=== PATIENT | male | born 1950 | race African-American/Black ===

== ENCOUNTER 2021-05-09 10:12 | Inpatient (IN) | payer OTHER, SELFPAY ==
[2021-05-09] VITALS (15 sets, daily range): BP systolic 149–190; BP diastolic 81–112; PULSE 73–86; RESP 15–20; TEMP 36.4–37.2; O2SAT 96–98; BMI 23.6; BMI 21.5
--- NOTE | 2021-05-09 10:15 | NURSING ---
STROKE ALERT CALLED PRIOR TO ARRIVAL [id number]
--- NOTE | 2021-05-09 10:15 | NURSING ---
NO OLD EKGS
--- NOTE | 2021-05-09 10:16 | EKG12_ITS ---
Test Reason : STROKE Blood Pressure : / mmHG Vent. Rate : 076 BPM Atrial Rate : 076 BPM P-R Int : 164 ms QRS Dur : 084 ms QT Int : 398 ms P-R-T Axes : 068 043 014 degrees QTc Int : 447 ms Normal sinus rhythm Nonspecific ST and T wave abnormality Abnormal ECG Confirmed by CHELSEA HERBERT, FARAZ ([id number]), avid editor KATIE ABRAHAM ([id number]) on 05/11/2021 10:01:56 AM Referred By: FAUSTO Confirmed By:FARAZ TRAN MD
--- NOTE | 2021-05-09 10:16 | RAD_ITS ---
STUDY: X-RAY CHEST REASON FOR EXAM: Male, 70 years old. Neuro deficit, acute, stroke suspected TECHNIQUE: Single AP portable view of the chest. COMPARISON: None. FINDINGS: EKG electrodes are seen. There is evidence of increased markings in the upper lobes with volume loss and retraction of the gilmar suggestive of scarring in both upper lobes worse on the right side. Mild degree of increased markings at the lung bases suggestive of scarring. Normal size heart. Normal mediastinum and gilmar. Normal visualized pulmonary arteries. There is atherosclerotic calcification of the aortic arch with tortuosity. There are diffuse degenerative changes of the visualized thoracic spine. Normal visualized ribs, clavicles, and shoulders. There is no demonstrated abnormality of the visualized soft tissue structures of the upper abdomen. RAD/Chest 1 View IMPRESSION: Increased markings in the upper lobes with retraction of the gilmar and volume loss in the upper lobes suggestive of the upper lobe scarring more prominent on the right side. Electronically Signed: Lion Santos MD at 12:25 EDT , Service support ,
--- NOTE | 2021-05-09 10:16 | CT_ITS ---
STUDY: CT HEAD STROKE PROTOCOL W/O CONTRAST INJECTION REASON FOR EXAM: Male, 70 years old. Neuro deficit, acute, stroke suspected RADIATION DOSAGE (If Supplied By Facility): CTDIvol = ( 44.99 ) mGy, DLP = ( 812.98 ) mGycm TECHNIQUE: Transaxial CT imaging of the brain was performed without administration of intravenous contrast material. Individualized dose optimization techniques were used for this CT. COMPARISON: No relevant priors. FINDINGS: Normal soft tissue structures. Normal calvarium. There is mild cerebral atrophy with widening of the extra-axial spaces and ventricular dilatation. There are areas of decreased attenuation within the white matter tracts of the supratentorial brain, consistent with microvascular disease changes. There is evidence of a 0.7 cm x 3.1 cm focus of edema in the posterior right parietal lobe within the white matter. Correlation with contrast-enhanced CT scan of the brain is recommended. Old lacunar heart and the left basal ganglia. Normal brainstem. Normal cerebellum. There is no intracranial hemorrhage. There are no findings of an acute ischemic infarction. Mild mucosal thickening along the posterior aspect of the left ethmoid sinus. CT/STROKE Brain/Head without Cont IMPRESSION: Chronic involutional changes of the brain. Focal area of deep white matter edema in the posterior right parietal lobe as described. Correlation with the enhanced CT scan is recommended. N.B. : The above Results were Read Back by Lion Santos MD to Steven Tejeda and understanding confirmed on 05/09/2021 10:33:28 (ET). Electronically Signed: Lion Santos MD at 10:34 EDT , Service support ,
--- NOTE | 2021-05-09 10:16 | CT_ITS ---
We are attempting to reach an attending provider to discuss findings. An addendum with communication details will be sent when the communication is complete. STUDY: CTA HEAD AND NECK WITH CONTRAST REASON FOR EXAM: Male, 70 years old. Neuro deficit, acute, stroke suspected RADIATION DOSAGE (If Supplied By Facility): CTDIvol = ( 51.15 ) mGy, DLP = ( 757.26 ) mGycm TECHNIQUE: CT angiography was performed with a multi-detector CT scanner. Data acquisition was obtained from the skull base through the vertex following intravenous administration of IV 100mL [id number]-370. MIP images were reconstructed from the axial data set. Post-processing of the angiographic images was performed, with multiplanar reformation and 3D reconstruction. Individualized dose optimization techniques were used for this CT. COMPARISON: No relevant priors. FINDINGS: Normal bilateral petrous carotid arteries. There is calcified plaque formation of the right cavernous carotid artery, without a cross-sectional luminal stenosis. There is calcified plaque formation of the left cavernous carotid artery, without a cross-sectional luminal stenosis. Normal right A1 segments of the anterior cerebral artery. Normal left A1 segments of the anterior cerebral artery. Normal intact anterior communicating artery (ACOM). Normal bilateral A2 segments of the anterior cerebral arteries. Normal right M1 and M2 segments of the middle cerebral arteries, with a normal M1 bifurcation. Normal left M1 and M2 segments of the middle cerebral arteries, with a normal M1 bifurcation. Normal right posterior communicating artery (PCOM). Normal left posterior communicating artery (PCOM). Normal bilateral vertebral arteries. Normal basilar artery with a normal basilar bifurcation. The visualized bilateral superior cerebellar (SCA) arteries are normal. Normal bilateral P1, P2 and visualized P3 segments of the posterior cerebral arteries. There is no demonstrated aneurysm of the [place]. AORTIC ARCH: There is a mild degree of atherosclerotic calcific plaque formation of the aortic arch and great vessels arising from the aortic arch, without a hemodynamically significant stenosis. There is a normal origin of the brachiocephalic, left common carotid, and left subclavian arteries. RIGHT CAROTID ARTERIES: Normal right common carotid artery (CCA). Normal right common carotid bulb. Normal origin of the right internal carotid (ICA) artery without a hemodynamically significant stenosis. Normal visualized cervical portion of the right internal carotid artery. Normal origin of the right external carotid artery (ECA). LEFT CAROTID ARTERIES: Normal left common carotid artery (CCA). Normal left common carotid bulb. There is moderate atherosclerotic plaque formation of the origin of the left internal carotid artery with an estimated stenosis of 50-69% stenosis. Normal visualized cervical portion of the left internal carotid artery. Normal origin of the left external carotid artery (ECA). VERTEBRAL ARTERIES: There is enhancement within the bilateral vertebral arteries with a small left vertebral artery, and a dominant right vertebral artery. CT/STROKE CTA Head AND Neck W/Con IMPRESSION: Calcific plaque at the origin of the left internal carotid artery causing between 50 and 69% narrowing. Electronically Signed: Lion Santos MD at 10:44 EDT , Service support ,
[2021-05-09 10:37] LABS: Absolute Neutrophil Count 5.8 X10^3/uL (2.0-7.7); Basophil# 0.03 X10^3/uL; Basophil% 0.3 % (0-1); Eosinophil# 0.21 X10^3/uL; Eosinophils% 2.1 % (0-5); Hematocrit 47.2 % (40-54); Hemoglobin 14.3 g/dL (13.0-16.5); Lymphocyte % 36.3 % (19-41); Mean Corp Hgb Conc 30.3 g/dL (32-36); Mean Corpuscular Hgb 22.4 pg (27.0-32.0); Mean Corpuscular Volume 73.9 fL (80-94); Monocyte# 0.41 X10^3/uL; NRBC Flagged by Analyzer 0 % (0-5); Neutrophil # 5.78 X10^3/uL (2.7-7.7); Neutrophil % 56.7 % (47-70); Platelet Count 192 K/mm3 (150-450); RBC Distribution Width CV 17.7 % (11.6-14.6); Red Blood Count 6.39 M/mm3 (4.6-6.2); White Blood Count 10.2 K/mm3 (4.4-11.0)
[2021-05-09 10:44] LABS: Prothrombin Time (Protime)PT. 12.4 SECONDS (11.7-14.9)
[2021-05-09 10:45] LABS: Partial Thromboplast Time 25.3 Seconds (24.1-36.2)
[2021-05-09] MEDS: 0.9% Normal Saline 1,000 ML 100 ML IV (10:49)
[2021-05-09] MEDS: Labetalol (Prefilled) 20 MG/4 ML IV (10:50)
--- NOTE | 2021-05-09 10:57 | NURSING ---
CHEMISTRIES HEMOLIZED
--- NOTE | 2021-05-09 11:00 | CT_ITS ---
STUDY: CT BRAIN WITHOUT CONTRAST REASON FOR EXAM: Male, 70 years old. Stroke RADIATION DOSAGE (If Supplied By Facility): CTDIvol = ( 44.99 ) mGy, DLP = ( 762.36 ) mGycm TECHNIQUE: Transaxial CT imaging of the brain was performed without administration of intravenous contrast material. Individualized dose optimization techniques were used for this CT. COMPARISON: Comparison is made with prior examination done earlier today. FINDINGS: Normal soft tissue structures. Normal calvarium. There is mild cerebral atrophy with widening of the extra-axial spaces and ventricular dilatation. There are areas of decreased attenuation within the white matter tracts of the supratentorial brain, consistent with microvascular disease changes. Stable appearance of the decreased attenuation in the deep white matter of the posterior right parietal lobe. No significant enhancement is seen. This may represent old ischemic insult. Normal brainstem. Normal cerebellum. There is no intracranial hemorrhage. There are no findings of an acute ischemic infarction. Normal visualized paranasal sinuses. CT/Brain/Head without Contrast IMPRESSION: Findings suggestive of old ischemic insult in the deep white matter of the posterior right parietal lobe. Electronically Signed: Lion Santos MD at 12:00 EDT , Service support ,
--- NOTE | 2021-05-09 11:06 | ED.VIS.STROK ---
HPI History of Present Illness Chief Complaint: Neuro S/Sx Informant: patient and EMS Onset/Context/Timing Onset: Today Context: Sudden Onset Timing: Continuous Quality and Location: Positive for Right Arm Weakness, Left Arm Weakness, Right Leg Weakness and Left Leg Weakness Onset: 30 minutes prior to arrival Worsened by: Nothing Relieved by: Nothing Narrative Narrative: Patient presents with headache and confusion that began today at work. EMS reports that this started approximately 30 minutes prior to arrival. Patient states his headache was over the frontal area. Patient states someone gave him some Tylenol but this did not help. Patient was also having some confusion and weakness. Patient states it was both arms and legs that were weak. EMS reports that the patient had some ataxia with hbvegl-je-evge testing. Patient also admits to some blurred vision. PFSH PFSH Medical History Anxiety COPD (chronic obstructive pulmonary disease) Diabetes Hepatitis Hypertension Smoker Home Medications gabapentin 300 mg PO TID 02/24/15 [History Last Taken Unknown] glipizide 8 mg PO DAILY 02/24/15 [History Last Taken Unknown] albuterol 2 puff NASAL Q4H PRN 05/09/21 [History Last Taken Unknown] amlodipine 5 mg PO QHS 05/09/21 [History Last Taken Unknown] aspirin 81 mg PO DAILY 05/09/21 [History Last Taken Unknown] atorvastatin 20 mg PO QHS 05/09/21 [History Last Taken Unknown] budesonide-formoterol [Symbicort] 2 puff INHALATION BID 05/09/21 [History Last Taken Unknown] cyclobenzaprine 10 mg PO TID PRN 05/09/21 [History Last Taken Unknown] losartan 50 mg PO DAILY 05/09/21 [History Last Taken Unknown] mecobalamin (vitamin B12) 500 mcg PO DAILY 05/09/21 [History Last Taken Unknown] metformin 2,000 mg PO DAILY 05/09/21 [History Last Taken Unknown] sildenafil 100 mg PO DAILY PRN 05/09/21 [History Last Taken Unknown] trazodone 25 mg PO QHS 05/09/21 [History Last Taken Unknown] vitamin E 200 unit PO DAILY 05/09/21 [History Last Taken Unknown] Allergy/AdvReac Type Severity Reaction Status Date / Time No Known Allergies Allergy Verified 05/09/21 10:35 Family History (Updated 05/09/21 @ 13:[address] Uche Felix MD) Mother CVA (cerebral vascular accident) Surgical History (Updated 05/09/21 @ 15:13 by Carlene Dyer) Hx of appendectomy Social History Smoking Status: Current every day smoker tobacco type: cigarettes ROS ROS ED Constitutional Constitutional ED: Denies chills or fever(s) Eyes Eyes: Denies blurry vision or change in vision ENT ENT ED: Denies rhinorrhea or sore throat Cardiovascular Cardiovascular: Denies chest pain or palpitations Respiratory/Chest Respiratory/Chest: Denies cough or dyspnea Gastrointestinal Gastrointestinal: Denies nausea or vomiting Genitourinary Genitourinary ED: Denies dysuria or hematuria Musculoskeletal Musculoskeletal: Denies back pain or neck pain Integumentary Denies abscess or rash Neurologic Neurologic: Reports headache(s) and weakness Allergic/Immunologic Allergic/Immunologic ED: Denies mouth swelling or urticaria EXAM Physical Exam Const Vital Signs: 05/09/21 10:13 05/09/21 10:27 05/09/21 10:32 Temperature 98.1 F Temperature Source Temporal Pulse Rate 80 86 Respiratory Rate 16 20 H Blood Pressure 185/112 H 172/111 H Blood Pressure Mean 136 131 Pulse Ox 97 96 Oxygen Delivery Method Room Air Room Air Room Air 05/09/21 10:46 05/09/21 11:30 05/09/21 12:00 Temperature Temperature Source Pulse Rate 77 79 81 Respiratory Rate 15 18 18 Blood Pressure 190/105 H 156/92 H 156/92 H Blood Pressure Mean 133 113 113 Pulse Ox 98 Oxygen Delivery Method Room Air Positive well nourished and well developed General Appearance ED: well developed HEENT Reports moist mucous membranes atraumatic Eyes PERRL and EOMs intact bilaterally Neck supple and no JVD Resp normal respiratory effort and clear to auscultation bilaterally Cardio Rate: regular rate Rhythm: regular rhythm GI normal to inspection, nondistended, normoactive bowel sounds, soft to palpation and non-tender Extremity normal to inspection General Extremety ED: Negative for deformity or tenderness General Extremity: Negative for deformity Neuro CN's II-XII intact bilaterally and no sensory deficits noted Neuro Narrative: Patient is slightly confused on the day. Patient states it is Saturday when it is actually Saturday. [place] Coma Scale: document GCS findings Spontaneous Obeys Commands Oriented 15 Sensorium / Orientation: alert, oriented to person and oriented to place Cranial Nerves: other Patient had slight difficulty with hyxvqf-qd-klic testing bilaterally. Yndd-gh-zvju was intact. Speech: speech normal Motor Exam: strength 5/5 throughout Psych mental status grossly normal STROKE Vital Signs/Narrative: Vital Signs Temp Pulse Resp BP Pulse Ox 05/09/21 12:00 81 18 156/92 H 98 05/09/21 11:30 79 18 156/92 H 05/09/21 10:46 77 15 190/105 H 05/09/21 10:27 86 20 H 172/111 H 96 05/09/21 10:13 98.1 F 80 16 185/112 H 97 MDM MDM MDM Narrative Medical decision making narrative: Initial CT scan of the brain shows a focal area of white matter edema in the posterior right parietal lobe. Correlation with contrast was recommended. CTA of the head neck was obtained. There is no acute intracranial bleeding, aneurysm, or large vessel occlusion. Brain CT was repeated after this after the contrast was used for a CTA. There is an old ischemic insult in the deep white matter of the posterior right parietal lobe. These were interpreted by the radiologist and reviewed by myself. Portable 1 view chest x-ray was obtained. On my interpretation, lung hein showed chronic changes. There is normal cardiac silhouette. Bony thorax is normal. There is no acute process noted. Radiologist also interpreted the x-ray and agrees. EKG was obtained. On my interpretation, it showed a normal sinus rhythm with a rate of 76. HI interval, QRS interval, and QTc intervals were all normal. Stewart was normal. There are nonspecific ST-T wave changes. CBC was within normal limits. PT with INR and PTT were normal. Basic metabolic profile showed a slightly elevated creatinine of 1.35. Glucose was slightly elevated to 79. Stroke neurologist from [facility] evaluated the patient. At that time patient had a NIH score of 0. He did recommend giving the patient TPA. Case was discussed with the hospitalist. Patient will be admitted here. Patient is agreeable with the plan. All questions were answered. Lab Data Attestation: I reviewed the patient's lab results. Labs: Laboratory Results - last 24 hr 05/09/21 05/09/21 05/09/21 10:20 10:20 10:20 WBC 10.2 RBC 6.39 H Hgb 14.3 Hct 47.2 MCV 73.9 L MCH 22.4 L MCHC 30.3 L RDW Std Deviation 43.0 RDW Coeff of Tiffany 17.7 H Plt Count 192 MPV TNP Immature Gran % (Auto) 0.600 Neut % (Auto) 56.7 Lymph % (Auto) 36.3 Tucker % (Auto) 4.0 Eos % (Auto) 2.1 Baso % (Auto) 0.3 Absolute Neuts (auto) 5.8 Absolute Lymphs (auto) 3.70 Nucleated RBC % 0 PT 12.4 INR 1.0 APTT 25.3 Sodium Cancelled Potassium Cancelled Chloride Cancelled Carbon Dioxide Cancelled Anion Gap Cancelled BUN Cancelled Creatinine Cancelled Estim Creat Clear Calc Cancelled Est GFR (MDRD) Af Amer Cancelled Est GFR (MDRD) Non-Af Cancelled BUN/Creatinine Ratio Cancelled Glucose Cancelled Calcium Cancelled Troponin I Cancelled 05/09/21 11:30 WBC RBC Hgb Hct MCV MCH MCHC RDW Std Deviation RDW Coeff of Tiffany Plt Count MPV Immature Gran % (Auto) Neut % (Auto) Lymph % (Auto) Tucker % (Auto) Eos % (Auto) Baso % (Auto) Absolute Neuts (auto) Absolute Lymphs (auto) Nucleated RBC % PT INR APTT Sodium 134 L Potassium 4.2 Chloride 99 Carbon Dioxide 27.0 Anion Gap 8 BUN 19 H Creatinine 1.35 H Estim Creat Clear Calc 55.90 Est GFR (MDRD) Af Amer 67 Est GFR (MDRD) Non-Af 55 L BUN/Creatinine Ratio 14.1 Glucose 279 H Calcium 9.3 Troponin I < 0.015 Radiography Diagnostic Testing: Radiology Impression Brain CT 05/09/21 10:16 IMPRESSION: Chronic involutional changes of the brain. Focal area of deep white matter edema in the posterior right parietal lobe as described. Correlation with the enhanced CT scan is recommended. N.B. : The above Results were Read Back by Lion Santos MD to Steven Tejeda and understanding confirmed on 05/09/2021 10:33:28 (ET). Electronically Signed: Lion Santos MD at 10:34 EDT , Service support , ADDENDUM: 05/09/21 1041 IMPRESSION: Chronic involutional changes of the brain. Focal area of deep white matter edema in the posterior right parietal lobe as described. Correlation with the enhanced CT scan is recommended. N.B. : The above Results were Read Back by Lion Santos MD to Steven Tejeda and understanding confirmed on 05/09/2021 10:33:28 (ET). Electronically Signed: Lion Santos MD at 10:34 EDT , Service support , Chest X-Ray 05/09/21 10:16 IMPRESSION: Increased markings in the upper lobes with retraction of the gilmar and volume loss in the upper lobes suggestive of the upper lobe scarring more prominent on the right side. Electronically Signed: Lion Santos MD at 12:25 EDT , Service support , Head/Neck CTA 05/09/21 10:16 IMPRESSION: Calcific plaque at the origin of the left internal carotid artery causing between 50 and 69% narrowing. Electronically Signed: Lion Santos MD at 10:44 EDT , Service support , ADDENDUM: 05/09/21 1053 IMPRESSION: Calcific plaque at the origin of the left internal carotid artery causing between 50 and 69% narrowing. N.B. : The above Results were Read Back by Lion Santos MD to Dr Nikhil DO, and understanding confirmed on 05/09/2021 10:46:03 (ET). Electronically Signed: Lion Santos MD at 10:44 EDT , Service support , Brain CT 05/09/21 11:00 IMPRESSION: Findings suggestive of old ischemic insult in the deep white matter of the posterior right parietal lobe. Electronically Signed: Lion Santos MD at 12:00 EDT , Service support , EKG Initial EKG: Attestation: I personally reviewed and interpreted this EKG as follows: Interpretation: Sinus Rhythm (76) and Non-Specific ST Changes Prior EKG tracings: not available for review Treatment and Re-Evaluation Vital Sign Attestation:: Vital signs were reviewed prior to admission. They are stable. Stroke Documentation Questions Stroke Team Activated: Yes Reviewed Inclusion/Exclusion criteria: Yes Was Patient considered for Endovascular Intervention?: No IV Alteplase (t-PA) Administered: No Critical Care Time Critical care time (excluding procedures): 30-74 minutes (47), Including time spent:, Discussing w/Patient &/or Family/Railway Engineer, Discussing w/Consultants, Arranging Admission or Transfer and Performing Direct Patient Care at Bedside Discharge Plan Dx/Rx/DC Orders Clinical Impression: CVA (cerebral vascular accident) Disposition Disposition: [facility] Discharge Date/Time: 05/09/21 14:29
--- NOTE | 2021-05-09 11:10 | ED.RN ---
pt to imaging
--- NOTE | 2021-05-09 11:11 | ED.RN ---
pt poor historian. unable to obtain much of a medical history or medication list.
--- NOTE | 2021-05-09 11:31 | ED.RN ---
since bp has decreased, pt is more alert and talkative. still attempting medical hx and med list.
--- NOTE | 2021-05-09 11:47 | ED.RN ---
PT ON PHONE WITH HIS S/O
[2021-05-09 11:55] LABS: Anion Gap 8 (5-15); BUN 19 mg/dL (7-18); BUN/Creat Ratio 14.1 RATIO (10-20); Calcium,Total 9.3 mg/dL (8.5-10.1); Chloride 99 mmol/L (98-107); Creatinine, Serum 1.35 mg/dL (0.70-1.30); EST Glomerular Filtration Rate 55 mL/min (>60); Est Glom Filt Rate - Afr Amer 67 mL/min (>60); Glucose 279 mg/dL (74-106); Potassium 4.2 mmol/L (3.5-5.1); Sodium Level 134 mmol/L (136-145)
--- NOTE | 2021-05-09 12:53 | PCM.HP.STD ---
HPI - General General Date of Admission: 05/09/21 Date of Service: 05/09/21 Chief Complaint: Bilateral upper extremity weakness HPI Narrative MARCELA ALONZO, is a 70 M with past medical history significant for hypertension, diabetes mellitus type 2, who was brought to the emergency department with a suspicion of possible CVA. Patient states his symptoms started with a headache and was given Tylenol by a neighbor this was followed by episode of confusion and weakness involving both upper extremities and some difficulty with gait. A suspicion of stroke was entertained patient was therefore transferred to the ER. In the emergency department his NIH was noted to be 0. CT of the head obtained demonstrated Focal area of deep white matter edema in the posterior right parietal lobe as described.. Admitted to monitored bed for subsequent management [facility] Medical History Diabetes Hypertension Home Medications gabapentin 300 mg PO DAILY 02/24/15 [History Last Taken Unknown] glipizide 5 mg PO BIDAC 02/24/15 [History Last Taken Unknown] albuterol 2 puff OTHER PRN PRN 05/09/21 [History Last Taken Unknown] amlodipine 5 mg PO DAILY 05/09/21 [History Last Taken Unknown] atorvastatin 20 mg PO QHS 05/09/21 [History Last Taken Unknown] budesonide-formoterol [Symbicort] 4 puff INHALATION BID 05/09/21 [History Last Taken Unknown] cyclobenzaprine 10 mg PO TID PRN 05/09/21 [History Last Taken Unknown] losartan 50 mg PO DAILY 05/09/21 [History Last Taken Unknown] metformin 2,000 mg PO QPM 05/09/21 [History Last Taken Unknown] trazodone 25 mg PO QHS 05/09/21 [History Last Taken Unknown] Allergy/AdvReac Type Severity Reaction Status Date / Time No Known Allergies Allergy Verified 05/09/21 10:35 Family History (Updated 05/09/21 @ 13:[address] Uche Felix MD) Mother CVA (cerebral vascular accident) Social History Smoking Status: Current every day smoker tobacco type: cigarettes ROS ROS Narrative GENERAL: denies fever, chills, night sweats, HEENT: headache, sinus congestion, a RESPIRATORY: denies cough, sputum production, CARDIAC: denies chest pain, palpitations, orthopnea, PND GASTROINTESTINAL: denies abdominal pain, nausea, vomiting, melena, GENITOURINARY: denies dysuria, urgency, frequency, heamaturia EXTREMITY: denies swelling MUSCULOSKELETAL: denies current joint pain or tenderness NEUROLOGIC: weakness, tingling HEMATOLOGIC: denies easy bruising and/or hemorrhage INTEGUMENT: denies rashes PSYCHIATRIC: denies suicidal or homicidal ideation Vital Signs Vital Signs Vital Signs: 05/09/21 10:13 05/09/21 10:27 05/09/21 10:32 Temperature 98.1 F Temperature Source Temporal Pulse Rate 80 86 Respiratory Rate 16 20 H Blood Pressure 185/112 H 172/111 H Blood Pressure Mean 136 131 Pulse Ox 97 96 Oxygen Delivery Method Room Air Room Air Room Air 05/09/21 10:46 05/09/21 11:30 05/09/21 12:00 Temperature Temperature Source Pulse Rate 77 79 81 Respiratory Rate 15 18 18 Blood Pressure 190/105 H 156/92 H 156/92 H Blood Pressure Mean 133 113 113 Pulse Ox 98 Oxygen Delivery Method Room Air Weight Weight: 81.1 kg Body Mass Index (BMI) 23.6 Physical Exam Narrative GENERAL: cooperative HEENT: Atraumatic; EYES; Anicteric, Normal Conjunctiva NECK; supple, normal thyroid, RESPIRATORY: Diminished to auscultation CARDIOVASCULAR: Regular S1 S2, GI: soft, normoactive bowel sounds, : No Renal angle tenderness; EXTREMITIES: No edema, no clubbing, MUSCULOSKELETAL: no muscle waisting NEURO: Awake; no lateralizing signs. SKIN: No Rash PSYCH; Flat affect Results Lab / Micro Data Result Diagrams: 05/09/21 10:20 05/09/21 11:30 Labs: Laboratory Results - last 24 hr 05/09/21 05/09/21 05/09/21 10:20 10:20 10:20 WBC 10.2 RBC 6.39 H Hgb 14.3 Hct 47.2 MCV 73.9 L MCH 22.4 L MCHC 30.3 L RDW Std Deviation 43.0 RDW Coeff of Tiffany 17.7 H Plt Count 192 MPV TNP Immature Gran % (Auto) 0.600 Neut % (Auto) 56.7 Lymph % (Auto) 36.3 [place] % (Auto) 4.0 Eos % (Auto) 2.1 Baso % (Auto) 0.3 Absolute Neuts (auto) 5.8 Absolute Lymphs (auto) 3.70 Nucleated RBC % 0 PT 12.4 INR 1.0 APTT 25.3 Sodium Cancelled Potassium Cancelled Chloride Cancelled Carbon Dioxide Cancelled Anion Gap Cancelled BUN Cancelled Creatinine Cancelled Estim Creat Clear Calc Cancelled Est GFR (MDRD) Af Amer Cancelled Est GFR (MDRD) Non-Af Cancelled BUN/Creatinine Ratio Cancelled Glucose Cancelled Calcium Cancelled Troponin I Cancelled 05/09/21 11:30 WBC RBC Hgb Hct MCV MCH MCHC RDW Std Deviation RDW Coeff of Tiffany Plt Count MPV Immature Gran % (Auto) Neut % (Auto) Lymph % (Auto) [place] % (Auto) Eos % (Auto) Baso % (Auto) Absolute Neuts (auto) Absolute Lymphs (auto) Nucleated RBC % PT INR APTT Sodium 134 L Potassium 4.2 Chloride 99 Carbon Dioxide 27.0 Anion Gap 8 BUN 19 H Creatinine 1.35 H Estim Creat Clear Calc 55.90 Est GFR (MDRD) Af Amer 67 Est GFR (MDRD) Non-Af 55 L BUN/Creatinine Ratio 14.1 Glucose 279 H Calcium 9.3 Troponin I < 0.[address] 05/09/21 10:16 IMPRESSION: Chronic involutional changes of the brain. Focal area of deep white matter edema in the posterior right parietal lobe as described. Correlation with the enhanced CT scan is recommended. N.B. : The above Results were Read Back by Lion Santos MD to Steven Tejeda and understanding confirmed on 05/09/2021 10:33:28 (ET). Electronically Signed: Lion Santos MD at 10:34 EDT , Service support , ADDENDUM: 05/09/21 1041 IMPRESSION: Chronic involutional changes of the brain. Focal area of deep white matter edema in the posterior right parietal lobe as described. Correlation with the enhanced CT scan is recommended. N.B. : The above Results were Read Back by Lion Santos MD to Steven Tejeda and understanding confirmed on 05/09/2021 10:33:28 (ET). Electronically Signed: Lion Santos MD at 10:34 EDT , Service support , Chest X-Ray 05/09/21 10:16 IMPRESSION: Increased markings in the upper lobes with retraction of the gilmar and volume loss in the upper lobes suggestive of the upper lobe scarring more prominent on the right side. Electronically Signed: Lion Santos MD at 12:25 EDT , Service support , Head/Neck CTA 05/09/21 10:16 IMPRESSION: Calcific plaque at the origin of the left internal carotid artery causing between 50 and 69% narrowing. Electronically Signed: Lion Santos MD at 10:44 EDT , Service support , ADDENDUM: 05/09/21 1053 IMPRESSION: Calcific plaque at the origin of the left internal carotid artery causing between 50 and 69% narrowing. N.B. : The above Results were Read Back by Lion Santos MD to Dr Nikhil DO, and understanding confirmed on 05/09/2021 10:46:03 (ET). Electronically Signed: Lion Santos MD at 10:44 EDT , Service support , Brain CT 05/09/21 11:00 IMPRESSION: Findings suggestive of old ischemic insult in the deep white matter of the posterior right parietal lobe. Electronically Signed: Lion Santos MD at 12:00 EDT , Service support , Assessment & Plan Assessment/Plan (1) CVA (cerebral vascular accident): PLAN: Patient is a 70-year-old gentleman who presented with multiple neurological symptoms including bilateral upper and lower extremity weakness confusion and ataxia. Imaging studies obtained on admission demonstrated Findings suggestive of old ischemic insult in the deep white matter of the posterior right parietal lobe. Admitted to monitored bed for subsequent management 1. Suspected CVA ?Imaging studies demonstrated Focal area of deep white matter edema in the posterior right parietal lobe as described.. Admitted to a monitored bed MRI of the brain without contrast ordered also ordered CTA of the head and neck. Patient started on aspirin and statin therapy 2. Acute hypertensive emergency ?Patient was started on nicardipine drip in the ED discontinued in view of the underlying suspicion of ischemic stroke. Subsequent course of action will depend on findings on MRI 3. Diabetes mellitus type II -patient's oral hypoglycemics held. Placed on long acting insulin, Accu-Cheks a.c. and at bedtime and covered with sliding scale insulin 4. Dyslipidemia -Patient is on statin therapy, continued at home dose 5. COPD ?Aerosol treatments as needed 6. Diabetic polyneuropathy ?Patient is on gabapentin did continue 7. Tobacco dependence - Counseled on cessation, offered nicotine patch for tobacco cravings 8. DVT prophylaxis - On enoxaparin Charges/Coding Visit Charges Inpatient E&M: 13721 Init Hosp L3
--- NOTE | 2021-05-09 13:32 | ED.RN ---
PT AMBULATED FOR CHARGE NURSE TO RESTROOM.
--- NOTE | 2021-05-09 13:36 | NURSING ---
CALLED [facility], TALKED TO RICA SHE TOOK INFO ABOUT ADMIT. ONLY HAS [facility]
--- NOTE | 2021-05-09 14:41 | MRI_ITS ---
STUDY: MRI BRAIN WITHOUT CONTRAST REASON FOR EXAM: Male, 70 years old. cva TECHNIQUE: Standardized multiplanar fat and water weighted pulse sequences were obtained. Motion limited exam. COMPARISON: CT brain 05/09/2021 FINDINGS: There is mild cerebral atrophy with widening of the extra-axial spaces and ventricular dilatation. There are multiple white matter hyperintensities, distributed throughout the deep white matter tracts of the cerebral hemispheres, consistent with moderate chronic white matter ischemic changes. Restricted diffusion right posterior parietal lobe. Normal bilateral basal ganglia. Normal thalami. There is no extra-axial fluid accumulation. Normal flow voids within the major intracranial circulation suggesting patency by spin echo criteria. Normal sella turcica, pituitary gland, infundibular stalk, optic chiasm and hypothalamus. Normal tectal plate and pineal gland. Normal midbrain, ricardo and medulla. Remote lacunar infarct right cerebellum. Normal basal cisterns. Normal bilateral temporal bones. Normal bilateral internal auditory canals. No demonstrated orbital abnormality, within the constraints of a routine brain study. Normal visualized paranasal sinuses. Normal calvarium and skull base. Normal visualized soft tissue structures. Normal visualized upper cervical spine. IMPRESSION: Acute infarct right posterior parietal lobe. Involutional changes of the brain, as described above. Electronically Signed: Tae Biggs MD at 21:32 EDT , Service support , MRI/Brain without Contrast
[2021-05-09] MEDS: 0.9% Normal Saline 1,000 ML 125 ML IV ×2 (15:00→23:27)
[2021-05-09 15:22] LABS: AST(SGOT) 13 U/L (15-37); Alanine Aminotransfer ALT/SGPT 13 U/L (16-61); Albumin, Serum 3.7 g/dL (3.2-5.0); Alkaline Phosphatase 125 U/L (45-117); Bilirubin, Direct 0.14 mg/dL (0.00-0.30); Globulin 3.4 g/dL (2.2-4.2); Protein, Total 7.1 g/dL (6.4-8.2); Thyroid Stim Hormone (TSH) 0.88 uIU/mL (0.358-3.74)
[2021-05-09] MEDS: Enoxaparin 40 MG/0.4 ML Syringe SC (15:28)
[2021-05-09] MEDS: Losartan Potassium 50 MG Tablet PO (15:28)
[2021-05-09] MEDS: Albuterol 2.5 MG/3 ML VIAL.NEB. INHALATION ×2 (15:36→18:37)
--- NOTE | 2021-05-09 16:00 | EX.NTREPO ---
Medical Nutrition Therapy - History Nutrition Services has been consulted to:: Manage nutrient details of diet order Current diet/nutrition support order:: 1800 calorie; cardiac--intake to be established. 120ml glucerna shake 4 times per day w/ medpass - Anthropometric Measurements Height:: 6 ft 1 in Weight:: 74 kg Body Mass Index (BMI):: 21.5 - Relevant Labs Relevant Labs:: RBC 6.39 M/mm3 (4.6-6.2) H 05/09/21 10:20 MCV 73.9 fL (80-94) L 05/09/21 10:20 MCH 22.4 pg (27.0-32.0) L 05/09/21 10:20 MCHC 30.3 g/dL (32-36) L 05/09/21 10:20 RDW Coeff of Tiffany 17.7 % (11.6-14.6) H 05/09/21 10:20 Sodium 134 mmol/L (136-145) L 05/09/21 11:30 BUN 19 mg/dL (7-18) H 05/09/21 11:30 Creatinine 1.35 mg/dL (0.70-1.30) H 05/09/21 11:30 Est GFR (MDRD) Non-Af 55 mL/min (>60) L 05/09/21 11:30 Glucose 279 mg/dL (74-106) H 05/09/21 11:30 AST 13 U/L (15-37) L 05/09/21 14:37 ALT 13 U/L (16-61) L 05/09/21 14:37 Alkaline Phosphatase 125 U/L (45-117) H 05/09/21 14:37 - Assessment Food and Nutrient Intake: PO to be established; pt was NPO but, passed dysphagia screening. Pt reports UBW~180 lbs and able to confirm with EMR wt about 2-3 months ago was 184 lbs; calculated~10-11% wt loss which is significant for severe protein/calorie malnutrition especially given decreased oral intake and meeting less than 50-75% estimated nutrition needs PO x past 2-4 months. Pt does not seem to exhibit muscle/fat wasting -NFPA. - Nutrition Diagnosis: Clinical Problem Chronic Disease or Condition Related Malnutrition Clinical Problem - Etiology: Severe protein/calorie malnutrition in the context of chronic disease related to overall inadequate oral intake and increased energy expenditure Clinical Problem - Signs/Symptoms: as evidenced by ~10-11% wt loss over the last 2-3 months and meeting less than 50-75% estimated nutrition needs over past 2-3 months. Status: Active Problem - Protein Calorie Malnutrition Evidence of Malnutrition Exists: Yes Severe Protein Calorie Malnutrition:: Chronic - Nutrition Intervention Nutrition Prescription: Estimated nutrition needs~8215-4822 kcal (25 kcal/Kg +250 kcal) and ~90-100 gm pro (1.3 gm pro/Kg) per day. Estimated fluid needs~2200 ml/day (30ml/Kg). - Food / Nutrient Delivery Interventions Summary of nutrition intervention:: Adjust diet order, Provide oral nutrition supplement Nutrition support ordered as / adjusted to:: Will change diet to Carbohydrate-Controlled/Cardiac---without caloric restriction given recent significant weight loss meeting severe malnutrition criteria. Continue 120ml Glucerna Shake 4 times per day w/ medpass as ordered to provide additional 440 kcal and 20 gm pro per day. Monitor PO, wt, labs and offer additional ONS as needed once intake established at meals. Nutrition education provided?: No - MNT Monitoring Active Nutrition Patient: Yes Nutrition Status: Requires Follow Up 3-5 Days
[2021-05-09 16:35] LABS: Bedside Glucose 244 mg/dL (70-110)
[2021-05-09] MEDS: Insulin Lispro 100 UNIT/ML INSULN.PEN SC ×2 (16:47→21:24)
[2021-05-09] MEDS: Glucerna Shake 120 ML LIQUID PO ×2 (16:48→21:34)
[2021-05-09 16:59] LABS: Amphetamine Urine VISTA NEGATIVE (<1000 ng/mL); Barbiturate Urine VISTA NEGATIVE (< 200 ng/mL); Benzodiazepine Urine VISTA NEGATIVE (< 200 ng/mL); Cocaine Urine VISTA POSITIVE (< 300 ng/mL); Ecstacy Urine VISTA NEGATIVE (< 500 ng/mL); Methadone Urine VISTA NEGATIVE (< 300 ng/mL); PCP Urine VISTA NEGATIVE (< 25 ng/mL); THC Urine VISTA POSITIVE (< 50 ng/mL); Vista UDS pH Range 6
[2021-05-09] MEDS: Budesonide Respules 0.5 MG/2 ML AMPUL.NEB. INHALATION (18:37)
--- NOTE | 2021-05-09 19:38 | CPS ---
After SECURITY PATROL DRIVER placed aerosol mask on patient and the nebulizer came off with patient movement. This resulted in the medication spilling from cup. For this reason aerosol Meds albuterol and pulmicort had to be pulled twice. Patient was then given albuterol and pulmicort tx.
[2021-05-09] MEDS: Atorvastatin Calcium 20 MG Tablet PO (21:22)
[2021-05-09] MEDS: traZODone 50 MG Tablet 25 MG PO (21:22)
[2021-05-09 21:35] LABS: Bedside Glucose 318 mg/dL (70-110)
[2021-05-10] VITALS (14 sets, daily range): BP systolic 132–177; BP diastolic 71–96; PULSE 72–95; RESP 16–19; TEMP 36.4–37.5; O2SAT 94–99; BMI 21.5
[2021-05-10] MEDS: 0.9% Normal Saline 1,000 ML 125 ML IV ×3 (06:30→22:01)
[2021-05-10] MEDS: Insulin Lispro 100 UNIT/ML INSULN.PEN SC ×4 (06:33→21:06)
[2021-05-10 06:40] LABS: Bedside Glucose 215 mg/dL (70-110)
[2021-05-10] MEDS: Albuterol 2.5 MG/3 ML VIAL.NEB. INHALATION ×3 (06:46→19:01)
[2021-05-10] MEDS: Budesonide Respules 0.5 MG/2 ML AMPUL.NEB. INHALATION ×2 (06:46→19:01)
[2021-05-10 07:05] LABS: Absolute Lymphocyte Count 3.76 X10^3/uL (0.83-4.51); Absolute Neutrophil Count 2.6 X10^3/uL (2.0-7.7); Basophil# 0.02 X10^3/uL; Basophil% 0.3 % (0-1); Eosinophil# 0.22 X10^3/uL; Eosinophils% 3.2 % (0-5); Hematocrit 44.8 % (40-54); Hemoglobin 13.6 g/dL (13.0-16.5); Lymphocyte # 3.76 X10^3/ul (0.83-4.51); Lymphocyte % 54.3 % (19-41); Mean Corp Hgb Conc 30.4 g/dL (32-36); Mean Corpuscular Hgb 22.2 pg (27.0-32.0); Mean Corpuscular Volume 73.1 fL (80-94); Monocyte# 0.35 X10^3/uL; Monocyte% 5.1 % (0-10); NRBC Flagged by Analyzer 0 % (0-5); Neutrophil # 2.55 X10^3/uL (2.7-7.7); Neutrophil % 36.8 % (47-70); Platelet Count 180 K/mm3 (150-450); RBC Distribution Width CV 17.2 % (11.6-14.6); RBC Distribution Width SD 41.8 fl (35.1-43.9); Red Blood Count 6.13 M/mm3 (4.6-6.2); White Blood Count 6.9 K/mm3 (4.4-11.0)
[2021-05-10 07:09] LABS: Anion Gap 5 (5-15); BUN 14 mg/dL (7-18); BUN/Creat Ratio 13.6 RATIO (10-20); Calcium,Total 8.7 mg/dL (8.5-10.1); Chloride 108 mmol/L (98-107); Cholesterol 137 mg/dL (200); Creatinine, Serum 1.03 mg/dL (0.70-1.30); EST Glomerular Filtration Rate 75 mL/min (>60); Est Glom Filt Rate - Afr Amer 91 mL/min (>60); Estimated Creatinine Clearance 67.85 ml/min; Glucose 216 mg/dL (74-106); High Density Lipoprotein 37 mg/dL; Magnesium 1.8 mg/dL (1.6-2.6); Potassium 3.7 mmol/L (3.5-5.1); Sodium Level 138 mmol/L (136-145); Triglycerides 263 mg/dL; Very Low Density Lipoprotein 53 mg/dL (5-40)
--- NOTE | 2021-05-10 08:12 | TELEMED_ITS ---
[facility] has confirmed receipt of a request for visit. This document confirms receipt of the order initiating the consult. To find the results of the consultation, please view the patient's reports for the scanned Telemed Consult.
[2021-05-10] MEDS: Enoxaparin 40 MG/0.4 ML Syringe SC (08:57)
[2021-05-10] MEDS: Losartan Potassium 50 MG Tablet PO (08:57)
[2021-05-10] MEDS: amLODIPine 5 MG Tablet PO (08:58)
[2021-05-10] MEDS: Glucerna Shake 120 ML LIQUID PO ×4 (08:58→21:11)
[2021-05-10] MEDS: Aspirin 81 MG TAB.CHEW PO (08:58)
[2021-05-10] MEDS: Gabapentin 300 MG Capsule PO (08:58)
--- NOTE | 2021-05-10 09:24 | PN.HOSP_ITS ---
Subjective Subjective Patient is a 70-year-old gentleman who presented with multiple neurological symptoms including bilateral upper and lower extremity weakness confusion and ataxia. Imaging studies obtained on admission demonstrated Findings suggestive of old ischemic insult in the deep white matter of the posterior right parietal lobe. Admitted to monitored bed for subsequent management MRI demonstrated Acute infarct right posterior parietal lobe. CTA of the head and neck showed Calcific plaque at the origin of the left internal carotid artery causing between 50 and 69% narrowing. Objective Data Objective Data Vital Signs: Vital Signs Temp Pulse Resp BP Pulse Ox 98.5 F 84 18 167/92 H 97 05/10/21 08:35 05/10/21 08:35 05/10/21 08:35 05/10/21 08:35 05/10/21 08:35 Oxygen Delivery Method Room Air Weight: 74 kg Body Mass Index (BMI) 21.5 Intake & Output: Intake and Output for Last 24 Hours 05/08/21 05/09/21 05/10/21 23:59 23:59 23:59 Intake Total 881.25 / 881.25 Balance 881.25 / 881.25 Lab / Micro Data Result Diagrams: 05/10/21 06:25 05/10/21 06:25 Labs: Laboratory Results - last 24 hr 05/09/21 05/09/21 05/09/21 10:20 10:20 10:20 WBC 10.2 RBC 6.39 H Hgb 14.3 Hct 47.2 MCV 73.9 L MCH 22.4 L MCHC 30.3 L RDW Std Deviation 43.0 RDW Coeff of Tiffany 17.7 H Plt Count 192 MPV TNP Immature Gran % (Auto) 0.600 Neut % (Auto) 56.7 Lymph % (Auto) 36.3 [place] % (Auto) 4.0 Eos % (Auto) 2.1 Baso % (Auto) 0.3 Absolute Neuts (auto) 5.8 Absolute Lymphs (auto) 3.70 Nucleated RBC % 0 PT 12.4 INR 1.0 APTT 25.3 Sodium Cancelled Potassium Cancelled Chloride Cancelled Carbon Dioxide Cancelled Anion Gap Cancelled BUN Cancelled Creatinine Cancelled Estim Creat Clear Calc Cancelled Est GFR (MDRD) Af Amer Cancelled Est GFR (MDRD) Non-Af Cancelled BUN/Creatinine Ratio Cancelled Glucose Cancelled Calcium Cancelled Magnesium Total Bilirubin Direct Bilirubin AST ALT Alkaline Phosphatase Troponin I Cancelled Total Protein Albumin Globulin Triglycerides Cholesterol LDL Cholesterol VLDL Cholesterol HDL Cholesterol TSH Urine Opiates Screen Urine Methadone Screen Ur Barbiturates Screen Ur Phencyclidine Scrn Ur Amphetamines Screen U Methamphetamin-MDMA U Benzodiazepines Scrn Urine Cocaine Screen U Cannabinoids Screen Ur Drug Screen Comment POC Glucose 05/09/21 05/09/21 05/09/21 11:30 14:37 16:29 WBC RBC Hgb Hct MCV MCH MCHC RDW Std Deviation RDW Coeff of Tiffany Plt Count MPV Immature Gran % (Auto) Neut % (Auto) Lymph % (Auto) [place] % (Auto) Eos % (Auto) Baso % (Auto) Absolute Neuts (auto) Absolute Lymphs (auto) Nucleated RBC % PT INR APTT Sodium 134 L Potassium 4.2 Chloride 99 Carbon Dioxide 27.0 Anion Gap 8 BUN 19 H Creatinine 1.35 H Estim Creat Clear Calc 55.90 Est GFR (MDRD) Af Amer 67 Est GFR (MDRD) Non-Af 55 L BUN/Creatinine Ratio 14.1 Glucose 279 H Calcium 9.3 Magnesium Total Bilirubin 0.40 Direct Bilirubin 0.14 AST 13 L ALT 13 L Alkaline Phosphatase 125 H Troponin I < 0.015 < 0.015 Total Protein 7.1 Albumin 3.7 Globulin 3.4 Triglycerides Cholesterol LDL Cholesterol VLDL Cholesterol HDL Cholesterol TSH 0.88 Urine Opiates Screen Urine Methadone Screen Ur Barbiturates Screen Ur Phencyclidine Scrn Ur Amphetamines Screen U Methamphetamin-MDMA U Benzodiazepines Scrn Urine Cocaine Screen U Cannabinoids Screen Ur Drug Screen Comment POC Glucose 244 H 05/09/21 05/09/21 05/10/21 16:30 21:24 06:25 WBC 6.9 RBC 6.13 Hgb 13.6 Hct 44.8 MCV 73.1 L MCH 22.2 L MCHC 30.4 L RDW Std Deviation 41.8 RDW Coeff of Tiffany 17.2 H Plt Count 180 MPV 12.0 Immature Gran % (Auto) 0.300 Neut % (Auto) 36.8 L Lymph % (Auto) 54.3 H [place] % (Auto) 5.1 Eos % (Auto) 3.2 Baso % (Auto) 0.3 Absolute Neuts (auto) 2.6 Absolute Lymphs (auto) 3.76 Nucleated RBC % 0 PT INR APTT Sodium Potassium Chloride Carbon Dioxide Anion Gap BUN Creatinine Estim Creat Clear Calc Est GFR (MDRD) Af Amer Est GFR (MDRD) Non-Af BUN/Creatinine Ratio Glucose Calcium Magnesium Total Bilirubin Direct Bilirubin AST ALT Alkaline Phosphatase Troponin I Total Protein Albumin Globulin Triglycerides Cholesterol LDL Cholesterol VLDL Cholesterol HDL Cholesterol TSH Urine Opiates Screen NEGATIVE Urine Methadone Screen NEGATIVE Ur Barbiturates Screen NEGATIVE Ur Phencyclidine Scrn NEGATIVE Ur Amphetamines Screen NEGATIVE U Methamphetamin-MDMA NEGATIVE U Benzodiazepines Scrn NEGATIVE Urine Cocaine Screen POSITIVE H U Cannabinoids Screen POSITIVE H Ur Drug Screen Comment POC Glucose 318 H 05/10/21 05/10/21 06:25 06:32 WBC RBC Hgb Hct MCV MCH MCHC RDW Std Deviation RDW Coeff of Tiffany Plt Count MPV Immature Gran % (Auto) Neut % (Auto) Lymph % (Auto) [place] % (Auto) Eos % (Auto) Baso % (Auto) Absolute Neuts (auto) Absolute Lymphs (auto) Nucleated RBC % PT INR APTT Sodium 138 Potassium 3.7 Chloride 108 H Carbon Dioxide 25.0 Anion Gap 5 BUN 14 Creatinine 1.03 Estim Creat Clear Calc 67.85 Est GFR (MDRD) Af Amer 91 Est GFR (MDRD) Non-Af 75 BUN/Creatinine Ratio 13.6 Glucose 216 H Calcium 8.7 Magnesium 1.8 Total Bilirubin Direct Bilirubin AST ALT Alkaline Phosphatase Troponin I Total Protein Albumin Globulin Triglycerides 263 H Cholesterol 137 LDL Cholesterol 47 VLDL Cholesterol 53 H HDL Cholesterol 37 L TSH Urine Opiates Screen Urine Methadone Screen Ur Barbiturates Screen Ur Phencyclidine Scrn Ur Amphetamines Screen U Methamphetamin-MDMA U Benzodiazepines Scrn Urine Cocaine Screen U Cannabinoids Screen Ur Drug Screen Comment POC Glucose 215 H Radiography Diagnostic Testing: Radiology Impression Brain CT 05/09/21 10:16 IMPRESSION: Chronic involutional changes of the brain. Focal area of deep white matter edema in the posterior right parietal lobe as described. Correlation with the enhanced CT scan is recommended. N.B. : The above Results were Read Back by Lion Santos MD to Steven Tejeda and understanding confirmed on 05/09/2021 10:33:28 (ET). Electronically Signed: Lion Santos MD at 10:34 EDT , Service support , ADDENDUM: 05/09/21 1041 IMPRESSION: Chronic involutional changes of the brain. Focal area of deep white matter edema in the posterior right parietal lobe as described. Correlation with the enhanced CT scan is recommended. N.B. : The above Results were Read Back by Lion Santos MD to Steven Tejeda and understanding confirmed on 05/09/2021 10:33:28 (ET). Electronically Signed: Lion Santos MD at 10:34 EDT , Service support , Chest X-Ray 05/09/21 10:16 IMPRESSION: Increased markings in the upper lobes with retraction of the gilmar and volume loss in the upper lobes suggestive of the upper lobe scarring more prominent on the right side. Electronically Signed: Lion Santos MD at 12:25 EDT , Service support , Head/Neck CTA 05/09/21 10:16 IMPRESSION: Calcific plaque at the origin of the left internal carotid artery causing between 50 and 69% narrowing. Electronically Signed: Lion Santos MD at 10:44 EDT , Service support , ADDENDUM: 05/09/21 1053 IMPRESSION: Calcific plaque at the origin of the left internal carotid artery causing between 50 and 69% narrowing. N.B. : The above Results were Read Back by Lion Santos MD to Dr Nikhil DO, and understanding confirmed on 05/09/2021 10:46:03 (ET). Electronically Signed: Lion Santos MD at 10:44 EDT , Service support , Brain CT 05/09/21 11:00 IMPRESSION: Findings suggestive of old ischemic insult in the deep white matter of the posterior right parietal lobe. Electronically Signed: Lion Santos MD at 12:00 EDT , Service support , Brain MRI 05/09/21 14:41 Physical Exam Narrative GENERAL: cooperative HEENT: Atraumatic; EYES; Anicteric, Normal Conjunctiva NECK; supple, normal thyroid, RESPIRATORY: Diminished to auscultation CARDIOVASCULAR: Regular S1 S2, GI: soft, normoactive bowel sounds, : No Renal angle tenderness; EXTREMITIES: No edema, no clubbing, MUSCULOSKELETAL: no muscle waisting NEURO: Awake; no lateralizing signs. SKIN: No Rash PSYCH; Flat affect Assessment & Plan Assessment/Plan (1) CVA (cerebral vascular accident): PLAN: Patient is a 70-year-old gentleman who presented with multiple neurological symptoms including bilateral upper and lower extremity weakness confusion and ataxia. Imaging studies obtained on admission demonstrated Findings suggestive of old ischemic insult in the deep white matter of the posterior right parietal lobe. Admitted to monitored bed for subsequent management 1. Suspected CVA ?Imaging studies demonstrated Focal area of deep white matter edema in the posterior right parietal lobe as described.. Admitted to a monitored bed MRI of the brain without contrast ordered also ordered CTA of the head and neck. Patient started on aspirin and statin therapy -05/10/2021; MRI demonstrated Acute infarct right posterior parietal lobe. CTA of the head and neck showed Calcific plaque at the origin of the left internal carotid artery causing between 50 and 69% narrowing.. Consult placed to [facility]y for follow-up in vascular surgery regarding patient left carotid artery stenosis. 2. Acute hypertensive emergency ?Patient was started on nicardipine drip in the ED discontinued in view of the underlying suspicion of ischemic stroke. Subsequent course of action will depend on findings on MRI -05/10/2021. Patient MRI demonstrated acute CVA. We will therefore allow for permissive hypertension 3. Diabetes mellitus type II -patient's oral hypoglycemics held. Placed on long acting insulin, Accu-Cheks a.c. and at bedtime and covered with sliding scale insulin 4. Dyslipidemia -Patient is on statin therapy, continued at home dose 5. COPD ?Aerosol treatments as needed 6. Diabetic polyneuropathy ?Patient is on gabapentin did continue 7. Tobacco dependence - Counseled on cessation, offered nicotine patch for tobacco cravings 8. DVT prophylaxis - On enoxaparin Charges/Coding Visit Charges Inpatient E&M: 47881 Subs Hosp L3
--- NOTE | 2021-05-10 11:12 | NURSING ---
Gave report to Garret ROMERO
--- NOTE | 2021-05-10 11:20 | CASEMGMT ---
HEATHER HUDSON assessment: Face to Face with patient for initial transition planning/care coordination assessment. HEATHER HUDSON introduced self and role at [facility], pt voices understanding and consents to assessment. Pt is sitting up in bed in no distress. Pt is A/Ox4 and answers all questions appropriately. Care providers, pharmacy, and demographics verified/updated. Presentation: Headache, confusion, bilat upper and lower ext weakness, blurred vision Admitting dx: CVA PCP: [facility]-Dr. 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 LNOK: Pedro Chandra, brother; Zita Machado, friend Living Arrangements: Pt lives with friend in 1 story apartment with no steps and states no concerns at home. Pt states is independent with ADL's. Transportation: Pt states drives self and states no transportation concerns. Pt advised not to be driving d/t continued blurred vision until he f/u with eye dr, voices understanding. DME/HHC: Pt states has a cane and grab bars. Pt states no need for any further DME. Pt states has had HHC in the past but has not been to SNF. Pt states no concerns with going home at time of discharge. Pt is retired. Pt states smokes 1/2pk cigarettes daily and seldom drinks ETOH. Pt does admit to marijuana use and states he 'unknowingly' got some cocaine. Pt voices no further concerns/needs. CM to follow for therapy notes and any further discharge planning/needs. Advised pt to ask for CM if any further questions/concerns/needs arise, voices understanding. Pt Goal: Home Plan: [place] HEATHER HUDSON
--- NOTE | 2021-05-10 12:08 | PCM.CONS.GEN ---
Assessment & Plan Assessment/Plan (1) CVA (cerebral vascular accident): PLAN: 1. Stroke. MRI with the right infarct. His right carotid appears normal on CTA. He has an asymptomatic left carotid stenosis. Continue aspirin. We will plan on seeing him back in 1 year and follow with carotid ultrasound of carotid arteries. HPI Consult Data Date of Consult: 05/10/21 HPI Narrative HPI Narrative: ITZEL ALONZO, is a 70 M who presents with weakness. Work-up was found to have a remote stroke on a CT but then had the MRI that showed a right parietal infarct. Had CT of the carotids that showed the right carotid normal. Left carotid does have moderate 50% stenosis. This is an asymptomatic stenosis. Patient does not recall any prior stroke. No coronary history. Stroke as listed above. Patient smokes few cigarettes a day. Hypertension on meds. Diabetes on meds. Hyperlipidemia on a statin. He was on aspirin. No PAD symptoms. [facility] Medical History Anxiety COPD (chronic obstructive pulmonary disease) Diabetes Hepatitis Hypertension Smoker Home Medications gabapentin 300 mg PO TID 02/24/15 [History Last Taken Unknown] glipizide 8 mg PO DAILY 02/24/15 [History Last Taken Unknown] albuterol 2 puff NASAL Q4H PRN 05/09/21 [History Last Taken Unknown] amlodipine 5 mg PO QHS 05/09/21 [History Last Taken Unknown] aspirin 81 mg PO DAILY 05/09/21 [History Last Taken Unknown] atorvastatin 20 mg PO QHS 05/09/21 [History Last Taken Unknown] budesonide-formoterol [Symbicort] 2 puff INHALATION BID 05/09/21 [History Last Taken Unknown] cyclobenzaprine 10 mg PO TID PRN 05/09/21 [History Last Taken Unknown] losartan 50 mg PO DAILY 05/09/21 [History Last Taken Unknown] mecobalamin (vitamin B12) 500 mcg PO DAILY 05/09/21 [History Last Taken Unknown] metformin 2,000 mg PO DAILY 05/09/21 [History Last Taken Unknown] sildenafil 100 mg PO DAILY PRN 05/09/21 [History Last Taken Unknown] trazodone 25 mg PO QHS 05/09/21 [History Last Taken Unknown] vitamin E 200 unit PO DAILY 05/09/21 [History Last Taken Unknown] Allergy/AdvReac Type Severity Reaction Status Date / Time No Known Allergies Allergy Verified 05/09/21 10:35 Family History Mother CVA (cerebral vascular accident) Surgical History Hx of appendectomy Social History Smoking Status: Current every day smoker tobacco type: cigarettes ROS ROS Narrative All negative for full 10 point review except for what is in the HPI Physical Exam Narrative Patient awake alert oriented No apparent distress Afebrile vital signs stable HEENT: Normocephalic atraumatic Pupils equal reactive Moist mucous membrane Neck supple No bruits Chest nontender Lungs clear Heart appears regular Abdomen soft Extremities palpable radial pulses Appears palpable pedal pulses Moves all extremities well x4 No significant weakness appreciated Lab / Micro Data Result Diagrams: 05/10/21 06:25 05/10/21 06:25 Labs: Laboratory Results - last 24 hr 05/09/21 05/09/21 05/09/21 14:37 16:29 16:30 WBC RBC Hgb Hct MCV MCH MCHC RDW Std Deviation RDW Coeff of Tiffany Plt Count MPV Immature Gran % (Auto) Neut % (Auto) Lymph % (Auto) Gregory % (Auto) Eos % (Auto) Baso % (Auto) Absolute Neuts (auto) Absolute Lymphs (auto) Nucleated RBC % Sodium Potassium Chloride Carbon Dioxide Anion Gap BUN Creatinine Estim Creat Clear Calc Est GFR (MDRD) Af Amer Est GFR (MDRD) Non-Af BUN/Creatinine Ratio Glucose Calcium Magnesium Total Bilirubin 0.40 Direct Bilirubin 0.14 AST 13 L ALT 13 L Alkaline Phosphatase 125 H Troponin I < 0.015 Total Protein 7.1 Albumin 3.7 Globulin 3.4 Triglycerides Cholesterol LDL Cholesterol VLDL Cholesterol HDL Cholesterol TSH 0.88 Urine Opiates Screen NEGATIVE Urine Methadone Screen NEGATIVE Ur Barbiturates Screen NEGATIVE Ur Phencyclidine Scrn NEGATIVE Ur Amphetamines Screen NEGATIVE U Methamphetamin-MDMA NEGATIVE U Benzodiazepines Scrn NEGATIVE Urine Cocaine Screen POSITIVE H U Cannabinoids Screen POSITIVE H Ur Drug Screen Comment POC Glucose 244 H 05/09/21 05/10/21 05/10/21 21:24 06:25 06:25 WBC 6.9 RBC 6.13 Hgb 13.6 Hct 44.8 MCV 73.1 L MCH 22.2 L MCHC 30.4 L RDW Std Deviation 41.8 RDW Coeff of Tiffany 17.2 H Plt Count 180 MPV 12.0 Immature Gran % (Auto) 0.300 Neut % (Auto) 36.8 L Lymph % (Auto) 54.3 H Gregory % (Auto) 5.1 Eos % (Auto) 3.2 Baso % (Auto) 0.3 Absolute Neuts (auto) 2.6 Absolute Lymphs (auto) 3.76 Nucleated RBC % 0 Sodium 138 Potassium 3.7 Chloride 108 H Carbon Dioxide 25.0 Anion Gap 5 BUN 14 Creatinine 1.03 Estim Creat Clear Calc 67.85 Est GFR (MDRD) Af Amer 91 Est GFR (MDRD) Non-Af 75 BUN/Creatinine Ratio 13.6 Glucose 216 H Calcium 8.7 Magnesium 1.8 Total Bilirubin Direct Bilirubin AST ALT Alkaline Phosphatase Troponin I Total Protein Albumin Globulin Triglycerides 263 H Cholesterol 137 LDL Cholesterol 47 VLDL Cholesterol 53 H HDL Cholesterol 37 L TSH Urine Opiates Screen Urine Methadone Screen Ur Barbiturates Screen Ur Phencyclidine Scrn Ur Amphetamines Screen U Methamphetamin-MDMA U Benzodiazepines Scrn Urine Cocaine Screen U Cannabinoids Screen Ur Drug Screen Comment POC Glucose 318 H 05/10/21 06:32 WBC RBC Hgb Hct MCV MCH MCHC RDW Std Deviation RDW Coeff of Tiffany Plt Count MPV Immature Gran % (Auto) Neut % (Auto) Lymph % (Auto) Gregory % (Auto) Eos % (Auto) Baso % (Auto) Absolute Neuts (auto) Absolute Lymphs (auto) Nucleated RBC % Sodium Potassium Chloride Carbon Dioxide Anion Gap BUN Creatinine Estim Creat Clear Calc Est GFR (MDRD) Af Amer Est GFR (MDRD) Non-Af BUN/Creatinine Ratio Glucose Calcium Magnesium Total Bilirubin Direct Bilirubin AST ALT Alkaline Phosphatase Troponin I Total Protein Albumin Globulin Triglycerides Cholesterol LDL Cholesterol VLDL Cholesterol HDL Cholesterol TSH Urine Opiates Screen Urine Methadone Screen Ur Barbiturates Screen Ur Phencyclidine Scrn Ur Amphetamines Screen U Methamphetamin-MDMA U Benzodiazepines Scrn Urine Cocaine Screen U Cannabinoids Screen Ur Drug Screen Comment POC Glucose 215 H Radiology Impression Chest X-Ray 05/09/21 10:16 IMPRESSION: Increased markings in the upper lobes with retraction of the gilmar and volume loss in the upper lobes suggestive of the upper lobe scarring more prominent on the right side. Electronically Signed: Lion Santos MD at 12:25 EDT , Service support , Brain MRI 05/09/21 14:41
[2021-05-10 12:20] LABS: Bedside Glucose 330 mg/dL (70-110)
--- NOTE | 2021-05-10 15:35 | CASEMGMT ---
SW completed a PHQ 9 with patient as he had a Stroke. He scored a 5 which indicates mild depression. Therapy came into the room to see patient. VICKI told patient if he is still here tomorrow SW will check in with him again. 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
[2021-05-10 17:21] LABS: Bedside Glucose 286 mg/dL (70-110)
[2021-05-10] MEDS: Atorvastatin Calcium 20 MG Tablet PO (21:06)
[2021-05-10] MEDS: traZODone 50 MG Tablet 25 MG PO (21:06)
[2021-05-10 21:55] LABS: Bedside Glucose 319 mg/dL (70-110)
[2021-05-10 22:59] LABS: Hematocrit 43.5 % (40-54); Hemoglobin 13.2 g/dL (13.0-16.5)
[2021-05-10] MEDS: MELATONIN 3 MG TABLET PO (23:19)
[2021-05-11] VITALS (14 sets, daily range): BP systolic 143–162; BP diastolic 71–92; PULSE 70–82; RESP 12–20; TEMP 36.2–37.4; O2SAT 95–100; BMI 21.5
[2021-05-11 04:47] LABS: Hematocrit 42.5 % (40-54); Hemoglobin 12.9 g/dL (13.0-16.5)
[2021-05-11] MEDS: Insulin Lispro 100 UNIT/ML INSULN.PEN SC ×4 (06:27→21:04)
[2021-05-11] MEDS: 0.9% Normal Saline 1,000 ML 125 ML IV (06:30)
[2021-05-11 06:41] LABS: Bedside Glucose 241 mg/dL (70-110)
[2021-05-11] MEDS: Budesonide Respules 0.5 MG/2 ML AMPUL.NEB. INHALATION ×2 (07:46→18:53)
[2021-05-11] MEDS: Albuterol 2.5 MG/3 ML VIAL.NEB. INHALATION ×3 (07:46→18:53)
[2021-05-11] MEDS: Aspirin 81 MG TAB.CHEW PO (08:32)
[2021-05-11] MEDS: Gabapentin 300 MG Capsule PO (08:33)
[2021-05-11] MEDS: amLODIPine 5 MG Tablet PO (08:33)
[2021-05-11] MEDS: Losartan Potassium 50 MG Tablet PO (08:33)
--- NOTE | 2021-05-11 08:34 | ECHOD_ITS ---
Reason For Study: TIA/CVA Procedure This was a 2D Doppler, Color Flow transthoracic echocardiogram. Exam performed portable in patient room. Left Ventricle Normal LV size. The estimated ejection fraction is 60 %. Normal diastology for age. No regional wall motion abnormalities noted. Right Ventricle Normal RV size. Normal systolic function. Atria Normal left atrium. Normal right atrium. No doppler evidence for ASD. Bubble contrast study negative for right to left interatrial shunt. Mitral Valve There is no mitral valve stenosis. No mitral valve insufficiency. Tricuspid Valve There is no tricuspid stenosis. No tricuspid valve insufficiency. Unable to estimate RV systolic pressure due to inadequate jet, pulmonary artery pressure probably normal. Aortic Valve Moderate focal aortic valve calcification. There is no aortic stenosis. No aortic valve insufficiency. Pulmonic Valve There is no pulmonic valvular stenosis. No pulmonic valve insufficiency. Great Vessels Normal aortic root. Pericardium/Pleural No pericardial effusion. Medication Performed a rapid injection of agitated mix of 9 cc saline and 1cc air to assess for atrial septal defect. MMode/2D Measurements & Calculations LVIDd: 3.9 cm IVSd: 1.2 cm Ao root diam: 3.2 cm LVIDs: 2.7 cm LVPWd: 1.2 cm RVDd: 3.3 cm FS: 31.4 % LAV(MOD-bp): 40.0 ml LVAd ap4: 30.8 cm2 SV(MOD-sp4): 51.0 ml LAV(MOD-bp) Indexed: 20.3 ml/m2 LVLd ap4: 9.2 cm LAV(MOD-sp2): 42.6 ml EDV(MOD-sp4): 81.8 ml LAV(MOD-sp4): 36.9 ml EDV(sp4-el): 86.8 ml LVAs ap4: 16.1 cm2 LVLs ap4: 7.2 cm ESV(MOD-sp4): 30.8 ml ESV(sp4-el): 30.6 ml EF(MOD-sp4): 62.3 % EF(sp4-el): 64.8 % SV(sp4-el): 56.2 ml LA A4 area: 15.1 cm2 LA dimension(2D): 3.4 cm RA A4 area: 15.4 cm2 Time Measurements MV dec time: 0.29 sec Doppler Measurements & Calculations MV E max raymundo: 63.2 cm/sec Lat Peak E' Raymundo: 9.6 cm/sec Med Peak E' Raymundo: 6.2 cm/sec MV A max raymundo: 89.4 cm/sec E/E' lat: 6.6 E/E' med: 10.2 MV E/A: 0.71 Ao V2 max: 132.8 cm/sec LV V1 max: 125.2 cm/sec PA V2 max: 132.8 cm/sec Ao max P.1 mmHg LV V1 max P.3 mmHg TR max raymundo: 244.6 cm/sec TR max P.9 mmHg ECHO/Echo Complete Interpretation Summary The estimated ejection fraction is 60 %. Normal diastology for age. Moderate focal aortic valve calcification. Ordering Physician: Uche Felix Referring Physician: [facility] Performed By: Meche Flores RDCS
[2021-05-11 10:36] LABS: Hematocrit 42.1 % (40-54); Hemoglobin 12.7 g/dL (13.0-16.5)
--- NOTE | 2021-05-11 11:03 | PN.HOSP_ITS ---
Subjective Subjective Patient has seen currently has no deficit. Telemetry monitoring has not demonstrated any A. fib. He however had runs of nonsustained VT the day prior. Scheduled to undergo 2D echo. Case was discussed with telemetry neurology plan is to obtain cardiology consultation. Did discuss with cardiology plan will be for patient to be discharged home with an event monitor and subsequent follow-up with cardiology as outpatient Objective Data Objective Data Vital Signs: Vital Signs Temp Pulse Resp BP Pulse Ox 98.3 F 78 16 143/71 H 97 05/11/21 08:30 05/11/21 08:30 05/11/21 08:30 05/11/21 08:30 05/11/21 08:30 Oxygen Delivery Method Room Air Weight: 74 kg Body Mass Index (BMI) 21.5 Intake & Output: Intake and Output for Last 24 Hours 05/09/21 05/10/21 05/11/21 23:59 23:59 23:59 Intake Total 1963.58 / 58 3368.75 / 3368.75 1250 / 1250 Output Total 2049 / 2049 Balance 1963.58 / 1963.58 3368.75 / 2468.75 -800 / -800 Lab / Micro Data Result Diagrams: 05/11/21 10:15 05/10/21 06:25 Labs: Laboratory Results - last 24 hr 05/10/21 05/10/21 05/10/21 12:04 16:51 21:05 Hgb Hct POC Glucose 330 H 286 H 319 H 05/10/21 05/11/21 05/11/21 22:50 04:38 06:26 Hgb 13.2 12.9 L Hct 43.5 42.5 POC Glucose 241 H 05/11/21 10:15 Hgb 12.7 L Hct 42.1 POC Glucose Physical Exam Narrative GENERAL: cooperative HEENT: Atraumatic; EYES; Anicteric, Normal Conjunctiva NECK; supple, normal thyroid, RESPIRATORY: Diminished to auscultation CARDIOVASCULAR: Regular S1 S2, GI: soft, normoactive bowel sounds, : No Renal angle tenderness; EXTREMITIES: No edema, no clubbing, MUSCULOSKELETAL: no muscle waisting NEURO: Awake; no lateralizing signs. SKIN: No Rash PSYCH; Flat affect Assessment & Plan Assessment/Plan (1) CVA (cerebral vascular accident): PLAN: Patient is a 70-year-old gentleman who presented with multiple neurological symptoms including bilateral upper and lower extremity weakness confusion and ataxia. Imaging studies obtained on admission demonstrated Find ings suggestive of old ischemic insult in the deep white matter of the posterior right parietal lobe. Admitted to monitored bed for subsequent management 1. Suspected CVA ?Imaging studies demonstrated Focal area of deep white matter edema in the posterior right parietal lobe as described.. Admitted to a monitored bed MRI of the brain without contrast ordered also ordered CTA of the head and neck. Patient started on aspirin and statin therapy -05/10/2021; MRI demonstrated Acute infarct right posterior parietal lobe. CTA of the head and neck showed Calcific plaque at the origin of the left internal carotid artery causing between 50 and 69% narrowing.. Consult placed to [facility] neurology for follow-up in vascular surgery regarding patient left carotid artery stenosis. -05/11/2021 Patient has seen currently has no deficit. Telemetry monitoring has not demonstrated any A. fib. He however had runs of nonsustained VT the day prior. Scheduled to undergo 2D echo. Case was discussed with telemetry neurology plan is to obtain cardiology consultation. Did discuss with cardiology plan will be for patient to be discharged home with an event monitor and subsequent follow-up with cardiology as outpatient. Patient was also seen in consultation by Dr. Talavera with vascular surgery. He will follow up with Dr. Talavera as outpatient for subsequent evaluation and management 2. Acute hypertensive emergency ?Patient was started on nicardipine drip in the ED discontinued in view of the underlying suspicion of ischemic stroke. Subsequent course of action will depend on findings on MRI -05/10/2021. Patient MRI demonstrated acute CVA. We will therefore allow for permissive hypertension 3. Diabetes mellitus type II -patient's oral hypoglycemics held. Placed on long acting insulin, Accu-Cheks a.c. and at bedtime and covered with sliding scale insulin 4. Dyslipidemia -Patient is on statin therapy, continued at home dose 5. COPD ?Aerosol treatments as needed 6. Diabetic polyneuropathy ?Patient is on gabapentin did continue 7. Tobacco dependence - Counseled on cessation, offered nicotine patch for tobacco cravings 8. DVT prophylaxis - On enoxaparin Charges/Coding Visit Charges Inpatient E&M: 78101 Subs Hosp L2
[2021-05-11 11:41] LABS: Bedside Glucose 378 mg/dL (70-110)
--- NOTE | 2021-05-11 14:27 | CASEMGMT ---
VICKI reviewed therapy notes and patient did not do as well with therapy today. PT recommended Rehab. VICKI called the [facility] to try and obtain information on the [facility] in [place] which is the clinic patient goes to. VICKI spoke with Chas. She was able to pull him up in the system. She said he is 80% service connected. She was going to try and find the SW this SW will need to talk with about benefits, getting home health or placement. She will call VICKI back. VICKI went to patient's room. He was sleeping, but he did wake up when VICKI called his name. VICKI asked how he was feeling as therapy said he did not do as well today. VICKI asked him if he feels he needs to go somewhere for rehab like a retirement short term. He said he isn't sure. He said he has a court date coming up. VICKI also asked if he wanted someone to come to his home for therapy and nursing. He is not sure. VICKI will continue to find out the in [place] that VICKI needs to talk with. In the meantime VICKI did get a return call from Chas at the [facility] in [place]. The SW this VICKI should talk with regarding patient is Rebecca Jessica and her number is [phone] Ext. [phone]. She is actually covering for the normal as she is on maternity leave. VICKI called this number and left a voice mail requesting a return call. Nini SCOTT
--- NOTE | 2021-05-11 14:38 | PCM.CONS.C ---
Assessment & Plan Assessment/Plan (1) CVA (cerebral vascular accident): QUALIFIERS: CVA mechanism: embolism Precerebral and cerebral artery: unspecified cerebral artery Qualified Code(s): I63.40 - Cerebral infarction due to embolism of unspecified cerebral artery PLAN: Suspected to be embolic. No evidence of A. fib on telemetry. No evidence of intracardiac thrombus or PFO. It will be reasonable to do a 30-day event monitor to look for A. fib. Since patient also has nonsustained V. tach the event monitor will be helpful to evaluate this as well. (2) Chest pain: QUALIFIERS: Chest pain type: unspecified Qualified Code(s): R07.9 - Chest pain, unspecified PLAN: Appears noncardiac by history and physical. It is reasonable to get a stress test as an outpatient. It appears that patient has a scheduled by his primary care physician already. (3) Nonsustained ventricular tachycardia: PLAN: 30-day event monitor as mentioned. HPI Consult Data Date of Consult: 05/11/21 HPI Narrative Reason for Consultation: Suspected embolic stroke HPI Narrative: ITZEL ALONZO, is a 70 M who presents with headache and bilateral arm weakness. Patient states that he was also having some chest discomfort at the time. It appears that patient had a TIA possibly embolic. 2D echo was obtained which showed preserved EF and no evidence of thrombus. Bubble study was negative. On telemetry patient had a run of nonsustained V. tach. The chest discomfort is left-sided, sharp, nonexertional, lasts a few minutes and is reproducible to palpation. Patient states that he had it about 2 weeks back as well when he was driving to see his physician at the [place]. Stress test apparently was ordered by his physician. Review of systems: All systems were reviewed. All else is negative except as in HPI PFSH Medical History Anxiety COPD (chronic obstructive pulmonary disease) Diabetes Hepatitis Hypertension Smoker Home Medications gabapentin 300 mg PO TID 02/24/15 [History Last Taken Unknown] glipizide 8 mg PO DAILY 02/24/15 [History Last Taken Unknown] albuterol 2 puff NASAL Q4H PRN 05/09/21 [History Last Taken Unknown] amlodipine 5 mg PO QHS 05/09/21 [History Last Taken Unknown] aspirin 81 mg PO DAILY 05/09/21 [History Last Taken Unknown] atorvastatin 20 mg PO QHS 05/09/21 [History Last Taken Unknown] budesonide-formoterol [Symbicort] 2 puff INHALATION BID 05/09/21 [History Last Taken Unknown] cyclobenzaprine 10 mg PO TID PRN 05/09/21 [History Last Taken Unknown] losartan 50 mg PO DAILY 05/09/21 [History Last Taken Unknown] mecobalamin (vitamin B12) 500 mcg PO DAILY 05/09/21 [History Last Taken Unknown] metformin 2,000 mg PO DAILY 05/09/21 [History Last Taken Unknown] sildenafil 100 mg PO DAILY PRN 05/09/21 [History Last Taken Unknown] trazodone 25 mg PO QHS 05/09/21 [History Last Taken Unknown] vitamin E 200 unit PO DAILY 05/09/21 [History Last Taken Unknown] Allergy/AdvReac Type Severity Reaction Status Date / Time No Known Allergies Allergy Verified 05/09/21 10:35 Family History Mother CVA (cerebral vascular accident) Surgical History Hx of appendectomy Social History Smoking Status: Former smoker Physical Exam Const alert and oriented x3 Orientation / Consciousness: awake HEENT normocephalic Eyes no scleral icterus Neck supple Chest inspection of chest normal Resp clear to auscultation bilaterally Cardio regular rate and regular rhythm Extremity no pedal edema Skin no rashes or lesions noted Neuro oriented x3 Psych mental status grossly normal Charges/Coding Visit Charges Inpatient E&M: 66117 Init Hosp L3 Objective Data Vital Signs: Vital Signs Temp Pulse Resp BP Pulse Ox 98.3 F 78 20 H 143/71 H 95 05/11/21 08:30 05/11/21 13:57 05/11/21 13:57 05/11/21 08:30 05/11/21 10:27 Oxygen Delivery Method Room Air Weight: 163 lb 2.273 oz Body Mass Index (BMI) 21.5 Intake & Output: Intake and Output for Last 24 Hours 05/09/21 05/10/21 05/11/21 23:59 23:59 23:59 Intake Total 3368.75 / 336.75 1550 / 1550 Output Total 3350 / 3350 Balance 3368.75 / 2468.75 -1800 / -1800 Lab / Micro Data Result Diagrams: 05/11/21 10:15 05/10/21 06:25 Labs: Laboratory Results - last 24 hr 05/10/21 05/10/21 05/10/21 16:51 21:05 22:50 Hgb 13.2 Hct 43.5 POC Glucose 286 H 319 H 05/11/21 05/11/21 05/11/21 04:38 06:26 10:15 Hgb 12.9 L 12.7 L Hct 42.5 42.1 POC Glucose 241 H 05/11/21 11:03 Hgb Hct POC Glucose 378 H Cardiology Labs/Tests 05/10/21 22:50: Hgb 13.2, Hct 43.5 05/11/21 04:38: Hgb 12.9 L, Hct 42.5 05/11/21 10:15: Hgb 12.7 L, Hct 42.1 Rhythm: EKG: ECHO: Stress Test: Cardiac Cath: PCI: CT Surgery: Holter monitor: EPS: PPM: CXR: Chest CT Scan: Radiography Diagnostic Testing: Radiology Impression Echocardiogram 05/11/21 08:34 Interpretation Summary The estimated ejection fraction is 60 %. Normal diastology for age. Moderate focal aortic valve calcification. Ordering Physician: Uche Felix Referring Physician: [facility] Performed By: Meche Flores RDCS
[2021-05-11 16:16] LABS: Bedside Glucose 361 mg/dL (70-110)
[2021-05-11 16:42] LABS: Hematocrit 44.2 % (40-54); Hemoglobin 13.3 g/dL (13.0-16.5)
[2021-05-11] MEDS: traZODone 50 MG Tablet 25 MG PO (21:03)
[2021-05-11] MEDS: Glucerna Shake 120 ML LIQUID PO (21:03)
[2021-05-11] MEDS: MELATONIN 3 MG TABLET PO (21:04)
[2021-05-11] MEDS: Atorvastatin Calcium 20 MG Tablet PO (21:04)
[2021-05-11 21:10] LABS: Bedside Glucose 249 mg/dL (70-110)
[2021-05-12] VITALS (7 sets, daily range): BP systolic 138–147; BP diastolic 76–87; PULSE 67–90; RESP 16–17; TEMP 36.6–37.2; O2SAT 96–98; BMI 21.5
[2021-05-12] MEDS: Insulin Lispro 100 UNIT/ML INSULN.PEN SC ×2 (06:34→11:37)
[2021-05-12 06:40] LABS: Bedside Glucose 247 mg/dL (70-110)
[2021-05-12] MEDS: Budesonide Respules 0.5 MG/2 ML AMPUL.NEB. INHALATION (07:16)
[2021-05-12] MEDS: Albuterol 2.5 MG/3 ML VIAL.NEB. INHALATION (07:16)
[2021-05-12] MEDS: Gabapentin 300 MG Capsule PO (07:59)
[2021-05-12] MEDS: Aspirin 81 MG TAB.CHEW PO (07:59)
[2021-05-12] MEDS: Glucerna Shake 120 ML LIQUID PO (08:05)
[2021-05-12] MEDS: Losartan Potassium 50 MG Tablet PO (08:06)
[2021-05-12] MEDS: amLODIPine 5 MG Tablet PO (08:06)
--- NOTE | 2021-05-12 10:08 | PCM.DC.SUM ---
Providers Date of Admission: 05/09/21 Primary Care Physician: [facility] Consultations 05/10/21 08:21 Consult: Vascular Surgery Routine Consulting Provider: Gee Talavera Reason for Consult: carotid artery stenosis EMERGENT Consult: No MD Notified: Yes Date Notified: 05/10/21 Time Notified: 08:40 Method of Notification: telephone Method of Consult:: In-Person 05/11/21 14:21 Consult: Cardiology Routine Consulting Provider: Brandan Adam Reason for Consult: suspected embolic cva EMERGENT Consult: No MD Notified: Yes Date Notified: 05/11/21 Time Notified: 14:21 Method of Notification: Verbal Method of Consult:: In-Person Reason For Visit: CVA Diagnosis Discharge Diagnosis (1) CVA (cerebral vascular accident): Status: Acute Code(s): I63.9 - Cerebral infarction, unspecified Qualifiers: CVA mechanism: embolism Precerebral and cerebral artery: unspecified cerebral artery Qualified Code(s): I63.40 - Cerebral infarction due to embolism of unspecified cerebral artery (2) Chest pain: Status: Acute Code(s): R07.9 - Chest pain, unspecified Qualifiers: Chest pain type: unspecified Qualified Code(s): R07.9 - Chest pain, unspecified (3) Nonsustained ventricular tachycardia: Status: Acute Code(s): I47.2 - Ventricular tachycardia Medications at Discharge Home Medications gabapentin 300 mg PO TID 02/24/15 glipizide 8 mg PO DAILY 02/24/15 albuterol 2 puff NASAL Q4H PRN 05/09/21 amlodipine 5 mg PO QHS 05/09/21 aspirin 81 mg PO DAILY 05/09/21 budesonide-formoterol [Symbicort] 2 puff INHALATION BID 05/09/21 cyclobenzaprine 10 mg PO TID PRN 05/09/21 losartan 50 mg PO DAILY 05/09/21 mecobalamin (vitamin B12) 500 mcg PO DAILY 05/09/21 metformin 2,000 mg PO DAILY 05/09/21 sildenafil 100 mg PO DAILY PRN 05/09/21 trazodone 25 mg PO QHS 05/09/21 vitamin E 200 unit PO DAILY 05/09/21 atorvastatin 80 mg PO QHS #90 tab 05/12/21 Hospital Course Summary of Care Provided Minutes Spent on Discharge: 35 Hospital Course: Patient is a 70-year-old gentleman who presented with multiple neurological symptoms including bilateral upper and lower extremity weakness confusion and ataxia. Imaging studies obtained on admission demonstrated Findings suggestive of old ischemic insult in the deep white matter of the posterior right parietal lobe. Admitted to monitored bed for subsequent management 1. Suspected CVA ?Imaging studies demonstrated Focal area of deep white matter edema in the posterior right parietal lobe as described.. Admitted to a monitored bed MRI of the brain without contrast ordered also ordered CTA of the head and neck. Patient started on aspirin and statin therapy -05/10/2021; MRI demonstrated Acute infarct right posterior parietal lobe. CTA of the head and neck showed Calcific plaque at the origin of the left internal carotid artery causing between 50 and 69% narrowing.. Consult placed to [facility] neurology for follow-up in vascular surgery regarding patient left carotid artery stenosis. -05/11/2021 Patient has seen currently has no deficit. Telemetry monitoring has not demonstrated any A. fib. He however had runs of nonsustained VT the day prior. Scheduled to undergo 2D echo. Case was discussed with telemetry neurology plan is to obtain cardiology consultation. Did discuss with cardiology plan will be for patient to be discharged home with an event monitor and subsequent follow-up with cardiology as outpatient. Patient was also seen in consultation by Dr. Talavera with vascular surgery. He will follow up with Dr. Talavera as outpatient for subsequent evaluation and management -Consult was placed to cardiology patient was seen by Dr. Adam patient will be discharged with a 30-day event monitor 2. Acute hypertensive emergency ?Patient was started on nicardipine drip in the ED discontinued in view of the underlying suspicion of ischemic stroke. Subsequent course of action will depend on findings on MRI -05/10/2021. Patient MRI demonstrated acute CVA. We will therefore allow for permissive hypertension -05/12/2021 patient blood pressure stabilized 3. Diabetes mellitus type II -patient's oral hypoglycemics held. Placed on long acting insulin, Accu-Cheks a.c. and at bedtime and covered with sliding scale insulin 4. Dyslipidemia -Patient is on statin therapy, continued at home dose 5. COPD ?Aerosol treatments as needed 6. Diabetic polyneuropathy ?Patient is on gabapentin did continue 7. Tobacco dependence - Counseled on cessation, offered nicotine patch for tobacco cravings 8. DVT prophylaxis - On enoxaparin Physical Exam Narrative GENERAL: cooperative HEENT: Atraumatic; EYES; Anicteric, Normal Conjunctiva NECK; supple, normal thyroid, RESPIRATORY: Diminished to auscultation CARDIOVASCULAR: Regular S1 S2, GI: soft, normoactive bowel sounds, : No Renal angle tenderness; EXTREMITIES: No edema, no clubbing, MUSCULOSKELETAL: no muscle waisting NEURO: Awake; no lateralizing signs. SKIN: No Rash Weight / BMI Weight Weight: 74 kg Body Mass Index (BMI) 21.5 ABG / Lab / Microbiology Data Result Diagrams: 05/11/21 16:09 05/10/21 06:25 Laboratory: Laboratory Results - last 24 hr 05/11/21 05/11/21 05/11/21 10:15 11:03 16:05 Hgb 12.7 L Hct 42.1 POC Glucose 378 H 361 H 05/11/21 05/11/21 05/12/21 16:09 20:58 06:32 Hgb 13.3 Hct 44.2 POC Glucose 249 H 247 H Radiography Diagnostic Testing: Radiology Impression Echocardiogram 05/11/21 08:34 Interpretation Summary The estimated ejection fraction is 60 %. Normal diastology for age. Moderate focal aortic valve calcification. Ordering Physician: Uche Felix Referring Physician: [facility] Performed By: Meche Flores RDCS D/C Instructions Discharge Diet: 1800 Calorie Control Diet Discharge Activity: Return to Normal Activity Call your doctor if you observe: Fever of 101 or Higher, Numbness or Tingling, Shortness of breath, Dizziness, Fainting spells, Chest pain and Increased palpitations (irregular heartbeat) Meaningful Use Info Meaningful Use Diagnoses (Choose all that apply): Ischemic CVA CVA Therapy Assessed for PT,OT and/or ST?: Yes Ischemic Stroke Antithrombotic order at d/c?: Yes Dx of Atrial fib/flutter?: No Statins at discharge?: Yes Primary Dx Acute Ischemic CVA?: Yes IV tPA ordered during stay?: No Reason IV t-PA not ordered: Treatment not Indicated Discharge Plan Admission Admit Date/Time: 05/09/21 13:12 Primary Reason for Your Visit: Acute CVA Attending Provider: Uche Felix Primary Care Provider: [facility],[place] Consulting Providers: Gee Talavera ; Brandan Adam Instructions Patient Instructions: ED Chest Pain, Noncardiac Discharge Orders/Prescriptions Prescriptions: New atorvastatin 80 mg tablet 80 mg PO QHS Qty: 90 RF: 0 Continued gabapentin 300 MG capsule 300 mg PO TID RF: 0 glipizide 5 MG tablet 8 mg PO DAILY RF: 0 losartan 50 mg Tablet 50 mg PO DAILY RF: 0 cyclobenzaprine 10 mg Tablet 10 mg PO TID PRN (Reason: muscle spasms) RF: 0 trazodone 50 mg Tablet 25 mg PO QHS RF: 0 amlodipine 5 mg Tablet 5 mg PO QHS RF: 0 metformin 1,000 mg Tablet Extended Release 24hr 2,000 mg PO DAILY RF: 0 budesonide-formoterol [Symbicort] 80-4.5 mcg/actuation Hfa Aerosol Inhaler 2 puff INHALATION BID RF: 0 albuterol 2 UNITS 2 puff NASAL Q4H PRN (Reason: SOB) RF: 0 aspirin 81 mg Tablet,Delayed Release (Dr/Ec) 81 mg PO DAILY RF: 0 sildenafil 100 mg Tablet 100 mg PO DAILY PRN (Reason: Erectile Dysfunction) RF: 0 vitamin E 200 unit Tablet 200 unit PO DAILY RF: 0 mecobalamin (vitamin B12) 1,000 mcg Tablet,Chewable 500 mcg PO DAILY RF: 0 Discontinued atorvastatin 20 mg Tablet 20 mg PO QHS RF: 0 Referrals / Follow Up: Gee Talavera MD [STAFF PHYSICIAN] - Within 1 Month (Carotid artery stenosis) Brandan Adam MD [STAFF PHYSICIAN] - Within 1 Month (For reading of 30-day event monitor) [facility],[place] [Primary Care Provider] - In 1 Week Disposition Disposition (needs filled in before D/C Order can be placed): Home, self care Charges/Coding Visit Charges Inpatient E&M: 75769 Disch Hosp
--- NOTE | 2021-05-12 10:20 | PCM.DC ---
Discharge Instructions Diet Discharge Diet: 1800 Calorie Control Diet Dressing / Incision Call your doctor if you observe: Fever of 101 or Higher, Numbness or Tingling, Shortness of breath, Dizziness, Fainting spells, Chest pain and Increased palpitations (irregular heartbeat) Follow Up Care Test Results: Test results from this visit will be discussed in further detail at your follow-up appointment, if applicable. Discharge Plan Admission Admit Date/Time: 05/09/21 13:12 Primary Reason for Your Visit: Acute CVA Attending Provider: Uche Felix Primary Care Provider: [place] Consulting Providers: Gee Talavera ; Brandan Adam Instructions Patient Instructions: ED Chest Pain, Noncardiac Discharge Orders/Prescriptions Prescriptions: New atorvastatin 80 mg tablet 80 mg PO QHS Qty: 90 RF: 0 Continued gabapentin 300 MG capsule 300 mg PO TID RF: 0 glipizide 5 MG tablet 8 mg PO DAILY RF: 0 losartan 50 mg Tablet 50 mg PO DAILY RF: 0 cyclobenzaprine 10 mg Tablet 10 mg PO TID PRN (Reason: muscle spasms) RF: 0 trazodone 50 mg Tablet 25 mg PO QHS RF: 0 amlodipine 5 mg Tablet 5 mg PO QHS RF: 0 metformin 1,000 mg Tablet Extended Release 24hr 2,000 mg PO DAILY RF: 0 budesonide-formoterol [Symbicort] 80-4.5 mcg/actuation Hfa Aerosol Inhaler 2 puff INHALATION BID RF: 0 albuterol 2 UNITS 2 puff NASAL Q4H PRN (Reason: SOB) RF: 0 aspirin 81 mg Tablet,Delayed Release (Dr/Ec) 81 mg PO DAILY RF: 0 sildenafil 100 mg Tablet 100 mg PO DAILY PRN (Reason: Erectile Dysfunction) RF: 0 vitamin E 200 unit Tablet 200 unit PO DAILY RF: 0 mecobalamin (vitamin B12) 1,000 mcg Tablet,Chewable 500 mcg PO DAILY RF: 0 Discontinued atorvastatin 20 mg Tablet 20 mg PO QHS RF: 0 Referrals / Follow Up: Gee Talavera MD [STAFF PHYSICIAN] - Within 1 Month (Carotid artery stenosis) Brandan Adam MD [STAFF PHYSICIAN] - Within 1 Month (For reading of 30-day event monitor) [facility],[place] [Primary Care Provider] - In 1 Week Disposition Disposition (needs filled in before D/C Order can be placed): Home, self care
--- NOTE | 2021-05-12 10:41 | CASEMGMT ---
VICKI spoke with OT this am and patient did much better today. She felt he is fine for home. VICKI has not heard back from [facility] regarding setting up home services. SW will check with patient to see if he even wants services at home. Nini SCOTT
--- NOTE | 2021-05-12 10:45 | PHA.DC.MC ---
Pharmacy Service has performed discharge medication reconciliation and counseling for this patient. The patient was counseled on the following discharge medications and changes in medications for homegoing were reviewed. 1. LIPITOR - DOSE INCREASED FROM 20 - 80MG The Reason for Use, instructions for use, and potential side effects were reviewed for all new medications. The patient's questions regarding all of their medications were answered. The patient demonstrated some understanding but would benefit from further education and reinforcement. Home Medications gabapentin 300 mg PO TID 02/24/15 glipizide 8 mg PO DAILY 02/24/15 albuterol 2 puff NASAL Q4H PRN 05/09/21 amlodipine 5 mg PO QHS 05/09/21 aspirin 81 mg PO DAILY 05/09/21 budesonide-formoterol [Symbicort] 2 puff INHALATION BID 05/09/21 cyclobenzaprine 10 mg PO TID PRN 05/09/21 losartan 50 mg PO DAILY 05/09/21 mecobalamin (vitamin B12) 500 mcg PO DAILY 05/09/21 metformin 2,000 mg PO DAILY 05/09/21 sildenafil 100 mg PO DAILY PRN 05/09/21 trazodone 25 mg PO QHS 05/09/21 vitamin E 200 unit PO DAILY 05/09/21 atorvastatin 80 mg PO QHS #90 tab 05/12/21 The patient's discharge medication list was reviewed for discrepancies and discrepancies were resolved.
--- NOTE | 2021-05-12 10:57 | CASEMGMT ---
SW spoke with patient and he was not sure if he needed a nurse or therapy at home. He was okay with SW leaving a message with [facility] and having them follow up with him in the next week. SW called the SW at the [facility] clinic, and left a message letting them know about patient's discharge and if someone could follow up with him in the next week to see if he feels he needs services at home. Plan: [facility] with [facility] to hopefully follow up with patient regarding services at home. Nini Rasheed TELEPHONE CLERK TYLER
[2021-05-12 11:21] LABS: Bedside Glucose > 500 mg/dL (70-110)
--- NOTE | 2021-05-12 14:56 | CASEMGMT ---
VICKI did receive a return phone call from Clarke COHEN with the [facility]. He said they can give patient a call to see if he would like any services at home. Nini SCOTT
[2021-05-12 15:11] LABS: Bedside Glucose 382 mg/dL (70-110)
== END 2021-05-12 15:29 | disposition home or self-care (01) | DRG 65 ==
LOC: ED 13:00 → PCU 13:43
PROVIDERS: Hospitalist; Admitting Provider Internal Medicine; Emergency Provider Emergency Medicine; Visit Provider Internal Medicine
DX: I63.9 Cerebral infarction, unspecified (principal); I47.2 Ventricular tachycardia; I16.1 Hypertensive emergency; E44.0 Moderate protein-calorie malnutrition; R27.0 Ataxia, unspecified; G83.11 Monoplegia of lower limb affecting right dominant side; G83.14 Monoplegia of lower limb affecting left nondominant side; G83.21 Monoplegia of upper limb affecting right dominant side; G83.24 Monoplegia of upper limb affecting left nondominant side; H53.8 Other visual disturbances; R29.701 NIHSS score 1; E11.42 Type 2 diabetes mellitus with diabetic polyneuropathy; E78.5 Hyperlipidemia, unspecified; I10 Essential (primary) hypertension; F41.9 Anxiety disorder, unspecified; J44.9 Chronic obstructive pulmonary disease, unspecified; Z86.73 Personal history of transient ischemic attack (TIA), and cerebral infarction without residual deficits; Z79.84 Long term (current) use of oral hypoglycemic drugs; Z79.82 Long term (current) use of aspirin; Z79.899 Other long term (current) drug therapy; Z68.21 Body mass index [BMI] 21.0-21.9, adult; F17.210 Nicotine dependence, cigarettes, uncomplicated
CPT/HCPCS: 36415; 51702; 70450; 70496; 70498; 70551; 71045; 80048; 80061; 80076; 80307; 82962; 83735; 84443; 84484; 85014; 85018; 85025; 85610; 85730; 92523; 92610; 93005; 93306; 94640; 94762; 97110; 97162; 97166; 97530; 97535; 97802; 99251; 99285; 99406; J2997; J7030; Q9967; A4216; G0463; J3490

== ENCOUNTER 2024-06-03 14:53 | Emergency (ER) | payer OTHER, SELFPAY ==
[2024-06-03 14:54] VITALS: BP 157/79; PULSE 77; RESP 18; TEMP 36.1; O2SAT 98
[2024-06-03 15:54] LABS: Absolute Lymphocyte Count 2.75 X10^3/uL (0.83-4.51); Absolute Neutrophil Count 4.7 X10^3/uL (2.0-7.7); Basophil# 0.03 X10^3/uL; Basophil% 0.4 % (0-1); Eosinophil# 0.25 X10^3/uL; Hematocrit 37.5 % (40-54); Hemoglobin 11.3 g/dL (13.0-16.5); Lymphocyte # 2.75 X10^3/ul (0.83-4.51); Lymphocyte % 33.1 % (19-41); Mean Corp Hgb Conc 30.1 g/dL (32-36); Mean Corpuscular Hgb 21.5 pg (27.0-32.0); Mean Corpuscular Volume 71.3 fL (80-94); Mean Platelet Vol. 10.8 fl (6.2-12.0); NRBC Flagged by Analyzer 0 % (0-5); Neutrophil # 4.74 X10^3/uL (2.7-7.7); Neutrophil % 57.1 % (47-70); Platelet Count 269 K/mm3 (150-450); RBC Distribution Width CV 16.5 % (11.6-14.6); RBC Distribution Width SD 40.8 fl (35.1-43.9); Red Blood Count 5.26 M/mm3 (4.6-6.2); White Blood Count 8.3 K/mm3 (4.4-11.0)
[2024-06-03 16:17] LABS: ALB/GLOB Ratio 0.8 RATIO (0.9-2.4); AST(SGOT) 19 U/L (15-37); Alanine Aminotransfer ALT/SGPT 16 U/L (16-61); Albumin, Serum 3.4 g/dL (3.2-5.0); Alkaline Phosphatase 135 U/L (45-117); Anion Gap 5 (5-15); BUN 24 mg/dL (7-18); BUN/Creat Ratio 19.4 RATIO (10-20); Chloride 102 mmol/L (98-107); Creatinine, Serum 1.24 mg/dL (0.70-1.30); EST Glomerular Filtration Rate 60 mL/min (>60); Est Glom Filt Rate - Afr Amer 73 mL/min (>60); Globulin 4.5 g/dL (2.2-4.2); Glucose 367 mg/dL (74-106); Potassium 4.7 mmol/L (3.5-5.1); Protein, Total 7.9 g/dL (6.4-8.2); Sodium Level 134 mmol/L (136-145)
[2024-06-03 16:53] LABS: Mucous, Urine 0 SEEN /hpf (<or=2+); Red Blood Cells-Urine 0 SEEN /hpf (0-5); Squamous Epithelial Cells - UA 0 SEEN /hpf (0-5); White Blood Cells 0 SEEN /hpf (0-5)
[2024-06-03 16:57] VITALS: BMI 22.5
[2024-06-03 16:57] LABS: Color, Urine Yellow (Yellow); Glucose, Dipstick 1000 mg/dl (Normal); Ketone-Dipstick Negative (Negative); Leukocyte Esterase-Dipstick Negative /ul (Negative); Nitrite-Dipstick Negative (Negative); Occult Blood-Urine 10 /ul (Negative); Protein-Dipstick 100 mg/dl (Negative); Specific Gravity, Urine 1.015 (1.002-1.030); Urine Bilirubin Dipstick Negative (Negative); Urine Clarity Clear (Clear); Urine Urobilinogen Normal (Normal)
[2024-06-03 16:58] VITALS: BP 146/85; PULSE 81; RESP 18; TEMP 36.8; O2SAT 98
[2024-06-03 17:20] LABS: Bacteria RARE /hpf (None Seen)
--- NOTE | 2024-06-03 17:39 | CT_ITS ---
STUDY: CT ABDOMEN AND PELVIS WITH CONTRAST REASON FOR EXAM: Male, 73 years old. abdominal pain RADIATION DOSAGE (If Supplied By Facility): CTDIvol = ( 10.00 ) mGy, DLP = ( 837.12 ) mGycm TECHNIQUE: Transaxial images were obtained from the dome of the diaphragm to the symphysis pubis without oral contrast. IV 100mL Isovue-370 was administered. Sagittal and coronal images were reconstructed. Individualized dose optimization techniques were used for this CT. COMPARISON: May 05, 2010 FINDINGS: The visualized lung bases are unremarkable. The visualized portions of the heart are within normal limits. Normal liver. Normal gallbladder and extrahepatic biliary system. Normal spleen. Normal pancreas. Normal bilateral adrenal glands. Normal right kidney. Normal left kidney. Mild thickening of the cervantes of the distal stomach and duodenum as well as mild thickening of folds of the proximal jejunum possibly representing mild gastroenteritis. . Normal colon. No evidence for acute appendicitis Minor atherosclerotic changes of the aorta without evidence for aneurysm. Normal inferior vena cava. Normal retroperitoneum. Incompletely distended thick walled bladder likely of no significance. Small fat-containing umbilical hernia.. Normal osseous structures. CT/Abdomen/Pelvis W IV Cont ONLY IMPRESSION: Findings which may be consistent with nonspecific gastroenteritis.. No evidence for small bowel obstruction or other acute abnormal abnormality. Electronically Signed: George Barahona MD at 18:54 EDT ,
--- NOTE | 2024-06-03 17:41 | EX.ED.DYSGE1 ---
HPI History of Present Illness Chief Complaint: Abd Pain Informant: patient Narrative Narrative: 73-year-old male presenting to the emergency room with abdominal pain. Patient states for 3 weeks he has had a dull ache in his abdomen particularly periumbilical to the right lower quadrant sometimes on the left. He states now he is feeling sharp stabbing pains mostly right lower quadrant into the flank. He states he has not had much of an appetite but today he is very hungry would like to eat the [place] food he brought with him. He has had prior appendectomy and kidney stone. He states he recently returned back to [place] after spending about half a year in [place] visiting his family. He has a history of known diabetes and hypertension. He has no local primary care but [facility] [place]. Patient denies any abdominal bloating no changes in bowel or bladder habits. No reported fevers. [facility] Medical History Anxiety Hepatitis Smoker COPD (chronic obstructive pulmonary disease) Hypertension Diabetes Home Medications ?Medication ?Instructions ?Recorded ?Last Taken ?Type gabapentin 300 mg capsule 300 mg PO TID neuropathy 02/24/15 Unknown History glipizide 5 mg tablet 8 mg PO DAILY diabetes 02/24/15 Unknown History albuterol 2 puff NASAL Q4H PRN SOB 05/09/21 Unknown History amlodipine 5 mg tablet 5 mg PO QHS blood pressure 05/09/21 Unknown History aspirin 81 mg tablet,delayed 81 mg PO DAILY heart health 05/09/21 Unknown History release budesonide-formoterol HFA 80 2 puff inhalation BID COPD 05/09/21 Unknown History mcg-4.5 mcg/actuation aerosol inhaler (Symbicort) cyclobenzaprine 10 mg tablet 10 mg PO TID PRN muscle spasms 05/09/21 Unknown History losartan 50 mg tablet 50 mg PO DAILY blood pressure 05/09/21 Unknown History mecobalamin (vitamin B12) 1,000 500 mcg PO DAILY supplement 05/09/21 Unknown History mcg chewable tablet metformin 1,000 mg tablet,extended 2,000 mg PO DAILY diabetes 05/09/21 Unknown History release 24hr (osmotic) sildenafil 100 mg tablet 100 mg PO DAILY PRN Erectile 05/09/21 Unknown History Dysfunction trazodone 50 mg tablet 25 mg PO QHS sleep 05/09/21 Unknown History vitamin E 200 unit tablet 200 unit PO DAILY supplement 05/09/21 Unknown History atorvastatin 80 mg tablet 80 mg PO QHS #90 tabs 05/12/21 Unknown Rx Allergy/AdvReac Type Severity Reaction Status Date / Time No Known Allergies Allergy Verified 06/03/24 14:56 Family History Mother CVA (cerebral vascular accident) Surgical History Hx of appendectomy Social History Smoking Status: Former smoker ROS ROS ED Constitutional Constitutional ED: Denies chills, fever(s) or weight loss Eyes Eyes: Denies change in vision or diplopia ENT ENT ED: Denies ear pain, rhinorrhea or sore throat Cardiovascular Cardiovascular: Denies chest pain, orthopnea, palpitations or racing heartbeat Respiratory/Chest Respiratory/Chest: Denies cough, dyspnea or orthopnea Gastrointestinal Gastrointestinal: Reports abdominal pain; Denies constipation, diarrhea, nausea or vomiting Genitourinary Genitourinary ED: Denies dysuria, hematuria or urinary frequency Musculoskeletal Musculoskeletal: Denies arthralgias or myalgias Integumentary Denies abscess or rash Neurologic Neurologic: Denies headache(s) or weakness Psychiatric Psychiatric: Denies anxiety, depression, suicidal ideation or suicidal thoughts Endocrine Endocrinology: Denies polydipsia, polyphagia or polyuria Allergic/Immunologic Allergic/Immunologic ED: Denies mouth swelling, tongue swelling or urticaria EXAM Physical Exam Const Vital Signs: 06/03/24 14:54 06/03/24 16:58 06/03/24 20:00 Temperature 96.9 F L 98.2 F Temperature Source Temporal Temporal Pulse Rate 77 81 81 Respiratory Rate 18 18 16 Blood Pressure 157/79 H 146/85 H 161/95 H Blood Pressure Mean 105 105 117 Pulse Ox 98 98 98 Oxygen Delivery Method Room Air Room Air Room Air 06/03/24 20:14 Temperature 98 F Temperature Source Pulse Rate 83 Respiratory Rate 18 Blood Pressure 160/83 H Blood Pressure Mean 108 Pulse Ox 99 Oxygen Delivery Method Positive well nourished and well developed General Appearance ED: well developed HEENT Reports normocephalic, head/scalp atraumatic and moist mucous membranes Eyes PERRL and EOMs intact bilaterally Neck no lymphadenopathy, supple and no JVD Resp normal respiratory effort and clear to auscultation bilaterally Cardio regular rate, regular rhythm and no murmurs GI GI Narrative: There is a well-healed surgical incision on the right side of his abdomen consistent with prior appendectomy. Small umbilical hernia noted. This is nontender. Patient notes mild diffuse tenderness to palpation. The abdomen is soft without guarding or rebound. Normal active bowel sounds. Palpation: soft Back/Spine no CVA tenderness and normal ROM Extremity normal to inspection General Extremety ED: Negative for edema General Extremity: Negative for edema Neuro oriented x3 and CN's II-XII intact bilaterally Sensorium / Orientation: alert Motor Exam: strength 5/5 throughout Psych mental status grossly normal Mood & Affect: Negative for depressed or tearful Skin no rashes or lesions noted and no wounds MDM MDM MDM Narrative Medical decision making narrative: Differential diagnosis includes but not limited to colitis ureterolithiasis small bowel obstruction gastroenteritis malignancy biliary colic volvulus adhesions UTI urinary retention White count 8.3 with hemoglobin 11.3. Normal LFTs with the exception of an alk phos of 135. Glucose elevated 367. Urinalysis showed no obvious hematuria or UTI. CT of the abdomen pelvis was obtained which does not demonstrate any significant findings to explain his pain. Please see radiologist read. Clinically he is not presenting with nausea vomiting or diarrhea so I doubt gastroenteritis. Patient ate his [place] food that he brought with him without any difficulty. It is difficult to say exactly what is causing his symptoms at this point. I did recommend PCP follow-up and possible referral to gastroenterology or urology if needed. He is welcome to return if any new symptoms or is worsening. Patient is comfortable with this plan. History & Record Review Discussion w/independent historian: Patient Lab Data Attestation: I reviewed the patient's lab results. Labs: Laboratory Results - last 24 hr 06/03/24 06/03/24 15:45 16:47 WBC 8.3 RBC 5.26 Hgb 11.3 L Hct 37.5 L MCV 71.3 L MCH 21.5 L MCHC 30.1 L RDW Std Deviation 40.8 RDW Coeff of Tiffany 16.5 H Plt Count 269 MPV 10.8 Immature Gran % (Auto) 0.400 Neut % (Auto) 57.1 Lymph % (Auto) 33.1 [place] % (Auto) 6.0 Eos % (Auto) 3.0 Baso % (Auto) 0.4 Absolute Neuts (auto) 4.7 Absolute Lymphs (auto) 2.75 Nucleated RBC % 0 Sodium 134 L Potassium 4.7 Chloride 102 Carbon Dioxide 27.0 Anion Gap 5 BUN 24 H Creatinine 1.24 Est GFR (MDRD) Af Amer 73 Est GFR (MDRD) Non-Af 60 BUN/Creatinine Ratio 19.4 Glucose 367 H Calcium 10.0 Total Bilirubin 0.20 AST 19 ALT 16 Alkaline Phosphatase 135 H Total Protein 7.9 Albumin 3.4 Globulin 4.5 H Albumin/Globulin Ratio 0.8 L Urine Color Yellow Urine Clarity Clear Urine pH 6.0 Ur Specific Spruce 1.015 Urine Protein 100 H Urine Glucose (UA) 1000 H Urine Ketones Negative Urine Occult Blood 10 H Urine Nitrite Negative Urine Bilirubin Negative Urine Urobilinogen Normal Ur Leukocyte Esterase Negative Urine RBC 0 SEEN Urine WBC 0 SEEN Ur Squamous Epith Cells 0 SEEN Urine Bacteria RARE Urine Mucus 0 SEEN Radiography Diagnostic Testing: Clinical Impression(s) from Imaging Studies Abdomen/Pelvis CT 06/03/24 17:39 IMPRESSION: Findings which may be consistent with nonspecific gastroenteritis.. No evidence for small bowel obstruction or other acute abnormal abnormality. Electronically Signed: George Barahona MD at 18:54 EDT Reading Location ID and State: [address] [place] [address] Tel , Service support , Discharge Plan Triage Chief Complaint: Abd Pain ED Provider: César Short Dx/Rx/DC Orders Clinical Impression: Abdominal pain, Diabetes Instructions: ED Abdominal Pain Unkn Cause Male... Prescriptions: No Action gabapentin 300 MG capsule 300 mg PO TID glipizide 5 MG tablet 8 mg PO DAILY losartan 50 mg Tablet 50 mg PO DAILY cyclobenzaprine 10 mg Tablet 10 mg PO TID PRN (Reason: muscle spasms) trazodone 50 mg Tablet 25 mg PO QHS amlodipine 5 mg Tablet 5 mg PO QHS metformin 1,000 mg Tablet Extended Release 24hr 2,000 mg PO DAILY budesonide-formoterol [Symbicort] 80-4.5 mcg/actuation Hfa Aerosol Inhaler 2 puff INHALATION BID albuterol 2 UNITS 2 puff NASAL Q4H PRN (Reason: SOB) aspirin 81 mg Tablet,Delayed Release (Dr/Ec) 81 mg PO DAILY sildenafil 100 mg Tablet 100 mg PO DAILY PRN (Reason: Erectile Dysfunction) vitamin E 200 unit Tablet 200 unit PO DAILY mecobalamin (vitamin B12) 1,000 mcg Tablet,Chewable 500 mcg PO DAILY atorvastatin 80 mg tablet 80 mg PO QHS Qty: 90 0RF [facility] Provider[facility] - Activity Restrictions/Additional Instructions: Please schedule early follow-up with your [facility] doctor. As mentioned, you may need to follow-up with urologist and possibly a wrap knitting machine operator for their opinion of the pain that you have been experiencing. Please return to emergency if there are new symptoms or you feel you are worsening. Print Language: Thai Disposition Disposition: Home, Self Care Discharge Date/Time: 06/03/24 20:18
[2024-06-03 20:00] VITALS: BP 161/95; PULSE 81; RESP 16; O2SAT 98
[2024-06-03 20:14] VITALS: BP 160/83; PULSE 83; RESP 18; TEMP 36.6; O2SAT 99
== END 2024-06-03 20:18 | disposition home or self-care (01) ==
PROVIDERS: Emergency Provider Emergency Medicine; Visit Provider Emergency Medicine
DX: R10.31 Right lower quadrant pain (principal); J44.9 Chronic obstructive pulmonary disease, unspecified; E11.9 Type 2 diabetes mellitus without complications; I10 Essential (primary) hypertension; Z87.891 Personal history of nicotine dependence; Z79.84 Long term (current) use of oral hypoglycemic drugs; Z79.899 Other long term (current) drug therapy; Z79.82 Long term (current) use of aspirin; Z79.51 Long term (current) use of inhaled steroids; Z90.49 Acquired absence of other specified parts of digestive tract
CPT/HCPCS: 74177; 80053; 81001; 85025; 99283; Q9967; A4216

== ENCOUNTER 2024-06-13 17:23 | Emergency (ER) | payer OTHER, SELFPAY ==
[2024-06-13 17:24] VITALS: BP 166/95; PULSE 89; RESP 16; TEMP 36.4; O2SAT 98; BMI 23.1
--- NOTE | 2024-06-13 17:38 | EX.ED.DYSGE1 ---
HPI History of Present Illness Chief Complaint: Abd Pain Informant: patient Onset/Context/Timing Onset: Weeks Narrative Narrative: Patient presents with a 2 to 3-week history of sharp abdominal pain. He points to a bandlike sensation around the mid abdomen and describing his area of pain. He denies nausea or vomiting. Eating does not seem to change the pain. He does report urinary urgency and does not feel that he empties his bladder completely. No fever or chills. He also complains of pain consistent with neuropathy to his hands and feet. [facility] Medical History Anxiety Hepatitis Smoker COPD (chronic obstructive pulmonary disease) Hypertension Diabetes Home Medications ?Medication ?Instructions ?Recorded ?Last Taken ?Type gabapentin 300 mg capsule 300 mg PO TID neuropathy 02/24/15 Unknown History glipizide 5 mg tablet 8 mg PO DAILY diabetes 02/24/15 Unknown History albuterol 2 puff NASAL Q4H PRN SOB 05/09/21 Unknown History amlodipine 5 mg tablet 5 mg PO QHS blood pressure 05/09/21 Unknown History aspirin 81 mg tablet,delayed 81 mg PO DAILY heart health 05/09/21 Unknown History release budesonide-formoterol HFA 80 2 puff inhalation BID COPD 05/09/21 Unknown History mcg-4.5 mcg/actuation aerosol inhaler (Symbicort) cyclobenzaprine 10 mg tablet 10 mg PO TID PRN muscle spasms 05/09/21 Unknown History losartan 50 mg tablet 50 mg PO DAILY blood pressure 05/09/21 Unknown History mecobalamin (vitamin B12) 1,000 500 mcg PO DAILY supplement 05/09/21 Unknown History mcg chewable tablet metformin 1,000 mg tablet,extended 2,000 mg PO DAILY diabetes 05/09/21 Unknown History release 24hr (osmotic) sildenafil 100 mg tablet 100 mg PO DAILY PRN Erectile 05/09/21 Unknown History Dysfunction trazodone 50 mg tablet 25 mg PO QHS sleep 05/09/21 Unknown History vitamin E 200 unit tablet 200 unit PO DAILY supplement 05/09/21 Unknown History atorvastatin 80 mg tablet 80 mg PO QHS #90 tabs 05/12/21 Unknown Rx amlodipine 5 mg tablet 5 mg PO DAILY #30 tabs 06/13/24 Unknown Rx aspirin 81 mg capsule 81 mg PO DAILY #30 caps 06/13/24 Unknown Rx atorvastatin 80 mg tablet 80 mg PO DAILY #30 tabs 06/13/24 Unknown Rx budesonide-formoterol HFA 80 2 puff inhalation BID #10.2 grams 06/13/24 Unknown Rx mcg-4.5 mcg/actuation aerosol inhaler (Symbicort) gabapentin 300 mg capsule 300 mg PO TID #90 caps 06/13/24 Unknown Rx glipizide 5 mg tablet 5 mg PO DAILY #30 tabs 06/13/24 Unknown Rx losartan 50 mg tablet 50 mg PO DAILY #30 tabs 06/13/24 Unknown Rx metformin 1,000 mg tablet 1,000 mg PO BID #60 tabs 06/13/24 Unknown Rx Allergy/AdvReac Type Severity Reaction Status Date / Time No Known Allergies Allergy Verified 06/03/24 14:56 Family History Mother CVA (cerebral vascular accident) Surgical History Hx of appendectomy Social History Smoking Status: Current some day smoker tobacco type: cigarettes ROS ROS ED Constitutional Constitutional ED: Denies chills or fever(s) Eyes Eyes: Denies discharge from eye(s) ENT ENT ED: Denies discharge from eye(s), rhinorrhea or sore throat Cardiovascular Cardiovascular: Denies chest pain Respiratory/Chest Respiratory/Chest: Denies cough or dyspnea Gastrointestinal Gastrointestinal: Reports abdominal pain; Denies diarrhea, nausea or vomiting Genitourinary Genitourinary ED: Reports other Details: Urinary urgency ; Denies dysuria Musculoskeletal Musculoskeletal: Reports extremity pain; Denies back pain Integumentary Denies Abrasions or rash Neurologic Neurologic: Denies headache(s) or weakness Psychiatric Psychiatric: Denies anxiety or depression Allergic/Immunologic Allergic/Immunologic ED: Denies lip swelling or urticaria EXAM Physical Exam Const Vital Signs: 06/13/24 17:24 06/13/24 19:23 06/13/24 21:00 Temperature 97.6 F L Temperature Source Temporal Pulse Rate 89 77 73 Respiratory Rate 16 14 18 Blood Pressure 166/95 H 166/84 H 143/87 H Blood Pressure Mean 118 111 105 Pulse Ox 98 97 97 Oxygen Delivery Method Room Air Room Air Room Air Positive well nourished and well developed General Appearance ED: well developed HEENT Reports moist mucous membranes Eyes EOMs intact bilaterally Chest Wall inspection of chest normal and palpation of chest normal Resp normal respiratory effort and clear to auscultation bilaterally Cardio regular rate and regular rhythm GI GI Narrative: Abdomen soft with mid lower abdominal tenderness to palpation. Active bowel sounds are noted. No palpable masses. Extremity normal to inspection Neuro oriented x3 Neuro Narrative: Paresthesias to the hands and feet consistent with his neuropathy. No focal motor deficit. Skin no rashes or lesions noted MDM MDM MDM Narrative Medical decision making narrative: IV line established. Patient given a small dose of fentanyl and Zofran along with IV fluids. Labwork obtained to evaluate for leukocytosis, anemia, and electrolyte derangement. Bladder scan will be obtained to ensure patient does not have urinary retention. History & Record Review Discussion w/independent historian: Patient Lab Data Attestation: I reviewed the patient's lab results. Labs: Laboratory Results - last 24 hr 06/13/24 06/13/24 18:05 19:08 WBC 8.9 RBC 5.11 Hgb 11.0 L Hct 37.0 L MCV 72.4 L MCH 21.5 L MCHC 29.7 L RDW Std Deviation 40.9 RDW Coeff of Tiffany 16.1 H Plt Count 285 MPV 10.8 Immature Gran % (Auto) 0.500 Neut % (Auto) 62.3 Lymph % (Auto) 29.4 [place] % (Auto) 5.6 Eos % (Auto) 2.0 Baso % (Auto) 0.2 Absolute Neuts (auto) 5.5 Absolute Lymphs (auto) 2.61 Nucleated RBC % 0 Sodium 133 L Potassium 4.3 Chloride 100 Carbon Dioxide 24.0 Anion Gap 9 BUN 27 H Creatinine 1.47 H Estim Creat Clear Calc 48.22 Est GFR (MDRD) Af Amer 60 Est GFR (MDRD) Non-Af 50 L BUN/Creatinine Ratio 18.4 Glucose 470 H* Calcium 9.1 Total Bilirubin 0.20 Direct Bilirubin 0.06 AST 16 ALT 14 L Alkaline Phosphatase 131 H Total Protein 7.5 Albumin 3.2 Globulin 4.3 H Lipase 41 Urine Color Yellow Urine Clarity Clear Urine pH 6.0 Ur Specific [place] 1.015 Urine Protein 30 H Urine Glucose (UA) 1000 H Urine Ketones Negative Urine Occult Blood Negative Urine Nitrite Negative Urine Bilirubin Negative Urine Urobilinogen Normal Ur Leukocyte Esterase 25 H Urine RBC 0 SEEN Urine WBC 0 SEEN Ur Squamous Epith Cells 0 SEEN Urine Bacteria 0 SEEN Urine Mucus 0 SEEN Radiography Diagnostic Testing: Clinical Impression(s) from Imaging Studies Abdomen/Pelvis CT 06/13/24 20:13 IMPRESSION: No acute findings in the abdomen or pelvis. Electronically Signed: Myke Mortensen MD at 21:12 EDT , Treatment and Re-Evaluation :: CBC was a white count of 8.9 with normal differential. Hemoglobin is 11.0. Chemistry studies reveal a sodium of 133 with a glucose of 470. His BUN is 27 and his creatinine is 1.47. LFTs are significant for an alk phos of 131. His lipase is normal at 41. Urinalysis reveals a positive glucose. No evidence of infection. Postvoid bladder scan was performed and does not reveal evidence of urinary retention. CT scan of the abdomen pelvis with IV contrast is obtained and reveals no evidence of acute findings. Test results are discussed with the patient. I did note late in the patient's workup that he was seen 10 days ago with the same symptoms. Patient states that [facility] to go to [place]. He does not have transportation to get to [place]. Further, he now tells me that he has been out of all of his medications for the past several weeks. I advised him that I could write prescriptions for his normal medications and send him to one of the local pharmacies that we will do home delivery. He can call them on Saturday to help set up the home delivery. I also spoke with social work who will try to get him resources for local care and assistance. Discharge Plan Triage Chief Complaint: Abd Pain ED Provider: Juana Michaud Dx/Rx/DC Orders Clinical Impression: Hyperglycemia, Abdominal pain, Neuropathy Instructions: ED Diabetic Hyperglycemia, ED Neuropathy, Peripheral, ED Abdominal Pain Unkn Cause Male... Prescriptions: New amlodipine 5 mg tablet 5 mg PO DAILY Qty: 30 0RF aspirin 81 mg capsule 81 mg PO DAILY Qty: 30 0RF atorvastatin 80 mg tablet 80 mg PO DAILY Qty: 30 0RF budesonide-formoterol [Symbicort] 80-4.5 mcg/actuation HFA aerosol inhaler 2 puff inhalation BID Qty: 10.2 0RF gabapentin 300 mg capsule 300 mg PO TID Qty: 90 0RF glipizide 5 mg tablet 5 mg PO DAILY Qty: 30 0RF losartan 50 mg tablet 50 mg PO DAILY Qty: 30 0RF metformin 1,000 mg tablet 1,000 mg PO BID Qty: 60 0RF No Action gabapentin 300 MG capsule 300 mg PO TID glipizide 5 MG tablet 8 mg PO DAILY losartan 50 mg Tablet 50 mg PO DAILY cyclobenzaprine 10 mg Tablet 10 mg PO TID PRN (Reason: muscle spasms) trazodone 50 mg Tablet 25 mg PO QHS amlodipine 5 mg Tablet 5 mg PO QHS metformin 1,000 mg Tablet Extended Release 24hr 2,000 mg PO DAILY budesonide-formoterol [Symbicort] 80-4.5 mcg/actuation Hfa Aerosol Inhaler 2 puff INHALATION BID albuterol 2 UNITS 2 puff NASAL Q4H PRN (Reason: SOB) aspirin 81 mg Tablet,Delayed Release (Dr/Ec) 81 mg PO DAILY sildenafil 100 mg Tablet 100 mg PO DAILY PRN (Reason: Erectile Dysfunction) vitamin E 200 unit Tablet 200 unit PO DAILY mecobalamin (vitamin B12) 1,000 mcg Tablet,Chewable 500 mcg PO DAILY atorvastatin 80 mg tablet 80 mg PO QHS Qty: 90 0RF [facility] [Primary Care Provider] - As soon as possible Activity Restrictions/Additional Instructions: Prescriptions for your medications will be sent to [facility] who has delivery services available. Please call them on Saturday to arrange delivery of your medications. I also spoke with our social work supervisor who will be contacting you with resources to help provide assistance. Print Language: Hebrew Disposition Disposition: Home, Self Care
[2024-06-13] MEDS: fentaNYL 100 MCG/2 ML Ampul 25 MCG IV (18:12)
[2024-06-13] MEDS: Ondansetron 4 MG/2 ML Vial IV (18:12)
[2024-06-13] MEDS: 0.9% Normal Saline (1000mL) 1,000 ML 150 ML IV (18:12)
[2024-06-13 18:13] LABS: Absolute Lymphocyte Count 2.61 X10^3/uL (0.83-4.51); Absolute Neutrophil Count 5.5 X10^3/uL (2.0-7.7); Basophil# 0.02 X10^3/uL; Basophil% 0.2 % (0-1); Eosinophil# 0.18 X10^3/uL; Lymphocyte # 2.61 X10^3/ul (0.83-4.51); Lymphocyte % 29.4 % (19-41); Mean Corp Hgb Conc 29.7 g/dL (32-36); Mean Corpuscular Hgb 21.5 pg (27.0-32.0); Mean Corpuscular Volume 72.4 fL (80-94); Mean Platelet Vol. 10.8 fl (6.2-12.0); Monocyte% 5.6 % (0-10); NRBC Flagged by Analyzer 0 % (0-5); Neutrophil # 5.53 X10^3/uL (2.7-7.7); Neutrophil % 62.3 % (47-70); Platelet Count 285 K/mm3 (150-450); RBC Distribution Width CV 16.1 % (11.6-14.6); RBC Distribution Width SD 40.9 fl (35.1-43.9); Red Blood Count 5.11 M/mm3 (4.6-6.2); White Blood Count 8.9 K/mm3 (4.4-11.0)
[2024-06-13 18:36] LABS: AST(SGOT) 16 U/L (15-37); Alanine Aminotransfer ALT/SGPT 14 U/L (16-61); Albumin, Serum 3.2 g/dL (3.2-5.0); Alkaline Phosphatase 131 U/L (45-117); Anion Gap 9 (5-15); BUN 27 mg/dL (7-18); BUN/Creat Ratio 18.4 RATIO (10-20); Bilirubin, Direct 0.06 mg/dL (0.00-0.30); Calcium,Total 9.1 mg/dL (8.5-10.1); Chloride 100 mmol/L (98-107); Creatinine, Serum 1.47 mg/dL (0.70-1.30); EST Glomerular Filtration Rate 50 mL/min (>60); Est Glom Filt Rate - Afr Amer 60 mL/min (>60); Estimated Creatinine Clearance 48.22 ml/min; Globulin 4.3 g/dL (2.2-4.2); Glucose 470 mg/dL (74-106); Lipase 41 U/L (13-75); Potassium 4.3 mmol/L (3.5-5.1); Protein, Total 7.5 g/dL (6.4-8.2); Sodium Level 133 mmol/L (136-145)
[2024-06-13 19:12] LABS: Bacteria 0 SEEN /hpf (None Seen); Mucous, Urine 0 SEEN /hpf (<or=2+); Red Blood Cells-Urine 0 SEEN /hpf (0-5); Squamous Epithelial Cells - UA 0 SEEN /hpf (0-5); White Blood Cells 0 SEEN /hpf (0-5)
[2024-06-13 19:23] VITALS: BP 166/84; PULSE 77; RESP 14; O2SAT 97
[2024-06-13 19:38] LABS: Color, Urine Yellow (Yellow); Glucose, Dipstick 1000 mg/dl (Normal); Ketone-Dipstick Negative (Negative); Leukocyte Esterase-Dipstick 25 /ul (Negative); Nitrite-Dipstick Negative (Negative); Occult Blood-Urine Negative /ul (Negative); Protein-Dipstick 30 mg/dl (Negative); Specific Gravity, Urine 1.015 (1.002-1.030); Urine Bilirubin Dipstick Negative (Negative); Urine Clarity Clear (Clear); Urine Urobilinogen Normal (Normal)
--- NOTE | 2024-06-13 20:13 | CT_ITS ---
INDICATION: abdominal pain EXAMINATION: CT ABDOMEN AND PELVIS WITH CONTRAST - CT Abdomen And Pelvis W/ Contrast Injection TECHNIQUE: Helically acquired images were obtained of the abdomen and pelvis following IV contrast. A radiation dose optimization technique was used for this scan. IV Contrast dosage and agent: 100 cc Isovue-370 Oral contrast: None. COMPARISON: 06/03/2024 FINDINGS: LOWER CHEST: Stable mild fibrotic changes right lung base. No cardiomegaly or pericardial effusion. LIVER: Homogeneous. No focal mass. GALLBLADDER AND BILIARY TREE: No calcified gallstones. Gallbladder contracted. No intra- or extrahepatic biliary ductal dilation. PANCREAS: No focal cystic or solid mass. SPLEEN: Normal size without focal cystic or solid mass. ADRENAL GLANDS: No nodules. KIDNEYS AND URETERS: No hydronephrosis. PERITONEUM: No ascites or free air. BOWEL: Prior appendectomy changes. No stomach or bowel distension. No focal inflammatory change. LYMPH NODES: No enlarged mesenteric or retroperitoneal lymph nodes. VESSELS: Aorta is non-dilated. URINARY BLADDER: Unremarkable. REPRODUCTIVE ORGANS: No pelvic masses. BONES: No acute or aggressive abnormality. CT/Abdomen/Pelvis W IV Cont ONLY IMPRESSION: No acute findings in the abdomen or pelvis. Electronically Signed: Myke Mortensen MD at 21:12 EDT ,
[2024-06-13 21:00] VITALS: BP 143/87; PULSE 73; RESP 18; O2SAT 97
[2024-06-13 22:07] VITALS: BP 171/89; PULSE 79; RESP 16; TEMP 36.4; O2SAT 100
[2024-06-13] MEDS: Insulin Lispro 100 UNIT/ML INSULN.PEN 10 UNIT SC (22:09)
== END 2024-06-13 22:33 | disposition home or self-care (01) ==
PROVIDERS: Emergency Provider Emergency Medicine; Visit Provider Emergency Medicine
DX: E11.65 Type 2 diabetes mellitus with hyperglycemia (principal); J44.9 Chronic obstructive pulmonary disease, unspecified; E11.40 Type 2 diabetes mellitus with diabetic neuropathy, unspecified; I10 Essential (primary) hypertension; F17.210 Nicotine dependence, cigarettes, uncomplicated; Z79.84 Long term (current) use of oral hypoglycemic drugs; Z79.899 Other long term (current) drug therapy; Z79.82 Long term (current) use of aspirin; Z79.51 Long term (current) use of inhaled steroids; Z90.49 Acquired absence of other specified parts of digestive tract; R10.9 Unspecified abdominal pain
CPT/HCPCS: 74177; 80048; 80076; 81001; 83690; 85025; 96361; 96372; 96374; 96375; 99283; J7030; Q9967; A4216; J2405

== ENCOUNTER 2024-12-12 10:53 | Emergency (ER) | payer OTHER, SELFPAY ==
[2024-12-12 10:54] VITALS: BP 130/82; PULSE 82; RESP 16; TEMP 36.7; O2SAT 98; BMI 22.8
--- NOTE | 2024-12-12 11:40 | EDS_ITS ---
HPI <SID Valverde - Last Filed: 12/12/24 13:26> History of Present Illness Chief Complaint: General Illness Narrative Narrative: Patient is a 74-year-old male with history of homelessness, anxiety, depression, PTSD, [facility], and per the patient has history of lung cancer of the right lung. Patient [place] last 6 [place] 7 months. He called the nurse hotline today, because he has been having some troubles with his fear secondary to his PTSD, he is having difficulty dealing with the war in the [place] the [facility] secondary to his family being there. He also has history of peripheral neuropathy. Patient states that he was getting frustrated with the nurse on-call, especially when he started asking questions if they wanted to hurt himself or he has guns in the house. The nurse on-call then called the ambulance who brought him here. Patient denies any suicidal homicidal ideation. Patient states he is mostly here because of frustration. [facility] <SID Valverde - Last Filed: 12/12/24 13:26> [facility] Medical History (Updated 12/12/24 @ 13:26 by SID Valverde) PTSD (post-traumatic stress disorder) Anxiety Hepatitis Smoker COPD (chronic obstructive pulmonary disease) Hypertension Diabetes Home Medications ?Medication ?Instructions ?Recorded ?Last Taken ?Type gabapentin 300 mg capsule 300 mg PO TID neuropathy 02/24/15 Unknown History albuterol 2 puff NASAL Q4H PRN SOB 05/09/21 Unknown History amlodipine 5 mg tablet 5 mg PO QHS blood pressure 05/09/21 Unknown History aspirin 81 mg tablet,delayed 81 mg PO DAILY heart health 05/09/21 Unknown History release budesonide-formoterol HFA 80 2 puff inhalation BID COPD 05/09/21 Unknown History mcg-4.5 mcg/actuation aerosol inhaler (Symbicort) cyclobenzaprine 10 mg tablet 10 mg PO TID PRN muscle spasms 05/09/21 Unknown History losartan 50 mg tablet 50 mg PO DAILY blood pressure 05/09/21 Unknown History mecobalamin (vitamin B12) 1,000 500 mcg PO DAILY supplement 05/09/21 Unknown History mcg chewable tablet sildenafil 100 mg tablet 100 mg PO DAILY PRN Erectile 05/09/21 Unknown History Dysfunction trazodone 50 mg tablet 25 mg PO QHS sleep 05/09/21 Unknown History vitamin E 200 unit tablet 200 unit PO DAILY supplement 05/09/21 Unknown History atorvastatin 80 mg tablet 80 mg PO QHS #90 tabs 05/12/21 Unknown Rx insulin aspart U-100 100 unit/mL subcut 12/12/24 Unknown History (3 mL) subcutaneous pen (Novolog FlexPen U-100 Insulin aspart) Allergy/AdvReac Type Severity Reaction Status Date / Time No Known Allergies Allergy Verified 12/12/24 11:08 Family History Mother CVA (cerebral vascular accident) Surgical History Hx of appendectomy Social History Smoking Status: Current some day smoker tobacco type: cigarettes ROS <SID Valverde - Last Filed: 12/12/24 13:26> ROS ED ROS Narrative Constitutional: Negative for fever, chills, weight loss, weakness Eyes: Negative for vision loss, vision change, double vision ENT: Negative for any sore throat, ear pain, congestion Cardiovascular: Negative for any chest pain, tightness, palpitations Respiratory: Negative for any cough, sputum production, hemoptysis, dyspnea, dyspnea on exertion, orthopnea Gastrointestinal: Negative for any abdominal pain, nausea, vomiting, diarrhea, constipation, blood in stool, blood in vomit : Negative for any urinary frequency, dysuria, retention, blood in urine Muscle skeletal: Negative for any neck pain, back pain. Positive for hand and feet pain Neurological: Negative for any headache, syncope, dizziness Skin: Negative for any rashes, itching, abrasions, lacerations Psychiatric: Negative for any suicidal ideation, homicidal ideation. Positive for anxiety, depression, stress reaction Hematologic: Negative for any excessive bruising, easy bleeding EXAM <SID Valverde - Last Filed: 12/12/24 13:26> Physical Exam Narrative Exam Narrative: Vital signs reviewed. Patient is alert and orient x 4. Patient is calm, patient is not saying anything regarding suicidal homicidal ideation. He does seem to be tearful, and more anxious. HEET: Head normocephalic atraumatic, TMs clear bilaterally. Posterior pharynx is clear, moist mucous membranes. Nares clear bilaterally. Neck: Supple with no lymphadenopathy or tenderness. No signs of meningismus. Cardiac: Regular rate and rhythm no murmurs gallops or rubs, equal peripheral pulses bilaterally. Respiratory: Lungs clear to auscultation bilaterally. No chest tenderness. Abdomen: Soft, nontender, nondistended. No abdominal bruit or pulsatile masses. No hepatosplenomegaly Extremities: No peripheral edema, no signs of gross trauma or deformity. Active full range of motion of all extremities. Neuro: Cranial nerves II through XII intact, no focal neurological deficits. Skin: Clean dry and intact with no rash, purpura, petechiae, vesicles or pustules. Backs/flank: No CVA tenderness, no midline spinal tenderness, no deformity. Psych: Normal mood and affect. No SI, HI or acute psychosis. Const Vital Signs: 12/12/24 10:54 12/12/24 11:20 Temperature 98.1 F Temperature Source Oral Pulse Rate 82 Respiratory Rate 16 Respiratory Effort Normal Non-Labored Respiratory Pattern Normal Blood Pressure 130/82 H Blood Pressure Mean 98 Pulse Ox 98 Oxygen Delivery Method Room Air Positive well nourished and well developed General Appearance ED: well developed <Dr. Juvencio Shen MD - Last Filed: 12/12/24 12:25> Physical Exam Const Vital Signs: 12/12/24 10:54 12/12/24 11:20 Temperature 98.1 F Temperature Source Oral Pulse Rate 82 Respiratory Rate 16 Respiratory Effort Normal Non-Labored Respiratory Pattern Normal Blood Pressure 130/82 H Blood Pressure Mean 98 Pulse Ox 98 Oxygen Delivery Method Room Air MDM <SID Valverde - Last Filed: 12/12/24 13:26> [facility] Lab Data Labs: Laboratory Results - last 24 hr 12/12/24 11:50 POC Glucose 358 H Treatment and Re-Evaluation :: Differential diagnosis includes however is not limited to: Suicidal ideation, homicidal ideation, stress reaction, diabetic peripheral neuropathy, homelessness, hopelessness Patient appears generally well, vital signs are stable, patient is nontoxic- appearing. Presenting to the emergency department for multiple complaints. Patient states he is mostly here because he was frustrated with the nurse front desk officer. He states that he just has a lot of fear regarding multiple factions in his life, as well as some pain in his hands and feet. Patient refuses to get any blood work. Patient would like to talk to the social secretary. I did put in a social work consult. Patient's blood glucose was 358. I did consult social work for this patient. At this time, social work did speak with the patient, there is no concern for any SI or HI. I do believe that the patient stable for discharge. I do believe the patient was more frustrated today, I do not believe he poses a threat to himself or others. However I do believe the patient does need outpatient therapy. Patient will be given multiple referrals, social work will help him set up different things [facility] and other [facility]. Patient is happy with the plan of care, and is stable for discharge. <Dr. Juvencio Shen MD - Last Filed: 12/12/24 12:25> [facility] MDM Narrative Medical decision making narrative: I have personally performed a face to face assessment of the patient and have reviewed the DONI Note. I performed a substantive portion of the visit including all aspects of the following. My sierra findings include: History is [74-year-old male history of lung cancer. Was on the phone today at the [facility] and sadly there was a miscommunication and they sent him in for evaluation. He does admit to being mildly depressed. But he says I want to live. I am not suicidal. He denies making suicidal threats. Well-appearing 74-year-old male. Vital signs are stable afebrile. He does not look septic toxic or any distress. H EENT exam pupils round react light. No facial trauma. No droop. Moist weeks membranes. Normal speech. Neck nontender no lymphadenopathy. Lungs clear to auscultation bilaterally. Heart regular rate and rhythm rate about 80 no murmur. Chest wall and ribs nontender. Abdomen soft nontender. Back nontender. No signs of trauma. Moving all 4 extremities. 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 Normal dorsi plantarflexion. Neurologically is awake and alert. Answer questions following commands. He knows the month and the year.] Exam is [see above] Medical Decision Making [patient does not want any labs drawn. Will have our social secretary talk to him. Currently I do not have a high suspicion he is a danger to himself. He denies being suicidal thoughts. After his social secretary evaluation will discuss a plan. We did check a blood sugar was 358 he is a known diabetic.] Other additions or changes: [None] History & Record Review Discussion w/independent historian: Patient Lab Data Labs: Laboratory Results - last 24 hr 12/12/24 11:50 POC Glucose 358 H Discharge Plan Triage Chief Complaint: General Illness ED Midlevel Provider: Hubert De Paz ED Provider: Juvencio Shen Dx/Rx/DC Orders Clinical Impression: Anxiety, Hyperglycemia due to diabetes mellitus, History of peripheral neuropathy Instructions: Blood Sugar Check Steps, Diabetes and Illness, ED Anxiety Reaction Prescriptions: No Action gabapentin 300 MG capsule 300 mg PO TID losartan 50 mg Tablet 50 mg PO DAILY cyclobenzaprine 10 mg Tablet 10 mg PO TID PRN (Reason: muscle spasms) trazodone 50 mg Tablet 25 mg PO QHS amlodipine 5 mg Tablet 5 mg PO QHS budesonide-formoterol [Symbicort] 80-4.5 mcg/actuation Hfa Aerosol Inhaler 2 puff INHALATION BID albuterol 2 UNITS 2 puff NASAL Q4H PRN (Reason: SOB) aspirin 81 mg Tablet,Delayed Release (Dr/Ec) 81 mg PO DAILY sildenafil 100 mg Tablet 100 mg PO DAILY PRN (Reason: Erectile Dysfunction) vitamin E 200 unit Tablet 200 unit PO DAILY mecobalamin (vitamin B12) 1,000 mcg Tablet,Chewable 500 mcg PO DAILY atorvastatin 80 mg tablet 80 mg PO QHS Qty: 90 0RF insulin aspart U-100 [Novolog FlexPen U-100 Insulin] 100 unit/mL (3 mL) insulin pen subcut [facility] [[facility] Provider] - Activity Restrictions/Additional Instructions: You did see a social work today at the hospital. She has given you multiple referrals. Please check your blood sugar regularly, it was 358 today which is high and can increase your pain to your legs and feet. Return for any concerns. Print Language: Kiswahili Disposition Disposition: Home, Self Care
[2024-12-12 12:08] LABS: Bedside Glucose 358 mg/dL (74-106)
--- NOTE | 2024-12-12 13:15 | CM.ED ---
Social Work: Date of referral: 12/12/2024 Reason for referral: discharge planning/mental health/patient request Referred by: Hubert De Paz artificial marble worker met with patient to discuss current needs. Patient provided consent to social work visit. Patient reported he had [facility] where [facility] thought he would be able to make various appointments with healthcare professionals, was being asked questions about whether or not he felt safe, patient reported he became frustrated and attempted to terminate the call and the nurse dispatched EMS to his apartment who brought patient to [facility]. Patient was aloneat the time of the visit. Patient denied having any suicidal or homicidal thoughts/ideations and stated I'm 74 and I'm trying to live. Patient stated he has a desire to live to see his grandchildren grow up and just needs assistance with his issues. 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 Patient relies on what he can order for food which isn't always diabetic friendly. Patient reported his blood sugar isn't always managed and patient admitted that he forgets to take his medication some days for days at a time. 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 Patient has PTSD. Patient is afraid for his family in [place] and stated he has over 20 grandchildren there currently, some of whom are in the . [facility]. Patient has a desire to get connected with a psychiatrist, mental health counselor, an county ordinary, mechanical pencils assembler, dentist (bleeding gums), home health aide and home delivered meals. Patient denied being interested in an Assisted Living facility at this time because they would take most of patient's money. artificial marble worker provided patient with information/referrals for all things requested and in addition, provided patient with information on a medication dispenser/alarm and [facility], application for Medicaid and Crisis numbers. Patient denied any suicidal ideation, homicidal ideation and denied any firearms in the home or access to lethal means. Patient did reported that he has a pull cord in his apartment. artificial marble worker also provided patient with information on an emergency response device. artificial marble worker provided fall prevention education. Patient has a brother who resides in [place] and a sister who resides in [place]. Minimal local supports. artificial marble worker provided all needed resources and also encouraged patient to reach out the [place] certified social workers in health care who can assist with any needed paperwork/appointments and can further assist patient with any and most needs which patient verbalized he understood. Nothing else needed at this time. Juana Granados, IP NETWORK ARCHITECT, VACUUM DRIER OPERATOR
[2024-12-12 13:46] VITALS: BP 135/78; PULSE 83; RESP 16; O2SAT 99
== END 2024-12-12 14:31 | disposition home or self-care (01) ==
PROVIDERS: Emergency Provider Emergency Medicine; Visit Provider Emergency Medicine
DX: F41.9 Anxiety disorder, unspecified (principal); J44.9 Chronic obstructive pulmonary disease, unspecified; E11.65 Type 2 diabetes mellitus with hyperglycemia; E11.42 Type 2 diabetes mellitus with diabetic polyneuropathy; Z79.4 Long term (current) use of insulin; I10 Essential (primary) hypertension; Z59.00 Homelessness unspecified; Z85.118 Personal history of other malignant neoplasm of bronchus and lung; Z79.82 Long term (current) use of aspirin; Z79.51 Long term (current) use of inhaled steroids; F17.210 Nicotine dependence, cigarettes, uncomplicated
CPT/HCPCS: 82962; 99284

== ENCOUNTER 2025-04-23 21:00 | Emergency (ER) | payer OTHER, SELFPAY ==
[2025-04-23] VITALS (9 sets, daily range): BP systolic 140–171; BP diastolic 85–105; PULSE 80–108; RESP 20–25; TEMP 37; O2SAT 99–100; BMI 20.8
--- NOTE | 2025-04-23 21:27 | EKG12_ITS ---
Test Reason : DYSRHYTHMIA Blood Pressure : */* mmHG Vent. Rate : 87 BPM Atrial Rate : 87 BPM P-R Int : 172 ms QRS Dur : 84 ms QT Int : 368 ms P-R-T Axes : 34 62 28 degrees QTcB Int : 442 ms Normal sinus rhythm Normal ECG Confirmed by Adams Connell ([id number]), newspaper copy editor KATIE ABRAHAM ([id number]) on 04/26/2025 10:51:11 AM Referred By: Confirmed By: Adams Connell
--- NOTE | 2025-04-23 21:27 | CT_ITS ---
PROCEDURE: STROKE BRAIN/HEAD WITHOUT CONT N/A REASON FOR EXAM: NEURO DEFICIT, ACUTE, STROKE SUSPECTED TECHNIQUE: Head CT without intravenous contrast. Coronal and Sagittal reconstruction series were provided. One or more dose reduction techniques were used (e.g., Automated exposure control, adjustment of the mA and/or kV according to patient size, use of iterative reconstruction technique. RADIATION DOSE SUMMARY: CTDlvol: 44.99+ 24.91+ 18.87 mGy DLP: 1598.74 mGycm COMPARISON: 05/09/2021. FINDINGS: Brain: Extensive low density in the deep cerebral white matter most likely represents advanced chronic small vessel ischemic disease. No evidence of acute fracture or dislocation. CSF Spaces: Moderate generalized cerebral atrophy Sinuses/Mastoids: Clear at visualized levels Bones: The calvarial vault and skull base are intact. CT/STROKE Brain/Head without Cont IMPRESSION: NO ACUTE FINDINGS. Consider MRI if clinically indicated. Parenchymal atrophy and chronic microvascular ischemia. Reading Location: [id number]
--- NOTE | 2025-04-23 21:27 | CT_ITS ---
PROCEDURE: STROKE CTA HEAD AND NECK W/CON 04/23/2025 REASON FOR EXAM: NEURO DEFICIT, ACUTE, STROKE SUSPECTED TECHNIQUE: CTA imaging of the head and neck from the aortic arch to the skull vertex with out contrast and with intravenous contrast. Multiplanar and multisequence images were obtained. CONTRAST: Isovue 370 VOLUME: 100 mL. One or more dose reduction techniques were used (e.g., Automated exposure control, adjustment of the mA and/or kV according to patient size, use of iterative reconstruction technique). RADIATION DOSE SUMMARY: CTDlvol: 44.99+ 24.91+ 18.87 mGy DLP: 1598.74 mGycm COMPARISON: 05/09/2021. FINDINGS: Aortic Arch: Patent. Brachiocephalic and Subclavians: Pain. RIGHT Carotid: Right CCA: Patent. Right ICA: Proximal atherosclerosis. Maximum stenosis (NASCET): 50% % Right ECA: Patent. LEFT Carotid: Left CCA: Patent. Left ICA: Proximal atherosclerosis. Maximum stenosis (NASCET): 30% % Left ECA: Patent. Vertebrals: Right is dominant to the left. RIGHT Vertebral: Patent. LEFT Vertebral: Distally occluded similar to the prior CTA. Anatomy: [place] anatomy is normal. Aneurysm or avm: No intracranial aneurysms or large vascular malformations are identified. Anterior cerebral arteries: Unremarkable: Middle cerebral arteries: Unremarkable. Basilar artery: Unremarkable. Posterior cerebral arteries: Unremarkable. Other major branches of the posterior circulation: Unremarkable. Other findings: Lungs: Large right apical 9.0 x 6.1 cm heterogeneous mass abutting the mediastinum. Bones: Degenerative changes of the spine. CT/STROKE CTA Head AND Neck W/Con IMPRESSION: Distally occluded left vertebral artery similar to the prior CTA. Very large right apical mass suspicious for malignancy. Reading Location: [place] [id number]
--- NOTE | 2025-04-23 21:28 | EDS_ITS ---
HPI <Dr. Steven Tejeda DO - Last Filed: 04/23/25 23:47> History of Present Illness Chief Complaint: Neuro S/Sx Informant: patient Onset/Context/Timing Onset: Today Context: Sudden Onset Timing: Continuous Quality: Off balance Location: Generalized Worsened by: Standing Relieved by: Nothing Narrative Narrative: Patient presents with not feeling right. Patient states he felt fine this morning when he woke up. Patient states he has been feeling off balance since approximately 7 AM this morning. Patient states his symptoms are worse with standing. Patient states he feels like he wants to fall to the left. Patient admits to some pain in his chest. Patient admits to some subjective chills. Patient states he fell approximately 2 weeks ago and hit the back of his head and both shoulders. Patient does not take any anticoagulants. Patient was also recently diagnosed with lung cancer in his right lung. [facility] <Dr. Steven Tejeda DO - Last Filed: 04/23/25 23:47> [facility] Medical History Kidney stones Neuropathy PTSD (post-traumatic stress disorder) Anxiety Hepatitis Smoker COPD (chronic obstructive pulmonary disease) Hypertension Diabetes Home Medications ?Medication ?Instructions ?Recorded ?Last Taken ?Type gabapentin 300 mg capsule 300 mg PO TID neuropathy 01/09 Unknown History albuterol 2 puff NASAL Q4H PRN SOB Unknown History amlodipine 5 mg tablet 5 mg PO QHS blood pressure 0 05/09/21 Unknown History aspirin 81 mg tablet,delayed 81 mg PO DAILY heart heal th 05/09/21 Unknown History release budesonide-formoterol HFA 80 2 puff inhalation BID [employer] D 05/09/21 Unknown History mcg-4.5 mcg/actuation aerosol inhaler (Symbicort) cyclobenzaprine 10 mg tablet 10 mg PO TID PRN muscle s pasms 05/09/21 Unknown History losartan 50 mg tablet 50 mg PO DAILY blood pressur e 05/09/21 Unknown History mecobalamin (vitamin B12) 1,000 500 mcg PO DAILY suppl ement 05/09/21 Unknown History mcg chewable tablet sildenafil 100 mg tablet 100 mg PO DAILY PRN Erectile 05/09/21 Unknown History Dysfunction trazodone 50 mg tablet 25 mg PO QHS sleep 05/09/21 Unknown History vitamin E 200 unit tablet 200 unit PO DAILY supplement 05/09/21 Unknown History atorvastatin 80 mg tablet 80 mg PO QHS #90 tabs Unknown Rx insulin aspart U-100 100 unit/mL subcut 12/12/24 Unkno wn History (3 mL) subcutaneous pen (Novolog FlexPen U-100 Insulin aspart) diazepam 2 mg tablet (Valium) 2 mg PO TID PRN vertigo/ dizziness 04/24/25 Unknown Rx 5 days #15 tabs Allergy/AdvReac Type Severity Reaction Status Date / Time No Known Allergies Allergy Verified 04/23/25 21:01 Family History Mother CVA (cerebral vascular accident) Surgical History Hx of appendectomy Social History household members: none housing: apartment Smoking Status: Current some day smoker tobacco type: cigarettes and cigars ROS <Dr. Steven Tejeda, DO - Last Filed: 04/23/25 23:47> ROS ED Constitutional Constitutional ED: Reports chills and subjective; Denies fever(s) Eyes Eyes: Denies blurry vision or change in vision ENT ENT ED: Denies rhinorrhea or sore throat Cardiovascular Cardiovascular: Reports chest pain; Denies palpitations Respiratory/Chest Respiratory/Chest: Denies cough or dyspnea Gastrointestinal Gastrointestinal: Denies nausea or vomiting Genitourinary Genitourinary ED: Denies dysuria or hematuria Musculoskeletal Musculoskeletal: Reports back pain and neck pain Integumentary Denies abscess or rash Neurologic Neurologic: Reports headache(s) and weakness Allergic/Immunologic Allergic/Immunologic ED: Denies mouth swelling or urticaria EXAM <Dr. Steven Tejeda, - Last Filed: 04/23/25 23:47> Physical Exam Const Vital Signs: 04/23/25 21:02 04/23/25 21:27 04/23/25 21:34 Temperature 98.6 F Temperature Source Oral Pulse Rate 93 85 Pulse Rate [Lying] Pulse Rate [Sitting (for 1 minute prior to obtaining)] Pulse Rate [Standing (for 1 minute prior to obtaining)] Respiratory Rate 25 H 23 H Blood Pressure 171/90 H 140/105 H Blood Pressure [Lying] Blood Pressure [Sitting (for 1 minute prior to obtaining)] Blood Pressure [Standing (for 1 minute prior to obtaining)] Blood Pressure Mean 117 116 Blood Pressure Mean [Lying] Blood Pressure Mean [Sitting (for 1 minute prior to obtaining)] Blood Pressure Mean [Standing (for 1 minute prior to obtaining)] Pulse Ox 99 100 99 Oxygen Delivery Method Room Air Room Air Room Air 04/23/25 21:57 04/23/25 22:01 04/23/25 22:27 Temperature Temperature Source Pulse Rate 82 85 84 Pulse Rate [Lying] Pulse Rate [Sitting (for 1 minute prior to obtaining)] Pulse Rate [Standing (for 1 minute prior to obtaining)] Respiratory Rate 25 H 22 H 22 H Blood Pressure 158/89 H 158/89 H 155/89 H Blood Pressure [Lying] Blood Pressure [Sitting (for 1 minute prior to obtaining)] Blood Pressure [Standing (for 1 minute prior to obtaining)] Blood Pressure Mean 112 112 111 Blood Pressure Mean [Lying] Blood Pressure Mean [Sitting (for 1 minute prior to obtaining)] Blood Pressure Mean [Standing (for 1 minute prior to obtaining)] Pulse Ox 100 100 99 Oxygen Delivery Method Room Air Room Air Room Air 04/23/25 23:00 04/23/25 23:30 04/23/25 23:39 Temperature Temperature Source Pulse Rate 80 86 Pulse Rate [Lying] 85 Pulse Rate [Sitting (for 1 minute prior to obtaining)] 83 Pulse Rate [Standing (for 1 minute prior to obtaining)] 108 H Respiratory Rate 22 H 20 H Blood Pressure 165/85 H 151/85 H Blood Pressure [Lying] 156/91 H Blood Pressure [Sitting (for 1 minute prior to obtaining)] 160/90 H Blood Pressure [Standing (for 1 minute prior to obtaining)] 170/96 H Blood Pressure Mean 111 107 Blood Pressure Mean [Lying] 112 Blood Pressure Mean [Sitting (for 1 minute prior to obtaining)] 113 Blood Pressure Mean [Standing (for 1 minute prior to obtaining)] 120 Pulse Ox 99 99 Oxygen Delivery Method Room Air Room Air 04/24/25 00:00 Temperature Temperature Source Pulse Rate 80 Pulse Rate [Lying] Pulse Rate [Sitting (for 1 minute prior to obtaining)] Pulse Rate [Standing (for 1 minute prior to obtaining)] Respiratory Rate 21 H Blood Pressure 152/86 H Blood Pressure [Lying] Blood Pressure [Sitting (for 1 minute prior to obtaining)] Blood Pressure [Standing (for 1 minute prior to obtaining)] Blood Pressure Mean 108 Blood Pressure Mean [Lying] Blood Pressure Mean [Sitting (for 1 minute prior to obtaining)] Blood Pressure Mean [Standing (for 1 minute prior to obtaining)] Pulse Ox 98 Oxygen Delivery Method Room Air Positive well nourished and well developed General Appearance ED: well developed and NAD HEENT Reports moist mucous membranes Eyes PERRL and EOMs intact bilaterally Eyes Narrative: There is mild nystagmus with right lateral gaze. Neck supple and no JVD Resp normal respiratory effort and clear to auscultation bilaterally Cardio regular rate and regular rhythm GI non-tender and non-distended Palpation: soft Extremity normal to inspection General Extremety ED: Negative for edema or tenderness General Extremity: Negative for edema Neuro oriented x3, CN's II-XII intact bilaterally and no sensory deficits noted Neuro Narrative: [id number] is intact bilaterally. Sensorium / Orientation: alert Motor Exam: strength 5/5 throughout Psych mental status grossly normal <Dr. Tej Amado, DO - Last Filed: 04/24/25 00:17> Physical Exam Const Vital Signs: 04/23/25 21:02 04/23/25 21:27 04/23/25 21:34 Temperature 98.6 F Temperature Source Oral Pulse Rate 93 85 Pulse Rate [Lying] Pulse Rate [Sitting (for 1 minute prior to obtaining)] Pulse Rate [Standing (for 1 minute prior to obtaining)] Respiratory Rate 25 H 23 H Blood Pressure 171/90 H 140/105 H Blood Pressure [Lying] Blood Pressure [Sitting (for 1 minute prior to obtaining)] Blood Pressure [Standing (for 1 minute prior to obtaining)] Blood Pressure Mean 117 116 Blood Pressure Mean [Lying] Blood Pressure Mean [Sitting (for 1 minute prior to obtaining)] Blood Pressure Mean [Standing (for 1 minute prior to obtaining)] Pulse Ox 99 100 99 Oxygen Delivery Method Room Air Room Air Room Air 04/23/25 21:57 04/23/25 22:01 04/23/25 22:27 Temperature Temperature Source Pulse Rate 82 85 84 Pulse Rate [Lying] Pulse Rate [Sitting (for 1 minute prior to obtaining)] Pulse Rate [Standing (for 1 minute prior to obtaining)] Respiratory Rate 25 H 22 H 22 H Blood Pressure 158/89 H 158/89 H 155/89 H Blood Pressure [Lying] Blood Pressure [Sitting (for 1 minute prior to obtaining)] Blood Pressure [Standing (for 1 minute prior to obtaining)] Blood Pressure Mean 112 112 111 Blood Pressure Mean [Lying] Blood Pressure Mean [Sitting (for 1 minute prior to obtaining)] Blood Pressure Mean [Standing (for 1 minute prior to obtaining)] Pulse Ox 100 100 99 Oxygen Delivery Method Room Air Room Air Room Air 04/23/25 23:00 04/23/25 23:30 04/23/25 23:39 Temperature Temperature Source Pulse Rate 80 86 Pulse Rate [Lying] 85 Pulse Rate [Sitting (for 1 minute prior to obtaining)] 83 Pulse Rate [Standing (for 1 minute prior to obtaining)] 108 H Respiratory Rate 22 H 20 H Blood Pressure 165/85 H 151/85 H Blood Pressure [Lying] 156/91 H Blood Pressure [Sitting (for 1 minute prior to obtaining)] 160/90 H Blood Pressure [Standing (for 1 minute prior to obtaining)] 170/96 H Blood Pressure Mean 111 107 Blood Pressure Mean [Lying] 112 Blood Pressure Mean [Sitting (for 1 minute prior to obtaining)] 113 Blood Pressure Mean [Standing (for 1 minute prior to obtaining)] 120 Pulse Ox 99 99 Oxygen Delivery Method Room Air Room Air 04/24/25 00:00 Temperature Temperature Source Pulse Rate 80 Pulse Rate [Lying] Pulse Rate [Sitting (for 1 minute prior to obtaining)] Pulse Rate [Standing (for 1 minute prior to obtaining)] Respiratory Rate 21 H Blood Pressure 152/86 H Blood Pressure [Lying] Blood Pressure [Sitting (for 1 minute prior to obtaining)] Blood Pressure [Standing (for 1 minute prior to obtaining)] Blood Pressure Mean 108 Blood Pressure Mean [Lying] Blood Pressure Mean [Sitting (for 1 minute prior to obtaining)] Blood Pressure Mean [Standing (for 1 minute prior to obtaining)] Pulse Ox 98 Oxygen Delivery Method Room Air [facility] <Dr. Steven Tejeda, DO - Last Filed: 04/23/25 23:47> [facility] Narrative Medical decision making narrative: Differential diagnosis includes stroke, intracranial bleeding, vertigo, labyrinthitis, electrolyte abnormality, dehydration, hypoglycemia, cardiac dysrhythmia, cardiac ischemia, neuropathy, and anxiety. CT scan of the brain will be obtained to assess for intracranial bleeding and stroke. CTA of the head and neck will be obtained to assess for large vessel occlusion and carotid stenosis. EKG will be obtained to assess for cardiac dysrhythmia and cardiac ischemia. Chest x-ray will be obtained to assess for pneumonia and bronchitis. CBC will be obtained to assess for leukocytosis and anemia. Basic metabolic profile will be obtained to assess for electrolyte abnormality and renal function. PT with INR PTT will be obtained to assess for coagulopathy. High- sensitivity troponin will be obtained to assess for cardiac ischemia. 2-hour repeat high-sensitivity troponin will be obtained to assess for ongoing cardiac ischemia. History & Record Review Additional record(s) reviewed:: Prior ED visit and Prior labs Lab Data Attestation: I reviewed the patient's lab results. Lab results narrative: CBC was reviewed. There is a mild leukocytosis of 12.9. There is a mild anemia with a hemoglobin of 9.3 and hematocrit of 31.1. Platelets were normal. Basic metabolic profile was reviewed. Glucose was mildly elevated to 92. The remainder is within normal limits. PT with INR and PTT were reviewed and were within normal limits. High-sensitivity troponin was reviewed and was slightly elevated at 26. Labs: Laboratory Results - last 24 hr 04/23/25 04/23/25 21:07 23:08 WBC 12.9 H RBC 4.71 Hgb 9.3 L Hct 31.1 L MCV 66.0 L MCH 19.7 L MCHC 29.9 L RDW Std Deviation 43.6 RDW Coeff of Tiffany 19.0 H Plt Count 350 MPV 9.4 Immature Gran % (Auto) 0.500 Neut % (Auto) 64.9 Lymph % (Auto) 27.6 [place] % (Auto) 4.9 Eos % (Auto) 1.9 Baso % (Auto) 0.2 Absolute Neuts (auto) 8.4 H Absolute Lymphs (auto) 3.56 Nucleated RBC % 0 PT 14.2 INR 1.1 APTT 27.9 Sodium 134 Potassium 3.9 Chloride 101 Carbon Dioxide 22.9 Anion Gap 11 BUN 20 H Creatinine 0.96 Estim Creat Clear Calc 66.44 Est GFR (MDRD) Non-Af 82 BUN/Creatinine Ratio 20.6 H Glucose 292 H Calcium 10.3 Troponin T High Sens 26 H Troponin T Hi Sens 2 Hr 27 H Radiography Diagnostic Testing: Clinical Impression(s) from Imaging Studies Brain CT 04/23/25 21:27 IMPRESSION: NO ACUTE FINDINGS. Consider MRI if clinically indicated. Parenchymal atrophy and chronic microvascular ischemia. Reading Location: [id number] Head/Neck CTA 04/23/25 21:27 IMPRESSION: Distally occluded left vertebral artery similar to the prior CTA. Very large right apical mass suspicious for malignancy. Reading Location: [id number] Chest X-Ray 04/23/25 22:30 IMPRESSION: Large right perihilar masslike opacity suspicious for malignancy. Prominent perihilar regions which may represent adenopathy. Reading Location: [id number] EKG Initial EKG: Attestation: I personally reviewed and interpreted this EKG as follows: Interpretation: Sinus Rhythm (87) and No Acute Injury Pattern Comments: EKG was obtained. On my independent interpretation, it showed a normal sinus rhythm with a rate of 87. OR interval, QRS interval, and QTc intervals were all normal. [place] was normal. There are no acute ST or T wave changes. Prior EKG tracings: available for review Prior: Unchanged (05/09/2021) Treatment and Re-Evaluation :: Patient was given IV fluids. Patient was given a dose of Valium. Patient states his dizziness has improved. Patient will be ambulated in the emergency department. If he is steady on his feet and can ambulate without difficulty, feel patient to be discharged home. If he is still unsteady on his feet, he may need reevaluation or further medication or possible admission. Care of the patient will be turned over to the oncoming physician pending results. <Dr. Tej Amado, DO - Last Filed: 04/24/25 00:17> [facility] Lab Data Labs: Laboratory Results - last 24 hr 04/23/25 04/23/25 21:07 23:08 WBC 12.9 H RBC 4.71 Hgb 9.3 L Hct 31.1 L MCV 66.0 L MCH 19.7 L MCHC 29.9 L RDW Std Deviation 43.6 RDW Coeff of Tiffany 19.0 H Plt Count 350 MPV 9.4 Immature Gran % (Auto) 0.500 Neut % (Auto) 64.9 Lymph % (Auto) 27.6 [place] % (Auto) 4.9 Eos % (Auto) 1.9 Baso % (Auto) 0.2 Absolute Neuts (auto) 8.4 H Absolute Lymphs (auto) 3.56 Nucleated RBC % 0 PT 14.2 INR 1.1 APTT 27.9 Sodium 134 Potassium 3.9 Chloride 101 Carbon Dioxide 22.9 Anion Gap 11 BUN 20 H Creatinine 0.96 Estim Creat Clear Calc 66.44 Est GFR (MDRD) Non-Af 82 BUN/Creatinine Ratio 20.6 H Glucose 292 H Calcium 10.3 Troponin T High Sens 26 H Troponin T Hi Sens 2 Hr 27 H Radiography Diagnostic Testing: Clinical Impression(s) from Imaging Studies Brain CT 04/23/25 21:27 IMPRESSION: NO ACUTE FINDINGS. Consider MRI if clinically indicated. Parenchymal atrophy and chronic microvascular ischemia. Reading Location: [id number] Head/Neck CTA 04/23/25 21:27 IMPRESSION: Distally occluded left vertebral artery similar to the prior CTA. Very large right apical mass suspicious for malignancy. Reading Location: [id number] Chest X-Ray 04/23/25 22:30 IMPRESSION: Large right perihilar masslike opacity suspicious for malignancy. Prominent perihilar regions which may represent adenopathy. Reading Location: [id number] Treatment and Re-Evaluation :: Patient was given IV fluids. Patient was given a dose of Valium. Patient states his dizziness has improved. Patient will be ambulated in the emergency department. If he is steady on his feet and can ambulate without difficulty, feel patient to be discharged home. If he is still unsteady on his feet, he may need reevaluation or further medication or possible admission. Care of the patient will be turned over to the oncoming physician pending results. The patient was signed out to me while awaiting results of his delta troponin and his response to Valium. First troponin was 26 delta increased by a value of 1 to 27 which is not clinically significant and effectively rules him out of the cardiac algorithm. The patient was able to ambulate with a steady gait using his walker after he was medicated with Valium. Therefore at this time as CT/CTA reveals no acute hemorrhage or sign of LVO and labs confirm no acute infection or cardiac issue I feel he can be placed on Valium as this is most likely peripheral vertigo and he is otherwise safe for discharge. Please note I did discuss this plan of care with the patient he does state he is feeling better and requests to go home at this time. Discharge Plan Triage Chief Complaint: Neuro S/Sx ED Provider: Steven Tejeda Dx/Rx/DC Orders Clinical Impression: Dizziness, Cancer of right lung, Anemia Instructions: ED Vertigo, Unspecified Prescriptions: New diazepam [Valium] 2 mg tablet 2 mg PO TID PRN (Reason: vertigo/dizziness) 5 Days Qty: 15 0RF No Action gabapentin 300 MG capsule 300 mg PO TID losartan 50 mg Tablet 50 mg PO DAILY cyclobenzaprine 10 mg Tablet 10 mg PO TID PRN (Reason: muscle spasms) trazodone 50 mg Tablet 25 mg PO QHS amlodipine 5 mg Tablet 5 mg PO QHS budesonide-formoterol [Symbicort] 80-4.5 mcg/actuation Hfa Aerosol Inhaler 2 puff INHALATION BID albuterol 2 UNITS 2 puff NASAL Q4H PRN (Reason: SOB) aspirin 81 mg Tablet,Delayed Release (Dr/Ec) 81 mg PO DAILY sildenafil 100 mg Tablet 100 mg PO DAILY PRN (Reason: Erectile Dysfunction) vitamin E 200 unit Tablet 200 unit PO DAILY mecobalamin (vitamin B12) 1,000 mcg Tablet,Chewable 500 mcg PO DAILY atorvastatin 80 mg tablet 80 mg PO QHS Qty: 90 0RF insulin aspart U-100 [Novolog FlexPen U-100 Insulin] 100 unit/mL (3 mL) insulin pen subcut Primary Care Provider: Carlene Haji Referrals: Carlene Haji, [employer] [Primary Care Provider] - 3-5 Days [facility] [STAFF PHYSICIAN] - 3-5 Days Activity Restrictions/Additional Instructions: Your workup today indicates your dizziness is most likely from peripheral vertigo. Take the Valium as directed to help control any recurrent dizzy symptoms. Return to the ER should you have any further concerns. You may continue all of your other home medications as directed by your doctor Print Language: Portuguese Disposition Disposition: Home, Self Care
[2025-04-23] MEDS: 0.9% Normal Saline (500mL Bag) 500 ML 999 ML IV (21:50)
[2025-04-23 21:51] LABS: Absolute Lymphocyte Count 3.56 X10^3/uL (0.83-4.51); Absolute Neutrophil Count 8.4 X10^3/uL (2.0-7.7); Basophil# 0.03 X10^3/uL; Basophil% 0.2 % (0-1); Eosinophil# 0.24 X10^3/uL; Eosinophils% 1.9 % (0-5); Hematocrit 31.1 % (40-54); Hemoglobin 9.3 g/dL (13.0-16.5); Lymphocyte # 3.56 X10^3/ul (0.83-4.51); Lymphocyte % 27.6 % (19-41); Mean Corp Hgb Conc 29.9 g/dL (32-36); Mean Corpuscular Hgb 19.7 pg (27.0-32.0); Mean Platelet Vol. 9.4 fl (6.2-12.0); Monocyte# 0.63 X10^3/uL; Monocyte% 4.9 % (0-10); NRBC Flagged by Analyzer 0 % (0-5); Neutrophil # 8.37 X10^3/uL (2.7-7.7); Neutrophil % 64.9 % (47-70); Platelet Count 350 K/mm3 (150-450); RBC Distribution Width SD 43.6 fl (35.1-43.9); Red Blood Count 4.71 M/mm3 (4.6-6.2); White Blood Count 12.9 K/mm3 (4.4-11.0)
[2025-04-23 21:55] LABS: International Normalized Ratio 1.1; Prothrombin Time (Protime)PT. 14.2 SECONDS (11.7-14.9)
[2025-04-23 21:56] LABS: Partial Thromboplast Time 27.9 Seconds (24.1-36.2)
[2025-04-23] MEDS: diazePAM 5 MG Tablet 2.5 MG PO (21:57)
[2025-04-23 22:16] LABS: Anion Gap 11 (5-15); BUN 20 mg/dL (4-19); BUN/Creat Ratio 20.6 RATIO (10-20); Calcium,Total 10.3 mg/dL (7.6-11.0); Carbon Dioxide 22.9 mmol/L (21.0-32.0); Chloride 101 mmol/L (98-108); Creatinine, Serum 0.96 mg/dL (0.70-1.20); EST Glomerular Filtration Rate 82 (>60); Estimated Creatinine Clearance 66.44 ml/min (50-250); Glucose 292 mg/dL (70-99); Potassium 3.9 mmol/L (3.3-5.1); Sodium Level 134 mmol/L (133-145); Troponin T High Sensitivity 26 ng/L (<=22)
--- NOTE | 2025-04-23 22:30 | RAD_ITS ---
PROCEDURE: CHEST 1 VIEW (PORTABLE) 04/23/2025 REASON FOR EXAM: DIZZINESS TECHNIQUE: Frontal view of the chest. COMPARISON: 05/09/2021. FINDINGS: Hardware: None Heart: The heart size is normal. Lungs: Large right perihilar masslike opacity. Bilateral hilar prominence which may represent adenopathy. Bones: Degenerative changes are identified within the thoracic spine. Other: None. RAD/Chest 1 View (Portable) IMPRESSION: Large right perihilar masslike opacity suspicious for malignancy. Prominent perihilar regions which may represent adenopathy. Reading Location: [place] [id number]
[2025-04-23 23:38] LABS: Troponin T High Sens 2 HR 27 ng/L (<=22)
[2025-04-24] VITALS: BP 152/86; PULSE 80; RESP 21; O2SAT 98
[2025-04-24 00:30] VITALS: BP 149/81; PULSE 83; RESP 25; TEMP 36.8; O2SAT 99
[2025-04-24 00:37] VITALS: BP 149/81; PULSE 83; RESP 25; TEMP 36.8; O2SAT 99
[2025-04-24 00:53] LABS: Bedside Glucose 137 mg/dL (74-106)
== END 2025-04-24 00:39 | disposition home or self-care (01) ==
PROVIDERS: Emergency Provider Emergency Medicine; PCP Nurse Practitioner Gerontology; Visit Provider Emergency Medicine
DX: R42 Dizziness and giddiness (principal); C34.91 Malignant neoplasm of unspecified part of right bronchus or lung; J44.9 Chronic obstructive pulmonary disease, unspecified; E11.40 Type 2 diabetes mellitus with diabetic neuropathy, unspecified; Z79.4 Long term (current) use of insulin; D63.0 Anemia in neoplastic disease; I10 Essential (primary) hypertension; Z79.82 Long term (current) use of aspirin; Z79.51 Long term (current) use of inhaled steroids; Z79.899 Other long term (current) drug therapy; F17.210 Nicotine dependence, cigarettes, uncomplicated; F17.290 Nicotine dependence, other tobacco product, uncomplicated
CPT/HCPCS: 70450; 70496; 70498; 71045; 80048; 82962; 84484; 85025; 85610; 85730; 93005; 96360; 99285; Q9967; A4216

== ENCOUNTER 2025-05-04 11:12 | Emergency (ER) | payer OTHER, SELFPAY ==
[2025-05-04 11:13] VITALS: BP 139/90; PULSE 96; RESP 20; TEMP 36.8; O2SAT 97; BMI 18.8
--- NOTE | 2025-05-04 11:27 | EKG12_ITS ---
Test Reason : Blood Pressure : */* mmHG Vent. Rate : 95 BPM Atrial Rate : 95 BPM P-R Int : 152 ms QRS Dur : 82 ms QT Int : 358 ms P-R-T Axes : -2 50 42 degrees QTcB Int : 449 ms Normal sinus rhythm Normal ECG Confirmed by Adams Connell ([id number]), web content editor KATIE ABRAHAM ([id number]) on 05/06/2025 6:12:43 AM Referred By: Confirmed By: Adams Connell
--- NOTE | 2025-05-04 11:27 | CT_ITS ---
PROCEDURE: BRAIN/HEAD WITHOUT CONTRAST 05/04/2025 REASON FOR EXAM: INJURY TECHNIQUE: Head CT without intravenous contrast. Coronal and Sagittal reconstruction series were provided. One or more dose reduction techniques were used (e.g., Automated exposure control, adjustment of the mA and/or kV according to patient size, use of iterative reconstruction technique. RADIATION DOSE SUMMARY: DLP: 1965.25 mGycm COMPARISON: Head CT of 04/23/2025. FINDINGS: Brain: Stable bilateral cerebral white matter hypodensities are again seen, not significantly changed since the prior study, and by far most prominent again right parietal lobe. No new or worsened process is seen. No intracranial hemorrhage is seen. No extra-axial fluid collection is noted. No orbital pathology is noted. CSF Spaces: Mild generalized cerebral atrophy Sinuses/Mastoids: Clear at visualized levels Bones: No acute osseous process is seen CT/Brain/Head without Contrast IMPRESSION: Stable examination, without intracranial hemorrhage or other acute process note d. Reading Location: [address]
--- NOTE | 2025-05-04 11:27 | CT_ITS ---
PROCEDURE: SPINE CERVICAL WITHOUT CONTRAS 05/04/2025 REASON FOR EXAM: INJURY History of fall. TECHNIQUE: Cervical spine CT without contrast. Coronal and Sagittal reconstruction series were provided. One or more dose reduction techniques were used (e.g., Automated exposure control, adjustment of the mA and/or kV according to patient size, use of iterative reconstruction technique RADIATION DOSE SUMMARY: CTDlvol: 13.49 mGy DLP: 616.82 mGycm COMPARISON: None FINDINGS: Alignment: Straightening of the normal cervical lordosis. Vertebrae: Anterior spondylosis. Soft Tissues: Soft tissue mass in the right upper lobe. Right supraclavicular lymphadenopathy. Other: Atherosclerotic calcification of the carotid bifurcations. C1-2: Degenerative changes of the atlantoaxial joint. C2-3: Facet joint osteoarthritis with the hypertrophy worse on the left side. No significant stenosis seen. C3-4: Minimal anterior listhesis of C3 on C4 secondary to facet joint osteoarthritis and hypertrophy. Bilateral neural foraminal stenosis. C4-5: Disc space height is relatively well-maintained. Hypertrophy of the facet joints. No significant stenosis seen. C5-6: Moderate degree of disc space narrowing. Spondylosis. Uncovertebral arthrosis. Bilateral neural foraminal stenosis. C6-7: Moderate degree of disc space narrowing. Uncovertebral arthrosis. Mild bilateral neural foraminal stenosis. C7-T1: Unremarkable CT/Spine Cervical without Contras IMPRESSION: NO ACUTE CERVICAL FRACTURE. Multilevel facet osteoarthritis and hypertrophy as well as neural foraminal akrla nosis. Right upper lobe pulmonary mass. Reading Location: [facility]
--- NOTE | 2025-05-04 11:27 | CT_ITS ---
PROCEDURE: CHEST WITHOUT CONTRAST 05/04/2025 REASON FOR EXAM: RIGHT RIB INJURY Recent fall. TECHNIQUE: Chest CT without contrast. Coronal and Sagittal reconstruction series were provided. One or more dose reduction techniques were used (e.g., Automated exposure control, adjustment of the mA and/or kV according to patient size, use of iterative reconstruction technique RADIATION DOSE SUMMARY: CTDlvol: 22.99 mGy DLP: 535.50 mGycm COMPARISON: Prior chest x-ray dated April 23, 2025. FINDINGS: Hardware: EKG electrodes. Lymph nodes: Right hilar lymph nodes and right upper lobe mass. A neoplastic process should be ruled out. Heart and Vasculature: Coronary artery calcifications are noted. Coronary Artery Calcifications: Present Lungs and Airways: There is a 5.6 cm 7 cm by 10 cm mass in the right upper lobe abutting the mediastinum with right hilar lymph nodes. Scarring at the lung bases more prominent at the right lung base. There is also evidence of a 1.8 cm by 1.7 cm nodule in the left lower lobe. A metastatic deposit should be ruled out. Pleura: No pleural effusion. Upper Abdomen: Unremarkable. Bones: Degenerative changes of the thoracic spine. The right shoulder is unremarkable. CT/Chest without Contrast IMPRESSION: Co large mass in the right upper lobe with right hilar lymphadenopathy. A neop lastic process should be ruled out. Metastatic nodule in the left lower lobe with bibasilar scarring worse at the r ight lung base. Reading Location: [place] [address]
--- NOTE | 2025-05-04 11:27 | RAD_ITS ---
PROCEDURE: SHOULDER MIN 2 VIEWS 05/04/2025 REASON FOR EXAM: INJURY Right shoulder pain following injury. TECHNIQUE: Four views of the right shoulder were obtained. COMPARISON: None FINDINGS: Bones: No fracture is seen. Joints: No evidence of dislocation. Soft tissues: Right upper lobe soft tissue density. Underlying mass should be ruled out. Findings suggestive of scarring at the right lung base. Other: RAD/Shoulder min 2 Views IMPRESSION: Shoulder is unremarkable. Soft tissue density seen in the right upper lobe as described. Correlation wit h a CT scan recommended. Reading Location: [place] [id number]
--- NOTE | 2025-05-04 11:31 | EDS_ITS ---
HPI HPI - Fall History of Present Illness Chief Complaint: Fall Informant: patient and spouse/S.O. Narrative Narrative: Brought in by EMS from home fall in the bathroom. Standing urinated felt dizzy following into the tub. Hit his head he reported passing out he is on baby aspirin. Pain to his right shoulder right ribs headache and neck pain. He ambulates with a walker at baseline. Denies cough vomiting diarrhea denies urinary symptoms. Of note was seen 10 days ago for vertigo symptoms negative workup sent home on Valium 2 mg. Been using intermittently last use yesterday evening. 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 Instructions: PT STATES HASN'T BEEN TAKING sildenafil 100 mg tablet 100 mg PO DAILY PRN Erectile 05/09/21 Unknown History Dysfunction atorvastatin 80 mg tablet 80 mg PO QHS #90 tabs Unknown Rx insulin aspart U-100 100 unit/mL 10 unit subcut TIDCM 12/12/24 Unknown History (3 mL) subcutaneous pen (Novolog FlexPen U-100 Insulin aspart) diazepam 2 mg tablet (Valium) 2 mg PO TID PRN vertigo/ dizziness 04/24/25 05/04/25 Rx 5 days #15 tabs ibuprofen 800 mg tablet (IBU) 800 mg PO Q8H 05/04/25 0 05/03/25 History insulin glargine 100 unit/mL (3 10 unit subcut QPM 09/18 Unknown History mL) subcutaneous pen (Lantus Solostar U-100 Insulin) magnesium hydroxide 400 mg/5 mL 5 ml PO DAILY PRN cons tipation 05/04/25 05/03/25 History oral suspension (Gentle Laxative (magnesium hydroxide)) ropinirole 1 mg tablet 1 mg PO DAILY 05/04/25 Unkno wn History tramadol 50 mg tablet 50 mg PO Q6H PRN pain #12 ta bs 05/04/25 Unknown Rx Allergy/AdvReac Type Severity Reaction Status Date / Time No Known Allergies Allergy Verified 05/04/25 11:24 Family History Mother CVA (cerebral vascular accident) Surgical History Hx of appendectomy Social History household members: none housing: apartment Smoking Status: Current some day smoker tobacco type: cigarettes and cigars ROS ROS ED Constitutional Constitutional ED: Denies chills, fever(s) or sweats ENT ENT ED: Denies sore throat Cardiovascular Cardiovascular: Denies chest pain, leg edema, palpitations or racing heartbeat Respiratory/Chest Respiratory/Chest: Denies cough, dyspnea or dyspnea on exertion Gastrointestinal Gastrointestinal: Denies abdominal pain, diarrhea, nausea or vomiting Genitourinary Genitourinary ED: Denies dysuria, hematuria or urinary frequency Musculoskeletal Musculoskeletal: Reports extremity pain, neck pain and other Details: Right rib pain ; Denies back pain Integumentary Denies rash or wounds Neurologic Neurologic: Reports headache(s); Denies paresthesias or weakness EXAM Physical Exam Const Vital Signs: 05/04/25 11:13 05/04/25 11:22 05/04/25 13:12 Temperature 98.3 F Temperature Source Oral Pulse Rate 96 90 Respiratory Rate 20 H Respiratory Effort Normal Non-Labored Respiratory Pattern Normal Blood Pressure 139/90 H 153/96 H Blood Pressure Mean 106 115 Pulse Ox 97 Oxygen Delivery Method Room Air Room Air Oxygen Flow Rate (L/min) 97 05/04/25 14:54 05/04/25 14:54 Temperature 98.3 F Temperature Source Pulse Rate 91 91 Respiratory Rate 16 Respiratory Effort Respiratory Pattern Blood Pressure 146/88 H 146/88 H Blood Pressure Mean 107 107 Pulse Ox 98 Oxygen Delivery Method Oxygen Flow Rate (L/min) Positive well nourished and well developed Constitutional Narrative: GCS 15. General Appearance ED: well developed and NAD HEENT Reports moist mucous membranes normocephalic and atraumatic Eyes General Eye ED: Yes normal appearance of both eyes Neck full ROM Neck Narrative: Tender palpation paracervicals, no midline tenderness or step-offs. Chest Wall Chest Narrative: Tender palpation right lower ribs, no crepitus. Chest: tenderness Resp normal respiratory effort and normal air movement Resp Narrative: Symmetric breath sounds. Effort and Inspection: symmetric chest movement; Negative for respiratory distress Cardio regular rate, regular rhythm and no murmurs Peripheral Pulses: pulses 2+ throughout GI normal to inspection, nondistended, normoactive bowel sounds and non-tender Palpation: Negative for guarding or rebound tenderness present Back/Spine Back/Spine Narrative: No midline tenderness thoracic or lumbar spine. No step-offs. Extremity normal to inspection Extremity Narrative: Full range of motion right shoulder mild proximal shoulder tenderness no elbow tenderness. No deformities. Left upper extremity no tenderness full range of motion. Lower extremities: Negative logroll. No tenderness soft compartments. Pulses intact distally. General Extremety ED: Yes tenderness; Negative for edema General Extremity: Negative for edema Neuro oriented x3, CN's II-XII intact bilaterally and no sensory deficits noted Sensorium / Orientation: awake and alert Skin no rashes or lesions noted and no wounds MDM MDM MDM Narrative Medical decision making narrative: Interventions / MDM: Differential diagnosis: Fall, head injury, neck strain, shoulder contusion, right lung mass, chest wall contusion. Diagnosis considered but do not suspect: Intracranial hemorrhage, fracture however image studies negative. My EKG interpretation: Sinus rate of 92, no ST changes. QTc 449. Imaging independently reviewed and interpreted by myself: CT brain/cervical spine: No intra hemorrhage degenerative change cervical spine. CT chest no fractures. There is right lung mass. Right shoulder x-ray 3 views: No fracture or dislocation. External documents reviewed: ED visit from 10 days ago with vertigo negative CT angiogram. Test considered but not ordered:N/A ED course: Fall while standing states had transient dizziness head injury neck injury right shoulder and rib pain. GCS is 15. Trauma scans head neck and chest along with x-rays of the right shoulder. EKG sinus rhythm. Will check basic labs. Will reevaluate. 1325: Trauma scans head neck chest negative x-ray right shoulder negative. Complaining of pain in his neck shoulder and ribs. Will treat with tramadol for which she is tolerated in the past. CT scan also notes the right upper lobe mass, discussed patient see him other this is been known for the [facility] still deciding if he wants treatment. He states he needs his follow-up for discussion has not made his decision. Will reevaluate after pain control and will attempt to ambulate. 1450: Pain was controlled patient able to ambulate with a walker. Discussed further with significant other, patient traveled out of the country to see his family in [facility] this past year since his diagnosis. He wants to discuss with his guest relations agent further prior to further treatment. Discussed this is his decision and we will respect this. If he chooses not to have treatment discussed with him for palliative versus hospice care through his physicians. I will write him for a prescription for tramadol to help with symptom control. All questions were answered. Re-evaluation: stable Disposition discussed with patient/family/significant other: Patient and significant other Case discussed with consulting clinician: N/A This note was generated with [employer] dictation software. It may contain incorrect words, spelling, and punctuation that were not noted in checking the note before signing. Lab Data Attestation: I reviewed the patient's lab results. Labs: Laboratory Results - last 24 hr 05/04/25 11:00 WBC 11.5 H RBC 4.92 Hgb 9.8 L Hct 32.4 L MCV 65.9 L MCH 19.9 L MCHC 30.2 L RDW Std Deviation 45.7 H RDW Coeff of Tiffany 20.1 H Plt Count 412 MPV 9.9 Immature Gran % (Auto) 0.500 Neut % (Auto) 61.4 Lymph % (Auto) 29.4 Kingfisher % (Auto) 6.9 Eos % (Auto) 1.5 Baso % (Auto) 0.3 Absolute Neuts (auto) 7.0 Absolute Lymphs (auto) 3.37 Nucleated RBC % 0 Platelet Estimate A Polychromasia 1+ Anisocytosis 1+ PT 14.8 INR 1.1 APTT 31.9 Sodium 136 Potassium 4.2 Chloride 97 L Carbon Dioxide 27.6 Anion Gap 11 BUN 19 Creatinine 1.14 Estim Creat Clear Calc 50.60 Est GFR (MDRD) Non-Af 67 BUN/Creatinine Ratio 16.9 Glucose 229 H Calcium 12.2 H Radiography Diagnostic Testing: Clinical Impression(s) from Imaging Studies Brain CT 05/04/25 11:27 IMPRESSION: Stable examination, without intracranial hemorrhage or other acute process noted. Reading Location: [id number] Cervical Spine CT 05/04/25 11:27 IMPRESSION: NO ACUTE CERVICAL FRACTURE. Multilevel facet osteoarthritis and hypertrophy as well as neural foraminal stenosis. Right upper lobe pulmonary mass. Reading Location: [facility]--[address] 05/04/25 11:27 IMPRESSION: Co large mass in the right upper lobe with right hilar lymphadenopathy. A neoplastic process should be ruled out. Metastatic nodule in the left lower lobe with bibasilar scarring worse at the right lung base. Reading Location: [facility]--1 Shoulder X-Ray 05/04/25 11:27 IMPRESSION: Shoulder is unremarkable. Soft tissue density seen in the right upper lobe as described. Correlation with a CT scan recommended. Reading Location: [facility]- Discharge Plan Triage Chief Complaint: Fall ED Provider: Ike Dawson Dx/Rx/DC Orders Clinical Impression: Cancer of right lung, Fall, Dizziness, Chest wall contusion, Neck strain, CHI (closed head injury), Contusion of right shoulder Instructions: ED Dizziness, Uncertain Cause, ED Head Injury (Adult), ED Rib Contusion or Minor Fracture Prescriptions: New tramadol 50 mg tablet 50 mg PO Q6H PRN (Reason: pain) Qty: 12 0RF No Action gabapentin 300 MG capsule 300 mg PO TID losartan 50 mg Tablet 50 mg PO DAILY cyclobenzaprine 10 mg Tablet 10 mg PO TID PRN (Reason: muscle spasms) amlodipine 5 mg Tablet 5 mg PO QHS budesonide-formoterol [Symbicort] 80-4.5 mcg/actuation Hfa Aerosol Inhaler 2 puff INHALATION BID aspirin 81 mg Tablet,Delayed Release (Dr/Ec) 81 mg PO DAILY sildenafil 100 mg Tablet 100 mg PO DAILY PRN (Reason: Erectile Dysfunction) atorvastatin 80 mg tablet 80 mg PO QHS Qty: 90 0RF insulin aspart U-100 [Novolog FlexPen U-100 Insulin] 100 unit/mL (3 mL) insulin pen 10 unit subcut TIDCM ropinirole 1 mg tablet 1 mg PO DAILY Rx Instructions: PT UNSURE OF STRENGTH insulin glargine [Lantus Solostar U-100 Insulin] 100 unit/mL (3 mL) insulin pen 10 unit subcut QPM Rx Instructions: PT STATES USES 10-15U QHS ibuprofen [IBU] 800 mg tablet 800 mg PO Q8H magnesium hydroxide [Gentle Laxative (mag hydrox)] 400 mg/5 mL suspension 5 ml PO DAILY PRN (Reason: constipation) diazepam [Valium] 2 mg tablet 2 mg PO TID PRN (Reason: vertigo/dizziness) 5 Days Qty: 15 0RF Primary Care Provider: Carlene Haji Referrals: Carlene Haji, [facility] [Primary Care Provider] - Activity Restrictions/Additional Instructions: Your CT head neck chest along right shoulder x-ray negative for any fracture or bleed. You have a known right lung mass. [facility] for discussion if you want future treatment. If you do not want treatment discussed with them palliative versus hospice care to help with over all plans of care with you. Use tramadol as needed for pain control. Print Language: [place]ese Disposition Disposition: Home, Self Care Discharge Date/Time: 05/04/25 14:59
[2025-05-04 11:36] LABS: Absolute Lymphocyte Count 3.37 X10^3/uL (0.83-4.51); Basophil# 0.04 X10^3/uL; Basophil% 0.3 % (0-1); Eosinophil# 0.17 X10^3/uL; Eosinophils% 1.5 % (0-5); Hematocrit 32.4 % (40-54); Hemoglobin 9.8 g/dL (13.0-16.5); Lymphocyte # 3.37 X10^3/ul (0.83-4.51); Lymphocyte % 29.4 % (19-41); Mean Corp Hgb Conc 30.2 g/dL (32-36); Mean Corpuscular Hgb 19.9 pg (27.0-32.0); Mean Corpuscular Volume 65.9 fL (80-94); Mean Platelet Vol. 9.9 fl (6.2-12.0); Monocyte# 0.79 X10^3/uL; Monocyte% 6.9 % (0-10); NRBC Flagged by Analyzer 0 % (0-5); Neutrophil # 7.03 X10^3/uL (2.7-7.7); Neutrophil % 61.4 % (47-70); POSITIVE MORPHOLOGY YES; Platelet Count 412 K/mm3 (150-450); RBC Distribution Width CV 20.1 % (11.6-14.6); RBC Distribution Width SD 45.7 fl (35.1-43.9); Red Blood Count 4.92 M/mm3 (4.6-6.2); White Blood Count 11.5 K/mm3 (4.4-11.0)
[2025-05-04 11:51] LABS: International Normalized Ratio 1.1; Prothrombin Time (Protime)PT. 14.8 SECONDS (11.7-14.9)
[2025-05-04 11:52] LABS: Partial Thromboplast Time 31.9 Seconds (24.1-36.2)
[2025-05-04 12:05] LABS: Differential Indicated SCAN CRITERIA MET
[2025-05-04 12:07] LABS: Platelet Estimate A (ADEQ); Polychromasia 1+
[2025-05-04 12:08] LABS: Anisocytosis 1+
[2025-05-04 12:12] LABS: Anion Gap 11 (5-15); BUN 19 mg/dL (4-19); BUN/Creat Ratio 16.9 RATIO (10-20); Calcium,Total 12.2 mg/dL (7.6-11.0); Carbon Dioxide 27.6 mmol/L (21.0-32.0); Chloride 97 mmol/L (98-108); Creatinine, Serum 1.14 mg/dL (0.70-1.20); EST Glomerular Filtration Rate 67 (>60); Glucose 229 mg/dL (70-99); Potassium 4.2 mmol/L (3.3-5.1); Sodium Level 136 mmol/L (133-145)
[2025-05-04 13:12] VITALS: BP 153/96; PULSE 90
[2025-05-04] MEDS: traMADol 50 MG Tablet PO (13:33)
[2025-05-04 14:54] VITALS: BP 146/88; PULSE 91; RESP 16; TEMP 36.8; O2SAT 98
== END 2025-05-04 14:59 | disposition home or self-care (01) ==
PROVIDERS: Emergency Provider Emergency Medicine; PCP Nurse Practitioner Gerontology; Visit Provider Emergency Medicine
DX: S09.90XA Unspecified injury of head, initial encounter (principal); C34.91 Malignant neoplasm of unspecified part of right bronchus or lung; J44.9 Chronic obstructive pulmonary disease, unspecified; E11.9 Type 2 diabetes mellitus without complications; S40.011A Contusion of right shoulder, initial encounter; S16.1XXA Strain of muscle, fascia and tendon at neck level, initial encounter; I10 Essential (primary) hypertension; S20.20XA Contusion of thorax, unspecified, initial encounter; R42 Dizziness and giddiness; W18.39XA Other fall on same level, initial encounter; Y93.89 Activity, other specified; Y92.002 Bathroom of unspecified non-institutional (private) residence as the place of occurrence of the external cause; Z79.899 Other long term (current) drug therapy; Z79.82 Long term (current) use of aspirin; Z79.51 Long term (current) use of inhaled steroids; F17.210 Nicotine dependence, cigarettes, uncomplicated; F17.290 Nicotine dependence, other tobacco product, uncomplicated; Z90.49 Acquired absence of other specified parts of digestive tract
CPT/HCPCS: 70450; 71250; 72125; 73030; 80048; 85025; 85610; 85730; 93005; 99285; A4216

== ENCOUNTER 2025-05-11 14:01 | Inpatient (IN) | payer OTHER, SELFPAY ==
[2025-05-11 14:05] VITALS: BP 141/75; PULSE 105; RESP 20; TEMP 37; O2SAT 99
[2025-05-11 14:09] VITALS: BMI 19.2
--- NOTE | 2025-05-11 15:03 | EX.ED.DYSGE1 ---
HPI History of Present Illness Chief Complaint: Fall Detail of Chief Complaint: Patient presents because of multiple falls per triage. Patient states he f Informant: patient Onset/Context/Timing Onset: Weeks Context: Gradual Onset Timing: Continuous Quality: Generalized weakness and fatigued Location: Not applicable Current Severity: Mild Maximum Severity: Moderate Worsened by: Activity Relieved by: Nothing Associated Symptoms Associated Symptoms: Generalized weakness, weight loss, no energy Narrative Narrative: Patient is a 74-year-old male. He has history of lung cancer. 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 He endorses fatigue, generalized weakness. He has poor appetite. He does admit to change in urination. States he was seen approximately 3 weeks ago due to a fall. After reviewing records he was seen on the of this month for fall. He was seen by Dr. Quiros. He had a workup that was unremarkable. Of note patient is disoriented to time. He is slow to respond. He initially answer yes to some question then corrected himself. He presently denies headache. He presently reports neck pain that has had since the fall. He believes he has pneumonia because he has cough and shortness of breath with activity. He does have a history of lung cancer as previously noted. He initially endorsed nausea, vomiting diarrhea and then stated he has not had nausea vomiting or diarrhea. I believe his had increased urine output. He presently denies headache, visual, ocular auditory symptoms. Prior similar symptoms: No Recent Illness/Hospitalization: Yes [facility] Medical History (Updated 05/11/25 @ 18:[address] Monty Clarke MD) Depression GERD (gastroesophageal reflux disease) Cirrhosis Former smoker TIA (transient ischemic attack) Kidney stones Neuropathy PTSD (post-traumatic stress disorder) Anxiety Hepatitis Smoker COPD (chronic obstructive pulmonary disease) Hypertension Diabetes Home Medications ?Medication ?Instructions ?Recorded ?Last Taken ?Type gabapentin 300 mg capsule 300 mg PO TID neuropathy 02/24/15 Unknown History amlodipine 5 mg tablet 5 mg PO QHS blood pressure 05/09/21 Unknown History aspirin 81 mg tablet,delayed 81 mg PO DAILY heart health 05/09/21 Unknown History release budesonide-formoterol HFA 80 2 puff inhalation BID COPD 05/09/21 Unknown History mcg-4.5 mcg/actuation aerosol inhaler (Symbicort) cyclobenzaprine 10 mg tablet 10 mg PO TID PRN muscle spasms 05/09/21 Unknown History losartan 50 mg tablet 50 mg PO DAILY blood pressure 05/09/21 Unknown History Held on 05/04/25. Instructions: PT STATES HASN'T BEEN TAKING sildenafil 100 mg tablet 100 mg PO DAILY PRN Erectile 05/09/21 Unknown History Dysfunction atorvastatin 80 mg tablet 80 mg PO QHS #90 tabs 05/12/21 Unknown Rx insulin aspart U-100 100 unit/mL 10 unit subcut TIDCM 12/12/24 Unknown History (3 mL) subcutaneous pen (Novolog FlexPen U-100 Insulin aspart) diazepam 2 mg tablet (Valium) 2 mg PO TID PRN vertigo/dizziness 04/24/25 05/04/25 Rx 5 days #15 tabs ibuprofen 800 mg tablet (IBU) 800 mg PO Q8H 05/04/25 05/03/25 History insulin glargine 100 unit/mL (3 10 unit subcut QPM 05/04/25 Unknown History mL) subcutaneous pen (Lantus Solostar U-100 Insulin) magnesium hydroxide 400 mg/5 mL 5 ml PO DAILY PRN constipation 05/04/25 05/03/25 History oral suspension (Gentle Laxative (magnesium hydroxide)) ropinirole 1 mg tablet 1 mg PO DAILY 05/04/25 Unknown History tramadol 50 mg tablet 50 mg PO Q6H PRN pain #12 tabs 05/04/25 Unknown Rx Allergy/AdvReac Type Severity Reaction Status Date / Time No Known Allergies Allergy Verified 05/11/25 14:05 Family History Mother CVA (cerebral vascular accident) Surgical History Hx of appendectomy Social History household members: none housing: apartment Smoking Status: Current some day smoker tobacco type: cigarettes and cigars ROS ROS ED Constitutional Constitutional ED: Reports chills, fever(s), subjective and weight loss; Denies sweats Eyes Eyes: Denies blurry vision or change in vision ENT ENT ED: Denies ear pain, rhinorrhea or sore throat Cardiovascular Cardiovascular: Reports chest pain; Denies orthopnea, palpitations, paroxysmal nocturnal dyspnea or racing heartbeat Respiratory/Chest Respiratory/Chest: Reports cough, dyspnea and dyspnea on exertion; Denies orthopnea, paroxysmal nocturnal dyspnea or sputum Gastrointestinal Gastrointestinal: Denies abdominal pain, diarrhea, nausea or vomiting Genitourinary Genitourinary ED: Denies dysuria or hematuria Musculoskeletal Musculoskeletal: Reports neck pain; Denies arthralgias, back pain or myalgias Integumentary Denies rash Neurologic Neurologic: Reports weakness; Denies headache(s) or paresthesias Psychiatric Psychiatric: Denies anxiety Hematologic/Lymphatic Hematologic/Lymphatic: Reports systems reviewed and no addt'l complaints, except as documented EXAM Physical Exam Const Vital Signs: 05/11/25 14:05 05/11/25 14:30 05/11/25 16:30 Temperature 98.6 F Temperature Source Oral Pulse Rate 105 H Respiratory Rate 20 H Respiratory Effort Normal Respiratory Depth Normal Respiratory Pattern Normal Blood Pressure 141/75 H 167/92 H Blood Pressure Mean 97 117 Pulse Ox 99 Oxygen Delivery Method Room Air Room Air 05/11/25 18:00 Temperature Temperature Source Pulse Rate 99 Respiratory Rate 24 H Respiratory Effort Respiratory Depth Respiratory Pattern Blood Pressure 154/85 H Blood Pressure Mean 108 Pulse Ox 95 Oxygen Delivery Method Room Air Positive well developed Constitutional Narrative: Patient is very thin. General Appearance ED: well developed; Negative for pallor HEENT Reports dry mucous membranes HEENT Narrative: Head is atraumatic normocephalic. Ears normal. Nares patent. External auditory canal normal. TMs are normal. Posterior pharynx is unremarkable. Uvula is midline. No deviation tongue or protrusion. Mouth ED: Yes dry mucous membranes Mouth: dry mucous membranes Eyes PERRL and EOMs intact bilaterally General Eye ED: Negative for pale conjunctiva or scleral icterus Neck no lymphadenopathy, supple and no JVD Neck Narrative: Trachea is midline. There is no midline posterior neck pain. Chest Wall inspection of chest normal and palpation of chest normal Resp normal respiratory effort and No clear to auscultation bilaterally Resp Narrative: Decreased breath sounds lower third of the right lung field. There is egophony. There is also abnormal breath sounds noted anteriorly over the right middle lobe. Breath sounds noted on the left. There is question of rales at the left base. Cardio regular rhythm, S1 normal heart sound, S2 normal heart sound and no murmurs Rate: tachycardic GI normal to inspection, nondistended, normoactive bowel sounds, non-tender, non-distended and no masses; Negative for hepatosplenomegaly Back/Spine no CVA tenderness Neuro No oriented x3, CN's II-XII intact bilaterally and no sensory deficits noted Neuro Narrative: He is disoriented to time. He did not know the day of the week, month or year. Sensorium / Orientation: Negative for alert Motor Exam: strength 5/5 throughout Psych mental status grossly normal Skin no rashes or lesions noted, no wounds and skin turgor normal General Skin Exam: Negative for jaundice or pallor MDM MDM MDM Narrative Medical decision making narrative: Patient with generalized weakness urinary symptoms which may be due to hyperglycemia, pneumonia, worsening of his lung cancer. His falls may be related to autonomic dysfunction due to his diabetes. He does have diabetic neuropathy suspect he has poorly controlled diabetes. Will obtain a metabolic infectious workup at this point. Will compare to prior labs. History & Record Review Additional record(s) reviewed:: Prior inpatient record (Patient's last admission was April [address] Plummer's discharge note was reviewed.) and Prior ED visit ( of this month by Dr. Quiros for closed head injury due to fall.) Lab Data Attestation: I reviewed the patient's lab results. Lab results narrative: White count is slightly elevated 11.6 with an H&H of 8 0.7 and 20.9 with an MCV of 66.4. H&H on May 04 was 9.8 and 32.4 with an MCV of 65.9. Labs: Laboratory Results - last 24 hr 05/11/25 05/11/25 15:20 17:16 WBC 11.6 H RBC 4.35 L Hgb 8.7 L Hct 28.9 L MCV 66.4 L MCH 20.0 L MCHC 30.1 L RDW Std Deviation 44.7 H RDW Coeff of Tiffany 19.0 H Plt Count 404 MPV 9.5 Immature Gran % (Auto) 0.400 Neut % (Auto) 74.3 H Lymph % (Auto) 18.4 L [place] % (Auto) 5.8 Eos % (Auto) 0.8 Baso % (Auto) 0.3 Absolute Neuts (auto) 8.6 H Absolute Lymphs (auto) 2.13 Nucleated RBC % 0 Sodium 136 Potassium 3.5 Chloride 99 Carbon Dioxide 26.3 Anion Gap 11 BUN 14 Creatinine 1.20 Estim Creat Clear Calc 49.04 L Est GFR (MDRD) Non-Af 63 BUN/Creatinine Ratio 11.3 Glucose 244 H Lactic Acid 1.8 Calcium 11.2 H Total Bilirubin 0.41 AST 23 ALT 12 Alkaline Phosphatase 128 Troponin T High Sens 39 H D Troponin T Hi Sens 2 Hr 37 H Total Protein 7.4 Albumin 3.3 L Globulin 4.2 Albumin/Globulin Ratio 0.8 L Radiography Chest X-Ray - ED: 2 View (8 cm right hilar/upper lobe mass with compression of trachea and probable right main bronchus and primary branches. This was noted on a CT that was performed earlier this year. I do not see any obvious lytic or blastic lesions of osseous structures. He may have an obstructive pneumonia. There is) Diagnostic Testing: Clinical Impression(s) from Imaging Studies Chest X-Ray 05/11/25 15:30 IMPRESSION: In <3 weeks since the prior radiograph there has developed greater opacity in the suprahilar right lung mass suggesting acute postobstruction pneumonia with residual large suprahilar tumor. 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 Reading [facility] EKG Initial EKG: Attestation: I personally reviewed and interpreted this EKG as follows: Interpretation: Sinus Rhythm (Sinus rhythm rate of 91. Normal EKG. NE interval 150 ms Rickers duration 90 ms. QT duration 3096 ms. [place] is normal. EKG is unchanged from prior. ) Prior: Changed (September 14, 2021) Management Discussion w/another healthcare provider: Hospitalist (Dr. Stanley requested I contact Dr. Robertson to make sure it is okay for me to admit this patient to [facility]) Additional Tests and Interventions Additional Tests or Interventions: With abnormal EKG elevated troponin patient received 4 baby aspirin. He was treated with IV antibiotics for his obstructive pneumonia which is new from 3 weeks ago. Treatment and Re-Evaluation :: With normal lactate no endorgan dysfunction blood cultures were not obtained. Patient was started on levofloxacin. Comments:: Dr. Stanley informing that he did speak with Dr. Robertson. Patient be a full admit to PCU. [facility] Critical Care Time Critical Care Time: Yes Critical care time (excluding procedures): 30-74 minutes (31), Including time spent: (History, physical, documentation, independent rotation of laboratory results and x-ray and initiation of treatment for obstructive pneumonia and abnormal EKG with elevated troponin), Discussing w/Patient &/or Family/Toolroom Checker, Discussing w/Consultants and Arranging Admission or Transfer Discharge Plan Dx/Rx/DC Orders Clinical Impression: Obstructive pneumonia, Microcytic anemia, Acute on chronic anemia, Exertional dyspnea, Elevated troponin, Sinus tachycardia seen on threat monitoring analyst, Hypercalcemia, Lung cancer Disposition Disposition: Acute Care Hospital [facility]
[2025-05-11] MEDS: 0.9% Normal Saline (1000mL) 1,000 ML 1000 ML IV (15:19)
--- NOTE | 2025-05-11 15:30 | RAD_ITS ---
PROCEDURE: CHEST PA AND LATERAL 05/11/2025 REASON FOR EXAM: COUGH, EGOPHONY RIGHT Weakness and dizziness. Multiple recent falls. History of lung cancer. TECHNIQUE: CHEST PA AND LATERAL COMPARISON: Chest radiograph April 23, 2020 FINDINGS: Hardware: None. Heart: Normal size Mediastinum: Abnormal mediastinal contours with prominent suprahilar left density, potentially enlarged lymph node. Lungs: Upper lobe suprahilar right lung mass appears worse today likely representing a postobstruction pneumonia Bones: No aggressive bone lesions are appreciated. RAD/Chest PA and Lateral IMPRESSION: In <3 weeks since the prior radiograph there has developed greater opacity in t he suprahilar right lung mass suggesting acute postobstruction pneumonia with residual large suprahilar tumor. Left suprahilar opacity appeared to be associated with end-stage honeycomb fibr osis. Reading [facility]
[2025-05-11 15:45] LABS: Absolute Lymphocyte Count 2.13 X10^3/uL (0.83-4.51); Absolute Neutrophil Count 8.6 X10^3/uL (2.0-7.7); Basophil# 0.03 X10^3/uL; Basophil% 0.3 % (0-1); Eosinophil# 0.09 X10^3/uL; Eosinophils% 0.8 % (0-5); Hematocrit 28.9 % (40-54); Hemoglobin 8.7 g/dL (13.0-16.5); Lymphocyte # 2.13 X10^3/ul (0.83-4.51); Lymphocyte % 18.4 % (19-41); Mean Corp Hgb Conc 30.1 g/dL (32-36); Mean Corpuscular Volume 66.4 fL (80-94); Mean Platelet Vol. 9.5 fl (6.2-12.0); Monocyte# 0.67 X10^3/uL; Monocyte% 5.8 % (0-10); NRBC Flagged by Analyzer 0 % (0-5); Neutrophil # 8.63 X10^3/uL (2.7-7.7); Neutrophil % 74.3 % (47-70); Platelet Count 404 K/mm3 (150-450); RBC Distribution Width SD 44.7 fl (35.1-43.9); Red Blood Count 4.35 M/mm3 (4.6-6.2); White Blood Count 11.6 K/mm3 (4.4-11.0)
[2025-05-11 15:59] LABS: ALB/GLOB Ratio 0.8 RATIO (0.9-2.4); AST(SGOT) 23 U/L (<=37); Alanine Aminotransfer ALT/SGPT 12 U/L (<=46); Albumin, Serum 3.3 g/dL (3.4-4.8); Alkaline Phosphatase 128 U/L (40-129); Anion Gap 11 (5-15); BUN 14 mg/dL (4-19); BUN/Creat Ratio 11.3 RATIO (10-20); Calcium,Total 11.2 mg/dL (7.6-11.0); Carbon Dioxide 26.3 mmol/L (21.0-32.0); Chloride 99 mmol/L (98-108); EST Glomerular Filtration Rate 63 (>60); Estimated Creatinine Clearance 49.04 ml/min (50-250); Globulin 4.2 g/dL (2.2-4.2); Glucose 244 mg/dL (70-99); Potassium 3.5 mmol/L (3.3-5.1); Protein, Total 7.4 g/dL (5.9-8.4); Sodium Level 136 mmol/L (133-145); Total Bilirubin 0.41 mg/dL (0.00-1.30)
[2025-05-11 16:17] LABS: Lactic Acid 1.8 mmol/L (0.0-2.0)
[2025-05-11 16:18] LABS: Troponin T High Sensitivity 39 ng/L (<=22)
[2025-05-11 16:30] VITALS: BP 167/92
--- NOTE | 2025-05-11 16:54 | EKG12_ITS ---
Test Reason : GENERAL Blood Pressure : */* mmHG Vent. Rate : 91 BPM Atrial Rate : 91 BPM P-R Int : 150 ms QRS Dur : 90 ms QT Int : 386 ms P-R-T Axes : 47 58 53 degrees QTcB Int : 474 ms Normal sinus rhythm Normal ECG Confirmed by CHELSEA HERBERT, FARAZ ([id number]), makeup editor JOSE NYE ([id number]) on 05/12/2025 8:27:44 AM Referred By: Confirmed By: FARAZ TRAN MD
[2025-05-11] MEDS: levoFLOXacin IV 750 MG/150 ML BAG 100 MG IV (17:04)
[2025-05-11] MEDS: Aspirin 81 MG TAB.CHEW 324 MG PO (17:05)
--- NOTE | 2025-05-11 17:36 | PCA ---
[facility] ABOUT RM 3 AND RM 12 @ [id number] WILL HAVE DIRECTOR OF RESEARCH CALL BACK
[2025-05-11 18:00] VITALS: BP 154/85; PULSE 99; RESP 24; O2SAT 95
[2025-05-11 18:15] LABS: Troponin T High Sens 2 HR 37 ng/L (<=22)
[2025-05-11] MEDS: 0.9% Normal Saline (1000mL) 1,000 ML 250 ML IV ×2 (19:00→20:50)
--- NOTE | 2025-05-11 19:19 | PCM.HP.STD ---
HPI - General General Date of Admission: 05/11/25 Date of Service: 05/11/25 Chief Complaint: Worsening fatigue, weakness and confusion HPI Narrative ITZEL ALONZO, is a 74 M who presented to [facility] ED on 05/11/2025 with worsening fatigue, weakness and confusion. Patient has been seen in our ED recently but [facility] He was diagnosed with right-sided lung cancer about 1 year ago. It appears this diagnosis was confirmed on bronchial biopsy. Patient declined active treatment at that time and preferred close monitoring. However, patient has issues with transportation and has had difficulty getting to his appointments with oncology at the [place]. He lives at home with his significant other who was present at the bedside today. Patient has had worsening fatigue and weakness over the past week or so. He has also had intermittent confusion and significant other notes this has become more noticeable over the past few days. He was seen in the ED here on 05/04 for a mechanical fall; workup was negative and he was able to be discharged home. ED physician noted today that patient was disoriented to time and slow to respond to questions. Lab workup notable for calcium 11.2; notably was 12.2 on 05/04. Hemoglobin has slowly been downtrending with hemoglobin 8.7 in the ED today. Chest x-ray shows a greater opacity within the suprahilar right lung mass suggesting acute postobstructive pneumonia with residual large suprahilar tumor. Stool occult was positive. Given these findings, hospitalist was contacted for admission. I saw the patient at bedside in the ED, significant other was present. He was mildly fatigued appearing but otherwise sitting back comfortably in bed and in no acute distress. He was answering questions appropriately for me, though his answers were somewhat slowed. He was breathing comfortably on room air at rest. He denied any acute pain or discomfort. He does report worsening shortness of breath and cough with activity recently. He does note intermittent dark stools over the past 1 to 2 weeks. Also notes worsening acid reflux symptoms in that timeframe. No other acute concerns currently. Will be admitted for further management. Importantly, I discussed the case over the phone with the [facility] briefly tonight. Nurse noted that transfer could be initiated there but as the admitting physician was gone for the day, transfer will not happen until tomorrow at the earliest. [facility] Medical History (Updated 05/12/25 @ 00:00 by Background Daemon) Depression GERD (gastroesophageal reflux disease) Cirrhosis Former smoker TIA (transient ischemic attack) Kidney stones Neuropathy PTSD (post-traumatic stress disorder) Anxiety Hepatitis Smoker COPD (chronic obstructive pulmonary disease) Hypertension Diabetes Home Medications ?Medication ?Instructions ?Recorded ?Last Taken ?Type gabapentin 300 mg capsule 300 mg PO TID neuropathy 02/24/15 Unknown History amlodipine 5 mg tablet 5 mg PO QHS blood pressure 05/09/21 Unknown History aspirin 81 mg tablet,delayed 81 mg PO DAILY heart health 05/09/21 Unknown History release budesonide-formoterol HFA 80 2 puff inhalation BID COPD 05/09/21 Unknown History mcg-4.5 mcg/actuation aerosol inhaler (Symbicort) cyclobenzaprine 10 mg tablet 10 mg PO TID PRN muscle spasms 05/09/21 Unknown History sildenafil 100 mg tablet 100 mg PO DAILY PRN Erectile 05/09/21 Unknown History Dysfunction atorvastatin 80 mg tablet 80 mg PO QHS #90 tabs 05/12/21 Unknown Rx insulin aspart U-100 100 unit/mL 10 unit subcut TIDCM 12/12/24 Unknown History (3 mL) subcutaneous pen (Novolog FlexPen U-100 Insulin aspart) insulin glargine 100 unit/mL (3 10 unit subcut QPM 05/04/25 Unknown History mL) subcutaneous pen (Lantus Solostar U-100 Insulin) magnesium hydroxide 400 mg/5 mL 5 ml PO DAILY PRN constipation 05/04/25 05/03/25 History oral suspension (Gentle Laxative (magnesium hydroxide)) ropinirole 1 mg tablet 1 mg PO DAILY 05/04/25 Unknown History Allergy/AdvReac Type Severity Reaction Status Date / Time No Known Allergies Allergy Verified 05/11/25 14:05 Family History Mother CVA (cerebral vascular accident) Surgical History Hx of appendectomy Social History household members: none housing: apartment Smoking Status: Current some day smoker tobacco type: cigarettes and cigars ROS Constitutional Constitutional: Reports fatigue and weakness; Denies chills or fever(s) Eyes Eyes: Denies change in vision Cardiovascular Cardiovascular: Reports dyspnea on exertion; Denies chest pain, edema or lightheadedness Respiratory/Chest Respiratory/Chest: Denies cough, productive cough, shortness of breath at rest or wheezing Gastrointestinal Gastrointestinal: Denies abdominal pain Genitourinary Genitourinary: Denies dysuria Musculoskeletal Musculoskeletal: Denies arthralgias or myalgias Vital Signs Vital Signs Vital Signs: 05/11/25 14:05 05/11/25 14:30 05/11/25 16:30 Temperature 98.6 F Temperature Source Oral Pulse Rate 105 H Respiratory Rate 20 H Respiratory Effort Normal Respiratory Depth Normal Respiratory Pattern Normal Blood Pressure 141/75 H 167/92 H Blood Pressure Mean 97 117 Pulse Ox 99 Oxygen Delivery Method Room Air Room Air 05/11/25 18:00 Temperature Temperature Source Pulse Rate 99 Respiratory Rate 24 H Respiratory Effort Respiratory Depth Respiratory Pattern Blood Pressure 154/85 H Blood Pressure Mean 108 Pulse Ox 95 Oxygen Delivery Method Room Air Weight Weight: 66.2 kg Body Mass Index (BMI) 19.2 Physical Exam Const alert and no apparent distress Constitutional Narrative: Elderly male, thin and somewhat cachectic appearing, alert and oriented but with slowed responses noted, otherwise laying back comfortably in bed, answering questions with short appropriate responses, in no acute distress. General Appearance: cooperative and comfortable HEENT normocephalic, head/scalp atraumatic, hearing grossly normal bilaterally, nasal mucous membranes and turbinates normal and moist oral mucous membranes Eyes PERRL, EOMs intact bilaterally and conjunctivae normal Neck full ROM Chest inspection of chest normal Resp normal respiratory effort and no use of accessory muscles Resp Narrative: Breathing comfortably on room air at rest. Significantly diminished breath sounds in right upper lung zones with mild crackles noted in mid lung zones bilaterally. No wheezing noted. Cardio no murmurs and peripheral pulses 2+ throughout Cardio Narrative: Tachycardic, regular rhythm. GI normal to inspection, nondistended, normoactive bowel sounds, soft to palpation, non-tender and non-distended Back/Spine normal ROM Extremity normal to inspection, full ROM and no pedal edema Skin no rashes or lesions noted Neuro moves all extremities and no focal motor deficits Results Lab / Micro Data 05/11/25 15:20 05/11/25 15:20 Labs: Laboratory Results - last 24 hr 05/11/25 15:20: WBC 11.6 H, RBC 4.35 L, Hgb 8.7 L, Hct 28.9 L, MCV 66.4 L, MCH 20.0 L, MCHC 30.1 L, RDW Std Deviation 44.7 H, RDW Coeff of Tiffany 19.0 H, Plt Count 404, MPV 9.5, Immature Gran % (Auto) 0.400, Neut % (Auto) 74.3 H, Lymph % (Auto) 18.4 L, Pepin % (Auto) 5.8, Eos % (Auto) 0.8, Baso % (Auto) 0.3, Absolute Neuts (auto) 8.6 H, Absolute Lymphs (auto) 2.13, Nucleated RBC % 0, Sodium 136, Potassium 3.5, Chloride 99, Carbon Dioxide 26.3, Anion Gap 11, BUN 14, Creatinine 1.20, Estim Creat Clear Calc 49.04 L, Est GFR (MDRD) Non-Af 63, BUN/Creatinine Ratio 11.3, Glucose 244 H, Lactic Acid 1.8, Calcium 11.2 H, Total Bilirubin 0.41, AST 23, ALT 12, Alkaline Phosphatase 128, Troponin T High Sens 39 H D, Total Protein 7.4, Albumin 3.3 L, Globulin 4.2, Albumin/Globulin Ratio 0.8 L 05/11/25 17:16: Troponin T Hi Sens 2 Hr 37 H Micro: Microbiology 05/11/25 17:54 Stool Stool Occult Blood (RODRIGUEZ) - Final Imaging Radiology Impression Chest X-Ray 05/11/25 15:30 IMPRESSION: In <3 weeks since the prior radiograph there has developed greater opacity in the suprahilar right lung mass suggesting acute postobstruction pneumonia with residual large suprahilar tumor. 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 [facility] Assessment & Plan Assessment/Plan (1) Lung cancer: (2) Hypercalcemia: (3) Acute on chronic anemia: PLAN: Plan Patient is a 74-year-old male who presented [facility] ED on 05/11/2025 with worsening fatigue, weakness and confusion. 1. Large right-sided lung cancer with suspected postobstructive pneumonia ? Admit under inpatient status to PCU. Patient with known history of large right-sided lung cancer. Chest x-ray on admit with concern for acute postobstructive pneumonia in setting of lung cancer. Stable on room air at rest. Sputum culture ordered. Will treat with IV vancomycin and Zosyn for now. Patient has established with [facility]ology at the [facility]. Has deferred treatment for the lung cancer up to this point. Discussed with patient and family extensively in the ED and noted to them that unfortunately his condition will continue to worsen without active chemotherapy or radiation therapy for this lung cancer. Patient was scheduled to follow-up with oncology at the [place] next week. Transfer has been initiated to the [place]. 2. Acute metabolic encephalopathy suspected secondary to hypercalcemia malignancy ? Calcium 11.2 on admit. Notably calcium was 12.2 on ED visit on 05/04. No prior history of hypercalcemia to this point. Suspect this is hypercalcemia of malignancy in setting of lung cancer and suspect patient's encephalopathy and worsening fatigue and weakness are in part secondary to hypercalcemia. Will treat with heavy IV fluids for now. Follow-up a.m. calcium level. If not significantly improved, can plan to give a dose of calcitonin. Avoid sedating medications as able. 3. Acute on chronic anemia with suspected upper GI bleed ? Hemoglobin 8.7 on admit, MCV 66. Slow hemoglobin downtrend over the past few months. Patient reports dark stools over the past 1 to 2 weeks. Stool occult sample was negative. However, most likely etiology for acute on chronic anemia appears to be slow upper GI bleed. Does report acid reflux symptoms recently. Suspect his lung cancer may be contributing to irritation and inflammation of the esophagus possibly due to esophagitis or gastritis and upper GI bleed. Will treat with IV PPI twice daily for now. As plan is for transfer to the [place], will hold on GI consult for now. Monitor daily CBC. 4. Underweight BMI with suspected malnutrition ? Nutrition consulted. BMI 18.8 on admit. Appreciate nutrition recommendations. 5. COPD ? Stable on room air at rest in the ED, not in acute exacerbation. Continue home inhalers. 6. Hypertension, hyperlipidemia, history of CVA ? Hypertensive to the 150s to 160s in the ED. Continue home aspirin, statin and amlodipine. 7. Type 2 diabetes mellitus with neuropathy ? Blood glucose 244 on admit. Will treat with Lantus 10 units at night and sliding scale insulin with meals for now, adjust as needed. Continue home gabapentin. DVT prophylaxis: SCDs CODE STATUS: Full code, verified Expected disposition: Likely transfer to [place] Total clinical time spent by myself addressing the patient's medical issues, reviewing all the data, and collaborating with patient's care team: 75 minutes. Charges/Coding Visit Charges Inpatient E&M: 99265 Init Hosp L3
[2025-05-11 19:29] VITALS: BP 154/85; PULSE 99; RESP 24; TEMP 37; O2SAT 95
[2025-05-11 20:15] VITALS: BP 170/88; PULSE 92; RESP 18; TEMP 37.2; O2SAT 93
[2025-05-11 20:16] VITALS: BMI 18.7
[2025-05-11 20:33] LABS: Troponin T High Sens 4 HR 39 ng/L (<=22)
[2025-05-11 21:12] VITALS: O2SAT 95
[2025-05-11] MEDS: Vancomycin HCl 1,750 MG in 0.9% Normal Saline (500mL Bag) 500 ML 250 MG IV (21:44)
[2025-05-11] MEDS: Pantoprazole Sodium 40 MG in 0.9% Normal Saline (100mL MB+) 100 ML 330 MG IV (21:59)
[2025-05-11] MEDS: Atorvastatin Calcium 40 MG Tablet PO (22:00)
[2025-05-11] MEDS: amLODIPine 5 MG Tablet PO (22:00)
[2025-05-11] MEDS: Gabapentin 300 MG Capsule PO (22:00)
[2025-05-11] MEDS: Insulin Glargine-YFGN 100 UNIT/ML Pen 10 UNIT SC (22:01)
[2025-05-11] MEDS: Insulin Lispro 100 UNIT/ML INSULN.PEN SC (22:02)
--- NOTE | 2025-05-11 22:37 | PCM.RX.CS ---
Consult Antibiotic Management Pharmacy has been consulted to manage selected antibiotic: Vancomycin Type of Intervention Type of Consult: New start Labs Labs: Sodium 136 mmol/L (133-145) 05/11/25 15:20 Potassium 3.5 mmol/L (3.3-5.1) 05/11/25 15:20 Chloride 99 mmol/L (98-108) 05/11/25 15:20 Carbon Dioxide 26.3 mmol/L (21.0-32.0) 05/11/25 15:20 Anion Gap 11 (5-15) 05/11/25 15:20 BUN 14 mg/dL (4-19) 05/11/25 15:20 Creatinine 1.20 mg/dL (0.70-1.20) 05/11/25 15:20 Est GFR (MDRD) Non-Af 63 (>60) 05/11/25 15:20 BUN/Creatinine Ratio 11.3 RATIO (10-20) 05/11/25 15:20 Glucose 244 mg/dL (70-99) H 05/11/25 15:20 Microbiology Microbiology: Microbiology 05/11/25 17:54 Stool Stool Occult Blood (RODRIGUEZ) - Final Dosing Weight Weight used for dosin.5 kg Estimated Creatinine Clearance Estimated Creatinine Clearance: 49 Goal Trough Goal Trough: 15-20 mcg/mL Pharmacy Plan for Drug Dosing Pharmacy Plan for Drug Dosing: Pharmacy Service will continue to monitor and adjust dosing as required. 1750MG GIVEN IN ER 05/11 @ 7064. START 500MG Q12H AND DRAW TROUGH PRIOR TO 4TH DOSE Follow-Up Labs Follow-Up Labs: Trough: Vancomycin Date/Time Labs Ordered Labs to be done on [date and time ordered]: 05/13 @ 1523
[2025-05-12] MEDS: Piperacil/Tazobactam 3.375 GM in 0.9% Normal Saline (50mL MB+) 50 ML IV ×4 (00:21→23:13)
--- OUTSIDE RECORDS SUMMARY | 2025-05-12 00:21 | XMS RPT_ITS | CCD ---
Author Organization [facility] Care Team Providers Care Database Software Technician Name Role Phone Dr. Steven Tejeda DO Emergency Provider Adithya MEASUREMENT DEPARTMENT CHIEF CLERK-CCarlene Primary Care Provider Dr. Steven Tejeda DO Attending Provider [phone]. Ike Dawson DO Emergency Provider [phone] Ike Dawson Attending Unavailable [facility] Carlene Hassan Primary Care Unavailable Carlene Haij Primary Care Unavailable Steven Tejeda Attending Unavailable Juvencio Shen Attending [facility] [place] [facility] Unavailable Juana Michaud Attending [facility] [place] Unavailable César Short Attending Unavailable Dr. Ike Dawson DO Attending Provider [phone] Monty Clarke MD Emergency Provider Dr. Lane Stanley DO Admit Provider Dr. Lane Stanley DO Attending Provider Medications Current Medications Medication Drug Class(es) Dates Sig (Normalized) Sig (Original) cyclobenzaprine hydrochloride 10 mg oral tablet (3 sources) Muscle Relaxant Start: 05-09-2021 take 1 tablet by mouth three times daily as needed for muscle spasms Cyclobenzaprine 10 mg Tablet Active 10 mg PO THREE TIMES A DAY as needed for muscle spasms May 09, 2021 12:00am 3 ml insulin aspart, human 100 unt/ml pen injector (3 sources) Insulin Analog Start: 12-12-2024 Insulin Aspart U-100 (Novolog Flexpen U-100 Insulin) 100 unit/mL (3 mL) insulin pen Active 10 U SC 3 TIMES DAILY WITH MEALS December 12, 2024 1:00am Start: 12-12-2024 Insulin Aspart U-100 (Novolog Flexpen U-100 Insulin) 100 unit/mL (3 mL) insulin pen Active SC December 12, 2024 1:00am 3 ml insulin glargine 100 unt/ml pen injector (2 sources) Insulin Analog Start: 05-04-2025 Insulin Glargine (Lantus Solostar U-100 Insulin) 100 unit/mL (3 mL) insulin pen Active 10 U SC EVERY EVENING May 04, 2025 12:00am PT STATES USES 10-15U QHS Magnesium Hydroxide (2 sources) Start: 05-04-2025 take 1 mL by mouth once daily as needed for constipation Magnesium Hydroxide (Gentle Laxative (Mag Hydrox)) 400 mg/5 mL suspension Active 5 mL PO DAILY as needed for constipation May 04, 2025 12:00am rOPINIRole 1 mg oral tablet (2 sources) Nonergot Dopamine Agonist Start: 05-04-2025 take 1 tablet by mouth once daily Ropinirole 1 mg tablet Active 1 mg PO DAILY May 04, 2025 12:00am PT UNSURE OF STRENGTH sildenafil 100 mg oral tablet (3 sources) Phosphodiesterase 5 Inhibitor Start: 05-09-2021 take 1 tablet by mouth once daily as needed Sildenafil 100 mg Tablet Active 100 mg PO DAILY as needed for Erectile Dysfunction May 09, 2021 12:00am Completed/Discontinued Medications Medication Drug Class(es) Dates Sig (Normalized) Sig (Original) albuterol 2 UNITS (3 sources) Start: 05-09-2021 End: 05-04-2025 albuterol 2 UNITS Discontinued 2 NMA NASAL Q4H as needed for SOB May 09, 2021 12:00am May 04, 2025 11:33am Start: 05-09-2021 albuterol 2 UN ITS Active 2 NMA NASAL Q4H as needed for SOB May 09, 2021 12:00am amLODIPine 5 mg oral tablet (6 sources) Dihydropyridine Calcium Channel Juvenal Start: 05-09-2021 End: 12-12-2024 take 1 tablet by mouth once daily Amlodipine 5 mg tablet Discontinued 5 mg PO DAILY June 13, 2024 12:00am December 12, 2024 12:10pm aspirin 81 mg oral tablet (6 sources) Platelet Aggregation Inhibitor, Nonsteroidal Anti-inflammatory Drug Start: 06-13-2024 End: 12-12-2024 take 1 capsule by mouth once daily Aspirin 81 mg capsule Discontinued 81 mg PO DAILY June 13, 2024 12:00am December 12, 2024 12:10pm Start: 05-09-2021 take 1 tablet by randi th once daily Aspirin 81 mg Tablet,Delayed Release (Dr/Ec) Active 81 mg PO DAILY May 09, 2021 12:00am atorvastatin 80 mg oral tablet (9 sources) HMG-CoA Reductase Inhibitor Start: 05-12-2021 End: 12-12-2024 take 1 tablet by mouth once daily Atorvastatin 80 mg tablet Discontinued 80 mg PO DAILY June 13, 2024 12:00am December 12, 2024 12:10pm Start: 05-09-2021 End: 05-12-2021 take 1 tablet by mouth at bedtime Atorvastatin 20 mg Tablet Discontinued 20 mg PO AT BEDTIME May 09, 2021 12:00am May 12, 2021 10:09am Budesonide-Formoterol (6 sources) Corticosteroid, beta2-Adrenergic Agonist Start: 06-13-2024 End: 12-12-2024 Budesonide-Formoterol (Symbicort) 80-4.5 mcg/actuation HFA aerosol inhaler Discontinued 2 NMA INHALATION TWICE A DAY 10.2 June 13, 2024 12:00am December 12, 2024 12:10pm Start: 05-09-2021 Budesonide-For moterol (Symbicort) 80-4.5 mcg/actuation Hfa Aerosol Inhaler Active 2 NMA INHALATION TWICE A DAY May 09, 2021 12:00am diazePAM 2 mg oral tablet (3 sources) Benzodiazepine Start: 04-24-2025 End: 05-11-2025 take 1 tablet by mouth three times daily as needed for dizziness Diazepam (Valium) 2 mg tablet Discontinued 2 mg PO THREE TIMES A DAY as needed for vertigo/dizziness 15 April 24, 2025 12:00am May 11, 2025 6:40pm gabapentin 300 mg oral capsule (6 sources) Anti-epileptic Agent Start: 02-24-2015 End: 12-12-2024 take 1 capsule by mouth three times daily Gabapentin 300 mg capsule Discontinued 300 mg PO THREE TIMES A DAY June 13, 2024 12:00am December 12, 2024 12:11pm glipiZIDE 5 mg oral tablet (6 sources) Sulfonylurea Start: 06-13-2024 End: 12-12-2024 take 1 tablet by mouth once daily Glipizide 5 mg tablet Discontinued 5 mg PO DAILY June 13, 2024 12:00am December 12, 2024 12:11pm Start: 02-24-2015 End: 12-12-2024 take 8 mg by mouth once daily Glipizide 5 MG tablet Di scontinued 8 mg PO DAILY February 24, 2015 12:00am December 12, 2024 12:11pm ibuprofen 800 mg oral tablet (2 sources) Nonsteroidal Anti-inflammatory Drug Start: 05-04-2025 End: 05-11-2025 take 1 tablet by mouth every eight hours Ibuprofen (Ibu) 800 mg tablet Discontinued 800 mg PO Q8H May 04, 2025 12:00am May 11, 2025 6:40pm losartan potassium 50 mg oral tablet (6 sources) Angiotensin 2 Receptor Juvenal Start: 05-09-2021 End: 05-11-2025 take 1 tablet by mouth once daily Losartan 50 mg tablet Discontinued 50 mg PO DAILY June 13, 2024 12:00am December 12, 2024 12:11pm mecobalamin 1 mg chewable tablet (3 sources) Start: 05-09-2021 End: 05-04-2025 Mecobalamin (Vitamin B12) 1,000 mcg Tablet,Chewable Discontinued 500 ug PO DAILY May 09, 2021 12:00am May 04, 2025 11:36am metFORMIN hydrochloride 1000 mg oral tablet (6 sources) Biguanide Start: 06-13-2024 End: 12-12-2024 take 1 tablet by mouth twice daily Metformin 1,000 mg tablet Discontinued 1000 mg PO TWICE A DAY June 13, 2024 12:00am December 12, 2024 12:12pm Start: 05-09-2021 End: 12-12-2024 take 1 tablet by mouth once daily Metformin 1,000 mg Tablet Extended Release 24hr Discontinued 2000 mg PO DAILY May 09, 2021 12:00am December 12, 2024 12:12pm traMADol hydrochloride 50 mg oral tablet (2 sources) Opioid Agonist Start: 05-04-2025 End: 05-11-2025 take 1 tablet by mouth every six hours as needed for pain Tramadol 50 mg tablet Discontinued 50 mg PO EVERY 6 HOURS as needed for pain May 04, 2025 12:00am May 11, 2025 6:42pm traZODone hydrochloride 50 mg oral tablet (3 sources) Serotonin Reuptake Inhibitor Start: 05-09-2021 End: 05-04-2025 Trazodone 50 mg Tablet Discontinued 25 mg PO AT BEDTIME May 09, 2021 12:00am May 04, 2025 11:34am Vitamin E 200 unit Tablet (3 sources) Start: 05-09-2021 End: 05-04-2025 take 1 tablet by mouth once daily Vitamin E 200 unit Tablet Discontinued 200 U PO DAILY May 09, 2021 12:00am May 04, 2025 11:37am Start: 05-09-2021 take 1 tablet by mouth once da samara Vitamin E 200 unit Tablet Active 200 U PO DAILY May 09, 2021 12:00am Problems Problem Classification Problem Date Documented Date Episodic/Chronic Abdominal pain (7 sources) Abdominal pain; Translations: [Unspecified abdominal pain] Onset: 06-16-2024 2024 Episodic Acute cerebrovascular disease (3 sources) Cerebrovascular accident; Translations: [Cerebral infarction, unspecified] 05-11-2021 Chronic Anxiety disorders (4 sources) Anxiety; Translations: [Anxiety disorder, unspecified] Onset: 01-05-2025 12-20-2024 Chronic Cancer of bronchus; lung (4 sources) Malignant tumor of lung; Translations: [Malignant neoplasm of unspecified part of right bronchus or lung] 04-23-2025 Chronic Cardiac dysrhythmias (3 sources) Nonsustained ventricular tachycardia ; Translations: [Nonsustained ventricular tachycardia] 05-20-2021 Chronic Cardiac dysrhythmias (2 sources) ECG: sinus tachycardia; Translations: [Tachycardia, unspecified] 05-11-2025 Episodic Conditions associated with dizziness or vertigo (6 sources) Dizziness; Translations: [Dizziness and giddiness] Onset: 04-27-2025 04-23-2025 Episodic Deficiency and other anemia (3 sources) Anemia; Translations: [Anemia, unspecified] 04-23-2025 Episodic Deficiency and other anemia (2 sources) Chronic anemia; Translations: [Anemia, unspecified] 05-11-2025 Episodic Deficiency and other anemia (2 sources) Microcytic anemia; Translations: [Iron deficiency anemia, unspecified] 05-11-2025 Episodic Diabetes mellitus with complications (4 sources) Hyperglycemia due to diabetes mellitus; Translations: [Type 2 diabetes mellitus with hyperglycemia] Onset: 06-25-2024 12-20-2024 Chronic Diabetes mellitus without complication (3 sources) Diabetes mellitus; Translations: [Type 2 diabetes mellitus without complications] 2024 Chronic Diabetes mellitus without complication (3 sources) Hyperglycemia; Translations: [Hyperglycemia, unspecified] 06-21-2024 Episodic E Codes: Fall (2 sources) Fall; Translations: [Unspecified fall, initial encounter] 05-04-2025 Episodic Nonspecific chest pain (3 sources) Chest pain; Translations: [Chest pain, unspecified] 05-20-2021 Episodic Other injuries and conditions due to external causes (2 sources) Closed injury of head; Translations: [Unspecified injury of head, initial encounter] 05-04-2025 Episodic Other injuries and conditions due to external causes (1 source) Unspecified injury of head, initial encounter; Translations: [Unspecified injury of head, initial encounter] Onset: 05-06-2025 Episodic Other lower respiratory disease (2 sources) Dyspnea on exertion; Translations: [Other forms of dyspnea] 05-11-2025 Episodic Other nervous system disorders (3 sources) Neuropathy; Translations: [Polyneuropathy, unspecified] 06-21-2024 Chronic Other nervous system disorders (3 sources) H/O: Disorder; Translations: [Personal history of other diseases of the nervous system and sense organs] 12-20-2024 Episodic Other nutritional; endocrine; and metabolic disorders (2 sources) Hypercalcemia; Translations: [Hypercalcemia] 05-11-2025 Chronic Other screening for suspected conditions (not mental disorders or infectious disease) (2 sources) Raised cardiac enzyme or marker; Translations: [Other specified abnormal findings of blood chemistry] 05-11-2025 Episodic Pneumonia (except that caused by tuberculosis or sexually transmitted disease) (2 sources) Postobstructive pneumonia; Translations: [Pneumonia, unspecified organism] 05-11-2025 Episodic Sprains and strains (2 sources) Strain of neck muscle; Translations: [Strain of muscle, fascia and tendon at neck level, initial encounter] 05-04-2025 Episodic Superficial injury; contusion (4 sources) Contusion of chest; Translations: [Contusion of unspecified front wall of thorax, initial encounter] 05-04-2025 Episodic Results Test Name Value Interpretation Reference Range Facility Absolute lymphocyte countOrd ered By: Monty Clarke on 05-11-2025 Lymphocytes Auto (Unsp spec) [#/Vol] 2.13 10*3/uL 0.83-4.51 [facility] Absolute neutrophil countOrd ered By: Montymaria e Clarke on 05-11-2025 Neutrophils (Bld) [#/Vol] 8.6 10*3/uL High 2.0-7.7 [facility] Anion gap in Serum or Plasma Ordered By: Montymaria e Clarke on 05-11-2025 Anion gap [Moles/Vol] 11 mmol/L 5-15 [facility] Automated lymphocyte count a s percentage of total leukocytesOrdered By: Montymaria e Clarke on 05-11-2025 Lymphocytes/100 WBC Auto (Unsp spec) 18.4 % Low 19-41 [facility] BUN/creatinine ratioOrdered By: Montymaria e Clarke on 05-11-2025 Urea nitrogen/Creatinine [Mass ratio] 11.3 mg/mg 10-20 [facility] Basophil percentageOrdered B y: Monty Clarke on 05-11-2025 Basophils/100 WBC (Bld) 0.3 % 0-1 [facility] Bilirubin, totalOrdered By: Montymaria e Clarke on 05-11-2025 Bilirubin [Mass/Vol] 0.41 mg/dL 0.00-1.30 [place] Carbon dioxide, total [Moles /volume] in Central venous bloodOrdered By: Monty Clarke on 05-11-2025 CO2 [Moles/Vol] 26.3 mmol/L 21.0-32.0 [facility] Chloride assayOrdered By: [facility] Clarke on 05-11-2025 Chloride [Moles/Vol] 99 mmol/L 98-108 [place] Eosinophil percentageOrdered By: Montymaria e Clarke on 05-11-2025 Eosinophils/100 WBC (Bld) 0.8 % 0-5 [facility] Erythrocyte distribution wid th ratioOrdered By: Montymaria e Clarke on 05-11-2025 Erythrocyte distribution width (RBC) [Ratio] 19.0 % High 11.6-14.6 [facility] Erythrocyte distribution wid th standard deviationOrdered By: Monty Clarke on 05-11-2025 Erythrocyte distribution width (RBC) [Ratio] 44.7 fl High 35.1-43.9 [facility] Glomerular filtration rate ( GFR) estimation/1.73 sq m using serum, plasma, or whole bOrdered By: Monty Clarke on 05-11-2025 GFR/1.73 sq M.predicted among non-blacks MDRD (S/P/Bld) [Vol rate/Area] 63 mL/min/{1.73_m2} >60 [facility] Comment on above: mL/min/1.73m2 CKD-EP I Creatinine Equation (2020) Hematocrit Auto (Bld) [Volum e fraction]Ordered By: Monty Clarke on 05-11-2025 Hematocrit (Bld) [Volume fraction] 28.9 % Low 40-54 [facility] Hemoglobin measurementOrdere d By: Monty Clarke on 05-11-2025 Hemoglobin (Bld) [Mass/Vol] 8.7 g/dL Low 13.0-16.5 [facility] Immature granulocytes/100 WB C Auto (Bld)Ordered By: Montymaria e Clarke 05-11-2025 Immature granulocytes/100 WBC (Bld) 0.400 % 0.0-0.9 [facility] Comment on above: IG% - Immature Granu locytes (promyelocytes, myelocytes and metamyelocytes) > 1% indicates that a LEFT SHIFT is Present. Laboratory - Chemistry and C hemistry - challengeOrdered By: Monty Clarke on 05-11-2025 AST [Catalytic activity/Vol] 23 U/L <38 [facility] Lactic acid measurementOrder ed By: Monty Clarke 05-11-2025 Lactate [Moles/Vol] 1.8 mmol/L 0.0-2.0 [facility] MCV (mean corpuscular volume ) determinationOrdered By: Monty Clarke 05-11-2025 MCV (RBC) [Entitic vol] 66.4 fL Low 80-94 [facility] Mean corpuscular hemoglobin (MCH) determinationOrdered By: Monty Clarke 05-11-2025 MCH (RBC) [Entitic mass] 20.0 pg Low 27.0-32.0 [facility] Mean corpuscular hemoglobin concentration (MCHC) determinationOrdered By: Monty Clarke on 05-11-2025 MCHC (RBC) [Mass/Vol] 30.1 g/dL Low 32-36 [facility] Mean platelet volume determi nationOrdered By: Monty Clarke on 05-11-2025 Platelet mean volume (Bld) [Entitic vol] 9.5 fL 6.2-12.0 [facility] Monocyte percentageOrdered B y: Monty Clarke on 05-11-2025 Monocytes/100 WBC (Bld) 5.8 % 0-10 [facility] Neutrophil percentageOrdered By: Montymaria e Clarke on 05-11-2025 Neutrophils/100 WBC (Bld) 74.3 % High 47-70 [facility] Nucleated red blood cell per centageOrdered By: Monty Clarke on 05-11-2025 Nucleated RBC/100 WBC (Bld) [Ratio] 0 % 0-5 [facility] Platelet countOrdered By: Karin Clarke on 05-11-2025 Platelets (Bld) [#/Vol] 404 10*3/uL 150-450 [facility] Potassium measurement (mass/ volume)Ordered By: Monty Clarke on 05-11-2025 Potassium (Unsp spec) [Mass/Vol] 3.5 mmol/L 3.3-5.1 [facility] RBC Auto (Bld) [#/Vol]Ordere d By: Monty Clarke on 05-11-2025 RBC (Bld) [#/Vol] 4.35 10*6/uL Low 4.6-6.2 [facility] Serum creatinine measurement (mass/volume)Ordered By: Monty Clarke on 05-11-2025 Creatinine [Mass/Vol] 1.20 mg/dL 0.70-1.20 [facility] Serum globulin measurementOr dered By: Monty Clarke on 05-11-2025 Globulin (S) [Mass/Vol] 4.2 g/dL 2.2-4.2 [facility] Serum glucose measurement (m ass/volume)Ordered By: Monty Clarke on 05-11-2025 Glucose [Mass/Vol] 244 mg/dL High 70-99 [facility] Serum or plasma alanine stahl otransferase (ALT) measurementOrdered By: Monty Clarke on 05-11-2025 ALT [Catalytic activity/Vol] 12 U/L <47 [facility] Serum or plasma albumin ivania urement (mass/volume)Ordered By: Monty Clarke on 05-11-2025 Albumin [Mass/Vol] 3.3 g/dL Low 3.4-4.8 [facility] Serum or plasma albumin/glob ulin mass ratioOrdered By: Montymaria e Clarke on 05-11-2025 Albumin/Globulin [Mass ratio] 0.8 {ratio} Low 0.9-2.4 [facility] Serum or plasma alkaline brittany sphatase measurementOrdered By: Monty Clarke on 05-11-2025 ALP [Catalytic activity/Vol] 128 U/L 40-129 [facility] Serum or plasma calcium ivania urement (mass/volume)Ordered By: Monty Clarke on 05-11-2025 Calcium [Mass/Vol] 11.2 mg/dL High 7.6-11.0 [facility] Serum or plasma urea nitroge n measurement (mass/volume)Ordered By: Monty Clarke on 05-11-2025 Urea nitrogen [Mass/Vol] 14 mg/dL 4-19 [facility] Sodium levelOrdered By: Monty Clarke on 05-11-2025 Sodium [Moles/Vol] 136 mmol/L 133-145 [facility] Stool gastrointestinal hemog lobin detection by immunologic methodOrdered By: Monty Clarke on 05-11-2025 Lower GI hemoglobin IA Ql (Stl) [facility] Total proteinOrdered By: Monty Clarke on 05-11-2025 Protein [Mass/Vol] 7.4 g/dL 5.9-8.4 [facility] Troponin T.cardiac [Mass/vol ume] in Serum or Plasma by High sensitivity methodOrdered By: Monty Clarke on 05-11-2025 Troponin T.cardiac High sensitivity method [Mass/Vol] 37 ng/L High <22 [facility] Troponin T.cardiac High sensitivity method [Mass/Vol] 39 ng/L High <22 [facility] Comment on above: Delta: 26 on 5-2106 White blood cell (WBC) count Ordered By: Monty Clarke on 05-11-2025 WBC (Bld) [#/Vol] 11.6 10*3/uL High 4.4-11.0 [facility] 12 Lead EKGon 05-04-2025 12 Lead EKG [facility] [address] [place] [address] 12 Lead EKG 05/04/25 1129 MR#: [id number] Acct: [id number] Name: ITZEL ALONZO Rep #: [id number] : 1950 74 From: Adams Connell MD Attending Dr: Status: DEP ER Ordering Dr: Ike Dawson DO Date: 05/04/25 Location: ED Sex: M AA Admitted: Test Reason : Blood Pressure : */* mmHG Vent. Rate : 95 BPM Atrial Rate : 95 BPM P-R Int : 152 ms QRS Dur : 82 ms QT Int : 358 ms P-R-T Axes : -2 50 42 degrees QTcB Int : 449 ms Normal sinus rhythm Normal ECG Confirmed by Adams Connell ([id number]), editorial writer KATIE ABRAHAM ([id number]) on 05/06/2025 6:12:43 AM Referred By: Confirmed By: Adams Connell 05/06/25611 Date Adams Connell MD CC: SID Haji; Dr. Ike Dawson DO Signed Normal [facility] Absolute lymphocyte countOrd ered By: Ike Dawson on 05-04-2025 Lymphocytes Auto (Unsp spec) [#/Vol] 3.37 10*3/uL 0.83-4.51 [facility] Absolute neutrophil countOrd ered By: Ike Dawson on 05-04-2025 Neutrophils (Bld) [#/Vol] 7.0 10*3/uL 2.0-7.7 [facility] Activated partial thrombopla stin time (aPTT) in platelet poor plasma by coagulation aOrdered By: Ike Dawson on 05-04-2025 aPTT Coag (PPP) [Time] 31.9 s 24.1-36.2 [facility] Anion gap in Serum or Plasma Ordered By: Ike Dawson on 05-04-2025 Anion gap [Moles/Vol] 11 mmol/L 04-08 [facility] Automated lymphocyte count a s percentage of total leukocytesOrdered By: Ike Le on 05-04-2025 Lymphocytes/100 WBC Auto (Unsp spec) 29.4 % [facility] BUN/creatinine ratioOrdered By: Ike Dawson on 05-04-2025 Urea nitrogen/Creatinine [Mass ratio] 16.9 mg/mg 09-13 [facility] Basic Metabolic Profile (BMP )on 05-04-2025 BUN/CRE 16.9 RATIO Normal 09-13 [facility] Comment on above: Performed By: #### L 100.0100, L500.2500, L300.4310, L300.3900 #### [facility] [address] [place], [address] ECRCL 50.60 ml/min Normal 50-250 [facility] Comment on above: Performed By: #### L 100.0100, L500.2500, L300.4310, L300.3900 #### [facility] [address] [place], [address] GAP 11 Normal 04-08 [facility] Comment on above: Performed By: #### L 100.0100, L500.2500, L300.4310, L300.3900 #### [facility] [address] [place], [address] Potassium [Moles/Vol] 4.2 mmol/L Normal 3.3-5.1 [facility] Comment on above: Performed By: #### L 100.0100, L500.2500, L300.4310, L300.3900 #### [facility] [address] [place], [address] Basophil percentageOrdered B y: Ike Dawson on 05-04-2025 Basophils/100 WBC (Bld) 0.3 % 0-1 [facility] Blood polychromasia detectio n by light microscopyOrdered By: Ike Dawson on 05-04-2025 Polychromasia LM Ql (Bld) 1+ [facility] Brain/Head without Contrasto n 05-04-2025 Brain/Head without Contrast [facility] [address] [place], [place] [address] Brain/Head without Contrast MR#: [id number] Acct: [id number] Name: ITZEL ALONZO Rep #: [id number] : 1950 M 74 From: Uche Kiser PCP: SID Haro Status: REG ER Study: Brain/Head without Contrast Date of Exam: 04/25 Exam# [id number] Ordering Dr: Ike Dawson DO PROCEDURE: BRAIN/HEAD WITHOUT CONTRAST 05/04/2025 REASON FOR EXAM: INJURY TECHNIQUE: Head CT without intravenous contrast. Coronal and Sagittal reconstruction series were provided. One or more dose reduction techniques were used (e.g., Automated exposure control, adjustment of the mA and/or kV according to patient size, use of iterative reconstruction technique. RADIATION DOSE SUMMARY: DLP: 1965.25 mGycm COMPARISON: Head CT of 04/23/2025. FINDINGS: Brain: Stable bilateral cerebral white matter hypodensities are again seen, not significantly changed since the prior study, and by far most prominent again right parietal lobe. No new or worsened process is seen. No intracranial hemorrhage is seen. No extra-axial fluid collection is noted. No orbital pathology is noted. CSF Spaces: Mild generalized cerebral atrophy Sinuses/Mastoids: Clear at visualized levels Bones: No acute osseous process is seen CT/Brain/Head without Contrast IMPRESSION: Stable examination, without intracranial hemorrhage or other acute process noted. Reading Location: [address] CC: MEASUREMENT DEPARTMENT CHIEF CLERK-C Carlene Haji; Dr. Ike Dawson DO Engineer Chief: Signed Normal [facility] CBC W/Diff, AutomatedOrdered By: Ike Dawson on 05-04-2025 Anisocytosis Ql (Bld) 1+ [facility] Comment on above: Performed By: #### L 100.0100, L500.2500, L300.4310, L300.3900 #### [facility] [address] [place], [address] CBC W/Diff, Automatedon 04-25 PLT EST A Normal [facility]DEQ [facility] Comment on above: Performed By: #### L 100.0100, L500.2500, L300.4310, L300.3900 #### [facility] [address] [place], [address] POLYCHROMASIA 1+ Normal [facility] Comment on above: Performed By: #### L 100.0100, L500.2500, L300.4310, L300.3900 #### [facility] [address] [place], [address] Carbon dioxide, total [Moles /volume] in Central venous bloodOrdered By: Ike Dawson on 05-04-2025 CO2 [Moles/Vol] 27.6 mmol/L 21.0-32.0 [facility] Comment on above: Performed By: #### L 100.0100, L500.2500, L300.4310, L300.3900 #### [facility] [address] [place], [address] Chest without Contraston Chest without Contrast [facility] [address] [place] [address] Chest without Contrast MR#: [id number] Acct: [id number] Name: CHERIITZEL Carlie Rep #: [id number] : 1950 M 74 From: Lion torres MD PCP: Carlene Haji, MEASUREMENT DEPARTMENT CHIEF CLERK-C Status: REG ER Study: Chest without Contrast Date of Exam: 05/04/25 Exam# [id number] Ordering Dr: Ike Dawson DO PROCEDURE: CHEST WITHOUT CONTRAST 05/04/2025 REASON FOR EXAM: RIGHT RIB INJURY Recent fall. TECHNIQUE: Chest CT without contrast. Coronal and Sagittal reconstruction series were provided. One or more dose reduction techniques were used (e.g., Automated exposure control, adjustment of the mA and/or kV according to patient size, use of iterative reconstruction technique RADIATION DOSE SUMMARY: CTDlvol: 22.99 mGy DLP: 535.50 mGycm COMPARISON: Prior chest x-ray dated April 23, 2025. FINDINGS: Hardware: EKG electrodes. Lymph nodes: Right hilar lymph nodes and right upper lobe mass. A neoplastic process should be ruled out. Heart and Vasculature: Coronary artery calcifications are noted. Coronary Artery Calcifications: Present Lungs and Airways: There is a 5.6 cm 7 cm by 10 cm mass in the right upper lobe abutting the mediastinum with right hilar lymph nodes. Scarring at the lung bases more prominent at the right lung base. There is also evidence of a 1.8 cm by 1.7 cm nodule in the left lower lobe. A metastatic deposit should be ruled out. Pleura: No pleural effusion. Upper Abdomen: Unremarkable. Bones: Degenerative changes of the thoracic spine. The right shoulder is unremarkable. CT/Chest without Contrast IMPRESSION: Co large mass in the right upper lobe with right hilar lymphadenopathy. A neoplastic process should be ruled out. Metastatic nodule in the left lower lobe with bibasilar scarring worse at the right lung base. Reading Location: [place] [address] CC: SID Haji; Dr. Ike Dawson DO Engineer Chief: Signed [facility] Chloride assayOrdered By: Jacinto Dawson on 05-04-2025 Chloride [Moles/Vol] 97 mmol/L Low 98-108 [place] Comment on above: Performed By: #### L 100.0100, L500.2500, L300.4310, L300.3900 #### [facility] [address] [place], [address] Emergency Department Summary on 05-04-2025 Emergency Department Summary [facility] Medical Records Department [address] [place] [address] Emergency Department Summary 05/04/25 MR#: [id number] Acct: [id number] Name: ITZEL ALONZO Rep #: [id number] : 1950 74 From: Ike Nuñez PCP: Carlene Haji, MEASUREMENT DEPARTMENT CHIEF CLERK-C Status:DEP ER Location: ED HPI HPI - Fall History of Present Illness Chief Complaint: Fall Informant: patient and spouse/S.O. Narrative Narrative: Brought in by EMS from home fall in the bathroom. Standing urinated felt dizzy following into the tub. Hit his head he reported passing out he is on baby aspirin. Pain to his right shoulder right ribs headache and neck pain. He ambulates with a walker at baseline. Denies cough vomiting diarrhea denies urinary symptoms. Of note was seen 10 days ago for vertigo symptoms negative workup sent home on Valium 2 mg. Been using intermittently last use yesterday evening. [facility] Medical History Kidney stones Neuropathy PTSD (post-traumatic stress disorder) Anxiety Hepatitis Smoker COPD (chronic obstructive pulmonary disease) Hypertension Diabetes Home Medications ???Medication ???Instructions ???Recorded ???Last Taken ???Type gabapentin 300 mg capsule 300 mg PO TID neuropathy 02/24/15 Unknown History amlodipine 5 mg tablet 5 mg PO QHS blood pressure 1 Unknown History aspirin 81 mg tablet,delayed 81 mg PO DAILY heart health Unknown History release budesonide-formoter ol HFA 80 2 puff inhalation BID COPD 1 Unknown History mcg-4.5 mcg/actuation aerosol inhaler (Symbicort) cyclobenzaprine 10 mg tablet 10 mg PO TID PRN muscle spasms Unknown History losartan 50 mg tablet 50 mg PO DAILY blood pressure 04/25 04/14 Unknown History Held on 05/04/25. Instructions: PT STATES HASN'T BEEN TAKING sildenafil 100 mg tablet 100 mg PO DAILY PRN Erectile 05/09 Unknown History Dysfunction atorvastatin 80 mg tablet 80 mg PO QHS #90 tabs 05/12/21 Unk nown Rx insulin aspart U-100 100 unit/mL 10 unit subcut TIDCM 12/12/24 Unkn own History (3 mL) subcutaneous pen (Novolog FlexPen U-100 Insulin aspart) diazepam 2 mg tablet (Valium) 2 mg PO TID PRN vertigo/dizziness 04/24/25 05/04/25 Rx 5 days #15 tabs ibuprofen 800 mg tablet (IBU) 800 mg PO Q8H 05/04/25 05/03/25 Hi story insulin glargine 100 unit/mL (3 10 unit subcut QPM 05/04/25 Unknow n History mL) subcutaneous pen (Lantus Solostar U-100 Insulin) magnesium hydroxide 400 mg/5 mL 5 ml PO DAILY PRN constipation 09/1805/03/25 History oral suspension (Gentle Laxative (magnesium hydroxide)) ropinirole 1 mg tablet 1 mg PO DAILY 05/04/25 Unknown His tory tramadol 50 mg tablet 50 mg PO Q6H PRN pain #12 tabs 09/18 Unknown Rx Allergy/AdvReac Type Severity Reaction Status Date / Time No Known Allergies Allergy Verified 05/04/25 11:24 Family History Mother CVA (cerebral vascular accident) Surgical History Hx of appendectomy Social History household members: none housing: apartment Smoking Status: Current some day smoker tobacco type: cigarettes and cigars ROS ROS ED Constitutional Constitutional ED: Denies chills, fever(s) or sweats ENT ENT ED: Denies sore throat Cardiovascular Cardiovascular: Denies chest pain, leg edema, palpitations or racing heartbeat Respiratory/Chest Respiratory/Chest: Denies cough, dyspnea or dyspnea on exertion Gastrointestinal Gastrointestinal: Denies abdominal pain, diarrhea, nausea or vomiting Genitourinary Genitourinary ED: Denies dysuria, hematuria or urinary frequency Musculoskeletal Musculoskeletal: Reports extremity pain, neck pain and other Details: Right rib pain ; Denies back pain Integumentary Denies rash or wounds Neurologic Neurologic: Reports headache(s); Denies paresthesias or weakness EXAM Physical Exam Const Vital Signs: 05/04/25 11:13 05/04/25 11:22 05/04/25 13:12 Temperature 98.3 F Temperature Source Oral Pulse Rate 96 90 Respiratory Rate 20 H Respiratory Effort Normal Non-Labored Respiratory Pattern Normal Blood Pressure 139/90 H 153/96 H Blood Pressure Mean 106 115 Pulse Ox 97 Oxygen Delivery Method Room Air Room Air Oxygen Flow Rate (L/min) 97 05/04/25 14:54 05/04/25 14:54 Temperature 98.3 F Temperature Source Pulse Rate 91 91 Respiratory Rate 16 Respiratory Effort Respiratory Pattern Blood Pressure 146/88 H 146/88 H Blood Pressure Mean 107 107 Pulse Ox 98 Oxygen Delivery Method Oxygen Flow Rate (L/min) Positive well no (more content not included)... [facility] Eosinophil percentageOrdered By: Ike Dawson on 05-04-2025 Eosinophils/100 WBC (Bld) 1.5 % 0-5 [facility] Erythrocyte distribution wid th ratioOrdered By: Ike Dawson on 05-04-2025 Erythrocyte distribution width (RBC) [Ratio] 20.1 % High 11.6-14.6 [facility] Erythrocyte distribution wid th standard deviationOrdered By: Ike Dawson on 05-04-2025 Erythrocyte distribution width (RBC) [Ratio] 45.7 fl High 35.1-43.9 [facility] Glomerular filtration rate ( GFR) estimation/1.73 sq m using serum, plasma, or whole bOrdered By: Ike Dawson on 05-04-2025 GFR/1.73 sq M.predicted among non-blacks MDRD (S/P/Bld) [Vol rate/Area] 67 mL/min/{1.73_m2} >60 [facility] Comment on above: mL/min/1.73m2 CKD-EP I Creatinine Equation (2020) Result Comment: mL/m in/1.73m2 CKD-EPI Creatinine Equation (2020) Performed By: #### L 100.0100, L500.2500, L300.4310, L300.3900 #### [facility] [address] [place], [place], [id number] Hematocrit Auto (Bld) [Volum e fraction]Ordered By: Ike Dawson on 05-04-2025 Hematocrit (Bld) [Volume fraction] 32.4 % Low 40-54 [facility] Hemoglobin measurementOrdere d By: Ike Dawson on 05-04-2025 Hemoglobin (Bld) [Mass/Vol] 9.8 g/dL Low 13.0-16.5 [facility] Immature granulocytes/100 WB C Auto (Bld)Ordered By: Ike Dawson on 05-04-2025 Immature granulocytes/100 WBC (Bld) 0.500 % 0.0-0.9 [facility] Comment on above: IG% - Immature Granu locytes (promyelocytes, myelocytes and metamyelocytes) > 1% indicates that a LEFT SHIFT is Present. International normalized rat io (INR) calculationOrdered By: Ike Dawson on 05-04-2025 INR Coag (Bld) [Relative time] 1.1 {INR} [facility] MCV (mean corpuscular volume ) determinationOrdered By: Ike Dawson on 05-04-2025 MCV (RBC) [Entitic vol] 65.9 fL Low 80-94 [facility] Mean corpuscular hemoglobin (MCH) determinationOrdered By: Ike Dawson on 05-04-2025 MCH (RBC) [Entitic mass] 19.9 pg Low 27.0-32.0 [facility] Mean corpuscular hemoglobin concentration (MCHC) determinationOrdered By: Ike Dawson on 05-04-2025 MCHC (RBC) [Mass/Vol] 30.2 g/dL Low 32-36 [facility] Mean platelet volume determi nationOrdered By: Ike Dawson on 05-04-2025 Platelet mean volume (Bld) [Entitic vol] 9.9 fL 6.2-12.0 [facility] Monocyte percentageOrdered B y: Ike Dawson on 05-04-2025 Monocytes/100 WBC (Bld) 6.9 % 0-10 [facility] Neutrophil percentageOrdered By: Iek Dawson on 05-04-2025 Neutrophils/100 WBC (Bld) 61.4 % 47-70 [facility] Nucleated red blood cell per centageOrdered By: Ike Dawson on 05-04-2025 Nucleated RBC/100 WBC (Bld) [Ratio] 0 % 0-5 [facility] Partial Thromboplast Timeon 05-04-2025 aPTT Coag (Bld) [Time] 31.9 s Normal 24.1-36.2 [facility] Comment on above: Performed By: #### L 100.0100, L500.2500, L300.4310, L300.3900 #### [facility] [address] [place], [address] Platelet countOrdered By: Jacinto Dawson on 05-04-2025 Platelets (Bld) [#/Vol] 412 10*3/uL 150-450 [facility] Platelet estimateOrdered By: Ike Dawson on 05-04-2025 Platelets LM Ql (Bld) A ADEQ [facility] Potassium measurement (mass/ volume)Ordered By: Ike Dawson on 05-04-2025 Potassium (Unsp spec) [Mass/Vol] 4.2 mmol/L 3.3-5.1 [facility] Prothrombin Time w/INRon INR Coag (PPP) [Relative time] 1.1 {INR} [facility] Comment on above: Performed By: #### L 100.0100, L500.2500, L300.4310, L300.3900 #### [facility] [address] [place], [address] Prothrombin timeOrdered By: Ike Dawson on 05-04-2025 PT Coag (PPP) [Time] 14.8 s 11.7-14.9 [place] Comment on above: Performed By: #### L 100.0100, L500.2500, L300.4310, L300.3900 #### [facility] [address] [place], [address] RBC Auto (Bld) [#/Vol]Ordere d By: Ike Dawson on 05-04-2025 RBC (Bld) [#/Vol] 4.92 10*6/uL 4.6-6.2 [facility] Serum creatinine measurement (mass/volume)Ordered By: Ike Dawson on 05-04-2025 Creatinine [Mass/Vol] 1.14 mg/dL 0.70-1.20 [facility] Comment on above: Performed By: #### L 100.0100, L500.2500, L300.4310, L300.3900 #### [facility] [address] [facility] [place], [address] Serum glucose measurement (m ass/volume)Ordered By: Ike Dawson on 05-04-2025 Glucose [Mass/Vol] 229 mg/dL High 70-99 [facility] Comment on above: Performed By: #### L 100.0100, L500.2500, L300.4310, L300.3900 #### [facility] [address] [place], [address] Serum or plasma calcium ivania urement (mass/volume)Ordered By: Ike Dawson on 05-04-2025 Calcium [Mass/Vol] 12.2 mg/dL High 7.6-11.0 [facility] Comment on above: Performed By: #### L 100.0100, L500.2500, L300.4310, L300.3900 #### [facility] [address] [facility] [place], [address] Serum or plasma urea nitroge n measurement (mass/volume)Ordered By: Ike Dawson on 05-04-2025 Urea nitrogen [Mass/Vol] 19 mg/dL 4-19 [facility] Comment on above: Performed By: #### L 100.0100, L500.2500, L300.4310, L300.3900 #### [facility] [address] [facility] [place], [address] Shoulder min 2 Viewson 05-04 Shoulder min 2 Views [facility] [address] [place] [address] Shoulder min 2 Views MR#: [id number] Acct: [id number] Name: ITZEL ALONZO Rep #: [id number] : 1950 M 74 From: Lion torres MD PCP: Carlene N Adithya, MEASUREMENT DEPARTMENT CHIEF CLERK-C Status: REG ER Study: Shoulder min 2 Views Date of Exam: 05/04/25 Exam# [id number] Ordering Dr: Ike Dawson DO PROCEDURE: SHOULDER MIN 2 VIEWS 05/04/2025 REASON FOR EXAM: INJURY Right shoulder pain following injury. TECHNIQUE: Four views of the right shoulder were obtained. COMPARISON: None FINDINGS: Bones: No fracture is seen. Joints: No evidence of dislocation. Soft tissues: Right upper lobe soft tissue density. Underlying mass should be ruled out. Findings suggestive of scarring at the right lung base. Other: RAD/Shoulder min 2 Views IMPRESSION: Shoulder is unremarkable. Soft tissue density seen in the right upper lobe as described. Correlation with a CT scan recommended. Reading Location: [place] [address] CC: MEASUREMENT DEPARTMENT CHIEF CLERK-C Carlene Haji; Dr. Ike Dawson DO Engineer Chief: Signed [facility] Sodium levelOrdered By: Ike Dawson on 05-04-2025 Sodium [Moles/Vol] 136 mmol/L 133-145 [facility] Comment on above: Performed By: #### L 100.0100, L500.2500, L300.4310, L300.3900 #### [facility] [address] [place], [address] Spine Cervical without Contr ason 05-04-2025 Spine Cervical without Contras [facility] [address] [place] [address] Spine Cervical without Contras MR#: [id number] Acct: [id number] Name: ITZEL ALONZO Rep #: [id number] : 1950 M 74 From: Lion torres MD PCP: Carlene Haji, MEASUREMENT DEPARTMENT CHIEF CLERK-C Status: REG ER Study: Spine Cervical without Contras Date of Exam: 0 05/04/25 Exam# [id number] Ordering Dr: Ike Dawson DO PROCEDURE: SPINE CERVICAL WITHOUT CONTRAS 05/04/2025 REASON FOR EXAM: INJURY History of fall. TECHNIQUE: Cervical spine CT without contrast. Coronal and Sagittal reconstruction series were provided. One or more dose reduction techniques were used (e.g., Automated exposure control, adjustment of the mA and/or kV according to patient size, use of iterative reconstruction technique RADIATION DOSE SUMMARY: CTDlvol: 13.49 mGy DLP: 616.82 mGycm COMPARISON: None FINDINGS: Alignment: Straightening of the normal cervical lordosis. Vertebrae: Anterior spondylosis. Soft Tissues: Soft tissue mass in the right upper lobe. Right supraclavicular lymphadenopathy. Other: Atherosclerotic calcification of the carotid bifurcations. C1-2: Degenerative changes of the atlantoaxial joint. C2-3: Facet joint osteoarthritis with the hypertrophy worse on the left side. No significant stenosis seen. C3-4: Minimal anterior listhesis of C3 on C4 secondary to facet joint osteoarthritis and hypertrophy. Bilateral neural foraminal stenosis. C4-5: Disc space height is relatively well-maintained. Hypertrophy of the facet joints. No significant stenosis seen. C5-6: Moderate degree of disc space narrowing. Spondylosis. Uncovertebral arthrosis. Bilateral neural foraminal stenosis. C6-7: Moderate degree of disc space narrowing. Uncovertebral arthrosis. Mild bilateral neural foraminal stenosis. C7-T1: Unremarkable CT/Spine Cervical without Contras IMPRESSION: NO ACUTE CERVICAL FRACTURE. Multilevel facet osteoarthritis and hypertrophy as well as neural foraminal stenosis. Right upper lobe pulmonary mass. Reading Location: [place] [address] CC: SID Haji; Dr. Ike Dawson DO Engineer Chief: Signed [facility] White blood cell (WBC) count Ordered By: Ike Dawson on 05-04-2025 WBC (Bld) [#/Vol] 11.5 10*3/uL High 4.4-11.0 [facility] Bedside Glucoseon 04-24-2025 FINGERSTICK GLU 137 mg/dL High 74-106 [facility] Comment on above: Result Comment: BELLA PENALOZA OF PATIENT CARE PER NURSING PROTOCOL Performed By: #### L 501.080 #### [facility] [address] [place], [place] [address] [facility] [place], [address] [facility] deOrdered By: Steven Tejeda on 04-24-2025 Glucose [Mass/Vol] 137 mg/dL High 74-106 [facility] Comment on above: MANAGEMENT OF PATIEN T CARE PER NURSING PROTOCOL L499.0043on 04-24-2025 Trop T High Sen Normal <=22 [facility] Comment on above: Result Comment: Canc ellflorencia via OM: MD Ordered Performed By: #### L 499.0042 #### [facility] [address] [place], [address] 12 Lead EKGon 04-23-2025 12 Lead EKG [facility] [address] [place] [address] 12 Lead EKG 04/23/25 2145 MR#: [id number] Acct: [id number] Name: ITZEL ALONZO Rep #: [id number] : 1950 74 From: Adams Connell MD Attending Dr: Status: DEP ER Ordering Dr: Steven Tejeda DO Date: 04/23/25 Location: ED Sex: M AA Admitted: Test Reason : DYSRHYTHMIA Blood Pressure : */* mmHG Vent. Rate : 87 BPM Atrial Rate : 87 BPM P-R Int : 172 ms QRS Dur : 84 ms QT Int : 368 ms P-R-T Axes : 34 62 28 degrees QTcB Int : 442 ms Normal sinus rhythm Normal ECG Confirmed by Adams Connell ([id number]), editorial writer KATIE ABRAHAM ([id number]) on 04/26/2025 10:51:11 AM Referred By: Confirmed By: Adams Connell 04/26/25 1051 Date Adams Connell MD CC: SID Haji; Dr. Steven Tejeda DO Signed Normal [facility] Absolute lymphocyte countOrd ered By: Steven Tejeda on 04-23-2025 Lymphocytes Auto (Unsp spec) [#/Vol] 3.56 10*3/uL 0.83-4.51 [facility] Absolute neutrophil countOrd ered By: Steven Tejeda on 04-23-2025 Neutrophils (Bld) [#/Vol] 8.4 10*3/uL High 2.0-7.7 [facility] Activated partial thrombopla stin time (aPTT) in platelet poor plasma by coagulation aOrdered By: Steven Tejeda on 04-23-2025 aPTT Coag (PPP) [Time] 27.9 s 24.1-36.2 [facility] Anion gap in Serum or Plasma Ordered By: Steven Tejeda on 04-23-2025 Anion gap [Moles/Vol] 11 mmol/L 5- [facility] Automated lymphocyte count a s percentage of total leukocytesOrdered By: Steven Tejeda on 04-23-2025 Lymphocytes/100 WBC Auto (Unsp spec) 27.6 % [facility] BUN/creatinine ratioOrdered By: Steven Tejeda on 04-23-2025 Urea nitrogen/Creatinine [Mass ratio] 20.6 mg/mg High - [facility] Basic Metabolic Profile (BMP )on 04-23-2025 BUN/CRE 20.6 RATIO High - [facility] Comment on above: Performed By: #### L 100.0100, L501.4021, L300.3900, L300.4310, L500.2500 ####[facility] [address] [place], [address] Calcium [Mass/Vol] 10.3 mg/dL Normal 7.6-11.0 [facility] Comment on above: Performed By: #### L 100.0100, L501.4021, L300.3900, L300.4310, L500.2500 ####[facility] [address] [place], [address] Chloride [Moles/Vol] 101 mmol/L Normal 98-108 [place] Comment on above: Performed By: #### L 100.0100, L501.4021, L300.3900, L300.4310, L500.2500 ####[facility] [address] [place], [address] CO2 [Moles/Vol] 22.9 mmol/L Normal 21.0-32.0 [facility] Comment on above: Performed By: #### L 100.0100, L501.4021, L300.3900, L300.4310, L500.2500 ####[facility] [address] [place], [address] Creatinine [Mass/Vol] 0.96 mg/dL Normal 0.70-1.20 [facility] Comment on above: Performed By: #### L 100.0100, L501.4021, L300.3900, L300.4310, L500.2500 ####[facility] [address] [place], [address] ECRCL 66.44 ml/min Normal 50-250 [facility] Comment on above: Performed By: #### L 100.0100, L501.4021, L300.3900, L300.4310, L500.2500 ####[facility] [address] [place], [address] GAP 11 Normal 5-15 [facility] Comment on above: Performed By: #### L 100.0100, L501.4021, L300.3900, L300.4310, L500.2500 ####[facility] [address] [place], [address] GFR/1.73 sq M.predicted among non-blacks MDRD (S/P/Bld) [Vol rate/Area] 82 mL/min/{1.73_m2} Normal >60 [facility] Comment on above: Result Comment: mL/m in/1.73m2 CKD-EPI Creatinine Equation (2020) Performed By: #### L 100.0100, L501.4021, L300.3900, L300.4310, L500.2500 ####[facility] [address] [place], [address] Glucose [Mass/Vol] 292 mg/dL High 70-99 [facility] Comment on above: Performed By: #### L 100.0100, L501.4021, L300.3900, L300.4310, L500.2500 ####[facility] [address] [place], [address] Potassium [Moles/Vol] 3.9 mmol/L Normal 3.3-5.1 [facility] Comment on above: Performed By: #### L 100.0100, L501.4021, L300.3900, L300.4310, L500.2500 ####[facility] [address] [place], [address] Sodium [Moles/Vol] 134 mmol/L Normal 133-145 [facility] Comment on above: Performed By: #### L 100.0100, L501.4021, L300.3900, L300.4310, L500.2500 ####[facility] [address] [place], [address] Urea nitrogen [Mass/Vol] 20 mg/dL High 4-19 [facility] Comment on above: Performed By: #### L 100.0100, L501.4021, L300.3900, L300.4310, L500.2500 ####[facility] [address] [place], [address] Basophil percentageOrdered B y: Steven Tejeda on 04-23-2025 Basophils/100 WBC (Bld) 0.2 % 0-1 [facility] CBC W/Diff, Automatedon 03-27 Absolute Lymph 3.56 X10 3/uL Normal 0.83-4.51 [facility] Comment on above: Performed By: #### L 100.0100, L501.4021, L300.3900, L300.4310, L500.2500 ####[facility] [address] [place], [address] Absolute Neut 8.4 X10 3/uL High 2.0-7.7 [facility] Comment on above: Performed By: #### L 100.0100, L501.4021, L300.3900, L300.4310, L500.2500 ####[facility] [address] [place], [address] Basophils/100 WBC (Bld) 0.2 % Normal 0-1 [facility] Comment on above: Performed By: #### L 100.0100, L501.4021, L300.3900, L300.4310, L500.2500 ####[facility] [address] [place], [address] Eosinophils/100 WBC (Bld) 1.9 % Normal 0-5 [facility] Comment on above: Performed By: #### L 100.0100, L501.4021, L300.3900, L300.4310, L500.2500 ####[facility] [address] [place], [address] Erythrocyte distribution width (RBC) [Ratio] 19.0 % High 11.6-14.6 [facility] Comment on above: Performed By: #### L 100.0100, L501.4021, L300.3900, L300.4310, L500.2500 ####[facility] [address] [place], [address] Hematocrit (Bld) [Volume fraction] 31.1 % Low 40-54 [facility] Comment on above: Performed By: #### L 100.0100, L501.4021, L300.3900, L300.4310, L500.2500 ####[facility] [address] [place], [address] Hemoglobin (Bld) [Mass/Vol] 9.3 g/dL Low 13.0-16.5 [facility] Comment on above: Performed By: #### L 100.0100, L501.4021, L300.3900, L300.4310, L500.2500 ####[facility] [address] [place], [address] IG% 0.500 Normal 0.0-0.9 [facility] Comment on above: Result Comment: IG% - Immature Granulocytes (promyelocytes, myelocytes and metamyelocytes) > 1% indicates that a LEFT SHIFT is Present. Performed By: #### L 100.0100, L501.4021, L300.3900, L300.4310, L500.2500 ####[facility] [address] [place], [address] Lymphocytes/100 WBC (Bld) 27.6 % Normal 19-41 [facility] Comment on above: Performed By: #### L 100.0100, L501.4021, L300.3900, L300.4310, L500.2500 ####[facility] [address] [place], [address] MCH (RBC) [Entitic mass] 19.7 pg Low 27.0-32.0 [facility] Comment on above: Performed By: #### L 100.0100, L501.4021, L300.3900, L300.4310, L500.2500 ####[facility] [address] [place], [address] MCHC (RBC) [Mass/Vol] 29.9 g/dL Low 32-36 [facility] Comment on above: Performed By: #### L 100.0100, L501.4021, L300.3900, L300.4310, L500.2500 ####[facility] [address] [place], [address] MCV (RBC) [Entitic vol] 66.0 fL Low 80-94 [facility] Comment on above: Performed By: #### L 100.0100, L501.4021, L300.3900, L300.4310, L500.2500 ####[facility] [address] [place], [address] Monocytes/100 WBC (Bld) 4.9 % Normal 0-10 [facility] Comment on above: Performed By: #### L 100.0100, L501.4021, L300.3900, L300.4310, L500.2500 ####[facility] [address] [place], [address] Neutrophils/100 WBC (Bld) 64.9 % Normal 47-70 [facility] Comment on above: Performed By: #### L 100.0100, L501.4021, L300.3900, L300.4310, L500.2500 ####[facility] [address] [place], [address] Nucleated RBC (Bld) [#/Vol] 0 10*3/uL Normal 0-5 [facility] Comment on above: Performed By: #### L 100.0100, L501.4021, L300.3900, L300.4310, L500.2500 ####[facility] [address] [place], [address] Platelet mean volume (Bld) [Entitic vol] 9.4 fL Normal 6.2-12.0 [facility] Comment on above: Performed By: #### L 100.0100, L501.4021, L300.3900, L300.4310, L500.2500 ####[facility] [address] [place], [address] Platelets (Bld) [#/Vol] 350 10*3/uL Normal 150-450 [facility] Comment on above: Performed By: #### L 100.0100, L501.4021, L300.3900, L300.4310, L500.2500 ####[facility] [address] [place], [address] RBC (Bld) [#/Vol] 4.71 10*6/uL Normal 4.6-6.2 [facility] Comment on above: Performed By: #### L 100.0100, L501.4021, L300.3900, L300.4310, L500.2500 ####[facility] [address] [place], [address] RDW SD 43.6 fl Normal 35.1-43.9 [facility] Comment on above: Performed By: #### L 100.0100, L501.4021, L300.3900, L300.4310, L500.2500 ####[facility] [address] [place], [address] WBC (Bld) [#/Vol] 12.9 10*3/uL High 4.4-11.0 [facility] Comment on above: Performed By: #### L 100.0100, L501.4021, L300.3900, L300.4310, L500.2500 ####[facility] [address] [place], [address] Carbon dioxide, total [Moles /volume] in Central venous bloodOrdered By: Steven Tejeda on 04-23-2025 CO2 [Moles/Vol] 22.9 mmol/L 21.0-32.0 [facility] Chest 1 View (Portable)on Chest 1 View (Portable) [facility] Imaging Services [address] [place] [address] Chest 1 View (Portable) MR#: [id number] Acct: [id number] Name: ITZEL ALONZO Rep #: [id number] : 1950 M 74 From: Deonte Perez MD PCP: Carlene Haji, MEASUREMENT DEPARTMENT CHIEF CLERK-René Status: [facility] ER Study: Chest 1 View (Portable) Date of Exam: 04/23/25 Exam# [id number] Ordering Dr: Steven Tejeda DO PROCEDURE: CHEST 1 VIEW (PORTABLE) 04/23/2025 REASON FOR EXAM: DIZZINESS TECHNIQUE: Frontal view of the chest. COMPARISON: 05/09/2021. FINDINGS: Hardware: None Heart: The heart size is normal. Lungs: Large right perihilar masslike opacity. Bilateral hilar prominence which may represent adenopathy. Bones: Degenerative changes are identified within the thoracic spine. Other: None. RAD/Chest 1 View (Portable) IMPRESSION: Large right perihilar masslike opacity suspicious for malignancy. Prominent perihilar regions which may represent adenopathy. Reading Location: [id number] CC: LUIS MIGUELC Carlene Haji; Dr. Steven Tejeda DO Engineer Chief: Signed Normal [facility] Chloride assayOrdered By: Emil Tejeda on 04-23-2025 Chloride [Moles/Vol] 101 mmol/L 98-108 [place] Summary on 04-23-2025 Emergency Department Summary [facility] Medical Records Department [address] [place] [address] Emergency Department Summary 04/23/25 MR#: [id number] Acct: [id number] Name: ITZEL ALONZO Rep #: [id number] : 1950 74 From: Steven Tejeda DO PCP: SID Haro Status:DEP ER Location: ED HPI History of Present Illness Chief Complaint: Neuro S/Sx Informant: patient Onset/Context/Timin g Onset: Today Context: Sudden Onset Timing: Continuous Quality: Off balance Location: Generalized Worsened by: Standing Relieved by: Nothing Narrative Narrative: Patient presents with not feeling right. Patient states he felt fine this morning when he woke up. Patient states he has been feeling off balance since approximately 7 AM this morning. Patient states his symptoms are worse with standing. Patient states he feels like he wants to fall to the left. Patient admits to some pain in his chest. Patient admits to some subjective chills. Patient states he fell approximately 2 weeks ago and hit the back of his head and both shoulders. Patient does not take any anticoagulants. Patient was also recently diagnosed with lung cancer in his right lung. [facility] Medical History Kidney stones Neuropathy PTSD (post-traumatic stress disorder) Anxiety Hepatitis Smoker COPD (chronic obstructive pulmonary disease) Hypertension Diabetes Home Medications ???Medication ???Instructions ???Recorded ???Last Taken ???Type gabapentin 300 mg capsule 300 mg PO TID neuropathy 02/24/15 Unknown History albuterol 2 puff NASAL Q4H PRN SOB 05/09/21 Unknown History amlodipine 5 mg tablet 5 mg PO QHS blood pressure 1 Unknown History aspirin 81 mg tablet,delayed 81 mg PO DAILY heart health Unknown History release budesonide-formoter ol HFA 80 2 puff inhalation BID COPD 1 Unknown History mcg-4.5 mcg/actuation aerosol inhaler (Symbicort) cyclobenzaprine 10 mg tablet 10 mg PO TID PRN muscle spasms Unknown History losartan 50 mg tablet 50 mg PO DAILY blood pressure 04/25 04/14 Unknown History mecobalamin (vitamin B12) 1,000 500 mcg PO DAILY supplement Unknown History mcg chewable tablet sildenafil 100 mg tablet 100 mg PO DAILY PRN Erectile 05/09 Unknown History Dysfunction trazodone 50 mg tablet 25 mg PO QHS sleep 05/09/21 Unknow n History vitamin E 200 unit tablet 200 unit PO DAILY supplement 05/09 Unknown History atorvastatin 80 mg tablet 80 mg PO QHS #90 tabs 05/12/21 Unk nown Rx insulin aspart U-100 100 unit/mL subcut 12/12/24 Unknown History (3 mL) subcutaneous pen (Novolog FlexPen U-100 Insulin aspart) diazepam 2 mg tablet (Valium) 2 mg PO TID PRN vertigo/dizziness 04/24/25 Unknown Rx 5 days #15 tabs Allergy/AdvReac Type Severity Reaction Status Date / Time No Known Allergies Allergy Verified 04/23/25 21:01 Family History Mother CVA (cerebral vascular accident) Surgical History Hx of appendectomy Social History household members: none housing: apartment Smoking Status: Current some day smoker tobacco type: cigarettes and cigars ROS ROS ED Constitutional Constitutional ED: Reports chills and subjective; Denies fever(s) Eyes Eyes: Denies blurry vision or change in vision ENT ENT ED: Denies rhinorrhea or sore throat Cardiovascular Cardiovascular: Reports chest pain; Denies palpitations Respiratory/Chest Respiratory/Chest: Denies cough or dyspnea Gastrointestinal Gastrointestinal: Denies nausea or vomiting Genitourinary Genitourinary ED: Denies dysuria or hematuria Musculoskeletal Musculoskeletal: Reports back pain and neck pain Integumentary Denies abscess or rash Neurologic Neurologic: Reports headache(s) and weakness Allergic/Immunologi c Allergic/Immunologi c ED: Denies mouth swelling or urticaria EXAM Physical Exam Const Vital Signs: 04/23/25 21:02 04/23/25 21:27 04/23/25 21:34 Temperature 98.6 F Temperature Source Oral Pulse Rate 93 85 Pulse Rate [Lying] Pulse Rate [Sitting (for 1 minute prior to obtaining)] Pulse Rate [Standing (for 1 minute prior to obtaining)] Respiratory Rate 25 H 23 H Blood Pressure 171/90 H 140/105 H Blood Pressure [Lying] Blood Pressure [Sitting (for 1 minute prior to obtaining)] Blood Pressure [Standing (for 1 minute prior to obtaining)] Blood Pressure Mean 117 116 Blood Pressure Mean [Lying] Blood Pressure Mean [Sitting (for 1 minute prior to obtaining)] Blood Pressure Mean [Standing (for 1 minute prior to obtaining)] (more content not included)... Normal [facility] Eosinophil percentageOrdered By: Steven Tejeda on 04-23-2025 Eosinophils/100 WBC (Bld) 1.9 % 0-5 [facility] Erythrocyte distribution wid th ratioOrdered By: Steven Tejeda on 04-23-2025 Erythrocyte distribution width (RBC) [Ratio] 19.0 % High 11.6-14.6 [facility] Erythrocyte distribution wid th standard deviationOrdered By: Steven Tejeda on 04-23-2025 Erythrocyte distribution width (RBC) [Ratio] 43.6 fl 35.1-43.9 [facility] Glomerular filtration rate ( GFR) estimation/1.73 sq m using serum, plasma, or whole bOrdered By: Steven Tejeda on 04-23-2025 GFR/1.73 sq M.predicted among non-blacks MDRD (S/P/Bld) [Vol rate/Area] 82 mL/min/{1.73_m2} >60 [facility] Comment on above: mL/min/1.73m2 CKD-EP I Creatinine Equation (2020) Hematocrit Auto (Bld) [Volum e fraction]Ordered By: Steven Tejeda on 04-23-2025 Hematocrit (Bld) [Volume fraction] 31.1 % Low 40-54 [facility] Hemoglobin measurementOrdere d By: Steven Tejeda on 04-23-2025 Hemoglobin (Bld) [Mass/Vol] 9.3 g/dL Low 13.0-16.5 [facility] Immature granulocytes/100 WB C Auto (Bld)Ordered By: Steven Tejeda on 04-23-2025 Immature granulocytes/100 WBC (Bld) 0.500 % 0.0-0.9 [facility] Comment on above: IG% - Immature Granu locytes (promyelocytes, myelocytes and metamyelocytes) > 1% indicates that a LEFT SHIFT is Present. International normalized rat io (INR) calculationOrdered By: Steven Tejeda on 04-23-2025 INR Coag (Bld) [Relative time] 1.1 {INR} [facility] L499.0042on 04-23-2025 Trop T High Sen 27 ng/L High <=22 [facility] Comment on above: Performed By: #### L 499.0042 #### [facility] [address] [place], [address] L501.4021on 04-23-2025 Trop T High Sen 26 ng/L High <=22 [facility] Comment on above: Performed By: #### L 100.0100, L501.4021, L300.3900, L300.4310, L500.2500 ####[facility] [address] [place], [address] MCV (mean corpuscular volume ) determinationOrdered By: Steven Tejeda on 04-23-2025 MCV (RBC) [Entitic vol] 66.0 fL Low 80-94 [facility] Mean corpuscular hemoglobin (MCH) determinationOrdered By: Steven Tejeda on 04-23-2025 MCH (RBC) [Entitic mass] 19.7 pg Low 27.0-32.0 [facility] Mean corpuscular hemoglobin concentration (MCHC) determinationOrdered By: Steven Tejeda on 04-23-2025 MCHC (RBC) [Mass/Vol] 29.9 g/dL Low 32-36 [facility] Mean platelet volume determi nationOrdered By: Steven Tejeda on 04-23-2025 Platelet mean volume (Bld) [Entitic vol] 9.4 fL 6.2-12.0 [facility] Monocyte percentageOrdered B y: Steven Tejeda on 04-23-2025 Monocytes/100 WBC (Bld) 4.9 % 0-10 [facility] Neutrophil percentageOrdered By: Steven Tejeda on 04-23-2025 Neutrophils/100 WBC (Bld) 64.9 % 47-70 [facility] Nucleated red blood cell per centageOrdered By: Steven Tejeda on 04-23-2025 Nucleated RBC/100 WBC (Bld) [Ratio] 0 % 0-5 [facility] Partial Thromboplast Timeon 04-23-2025 aPTT Coag (Bld) [Time] 27.9 s Normal 24.1-36.2 [facility] Comment on above: Performed By: #### L 100.0100, L501.4021, L300.3900, L300.4310, L500.2500 ####[facility] [address] [place], [address] Platelet countOrdered By: Emil Tejeda on 04-23-2025 Platelets (Bld) [#/Vol] 350 10*3/uL 150-450 [facility] Potassium measurement (mass/ volume)Ordered By: Steven Tejeda on 04-23-2025 Potassium (Unsp spec) [Mass/Vol] 3.9 mmol/L 3.3-5.1 [facility] Prothrombin Time w/INRon INR Coag (PPP) [Relative time] 1.1 {INR} Normal [facility] Comment on above: Performed By: #### L 100.0100, L501.4021, L300.3900, L300.4310, L500.2500 ####[facility] [address] [place], [address] PT Coag (PPP) [Time] 14.2 s Normal 11.7-14.9 [facility] Comment on above: Performed By: #### L 100.0100, L501.4021, L300.3900, L300.4310, L500.2500 ####[facility] [address] [place], [address] Prothrombin timeOrdered By: Steven Tejeda on 04-23-2025 PT Coag (PPP) [Time] 14.2 s 11.7-14.9 [facility] RBC Auto (Bld) [#/Vol]Ordere d By: Steven Tejeda on 04-23-2025 RBC (Bld) [#/Vol] 4.71 10*6/uL 4.6-6.2 [facility] STROKE Brain/Head without Co nton 04-23-2025 STROKE Brain/Head without Cont [facility] Imaging Services [address] [place], [place] [address] STROKE Brain/Head without Cont MR#: [id number] Acct: [id number] Name: ITZEL ALONZO Rep #: [id number] : 1950 M 74 From: Deonte Perez MD PCP: Carlene Haji, MEASUREMENT DEPARTMENT CHIEF CLERK-C Status: REG ER Study: STROKE Brain/Head without Cont Date of Exam: 0 04/23/25 Exam# [id number] Ordering Dr: Steven Tejeda DO PROCEDURE: STROKE BRAIN/HEAD WITHOUT CONT N/A REASON FOR EXAM: NEURO DEFICIT, ACUTE, STROKE SUSPECTED TECHNIQUE: Head CT without intravenous contrast. Coronal and Sagittal reconstruction series were provided. One or more dose reduction techniques were used (e.g., Automated exposure control, adjustment of the mA and/or kV according to patient size, use of iterative reconstruction technique. RADIATION DOSE SUMMARY: CTDlvol: 44.99+ 24.91+ 18.87 mGy DLP: 1598.74 mGycm COMPARISON: 05/09/2021. FINDINGS: Brain: Extensive low density in the deep cerebral white matter most likely represents advanced chronic small vessel ischemic disease. No evidence of acute fracture or dislocation. CSF Spaces: Moderate generalized cerebral atrophy Sinuses/Mastoids: Clear at visualized levels Bones: The calvarial vault and skull base are intact. CT/STROKE Brain/Head without Cont IMPRESSION: NO ACUTE FINDINGS. Consider MRI if clinically indicated. Parenchymal atrophy and chronic microvascular ischemia. Reading Location: [id number] CC: SID Haji; Dr. Steven Tejeda DO Engineer Chief: Signed Normal [facility] STROKE CTA Head AND Neck W/C onon 04-23-2025 STROKE CTA Head AND Neck W/Con [facility] Imaging Services [address] [place] [id number] STROKE CTA Head AND Neck W/Con MR#: [id number] Acct: [id number] Name: ITZEL ALONZO Rep #: [id number] : 1950 M 74 From: Deonte Perez MD PCP: SDI Haro Status: REG ER Study: STROKE CTA Head AND Neck W/Con Date of Exam: 0 04/23/25 Exam# [id number] Ordering Dr: Steven Tejeda DO PROCEDURE: STROKE CTA HEAD AND NECK W/CON 04/23/2025 REASON FOR EXAM: NEURO DEFICIT, ACUTE, STROKE SUSPECTED TECHNIQUE: CTA imaging of the head and neck from the aortic arch to the skull vertex with out contrast and with intravenous contrast. Multiplanar and multisequence images were obtained. CONTRAST: Isovue 370 VOLUME: 100 mL. One or more dose reduction techniques were used (e.g., Automated exposure control, adjustment of the mA and/or kV according to patient size, use of iterative reconstruction technique). RADIATION DOSE SUMMARY: CTDlvol: 44.99+ 24.91+ 18.87 mGy DLP: 1598.74 mGycm COMPARISON: 05/09/2021. FINDINGS: Aortic Arch: Patent. Brachiocephalic and Subclavians: Pain. RIGHT Carotid: Right CCA: Patent. Right ICA: Proximal atherosclerosis. Maximum stenosis (NASCET): 50% % Right ECA: Patent. LEFT Carotid: Left CCA: Patent. Left ICA: Proximal atherosclerosis. Maximum stenosis (NASCET): 30% % Left ECA: Patent. Vertebrals: Right is dominant to the left. RIGHT Vertebral: Patent. LEFT Vertebral: Distally occluded similar to the prior CTA. Anatomy: [place] anatomy is normal. Aneurysm or avm: No intracranial aneurysms or large vascular malformations are identified. Anterior cerebral arteries: Unremarkable: Middle cerebral arteries: Unremarkable. Basilar artery: Unremarkable. Posterior cerebral arteries: Unremarkable. Other major branches of the posterior circulation: Unremarkable. Other findings: Lungs: Large right apical 9.0 x 6.1 cm heterogeneous mass abutting the mediastinum. Bones: Degenerative changes of the spine. CT/STROKE CTA Head AND Neck W/Con IMPRESSION: Distally occluded left vertebral artery similar to the prior CTA. Very large right apical mass suspicious for malignancy. Reading Location: [id number] CC: SID Haji; Dr. Steven Tejeda DO Engineer Chief: Signed Normal [facility] Serum creatinine measurement (mass/volume)Ordered By: Steven Tejeda on 04-23-2025 Creatinine [Mass/Vol] 0.96 mg/dL 0.70-1.20 [facility] Serum glucose measurement (m ass/volume)Ordered By: Steven Tejeda on 04-23-2025 Glucose [Mass/Vol] 292 mg/dL High 70-99 [facility] Serum or plasma calcium ivania urement (mass/volume)Ordered By: Steven Tejeda on 04-23-2025 Calcium [Mass/Vol] 10.3 mg/dL 7.6-11.0 [facility] Serum or plasma urea nitroge n measurement (mass/volume)Ordered By: Steven Tejeda on 04-23-2025 Urea nitrogen [Mass/Vol] 20 mg/dL High 4-19 [facility] Sodium levelOrdered By: Steven Tejeda on 04-23-2025 Sodium [Moles/Vol] 134 mmol/L 133-145 [facility] Troponin T.cardiac [Mass/vol ume] in Serum or Plasma by High sensitivity methodOrdered By: Steven Tejeda on 04-23-2025 Troponin T.cardiac High sensitivity method [Mass/Vol] 27 ng/L High <22 [facility] Troponin T.cardiac High sensitivity method [Mass/Vol] 26 ng/L High <22 [facility] White blood cell (WBC) count Ordered By: Steven Tejeda on 04-23-2025 WBC (Bld) [#/Vol] 12.9 10*3/uL High 4.4-11.0 [facility] Bedside Glucoseon 12-12-2024 FINGERSTICK GLU 358 mg/dL High 74-106 [facility] Comment on above: Result Comment: BELLA PENALOZA OF PATIENT CARE PER NURSING PROTOCOL Performed By: #### L 501.080 #### [facility] [address] [place], [address] Emergency Department Summary on 12-12-2024 Emergency Department Summary [facility] Medical Records Department [address] [place] [address] Emergency Department Summary 12/12/24 MR#: [id number] Acct: [id number] Name: ITZEL ALONZO Rep #: [id number] : 1950 74 From: Juvencio Shen MD [facility]CP: [facility] Status:DEP ER Location: ED HPI History of Present Illness Chief Complaint: General Illness Narrative Narrative: Patient is a 74-year-old male with history of homelessness, anxiety, depression, PTSD, is part of the [place], and per the patient has history of lung cancer of the right lung. Patient states that he has been back in the [facility] for the last 6 to 7 months. He called the nurse hotline today, because he has been having some troubles with his fear secondary to his PTSD, he is having difficulty dealing with the war in the [place] the [place] secondary to his family being there. He also has history of peripheral neuropathy. Patient states that he was getting frustrated with the nurse on-call, especially when he started asking questions if they wanted to hurt himself or he has guns in the house. The nurse on-call then called the ambulance who brought him here. Patient denies any suicidal homicidal ideation. Patient states he is mostly here because of frustration. [facility] Medical History (Updated 12/12/24 @ 13:26 by SID Valverde) PTSD (post-traumatic stress disorder) Anxiety Hepatitis Smoker COPD (chronic obstructive pulmonary disease) Hypertension Diabetes Home Medications ???Medication ???Instructions ???Recorded ???Last Taken ???Type gabapentin 300 mg capsule 300 mg PO TID neuropathy 02/24/15 Unknown History albuterol 2 puff NASAL Q4H PRN SOB 05/09/21 Unknown History amlodipine 5 mg tablet 5 mg PO QHS blood pressure 05/09/21 Unknown History aspirin 81 mg tablet,delayed 81 mg PO DAILY heart health 05/09/21 Unknown History release budesonide-formoter ol HFA 80 2 puff inhalation BID COPD 05/09/21 Unknown History mcg-4.5 mcg/actuation aerosol inhaler (Symbicort) cyclobenzaprine 10 mg tablet 10 mg PO TID PRN muscle spasms 05/09/21 Unknown History losartan 50 mg tablet 50 mg PO DAILY blood pressure 05/09/21 Unknown History mecobalamin (vitamin B12) 1,000 500 mcg PO DAILY supplement 05/09/21 Unknown History mcg chewable tablet sildenafil 100 mg tablet 100 mg PO DAILY PRN Erectile 05/09/21 Unknown History Dysfunction trazodone 50 mg tablet 25 mg PO QHS sleep 05/09/21 Unknown History vitamin E 200 unit tablet 200 unit PO DAILY supplement 05/09/21 Unknown History atorvastatin 80 mg tablet 80 mg PO QHS #90 tabs 05/12/21 Unknown Rx insulin aspart U-100 100 unit/mL subcut 12/12/24 Unknown History (3 mL) subcutaneous pen (Novolog FlexPen U-100 Insulin aspart) Allergy/AdvReac Type Severity Reaction Status Date / Time No Known Allergies Allergy Verified 12/12/24 11:08 Family History Mother CVA (cerebral vascular accident) Surgical History Hx of appendectomy Social History Smoking Status: Current some day smoker tobacco type: cigarettes ROS ROS ED ROS Narrative Constitutional: Negative for fever, chills, weight loss, weakness Eyes: Negative for vision loss, vision change, double vision ENT: Negative for any sore throat, ear pain, congestion Cardiovascular: Negative for any chest pain, tightness, palpitations Respiratory: Negative for any cough, sputum production, hemoptysis, dyspnea, dyspnea on exertion, orthopnea Gastrointestinal: Negative for any abdominal pain, nausea, vomiting, diarrhea, constipation, blood in stool, blood in vomit : Negative for any urinary frequency, dysuria, retention, blood in urine Muscle skeletal: Negative for any neck pain, back pain. Positive for hand and feet pain Neurological: Negative for any headache, syncope, dizziness Skin: Negative for any rashes, itching, abrasions, lacerations Psychiatric: Negative for any suicidal ideation, homicidal ideation. Positive for anxiety, depression, stress reaction Hematologic: Negative for any excessive bruising, easy bleeding EXAM Physical Exam Narrative Exam Narrative: Vital signs reviewed. Patient is alert and orient x 4. Patient is calm, patient is not saying anything regarding suicidal homicidal ideation. He does seem to be tearful, and more anxious. HEET: Head normocephalic atraumatic, TMs clear bilaterally. Posterior pharynx is clear, moist mucous membranes. Nares clear bilaterally. Neck: Supple with no lymphadenopathy or tenderness. No signs of meningismus. Cardiac: Regular rate and rhythm no murmurs gallops or rubs, equal peripheral pulses bilaterally. Respiratory: Lungs clear to auscult (more content not included)... Normal [facility] Abdomen/Pelvis W IV Cont ONL Yon 06-13-2024 Abdomen/Pelvis W IV Cont ONLY [facility] Imaging Services [address] [place] [address] Abdomen/Pelvis W IV Cont ONLY MR#: [id number] Acct: [id number] Name: ITZEL ALONZO Rep #: [id number] : 1950 M 74 From: Myke Mortensen MD PCP: [facility] Status: REG ER Study: Abdomen/Pelvis W IV Cont ONLY Date of Exam: Exam# [id number] Ordering Dr: Juana Michaud MD -[id number] INDICATION: abdominal pain EXAMINATION: CT ABDOMEN AND PELVIS WITH CONTRAST - CT Abdomen And Pelvis W/ Contrast Injection TECHNIQUE: Helically acquired images were obtained of the abdomen and pelvis following IV contrast. A radiation dose optimization technique was used for this scan. IV Contrast dosage and agent: 100 cc Isovue-370 Oral contrast: None. COMPARISON: 06/03/2024 FINDINGS: LOWER CHEST: Stable mild fibrotic changes right lung base. No cardiomegaly or pericardial effusion. LIVER: Homogeneous. No focal mass. GALLBLADDER AND BILIARY TREE: No calcified gallstones. Gallbladder contracted. No intra- or extrahepatic biliary ductal dilation. PANCREAS: No focal cystic or solid mass. SPLEEN: Normal size without focal cystic or solid mass. ADRENAL GLANDS: No nodules. KIDNEYS AND URETERS: No hydronephrosis. PERITONEUM: No ascites or free air. BOWEL: Prior appendectomy changes. No stomach or bowel distension. No focal inflammatory change. LYMPH NODES: No enlarged mesenteric or retroperitoneal lymph nodes. VESSELS: Aorta is non-dilated. URINARY BLADDER: Unremarkable. REPRODUCTIVE ORGANS: No pelvic masses. BONES: No acute or aggressive abnormality. CT/Abdomen/Pelvis W IV Cont ONLY IMPRESSION: No acute findings in the abdomen or pelvis. Electronically Signed: Myke Mortensen MD at 21:12 EDT , CC: Dr. Juana Michaud MD; [facility] Engineer Chief: Signed Normal [facility] Basic Metabolic Profile (BMP )on 06-13-2024 BUN/CRE 18.4 RATIO Normal 09-13 [facility] Comment on above: Performed By: #### L 500.2500, L100.0100, L500.3400, L501.2450 ####[facility] [address] [place], [address] CA,Total 9.1 mg/dL Normal 8.5-10.1 [facility] Comment on above: Performed By: #### L 500.2500, L100.0100, L500.3400, L501.2450 ####[facility] [address] [place], [address] Chloride [Moles/Vol] 100 mmol/L Normal 98-107 [facility] Comment on above: Performed By: #### L 500.2500, L100.0100, L500.3400, L501.2450 ####[facility] [address] [place], [address] CO2 [Moles/Vol] 24.0 mmol/L Normal 21.0-32.0 [facility] Comment on above: Performed By: #### L 500.2500, L100.0100, L500.3400, L501.2450 ####[facility] [address] [place], [address] Creatinine [Mass/Vol] 1.47 mg/dL High 0.70-1.30 [facility] Comment on above: Result Comment: The validity of the calculated GFR GFRAA in patients over 70 years has not been determined. Clinical correlation is essential. Performed By: #### L 500.2500, L100.0100, L500.3400, L501.2450 ####[facility] [address] [place], [address] ECRCL 48.22 ml/min Normal [facility] Comment on above: Performed By: #### L 500.2500, L100.0100, L500.3400, L501.2450 ####[facility] [address] [place], [address] EST GFR - AA 60 mL/min Normal >60 [facility] Comment on above: Result Comment: Afri can [place] GFR Calc Performed By: #### L 500.2500, L100.0100, L500.3400, L501.2450 ####[facility] [address] [place], [address] GAP 9 Normal 5-15 [facility] Comment on above: Performed By: #### L 500.2500, L100.0100, L500.3400, L501.2450 ####[facility] [address] [place], [address] GFR/1.73 sq M.predicted among non-blacks MDRD (S/P/Bld) [Vol rate/Area] 50 mL/min/{1.73_m2} Low >60 [facility] Comment on above: Result Comment: Non- GFR Calc Performed By: #### L 500.2500, L100.0100, L500.3400, L501.2450 ####[facility] [address] [place], [address] Glucose [Mass/Vol] 470 mg/dL Invalid Interpretation Code 74-106 [facility] Comment on above: Result Comment: Crit ical Result(s) Called at: 18:33:01 06/13/2024 by: CRYS LOCKHART TO JUSTYNA KEMP. Results read back by same. Glucose result greater than or equal to 200 mg/dL suggests DIABETES MELLITUS per A.D.A. criteria. Performed By: #### L 500.2500, L100.0100, L500.3400, L501.2450 ####[facility] [address] [place], [address] Potassium [Moles/Vol] 4.3 mmol/L Normal 3.5-5.1 [facility] Comment on above: Result Comment: Slig ht Hemolysis, Result may be falsely increased. Performed By: #### L 500.2500, L100.0100, L500.3400, L501.2450 ####[facility] [address] [place], [address] Sodium [Moles/Vol] 133 mmol/L Low 136-145 [facility] Comment on above: Performed By: #### L 500.2500, L100.0100, L500.3400, L501.2450 ####[facility] [address] [place], [address] Urea nitrogen [Mass/Vol] 27 mg/dL High 7-18 [facility] Comment on above: Performed By: #### L 500.2500, L100.0100, L500.3400, L501.2450 ####[facility] [address] [place], [address] CBC W/Diff, Automatedon 07-2 0-2024 Absolute Lymph 2.61 X10 3/uL Normal 0.83-4.51 [facility] Comment on above: Performed By: #### L 500.2500, L100.0100, L500.3400, L501.2450 ####[facility] [address] [place], [address] Absolute Neut 5.5 X10 3/uL Normal 2.0-7.7 [facility] Comment on above: Performed By: #### L 500.2500, L100.0100, L500.3400, L501.2450 ####[facility] [address] [place], [address] Basophils/100 WBC (Bld) 0.2 % Normal 0-1 [facility] Comment on above: Performed By: #### L 500.2500, L100.0100, L500.3400, L501.2450 ####[facility] [address] [place], [address] Eosinophils/100 WBC (Bld) 2.0 % Normal 0-5 [facility] Comment on above: Performed By: #### L 500.2500, L100.0100, L500.3400, L501.2450 ####[facility] [address] [place], [address] Erythrocyte distribution width (RBC) [Ratio] 16.1 % High 11.6-14.6 [facility] Comment on above: Performed By: #### L 500.2500, L100.0100, L500.3400, L501.2450 ####[facility] [address] [place], [address] Hematocrit (Bld) [Volume fraction] 37.0 % Low 40-54 [facility] Comment on above: Performed By: #### L 500.2500, L100.0100, L500.3400, L501.2450 ####[facility] [address] [place], [address] Hemoglobin (Bld) [Mass/Vol] 11.0 g/dL Low 13.0-16.5 [facility] Comment on above: Performed By: #### L 500.2500, L100.0100, L500.3400, L501.2450 ####[facility] [address] [place], [address] IG% 0.500 Normal 0.0-0.9 [facility] Comment on above: Result Comment: IG% - Immature Granulocytes (promyelocytes, myelocytes and metamyelocytes) > 1% indicates that a LEFT SHIFT is Present. Performed By: #### L 500.2500, L100.0100, L500.3400, L501.2450 ####[facility] [address] [place], [address] Lymphocytes/100 WBC (Bld) 29.4 % Normal 19-41 [facility] Comment on above: Performed By: #### L 500.2500, L100.0100, L500.3400, L501.2450 ####[facility] [address] [place], [address] MCH (RBC) [Entitic mass] 21.5 pg Low 27.0-32.0 [facility] Comment on above: Performed By: #### L 500.2500, L100.0100, L500.3400, L501.2450 ####[facility] [address] [place], [address] MCHC (RBC) [Mass/Vol] 29.7 g/dL Low 32-36 [facility] Comment on above: Performed By: #### L 500.2500, L100.0100, L500.3400, L501.2450 ####[facility] [address] [place], [address] MCV (RBC) [Entitic vol] 72.4 fL Low 80-94 [facility] Comment on above: Performed By: #### L 500.2500, L100.0100, L500.3400, L501.2450 ####[facility] [address] [place], [address] Monocytes/100 WBC (Bld) 5.6 % Normal 0-10 [facility] Comment on above: Performed By: #### L 500.2500, L100.0100, L500.3400, L501.2450 ####[facility] [address] [place], [address] Neutrophils/100 WBC (Bld) 62.3 % Normal 47-70 [facility] Comment on above: Performed By: #### L 500.2500, L100.0100, L500.3400, L501.2450 ####[facility] [address] [place], [address] Nucleated RBC (Bld) [#/Vol] 0 10*3/uL Normal 0-5 [facility] Comment on above: Performed By: #### L 500.2500, L100.0100, L500.3400, L501.2450 ####[facility] [address] [place], [address] Platelet mean volume (Bld) [Entitic vol] 10.8 fL Normal 6.2-12.0 [facility] Comment on above: Performed By: #### L 500.2500, L100.0100, L500.3400, L501.2450 ####[facility] [address] [place], [address] Platelets (Bld) [#/Vol] 285 10*3/uL Normal 150-450 [facility] Comment on above: Performed By: #### L 500.2500, L100.0100, L500.3400, L501.2450 ####[facility] [address] [place], [address] RBC (Bld) [#/Vol] 5.11 10*6/uL Normal 4.6-6.2 [facility] Comment on above: Performed By: #### L 500.2500, L100.0100, L500.3400, L501.2450 ####[facility] [address] [place], [address] RDW SD 40.9 fl Normal 35.1-43.9 [facility] Comment on above: Performed By: #### L 500.2500, L100.0100, L500.3400, L501.2450 ####[facility] [address] [place], [address] WBC (Bld) [#/Vol] 8.9 10*3/uL Normal 4.4-11.0 [facility] Comment on above: Performed By: #### L 500.2500, L100.0100, L500.3400, L501.2450 ####[facility] [address] [place], [address] Emergency Department Summary on 06-13-2024 Emergency Department Summary [facility] Medical Records Department [address] [place] [address] Emergency Department Summary 06/13/24 MR#: [id number] Acct: [id number] Name: ITZEL ALONZO Rep #: [id number] : 1950 74 From: Juana Michaud MD PCP: [facility] Status:REG ER Location: ED HPI History of Present Illness Chief Complaint: Abd Pain Informant: patient Onset/Context/Timin g Onset: Weeks Narrative Narrative: Patient presents with a 2 to 3-week history of sharp abdominal pain. He points to a bandlike sensation around the mid abdomen and describing his area of pain. He denies nausea or vomiting. Eating does not seem to change the pain. He does report urinary urgency and does not feel that he empties his bladder completely. No fever or chills. He also complains of pain consistent with neuropathy to his hands and feet. [facility] Medical History Anxiety Hepatitis Smoker COPD (chronic obstructive pulmonary disease) Hypertension Diabetes Home Medications ???Medication ???Instructions ???Recorded ???Last Taken ???Type gabapentin 300 mg capsule 300 mg PO TID neuropathy 02/24/15 Unknown History glipizide 5 mg tablet 8 mg PO DAILY diabetes 02/24/15 Unknown History albuterol 2 puff NASAL Q4H PRN SOB 05/09/21 Unknown History amlodipine 5 mg tablet 5 mg PO QHS blood pressure 05/09/21 Unknown History aspirin 81 mg tablet,delayed 81 mg PO DAILY heart health 05/09/21 Unknown History release budesonide-formoter ol HFA 80 2 puff inhalation BID COPD 05/09/21 Unknown History mcg-4.5 mcg/actuation aerosol inhaler (Symbicort) cyclobenzaprine 10 mg tablet 10 mg PO TID PRN muscle spasms 05/09/21 Unknown History losartan 50 mg tablet 50 mg PO DAILY blood pressure 05/09/21 Unknown History mecobalamin (vitamin B12) 1,000 500 mcg PO DAILY supplement 05/09/21 Unknown History mcg chewable tablet metformin 1,000 mg tablet,extended 2,000 mg PO DAILY diabetes 05/09/21 Unknown History release 24hr (osmotic) sildenafil 100 mg tablet 100 mg PO DAILY PRN Erectile 05/09/21 Unknown History Dysfunction trazodone 50 mg tablet 25 mg PO QHS sleep 05/09/21 Unknown History vitamin E 200 unit tablet 200 unit PO DAILY supplement 05/09/21 Unknown History atorvastatin 80 mg tablet 80 mg PO QHS #90 tabs 05/12/21 Unknown Rx amlodipine 5 mg tablet 5 mg PO DAILY #30 tabs 06/13/24 Unknown Rx aspirin 81 mg capsule 81 mg PO DAILY #30 caps 06/13/24 Unknown Rx atorvastatin 80 mg tablet 80 mg PO DAILY #30 tabs 06/13/24 Unknown Rx budesonide-formoter ol HFA 80 2 puff inhalation BID #10.2 grams 06/13/24 Unknown Rx mcg-4.5 mcg/actuation aerosol inhaler (Symbicort) gabapentin 300 mg capsule 300 mg PO TID #90 caps 06/13/24 Unknown Rx glipizide 5 mg tablet 5 mg PO DAILY #30 tabs 06/13/24 Unknown Rx losartan 50 mg tablet 50 mg PO DAILY #30 tabs 06/13/24 Unknown Rx metformin 1,000 mg tablet 1,000 mg PO BID #60 tabs 06/13/24 Unknown Rx Allergy/AdvReac Type Severity Reaction Status Date / Time No Known Allergies Allergy Verified 06/03/24 14:56 Family History Mother CVA (cerebral vascular accident) Surgical History Hx of appendectomy Social History Smoking Status: Current some day smoker tobacco type: cigarettes ROS ROS ED Constitutional Constitutional ED: Denies chills or fever(s) Eyes Eyes: Denies discharge from eye(s) ENT ENT ED: Denies discharge from eye(s), rhinorrhea or sore throat Cardiovascular Cardiovascular: Denies chest pain Respiratory/Chest Respiratory/Chest: Denies cough or dyspnea Gastrointestinal Gastrointestinal: Reports abdominal pain; Denies diarrhea, nausea or vomiting Genitourinary Genitourinary ED: Reports other Details: Urinary urgency ; Denies dysuria Musculoskeletal Musculoskeletal: Reports extremity pain; Denies back pain Integumentary Denies Abrasions or rash Neurologic Neurologic: Denies headache(s) or weakness Psychiatric Psychiatric: Denies anxiety or depression Allergic/Immunologi c Allergic/Immunologi c ED: Denies lip swelling or urticaria EXAM Physical Exam Const Vital Signs: 06/13/24 17:24 06/13/24 19:23 06/13/24 21:00 Temperature 97.6 F L Temperature Source Temporal Pulse Rate 89 77 73 Respiratory Rate 16 14 18 Blood Pressure 166/95 H 166/84 H 143/87 H Blood Pressure Mean 118 111 105 Pulse Ox 98 97 97 Oxygen Delivery Method Room Air Room Air Room Air Positive well nourished and well developed General Appearance ED: well developed HEENT Reports moist mucous membranes Eyes EOMs intact bilaterally Chest Wall ins (more content not included)... Normal [facility] Lipaseon 06-13-2024 Lipase [Catalytic activity/Vol] 41 U/L Normal 13-75 [facility] Comment on above: Result Comment: Nesha davison note: LIPASE revised reference range effective 23. New Lipase methodology. Expected to produce lower values than the previous assay method. NEW Reference Range: 13 - 75 U/L Performed By: #### L 499.0042 #### [facility] [address] [place], [address] Liver Profileon 06-13-2024 Albumin [Mass/Vol] 3.2 g/dL Normal 3.2-5.0 [facility] Comment on above: Performed By: #### L 499.0042 #### [facility] [address] [place], [address] ALK P 131 U/L High 45-117 [facility] Comment on above: Performed By: #### L 499.0042 #### [facility] [address] [place], [address] ALT [Catalytic activity/Vol] 14 U/L Low 16-61 [facility] Comment on above: Performed By: #### L 499.0042 #### [facility] [address] [place], [address] AST [Catalytic activity/Vol] 16 U/L Normal 15-37 [facility] Comment on above: Result Comment: Slig ht Hemolysis, Result may be falsely increased. Performed By: #### L 499.0042 #### [facility] [address] [place], [address] Bilirubin [Mass/Vol] 0.20 mg/dL Normal 0.20-1.00 [facility] Comment on above: Result Comment: For patients on eltrombopag therapy, use of Dimension [place] TBIL is not recommended. Performed By: #### L 499.0042 #### [facility] [address] [place], [address] Bilirubin.direct [Mass/Vol] 0.06 mg/dL Normal 0.00-0.30 [facility] Comment on above: Performed By: #### L 499.0042 #### [facility] [address] [place], [address] Globulin (S) [Mass/Vol] 4.3 g/dL High 2.2-4.2 [facility] Comment on above: Performed By: #### L 499.0042 #### [facility] [address] [place], [address] T PROT 7.5 g/dL Normal 6.4-8.2 [facility] Comment on above: Performed By: #### L 499.0042 #### [facility] [address] [place], [address] Urinalysis, Completeon 06-13 BACTERIA 0 SEEN Normal None Seen [facility] Comment on above: Order Comment: ADRIÁN RAMIREZ TO SPECIFY Performed By: #### L 400.0001 #### [facility] [address] [place], [address] EPI,SQUAMOUS 0 SEEN Normal 0-5 [facility] Comment on above: Order Comment: ADRIÁN LEARYOR TO SPECIFY Performed By: #### L 400.0001 #### [facility] [address] [place], [address] Mucus Ql (Urine sed) 0 SEEN Normal [facility] Comment on above: Order Comment: COLLE CTOR TO SPECIFY Performed By: #### L 400.0001 #### [facility] [address] [place], [address] RBC 0 SEEN Normal 0-5 [facility] Comment on above: Order Comment: COLLE CTOR TO SPECIFY Performed By: #### L 400.0001 #### [facility] [address] [place], [address] WBC 0 SEEN Normal 0-5 [facility] Comment on above: Order Comment: ADRIÁN CTOR TO SPECIFY Performed By: #### L 400.0001 #### [facility] [address] [place], [address] Abdomen/Pelvis W IV Cont ONL Yon 06-03-2024 Abdomen/Pelvis W IV Cont ONLY [facility] [address] [place] [address] Abdomen/Pelvis W IV Cont ONLY MR#: [id number] Acct: [id number] Name: ITZEL ALONZO Rep #: [id number] : 1950 M 73 From: George Barahona MD PCP: [facility] Status: REG ER Study: Abdomen/Pelvis W IV Cont ONLY Date of Exam: Exam# [id number] Ordering Dr: César Short DO -[id number] STUDY: CT ABDOMEN AND PELVIS WITH CONTRAST REASON FOR EXAM: Male, 73 years old. abdominal pain RADIATION DOSAGE (If Supplied By Facility): CTDIvol = ( 10.00 ) mGy, DLP = ( 837.12 ) mGycm TECHNIQUE: Transaxial images were obtained from the dome of the diaphragm to the symphysis pubis without oral contrast. IV 100mL Isovue-370 was administered. Sagittal and coronal images were reconstructed. Individualized dose optimization techniques were used for this CT. COMPARISON: May 05, 2010 FINDINGS: The visualized lung bases are unremarkable. The visualized portions of the heart are within normal limits. Normal liver. Normal gallbladder and extrahepatic biliary system. Normal spleen. Normal pancreas. Normal bilateral adrenal glands. Normal right kidney. Normal left kidney. Mild thickening of the cervantes of the distal stomach and duodenum as well as mild thickening of folds of the proximal jejunum possibly representing mild gastroenteritis. . Normal colon. No evidence for acute appendicitis Minor atherosclerotic changes of the aorta without evidence for aneurysm. Normal inferior vena cava. Normal retroperitoneum. Incompletely distended thick walled bladder likely of no significance. Small fat-containing umbilical hernia.. Normal osseous structures. CT/Abdomen/Pelvis W IV Cont ONLY IMPRESSION: Findings which may be consistent with nonspecific gastroenteritis.. No evidence for small bowel obstruction or other acute abnormal abnormality. Electronically Signed: George Barahona MD at 18:54 EDT , CC: Dr. César Short, DO; [facility] Engineer Chief: Signed Normal [facility] CBC W/Diff, Automatedon 05-25 Absolute Lymph 2.75 X10 3/uL Normal 0.83-4.51 [facility] Comment on above: Performed By: #### L 100.0100, L500.4050 ####[facility] [address] [place], [address] Absolute Neut 4.7 X10 3/uL Normal 2.0-7.7 [facility] Comment on above: Performed By: #### L 100.0100, L500.4050 ####[facility] [address] [place], [address] Basophils/100 WBC (Bld) 0.4 % Normal 0-1 [facility] Comment on above: Performed By: #### L 100.0100, L500.4050 ####[facility] [address] [place], [address] Eosinophils/100 WBC (Bld) 3.0 % Normal 0-5 [facility] Comment on above: Performed By: #### L 100.0100, L500.4050 ####[facility] [address] [place], [address] Erythrocyte distribution width (RBC) [Ratio] 16.5 % High 11.6-14.6 [facility] Comment on above: Performed By: #### L 100.0100, L500.4050 ####[facility] [address] [place], [address] Hematocrit (Bld) [Volume fraction] 37.5 % Low 40-54 [facility] Comment on above: Performed By: #### L 100.0100, L500.4050 ####[facility] [address] [place], [address] Hemoglobin (Bld) [Mass/Vol] 11.3 g/dL Low 13.0-16.5 [facility] Comment on above: Performed By: #### L 100.0100, L500.4050 ####[facility] [address] [place], [address] IG% 0.400 Normal 0.0-0.9 [facility] Comment on above: Result Comment: IG% - Immature Granulocytes (promyelocytes, myelocytes and metamyelocytes) > 1% indicates that a LEFT SHIFT is Present. Performed By: #### L 100.0100, L500.4050 ####[facility] [address] [place], [address] Lymphocytes/100 WBC (Bld) 33.1 % Normal 19-41 [facility] Comment on above: Performed By: #### L 100.0100, L500.4050 ####[facility] [address] [place], [address] MCH (RBC) [Entitic mass] 21.5 pg Low 27.0-32.0 [facility] Comment on above: Performed By: #### L 100.0100, L500.4050 ####[facility] [address] [place], [address] MCHC (RBC) [Mass/Vol] 30.1 g/dL Low 32-36 [facility] Comment on above: Performed By: #### L 100.0100, L500.4050 ####[facility] [address] [place], [address] MCV (RBC) [Entitic vol] 71.3 fL Low 80-94 [facility] Comment on above: Performed By: #### L 100.0100, L500.4050 ####[facility] [address] [place], [address] Monocytes/100 WBC (Bld) 6.0 % Normal 0-10 [facility] Comment on above: Performed By: #### L 100.0100, L500.4050 ####[facility] [address] [place], [address] Neutrophils/100 WBC (Bld) 57.1 % Normal 47-70 [facility] Comment on above: Performed By: #### L 100.0100, L500.4050 ####[facility] [address] [place], [address] Nucleated RBC (Bld) [#/Vol] 0 10*3/uL Normal 0-5 [facility] Comment on above: Performed By: #### L 100.0100, L500.4050 ####[facility] [address] [place], [address] Platelet mean volume (Bld) [Entitic vol] 10.8 fL Normal 6.2-12.0 [facility] Comment on above: Performed By: #### L 100.0100, L500.4050 ####[facility] [address] [place], [address] Platelets (Bld) [#/Vol] 269 10*3/uL Normal 150-450 [facility] Comment on above: Performed By: #### L 100.0100, L500.4050 ####[facility] [address] [place], [address] RBC (Bld) [#/Vol] 5.26 10*6/uL Normal 4.6-6.2 [facility] Comment on above: Performed By: #### L 100.0100, L500.4050 ####[facility] [address] [place], [address] RDW SD 40.8 fl Normal 35.1-43.9 [facility] Comment on above: Performed By: #### L 100.0100, L500.4050 ####[facility] [address] [place], [address] WBC (Bld) [#/Vol] 8.3 10*3/uL Normal 4.4-11.0 [facility] Comment on above: Performed By: #### L 100.0100, L500.4050 ####[facility] [address] [place], [address] Comprehensive Metabolic Prof ilon 06-03-2024 Albumin [Mass/Vol] 3.4 g/dL Normal 3.2-5.0 [facility] Comment on above: Performed By: #### L 100.0100, L500.4050 ####[facility] [address] [place], [address] Albumin/Globulin [Mass ratio] 0.8 {ratio} Low 0.9-2.4 [facility] Comment on above: Performed By: #### L 100.0100, L500.4050 ####[facility] [address] [place], [address] ALK P 135 U/L High 45-117 [facility] Comment on above: Performed By: #### L 100.0100, L500.4050 ####[facility] [address] [place], [address] ALT [Catalytic activity/Vol] 16 U/L Normal 16-61 [facility] Comment on above: Performed By: #### L 100.0100, L500.4050 ####[facility] [address] [place], [address] AST [Catalytic activity/Vol] 19 U/L Normal 15-37 [facility] Comment on above: Performed By: #### L 100.0100, L500.4050 ####[facility] [address] [place], [address] Bilirubin [Mass/Vol] 0.20 mg/dL Normal 0.20-1.00 [facility] Comment on above: Result Comment: For patients on eltrombopag therapy, use of Dimension [place] TBIL is not recommended. Performed By: #### L 100.0100, L500.4050 ####[facility] [address] [place], [address] BUN/CRE 19.4 RATIO Normal 10-20 [facility] Comment on above: Performed By: #### L 100.0100, L500.4050 ####[facility] [address] [place], [address] CA,Total 10.0 mg/dL Normal 8.5-10.1 [facility] Comment on above: Performed By: #### L 100.0100, L500.4050 ####[facility] [address] [place], [address] Chloride [Moles/Vol] 102 mmol/L Normal 98-107 [facility] Comment on above: Performed By: #### L 100.0100, L500.4050 ####[facility] [address] [place], [address] CO2 [Moles/Vol] 27.0 mmol/L Normal 21.0-32.0 [facility] Comment on above: Performed By: #### L 100.0100, L500.4050 ####[facility] [address] [place], [address] Creatinine [Mass/Vol] 1.24 mg/dL Normal 0.70-1.30 [facility] Comment on above: Result Comment: The validity of the calculated GFR GFRAA in patients over 70 years has not been determined. Clinical correlation is essential. Performed By: #### L 100.0100, L500.4050 ####[facility] [address] [place], [address] EST GFR - AA 73 mL/min Normal >60 [facility] Comment on above: Result Comment: Afri can [place]ian GFR Calc Performed By: #### L 100.0100, L500.4050 ####[facility] [address] [place], [address] GAP 5 Normal 5-15 [facility] Comment on above: Performed By: #### L 100.0100, L500.4050 ####[facility] [address] [place], [address] GFR/1.73 sq M.predicted among non-blacks MDRD (S/P/Bld) [Vol rate/Area] 60 mL/min/{1.73_m2} Normal >60 [facility] Comment on above: Result Comment: Non- GFR Calc Performed By: #### L 100.0100, L500.4050 ####[facility] [address] [place], [address] Globulin (S) [Mass/Vol] 4.5 g/dL High 2.2-4.2 [facility] Comment on above: Performed By: #### L 100.0100, L500.4050 ####[facility] [address] [place], [address] Glucose [Mass/Vol] 367 mg/dL High 74-106 [facility] Comment on above: Result Comment: Gluc ose result greater than or equal to 200 mg/dL suggests DIABETES MELLITUS per A.D.A. criteria. Performed By: #### L 100.0100, L500.4050 ####[facility] [address] [place], [address] Potassium [Moles/Vol] 4.7 mmol/L Normal 3.5-5.1 [facility] Comment on above: Performed By: #### L 100.0100, L500.4050 ####[facility] [address] [place], [address] Sodium [Moles/Vol] 134 mmol/L Low 136-145 [facility] Comment on above: Performed By: #### L 100.0100, L500.4050 ####[facility] [address] [place], [address] T PROT 7.9 g/dL Normal 6.4-8.2 [facility] Comment on above: Performed By: #### L 100.0100, L500.4050 ####[facility] [address] [place], [address] Urea nitrogen [Mass/Vol] 24 mg/dL High 7-18 [facility] Comment on above: Performed By: #### L 100.0100, L500.4050 ####[facility] [address] [place], [address] Emergency Department Summary on 06-03-2024 Emergency Department Summary [facility] Medical Records Department [address] [place] [address] Emergency Department Summary 06/03/24 MR#: [id number] Acct: [id number] Name: ITZEL ALONZO Rep #: [id number] : 1950 73 From: César Short DO PCP: [place] Hospital Status:DEP ER Location: ED HPI History of Present Illness Chief Complaint: Abd Pain Informant: patient Narrative Narrative: 73-year-old male presenting to the emergency room with abdominal pain. Patient states for 3 weeks he has had a dull ache in his abdomen particularly periumbilical to the right lower quadrant sometimes on the left. He states now he is feeling sharp stabbing pains mostly right lower quadrant into the flank. He states he has not had much of an appetite but today he is very hungry would like to eat the English food he brought with him. He has had prior appendectomy and kidney stone. He states he recently returned back to [place] after spending about half a year in [place] visiting his family. He has a history of known diabetes and hypertension. He has no local primary care but was seen in the [place] in [place]. His surgeries were at [facility]. Patient denies any abdominal bloating no changes in bowel or bladder habits. No reported fevers. [facility] Medical History Anxiety Hepatitis Smoker COPD (chronic obstructive pulmonary disease) Hypertension Diabetes Home Medications ???Medication ???Instructions ???Recorded ???Last Taken ???Type gabapentin 300 mg capsule 300 mg PO TID neuropathy 02/24/15 Unknown History glipizide 5 mg tablet 8 mg PO DAILY diabetes 02/24/15 Unknown History albuterol 2 puff NASAL Q4H PRN SOB 05/09/21 Unknown History amlodipine 5 mg tablet 5 mg PO QHS blood pressure 05/09/21 Unknown History aspirin 81 mg tablet,delayed 81 mg PO DAILY heart health 05/09/21 Unknown History release budesonide-formoter ol HFA 80 2 puff inhalation BID COPD 05/09/21 Unknown History mcg-4.5 mcg/actuation aerosol inhaler (Symbicort) cyclobenzaprine 10 mg tablet 10 mg PO TID PRN muscle spasms 05/09/21 Unknown History losartan 50 mg tablet 50 mg PO DAILY blood pressure 05/09/21 Unknown History mecobalamin (vitamin B12) 1,000 500 mcg PO DAILY supplement 05/09/21 Unknown History mcg chewable tablet metformin 1,000 mg tablet,extended 2,000 mg PO DAILY diabetes 05/09/21 Unknown History release 24hr (osmotic) sildenafil 100 mg tablet 100 mg PO DAILY PRN Erectile 05/09/21 Unknown History Dysfunction trazodone 50 mg tablet 25 mg PO QHS sleep 05/09/21 Unknown History vitamin E 200 unit tablet 200 unit PO DAILY supplement 05/09/21 Unknown History atorvastatin 80 mg tablet 80 mg PO QHS #90 tabs 05/12/21 Unknown Rx Allergy/AdvReac Type Severity Reaction Status Date / Time No Known Allergies Allergy Verified 06/03/24 14:56 Family History Mother CVA (cerebral vascular accident) Surgical History Hx of appendectomy Social History Smoking Status: Former smoker ROS ROS ED Constitutional Constitutional ED: Denies chills, fever(s) or weight loss Eyes Eyes: Denies change in vision or diplopia ENT ENT ED: Denies ear pain, rhinorrhea or sore throat Cardiovascular Cardiovascular: Denies chest pain, orthopnea, palpitations or racing heartbeat Respiratory/Chest Respiratory/Chest: Denies cough, dyspnea or orthopnea Gastrointestinal Gastrointestinal: Reports abdominal pain; Denies constipation, diarrhea, nausea or vomiting Genitourinary Genitourinary ED: Denies dysuria, hematuria or urinary frequency Musculoskeletal Musculoskeletal: Denies arthralgias or myalgias Integumentary Denies abscess or rash Neurologic Neurologic: Denies headache(s) or weakness Psychiatric Psychiatric: Denies anxiety, depression, suicidal ideation or suicidal thoughts Endocrine Endocrinology: Denies polydipsia, polyphagia or polyuria Allergic/Immunologi c Allergic/Immunologi c ED: Denies mouth swelling, tongue swelling or urticaria EXAM Physical Exam Const Vital Signs: 06/03/24 14:54 06/03/24 16:58 06/03/24 20:00 Temperature 96.9 F L 98.2 F Temperature Source Temporal Temporal Pulse Rate 77 81 81 Respiratory Rate 18 18 16 Blood Pressure 157/79 H 146/85 H 161/95 H Blood Pressure Mean 105 105 117 Pulse Ox 98 98 98 Oxygen Delivery Method Room Air Room Air Room Air 06/03/24 20:14 Temperature 98 F Temperature Source Pulse Rate 83 Respiratory Rate 18 Blood Pressure 160/83 H Blood Pressure Mean 108 Pulse Ox 99 Oxygen Delivery Method Positive well nourished and well developed General Kishore (more content not included)... Normal [facility] Urinalysis, Completeon 06-03 BACTERIA RARE Normal None Seen [facility] Comment on above: Order Comment: CLEAN CATCH Performed By: #### L 400.0001 ####[facility] [address] [place], [address] EPI,SQUAMOUS 0 SEEN Normal [address] [place] [address] Comment on above: Order Comment: CLEAN CATCH Performed By: #### L 400.0001 ####[facility] [address] [place], [address] Mucus Ql (Urine sed) 0 SEEN Normal [place] Comment on above: Order Comment: CLEAN CATCH Performed By: #### L 400.0001 ####[facility] [address] [place], [address] RBC 0 SEEN Normal [address] [place] [address] Comment on above: Order Comment: CLEAN CATCH Performed By: #### L 400.0001 ####[facility] [address] [place], [address] WBC 0 SEEN Normal [address] Comment on above: Order Comment: CLEAN CATCH Performed By: #### L 400.0001 ####[facility] [address] [place], [address] Vital Signs Date Time Vital Sign Value Performing Clinician Faci lity 05-11-2025 19:29-0400 Body temperature 98.6 [degF] Dr. Steven Tejeda DO Work Phone: 5(795)030-839874 [place] [address] 05-11-2025 19:29-0400 Diastolic blood pressure 85 mm[Hg] Dr. Steven Tejeda DO Work Phone: 0(837)523-450174 [place] [address] 05-11-2025 19:29-0400 Heart rate 99 /min Dr. Steven Tejeda DO Work Phone: 5(786)662-817574 [place] [address] 05-11-2025 19:29-0400 Respiratory rate 24 /min Dr. Steven Tejeda DO Work Phone: 2(260)140-595674 [place] [address] 05-11-2025 19:29-0400 SaO2% (BldA) [Mass fraction] 95 % Dr. Steven Tejeda DO Work Phone: 0(514)765-816974 [place] [address] 05-11-2025 19:29-0400 Systolic blood pressure 154 mm[Hg] Dr. Steven Tejeda DO Work Phone: 3(157)048-836274 [place] [address] 05-11-2025 14:09-0400 Body mass index (BMI) [Ratio] 19.2 kg/m2 Dr. Steven Tejeda DO Work Phone: 9(664)243-001974 [place] [address] 05-11-2025 14:09-0400 Body weight 66.[address] Steven Tejeda DO Work Phone: 4(762)222-675074 [place] [address] 05-11-2025 14:05-0400 Body height 185.[address] Steven Tejeda DO Work Phone: 0(265)779-940974 [place] [address] 05-04-2025 14:54-0400 Body temperature 98.3 [degF] Dr. Steven Tejeda DO Work Phone: 3(899)046-651074 [place] [address] 05-04-2025 14:54-0400 Diastolic blood pressure 88 mm[Hg] Dr. Steven Tejeda DO Work Phone: 3(792)982-030674 [place] [address] 05-04-2025 14:54-0400 Heart rate 91 /min Dr. Steven Tejeda DO Work Phone: 5(665)356-154174 [place] [address] 05-04-2025 14:54-0400 Respiratory rate 16 /min Dr. Steven Tejeda DO Work Phone: 7(457)526-039874 [place] [address] 05-04-2025 14:54-0400 SaO2% (BldA) [Mass fraction] 98 % Dr. Steven Tejeda DO Work Phone: [facility] 05-04-2025 14:54-0400 Systolic blood pressure 146 mm[Hg] Dr. Steven Tejeda DO Work Phone: 2(211)146-667574 [place] [address] 05-04-2025 11:22-0400 Inhaled oxygen flow rate 97 L/min Dr. Steven Tejeda DO Work Phone: 8(413)655-514815 [place] [address] 05-04-2025 11:13-0400 Body height 185.[address] Steven Tejeda DO Work Phone: 7(691)430-783015 [place] [address] 05-04-2025 11:13-0400 Body mass index (BMI) [Ratio] 18.8 kg/m2 Dr. Steven Tejeda DO Work Phone: 8(738)556-199774 [place] [address] 05-04-2025 11:13-0400 Body weight 64.[address] Steven Tejeda DO Work Phone: 1(729)630-675815 [place] [address] 04-24-2025 00:37-0400 Body temperature 98.2 [degF] Dr. Steven Tejeda DO Work Phone: 9(813)263-446474 [place] [address] 04-24-2025 00:37-0400 Diastolic blood pressure 81 mm[Hg] Dr. Steven Tejeda DO Work Phone: 5(840)270-291874 [place] [address] 04-24-2025 00:37-0400 Heart rate 83 /min Dr. Steven Tejeda DO Work Phone: 5(390)303-970074 [place] [address] 04-24-2025 00:37-0400 Respiratory rate 25 /min Dr. Steven Tejeda DO Work Phone: 9(097)291-997674 [place] [address] 04-24-2025 00:37-0400 SaO2% (BldA) [Mass fraction] 99 % Dr. Steven Tejeda DO Work Phone: 8(046)297-374474 [place] [address] 04-24-2025 00:37-0400 Systolic blood pressure 149 mm[Hg] Dr. Steven Tejeda DO Work Phone: [facility] 04-23-2025 21:27-0400 Body mass index (BMI) [Ratio] 20.8 kg/m2 Dr. Steven Tejeda DO Work Phone: [facility] 04-23-2025 21:07-0400 Body height 185.[address] Steven Tejeda DO Work Phone: [facility] 04-23-2025 21:07-0400 Body weight 71.[address] Steven Tejeda DO Work Phone: [facility] Encounters Encounter Date Encounter Type Care Provider Facility Start: 05-11-2025 Evaluation and management of inpatient Dr. Lane Stanley DO -Progressive Care Unit Work Phone: Start: 05-04-2025 End: 05-04-2025 Emergency department patient visit Dr. Steven Tejeda DO Work Phone: -Emergency Department Work Phone: Start: 04-23-2025 End: 04-24-2025 Emergency department patient visit Dr. Steven Tejeda DO Work Phone: -Emergency Department Work Phone: Start: 12-12-2024 End: 12-12-2024 Emergency department patient visit [facility] Facility:[facility] Start: 06-13-2024 End: 06-13-2024 Emergency department patient visit [facility] Facility:[facility] Start: 06-03-2024 End: 06-03-2024 Emergency department patient visit [facility] Facility:[facility] Procedures Date Procedure Procedure Detail Performing Clinician Start: 05-11-2025 X-ray of chest, PA a nd lateral views Dr. Steven Tejeda DO Work Phone: Start: 05-11-[address] Steven Tejeda DO Work Phone: Start: 05-11-2025 Measurement of occul t blood in stool specimen using immunoassay Dr. Steven Tejeda DO Work Phone: Start: 05-04-2025 CT cervical spine wi thout contrast Dr. Steven Tejeda DO Work Phone: Start: 05-04-2025 CT of chest without contrast Dr. Steven Tejeda DO Work Phone: Start: 05-04-2025 CT of head without contrast Dr. Steven Tejeda DO Work Phone: Start: 05-04-2025 Plain X-ray of shoulder Dr. Steven Tejeda DO Work Phone: Start: 05-04-[address] Steven Tejeda DO Work Phone: Start: 04-23-2025 Plain chest X-ray Dr. Suzanna Tejeda DO Work Phone: Start: 04-23-2025 CT angiography of he ad and neck Dr. Steven Tejeda DO Work Phone: Start: 04-23-2025 CT of head without contrast Dr. Steven Tejeda DO Work Phone: Start: 04-23-[address] Steven Tejeda DO Work Phone: Plan of Treatment Date Care Activity Detail Author Start: 05-11-2025 Verification routine [facility] Start: 05-11-2025 Admission procedure [facility] Start: 05-11-2025 Hospital admission, emergency, from emergency room, medical nature [facility] Start: 05-11-2025 End: 05-11-2025 [facility] Start: 05-04-2025 [facility] Start: 04-24-2025 [facility] Start: 04-23-2025 Oxygen therapy [facility] Start: 04-23-2025 [facility] Patient Education [facility] Work Phone: Patient referral [facility] Work Phone: Troponin T.cardiac [ Mass/volume] in Serum or Plasma by High sensitivity method [facility] Payers Date Payer Category Payer Self-pay [id number] 2024 Self-pay Self-pay [employer]URANCE [id number] Unknown [id number] [id number] Unknown [id number] [id number] [id number] Unknown [id number] 2.16.8 [id number] Unknown [id number] 2.16.8 [id number] Unknown [id number] 2.16.8 [id number] Social History Date Type Detail Facility Start: 04-23-2025 End: 05-11-2025 Tobacco smoking status NHIS Current some day smoker [facility] Start: 04-23-2025 Tobacco Use Tobacco Use [facility] Start: 1950 Sex Assigned At Male [facility] Mental Status Date Assessment Result Facility 05-11-2025 Cognitive function Voice/Name [facility] Work Phone: 04-23-2025 Cognitive function Voice/Name [facility] Work Phone: Clinical Notes 04-23-2025 to 05-11-2025 Note Date & Type Note Facility 05-11-2025 Discharge summary [facility] 05-11-2025 Radiology Diagnostic study note [facility] [address] [place], [place] [address] Chest PA and Lateral MR#: [id number] Acct: [id number] Name: ITZEL ALONZO Rep #: [id number] : 1950 M 74 From: Pet er Peer DO PCP: SID Haro Status: REG ER Study:Chest PA and Lateral Date of Exam: 05/11/25 Exam# [id number] Ordering Dr: Karin Clarke MD PROCEDURE: CHEST PA AND LATERAL 05/11/2025 REASON FOR EXAM: COUGH, EGOPHONY RIGHT Weakness and dizziness. Multiple recent falls. History of lung cancer. TECHNIQUE: CHEST PA AND LATERAL COMPARISON: Chest radiograph April 23, 2020 FINDINGS: Hardware: None. Heart: Normal size Mediastinum: Abnormal mediastinal contours with prominent suprahilar left density, potentially enlarged lymph node. Lungs: Upper lobe suprahilar right lung mass appears worse today likely representing a postobstruction pneumonia Bones: No aggressive bone lesions are appreciated. RAD/Chest PA and Lateral IMPRESSION: In <3 weeks since the prior radiograph there has developed greater opacity in the suprahilar right lung mass suggesting acute postobstruction pneumonia with residual large suprahilar tumor. 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 Reading [facility] CC: MEASUREMENT DEPARTMENT CHIEF CLERK-C Carlene Haji; Dr. Monty Clarke MD ~ Engineer Chief: Signed [facility] 05-11-2025 Discharge summary Note Date/Time May 11, 2025 6:41pm [facility] Medical Records Department [address] [place] [address] Emergency Department Summary 05/11/25 MR#: [id number] Acct: [id number] Name: ITZEL ALONZO Rep #:[id number] : 1950 74 From: Monty Clarke MD PCP: SID Haro Status:REG ER Location: ED HPI History of Present Illness Chief Complaint: Fall Detail of Chief Complaint: Patient presents because of multiple falls per triage. Patient states he f Informant: patient Onset/Context/Timing Onset: Weeks Context: Gradual Onset Timing: Continuous Quality: Generalized weakness and fatigued Location: Not applicable Current Severity: Mild Maximum Severity: Moderate Worsened by: Activity Relieved by: Nothing Associated Symptoms Associated Symptoms: Generalized weakness, weight loss, no energy Narrative Narrative: Patient is a 74-year-old male. He has history of lung cancer. 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 He endorses fatigue, generalized weakness. He has poor appetite. He does admit to change in urination. States he was seenapproximately 3 weeks ago due to a fall. After reviewing records he was seen onthe 10th of this month for fall. He was seen by Dr. Quiros. He had a workup that was unremarkable. Of note patient is disoriented to time. He is slow to respond. He initially answer yes to some question then corrected himself. He presently denies headache. He presently reports neck pain that has had since the fall. He believes he has pneumonia because he has cough and shortness of breath with activity. He does have a history of lung cancer as previously noted. He initially endorsed nausea, vomiting diarrhea and then stated he has not had nausea vomiting or diarrhea. I believe his had increased urine output. He presently denies headache, visual, ocular auditory symptoms. Prior similar symptoms: No Recent Illness/Hospitalization: Yes [facility] Medical History (Updated 05/11/25 @ 18:[address] Monty Clarke MD) Depression GERD (gastroesophageal reflux disease) Cirrhosis Former smoker TIA (transient ischemic attack) Kidney stones Neuropathy PTSD (post-traumatic stress disorder) Anxiety Hepatitis Smoker COPD (chronic obstructive pulmonary disease) Hypertension Diabetes Home Medications ?Medication ?Instructions ?Recorded ?Last Taken ?Type gabapentin 300 mg capsule 300 mg PO TID neuropathy 01/09 Unknown History amlodipine 5 mg tablet 5 mg PO QHS blood pressure 0 05/09/21 Unknown History aspirin 81 mg tablet,delayed 81 mg PO DAILY heart heal th 05/09/21 Unknown History release budesonide-formoterol HFA 80 2 puff inhalation BID POLICE MAGISTRATE D 05/09/21 Unknown History mcg-4.5 mcg/actuation aerosol inhaler (Symbicort) cyclobenzaprine 10 mg tablet 10 mg PO TID PRN muscle s pasms 05/09/21 Unknown History losartan 50 mg tablet 50 mg PO DAILY blood pressur e 05/09/21 Unknown History Held on 05/04/25. Instructions: PT STATES HASN'T BEEN TAKING sildenafil 100 mg tablet 100 mg PO DAILY PRN Erectile 05/09/21 Unknown History Dysfunction atorvastatin 80 mg tablet 80 mg PO QHS #90 tabs Unknown Rx insulin aspart U-100 100 unit/mL 10 unit subcut TIDCM 12/12/24 Unknown History (3 mL) subcutaneous pen (Novolog FlexPen U-100 Insulin aspart) diazepam 2 mg tablet (Valium) 2 mg PO TID PRN vertigo/ dizziness 04/24/25 05/04/25 Rx 5 days #15 tabs ibuprofen 800 mg tablet (IBU) 800 mg PO Q8H 05/04/25 0 05/03/25 History insulin glargine 100 unit/mL (3 10 unit subcut QPM 09/18 Unknown History mL) subcutaneous pen (Lantus Solostar U-100 Insulin) magnesium hydroxide 400 mg/5 mL 5 ml PO DAILY PRN cons tipation 05/04/25 05/03/25 History oral suspension (Gentle Laxative (magnesium hydroxide)) ropinirole 1 mg tablet 1 mg PO DAILY 05/04/25 Unkno wn History tramadol 50 mg tablet 50 mg PO Q6H PRN pain #12 ta bs 05/04/25 Unknown Rx Allergy/AdvReac Type Severity Reaction Status Date / Time No Known Allergies Allergy Verified 05/11/25 14:05 Family History Mother CVA (cerebral vascular accident) Surgical History Hx of appendectomy Social History household members: none housing: apartment Smoking Status: Current some day smoker tobacco type: cigarettes and cigars ROS ROS ED Constitutional Constitutional ED: Reports chills, fever(s), subjective and weight loss; Denies sweats Eyes Eyes: Denies blurry vision or change in vision ENT ENT ED: Denies ear pain, rhinorrhea or sore throat Cardiovascular Cardiovascular: Reports chest pain; Denies orthopnea, palpitations, paroxysmal nocturnal dyspnea or racing heartbeat Respiratory/Chest Respiratory/Chest: Reports cough, dyspnea and dyspnea on exertion; Denies orthopnea, paroxysmal nocturnal dyspnea or sputum Gastrointestinal Gastrointestinal: Denies abdominal pain, diarrhea, nausea or vomiting Genitourinary Genitourinary ED: Denies dysuria or hematuria Musculoskeletal Musculoskeletal: Reports neck pain; Denies arthralgias, back pain or myalgias Integumentary Denies rash Neurologic Neurologic: Reports weakness; Denies headache(s) or paresthesias Psychiatric Psychiatric: Denies anxiety Hematologic/Lymphatic Hematologic/Lymphatic: Reports systems reviewed and no addt'l complaints, exceptas documented EXAM Physical Exam Const Vital Signs: 05/11/25 14:05 05/11/25 14:30 05/11/25 16:30 Temperature 98.6 F Temperature Source Oral Pulse Rate 105 H Respiratory Rate 20 H Respiratory Effort Normal Respiratory Depth Normal Respiratory Pattern Normal Blood Pressure 141/75 H 167/92 H Blood Pressure Mean 97 117 Pulse Ox 99 Oxygen Delivery Method Room Air Room Air 05/11/25 18:00 Temperature Temperature Source Pulse Rate 99 Respiratory Rate 24 H Respiratory Effort Respiratory Depth Respiratory Pattern Blood Pressure 154/85 H Blood Pressure Mean 108 Pulse Ox 95 Oxygen Delivery Method Room Air Positive well developed Constitutional Narrative: Patient is very thin. General Appearance ED: well developed; Negative for pallor HEENT Reports dry mucous membranes HEENT Narrative: Head is atraumatic normocephalic. Ears normal. Nares patent. External auditory canal normal. TMs are normal. Posterior pharynx is unremarkable. Uvula is midline. No deviation tongue or protrusion. Mouth ED: Yes dry mucous membranes Mouth: dry mucous membranes Eyes PERRL and EOMs intact bilaterally General Eye ED: Negative for pale conjunctiva or scleral icterus Neck no lymphadenopathy, supple and no JVD Neck Narrative: Trachea is midline. There is no midline posterior neck pain. Chest Wall inspection of chest normal and palpation of chest normal Resp normal respiratory effort and No clear to auscultation bilaterally Resp Narrative: Decreased breath sounds lower third of the right lung field. There is egophony. There is also abnormal breath sounds noted anteriorly over the right middle lobe. Breath sounds noted on the left. There is question of rales at the left base. Cardio regular rhythm, S1 normal heart sound, S2 normal heart sound and no murmurs Rate: tachycardic GI normal to inspection, nondistended, normoactive bowel sounds, non-tender, non-distended and no masses; Negative for hepatosplenomegaly Back/Spine no CVA tenderness Neuro No oriented x3, CN's II-XII intact bilaterally and no sensory deficits noted Neuro Narrative: He is disoriented to time. He did not know the day of the week, month or year. Sensorium / Orientation: Negative for alert Motor Exam: strength 5/5 throughout Psych mental status grossly normal Skin no rashes or lesions noted, no wounds and skin turgor normal General Skin Exam: Negative for jaundice or pallor MDM MDM MDM Narrative Medical decision making narrative: Patient with generalized weakness urinary symptoms which may be due to hyperglycemia, pneumonia, worsening of his lung cancer. His falls may be related to autonomic dysfunction due to his diabetes. He does have diabetic neuropathy suspect he has poorly controlled diabetes. Will obtain a metabolic infectious workup at this point. Will compare to prior labs. History & Record Review Additional record(s) reviewed:: Prior inpatient record (Patient's last admissionwas April [address] Plummer's discharge note was reviewed.) and Prior ED visit (10th of this month by Dr. Quiros for closed head injury due to fall.) Lab Data Attestation: I reviewed the patient's lab results. Lab results narrative: White count is slightly elevated 11.6 with an H&H of 8 0.7 and 20.9 with an MCV of 66.4. H&H on May 04 was 9.8 and 32.4 with an MCV of 65.9. Labs: Laboratory Results - last 24 hr 05/11/25 05/11/25 15:20 17:16 WBC 11.6 H RBC 4.35 L Hgb 8.7 L Hct 28.9 L MCV 66.4 L MCH 20.0 L MCHC 30.1 L RDW Std Deviation 44.7 H RDW Coeff of Tiffany 19.0 H Plt Count 404 MPV 9.5 Immature Gran % (Auto) 0.400 Neut % (Auto) 74.3 H Lymph % (Auto) 18.4 L [place] % (Auto) 5.8 Eos % (Auto) 0.8 Baso % (Auto) 0.3 Absolute Neuts (auto) 8.6 H Absolute Lymphs (auto) 2.13 Nucleated RBC % 0 Sodium 136 Potassium 3.5 Chloride 99 Carbon Dioxide 26.3 Anion Gap 11 BUN 14 Creatinine 1.20 Estim Creat Clear Calc 49.04 L Est GFR (MDRD) Non-Af 63 BUN/Creatinine Ratio 11.3 Glucose 244 H Lactic Acid 1.8 Calcium 11.2 H Total Bilirubin 0.41 AST 23 ALT 12 Alkaline Phosphatase 128 Troponin T High Sens 39 H D Troponin T Hi Sens 2 Hr 37 H Total Protein 7.4 Albumin 3.3 L Globulin 4.2 Albumin/Globulin Ratio 0.8 L Radiography Chest X-Ray - ED: 2 View (8 cm right hilar/upper lobe mass with compression of trachea and probable right main bronchus and primary branches. This was noted on a CT that was performed earlier this year. I do not see any obvious lytic orblastic lesions of osseous structures. He may have an obstructive pneumonia. There is) Diagnostic Testing: Clinical Impression(s) from Imaging Studies Chest X-Ray 05/11/25 15:30 IMPRESSION: In <3 weeks since the prior radiograph there has developed greater opacity in the suprahilar right lung mass suggesting acute postobstruction pneumonia with residual large suprahilar tumor. 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 Reading Location: [facility] EKG Initial EKG: Attestation: I personally reviewed and interpreted this EKG as follows: Interpretation: Sinus Rhythm (Sinus rhythm rate of 91. Normal EKG. IL interval 150 ms Rickers duration 90 ms. QT duration 3096 ms. [place] is normal. EKG is unchanged from prior. ) Prior: Changed (September 14, 2021) Management Discussion w/another healthcare provider: Hospitalist (Dr. Stanley requested Icontact Dr. Robertson to make sure it is okay for me to admit this patient to [facility]) Additional Tests and Interventions Additional Tests or Interventions: With abnormal EKG elevated troponin patient received 4 baby aspirin. He was treated with IV antibiotics for his obstructive pneumonia which is new from 3 weeks ago. Treatment and Re-Evaluation :: With normal lactate no endorgan dysfunction blood cultures were not obtained. Patient was started on levofloxacin. Comments:: Dr. Stanley informing that he did speak with Dr. Robertson. Patient ethan full admit to PCU. [facility] Critical Care Time Critical Care Time: Yes Critical care time (excluding procedures): 30-74 minutes (31), Including time spent: (History, physical, documentation, independent rotation of laboratory results and x-ray and initiation of treatment for obstructive pneumonia and abnormal EKG with elevated troponin), Discussing w/Patient &/or Family/Equities Trader, Discussing w/Consultants and Arranging Admission or Transfer Discharge Plan Dx/Rx/DC Orders Clinical Impression: Obstructive pneumonia, Microcytic anemia, Acute on chronic anemia, Exertional dyspnea, Elevated troponin, Sinus tachycardia seen on cardiac nurse practitioner, Hypercalcemia, Lung cancer Disposition Disposition: Acute Care Hospital [facility] What to do if you have Problems For any increased pain, shortness of breath, bleeding, nausea or vomiting, chestpain, or any unexpected problems, contact your Primary Care Provider. Call [facility] ([phone]) or report to the closest Emergency Room. Call 911 if necessary. 05/11/25 1841 <Electronically signed by Monty Clarke MD> Cosigner Signature (if applicable): CC: MEASUREMENT DEPARTMENT CHIEF CLERK-C Carlene Haji ~ Signed [facility] Work Phone: 1(252) 618-832106-17-2025 Evaluation note* Diagnosis Onset Date Resolution Status Admit Date Elevated troponin acute May 112024 7:20pm Exertional dyspnea acute April 252024 7:20pm Hypercalcemia acute May 11, 2025 7:20pm Microcytic anemia acute May 112024 7:20pm Obstructive pneumonia acute Jamey e 2024 7:20pm Sinus tachycardia seen on cardiac nurse practitioner acute May 11, 2025 7:20pm Acute on chronic anemia chronic J une 2024 7:20pm [facility] Work Phone: 1(146) 383-791106-10-2025 Radiology Diagnostic study note [facility] [address], [place] [address] Brain/Head without Contrast MR#: [id number] Acct: [id number] Name: CHERIITZEL Carlie Rep #: [id number] : 1950 M 74 From: Bert Sloan MD PCP: Carlene Haji, MEASUREMENT DEPARTMENT CHIEF CLERKNissa Status: REG ER Study:Brain/Head without Contrast Date of Exa m: 05/04/25 Exam# [id number] Ordering Dr: Ike Dawson DO PROCEDURE: BRAIN/HEAD WITHOUT CONTRAST 05/04/2025 REASON FOR EXAM: INJURY TECHNIQUE: Head CT without intravenous contrast. Coronal and Sagittal reconstruction serieswere provided. One or more dose reduction techniques were used (e.g., Automated exposure control, adjustment of the mA and/or kV according to patient size, use of iterative reconstruction technique. RADIATION DOSE SUMMARY: DLP: 1965.25 mGycm COMPARISON: Head CT of 04/23/2025. FINDINGS: Brain: Stable bilateral cerebral white matter hypodensities are again seen, not significantly changed since the prior study, and by far most prominent again right parietal lobe. No new or worsened process is seen. No intracranial hemorrhage is seen. No extra-axial fluid collection is noted. No orbital pathology is noted. CSF Spaces: Mild generalized cerebral atrophy Sinuses/Mastoids: Clear at visualized levels Bones: No acute osseous process is seen CT/Brain/Head without Contrast IMPRESSION: Stable examination, without intracranial hemorrhage or other acute process noted. Reading Location: [address] CC: SID Haji; Dr. Ike Dawson DO ~ Engineer Chief: Signed [facility]06-10-2025 Radiology Diagnostic study note [facility] [address] [place] [address] [id number] Spine Cervical without Contras MR#: [id number] Acct: [id number] Name: ITZEL ALONZO Rep #: [id number] : 1950 M 74 From: Juan Miguel Santos MD PCP: SID Haro Status: REG ER Study:Spine Cervical without Contras Date of Exam: 05/04/25 Exam# [id number] Ordering Dr: Ike Dawson DO PROCEDURE: SPINE CERVICAL WITHOUT CONTRAS 05/04/2025 REASON FOR EXAM: INJURY History of fall. TECHNIQUE: Cervical spine CT without contrast. Coronal and Sagittal reconstruction series were provided. One or more dose reduction techniques were used (e.g., Automated exposure control, adjustment of the mA and/or kV according to patient size, use of iterative reconstruction technique RADIATION DOSE SUMMARY: CTDlvol: 13.49 mGy DLP: 616.82 mGycm COMPARISON: None FINDINGS: Alignment: Straightening of the normal cervical lordosis. Vertebrae: Anterior spondylosis. Soft Tissues: Soft tissue mass in the right upper lobe. Right supraclavicular lymphadenopathy. Other: Atherosclerotic calcification of the carotid bifurcations. C1-2: Degenerative changes of the atlantoaxial joint. C2-3: Facet joint osteoarthritis with the hypertrophy worse on the left side. No significant stenosis seen. C3-4: Minimal anterior listhesis of C3 on C4 secondary to facet joint osteoarthritis and hypertrophy. Bilateral neural foraminal stenosis. C4-5: Disc space height is relatively well-maintained. Hypertrophy of the facetjoints. No significant stenosis seen. C5-6: Moderate degree of disc space narrowing. Spondylosis. Uncovertebral arthrosis. Bilateral neural foraminal stenosis. C6-7: Moderate degree of disc space narrowing. Uncovertebral arthrosis. Mild bilateral neural foraminal stenosis. C7-T1: Unremarkable CT/Spine Cervical without Contras IMPRESSION: NO ACUTE CERVICAL FRACTURE. Multilevel facet osteoarthritis and hypertrophy as well as neural foraminal stenosis. Right upper lobe pulmonary mass. Reading Location: [place] [address] CC: MEASUREMENT DEPARTMENT CHIEF CLERK-C Carlene Haji; Dr. Ike Dawson DO ~ Engineer Chief: Signed [facility]06-10-2025 Radiology Diagnostic study note [facility] [address] [place] [address] [id number] Chest without Contrast MR#: [id number] Acct: [id number] Name: ITZEL ALONZO Rep #: [id number] : 1950 74 From: Juan Miguel Santos MD PCP: Carlene Haji, MEASUREMENT DEPARTMENT CHIEF CLERK-C Status: REG ER Study:Chest without Contrast Date of Exam: 05/04/25 Exam# [id number] Ordering Dr: Ike Dawson DO PROCEDURE: CHEST WITHOUT CONTRAST 05/04/2025 REASON FOR EXAM: RIGHT RIB INJURY Recent fall. TECHNIQUE: Chest CT without contrast. Coronal and Sagittal reconstruction series were provided. One or more dose reduction techniques were used (e.g., Automated exposure control, adjustment of the mA and/or kV according to patient size, use of iterative reconstruction technique RADIATION DOSE SUMMARY: CTDlvol: 22.99 mGy DLP: 535.50 mGycm COMPARISON: Prior chest x-ray dated April 23, 2025. FINDINGS: Hardware: EKG electrodes. Lymph nodes: Right hilar lymph nodes and right upper lobe mass. A neoplastic process should be ruled out. Heart and Vasculature: Coronary artery calcifications are noted. Coronary Artery Calcifications: Present Lungs and Airways: There is a 5.6 cm 7 cm by 10 cm mass in the right upper lobe abutting the mediastinum with right hilar lymph nodes. Scarring at the lung bases more prominent at the right lung base. Thereis also evidence of a1.8 cm by 1.7 cm nodule in the left lower lobe. A metastatic deposit should be ruled out. Pleura: No pleural effusion. Upper Abdomen: Unremarkable. Bones: Degenerative changes of the thoracic spine. The right shoulder is unremarkable. CT/Chest without Contrast IMPRESSION: Co large mass in the right upper lobe with right hilar lymphadenopathy. A neoplastic process shouldbe ruled out. Metastatic nodule in the left lower lobe with bibasilar scarring worse at the right lung base. Reading Location: [place] [address] CC: SID Haji; Dr. Ike Dawson DO ~ Engineer Chief: Signed [facility]06-10-2025 Radiology Diagnostic study note [facility] [address] [place] [address] Shoulder min 2 Views MR#: [id number] Acct: [id number] Name: ITZEL ALONZO Rep #: [id number] : 1950 M 74 From: Juan Miguel Santos MD PCP: SID Haro Status: REG ER Study:Shoulder min 2 Views Date of Exam: 05/04/25 Exam# [id number] Ordering Dr: Ike Dawson DO PROCEDURE: SHOULDER MIN 2 VIEWS 05/04/2025 REASON FOR EXAM: INJURY Right shoulder pain following injury. TECHNIQUE: Four views of the right shoulder were obtained. COMPARISON: None FINDINGS: Bones: No fracture is seen. Joints: No evidence of dislocation. Soft tissues: Right upper lobe soft tissue density. Underlying mass should be ruled out. Findings suggestive of scarring at the right lung base. Other: RAD/Shoulder min 2 Views IMPRESSION: Shoulder is unremarkable. Soft tissue density seen in the right upper lobe as described. Correlation witha CT scan recommended. Reading Location: [facility] CC: SID Haji; Dr. Ike Dawson DO ~ Engineer Chief: Signed [facility]05-30-2025 Radiology Diagnostic study note [facility] [address] [place] [address] STROKE CTA Head AND Neck W/Con MR#: [id number] Acct: [id number] Name: ITZEL ALONZO Rep #: [id number] : 1950 M 74 From: Oswald Perez MD PCP: SID Haro Status: REG ER Study:STROKE CTA Head AND Neck W/Con Date of Exam: 04/23/25 Exam# [id number] Ordering Dr: Steven Tejeda DO PROCEDURE: STROKE CTA HEAD AND NECK W/CON 04/23/2025 REASON FOR EXAM: NEURO DEFICIT, ACUTE, STROKE SUSPECTED TECHNIQUE: CTA imaging of the head and neck from the aortic arch to the skull vertex with out contrast and with intravenous contrast. Multiplanar and multisequence images were obtained. CONTRAST: Isovue 370 VOLUME: 100 mL. One or more dose reduction techniques were used (e.g., Automated exposure control, adjustment of the mA and/or kV according to patient size, use of iterative reconstruction technique). RADIATION DOSE SUMMARY: CTDlvol: 44.99+ 24.91+ 18.87 mGy DLP: 1598.74 mGycm COMPARISON: 05/09/2021. FINDINGS: Aortic Arch: Patent. Brachiocephalic and Subclavians: Pain. RIGHT Carotid: Right CCA: Patent. Right ICA: Proximal atherosclerosis. Maximum stenosis (NASCET): 50% % Right ECA: Patent. LEFT Carotid: Left CCA: Patent. Left ICA: Proximal atherosclerosis. Maximum stenosis (NASCET): 30% % Left ECA: Patent. Vertebrals: Right is dominant to the left. RIGHT Vertebral: Patent. LEFT Vertebral: Distally occluded similar to the prior CTA. Anatomy: [place] anatomy is normal. Aneurysm or avm: No intracranial aneurysms or large vascular malformations are identified. Anterior cerebral arteries: Unremarkable: Middle cerebral arteries: Unremarkable. Basilar artery: Unremarkable. Posterior cerebral arteries: Unremarkable. Other major branches of the posterior circulation: Unremarkable. Other findings: Lungs: Large right apical 9.0 x 6.1 cm heterogeneous mass abutting the mediastinum.Bones: Degenerative changes of the spine. CT/STROKE CTA Head AND Neck W/Con IMPRESSION: Distally occluded left vertebral artery similar to the prior CTA. Very large right apical mass suspicious for malignancy. Reading Location: [id number] CC: SID Haji; Dr. Steven Tejeda DO ~ Engineer Chief: Signed [facility]05-30-2025 Radiology Diagnostic study note [facility] [address] [place] [address] Chest 1 View (Portable) MR#: [id number] Acct: [id number] Name: ITZEL ALONZO Rep #: [id number] : 1950 M 74 From: Oswald Perez MD PCP: SID Haro Status: REG ER Study:Chest 1 View (Portable) Date of Exam: 04/23/25 Exam# [id number] Ordering Dr: Steven Tejeda DO PROCEDURE: CHEST 1 VIEW (PORTABLE) 04/23/2025 REASON FOR EXAM: DIZZINESS TECHNIQUE: Frontal view of the chest. COMPARISON: 05/09/2021. FINDINGS: Hardware: None Heart: The heart size is normal. Lungs: Large right perihilar masslike opacity. Bilateral hilar prominence whichmay represent adenopathy. Bones: Degenerative changes are identified within the thoracic spine. Other: None. RAD/Chest 1 View (Portable) IMPRESSION: Large right perihilar masslike opacity suspicious for malignancy. Prominent perihilar regions which may represent adenopathy. Reading Location: [id number] CC: SID Haji; Dr. Steven Tejeda DO ~ Engineer Chief: Signed [facility]05-30-2025 Radiology Diagnostic study note [facility] [address] [place] [address] STROKE Brain/Head without Cont MR#: [id number] Acct: [id number] Name: ITZEL ALONZO Rep #: [id number] : 1950 M 74 From: Oswald Perez MD PCP: SID Haro Status: REG ER Study:STROKE Brain/Head without Cont Date of Exam: 04/23/25 Exam# [id number] Ordering Dr: Steven Tejeda DO PROCEDURE: STROKE BRAIN/HEAD WITHOUT CONT N/A REASON FOR EXAM: NEURO DEFICIT, ACUTE, STROKE SUSPECTED TECHNIQUE: Head CT without intravenous contrast. Coronal and Sagittal reconstruction serieswere provided. One or more dose reduction techniques were used (e.g., Automated exposure control, adjustment of the mA and/or kV according to patient size, use of iterative reconstruction technique. RADIATION DOSE SUMMARY: CTDlvol: 44.99+ 24.91+ 18.87 mGy DLP: 1598.74 mGycm COMPARISON: 05/09/2021. FINDINGS: Brain: Extensive low density in the deep cerebral white matter most likely represents advanced chronic small vessel ischemic disease. No evidence of acute fracture or dislocation. CSF Spaces: Moderate generalized cerebral atrophy Sinuses/Mastoids: Clear at visualized levels Bones: The calvarial vault and skull base are intact. CT/STROKE Brain/Head without Cont IMPRESSION: NO ACUTE FINDINGS. Consider MRI if clinically indicated. Parenchymal atrophy and chronic microvascular ischemia. Reading Location: [id number] CC: MEASUREMENT DEPARTMENT CHIEF CLERK-C Carlene Haji; Dr. Steven Tejeda DO ~ Engineer Chief: [facility] assessment information available [facility] Work Phone: Hospital Discharge instructions Additional Instructions Your workup today indicates your dizziness is most likely from peripheral vertigo. Take the Valium as directed to help control any recurrent dizzy symptoms. Return to the ER should you have any further concerns. You may continue all of your other home medications as directed by [facility] Work Phone: Hospital Discharge instructions Additional Instructions Your CT head neck chest along right shoulder x-ray negative for any fracture or bleed. You have a known right lung mass. [facility] for discussion if you want future treatment. If you do not want treatment discussed with them palliative versus hospice care to help with overall plans of care with you. Use tramadol as needed for pain control.[facility] Work Phone: Reason for referral (narrative)No reason for referral information availableWVan Wert [facility] Work Phone: Chief Complaint and Reason for Visit Chief Complaint Admit Date neuro symptoms April 23, 2025 9:00p m Chief Complaint Admit Date neuro symptoms April 23, 2025 9:00p m Fall May 04, 2025 11:1 2am Chief Complaint Admit Date neuro symptoms April 23, 2025 9:00p m Fall May 04, 2025 11:1 2am HYPER CO OF MALIGNANCY SUSPECTED UPPER G IB May 11, 2025 7:20pm Reason for Visit Admit Date Elevated troponin May 11, 2025 7:20 pm Exertional dyspnea May 11, 2025 7:20 pm Hypercalcemia May 11, 2025 7:20 pm Microcytic anemia May 11, 2025 7:20 pm Obstructive pneumonia May 11, 2025 7: 20pm Sinus tachycardia seen on cardiac monito r May 11, 2025 7:20pm Acute on chronic anemia May 11, 2025 7:20pm Advance Directives Advance Directive Response Recorded Date/ Time Do you have a Healthcare Power of Electronic Device Monitor? No April 23, 2025 9:07pm Advance Directive Response Recorded Date/ Time Do you have a Healthcare Power of Electronic Device Monitor? No May 04, 2025 11:25am Do you have a Healthcare Power of Electronic Device Monitor? No April 23, 2025 9:07pm Advance Directive Response Recorded Date/ Time Do you have a Healthcare Power of Electronic Device Monitor? No May 04, 2025 11:25am Do you have a Healthcare Power of Electronic Device Monitor? No May 11, 2025 2:29pm Do you have a Healthcare Power of Electronic Device Monitor? No April 23, 2025 9:07pm Summary Purpose Family History No Family History Records Found Additional Source Comments Care Teams (unrecognized sec tion and content) Team Status: Active Member Role Status Dates Carlene Haji , MEASUREMENT DEPARTMENT CHIEF CLERK-C Primary Care Provider Active Team Status: Inactive Member Role Status Dates Dr. Steven Tejeda DO Emergency Provider Active Start: April 23, 2025 End: April 24, 2025 Carlene N Adithya , MEASUREMENT DEPARTMENT CHIEF CLERK-C Primary Care Provider Active Start: April 23, 2025 End: April 24, 2025 Team Status: Inactive Member Role Status Dates Dr. Steven Tejeda DO Attending Provider Active Start: April 23, 2025 End: April 24, 2025 Dr. Steven Tejeda DO Emergency Provider Active Start: April 23, 2025 End: April 24, 2025 Carlene Sonya Haji , MEASUREMENT DEPARTMENT CHIEF CLERK-C Primary Care Provider Active Start: April 23, 2025 End: April 24, 2025 Team Status: Inactive Member Role Status Dates Carlene N Adithya , MEASUREMENT DEPARTMENT CHIEF CLERK-C Primary Care Provider Active Start: May 04, 2025 End: May 04, 2025 Dr. Iek Dawson DO Emergency Provider Active Start : May 04, 2025 End: May 04, 2025 Team Status: Inactive Member Role Status Dates Carleneelly Haji , MEASUREMENT DEPARTMENT CHIEF CLERK-C Primary Care Provider Active Start: May 04, 2025 End: May 04, 2025 Dr. Ike Dawson DO Attending Provider Active Start : May 04, 2025 End: May 04, 2025 Dr. Ike Dawson DO Emergency Provider Active Start : May 04, 2025 End: May 04, 2025 Team Status: Active Member Role Status Dates Carleneelly Haji , MEASUREMENT DEPARTMENT CHIEF CLERK-C Primary Care Provider Active Start: May 11, 2025 Dr. Monty Clarke MD Emergency Provider Active Sta rt: May 11, 20[address]. [address] Stanley DO Admit Provider Active Start: May 11, [address] Stanley DO Attending Provider Active Start: May 11, 2025 Goals (unrecognized section and content) Goals may be documented in a n alternate sectionGoals may be documented in an alternate sectionGoals may be documented in an alternate section (unrecognized sect ion and content) No Status Records Found INFORMATION SOURCE (unrecogn ized section and content) DATE CREATED AUTHOR 05/08/2025 [facility] FOR RECORDS PERTAINING TO PATIENTS WHO ARE OR HAVE BEEN ENROLLED IN A CHEMICAL DEPENDENCY/SUBSTANCEABUSE PROGRAM, SOME INFORMATION MAY BE OMITTED. This clinical summary was aggregated from multiple sources. Caution should be exercised in using it in the provision of clinical care. This summary normalizes information from multiple sources, and as a consequence, information in this document may materially change the coding, format and clinical context of patient data. In addition, data may be omitted in some cases. CLINICAL DECISIONS SHOULD BE BASED ON THE PRIMARY CLINICAL RECORDS. [facility]. provides no warranty or guarantee of the accuracy or completeness of information in this document.
[2025-05-12] MEDS: 0.9% Normal Saline (1000mL) 1,000 ML 250 ML IV ×2 (00:22→04:33)
[2025-05-12 00:38] LABS: Bedside Glucose 242 mg/dL (74-106)
[2025-05-12 03:22] VITALS: BP 168/84; PULSE 103; RESP 18; TEMP 37.1; O2SAT 100
[2025-05-12] MEDS: Insulin Lispro 100 UNIT/ML INSULN.PEN SC ×4 (06:35→21:15)
[2025-05-12] MEDS: Gabapentin 300 MG Capsule PO ×3 (06:39→21:10)
[2025-05-12] MEDS: Albuterol 2.5 MG/3 ML VIAL.NEB. INHALATION ×2 (06:44→19:00)
[2025-05-12 06:45] VITALS: PULSE 98; RESP 18; O2SAT 99
[2025-05-12] MEDS: Budesonide Respules 0.5 MG/2 ML AMPUL.NEB. INHALATION ×2 (06:45→19:00)
[2025-05-12 07:04] LABS: Bedside Glucose 160 mg/dL (74-106)
[2025-05-12 07:10] LABS: Hematocrit 27.8 % (40-54); Hemoglobin 8.4 g/dL (13.0-16.5); Mean Corp Hgb Conc 30.2 g/dL (32-36); Mean Corpuscular Hgb 19.6 pg (27.0-32.0); Mean Platelet Vol. 9.8 fl (6.2-12.0); Platelet Count 411 K/mm3 (150-450); RBC Distribution Width CV 18.6 % (11.6-14.6); Red Blood Count 4.28 M/mm3 (4.6-6.2); White Blood Count 13.2 K/mm3 (4.4-11.0)
[2025-05-12 07:48] LABS: AST(SGOT) 23 U/L (<=37); Alanine Aminotransfer ALT/SGPT 11 U/L (<=46); Albumin, Serum 3.3 g/dL (3.4-4.8); Alkaline Phosphatase 131 U/L (40-129); Anion Gap 11 (5-15); BUN 10 mg/dL (4-19); BUN/Creat Ratio 10.8 RATIO (10-20); Bilirubin, Direct 0.23 mg/dL (0.00-0.30); Calcium,Total 10.3 mg/dL (7.6-11.0); Carbon Dioxide 23.7 mmol/L (21.0-32.0); Chloride 103 mmol/L (98-108); Creatinine, Serum 0.92 mg/dL (0.70-1.20); EST Glomerular Filtration Rate 87 (>60); Estimated Creatinine Clearance 62.32 ml/min (50-250); Globulin 3.8 g/dL (2.2-4.2); Glucose 159 mg/dL (70-99); Potassium 3.2 mmol/L (3.3-5.1); Protein, Total 7.1 g/dL (5.9-8.4); Sodium Level 138 mmol/L (133-145); Total Bilirubin 0.44 mg/dL (0.00-1.30)
[2025-05-12 09:30] VITALS: BP 152/81; PULSE 105; RESP 18; TEMP 36.7; O2SAT 95
--- NOTE | 2025-05-12 09:35 | PCM.PN.HOSP ---
Reason for Visit Reason for Visit: Diagnoses Malignant neoplasm of unspecified part of unspecified bronchus or lung (05/11/25) Anemia, unspecified (05/11/25) Hypercalcemia (05/11/25) Objective Data Objective Data Vital Signs: Vital Signs Temp Pulse Resp BP Pulse Ox O2 Del Method 98.7 F 98 18 168/84 H 99 Room Air 05/12/25 03:22 05/12/25 06:45 05/12/25 06:45 05/12/25 03:22 05/12/25 06:45 05/12/25 06:45 Oxygen Delivery Method Room Air Weight: 142 lb 3.17 oz Body Mass Index (BMI) 18.7 Intake & Output: Intake and Output for Last 24 Hours 05/10/25 05/11/25 05/12/25 23:59 23:59 23:59 Intake Total 2243.33 / 2243.33 1933.33 / 1933.33 Output Total 0 / 0 1600 / 1600 Balance 2243.33 / 2243.33 333.33 / 333.33 Lab / Micro Data 05/12/25 05:58 05/12/25 05:58 Labs: Laboratory Results - last 24 hr 05/11/25 15:20: WBC 11.6 H, RBC 4.35 L, Hgb 8.7 L, Hct 28.9 L, MCV 66.4 L, MCH 20.0 L, MCHC 30.1 L, RDW Std Deviation 44.7 H, RDW Coeff of Tiffany 19.0 H, Plt Count 404, MPV 9.5, Immature Gran % (Auto) 0.400, Neut % (Auto) 74.3 H, Lymph % (Auto) 18.4 L, Roane % (Auto) 5.8, Eos % (Auto) 0.8, Baso % (Auto) 0.3, Absolute Neuts (auto) 8.6 H, Absolute Lymphs (auto) 2.13, Nucleated RBC % 0, Sodium 136, Potassium 3.5, Chloride 99, Carbon Dioxide 26.3, Anion Gap 11, BUN 14, Creatinine 1.20, Estim Creat Clear Calc 49.04 L, Est GFR (MDRD) Non-Af 63, BUN/Creatinine Ratio 11.3, Glucose 244 H, Lactic Acid 1.8, Calcium 11.2 H, Total Bilirubin 0.41, AST 23, ALT 12, Alkaline Phosphatase 128, Troponin T High Sens 39 H D, Total Protein 7.4, Albumin 3.3 L, Globulin 4.2, Albumin/Globulin Ratio 0.8 L 05/11/25 17:16: Troponin T Hi Sens 2 Hr 37 H 05/11/25 19:42: Troponin T Hi Sens 4Hr 39 H 05/11/25 21:48: POC Glucose 242 H 05/12/25 05:58: WBC 13.2 H, RBC 4.28 L, Hgb 8.4 L, Hct 27.8 L, MCV 65.0 L, MCH 19.6 L, MCHC 30.2 L, RDW Std Deviation 43.0, RDW Coeff of Tiffany 18.6 H, Plt Count 411, MPV 9.8, Sodium 138, Potassium 3.2 L, Chloride 103, Carbon Dioxide 23.7, Anion Gap 11, BUN 10, Creatinine 0.92, Estim Creat Clear Calc 62.32, Est GFR (MDRD) Non-Af 87, BUN/Creatinine Ratio 10.8, Glucose 159 H, Calcium 10.3, Total Bilirubin 0.44, Direct Bilirubin 0.23, AST 23, ALT 11, Alkaline Phosphatase 131 H, Total Protein 7.1, Albumin 3.3 L, Globulin 3.8 05/12/25 06:34: POC Glucose 160 H Micro: Microbiology 05/11/25 17:54 Stool Stool Occult Blood (RODRIGUEZ) - Final Radiography Diagnostic Testing: Radiology Impression Chest X-Ray 05/11/25 15:30 IMPRESSION: In <3 weeks since the prior radiograph there has developed greater opacity in the suprahilar right lung mass suggesting acute postobstruction pneumonia with residual large suprahilar tumor. 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 Reading [facility] Physical Exam Narrative Seen and examined Patient has mild lethargic but wake up. Shortness of breath mild chest congestion. Diagnosed with a right suprahilar lung cancer, exact sampler/tissue type unclear. Follows [place] oncologist, await path . Because of transportation he said he could not follow-up to December therefore exact course of chemotherapy not clear but he is eager to have chemotherapy. His physical and functional status is suboptimal/not good. Very weak, difficulty in sitting up from supine position. Physical exam General: Awake, oriented x 3. BMI 18.8 kg/m?, mild chronic malnutrition. Chronic fatigue HEENT: Atraumatic, PERRLA, EOMI, Normocephalic. Oral: No Gingival or Mucosal Lesions/ Ulcerations Neck: Supple, No JVD, Negative Carotid Bruits Chest wall/Lungs: Air entry diminished in bilateral lung bases. Bilateral coarse crepitations Cardiovascular: Sinus rhythm, Normal S1,S2, No M/G/R Abdomen: Bowel Sounds Present, Soft, Non Tender, Non-Distended : No dysuria. No renal angle tenderness. No suprapubic tenderness. Extremities: No edema, Capillary Refill Less than 3 Seconds Skin: No rashes, No breakdown Musculoskeletal: No Tenderness to Palpation of Joints or Extremities. ROM limited. Neurological: Cranial nerves II-XII grossly intact, DTR 2+/4. No acute focal neurological deficit. Psych/Mental Status: Flat affect Assessment & Plan Assessment/Plan (1) Lung cancer: (2) Hypercalcemia: (3) Acute on chronic anemia: PLAN: Plan Patient is a 74-year-old male who presented [facility] ED on 05/11/2025 with worsening fatigue, weakness and confusion. 1. Large right-sided lung cancer with suspected postobstructive pneumonia ? Admit under inpatient status to PCU. Patient with known history of large right-sided lung cancer. Chest x-ray on admit with concern for acute postobstructive pneumonia in setting of lung cancer. Stable on room air at rest. Patient has established oncologist Dr. Lake, [facility]. I myself tried to contact through the transfer line 2 times but unsuccessful. Discussed with the employment case manager. [place] oncologist wanted CT head before transfer. In meantime continue vancomycin and Zosyn. Sputum culture is ordered. Patient eager to get treatment for lung cancer although his physical Karnofsky status is not good. Transferred to further care regarding lung cancer to oncologist. 2. Acute metabolic encephalopathy suspected secondary to hypercalcemia of malignancy ? Calcium 11.2 on admit. Notably calcium was 12.2 on ED visit on 05/04. No prior history of hypercalcemia to this point. Suspect this is hypercalcemia of malignancy in setting of lung cancer and suspect patient's encephalopathy and worsening fatigue and weakness are in part secondary to hypercalcemia. Repeat calcium is 10.3 better. Serum albumin 3.3. Continue IV fluid and follow-up labs tomorrow 3. Acute on chronic anemia with suspected upper GI bleed ? Hemoglobin 8.7 on admit, MCV 66. Slow hemoglobin downtrend over the past few months. Patient reports dark stools over the past 1 to 2 weeks. Stool occult sample was negative. However, most likely etiology for acute on chronic anemia appears to be slow upper GI bleed. Does report acid reflux symptoms recently. Suspect his lung cancer may be contributing to irritation and inflammation of the esophagus possibly due to esophagitis or gastritis and upper GI bleed. Will treat with IV PPI twice daily for now. As plan is for transfer to the [place], will hold on GI consult for now. Monitor daily CBC. 4. Underweight BMI with suspected malnutrition ? Nutrition consulted. BMI 18.8 on admit. Appreciate nutrition recommendations. 5. COPD ? Stable on room air at rest in the ED, not in acute exacerbation. Continue home inhalers. 6. Hypertension, hyperlipidemia, history of CVA ? Hypertensive to the 150s to 160s in the ED. Continue home aspirin, statin and amlodipine. 7. Type 2 diabetes mellitus with neuropathy ? Blood glucose 244 on admit. Will treat with Lantus 10 units at night and sliding scale insulin with meals for now, adjust as needed. Continue home gabapentin. DVT prophylaxis: SCDs CODE STATUS: Full code, verified Expected disposition: Likely transfer to [facility] Total time of the visit including total time spent in counseling or coordination of care, (more than 50% of the total time, spent in obtaining medical information from nurses and other ancillary care providers ,explaining to the patient about labs, imaging, diagnosis and management of active complex medical conditions), effort to transfer [facility], discussion with employment case manager, review of labs and imaging is 35 minutes. Microbiology Past 72 Hours 05/11/25 17:54 Stool Stool Occult Blood (RODRIGUEZ) - Final Laboratory Results 05/11/25 17:16: Troponin T Hi Sens 2 Hr 37 H 05/11/25 19:42: Troponin T Hi Sens 4Hr 39 H 05/11/25 21:48: POC Glucose 242 H 05/12/25 05:58: WBC 13.2 H, RBC 4.28 L, Hgb 8.4 L, Hct 27.8 L, MCV 65.0 L, MCH 19.6 L, MCHC 30.2 L, RDW Std Deviation 43.0, RDW Coeff of Tiffany 18.6 H, Plt Count 411, MPV 9.8, Sodium 138, Potassium 3.2 L, Chloride 103, Carbon Dioxide 23.7, Anion Gap 11, BUN 10, Creatinine 0.92, Estim Creat Clear Calc 62.32, Est GFR (MDRD) Non-Af 87, BUN/Creatinine Ratio 10.8, Glucose 159 H, Calcium 10.3, Total Bilirubin 0.44, Direct Bilirubin 0.23, AST 23, ALT 11, Alkaline Phosphatase 131 H, Total Protein 7.1, Albumin 3.3 L, Globulin 3.8 05/12/25 06:34: POC Glucose 160 H 05/12/25 11:54: POC Glucose 310 H 05/12/25 15:54: POC Glucose 278 H Charges/Coding Visit Charges Inpatient E&M: 97350 Subs Hosp L3
[2025-05-12] MEDS: Aspirin E.C. 81 MG Tablet PO (09:40)
[2025-05-12] MEDS: Pantoprazole Sodium 40 MG in 0.9% Normal Saline (100mL MB+) 100 ML 330 MG IV ×2 (09:43→20:21)
[2025-05-12] MEDS: Vancomycin IV 500 MG/100 ML BAG 100 MG IV ×2 (10:09→21:03)
--- NOTE | 2025-05-12 11:40 | CASEMGMT ---
RN BECCA Face to Face with patient for initial transition planning/care coordination assessment. RN BECCA introduced self and role at [facility]. Patient lying in bed, alert and oriented. Patient willing to participate in assessment and is able to answer all questions appropriately. Care providers, pharmacy, and demographics verified. Strata: 3 PCP: Blossom BOWERS Specialists: [place] Oncologist [facility] [place] Insurance: [place] Prescription Benefit: [place] Living Will/HPOA: none LNOK: daughter, brother, SO Living Arrangements: Patient lives alone in an apartment at [facility]. Patient states he is independent at home. Transportation: [facility], [facility] D[facility]: Patient has raised toilet, grab bars, and rollator at home. Patient wishes to transfer to [facility]. Patient states he has no further needs or concerns at this time. CM to follow for discharge planning needs that may arise. Disposition Plan: Transfer to [facility] Cha BANDA, RN, CM
[2025-05-12 12:20] LABS: Bedside Glucose 310 mg/dL (74-106)
--- NOTE | 2025-05-12 14:44 | CASEMGMT ---
Addendum entered by Cha Hdez 05/13/25 09:19: Updated clinicals faxed to the [facility], awaiting acceptance. Addendum entered by Cha Hdez 05/12/25 15:16: HEATHER HUDSON received call back from [facility] requesting clinical information for [facility] to review. Clinical information faxed to [facility] as requested. Original Note: Per Hospitalist, patient is needing transferred to [facility] for further oncology workup. HEATHER HUDSON called and left message with Kimberley at the [facility] transfer center with return contact information. BECCA will continue to follow this patient and plan for a safe discharge.
[2025-05-12 15:00] VITALS: BP 158/80; PULSE 102; RESP 18; TEMP 36.6; O2SAT 97
[2025-05-12] MEDS: Glucerna Shake 120 ML LIQUID PO (16:00)
--- NOTE | 2025-05-12 16:18 | CT_ITS ---
PROCEDURE: BRAIN/HEAD W/WO CONTRAST 05/12/2025 REASON FOR EXAM: TO RULE OUT BRAIN METS. HISTORY OF LUNG CANCER TECHNIQUE: BRAIN/HEAD W/WO CONTRAST coronal and Sagittal reconstruction series were provided. CONTRAST: 46 mL of Isovue-300 L One or more dose reduction techniques were used (e.g., Automated exposure control, adjustment of the mA and/or kV according to patient size, use of iterative reconstruction technique). RADIATION DOSE SUMMARY: DLP: 1648 mGycm COMPARISON: 05/04/2025 FINDINGS: No abnormal enhancing lesion. No mass effect. Stable right parietal encephalomalacia likely from prior chronic infarction. Right cerebellar encephalomalacia likely from prior chronic infarction. There is no acute infarct, or intracranial hemorrhage. There is no hydrocephalus or significant midline shift. There is moderate chronic microvascular ischemic changes and moderate parenchymal volume loss. No acute, depressed calvarial fractures. No large scalp hematomas. CT/Brain/Head W/WO Contrast IMPRESSION: No abnormal enhancing mass. No acute intracranial process. Reading Location: [id number]
[2025-05-12 16:45] LABS: Bedside Glucose 278 mg/dL (74-106)
[2025-05-12] MEDS: 0.9% Normal Saline (1000mL) 1,000 ML 75 ML IV (17:38)
[2025-05-12 19:00] VITALS: PULSE 100; RESP 22; O2SAT 94
[2025-05-12 20:56] VITALS: BP 159/83; PULSE 101; RESP 18; TEMP 37.4; O2SAT 93
[2025-05-12] MEDS: MELATONIN 3 MG TABLET PO (21:12)
[2025-05-12] MEDS: amLODIPine 5 MG Tablet PO (21:13)
[2025-05-12] MEDS: Atorvastatin Calcium 40 MG Tablet PO (21:14)
[2025-05-12] MEDS: Insulin Glargine-YFGN 100 UNIT/ML Pen 10 UNIT SC (21:14)
[2025-05-12 23:38] LABS: Bedside Glucose 330 mg/dL (74-106)
[2025-05-13 03:24] VITALS: BP 142/68; PULSE 108; RESP 18; TEMP 37.5; O2SAT 94
[2025-05-13 06:12] LABS: Absolute Lymphocyte Count 1.93 X10^3/uL (0.83-4.51); Absolute Neutrophil Count 8.9 X10^3/uL (2.0-7.7); Basophil# 0.02 X10^3/uL; Basophil% 0.2 % (0-1); Eosinophils% 0.9 % (0-5); Hematocrit 25.4 % (40-54); Hemoglobin 7.7 g/dL (13.0-16.5); Lymphocyte # 1.93 X10^3/ul (0.83-4.51); Lymphocyte % 16.4 % (19-41); Mean Corp Hgb Conc 30.3 g/dL (32-36); Mean Corpuscular Hgb 19.7 pg (27.0-32.0); Monocyte# 0.76 X10^3/uL; Monocyte% 6.5 % (0-10); NRBC Flagged by Analyzer 0 % (0-5); Neutrophil % 75.7 % (47-70); Platelet Count 358 K/mm3 (150-450); RBC Distribution Width CV 18.4 % (11.6-14.6); RBC Distribution Width SD 43.1 fl (35.1-43.9); Red Blood Count 3.91 M/mm3 (4.6-6.2); White Blood Count 11.8 K/mm3 (4.4-11.0)
[2025-05-13] MEDS: Piperacil/Tazobactam 3.375 GM in 0.9% Normal Saline (50mL MB+) 50 ML IV (06:18)
[2025-05-13] MEDS: Insulin Lispro 100 UNIT/ML INSULN.PEN SC ×2 (06:22→11:18)
[2025-05-13] MEDS: Gabapentin 300 MG Capsule PO (06:25)
[2025-05-13 06:27] LABS: Anion Gap 11 (5-15); BUN 10 mg/dL (4-19); BUN/Creat Ratio 9.2 RATIO (10-20); Calcium,Total 9.7 mg/dL (7.6-11.0); Carbon Dioxide 22.8 mmol/L (21.0-32.0); Chloride 104 mmol/L (98-108); Creatinine, Serum 1.07 mg/dL (0.70-1.20); EST Glomerular Filtration Rate 72 (>60); Estimated Creatinine Clearance 53.58 ml/min (50-250); Glucose 207 mg/dL (70-99); Potassium 3.2 mmol/L (3.3-5.1); Sodium Level 137 mmol/L (133-145)
[2025-05-13 06:41] LABS: Bedside Glucose 190 mg/dL (74-106)
[2025-05-13 06:42] VITALS: PULSE 92; RESP 20; O2SAT 96
[2025-05-13] MEDS: Albuterol 2.5 MG/3 ML VIAL.NEB. INHALATION ×2 (06:44→12:39)
[2025-05-13] MEDS: Budesonide Respules 0.5 MG/2 ML AMPUL.NEB. INHALATION (06:44)
[2025-05-13 09:16] VITALS: BP 127/65; PULSE 85; RESP 18; TEMP 37.2; O2SAT 100
[2025-05-13] MEDS: Acetaminophen 325 MG Tablet 650 MG PO (09:21)
[2025-05-13] MEDS: Aspirin E.C. 81 MG Tablet PO (09:24)
[2025-05-13] MEDS: Pantoprazole Sodium 40 MG in 0.9% Normal Saline (100mL MB+) 100 ML 330 MG IV (10:34)
[2025-05-13 10:52] LABS: Vancomycin, Trough Level 8.6 ug/mL (5.0-15.0)
--- NOTE | 2025-05-13 11:07 | PCM.RX.CS ---
Consult Antibiotic Management Pharmacy has been consulted to manage selected antibiotic: Vancomycin Type of Intervention Type of Consult: Follow-up Suspected Infection Suspected Infection: Pneumonia Labs Labs: Sodium 137 mmol/L (133-145) 05/13/25 05:18 Potassium 3.2 mmol/L (3.3-5.1) L 05/13/25 05:18 Chloride 104 mmol/L (98-108) 05/13/25 05:18 Carbon Dioxide 22.8 mmol/L (21.0-32.0) 05/13/25 05:18 Anion Gap 11 (5-15) 05/13/25 05:18 BUN 10 mg/dL (4-19) 05/13/25 05:18 Creatinine 1.07 mg/dL (0.70-1.20) 05/13/25 05:18 Est GFR (MDRD) Non-Af 72 (>60) 05/13/25 05:18 BUN/Creatinine Ratio 9.2 RATIO (10-20) L 05/13/25 05:18 Glucose 207 mg/dL (70-99) H 05/13/25 05:18 Vancomycin Trough 8.6 ug/mL (5.0-15.0) 05/13/25 09:33 Microbiology Microbiology: Microbiology 05/11/25 17:54 Stool Stool Occult Blood (RODRIGUEZ) - Final Goal Trough Goal Trough: 15-20 mcg/mL Pharmacy Plan for Drug Dosing Pharmacy Plan for Drug Dosing: VANCOMYCIN LEVEL RECEIVED Current Vancomycin Dose: 500mg Q12H Number of Doses Received: 500mg x2, 1750mg x1 Vancomycin Level: 8.6 Hours Since Last Dose: 12.5 Renal Function: sCr 1.07 Renal Function Trend: stable Lab/Micro: sputum cx pending Vancomycin Plan/Comments: Increase Vancomycin dose to 1000mg Q12H Pending Level: 05/14/25 @ 23:00 Pharmacy Service will continue to monitor and adjust dosing as required. Follow-Up Labs Follow-Up Labs: Trough: Vancomycin (05/14/25 @ 23:00)
[2025-05-13] MEDS: Vancomycin IV 1,000 MG/200 ML BAG 200 MG IV (11:20)
[2025-05-13 11:49] LABS: Bedside Glucose 325 mg/dL (74-106)
--- NOTE | 2025-05-13 11:50 | CASEMGMT ---
HEATHER HUDSON received call from Che at [facility] that patient has been accepted and they have bed available today. Patient will be going to and accepting physician is Dr. Shayne Johnson. Nurse to nurse report number is [phone] ext [phone]. Che is setting up transport for 1400. Che requesting copy of chart and radiology disc be sent with patient. HEATHER HUDSON updated hospitalist, nursing, and community outreach specialist. HEATHER HUDSON updated patient. Patient states he will updated his daughter.
--- NOTE | 2025-05-13 12:15 | NURSING ---
Attempted to call report to the [facility], no answer.
[2025-05-13 12:40] VITALS: PULSE 86; RESP 16; O2SAT 98
[2025-05-13 12:41] VITALS: O2SAT 96
--- NOTE | 2025-05-13 12:53 | NURSING ---
Attempt #2 to call report to the [facility], no answer.
--- NOTE | 2025-05-13 12:57 | PCM.DC.SUM ---
Providers Date of Admission: 05/11/25 Primary Care Physician: Carlene Haji, ADMINISTRATIVE FELLOW-C Reason For Visit: HYPER CO OF MALIGNANCY SUSPECTED UPPER GIB Diagnosis Discharge Diagnosis (1) Lung cancer: Status: Acute Code(s): C34.90 - Malignant neoplasm of unspecified part of unspecified bronchus or lung (2) Hypercalcemia: Status: Acute Code(s): E83.52 - Hypercalcemia (3) Acute on chronic anemia: Status: Chronic Code(s): D64.9 - Anemia, unspecified Plan Patient is a 74-year-old male who presented [facility] ED on 05/11/2025 with worsening fatigue, weakness and confusion. 1. Large right-sided lung cancer with suspected postobstructive pneumonia ? Admit under inpatient status to PCU. Patient with known history of large right-sided lung cancer. Chest x-ray on admit with concern for acute postobstructive pneumonia in setting of lung cancer. Stable on room air at rest. Patient has established oncologist Dr. Lake, [facility]. I myself tried to contact through the transfer line 2 times but unsuccessful. Discussed with the rn case management. [place] oncologist wanted CT head before transfer. In meantime continue vancomycin and Zosyn. Sputum culture is ordered. Patient eager to get treatment for lung cancer although his physical Karnofsky status is not good. Transferred to further care regarding lung cancer to oncologist. 05/13: Patient shortness of breath is better. Is more awake and sitting upright. Mild hypokalemia, potassium replaced 2. Acute metabolic encephalopathy suspected secondary to hypercalcemia of malignancy ? Calcium 11.2 on admit. Notably calcium was 12.2 on ED visit on 05/04. No prior history of hypercalcemia to this point. Suspect this is hypercalcemia of malignancy in setting of lung cancer and suspect patient's encephalopathy and worsening fatigue and weakness are in part secondary to hypercalcemia. Repeat calcium is 10.3 better. Serum albumin 3.3. Continue IV fluid and follow-up labs tomorrow 05/13: Metabolic encephalopathy resolved. Patient is more awake and alert. Calcium 9.7. 3. Acute on chronic anemia with suspected upper GI bleed ? Hemoglobin 8.7 on admit, MCV 66. Slow hemoglobin downtrend over the past few months. Patient reports dark stools over the past 1 to 2 weeks. Stool occult sample was negative. However, most likely etiology for acute on chronic anemia appears to be slow upper GI bleed. Does report acid reflux symptoms recently. Suspect his lung cancer may be contributing to irritation and inflammation of the esophagus possibly due to esophagitis or gastritis and upper GI bleed. Will treat with IV PPI twice daily for now. As plan is for transfer to the [place], will hold on GI consult for now. Monitor daily CBC. 05/13: Hemoglobin 7.7/25.4%. Monitor hemoglobin daily. If less than 7 g will need PRBC transfusion. 4. Underweight BMI with suspected malnutrition ? Nutrition consulted. BMI 18.8 on admit. Appreciate nutrition recommendations. 5. COPD ? Stable on room air at rest in the ED, not in acute exacerbation. Continue home inhalers. 6. Hypertension, hyperlipidemia, history of CVA ? Hypertensive to the 150s to 160s in the ED. Continue home aspirin, statin and amlodipine. 7. Type 2 diabetes mellitus with neuropathy ? Blood glucose 244 on admit. Will treat with Lantus 10 units at night and sliding scale insulin with meals for now, adjust as needed. Continue home gabapentin. DVT prophylaxis: SCDs CODE STATUS: Full code, verified Expected disposition: Likely transfer to [place] Patient is being transferred to [facility] for further care and decision making regarding care of right lung cancer Medications at Discharge Home Medications gabapentin 300 mg capsule 300 mg PO TID neuropathy 02/24/15 amlodipine 5 mg tablet 5 mg PO QHS blood pressure 05/09/21 aspirin 81 mg tablet,delayed release 81 mg PO DAILY heart health 05/09/21 budesonide-formoterol HFA 80 mcg-4.5 mcg/actuation aerosol inhaler (Symbicort) 2 puff inhalation BID COPD 05/09/21 cyclobenzaprine 10 mg tablet 10 mg PO TID PRN muscle spasms 05/09/21 sildenafil 100 mg tablet 100 mg PO DAILY PRN Erectile Dysfunction 05/09/21 atorvastatin 80 mg tablet 80 mg PO QHS #90 tabs 05/12/21 insulin aspart U-100 100 unit/mL (3 mL) subcutaneous pen (Novolog FlexPen U-100 Insulin aspart) 10 unit subcut TIDCM 12/12/24 insulin glargine 100 unit/mL (3 mL) subcutaneous pen (Lantus Solostar U-100 Insulin) 10 unit subcut QPM 05/04/25 magnesium hydroxide 400 mg/5 mL oral suspension (Gentle Laxative (magnesium hydroxide)) 5 ml PO DAILY PRN constipation 05/04/25 ropinirole 1 mg tablet 1 mg PO DAILY 05/04/25 Physical Exam Narrative Seen and examined Patient shortness of breath is much improved. Sitting upright. Discussed with patient's daughter in the bed. No chest pain. Diagnosed with a right suprahilar lung cancer, exact sampler/tissue type unclear. Follows [place] oncologist, await path . Because of transportation he said he could not follow-up to December therefore exact course of chemotherapy not clear but he is eager to have chemotherapy. His physical and functional status is suboptimal/not good. Very weak, difficulty in sitting up from supine position. Physical exam General: Awake, oriented x 3. BMI 18.8 kg/m?, mild chronic malnutrition. Chronic fatigue HEENT: Atraumatic, PERRLA, EOMI, Normocephalic. Oral: No Gingival or Mucosal Lesions/ Ulcerations Neck: Supple, No JVD, Negative Carotid Bruits Chest wall/Lungs: Air entry diminished in bilateral lung bases. Crepitations have improved Cardiovascular: Sinus rhythm, Normal S1,S2, No M/G/R Abdomen: Bowel Sounds Present, Soft, Non Tender, Non-Distended : No dysuria. No renal angle tenderness. No suprapubic tenderness. Extremities: No edema, Capillary Refill Less than 3 Seconds Skin: No rashes, No breakdown Musculoskeletal: No Tenderness to Palpation of Joints or Extremities. ROM limited. Neurological: Cranial nerves II-XII grossly intact, DTR 2+/4. No acute focal neurological deficit. Psych/Mental Status: Flat affect Weight / BMI Weight Weight: 142 lb 3.17 oz Body Mass Index (BMI) 18.7 ABG / Lab / Microbiology Data 05/13/25 05:18 05/13/25 05:18 Laboratory: Laboratory Results - last 24 hr 05/12/25 15:54: POC Glucose 278 H 05/12/25 21:06: POC Glucose 330 H 05/13/25 05:18: WBC 11.8 H, RBC 3.91 L, Hgb 7.7 L, Hct 25.4 L, MCV 65.0 L, MCH 19.7 L, MCHC 30.3 L, RDW Std Deviation 43.1, RDW Coeff of Tiffany 18.4 H, Plt Count 358, MPV 10.0, Immature Gran % (Auto) 0.300, Neut % (Auto) 75.7 H, Lymph % (Auto) 16.4 L, Kingsbury % (Auto) 6.5, Eos % (Auto) 0.9, Baso % (Auto) 0.2, Absolute Neuts (auto) 8.9 H, Absolute Lymphs (auto) 1.93, Nucleated RBC % 0, Sodium 137, Potassium 3.2 L, Chloride 104, Carbon Dioxide 22.8, Anion Gap 11, BUN 10, Creatinine 1.07, Estim Creat Clear Calc 53.58, Est GFR (MDRD) Non-Af 72, BUN/Creatinine Ratio 9.2 L, Glucose 207 H, Calcium 9.7 05/13/25 06:21: POC Glucose 190 H 05/13/25 09:33: Vancomycin Trough 8.6 05/13/25 11:17: POC Glucose 325 H Microbiology: Microbiology 05/11/25 17:54 Stool Stool Occult Blood (RODRIGUEZ) - Final Radiography Diagnostic Testing: Radiology Impression Brain CT 05/12/25 16:18 IMPRESSION: No abnormal enhancing mass. No acute intracranial process. Reading Location: [facility] D/C Instructions DC O2, CPAP, BIPAP Needs Home O2 Discharge instructions: No Meaningful Use Info Meaningful Use Meaningful Use Diagnoses (Choose all that apply): None applicable Ischemic Stroke Statin Dosing Therapy Reference: STATIN DOSE THERAPY REFERENCE: * Patients > 75 years receive moderate or high dose statin therapy. * Patients 75 years or YOUNGER should receive HIGH intensity statin dose unless contraindicated. You will be required to document reason for non-treatment if statin daily dose does not meet guidelines. HIGH DOSE STATIN THERAPY DAILY Atorvastatin > than or = to 40 mg Rosuvastatin > than or = to 20 mg Amlodipine + Atorvastatin > than or = to 2.5/40 mg Ezetimibe + Simvastatin 10/80 mg Simvastatin 80mg Discharge Plan Admission Admit Date/Time: 05/11/25 19:20 Attending Provider: Anthony Salgado Primary Care Provider: Carlene aHji Consulting Providers: Lane Stanley Discharge Orders/Prescriptions Prescriptions: No Action gabapentin 300 MG capsule 300 mg PO TID cyclobenzaprine 10 mg Tablet 10 mg PO TID PRN (Reason: muscle spasms) amlodipine 5 mg Tablet 5 mg PO QHS budesonide-formoterol [Symbicort] 80-4.5 mcg/actuation Hfa Aerosol Inhaler 2 puff INHALATION BID aspirin 81 mg Tablet,Delayed Release (Dr/Ec) 81 mg PO DAILY sildenafil 100 mg Tablet 100 mg PO DAILY PRN (Reason: Erectile Dysfunction) atorvastatin 80 mg tablet 80 mg PO QHS Qty: 90 0RF insulin aspart U-100 [Novolog FlexPen U-100 Insulin] 100 unit/mL (3 mL) insulin pen 10 unit subcut TIDCM ropinirole 1 mg tablet 1 mg PO DAILY Rx Instructions: PT UNSURE OF STRENGTH insulin glargine [Lantus Solostar U-100 Insulin] 100 unit/mL (3 mL) insulin pen 10 unit subcut QPM Rx Instructions: PT STATES USES 10-15U QHS magnesium hydroxide [Gentle Laxative (mag hydrox)] 400 mg/5 mL suspension 5 ml PO DAILY PRN (Reason: constipation) Referrals / Follow Up: Carlene Haji, ADMINISTRATIVE FELLOW-C [Primary Care Provider] - Disposition Discharge Orders: Discharge Patient (Routine); Ordered 05/12/25 Ordered By: Dr. Anthony Salgado Charges/Coding Visit Charges Inpatient E&M: 30577 Disch Hosp >30min
[2025-05-13] MEDS: Potassium Chloride Oral Tablet 20 MEQ 40 MEQ PO (13:06)
[2025-05-13 13:11] VITALS: BP 140/72; PULSE 90; RESP 12; TEMP 36.6; O2SAT 95
--- NOTE | 2025-05-13 15:23 | CHAPLAIN ---
Type of Pastoral Visit ___ Initial Visit ___ Follow-up Visit ___ On-call Visit ___ General Patient Visit ___ Spiritual Assessment ___ Family Conference ___ Bereavement ___ Rapid Response ___ Code Blue ___ Other (describe below) Pastoral Care Referral From ___ Patient ___ Family ___ Nurse ___ Physician ___ Change Attendant ___ Health Administrator ___ Other (describe below) Sacrament/Intervention ___ Active listening ___ Anointing ___ Roman Catholic ___ Bereavement ___ Communion ___ Tomasa exploration ___ ___ Life review ___ Prayer ___ Reconciliation ___ Sacrament of Sick ___ Supportive presence ___ Wedding ___ Other (describe below) Pastoral Comments transport team was here to move patient to another facility; two family members step out of the room and this oil mixer is able to ask questions about the situation, how patient is handling the transfer, and assess other needs at this time; pt has been seen before; family members welcome the offer of support but deny needs at this time;
== END 2025-05-13 14:28 | DRG 193 ==
LOC: ED 18:29 → PCU 19:35
PROVIDERS: Admitting Provider Hospitalist; Emergency Provider Emergency Medicine; PCP Nurse Practitioner Gerontology; Visit Provider Internal Medicine
DX: J18.8 Other pneumonia, unspecified organism (principal); G93.41 Metabolic encephalopathy; E44.1 Mild protein-calorie malnutrition; K92.2 Gastrointestinal hemorrhage, unspecified; C34.91 Malignant neoplasm of unspecified part of right bronchus or lung; J44.0 Chronic obstructive pulmonary disease with (acute) lower respiratory infection; Z68.1 Body mass index [BMI] 19.9 or less, adult; D64.9 Anemia, unspecified; E11.40 Type 2 diabetes mellitus with diabetic neuropathy, unspecified; I10 Essential (primary) hypertension; Z79.4 Long term (current) use of insulin; E78.5 Hyperlipidemia, unspecified; E83.52 Hypercalcemia; E87.6 Hypokalemia; F17.210 Nicotine dependence, cigarettes, uncomplicated; F17.290 Nicotine dependence, other tobacco product, uncomplicated; Z79.51 Long term (current) use of inhaled steroids; R79.89 Other specified abnormal findings of blood chemistry; Z86.73 Personal history of transient ischemic attack (TIA), and cerebral infarction without residual deficits; Z79.899 Other long term (current) drug therapy; Z79.82 Long term (current) use of aspirin; Z90.49 Acquired absence of other specified parts of digestive tract
CPT/HCPCS: 36415; 70470; 71046; 80048; 80053; 80076; 80202; 82274; 82962; 83605; 84484; 85025; 85027; 93005; 94640; 94668; 97802; 99252; 99285; Q9967; A4216; G0463

== ENCOUNTER 2025-07-03 19:08 | Inpatient (IN) | payer OTHER, SELFPAY ==
[2025-07-03 19:10] VITALS: BP 185/93; PULSE 113; RESP 18; TEMP 37.1; O2SAT 95; BMI 18.8
--- NOTE | 2025-07-03 19:49 | EDS_ITS ---
HPI History of Present Illness HPI Narrative: Patient presents with right hip pain that began after a fall. Patient fell onto his right hip. Patient states the pain is worse with any movement. Patient describes the pain as sharp. Patient states he was unable to stand or ambulate after the fall. Patient denies any paresthesias or weakness. Patient denies any head injury or loss of consciousness. Patient denies any other injuries. Chief Complaint: Lower Extremity Injury Informant: patient Onset/Context/Timing Onset: Today Context: Sudden Onset Timing: Continuous Quality of Pain: Sharp Location: Right hip Worsened by: Movement Relieved by: Nothing Associated Symptoms Associated Symptoms: Negative for Parasthesia, Weakness or Loss of Funtion [facility] Medical History (Updated 07/03/25 @ 23:[address] Johanne Evans MD) CKD (chronic kidney disease), stage II Chronic anemia Cancer of right lung Anxiety and depression GERD (gastroesophageal reflux disease) Cirrhosis Former smoker TIA (transient ischemic attack) Kidney stones Neuropathy PTSD (post-traumatic stress disorder) Hepatitis COPD (chronic obstructive pulmonary disease) Hypertension Diabetes Home Medications ?Medication ?Instructions ?Recorded ?Last Taken ?Type gabapentin 300 mg capsule 300 mg PO TID neuropathy 01/09 Unknown History amlodipine 5 mg tablet 5 mg PO QHS blood pressure 0 05/09/21 Unknown History aspirin 81 mg tablet,delayed 81 mg PO DAILY heart heal th 05/09/21 Unknown History release budesonide-formoterol HFA 80 2 puff inhalation BID [employer] D 05/09/21 Unknown History mcg-4.5 mcg/actuation aerosol inhaler (Symbicort) cyclobenzaprine 10 mg tablet 10 mg PO TID PRN muscle s pasms 05/09/21 Unknown History sildenafil 100 mg tablet 100 mg PO DAILY PRN Erectile 05/09/21 Unknown History Dysfunction atorvastatin 80 mg tablet 80 mg PO QHS #90 tabs Unknown Rx insulin aspart U-100 100 unit/mL 10 unit subcut TIDCM 12/12/24 Unknown History (3 mL) subcutaneous pen (Novolog FlexPen U-100 Insulin aspart) insulin glargine 100 unit/mL (3 10 unit subcut QPM 09/18 Unknown History mL) subcutaneous pen (Lantus Solostar U-100 Insulin) magnesium hydroxide 400 mg/5 mL 5 ml PO DAILY PRN cons tipation 05/04/25 05/03/25 History oral suspension (Gentle Laxative (magnesium hydroxide)) ropinirole 1 mg tablet 1 mg PO DAILY 05/04/25 Unkno wn History Allergy/AdvReac Type Severity Reaction Status Date / Time No Known Allergies Allergy Verified 05/11/25 14:05 Family History Mother CVA (cerebral vascular accident) Surgical History Hx of appendectomy Social History (Updated 07/03/25 @ 23:[address] Johanne Evans MD) household members: none housing: apartment Smoking Status: Current some day smoker tobacco type: cigarettes and cigars alcohol intake: never substance use type: does not use ROS ROS ED Constitutional Constitutional ED: Denies chills or fever(s) Eyes Eyes: Denies blurry vision or change in vision ENT ENT ED: Denies rhinorrhea or sore throat Cardiovascular Cardiovascular: Denies chest pain or palpitations Respiratory/Chest Respiratory/Chest: Reports cough; Denies dyspnea Gastrointestinal Gastrointestinal: Denies nausea or vomiting Genitourinary Genitourinary ED: Denies dysuria or hematuria Musculoskeletal Musculoskeletal: Reports back pain; Denies neck pain Integumentary Denies abscess or rash Neurologic Neurologic: Denies headache(s) or weakness Allergic/Immunologic Allergic/Immunologic ED: Denies mouth swelling or urticaria EXAM Physical Exam Const Vital Signs: 07/03/25 19:10 07/03/25 21:09 Temperature 98.7 F Temperature Source Oral Pulse Rate 113 H 116 H Respiratory Rate 18 20 H Blood Pressure 185/93 H 160/98 H Blood Pressure Mean 123 118 Pulse Ox 95 93 Oxygen Delivery Method Room Air Room Air Positive well nourished and well developed Constitutional Narrative: BMI is 18.9. General Appearance ED: well developed and NAD HEENT Reports moist mucous membranes Resp normal respiratory effort and clear to auscultation bilaterally Cardio regular rhythm Rate: tachycardic GI non-tender Palpation: soft Extremity Extremity Narrative: There is shortening sternal rotation of the right lower extremity. There is tenderness to palpation over the right hip. There is limited range of motion of the right hip especially with internal and external rotation. There is pain with logrolling of the right lower extremity. Pedal pulses are equal bilaterally. Sensation was intact to light touch bilaterally in the lower extremities. Strength is 5/5 bilaterally in the lower extremities. Neuro oriented x3, CN's II-XII intact bilaterally, moves all extremities and no sensory deficits noted Sensorium / Orientation: alert Motor Exam: strength 5/5 throughout Psych mental status grossly normal MDM MDM MDM Narrative Medical decision making narrative: Differential diagnosis includes hip fracture, contusion, sprain, and lumbosacral strain. X-rays of the right hip will be obtained to assess for fracture. History & Record Review Additional record(s) reviewed:: Prior inpatient record, Prior ED visit and Prior labs Lab Data Attestation: I reviewed the patient's lab results. Lab results narrative: CBC was reviewed. There is a mild leukocytosis of 12.7. There is a mild anemia with a hemoglobin of 8.4 and hematocrit 27.9. Platelets were normal. PT with INR and PTT were reviewed. Pro time was 15.5 and INR is 1.2. PTT was 22.7. B asic metabolic profile was reviewed. Glucose was mildly elevated at 204. The remainder is within normal limits. Urinalysis was reviewed. There is no evidence of urinary tract infection or hematuria. Labs: Laboratory Results - last 24 hr 07/03/25 07/03/25 21:43 21:46 WBC 12.7 H RBC 3.95 L Hgb 8.4 L Hct 27.9 L MCV 70.6 L MCH 21.3 L MCHC 30.1 L RDW Std Deviation 56.9 H RDW Coeff of Tiffany 22.6 H Plt Count 300 MPV 9.1 Immature Gran % (Auto) 0.500 Neut % (Auto) 90.1 H Lymph % (Auto) 6.3 L [place] % (Auto) 2.8 Eos % (Auto) 0.1 Baso % (Auto) 0.2 Absolute Neuts (auto) 11.4 H Absolute Lymphs (auto) 0.80 L Nucleated RBC % 0 Differential Comment SCANNED RBC Morphology RARE Hypochromasia 1+ Anisocytosis 1+ Microcytosis 1+ [place] Cells RARE PT 15.5 H INR 1.2 APTT 22.7 L Sodium 133 Potassium 4.8 Chloride 100 Carbon Dioxide 20.2 L Anion Gap 13 BUN 14 Creatinine 0.86 Estim Creat Clear Calc 66.03 Est GFR (MDRD) Non-Af 89 BUN/Creatinine Ratio 16.8 Glucose 204 H Calcium 9.7 Phosphorus 2.5 L Magnesium 1.9 NT pro BNP II 372 Urine Color Yellow Urine Clarity Clear Urine pH 6.0 Ur Specific [place] 1.010 Urine Protein 100 H Urine Glucose (UA) 100 H Urine Ketones Negative Urine Occult Blood 10 H Urine Nitrite Negative Urine Bilirubin Negative Urine Urobilinogen Normal Ur Leukocyte Esterase Negative Urine RBC 0-5 SEEN Urine WBC 0-5 SEEN Ur Squamous Epith Cells 0-5 SEEN Urine Bacteria RARE Hyaline Casts 0-5 SEEN Urine Mucus 0 SEEN Radiography Diagnostic Testing: Clinical Impression(s) from Imaging Studies Hip/Pelvis X-Ray 07/03/25 20:20 IMPRESSION: Fracture of the right greater trochanter, extending into the intertrochanteric line. Malignancy can not be excluded. Reading Location: [facility] Lower Extremity CT 07/03/25 21:54 IMPRESSION: Acute, moderately comminuted and impacted right intertrochanteric femoral fracture. No aggressive osseous lesions. Reading Location: [facility] X-rays of the right hip were obtained. There are 3 views. On my independent interpretation, there is an intertrochanteric fracture of the right hip. There is some mild displacement. Radiologist also interpreted the x-ray and agrees. CT scan of the right hip was obtained. There is comminuted and impacted right intertrochanteric fracture. There is no aggressive osseous lesion noted. This was interpreted by the radiologist and was also independently reviewed by myself. EKG Initial EKG: Attestation: I personally reviewed and interpreted this EKG as follows: Interpretation: Sinus Tachycardia (112) and Non-Specific ST Changes Comments: EKG was obtained. On my independent interpretation, shows sinus tachycardia with a rate of 112. CA interval was normal at 158 ms. QRS interval was normal at 76 ms. QTc interval is normal at 455 ms. [place] was normal. There are nonspecific ST-T wave changes noted. There are no acute abnormalities noted. Prior EKG tracings: available for review Prior: Unchanged (05/11/2025) Management Discussion w/another healthcare provider: Hospitalist and Call Centre Supervisor Treatment and Re-Evaluation Narrative: Patient was given IV fluids and morphine. Because of the hip fracture, medical screening labs will be obtained. EKG was obtained to assess for cardiac dysrhythmia and cardiac ischemia. CBC was obtained to assess for leukocytosis and anemia. Basic metabolic profile was obtained to assess for electrolyte abnormality and renal function. PT with INR and PTT were obtained to assess for coagulopathy. Urinalysis was obtained to assess for urinary tract infection or hematuria. Patient was advised of his findings. Case was discussed with Dr. Campbell from orthopedics. He will see the patient in consultation. Case will be discussed with the hospitalist for admission. Due to the x-ray report of a questionable malignancy cannot be excluded, Dr. Campbell requested CT scan of the hip be obtained to check for malignancy. This was ordered. There is no evidence of malignancy. Patient will be admitted here. Patient and family understand and are agreeable with the plan. All questions were answered. Discharge Plan Dx/Rx/DC Orders Clinical Impression: Closed intertrochanteric fracture of right hip, Cancer of right lung, Fall Disposition Disposition: Acute Care Hospital [facility] Discharge Date/Time: 07/03/25 23:37
--- OUTSIDE RECORDS SUMMARY | 2025-07-03 19:57 | XMS RPT_ITS | CCD ---
Author Organization [facility] Care Team Providers Care Examiner Rating Clerk Name Role Phone Dr. Steven Tejeda DO Emergency Provider Adithya FOOT CUTTER-CCarlene Primary Care Provider Dr. Steven Tejeda DO Attending Provider [phone]. Ike Dawson DO Emergency Provider Dr. Ike Dawson DO Attending Provider Dr. Monty Clarke MD Emergency Provider [phone] Stanley DO Admit Provider Dr. Lane Stanley DO Attending Provider Dr. Lane Stanley DO Other Provider Damian HERBERT, Dr. Cruz Attending Provider Damian HERBERT, Dr. Cruz Other Provider Lane Stanley Admitting Unavailable Lane Stanley Unavailable Lane Stanley Attending Unavailable Carlene Haji Primary Care Unavailable Anthony Salgado Attending Unavailable Anthony Salgado Consulting Unavailable Ike Dawson Attending Unavailable Adithya, Carlene N Primary Care Unavailable [facility] [place] Primary Care Unavailable César Short Attending Unavailable [facility] Primary [facility] Unavailable Juana Michaud Attending Unavailable Juvencio Shen Attending Unavailable [facility] [place] Primary Care Unavailable Lane Stanley Admitting Unavailable Anthony Salgado Attending Unavailable Lane Stanley Consulting Unavailable Adithya, Carlene N Primary Care Unavailable Steven Tejeda Attending Unavailable Adithya, Carlene Sonya Primary Care Unavailable Medications Current Medications Medication Drug Class(es) Dates Sig (Normalized) Sig (Original) cyclobenzaprine hydrochloride 10 mg oral tablet (4 sources) Muscle Relaxant Start: 05-09-2021 take 1 tablet by mouth three times daily as needed for muscle spasms Cyclobenzaprine 10 mg Tablet Active 10 mg PO THREE TIMES A DAY as needed for muscle spasms May 09, 2021 12:00am 3 ml insulin aspart, human 100 unt/ml pen injector (4 sources) Insulin Analog Start: 12-12-2024 Insulin Aspart U-100 (Novolog Flexpen U-100 Insulin) 100 unit/mL (3 mL) insulin pen Active 10 U SC 3 TIMES DAILY WITH MEALS December 12, 2024 1:00am Start: 12-12-2024 Insulin Aspart U-100 (Novolog Flexpen U-100 Insulin) 100 unit/mL (3 mL) insulin pen Active SC December 12, 2024 1:00am 3 ml insulin glargine 100 unt/ml pen injector (3 sources) Insulin Analog Start: 05-04-2025 Insulin Glargine (Lantus Solostar U-100 Insulin) 100 unit/mL (3 mL) insulin pen Active 10 U SC EVERY EVENING May 04, 2025 12:00am PT STATES USES 10-15U QHS Magnesium Hydroxide (3 sources) Start: 05-04-2025 take 1 mL by mouth once daily as needed for constipation Magnesium Hydroxide (Gentle Laxative (Mag Hydrox)) 400 mg/5 mL suspension Active 5 mL PO DAILY as needed for constipation May 04, 2025 12:00am rOPINIRole 1 mg oral tablet (3 sources) Nonergot Dopamine Agonist Start: 05-04-2025 take 1 tablet by mouth once daily Ropinirole 1 mg tablet Active 1 mg PO DAILY May 04, 2025 12:00am PT UNSURE OF STRENGTH sildenafil 100 mg oral tablet (4 sources) Phosphodiesterase 5 Inhibitor Start: 05-09-2021 take 1 tablet by mouth once daily as needed Sildenafil 100 mg Tablet Active 100 mg PO DAILY as needed for Erectile Dysfunction May 09, 2021 12:00am Completed/Discontinued Medications Medication Drug Class(es) Dates Sig (Normalized) Sig (Original) albuterol 2 UNITS (4 sources) Start: 05-09-2021 End: 05-04-2025 albuterol 2 UNITS Discontinued 2 NMA NASAL Q4H as needed for SOB May 09, 2021 12:00am May 04, 2025 11:33am Start: 05-09-2021 albuterol 2 UN ITS Active 2 NMA NASAL Q4H as needed for SOB May 09, 2021 12:00am amLODIPine 5 mg oral tablet (8 sources) Dihydropyridine Calcium Channel Juvenal Start: 05-09-2021 End: 12-12-2024 take 1 tablet by mouth once daily Amlodipine 5 mg tablet Discontinued 5 mg PO DAILY June 13, 2024 12:00am December 12, 2024 12:10pm aspirin 81 mg oral tablet (8 sources) Platelet Aggregation Inhibitor, Nonsteroidal Anti-inflammatory Drug [...] 2021 12:00am atorvastatin 80 mg oral tablet (12 sources) HMG-CoA Reductase Inhibitor Start: 05-12-2021 End: 12-12-2024 take 1 tablet by mouth once daily Atorvastatin 80 mg tablet Discontinued 80 mg PO DAILY June 13, 2024 12:00am December 12, 2024 12:10pm Start: 05-09-2021 End: 05-12-2021 take 1 tablet by mouth at bedtime Atorvastatin 20 mg Tablet Discontinued 20 mg PO AT BEDTIME May 09, 2021 12:00am May 12, 2021 10:09am Budesonide-Formoterol (8 sources) Corticosteroid, beta2-Adrenergic Agonist Start: 06-13-2024 End: 12-12-2024 Budesonide-Formoterol (Symbicort) 80-4.5 mcg/actuation HFA aerosol inhaler Discontinued 2 NMA INHALATION TWICE A DAY 10.2 June 13, 2024 12:00am December 12, 2024 12:10pm Start: 05-09-2021 Budesonide-For moterol (Symbicort) 80-4.5 mcg/actuation Hfa Aerosol Inhaler Active 2 NMA INHALATION TWICE A DAY May 09, 2021 12:00am diazePAM 2 mg oral tablet (4 sources) Benzodiazepine Start: 04-24-2025 End: 05-11-2025 take 1 tablet by mouth three times daily as needed for dizziness Diazepam (Valium) 2 mg tablet Discontinued 2 mg PO THREE TIMES A DAY as needed for vertigo/dizziness 15 April 24, 2025 12:00am May 11, 2025 6:40pm gabapentin 300 mg oral capsule (8 sources) Anti-epileptic Agent Start: 02-24-2015 End: 12-12-2024 take 1 capsule by mouth three times daily Gabapentin 300 mg capsule Discontinued 300 mg PO THREE TIMES A DAY June 13, 2024 12:00am December 12, 2024 12:11pm glipiZIDE 5 mg oral tablet (8 sources) Sulfonylurea Start: 06-13-2024 End: 12-12-2024 take [...] 2024 12:11pm ibuprofen 800 mg oral tablet (3 sources) Nonsteroidal Anti-inflammatory Drug Start: 05-04-2025 End: 05-11-2025 take 1 tablet by mouth every eight hours Ibuprofen (Ibu) 800 mg tablet Discontinued 800 mg PO Q8H May 04, 2025 12:00am May 11, 2025 6:40pm losartan potassium 50 mg oral tablet (8 sources) Angiotensin 2 Receptor Juvenal Start: 05-09-2021 End: 05-11-2025 take 1 tablet by mouth once daily Losartan 50 mg tablet Discontinued 50 mg PO DAILY June 13, 2024 12:00am December 12, 2024 12:11pm mecobalamin 1 mg chewable tablet (4 sources) Start: 05-09-2021 End: 05-04-2025 Mecobalamin (Vitamin B12) 1,000 mcg Tablet,Chewable Discontinued 500 ug PO DAILY May 09, 2021 12:00am May 04, 2025 11:36am metFORMIN hydrochloride 1000 mg oral tablet (8 sources) Biguanide Start: 06-13-2024 End: 12-12-2024 take 1 tablet by mouth twice daily Metformin 1,000 mg tablet Discontinued 1000 mg PO TWICE A DAY 60 June 13, 2024 12:00am December 12, 2024 12:12pm Start: 05-09-2021 End: 12-12-2024 take 1 tablet by mouth once daily Metformin 1,000 mg Tablet Extended Release 24hr Discontinued 2000 mg PO DAILY May 09, 2021 12:00am December 12, 2024 12:12pm traMADol hydrochloride 50 mg oral tablet (3 sources) Opioid Agonist Start: 05-04-2025 End: 05-11-2025 take 1 tablet by mouth every six hours as needed for pain Tramadol 50 mg tablet Discontinued 50 mg PO EVERY 6 HOURS as needed for pain May 04, 2025 12:00am May 11, 2025 6:42pm traZODone hydrochloride 50 mg oral tablet (4 sources) Serotonin Reuptake Inhibitor Start: 05-09-2021 End: 05-04-2025 Trazodone 50 mg Tablet Discontinued 25 mg PO AT BEDTIME May 09, 2021 12:00am May 04, 2025 11:34am Vitamin E 200 unit Tablet (4 sources) Start: 05-09-2021 End: 05-04-2025 take 1 tablet by mouth once daily Vitamin E 200 unit Tablet Discontinued 200 U PO DAILY May 09, 2021 12:00am May 04, 2025 11:37am Start: 05-09-2021 take 1 tablet by mouth once da samara Vitamin E 200 unit Tablet Active 200 U PO DAILY May 09, 2021 12:00am Problems Active Problems Problem Classification Problem Date Documented Date Episodic/Chronic Acute cerebrovascular disease (4 sources) Cerebrovascular accident; Translations: [Cerebral infarction, unspecified] 05-11-2021 Chronic Anxiety disorders (5 sources) Anxiety; Translations: [Anxiety disorder, unspecified] Onset: 01-05-2025 12-20-2024 Chronic Cancer of bronchus; lung (8 sources) Malignant tumor of lung; Translations: [Malignant neoplasm of unspecified part of right bronchus or lung] Onset: 05-18-2025 04-23-2025 Chronic Cardiac dysrhythmias (4 sources) Nonsustained ventricular tachycardia ; Translations: [Nonsustained ventricular tachycardia] 05-20-2021 Chronic Cardiac dysrhythmias (4 sources) ECG: sinus tachycardia; Translations: [Tachycardia, unspecified] 05-11-2025 Episodic Conditions associated with dizziness or vertigo (8 sources) Dizziness; Translations: [Dizziness and giddiness] Onset: 04-27-2025 04-23-2025 Episodic Deficiency and other anemia (4 sources) Anemia; Translations: [Anemia, unspecified] 04-23-2025 Episodic Deficiency and other anemia (4 sources) Chronic anemia; Translations: [Anemia, unspecified] 05-11-2025 Episodic Deficiency and other anemia (4 sources) Microcytic anemia; Translations: [Iron deficiency anemia, unspecified] 05-11-2025 Episodic Deficiency and other anemia (1 source) Anemia, unspecified; Translations: [Anemia, unspecified] Onset: 05-18-2025 Episodic Diabetes mellitus with complications (5 sources) Hyperglycemia due to diabetes mellitus; Translations: [Type 2 diabetes mellitus with hyperglycemia] Onset: 06-25-2024 12-20-2024 Chronic Diabetes mellitus without complication (4 sources) Diabetes mellitus; Translations: [Type 2 diabetes mellitus without complications] 2024 Chronic Diabetes mellitus without complication (4 sources) Hyperglycemia; Translations: [Hyperglycemia, unspecified] 06-21-2024 Episodic E Codes: Fall (3 sources) Fall; Translations: [Unspecified fall, initial encounter] 05-04-2025 Episodic Nonspecific chest pain (4 sources) Chest pain; Translations: [Chest pain, unspecified] 05-20-2021 Episodic Other injuries and conditions due to external causes (3 sources) Closed injury of head; Translations: [Unspecified injury of head, initial encounter] 05-04-2025 Episodic Other injuries and conditions due to external causes (1 source) Unspecified injury of head, initial encounter; Translations: [Unspecified injury of head, initial encounter] Onset: 05-06-2025 Episodic Other lower respiratory disease (4 sources) Dyspnea on exertion; Translations: [Other forms of dyspnea] 05-11-2025 Episodic Other nervous system disorders (4 sources) Neuropathy; Translations: [Polyneuropathy, unspecified] 06-21-2024 Chronic Other nervous system disorders (4 sources) H/O: Disorder; Translations: [Personal history of other diseases of the nervous system and sense organs] 12-20-2024 Episodic Other nutritional; endocrine; and metabolic disorders (4 sources) Hypercalcemia; Translations: [Hypercalcemia] 05-11-2025 Chronic Other nutritional; endocrine; and metabolic disorders (1 source) Hypercalcemia; Translations: [Hypercalcemia] Onset: 05-18-2025 Chronic Other screening for suspected conditions (not mental disorders or infectious disease) (4 sources) Raised cardiac enzyme or marker; Translations: [Other specified abnormal findings of blood chemistry] 05-11-2025 Episodic Pneumonia (except that caused by tuberculosis or sexually transmitted disease) (5 sources) Postobstructive pneumonia; Translations: [Pneumonia, unspecified organism] Onset: 05-20-2025 05-11-2025 Episodic Sprains and strains (3 sources) Strain of neck muscle; Translations: [Strain of muscle, fascia and tendon at neck level, initial encounter] 05-04-2025 Episodic Superficial injury; contusion (6 sources) Contusion of chest; Translations: [Contusion of unspecified front wall of thorax, initial encounter] 05-04-2025 Episodic Past or Other Problems Problem Classification Problem Date Documented Da te Episodic/Chronic Abdominal pain (9 sources) Abdominal pain; Translations: [Unspecified abdominal pain] Onset: 06-16-2024 2024 Episodic Results Test Name Value Interpretation Reference Range Facility Basic Metabolic Profile (BMP )on 05-14-2025 BUN Normal - [facility] Comment on above: Result Comment: Canc elled via OM: Order cancelled - Patient discharged Performed By: #### L 100.0100, L500.2500 #### [facility] [address] [facility] [address] BUN/CRE Normal - [facility] Comment on above: Result Comment: Canc elled via OM: Order cancelled - Patient discharged Performed By: #### L 100.0100, L500.2500 #### [facility] [address] [place], [address] Calcium Normal 7.6-11.0 [facility] Comment on above: Result Comment: Canc elled via OM: Order cancelled - Patient discharged Performed By: #### L 100.0100, L500.2500 #### [facility] [address] [place], [address] CL Normal 98-108 [facility] Comment on above: Result Comment: Canc elled via OM: Order cancelled - Patient discharged Performed By: #### L 100.0100, L500.2500 #### [facility] [address] [place], [address] CO2 Normal 21.0-32.0 [facility] Comment on above: Result Comment: Canc elled via OM: Order cancelled - Patient discharged Performed By: #### L 100.0100, L500.2500 #### [facility] [address] [place], [address] CREAT,SERUM Normal 0.70-1.20 [facility] Comment on above: Result Comment: Canc elled via OM: Order cancelled - Patient discharged Performed By: #### L 100.0100, L500.2500 #### [facility] [address] [place], [address] eGFR Normal >60 [facility] Comment on above: Result Comment: Canc elled via OM: Order cancelled - Patient discharged Performed By: #### L 100.0100, L500.2500 #### [facility] [address] [place], [address] GAP Normal 5-15 [facility] Comment on above: Result Comment: Canc elled via OM: Order cancelled - Patient discharged Performed By: #### L 100.0100, L500.2500 #### [facility] [address] [place], [address] GLU Normal 70-99 [facility] Comment on above: Result Comment: Canc elled via OM: Order cancelled - Patient discharged Performed By: #### L 100.0100, L500.2500 #### [facility] [address] [place], [address] Potassium Normal 3.3-5.1 [facility] Comment on above: Result Comment: Canc elled via OM: Order cancelled - Patient discharged Performed By: #### L 100.0100, L500.2500 #### [facility] [address] [place], [address] Basic Metabolic Profile (BMP) Normal 133-145 [facility] Comment on above: Result Comment: Canc elled via OM: Order cancelled - Patient discharged Performed By: #### L 100.0100, L500.2500 #### [facility] [address] [place], [address] CBC W/Diff, Automatedon 06-2 0-2024 Absolute Neut Normal 2.0-7.7 [facility] Comment on above: Result Comment: Canc elled via OM: Order cancelled - Patient discharged Performed By: #### L 100.0100, L500.2500 #### [facility] [address] [place], [address] HCT Normal 40-54 [facility] Comment on above: Result Comment: Canc elled via OM: Order cancelled - Patient discharged Performed By: #### L 100.0100, L500.2500 #### [facility] [address] [place], [address] HGB Normal 13.0-16.5 [facility] Comment on above: Result Comment: Canc elled via OM: Order cancelled - Patient discharged Performed By: #### L 100.0100, L500.2500 #### [facility] [address] [place], [address] MCH Normal 27.0-32.0 [facility] Comment on above: Result Comment: Canc elled via OM: Order cancelled - Patient discharged Performed By: #### L 100.0100, L500.2500 #### [facility] [address] [place], [address] MCHC Normal 32-36 [facility] Comment on above: Result Comment: Canc elled via OM: Order cancelled - Patient discharged Performed By: #### L 100.0100, L500.2500 #### [facility] [address] [place], [address] MCV Normal 80-94 [facility] Comment on above: Result Comment: Canc elled via OM: Order cancelled - Patient discharged Performed By: #### L 100.0100, L500.2500 #### [facility] [address] [place], [address] NEUT% Normal 47-70 [facility] Comment on above: Result Comment: Canc elled via OM: Order cancelled - Patient discharged Performed By: #### L 100.0100, L500.2500 #### [facility] [address] [place], [address] PLT Normal 150-450 [facility] Comment on above: Result Comment: Canc elled via OM: Order cancelled - Patient discharged Performed By: #### L 100.0100, L500.2500 #### [facility] [address] [place], [address] RBC Normal 4.6-6.2 [facility] Comment on above: Result Comment: Canc elled via OM: Order cancelled - Patient discharged Performed By: #### L 100.0100, L500.2500 #### [facility] [address] [place], [address] RDW CV Normal 11.6-14.6 [facility] Comment on above: Result Comment: Canc elled via OM: Order cancelled - Patient discharged Performed By: #### L 100.0100, L500.2500 #### [facility] [address] [place], [address] RDW SD Normal 35.1-43.9 [facility] Comment on above: Result Comment: Canc elled via OM: Order cancelled - Patient discharged Performed By: #### L 100.0100, L500.2500 #### [facility] [address] [place], [address] WBC Normal 4.4-11.0 [facility] Comment on above: Result Comment: Canc elled via OM: Order cancelled - Patient discharged Performed By: #### L 100.0100, L500.2500 #### [facility] [address] [place], [address] Absolute lymphocyte countOrd ered By: Anthony Salgado on 05-13-2025 Lymphocytes Auto (Unsp spec) [#/Vol] 1.93 10*3/uL 0.83-4.51 [facility] Absolute neutrophil countOrd ered By: Anthonypiedad Salgado on 05-13-2025 Neutrophils (Bld) [#/Vol] 8.9 10*3/uL High 2.0-7.7 [facility] Anion gap in Serum or Plasma Ordered By: Anthony Salgado on 05-13-2025 Anion gap [Moles/Vol] 11 mmol/L 5-15 [facility] Automated lymphocyte count a s percentage of total leukocytesOrdered By: Anthony Salgado on 05-13-2025 Lymphocytes/100 WBC Auto (Unsp spec) 16.4 % Low 19- [facility] BUN/creatinine ratioOrdered By: Anthony Salgado on 05-13-2025 Urea nitrogen/Creatinine [Mass ratio] 9.2 mg/mg Low 10-20 [facility] Basic Metabolic Profile (BMP )on 05-13-2025 BUN/CRE 9.2 RATIO Low 10-20 [facility] Comment on above: Performed By: #### L 100.0100, L500.4050 #### [facility] [address] [place], [address] Calcium [Mass/Vol] 9.7 mg/dL Normal 7.6-11.0 [facility] Comment on above: Performed By: #### L 100.0100, L500.4050 #### [facility] [address] [place], [address] Chloride [Moles/Vol] 104 mmol/L Normal 98-108 [facility] Comment on above: Performed By: #### L 100.0100, L500.4050 #### [facility] [address] [place], [address] CO2 [Moles/Vol] 22.8 mmol/L Normal 21.0-32.0 [facility] Comment on above: Performed By: #### L 100.0100, L500.4050 #### [facility] [address] [place], [address] Creatinine [Mass/Vol] 1.07 mg/dL Normal 0.70-1.20 [facility] Comment on above: Performed By: #### L 100.0100, L500.4050 #### [facility] [address] [place], [address] ECRCL 53.58 ml/min Normal 50-250 [facility] Comment on above: Performed By: #### L 100.0100, L500.4050 #### [facility] [address] [place], [address] GAP 11 Normal 5-15 [facility] Comment on above: Performed By: #### L 100.0100, L500.4050 #### [facility] [address] [place], [address] GFR/1.73 sq M.predicted among non-blacks MDRD (S/P/Bld) [Vol rate/Area] 72 mL/min/{1.73_m2} Normal >60 [facility] Comment on above: Result Comment: mL/m in/1.73m2 CKD-EPI Creatinine Equation (2020) Performed By: #### L 100.0100, L500.4050 #### [facility] [address] [place], [address] Glucose [Mass/Vol] 207 mg/dL High 70-99 [facility] Comment on above: Performed By: #### L 100.0100, L500.4050 #### [facility] [address] [place], [address] Potassium [Moles/Vol] 3.2 mmol/L Low 3.3-5.1 [facility] Comment on above: Performed By: #### L 100.0100, L500.4050 #### [facility] [address] [place], [address] Sodium [Moles/Vol] 137 mmol/L Normal 133-145 [facility] Comment on above: Performed By: #### L 100.0100, L500.4050 #### [facility] [address] [place], [address] Urea nitrogen [Mass/Vol] 10 mg/dL Normal 4-19 [facility] Comment on above: Performed By: #### L 100.0100, L500.4050 #### [facility] [address] [place], [address] Basophil percentageOrdered B y: Anthonypiedad Salgado on 05-13-2025 Basophils/100 WBC (Bld) 0.2 % 0-1 [facility] Bedside Glucoseon 05-13-2025 FINGERSTICK GLU 325 mg/dL High 74-106 [facility] Comment on above: Result Comment: BELLA GEMENT OF PATIENT CARE PER NURSING PROTOCOL Performed By: #### L 501.080 #### [facility] [address] [place], [address] FINGERSTICK GLU 190 mg/dL High 74-106 [facility] Comment on above: Result Comment: BELLA GEMENT OF PATIENT CARE PER NURSING PROTOCOL Performed By: #### L 501.080 #### [facility] [address] [place], [address] CBC W/Diff, Automatedon 04-25 Absolute Lymph 1.93 X10 3/uL Normal 0.83-4.51 [facility] Comment on above: Performed By: #### L 400.0001 #### [facility] [address] [place], [address] Absolute Neut 8.9 X10 3/uL High 2.0-7.7 [facility] Comment on above: Performed By: #### L 400.0001 #### [facility] [address] [place], [address] Basophils/100 WBC (Bld) 0.2 % Normal 0-1 [facility] Comment on above: Performed By: #### L 400.0001 #### [facility] [address] [place], [address] Eosinophils/100 WBC (Bld) 0.9 % Normal 0-5 [facility] Comment on above: Performed By: #### L 400.0001 #### [facility] [address] [place], [address] Erythrocyte distribution width (RBC) [Ratio] 18.4 % High 11.6-14.6 [facility] Comment on above: Performed By: #### L 400.0001 #### [facility] [address] [place], [address] Hematocrit (Bld) [Volume fraction] 25.4 % Low 40-54 [facility] Comment on above: Performed By: #### L 400.0001 #### [facility] [address] [place], [address] Hemoglobin (Bld) [Mass/Vol] 7.7 g/dL Low 13.0-16.5 [facility] Comment on above: Performed By: #### L 400.0001 #### [facility] [address] [place], [address] IG% 0.300 Normal 0.0-0.9 [facility] Comment on above: Result Comment: IG% - Immature Granulocytes (promyelocytes, myelocytes and metamyelocytes) > 1% indicates that a LEFT SHIFT is Present. Performed By: #### L 400.0001 #### [facility] [address] [place], [address] Lymphocytes/100 WBC (Bld) 16.4 % Low 19-41 [facility] Comment on above: Performed By: #### L 400.0001 #### [facility] [address] [place], [address] MCH (RBC) [Entitic mass] 19.7 pg Low 27.0-32.0 [facility] Comment on above: Performed By: #### L 400.0001 #### [facility] [address] [place], [address] MCHC (RBC) [Mass/Vol] 30.3 g/dL Low 32-36 [facility] Comment on above: Performed By: #### L 400.0001 #### [facility] [address] [place], [address] MCV (RBC) [Entitic vol] 65.0 fL Low 80-94 [facility] Comment on above: Performed By: #### L 400.0001 #### [facility] [address] [place], [address] Monocytes/100 WBC (Bld) 6.5 % Normal 0-10 [facility] Comment on above: Performed By: #### L 400.0001 #### [facility] [address] [place], [address] Neutrophils/100 WBC (Bld) 75.7 % High 47-70 [facility] Comment on above: Performed By: #### L 400.0001 #### [facility] [address] [place], [address] Nucleated RBC (Bld) [#/Vol] 0 10*3/uL Normal 0-5 [facility] Comment on above: Performed By: #### L 400.0001 #### [facility] [address] [place], [address] Platelet mean volume (Bld) [Entitic vol] 10.0 fL Normal 6.2-12.0 [facility] Comment on above: Performed By: #### L 400.0001 #### [facility] [address] [place], [address] Platelets (Bld) [#/Vol] 358 10*3/uL Normal 150-450 [facility] Comment on above: Performed By: #### L 400.0001 #### [facility] [address] [place], [address] RBC (Bld) [#/Vol] 3.91 10*6/uL Low 4.6-6.2 [facility] Comment on above: Performed By: #### L 400.0001 #### [facility] [address] [place], [address] RDW SD 43.1 fl Normal 35.1-43.9 [facility] Comment on above: Performed By: #### L 400.0001 #### [facility] [address] [place], [address] WBC (Bld) [#/Vol] 11.8 10*3/uL High 4.4-11.0 [facility] Comment on above: Performed By: #### L 400.0001 #### [facility] [address] [place], [address] Carbon dioxide, total [Moles /volume] in Central venous bloodOrdered By: Anthony Salgado on 05-13-2025 CO2 [Moles/Vol] 22.8 mmol/L 21.0-32.0 [facility] Chloride assayOrdered By: Venessa Salgado on 05-13-2025 Chloride [Moles/Vol] 104 mmol/L 98-108 [facility] Eosinophil percentageOrdered By: Anthony Salgado on 05-13-2025 Eosinophils/100 WBC (Bld) 0.9 % 0-5 [facility] Erythrocyte distribution wid th ratioOrdered By: Anthony Salgado on 05-13-2025 Erythrocyte distribution width (RBC) [Ratio] 18.4 % High 11.6-14.6 [facility] Erythrocyte distribution wid th standard deviationOrdered By: Anthony Salgado on 05-13-2025 Erythrocyte distribution width (RBC) [Ratio] 43.1 fl 35.1-43.9 [facility] Glomerular filtration rate ( GFR) estimation/1.73 sq m using serum, plasma, or whole bOrdered By: Anthony Salgado on 05-13-2025 GFR/1.73 sq M.predicted among non-blacks MDRD (S/P/Bld) [Vol rate/Area] 72 mL/min/{1.73_m2} >60 [facility] Comment on above: mL/min/1.73m2 CKD-EP I Creatinine Equation (2020) Glucose measurement at [facility] deOrdered By: Anthony Salgado on 05-13-2025 Glucose [Mass/Vol] 325 mg/dL High 74-106 [facility] Comment on above: MANAGEMENT OF PATIEN T CARE PER NURSING PROTOCOL Hematocrit Auto (Bld) [Volum e fraction]Ordered By: Anthony Salgado on 05-13-2025 Hematocrit (Bld) [Volume fraction] 25.4 % Low 40-54 [facility] Hemoglobin measurementOrdere d By: Anthony Salgado on 05-13-2025 Hemoglobin (Bld) [Mass/Vol] 7.7 g/dL Low 13.0-16.5 [facility] Immature granulocytes/100 WB C Auto (Bld)Ordered By: Anthony Salgado on 05-13-2025 Immature granulocytes/100 WBC (Bld) 0.300 % 0.0-0.9 [facility] Comment on above: IG% - Immature Granu locytes (promyelocytes, myelocytes and metamyelocytes) > 1% indicates that a LEFT SHIFT is Present. MCV (mean corpuscular volume ) determinationOrdered By: Anthony Salgado on 05-13-2025 MCV (RBC) [Entitic vol] 65.0 fL Low 80-94 [facility] Mean corpuscular hemoglobin (MCH) determinationOrdered By: Anthony Salgado on 05-13-2025 MCH (RBC) [Entitic mass] 19.7 pg Low 27.0-32.0 [facility] Mean corpuscular hemoglobin concentration (MCHC) determinationOrdered By: Anthony Salgado on 05-13-2025 MCHC (RBC) [Mass/Vol] 30.3 g/dL Low 32-36 [facility] Mean platelet volume determi nationOrdered By: Anthony Salgado on 05-13-2025 Platelet mean volume (Bld) [Entitic vol] 10.0 fL 6.2-12.0 [facility] Monocyte percentageOrdered B y: Anthony Salgado on 05-13-2025 Monocytes/100 WBC (Bld) 6.5 % 0-10 [facility] Neutrophil percentageOrdered By: Anthony Salgado on 05-13-2025 Neutrophils/100 WBC (Bld) 75.7 % High 47-70 [facility] Nucleated red blood cell per centageOrdered By: Anthony Salgado on 05-13-2025 Nucleated RBC/100 WBC (Bld) [Ratio] 0 % 0-5 [facility] Platelet countOrdered By: Venessa Salgado on 05-13-2025 Platelets (Bld) [#/Vol] 358 10*3/uL 150-450 [facility] Potassium measurement (mass/ volume)Ordered By: Anthony Salgado on 05-13-2025 Potassium (Unsp spec) [Mass/Vol] 3.2 mmol/L Low 3.3-5.1 [facility] RBC Auto (Bld) [#/Vol]Ordere d By: Anthony Salgado on 05-13-2025 RBC (Bld) [#/Vol] 3.91 10*6/uL Low 4.6-6.2 [facility] Serum creatinine measurement (mass/volume)Ordered By: Anthony Salgado on 05-13-2025 Creatinine [Mass/Vol] 1.07 mg/dL 0.70-1.20 [facility] Serum glucose measurement (m ass/volume)Ordered By: Anthony Salgado on 05-13-2025 Glucose [Mass/Vol] 207 mg/dL High 70-99 [facility] Serum or plasma calcium ivania urement (mass/volume)Ordered By: Anthony Salgado on 05-13-2025 Calcium [Mass/Vol] 9.7 mg/dL 7.6-11.0 [facility] Serum or plasma urea nitroge n measurement (mass/volume)Ordered By: Anthony Salgado on 05-13-2025 Urea nitrogen [Mass/Vol] 10 mg/dL 4-19 [facility] Sodium levelOrdered By: J Luis Salgado on 05-13-2025 Sodium [Moles/Vol] 137 mmol/L 133-145 [facility] Trough vancomycin levelOrder ed By: Lane Stanley on 05-13-2025 Vancomycin trough [Mass/Vol] 8.6 ug/mL 5.0-15.0 [facility] Comment on above: Recommended goal tro ugh ranges are generally 10-15 mcg/ml for less severe/complicated infections such as cellulitis or UTI and 15-20 mcg/ml for more severe/complicated infections such as bacteremia/sepsis, osteomyelitis, pneumonia or meningitis. Goal trough ranges should take into account indication, patient-specific factors and organism RODRIGUEZ.VANCOMYCIN STANDARED DRUG THERAPY TROUGH LEVEL: 5.0 - 15.0 mg/L VANCOMYCIN HIGH INTENSITY THERAPY TROUGH LEVEL: 15.0 - 20.0 mg/L High Intensity therapy recommended for serious lifethreatening infections include:- Rjsbgrmryb-Muuatukwoiqz-Sbycpdxer (Ventilator/Healtcare Associated)-Sepsis PLEASE CONTACT PHARMACY SERVICES (#[id number]) FOR INTERPRETATIONOF RESULTS. Vancomycin, Trough Levelon 0 05-13-2025 VANCO, TROUGH 8.6 ug/mL Normal 5.0-15.0 [facility] Comment on above: Order Comment: CLEAN CATCH Result Comment: Jose A mmended goal trough ranges are generally 10-15 mcg/ml for less severe/complicated infections such as cellulitis or UTI and 15-20 mcg/ml for more severe/complicated infections such as bacteremia/sepsis, osteomyelitis, pneumonia or meningitis. Goal trough ranges should take into account indication, patient-specific factors and organism RODRIGUEZ. VANCOMYCIN STANDARED DRUG THERAPY TROUGH LEVEL: 5.0 - 15.0 mg/L VANCOMYCIN HIGH INTENSITY THERAPY TROUGH LEVEL: 15.0 - 20.0 mg/L High Intensity therapy recommended for serious life threatening infections include: - Meningitis -Endocarditis -Pneumonia (Ventilator/Healtcare Associated) -Sepsis PLEASE CONTACT PHARMACY SERVICES (#[id number]) FOR INTERPRETATION OF RESULTS. Performed By: #### L 400.0001 #### [facility] [address] [place], [address] White blood cell (WBC) count Ordered By: Anthony Salgado on 05-13-2025 WBC (Bld) [#/Vol] 11.8 10*3/uL High 4.4-11.0 [facility] Basic Metabolic Profile (BMP )on 05-12-2025 BUN/CRE 10.8 RATIO Normal 10-20 [facility] Comment on above: Performed By: #### L 100.0100, L500.4050 #### [facility] [address] [place], [address] Calcium [Mass/Vol] 10.3 mg/dL Normal 7.6-11.0 [facility] Comment on above: Performed By: #### L 100.0100, L500.4050 #### [facility] [address] [place], [address] Chloride [Moles/Vol] 103 mmol/L Normal 98-108 [facility] Comment on above: Performed By: #### L 100.0100, L500.4050 #### [facility] [address] [place], [address] CO2 [Moles/Vol] 23.7 mmol/L Normal 21.0-32.0 [facility] Comment on above: Performed By: #### L 100.0100, L500.4050 #### [facility] [address] [place], [address] Creatinine [Mass/Vol] 0.92 mg/dL Normal 0.70-1.20 [facility] Comment on above: Performed By: #### L 100.0100, L500.4050 #### [facility] [address] [place], [address] ECRCL 62.32 ml/min Normal 50-250 [facility] Comment on above: Performed By: #### L 100.0100, L500.4050 #### [facility] [address] [place], [address] GAP 11 Normal 5-15 [facility] Comment on above: Performed By: #### L 100.0100, L500.4050 #### [facility] [address] [place], [address] GFR/1.73 sq M.predicted among non-blacks MDRD (S/P/Bld) [Vol rate/Area] 87 mL/min/{1.73_m2} Normal >60 [facility] Comment on above: Result Comment: mL/m in/1.73m2 CKD-EPI Creatinine Equation (2020) Performed By: #### L 100.0100, L500.4050 #### [facility] [address] [place], [address] Glucose [Mass/Vol] 159 mg/dL High 70-99 [facility] Comment on above: Performed By: #### L 100.0100, L500.4050 #### [facility] [address] [place], [address] Potassium [Moles/Vol] 3.2 mmol/L Low 3.3-5.1 [facility] Comment on above: Performed By: #### L 100.0100, L500.4050 #### [facility] [address] [place], [address] Sodium [Moles/Vol] 138 mmol/L Normal 133-145 [facility] Comment on above: Performed By: #### L 100.0100, L500.4050 #### [facility] [address] [place], [address] Urea nitrogen [Mass/Vol] 10 mg/dL Normal 4-19 [facility] Comment on above: Performed By: #### L 100.0100, L500.4050 #### [facility] [address] [place], [address] Bedside Glucoseon 05-12-2025 FINGERSTICK GLU 330 mg/dL High 74-106 [facility] Comment on above: Result Comment: BELLA GEMENT OF PATIENT CARE PER NURSING PROTOCOL Performed By: #### L 400.0001 #### [facility] [address] [place], [address] FINGERSTICK GLU 278 mg/dL High [facility]106 [facility] Comment on above: Result Comment: BELLA GEMENT OF PATIENT CARE PER NURSING PROTOCOL Performed By: #### L 100.0100, L500.4050 #### [facility] [address] [place], [address] FINGERSTICK GLU 310 mg/dL High 74-106 [facility] Comment on above: Result Comment: BELLA GEMENT OF PATIENT CARE PER NURSING PROTOCOL Performed By: #### L 100.0100, L500.4050 #### [facility] [address] [place], [address] FINGERSTICK GLU 160 mg/dL High -106 [facility] Comment on above: Result Comment: BELLA GEMENT OF PATIENT CARE PER NURSING PROTOCOL Performed By: #### L 501.080 ####[facility] [address] [place], [address] FINGERSTICK GLU 242 mg/dL High [facility]106 [facility] Comment on above: Result Comment: BELLA GEMENT OF PATIENT CARE PER NURSING PROTOCOL Performed By: #### L 100.0100, L500.4050 #### [facility] [address] [place], [address] Bilirubin directOrdered By: Lane Stanley on 05-12-2025 Bilirubin.direct [Mass/Vol] 0.23 mg/dL 0.00-0.30 [facility] Bilirubin, totalOrdered By: Lane Stanley on 05-12-2025 Bilirubin [Mass/Vol] 0.44 mg/dL 0.00-1.30 [facility] Brain/Head W/WO Contraston 0 05-12-2025 Brain/Head W/WO Contrast [facility] Imaging Services [address] [place], [place] [address] Brain/Head W/WO Contrast MR#: [id number] Acct: [id number] Name: ITZEL ALONZO Rep #: [id number] : 1950 M 74 From: Joaquin Kiser PCP: SID Hrao Status: ADM IN Study: Brain/Head W/WO Contrast Date of Exam: 5 Exam# [id number] Ordering Dr: Anthony Salgado MD PROCEDURE: BRAIN/HEAD W/WO CONTRAST 05/12/2025 REASON FOR EXAM: TO RULE OUT BRAIN METS. HISTORY OF LUNG CANCER TECHNIQUE: BRAIN/HEAD W/WO CONTRAST coronal and Sagittal reconstruction series were provided. CONTRAST: 46 mL of Isovue-300 L One or more dose reduction techniques were used (e.g., Automated exposure control, adjustment of the mA and/or kV according to patient size, use of iterative reconstruction technique). RADIATION DOSE SUMMARY: DLP: 1648 mGycm COMPARISON: 05/04/2025 FINDINGS: No abnormal enhancing lesion. No mass effect. Stable right parietal encephalomalacia likely from prior chronic infarction. Right cerebellar encephalomalacia likely from prior chronic infarction. There is no acute infarct, or intracranial hemorrhage. There is no hydrocephalus or significant midline shift. There is moderate chronic microvascular ischemic changes and moderate parenchymal volume loss. No acute, depressed calvarial fractures. No large scalp hematomas. CT/Brain/Head W/WO Contrast IMPRESSION: No abnormal enhancing mass. No acute intracranial process. Reading Location: [facility] CC: FOOT CUTTER-C Carlene Haji; Dr. Anthony Salgado MD Sharepoint Developer: Signed Normal [facility] CBC-Complete Blood Cnt No Di ffon 05-12-2025 Erythrocyte distribution width (RBC) [Ratio] 18.6 % High 11.6-14.6 [facility] Comment on above: Performed By: #### L 100.0100, L500.4050 #### [facility] [address] [place], [address] Hematocrit (Bld) [Volume fraction] 27.8 % Low 40-54 [facility] Comment on above: Performed By: #### L 100.0100, L500.4050 #### [facility] [address] [place], [address] Hemoglobin (Bld) [Mass/Vol] 8.4 g/dL Low 13.0-16.5 [facility] Comment on above: Performed By: #### L 100.0100, L500.4050 #### [facility] [address] [place], [address] MCH (RBC) [Entitic mass] 19.6 pg Low 27.0-32.0 [facility] Comment on above: Performed By: #### L 100.0100, L500.4050 #### [facility] [address] [place], [address] MCHC (RBC) [Mass/Vol] 30.2 g/dL Low 32-36 [facility] Comment on above: Performed By: #### L 100.0100, L500.4050 #### [facility] [address] [place], [address] MCV (RBC) [Entitic vol] 65.0 fL Low 80-94 [facility] Comment on above: Performed By: #### L 100.0100, L500.4050 #### [facility] [address] [place], [address] Platelet mean volume (Bld) [Entitic vol] 9.8 fL Normal 6.2-12.0 [facility] Comment on above: Performed By: #### L 100.0100, L500.4050 #### [facility] [address] [place], [address] Platelets (Bld) [#/Vol] 411 10*3/uL Normal 150-450 [facility] Comment on above: Performed By: #### L 100.0100, L500.4050 #### [facility] [address] [place], [address] RBC (Bld) [#/Vol] 4.28 10*6/uL Low 4.6-6.2 [facility] Comment on above: Performed By: #### L 100.0100, L500.4050 #### [facility] [address] [place], [address] RDW SD 43.0 fl Normal 35.1-43.9 [facility] Comment on above: Performed By: #### L 100.0100, L500.4050 #### [facility] [address] [place], [address] WBC (Bld) [#/Vol] 13.2 10*3/uL High 4.4-11.0 [facility] Comment on above: Performed By: #### L 100.0100, L500.4050 #### [facility] [address] [place], [address] Electrocardiogram reportOrde red By: Kevin Joshi on 05-12-2025 EKG study [facility] Cardi[facility] Services [address] [place] [address] 12 Lead EKG 05/11/25 1709 MR#: [id number] Acct: [id number] Name: ITZEL ALONZO Rep #:[id number] : 1950 74 From: Kevin Joshi MD Attending Dr: Dr. Anthony Salgado MD Status: ADM IN Ordering Dr: Monty Clarke MD Date: 05/11 Location: [facility] Sex: M AA Admitted: 05/11/25 Test Reason : GENERAL Blood Pressure : */* mmHG Vent. Rate : 91 BPM Atrial Rate : 91 BPM P-R Int : 150 ms QRS Dur : 90 ms QT Int : 386 ms P-R-T Axes : 47 58 53 degrees QTcB Int : 474 ms Normal sinus rhythm Normal ECG Confirmed by CHELSEA HERBERT, KEVIN ([id number]), marketing editor JOSE NYE ([id number]) on 05/12/2025 8:27:44 AM Referred By: Confirmed By: KEVIN JOSHI MD 05/12/25826 Date _ Kevin Joshi MD CC: FOOT CUTTER-C Carlene Haji; Dr. Anthony Salgado MD; Dr. Monty Clarke MD ~ Signed [facility] Other Phone: Laboratory - Chemistry and C hemistry - challengeOrdered By: Lane Stanley on 05-12-2025 AST [Catalytic activity/Vol] 23 U/L <38 [facility] Liver Profileon 05-12-2025 Albumin [Mass/Vol] 3.3 g/dL Low 3.4-4.8 [facility] Comment on above: Performed By: #### L 100.0100, L500.4050 #### [facility] [address] [place], [place], [address] ALK PHOS 131 U/L High 40-129 [facility] Comment on above: Performed By: #### L 100.0100, L500.4050 #### [facility] [address] [place], [place], [address] ALT [Catalytic activity/Vol] 11 U/L Normal <=46 [facility] Comment on above: Performed By: #### L 100.0100, L500.4050 #### [facility] [address] [place], [address] AST [Catalytic activity/Vol] 23 U/L Normal <=37 [facility] Comment on above: Performed By: #### L 100.0100, L500.4050 #### [facility] [address] [place], [address] Bilirubin [Mass/Vol] 0.44 mg/dL Normal 0.00-1.30 [facility] Comment on above: Performed By: #### L 100.0100, L500.4050 #### [facility] [address] [place], [address] Bilirubin.direct [Mass/Vol] 0.23 mg/dL Normal 0.00-0.30 [facility] Comment on above: Performed By: #### L 100.0100, L500.4050 #### [facility] [address] [place], [address] Globulin (S) [Mass/Vol] 3.8 g/dL Normal 2.2-4.2 [facility] Comment on above: Performed By: #### L 100.0100, L500.4050 #### [facility] [address] [place], [address] T PROT 7.1 g/dL Normal 5.9-8.4 [facility] Comment on above: Performed By: #### L 100.0100, L500.4050 #### [facility] [address] [place], [address] Serum globulin measurementOr dered By: Lane Stanley on 05-12-2025 Globulin (S) [Mass/Vol] 3.8 g/dL 2.2-4.2 [facility] Serum or plasma alanine stahl otransferase (ALT) measurementOrdered By: Lane Stanley on 05-12-2025 ALT [Catalytic activity/Vol] 11 U/L <47 [facility] Serum or plasma albumin ivania urement (mass/volume)Ordered By: Lane Stanley on 05-12-2025 Albumin [Mass/Vol] 3.3 g/dL Low 3.4-4.8 [facility] Serum or plasma alkaline brittany sphatase measurementOrdered By: Lane Stanley on 05-12-2025 ALP [Catalytic activity/Vol] 131 U/L High 40-129 [facility] Total proteinOrdered By: Eileen Stanley on 05-12-2025 Protein [Mass/Vol] 7.1 g/dL 5.9-8.4 [facility] 12 Lead EKGon 05-11-2025 12 Lead EKG [facility] Cardiovascular Services [address] [place] [address] 12 Lead EKG 05/11/25 1709 MR#: [id number] Acct: [id number] Name: ITZEL ALONZO Rep #: [id number] : 1950 74 From: Kevin Joshi MD Attending Dr: Dr. Anthony Salgado MD Status: ADM IN Ordering Dr: Monty Clarke MD Date: 05/11/25 Location: [facility] Sex: M AA Admitted: 05/11/25 Test Reason : GENERAL Blood Pressure : */* mmHG Vent. Rate : 91 BPM Atrial Rate : 91 BPM P-R Int : 150 ms QRS Dur : 90 ms QT Int : 386 ms P-R-T Axes : 47 58 53 degrees QTcB Int : 474 ms Normal sinus rhythm Normal ECG Confirmed by KEVIN JOSHI MD ([id number]), marketing editor JOSE NYE ([id number]) on 05/12/2025 8:27:44 AM Referred By: Confirmed By: KEVIN JOSHI MD 05/12/25 0827 Date Kevin Joshi MD CC: SID Haji; Dr. Anthony Salgado MD; Dr. Monty Clarke MD Signed Normal [facility] Absolute lymphocyte countOrd ered By: Monty Clarke on 05-11-2025 Lymphocytes Auto (Unsp spec) [#/Vol] 2.13 10*3/uL 0.83-4.51 [facility] Absolute neutrophil countOrd ered By: Montymaria e Reedo on 05-11-2025 Neutrophils (Bld) [#/Vol] 8.6 10*3/uL High 2.0-7.7 [facility] Anion gap in Serum or Plasma Ordered By: Monty Clarke on 05-11-2025 Anion gap [Moles/Vol] 11 mmol/L 5-15 [facility] Automated lymphocyte count a s percentage of total leukocytesOrdered By: Monty Clarke on 05-11-2025 Lymphocytes/100 WBC Auto (Unsp spec) 18.4 % Low 19-41 [facility] BUN/creatinine ratioOrdered By: Monty Clarke on 05-11-2025 Urea nitrogen/Creatinine [Mass ratio] 11.3 mg/mg 10-20 [facility] Basophil percentageOrdered B y: Monty Clarke on 05-11-2025 Basophils/100 WBC (Bld) 0.3 % 0-1 [facility] Bilirubin, totalOrdered By: Montymaria e Reedo on 05-11-2025 Bilirubin [Mass/Vol] 0.41 mg/dL 0.00-1.30 [facility] CBC W/Diff, Automatedon 04-25 Absolute Lymph 2.13 X10 3/uL Normal 0.83-4.51 [facility] Comment on above: Performed By: #### L 100.0100, L503.6005, L500.4050 ####[facility] [address] [place], [address] Absolute Neut 8.6 X10 3/uL High 2.0-7.7 [facility] Comment on above: Performed By: #### L 100.0100, L503.6005, L500.4050 ####[facility] [address] [place], [address] Basophils/100 WBC (Bld) 0.3 % Normal 0-1 [facility] Comment on above: Performed By: #### L 100.0100, L503.6005, L500.4050 ####[facility] [address] [place], [address] Eosinophils/100 WBC (Bld) 0.8 % Normal 0-5 [facility] Comment on above: Performed By: #### L 100.0100, L503.6005, L500.4050 ####[facility] [address] [place], [address] Erythrocyte distribution width (RBC) [Ratio] 19.0 % High 11.6-14.6 [facility] Comment on above: Performed By: #### L 100.0100, L503.6005, L500.4050 ####[facility] [address] [place], [address] Hematocrit (Bld) [Volume fraction] 28.9 % Low 40-54 [facility] Comment on above: Performed By: #### L 100.0100, L503.6005, L500.4050 ####[facility] [address] [place], [address] Hemoglobin (Bld) [Mass/Vol] 8.7 g/dL Low 13.0-16.5 [facility] Comment on above: Performed By: #### L 100.0100, L503.6005, L500.4050 ####[facility] [address] [place], [address] IG% 0.400 Normal 0.0-0.9 [facility] Comment on above: Result Comment: IG% - Immature Granulocytes (promyelocytes, myelocytes and metamyelocytes) > 1% indicates that a LEFT SHIFT is Present. Performed By: #### L 100.0100, L503.6005, L500.4050 ####[facility] [address] [place], [address] Lymphocytes/100 WBC (Bld) 18.4 % Low 19-41 [facility] Comment on above: Performed By: #### L 100.0100, L503.6005, L500.4050 ####[facility] [address] [place], [address] MCH (RBC) [Entitic mass] 20.0 pg Low 27.0-32.0 [facility] Comment on above: Performed By: #### L 100.0100, L503.6005, L500.4050 ####[facility] [address] [place], [address] MCHC (RBC) [Mass/Vol] 30.1 g/dL Low 32-36 [facility] Comment on above: Performed By: #### L 100.0100, L503.6005, L500.4050 ####[facility] [address] [place], [address] MCV (RBC) [Entitic vol] 66.4 fL Low 80-94 [facility] Comment on above: Performed By: #### L 100.0100, L503.6005, L500.4050 ####[facility] [address] [place], [address] Monocytes/100 WBC (Bld) 5.8 % Normal 0-10 [facility] Comment on above: Performed By: #### L 100.0100, L503.6005, L500.4050 ####[facility] [address] [place], [address] Neutrophils/100 WBC (Bld) 74.3 % High 47-70 [facility] Comment on above: Performed By: #### L 100.0100, L503.6005, L500.4050 ####[facility] [address] [place], [address] Nucleated RBC (Bld) [#/Vol] 0 10*3/uL Normal 0-5 [facility] Comment on above: Performed By: #### L 100.0100, L503.6005, L500.4050 ####[facility] [address] [place], [address] Platelet mean volume (Bld) [Entitic vol] 9.5 fL Normal 6.2-12.0 [facility] Comment on above: Performed By: #### L 100.0100, L503.6005, L500.4050 ####[facility] [address] [place], [address] Platelets (Bld) [#/Vol] 404 10*3/uL Normal 150-450 [facility] Comment on above: Performed By: #### L 100.0100, L503.6005, L500.4050 ####[facility] [address] [place], [address] RBC (Bld) [#/Vol] 4.35 10*6/uL Low 4.6-6.2 [facility] Comment on above: Performed By: #### L 100.0100, L503.6005, L500.4050 ####[facility] [address] [place], [address] RDW SD 44.7 fl High 35.1-43.9 [facility] Comment on above: Performed By: #### L 100.0100, L503.6005, L500.4050 ####[facility] [address] [place], [address] WBC (Bld) [#/Vol] 11.6 10*3/uL High 4.4-11.0 [facility] Comment on above: Performed By: #### L 100.0100, L503.6005, L500.4050 ####[facility] [address] [place], [address] Carbon dioxide, total [Moles /volume] in Central venous bloodOrdered By: Monty Clarke on 05-11-2025 CO2 [Moles/Vol] 26.3 mmol/L 21.0-32.0 [facility] Chest PA and Lateralon 05-11 Chest PA and Lateral [facility] [address] [place], [place] [address] Chest PA and Lateral MR#: [id number] Acct: [id number] Name: ITZEL ALONZO Rep #: [id number] : 1950 M 74 From: Jamie Suero DO PCP: Carlene Haji, FOOT CUTTER-C Status: REG ER Study: Chest PA and Lateral Date of Exam: 05/11/25 Exam# [id number] Ordering Dr: Monty Clarke MD PROCEDURE: CHEST PA AND LATERAL [...] associated with end-stage honeycomb fibrosis. Reading Location: [facility]- CC: FOOT CUTTER-C Carlene Haji; Dr. Monty Clarke MD Sharepoint Developer: Signed Normal [facility] Chloride assayOrdered By: Karin Clarke on 05-11-2025 Chloride [Moles/Vol] 99 mmol/L 98-108 [facility] Comprehensive Metabolic Prof ilon 05-11-2025 Albumin [Mass/Vol] 3.3 g/dL Low 3.4-4.8 [facility] Comment on above: Performed By: #### L 100.0100, L503.6005, L500.4050 ####[facility] [address] [place], [address] Albumin/Globulin [Mass ratio] 0.8 {ratio} Low 0.9-2.4 [facility] Comment on above: Performed By: #### L 100.0100, L503.6005, L500.4050 ####[facility] [address] [place], [address] ALK PHOS 128 U/L Normal 40-129 [facility] Comment on above: Performed By: #### L 100.0100, L503.6005, L500.4050 ####[facility] [address] [place], [address] ALT [Catalytic activity/Vol] 12 U/L Normal <=46 [facility] Comment on above: Performed By: #### L 100.0100, L503.6005, L500.4050 ####[facility] [address] [place], [address] AST [Catalytic activity/Vol] 23 U/L Normal <=37 [facility] Comment on above: Performed By: #### L 100.0100, L503.6005, L500.4050 ####[facility] [address] [place], [address] Bilirubin [Mass/Vol] 0.41 mg/dL Normal 0.00-1.30 [facility] Comment on above: Performed By: #### L 100.0100, L503.6005, L500.4050 ####[facility] [address] [place], [address] BUN/CRE 11.3 RATIO Normal 10-20 [facility] Comment on above: Performed By: #### L 100.0100, L503.6005, L500.4050 ####[facility] [address] [place], [address] Calcium [Mass/Vol] 11.2 mg/dL High 7.6-11.0 [facility] Comment on above: Performed By: #### L 100.0100, L503.6005, L500.4050 ####[facility] [address] [place], [address] Chloride [Moles/Vol] 99 mmol/L Normal 98-108 [facility] Comment on above: Performed By: #### L 100.0100, L503.6005, L500.4050 ####[facility] [address] [place], [address] CO2 [Moles/Vol] 26.3 mmol/L Normal 21.0-32.0 [facility] Comment on above: Performed By: #### L 100.0100, L503.6005, L500.4050 ####[facility] [address] [place], [address] Creatinine [Mass/Vol] 1.20 mg/dL Normal 0.70-1.20 [facility] Comment on above: Performed By: #### L 100.0100, L503.6005, L500.4050 ####[facility] [address] [place], [address] ECRCL 49.04 ml/min Low 50-250 [facility] Comment on above: Performed By: #### L 100.0100, L503.6005, L500.4050 ####[facility] [address] [place], [address] GAP 11 Normal 5-15 [facility] Comment on above: Performed By: #### L 100.0100, L503.6005, L500.4050 ####[facility] [address] [place], [address] GFR/1.73 sq M.predicted among non-blacks MDRD (S/P/Bld) [Vol rate/Area] 63 mL/min/{1.73_m2} Normal >60 [facility] Comment on above: Result Comment: mL/m in/1.73m2 CKD-EPI Creatinine Equation (2020) Performed By: #### L 100.0100, L503.6005, L500.4050 ####[facility] [address] [place], [address] Globulin (S) [Mass/Vol] 4.2 g/dL Normal 2.2-4.2 [facility] Comment on above: Performed By: #### L 100.0100, L503.6005, L500.4050 ####[facility] [address] [place], [address] Glucose [Mass/Vol] 244 mg/dL High 70-99 [facility] Comment on above: Performed By: #### L 100.0100, L503.6005, L500.4050 ####[facility] [address] [place], [address] Potassium [Moles/Vol] 3.5 mmol/L Normal 3.3-5.1 [facility] Comment on above: Performed By: #### L 100.0100, L503.6005, L500.4050 ####[facility] [address] [place], [address] Sodium [Moles/Vol] 136 mmol/L Normal 133-145 [facility] Comment on above: Performed By: #### L 100.0100, L503.6005, L500.4050 ####[facility] [address] [place], [address] T PROT 7.4 g/dL Normal 5.9-8.4 [facility] Comment on above: Performed By: #### L 100.0100, L503.6005, L500.4050 ####[facility] [address] [place], [address] Urea nitrogen [Mass/Vol] 14 mg/dL Normal 4-19 [facility] Comment on above: Performed By: #### L 100.0100, L503.6005, L500.4050 ####[facility] [address] [place], [address] Emergency Department Summary on 05-11-2025 Emergency Department Summary [facility] Medical Records Department [address] [place] [address] Emergency Department Summary 05/11/25 MR#: [id number] Acct: [id number] Name: ITZEL ALONZO Rep #: [id number] : 1950 74 From: Monty Clarke MD PCP: SID Haro Status:ADM IN [id number] Monty Clarke MD on 05/11/25 at 2107 EKG was obtained 1709 interpreted by az at 1711. The EKG is normal. Rate is 91. AR interval, QRS duration, QT duration and axis are all normal. 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 He endorses fatigue, generalized weakness. He has poor appetite. He does admit to change in urination. States he was seen approximately 3 weeks ago due to a fall. After reviewing records he was seen on the of this month for fall. He was [...] auditory symptoms. Prior similar symptoms: No Recent Illness/Hospitalizat ion: Yes [facility] Medical History (Updated 05/11/25 @ [...] PO DAILY heart health Unknown History release budesonide-formotero l HFA 80 2 puff inhalation BID COPD [...] Smoking Status: Current some day smoker tobacco (more content not included)... Normal [facility] Eosinophil percentageOrdered By: Monty Clarke on 05-11-2025 Eosinophils/100 WBC (Bld) 0.8 % 0-5 [facility] Erythrocyte distribution wid th ratioOrdered By: Monty Clarke on 05-11-2025 Erythrocyte distribution width (RBC) [Ratio] 19.0 % High 11.6-14.6 [facility] Erythrocyte distribution wid th standard deviationOrdered By: Monty Clarke on 05-11-2025 Erythrocyte distribution width (RBC) [Ratio] 44.7 fl High 35.1-43.9 [facility] Glomerular filtration rate ( GFR) estimation/1.73 sq m using serum, plasma, or whole bOrdered By: Monty Clarke on 05-11-2025 GFR/1.73 sq M.predicted among non-blacks MDRD (S/P/Bld) [Vol rate/Area] 63 mL/min/{1.73_m2} >60 [facility] Comment on above: mL/min/1.73m2 CKD-EP I Creatinine Equation (2020) H AND P Exam - [facility] 05-11-2025 H&P Exam - Hospitalist [facility] Medical Records Department [address] [place] [address] H P Exam - Hospitalist 05/11/251918 MR#: [id number] Acct: [id number] Name: ITZEL ALONZO Rep #: [id number] : 1950 74 From: Lane Lizeth DO PCP: Carlene Haji, FOOT CUTTERNissa Status:ADM IN [facility] HPI - General General Date of Admission: 05/11/25 Date of Service: 05/11/25 Chief Complaint: Worsening fatigue, weakness and confusion HPI Narrative ITZEL ALONZO, is a 74 M who presented to [facility] ED on 05/11/2025 with worsening fatigue, weakness and confusion. Patient has been seen in our ED recently but he [facility]. He was diagnosed with right-sided lung cancer about 1 year ago. It appears this diagnosis was confirmed on bronchial biopsy. Patient declined active treatment at that time and preferred close monitoring. However, patient has issues with transportation and has had difficulty getting to his appointments with oncology at the [facility]. He lives at home with his significant other who was present at the bedside today. Patient has had worsening fatigue and weakness over the past week or so. He has also had intermittent confusion and significant other notes this has become more noticeable over the past few days. He was seen in the ED here on 05/04 for a mechanical fall; workup was negative and he was able to be discharged home. ED physician noted today that patient was disoriented to time and slow to respond to questions. Lab workup notable for calcium 11.2; notably was 12.2 on 05/04. Hemoglobin has slowly been downtrending with hemoglobin 8.7 in the ED today. Chest x-ray shows a greater opacity within the suprahilar right lung mass suggesting acute postobstructive pneumonia with residual large suprahilar tumor. Stool occult was positive. Given these findings, hospitalist was contacted for admission. I saw the patient at bedside in the ED, significant other was present. He was mildly fatigued appearing but otherwise sitting back comfortably in bed and in no acute distress. He was answering questions appropriately for me, though his answers were somewhat slowed. He was breathing comfortably on room air at rest. He denied any acute pain or discomfort. He does report worsening shortness of breath and cough with activity recently. He does note intermittent dark stools over the past 1 to 2 weeks. Also notes worsening acid reflux symptoms in that timeframe. No other acute concerns currently. Will be admitted for further management. Importantly, I discussed the case over the phone with the transfer nurse with the [facility] lil[facility] good[facility]. Nurse noted that transfer could be initiated there but as the admitting physician was gone for the day, transfer will not happen until tomorrow at the earliest. [facility] Medical History (Updated 05/12/25 @ 00:00 by Background Daemon) Depression GERD (gastroesophageal reflux disease) Cirrhosis Former [...] PO DAILY heart health Unknown History release budesonide-formotero l HFA 80 2 puff inhalation BID COPD 1 Unknown History mcg-4.5 mcg/actuation aerosol inhaler (Symbicort) cyclobenzaprine 10 mg tablet 10 mg PO TID PRN muscle spasms Unknown History sildenafil 100 mg tablet 100 mg PO DAILY PRN Erectile 05/09 Unknown History Dysfunction atorvastatin 80 mg tablet 80 mg PO QHS #90 tabs 05/12/21 Unk nown Rx insulin aspart U-100 100 unit/mL 10 unit subcut TIDCM 12/12/24 Unkn own History (3 mL) subcutaneous pen (Novolog FlexPen U-100 Insulin aspart) insulin glargine 100 unit/mL (3 10 unit subcut QPM 05/04/25 Unknow n History mL) subcutaneous pen (Lantus Solostar U-100 Insulin) magnesium hydroxide 400 mg/5 mL 5 ml PO DAILY PRN constipation 09/1805/03/25 History oral suspension (Gentle Laxative (magnesium hydroxide)) ropinirole 1 mg tablet 1 mg PO DAILY 05/04/25 Unknown His tory Allergy/AdvReac Type Severity Reaction Status Date / Time No Known Allergies Allergy Verified 05/11/25 14:05 Family History Mother CVA (cerebral vascular accident) Surgical History Hx of appendectomy Social History household members (more content not included)... Normal [facility] Hematocrit Auto (Bld) [Volum e fraction]Ordered By: Monty Clarke on 05-11-2025 Hematocrit (Bld) [Volume fraction] 28.9 % Low 40-54 [facility] Hemoglobin measurementOrdere d By: Montymaria e Clarke on 05-11-2025 Hemoglobin (Bld) [Mass/Vol] 8.7 g/dL Low 13.0-16.5 [facility] Immature granulocytes/100 WB C Auto (Bld)Ordered By: Montymaria e Clarke on 05-11-2025 Immature granulocytes/100 WBC (Bld) 0.400 % 0.0-0.9 [facility] Comment on above: IG% - Immature Granu locytes (promyelocytes, myelocytes and metamyelocytes) > 1% indicates that a LEFT SHIFT is Present. L499.0042on 05-11-2025 Trop T High Sen 37 ng/L High <=22 [facility] Comment on above: Performed By: #### L 400.0001 #### [facility] Laboratory [address] [facility] [address] L499.0043on 05-11-2025 Trop T High Sen 39 ng/L High <=22 [facility] Comment on above: Performed By: #### L 100.0100, L500.4050 #### [facility] [address] [facility] [address] L501.4021on 05-11-2025 Trop T High Sen 39 ng/L High <=22 [facility] Comment on above: Performed By: #### L 501.4021 ####[facility] [address] [facility] [id number] Laboratory - Chemistry and C hemistry - challengeOrdered By: Monty Clarke on 05-11-2025 AST [Catalytic activity/Vol] 23 U/L <38 [facility] Lactic Acidon 05-11-2025 Lactate [Moles/Vol] 1.8 mmol/L Normal 0.0-2.0 [facility] Comment on above: Order Comment: Y Performed By: #### L 100.0100, L503.6005, L500.4050 ####[facility] [address] [place], [place], [address] Lactic acid measurementOrder ed By: Monty Clarke on 05-11-2025 Lactate [Moles/Vol] 1.8 mmol/L 0.0-2.0 [facility] MCV (mean corpuscular volume ) determinationOrdered By: Monty Clarke on 05-11-2025 MCV (RBC) [Entitic vol] 66.4 fL Low 80-94 [facility] Mean corpuscular hemoglobin (MCH) determinationOrdered By: Monty Clarke on 05-11-2025 MCH (RBC) [Entitic mass] 20.0 pg Low 27.0-32.0 [facility] Mean corpuscular hemoglobin concentration (MCHC) determinationOrdered By: Monty Clarke on 05-11-2025 MCHC (RBC) [Mass/Vol] 30.1 g/dL Low 32-36 [facility] Mean platelet volume determi nationOrdered By: Monty Clarke on 05-11-2025 Platelet mean volume (Bld) [Entitic vol] 9.5 fL 6.2-12.0 [facility] Monocyte percentageOrdered B y: Monty Clarke on 05-11-2025 Monocytes/100 WBC (Bld) 5.8 % 0-10 [facility] Neutrophil percentageOrdered By: Monty Clarke on 05-11-2025 Neutrophils/100 WBC (Bld) 74.3 % High 47-70 [facility] Nucleated red blood cell per centageOrdered By: Monty Clarke on 05-11-2025 Nucleated RBC/100 WBC (Bld) [Ratio] 0 % 0-5 [facility] Platelet countOrdered By: Karin Clarke on 05-11-2025 Platelets (Bld) [#/Vol] 404 10*3/uL 150-450 [facility] Potassium measurement (mass/ volume)Ordered By: Monty Clarke on 05-11-2025 Potassium (Unsp spec) [Mass/Vol] 3.5 mmol/L 3.3-5.1 [facility] RBC Auto (Bld) [#/Vol]Ordere d By: Monty Clarke on 05-11-2025 RBC (Bld) [#/Vol] 4.35 10*6/uL Low 4.6-6.2 [facility] Serum creatinine measurement (mass/volume)Ordered By: Monty Clarke on 05-11-2025 Creatinine [Mass/Vol] 1.20 mg/dL 0.70-1.20 [facility] Serum globulin measurementOr dered By: Monty Clarke on 05-11-2025 Globulin (S) [Mass/Vol] 4.2 g/dL 2.2-4.2 [facility] Serum glucose measurement (m ass/volume)Ordered By: Monty Clarke on 05-11-2025 Glucose [Mass/Vol] 244 mg/dL High 70-99 [facility] Serum or plasma alanine stahl otransferase (ALT) measurementOrdered By: Monty Clarke on 05-11-2025 ALT [Catalytic activity/Vol] 12 U/L <47 [facility] Serum or plasma albumin ivania urement (mass/volume)Ordered By: Monty Clarke on 05-11-2025 Albumin [Mass/Vol] 3.3 g/dL Low 3.4-4.8 [facility] Serum or plasma albumin/glob ulin mass ratioOrdered By: Montymaria e Clarke 05-11-2025 Albumin/Globulin [Mass ratio] 0.8 {ratio} Low 0.9-2.4 [facility] Serum or plasma alkaline brittany sphatase measurementOrdered By: Montymaria e Clarke 05-11-2025 ALP [Catalytic activity/Vol] 128 U/L 40-129 [facility] Serum or plasma calcium ivania urement (mass/volume)Ordered By: Monty Clarke on 05-11-2025 Calcium [Mass/Vol] 11.2 mg/dL High 7.6-11.0 [facility] Serum or plasma urea nitroge n measurement (mass/volume)Ordered By: Monty Clarke on 05-11-2025 Urea nitrogen [Mass/Vol] 14 mg/dL 4-19 [facility] Sodium levelOrdered By: Monty Clarke on 05-11-2025 Sodium [Moles/Vol] 136 mmol/L 133-145 [facility] Stool Occult Blood iFOBon STOB Negative Normal [facility] Comment on above: Performed By: #### M 100.7900 ####[facility] [address] [place], [place], [id number] Stool gastrointestinal hemog lobin detection by immunologic methodOrdered By: Monty Clarke on 05-11-2025 Lower GI hemoglobin IA Ql (Stl) [facility] Total proteinOrdered By: Monty Clarke on 05-11-2025 Protein [Mass/Vol] 7.4 g/dL 5.9-8.4 [facility] Troponin T.cardiac [Mass/vol ume] in Serum or Plasma by High sensitivity methodOrdered By: Monty Clarke on 05-11-2025 Troponin T.cardiac High sensitivity method [Mass/Vol] 39 ng/L High <22 [facility] Troponin T.cardiac High sensitivity method [Mass/Vol] 37 ng/L High <22 [facility] Troponin T.cardiac High sensitivity method [Mass/Vol] 39 ng/L High <22 [facility] Comment on above: Delta: 26 on 5 White blood cell (WBC) count Ordered By: Monty Clarke on 05-11-2025 WBC (Bld) [#/Vol] 11.6 10*3/uL High 4.4-11.0 [facility] 12 Lead EKGon 05-04-2025 12 Lead EKG [facility] Cardiovascular Services [address] [place] [address] 12 Lead EKG 05/04/25 1129 MR#: [id number] Acct: [id number] Name: ITZEL ALONZO Rep #: [id number] : 1950 74 From: Adams Connell MD [...] sinus rhythm Normal ECG Confirmed by Adams Conenll ([id number]), marketing editor KATIE ABRAHAM ([id number]) on 05/06/2025 6:12:43 AM Referred By: Confirmed By: Adams Connell 05/06/25611 Adams Connell MD CC: SID Haji; Dr. Ike Dawson DO Signed Normal [facility] Absolute lymphocyte countOrd ered By: Ike Dawson on 05-04-2025 Lymphocytes Auto (Unsp spec) [#/Vol] 3.37 10*3/uL 0.83-4.51 [facility] Absolute neutrophil countOrd ered By: Ike Dawson on 05-04-2025 Neutrophils (Bld) [#/Vol] 7.0 10*3/uL 2.0-7.7 [facility] Activated partial thrombopla stin time (aPTT) in platelet poor plasma by coagulation aOrdered By: Ike Dawson on 05-04-2025 aPTT Coag (PPP) [Time] 31.9 s 24.1-36.2 [facility] Anion gap in Serum or Plasma Ordered By: Ike Dawson on 05-04-2025 Anion gap [Moles/Vol] 11 mmol/L 5-15 [facility] Automated lymphocyte count a s percentage of total leukocytesOrdered By: Ike Dawson on 05-04-2025 Lymphocytes/100 WBC Auto (Unsp spec) 29.4 % 19-41 [facility] BUN/creatinine ratioOrdered By: Ike Dawson on 05-04-2025 Urea nitrogen/Creatinine [Mass ratio] 16.9 mg/mg 10-20 [facility] Basic Metabolic Profile (BMP )on 05-04-2025 BUN/CRE 16.9 RATIO Normal - [facility] Comment on above: Performed By: #### L 100.0100, L500.4050 #### [facility] Laboratory [address] [place], [address] ECRCL 50.60 ml/min Normal 50-250 [facility] Comment on above: Performed By: #### L 100.0100, L500.4050 #### [facility] [address] [place], [address] GAP 11 Normal 5-15 [facility] Comment on above: Performed By: #### L 100.0100, L500.4050 #### [facility] Laboratory [address] [place], [address] Potassium [Moles/Vol] 4.2 mmol/L Normal 3.3-5.1 [facility] Comment on above: Performed By: #### L 100.0100, L500.4050 #### [facility] [address] [place], [address] Basophil percentageOrdered B y: Ike Eunice on 05-04-2025 Basophils/100 WBC (Bld) 0.3 % 0-1 [facility] Blood polychromasia detectio n by light microscopyOrdered By: Ike Le on 05-04-2025 Polychromasia LM Ql (Bld) 1+ [facility] Brain/Head without Contrasto n 05-04-2025 Brain/Head without Contrast [facility] Imaging Services [address] [place] [address] Brain/Head without Contrast MR#: [id number] Acct: [id number] Name: ITZEL ALONZO Rep #: [id number] : 1950 M 74 From: Uche Kiser PCP: SID Haro Status: REG ER Study: Brain/Head without Contrast Date of Exam: 04/25 Exam# [id number] Ordering Dr: Ike Dawson DO PROCEDURE: BRAIN/HEAD [...] or other acute process noted. Reading Location: [address] CC: SID Haji; Dr. Ike Dawson DO Sharepoint Developer: Signed Normal [facility] CBC W/Diff, AutomatedOrdered By: Ike Dawson on 05-04-2025 Anisocytosis Ql (Bld) 1+ Normal [facility] Comment on above: Performed By: #### L 100.0100, L500.4050 #### [facility] Laboratory [address] [place], [place], [id number] CBC W/Diff, Automatedon 04-25 PLT EST A Normal ADEQ [facility] Comment on above: Performed By: #### L 100.0100, L500.4050 #### [facility] Laboratory [address] [place], [place], [address] POLYCHROMASIA 1+ Normal [facility] Comment on above: Performed By: #### L 100.0100, L500.4050 #### [facility] Laboratory [address] [place], [address] Carbon dioxide, total [Moles /volume] in Central venous bloodOrdered By: Ike Dawson on 05-04-2025 CO2 [Moles/Vol] 27.6 mmol/L Normal 21.0-32.0 [facility] Comment on above: Performed By: #### L 100.0100, L500.4050 #### [facility] Laboratory [address] [place], [address] Chest without Contraston Chest without Contrast [facility] Imaging Services [address] [place], [place] [address] Chest without Contrast MR#: [id number] Acct: [id number] Name: ITZEL ALONZO Rep #: [id number] : 1950 M 74 From: Lion torres MD PCP: Carlene Haji FOOT CUTTER-C Status: REG ER Study: Chest without Contrast Date of Exam: 05/04/25 Exam# [id number] Ordering Dr: Ike Dawson DO PROCEDURE: CHEST [...] at the right lung base. Reading Location: [facility] CC: FOOT CUTTER-C Carlene Haji; Dr. Ike Dawson DO Sharepoint Developer: Signed Normal [facility] Chloride assayOrdered By: Jacinto Dawson on 05-04-2025 Chloride [Moles/Vol] 97 mmol/L Low 98-108 [facility] Comment on above: Performed By: #### L 100.0100, L500.4050 #### [facility] Laboratory [address] [facility] [place], [address] Emergency Department Summary on 05-04-2025 Emergency Department Summary [facility] Medical Records Department [address] [place] [address] Emergency Department Summary 05/04/25 MR#: [id number] Acct: [id number] Name: ITZEL ALONZO Rep #: [id number] : 1950 74 From: Ike Nuñez PCP: SID Haro Status:DEP ER Location: ED HPI HPI - [...] [facility] Medical History Kidney stones Neuropathy PTSD (post-traumatic [...] PO DAILY heart health Unknown History release budesonide-formotero l HFA 80 2 puff inhalation BID COPD [...] well no (more content not included)... Normal [facility] Eosinophil percentageOrdered By: Ike Dawson on 05-04-2025 Eosinophils/100 WBC (Bld) 1.5 % 0-5 [facility] Erythrocyte distribution wid th ratioOrdered By: Ike Dawson on 05-04-2025 Erythrocyte distribution width (RBC) [Ratio] 20.1 % High 11.6-14.6 [facility] Erythrocyte distribution wid th standard deviationOrdered By: Ike Dawson on 05-04-2025 Erythrocyte distribution width (RBC) [Ratio] 45.7 fl High 35.1-43.9 [facility] Glomerular filtration rate ( GFR) estimation/1.73 sq m using serum, plasma, or whole bOrdered By: Ike Dawson on 05-04-2025 GFR/1.73 sq M.predicted among non-blacks MDRD (S/P/Bld) [Vol rate/Area] 67 mL/min/{1.73_m2} Normal >60 [facility] Comment on above: mL/min/1.73m2 CKD-EP I Creatinine Equation (2020) Result Comment: mL/m in/1.73m2 CKD-EPI Creatinine Equation (2020) Performed By: #### L 100.0100, L500.4050 #### [facility] Laboratory [address] [place], [address] Hematocrit Auto (Bld) [Volum e fraction]Ordered By: Ike Dawson on 05-04-2025 Hematocrit (Bld) [Volume fraction] 32.4 % Low 40-54 [facility] Hemoglobin measurementOrdere d By: Ike Dawson on 05-04-2025 Hemoglobin (Bld) [Mass/Vol] 9.8 g/dL Low 13.0-16.5 [facility] Immature granulocytes/100 WB C Auto (Bld)Ordered By: Ike Dawson on 05-04-2025 Immature granulocytes/100 WBC (Bld) 0.500 % 0.0-0.9 [facility] Comment on above: IG% - Immature Granu locytes (promyelocytes, myelocytes and metamyelocytes) > 1% indicates that a LEFT SHIFT is Present. International normalized rat io (INR) calculationOrdered By: Ike Dawson on 05-04-2025 INR Coag (Bld) [Relative time] 1.1 {INR} [facility] MCV (mean corpuscular volume ) determinationOrdered By: Ike Dawson on 05-04-2025 MCV (RBC) [Entitic vol] 65.9 fL Low 80-94 [facility] Mean corpuscular hemoglobin (MCH) determinationOrdered By: Ike Dawson 05-04-2025 MCH (RBC) [Entitic mass] 19.9 pg Low 27.0-32.0 [facility] Mean corpuscular hemoglobin concentration (MCHC) determinationOrdered By: Ike Dawson on 05-04-2025 MCHC (RBC) [Mass/Vol] 30.2 g/dL Low 32-36 [facility] Mean platelet volume determi nationOrdered By: Ike Dawson on 05-04-2025 Platelet mean volume (Bld) [Entitic vol] 9.9 fL 6.2-12.0 [facility] Monocyte percentageOrdered B y: Ike Dawson on 05-04-2025 Monocytes/100 WBC (Bld) 6.9 % 0-10 [facility] Neutrophil percentageOrdered By: Ike Dawson on 05-04-2025 Neutrophils/100 WBC (Bld) 61.4 % 47-70 [facility] Nucleated red blood cell per centageOrdered By: Ike Dawson on 05-04-2025 Nucleated RBC/100 WBC (Bld) [Ratio] 0 % 0-5 [facility] Partial Thromboplast Timeon 05-04-2025 aPTT Coag (Bld) [Time] 31.9 s Normal 24.1-36.2 [facility] Comment on above: Performed By: #### L 100.0100, L500.4050 #### [facility] Laboratory [address] [place], [place], [address] Platelet countOrdered By: Jacinto Dawson on 05-04-2025 Platelets (Bld) [#/Vol] 412 10*3/uL 150-450 [facility] Platelet estimateOrdered By: Ike Dawson on 05-04-2025 Platelets LM Ql (Bld) A ADEQ [facility] Potassium measurement (mass/ volume)Ordered By: Ike Dawson on 05-04-2025 Potassium (Unsp spec) [Mass/Vol] 4.2 mmol/L 3.3-5.1 [facility] Prothrombin Time w/INRon INR Coag (PPP) [Relative time] 1.1 {INR} Normal [facility] Comment on above: Performed By: #### L 100.0100, L500.4050 #### [facility] Laboratory [address] [place], [address] Prothrombin timeOrdered By: Ike Dawson on 05-04-2025 PT Coag (PPP) [Time] 14.8 s Normal 11.7-14.9 [facility] Comment on above: Performed By: #### L 100.0100, L500.4050 #### [facility] Laboratory [address] [place], [address] RBC Auto (Bld) [#/Vol]Ordere d By: Ike Dawson on 05-04-2025 RBC (Bld) [#/Vol] 4.92 10*6/uL 4.6-6.2 [facility] Serum creatinine measurement (mass/volume)Ordered By: Ike Dawson on 05-04-2025 Creatinine [Mass/Vol] 1.14 mg/dL Normal 0.70-1.20 [facility] Comment on above: Performed By: #### L 100.0100, L500.4050 #### [facility] Laboratory [address] [place], [address] Serum glucose measurement (m ass/volume)Ordered By: Ike Dawson on 05-04-2025 Glucose [Mass/Vol] 229 mg/dL High 70-99 [facility] Comment on above: Performed By: #### L 100.0100, L500.4050 #### [facility] Laboratory [address] [place], [address] Serum or plasma calcium ivania urement (mass/volume)Ordered By: Ike Dawson on 05-04-2025 Calcium [Mass/Vol] 12.2 mg/dL High 7.6-11.0 [facility] Comment on above: Performed By: #### L 100.0100, L500.4050 #### [facility] [address] [place], [address] Serum or plasma urea nitroge n measurement (mass/volume)Ordered By: Ike Dawson on 05-04-2025 Urea nitrogen [Mass/Vol] 19 mg/dL Normal 4-19 [facility] Comment on above: Performed By: #### L 100.0100, L500.4050 #### [facility] Laboratory [address] [place], [address] Shoulder min 2 Viewson 05-04 Shoulder min 2 Views [facility] Imaging Services [address] [place] [address] Shoulder min 2 Views MR#: [id number] Acct: [id number] Name: ITZEL ALONZO Rep #: [id number] : 1950 M 74 From: Lion torres MD PCP: SID Haro Status: REG ER Study: Shoulder min 2 Views Date of Exam: 05/04/25 Exam# [id number] Ordering Dr: kIe Dawson DO PROCEDURE: SHOULDER MIN 2 VIEWS [...] with a CT scan recommended. Reading Location: [place] [address] CC: FOOT CUTTERNissa Haji; Dr. Ike Dawson DO Sharepoint Developer: Signed Normal [facility] Sodium levelOrdered By: Ike Dawson on 05-04-2025 Sodium [Moles/Vol] 136 mmol/L Normal 133-145 [facility] Comment on above: Performed By: #### L 100.0100, L500.4050 #### [facility] Laboratory [address] [place], [address] Spine Cervical without Contr ason 05-04-2025 Spine Cervical without Contras [facility] Imaging Services [address] [place] [address] Spine Cervical without Contras MR#: [id number] Acct: [id number] Name: ITZEL ALONZO Rep #: [id number] : 1950 M 74 From: Lion torres MD PCP: Carlene Haji, FOOT CUTTER-C Status: REG ER Study: Spine Cervical without Contras Date of Exam: 0 05/04/25 Exam# [id number] Ordering Dr: Ike Dawson DO PROCEDURE: SPINE [...] Right upper lobe pulmonary mass. Reading Location: [facility] CC: FOOT CUTTER-C Carlene Haji; Dr. Ike Dawson DO Sharepoint Developer: Signed Normal [facility] White blood cell (WBC) count Ordered By: Ike Dawson on 05-04-2025 WBC (Bld) [#/Vol] 11.5 10*3/uL High 4.4-11.0 [facility] Bedside Glucoseon 04-24-2025 FINGERSTICK GLU 137 mg/dL High 74-106 [facility] Comment on above: Result Comment: BELLA FRANCISCOENT OF PATIENT CARE PER NURSING PROTOCOL Performed By: #### L 100.0100, L500.4050 #### [facility] Laboratory [address] [place], [address] [facility] clair[facility] deOrdered By: Steven Tejeda on 04-24-2025 Glucose [Mass/Vol] 137 mg/dL High 74-106 [facility] Comment on above: MANAGEMENT OF PATIEN T CARE PER NURSING PROTOCOL L499.0043on 04-24-2025 Trop T High Sen Normal <=22 [facility] Comment on above: Result Comment: Asif espitia via OM: MD Ordered Performed By: #### L 100.0100, L500.4050 #### [facility] Laboratory [address] [place], [address] 12 Lead EKGon 04-23-2025 12 Lead EKG [facility] Cardiovascular Services [address] [place] [address] 12 Lead EKG 04/23/25 2145 MR#: [id number] Acct: [id number] Name: CHERIITZEL Carlie Rep #: [id number] : 1950 74 From: Adams Connell MD [...] rhythm Normal ECG Confirmed by Adams Connell ([id number]), marketing editor KATIE ABRAHAM ([id number]) on 04/26/2025 10:51:11 AM Referred By: Confirmed By: Adams Connell 04/26/25 1051 Date Adams Connell MD CC: SID Haji; Dr. Steven Tejeda, DO Signed Normal [facility] Absolute lymphocyte countOrd ered By: Steven Tejeda on 04-23-2025 Lymphocytes Auto (Unsp spec) [#/Vol] 3.56 10*3/uL 0.83-4.51 [facility] Absolute neutrophil countOrd ered By: Steven Tejeda on 04-23-2025 Neutrophils (Bld) [#/Vol] 8.4 10*3/uL High 2.0-7.7 [facility] Activated partial thrombopla stin time (aPTT) in platelet poor plasma by coagulation aOrdered By: Steven Tejeda on 04-23-2025 aPTT Coag (PPP) [Time] 27.9 s 24.1-36.2 [facility] Anion gap in Serum or Plasma Ordered By: Steven Tejeda on 04-23-2025 Anion gap [Moles/Vol] 11 mmol/L 5-15 [facility] Automated lymphocyte count a s percentage of total leukocytesOrdered By: Steven Tejeda on 04-23-2025 Lymphocytes/100 WBC Auto (Unsp spec) 27.6 % 19-41 [facility] BUN/creatinine ratioOrdered By: Steven Tejeda on 04-23-2025 Urea nitrogen/Creatinine [Mass ratio] 20.6 mg/mg High 10- [facility] Basic Metabolic Profile (BMP )on 04-23-2025 BUN/CRE 20.6 RATIO High 09-13 [facility] Comment on above: Performed By: #### L 400.0001 #### [facility] Laboratory [address] [place], [address] Calcium [Mass/Vol] 10.3 mg/dL Normal 7.6-11.0 [facility] Comment on above: Performed By: #### L 400.0001 #### [facility] Laboratory [address] [place], [address] Chloride [Moles/Vol] 101 mmol/L Normal 98-108 [facility] Comment on above: Performed By: #### L 400.0001 #### [facility] Laboratory [address] [place], [address] CO2 [Moles/Vol] 22.9 mmol/L Normal 21.0-32.0 [facility] Comment on above: Performed By: #### L 400.0001 #### [facility] Laboratory [address] [place], [address] Creatinine [Mass/Vol] 0.96 mg/dL Normal 0.70-1.20 [facility] Comment on above: Performed By: #### L 400.0001 #### [facility] Laboratory [address] [place], [address] ECRCL 66.44 ml/min Normal 50-250 [facility] Comment on above: Performed By: #### L 400.0001 #### [facility] Laboratory [address] [place], [address] GAP 11 Normal 5-15 [facility] Comment on above: Performed By: #### L 400.0001 #### [facility] Laboratory [address] [place], [address] GFR/1.73 sq M.predicted among non-blacks MDRD (S/P/Bld) [Vol rate/Area] 82 mL/min/{1.73_m2} Normal >60 [facility] Comment on above: Result Comment: mL/m in/1.73m2 CKD-EPI Creatinine Equation (2020) Performed By: #### L 400.0001 #### [facility] Laboratory [address] [place], [address] Glucose [Mass/Vol] 292 mg/dL High 70-99 [facility] Comment on above: Performed By: #### L 400.0001 #### [facility] Laboratory [address] [place], [address] Potassium [Moles/Vol] 3.9 mmol/L Normal 3.3-5.1 [facility] Comment on above: Performed By: #### L 400.0001 #### [facility] Laboratory [address] [place], [address] Sodium [Moles/Vol] 134 mmol/L Normal 133-145 [facility] Comment on above: Performed By: #### L 400.0001 #### [facility] [address] [place], [address] Urea nitrogen [Mass/Vol] 20 mg/dL High 4-19 [facility] Comment on above: Performed By: #### L 400.0001 #### [facility] [address] [place], [address] Basophil percentageOrdered B y: Steven Tejeda on 04-23-2025 Basophils/100 WBC (Bld) 0.2 % 0-1 [facility] CBC W/Diff, Automatedon 03-27 Absolute Lymph 3.56 X10 3/uL Normal 0.83-4.51 [facility] Comment on above: Performed By: #### L 300.3900, L100.0100, L501.4021, L300.4310, L500.2500 ####[facility] [address] [place], [address] Absolute Neut 8.4 X10 3/uL High 2.0-7.7 [facility] Comment on above: Performed By: #### L 300.3900, L100.0100, L501.4021, L300.4310, L500.2500 ####[facility] [address] [place], [address] Basophils/100 WBC (Bld) 0.2 % Normal 0-1 [facility] Comment on above: Performed By: #### L 300.3900, L100.0100, L501.4021, L300.4310, L500.2500 ####[facility] [address] [place], [address] Eosinophils/100 WBC (Bld) 1.9 % Normal 0-5 [facility] Comment on above: Performed By: #### L 300.3900, L100.0100, L501.4021, L300.4310, L500.2500 ####[facility] [address] [place], [address] Erythrocyte distribution width (RBC) [Ratio] 19.0 % High 11.6-14.6 [facility] Comment on above: Performed By: #### L 300.3900, L100.0100, L501.4021, L300.4310, L500.2500 ####[facility] [address] [place], [address] Hematocrit (Bld) [Volume fraction] 31.1 % Low 40-54 [facility] Comment on above: Performed By: #### L 300.3900, L100.0100, L501.4021, L300.4310, L500.2500 ####[facility] [address] [place], [address] Hemoglobin (Bld) [Mass/Vol] 9.3 g/dL Low 13.0-16.5 [facility] Comment on above: Performed By: #### L 300.3900, L100.0100, L501.4021, L300.4310, L500.2500 ####[facility] [address] [place], [address] IG% 0.500 Normal 0.0-0.9 [facility] Comment on above: Result Comment: IG% - Immature Granulocytes (promyelocytes, myelocytes and metamyelocytes) > 1% indicates that a LEFT SHIFT is Present. Performed By: #### L 300.3900, L100.0100, L501.4021, L300.4310, L500.2500 ####[facility] [address] [place], [address] Lymphocytes/100 WBC (Bld) 27.6 % Normal 19-41 [facility] Comment on above: Performed By: #### L 300.3900, L100.0100, L501.4021, L300.4310, L500.2500 ####[facility] [address] [place], [address] MCH (RBC) [Entitic mass] 19.7 pg Low 27.0-32.0 [facility] Comment on above: Performed By: #### L 300.3900, L100.0100, L501.4021, L300.4310, L500.2500 ####[facility] [address] [place], [address] MCHC (RBC) [Mass/Vol] 29.9 g/dL Low 32-36 [facility] Comment on above: Performed By: #### L 300.3900, L100.0100, L501.4021, L300.4310, L500.2500 ####[facility] [address] [place], [address] MCV (RBC) [Entitic vol] 66.0 fL Low 80-94 [facility] Comment on above: Performed By: #### L 300.3900, L100.0100, L501.4021, L300.4310, L500.2500 ####[facility] [address] [place], [address] Monocytes/100 WBC (Bld) 4.9 % Normal 0-10 [facility] Comment on above: Performed By: #### L 300.3900, L100.0100, L501.4021, L300.4310, L500.2500 ####[facility] [address] [place], [address] Neutrophils/100 WBC (Bld) 64.9 % Normal 47-70 [facility] Comment on above: Performed By: #### L 300.3900, L100.0100, L501.4021, L300.4310, L500.2500 ####[facility] [address] [place], [address] Nucleated RBC (Bld) [#/Vol] 0 10*3/uL Normal 0-5 [facility] Comment on above: Performed By: #### L 300.3900, L100.0100, L501.4021, L300.4310, L500.2500 ####[facility] [address] [place], [address] Platelet mean volume (Bld) [Entitic vol] 9.4 fL Normal 6.2-12.0 [facility] Comment on above: Performed By: #### L 300.3900, L100.0100, L501.4021, L300.4310, L500.2500 ####[facility] [address] [place], [address] Platelets (Bld) [#/Vol] 350 10*3/uL Normal 150-450 [facility] Comment on above: Performed By: #### L 300.3900, L100.0100, L501.4021, L300.4310, L500.2500 ####[facility] [address] [place], [address] RBC (Bld) [#/Vol] 4.71 10*6/uL Normal 4.6-6.2 [facility] Comment on above: Performed By: #### L 300.3900, L100.0100, L501.4021, L300.4310, L500.2500 ####[facility] [address] [place], [address] RDW SD 43.6 fl Normal 35.1-43.9 [facility] Comment on above: Performed By: #### L 300.3900, L100.0100, L501.4021, L300.4310, L500.2500 ####[facility] [address] [place], [address] WBC (Bld) [#/Vol] 12.9 10*3/uL High 4.4-11.0 [facility] Comment on above: Performed By: #### L 300.3900, L100.0100, L501.4021, L300.4310, L500.2500 ####[facility] [address] [place], [address] Carbon dioxide, total [Moles /volume] in Central venous bloodOrdered By: Steven Tejeda on 04-23-2025 CO2 [Moles/Vol] 22.9 mmol/L 21.0-32.0 [facility] Chest 1 View (Portable)on Chest 1 View (Portable) [facility] Imaging Services [address] [place] [address] Chest 1 View (Portable) MR#: [id number] Acct: [id number] Name: ITZEL ALONZO Rep #: [id number] : 1950 M 74 From: Deonte Perez MD PCP: Carlene Haji, FOOT CUTTER-C Status: REG ER Study: Chest 1 View (Portable) Date of Exam: 04/23/25 Exam# [id number] Ordering Dr: Steven Tejeda DO PROCEDURE: CHEST [...] regions which may represent adenopathy. Reading Location: [id number] CC: FOOT CUTTER-C Carlene Haji; Dr. Steven Tejeda DO Sharepoint Developer: Signed Normal [facility] Chloride assayOrdered By: Emil Tejeda on 04-23-2025 Chloride [Moles/Vol] 101 mmol/L 98-108 [facility] Emergency Department Summary on 04-23-2025 Emergency Department Summary [facility] Medical Records Department [address] [place] [address] Emergency Department Summary 04/23/25 MR#: [id number] Acct: [id number] Name: ITZEL ALONZO Rep #: [id number] : 1950 74 From: Steven Tejeda DO PCP: SID Haro Status:DEP ER Location: ED HPI History of Present Illness Chief Complaint: Neuro S/Sx Informant: patient Onset/Context/Timing Onset: Today Context: Sudden Onset Timing: Continuous [...] with lung cancer in his right lung. [facility] Medical History Kidney stones Neuropathy [...] PO DAILY heart health Unknown History release budesonide-formotero l HFA 80 2 puff inhalation BID COPD [...] rash Neurologic Neurologic: Reports headache(s) and weakness Allergic/Immunologic Allergic/Immunologic ED: Denies mouth swelling or urticaria EXAM [...] to obtaining)] (more content not included)... Normal [facility] Eosinophil percentageOrdered By: Steven Tejeda on 04-23-2025 Eosinophils/100 WBC (Bld) 1.9 % 0-5 [facility] Erythrocyte distribution wid th ratioOrdered By: Steven Tejeda on 04-23-2025 Erythrocyte distribution width (RBC) [Ratio] 19.0 % High 11.6-14.6 [facility] Erythrocyte distribution wid th standard deviationOrdered By: Steven Tejeda on 04-23-2025 Erythrocyte distribution width (RBC) [Ratio] 43.6 fl 35.1-43.9 [facility] Glomerular filtration rate ( GFR) estimation/1.73 sq m using serum, plasma, or whole bOrdered By: Steven Tejeda on 04-23-2025 GFR/1.73 sq M.predicted among non-blacks MDRD (S/P/Bld) [Vol rate/Area] 82 mL/min/{1.73_m2} >60 [facility] Comment on above: mL/min/1.73m2 CKD-EP I Creatinine Equation (2020) Hematocrit Auto (Bld) [Volum e fraction]Ordered By: Steven Tejeda on 04-23-2025 Hematocrit (Bld) [Volume fraction] 31.1 % Low 40-54 [facility] Hemoglobin measurementOrdere d By: Steven Tejeda on 04-23-2025 Hemoglobin (Bld) [Mass/Vol] 9.3 g/dL Low 13.0-16.5 [facility] Immature granulocytes/100 WB C Auto (Bld)Ordered By: Steven Tejeda on 04-23-2025 Immature granulocytes/100 WBC (Bld) 0.500 % 0.0-0.9 [facility] Comment on above: IG% - Immature Granu locytes (promyelocytes, myelocytes and metamyelocytes) > 1% indicates that a LEFT SHIFT is Present. International normalized rat io (INR) calculationOrdered By: Steven Tejeda on 04-23-2025 INR Coag (Bld) [Relative time] 1.1 {INR} [facility] L499.0042on 04-23-2025 Trop T High Sen 27 ng/L High <=22 [facility] Comment on above: Performed By: #### L 100.0100, L500.4050 #### [facility] Laboratory [address] [place], [place], [address] L501.4021on 04-23-2025 Trop T High Sen 26 ng/L High <=22 [facility] Comment on above: Performed By: #### L 400.0001 #### [facility] Laboratory [address] [facility] [place], [address] MCV (mean corpuscular volume ) determinationOrdered By: Steven Tejeda on 04-23-2025 MCV (RBC) [Entitic vol] 66.0 fL Low 80-94 [facility] Mean corpuscular hemoglobin (MCH) determinationOrdered By: Steven Tejeda on 04-23-2025 MCH (RBC) [Entitic mass] 19.7 pg Low 27.0-32.0 [facility] Mean corpuscular hemoglobin concentration (MCHC) determinationOrdered By: Steven Tejeda on 04-23-2025 MCHC (RBC) [Mass/Vol] 29.9 g/dL Low 32-36 [facility] Mean platelet volume determi nationOrdered By: Steven Tejeda on 04-23-2025 Platelet mean volume (Bld) [Entitic vol] 9.4 fL 6.2-12.0 [facility] Monocyte percentageOrdered B y: Steven Tejeda on 04-23-2025 Monocytes/100 WBC (Bld) 4.9 % 0-10 [facility] Neutrophil percentageOrdered By: Steven Tejeda on 04-23-2025 Neutrophils/100 WBC (Bld) 64.9 % 47-70 [facility] Nucleated red blood cell per centageOrdered By: Steven Tejeda on 04-23-2025 Nucleated RBC/100 WBC (Bld) [Ratio] 0 % 0-5 [facility] Partial Thromboplast Timeon 04-23-2025 aPTT Coag (Bld) [Time] 27.9 s Normal 24.1-36.2 [facility] Comment on above: Performed By: #### L 300.3900, L100.0100, L501.4021, L300.4310, L500.2500 ####[facility] [address] [place], [address] Platelet countOrdered By: Emil Tejeda on 04-23-2025 Platelets (Bld) [#/Vol] 350 10*3/uL 150-450 [facility] Potassium measurement (mass/ volume)Ordered By: Steven Tejeda on 04-23-2025 Potassium (Unsp spec) [Mass/Vol] 3.9 mmol/L 3.3-5.1 [facility] Prothrombin Time w/INRon INR Coag (PPP) [Relative time] 1.1 {INR} Normal [facility] Comment on above: Performed By: #### L 300.3900, L100.0100, L501.4021, L300.4310, L500.2500 ####[facility] [address] [place], [address] PT Coag (PPP) [Time] 14.2 s Normal 11.7-14.9 [facility] Comment on above: Performed By: #### L 300.3900, L100.0100, L501.4021, L300.4310, L500.2500 ####[facility] [address] [place], [place], [address] Prothrombin timeOrdered By: Steven Tejeda on 04-23-2025 PT Coag (PPP) [Time] 14.2 s 11.7-14.9 [facility] RBC Auto (Bld) [#/Vol]Ordere d By: Steven Tejeda on 04-23-2025 RBC (Bld) [#/Vol] 4.71 10*6/uL 4.6-6.2 [facility] STROKE Brain/Head without Co nton 04-23-2025 STROKE Brain/Head without Cont [facility] Imaging Services [address] [place], [place] [address] STROKE Brain/Head without Cont MR#: [id number] Acct: [id number] Name: ITZEL ALONZO Rep #: [id number] : 1950 M 74 From: Deonte Perez MD PCP: Carlene Haji, FOOT CUTTER-C Status: REG ER Study: STROKE Brain/Head without Cont Date of Exam: 0 04/23/25 Exam# [id number] Ordering Dr: Steven Tejeda DO PROCEDURE: STROKE [...] atrophy and chronic microvascular ischemia. Reading Location: [id number] CC: FOOT CUTTER-C Carlene Haji; Dr. Steven Tejeda DO Sharepoint Developer: Signed Normal [facility] STROKE CTA Head AND Neck W/C onon 04-23-2025 STROKE CTA Head AND Neck W/Con [facility] Imaging Services [address], [place] [address] STROKE CTA Head AND Neck W/Con MR#: [id number] Acct: [id number] Name: ITZEL ALONZO Rep #: [id number] : 1950 M 74 From: Deonte Perez MD PCP: SID Haro Status: REG ER Study: STROKE CTA Head AND Neck W/Con Date of Exam: 0 04/23/25 Exam# [id number] Ordering Dr: Steven Tejeda DO PROCEDURE: STROKE [...] occluded similar to the prior CTA. Anatomy: [place] anatomy is normal. Aneurysm or [...] apical mass suspicious for malignancy. Reading Location: [id number] CC: SID Haji; Dr. Steven Tejeda DO Sharepoint Developer: Signed Normal [facility] Serum creatinine measurement (mass/volume)Ordered By: Steven Tejeda on 04-23-2025 Creatinine [Mass/Vol] 0.96 mg/dL 0.70-1.20 [facility] Serum glucose measurement (m ass/volume)Ordered By: Steven Tejeda on 04-23-2025 Glucose [Mass/Vol] 292 mg/dL High 70-99 [facility] Serum or plasma calcium ivania urement (mass/volume)Ordered By: Steven Tejeda on 04-23-2025 Calcium [Mass/Vol] 10.3 mg/dL 7.6-11.0 [facility] Serum or plasma urea nitroge n measurement (mass/volume)Ordered By: Steven Tejeda on 04-23-2025 Urea nitrogen [Mass/Vol] 20 mg/dL High 4-19 [facility] Sodium levelOrdered By: Steven Tejeda on 04-23-2025 Sodium [Moles/Vol] 134 mmol/L 133-145 [facility] Troponin T.cardiac [Mass/vol ume] in Serum or Plasma by High sensitivity methodOrdered By: Steven Tejeda on 04-23-2025 Troponin T.cardiac High sensitivity method [Mass/Vol] 27 ng/L High <22 [facility] Troponin T.cardiac High sensitivity method [Mass/Vol] 26 ng/L High <22 [facility] White blood cell (WBC) count Ordered By: Steven Tejeda on 04-23-2025 WBC (Bld) [#/Vol] 12.9 10*3/uL High 4.4-11.0 [facility] Bedside Glucoseon 12-12-2024 FINGERSTICK GLU 358 mg/dL High 74-106 [facility] Comment on above: Result Comment: BELLA PENALOZA OF PATIENT CARE PER NURSING PROTOCOL Performed By: #### L 100.0100, L500.4050 #### [facility] Laboratory [address] [place], [address] Emergency Department Summary on 12-12-2024 Emergency Department Summary [facility] Medical Records Department [address] [place] [address] Emergency Department Summary 12/12/24 MR#: [id number] Acct: [id number] Name: ITZEL ALONZO Rep #: [id number] : 1950 74 From: Juvencio Shen MD PCP: [facility] Status:DEP ER Location: ED HPI History of Present Illness Chief Complaint: General Illness Narrative Narrative: Patient is a 74-year-old male with history of homelessness, anxiety, depression, PTSD, is part of the [place] [facility], and per the patient has history of lung cancer of the right lung. Patient states that he has been back in the [facility] for the last 6 to 7 months. He called the nurse hotline today, because he has been having some troubles with his fear secondary to his PTSD, he is having difficulty dealing with the war in [place] the [facility] secondary to his family being there. He [...] he is mostly here because of frustration. [facility] Medical History (Updated 12/12/24 @ [...] DAILY heart health 05/09/21 Unknown History release budesonide-formotero l HFA 80 2 puff inhalation BID COPD [...] to auscult (more content not included)... Normal [facility] Abdomen/Pelvis W IV Cont ONL Yon 06-13-2024 Abdomen/Pelvis W IV Cont ONLY [facility] Imaging Services [address] [place] [address] Abdomen/Pelvis W IV Cont ONLY MR#: [id number] Acct: [id number] Name: ITZEL ALONZO Rep #: [id number] : 1950 M 74 From: Myke Mortensen MD PCP: [facility] Status: REG ER Study: Abdomen/Pelvis W IV Cont ONLY Date of Exam: Exam# [id number] Ordering Dr: Juana Michaud MD [id number] INDICATION: abdominal pain EXAMINATION: CT ABDOMEN AND PELVIS WITH CONTRAST - CT Abdomen And Pelvis W/ Contrast Injection TECHNIQUE: Helically acquired images were obtained of the abdomen and pelvis following IV contrast. A radiation dose optimization technique was used for this scan. IV Contrast dosage and agent: 100 cc Isovue-370 Oral contrast: None. COMPARISON: 06/03/2024 ____ FINDINGS: LOWER CHEST: Stable mild fibrotic changes [...] EDT , CC: Dr. Juana Michaud MD; [facility] Sharepoint Developer: Signed Normal [facility] Basic Metabolic Profile (BMP )on 06-13-2024 BUN/CRE 18.4 RATIO Normal - [facility] Comment on above: Performed By: #### L 400.0001 #### [facility] Laboratory [address] [place], [place], [address] (239) CA,Total 9.1 mg/dL Normal 8.5-10.1 [facility] Comment on above: Performed By: #### L 400.0001 #### [facility] Laboratory [address] [place], [address] Chloride [Moles/Vol] 100 mmol/L Normal 98-107 [facility] Comment on above: Performed By: #### L 400.0001 #### [facility] Laboratory [address] [place], [address] CO2 [Moles/Vol] 24.0 mmol/L Normal 21.0-32.0 [facility] Comment on above: Performed By: #### L 400.0001 #### [facility] Laboratory [address] [place], [address] Creatinine [Mass/Vol] 1.47 mg/dL High 0.70-1.30 [facility] Comment on above: Result Comment: The validity of the calculated GFR GFRAA in patients over 70 years has not been determined. Clinical correlation is essential. Performed By: #### L 400.0001 #### [facility] Laboratory [address] [place], [address] ECRCL 48.22 ml/min Normal [facility] Comment on above: Performed By: #### L 400.0001 #### [facility] Laboratory [address] [place], [address] EST GFR - AA 60 mL/min Normal >60 [facility] Comment on above: Result Comment: Afri can Lebanese GFR Calc Performed By: #### L 400.0001 #### [facility] Laboratory [address] [place], [address] GAP 9 Normal 5-15 [facility] Comment on above: Performed By: #### L 400.0001 #### [facility] Laboratory [address] [place], [address] GFR/1.73 sq M.predicted among non-blacks MDRD (S/P/Bld) [Vol rate/Area] 50 mL/min/{1.73_m2} Low >60 [facility] Comment on above: Result Comment: Non- GFR Calc Performed By: #### L 400.0001 #### [facility] Laboratory [address] [place], [address] Glucose [Mass/Vol] 470 mg/dL Invalid Interpretation Code 74-106 [facility] Comment on above: Result Comment: Crit ical Result(s) Called at: 18:33:01 06/13/2024 by: CRYS LOCKHART TO JUSTYNA KEMP. Results read back by same. Glucose result greater than or equal to 200 mg/dL suggests DIABETES MELLITUS per A.D.A. criteria. Performed By: #### L 400.0001 #### [facility] Laboratory [address] [place], [address] Potassium [Moles/Vol] 4.3 mmol/L Normal 3.5-5.1 [facility] Comment on above: Result Comment: Slig ht Hemolysis, Result may be falsely increased. Performed By: #### L 400.0001 #### [facility] Laboratory [address] [place], [address] Sodium [Moles/Vol] 133 mmol/L Low 136-145 [facility] Comment on above: Performed By: #### L 400.0001 #### [facility] Laboratory [address] [place], [address] Urea nitrogen [Mass/Vol] 27 mg/dL High 7-18 [facility] Comment on above: Performed By: #### L 400.0001 #### [facility] Laboratory [address] [place], [address] CBC W/Diff, Automatedon 07-2 0-2023 Absolute Lymph 2.61 X10 3/uL Normal 0.83-4.51 [facility] Comment on above: Performed By: #### L 400.0001 #### [facility] Laboratory [address] [place], [address] Absolute Neut 5.5 X10 3/uL Normal 2.0-7.7 [facility] Comment on above: Performed By: #### L 400.0001 #### [facility] Laboratory [address] [place], [address] Basophils/100 WBC (Bld) 0.2 % Normal 0-1 [facility] Comment on above: Performed By: #### L 400.0001 #### [facility] Laboratory [address] [place], [address] Eosinophils/100 WBC (Bld) 2.0 % Normal 0-5 [facility] Comment on above: Performed By: #### L 400.0001 #### [facility] Laboratory [address] [place], [address] Erythrocyte distribution width (RBC) [Ratio] 16.1 % High 11.6-14.6 [facility] Comment on above: Performed By: #### L 400.0001 #### [facility] Laboratory [address] [place], [address] Hematocrit (Bld) [Volume fraction] 37.0 % Low 40-54 [facility] Comment on above: Performed By: #### L 400.0001 #### [facility] Laboratory [address] [place], [address] Hemoglobin (Bld) [Mass/Vol] 11.0 g/dL Low 13.0-16.5 [facility] Comment on above: Performed By: #### L 400.0001 #### [facility] Laboratory [address] [place], [address] IG% 0.500 Normal 0.0-0.9 [facility] Comment on above: Result Comment: IG% - Immature Granulocytes (promyelocytes, myelocytes and metamyelocytes) > 1% indicates that a LEFT SHIFT is Present. Performed By: #### L 400.0001 #### [facility] Laboratory [address] [place], [address] Lymphocytes/100 WBC (Bld) 29.4 % Normal 19-41 [facility] Comment on above: Performed By: #### L 400.0001 #### [facility] Laboratory [address] [place], [address] MCH (RBC) [Entitic mass] 21.5 pg Low 27.0-32.0 [facility] Comment on above: Performed By: #### L 400.0001 #### [facility] Laboratory [address] [place], [address] MCHC (RBC) [Mass/Vol] 29.7 g/dL Low 32-36 [facility] Comment on above: Performed By: #### L 400.0001 #### [facility] Laboratory [address] [place], [address] MCV (RBC) [Entitic vol] 72.4 fL Low 80-94 [facility] Comment on above: Performed By: #### L 400.0001 #### [facility] Laboratory [address] [place], [address] Monocytes/100 WBC (Bld) 5.6 % Normal 0-10 [facility] Comment on above: Performed By: #### L 400.0001 #### [facility] Laboratory [address] [place], [address] Neutrophils/100 WBC (Bld) 62.3 % Normal 47-70 [facility] Comment on above: Performed By: #### L 400.0001 #### [facility] Laboratory [address] [place], [address] Nucleated RBC (Bld) [#/Vol] 0 10*3/uL Normal 0-5 [facility] Comment on above: Performed By: #### L 400.0001 #### [facility] Laboratory [address] [place], [address] Platelet mean volume (Bld) [Entitic vol] 10.8 fL Normal 6.2-12.0 [facility] Comment on above: Performed By: #### L 400.0001 #### [facility] Laboratory [address] [place], [address] Platelets (Bld) [#/Vol] 285 10*3/uL Normal 150-450 [facility] Comment on above: Performed By: #### L 400.0001 #### [facility] Laboratory [address] [place], [address] RBC (Bld) [#/Vol] 5.11 10*6/uL Normal 4.6-6.2 [facility] Comment on above: Performed By: #### L 400.0001 #### [facility] Laboratory [address] [place], [address] RDW SD 40.9 fl Normal 35.1-43.9 [facility] Comment on above: Performed By: #### L 400.0001 #### [facility] Laboratory [address] [place], [address] WBC (Bld) [#/Vol] 8.9 10*3/uL Normal 4.4-11.0 [facility] Comment on above: Performed By: #### L 400.0001 #### [facility] Laboratory [address] 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 [facility] Medical History Anxiety Hepatitis Smoker [...] DAILY heart health 05/09/21 Unknown History release budesonide-formotero l HFA 80 2 puff inhalation BID COPD [...] PO DAILY #30 tabs 06/13/24 Unknown Rx budesonide-formotero l HFA 80 2 puff inhalation BID #10.2 [...] weakness Psychiatric Psychiatric: Denies anxiety or depression Allergic/Immunologic Allergic/Immunologic ED: Denies lip swelling or urticaria EXAM [...] Wall ins (more content not included)... Normal [facility] Lipaseon 06-13-2024 Lipase [Catalytic activity/Vol] 41 U/L Normal 13-75 [facility] Comment on above: Result Comment: Nesha davison note: LIPASE revised reference range effective 23. New Lipase methodology. Expected to produce lower values than the previous assay method. NEW Reference Range: 13 - 75 U/L Performed By: #### L 400.0001 #### [facility] Laboratory [address] [place], [address] Liver Profileon 06-13-2024 Albumin [Mass/Vol] 3.2 g/dL Normal 3.2-5.0 [facility] Comment on above: Performed By: #### L 400.0001 #### [facility] Laboratory [address] [place], [place], [address] ALK P 131 U/L High 45-117 [facility] Comment on above: Performed By: #### L 400.0001 #### [facility] [address] [place], [address] ALT [Catalytic activity/Vol] 14 U/L Low 16-61 [facility] Comment on above: Performed By: #### L 400.0001 #### [facility] [address] [place], [address] AST [Catalytic activity/Vol] 16 U/L Normal 15-37 [facility] Comment on above: Result Comment: Slig ht Hemolysis, Result may be falsely increased. Performed By: #### L 400.0001 #### [facility] [address] [place], [address] Bilirubin [Mass/Vol] 0.20 mg/dL Normal 0.20-1.00 [facility] Comment on above: Result Comment: For patients on eltrombopag therapy, use of Dimension [place] TBIL is not recommended. Performed By: #### L 400.0001 #### [facility] [address] [place], [address] Bilirubin.direct [Mass/Vol] 0.06 mg/dL Normal 0.00-0.30 [facility] Comment on above: Performed By: #### L 400.0001 #### [facility] [address] [place], [address] Globulin (S) [Mass/Vol] 4.3 g/dL High 2.2-4.2 [facility] Comment on above: Performed By: #### L 400.0001 #### [facility] [address] [place], [address] T PROT 7.5 g/dL Normal 6.4-8.2 [facility] Comment on above: Performed By: #### L 400.0001 #### [facility] [address] [place], [address] Urinalysis, Completeon 06-13 BACTERIA 0 SEEN Normal None Seen [facility] Comment on above: Order Comment: COLLE CTOR TO SPECIFY Performed By: #### L 100.0100, L500.4050 #### [facility] [address] [place], [address] EPI,SQUAMOUS 0 SEEN Normal 0-5 [facility] Comment on above: Order Comment: COLLE CTOR TO SPECIFY Performed By: #### L 100.0100, L500.4050 #### [facility] [address] [place], [address] Mucus Ql (Urine sed) 0 SEEN Normal [facility] Comment on above: Order Comment: COLLE CTOR TO SPECIFY Performed By: #### L 100.0100, L500.4050 #### [facility] [address] [place], [address] RBC 0 SEEN Normal 0-5 [facility] Comment on above: Order Comment: COLLE CTOR TO SPECIFY Performed By: #### L 100.0100, L500.4050 #### [facility] [address] [place], [address] WBC 0 SEEN Normal 0-5 [facility] Comment on above: Order Comment: COLLE CTOR TO SPECIFY Performed By: #### L 100.0100, L500.4050 #### [facility] [address] [place], [address] Abdomen/Pelvis W IV Cont ONL Yon 06-03-2024 Abdomen/Pelvis W IV Cont ONLY [facility] [address] [place] [address] Abdomen/Pelvis W IV Cont ONLY MR#: [id number] Acct: [id number] Name: ITZEL ALONZO Rep #: [id number] : 1950 M 73 From: George Barahona MD PCP: [facility] Status: REG ER Study: Abdomen/Pelvis W IV Cont ONLY Date of Exam: Exam# [id number] Ordering Dr: César Short DO [id number] STUDY: CT ABDOMEN AND PELVIS WITH CONTRAST [...] EDT , CC: Dr. César Short, DO; [facility] Sharepoint Developer: Signed Normal [facility] CBC W/Diff, Automatedon 05-25 0-2023 Absolute Lymph 2.75 X10 3/uL Normal 0.83-4.51 [facility] Comment on above: Performed By: #### L 100.0100, L500.4050 #### [facility] [address] [place], [address] Absolute Neut 4.7 X10 3/uL Normal 2.0-7.7 [facility] Comment on above: Performed By: #### L 100.0100, L500.4050 #### [facility] [address] [place], [address] Basophils/100 WBC (Bld) 0.4 % Normal 0-1 [facility] Comment on above: Performed By: #### L 100.0100, L500.4050 #### [facility] [address] [place], [address] Eosinophils/100 WBC (Bld) 3.0 % Normal 0-5 [facility] Comment on above: Performed By: #### L 100.0100, L500.4050 #### [facility] [address] [place], [address] Erythrocyte distribution width (RBC) [Ratio] 16.5 % High 11.6-14.6 [facility] Comment on above: Performed By: #### L 100.0100, L500.4050 #### [facility] [address] [place], [address] Hematocrit (Bld) [Volume fraction] 37.5 % Low 40-54 [facility] Comment on above: Performed By: #### L 100.0100, L500.4050 #### [facility] [address] [place], [address] Hemoglobin (Bld) [Mass/Vol] 11.3 g/dL Low 13.0-16.5 [facility] Comment on above: Performed By: #### L 100.0100, L500.4050 #### [facility] [address] [place], [address] IG% 0.400 Normal 0.0-0.9 [facility] Comment on above: Result Comment: IG% - Immature Granulocytes (promyelocytes, myelocytes and metamyelocytes) > 1% indicates that a LEFT SHIFT is Present. Performed By: #### L 100.0100, L500.4050 #### [facility] [address] [place], [address] Lymphocytes/100 WBC (Bld) 33.1 % Normal 19-41 [facility] Comment on above: Performed By: #### L 100.0100, L500.4050 #### [facility] [address] [place], [address] MCH (RBC) [Entitic mass] 21.5 pg Low 27.0-32.0 [facility] Comment on above: Performed By: #### L 100.0100, L500.4050 #### [facility] [address] [place], [address] MCHC (RBC) [Mass/Vol] 30.1 g/dL Low 32-36 [facility] Comment on above: Performed By: #### L 100.0100, L500.4050 #### [facility] [address] [place], [address] MCV (RBC) [Entitic vol] 71.3 fL Low 80-94 [facility] Comment on above: Performed By: #### L 100.0100, L500.4050 #### [facility] [address] [place], [address] Monocytes/100 WBC (Bld) 6.0 % Normal 0-10 [facility] Comment on above: Performed By: #### L 100.0100, L500.4050 #### [facility] [address] [place], [address] Neutrophils/100 WBC (Bld) 57.1 % Normal 47-70 [facility] Comment on above: Performed By: #### L 100.0100, L500.4050 #### [facility] [address] [place], [address] Nucleated RBC (Bld) [#/Vol] 0 10*3/uL Normal 0-5 [facility] Comment on above: Performed By: #### L 100.0100, L500.4050 #### [facility] [address] [place], [address] Platelet mean volume (Bld) [Entitic vol] 10.8 fL Normal 6.2-12.0 [facility] Comment on above: Performed By: #### L 100.0100, L500.4050 #### [facility] [address] [place], [address] Platelets (Bld) [#/Vol] 269 10*3/uL Normal 150-450 [facility] Comment on above: Performed By: #### L 100.0100, L500.4050 #### [facility] [address] [place], [address] RBC (Bld) [#/Vol] 5.26 10*6/uL Normal 4.6-6.2 [facility] Comment on above: Performed By: #### L 100.0100, L500.4050 #### [facility] [address] [place], [address] RDW SD 40.8 fl Normal 35.1-43.9 [facility] Comment on above: Performed By: #### L 100.0100, L500.4050 #### [facility] [address] [place], [address] WBC (Bld) [#/Vol] 8.3 10*3/uL Normal 4.4-11.0 [facility] Comment on above: Performed By: #### L 100.0100, L500.4050 #### [facility] [address] [place], [address] Comprehensive Metabolic Prof ilon 06-03-2024 Albumin [Mass/Vol] 3.4 g/dL Normal 3.2-5.0 [facility] Comment on above: Performed By: #### L 100.0100, L500.4050 #### [facility] [address] [place], [address] Albumin/Globulin [Mass ratio] 0.8 {ratio} Low 0.9-2.4 [facility] Comment on above: Performed By: #### L 100.0100, L500.4050 #### [facility] [address] [place], [address] ALK P 135 U/L High 45-117 [facility] Comment on above: Performed By: #### L 100.0100, L500.4050 #### [facility] [address] [place], [address] ALT [Catalytic activity/Vol] 16 U/L Normal 16-61 [facility] Comment on above: Performed By: #### L 100.0100, L500.4050 #### [facility] [address] [place], [address] AST [Catalytic activity/Vol] 19 U/L Normal 15-37 [facility] Comment on above: Performed By: #### L 100.0100, L500.4050 #### [facility] [address] [place], [address] Bilirubin [Mass/Vol] 0.20 mg/dL Normal 0.20-1.00 [facility] Comment on above: Result Comment: For patients on eltrombopag therapy, use of Dimension [place] TBIL is not recommended. Performed By: #### L 100.0100, L500.4050 #### [facility] [address] [place], [address] BUN/CRE 19.4 RATIO Normal 10-20 [facility] Comment on above: Performed By: #### L 100.0100, L500.4050 #### [facility] [address] [place], [address] CA,Total 10.0 mg/dL Normal 8.5-10.1 [facility] Comment on above: Performed By: #### L 100.0100, L500.4050 #### [facility] [address] [place], [address] Chloride [Moles/Vol] 102 mmol/L Normal 98-107 [facility] Comment on above: Performed By: #### L 100.0100, L500.4050 #### [facility] [address] [place], [address] CO2 [Moles/Vol] 27.0 mmol/L Normal 21.0-32.0 [facility] Comment on above: Performed By: #### L 100.0100, L500.4050 #### [facility] [address] [place], [address] Creatinine [Mass/Vol] 1.24 mg/dL Normal 0.70-1.30 [facility] Comment on above: Result Comment: The validity of the calculated GFR GFRAA in patients over 70 years has not been determined. Clinical correlation is essential. Performed By: #### L 100.0100, L500.4050 #### [facility] [address] [place], [address] EST GFR - AA 73 mL/min Normal >60 [facility] Comment on above: Result Comment: Afri can Lebanese GFR Calc Performed By: #### L 100.0100, L500.4050 #### [facility] [address] [place], [address] GAP 5 Normal 5-15 [facility] Comment on above: Performed By: #### L 100.0100, L500.4050 #### [facility] [address] [place], [address] GFR/1.73 sq M.predicted among non-blacks MDRD (S/P/Bld) [Vol rate/Area] 60 mL/min/{1.73_m2} Normal >60 [facility] Comment on above: Result Comment: Non- GFR Calc Performed By: #### L 100.0100, L500.4050 #### [facility] [address] [place], [address] Globulin (S) [Mass/Vol] 4.5 g/dL High 2.2-4.2 [facility] Comment on above: Performed By: #### L 100.0100, L500.4050 #### [facility] [address] [place], [address] Glucose [Mass/Vol] 367 mg/dL High 74-106 [facility] Comment on above: Result Comment: Gluc ose result greater than or equal to 200 mg/dL suggests DIABETES MELLITUS per A.D.A. criteria. Performed By: #### L 100.0100, L500.4050 #### [facility] [address] [place], [address] Potassium [Moles/Vol] 4.7 mmol/L Normal 3.5-5.1 [facility] Comment on above: Performed By: #### L 100.0100, L500.4050 #### [facility] [address] [place], [address] Sodium [Moles/Vol] 134 mmol/L Low 136-145 [facility] Comment on above: Performed By: #### L 100.0100, L500.4050 #### [facility] [address] [place], [address] T PROT 7.9 g/dL Normal 6.4-8.2 [facility] Comment on above: Performed By: #### L 100.0100, L500.4050 #### [facility] [address] [place], [address] Urea nitrogen [Mass/Vol] 24 mg/dL High -18 [facility] Comment on above: Performed By: #### L 100.0100, L500.4050 #### [facility] [address] [place], [address] Emergency Department Summary on 06-03-2024 Emergency Department Summary [facility] Medical Records Department [address] [place] [address] Emergency Department Summary 06/03/24 MR#: [id number] Acct: [id number] Name: CHERIITZEL Carlie Rep #: [id number] : 1950 73 From: César Short DO PCP: [facility] ER Location: ED HPI History of Present [...] very hungry would like to eat the [place] food he brought with him. He has had prior appendectomy and kidney stone. He states he recently returned back to [place] after spending about half a year in [place] visiting his family. He has a history of known diabetes and hypertension. He has no local primary [facility] [place]. Patient denies any abdominal bloating no changes in bowel or bladder habits. No reported fevers. [facility] Medical History Anxiety Hepatitis Smoker [...] DAILY heart health 05/09/21 Unknown History release budesonide-formotero l HFA 80 2 puff inhalation BID COPD [...] Endocrine Endocrinology: Denies polydipsia, polyphagia or polyuria Allergic/Immunologic Allergic/Immunologic ED: Denies mouth swelling, tongue swelling or [...] General Kishore (more content not included)... Normal [facility] Urinalysis, Completeon 06-03 BACTERIA RARE Normal None Seen [facility] Comment on above: Order Comment: CLEAN CATCH Performed By: #### L 400.0001 #### [facility] [address] [place], [place], [address] EPI,SQUAMOUS 0 SEEN Normal 0-5 [facility] Comment on above: Order Comment: CLEAN CATCH Performed By: #### L 400.0001 #### [facility] [address] [place], [address] Mucus Ql (Urine sed) 0 SEEN Normal [facility] Comment on above: Order Comment: CLEAN CATCH Performed By: #### L 400.0001 #### [facility] [address] [place], [address] RBC 0 SEEN Normal 0-5 [facility] Comment on above: Order Comment: CLEAN CATCH Performed By: #### L 400.0001 #### [facility] [address] [place], [address] WBC 0 SEEN Normal 0-5 [facility] Comment on above: Order Comment: CLEAN CATCH Performed By: #### L 400.0001 #### [facility] [address] [place], [place], [address] Vital Signs Date Time Vital Sign Value Performing Clinician Rickey rg 05-13-2025 13:11-0400 Body temperature 97.8 [degF] Dr. Steven Tejeda DO Work Phone: [facility] 05-13-2025 13:11-0400 Diastolic blood pressure 72 mm[Hg] Dr. Steven Tejeda DO Work Phone: [facility] 05-13-2025 13:11-0400 Heart rate 90 /min Dr. Steven Tejeda DO Work Phone: [facility] 05-13-2025 13:11-0400 Respiratory rate 12 /min Dr. Steven Tejeda DO Work Phone: [facility] 05-13-2025 13:11-0400 SaO2% (BldA) [Mass fraction] 95 % Dr. Steven Tejeda DO Work Phone: [facility] 05-13-2025 13:11-0400 Systolic blood pressure 140 mm[Hg] Dr. Steven Tejead DO Work Phone: 1(689)460-726222 [place] [address] 05-13-2025 12:40-0400 Inhaled oxygen flow rate 2 L/min Dr. Steven Tejeda DO Work Phone: 8(856)800-467722 [place] [address] 05-12-2025 11:06-0400 Body height 185.[address] Steven Tejeda DO Work Phone: 8(008)400-079322 [place] [address] 05-12-2025 11:06-0400 Body weight 64.[address] Steven Tejeda DO Work Phone: 9(550)156-939822 [place] [address] 05-11-2025 20:16-0400 Body mass index (BMI) [Ratio] 18.7 kg/m2 Dr. Steven Tejeda DO Work Phone: 6(954)489-317822 [place] [address] 05-11-2025 19:29-0400 Body temperature 98.6 [degF] Dr. Steven Tejeda DO Work Phone: 7(227)580-646422 [place] [address] 05-11-2025 19:29-0400 Diastolic blood pressure 85 mm[Hg] Dr. Steven Tejeda DO Work Phone: 9(664)579-132022 [place] [address] 05-11-2025 19:29-0400 Heart rate 99 /min Dr. Steven Tejeda DO Work Phone: 7(231)905-119722 [place] [address] 05-11-2025 19:29-0400 Respiratory rate 24 /min Dr. Steven Tejeda DO Work Phone: 7(453)887-951322 [place] [address] 05-11-2025 19:29-0400 SaO2% (BldA) [Mass fraction] 95 % Dr. Steven Tejeda DO Work Phone: 9(479)329-960322 [place] [address] 05-11-2025 19:29-0400 Systolic blood pressure 154 mm[Hg] Dr. Steven Tejeda DO Work Phone: 2(830)337-548022 [place] [address] 05-11-2025 14:09-0400 Body mass index (BMI) [Ratio] 19.2 kg/m2 Dr. Steven Tejeda DO Work Phone: 1(775)703-631322 [place] [address] 05-11-2025 14:09-0400 Body weight 66.[address] Steven Tejeda DO Work Phone: [facility] 05-11-2025 14:05-0400 Body height 185.[address] Steven Tejeda DO Work Phone: [facility] 05-04-2025 14:54-0400 Body temperature 98.3 [degF] Dr. Steven Tejeda DO Work Phone: 5(337)349-980422 [place] [address] 05-04-2025 14:54-0400 Diastolic blood pressure 88 mm[Hg] Dr. Steven Tejeda DO Work Phone: 8(692)691-119122 [place] [address] 05-04-2025 14:54-0400 Heart rate 91 /min Dr. Steven Tejeda DO Work Phone: 6(357)502-006622 [place] [address] 05-04-2025 14:54-0400 Respiratory rate 16 /min Dr. Steven Tejeda DO Work Phone: 9(471)100-368122 [place] [address] 05-04-2025 14:54-0400 SaO2% (BldA) [Mass fraction] 98 % Dr. Steven Tejeda DO Work Phone: 6(427)879-078722 [place] [address] 05-04-2025 14:54-0400 Systolic blood pressure 146 mm[Hg] Dr. Steven Tejeda DO Work Phone: 0(617)815-085322 [place] [address] 05-04-2025 11:22-0400 Inhaled oxygen flow rate 97 L/min Dr. Steven Tejeda DO Work Phone: 2(470)983-577822 [place] [address] 05-04-2025 11:13-0400 Body height 185.[address] Steven Tejeda DO Work Phone: 4(955)028-988122 [place] [address] 05-04-2025 11:13-0400 Body mass index (BMI) [Ratio] 18.8 kg/m2 Dr. Steven Tejeda DO Work Phone: 1(313)237-799822 [place] [address] 05-04-2025 11:13-0400 Body weight 64.[address] Steven Tejeda DO Work Phone: 5(575)745-883422 [place] [address] 04-24-2025 00:37-0400 Body temperature 98.2 [degF] Dr. Steven Tejeda DO Work Phone: 2(870)373-286495 [address] [place] [address] 04-24-2025 00:37-0400 Diastolic blood pressure 81 mm[Hg] Dr. Steven Tejeda DO Work Phone: 2(814)152-245695 [address] [address] 04-24-2025 00:37-0400 Heart rate 83 /min Dr. Steven Tejeda DO Work Phone: 8(436)967-050895 [address] [address] 04-24-2025 00:37-0400 Respiratory rate 25 /min Dr. Steven Tejeda DO Work Phone: 5(320)461-201395 [address] [address] 04-24-2025 00:37-0400 SaO2% (BldA) [Mass fraction] 99 % Dr. Steven Tejeda DO Work Phone: 5(652)932-355895 [address] [address] 04-24-2025 00:37-0400 Systolic blood pressure 149 mm[Hg] Dr. Steven Tejeda DO Work Phone: 6(399)041-355895 [address] [place] [address] 04-23-2025 21:27-0400 Body mass index (BMI) [Ratio] 20.8 kg/m2 Dr. Steven Tejeda DO Work Phone: 3(612)301-052095 [address] [place] [address] 04-23-2025 21:07-0400 Body height 185.[address] Steven Tejeda DO Work Phone: 6(494)052-007095 [address] [address] 04-23-2025 21:07-0400 Body weight 71.[address] Steven Tejeda DO Work Phone: 8(856)445-127595 [address] [address] Encounters Encounter Date Encounter Type Care Provider Facility Start: 05-13-2025 Non-patient / Non-visit Dr. Anthony Salgado MD -[facility] Work Phone: Start: 05-12-2025 Non-patient / Non-visit Dr. Anthony Salgado MD -[facility] Work Phone: Start: 05-11-[address] Stanley Fac ility:[facility] Start: 05-11-2025 End: 05-13-2025 Evaluation and management of inpatient Dr. Lane Stanley DO -[facility] Unit Work Phone: Start: 05-04-2025 End: 05-04-2025 Emergency department patient visit Dr. Steven Tejeda DO Work Phone: -Emergency Department Work Phone: Start: 04-23-2025 End: 04-24-2025 Emergency department patient visit Dr. Steven Tejeda DO Work Phone: -Emergency Department Work Phone: Start: 12-12-2024 End: 12-12-2024 Emergency department patient visit [facility] Facility:[facility] Start: 06-13-2024 End: 06-13-2024 Emergency department patient visit [facility] Facility:[facility] Start: 06-03-2024 End: 06-03-2024 Emergency department patient visit [facility] Facility:[facility] Procedures Date Procedure Procedure Detail Performing Clinician Start: 05-13-[address] Steven Tejeda DO Work Phone: Start: 05-12-2025 CT of head without contrast Dr. Steven Tejeda DO Work Phone: Start: 05-11-2025 X-ray of chest, PA a [...] Treatment Date Care Activity Detail Author Start: 05-12-2025 [facility] Start: 05-12-2025 Patient discharge [facility] Start: 05-12-2025 Patient referral to dietitian [facility] Start: 05-11-2025 Following clinical p athway protocol [facility] Start: 05-11-2025 Ambulation without limitation [facility] Start: 05-11-2025 Assessment of risk o f venous thromboembolism [facility] Start: 05-11-2025 Care regimes management [facility] Start: 05-11-2025 Insertion of cathete r into peripheral vein [facility] Start: 05-11-2025 Notification of physician [facility] Start: 05-11-2025 Oxygen therapy [facility] Start: 05-11-2025 Providing care accor ding to standard [facility] Start: 05-11-2025 End: 05-11-2025 [facility] Start: 05-11-2025 Verification routine [facility] Start: 05-11-2025 Admission procedure [facility] Start: 05-11-2025 Hospital admission, emergency, from emergency room, medical nature [facility] Start: 05-11-2025 End: 05-11-2025 [facility] Start: 05-11-2025 Inhalation therapy procedure [facility] Start: 05-11-2025 Patient referral to dietitian [facility] Start: 05-04-2025 [facility] Start: 04-24-2025 [facility] Start: 04-23-2025 Oxygen therapy [facility] Start: 04-23-2025 [facility] Patient Education [facility] Work Phone: Patient referral [facility] Work Phone: Troponin T.cardiac [ Mass/volume] in Serum or Plasma by High sensitivity method [facility] Payers Date Payer Category Payer Self-pay [id number] 2024 Self-pay [id number] 2024 Self-pay Unknown [id number] 2.16.8 [id number] Unknown [id number] 2.16.8 [id number] Unknown [id number] 2.16.8 [id number] Unknown [id number] 2.16.8 [id number] Unknown [id number] 2.16.8 [id number] Unknown [id number] 2.16.8 [id number] Unknown [id number] 2.16.8 [id number] Unknown [id number] 2.16.8 [id number] Unknown [id number] 2.16.8 [id number] Social History Date Type Detail Facility Start: 04-23-2025 End: 05-11-2025 Tobacco smoking status NHIS Current some day smoker [facility] Start: 04-23-2025 Tobacco Use Tobacco Use [facility] Start: 1950 Sex Assigned At Male [facility] Goals Date Patient Goal Desired Activity /State Functional Status Date Assessment Result Facility 05-13-2025 Functional status Ambulates [facility] Work Phone: Mental Status Date Assessment Result Facility 05-13-2025 Cognitive function Voice/Name [facility] Work Phone: 05-11-2025 Cognitive function Voice/Name [facility] Work Phone: 04-23-2025 Cognitive function Voice/Name [facility] Work Phone: Clinical Notes 04-23-2025 to 05-13-2025 Note Date & Type Note Facility 05-13-2025 Discharge summary [facility] 05-13-2025 Consult note [facility] 05-13-2025 Consult note Note Date/Time May 13, 2025 1:57pm [facility] Medical Records Department [address] [place] [address] Pharmacokinetic/Renal -Consult 05/13/25 1107 MR#: [id number] Acct: [id number] Name: ITZEL ALONZO Rep #:[id number] : 1950 74 From: Gaye Garcia PCP: SID Haro Status:ADM IN Location: [place] [address] Consult Antibiotic Management Pharmacy has been consulted to manage selected antibiotic: Vancomycin Type of Intervention Type of Consult: Follow-up Suspected Infection Suspected Infection: Pneumonia Labs Labs: Sodium 137 mmol/L (133-145) 05/13/25 05:18 Potassium 3.2 mmol/L (3.3-5.1) L 05/13/25 05:18 Chloride 104 mmol/L (98-108) 05/13/25 05:18 Carbon Dioxide 22.8 mmol/L (21.0-32.0) 05/13/25 05:18 Anion Gap 11 (5-15) 05/13/25 05:18 BUN 10 mg/dL (4-19) 05/13/25 05:18 Creatinine 1.07 mg/dL (0.70-1.20) 05/13/25 05:18 Est GFR (MDRD) Non-Af 72 (>60) 05/13/25 05:18 BUN/Creatinine Ratio 9.2 RATIO (10-20) L 05/13/25 05:18 Glucose 207 mg/dL (70-99) H 05/13/25 05:18 Vancomycin Trough 8.6 ug/mL (5.0-15.0) 05/13/25 09:33 Microbiology Microbiology: Microbiology 05/11/25 17:54 Stool Stool Occult Blood (RODRIGUEZ) - Final Goal Trough Goal Trough: 15-20 mcg/mL Pharmacy Plan for Drug Dosing Pharmacy Plan for Drug Dosing: VANCOMYCIN LEVEL RECEIVED Current Vancomycin Dose: 500mg Q12H Number of Doses Received: 500mg x2, 1750mg x1 Vancomycin Level: 8.6 Hours Since Last Dose: 12.5 Renal Function: sCr 1.07 Renal Function Trend: stable Lab/Micro: sputum cx pending Vancomycin Plan/Comments: Increase Vancomycin dose to 1000mg Q12H Pending Level: 05/14/25 @ 23:00 Pharmacy Service will continue to monitor and adjust dosing as required. Follow-Up Labs Follow-Up Labs: Trough: Vancomycin (05/14/25 @ 23:00) 05/13/25 1108 <Electronically signed by Gaye Garcia> Date _ Gaye Garcia 05/13/25 1357 <Electronically signed by Anthony Salgado MD> Cosigner Signature (if applicable): Date Anthony Salgado MD CC: ~ Signed [facility] Work Phone: 1(726) 289-446706-19-2025 [facility] Medical Records Department [address] [place] [address] Discharge Summary 05/13/25 1257 MR#: [id number] Acct: [id number] Name: ITZEL ALONZO Rep #: [id number] : 1950 74 From: Anthony Salgado MD PCP: Carlene N Adithya, FOOT C[employer]TER-C Status:ADM IN Location: [facility] [id number] Providers Date of Admission: 05/11/25 Primary Care Physician: SID Haro Reason For Visit: HYPER CO OF MALIGNANCY SUSPECTED UPPER GIB Diagnosis Discharge Diagnosis (1) Lung cancer: Status: Acute Code(s): C34.90 - Malignant neoplasm of unspecified part of unspecified bronchus or lung (2) Hypercalcemia: Status: Acute Code(s): E83.52 - Hypercalcemia (3) Acute on chronic anemia: Status: Chronic Code(s): D64.9 - Anemia, unspecified Plan Patient is a 74-year-old male who presented [facility] ED on 05/11/2025 with worsening fatigue, weakness and confusion. 1. Large right-sided lung cancer with suspected postobstructive pneumonia ??? Admit under inpatient status to PCU. Patient with known history of large right-sided lung cancer. Chest x-ray on admit with concern for acute postobstructive pneumonia in setting of lung cancer. Stable on room air at rest. Patient has established oncologist Dr. Lake, [facility]. I myself tried to contact through the transfer line 2 times but unsuccessful. Discussed with the caser up. [place] oncologist wanted CT head before transfer. In meantime continue vancomycin and Zosyn. Sputum culture is ordered. Patient eager to get treatment for lung cancer although his physical Karnofsky status is not good. Transferred to further care regarding lung cancer to oncologist. 05/13: Patient shortness of breath is better. Is more awake and sitting upright. Mild hypokalemia, potassium replaced 2. Acute metabolic encephalopathy suspected secondary to hypercalcemia of malignancy ??? Calcium 11.2 on admit. Notably calcium was 12.2 on ED visit on 05/04. No prior history of hypercalcemia to this point. Suspect this is hypercalcemia of malignancy in setting of lung cancer and suspect patient's encephalopathy and worsening fatigue and weakness are in part secondary to hypercalcemia. Repeat calcium is 10.3 better. Serum albumin 3.3. Continue IV fluid and follow-up labs tomorrow 05/13: Metabolic encephalopathy resolved. Patient is more awake and alert. Calcium 9.7. 3. Acute on chronic anemia with suspected upper GI bleed ??? Hemoglobin 8.7 on admit, MCV 66. Slow hemoglobin downtrend over the past few months. Patient reports dark stools over the past 1 to 2 weeks. Stool occult sample was negative. However, most likely etiology for acute on chronic anemia appears to be slow upper GI bleed. Does report acid reflux symptoms recently. Suspect his lung cancer may be contributing to irritation and inflammation of the esophagus possibly due to esophagitis or gastritis and upper GI bleed. Will treat with IV PPI twice daily for now. As plan is for transfer to the [place], will hold on GI consult for now. Monitor daily CBC. 05/13: Hemoglobin 7.7/25.4%. Monitor hemoglobin daily. If less than 7 g will need PRBC transfusion. 4. Underweight BMI with suspected malnutrition ??? Nutrition consulted. BMI 18.8 on admit. Appreciate nutrition recommendations. 5. COPD ??? Stable on room air at rest in the ED, not in acute exacerbation. Continue home inhalers. 6. Hypertension, hyperlipidemia, history of CVA ??? Hypertensive to the 150s to 160s in the ED. Continue home aspirin, statin and amlodipine. 7. Type 2 diabetes mellitus with neuropathy ??? Blood glucose 244 on admit. Will treat with Lantus 10 units at night and sliding scale insulin with meals for now, adjust as needed. Continue home gabapentin. DVT prophylaxis: SCDs CODE STATUS: Full code, verified Expected disposition: Likely transfer to [place] Patient is being transferred to [facility] for further care and decision making regarding care of right lung cancer Medications at Discharge Home Medications gabapentin 300 mg capsule 300 mg PO TID neuropathy 02/24/15 amlodipine 5 mg tablet 5 mg PO QHS blood pressure 05/09/21 aspirin 81 mg tablet,delayed release 81 mg PO DAILY heart health 05/09/21 budesonide-formoterol HFA 80 mcg-4.5 mcg/actuation aerosol inhaler (Symbicort) 2 puff inhalation BID COPD 05/09/21 cyclobenzaprine 10 mg tablet 10 mg PO TID PRN muscle spasms 05/09/21 sildenafil 100 mg tablet 100 mg PO DAILY PRN Erectile Dysfunction 05/09/21 atorvastatin 80 mg tablet 80 mg PO QHS #90 tabs 05/12/21 insulin aspart U-100 100 unit/mL (3 mL) subcutaneous pen (Novolog FlexPen U-100 Insulin aspart) 10 unit subcut TIDCM 12/12/24 insulin glargine 100 unit/mL (3 mL) subcutaneous pen (Lantus Solostar U-100 Insulin) 10 unit subcut QPM 05/04/25 magnesium hydroxide 400 mg/5 mL oral suspension (Gentle Laxative (magnesium hydroxide)) 5 ml PO DAILY PRN c (more content not included)...[facility]06-18-2025 Progress note Author Anthony Salgado [facility] Note Date/Time May 12, 2025 5:22 pm [facility] Medical Records Department [address] [place] [address] Progress Note - Hospitalist 05/12/25 0935 MR#: [id number] Acct: [id number] Name: ITZEL ALONZO Rep #:[id number] : 1950 74 From: Anthony Kiser PCP: SID Haro Status:ADM IN Location: [place] [address] Reason for Visit Reason for Visit: Diagnoses Malignant neoplasm of unspecified part of unspecified bronchus or lung (05/11/25) Anemia, unspecified (05/11/25) Hypercalcemia (05/11/25) Objective Data Objective Data Vital Signs: Vital Signs Temp Pulse Resp BP Pulse Ox O2 Del Method 98.7 F 98 18 168/84 H 99 Room Air 05/12/25 03:22 05/12/25 06:45 05/12/25 06:45 05/12/25 03:22 05/12/25 06:45 05/12/25 06:45 Oxygen Delivery Method Room Air Weight: 142 lb 3.17 oz Body Mass Index (BMI) 18.7 Intake & Output: Intake and Output for Last 24 Hours 05/10/25 05/11/25 05/12/25 23:59 23:59 23:59 Intake Total 2243.33 / 2243.33 1933.33 / 1933.33 Output Total 0 / 0 1600 / 1600 Balance 2243.33 / 2243.33 333.33 / 333.33 Lab / Micro Data 05/12/25 05:58 05/12/25 05:58 Labs: Laboratory Results - last 24 hr 05/11/25 15:20: WBC 11.6 H, RBC 4.35 L, Hgb 8.7 L, Hct 28.9 L, MCV 66.4 L, MCH 20.0 L, MCHC 30.1 L, RDW Std Deviation 44.7 H, RDW Coeff of Tiffany 19.0 H, Plt Count 404, MPV 9.5, Immature Gran % (Auto) 0.400, Neut % (Auto) 74.3 H, Lymph % (Auto) 18.4 L, [place] % (Auto) 5.8, Eos % (Auto) 0.8, Baso % (Auto) 0.3, Absolute Neuts (auto) 8.6 H, Absolute Lymphs (auto) 2.13, Nucleated RBC % 0, Sodium 136, Potassium 3.5, Chloride 99, Carbon Dioxide 26.3, Anion Gap 11, BUN 14, Creatinine 1.20, Estim Creat Clear Calc 49.04 L, Est GFR (MDRD) Non-Af 63, BUN/Creatinine Ratio 11.3, Glucose 244 H, Lactic Acid 1.8, Calcium 11.2 H, TotalBilirubin 0.41, AST 23, ALT 12, Alkaline Phosphatase 128, Troponin T High Sens 39 H D, Total Protein 7.4, Albumin 3.3 L, Globulin 4.2, Albumin/Globulin Ratio 0.8 L 05/11/25 17:16: Troponin T Hi Sens 2 Hr 37 H 05/11/25 19:42: Troponin T Hi Sens 4Hr 39 H 05/11/25 21:48: POC Glucose 242 H 05/12/25 05:58: WBC 13.2 H, RBC 4.28 L, Hgb 8.4 L, Hct 27.8 L, MCV 65.0 L, MCH 19.6 L, MCHC 30.2 L, RDW Std Deviation 43.0, RDW Coeff of Tiffany 18.6 H, Plt Count 411, MPV 9.8, Sodium 138, Potassium 3.2 L, Chloride 103, Carbon Dioxide 23.7, Anion Gap 11, BUN 10, Creatinine 0.92, Estim Creat Clear Calc 62.32, Est GFR (MDRD) Non-Af 87, BUN/Creatinine Ratio 10.8, Glucose 159 H, Calcium 10.3, Total Bilirubin 0.44, Direct Bilirubin 0.23, AST 23, ALT 11, Alkaline Phosphatase 131 H, Total Protein 7.1, Albumin 3.3 L, Globulin 3.8 05/12/25 06:34: POC Glucose 160 H Micro: Microbiology 05/11/25 17:54 Stool Stool Occult Blood (RODRIGUEZ) - Final Radiography Diagnostic Testing: Radiology Impression Chest X-Ray 05/11/25 15:30 IMPRESSION: In <3 weeks since the prior radiograph there has developed greater opacity in the suprahilar right lung mass suggesting acute postobstruction pneumonia with residual large suprahilar tumor. 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 Reading Location: [facility] Physical Exam Narrative Seen and examined Patient has mild lethargic but wake up. Shortness of breath mild chest congestion. Diagnosed with a right suprahilar lung cancer, exact sampler/tissuetype unclear. Follows [place] oncologist, await path . Because of transportation he said he could not follow-up to December therefore exact courseof chemotherapy not clear but he is eager to have chemotherapy. His physical and functional status is suboptimal/not good. Very weak, difficulty in sitting up from supine position. Physical exam General: Awake, oriented x 3. BMI 18.8 kg/m?, mild chronic malnutrition. Chronic fatigue HEENT: Atraumatic, PERRLA, EOMI, Normocephalic. Oral: No Gingival or Mucosal Lesions/ Ulcerations Neck: Supple, No JVD, Negative Carotid Bruits Chest wall/Lungs: Air entry diminished in bilateral lung bases. Bilateral coarse crepitations Cardiovascular: Sinus rhythm, Normal S1,S2, No M/G/R Abdomen: Bowel Sounds Present, Soft, Non Tender, Non-Distended : No dysuria. No renal angle tenderness. No suprapubic tenderness. Extremities: No edema, Capillary Refill Less than 3 Seconds Skin: No rashes, No breakdown Musculoskeletal: No Tenderness to Palpation of Joints or Extremities. ROM limited. Neurological: Cranial nerves II-XII grossly intact, DTR 2+/4. No acute focal neurological deficit. Psych/Mental Status: Flat affect Assessment & Plan Assessment/Plan (1) Lung cancer: (2) Hypercalcemia: (3) Acute on chronic anemia: PLAN: Plan Patient is a 74-year-old male who presented [facility] ED on 05/11/2025 with worsening fatigue, weakness and confusion. 1. Large right-sided lung cancer with suspected postobstructive pneumonia ? Admit under inpatient status to PCU. Patient with known history of large right-sided lung cancer. Chest x-ray on admit with concern for acute postobstructive pneumonia in setting of lung cancer. Stable on room air at rest. Patient has established oncologist Dr. Lake, [facility]. I myself tried to contact through the transfer line 2 times but unsuccessful. Discussed with the caser up. [place] oncologist wanted CT head before transfer. In meantime continue vancomycin and Zosyn. Sputum culture is ordered. Patient eager to gettreatment for lung cancer although his physical Karnofsky status is not good. Transferred to further care regarding lung cancer to oncologist. 2. Acute metabolic encephalopathy suspected secondary to hypercalcemia of malignancy ? Calcium 11.2 on admit. Notably calcium was 12.2 on ED visit on 05/04. No prior history of hypercalcemia to this point. Suspect this is hypercalcemia of malignancy in setting of lung cancer and suspect patient's encephalopathy and worsening fatigue and weakness are in part secondary to hypercalcemia. Repeat calcium is 10.3 better. Serum albumin 3.3. Continue IV fluid and follow-up labs tomorrow 3. Acute on chronic anemia with suspected upper GI bleed ? Hemoglobin 8.7 on admit, MCV 66. Slow hemoglobin downtrend over the past few months. Patient reports dark stools over the past 1 to 2 weeks. Stool occult sample was negative. However, most likely etiology for acute on chronic anemia appears to be slow upper GI bleed. Does report acid reflux symptoms recently. Suspect his lung cancer may be contributing to irritation and inflammation of the esophagus possibly due to esophagitis or gastritis and upper GI bleed. Willtreat with IV PPI twice daily for now. As plan is for transfer to the [place], will hold on GI consult for now. Monitor daily CBC. 4. Underweight BMI with suspected malnutrition ? Nutrition consulted. BMI 18.8 on admit. Appreciate nutrition recommendations. 5. COPD ? Stable on room air at rest in the ED, not in acute exacerbation. Continue home inhalers. 6. Hypertension, hyperlipidemia, history of CVA ? Hypertensive to the 150s to 160s in the ED. Continue home aspirin, statin andamlodipine. 7. Type 2 diabetes mellitus with neuropathy ? Blood glucose 244 on admit. Will treat with Lantus 10 units at night and sliding scale insulin with meals for now, adjust as needed. Continue home gabapentin. DVT prophylaxis: SCDs CODE STATUS: Full code, verified Expected disposition: Likely transfer to [place] Total time of the visit including total time spent in counseling or coordinationof care, (more than 50% of the total time, spent in obtaining medical information from nurses and other ancillary care providers ,explaining to the patient about labs, imaging, diagnosis and management of active complex medical conditions), effort to transfer [facility], discussion with caser up, review of labs and imaging is 35 minutes. Microbiology Past 72 Hours 05/11/25 17:54 Stool Stool Occult Blood (RODRIGUEZ) - Final Laboratory Results 05/11/25 17:16: Troponin T Hi Sens 2 Hr 37 H 05/11/25 19:42: Troponin T Hi Sens 4Hr 39 H 05/11/25 21:48: POC Glucose 242 H 05/12/25 05:58: WBC 13.2 H, RBC 4.28 L, Hgb 8.4 L, Hct 27.8 L, MCV 65.0 L, MCH 19.6 L, MCHC 30.2 L, RDW Std Deviation 43.0, RDW Coeff of Tiffany 18.6 H, Plt Count 411, MPV 9.8, Sodium 138, Potassium 3.2 L, Chloride 103, Carbon Dioxide 23.7, Anion Gap 11, BUN 10, Creatinine 0.92, Estim Creat Clear Calc 62.32, Est GFR (MDRD) Non-Af 87, BUN/Creatinine Ratio 10.8, Glucose 159 H, Calcium 10.3, Total Bilirubin 0.44, Direct Bilirubin 0.23, AST 23, ALT 11, Alkaline Phosphatase 131 H, Total Protein 7.1, Albumin 3.3 L, Globulin 3.8 05/12/25 06:34: POC Glucose 160 H 05/12/25 11:54: POC Glucose 310 H 05/12/25 15:54: POC Glucose 278 H Charges/Coding Visit Charges Inpatient E&M: 99894 Subs Hosp L3 05/12/25 1722 <Electronically signed by Anthony Salgado MD> Cosigner Signature (if applicable): CC: ~ Signed [facility] Work Phone: 1(213) 481-557806-18-2025 Radiology Diagnostic study note [facility] Imaging Services [address] [place], [place] [address] Brain/Head W/WO Contrast MR#: [id number] Acct: [id number] Name: ITZEL ALONZO Rep #: [id number] : 1950 M 74 From: Estella Coley MD PCP: SID Haro Status: ADM IN Study:Brain/Head W/WO Contrast Date of Exam: 05/12/25 Exam# [id number] Ordering Dr: Venessa Salgado MD PROCEDURE: BRAIN/HEAD W/WO CONTRAST 05/12/2025 REASON FOR EXAM: TO RULE OUT BRAIN METS. HISTORY OF LUNG CANCER TECHNIQUE: BRAIN/HEAD W/WO CONTRAST coronal and Sagittal reconstruction series were provided. CONTRAST: 46 mL of Isovue-300 L One or more dose reduction techniques were used (e.g., Automated exposure control, adjustment of the mA and/or kV according to patient size, use of iterative reconstruction technique). RADIATION DOSE SUMMARY: DLP: 1648 mGycm COMPARISON: 05/04/2025 FINDINGS: No abnormal enhancing lesion. No mass effect. Stable right parietal encephalomalacia likely from prior chronic infarction. Right cerebellar encephalomalacia likely from prior chronic infarction. There is no acute infarct, or intracranial hemorrhage. There is no hydrocephalus or significant midline shift. There is moderate chronic microvascular ischemic changes and moderate parenchymal volume loss. No acute, depressed calvarial fractures. No large scalp hematomas. CT/Brain/Head W/WO Contrast IMPRESSION: No abnormal enhancing mass. No acute intracranial process. Reading Location: [id number] CC: FOOT CUTTER-C Carlene Haji; Dr. Anthony Salgado MD ~ Sharepoint Developer: Signed [facility]06-18-2025 Progress note [facility] Medical Records Department [address] [place] [address] Progress Note - Hospitalist 05/12/25 0935 MR#: [id number] Acct: [id number] Name: ITZEL ALONZO Rep #:[id number] : 1950 74 From: Anthony Kiser PCP: SID Haro Status:ADM IN Location: [place] [address] 1 Reason for Visit Reason for Visit: Diagnoses Malignant neoplasm of unspecified part of unspecified bronchus or lung (05/11/25) Anemia, unspecified (05/11/25) Hypercalcemia (05/11/25) Objective Data Objective Data Vital Signs: Vital Signs Temp Pulse Resp BP Pulse Ox O2 Del Method 98.7 F 98 18 168/84 H 99 Room Air 05/12/25 03:22 05/12/25 06:45 05/12/25 06:45 05/12/25 03:22 05/12/25 06:45 05/12/25 06:45 Oxygen Delivery Method Room Air Weight: 142 lb 3.17 oz Body Mass Index (BMI) 18.7 Intake & Output: Intake and Output for Last 24 Hours 05/10/25 05/11/25 05/12/25 23:59 23:59 23:59 Intake Total 2243.33 / 2243.33 1933.33 / 1933.33 Output Total 0 / 0 1600 / 1600 Balance 2243.33 / 2243.33 333.33 / 333.33 Lab / Micro Data 05/12/25 05:58 05/12/25 05:58 Labs: Laboratory Results - last 24 hr 05/11/25 15:20: WBC 11.6 H, RBC 4.35 L, Hgb 8.7 L, Hct 28.9 L, MCV 66.4 L, MCH 20.0 L, MCHC 30.1 L,RDW Std Deviation 44.7 H, RDW Coeff of Tiffany 19.0 H, Plt Count 404, MPV 9.5, Immature Gran % (Auto) 0.400, Neut % (Auto) 74.3 H, Lymph % (Auto) 18.4 L, [place] % (Auto) 5.8, Eos % (Auto) 0.8, Baso % (Auto) 0.3, Absolute Neuts (auto) 8.6 H, Absolute Lymphs (auto) 2.13, Nucleated RBC % 0, Sodium 136, Potassium 3.5, Chloride 99, Carbon Dioxide 26.3, Anion Gap 11, BUN 14, Creatinine 1.20, Estim Creat Clear Calc 49.04 L, Est GFR (MDRD) Non-Af 63, BUN/Creatinine Ratio 11.3, Glucose 244 H, Lactic Acid 1.8,Calcium 11.2 H, TotalBilirubin 0.41, AST 23, ALT 12, Alkaline Phosphatase 128, Troponin T High Sens39 H D, Total Protein 7.4, Albumin 3.3 L, Globulin 4.2, Albumin/Globulin Ratio 0.8 L 05/11/25 17:16: Troponin T Hi Sens 2 Hr 37 H 05/11/25 19:42: Troponin T Hi Sens 4Hr 39 H 05/11/25 21:48: POC Glucose 242 H 05/12/25 05:58: WBC 13.2 H, RBC 4.28 L, Hgb 8.4 L, Hct 27.8 L, MCV 65.0 L, MCH 19.6 L, MCHC 30.2 L,RDW Std Deviation 43.0, RDW Coeff of Tiffany 18.6 H, Plt Count 411, MPV 9.8, Sodium 138, Potassium 3.2 L, Chloride 103, Carbon Dioxide 23.7, Anion Gap 11, BUN 10, Creatinine 0.92, Estim Creat Clear Calc 62.32, Est GFR (MDRD) Non-Af 87, BUN/Creatinine Ratio 10.8, Glucose 159 H, Calcium 10.3, Total Bilirubin 0.44, Direct Bilirubin 0.23, AST 23, ALT 11, Alkaline Phosphatase 131 H, Total Protein 7.1, Albumin 3.3 L, Globulin 3.8 05/12/25 06:34: POC Glucose 160 H Micro: Microbiology 05/11/25 17:54 Stool Stool Occult Blood (RODRIGUEZ) - Final Radiography Diagnostic Testing: Radiology Impression Chest X-Ray 05/11/25 15:30 IMPRESSION: In <3 weeks since the prior radiograph there has developed greater opacity in the suprahilar right lung mass suggesting acute postobstruction pneumonia with residual large suprahilar tumor. 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 Reading Location[facility] Physical Exam Narrative Seen and examined Patient has mild lethargic but wake up. Shortness of breath mild chest congestion. Diagnosed with aright suprahilar lung cancer, exact sampler/tissuetype unclear. Follows [place] oncologist, await path . Because of transportation he said he could not follow-up to February therefore exact courseofchemotherapy not clear but he is eager to have chemotherapy. His physical and functional status is suboptimal/not good. Very weak, difficulty in sitting up from supine position. Physical exam General: Awake, oriented x 3. BMI 18.8 kg/m?, mild chronic malnutrition. Chronic fatigue HEENT: Atraumatic, PERRLA, EOMI, Normocephalic. Oral: No Gingival or Mucosal Lesions/ Ulcerations Neck: Supple, No JVD, Negative Carotid Bruits Chest wall/Lungs: Air entry diminished in bilateral lung bases. Bilateral coarse crepitations Cardiovascular: Sinus rhythm, Normal S1,S2, No M/G/R Abdomen: Bowel Sounds Present, Soft, Non Tender, Non-Distended : No dysuria. No renal angle tenderness. No suprapubic tenderness. Extremities: No edema, Capillary Refill Less than 3 Seconds Skin: No rashes, No breakdown Musculoskeletal: No Tenderness to Palpation of Joints or Extremities. ROM limited. Neurological: Cranial nerves II-XII grossly intact, DTR 2+/4. No acute focal neurological deficit. Psych/Mental Status: Flat affect Assessment & Plan Assessment/Plan (1) Lung cancer: (2) Hypercalcemia: (3) Acute on chronic anemia: PLAN: Plan Patient is a 74-year-old male who presented [facility] ED on 05/11/2025 with worsening fatigue, weakness and confusion. 1. Large right-sided lung cancer with suspected postobstructive pneumonia ? Admit under inpatient status to PCU. Patient with known history of large right-sided lung cancer.Chest x-ray on admit with concern for acute postobstructive pneumonia in setting of lung cancer. Stable on room air at rest. Patient has established oncologist Dr. Lake, [facility]. I myself tried to contact through the transfer line 2 times but unsuccessful. Discussed with the caser up. [facility] oncologist wanted CT head before transfer. In meantime continue vancomycin and Zosyn. Sputum culture isordered. Patient eager to gettreatment for lung cancer although his physical Karnofsky status is not good. Transferred to further care regarding lung cancer to oncologist. 2. Acute metabolic encephalopathy suspected secondary to hypercalcemia of malignancy ? Calcium 11.2 on admit. Notably calcium was 12.2 on ED visit on 05/04. No prior history of hypercalcemia to this point. Suspect this is hypercalcemia of malignancy in setting of lung cancer and suspect patient's encephalopathy and worsening fatigue and weakness are in part secondary to hypercalcemia. Repeat calcium is 10.3 better. Serum albumin 3.3. Continue IV fluid and follow-up labs tomorrow 3. Acute on chronic anemia with suspected upper GI bleed ? Hemoglobin 8.7 on admit, MCV 66. Slow hemoglobin downtrend over the past few months. Patient reports dark stools over the past 1 to 2 weeks. Stool occult sample was negative. However, most likely etiology for acute on chronic anemia appears to be slow upper GI bleed. Does report acid reflux symptoms recently. Suspect his lung cancer may be contributing to irritation and inflammation of the esophagus possibly due to esophagitis or gastritis and upper GI bleed. Willtreat with IV PPI twice dailyfor now. As plan is for transfer to the [facility], will hold on GI consult for now. Monitor daily CBC. 4. Underweight BMI with suspected malnutrition ? Nutrition consulted. BMI 18.8 on admit. Appreciate nutrition recommendations. 5. COPD ? Stable on room air at rest in the ED, not in acute exacerbation. Continue home inhalers. 6. Hypertension, hyperlipidemia, history of CVA ? Hypertensive to the 150s to 160s in the ED. Continue home aspirin, statin andamlodipine. 7. Type 2 diabetes mellitus with neuropathy ? Blood glucose 244 on admit. Will treat with Lantus 10 units at night and sliding scale insulin with meals for now, adjust as needed. Continue home gabapentin. DVT prophylaxis: SCDs CODE STATUS: Full code, verified Expected disposition: Likely transfer to [facility] Total time of the visit including total time spent in counseling or coordinationof care, (more than50% of the total time, spent in obtaining medical information from nurses and other ancillary care providers ,explaining to the patient about labs, imaging, diagnosis and management of active complexmedical conditions), effort to transfer [facility], discussion with caser up, review of labs and imaging is 35 minutes. Microbiology Past 72 Hours 05/11/25 17:54 Stool Stool Occult Blood (RODRIGUEZ) - Final Laboratory Results 05/11/25 17:16: Troponin T Hi Sens 2 Hr 37 H 05/11/25 19:42: Troponin T Hi Sens 4Hr 39 H 05/11/25 21:48: POC Glucose 242 H 05/12/25 05:58: WBC 13.2 H, RBC 4.28 L, Hgb 8.4 L, Hct 27.8 L, MCV 65.0 L, MCH 19.6 L, MCHC 30.2 L,RDW Std Deviation 43.0, RDW Coeff of Tiffany 18.6 H, Plt Count 411, MPV 9.8, Sodium 138, Potassium 3.2 L, Chloride 103, Carbon Dioxide 23.7, Anion Gap 11, BUN 10, Creatinine 0.92, Estim Creat Clear Calc 62.32, Est GFR (MDRD) Non-Af 87, BUN/Creatinine Ratio 10.8, Glucose 159 H, Calcium 10.3, Total Bilirubin 0.44, Direct Bilirubin 0.23, AST 23, ALT 11, Alkaline Phosphatase 131 H, Total Protein 7.1, Albumin 3.3 L, Globulin 3.8 05/12/25 06:34: POC Glucose 160 H 05/12/25 11:54: POC Glucose 310 H 05/12/25 15:54: POC Glucose 278 H Charges/Coding Visit Charges Inpatient E&M: 60810 Subs Hosp L3 05/12/25 1722 Cosigner Signature (if applicable): CC: ~ Signed [facility]06-18-2025 History and physical note Author Lane Stanley [facility] Note Date/Time May 12, 2025 12:4 6am [facility] Medical Records Department [address] [place] [address] H&P Exam - Hospitalist 05/11/251918 MR#: [id number] Acct: [id number] Name: ITZEL ALONZO Carlie Rep #:[id number] : 1950 74 From: Lane dunn DO PCP: SID Haro Status:ADM IN Location: [address] HPI - General General Date of Admission: 05/11/25 Date of Service: 05/11/25 Chief Complaint: Worsening fatigue, weakness and confusion HPI Narrative ITZEL ALONZO, is a 74 M who presented to [facility] ED on 05/11/2025 with worsening fatigue, weakness and confusion. Patient has been seenin [facility] ED recently [facility] He was diagnosed with right- sided lung cancer about 1 year ago. It appears this diagnosis was confirmed on bronchial biopsy. Patient declined active treatment at that time and preferred close monitoring. However, patient has issues with transportationand has had difficulty getting to his appointments with oncology at the [facility]. He lives at home with his significant other who was present at the bedside today. Patient has had worsening fatigue and weakness over the past week or so. He hasalso had intermittent confusion and significant other notes this has become morenoticeable over the past few days. He was seen in the ED here on 05/04 for a mechanical fall; workup was negative and he was able to be discharged home. ED physician noted today that patient was disoriented to time and slow to respond to questions. Lab workup notable for calcium 11.2; notably was 12.2 on 05/04. Hemoglobin has slowly been downtrending with hemoglobin 8.7 in the ED today. Chest x-ray shows a greater opacity within the suprahilar right lung mass suggesting acute postobstructive pneumonia with residual large suprahilar tumor. Stool occult was positive. Given these findings, hospitalist was contacted foradmission. I saw the patient at bedside in the ED, significant other was present. He was mildly fatigued appearing but otherwise sitting back comfortably in bed and in no acute distress. He was answering questions appropriately for me, though his answers were somewhat slowed. He was breathingcomfortably on room air at rest. He denied any acute pain or discomfort. He does report worsening shortness of breath and cough with activity recently. He does note intermittent dark stools over the past 1 to 2 weeks. Also notes worsening acid reflux symptoms in that timeframe. No other acute concerns currently. Will be admitted for further management. Importantly, I discussed the case over the phone with the transfer nurse with the [facility] good[facility]. Nurse noted that transfer could be initiated there but as the admitting physician was gone for the day, transfer will not happen until tomorrow at the earliest. 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 05/09/21 Unknown History mcg-4.5 mcg/actuation aerosol inhaler (Symbicort) cyclobenzaprine 10 mg tablet 10 mg PO TID PRN muscle s pasms 05/09/21 Unknown History sildenafil 100 mg tablet 100 mg PO DAILY PRN Erectile 05/09/21 Unknown History Dysfunction atorvastatin 80 mg tablet 80 mg PO QHS #90 tabs Unknown Rx insulin aspart U-100 100 unit/mL 10 unit subcut TIDCM 12/12/24 Unknown History (3 mL) subcutaneous pen (Novolog FlexPen U-100 Insulin aspart) insulin glargine 100 unit/mL (3 10 unit subcut QPM 09/18 Unknown History mL) subcutaneous pen (Lantus Solostar U-100 Insulin) magnesium hydroxide 400 mg/5 mL 5 ml PO DAILY PRN cons tipation 05/04/25 05/03/25 History oral suspension (Gentle Laxative (magnesium hydroxide)) ropinirole 1 mg tablet 1 mg PO DAILY 05/04/25 Unkno wn History Allergy/AdvReac Type Severity Reaction Status Date / Time No Known Allergies Allergy Verified 05/11/25 14:05 Family History Mother CVA (cerebral vascular accident) Surgical History Hx of appendectomy Social History household members: none housing: apartment Smoking Status: Current some day smoker tobacco type: cigarettes and cigars ROS Constitutional Constitutional: Reports fatigue and weakness; Denies chills or fever(s) Eyes Eyes: Denies change in vision Cardiovascular Cardiovascular: Reports dyspnea on exertion; Denies chest pain, edema or lightheadedness Respiratory/Chest Respiratory/Chest: Denies cough, productive cough, shortness of breath at rest or wheezing Gastrointestinal Gastrointestinal: Denies abdominal pain Genitourinary Genitourinary: Denies dysuria Musculoskeletal Musculoskeletal: Denies arthralgias or myalgias Vital Signs Vital Signs Vital Signs: 05/11/25 14:05 05/11/25 14:30 05/11/25 [...] Ox 95 Oxygen Delivery Method Room Air Weight Weight: 66.2 kg Body Mass Index (BMI) 19.2 Physical Exam Const alert and no apparent distress Constitutional Narrative: Elderly male, thin and somewhat cachectic appearing, alert and oriented but withslowed responses noted, otherwise laying back comfortably in bed, answering questions with short appropriate responses, in no acute distress. General Appearance: cooperative and comfortable HEENT normocephalic, head/scalp atraumatic, hearing grossly normal bilaterally, nasal mucous membranes and turbinates normal and moist oral mucous membranes Eyes PERRL, EOMs intact bilaterally and conjunctivae normal Neck full ROM Chest inspection of chest normal Resp normal respiratory effort and no use of accessory muscles Resp Narrative: Breathing comfortably on room air at rest. Significantly diminished breath sounds in right upper lung zones with mild crackles noted in mid lung zones bilaterally. No wheezing noted. Cardio no murmurs and peripheral pulses 2+ throughout Cardio Narrative: Tachycardic, regular rhythm. GI normal to inspection, nondistended, normoactive bowel sounds, soft to palpation,non-tender and non-distended Back/Spine normal ROM Extremity normal to inspection, full ROM and no pedal edema Skin no rashes or lesions noted Neuro moves all extremities and no focal motor deficits Results Lab / Micro Data 05/11/25 15:20 05/11/25 15:20 Labs: Laboratory Results - last 24 hr 05/11/25 15:20: WBC 11.6 H, RBC 4.35 L, Hgb 8.7 L, Hct 28.9 L, MCV 66.4 L, MCH 20.0 L, MCHC 30.1 L, RDW Std Deviation 44.7 H, RDW Coeff of Tiffany 19.0 H, Plt Count 404, MPV 9.5, Immature Gran % (Auto) 0.400, Neut % (Auto) 74.3 H, Lymph % (Auto) 18.4 L, [place] % (Auto) 5.8, Eos % (Auto) 0.8, Baso % (Auto) 0.3, Absolute Neuts (auto) 8.6 H, Absolute Lymphs (auto) 2.13, Nucleated RBC % 0, Sodium 136, Potassium 3.5, Chloride 99, Carbon Dioxide 26.3, Anion Gap 11, BUN 14, Creatinine 1.20, Estim Creat Clear Calc 49.04 L, Est GFR (MDRD) Non-Af 63, BUN/Creatinine Ratio 11.3, Glucose 244 H, Lactic Acid 1.8, Calcium 11.2 H, TotalBilirubin 0.41, AST 23, ALT 12, Alkaline Phosphatase 128, Troponin T High Sens 39 H D, Total Protein 7.4, Albumin 3.3 L, Globulin 4.2, Albumin/Globulin Ratio 0.8 L 05/11/25 17:16: Troponin T Hi Sens 2 Hr 37 H Micro: Microbiology 05/11/25 17:54 Stool Stool Occult Blood (RODRIGUEZ) - Final Imaging Radiology Impression Chest X-Ray 05/11/25 15:30 IMPRESSION: In <3 weeks since the prior radiograph there has developed greater opacity in the suprahilar right lung mass suggesting acute postobstruction pneumonia with residual large suprahilar tumor. 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 Reading [facility] Assessment & Plan Assessment/Plan (1) Lung cancer: (2) Hypercalcemia: (3) Acute on chronic anemia: PLAN: Plan Patient is a 74-year-old male who presented [facility] ED on 05/11/2025 with worsening fatigue, weakness and confusion. 1. Large right-sided lung cancer with suspected postobstructive pneumonia ? Admit under inpatient status to PCU. Patient with known history of large right-sided lung cancer. Chest x-ray on admit with concern for acute postobstructive pneumonia in setting of lung cancer. Stable on room air at rest. Sputum culture ordered. Will treat with IV vancomycin and Zosyn for now. Patient has established with oncology at the [facility]. Has deferred treatment for the lung cancer up to this point. Discussed with patient and family extensively in the ED and noted to them that unfortunately his condition will continue to worsen without active chemotherapy or radiation therapy for this lung cancer. Patient was scheduled to follow-up with oncology at the [facility] next week. Transfer has been initiated to the [facility]. 2. Acute metabolic encephalopathy suspected secondary to hypercalcemia malignancy ? Calcium 11.2 on admit. Notably calcium was 12.2 on ED visit on 05/04. No prior history of hypercalcemia to this point. Suspect this is hypercalcemia of malignancy in setting of lung cancer and suspect patient's encephalopathy and worsening fatigue and weakness are in part secondary to hypercalcemia. Will treat with heavy IV fluids for now. Follow-up a.m. calcium level. If not significantly improved, can plan to give a dose of calcitonin. Avoid sedating medications as able. 3. Acute on chronic anemia with suspected upper GI bleed ? Hemoglobin 8.7 on admit, MCV 66. Slow hemoglobin downtrend over the past few months. Patient reports dark stools over the past 1 to 2 weeks. Stool occult sample was negative. However, most likely etiology for acute on chronic anemia appears to be slow upper GI bleed. Does report acid reflux symptoms recently. Suspect his lung cancer may be contributing to irritation and inflammation of the esophagus possibly due to esophagitis or gastritis and upper GI bleed. Willtreat with IV PPI twice daily for now. As plan is for transfer to the [facility], will hold on GI consult for now. Monitor daily CBC. 4. Underweight BMI with suspected malnutrition ? Nutrition consulted. BMI 18.8 on admit. Appreciate nutrition recommendations. 5. COPD ? Stable on room air at rest in the ED, not in acute exacerbation. Continue home inhalers. 6. Hypertension, hyperlipidemia, history of CVA ? Hypertensive to the 150s to 160s in the ED. Continue home aspirin, statin andamlodipine. 7. Type 2 diabetes mellitus with neuropathy ? Blood glucose 244 on admit. Will treat with Lantus 10 units at night and sliding scale insulin with meals for now, adjust as needed. Continue home gabapentin. DVT prophylaxis: SCDs CODE STATUS: Full code, verified Expected disposition: Likely transfer to [facility] Total clinical time spent by myself addressing the patient's medical issues, reviewing all the data, and collaborating with patient's care team: 75 minutes. Charges/Coding Visit Charges Inpatient E&M: 92685 Init Hosp L3 05/12/25 0046 <Electronically signed by Lane Stanley DO> Cosigner Signature (if applicable): CC: SID Haji; Dr. Lane Stanley DO~ Signed [facility] Work Phone: [phone] 915-894206-18-2025 History and physical note [facility] Medical Records Department [address] [place] [address] H&P Exam - Hospitalist 05/11/251918 MR#: [id number] Acct: [id number] Name: ITZEL ALONZO Rep #:[id number] : 1950 74 From: Lane dunn DO PCP: SID Haro Status:ADM IN [facility] HPI - General General Date of Admission: 05/11/25 Date of Service: 05/11/25 Chief Complaint: Worsening fatigue, weakness and confusion HPI Narrative ITZEL ALONZO, is a 74 M who presented to [facility] ED on 05/11/2025 with worsening fatigue, weakness and confusion. Patient has been seenin [facility] ED recently [facility] He was diagnosed with right-sided lung cancer about 1 year ago. It appears this diagnosis was confirmed on bronchial biopsy. Patient declined active treatment at that time and preferred close monitoring. However, patient has issues with transportationand has had difficulty getting [facility] He lives at home with his significant other who was present at the bedside today. Patient has had worsening fatigue and weakness over the past week or so. Hehasalso had intermittent confusion and significant other notes this has become morenoticeable over the past few days. He was seen in the ED here on 05/04 for a mechanical fall; workup was negative andhe was able to be discharged home. ED physician noted today that patient was disoriented to time and slow to respond to questions. Lab workup notable for calcium 11.2; notably was 12.2 on 05/04. Hemoglobin has slowly been downtrending with hemoglobin 8.7 in the ED today. Chest x-ray shows a greater opacity within the suprahilar right lung mass suggesting acute postobstructive pneumonia with residual large suprahilar tumor. Stool occult was positive. Given these findings, hospitalist was contacted foradmission. I saw the patient at bedside in the ED, significant other was present. He was mildlyfatigued appearing but otherwise sitting back comfortably in bed and in no acute distress. He was answering questions appropriately for me, though his answers were somewhat slowed. He was breathingcomfortably on room air at rest. He denied any acute pain or discomfort. He does report worsening shortness of breath and cough with activity recently. He does note intermittent dark stools over the past 1 to 2 weeks. Also notes worsening acid reflux symptoms in that timeframe. No other acute concernscurrently. Will be admitted for further management. Importantly, I discussed the case over the phone with the transfer nurse with the [facility] briefly rex. Nurse noted that transfer could be initiated there but as the admitting physician was gone for the day, transfer will not happen until tomorrow at the earliest. 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 05/09/21 Unknown History mcg-4.5 mcg/actuation aerosol inhaler (Symbicort) cyclobenzaprine 10 mg tablet 10 mg PO TID PRN muscle s pasms 05/09/21 Unknown History sildenafil 100 mg tablet 100 mg PO DAILY PRN Erectile 05/09/21 Unknown History Dysfunction atorvastatin 80 mg tablet 80 mg PO QHS #90 tabs Unknown Rx insulin aspart U-100 100 unit/mL 10 unit subcut TIDCM 12/12/24 Unknown History (3 mL) subcutaneous pen (Novolog FlexPen U-100 Insulin aspart) insulin glargine 100 unit/mL (3 10 unit subcut QPM 09/18 Unknown History mL) subcutaneous pen (Lantus Solostar U-100 Insulin) magnesium hydroxide 400 mg/5 mL 5 ml PO DAILY PRN cons tipation 05/04/25 05/03/25 History oral suspension (Gentle Laxative (magnesium hydroxide)) ropinirole 1 mg tablet 1 mg PO DAILY 05/04/25 Unkno wn History Allergy/AdvReac Type Severity Reaction Status Date / Time No Known Allergies Allergy Verified 05/11/25 14:05 Family History Mother CVA (cerebral vascular accident) Surgical History Hx of appendectomy Social History household members: none housing: apartment Smoking Status: Current some day smoker tobacco type: cigarettes and cigars ROS Constitutional Constitutional: Reports fatigue and weakness; Denies chills or fever(s) Eyes Eyes: Denies change in vision Cardiovascular Cardiovascular: Reports dyspnea on exertion; Denies chest pain, edema or lightheadedness Respiratory/Chest Respiratory/Chest: Denies cough, productive cough, shortness of breath at rest or wheezing Gastrointestinal Gastrointestinal: Denies abdominal pain Genitourinary Genitourinary: Denies dysuria Musculoskeletal Musculoskeletal: Denies arthralgias or myalgias Vital Signs Vital Signs Vital Signs: 05/11/25 14:05 05/11/25 14:30 05/11/25 [...] Ox 95 Oxygen Delivery Method Room Air Weight Weight: 66.2 kg Body Mass Index (BMI) 19.2 Physical Exam Const alert and no apparent distress Constitutional Narrative: Elderly male, thin and somewhat cachectic appearing, alert and oriented but withslowed responses noted, otherwise laying back comfortably in bed, answering questions with short appropriate responses,in no acute distress. General Appearance: cooperative and comfortable HEENT normocephalic, head/scalp atraumatic, hearing grossly normal bilaterally, nasal mucous membranes and turbinates normal and moist oral mucous membranes Eyes PERRL, EOMs intact bilaterally and conjunctivae normal Neck full ROM Chest inspection of chest normal Resp normal respiratory effort and no use of accessory muscles Resp Narrative: Breathing comfortably on room air at rest. Significantly diminished breath sounds in right upper lung zones with mild crackles noted in mid lung zones bilaterally. No wheezing noted. Cardio no murmurs and peripheral pulses 2+ throughout Cardio Narrative: Tachycardic, regular rhythm. GI normal to inspection, nondistended, normoactive bowel sounds, soft to palpation,non-tender and non-distended Back/Spine normal ROM Extremity normal to inspection, full ROM and no pedal edema Skin no rashes or lesions noted Neuro moves all extremities and no focal motor deficits Results Lab / Micro Data 05/11/25 15:20 05/11/25 15:20 Labs: Laboratory Results - last 24 hr 05/11/25 15:20: WBC 11.6 H, RBC 4.35 L, Hgb 8.7 L, Hct 28.9 L, MCV 66.4 L, MCH 20.0 L, MCHC 30.1 L,RDW Std Deviation 44.7 H, RDW Coeff of Tiffany 19.0 H, Plt Count 404, MPV 9.5, Immature Gran % (Auto) 0.400, Neut % (Auto) 74.3 H, Lymph % (Auto) 18.4 L, [place] % (Auto) 5.8, Eos % (Auto) 0.8, Baso % (Auto) 0.3, Absolute Neuts (auto) 8.6 H, Absolute Lymphs (auto) 2.13, Nucleated RBC % 0, Sodium 136, Potassium 3.5, Chloride 99, Carbon Dioxide 26.3, Anion Gap 11, BUN 14, Creatinine 1.20, Estim Creat Clear Calc 49.04 L, Est GFR (MDRD) Non-Af 63, BUN/Creatinine Ratio 11.3, Glucose 244 H, Lactic Acid 1.8,Calcium 11.2 H, TotalBilirubin 0.41, AST 23, ALT 12, Alkaline Phosphatase 128, Troponin T High Sens39 H D, Total Protein 7.4, Albumin 3.3 L, Globulin 4.2, Albumin/Globulin Ratio 0.8 L 05/11/25 17:16: Troponin T Hi Sens 2 Hr 37 H Micro: Microbiology 05/11/25 17:54 Stool Stool Occult Blood (RODRIGUEZ) - Final Imaging Radiology Impression Chest X-Ray 05/11/25 15:30 IMPRESSION: In <3 weeks since the prior radiograph there has developed greater opacity in the suprahilar right lung mass suggesting acute postobstruction pneumonia with residual large suprahilar tumor. 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 Reading [facility] Assessment & Plan Assessment/Plan (1) Lung cancer: (2) Hypercalcemia: (3) Acute on chronic anemia: PLAN: Plan Patient is a 74-year-old male who presented [facility] ED on 05/11/2025 with worsening fatigue, weakness and confusion. 1. Large right-sided lung cancer with suspected postobstructive pneumonia ? Admit under inpatient status to PCU. Patient with known history of large right-sided lung cancer.Chest x-ray on admit with concern for acute postobstructive pneumonia in setting of lung cancer. Stable on room air at rest. Sputum culture ordered. Will treat with IV vancomycin and Zosyn for now. Norm negrete has established with oncology at the [facility]. Has deferred treatment for the lung cancerup to this point. Discussed with patient and family extensively in the ED and noted to them that unfortunately his condition will continue to worsen without active chemotherapy or radiation therapy for this lung cancer. Patient was scheduled to follow-up with oncology at the [facility] next [facility]. Transfer has been initiated to the [facility]. 2. Acute metabolic encephalopathy suspected secondary to hypercalcemia malignancy ? Calcium 11.2 on admit. Notably calcium was 12.2 on ED visit on 05/04. No prior history of hypercalcemia to this point. Suspect this is hypercalcemia of malignancy in setting of lung cancer and suspect patient's encephalopathy and worsening fatigue and weakness are in part secondary to hypercalcemia. Will treat with heavy IV fluids for now. Follow-up a.m. calcium level. If not significantly improved, can plan to give a dose of calcitonin. Avoid sedating medications as able. 3. Acute on chronic anemia with suspected upper GI bleed ? Hemoglobin 8.7 on admit, MCV 66. Slow hemoglobin downtrend over the past few months. Patient reports dark stools over the past 1 to 2 weeks. Stool occult sample was negative. However, most likely etiology for acute on chronic anemia appears to be slow upper GI bleed. Does report acid reflux symptoms recently. Suspect his lung cancer may be contributing to irritation and inflammation of the esophagus possibly due to esophagitis or gastritis and upper GI bleed. Willtreat with IV PPI twice dailyfor now. As plan is for transfer to the [facility], will hold on GI consult for now. Monitor daily CBC. 4. Underweight BMI with suspected malnutrition ? Nutrition consulted. BMI 18.8 on admit. Appreciate nutrition recommendations. 5. COPD ? Stable on room air at rest in the ED, not in acute exacerbation. Continue home inhalers. 6. Hypertension, hyperlipidemia, history of CVA ? Hypertensive to the 150s to 160s in the ED. Continue home aspirin, statin andamlodipine. 7. Type 2 diabetes mellitus with neuropathy ? Blood glucose 244 on admit. Will treat with Lantus 10 units at night and sliding scale insulin with meals for now, adjust as needed. Continue home gabapentin. DVT prophylaxis: SCDs CODE STATUS: Full code, verified Expected disposition: Likely transfer to [facility] Total clinical time spent by myself addressing the patient's medical issues, reviewing all the data, and collaborating with patient's care team: 75 minutes. Charges/Coding Visit Charges Inpatient E&M: 90406 Init Hosp L3 05/12/25 0046 Cosigner Signature (if applicable): CC: SID Haji; Dr. Lane Stanley, DO~ Signed [facility]06-18-2025 Consult note Author Clarke Montesinos [facility] Note Date/Time May 11, 2025 10:3 8pm [facility] Medical Records Department [address] [place] [address] Pharmacokinetic/Renal -Consult 05/11/257 MR#: [id number] Acct: [id number] Name: ITZEL ALONZO Carlie Rep #:[id number] : 1950 74 From: Clarke Bailon od PCP: SID Haro Status:ADM IN Location: [place] [address] Consult Antibiotic Management Pharmacy has been consulted to manage selected antibiotic: Vancomycin Type of Intervention Type of Consult: New start Labs Labs: Sodium 136 mmol/L (133-145) 05/11/25 15:20 Potassium 3.5 mmol/L (3.3-5.1) 05/11/25 15:20 Chloride 99 mmol/L (98-108) 05/11/25 15:20 Carbon Dioxide 26.3 mmol/L (21.0-32.0) 05/11/25 15:20 Anion Gap 11 (5-15) 05/11/25 15:20 BUN 14 mg/dL (4-19) 05/11/25 15:20 Creatinine 1.20 mg/dL (0.70-1.20) 05/11/25 15:20 Est GFR (MDRD) Non-Af 63 (>60) 05/11/25 15:20 BUN/Creatinine Ratio 11.3 RATIO (10-20) 05/11/25 15:20 Glucose 244 mg/dL (70-99) H 05/11/25 15:20 Microbiology Microbiology: Microbiology 05/11/25 17:54 Stool Stool Occult Blood (RODRIGUEZ) - Final Dosing Weight Weight used for dosin.5 kg Estimated Creatinine Clearance Estimated Creatinine Clearance: 49 Goal Trough Goal Trough: 15-20 mcg/mL Pharmacy Plan for Drug Dosing Pharmacy Plan for Drug Dosing: Pharmacy Service will continue to monitor and adjust dosing as required. 1750MG GIVEN IN ER 05/11 @ 2144. START 500MG Q12H AND DRAW TROUGH PRIOR TO 4TH DOSE Follow-Up Labs Follow-Up Labs: Trough: Vancomycin Date/Time Labs Ordered Labs to be done on [date and time ordered]: 05/13 @ 0930 05/11/25 3154 <Electronically signed by Clarke rizzo> Date _ Clarke Bernstein Signature (if applicable): Date CC: ~ Signed [facility] Work Phone: 1(715) 316-269606-17-2025 Discharge summary Author Monty Clarke [facility] Note Date/Time May 11, 2025 9:07 pm [facility] Medical Records Department [address] [place] [address] Emergency Department Summary 05/11/25 MR#: [id number] Acct: [id number] Name: ITZEL ALONZO Rep #:[id number] : 1950 74 From: Monty Clarke MD PCP: SID Haro Status:ADM IN Location: [place] [id number] Monty Clarke MD on 05/11/25 at 2107 EKG was obtained 1709 interpreted by me at 1711. The EKG is normal. Rate is 91. AR interval, QRS duration, QT duration and axis are all normal. 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 He [...] reports neck pain that has had since thefall. He believes he has pneumonia because he has cough and shortness of breathwith activity. He does have a history of lung cancer as previously noted. He initially endorsed nausea, vomiting diarrhea and then stated he has not had nausea vomiting or diarrhea. I believe his had increased urine output. He presently denies headache, visual, ocular auditory symptoms. 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 Quiros for [...] 74.3 H Lymph % (Auto) 18.4 L [place] % (Auto) 5.8 Eos % (Auto) 0.8 [...] associated with end-stage honeycomb fibrosis. Reading Location: [facility] EKG Initial EKG: Attestation: I personally reviewed and interpreted this EKG as follows: Interpretation: Sinus Rhythm (Sinus rhythm rate of 91. Normal EKG. AR interval 150 ms Rickers duration 90 ms. QT duration 3096 ms. Crestone is normal. EKG is unchanged from prior. ) Prior: Changed (September 14, 2021) Management Discussion w/another healthcare provider: Hospitalist (Dr. Stanley requested Icontact Dr. Robertson to make sure it is okay for me to admit this patient to [facility]) Additional Tests and Interventions Additional Tests or [...] EKG with elevated troponin), Discussing w/Patient &/or Family/Lap Layer, Discussing w/Consultants and Arranging Admission or Transfer Discharge Plan Dx/Rx/DC Orders Clinical Impression: Obstructive pneumonia, Microcytic anemia, Acute on chronic anemia, Exertional dyspnea, Elevated troponin, Sinus tachycardia seen on surveillance system monitor, Hypercalcemia, Lung cancer Disposition Disposition: Acute Care Hospital [facility] What to do if you have Problems For any increased pain, shortness of breath, bleeding, nausea or vomiting, chestpain, or any unexpected problems, contact your Primary Care Provider. Call [facility] InDeed Registry ([phone]) or report to the closest Emergency Room. Call 911 if necessary. 05/11/251840 <Electronically signed by Monty Clarke MD> Cosigner Signature (if applicable): CC: SID Haji ~ Signed [facility] Work Phone: 1(990) 940-646306-17-2025 Consult note [facility] Medical Records Department [address] [place] [address] Pharmacokinetic/Renal -Consult 05/11/252236 MR#: [id number] Acct: [id number] Name: ITZEL ALONZO Rep #:[id number] : 1950 74 From: Clarke Bailon od PCP: Carlene Haji, FOOT CUTTER-C Status:ADM IN Location: [place] [address] Consult Antibiotic Management Pharmacy has been consulted to manage selected antibiotic: Vancomycin Type of Intervention Type of Consult: New start Labs Labs: Sodium 136 mmol/L (133-145) 05/11/25 15:20 Potassium 3.5 mmol/L (3.3-5.1) 05/11/25 15:20 Chloride 99 mmol/L (98-108) 05/11/25 15:20 Carbon Dioxide 26.3 mmol/L (21.0-32.0) 05/11/25 15:20 Anion Gap 11 (5-15) 05/11/25 15:20 BUN 14 mg/dL (4-19) 05/11/25 15:20 Creatinine 1.20 mg/dL (0.70-1.20) 05/11/25 15:20 Est GFR (MDRD) Non-Af 63 (>60) 05/11/25 15:20 BUN/Creatinine Ratio 11.3 RATIO (10-20) 05/11/25 15:20 Glucose 244 mg/dL (70-99) H 05/11/25 15:20 Microbiology Microbiology: Microbiology 05/11/25 17:54 Stool Stool Occult Blood (RODRIGUEZ) - Final Dosing Weight Weight used for dosin.5 kg Estimated Creatinine Clearance Estimated Creatinine Clearance: 49 Goal Trough Goal Trough: 15-20 mcg/mL Pharmacy Plan for Drug Dosing Pharmacy Plan for Drug Dosing: Pharmacy Service will continue to monitor and adjust dosing as required. 1750MG GIVEN IN ER 05/11 @ 2143. START 500MG Q12H AND DRAW TROUGH PRIOR TO 4TH DOSE Follow-Up Labs Follow-Up Labs: Trough: Vancomycin Date/Time Labs Ordered Labs to be done on [date and time ordered]: 05/13 @ 30 05/11/252237 lood> Date _ Clarke Montesinos Cosigner Signature (if applicable): Date CC: ~ Signed [facility]06-17-2025 Evaluation note* Diagnosis Onset Date Resolution Status Admit Date Elevated troponin acute May 112024 7:20pm Exertional dyspnea acute April 252024 7:20pm Hypercalcemia acute May 11, 2025 7:20pm Lung cancer acute May 11 7:20pm Microcytic anemia acute May 112024 7:20pm Obstructive pneumonia acute Jamey e 2024 7:20pm Sinus tachycardia seen on surveillance system monitor acute May 11, 2025 7:20pm Acute on chronic anemia chronic J une 2024 7:20pm [facility] Work Phone: 1(116) 140-623806-17-2025 Discharge summary [facility] Medical Records Department [address] [place] [address] Emergency Department Summary 05/11/25 MR#: [id number] Acct: [id number] Name: ITZEL ALONZO Rep #:[id number] : 1950 74 From: Monty Clarke MD PCP: SID Haro Status:[facility]M [facility] [address] Monty Clarke MD on 05/11/25 at 2107 EKG was obtained 1709 interpreted by az at 1711. The EKG is normal. Rate is 91. AR interval, QRS duration, QT duration and axis are all normal. 05/11/252106 Cosigner Signature (if applicable): cc: FOOT CUTTER-C Carlene Haji ~* Signed HPI History of Present Illness Chief Complaint: Fall Detail of Chief Complaint: Patient presents because of multiple falls per triage. Patient states hef Informant: patient Onset/Context/Timing Onset: Weeks Context: Gradual Onset Timing: Continuous Quality: Generalized weakness and fatigued Location: Not applicable Current Severity: Mild Maximum Severity: Moderate Worsened by: Activity Relieved by: Nothing Associated Symptoms Associated Symptoms: Generalized weakness, weight loss, no energy Narrative Narrative: Patient is a 74-year-old male. He has history of lung cancer. 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 He endorses fatigue, generalized weakness. He has poor appetite. He does admit to change in urination. States he was seenapproximately 3 weeks ago due to a fall. After reviewing records he was seen onthe 10thof this month for fall. He was seen by Dr. Quiros. He had a workup that was unremarkable. Of note patient is disoriented to time. He is slow to respond. He initially answer yes to some question then corrected himself. He presently denies headache. He presently reports neck pain that has had since thefall. He believes he has pneumonia because he has cough and shortness of breathwith activity. He doeshave a history of lung cancer as previously noted. He initially endorsed nausea, vomiting diarrhea and then stated he has not had nausea vomiting or diarrhea. I believe his had increased urine output. He presently denies headache, visual, ocular auditory symptoms. 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 Quiros for [...] 74.3 H Lymph % (Auto) 18.4 L [place] % (Auto) 5.8 Eos % (Auto) 0.8 [...] lobe mass with compression of trachea and probableright main bronchus and primary branches. This was [...] associated with end-stage honeycomb fibrosis. Reading Location: [facility] EKG Initial EKG: Attestation: I personally reviewed and interpreted this EKG as follows: Interpretation: Sinus Rhythm (Sinus rhythm rate of 91. Normal EKG. AR interval 150 ms Rickers duration 90 ms. QT duration 3096 ms. Crestone is normal. EKG is unchanged from prior. ) Prior: Changed (September 14, 2021) Management Discussion w/another healthcare provider: Hospitalist (Dr. Stanley requested Icontact Dr. Robertson to make sure it is okay for me to admit this patient to [facility]) Additional Tests and Interventions Additional Tests or [...] Dr. Robertson. Patient ethan full admit [facility]U.[facility] Critical Care Time Critical Care Time: Yes Critical care time (excluding procedures): 30-74 minutes (31), Including time spent: (History, physical, documentation, independent rotation of laboratory results and x-ray and initiation of treatment for obstructive pneumonia and abnormal EKG with elevated troponin), Discussing w/Patient &/or Family/Lap Layer, Discussing w/Consultants and Arranging Admission or Transfer Discharge Plan Dx/Rx/DC Orders Clinical Impression: Obstructive pneumonia, Microcytic anemia, Acute on chronic anemia, Exertional dyspnea, Elevated troponin, Sinus tachycardia seen on surveillance system monitor, Hypercalcemia, Lung cancer Disposition Disposition: [facility] What to do if you have Problems For any increased pain, shortness of breath, bleeding, nausea or vomiting, chestpain, or any unexpected problems, contact your Primary Care Provider. Call [facility] ([phone]) or report tothe closest Emergency Room. Call 911 if necessary. 05/11/25 1841 Cosigner Signature (if applicable): CC: FOOT CUTTER-C Carlene Haji ~ Signed [facility]06-17-2025 Discharge summary [facility] Medical Records Department [address] [place] [address] Emergency Department Summary 05/11/25 MR#: [id number] Acct: [id number] Name: ITZEL ALONZO Rep #:[id number] : 1950 74 From: Monty Clarke MD PCP: SID Haro Status:REG ER Location: ED HPI History of Present Illness Chief Complaint: Fall Detail of Chief Complaint: Patient presents because of multiple falls per triage. Patient states hef Informant: patient Onset/Context/Timing Onset: Weeks Context: Gradual Onset Timing: Continuous Quality: Generalized weakness and fatigued Location: Not applicable Current Severity: Mild Maximum Severity: Moderate Worsened by: Activity Relieved by: Nothing Associated Symptoms Associated Symptoms: Generalized weakness, weight loss, no energy Narrative Narrative: Patient is a 74-year-old male. He has history of lung cancer. 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 He endorses fatigue, generalized weakness. He has poor appetite. He does admit to change in urination. States he was seenapproximately 3 weeks ago due to a fall. After reviewing records he was seen onthe 10thof this month for fall. 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 Quiros for [...] 74.3 H Lymph % (Auto) 18.4 L [place] % (Auto) 5.8 Eos % (Auto) 0.8 [...] lobe mass with compression of trachea and probableright main bronchus and primary branches. This was [...] associated with end-stage honeycomb fibrosis. Reading Location: [facility] EKG Initial EKG: Attestation: I personally reviewed and interpreted this EKG as follows: Interpretation: Sinus Rhythm (Sinus rhythm rate of 91. Normal EKG. AR interval 150 ms Rickers duration 90 ms. QT duration 3096 ms. Crestone is normal. EKG is unchanged from prior. ) Prior: Changed (September 14, 2021) Management Discussion w/another healthcare provider: Hospitalist (Dr. Stanley requested Icontact Dr. Robertson to make sure it is okay for me to admit this patient to [facility]) Additional Tests and Interventions Additional Tests or [...] Dr. Robertson. Patient ethan full admit [facility] PCU.[facility] Critical Care Time Critical Care Time: Yes Critical care time (excluding procedures): 30-74 minutes (31), Including time spent: (History, physical, documentation, independent rotation of laboratory results and x-ray and initiation of treatment for obstructive pneumonia and abnormal EKG with elevated troponin), Discussing w/Patient &/or Family/Lap Layer, Discussing w/Consultants and Arranging Admission or Transfer Discharge Plan Dx/Rx/DC Orders Clinical Impression: Obstructive pneumonia, Microcytic anemia, Acute on chronic anemia, Exertional dyspnea, Elevated troponin, Sinus tachycardia seen on surveillance system monitor, Hypercalcemia, Lung cancer Disposition Disposition: Acute Care Hospital [facility] What to do if you have Problems For any increased pain, shortness of breath, bleeding, nausea or vomiting, chestpain, or any unexpected problems, contact your Primary Care Provider. Call [facility] ([phone]) or report tothe closest Emergency Room. Call 911 if necessary. 05/11/25 1841 Cosigner Signature (if applicable): CC: SID Haji ~ Signed [facility]06-17-2025 Radiology Diagnostic study note [facility] Imaging Services [address] [place] [address] Chest PA and Lateral MR#: [id number] Acct: [id number] Name: ITZEL ALONZO Rep #: [id number] : 1950 M 74 From: Pet er Peer DO PCP: SID Haro Status: REG ER Study:Chest PA and Lateral Date of Exam: 05/11/25 Exam# [id number] Ordering Dr: Karin Clarke MD PROCEDURE: CHEST [...] associated with end-stage honeycomb fibrosis. Reading Location: [facility] CC: SID Haji; Dr. 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 [facility] EKG Initial EKG: Attestation: I personally reviewed and interpreted this EKG as follows: Interpretation: Sinus Rhythm (Sinus rhythm rate of 91. Normal EKG. AR interval 150 ms Rickers duration 90 ms. QT duration 3096 ms. Crestone is normal. EKG is unchanged from prior. ) Prior: Changed (September 14, 2021) Management Discussion w/another healthcare provider: Hospitalist (Dr. Stanley requested Icontact Dr. Robertson to make sure it is okay for me to admit this patient to [facility]) Additional Tests and Interventions Additional Tests or [...] EKG with elevated troponin), Discussing w/Patient &/or Family/Lap Layer, Discussing w/Consultants and Arranging Admission or Transfer Discharge Plan Dx/Rx/DC Orders Clinical Impression: Obstructive pneumonia, Microcytic anemia, Acute on chronic anemia, Exertional dyspnea, Elevated troponin, Sinus tachycardia seen on surveillance system monitor, Hypercalcemia, Lung cancer Disposition Disposition: Acute Care Hospital [facility] What to do if you have Problems For any increased pain, shortness of breath, bleeding, nausea or vomiting, chestpain, or any unexpected problems, contact your Primary Care Provider. Call [facility] In[facility] ([phone]) or report to the closest Emergency Room. Call 911 if necessary. 05/11/251840 <Electronically signed by Monty Clarke MD> Cosigner Signature (if applicable): CC: SID Haji ~ Signed [facility] Work Phone: 1(949) 720-404506-17-2025 Evaluation note* Diagnosis Onset Date Resolution Status Admit Date Elevated troponin acute May 112024 7:20pm Exertional dyspnea acute April 252024 7:20pm Hypercalcemia acute May 11, 2025 7:20pm Microcytic anemia acute May 112024 7:20pm Obstructive pneumonia acute Jamey e 2024 7:20pm Sinus tachycardia seen on surveillance system monitor acute May 11, 2025 7:20pm Acute on chronic anemia chronic J une 2024 7:20pm [facility] Work Phone: 1(741) 668-298706-10-2025 Radiology Diagnostic study note [facility] Imaging Services [address] [place] [address] Brain/Head without Contrast MR#: [id number] Acct: [id number] Name: ITZEL ALONZO Rep #: [id number] : 1950 M 74 From: Bert Sloan MD PCP: SID Haro Status: REG ER Study:Brain/Head without Contrast Date of Exa m: 05/04/25 Exam# [id number] Ordering Dr: Ike Dawson DO PROCEDURE: BRAIN/HEAD [...] or other acute process noted. Reading Location: [address] CC: FOOT CUTTER-C Carlene Haji; DO Emanuel Tian Sharepoint Developer: Signed [facility]06-10-2025 Radiology Diagnostic study note [facility] Imaging Services [address] [place] [id number] Spine Cervical without Contras MR#: [id number] Acct: [id number] Name: ITZEL ALONZO Rep #: [id number] : 1950 M 74 From: Juan Miguel Santos MD PCP: SID Haro Status: REG ER Study:Spine Cervical without Contras Date of Exam: 05/04/25 Exam# [id number] Ordering Dr: Ike Dawson DO PROCEDURE: SPINE [...] Right upper lobe pulmonary mass. Reading Location: [facility] CC: FOOT CUTTER-C Carlene Haji; Dr. Ike Dawson DO ~ Sharepoint Developer: Signed [facility]06-10-2025 Radiology Diagnostic study note [facility] Services [address] [place] [address] Chest without Contrast MR#: [id number] Acct: [id number] Name: ITZEL ALONZO Rep #: [id number] : 1950 M 74 From: Juan Miguel Santos MD PCP: SID Haro Status: REG ER Study:Chest without Contrast Date of Exam: 05/04/25 Exam# [id number] Ordering Dr: Ike Dawson DO PROCEDURE: CHEST [...] at the right lung base. Reading Location: [place] [address] CC: FOOT CUTTERNissa Haji; Dr. Ike Daswon DO ~ Sharepoint Developer: Signed [facility]06-10-2025 Radiology Diagnostic study note [facility] [address] [place] [address] Shoulder min 2 Views MR#: [id number] Acct: [id number] Name: ITZEL ALONZO Rep #: [id number] : 1950 M 74 From: Juan Miguel Santos MD PCP: Carlene Haji, IKE-C Status: REG ER Study:Shoulder min 2 Views Date of Exam: 05/04/25 Exam# [id number] Ordering Dr: Ike Dawson DO PROCEDURE: SHOULDER [...] Correlation witha CT scan recommended. Reading Location: [facility]- CC: FOOT CUTTER-C Carlene Haji; Dr. Ike Dawson DO ~ Sharepoint Developer: Signed [facility]05-30-2025 Radiology Diagnostic study note [facility] Services [address] [place] [id number] STROKE CTA Head AND Neck W/Con MR#: [id number] Acct: [id number] Name: ITZEL ALONZO Rep #: [id number] : 1950 M 74 From: Oswald Perez MD PCP: Carlene Haji, FOOT CUTTER-C Status: REG ER Study:STROKE CTA Head AND Neck W/Con Date of Exam: 04/23/25 Exam# [id number] Ordering Dr: Steven Tejeda DO PROCEDURE: STROKE [...] occluded similar to the prior CTA. Anatomy: [place] anatomy is normal. Aneurysm or [...] apical mass suspicious for malignancy. Reading Location: [id number] CC: FOOT CUTTER-C Carlene Haji; Dr. Steven Tejeda, DO ~ Sharepoint Developer: Signed [facility]05-30-2025 Radiology Diagnostic study note [facility] Services [address] [place] [address] Chest 1 View (Portable) MR#: [id number] Acct: [id number] Name: ITZEL ALONZO Rep #: [id number] : 1950 M 74 From: Oswald Perez MD PCP: SID Haro Status: REG ER Study:Chest 1 View (Portable) Date of Exam: 04/23/25 Exam# [id number] Ordering Dr: Steven Tejeda DO PROCEDURE: CHEST [...] regions which may represent adenopathy. Reading Location: [id number] CC: SID Haji; Dr. Steven Tejeda, ~ Sharepoint Developer: Signed [facility]05-30-2025 Radiology Diagnostic study note [facility] Services [address] [place] [id number] STROKE Brain/Head without Cont MR#: [id number] Acct: [id number] Name: ITZEL ALONZO Rep #: [id number] : 1950 M 74 From: Oswald Perez MD PCP: SID Haro Status: REG ER Study:STROKE Brain/Head without Cont Date of Exam: 04/23/25 Exam# [id number] Ordering Dr: Steven Tejeda DO PROCEDURE: STROKE [...] atrophy and chronic microvascular ischemia. Reading Location: [place] [address] CC: FOOT CUTTER-C Carlene Haji; Dr. Steven Tejeda, DO ~ Sharepoint Developer: Signed [facility] Author Anthony Salgado [facility] Note Date/Time May 13, 2025 2:00 pm [facility] Medical Records Department [address] [place] [address] Discharge Summary 05/13/25 1257 MR#: [id number] Acct: [id number] Name: ITZEL ALONZO Rep #:[id number] : 1950 74 From: Anthony Kiser PCP: SID Haro Status:ADM IN Location: [place] [address] Providers Date of Admission: 05/11/25 Primary Care Physician: SID Haro Reason For Visit: HYPER CO OF MALIGNANCY SUSPECTED UPPER GIB Diagnosis Discharge Diagnosis (1) Lung cancer: Status: Acute Code(s): C34.90 - Malignant neoplasm of unspecified part of unspecified bronchus or lung (2) Hypercalcemia: Status: Acute Code(s): E83.52 - Hypercalcemia (3) Acute on chronic anemia: Status: Chronic Code(s): D64.9 - Anemia, unspecified Plan Patient is a 74-year-old male who presented [facility] ED on 05/11/2025 with worsening fatigue, weakness and confusion. 1. Large right-sided lung cancer with suspected postobstructive pneumonia ? Admit under inpatient status to PCU. Patient with known history of large right-sided lung cancer. Chest x-ray on admit with concern for acute postobstructive pneumonia in setting of lung cancer. Stable on room air at rest. Patient has established oncologist Dr. Lake, [facility]. I myself tried to contact through the transfer line 2 times but unsuccessful. Discussed with the caser up. [place] oncologist wanted CT head before transfer. In meantime continue vancomycin and Zosyn. Sputum culture is ordered. Patient eager to gettreatment for lung cancer although his physical Karnofsky status is not good. Transferred to further care regarding lung cancer to oncologist. 05/13: Patient shortness of breath is better. Is more awake and sitting upright. Mild hypokalemia, potassium replaced 2. Acute metabolic encephalopathy suspected secondary to hypercalcemia of malignancy ? Calcium 11.2 on admit. Notably calcium was 12.2 on ED visit on 05/04. No prior history of hypercalcemia to this point. Suspect this is hypercalcemia of malignancy in setting of lung cancer and suspect patient's encephalopathy and worsening fatigue and weakness are in part secondary to hypercalcemia. Repeat calcium is 10.3 better. Serum albumin 3.3. Continue IV fluid and follow-up labs tomorrow 05/13: Metabolic encephalopathy resolved. Patient is more awake and alert. Calcium 9.7. 3. Acute on chronic anemia with suspected upper GI bleed ? Hemoglobin 8.7 on admit, MCV 66. Slow hemoglobin downtrend over the past few months. Patient reports dark stools over the past 1 to 2 weeks. Stool occult sample was negative. However, most likely etiology for acute on chronic anemia appears to be slow upper GI bleed. Does report acid reflux symptoms recently. Suspect his lung cancer may be contributing to irritation and inflammation of the esophagus possibly due to esophagitis or gastritis and upper GI bleed. Willtreat with IV PPI twice daily for now. As plan is for transfer to the [place], will hold on GI consult for now. Monitor daily CBC. 05/13: Hemoglobin 7.7/25.4%. Monitor hemoglobin daily. If less than 7 g will need PRBC transfusion. 4. Underweight BMI with suspected malnutrition ? Nutrition consulted. BMI 18.8 on admit. Appreciate nutrition recommendations. 5. COPD ? Stable on room air at rest in the ED, not in acute exacerbation. Continue home inhalers. 6. Hypertension, hyperlipidemia, history of CVA ? Hypertensive to the 150s to 160s in the ED. Continue home aspirin, statin andamlodipine. 7. Type 2 diabetes mellitus with neuropathy ? Blood glucose 244 on admit. Will treat with Lantus 10 units at night and sliding scale insulin with meals for now, adjust as needed. Continue home gabapentin. DVT prophylaxis: SCDs CODE STATUS: Full code, verified Expected disposition: Likely transfer to [facility] Patient is being transferred to [facility] for further care and decision makingregarding care of right lung cancer Medications at Discharge Home Medications gabapentin 300 mg capsule 300 mg PO TID neuropathy 02/24/15 amlodipine 5 mg tablet 5 mg PO QHS blood pressure 05/09/21 aspirin 81 mg tablet,delayed release 81 mg PO DAILY heart health 05/09/21 budesonide-formoterol HFA 80 mcg-4.5 mcg/actuation aerosol inhaler (Symbicort) 2puff inhalation BID COPD 05/09/21 cyclobenzaprine 10 mg tablet 10 mg PO TID PRN muscle spasms 05/09/21 sildenafil 100 mg tablet 100 mg PO DAILY PRN Erectile Dysfunction 05/09/21 atorvastatin 80 mg tablet 80 mg PO QHS #90 tabs 05/12/21 insulin aspart U-100 100 unit/mL (3 mL) subcutaneous pen (Novolog FlexPen U-100 Insulin aspart) 10 unit subcut TIDCM 12/12/24 insulin glargine 100 unit/mL (3 mL) subcutaneous pen (Lantus Solostar U-100 Insulin) 10 unit subcut QPM 05/04/25 magnesium hydroxide 400 mg/5 mL oral suspension (Gentle Laxative (magnesium hydroxide)) 5 ml PO DAILY PRN constipation 05/04/25 ropinirole 1 mg tablet 1 mg PO DAILY 05/04/25 Physical Exam Narrative Seen and examined Patient shortness of breath is much improved. Sitting upright. Discussed with patient's daughter in the bed. No chest pain. Diagnosed with a right suprahilar lung cancer, exact sampler/tissue type unclear. Follows [place] oncologist, await path . Because of transportation he said he could not follow-up to December therefore exact course of chemotherapy not clear but he is eager to have chemotherapy. His physical and functional status is suboptimal/not good. Very weak, difficulty in sitting up from supine position. Physical exam General: Awake, oriented x 3. BMI 18.8 kg/m?, mild chronic malnutrition. Chronic fatigue HEENT: Atraumatic, PERRLA, EOMI, Normocephalic. Oral: No Gingival or Mucosal Lesions/ Ulcerations Neck: Supple, No JVD, Negative Carotid Bruits Chest wall/Lungs: Air entry diminished in bilateral lung bases. Crepitations have improved Cardiovascular: Sinus rhythm, Normal S1,S2, No M/G/R Abdomen: Bowel Sounds Present, Soft, Non Tender, Non-Distended : No dysuria. No renal angle tenderness. No suprapubic tenderness. Extremities: No edema, Capillary Refill Less than 3 Seconds Skin: No rashes, No breakdown Musculoskeletal: No Tenderness to Palpation of Joints or Extremities. ROM limited. Neurological: Cranial nerves II-XII grossly intact, DTR 2+/4. No acute focal neurological deficit. Psych/Mental Status: Flat affect Weight / BMI Weight Weight: 142 lb 3.17 oz Body Mass Index (BMI) 18.7 ABG / Lab / Microbiology Data 05/13/25 05:18 05/13/25 05:18 Laboratory: Laboratory Results - last 24 hr 05/12/25 15:54: POC Glucose 278 H 05/12/25 21:06: POC Glucose 330 H 05/13/25 05:18: WBC 11.8 H, RBC 3.91 L, Hgb 7.7 L, Hct 25.4 L, MCV 65.0 L, MCH 19.7 L, MCHC 30.3 L, RDW Std Deviation 43.1, RDW Coeff of Tiffany 18.4 H, Plt Count 358, MPV 10.0, Immature Gran % (Auto) 0.300, Neut % (Auto) 75.7 H, Lymph % (Auto) 16.4 L, [place] % (Auto) 6.5, Eos % (Auto) 0.9, Baso % (Auto) 0.2, Absolute Neuts (auto) 8.9 H, Absolute Lymphs (auto) 1.93, Nucleated RBC % 0, Sodium 137, Potassium 3.2 L, Chloride 104, Carbon Dioxide 22.8, Anion Gap 11, BUN 10, Creatinine 1.07, Estim Creat Clear Calc 53.58, Est GFR (MDRD) Non-Af 72, BUN/Creatinine Ratio 9.2 L, Glucose 207 H, Calcium 9.7 05/13/25 06:21: POC Glucose 190 H 05/13/25 09:33: Vancomycin Trough 8.6 05/13/25 11:17: POC Glucose 325 H Microbiology: Microbiology 05/11/25 17:54 Stool Stool Occult Blood (RODRIGUEZ) - Final Radiography Diagnostic Testing: Radiology Impression Brain CT 05/12/25 16:18 IMPRESSION: No abnormal enhancing mass. No acute intracranial process. Reading Location: [id number] D/C Instructions DC O2, CPAP, BIPAP Needs Home O2 Discharge instructions: No Meaningful Use Info Meaningful Use Meaningful Use Diagnoses (Choose all that apply): None applicable Ischemic Stroke Statin Dosing Therapy Reference: STATIN DOSE THERAPY REFERENCE: * Patients > 75 years receive moderate or high dose statin therapy. * Patients 75 years or YOUNGER should receive HIGH intensity statin dose unless contraindicated. You will be required to document reason for non-treatment if statin daily dose does not meet guidelines. HIGH DOSE STATIN THERAPY DAILY Atorvastatin > than or = to 40 mg Rosuvastatin > than or = to 20 mg Amlodipine + Atorvastatin > than or = to 2.5/40 mg Ezetimibe + Simvastatin 10/80 mg Simvastatin 80mg Discharge Plan Admission Admit Date/Time: 05/11/25 19:20 Attending Provider: Anthony Salgado Primary Care Provider: Carlene Haji Consulting Providers: Lane Stanley Discharge Orders/Prescriptions Prescriptions: No Action gabapentin 300 MG capsule 300 mg PO TID cyclobenzaprine 10 mg Tablet 10 mg PO TID PRN (Reason: muscle spasms) amlodipine 5 mg Tablet 5 mg PO QHS budesonide-formoterol [Symbicort] 80-4.5 mcg/actuation Hfa Aerosol Inhaler 2 puff INHALATION BID aspirin 81 mg Tablet,Delayed Release (Dr/Ec) 81 mg PO DAILY sildenafil 100 mg Tablet 100 mg PO DAILY PRN (Reason: Erectile Dysfunction) atorvastatin 80 mg tablet 80 mg PO QHS Qty: 90 0RF insulin aspart U-100 [Novolog FlexPen U-100 Insulin] 100 unit/mL (3 mL) insulin pen 10 unit subcut TIDCM ropinirole 1 mg tablet 1 mg PO DAILY Rx Instructions: PT UNSURE OF STRENGTH insulin glargine [Lantus Solostar U-100 Insulin] 100 unit/mL (3 mL) insulin pen 10 unit subcut QPM Rx Instructions: PT STATES USES 10-15U QHS magnesium hydroxide [Gentle Laxative (mag hydrox)] 400 mg/5 mL suspension 5 ml PO DAILY PRN (Reason: constipation) Referrals / Follow Up: Carlene Haji, FOOT CUTTER-C [Primary Care Provider] - Disposition Discharge Orders: Discharge Patient (Routine); Ordered 05/12/25 Ordered By: Dr. Anthony Salgado Charges/Coding Visit Charges Inpatient E&M: 81919 Disch Hosp >30min 05/13/25 1400 <Electronically signed by Anthony Salgado MD> Cosigner Signature (if applicable): CC: SID Haji; Dr. Anthony Salgado MD~ Signed [facility] Work Phone: Evaluation noteNo assessment information available [facility] Work Phone: Hospital Discharge instructions Additional Instructions Your workup today indicates your dizziness is most likely from peripheral vertigo. Take the Valium as directed to help control any recurrent dizzy symptoms. Return to the ER should you have any further concerns. You may continue all of your other home medications as directed by your doctorWSumma Health Work Phone: Hospital Discharge instructions Additional Instructions [...] you. Use tramadol as needed for pain control.[facility] Work Phone: Reason for referral (narrative)No reason for referral information availableWSumma Health Work Phone: Chief Complaint and Reason for [...] May 11, 2025 7:20 pm Obstructive pneumonia Kerrie 17th, 2025 7: 20pm Sinus tachycardia seen on cardiac monito r May 11, 2025 7:20pm Acute on chronic anemia May 11, 2025 7:20pm Chief Complaint Admit Date neuro symptoms April 23, 2025 9:00p m Fall May 04, 2025 11:1 2am HYPER CO OF MALIGNANCY SUSPECTED UPPER G IB May 11, 2025 7:20pm HYPER CO OF MALIGNANCY SUSPECTED UPPER G IB May 12, 2025 9:35am HYPER CO OF MALIGNANCY SUSPECTED UPPER G IB May 13, 2025 12:57pm Reason for Visit Admit Date Elevated troponin May 11, 2025 7:20 pm Exertional dyspnea May 11, 2025 7:20 pm Hypercalcemia May 11, 2025 7:20 pm Lung cancer May 11, 2025 7:20 pm Microcytic anemia May 11, 2025 7:20 pm Obstructive pneumonia May 11, 2025 7: 20pm Sinus tachycardia seen on cardiac monito r May 11, 2025 7:20pm Acute on chronic anemia May 11, 2025 7:20pm Advance Directives No Advanced Directives Records Found Advance Directive Response Recorded Date/ Time Do you have a Healthcare Power of Entry Level Truck Driver? No April 23, 2025 9:07pm Advance Directive Response Recorded Date/ Time Do you have a Healthcare Power of Entry Level Truck Driver? No May 04, 2025 11:25am Do you have a Healthcare Power of Entry Level Truck Driver? No April 23, 2025 9:07pm Advance Directive Response Recorded Date/ Time Do you have a Healthcare Power of Entry Level Truck Driver? No May 04, 2025 11:25am Do you have a Healthcare Power of Entry Level Truck Driver? No May 11, 2025 2:29pm Do you have a Healthcare Power of Entry Level Truck Driver? No April 23, 2025 9:07pm Advance Directive Response Recorded Date/ Time Do you have a Healthcare Power of Entry Level Truck Driver? No May 04, 2025 11:25am Do you have a Healthcare Power of Entry Level Truck Driver? No May 11, 2025 8:16pm Do you have a Healthcare Power of Entry Level Truck Driver? No April 23, 2025 9:07pm Summary Purpose Family History No Family History Records Found Additional Source Comments Care Teams (unrecognized sec tion and content) Team Status: Active Member Role Status Dates Carlene N Adithya , FOOT CUTTER-C Primary Care Provider Active Team Status: Inactive Member Role Status Dates Dr. Steven Tejeda DO Emergency Provider Active Start: April 23, 2025 End: April 24, 2025 Carleneelly Haji , FOOT CUTTER-C Primary Care Provider Active Start: April 23, 2025 End: April 24, 2025 Team Status: Inactive Member Role Status Dates Dr. Steven Tejeda DO Attending Provider Active Start: April 23, 2025 End: April 24, 2025 Dr. Steven Tejeda , Emergency Provider Active Start: April 23, 2025 End: April 24, 2025 Carleneelly Haji , FOOT CUTTER-C Primary Care Provider Active Start: April 23, 2025 End: April 24, 2025 Team Status: Inactive Member Role Status Dates Carlene Sonya Haji , FOOT CUTTER-C Primary Care Provider Active Start: May 04, 2025 End: May 04, 2025 Dr. Ike Dawson DO Emergency Provider Active Start : May 04, 2025 End: May 04, 2025 Team Status: Inactive Member Role Status Dates Carleneelly Haji , FOOT CUTTER-C Primary Care Provider Active Start: May 04, 2025 End: May 04, 2025 Dr. Ike Dawson DO Attending Provider Active Start : May 04, 2025 End: May 04, 2025 Dr. Ike Dawson DO Emergency Provider Active Start : May 04, 2025 End: May 04, 2025 Team Status: Active Member Role Status Dates Carlene Haji , FOOT CUTTER-C Primary Care Provider Active Start: May 11, 2025 Dr. Monty Clarke MD Emergency Provider Active Sta rt: May 11, [address] Stanley DO Admit Provider Active Start: May 11, [address] Stanley DO Attending Provider Active Start: May 11, 2025 Team Status: Inactive Member Role Status Dates Carlene Haji FOOT CUTTER-C Primary Care Provider Active Start: May 11, 2025 End: May 13, 2025 Dr. Monty Clarke MD Emergency Provider Active Sta rt: May 11, 2025 End: May 13, [address] Stanley DO Admit Provider Active Start: May 11, 2025 End: May 13, [address] Stanley DO Other Provider Active Start: May 11, 2025 End: May 13, 2025 Dr. Anthony Salgado MD Attending Provider Active Start: May 11, 2025 End: May 13, 2025 Team Status: Active Member Role Status Dates SID Haro Primary Care Provider Active Start: May 12, 2025 Dr. Monty Clarke MD Emergency Provider Active Sta rt: May 12, [address] Stanley DO Admit Provider Active Start: May 12, [address] Stanley DO Other Provider Active Start: May 12, 2025 Dr. Anthony Salgado MD Attending Provider Active Start: May 12, 2025 Dr. Anthony Salgado MD Other Provider Active Sta rt: May 12, 2025 Team Status: Active Member Role Status Dates Carlene Haji NP-René Primary Care Provider Active Start: May 13, 2025 Dr. Monty Clarke MD Emergency Provider Active Sta rt: May 13, [address] Stanley DO Admit Provider Active Start: May 13, [address] Stanley DO Other Provider Active Start: May 13, 2025 Dr. Anthony Salgado MD Attending Provider Active Start: May 13, 2025 Dr. Anthony Salgado MD Other Provider Active Sta rt: May 13, 2025 Goals (unrecognized section and content) Goals may be documented in a n alternate sectionGoals may be documented in an alternate sectionGoals may be documented in an alternate section (unrecognized sect ion and content) No Status Records Found INFORMATION SOURCE (unrecogn ized section and content) DATE CREATED AUTHOR 05/21/2025 [facility] FOR RECORDS PERTAINING TO PATIENTS WHO ARE [...] BE BASED ON THE PRIMARY CLINICAL RECORDS. [facility]. provides no warranty or guarantee of the accuracy or completeness of information in this document.
--- NOTE | 2025-07-03 20:20 | RAD_ITS ---
PROCEDURE: HIP, UNI W/ PELVIS 2-3 VIEWS 07/03/2025 REASON FOR EXAM: INJURY/PAIN TECHNIQUE: HIP, UNI W/ PELVIS 2-3 VIEWS Laterality: Right COMPARISON: CT abdomen pelvis 05/2024. FINDINGS: Bones: Diffuse osseous demineralization. Cortical irregularity along the right greater trochanter, extending across the intertrochanteric line. Joints: Normal alignment. Moderate degenerative changes. Soft tissues: Soft tissues are unremarkable. Other: The visualized bowel loops are nondilated. Pelvic phleboliths. RAD/HIP, UNI W/ Pelvis 2-3 Views IMPRESSION: Fracture of the right greater trochanter, extending into the intertrochanteric line. Malignancy can not be excluded. Reading Location: [id number]
[2025-07-03 21:09] VITALS: BP 160/98; PULSE 116; RESP 20; O2SAT 93
--- NOTE | 2025-07-03 21:35 | EKG12_ITS ---
Test Reason : DYSRHYTHMIA Blood Pressure : */* mmHG Vent. Rate : 112 BPM Atrial Rate : 112 BPM P-R Int : 158 ms QRS Dur : 76 ms QT Int : 334 ms P-R-T Axes : 44 68 61 degrees QTcB Int : 455 ms Sinus tachycardia Nonspecific T wave abnormality Abnormal ECG Confirmed by CHELSEA HERBERT, FARAZ ([id number]), manuscript editor JOSE NYE ([id number]) on 07/05/2025 1:12:48 PM Referred By: Confirmed By: FARAZ TRAN MD
[2025-07-03] MEDS: 0.9% Normal Saline (1000mL) 1,000 ML 1000 ML IV (21:43)
[2025-07-03 21:49] LABS: Mucous, Urine 0 SEEN /hpf (<or=2+)
--- NOTE | 2025-07-03 21:54 | CT_ITS ---
PROCEDURE: EXTREMITY LOWER WITHOUT CONTRA 07/03/2025 REASON FOR EXAM: R/O MALIGNANCY TECHNIQUE: EXTREMITY LOWER WITHOUT CONTRA Coronal and Sagittal reconstruction series were provided. One or more dose reduction techniques were used (e.g., Automated exposure control, adjustment of the mA and/or kV according to patient size, use of iterative reconstruction technique). RADIATION DOSE SUMMARY: DLP: 400 mGycm COMPARISON: Right hip radiographs earlier same day. FINDINGS: Bones: Acute, moderately comminuted and impacted intertrochanteric right proximal femoral fracture. Bone island within the right iliac crest and right femoral head. No aggressive osseous lesions. Joints: Degenerative changes are present. No intra-articular fracture extension. Arthrosis of the right SI joint and pubic symphysis. Soft Tissues: No large soft tissue swelling or hematoma. Distention of the urinary bladder. CT/Extremity Lower without Contra IMPRESSION: Acute, moderately comminuted and impacted right intertrochanteric femoral fract ure. No aggressive osseous lesions. Reading Location: [id number]
[2025-07-03 22:04] LABS: Hematocrit 27.9 % (40-54); Hemoglobin 8.4 g/dL (13.0-16.5); Immature Granulocytes Count 0.060 X10^3/uL (0.0-0.0); Mean Corp Hgb Conc 30.1 g/dL (32-36); Mean Corpuscular Volume 70.6 fL (80-94); Mean Platelet Vol. 9.1 fl (6.2-12.0); NRBC Flagged by Analyzer 0 % (0-5); POSITIVE MORPHOLOGY YES; Platelet Count 300 K/mm3 (150-450); RBC Distribution Width CV 22.6 % (11.6-14.6); RBC Distribution Width SD 56.9 fl (35.1-43.9); Red Blood Count 3.95 M/mm3 (4.6-6.2); White Blood Count 12.7 K/mm3 (4.4-11.0)
[2025-07-03 22:06] LABS: Differential Indicated SCAN CRITERIA MET
[2025-07-03 22:09] LABS: Prothrombin Time (Protime)PT. 15.5 SECONDS (11.7-14.9)
[2025-07-03 22:10] LABS: Partial Thromboplast Time 22.7 Seconds (24.1-36.2)
[2025-07-03 22:12] LABS: Color, Urine Yellow (Yellow); Glucose, Dipstick 100 mg/dl (Normal); Ketone-Dipstick Negative (Negative); Leukocyte Esterase-Dipstick Negative /ul (Negative); Nitrite-Dipstick Negative (Negative); Occult Blood-Urine 10 /ul (Negative); Protein-Dipstick 100 mg/dl (Negative); Specific Gravity, Urine 1.010 (1.002-1.030); Urine Bilirubin Dipstick Negative (Negative)
[2025-07-03 22:24] LABS: Red Blood Cells-Urine 0-5 SEEN /hpf (0-5); Squamous Epithelial Cells - UA 0-5 SEEN /hpf (0-5)
[2025-07-03 22:37] LABS: Anisocytosis 1+; Burr Cells RARE; Differential Comment SCANNED; Hypochromasia 1+; Microcytosis 1+
--- NOTE | 2025-07-03 22:37 | HP.PCM.HOS_ITS ---
HPI - General General Date of Admission: 07/03/25 Date of Service: 07/03/25 Chief Complaint: Fall, R hip pain. 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, Diabetes mellitus type II with chronic neuropathy, Anxiety and Depression, GERD, Hx CVA, Chronic anemia, Former tobacco use, COPD, recent transfer to the [place] from [facility] on 05/13/25 following large right-sided lung cancer wit suspected postobstructive pneumonia with acute metabolic encephalopathy suspected secondary to hypercalcemia of malignancy in addition to acute on chronic anemia with suspected upper GI bleed for further evaluation who now presents to the [facility] ED on 07/03/2025 with onset of right hip discomfort reportedly following a fall onto the right hip with pain worse with any movement described as sharp, stabbing with inability to ambulate or stand/bear weight with no associated paresthesias nor any head trauma or loss of consciousness but given ongoing pain prompted ED evaluation. Workup in the ED included T98.7, heart rate 113, BP 185/93, respiratory rate 18, 95% on room air, plain film of the right hip and pelvis with a fracture the right greater trochanter extending into the intertrochanteric line with malignancy unable to be excluded, CT right hip and pelvis with acute moderately commuted and impacted right intertrochanteric femoral fracture with no aggressive osseous lesions identified, CBC with WBC 12.7, hemoglobin 8.4, MCV 70.6, platelet 300 with left shift and lymphopenia, coags with PT 15.5, INR 1.2, PTT 22.7, BMP [], urinalysis unremarkable. In the ED patient ministered 1 L normal saline, morphine 4 mg IV x 1. ED discussed case with orthopedic surgeon Dr. Campbell who recommended CT and if there is no evidence of acute osseous lesion would plan to admit to [facility] and evaluate for repair of hip fracture. [facility] Medical History Cancer of right lung Anxiety and depression GERD (gastroesophageal reflux disease) Cirrhosis Former smoker TIA (transient ischemic attack) Kidney stones Neuropathy PTSD (post-traumatic stress disorder) Hepatitis COPD (chronic obstructive pulmonary disease) Hypertension Diabetes Home Medications ?Medication ?Instructions ?Recorded ?Last Taken ?Type gabapentin 300 mg capsule 300 mg PO TID neuropathy 01/09 Unknown History amlodipine 5 mg tablet 5 mg PO QHS blood pressure 0 05/09/21 Unknown History aspirin 81 mg tablet,delayed 81 mg PO DAILY heart heal th 05/09/21 Unknown History release budesonide-formoterol HFA 80 2 puff inhalation 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 D 05/09/21 Unknown History mcg-4.5 mcg/actuation aerosol inhaler (Symbicort) cyclobenzaprine 10 mg tablet 10 mg PO TID PRN muscle s pasms 05/09/21 Unknown History sildenafil 100 mg tablet 100 mg PO DAILY PRN Erectile 05/09/21 Unknown History Dysfunction atorvastatin 80 mg tablet 80 mg PO QHS #90 tabs Unknown Rx insulin aspart U-100 100 unit/mL 10 unit subcut TIDCM 12/12/24 Unknown History (3 mL) subcutaneous pen (Novolog FlexPen U-100 Insulin aspart) insulin glargine 100 unit/mL (3 10 unit subcut QPM 09/18 Unknown History mL) subcutaneous pen (Lantus Solostar U-100 Insulin) magnesium hydroxide 400 mg/5 mL 5 ml PO DAILY PRN cons tipation 05/04/25 05/03/25 History oral suspension (Gentle Laxative (magnesium hydroxide)) ropinirole 1 mg tablet 1 mg PO DAILY 05/04/25 Unkno wn History Allergy/AdvReac Type Severity Reaction Status Date / Time No Known Allergies Allergy Verified 05/11/25 14:05 Family History Mother CVA (cerebral vascular accident) Surgical History Hx of appendectomy Social History household members: none housing: apartment Smoking Status: Current some day smoker tobacco type: cigarettes and cigars Vital Signs Vital Signs Vital Signs: 07/03/25 19:10 07/03/25 21:09 Temperature 98.7 F Temperature Source Oral Pulse Rate 113 H 116 H Respiratory Rate 18 20 H Blood Pressure 185/93 H 160/98 H Blood Pressure Mean 123 118 Pulse Ox 95 93 Oxygen Delivery Method Room Air Room Air Weight Weight: 143 lb 1.28 oz Body Mass Index (BMI) 18.8 Results Lab / Micro Data 07/03/25 21:46 07/03/25 21:46 Labs: Laboratory Results - last 24 hr 07/03/25 21:43: Urine Color Yellow, Urine Clarity Clear, Urine pH 6.0, Ur Specific Dike 1.010, Urine Protein 100 H, Urine Glucose (UA) 100 H, Urine Ketones Negative, Urine Occult Blood 10 H, Urine Nitrite Negative, Urine Bilirubin Negative, Urine Urobilinogen Normal, Ur Leukocyte Esterase Negative, Urine RBC 0-5 SEEN, Urine WBC 0-5 SEEN, Ur Squamous Epith Cells 0-5 SEEN, Urine Bacteria RARE, Hyaline Casts 0-5 SEEN, Urine Mucus 0 SEEN 07/03/25 21:46: WBC 12.7 H, RBC 3.95 L, Hgb 8.4 L, Hct 27.9 L, MCV 70.6 L, MCH 21.3 L, MCHC 30.1 L, RDW Std Deviation 56.9 H, RDW Coeff of Tiffany 22.6 H, Plt Count 300, MPV 9.1, Immature Gran % (Auto) 0.500, Neut % (Auto) 90.1 H, Lymph % (Auto) 6.3 L, Hancock % (Auto) 2.8, Eos % (Auto) 0.1, Baso % (Auto) 0.2, Absolute Neuts (auto) 11.4 H, Absolute Lymphs (auto) 0.80 L, Nucleated RBC % 0, PT 15.5 H , INR 1.2, APTT 22.7 L Imaging Radiology Impression Hip/Pelvis X-Ray 07/03/25 20:20 IMPRESSION: Fracture of the right greater trochanter, extending into the intertrochanteric line. Malignancy can not be excluded. Reading Location: [facility] Lower Extremity CT 07/03/25 21:54 IMPRESSION: Acute, moderately comminuted and impacted right intertrochanteric femoral fracture. No aggressive osseous lesions. 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, Diabetes mellitus type II with chronic neuropathy, Anxiety and Depression, GERD, Hx CVA, Chronic anemia, Former tobacco use, COPD, [facility] on 05/[facility]/25 following large right-sided lung cancer wit suspected postobstructive pneumonia with acute metabolic encephalopathy suspected secondary to hypercalcemia of malignancy in addition to acute on chronic anemia with suspected upper GI bleed for further evaluation who now presents to the [facility] ED on 07/03/2025 with onset of right hip discomfort reportedly following a fall onto the right hip with pain worse with any movement described as sharp, stabbing with inability to ambulate or stand/bear weight with no associated paresthesias nor any head trauma or loss of consciousness but given ongoing pain prompted ED evaluation. #1. General debility, right hip pain s/p mechanical fall w/ fracture of the right greater trochanter extending into the intertrochanteric line: Orthopedic surgery consulted from ED. CT right hip and pelvis obtained additionally with noted with acute moderately commuted and impacted right intertrochanteric femoral fracture with no aggressive osseous lesions identified Will admit to [facility], maintain NPO, judiciously administer IVFs, quinones placement, monitor I/Os, frequent positioning, fall precautions, as needed pain, anti-emetic regimen. PT/OT following operative intervention. CM consulted for discharge planning. Most recent echocardiogram noted 05/11/2021 with EF 60%, normal diastole for age, moderate focal AV calcification. #2. Right sided lung cancer (suprahilar, unclear exact specific type) with associated hypercalcemia of malignancy with [facility] evaluation: Following [facility] oncology, from discussion with patient and significant difficulty with transportation and receiving chemotherapy, setting up visits, magnesium and phosphorus levels requested, encouraged [facility]. #3. Chronic microcytic anemia, recent GI bleed presentation: Admission hemoglobin 8.4, MCV 70.6, baseline hemoglobin more recently 7-8, has trended down since 2023, from current list does not appear to be on iron supplementation, will obtain iron panel, ferritin, trend CBC. #4. Hx CVA: Patient with previous acute right posterior parietal lobe infarct with associated 50 to 69% narrowing of the left internal carotid artery at that time, will continue aspirin, statin, hypertensive regimen, diabetic regimen with adjustments as able. #5. Chronic Kidney Disease Stage II per GFR trend: Admission BUN/Cr [], baseline renal function 0.9-1.2 primarily, repeat BMP in AM. #6. Diabetes mellitus type II with chronic neuropathy: Hold oral home regimen, continue home insulin regimen, ADA diet, accu checks w/ ISS, continue home gabapentin regimen. #7. 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 #8. Anxiety and depression: Per current list does not appear to be on regimen, encourage continued follow-up outpatient for further evaluation. #9. Hypertension: Continue home regimen including amlodipine, PRN hydralazine. #10. Hyperlipidemia: Will continuation of statin therapy. #11. Chronic COPD: Will temporally hold home inhaler and in the interim maintain on ATC budesonide therapy, PRN albuterol, HOB, IS parameters. #12. GERD: Per current list on a regimen, will have as needed Mylanta regimen. #13. Former tobacco use: Encouraged continued tobacco cessation. #14. Restless leg syndrome: Will continue patient on Requip regimen. #15. DVT prophylaxis: SCDs given pending orthopedic surgery evaluation for operative intervention. #16. CODE status: Patient HCPOA is [] and living will is []. Discussed CODE status at length including difference between FULL code, DNR-CCA and DNR-CC status. Following discussions about the differences in these status, requested []. Advanced Care Planning Face to Face Time: [] minutes.
--- NOTE | 2025-07-03 22:37 | PCM.HP.STD ---
HPI - General General Date of Admission: 07/03/25 Date of Service: 07/03/25 Chief Complaint: Fall, R hip pain. 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, Diabetes mellitus type II with chronic neuropathy, Anxiety and Depression, GERD, Hx CVA, Chronic anemia, Former tobacco use, COPD, recent [facility] on 05/13/25 following large right-sided lung cancer wit suspected postobstructive pneumonia with acute metabolic encephalopathy suspected secondary to hypercalcemia of malignancy in addition to acute on chronic anemia with suspected upper GI bleed for further evaluation who now presents to the [facility] ED on 07/03/2025 with onset of right hip discomfort reportedly following a fall onto the right hip with pain worse with any movement described as sharp, stabbing with inability to ambulate or stand/bear weight with no associated paresthesias nor any head trauma or loss of consciousness but given ongoing pain prompted ED evaluation. Prior to ED arrival patient reported pain 10 out of 10 to the right hip and upon hospitalist evaluation following ED intervention reported pain decreased to 6-7 out of 10 in severity. Workup in the ED included T98.7, heart rate 113, BP 185/93, respiratory rate 18, 95% on room air, plain film of the right hip and pelvis with a fracture the right greater trochanter extending into the intertrochanteric line with malignancy unable to be excluded, CT right hip and pelvis with acute moderately commuted and impacted right intertrochanteric femoral fracture with no aggressive osseous lesions identified, CBC with WBC 12.7, hemoglobin 8.4, MCV 70.6, platelet 300 with left shift and lymphopenia, coags with PT 15.5, INR 1.2, PTT 22.7, BMP carbon dioxide 20.2, BUN/creatinine 14/0.86, GFR 89, glucose 204, urinalysis unremarkable, EKG with ST with nonspecific ST-T changes with no acute evidence of ischemia. In the ED patient ministered 1 L normal saline, morphine 4 mg IV x 1. ED discussed case with orthopedic surgeon Dr. Campbell who recommended CT and if there is no evidence of acute osseous lesion would plan to admit to [facility] and evaluate for repair of hip fracture. [facility] Medical History (Updated 07/03/25 @ 23:[address] Johanne Evans MD) CKD (chronic kidney disease), stage II Chronic anemia Cancer of right lung Anxiety and depression GERD (gastroesophageal reflux disease) Cirrhosis Former smoker TIA (transient ischemic attack) Kidney stones Neuropathy PTSD (post-traumatic stress disorder) Hepatitis COPD (chronic obstructive pulmonary disease) Hypertension Diabetes Home Medications ?Medication ?Instructions ?Recorded ?Last Taken ?Type gabapentin 300 mg capsule 300 mg PO TID neuropathy 02/24/15 Unknown History amlodipine 5 mg tablet 5 mg PO QHS blood pressure 05/09/21 Unknown History aspirin 81 mg tablet,delayed 81 mg PO DAILY heart health 05/09/21 Unknown History release budesonide-formoterol HFA 80 2 puff inhalation BID COPD 05/09/21 Unknown History mcg-4.5 mcg/actuation aerosol inhaler (Symbicort) cyclobenzaprine 10 mg tablet 10 mg PO TID PRN muscle spasms 05/09/21 Unknown History sildenafil 100 mg tablet 100 mg PO DAILY PRN Erectile 05/09/21 Unknown History Dysfunction atorvastatin 80 mg tablet 80 mg PO QHS #90 tabs 05/12/21 Unknown Rx insulin aspart U-100 100 unit/mL 10 unit subcut TIDCM 12/12/24 Unknown History (3 mL) subcutaneous pen (Novolog FlexPen U-100 Insulin aspart) insulin glargine 100 unit/mL (3 10 unit subcut QPM 05/04/25 Unknown History mL) subcutaneous pen (Lantus Solostar U-100 Insulin) magnesium hydroxide 400 mg/5 mL 5 ml PO DAILY PRN constipation 05/04/25 05/03/25 History oral suspension (Gentle Laxative (magnesium hydroxide)) ropinirole 1 mg tablet 1 mg PO DAILY 05/04/25 Unknown History Allergy/AdvReac Type Severity Reaction Status Date / Time No Known Allergies Allergy Verified 05/11/25 14:05 Family History Mother CVA (cerebral vascular accident) other (Patient reports not knowing his paternal or paternal family history.) Surgical History Hx of appendectomy Social History (Updated 07/03/25 @ 23:[address] Johanne Evans MD) household members: none housing: apartment Smoking Status: Current some day smoker tobacco type: cigarettes and cigars alcohol intake: never substance use type: does not use ROS ROS Narrative Admission Review of Systems: CONSTITUTIONAL: No weight loss, fever, chills, + weakness or fatigue. HEENT: Eyes: No visual loss, blurred vision, double vision or yellow sclerae. Ears, Nose, Throat: No hearing loss, sneezing, congestion, runny nose or sore throat. SKIN: No rash or itching, lesions, wounds except + occasional abrasion. CARDIOVASCULAR: No chest pain, chest pressure or chest discomfort, palpitations, edema, orthopnea, syncopal events. RESPIRATORY: + Chronic cough. No marked dyspnea or productive sputum sputum, wheezing, hemoptysis. GASTROINTESTINAL: No anorexia, nausea, vomiting or diarrhea, abdominal pain, melena, BRBPR. GENITOURINARY: No dysuria, frequency, urgency or retention. NEUROLOGICAL: No headache, dizziness, syncope, paralysis, ataxia, numbness or tingling in the extremities, focal weakness, change in bowel or bladder control, seizure. MUSCULOSKELETAL: + muscle, back pain, joint pain or stiffness. HEMATOLOGIC: + Chronic anemia, no marked history of easy bleeding/bruising. LYMPHATICS: No enlarged nodes. No history of splenectomy. PSYCHIATRIC: + History of anxiety and depression. ENDOCRINOLOGIC: No reports of sweating, cold or heat intolerance. No polyuria or polydipsia. ALLERGIES: No history of asthma, hives, eczema or rhinitis. Vital Signs Vital Signs Vital Signs: 07/03/25 19:10 07/03/25 21:09 Temperature 98.7 F Temperature Source Oral Pulse Rate 113 H 116 H Respiratory Rate 18 20 H Blood Pressure 185/93 H 160/98 H Blood Pressure Mean 123 118 Pulse Ox 95 93 Oxygen Delivery Method Room Air Room Air Weight Weight: 143 lb 1.28 oz Body Mass Index (BMI) 18.8 Physical Exam Narrative Physical Examination: General: Awake, alert, oriented x 3 and cooperative, laying in the ED bed, rates right hip discomfort 7 out of 10 in severity Skin: Normal color, normal turgor, no icterus, no cyanosis except occasional abrasion. HEENT: AT/NC, EOMI, PERRLA, mildly dry MM, missing several teeth, no carotid bruits or JVD noted. Lungs: Diminished, greater bases, appropriate effort, no appreciated rales, ronchi or wheezing. Heart: Mildly tachycardic with regular rhythm; no gallop, rub audible. Abdomen: Soft, thin habitus, NTTP, ND, mildly hyperactive BS, + HM. Extremities: No cyanosis, no clubbing, no significant distal edema, distal pulses intact, status post fall with right hip fracture. Neurological: Patient awake, alert, oriented as noted, cognitive function intact; pupils equally reactive to light and accommodation, cranial nerves grossly normal, moving all 4 extremities except expected limitation given fall with right hip fracture, strength severely globally decreased Psychiatric: Affect appears fatigued, uncomfortable, flat, no acute evidence of depressive or anxiety feelings but does have underlying psychiatric history. Results Lab / Micro Data 07/03/25 21:46 07/03/25 21:46 Labs: Laboratory Results - last 24 hr 07/03/25 21:43: Urine Color Yellow, Urine Clarity Clear, Urine pH 6.0, Ur Specific [place] 1.010, Urine Protein 100 H, Urine Glucose (UA) 100 H, Urine Ketones Negative, Urine Occult Blood 10 H, Urine Nitrite Negative, Urine Bilirubin Negative, Urine Urobilinogen Normal, Ur Leukocyte Esterase Negative, Urine RBC 0-5 SEEN, Urine WBC 0-5 SEEN, Ur Squamous Epith Cells 0-5 SEEN, Urine Bacteria RARE, Hyaline Casts 0-5 SEEN, Urine Mucus 0 SEEN 07/03/25 21:46: WBC 12.7 H, RBC 3.95 L, Hgb 8.4 L, Hct 27.9 L, MCV 70.6 L, MCH 21.3 L, MCHC 30.1 L, RDW Std Deviation 56.9 H, RDW Coeff of Tiffany 22.6 H, Plt Count 300, MPV 9.1, Immature Gran % (Auto) 0.500, Neut % (Auto) 90.1 H, Lymph % (Auto) 6.3 L, [place] % (Auto) 2.8, Eos % (Auto) 0.1, Baso % (Auto) 0.2, Absolute Neuts (auto) 11.4 H, Absolute Lymphs (auto) 0.80 L, Nucleated RBC % 0, PT 15.5 H, INR 1.2, APTT 22.7 L Imaging Radiology Impression Hip/Pelvis X-Ray 07/03/25 20:20 IMPRESSION: Fracture of the right greater trochanter, extending into the intertrochanteric line. Malignancy can not be excluded. Reading Location: [id number] Lower Extremity CT 07/03/25 21:54 IMPRESSION: Acute, moderately comminuted and impacted right intertrochanteric femoral fracture. No aggressive osseous lesions. 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, Diabetes mellitus type II with chronic neuropathy, Anxiety and Depression, GERD, Hx CVA, Chronic anemia, Former tobacco use, COPD, recent [facility] on 05/13/25 following large right-sided lung cancer wit suspected postobstructive pneumonia with acute metabolic encephalopathy suspected secondary to hypercalcemia of malignancy in addition to acute on chronic anemia with suspected upper GI bleed for further evaluation who now presents to the [facility] ED on 07/03/2025 with onset of right hip discomfort reportedly following a fall onto the right hip with pain worse with any movement described as sharp, stabbing with inability to ambulate or stand/bear weight with no associated paresthesias nor any head trauma or loss of consciousness but given ongoing pain prompted ED evaluation. #1. General debility, right hip pain s/p mechanical fall w/ fracture of the right greater trochanter extending into the intertrochanteric line: Orthopedic surgery consulted from ED. CT right hip and pelvis obtained additionally with noted with acute moderately commuted and impacted right intertrochanteric femoral fracture with no aggressive osseous lesions identified Will admit to [facility], maintain NPO, judiciously administer IVFs, quinones placement, monitor I/Os, frequent positioning, fall precautions, T+S requested, as needed pain, anti-emetic regimen. PT/OT following operative intervention. CM consulted for discharge planning. Per NSQIP patient with at least moderate risk likely more so elevated above this given his underlying significant comorbidities and active cancer with ongoing chemotherapy. EKG with ST with nonspecific ST-T changes with no acute evidence of ischemia. Most recent echocardiogram noted 05/11/2021 with EF 60%, normal diastole for age, moderate focal AV calcification. Will obtain BMP and if this is elevated low threshold to obtain repeat echo and request cardiology preoperative evaluation. #2. Right sided lung cancer (suprahilar, unclear exact specific type) with associated hypercalcemia of malignancy with [facility] evaluation: Following with [facility], from discussion with patient and significant difficulty with transportation and receiving chemotherapy, setting up visits, magnesium and phosphorus levels requested, encouraged [facility]. #3. Chronic microcytic anemia, recent GI bleed presentation: Admission hemoglobin 8.4, MCV 70.6, baseline hemoglobin more recently 7-8, has trended down since 2023, from current list does not appear to be on iron supplementation, will obtain iron panel, ferritin, trend CBC. Pending results may be appropriate for course of IV iron transition to oral regimen. #4. Hx CVA: Patient with previous acute right posterior parietal lobe infarct with associated 50 to 69% narrowing of the left internal carotid artery at that time, will continue aspirin, statin, hypertensive regimen, diabetic regimen with adjustments as able. #5. Chronic Kidney Disease Stage II per GFR trend: Admission BUN/Cr 14/0.86, GFR 89, baseline renal function 0.9-1.2 primarily, repeat BMP in AM. #6. Diabetes mellitus type II with chronic neuropathy: Hold oral home regimen, continue home insulin regimen, ADA diet until NPO status, accu checks w/ ISS, continue home gabapentin regimen. #7. 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 #8. Anxiety and depression: Per current list does not appear to be on regimen, encourage continued follow-up outpatient for further evaluation. #9. Hypertension: Continue home regimen including amlodipine, PRN hydralazine. #10. Hyperlipidemia: Will continuation of statin therapy. #11. Chronic COPD: Will temporally hold home inhaler and in the interim maintain on ATC budesonide therapy, PRN albuterol, HOB, IS parameters. #12. GERD: Per current list on a regimen, will have as needed Mylanta regimen. #13. Tobacco Abuse: Patient notes that he occasionally still has a cigarette but not all the time and not daily, encouraged cessation, inpatient consultation per RT, NR if desired. #14. Restless leg syndrome: Will continue patient on Requip regimen. #15. Severe protein calorie malnutrition: BMI reduced, obvious muscle and fat loss, significant underlying morbidities including active cancer on chemotherapy, mag and Phos requested, nutrition consulted for recommendations. #16. DVT prophylaxis: SCDs given pending orthopedic surgery evaluation for operative intervention. #17. CODE status: Patient HCPOA and living will are not in place but he notes his daughter will be his medical decision-maker if necessary. Discussed CODE status at length including difference between FULL code, DNR-CCA and DNR-CC status. Following discussions about the differences in these status, requested Full Code status. Did frankly discuss patient underlying health history, comorbidities and prognosis if cardiopulmonary event should arise any understands that the likelihood of a good outcome would be low. Advanced Care Planning Face to Face Time: 16 minutes. Charges/Coding Visit Charges Inpatient E&M: 26264 Init Hosp L3 Procedures Hospitalists Procedures: 18207 Advncd Care Plan 30 Min
[2025-07-03 22:38] LABS: Other RBC Morphology RARE
[2025-07-03 22:52] LABS: Anion Gap 13 (5-15); BUN 14 mg/dL (4-19); BUN/Creat Ratio 16.8 RATIO (10-20); Calcium,Total 9.7 mg/dL (7.6-11.0); Carbon Dioxide 20.2 mmol/L (21.0-32.0); Chloride 100 mmol/L (98-108); Estimated Creatinine Clearance 66.03 ml/min (50-250); Glucose 204 mg/dL (70-99); Potassium 4.8 mmol/L (3.3-5.1)
[2025-07-03 23:00] VITALS: BP 160/90; PULSE 115; RESP 22; O2SAT 96
[2025-07-03 23:03] VITALS: BP 160/90; PULSE 115; RESP 22; TEMP 36.8; O2SAT 96
--- NOTE | 2025-07-03 23:17 | PCA ---
[facility] CALLED [facility], LEFT VM ON A CONFIDENTIAL VM AND FAXED CHART
--- OUTSIDE RECORDS SUMMARY | 2025-07-03 23:22 | XMS RPT_ITS | CCD ---
Author Organization [facility] Care Team Providers Care Rehabilitation Physician Name Role Phone Dr. Steven Tejeda DO Emergency Provider Adithya PLUMBING ENGINEERING DRAFTSPERSON-CCarlene Primary Care Provider Dr. Steven Tejeda DO Attending Provider Dr. Ike Dawson DO Emergency Provider [phone] Ike Dwason DO Attending Provider [phone] Monty Clarke MD Emergency Provider Dr. Lane Stanley DO Admit Provider Dr. Lane Stanley DO Attending Provider Dr. Lane Stanley DO Other Provider Damian HERBERT, Dr. Cruz Attending Provider Damian HERBERT, Dr. Cruz Other Provider [phone] [address] Stanley Admitting Unavailable Lane Stanley Unavailable Lane Stanley Attending Unavailable Carlene Haji Primary Care Unavailable Anthony Salgado Attending Unavailable Anthony Salgado Consulting Unavailable Ike Dawson Attending Unavailable Adithya, Carlene N Primary Care Unavailable [facility] [place] Primary Care Unavailable César Short Attending Unavailable [facility] [place] [facility] Unavailable Juana Michaud Attending Unavailable Juvencio Shen Attending Unavailable [facility] [place] Primary Care Unavailable Lane Stanley Admitting Unavailable [...] 12:10pm Start: 05-09-2021 take 1 tablet by arndi th once daily Aspirin 81 mg Tablet,Delayed [...] Profile (BMP )on 05-14-2025 BUN Normal - [facility] Comment on above: Result Comment: Canc elled via OM: Order cancelled - Patient discharged Performed By: #### L 100.0100, L500.2500 #### [facility] [address] [facility] [address] BUN/CRE Normal - [facility] Comment on above: Result Comment: Canc elled via OM: Order cancelled - Patient discharged Performed By: #### L 100.0100, L500.2500 #### [facility] [address] [place], [address] Calcium Normal 7.6-11.0 [facility] Comment on above: Result Comment: Canc elled via OM: Order cancelled - Patient discharged Performed By: #### L 100.0100, L500.2500 #### [facility] [address] [place], [address] CL Normal 98-108 [facility] Comment on above: Result Comment: Canc elled via OM: Order cancelled - Patient discharged Performed By: #### L 100.0100, L500.2500 #### [facility] [address] [place], [address] CO2 Normal 21.0-32.0 [facility] Comment on above: Result Comment: Canc elled via OM: Order cancelled - Patient discharged Performed By: #### L 100.0100, L500.2500 #### [facility] [address] [place], [address] CREAT,SERUM Normal 0.70-1.20 [facility] Comment on above: Result Comment: Canc elled via OM: Order cancelled - Patient discharged Performed By: #### L 100.0100, L500.2500 #### [facility] [address] [place], [address] eGFR Normal >60 [facility] Comment on above: Result Comment: Canc elled via OM: Order cancelled - Patient discharged Performed By: #### L 100.0100, L500.2500 #### [facility] [address] [place], [address] GAP Normal 5-15 [facility] Comment on above: Result Comment: Canc elled via OM: Order cancelled - Patient discharged Performed By: #### L 100.0100, L500.2500 #### [facility] [address] [place], [address] GLU Normal 70-99 [facility] Comment on above: Result Comment: Canc elled via OM: Order cancelled - Patient discharged Performed By: #### L 100.0100, L500.2500 #### [facility] [address] [place], [address] Potassium Normal 3.3-5.1 [facility] Comment on above: Result Comment: Canc elled via OM: Order cancelled - Patient discharged Performed By: #### L 100.0100, L500.2500 #### [facility] [address] [place], [address] Basic Metabolic Profile (BMP) Normal 133-145 [facility] Comment on above: Result Comment: Canc elled via OM: Order cancelled - Patient discharged Performed By: #### L 100.0100, L500.2500 #### [facility] [address] [place], [address] CBC W/Diff, Automatedon 06-2 0-2024 Absolute Neut Normal 2.0-7.7 [facility] Comment on above: Result Comment: Canc elled via OM: Order cancelled - Patient discharged Performed By: #### L 100.0100, L500.2500 #### [facility] [address] [place], [address] HCT Normal 40-54 [facility] Comment on above: Result Comment: Canc elled via OM: Order cancelled - Patient discharged Performed By: #### L 100.0100, L500.2500 #### [facility] [address] [place], [address] HGB Normal 13.0-16.5 [facility] Comment on above: Result Comment: Canc elled via OM: Order cancelled - Patient discharged Performed By: #### L 100.0100, L500.2500 #### [facility] [address] [place], [address] MCH Normal 27.0-32.0 [facility] Comment on above: Result Comment: Canc elled via OM: Order cancelled - Patient discharged Performed By: #### L 100.0100, L500.2500 #### [facility] [address] [place], [address] MCHC Normal 32-36 [facility] Comment on above: Result Comment: Canc elled via OM: Order cancelled - Patient discharged Performed By: #### L 100.0100, L500.2500 #### [facility] [address] [place], [address] MCV Normal 80-94 [facility] Comment on above: Result Comment: Canc elled via OM: Order cancelled - Patient discharged Performed By: #### L 100.0100, L500.2500 #### [facility] [address] [place], [address] NEUT% Normal 47-70 [facility] Comment on above: Result Comment: Canc elled via OM: Order cancelled - Patient discharged Performed By: #### L 100.0100, L500.2500 #### [facility] [address] [place], [address] PLT Normal 150-450 [facility] Comment on above: Result Comment: Canc elled via OM: Order cancelled - Patient discharged Performed By: #### L 100.0100, L500.2500 #### [facility] [address] [place], [address] RBC Normal 4.6-6.2 [facility] Comment on above: Result Comment: Canc elled via OM: Order cancelled - Patient discharged Performed By: #### L 100.0100, L500.2500 #### [facility] [address] [place], [address] RDW CV Normal 11.6-14.6 [facility] Comment on above: Result Comment: Canc elled via OM: Order cancelled - Patient discharged Performed By: #### L 100.0100, L500.2500 #### [facility] [address] [place], [address] RDW SD Normal 35.1-43.9 [facility] Comment on above: Result Comment: Canc elled via OM: Order cancelled - Patient discharged Performed By: #### L 100.0100, L500.2500 #### [facility] [address] [place], [address] WBC Normal 4.4-11.0 [facility] Comment on above: Result Comment: Canc elled via OM: Order cancelled - Patient discharged Performed By: #### L 100.0100, L500.2500 #### [facility] [address] [place], [address] Absolute lymphocyte countOrd ered By: Anthony Salgado on 05-13-2025 Lymphocytes Auto (Unsp spec) [#/Vol] 1.93 10*3/uL 0.83-4.51 [facility] Absolute neutrophil countOrd ered By: Anthonypiedad Salgado on 05-13-2025 Neutrophils (Bld) [#/Vol] 8.9 10*3/uL High 2.0-7.7 [facility] Anion gap in Serum or Plasma Ordered By: Anthony Salgado on 05-13-2025 Anion gap [Moles/Vol] 11 mmol/L 5-15 [facility] Automated lymphocyte count a s percentage of total leukocytesOrdered By: Anthony Salgado on 05-13-2025 Lymphocytes/100 WBC Auto (Unsp spec) 16.4 % Low 19- [facility] BUN/creatinine ratioOrdered By: Anthony Salgado on 05-13-2025 Urea nitrogen/Creatinine [Mass ratio] 9.2 mg/mg Low 10-20 [facility] Basic Metabolic Profile (BMP )on 05-13-2025 BUN/CRE 9.2 RATIO Low 10-20 [facility] Comment on above: Performed By: #### L 100.0100, L500.4050 #### [facility] [address] [place], [address] Calcium [Mass/Vol] 9.7 mg/dL Normal 7.6-11.0 [facility] Comment on above: Performed By: #### L 100.0100, L500.4050 #### [facility] [address] [place], [address] Chloride [Moles/Vol] 104 mmol/L Normal 98-108 [facility] Comment on above: Performed By: #### L 100.0100, L500.4050 #### [facility] [address] [place], [address] CO2 [Moles/Vol] 22.8 mmol/L Normal 21.0-32.0 [facility] Comment on above: Performed By: #### L 100.0100, L500.4050 #### [facility] [address] [place], [address] Creatinine [Mass/Vol] 1.07 mg/dL Normal 0.70-1.20 [facility] Comment on above: Performed By: #### L 100.0100, L500.4050 #### [facility] [address] [place], [address] ECRCL 53.58 ml/min Normal 50-250 [facility] Comment on above: Performed By: #### L 100.0100, L500.4050 #### [facility] [address] [place], [address] GAP 11 Normal 5-15 [facility] Comment on above: Performed By: #### L 100.0100, L500.4050 #### [facility] [address] [place], [address] GFR/1.73 sq M.predicted among non-blacks MDRD (S/P/Bld) [Vol rate/Area] 72 mL/min/{1.73_m2} Normal >60 [facility] Comment on above: Result Comment: mL/m in/1.73m2 CKD-EPI Creatinine Equation (2020) Performed By: #### L 100.0100, L500.4050 #### [facility] [address] [place], [address] Glucose [Mass/Vol] 207 mg/dL High 70-99 [facility] Comment on above: Performed By: #### L 100.0100, L500.4050 #### [facility] [address] [place], [address] Potassium [Moles/Vol] 3.2 mmol/L Low 3.3-5.1 [facility] Comment on above: Performed By: #### L 100.0100, L500.4050 #### [facility] [address] [place], [address] Sodium [Moles/Vol] 137 mmol/L Normal 133-145 [facility] Comment on above: Performed By: #### L 100.0100, L500.4050 #### [facility] [address] [place], [address] Urea nitrogen [Mass/Vol] 10 mg/dL Normal 4-19 [facility] Comment on above: Performed By: #### L 100.0100, L500.4050 #### [facility] [address] [place], [address] Basophil percentageOrdered B y: Anthonypiedad Salgado on 05-13-2025 Basophils/100 WBC (Bld) 0.2 % 0-1 [facility] Bedside Glucoseon 05-13-2025 FINGERSTICK GLU 325 mg/dL High 74-106 [facility] Comment on above: Result Comment: BELLA GEMENT OF PATIENT CARE PER NURSING PROTOCOL Performed By: #### L 501.080 #### [facility] [address] [place], [address] FINGERSTICK GLU 190 mg/dL High 74-106 [facility] Comment on above: Result Comment: BELLA GEMENT OF PATIENT CARE PER NURSING PROTOCOL Performed By: #### L 501.080 #### [facility] [address] [place], [address] CBC W/Diff, Automatedon 04-25 Absolute Lymph 1.93 X10 3/uL Normal 0.83-4.51 [facility] Comment on above: Performed By: #### L 400.0001 #### [facility] [address] [place], [address] Absolute Neut 8.9 X10 3/uL High 2.0-7.7 [facility] Comment on above: Performed By: #### L 400.0001 #### [facility] [address] [place], [address] Basophils/100 WBC (Bld) 0.2 % Normal 0-1 [facility] Comment on above: Performed By: #### L 400.0001 #### [facility] [address] [place], [address] Eosinophils/100 WBC (Bld) 0.9 % Normal 0-5 [facility] Comment on above: Performed By: #### L 400.0001 #### [facility] [address] [place], [address] Erythrocyte distribution width (RBC) [Ratio] 18.4 % High 11.6-14.6 [facility] Comment on above: Performed By: #### L 400.0001 #### [facility] [address] [place], [address] Hematocrit (Bld) [Volume fraction] 25.4 % Low 40-54 [facility] Comment on above: Performed By: #### L 400.0001 #### [facility] [address] [place], [address] Hemoglobin (Bld) [Mass/Vol] 7.7 g/dL Low 13.0-16.5 [facility] Comment on above: Performed By: #### L 400.0001 #### [facility] [address] [place], [address] IG% 0.300 Normal 0.0-0.9 [facility] Comment on above: Result Comment: IG% - Immature Granulocytes (promyelocytes, myelocytes and metamyelocytes) > 1% indicates that a LEFT SHIFT is Present. Performed By: #### L 400.0001 #### [facility] [address] [place], [address] Lymphocytes/100 WBC (Bld) 16.4 % Low 19-41 [facility] Comment on above: Performed By: #### L 400.0001 #### [facility] [address] [place], [address] MCH (RBC) [Entitic mass] 19.7 pg Low 27.0-32.0 [facility] Comment on above: Performed By: #### L 400.0001 #### [facility] [address] [place], [address] MCHC (RBC) [Mass/Vol] 30.3 g/dL Low 32-36 [facility] Comment on above: Performed By: #### L 400.0001 #### [facility] [address] [place], [address] MCV (RBC) [Entitic vol] 65.0 fL Low 80-94 [facility] Comment on above: Performed By: #### L 400.0001 #### [facility] [address] [place], [address] Monocytes/100 WBC (Bld) 6.5 % Normal 0-10 [facility] Comment on above: Performed By: #### L 400.0001 #### [facility] [address] [place], [address] Neutrophils/100 WBC (Bld) 75.7 % High 47-70 [facility] Comment on above: Performed By: #### L 400.0001 #### [facility] [address] [place], [address] Nucleated RBC (Bld) [#/Vol] 0 10*3/uL Normal 0-5 [facility] Comment on above: Performed By: #### L 400.0001 #### [facility] [address] [place], [address] Platelet mean volume (Bld) [Entitic vol] 10.0 fL Normal 6.2-12.0 [facility] Comment on above: Performed By: #### L 400.0001 #### [facility] [address] [place], [address] Platelets (Bld) [#/Vol] 358 10*3/uL Normal 150-450 [facility] Comment on above: Performed By: #### L 400.0001 #### [facility] [address] [place], [address] RBC (Bld) [#/Vol] 3.91 10*6/uL Low 4.6-6.2 [facility] Comment on above: Performed By: #### L 400.0001 #### [facility] [address] [place], [address] RDW SD 43.1 fl Normal 35.1-43.9 [facility] Comment on above: Performed By: #### L 400.0001 #### [facility] [address] [place], [address] WBC (Bld) [#/Vol] 11.8 10*3/uL High 4.4-11.0 [facility] Comment on above: Performed By: #### L 400.0001 #### [facility] [address] [place], [address] Carbon dioxide, total [Moles /volume] in Central venous bloodOrdered By: Anthony Salgado on 05-13-2025 CO2 [Moles/Vol] 22.8 mmol/L 21.0-32.0 [facility] Chloride assayOrdered By: Venessa Salgado on 05-13-2025 Chloride [Moles/Vol] 104 mmol/L 98-108 [facility] Eosinophil percentageOrdered By: Anthony Salgado on 05-13-2025 Eosinophils/100 WBC (Bld) 0.9 % 0-5 [facility] Erythrocyte distribution wid th ratioOrdered By: Anthony Salgado on 05-13-2025 Erythrocyte distribution width (RBC) [Ratio] 18.4 % High 11.6-14.6 [facility] Erythrocyte distribution wid th standard deviationOrdered By: Anthony Salgado on 05-13-2025 Erythrocyte distribution width (RBC) [Ratio] 43.1 fl 35.1-43.9 [facility] Glomerular filtration rate ( GFR) estimation/1.73 sq m using serum, plasma, or whole bOrdered By: Anthony Salgado on 05-13-2025 GFR/1.73 sq M.predicted among non-blacks MDRD (S/P/Bld) [Vol rate/Area] 72 mL/min/{1.73_m2} >60 [facility] Comment on above: mL/min/1.73m2 CKD-EP I Creatinine Equation (2020) [facility] deOrdered By: Anthony Salgado on 05-13-2025 Glucose [Mass/Vol] 325 mg/dL High 74-106 [facility] Comment on above: MANAGEMENT OF PATIEN T CARE PER NURSING PROTOCOL Hematocrit Auto (Bld) [Volum e fraction]Ordered By: Anthony Salgado on 05-13-2025 Hematocrit (Bld) [Volume fraction] 25.4 % Low 40-54 [facility] Hemoglobin measurementOrdere d By: Anthony Salgado on 05-13-2025 Hemoglobin (Bld) [Mass/Vol] 7.7 g/dL Low 13.0-16.5 [facility] Immature granulocytes/100 WB C Auto (Bld)Ordered By: Anthony Salgado on 05-13-2025 Immature granulocytes/100 WBC (Bld) 0.300 % 0.0-0.9 [facility] Comment on above: IG% - Immature Granu locytes (promyelocytes, myelocytes and metamyelocytes) > 1% indicates that a LEFT SHIFT is Present. MCV (mean corpuscular volume ) determinationOrdered By: Anthony Salgado on 05-13-2025 MCV (RBC) [Entitic vol] 65.0 fL Low 80-94 [facility] Mean corpuscular hemoglobin (MCH) determinationOrdered By: Anthony Salgado on 05-13-2025 MCH (RBC) [Entitic mass] 19.7 pg Low 27.0-32.0 [facility] Mean corpuscular hemoglobin concentration (MCHC) determinationOrdered By: Anthony Salgado on 05-13-2025 MCHC (RBC) [Mass/Vol] 30.3 g/dL Low 32-36 [facility] Mean platelet volume determi nationOrdered By: Anthony Salgado on 05-13-2025 Platelet mean volume (Bld) [Entitic vol] 10.0 fL 6.2-12.0 [facility] Monocyte percentageOrdered B y: Anthony Salgado on 05-13-2025 Monocytes/100 WBC (Bld) 6.5 % 0-10 [facility] Neutrophil percentageOrdered By: Anthony Salgado on 05-13-2025 Neutrophils/100 WBC (Bld) 75.7 % High 47-70 [facility] Nucleated red blood cell per centageOrdered By: Anthony Salgado on 05-13-2025 Nucleated RBC/100 WBC (Bld) [Ratio] 0 % 0-5 [facility] Platelet countOrdered By: Venessa Salgado on 05-13-2025 Platelets (Bld) [#/Vol] 358 10*3/uL 150-450 [facility] Potassium measurement (mass/ volume)Ordered By: Anthony Salgado on 05-13-2025 Potassium (Unsp spec) [Mass/Vol] 3.2 mmol/L Low 3.3-5.1 [facility] RBC Auto (Bld) [#/Vol]Ordere d By: Anthony Salgado on 05-13-2025 RBC (Bld) [#/Vol] 3.91 10*6/uL Low 4.6-6.2 [facility] Serum creatinine measurement (mass/volume)Ordered By: Anthony Salgado on 05-13-2025 Creatinine [Mass/Vol] 1.07 mg/dL 0.70-1.20 [facility] Serum glucose measurement (m ass/volume)Ordered By: Anthony Salgado on 05-13-2025 Glucose [Mass/Vol] 207 mg/dL High 70-99 [facility] Serum or plasma calcium ivania urement (mass/volume)Ordered By: Anthony Salgado on 05-13-2025 Calcium [Mass/Vol] 9.7 mg/dL 7.6-11.0 [facility] Serum or plasma urea nitroge n measurement (mass/volume)Ordered By: Anthony Salgado on 05-13-2025 Urea nitrogen [Mass/Vol] 10 mg/dL 4-19 [facility] Sodium levelOrdered By: J Luis Salgado on 05-13-2025 Sodium [Moles/Vol] 137 mmol/L 133-145 [facility] Trough vancomycin levelOrder ed By: Lane Stanley on 05-13-2025 Vancomycin trough [Mass/Vol] 8.6 ug/mL 5.0-15.0 [facility] Comment on above: Recommended goal [...] therapy recommended for serious lifethreatening infections include:- Umvgqmmzgd-Zglsgnfywqax-Ucgpwiqpd (Ventilator/Healtcare Associated)-Sepsis PLEASE CONTACT PHARMACY SERVICES (#9901) FOR INTERPRETATIONOF RESULTS. Vancomycin, Trough Levelon 0 05-13-2025 VANCO, TROUGH 8.6 ug/mL Normal 5.0-15.0 [facility] Comment on above: Order Comment: [...] (Ventilator/Healtcare Associated) -Sepsis PLEASE CONTACT PHARMACY SERVICES (#1208) FOR INTERPRETATION OF RESULTS. Performed By: #### L 400.0001 #### [facility] [address] [place], [address] White blood cell (WBC) count Ordered By: Anthony Salgado on 05-13-2025 WBC (Bld) [#/Vol] 11.8 10*3/uL High 4.4-11.0 [facility] Basic Metabolic Profile (BMP )on 05-12-2025 BUN/CRE 10.8 RATIO Normal 10-20 [facility] Comment on above: Performed By: #### L 100.0100, L500.4050 #### [facility] [address] [place], [address] Calcium [Mass/Vol] 10.3 mg/dL Normal 7.6-11.0 [facility] Comment on above: Performed By: #### L 100.0100, L500.4050 #### [facility] [address] [place], [address] Chloride [Moles/Vol] 103 mmol/L Normal 98-108 [facility] Comment on above: Performed By: #### L 100.0100, L500.4050 #### [facility] [address] [place], [address] CO2 [Moles/Vol] 23.7 mmol/L Normal 21.0-32.0 [facility] Comment on above: Performed By: #### L 100.0100, L500.4050 #### [facility] [address] [place], [address] Creatinine [Mass/Vol] 0.92 mg/dL Normal 0.70-1.20 [facility] Comment on above: Performed By: #### L 100.0100, L500.4050 #### [facility] [address] [place], [address] ECRCL 62.32 ml/min Normal 50-250 [facility] Comment on above: Performed By: #### L 100.0100, L500.4050 #### [facility] [address] [place], [address] GAP 11 Normal 5-15 [facility] Comment on above: Performed By: #### L 100.0100, L500.4050 #### [facility] [address] [place], [address] GFR/1.73 sq M.predicted among non-blacks MDRD (S/P/Bld) [Vol rate/Area] 87 mL/min/{1.73_m2} Normal >60 [facility] Comment on above: Result Comment: mL/m in/1.73m2 CKD-EPI Creatinine Equation (2020) Performed By: #### L 100.0100, L500.4050 #### [facility] [address] [place], [address] Glucose [Mass/Vol] 159 mg/dL High 70-99 [facility] Comment on above: Performed By: #### L 100.0100, L500.4050 #### [facility] [address] [place], [address] Potassium [Moles/Vol] 3.2 mmol/L Low 3.3-5.1 [facility] Comment on above: Performed By: #### L 100.0100, L500.4050 #### [facility] [address] [place], [address] Sodium [Moles/Vol] 138 mmol/L Normal 133-145 [facility] Comment on above: Performed By: #### L 100.0100, L500.4050 #### [facility] [address] [place], [address] Urea nitrogen [Mass/Vol] 10 mg/dL Normal 4-19 [facility] Comment on above: Performed By: #### L 100.0100, L500.4050 #### [facility] [address] [place], [address] Bedside Glucoseon 05-12-2025 FINGERSTICK GLU 330 mg/dL High 74-106 [facility] Comment on above: Result Comment: BELLA GEMENT OF PATIENT CARE PER NURSING PROTOCOL Performed By: #### L 400.0001 #### [facility] [address] [place], [address] FINGERSTICK GLU 278 mg/dL High [facility]106 [facility] Comment on above: Result Comment: BELLA GEMENT OF PATIENT CARE PER NURSING PROTOCOL Performed By: #### L 100.0100, L500.4050 #### [facility] [address] [place], [address] FINGERSTICK GLU 310 mg/dL High 74-106 [facility] Comment on above: Result Comment: BELLA GEMENT OF PATIENT CARE PER NURSING PROTOCOL Performed By: #### L 100.0100, L500.4050 #### [facility] [address] [place], [address] FINGERSTICK GLU 160 mg/dL High -106 [facility] Comment on above: Result Comment: BELLA GEMENT OF PATIENT CARE PER NURSING PROTOCOL Performed By: #### L 501.080 ####[facility] [address] [place], [address] FINGERSTICK GLU 242 mg/dL High [facility]106 [facility] Comment on above: Result Comment: BELLA GEMENT OF PATIENT CARE PER NURSING PROTOCOL Performed By: #### L 100.0100, L500.4050 #### [facility] [address] [place], [address] Bilirubin directOrdered By: Lane Stanley on 05-12-2025 Bilirubin.direct [Mass/Vol] 0.23 mg/dL 0.00-0.30 [facility] Bilirubin, totalOrdered By: Lane Stanley on 05-12-2025 Bilirubin [Mass/Vol] 0.44 mg/dL 0.00-1.30 [facility] Brain/Head W/WO Contraston 0 05-12-2025 Brain/Head W/WO Contrast [facility] Imaging Services [address] [place], [place] [address] Brain/Head W/WO Contrast MR#: [id number] Acct: [id number] Name: ITZEL ALONZO Rep #: [id number] : 1950 M 74 From: Joaquin Kiser PCP: SID Haro Status: ADM IN Study: Brain/Head W/WO Contrast Date of Exam: 5 Exam# [id number] Ordering Dr: Anthony Salgado MD PROCEDURE: BRAIN/HEAD [...] mass. No acute intracranial process. Reading Location: [facility] CC: PLUMBING ENGINEERING DRAFTSPERSON-C Carlene Haji; Dr. Anthony Salgado MD Hogshead Liner: Signed Normal [facility] CBC-Complete Blood Cnt No Di ffon 05-12-2025 Erythrocyte distribution width (RBC) [Ratio] 18.6 % High 11.6-14.6 [facility] Comment on above: Performed By: #### L 100.0100, L500.4050 #### [facility] [address] [place], [address] Hematocrit (Bld) [Volume fraction] 27.8 % Low 40-54 [facility] Comment on above: Performed By: #### L 100.0100, L500.4050 #### [facility] [address] [place], [address] Hemoglobin (Bld) [Mass/Vol] 8.4 g/dL Low 13.0-16.5 [facility] Comment on above: Performed By: #### L 100.0100, L500.4050 #### [facility] [address] [place], [address] MCH (RBC) [Entitic mass] 19.6 pg Low 27.0-32.0 [facility] Comment on above: Performed By: #### L 100.0100, L500.4050 #### [facility] [address] [place], [address] MCHC (RBC) [Mass/Vol] 30.2 g/dL Low 32-36 [facility] Comment on above: Performed By: #### L 100.0100, L500.4050 #### [facility] [address] [place], [address] MCV (RBC) [Entitic vol] 65.0 fL Low 80-94 [facility] Comment on above: Performed By: #### L 100.0100, L500.4050 #### [facility] [address] [place], [address] Platelet mean volume (Bld) [Entitic vol] 9.8 fL Normal 6.2-12.0 [facility] Comment on above: Performed By: #### L 100.0100, L500.4050 #### [facility] [address] [place], [address] Platelets (Bld) [#/Vol] 411 10*3/uL Normal 150-450 [facility] Comment on above: Performed By: #### L 100.0100, L500.4050 #### [facility] [address] [place], [address] RBC (Bld) [#/Vol] 4.28 10*6/uL Low 4.6-6.2 [facility] Comment on above: Performed By: #### L 100.0100, L500.4050 #### [facility] [address] [place], [address] RDW SD 43.0 fl Normal 35.1-43.9 [facility] Comment on above: Performed By: #### L 100.0100, L500.4050 #### [facility] [address] [place], [address] WBC (Bld) [#/Vol] 13.2 10*3/uL High 4.4-11.0 [facility] Comment on above: Performed By: #### L 100.0100, L500.4050 #### [facility] [address] [place], [address] Electrocardiogram reportOrde red By: Kevin Joshi on 05-12-2025 EKG study [facility] Cardiovascular Services [address] [place] [address] 12 Lead EKG 05/11/25 1709 MR#: [id number] Acct: [id number] Name: ITZEL ALONZO Rep #:[id number] : 1950 74 From: Kevin Joshi MD Attending Dr: Dr. Anthony Salgado MD Status: ADM IN Ordering Dr: Monty Clarke MD Date: 05/11 Location: [facility] Sex: M AA Admitted: 05/11/25 Test Reason : GENERAL Blood Pressure : */* mmHG Vent. Rate : 91 BPM Atrial Rate : 91 BPM P-R Int : 150 ms QRS Dur : 90 ms QT Int : 386 ms P-R-T Axes : 47 58 53 degrees QTcB Int : 474 ms Normal sinus rhythm Normal ECG Confirmed by CHELSEA HERBERT, KEVIN ([id number]), mapping editor JOSE NYE ([id number]) on 05/12/2025 8:27:44 AM Referred By: Confirmed By: KEVIN JOSHI MD 05/12/25826 Date _ Kevin Joshi MD CC: PLUMBING ENGINEERING DRAFTSPERSON-C Carlene Haji; Dr. Anthony Salgado MD; Dr. Monty Clarke MD ~ Signed [facility] Other Phone: Laboratory - Chemistry and C hemistry - challengeOrdered By: Lane Stanley on 05-12-2025 AST [Catalytic activity/Vol] 23 U/L <38 [facility] Liver Profileon 05-12-2025 Albumin [Mass/Vol] 3.3 g/dL Low 3.4-4.8 [facility] Comment on above: Performed By: #### L 100.0100, L500.4050 #### [facility] [address] [place], [place], [address] ALK PHOS 131 U/L High 40-129 [facility] Comment on above: Performed By: #### L 100.0100, L500.4050 #### [facility] [address] [place], [place], [address] ALT [Catalytic activity/Vol] 11 U/L Normal <=46 [facility] Comment on above: Performed By: #### L 100.0100, L500.4050 #### [facility] [address] [place], [address] AST [Catalytic activity/Vol] 23 U/L Normal <=37 [facility] Comment on above: Performed By: #### L 100.0100, L500.4050 #### [facility] [address] [place], [address] Bilirubin [Mass/Vol] 0.44 mg/dL Normal 0.00-1.30 [facility] Comment on above: Performed By: #### L 100.0100, L500.4050 #### [facility] [address] [place], [address] Bilirubin.direct [Mass/Vol] 0.23 mg/dL Normal 0.00-0.30 [facility] Comment on above: Performed By: #### L 100.0100, L500.4050 #### [facility] [address] [place], [address] Globulin (S) [Mass/Vol] 3.8 g/dL Normal 2.2-4.2 [facility] Comment on above: Performed By: #### L 100.0100, L500.4050 #### [facility] [address] [place], [address] T PROT 7.1 g/dL Normal 5.9-8.4 [facility] Comment on above: Performed By: #### L 100.0100, L500.4050 #### [facility] [address] [place], [address] Serum globulin measurementOr dered By: Lane Stanley on 05-12-2025 Globulin (S) [Mass/Vol] 3.8 g/dL 2.2-4.2 [facility] Serum or plasma alanine stahl otransferase (ALT) measurementOrdered By: Lane Stanley on 05-12-2025 ALT [Catalytic activity/Vol] 11 U/L <47 [facility] Serum or plasma albumin ivania urement (mass/volume)Ordered By: Lane Stanley on 05-12-2025 Albumin [Mass/Vol] 3.3 g/dL Low 3.4-4.8 [facility] Serum or plasma alkaline brittany sphatase measurementOrdered By: Lane Stanley on 05-12-2025 ALP [Catalytic activity/Vol] 131 U/L High 40-129 [facility] Total proteinOrdered By: Eileen Stanley on 05-12-2025 Protein [Mass/Vol] 7.1 g/dL 5.9-8.4 [facility] 12 Lead EKGon 05-11-2025 12 Lead EKG [facility] Cardiovascular Services [address] [place] [address] 12 Lead EKG 05/11/25 1709 MR#: [id number] Acct: [id number] Name: ITZEL ALONZO Rep #: [id number] : 1950 74 From: Kevin Joshi MD Attending Dr: Dr. Anthony Salgado MD Status: ADM IN Ordering Dr: Monty Clarke MD Date: 05/11/25 Location: [facility] Sex: M AA Admitted: 05/11/25 Test Reason : GENERAL Blood Pressure : */* mmHG Vent. Rate : 91 BPM Atrial Rate : 91 BPM P-R Int : 150 ms QRS Dur : 90 ms QT Int : 386 ms P-R-T Axes : 47 58 53 degrees QTcB Int : 474 ms Normal sinus rhythm Normal ECG Confirmed by KEVIN JOSHI MD ([id number]), mapping editor JOSE NYE ([id number]) on 05/12/2025 8:27:44 AM Referred By: Confirmed By: KEVIN JOSHI MD 05/12/25 0827 Date Kevin Joshi MD CC: SID Haji; Dr. Anthony Salgado MD; Dr. Monty Clarke MD Signed Normal [facility] Absolute lymphocyte countOrd ered By: Monty Clarke on 05-11-2025 Lymphocytes Auto (Unsp spec) [#/Vol] 2.13 10*3/uL 0.83-4.51 [facility] Absolute neutrophil countOrd ered By: Montymaria e Reedo on 05-11-2025 Neutrophils (Bld) [#/Vol] 8.6 10*3/uL High 2.0-7.7 [facility] Anion gap in Serum or Plasma Ordered By: Monty Clarke on 05-11-2025 Anion gap [Moles/Vol] 11 mmol/L 5-15 [facility] Automated lymphocyte count a s percentage of total leukocytesOrdered By: Monty Clarke on 05-11-2025 Lymphocytes/100 WBC Auto (Unsp spec) 18.4 % Low 19-41 [facility] BUN/creatinine ratioOrdered By: Monty Clarke on 05-11-2025 Urea nitrogen/Creatinine [Mass ratio] 11.3 mg/mg 10-20 [facility] Basophil percentageOrdered B y: Monty Clarke on 05-11-2025 Basophils/100 WBC (Bld) 0.3 % 0-1 [facility] Bilirubin, totalOrdered By: Montymaria e Reedo on 05-11-2025 Bilirubin [Mass/Vol] 0.41 mg/dL 0.00-1.30 [facility] CBC W/Diff, Automatedon 04-25 Absolute Lymph 2.13 X10 3/uL Normal 0.83-4.51 [facility] Comment on above: Performed By: #### L 100.0100, L503.6005, L500.4050 ####[facility] [address] [place], [address] Absolute Neut 8.6 X10 3/uL High 2.0-7.7 [facility] Comment on above: Performed By: #### L 100.0100, L503.6005, L500.4050 ####[facility] [address] [place], [address] Basophils/100 WBC (Bld) 0.3 % Normal 0-1 [facility] Comment on above: Performed By: #### L 100.0100, L503.6005, L500.4050 ####[facility] [address] [place], [address] Eosinophils/100 WBC (Bld) 0.8 % Normal 0-5 [facility] Comment on above: Performed By: #### L 100.0100, L503.6005, L500.4050 ####[facility] [address] [place], [address] Erythrocyte distribution width (RBC) [Ratio] 19.0 % High 11.6-14.6 [facility] Comment on above: Performed By: #### L 100.0100, L503.6005, L500.4050 ####[facility] [address] [place], [address] Hematocrit (Bld) [Volume fraction] 28.9 % Low 40-54 [facility] Comment on above: Performed By: #### L 100.0100, L503.6005, L500.4050 ####[facility] [address] [place], [address] Hemoglobin (Bld) [Mass/Vol] 8.7 g/dL Low 13.0-16.5 [facility] Comment on above: Performed By: #### L 100.0100, L503.6005, L500.4050 ####[facility] [address] [place], [address] IG% 0.400 Normal 0.0-0.9 [facility] Comment on above: Result Comment: IG% - Immature Granulocytes (promyelocytes, myelocytes and metamyelocytes) > 1% indicates that a LEFT SHIFT is Present. Performed By: #### L 100.0100, L503.6005, L500.4050 ####[facility] [address] [place], [address] Lymphocytes/100 WBC (Bld) 18.4 % Low 19-41 [facility] Comment on above: Performed By: #### L 100.0100, L503.6005, L500.4050 ####[facility] [address] [place], [address] MCH (RBC) [Entitic mass] 20.0 pg Low 27.0-32.0 [facility] Comment on above: Performed By: #### L 100.0100, L503.6005, L500.4050 ####[facility] [address] [place], [address] MCHC (RBC) [Mass/Vol] 30.1 g/dL Low 32-36 [facility] Comment on above: Performed By: #### L 100.0100, L503.6005, L500.4050 ####[facility] [address] [place], [address] MCV (RBC) [Entitic vol] 66.4 fL Low 80-94 [facility] Comment on above: Performed By: #### L 100.0100, L503.6005, L500.4050 ####[facility] [address] [place], [address] Monocytes/100 WBC (Bld) 5.8 % Normal 0-10 [facility] Comment on above: Performed By: #### L 100.0100, L503.6005, L500.4050 ####[facility] [address] [place], [address] Neutrophils/100 WBC (Bld) 74.3 % High 47-70 [facility] Comment on above: Performed By: #### L 100.0100, L503.6005, L500.4050 ####[facility] [address] [place], [address] Nucleated RBC (Bld) [#/Vol] 0 10*3/uL Normal 0-5 [facility] Comment on above: Performed By: #### L 100.0100, L503.6005, L500.4050 ####[facility] [address] [place], [address] Platelet mean volume (Bld) [Entitic vol] 9.5 fL Normal 6.2-12.0 [facility] Comment on above: Performed By: #### L 100.0100, L503.6005, L500.4050 ####[facility] [address] [place], [address] Platelets (Bld) [#/Vol] 404 10*3/uL Normal 150-450 [facility] Comment on above: Performed By: #### L 100.0100, L503.6005, L500.4050 ####[facility] [address] [place], [address] RBC (Bld) [#/Vol] 4.35 10*6/uL Low 4.6-6.2 [facility] Comment on above: Performed By: #### L 100.0100, L503.6005, L500.4050 ####[facility] [address] [place], [address] RDW SD 44.7 fl High 35.1-43.9 [facility] Comment on above: Performed By: #### L 100.0100, L503.6005, L500.4050 ####[facility] [address] [place], [address] WBC (Bld) [#/Vol] 11.6 10*3/uL High 4.4-11.0 [facility] Comment on above: Performed By: #### L 100.0100, L503.6005, L500.4050 ####[facility] [address] [place], [address] Carbon dioxide, total [Moles /volume] in Central venous bloodOrdered By: Monty Clarke on 05-11-2025 CO2 [Moles/Vol] 26.3 mmol/L 21.0-32.0 [facility] Chest PA and Lateralon 05-11 Chest PA and Lateral [facility] Imaging Services [address] [place], [place] [address] Chest PA and Lateral MR#: [id number] Acct: [id number] Name: ITZEL ALONZO Rep #: [id number] : 1950 M 74 From: Jamie Suero DO PCP: Carlene Haji, PLUMBING ENGINEERING DRAFTSPERSON-C Status: REG ER Study: Chest PA and Lateral Date of Exam: 05/11/25 Exam# [id number] Ordering Dr: Monty Clarke MD PROCEDURE: CHEST [...] end-stage honeycomb fibrosis. Reading Location: [facility]- CC: PLUMBING ENGINEERING DRAFTSPERSON-C Carlene Haji; Dr. Monty Clarke MD Hogshead Liner: Signed Normal [facility] Chloride assayOrdered By: Karin Clarke on 05-11-2025 Chloride [Moles/Vol] 99 mmol/L 98-108 [facility] Comprehensive Metabolic Prof ilon 05-11-2025 Albumin [Mass/Vol] 3.3 g/dL Low 3.4-4.8 [facility] Comment on above: Performed By: #### L 100.0100, L503.6005, L500.4050 ####[facility] [address] [place] [place], [address] Albumin/Globulin [Mass ratio] 0.8 {ratio} Low 0.9-2.4 [facility] Comment on above: Performed By: #### L 100.0100, L503.6005, L500.4050 ####[facility] [address] [place], [address] ALK PHOS 128 U/L Normal 40-129 [facility] Comment on above: Performed By: #### L 100.0100, L503.6005, L500.4050 ####[facility] [address] [place], [address] ALT [Catalytic activity/Vol] 12 U/L Normal <=46 [facility] Comment on above: Performed By: #### L 100.0100, L503.6005, L500.4050 ####[facility] [address] [place], [address] AST [Catalytic activity/Vol] 23 U/L Normal <=37 [facility] Comment on above: Performed By: #### L 100.0100, L503.6005, L500.4050 ####[facility] [address] [place], [address] Bilirubin [Mass/Vol] 0.41 mg/dL Normal 0.00-1.30 [facility] Comment on above: Performed By: #### L 100.0100, L503.6005, L500.4050 ####[facility] [address] [place], [address] BUN/CRE 11.3 RATIO Normal 10-20 [facility] Comment on above: Performed By: #### L 100.0100, L503.6005, L500.4050 ####[facility] [address] [place], [address] Calcium [Mass/Vol] 11.2 mg/dL High 7.6-11.0 [facility] Comment on above: Performed By: #### L 100.0100, L503.6005, L500.4050 ####[facility] [address] [place], [address] Chloride [Moles/Vol] 99 mmol/L Normal 98-108 [facility] Comment on above: Performed By: #### L 100.0100, L503.6005, L500.4050 ####[facility] [address] [place], [address] CO2 [Moles/Vol] 26.3 mmol/L Normal 21.0-32.0 [facility] Comment on above: Performed By: #### L 100.0100, L503.6005, L500.4050 ####[facility] [address] [place], [address] Creatinine [Mass/Vol] 1.20 mg/dL Normal 0.70-1.20 [facility] Comment on above: Performed By: #### L 100.0100, L503.6005, L500.4050 ####[facility] [address] [place], [address] ECRCL 49.04 ml/min Low 50-250 [facility] Comment on above: Performed By: #### L 100.0100, L503.6005, L500.4050 ####[facility] [address] [place], [address] GAP 11 Normal 5-15 [facility] Comment on above: Performed By: #### L 100.0100, L503.6005, L500.4050 ####[facility] [address] [place], [address] GFR/1.73 sq M.predicted among non-blacks MDRD (S/P/Bld) [Vol rate/Area] 63 mL/min/{1.73_m2} Normal >60 [facility] Comment on above: Result Comment: mL/m in/1.73m2 CKD-EPI Creatinine Equation (2020) Performed By: #### L 100.0100, L503.6005, L500.4050 ####[facility] [address] [place], [address] Globulin (S) [Mass/Vol] 4.2 g/dL Normal 2.2-4.2 [facility] Comment on above: Performed By: #### L 100.0100, L503.6005, L500.4050 ####[facility] [address] [place], [address] Glucose [Mass/Vol] 244 mg/dL High 70-99 [facility] Comment on above: Performed By: #### L 100.0100, L503.6005, L500.4050 ####[facility] [address] [place], [address] Potassium [Moles/Vol] 3.5 mmol/L Normal 3.3-5.1 [facility] Comment on above: Performed By: #### L 100.0100, L503.6005, L500.4050 ####[facility] [address] [place], [address] Sodium [Moles/Vol] 136 mmol/L Normal 133-145 [facility] Comment on above: Performed By: #### L 100.0100, L503.6005, L500.4050 ####[facility] [facility] [address] [place], [address] T PROT 7.4 g/dL Normal 5.9-8.4 [facility] Comment on above: Performed By: #### L 100.0100, L503.6005, L500.4050 ####[facility] [address] [place], [address] Urea nitrogen [Mass/Vol] 14 mg/dL Normal 4-19 [facility] Comment on above: Performed By: #### L 100.0100, L503.6005, L500.4050 ####[facility] [address] [place], [address] Emergency Department Summary on 05-11-2025 Emergency Department Summary [facility] Medical Records Department [address] [place] [address] Emergency Department Summary 05/11/25 MR#: [id number] Acct: [id number] Name: ITZEL ALONZO Rep #: [id number] : 1950 74 From: Monty Clarke MD PCP: SID Haro Status:ADM IN [facility] Monty Clarke MD on 05/11/25 at 2107 EKG was obtained 1709 interpreted by la at 1711. The EKG is normal. Rate is 91. CT interval, QRS duration, QT duration and axis are all normal. 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 He [...] similar symptoms: No Recent Illness/Hospitalizat ion: Yes [facility] Medical History (Updated 05/11/25 @ 18:41 [...] smoker tobacco (more content not included)... Normal [facility] Eosinophil percentageOrdered By: Monty Clarke on 05-11-2025 Eosinophils/100 WBC (Bld) 0.8 % 0-5 [facility] Erythrocyte distribution wid th ratioOrdered By: Monty Clarke on 05-11-2025 Erythrocyte distribution width (RBC) [Ratio] 19.0 % High 11.6-14.6 [facility] Erythrocyte distribution wid th standard deviationOrdered By: Monty Clarke on 05-11-2025 Erythrocyte distribution width (RBC) [Ratio] 44.7 fl High 35.1-43.9 [facility] Glomerular filtration rate ( GFR) estimation/1.73 sq m using serum, plasma, or whole bOrdered By: Monty Clarke on 05-11-2025 GFR/1.73 sq M.predicted among non-blacks MDRD (S/P/Bld) [Vol rate/Area] 63 mL/min/{1.73_m2} >60 [facility] Comment on above: mL/min/1.73m2 CKD-EP I Creatinine Equation (2020) H AND P Exam - Hospitaliston 05-11-2025 H&P Exam - Hospitalist [facility] Medical Records Department [address] [place] [address] H P Exam - Hospitalist 05/11/251918 MR#: [id number] Acct: [id number] Name: ITZEL ALONZO Rep #: [id number] : 1950 74 From: Lane Lizeth DO PCP: Carlene Haji, PLUMBING ENGINEERING DRAFTSPERSONNissa Status:ADM IN [facility] HPI - General General Date of Admission: 05/11/25 Date of Service: 05/11/25 Chief Complaint: Worsening fatigue, weakness and confusion HPI Narrative ITZEL ALONZO, is a 74 M who presented to [facility] ED on 05/11/2025 with worsening fatigue, weakness and confusion. Patient has been seen in our ED recently but he receives his care through the [facility]. He was diagnosed with right-sided lung cancer about 1 year ago. It appears this diagnosis was confirmed on bronchial biopsy. Patient declined active treatment at that time and preferred close monitoring. However, patient has issues with transportation and has had difficulty getting to his appointments with oncology at the [facility]. He lives at home with his significant [...] phone with the transfer nurse with the [facility] liliana goodman. Nurse noted that transfer could be initiated there but as the admitting physician was gone for the day, transfer will not happen until tomorrow at the earliest. [facility] Medical History (Updated 05/12/25 @ 00:00 by [...] household members (more content not included)... Normal [facility] Hematocrit Auto (Bld) [Volum e fraction]Ordered By: Monty Clarke on 05-11-2025 Hematocrit (Bld) [Volume fraction] 28.9 % Low 40-54 [facility] Hemoglobin measurementOrdere d By: Montymaria e Clarke on 05-11-2025 Hemoglobin (Bld) [Mass/Vol] 8.7 g/dL Low 13.0-16.5 [facility] Immature granulocytes/100 WB C Auto (Bld)Ordered By: Montymaria e Clarke on 05-11-2025 Immature granulocytes/100 WBC (Bld) 0.400 % 0.0-0.9 [facility] Comment on above: IG% - Immature Granu locytes (promyelocytes, myelocytes and metamyelocytes) > 1% indicates that a LEFT SHIFT is Present. L499.0042on 05-11-2025 Trop T High Sen 37 ng/L High <=22 [facility] Comment on above: Performed By: #### L 400.0001 #### [facility] Laboratory [address] [facility] [address] L499.0043on 05-11-2025 Trop T High Sen 39 ng/L High <=22 [facility] Comment on above: Performed By: #### L 100.0100, L500.4050 #### [facility] Laboratory [address] [facility] [address] L501.4021on 05-11-2025 Trop T High Sen 39 ng/L High <=22 [facility] Comment on above: Performed By: #### L 501.4021 ####[facility] [address] [facility] [id number] Laboratory - Chemistry and C hemistry - challengeOrdered By: Monty Clarke on 05-11-2025 AST [Catalytic activity/Vol] 23 U/L <38 [facility] Lactic Acidon 05-11-2025 Lactate [Moles/Vol] 1.8 mmol/L Normal 0.0-2.0 [facility] Comment on above: Order Comment: Y Performed By: #### L 100.0100, L503.6005, L500.4050 ####[facility] [address] [place], [place], [id number] Lactic acid measurementOrder ed By: Monty Clarke on 05-11-2025 Lactate [Moles/Vol] 1.8 mmol/L 0.0-2.0 [facility] MCV (mean corpuscular volume ) determinationOrdered By: Monty Clarke on 05-11-2025 MCV (RBC) [Entitic vol] 66.4 fL Low 80-94 [facility] Mean corpuscular hemoglobin (MCH) determinationOrdered By: Monty Clarke on 05-11-2025 MCH (RBC) [Entitic mass] 20.0 pg Low 27.0-32.0 [facility] Mean corpuscular hemoglobin concentration (MCHC) determinationOrdered By: Monty Clarke on 05-11-2025 MCHC (RBC) [Mass/Vol] 30.1 g/dL Low 32-36 [facility] Mean platelet volume determi nationOrdered By: Monty Clarke on 05-11-2025 Platelet mean volume (Bld) [Entitic vol] 9.5 fL 6.2-12.0 [facility] Monocyte percentageOrdered B y: Monty Clarke on 05-11-2025 Monocytes/100 WBC (Bld) 5.8 % 0-10 [facility] Neutrophil percentageOrdered By: Monty Clarek on 05-11-2025 Neutrophils/100 WBC (Bld) 74.3 % High 47-70 [facility] Nucleated red blood cell per centageOrdered By: Monty Clarke on 05-11-2025 Nucleated RBC/100 WBC (Bld) [Ratio] 0 % 0-5 [facility] Platelet countOrdered By: Karin Clarke on 05-11-2025 Platelets (Bld) [#/Vol] 404 10*3/uL 150-450 [facility] Potassium measurement (mass/ volume)Ordered By: Monty Clarke on 05-11-2025 Potassium (Unsp spec) [Mass/Vol] 3.5 mmol/L 3.3-5.1 [facility] RBC Auto (Bld) [#/Vol]Ordere d By: Monty Clarke on 05-11-2025 RBC (Bld) [#/Vol] 4.35 10*6/uL Low 4.6-6.2 [facility] Serum creatinine measurement (mass/volume)Ordered By: Monty Clarke on 05-11-2025 Creatinine [Mass/Vol] 1.20 mg/dL 0.70-1.20 [facility] Serum globulin measurementOr dered By: Monty Clarke on 05-11-2025 Globulin (S) [Mass/Vol] 4.2 g/dL 2.2-4.2 [facility] Serum glucose measurement (m ass/volume)Ordered By: Monty Clarke on 05-11-2025 Glucose [Mass/Vol] 244 mg/dL High 70-99 [facility] Serum or plasma alanine stahl otransferase (ALT) measurementOrdered By: Monty Clarke on 05-11-2025 ALT [Catalytic activity/Vol] 12 U/L <47 [facility] Serum or plasma albumin ivania urement (mass/volume)Ordered By: Monty Clarke on 05-11-2025 Albumin [Mass/Vol] 3.3 g/dL Low 3.4-4.8 [facility] Serum or plasma albumin/glob ulin mass ratioOrdered By: Montymaria e Clarke 05-11-2025 Albumin/Globulin [Mass ratio] 0.8 {ratio} Low 0.9-2.4 [facility] Serum or plasma alkaline brittany sphatase measurementOrdered By: Montymaria e Clarke 05-11-2025 ALP [Catalytic activity/Vol] 128 U/L 40-129 [facility] Serum or plasma calcium ivania urement (mass/volume)Ordered By: Monty Clarke on 05-11-2025 Calcium [Mass/Vol] 11.2 mg/dL High 7.6-11.0 [facility] Serum or plasma urea nitroge n measurement (mass/volume)Ordered By: Monty Clarke on 05-11-2025 Urea nitrogen [Mass/Vol] 14 mg/dL 4-19 [facility] Sodium levelOrdered By: Monty Clarke on 05-11-2025 Sodium [Moles/Vol] 136 mmol/L 133-145 [facility] Stool Occult Blood iFOBon STOB Negative Normal [facility] Comment on above: Performed By: #### M 100.7900 ####[facility] [address] [place], [place], [id number] Stool gastrointestinal hemog lobin detection by immunologic methodOrdered By: Monty Clarke on 05-11-2025 Lower GI hemoglobin IA Ql (Stl) [facility] Total proteinOrdered By: Monty Clarke on 05-11-2025 Protein [Mass/Vol] 7.4 g/dL 5.9-8.4 [facility] Troponin T.cardiac [Mass/vol ume] in Serum or Plasma by High sensitivity methodOrdered By: Monty Clarke on 05-11-2025 Troponin T.cardiac High sensitivity method [Mass/Vol] 39 ng/L High <22 [facility] Troponin T.cardiac High sensitivity method [Mass/Vol] 37 ng/L High <22 [facility] Troponin T.cardiac High sensitivity method [Mass/Vol] 39 ng/L High <22 [facility] Comment on above: Delta: 26 on 5 White blood cell (WBC) count Ordered By: Monty Clarke on 05-11-2025 WBC (Bld) [#/Vol] 11.6 10*3/uL High 4.4-11.0 [facility] 12 Lead EKGon 05-04-2025 12 Lead EKG [facility] Cardiovascular Services [address] [place] [address] 12 Lead EKG 05/04/25 1129 MR#: [id number] Acct: [id number] Name: ITZEL ALONZO Rep #: [id number] : 1950 74 From: Adams Connell MD [...] rhythm Normal ECG Confirmed by Adams Connell ([id number]), mapping editor KATIE ABRAHAM ([id number]) on 05/06/2025 6:12:43 AM Referred By: Confirmed By: Adams Connell 05/06/25611 Adams Connell MD CC: SID Haji; Dr. Ike Dawson DO Signed Normal [facility] Absolute lymphocyte countOrd ered By: Ike Dawson on 05-04-2025 Lymphocytes Auto (Unsp spec) [#/Vol] 3.37 10*3/uL 0.83-4.51 [facility] Absolute neutrophil countOrd ered By: Ike Dawson on 05-04-2025 Neutrophils (Bld) [#/Vol] 7.0 10*3/uL 2.0-7.7 [facility] Activated partial thrombopla stin time (aPTT) in platelet poor plasma by coagulation aOrdered By: Ike Dawson on 05-04-2025 aPTT Coag (PPP) [Time] 31.9 s 24.1-36.2 [facility] Anion gap in Serum or Plasma Ordered By: Ike Dawson on 05-04-2025 Anion gap [Moles/Vol] 11 mmol/L 5-15 [facility] Automated lymphocyte count a s percentage of total leukocytesOrdered By: Ike Dawson on 05-04-2025 Lymphocytes/100 WBC Auto (Unsp spec) 29.4 % 19-41 [facility] BUN/creatinine ratioOrdered By: Ike Dawson on 05-04-2025 Urea nitrogen/Creatinine [Mass ratio] 16.9 mg/mg 10-20 [facility] Basic Metabolic Profile (BMP )on 05-04-2025 BUN/CRE 16.9 RATIO Normal - [facility] Comment on above: Performed By: #### L 100.0100, L500.4050 #### [facility] Laboratory [address] [place], [address] ECRCL 50.60 ml/min Normal 50-250 [facility] Comment on above: Performed By: #### L 100.0100, L500.4050 #### [facility] Laboratory [address] [place], [address] GAP 11 Normal 5-15 [facility] Comment on above: Performed By: #### L 100.0100, L500.4050 #### [facility] Laboratory [address] [place], [address] Potassium [Moles/Vol] 4.2 mmol/L Normal 3.3-5.1 [facility] Comment on above: Performed By: #### L 100.0100, L500.4050 #### [facility] Laboratory [address] [place], [address] Basophil percentageOrdered B y: Ike Eunice on 05-04-2025 Basophils/100 WBC (Bld) 0.3 % 0-1 [facility] Blood polychromasia detectio n by light microscopyOrdered By: Ike Le on 05-04-2025 Polychromasia LM Ql (Bld) 1+ [facility] Brain/Head without Contrasto n 05-04-2025 Brain/Head without Contrast [facility] Imaging Services [address] [place] [address] Brain/Head without Contrast MR#: [id number] Acct: [id number] Name: ITZEL ALONZO Rep #: [id number] : 1950 M 74 From: Uche Kiser PCP: SID Haro Status: REG ER Study: Brain/Head without Contrast Date of Exam: 04/25 Exam# [id number] Ordering Dr: Ike Dawson DO PROCEDURE: BRAIN/HEAD [...] or other acute process noted. Reading Location: [address] CC: SID Haji; Dr. Ike Dawson DO Hogshead Liner: Signed Normal [facility] CBC W/Diff, AutomatedOrdered By: Ike Dawson on 05-04-2025 Anisocytosis Ql (Bld) 1+ Normal [facility] Comment on above: Performed By: #### L 100.0100, L500.4050 #### [facility] Laboratory [address] [place], [place], [id number] CBC W/Diff, Automatedon 04-25 PLT EST A Normal ADEQ [facility] Comment on above: Performed By: #### L 100.0100, L500.4050 #### [facility] Laboratory [address] [place], [place], [address] POLYCHROMASIA 1+ Normal [facility] Comment on above: Performed By: #### L 100.0100, L500.4050 #### [facility] Laboratory [address] [place], [address] Carbon dioxide, total [Moles /volume] in Central venous bloodOrdered By: Ike Dawson on 05-04-2025 CO2 [Moles/Vol] 27.6 mmol/L Normal 21.0-32.0 [facility] Comment on above: Performed By: #### L 100.0100, L500.4050 #### [facility] Laboratory [address] [place], [address] Chest without Contraston Chest without Contrast [facility] Imaging Services [address] [place], [place] [address] Chest without Contrast MR#: [id number] Acct: [id number] Name: ITZEL ALONZO Rep #: [id number] : 1950 M 74 From: Lion torres MD PCP: Carlene 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 Reading Location: [facility] CC: PLUMBING ENGINEERING DRAFTSPERSON-C Carlene Haji; Dr. Ike Dawson DO Hogshead Liner: Signed Normal [facility] Chloride assayOrdered By: Jacinto Dawson on 05-04-2025 Chloride [Moles/Vol] 97 mmol/L Low 98-108 [facility] Comment on above: Performed By: #### L 100.0100, L500.4050 #### [facility] Laboratory [address] [facility] [place], [address] Emergency Department Summary on 05-04-2025 Emergency Department Summary [facility] Medical Records Department [address] [place] [address] Emergency Department Summary 05/04/25 MR#: [id number] Acct: [id number] Name: ITZEL ALONZO Rep #: [id number] : 1950 74 From: Ike Nuñez PCP: [...] Been [facility] intermittently [facility] yesterday [facility] Medical History Kidney stones Neuropathy PTSD (post-traumatic [...] well no (more content not included)... Normal [facility] Eosinophil percentageOrdered By: Ike Dawson on 05-04-2025 Eosinophils/100 WBC (Bld) 1.5 % 0-5 [facility] Erythrocyte distribution wid th ratioOrdered By: Ike Dawson on 05-04-2025 Erythrocyte distribution width (RBC) [Ratio] 20.1 % High 11.6-14.6 [facility] Erythrocyte distribution wid th standard deviationOrdered By: Ike Dawson on 05-04-2025 Erythrocyte distribution width (RBC) [Ratio] 45.7 fl High 35.1-43.9 [facility] Glomerular filtration rate ( GFR) estimation/1.73 sq m using serum, plasma, or whole bOrdered By: Ike Dawson on 05-04-2025 GFR/1.73 sq M.predicted among non-blacks MDRD (S/P/Bld) [Vol rate/Area] 67 mL/min/{1.73_m2} Normal >60 [facility] Comment on above: mL/min/1.73m2 CKD-EP I Creatinine Equation (2020) Result Comment: mL/m in/1.73m2 CKD-EPI Creatinine Equation (2020) Performed By: #### L 100.0100, L500.4050 #### [facility] Laboratory [address] [place], [address] Hematocrit Auto (Bld) [Volum e fraction]Ordered By: Ike Dawson on 05-04-2025 Hematocrit (Bld) [Volume fraction] 32.4 % Low 40-54 [facility] Hemoglobin measurementOrdere d By: Ike Dawson on 05-04-2025 Hemoglobin (Bld) [Mass/Vol] 9.8 g/dL Low 13.0-16.5 [facility] Immature granulocytes/100 WB C Auto (Bld)Ordered By: Ike Dawson on 05-04-2025 Immature granulocytes/100 WBC (Bld) 0.500 % 0.0-0.9 [facility] Comment on above: IG% - Immature Granu locytes (promyelocytes, myelocytes and metamyelocytes) > 1% indicates that a LEFT SHIFT is Present. International normalized rat io (INR) calculationOrdered By: Ike Dawson on 05-04-2025 INR Coag (Bld) [Relative time] 1.1 {INR} [facility] MCV (mean corpuscular volume ) determinationOrdered By: Ike Dawson on 05-04-2025 MCV (RBC) [Entitic vol] 65.9 fL Low 80-94 [facility] Mean corpuscular hemoglobin (MCH) determinationOrdered By: Ike Dawson 05-04-2025 MCH (RBC) [Entitic mass] 19.9 pg Low 27.0-32.0 [facility] Mean corpuscular hemoglobin concentration (MCHC) determinationOrdered By: Ike Dawson on 05-04-2025 MCHC (RBC) [Mass/Vol] 30.2 g/dL Low 32-36 [facility] Mean platelet volume determi nationOrdered By: Ike Dawson on 05-04-2025 Platelet mean volume (Bld) [Entitic vol] 9.9 fL 6.2-12.0 [facility] Monocyte percentageOrdered B y: Ike Dawson on 05-04-2025 Monocytes/100 WBC (Bld) 6.9 % 0-10 [facility] Neutrophil percentageOrdered By: Ike Dawson on 05-04-2025 Neutrophils/100 WBC (Bld) 61.4 % 47-70 [facility] Nucleated red blood cell per centageOrdered By: Ike Dawson on 05-04-2025 Nucleated RBC/100 WBC (Bld) [Ratio] 0 % 0-5 [facility] Partial Thromboplast Timeon 05-04-2025 aPTT Coag (Bld) [Time] 31.9 s Normal 24.1-36.2 [facility] Comment on above: Performed By: #### L 100.0100, L500.4050 #### [facility] Laboratory [address] [place], [place], [address] Platelet countOrdered By: Jacinto Dawson on 05-04-2025 Platelets (Bld) [#/Vol] 412 10*3/uL 150-450 [facility] Platelet estimateOrdered By: Ike Dawson on 05-04-2025 Platelets LM Ql (Bld) A ADEQ [facility] Potassium measurement (mass/ volume)Ordered By: Ike Dawson on 05-04-2025 Potassium (Unsp spec) [Mass/Vol] 4.2 mmol/L 3.3-5.1 [facility] Prothrombin Time w/INRon INR Coag (PPP) [Relative time] 1.1 {INR} Normal [facility] Comment on above: Performed By: #### L 100.0100, L500.4050 #### [facility] Laboratory [address] [place], [address] Prothrombin timeOrdered By: Ike Dawson on 05-04-2025 PT Coag (PPP) [Time] 14.8 s Normal 11.7-14.9 [facility] Comment on above: Performed By: #### L 100.0100, L500.4050 #### [facility] Laboratory [address] [place], [address] RBC Auto (Bld) [#/Vol]Ordere d By: Ike Dawson on 05-04-2025 RBC (Bld) [#/Vol] 4.92 10*6/uL 4.6-6.2 [facility] Serum creatinine measurement (mass/volume)Ordered By: Ike Dawson on 05-04-2025 Creatinine [Mass/Vol] 1.14 mg/dL Normal 0.70-1.20 [facility] Comment on above: Performed By: #### L 100.0100, L500.4050 #### [facility] Laboratory [address] [place], [address] Serum glucose measurement (m ass/volume)Ordered By: Ike Dawson on 05-04-2025 Glucose [Mass/Vol] 229 mg/dL High 70-99 [facility] Comment on above: Performed By: #### L 100.0100, L500.4050 #### [facility] Laboratory [address] [place], [address] Serum or plasma calcium ivania urement (mass/volume)Ordered By: Ike Dawson on 05-04-2025 Calcium [Mass/Vol] 12.2 mg/dL High 7.6-11.0 [facility] Comment on above: Performed By: #### L 100.0100, L500.4050 #### [facility] Laboratory [address] [place], [address] Serum or plasma urea nitroge n measurement (mass/volume)Ordered By: Ike Dawson on 05-04-2025 Urea nitrogen [Mass/Vol] 19 mg/dL Normal 4-19 [facility] Comment on above: Performed By: #### L 100.0100, L500.4050 #### [facility] Laboratory [address] [place], [address] Shoulder min 2 Viewson 05-04 Shoulder min 2 Views [facility] Imaging Services [address] [place] [address] Shoulder min 2 Views MR#: [id number] Acct: [id number] Name: ITZEL ALONZO Rep #: [id number] : 1950 M 74 From: Lion torres MD PCP: SID Haro Status: REG ER Study: Shoulder min 2 Views Date of Exam: 05/04/25 Exam# [id number] Ordering Dr: Ike Dawson DO PROCEDURE: SHOULDER [...] with a CT scan recommended. Reading Location: [place] [address] CC: PLUMBING ENGINEERING DRAFTSPERSONNissa Haji; Dr. Ike Dawson DO Hogshead Liner: Signed Normal [facility] Sodium levelOrdered By: Ike Dawson on 05-04-2025 Sodium [Moles/Vol] 136 mmol/L Normal 133-145 [facility] Comment on above: Performed By: #### L 100.0100, L500.4050 #### [facility] Laboratory [address] [place], [address] Spine Cervical without Contr ason 05-04-2025 Spine Cervical without Contras [facility] Imaging Services [address] [place] [address] Spine Cervical without Contras MR#: [id number] Acct: [id number] Name: ITZEL ALONZO Rep #: [id number] : 1950 M 74 From: Lion torres MD PCP: Carlene Haji, PLUMBING ENGINEERING DRAFTSPERSON-C Status: REG ER Study: Spine Cervical without Contras Date of Exam: 0 05/04/25 Exam# [id number] Ordering Dr: Ike Dawson DO PROCEDURE: SPINE [...] upper lobe pulmonary mass. Reading Location: [facility] CC: PLUMBING ENGINEERING DRAFTSPERSON-C Carlene Haji; Dr. Ike Dawson DO Hogshead Liner: Signed Normal [facility] White blood cell (WBC) count Ordered By: Ike Dawson on 05-04-2025 WBC (Bld) [#/Vol] 11.5 10*3/uL High 4.4-11.0 [facility] Bedside Glucoseon 04-24-2025 FINGERSTICK GLU 137 mg/dL High 74-106 [facility] Comment on above: Result Comment: BELLA FRANCISCOENT OF PATIENT CARE PER NURSING PROTOCOL Performed By: #### L 100.0100, L500.4050 #### [facility] Laboratory [address] [place], [address] [facility] deOrdered By: Steven Tejeda on 04-24-2025 Glucose [Mass/Vol] 137 mg/dL High 74-106 [facility] Comment on above: MANAGEMENT OF PATIEN T CARE PER NURSING PROTOCOL L499.0043on 04-24-2025 Trop T High Sen Normal <=22 [facility] Comment on above: Result Comment: Asif espitia via OM: MD Ordered Performed By: #### L 100.0100, L500.4050 #### [facility] Laboratory [address] [place] [place], [address] 12 Lead EKGon 04-23-2025 12 Lead EKG [facility] Cardiovascular Services [address] [place] [address] 12 Lead EKG 04/23/25 2145 MR#: [id number] Acct: [id number] Name: CHERIITZEL Carlie Rep #: [id number] : 1950 74 From: Adams Connell MD [...] rhythm Normal ECG Confirmed by Adams Connell ([id number]), mapping editor KATIE ABRAHAM ([id number]) on 04/26/2025 10:51:11 AM Referred By: Confirmed By: Adams Connell 04/26/25 1051 Date Adams Connell MD CC: SID Haji; Dr. Steven Tejeda, DO Signed Normal [facility] Absolute lymphocyte countOrd ered By: Steven Tejeda on 04-23-2025 Lymphocytes Auto (Unsp spec) [#/Vol] 3.56 10*3/uL 0.83-4.51 [facility] Absolute neutrophil countOrd ered By: Steven Tejeda on 04-23-2025 Neutrophils (Bld) [#/Vol] 8.4 10*3/uL High 2.0-7.7 [facility] Activated partial thrombopla stin time (aPTT) in platelet poor plasma by coagulation aOrdered By: Steven Tejeda on 04-23-2025 aPTT Coag (PPP) [Time] 27.9 s 24.1-36.2 [facility] Anion gap in Serum or Plasma Ordered By: Steven Tejeda on 04-23-2025 Anion gap [Moles/Vol] 11 mmol/L 5-15 [facility] Automated lymphocyte count a s percentage of total leukocytesOrdered By: Steven Tejeda on 04-23-2025 Lymphocytes/100 WBC Auto (Unsp spec) 27.6 % 19-41 [facility] BUN/creatinine ratioOrdered By: Steven Tejeda on 04-23-2025 Urea nitrogen/Creatinine [Mass ratio] 20.6 mg/mg High 10- [facility] Basic Metabolic Profile (BMP )on 04-23-2025 BUN/CRE 20.6 RATIO High 09-13 [facility] Comment on above: Performed By: #### L 400.0001 #### [facility] Laboratory [address] [place], [address] Calcium [Mass/Vol] 10.3 mg/dL Normal 7.6-11.0 [facility] Comment on above: Performed By: #### L 400.0001 #### [facility] Laboratory [address] [place], [address] Chloride [Moles/Vol] 101 mmol/L Normal 98-108 [facility] Comment on above: Performed By: #### L 400.0001 #### [facility] Laboratory [address] [place], [address] CO2 [Moles/Vol] 22.9 mmol/L Normal 21.0-32.0 [facility] Comment on above: Performed By: #### L 400.0001 #### [facility] Laboratory [address] [place], [address] Creatinine [Mass/Vol] 0.96 mg/dL Normal 0.70-1.20 [facility] Comment on above: Performed By: #### L 400.0001 #### [facility] Laboratory [address] [place], [address] ECRCL 66.44 ml/min Normal 50-250 [facility] Comment on above: Performed By: #### L 400.0001 #### [facility] Laboratory [address] [place], [address] GAP 11 Normal 5-15 [facility] Comment on above: Performed By: #### L 400.0001 #### [facility] Laboratory [address] [place], [address] GFR/1.73 sq M.predicted among non-blacks MDRD (S/P/Bld) [Vol rate/Area] 82 mL/min/{1.73_m2} Normal >60 [facility] Comment on above: Result Comment: mL/m in/1.73m2 CKD-EPI Creatinine Equation (2020) Performed By: #### L 400.0001 #### [facility] Laboratory [address] [place], [address] Glucose [Mass/Vol] 292 mg/dL High 70-99 [facility] Comment on above: Performed By: #### L 400.0001 #### [facility] Laboratory [address] [place], [address] Potassium [Moles/Vol] 3.9 mmol/L Normal 3.3-5.1 [facility] Comment on above: Performed By: #### L 400.0001 #### [facility] Laboratory [address] [place], [address] Sodium [Moles/Vol] 134 mmol/L Normal 133-145 [facility] Comment on above: Performed By: #### L 400.0001 #### [facility] Laboratory [address] [place], [address] Urea nitrogen [Mass/Vol] 20 mg/dL High 4-19 [facility] Comment on above: Performed By: #### L 400.0001 #### [facility] Laboratory [address] [place], [address] Basophil percentageOrdered B y: Steven Tejeda on 04-23-2025 Basophils/100 WBC (Bld) 0.2 % 0-1 [facility] CBC W/Diff, Automatedon 03-27 Absolute Lymph 3.56 X10 3/uL Normal 0.83-4.51 [facility] Comment on above: Performed By: #### L 300.3900, L100.0100, L501.4021, L300.4310, L500.2500 ####[facility] [address] [place], [address] Absolute Neut 8.4 X10 3/uL High 2.0-7.7 [facility] Comment on above: Performed By: #### L 300.3900, L100.0100, L501.4021, L300.4310, L500.2500 ####[facility] [address] [place], [address] Basophils/100 WBC (Bld) 0.2 % Normal 0-1 [facility] Comment on above: Performed By: #### L 300.3900, L100.0100, L501.4021, L300.4310, L500.2500 ####[facility] [address] [place], [address] Eosinophils/100 WBC (Bld) 1.9 % Normal 0-5 [facility] Comment on above: Performed By: #### L 300.3900, L100.0100, L501.4021, L300.4310, L500.2500 ####[facility] [address] [place], [address] Erythrocyte distribution width (RBC) [Ratio] 19.0 % High 11.6-14.6 [facility] Comment on above: Performed By: #### L 300.3900, L100.0100, L501.4021, L300.4310, L500.2500 ####[facility] [address] [place], [address] Hematocrit (Bld) [Volume fraction] 31.1 % Low 40-54 [facility] Comment on above: Performed By: #### L 300.3900, L100.0100, L501.4021, L300.4310, L500.2500 ####[facility] [address] [place], [address] Hemoglobin (Bld) [Mass/Vol] 9.3 g/dL Low 13.0-16.5 [facility] Comment on above: Performed By: #### L 300.3900, L100.0100, L501.4021, L300.4310, L500.2500 ####[facility] [address] [place], [address] IG% 0.500 Normal 0.0-0.9 [facility] Comment on above: Result Comment: IG% - Immature Granulocytes (promyelocytes, myelocytes and metamyelocytes) > 1% indicates that a LEFT SHIFT is Present. Performed By: #### L 300.3900, L100.0100, L501.4021, L300.4310, L500.2500 ####[facility] [address] [place], [address] Lymphocytes/100 WBC (Bld) 27.6 % Normal 19-41 [facility] Comment on above: Performed By: #### L 300.3900, L100.0100, L501.4021, L300.4310, L500.2500 ####[facility] [address] [place], [address] MCH (RBC) [Entitic mass] 19.7 pg Low 27.0-32.0 [facility] Comment on above: Performed By: #### L 300.3900, L100.0100, L501.4021, L300.4310, L500.2500 ####[facility] [address] [place], [address] MCHC (RBC) [Mass/Vol] 29.9 g/dL Low 32-36 [facility] Comment on above: Performed By: #### L 300.3900, L100.0100, L501.4021, L300.4310, L500.2500 ####[facility] [address] [place], [address] MCV (RBC) [Entitic vol] 66.0 fL Low 80-94 [facility] Comment on above: Performed By: #### L 300.3900, L100.0100, L501.4021, L300.4310, L500.2500 ####[facility] [address] [place], [address] Monocytes/100 WBC (Bld) 4.9 % Normal 0-10 [facility] Comment on above: Performed By: #### L 300.3900, L100.0100, L501.4021, L300.4310, L500.2500 ####[facility] [address] [place], [address] Neutrophils/100 WBC (Bld) 64.9 % Normal 47-70 [facility] Comment on above: Performed By: #### L 300.3900, L100.0100, L501.4021, L300.4310, L500.2500 ####[facility] [address] [place], [address] Nucleated RBC (Bld) [#/Vol] 0 10*3/uL Normal 0-5 [facility] Comment on above: Performed By: #### L 300.3900, L100.0100, L501.4021, L300.4310, L500.2500 ####[facility] [address] [place], [address] Platelet mean volume (Bld) [Entitic vol] 9.4 fL Normal 6.2-12.0 [facility] Comment on above: Performed By: #### L 300.3900, L100.0100, L501.4021, L300.4310, L500.2500 ####[facility] [address] [place], [address] Platelets (Bld) [#/Vol] 350 10*3/uL Normal 150-450 [facility] Comment on above: Performed By: #### L 300.3900, L100.0100, L501.4021, L300.4310, L500.2500 ####[facility] [address] [place], [address] RBC (Bld) [#/Vol] 4.71 10*6/uL Normal 4.6-6.2 [facility] Comment on above: Performed By: #### L 300.3900, L100.0100, L501.4021, L300.4310, L500.2500 ####[facility] [address] [place], [address] RDW SD 43.6 fl Normal 35.1-43.9 [facility] Comment on above: Performed By: #### L 300.3900, L100.0100, L501.4021, L300.4310, L500.2500 ####[facility] [address] [place], [address] WBC (Bld) [#/Vol] 12.9 10*3/uL High 4.4-11.0 [facility] Comment on above: Performed By: #### L 300.3900, L100.0100, L501.4021, L300.4310, L500.2500 ####[facility] [address] [place], [address] Carbon dioxide, total [Moles /volume] in Central venous bloodOrdered By: Steven Tejeda on 04-23-2025 CO2 [Moles/Vol] 22.9 mmol/L 21.0-32.0 [facility] Chest 1 View (Portable)on Chest 1 View (Portable) [facility] Imaging Services [address] [place] [address] Chest 1 View (Portable) MR#: [id number] Acct: [id number] Name: ITZEL ALONZO Rep #: [id number] : 1950 M 74 From: Deonte Perez MD PCP: Carlene Haji, [employer]UM[employer] ENGINEERING DRAFTSPERSON-C Status: REG ER Study: Chest 1 View (Portable) Date of Exam: 04/23/25 Exam# [id number] Ordering Dr: Steven Tejeda DO PROCEDURE: CHEST [...] regions which may represent adenopathy. Reading Location: [id number] CC: PLUMB[employer] ENGINEERING DRAFTSPERSON-C Carlene Haji; Dr. Steven Tejeda DO Hogshead Liner: Signed Normal [facility] Chloride assayOrdered By: Emil Tejeda on 04-23-2025 Chloride [Moles/Vol] 101 mmol/L 98-108 [facility] Emergency Department Summary on 04-23-2025 Emergency Department Summary [facility] Medical Records Department [address] [place] [address] Emergency Department Summary 04/23/25 MR#: [id number] Acct: [id number] Name: ITZEL ALONZO Rep #: [id number] : 1950 74 From: Steven Teejda DO PCP: SID Haro Status:DEP ER Location: [...] with lung cancer in his right lung. [facility] Medical History Kidney stones Neuropathy PTSD [...] to obtaining)] (more content not included)... Normal [facility] Eosinophil percentageOrdered By: Steven Tejeda on 04-23-2025 Eosinophils/100 WBC (Bld) 1.9 % 0-5 [facility] Erythrocyte distribution wid th ratioOrdered By: Steven Tejeda on 04-23-2025 Erythrocyte distribution width (RBC) [Ratio] 19.0 % High 11.6-14.6 [facility] Erythrocyte distribution wid th standard deviationOrdered By: Steven Tejeda on 04-23-2025 Erythrocyte distribution width (RBC) [Ratio] 43.6 fl 35.1-43.9 [facility] Glomerular filtration rate ( GFR) estimation/1.73 sq m using serum, plasma, or whole bOrdered By: Steven Tejeda on 04-23-2025 GFR/1.73 sq M.predicted among non-blacks MDRD (S/P/Bld) [Vol rate/Area] 82 mL/min/{1.73_m2} >60 [facility] Comment on above: mL/min/1.73m2 CKD-EP I Creatinine Equation (2020) Hematocrit Auto (Bld) [Volum e fraction]Ordered By: Steven Tejeda on 04-23-2025 Hematocrit (Bld) [Volume fraction] 31.1 % Low 40-54 [facility] Hemoglobin measurementOrdere d By: Steven Tejeda on 04-23-2025 Hemoglobin (Bld) [Mass/Vol] 9.3 g/dL Low 13.0-16.5 [facility] Immature granulocytes/100 WB C Auto (Bld)Ordered By: Steven Tejeda on 04-23-2025 Immature granulocytes/100 WBC (Bld) 0.500 % 0.0-0.9 [facility] Comment on above: IG% - Immature Granu locytes (promyelocytes, myelocytes and metamyelocytes) > 1% indicates that a LEFT SHIFT is Present. International normalized rat io (INR) calculationOrdered By: Steven Tejeda on 04-23-2025 INR Coag (Bld) [Relative time] 1.1 {INR} [facility] L499.0042on 04-23-2025 Trop T High Sen 27 ng/L High <=22 [facility] Comment on above: Performed By: #### L 100.0100, L500.4050 #### [facility] Laboratory [address] [place], [place], [address] L501.4021on 04-23-2025 Trop T High Sen 26 ng/L High <=22 [facility] Comment on above: Performed By: #### L 400.0001 #### [facility] Laboratory [address] [facility] [place], [address] MCV (mean corpuscular volume ) determinationOrdered By: Steven Tejeda on 04-23-2025 MCV (RBC) [Entitic vol] 66.0 fL Low 80-94 [facility] Mean corpuscular hemoglobin (MCH) determinationOrdered By: Steven Tejeda on 04-23-2025 MCH (RBC) [Entitic mass] 19.7 pg Low 27.0-32.0 [facility] Mean corpuscular hemoglobin concentration (MCHC) determinationOrdered By: Steven Tejeda on 04-23-2025 MCHC (RBC) [Mass/Vol] 29.9 g/dL Low 32-36 [facility] Mean platelet volume determi nationOrdered By: Steven Tejeda on 04-23-2025 Platelet mean volume (Bld) [Entitic vol] 9.4 fL 6.2-12.0 [facility] Monocyte percentageOrdered B y: Steven Tejeda on 04-23-2025 Monocytes/100 WBC (Bld) 4.9 % 0-10 [facility] Neutrophil percentageOrdered By: Steven Tejeda on 04-23-2025 Neutrophils/100 WBC (Bld) 64.9 % 47-70 [facility] Nucleated red blood cell per centageOrdered By: Steven Tejeda on 04-23-2025 Nucleated RBC/100 WBC (Bld) [Ratio] 0 % 0-5 [facility] Partial Thromboplast Timeon 04-23-2025 aPTT Coag (Bld) [Time] 27.9 s Normal 24.1-36.2 [facility] Comment on above: Performed By: #### L 300.3900, L100.0100, L501.4021, L300.4310, L500.2500 ####[facility] [address] [place], [address] Platelet countOrdered By: Emil Tejeda on 04-23-2025 Platelets (Bld) [#/Vol] 350 10*3/uL 150-450 [facility] Potassium measurement (mass/ volume)Ordered By: Steven Tejeda on 04-23-2025 Potassium (Unsp spec) [Mass/Vol] 3.9 mmol/L 3.3-5.1 [facility] Prothrombin Time w/INRon INR Coag (PPP) [Relative time] 1.1 {INR} Normal [facility] Comment on above: Performed By: #### L 300.3900, L100.0100, L501.4021, L300.4310, L500.2500 ####[facility] [address] [place], [address] PT Coag (PPP) [Time] 14.2 s Normal 11.7-14.9 [facility] Comment on above: Performed By: #### L 300.3900, L100.0100, L501.4021, L300.4310, L500.2500 ####[facility] [address] [place], [place], [address] Prothrombin timeOrdered By: Steven Tejeda on 04-23-2025 PT Coag (PPP) [Time] 14.2 s 11.7-14.9 [facility] RBC Auto (Bld) [#/Vol]Ordere d By: Steven Tejeda on 04-23-2025 RBC (Bld) [#/Vol] 4.71 10*6/uL 4.6-6.2 [facility] STROKE Brain/Head without Co nton 04-23-2025 STROKE Brain/Head without Cont [facility] Imaging Services [address] [place], [place] [address] STROKE Brain/Head without Cont MR#: [id number] Acct: [id number] Name: TIZEL ALONZO Rep #: [id number] : 1950 M 74 From: Deonte Perez MD PCP: Carlene Haji, [employer]UM[employer] ENGINEERING DRA[employer]SPERSON-C Status: REG ER Study: STROKE Brain/Head without Cont Date of Exam: 0 04/23/25 Exam# [id number] Ordering Dr: Steven Tejeda DO PROCEDURE: STROKE [...] atrophy and chronic microvascular ischemia. Reading Location: [id number] CC: PLUMB[employer] ENGINEERING DRAFTSPERSON-C Carlene Haji; Dr. Steven Tejeda DO Hogshead Liner: Signed Normal [facility] STROKE CTA Head AND Neck W/C onon 04-23-2025 STROKE CTA Head AND Neck W/Con [facility] Imaging Services [address] [place], [place] [address] STROKE CTA Head AND Neck W/Con MR#: [id number] Acct: [id number] Name: ITZEL ALONZO Rep #: [id number] : 1950 M 74 From: Deonte Perez MD PCP: SID Haro Status: REG ER Study: STROKE CTA Head AND Neck W/Con Date of Exam: 0 04/23/25 Exam# [id number] Ordering Dr: Steven Tejeda DO PROCEDURE: STROKE [...] occluded similar to the prior CTA. Anatomy: [place] [facility] [place] anatomy is normal. Aneurysm or [...] apical mass suspicious for malignancy. Reading Location: [id number] CC: SID Haji; Dr. Steven Tejeda DO Hogshead Liner: Signed Normal [facility] Serum creatinine measurement (mass/volume)Ordered By: Steven Tejeda on 04-23-2025 Creatinine [Mass/Vol] 0.96 mg/dL 0.70-1.20 [facility] Serum glucose measurement (m ass/volume)Ordered By: Steven Tejeda on 04-23-2025 Glucose [Mass/Vol] 292 mg/dL High 70-99 [facility] Serum or plasma calcium ivania urement (mass/volume)Ordered By: Steven Tejeda on 04-23-2025 Calcium [Mass/Vol] 10.3 mg/dL 7.6-11.0 [facility] Serum or plasma urea nitroge n measurement (mass/volume)Ordered By: Steven Tejeda on 04-23-2025 Urea nitrogen [Mass/Vol] 20 mg/dL High 4-19 [facility] Sodium levelOrdered By: Steven Tejeda on 04-23-2025 Sodium [Moles/Vol] 134 mmol/L 133-145 [facility] Troponin T.cardiac [Mass/vol ume] in Serum or Plasma by High sensitivity methodOrdered By: Steven Tejeda on 04-23-2025 Troponin T.cardiac High sensitivity method [Mass/Vol] 27 ng/L High <22 [facility] Troponin T.cardiac High sensitivity method [Mass/Vol] 26 ng/L High <22 [facility] White blood cell (WBC) count Ordered By: Steven Tejeda on 04-23-2025 WBC (Bld) [#/Vol] 12.9 10*3/uL High 4.4-11.0 [facility] Bedside Glucoseon 12-12-2024 FINGERSTICK GLU 358 mg/dL High 74-106 [facility] Comment on above: Result Comment: BELLA PENALOZA OF PATIENT CARE PER NURSING PROTOCOL Performed By: #### L 100.0100, L500.4050 #### [facility] Laboratory [address] [facility] [place], [address] Emergency Department Summary on 12-12-2024 Emergency Department Summary [facility] Medical Records Department [address] [place] [address] Emergency Department Summary 12/12/24 MR#: [id number] Acct: [id number] Name: ITZEL ALONZO Rep #: [id number] : 1950 74 From: Juvencio Shen MD PCP: [place] [facility] Status:DEP ER Location: ED HPI History of Present Illness Chief Complaint: General Illness Narrative Narrative: Patient is a 74-year-old male with history of homelessness, anxiety, depression, PTSD, is part of the [place] system, and per the patient has history of lung cancer of the right lung. Patient states that he has been back in the [facility] for the last 6 to 7 months. He called the nurse hotline today, because he has been having some troubles with his fear secondary to his PTSD, he is having difficulty dealing with the [place] the [facility] secondary to his family being there. He [...] he is mostly here because of frustration. [facility] Medical History (Updated 12/12/24 @ 13:26 [...] to auscult (more content not included)... Normal [facility] Abdomen/Pelvis W IV Cont ONL Yon 06-13-2024 Abdomen/Pelvis W IV Cont ONLY [facility] Imaging Services [address] [place] [address] Abdomen/Pelvis W IV Cont ONLY MR#: [id number] Acct: [id number] Name: ITZEL ALONZO Rep #: [id number] : 1950 M 74 From: Myke Mortensen MD PCP: [facility] Status: REG ER Study: Abdomen/Pelvis W IV Cont ONLY Date of Exam: Exam# [id number] Ordering Dr: Juana Michaud MD [id number] INDICATION: abdominal pain EXAMINATION: CT ABDOMEN AND [...] EDT , CC: Dr. Juana Michaud MD; [facility] Hogshead Liner: Signed Normal [facility] Basic Metabolic Profile (BMP )on 06-13-2024 BUN/CRE 18.4 RATIO Normal - [facility] Comment on above: Performed By: #### L 400.0001 #### [facility] Laboratory [address] [place], [place], [address] (956) CA,Total 9.1 mg/dL Normal 8.5-10.1 [facility] Comment on above: Performed By: #### L 400.0001 #### [facility] Laboratory [address] [place], [address] Chloride [Moles/Vol] 100 mmol/L Normal 98-107 [facility] Comment on above: Performed By: #### L 400.0001 #### [facility] Laboratory [address] [place], [address] CO2 [Moles/Vol] 24.0 mmol/L Normal 21.0-32.0 [facility] Comment on above: Performed By: #### L 400.0001 #### [facility] Laboratory [address] [place], [address] Creatinine [Mass/Vol] 1.47 mg/dL High 0.70-1.30 [facility] Comment on above: Result Comment: The validity of the calculated GFR GFRAA in patients over 70 years has not been determined. Clinical correlation is essential. Performed By: #### L 400.0001 #### [facility] Laboratory [address] [place], [address] ECRCL 48.22 ml/min Normal [facility] Comment on above: Performed By: #### L 400.0001 #### [facility] Laboratory [address] [place], [address] EST GFR - AA 60 mL/min Normal >60 [facility] Comment on above: Result Comment: Afri can Romanian GFR Calc Performed By: #### L 400.0001 #### [facility] Laboratory [address] [place], [address] GAP 9 Normal 5-15 [facility] Comment on above: Performed By: #### L 400.0001 #### [facility] Laboratory [address] [place], [address] GFR/1.73 sq M.predicted among non-blacks MDRD (S/P/Bld) [Vol rate/Area] 50 mL/min/{1.73_m2} Low >60 [facility] Comment on above: Result Comment: Non- GFR Calc Performed By: #### L 400.0001 #### [facility] Laboratory [address] [place], [address] Glucose [Mass/Vol] 470 mg/dL Invalid Interpretation Code 74-106 [facility] Comment on above: Result Comment: Crit ical Result(s) Called at: 18:33:01 06/13/2024 by: CRYS LOCKHART TO JUSTYNA KEMP. Results read back by same. Glucose result greater than or equal to 200 mg/dL suggests DIABETES MELLITUS per A.D.A. criteria. Performed By: #### L 400.0001 #### [facility] Laboratory [address] [place], [address] Potassium [Moles/Vol] 4.3 mmol/L Normal 3.5-5.1 [facility] Comment on above: Result Comment: Slig ht Hemolysis, Result may be falsely increased. Performed By: #### L 400.0001 #### [facility] Laboratory [address] [place], [address] Sodium [Moles/Vol] 133 mmol/L Low 136-145 [facility] Comment on above: Performed By: #### L 400.0001 #### [facility] Laboratory [address] [place], [address] Urea nitrogen [Mass/Vol] 27 mg/dL High 7-18 [facility] Comment on above: Performed By: #### L 400.0001 #### [facility] Laboratory [address] [place], [address] CBC W/Diff, Automatedon 07-2 0-2023 Absolute Lymph 2.61 X10 3/uL Normal 0.83-4.51 [facility] Comment on above: Performed By: #### L 400.0001 #### [facility] Laboratory [address] [place], [address] Absolute Neut 5.5 X10 3/uL Normal 2.0-7.7 [facility] Comment on above: Performed By: #### L [id number] #### [facility] Laboratory [address] [place], [address] Basophils/100 WBC (Bld) 0.2 % Normal 0-1 [facility] Comment on above: Performed By: #### L 400.0001 #### [facility] Laboratory [address] [place], [address] Eosinophils/100 WBC (Bld) 2.0 % Normal 0-5 [facility] Comment on above: Performed By: #### L [id number] #### [facility] Laboratory [address] [place], [address] Erythrocyte distribution width (RBC) [Ratio] 16.1 % High 11.6-14.6 [facility] Comment on above: Performed By: #### L [id number] #### [facility] Laboratory [address] [place], [address] Hematocrit (Bld) [Volume fraction] 37.0 % Low 40-54 [facility] Comment on above: Performed By: #### L 400.0001 #### [facility] Laboratory [address] [place], [address] Hemoglobin (Bld) [Mass/Vol] 11.0 g/dL Low 13.0-16.5 [facility] Comment on above: Performed By: #### L 400.0001 #### [facility] Laboratory [address] [place], [address] IG% 0.500 Normal 0.0-0.9 [facility] Comment on above: Result Comment: IG% - Immature Granulocytes (promyelocytes, myelocytes and metamyelocytes) > 1% indicates that a LEFT SHIFT is Present. Performed By: #### L 400.0001 #### [facility] Laboratory [address] [place], [address] Lymphocytes/100 WBC (Bld) 29.4 % Normal 19-41 [facility] Comment on above: Performed By: #### L 400.0001 #### [facility] Laboratory [address] [place], [address] MCH (RBC) [Entitic mass] 21.5 pg Low 27.0-32.0 [facility] Comment on above: Performed By: #### L [id number] #### [facility] Laboratory [address] [place], [address] MCHC (RBC) [Mass/Vol] 29.7 g/dL Low 32-36 [facility] Comment on above: Performed By: #### L [id number] #### [facility] Laboratory [address] [place], [address] MCV (RBC) [Entitic vol] 72.4 fL Low 80-94 [facility] Comment on above: Performed By: #### L [id number] #### [facility] Laboratory [address] [place], [address] Monocytes/100 WBC (Bld) 5.6 % Normal 0-10 [facility] Comment on above: Performed By: #### L [id number] #### [facility] Laboratory [address] [place], [address] Neutrophils/100 WBC (Bld) 62.3 % Normal 47-70 [facility] Comment on above: Performed By: #### L 400.0001 #### [facility] Laboratory [address] [place], [address] Nucleated RBC (Bld) [#/Vol] 0 10*3/uL Normal 0-5 [facility] Comment on above: Performed By: #### L [id number] #### [facility] Laboratory [address] [place], [address] Platelet mean volume (Bld) [Entitic vol] 10.8 fL Normal 6.2-12.0 [facility] Comment on above: Performed By: #### L 400.0001 #### [facility] Laboratory [address] [place], [address] Platelets (Bld) [#/Vol] 285 10*3/uL Normal 150-450 [facility] Comment on above: Performed By: #### L [id number] #### [facility] Laboratory [address] [place], [address] RBC (Bld) [#/Vol] 5.11 10*6/uL Normal 4.6-6.2 [facility] Comment on above: Performed By: #### L [id number] #### [facility] Laboratory [address] [place], [address] RDW SD 40.9 fl Normal 35.1-43.9 [facility] Comment on above: Performed By: #### L [id number] #### [facility] Laboratory [address] [place], [address] WBC (Bld) [#/Vol] 8.9 10*3/uL Normal 4.4-11.0 [facility] Comment on above: Performed By: #### L [id number] #### [facility] Laboratory [address] 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 [facility] Medical History Anxiety Hepatitis Smoker COPD [...] Wall ins (more content not included)... Normal [facility] Lipaseon 06-13-2024 Lipase [Catalytic activity/Vol] 41 U/L Normal 13-75 [facility] Comment on above: Result Comment: Nesha davison note: LIPASE revised reference range effective 23. New Lipase methodology. Expected to produce lower values than the previous assay method. NEW Reference Range: 13 - 75 U/L Performed By: #### L [id number] #### [facility] Laboratory [address] [place], [address] Liver Profileon 06-13-2024 Albumin [Mass/Vol] 3.2 g/dL Normal 3.2-5.0 [facility] Comment on above: Performed By: #### L [id number] #### [facility] Laboratory [address] [place], [address] ALK P 131 U/L High 45-117 [facility] Comment on above: Performed By: #### L [id number] #### [facility] Laboratory [address] [place], [address] ALT [Catalytic activity/Vol] 14 U/L Low 16-61 [facility] Comment on above: Performed By: #### L [id number] #### [facility] Laboratory [address] [place], [address] AST [Catalytic activity/Vol] 16 U/L Normal 15-37 [facility] Comment on above: Result Comment: Slig ht Hemolysis, Result may be falsely increased. Performed By: #### L [id number] #### [facility] Laboratory [address] [place], [address] Bilirubin [Mass/Vol] 0.20 mg/dL Normal 0.20-1.00 [facility] Comment on above: Result Comment: For patients on eltrombopag therapy, use of Dimension [place] TBIL is not recommended. Performed By: #### L [id number] #### [facility] Laboratory [address] [place], [address] Bilirubin.direct [Mass/Vol] 0.06 mg/dL Normal 0.00-0.30 [facility] Comment on above: Performed By: #### L [id number] #### [facility] Laboratory [address] [place], [address] Globulin (S) [Mass/Vol] 4.3 g/dL High 2.2-4.2 [facility] Comment on above: Performed By: #### L 400.0001 #### [facility] Laboratory [address] [place], [address] T PROT 7.5 g/dL Normal 6.4-8.2 [facility] Comment on above: Performed By: #### L [id number] #### [facility] Laboratory [address] [place], [address] Urinalysis, Completeon 06-13 BACTERIA 0 SEEN Normal None Seen [facility] Comment on above: Order Comment: COLLE CTOR TO SPECIFY Performed By: #### L 100.0100, L500.4050 #### [facility] Laboratory [address] [place], [address] EPI,SQUAMOUS 0 SEEN Normal 0-5 [facility] Comment on above: Order Comment: COLLE CTOR TO SPECIFY Performed By: #### L 100.0100, L500.4050 #### [facility] Laboratory [address] [place], [address] Mucus Ql (Urine sed) 0 SEEN Normal [facility] Comment on above: Order Comment: COLLE CTOR TO SPECIFY Performed By: #### L 100.0100, L500.4050 #### [facility] Laboratory [address] [place], [address] RBC 0 SEEN Normal 0-5 [facility] Comment on above: Order Comment: COLLE CTOR TO SPECIFY Performed By: #### L 100.0100, L500.4050 #### [facility] Laboratory [address] [place], [address] WBC 0 SEEN Normal 0-5 [facility] Comment on above: Order Comment: COLLE CTOR TO SPECIFY Performed By: #### L 100.0100, L500.4050 #### [facility] Laboratory [address] [place], [address] Abdomen/Pelvis W IV Cont ONL Yon 06-03-2024 Abdomen/Pelvis W IV Cont ONLY [facility] Imaging Services [address] [place] [address] Abdomen/Pelvis W IV Cont ONLY MR#: [id number] Acct: [id number] Name: ITZEL ALONZO Rep #: [id number] : 1950 M 73 From: George Barahona MD PCP: [facility] Status: REG ER Study: Abdomen/Pelvis W IV Cont ONLY Date of Exam: Exam# [id number] Ordering Dr: César Short DO [id number] STUDY: CT ABDOMEN AND PELVIS WITH CONTRAST [...] EDT , CC: Dr. César Short, DO; [facility] Hogshead Liner: Signed Normal [facility] CBC W/Diff, Automatedon 05-25 0-2023 Absolute Lymph 2.75 X10 3/uL Normal 0.83-4.51 [facility] Comment on above: Performed By: #### L 100.0100, L500.4050 #### [facility] Laboratory [address] [place], [address] Absolute Neut 4.7 X10 3/uL Normal 2.0-7.7 [facility] Comment on above: Performed By: #### L 100.0100, L500.4050 #### [facility] Laboratory [address] [place], [address] Basophils/100 WBC (Bld) 0.4 % Normal 0-1 [facility] Comment on above: Performed By: #### L 100.0100, L500.4050 #### [facility] Laboratory [address] [place], [address] Eosinophils/100 WBC (Bld) 3.0 % Normal 0-5 [facility] Comment on above: Performed By: #### L 100.0100, L500.4050 #### [facility] Laboratory [address] [place], [address] Erythrocyte distribution width (RBC) [Ratio] 16.5 % High 11.6-14.6 [facility] Comment on above: Performed By: #### L 100.0100, L500.4050 #### [facility] Laboratory [address] [place], [address] Hematocrit (Bld) [Volume fraction] 37.5 % Low 40-54 [facility] Comment on above: Performed By: #### L 100.0100, L500.4050 #### [facility] Laboratory [address] [place], [address] Hemoglobin (Bld) [Mass/Vol] 11.3 g/dL Low 13.0-16.5 [facility] Comment on above: Performed By: #### L 100.0100, L500.4050 #### [facility] Laboratory [address] [place], [address] IG% 0.400 Normal 0.0-0.9 [facility] Comment on above: Result Comment: IG% - Immature Granulocytes (promyelocytes, myelocytes and metamyelocytes) > 1% indicates that a LEFT SHIFT is Present. Performed By: #### L 100.0100, L500.4050 #### [facility] Laboratory [address] [place], [address] Lymphocytes/100 WBC (Bld) 33.1 % Normal 19-41 [facility] Comment on above: Performed By: #### L 100.0100, L500.4050 #### [facility] Laboratory [address] [place], [address] MCH (RBC) [Entitic mass] 21.5 pg Low 27.0-32.0 [facility] Comment on above: Performed By: #### L 100.0100, L500.4050 #### [facility] Laboratory [address] [place], [address] MCHC (RBC) [Mass/Vol] 30.1 g/dL Low 32-36 [facility] Comment on above: Performed By: #### L 100.0100, L500.4050 #### [facility] Laboratory [address] [place], [address] MCV (RBC) [Entitic vol] 71.3 fL Low 80-94 [facility] Comment on above: Performed By: #### L 100.0100, L500.4050 #### [facility] Laboratory [address] [place], [address] Monocytes/100 WBC (Bld) 6.0 % Normal 0-10 [facility] Comment on above: Performed By: #### L 100.0100, L500.4050 #### [facility] Laboratory [address] [place], [address] Neutrophils/100 WBC (Bld) 57.1 % Normal 47-70 [facility] Comment on above: Performed By: #### L 100.0100, L500.4050 #### [facility] Laboratory [address] [place], [address] Nucleated RBC (Bld) [#/Vol] 0 10*3/uL Normal 0-5 [facility] Comment on above: Performed By: #### L 100.0100, L500.4050 #### [facility] Laboratory [address] [place], [address] Platelet mean volume (Bld) [Entitic vol] 10.8 fL Normal 6.2-12.0 [facility] Comment on above: Performed By: #### L 100.0100, L500.4050 #### [facility] Laboratory [address] [place], [address] Platelets (Bld) [#/Vol] 269 10*3/uL Normal 150-450 [facility] Comment on above: Performed By: #### L 100.0100, L500.4050 #### [facility] Laboratory [address] [place], [address] RBC (Bld) [#/Vol] 5.26 10*6/uL Normal 4.6-6.2 [facility] Comment on above: Performed By: #### L 100.0100, L500.4050 #### [facility] Laboratory [address] [place], [address] RDW SD 40.8 fl Normal 35.1-43.9 [facility] Comment on above: Performed By: #### L 100.0100, L500.4050 #### [facility] Laboratory [address] [place], [address] WBC (Bld) [#/Vol] 8.3 10*3/uL Normal 4.4-11.0 [facility] Comment on above: Performed By: #### L 100.0100, L500.4050 #### [facility] Laboratory [address] [place], [address] Comprehensive Metabolic Prof ilon 06-03-2024 Albumin [Mass/Vol] 3.4 g/dL Normal 3.2-5.0 [facility] Comment on above: Performed By: #### L 100.0100, L500.4050 #### [facility] Laboratory [address] [place], [address] Albumin/Globulin [Mass ratio] 0.8 {ratio} Low 0.9-2.4 [facility] Comment on above: Performed By: #### L 100.0100, L500.4050 #### [facility] Laboratory [address] [place], [address] ALK P 135 U/L High 45-117 [facility] Comment on above: Performed By: #### L 100.0100, L500.4050 #### [facility] Laboratory [address] [place], [address] ALT [Catalytic activity/Vol] 16 U/L Normal 16-61 [facility] Comment on above: Performed By: #### L 100.0100, L500.4050 #### [facility] Laboratory [address] [place], [address] AST [Catalytic activity/Vol] 19 U/L Normal 15-37 [facility] Comment on above: Performed By: #### L 100.0100, L500.4050 #### [facility] Laboratory [address] [place], [address] Bilirubin [Mass/Vol] 0.20 mg/dL Normal 0.20-1.00 [facility] Comment on above: Result Comment: For patients on eltrombopag therapy, use of Dimension [place] TBIL is not recommended. Performed By: #### L 100.0100, L500.4050 #### [facility] Laboratory [address] [place], [address] BUN/CRE 19.4 RATIO Normal 10-20 [facility] Comment on above: Performed By: #### L 100.0100, L500.4050 #### [facility] Laboratory [address] [place], [address] CA,Total 10.0 mg/dL Normal 8.5-10.1 [facility] Comment on above: Performed By: #### L 100.0100, L500.4050 #### [facility] Laboratory [address] [place], [address] Chloride [Moles/Vol] 102 mmol/L Normal 98-107 [facility] Comment on above: Performed By: #### L 100.0100, L500.4050 #### [facility] Laboratory [address] [place], [address] CO2 [Moles/Vol] 27.0 mmol/L Normal 21.0-32.0 [facility] Comment on above: Performed By: #### L 100.0100, L500.4050 #### [facility] Laboratory [address] [place], [address] Creatinine [Mass/Vol] 1.24 mg/dL Normal 0.70-1.30 [facility] Comment on above: Result Comment: The validity of the calculated GFR GFRAA in patients over 70 years has not been determined. Clinical correlation is essential. Performed By: #### L 100.0100, L500.4050 #### [facility] Laboratory [address] [place], [address] EST GFR - AA 73 mL/min Normal >60 [facility] Comment on above: Result Comment: Afri can Romanian GFR Calc Performed By: #### L 100.0100, L500.4050 #### [facility] Laboratory [address] [place], [address] GAP 5 Normal 5-15 [facility] Comment on above: Performed By: #### L 100.0100, L500.4050 #### [facility] Laboratory [address] [place], [address] GFR/1.73 sq M.predicted among non-blacks MDRD (S/P/Bld) [Vol rate/Area] 60 mL/min/{1.73_m2} Normal >60 [facility] Comment on above: Result Comment: Non- GFR Calc Performed By: #### L 100.0100, L500.4050 #### [facility] Laboratory [address] [place], [address] Globulin (S) [Mass/Vol] 4.5 g/dL High 2.2-4.2 [facility] Comment on above: Performed By: #### L 100.0100, L500.4050 #### [facility] Laboratory [address] [place], [address] Glucose [Mass/Vol] 367 mg/dL High 74-106 [facility] Comment on above: Result Comment: Gluc ose result greater than or equal to 200 mg/dL suggests DIABETES MELLITUS per A.D.A. criteria. Performed By: #### L 100.0100, L500.4050 #### [facility] Laboratory [address] [place], [address] Potassium [Moles/Vol] 4.7 mmol/L Normal 3.5-5.1 [facility] Comment on above: Performed By: #### L 100.0100, L500.4050 #### [facility] Laboratory [address] [place], [address] Sodium [Moles/Vol] 134 mmol/L Low 136-145 [facility] Comment on above: Performed By: #### L 100.0100, L500.4050 #### [facility] Laboratory [address] [place], [address] T PROT 7.9 g/dL Normal 6.4-8.2 [facility] Comment on above: Performed By: #### L 100.0100, L500.4050 #### [facility] Laboratory [address] [place], [address] Urea nitrogen [Mass/Vol] 24 mg/dL High -18 [facility] Comment on above: Performed By: #### L 100.0100, L500.4050 #### [facility] Laboratory [address], [address] Emergency Department Summary on 06-03-2024 Emergency Department Summary [facility] Medical Records Department [address] [place] [address] Emergency Department Summary 06/03/24 MR#: [id number] Acct: [id number] Name: CHERIITZEL Carlie Rep #: [id number] : 1950 73 From: César Short DO PCP: [place] Hospital Status[facility] ER Location: ED HPI History of Present [...] very hungry would like to eat the French food he brought with him. He has had prior appendectomy and kidney stone. He states he recently returned back to [place] after spending about half a year in [place] visiting his family. He has a history of known diabetes and hypertension. He has no local primary care [facility] [place] surgeries [facility] at [facility] ([place], [place]). Patient denies any abdominal bloating no changes in bowel or bladder habits. No reported fevers. [facility] Medical History Anxiety Hepatitis Smoker COPD [...] General Kishore (more content not included)... Normal [facility] Urinalysis, Completeon 06-03 BACTERIA RARE Normal None Seen [facility] Comment on above: Order Comment: CLEAN CATCH Performed By: #### L 400.0001 #### [facility] Laboratory [address] [place], [place], [address] EPI,SQUAMOUS 0 SEEN Normal 0-5 [facility] Comment on above: Order Comment: CLEAN CATCH Performed By: #### L 400.0001 #### [facility] Laboratory [address] [place], [address] Mucus Ql (Urine sed) 0 SEEN Normal [facility] Comment on above: Order Comment: CLEAN CATCH Performed By: #### L [id number] #### [facility] [address] [place], [address] RBC 0 SEEN Normal 0-5 [facility] Comment on above: Order Comment: CLEAN CATCH Performed By: #### L [id number] #### [facility] [address] [place], [address] WBC 0 SEEN Normal 0-5 [facility] Comment on above: Order Comment: CLEAN CATCH Performed By: #### L [id number] #### [facility] [address] [place], [place], [id number] Vital Signs Date Time Vital Sign Value Performing Clinician Rickey rg 05-13-2025 13:11-0400 Body temperature 97.8 [degF] Dr. Steven Tejeda DO Work Phone: [facility] 05-13-2025 13:11-0400 Diastolic blood pressure 72 mm[Hg] Dr. Steven Tejeda DO Work Phone: [facility] 05-13-2025 13:11-0400 Heart rate 90 /min Dr. Steven Tejeda DO Work Phone: [facility] 05-13-2025 13:11-0400 Respiratory rate 12 /min Dr. Steven Tejeda DO Work Phone: [facility] 05-13-2025 13:11-0400 SaO2% (BldA) [Mass fraction] 95 % Dr. Steven Tejeda DO Work Phone: [facility] 05-13-2025 13:11-0400 Systolic blood pressure 140 mm[Hg] Dr. Steven Tejeda DO Work Phone: 9(973)579-658643 [place] [address] 05-13-2025 12:40-0400 Inhaled oxygen flow rate 2 L/min Dr. Steven Tejeda DO Work Phone: 1(476)752-337843 [place] [address] 05-12-2025 11:06-0400 Body height 185.[address] Steven Tejeda DO Work Phone: 0(449)674-373843 [place] [address] 05-12-2025 11:06-0400 Body weight 64.[address] Steven Tejeda DO Work Phone: 7(273)817-139943 [place] [address] 05-11-2025 20:16-0400 Body mass index (BMI) [Ratio] 18.7 kg/m2 Dr. Steven Tejeda DO Work Phone: 1(506)880-758043 [place] [address] 05-11-2025 19:29-0400 Body temperature 98.6 [degF] Dr. Steven Tejeda DO Work Phone: 8(866)803-463943 [place] [address] 05-11-2025 19:29-0400 Diastolic blood pressure 85 mm[Hg] Dr. Steven Tejeda DO Work Phone: 6(093)813-922243 [place] [address] 05-11-2025 19:29-0400 Heart rate 99 /min Dr. Steven Tejeda DO Work Phone: 2(947)317-842643 [place] [address] 05-11-2025 19:29-0400 Respiratory rate 24 /min Dr. Steven Tejeda DO Work Phone: 2(240)351-972743 [place] [address] 05-11-2025 19:29-0400 SaO2% (BldA) [Mass fraction] 95 % Dr. Steven Tejeda DO Work Phone: 8(566)519-795743 [place] [address] 05-11-2025 19:29-0400 Systolic blood pressure 154 mm[Hg] Dr. Steven Tejeda DO Work Phone: 1(074)907-713243 [place] [address] 05-11-2025 14:09-0400 Body mass index (BMI) [Ratio] 19.2 kg/m2 Dr. Steven Tejeda DO Work Phone: 9(543)577-935643 [place] [address] 05-11-2025 14:09-0400 Body weight 66.[address] Steven Tejeda DO Work Phone: [facility] 05-11-2025 14:05-0400 Body height 185.[address] Steven Tejeda DO Work Phone: [facility] 05-04-2025 14:54-0400 Body temperature 98.3 [degF] Dr. Steven Tjeeda DO Work Phone: 4(690)286-428443 [place] [address] 05-04-2025 14:54-0400 Diastolic blood pressure 88 mm[Hg] Dr. Steven Tejeda DO Work Phone: 6(215)726-168943 [place] [address] 05-04-2025 14:54-0400 Heart rate 91 /min Dr. Steven Tejeda DO Work Phone: 2(278)217-887443 [place] [address] 05-04-2025 14:54-0400 Respiratory rate 16 /min Dr. Steven Tejeda DO Work Phone: 5(871)212-897043 [place] [address] 05-04-2025 14:54-0400 SaO2% (BldA) [Mass fraction] 98 % Dr. Steven Tejeda DO Work Phone: 7(398)230-800043 [place] [address] 05-04-2025 14:54-0400 Systolic blood pressure 146 mm[Hg] Dr. Steven Tejeda DO Work Phone: 3(260)429-814143 [place] [address] 05-04-2025 11:22-0400 Inhaled oxygen flow rate 97 L/min Dr. Steven Tejeda DO Work Phone: 9(334)609-345143 [place] [address] 05-04-2025 11:13-0400 Body height 185.[address] Steven Tejeda DO Work Phone: 6(833)361-127143 [place] [address] 05-04-2025 11:13-0400 Body mass index (BMI) [Ratio] 18.8 kg/m2 Dr. Steven Tejeda DO Work Phone: 8(277)279-603343 [place] [address] 05-04-2025 11:13-0400 Body weight 64.[address] Steven Tejeda DO Work Phone: 1(136)851-750143 [place] [address] 04-24-2025 00:37-0400 Body temperature 98.2 [degF] Dr. Steven Tejeda DO Work Phone: 2(533)051-726938 [place] [address] 04-24-2025 00:37-0400 Diastolic blood pressure 81 mm[Hg] Dr. Steven Tejeda DO Work Phone: 4(362)248-221838 [place] [address] 04-24-2025 00:37-0400 Heart rate 83 /min Dr. Steven Tejeda DO Work Phone: 8(124)006-051838 [place] [address] 04-24-2025 00:37-0400 Respiratory rate 25 /min Dr. Steven Tejeda DO Work Phone: 7(178)015-623338 [place] [address] 04-24-2025 00:37-0400 SaO2% (BldA) [Mass fraction] 99 % Dr. Steven Tejeda DO Work Phone: 4(608)603-702638 [place] [address] 04-24-2025 00:37-0400 Systolic blood pressure 149 mm[Hg] Dr. Steven Tejeda DO Work Phone: 6(307)407-600538 [place] [address] 04-23-2025 21:27-0400 Body mass index (BMI) [Ratio] 20.8 kg/m2 Dr. Steven Tejeda DO Work Phone: 5(636)912-202038 [place] [address] 04-23-2025 21:07-0400 Body height 185.[address] Steven Tejeda DO Work Phone: 6(073)122-126438 [place] [address] 04-23-2025 21:07-0400 Body weight 71.[address] Steven Tejeda DO Work Phone: 2(745)474-108538 [place] [address] Encounters Encounter Date Encounter Type Care Provider Facility Start: 05-13-2025 Non-patient / Non-visit Dr. Anthony Salgado MD -[facility] Work Phone: Start: 05-12-2025 Non-patient / Non-visit Dr. Anthony Salgado MD -[facility] Work Phone: Start: 05-11-2025 ambulatory [...] 12-12-2024 End: 12-12-2024 Emergency department patient visit [facility] Facility:[facility] Start: 06-13-2024 End: 06-13-2024 Emergency department patient visit [facility] Facility:[facility] Start: 06-03-2024 End: 06-03-2024 Emergency department patient visit [facility] Facility:[facility] Procedures Date Procedure Procedure Detail [...] Date Care Activity Detail Author Start: 05-12-2025 [facility] Start: 05-12-2025 Patient discharge [facility] Start: 05-12-2025 Patient referral to dietitian [facility] Start: 05-11-2025 Following clinical p athway protocol [facility] Start: 05-11-2025 Ambulation without limitation [facility] Start: 05-11-2025 Assessment of risk o f venous thromboembolism [facility] Start: 05-11-2025 Care regimes management [facility] Start: 05-11-2025 Insertion of cathete r into peripheral vein [facility] Start: 05-11-2025 Notification of physician [facility] Start: 05-11-2025 Oxygen therapy [facility] Start: 05-11-2025 Providing care accor ding to standard [facility] Start: 05-11-2025 End: 05-11-2025 [facility] Start: 05-11-2025 Verification routine [facility] Start: 05-11-2025 Admission procedure [facility] Start: 05-11-2025 Hospital admission, emergency, from emergency room, medical nature [facility] Start: 05-11-2025 End: 05-11-2025 [facility] Start: 05-11-2025 Inhalation therapy procedure [facility] Start: 05-11-2025 Patient referral to dietitian [facility] Start: 05-04-2025 [facility] Start: 04-24-2025 [facility] Start: 04-23-2025 Oxygen therapy [facility] Start: 04-23-2025 [facility] Patient Education [facility] Work Phone: Patient referral [facility] Work Phone: Troponin T.cardiac [ Mass/volume] in Serum or Plasma by High sensitivity method [facility] Payers Date Payer Category Payer Self-pay [id number] 2024 Self-pay [id number] 2024 Self-pay Unknown [id number] 2.16.8 [id number] Unknown [id number] 2.16.8 [id number] Unknown [id number] 2.16.8 [id number] Unknown [id number] 2.16.8 [id number] Unknown [id number] 2.16.8 [id number] Unknown [id number] 2.16.8 [id number] Unknown [id number] 2.16.8 [id number] Unknown [id number] 2.16.8 [id number] Unknown [id number] 2.16.8 [id number] Social History Date Type Detail Facility Start: 04-23-2025 End: 05-11-2025 Tobacco smoking status NHIS Current some day smoker [facility] Start: 04-23-2025 Tobacco Use Tobacco Use [facility] Start: 1950 Sex Assigned At Male [facility] Goals Date Patient Goal Desired Activity /State Functional Status Date Assessment Result Facility 05-13-2025 Functional status Ambulates [facility] Work Phone: Mental Status Date Assessment Result Facility 05-13-2025 Cognitive function Voice/Name [facility] Work Phone: 05-11-2025 Cognitive function Voice/Name [facility] Work Phone: 04-23-2025 Cognitive function Voice/Name [facility] Work Phone: Clinical Notes 04-23-2025 to 05-13-2025 Note Date & Type Note Facility 05-13-2025 Discharge summary [facility] 05-13-2025 Consult note [facility] 05-13-2025 Consult note Note Date/Time May 13, 2025 1:57pm [facility] Medical Records Department [address] [place] [address] Pharmacokinetic/Renal -Consult 05/13/25 1107 MR#: [id number] Acct: [id number] Name: ITZEL ALONZO Rep #:[id number] : 1950 74 From: Gaye Garcia PCP: SID Haro Status:ADM IN Location: [place] [address] Consult Antibiotic Management Pharmacy has been consulted [...] Date Anthony Salgado MD CC: ~ Signed [facility] Work Phone: 1(496) 881-450206-19-2025 [facility] Medical Records Department [address] [place] [address] Discharge Summary 05/13/25 1257 MR#: [id number] Acct: [id number] Name: ITZEL ALONZO Rep #: [id number] : 1950 74 From: Anthony Salgado MD PCP: Carlene N Adithya, PLUMBING ENGINEERING DRAFTSPERSON-C Status:ADM IN Location: [facility] [id number] Providers Date of Admission: 05/11/25 Primary Care [...] Patient is a 74-year-old male who presented [facility] ED on 05/11/2025 with worsening fatigue, weakness and confusion. 1. Large right-sided lung cancer with suspected postobstructive pneumonia ??? Admit under inpatient status to PCU. Patient with known history of large right-sided lung cancer. Chest x-ray on admit with concern for acute postobstructive pneumonia in setting of lung cancer. Stable on room air at rest. Patient has established oncologist Dr. Lake, [facility]. I myself tried to contact through the transfer line 2 times but unsuccessful. Discussed with the child support case officer. [place] oncologist wanted CT head before transfer. In [...] As plan is for transfer to the [place], will hold on GI consult for now. [...] code, verified Expected disposition: Likely transfer to [place] Patient is being transferred to [place] [facility] for further care and decision making [...] PO DAILY PRN c (more content not included)...[facility]06-18-2025 Progress note Author Anthony Salgado [facility] Note Date/Time May 12, 2025 5:22 pm [facility] Medical Records Department [address] [place] [address] Progress Note - Hospitalist 05/12/25 0935 MR#: [id number] Acct: [id number] Name: ITZEL ALONZO Rep #:[id number] : 1950 74 From: Anthony Kiser PCP: SID Haro Status:ADM IN Location: [place] [address] Reason for Visit Reason for Visit: Diagnoses [...] 74.3 H, Lymph % (Auto) 18.4 L, Woodward % (Auto) 5.8, Eos % (Auto) 0.8, [...] associated with end-stage honeycomb fibrosis. Reading Location: [facility] Physical Exam Narrative Seen and examined Patient has mild lethargic but wake up. Shortness of breath mild chest congestion. Diagnosed with a right suprahilar lung cancer, exact sampler/tissuetype unclear. Follows [place] oncologist, await path . Because of transportation [...] Patient is a 74-year-old male who presented [facility] ED on 05/11/2025 with worsening fatigue, weakness and confusion. 1. Large right-sided lung cancer with suspected postobstructive pneumonia ? Admit under inpatient status to PCU. Patient with known history of large right-sided lung cancer. Chest x-ray on admit with concern for acute postobstructive pneumonia in setting of lung cancer. Stable on room air at rest. Patient has established oncologist Dr. Lake, [facility]. I myself tried to contact through the transfer line 2 times but unsuccessful. Discussed with the child support case officer. [place] oncologist wanted CT head before transfer. In [...] As plan is for transfer to the [place], will hold on GI consult for now. [...] code, verified Expected disposition: Likely transfer to [place] Total time of the visit including total time spent in counseling or coordinationof care, (more than 50% of the total time, spent in obtaining medical information from nurses and other ancillary care providers ,explaining to the patient about labs, imaging, diagnosis and management of active complex medical conditions), effort to transfer [place] [facility], discussion with child support case officer, review of labs and imaging is 35 [...] 278 H Charges/Coding Visit Charges Inpatient E&M: 29889 Subs Hosp L3 05/12/25 1722 <Electronically signed by Anthony Salgado MD> Cosigner Signature (if applicable): CC: ~ Signed [facility] Work Phone: 1(477) 844-761706-18-2025 Radiology Diagnostic study note [facility] Imaging Services [address] [place], [place] [address] Brain/Head W/WO Contrast MR#: [id number] Acct: [id number] Name: ITZEL ALONZO Rep #: [id number] : 1950 M 74 From: Estella Coley MD PCP: SID Haro Status: ADM IN Study:Brain/Head W/WO Contrast Date of Exam: 05/12/25 Exam# [id number] Ordering Dr: Venessa Salgado MD PROCEDURE: BRAIN/HEAD [...] mass. No acute intracranial process. Reading Location: [id number] CC: PLUMBING ENGINEERING DRAFTSPERSON-C Carlene Haji; Dr. Anthony Salgado MD ~ Hogshead Liner: Signed [facility]06-18-2025 Progress note [facility] Medical Records Department [address] [place] [address] Progress Note - Hospitalist 05/12/25 0935 MR#: [id number] Acct: [id number] Name: ITZEL ALONZO Rep #:[id number] : 1950 74 From: Anthony Kiser PCP: SID Haro Status:ADM IN Location: [place] [address] 1 Reason for Visit Reason for Visit: [...] 74.3 H, Lymph % (Auto) 18.4 L, Woodward % (Auto) 5.8, Eos % (Auto) 0.8, [...] associated with end-stage honeycomb fibrosis. Reading Location[facility] Physical Exam Narrative Seen and examined Patient has mild lethargic but wake up. Shortness of breath mild chest congestion. Diagnosed with aright suprahilar lung cancer, exact sampler/tissuetype unclear. Follows [place] oncologist, await path . Because of transportation [...] Patient is a 74-year-old male who presented [facility] ED on 05/11/2025 with worsening fatigue, weakness and confusion. 1. Large right-sided lung cancer with suspected postobstructive pneumonia ? Admit under inpatient status to PCU. Patient with known history of large right-sided lung cancer.Chest x-ray on admit with concern for acute postobstructive pneumonia in setting of lung cancer. Stable on room air at rest. Patient has established oncologist Dr. Lake, [facility]. I myself tried to contact through the transfer line 2 times but unsuccessful. Discussed with the child support case officer. [place] oncologist wanted CT head before transfer. In [...] As plan is for transfer to the [place], will hold on GI consult for now. [...] code, verified Expected disposition: Likely transfer to [place] Total time of the visit including total time spent in counseling or coordinationof care, (more than50% of the total time, spent in obtaining medical information from nurses and other ancillary care providers ,explaining to the patient about labs, imaging, diagnosis and management of active complexmedical conditions), effort to transfer [place] [facility], discussion with child support case officer, review of labs and imaging is 35 [...] 278 H Charges/Coding Visit Charges Inpatient E&M: 98250 Subs Hosp L3 05/12/25 1722 Cosigner Signature (if applicable): CC: ~ Signed [facility]06-18-2025 History and physical note Author Lane Stanley [facility] Note Date/Time May 12, 2025 12:4 6am [facility] Medical Records Department [address] [place] [address] H&P Exam - Hospitalist 05/11/251918 MR#: [id number] Acct: [id number] Name: ITZEL ALONZO Carlie Rep #:[id number] : 1950 74 From: Lane dunn DO PCP: SID Haro Status:ADM IN Location: [address] 1 HPI - General General Date of Admission: 05/11/25 Date of Service: 05/11/25 Chief Complaint: Worsening fatigue, weakness and confusion HPI Narrative ITZEL ALONZO, is a 74 M who presented to [facility] ED on 05/11/2025 with worsening [...] to his appointments with oncology at the [place]. He lives at home with his significant [...] phone with the transfer nurse with the [place] liliana goodman. Nurse noted that transfer could be initiated there but as the admitting physician was gone for the day, transfer will not happen until tomorrow at the earliest. [facility] Medical History (Updated 05/12/25 @ 00:00 by [...] budesonide-formoterol HFA 80 2 puff inhalation BID JAVA SOFTWARE ENGINEER D 05/09/21 Unknown History mcg-4.5 mcg/actuation aerosol [...] 74.3 H, Lymph % (Auto) 18.4 L, Woodward % (Auto) 5.8, Eos % (Auto) 0.8, [...] associated with end-stage honeycomb fibrosis. Reading Location[facility] Assessment & Plan Assessment/Plan (1) Lung cancer: (2) Hypercalcemia: (3) Acute on chronic anemia: PLAN: Plan Patient is a 74-year-old male who presented [facility] ED on 05/11/2025 with worsening [...] Patient has established with oncology at the [facility]. Has deferred treatment for the lung cancer up to this point. Discussed with patient and family extensively in the ED and noted to them that unfortunately his condition will continue to worsen without active chemotherapy or radiation therapy for this lung cancer. Patient was scheduled to follow-up with oncology at the [place] next week. Transfer has been initiated to the [place]. 2. Acute metabolic encephalopathy suspected secondary to [...] As plan is for transfer to the [place], will hold on GI consult for now. [...] code, verified Expected disposition: Likely transfer to [place] Total clinical time spent by myself addressing the patient's medical issues, reviewing all the data, and collaborating with patient's care team: 75 minutes. Charges/Coding Visit Charges Inpatient E&M: 10517 Init Hosp L3 05/12/25 0046 <Electronically signed by Lane Stanley DO> Cosigner Signature (if applicable): CC: SID Haji; Dr. Lane Stanley DO~ Signed [facility] Work Phone: 1(557) 177-888606-18-2025 History and physical note [facility] Medical Records Department [address] [place] [address] H&P Exam - Hospitalist 05/11/251918 MR#: [id number] Acct: [id number] Name: ITZEL ALONZO Rep #:[id number] : 1950 74 From: Lane dunn DO PCP: SID Haro Status:ADM [facility] HPI - General General Date of Admission: 05/11/25 Date of Service: 05/11/25 Chief Complaint: Worsening fatigue, weakness and confusion HPI Narrative ITZEL ALONZO, is a 74 M who presented to [facility] ED on 05/11/2025 with worsening [...] phone with the transfer nurse with the [place] briefly rex. Nurse noted that transfer could be initiated there but as the admitting physician was gone for the day, transfer will not happen until tomorrow at the earliest. [facility] Medical History (Updated 05/12/25 @ 00:00 by [...] budesonide-formoterol HFA 80 2 puff inhalation BID JAVA SOFTWARE ENGINEER D 05/09/21 Unknown History mcg-4.5 mcg/actuation aerosol [...] 74.3 H, Lymph % (Auto) 18.4 L, Woodward % (Auto) 5.8, Eos % (Auto) 0.8, [...] associated with end-stage honeycomb fibrosis. Reading Location: [facility] Assessment & Plan Assessment/Plan (1) Lung cancer: (2) Hypercalcemia: (3) Acute on chronic anemia: PLAN: Plan Patient is a 74-year-old male who presented [facility] ED on 05/11/2025 with worsening [...] negrete has established with oncology at the [facility]. Has deferred treatment for the lung cancerup to this point. Discussed with patient and family extensively in the ED and noted to them that unfortunately his condition will continue to worsen without active chemotherapy or radiation therapy for this lung cancer. Patient was scheduled to follow-up with oncology at the [place] next week. Transfer has been initiated to the [place]. 2. Acute metabolic encephalopathy suspected secondary to [...] As plan is for transfer to the [place], will hold on GI consult for now. [...] code, verified Expected disposition: Likely transfer to [place] Total clinical time spent by myself addressing the patient's medical issues, reviewing all the data, and collaborating with patient's care team: 75 minutes. Charges/Coding Visit Charges Inpatient E&M: 66157 Init Hosp L3 05/12/25 0046 Cosigner Signature (if applicable): CC: SID Haji; Dr. Lane Stanley, DO~ Signed [facility]06-18-2025 Consult note Author Clarke Montesinos [facility] Note Date/Time May 11, 2025 10:3 8pm [facility] Medical Records Department [address] [place] [address] Pharmacokinetic/Renal -Consult 05/11/257 MR#: [id number] Acct: [id number] Name: ITZEL ALONZO Carlie Rep #:[id number] : 1950 74 From: Clarke Bailon od PCP: SID Haro Status:ADM IN Location: [place] [address] Consult Antibiotic Management Pharmacy has been consulted [...] and time ordered]: 05/13 @ 0930 05/11/25 0365 <Electronically signed by Clarke rizzo> Date _ Clarke Bernstein Signature (if applicable): Date CC: ~ Signed [facility] Work Phone: 1(517) 601-529106-17-2025 Discharge summary Author Monty Clarke [facility] Note Date/Time May 11, 2025 9:07 pm [facility] Medical Records Department [address] [place] [address] Emergency Department Summary 05/11/25 MR#: [id number] Acct: [id number] Name: ITZEL ALONZO Rep #:[id number] : 1950 74 From: Monty Clarke MD PCP: SID Haro Status:ADM IN Location: [place] [id number] Monty Clarke MD on 05/11/25 at 2107 EKG was obtained 1709 interpreted by me at 1711. The EKG is normal. Rate is 91. CT interval, QRS duration, QT duration and axis are all normal. 05/11/252106<Electronically signed by Monty Clarke MD> Cosigner Signature (if applicable): cc: PLUMBING ENGINEERING DRAFTSPERSON-C Carlene Haji ~* Signed HPI History of [...] said something that was offensive to the snaker tractor driver . 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 Reading Location: [facility] EKG Initial EKG: Attestation: I personally reviewed and interpreted this EKG as follows: Interpretation: Sinus Rhythm (Sinus rhythm rate of 91. Normal EKG. CT interval 150 ms Rickers duration 90 ms. QT duration 3096 ms. [place] is normal. EKG is unchanged from prior. ) Prior: Changed (September 14, 2021) Management Discussion w/another healthcare provider: Hospitalist (Dr. Stanley requested Icontact Dr. 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 Call [facility] ([phone]) or report to the closest Emergency Room. Call 911 if necessary. 05/11/251840 <Electronically signed by Monty Clarke MD> Cosigner Signature (if applicable): CC: SID Haji ~ Signed [facility] Work Phone: 1(874) 805-738606-17-2025 Consult note [facility] Medical Records Department [address] [place] [address] Pharmacokinetic/Renal -Consult 05/11/252236 MR#: [id number] Acct: [id number] Name: ITZEL ALONZO Rep #:[id number] : 1950 74 From: Clarke Bailon od PCP: Carlene Haji, PLUMBING ENGINEERING DRAFTSPERSON-C Status:ADM IN Location: [place] [address] Consult Antibiotic Management Pharmacy has been consulted [...] Signature (if applicable): Date CC: ~ Signed [facility]06-17-2025 Evaluation note* Diagnosis Onset Date Resolution Status Admit Date Elevated troponin acute May 112024 7:20pm Exertional dyspnea acute April 252024 7:20pm Hypercalcemia acute May 11, 2025 7:20pm Lung cancer acute May 11 7:20pm Microcytic anemia acute May 112024 7:20pm Obstructive pneumonia acute Jamey e 2024 7:20pm Sinus tachycardia seen on cardiac rehabilitation specialist acute May 11, 2025 7:20pm Acute on chronic anemia chronic J une 2024 7:20pm [facility] Work Phone: [phone]) 931-462706-17-2025 Discharge summary [facility] Medical Records Department [address] [place] [address] Emergency Department Summary 05/11/25 MR#: [id number] Acct: [id number] Name: ITZEL ALONZO Rep #:[id number] : 1950 74 From: Monty Clarke MD PCP: SID Haro Status:ADM [facility] [address] Monty Clarke MD on 05/11/25 at 2107 EKG was obtained 1709 interpreted by la at 1711. The EKG is normal. Rate is 91. CT interval, QRS duration, QT duration and axis are all normal. 05/11/252106 Cosigner Signature (if applicable): cc: PLUMBING ENGINEERING DRAFTSPERSON-C Carlene Haji ~* Signed HPI History of [...] said something that was offensive to the snaker tractor driver . 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 He [...] Prior similar symptoms: No [facility] Medical History (Updated 05/11/25 @ 18:41 by [...] budesonide-formoterol HFA 80 2 puff inhalation BID JAVA SOFTWARE ENGINEER D 05/09/21 Unknown History mcg-4.5 mcg/actuation aerosol [...] 74.3 H Lymph % (Auto) 18.4 L [place] % (Auto) 5.8 Eos % (Auto) 0.8 [...] associated with end-stage honeycomb fibrosis. Reading Location: [facility] EKG Initial EKG: Attestation: I personally reviewed and interpreted this EKG as follows: Interpretation: Sinus Rhythm (Sinus rhythm rate of 91. Normal EKG. CT interval 150 ms Rickers duration 90 ms. QT duration 3096 ms. [place] is normal. EKG is unchanged from prior. ) Prior: Changed (September 14, 2021) Management Discussion w/another healthcare provider: Hospitalist (Dr. Stanley requested Icontact Dr. Robertson to make sure it is okay for me to admit this patient to [facility]) Additional Tests and Interventions Additional [...] EKG with elevated troponin), Discussing w/Patient &/or Family/[employer], Discussing w/Consultants and Arranging Admission or Transfer Discharge Plan Dx/Rx/DC Orders Clinical Impression: Obstructive pneumonia, Microcytic anemia, Acute on chronic anemia, Exertional dyspnea, Elevated troponin, Sinus tachycardia seen on cardiac rehabilitation specialist, Hypercalcemia, Lung cancer Disposition Disposition: [facility] What to do if you have Problems For any increased pain, shortness of breath, bleeding, nausea or vomiting, chestpain, or any unexpected problems, contact your Primary Care Provider. Call [facility] ([phone]) or report tothe closest Emergency Room. Call 911 if necessary. 05/11/25 1841 Cosigner Signature (if applicable): CC: PLUMBING ENGINEERING DRAFTSPERSON-C Carlene Haji ~ Signed [facility]06-17-2025 Discharge summary [facility] Medical Records Department [address] [place] [address] Emergency Department Summary 05/11/25 MR#: [id number] Acct: [id number] Name: ITZEL ALONZO Rep #:[id number] : 1950 74 From: Monty Clarke MD [...] said something that was offensive to the snaker tractor driver . 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 Reading Location: [facility] EKG Initial EKG: Attestation: I personally reviewed and interpreted this EKG as follows: Interpretation: Sinus Rhythm (Sinus rhythm rate of 91. Normal EKG. CT interval 150 ms Rickers duration 90 ms. QT duration 3096 ms. [place] is normal. EKG is unchanged from prior. ) Prior: Changed (September 14, 2021) Management Discussion w/another healthcare provider: Hospitalist (Dr. Stanley requested Icontact Dr. 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 Call [facility] ([phone]) or report tothe closest Emergency Room. Call 911 if necessary. 05/11/25 1841 Cosigner Signature (if applicable): CC: SID Haji ~ Signed [facility]06-17-2025 Radiology Diagnostic study note [facility] Imaging Services [address] [place] [address] Chest PA and Lateral MR#: [id number] Acct: [id number] Name: ITZEL ALONZO Rep #: [id number] : 1950 M 74 From: Pet er Peer DO PCP: SID Haro Status: REG ER Study:Chest PA and Lateral Date of Exam: 05/11/25 Exam# [id number] Ordering Dr: Karin Clarke MD PROCEDURE: CHEST [...] associated with end-stage honeycomb fibrosis. Reading Location: [facility] CC: SID Haji; Dr. 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 Reading [facility] EKG Initial EKG: Attestation: I personally reviewed and interpreted this EKG as follows: Interpretation: Sinus Rhythm (Sinus rhythm rate of 91. Normal EKG. CT interval 150 ms Rickers duration 90 ms. QT duration 3096 ms. [place] is normal. EKG is unchanged from prior. ) Prior: Changed (September 14, 2021) Management Discussion w/another healthcare provider: Hospitalist (Dr. Stanley requested Icontact Dr. 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 Call [facility] ([phone]) or report to the closest Emergency Room. Call 911 if necessary. 05/11/251840 <Electronically signed by Monty Clarke MD> Cosigner Signature (if applicable): CC: SID Haji ~ Signed [facility] Work Phone: 1(954) 563-972306-17-2025 Evaluation note* Diagnosis Onset Date Resolution Status Admit Date Elevated troponin acute May 112024 7:20pm Exertional dyspnea acute April 252024 7:20pm Hypercalcemia acute May 11, 2025 7:20pm Microcytic anemia acute May 112024 7:20pm Obstructive pneumonia acute Jamey e 2024 7:20pm Sinus tachycardia seen on cardiac rehabilitation specialist acute May 11, 2025 7:20pm Acute on chronic anemia chronic J une 2024 7:20pm [facility] Work Phone: 1(470) 289-245706-10-2025 Radiology Diagnostic study note [facility] Imaging Services [address] [place] [address] Brain/Head without Contrast MR#: [id number] Acct: [id number] Name: ITZEL ALONZO Rep #: [id number] : 1950 M 74 From: Bert Sloan MD PCP: SID Haro Status: REG ER Study:Brain/Head without Contrast Date of Exa m: 05/04/25 Exam# [id number] Ordering Dr: Ike Dawson DO PROCEDURE: BRAIN/HEAD [...] or other acute process noted. Reading Location: [address] CC: PLUMBING ENGINEERING DRAFTSPERSON-C Carlene Haji; DO Emanuel Tian Hogshead Liner: Signed [facility]06-10-2025 Radiology Diagnostic study note [facility] Imaging Services [address] [place] [id number] Spine Cervical without Contras MR#: [id number] Acct: [id number] Name: ITZEL ALONZO Rep #: [id number] : 1950 M 74 From: Juan Miguel Santos MD PCP: SID Haro Status: REG ER Study:Spine Cervical without Contras Date of Exam: 05/04/25 Exam# [id number] Ordering Dr: Ike Dawson DO PROCEDURE: SPINE [...] Right upper lobe pulmonary mass. Reading Location: [facility] CC: PLUMBING ENGINEERING DRAFTSPERSON-C Carlene Haji; Dr. Ike Dawson DO ~ Hogshead Liner: Signed [facility]06-10-2025 Radiology Diagnostic study note [facility] Imaging Services [address] [place] [address] Chest without Contrast MR#: [id number] Acct: [id number] Name: ITZEL ALONZO Rep #: [id number] : 1950 M 74 From: Juan Miguel Santos MD PCP: SID Haro Status: REG ER Study:Chest without Contrast Date of Exam: 05/04/25 Exam# [id number] Ordering Dr: Ike Dawson DO PROCEDURE: CHEST [...] at the right lung base. Reading Location: [place] [address] CC: PLUMBING ENGINEERING DRAFTSPERSONNissa Haji; Dr. Ike Dawson DO ~ Hogshead Liner: Signed [facility]06-10-2025 Radiology Diagnostic study note [facility] Imaging Services [address] [place] [address] Shoulder min 2 Views MR#: [id number] Acct: [id number] Name: ITZEL ALONZO Rep #: [id number] : 1950 M 74 From: Juan Miguel Santos MD PCP: Carlene Haji, IKE-C Status: REG ER Study:Shoulder min 2 Views Date of Exam: 05/04/25 Exam# [id number] Ordering Dr: Ike Dawson DO PROCEDURE: SHOULDER [...] witha CT scan recommended. Reading Location: [facility] CC: PLUMBING ENGINEERING DRAFTSPERSON-C Carlene Haji; Dr. Ike Dawson DO ~ Hogshead Liner: Signed [facility]05-30-2025 Radiology Diagnostic study note [facility] Imaging Services [address] [place] [address] [id number] STROKE CTA Head AND Neck W/Con MR#: [id number] Acct: [id number] Name: ITZEL ALONZO Rep #: [id number] : 1950 M 74 From: Oswald Perez MD PCP: Carlene Haji, PLUMBING ENGINEERING DRAFTSPERSON-C Status: REG ER Study:STROKE CTA Head AND Neck W/Con Date of Exam: 04/23/25 Exam# [id number] Ordering Dr: Steven Tejeda DO PROCEDURE: STROKE [...] occluded similar to the prior CTA. Anatomy: [place] [facility] [place] anatomy is normal. Aneurysm or [...] apical mass suspicious for malignancy. Reading Location: [id number] CC: PLUMBING ENGINEERING DRAFTSPERSON-C Carlene Haji; Dr. Steven Tejeda, DO ~ Hogshead Liner: Signed [facility]05-30-2025 Radiology Diagnostic study note [facility] Imaging Services [address] [place] [address] Chest 1 View (Portable) MR#: [id number] Acct: [id number] Name: ITZEL ALONZO Rep #: [id number] : 1950 M 74 From: Oswald Perez MD PCP: SID Haro Status: REG ER Study:Chest 1 View (Portable) Date of Exam: 04/23/25 Exam# [id number] Ordering Dr: Steven Tejeda DO PROCEDURE: CHEST [...] regions which may represent adenopathy. Reading Location: [id number] CC: SID Haji; Dr. Steven Tejeda, ~ Hogshead Liner: Signed [facility]05-30-2025 Radiology Diagnostic study note [facility] Imaging Services [address] [place] [id number] STROKE Brain/Head without Cont MR#: [id number] Acct: [id number] Name: ITZEL ALONZO Rep #: [id number] : 1950 M 74 From: Oswald Perez MD PCP: SID Haro Status: REG ER Study:STROKE Brain/Head without Cont Date of Exam: 04/23/25 Exam# [id number] Ordering Dr: Steven Tejeda DO PROCEDURE: STROKE [...] atrophy and chronic microvascular ischemia. Reading Location: [place] [address] CC: PLUMBING ENGINEERING DRAFTSPERSON-C Carlene Haji; Dr. Steven Tejeda, DO ~ Hogshead Liner: Signed [facility] Author Anthony Salgado [facility] Note Date/Time May 13, 2025 2:00 pm [facility] Medical Records Department [address] [place] [address] Discharge Summary 05/13/25 1257 MR#: [id number] Acct: [id number] Name: ITZEL ALONZO Rep #:[id number] : 1950 74 From: Anthony Kiser PCP: SID Haro Status:ADM IN Location: [place] [address] Providers Date of Admission: 05/11/25 Primary Care [...] Patient is a 74-year-old male who presented [facility] ED on 05/11/2025 with worsening fatigue, weakness and confusion. 1. Large right-sided lung cancer with suspected postobstructive pneumonia ? Admit under inpatient status to PCU. Patient with known history of large right-sided lung cancer. Chest x-ray on admit with concern for acute postobstructive pneumonia in setting of lung cancer. Stable on room air at rest. Patient has established oncologist Dr. Lake, [facility]. I myself tried to contact through the transfer line 2 times but unsuccessful. Discussed with the child support case officer. [place] oncologist wanted CT head before transfer. In [...] As plan is for transfer to the [place], will hold on GI consult for now. [...] code, verified Expected disposition: Likely transfer to [place] Patient is being transferred to [place] [facility] for further care and decision makingregarding [...] lung cancer, exact sampler/tissue type unclear. Follows [place] oncologist, await path . Because of transportation [...] 75.7 H, Lymph % (Auto) 16.4 L, [place] % (Auto) 6.5, Eos % (Auto) 0.9, [...] mass. No acute intracranial process. Reading Location: [id number] Instructions DC O2, CPAP, BIPAP Needs [...] constipation) Referrals / Follow Up: Carlene Haji, PLUMBING ENGINEERING DRAFTSPERSON-C [Primary Care Provider] - Disposition Discharge Orders: Discharge Patient (Routine); Ordered 05/12/25 Ordered By: Dr. Anthony Salgado Charges/Coding Visit Charges Inpatient E&M: 48841 Disch Hosp >30min 05/13/25 1400 <Electronically signed by Anthony Salgado MD> Cosigner Signature (if applicable): CC: SID Haji; Dr. Anthony Salgado MD~ Signed [facility] Work Phone: Evaluation noteNo assessment information available [facility] Work Phone: Hospital Discharge instructions Additional Instructions Your workup today indicates your dizziness is most likely from peripheral vertigo. Take the Valium as directed to help control any recurrent dizzy symptoms. Return to the ER should you have any further concerns. You may continue all of your other home medications as [facility] by [facility] Work Phone: Hospital Discharge instructions Additional Instructions [...] you. Use tramadol as needed for pain control.[facility] Work Phone: Reason for referral (narrative)No reason for referral information availableWKettering Health [facility] Work Phone: Chief Complaint and Reason for [...] Do you have a Healthcare Power of Assistant Laboratory Director? No April 23, 2025 9:07pm Advance Directive Response Recorded Date/ Time Do you have a Healthcare Power of Assistant Laboratory Director? No May 04, 2025 11:25am Do you have a Healthcare Power of Assistant Laboratory Director? No April 23, 2025 9:07pm Advance Directive Response Recorded Date/ Time Do you have a Healthcare Power of Assistant Laboratory Director? No May 04, 2025 11:25am Do you have a Healthcare Power of Assistant Laboratory Director? No May 11, 2025 2:29pm Do you have a Healthcare Power of Assistant Laboratory Director? No April 23, 2025 9:07pm Advance Directive Response Recorded Date/ Time Do you have a Healthcare Power of Assistant Laboratory Director? No May 04, 2025 11:25am Do you have a Healthcare Power of Assistant Laboratory Director? No May 11, 2025 8:16pm Do you have a Healthcare Power of Assistant Laboratory Director? No April 23, 2025 9:07pm Summary Purpose Family History No Family History Records Found Additional Source Comments Care Teams (unrecognized sec tion and content) Team Status: Active Member Role Status Dates Carlene N Adithya , PLUMBING ENGINEERING DRAFTSPERSON-C Primary Care Provider Active Team Status: Inactive Member Role Status Dates Dr. Steven Tejeda DO Emergency Provider Active Start: April 23, 2025 End: April 24, 2025 Carleneelly Haji , PLUMBING ENGINEERING DRAFTSPERSON-C Primary Care Provider Active Start: April 23, 2025 End: April 24, 2025 Team Status: Inactive Member Role Status Dates Dr. Steven Tejeda DO Attending Provider Active Start: April 23, 2025 End: April 24, 2025 Dr. Steven Tejeda , Emergency Provider Active Start: April 23, 2025 End: April 24, 2025 Carleneelly Haji , PLUMBING ENGINEERING DRAFTSPERSON-C Primary Care Provider Active Start: April 23, 2025 End: April 24, 2025 Team Status: Inactive Member Role Status Dates Carlene Sonya Haji , PLUMBING ENGINEERING DRAFTSPERSON-C Primary Care Provider Active Start: May 04, 2025 End: May 04, 2025 Dr. Ike Dawson DO Emergency Provider Active Start : May 04, 2025 End: May 04, 2025 Team Status: Inactive Member Role Status Dates Carleneelly Haji , PLUMBING ENGINEERING DRAFTSPERSON-C Primary Care Provider Active Start: May 04, 2025 End: May 04, 2025 Dr. Ike Dawson DO Attending Provider Active Start : May 04, 2025 End: May 04, 2025 Dr. Ike Dawson DO Emergency Provider Active Start : May 04, 2025 End: May 04, 2025 Team Status: Active Member Role Status Dates Carlene Haji , PLUMBING ENGINEERING DRAFTSPERSON-C Primary Care Provider Active Start: May 11, 2025 Dr. Monty Clarke MD Emergency Provider Active Sta rt: May 11, [address] Stanley DO Admit Provider Active Start: May 11, [address] Stanley DO Attending Provider Active Start: May 11, 2025 Team Status: Inactive Member Role Status Dates Carlene Haji PLUMBING ENGINEERING DRAFTSPERSON-C Primary Care Provider Active Start: May 11, [...] section and content) DATE CREATED AUTHOR 05/21/2025 [facility] FOR RECORDS PERTAINING TO PATIENTS WHO [...] BE BASED ON THE PRIMARY CLINICAL RECORDS. [facility] [employer] [facility]. provides no warranty or guarantee of the accuracy or completeness of information in this document.
[2025-07-03 23:28] VITALS: BMI 16.8
[2025-07-03 23:59] LABS: Magnesium 1.9 mg/dL (1.5-2.2); Pro- Brain NATRIURETIC PEPTIDE 372 pg/mL (<=1800)
[2025-07-04] VITALS (16 sets, daily range): BP systolic 105–170; BP diastolic 65–98; PULSE 78–112; RESP 16–21; TEMP 36–37.2; O2SAT 91–100; BMI 16.8; BMI 16.9
[2025-07-04] MEDS: 0.9% Normal Saline (1000mL) 1,000 ML 75 ML IV (02:09)
[2025-07-04 06:28] LABS: Hematocrit 25.5 % (40-54); Hemoglobin 7.7 g/dL (13.0-16.5); Immature Granulocytes Count 0.050 X10^3/uL (0.0-0.0); Mean Corp Hgb Conc 30.2 g/dL (32-36); Mean Corpuscular Volume 69.1 fL (80-94); Mean Platelet Vol. 9.5 fl (6.2-12.0); NRBC Flagged by Analyzer 0 % (0-5); POSITIVE MORPHOLOGY YES; Platelet Count 301 K/mm3 (150-450); RBC Distribution Width CV 22.7 % (11.6-14.6); RBC Distribution Width SD 55.5 fl (35.1-43.9); Red Blood Count 3.69 M/mm3 (4.6-6.2); White Blood Count 12.7 K/mm3 (4.4-11.0)
[2025-07-04 06:37] LABS: Differential Indicated SCAN CRITERIA MET
[2025-07-04 07:02] LABS: AST(SGOT) 18 U/L (<=37); Alanine Aminotransfer ALT/SGPT 9 U/L (<=46); Albumin, Serum 3.1 g/dL (3.4-4.8); Alkaline Phosphatase 124 U/L (40-129); Anion Gap 12 (5-15); BUN 13 mg/dL (4-19); BUN/Creat Ratio 16.4 RATIO (10-20); Calcium,Total 9.2 mg/dL (7.6-11.0); Carbon Dioxide 19.6 mmol/L (21.0-32.0); Chloride 103 mmol/L (98-108); Estimated Creatinine Clearance 63.55 ml/min (50-250); Ferritin 640 ng/mL (37-417); Globulin 5.8 g/dL (2.2-4.2); Glucose 174 mg/dL (70-99); Iron 17 ug/dL (65-175); Iron Binding Capacity,Unsat 146 ug/dL (228-428); Potassium 4.2 mmol/L (3.3-5.1)
[2025-07-04 07:03] LABS: Iron Binding Capacity,Total 163 ug/dL (250-450)
--- NOTE | 2025-07-04 07:21 | PCM.PN.HOSP ---
Reason for Visit Chief Complaint: Fall, R hip pain. Subjective Subjective Patient is a 75-year-old gentleman who experienced for with resultant right hip pain.Imaging studies obtained on admission did show Fracture of the right greater trochanter, extending into the intertrochanteric line. Admitted to regular nursing floor with consultation placed orthopedic surgeon Objective Data Objective Data Vital Signs: Vital Signs Temp Pulse Resp BP Pulse Ox O2 Del Method 99 F 108 H 18 149/88 H 94 Room Air 07/04/25 06:55 07/04/25 06:55 07/04/25 06:55 07/04/25 06:55 07/04/25 06:55 07/04/25 06:55 Oxygen Delivery Method Room Air Weight: 58.1 kg Body Mass Index (BMI) 16.9 Intake & Output: Intake and Output for Last 24 Hours 07/02/25 07/03/25 07/04/25 23:59 23:59 23:59 Intake Total 1000 / 1000 Output Total 1000 / 1000 Balance 0 / 0 Lab / Micro Data 07/04/25 05:27 07/04/25 05:27 Labs: Laboratory Results - last 24 hr 07/03/25 21:43: Urine Color Yellow, Urine Clarity Clear, Urine pH 6.0, Ur Specific [place] 1.010, Urine Protein 100 H, Urine Glucose (UA) 100 H, Urine Ketones Negative, Urine Occult Blood 10 H, Urine Nitrite Negative, Urine Bilirubin Negative, Urine Urobilinogen Normal, Ur Leukocyte Esterase Negative, Urine RBC 0-5 SEEN, Urine WBC 0-5 SEEN, Ur Squamous Epith Cells 0-5 SEEN, Urine Bacteria RARE, Hyaline Casts 0-5 SEEN, Urine Mucus 0 SEEN 07/03/25 21:46: WBC 12.7 H, RBC 3.95 L, Hgb 8.4 L, Hct 27.9 L, MCV 70.6 L, MCH 21.3 L, MCHC 30.1 L, RDW Std Deviation 56.9 H, RDW Coeff of Tiffany 22.6 H, Plt Count 300, MPV 9.1, Immature Gran % (Auto) 0.500, Neut % (Auto) 90.1 H, Lymph % (Auto) 6.3 L, [place] % (Auto) 2.8, Eos % (Auto) 0.1, Baso % (Auto) 0.2, Absolute Neuts (auto) 11.4 H, Absolute Lymphs (auto) 0.80 L, Nucleated RBC % 0, Differential Comment SCANNED, RBC Morphology RARE, Hypochromasia 1+, Anisocytosis 1+, Microcytosis 1+, [place] Cells RARE, PT 15.5 H, INR 1.2, APTT 22.7 L, Sodium 133, Potassium 4.8, Chloride 100, Carbon Dioxide 20.2 L, Anion Gap 13, BUN 14, Creatinine 0.86, Estim Creat Clear Calc 66.03, Est GFR (MDRD) Non-Af 89, BUN/Creatinine Ratio 16.8, Glucose 204 H, Calcium 9.7, Phosphorus 2.5 L, Magnesium 1.9, NT pro BNP II 372 07/04/25 01:05: POC Glucose 193 H 07/04/25 05:27: WBC 12.7 H, RBC 3.69 L, Hgb 7.7 L, Hct 25.5 L, MCV 69.1 L, MCH 20.9 L, MCHC 30.2 L, RDW Std Deviation 55.5 H, RDW Coeff of Tiffany 22.7 H, Plt Count 301, MPV 9.5, Immature Gran % (Auto) 0.400, Neut % (Auto) 84.5 H, Lymph % (Auto) 10.7 L, [place] % (Auto) 4.1, Eos % (Auto) 0.2, Baso % (Auto) 0.1, Absolute Neuts (auto) 10.7 H, Absolute Lymphs (auto) 1.35, Nucleated RBC % 0, Sodium 134, Potassium 4.2, Chloride 103, Carbon Dioxide 19.6 L, Anion Gap 12, BUN 13, Creatinine 0.78, Estim Creat Clear Calc 63.55, Est GFR (MDRD) Non-Af 92, BUN/Creatinine Ratio 16.4, Glucose 174 H, Calcium 9.2, Iron 17 L, TIBC 163 L, Iron Saturation 10.4, Unsaturated IBC 146 L, Ferritin 640 H, Total Bilirubin 0.45, AST 18, ALT 9, Alkaline Phosphatase 124, Total Protein 8.9 H, Albumin 3.1 L, Globulin 5.8 H, Albumin/Globulin Ratio 0.5 L, Blood Type Cancelled, Antibody Screen Cancelled Radiography Diagnostic Testing: Radiology Impression Hip/Pelvis X-Ray 07/03/25 20:20 IMPRESSION: Fracture of the right greater trochanter, extending into the intertrochanteric line. Malignancy can not be excluded. Reading Location: [facility] Lower Extremity CT 07/03/25 21:54 IMPRESSION: Acute, moderately comminuted and impacted right intertrochanteric femoral fracture. No aggressive osseous lesions. Reading Location: [facility] Physical Exam Narrative GENERAL: cooperative but frail looking HEENT: Atraumatic; normocephalic EYES; Anicteric, Normal Conjunctiva NECK; supple, normal thyroid, RESPIRATORY: Diminished to auscultation CARDIOVASCULAR: Regular S1 S2, GI: soft, normoactive bowel sounds, : Epperson catheter in place with hematuria; EXTREMITIES: No edema, no clubbing, MUSCULOSKELETAL: Right lower extremity externally rotate NEURO: Awake; no lateralizing signs. SKIN: No Rash PSYCH; Flat affect Assessment & Plan Assessment/Plan (1) Closed intertrochanteric fracture of right hip: (2) Fall: PLAN: Plan Patient is a 75-year-old gentleman who experienced for with resultant right hip pain.Imaging studies obtained on admission did show Fracture of the right greater trochanter, extending into the intertrochanteric line. Admitted to regular nursing floor with consultation placed orthopedic surgeon 1. Fall with right hip fracture .Imaging studies obtained on admission did show Fracture of the right greater trochanter, extending into the intertrochanteric line. Admitted to regular nursing floor treatment initiated with with immobilization, pain management consultation placed to orthopedic surgery. Decision regarding surgical intervention deferred to orthopedic surgery. - Patient perioperative Risk assessment as documented by admitting physician 2. Physical deconditioning/debility secondary to above ? Requested for PT OT eval and social work administrator to assist with discharge planning 3. Right sided lung cancer (suprahilar, unclear exact specific type) with associated hypercalcemia of malignancy [facility] Patient to resume care following discharge 4. Hematuria ? Apparently traumatic following Epperson catheter insertion plan is to initiate CBI if hematuria does not resolve 5. Anemia ? Secondary to chronic disorder/anemia of malignancy. Patient was typed and crossmatched for 2 unit PRBC, subsequently monitoring H&H and transfuse if patient becomes symptomatic or hemoglobin falls below 7 6. Diabetes mellitus type II -patient's oral hypoglycemics held. Placed on long acting insulin, Accu-Cheks a.c. and at bedtime and covered with sliding scale insulin 7. Tobacco dependence ? Counseled on cessation, offered nicotine patch for tobacco cravings 8. GERD ? On PPI 9. COPD ? Not in exacerbation aerosol treatments as needed 10. Dyslipidemia ? Patient is on atorvastatin did continue home dose 11. 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 Restless leg syndrome ? Patient is on ropinirole we will continue 13. Severe protein calorie malnutrition ? Evidenced by reduced BMI muscle wasting and decreased oral intake. Consult placed to dietitian Time spent in the patient's overall evaluation,decision-making process, review of diagnostic data, adjustment of management, discussion with other providers, nursing nursing and ancillary staff involved in patient's care documentation, 50 Minutes Charges/Coding Visit Charges Inpatient E&M: [id number] [facility] Hosp L3
[2025-07-04] MEDS: Budesonide Respules 0.5 MG/2 ML AMPUL.NEB. INHALATION ×2 (07:34→19:17)
--- NOTE | 2025-07-04 07:42 | PRE.ANES_ITS ---
ASA Classification* ASA Classification ASA Classification: 3 and E Assessment & Plan Anesthesia* Anesthesia Assessment Anesthesia Assessment: Discussed sedation and/or anesthesia options, risks, benefits, and alternatives with patient/parents/legal guardian/POA. Questions invited. The patient/parents/legal guardian/POA seems to understand and agrees to proceed with anesthesia plan. Reviewed the physical assessment, medical history, allergy history and patient home medications list prior to surgery/procedure/anesthetic and documented any changes. Performed airway and anesthesia risk assessments. Anesthesia Type Anesthesia Type: Spinal (ga bkup) Anesthesia Focused Assessment* Temperature: 99 F Pulse Rate: 107 Blood Pressure: 149/88 Respiratory Rate: 20 Pulse Ox: 93 Airway Assessment Mouth opens: >3 cm Mallampati Score: II Labs Anesthesia Preop lab: CBC WBC 12.7 K/mm3 (4.4-11.0) H 07/04/25 05: 5 RBC 3.69 M/mm3 (4.6-6.2) L 07/04/25 05:27 07/04/25 Hgb 7.7 g/dL (13.0-16.5) L 07/04/25 05:27 07/04/25 Hct 25.5 % (40-54) L 07/04/25 05:27 07/04/25 Plt Count 301 K/mm3 (150-450) 07/04/25 05:27 07/04/25 CHEMISTRY Potassium 4.2 mmol/L (3.3-5.1) 07/04/25 05:27 07/04/25 Sodium 134 mmol/L (133-145) 07/04/25 05:27 07/04/25 Magnesium 1.9 mg/dL (1.5-2.2) 07/03/25 21:46 07/03/25 Phosphorus 2.5 mg/dL (2.7-4.5) L 07/03/25 21:46 07/03/25 BUN 13 mg/dL (4-19) 07/04/25 05:27 07/04/25 Creatinine 0.78 mg/dL (0.70-1.20) 07/04/25 05:27 07/04/25 Glucose 174 mg/dL (70-99) H 07/04/25 05:27 07/04/25 POC Glucose 166 mg/dL (74-106) H 07/04/25 06:47 07/04/25 TSH 0.88 uIU/mL (0.358-3.74) 05/09/21 14:37 COAG PT 15.5 SECONDS (11.7-14.9) H 07/03/25 21:46 0808/19 Pre-Assessment Diagnosis/Proposed Procedure Planned Operative Procedure(s): Gamma nail hip fracure Anesthesia History Anesthesia History - home health care social worker: Anesthesia History - home health care social worker Hx Hospitalization Any Problems With Anesthesia Yes: Pt gets confused. 07/04/25 00:46 Cholinesterase deficiency No 07/04/25 00:46 You/Your Family Experience No 07/04/25 00:46 fever (hyperthermia) with Relationship Recent Exposure to Contagious No 07/04/25 00:46 Disease Does patient have nerve No 07/04/25 00:46 stimulator Patient instructed to have device shut off --Does patient have Pacemaker No 07/03/25 23:28 or ICD? When Was Last Pacemaker Check QUESTION #4 FULL TEXT: You/Your Family Experience fever (hyperthermia) with Anesthesia Last Oral Intake Last Oral intake: Last Oral Intake NPO since 00:00 07/03/25 23:28 Meds taken in AM with sips of water? Meds patient instructed to take am of surgery PONV PONV - home health care social worker: PONV - home health care social worker Female HX of Motion Sickness HX of N/V After Surgery Non-Smoker Duration of Surgery greater than 60 minutes Number of Risk Factors PONV Score Height & Weight Height & Weight: Anesthesia: Height & Weight Height 6 ft 1 in 07/04/25 00:20 Weight: 58.1 kg 07/04/25 05:45 Body Mass Index (BMI) 16.9 07/04/25 05:45 Respiratory Assessment Respiratory Assessment - home health care social worker: Respiratory Tract Infection Hx - home health care social worker Hx Respiratory Tract Infection No 07/04/25 00:46 STOP Sleep Apnea STOP Sleep Apnea - home health care social worker: STOP Sleep Apnea - home health care social worker Hx Hypertension Yes 07/04/25 07:08 Hx Sleep Apnea Yes 07/04/25 00:20 CPAP No 07/04/25 00:20 BIPAP No 07/04/25 00:20 Do you snore loudly (louder Yes 07/04/25 00:20 than talking or can be heard Do you often feel tired/ fatigued/ sleepy during daytime? Has anyone observed you stop breathing during sleep? STOP Results Positive 07/04/25 00:20 QUESTION #5 FULL TEXT : Do you snore loudly (louder than talking or can be heard through closed doors)? 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 Specify any problems Hx of Preganancy in last 3 N/A 07/04/25 00:20 Months Nurse Filling Out Transfusion [id number] 07/04/25 00:20 & Questions: Date: 07/04/25 07/04/25 00:20 Time: 00:34 07/04/25 00:20 Patient unable to answer at this time (ie. confused, unrespo /Reproduction History /Reproductive History - home health care social worker: /Reproductive Hx- home health care social worker Hx Now No 07/04/25 00:46 Gestational Age (in weeks): EDC: Hx Hx Para Hx Section SAB No 07/04/25 00:46 Active Medications Active Medications: Current Medications Generic Name Dose Route Start Last Admin Trade Name Freq PRN Reason Stop Dose Admin Acetaminophen 650 mg 07/03/25 23:57 Acetaminophen 325 Mg Tablet PO Q4H PRN PRN Fever, pain 1-09/03 Al Hydroxide/Mg Hydroxide 30 ml 07/03/25 23:57 Mag Hydrox/Al Hydrox/Simeth 30 Ml Udc PO Q6H PRN PRN Gastric Burning Albuterol Sulfate 2.5 mg 07/03/25 23:57 Albuterol 2.5 Mg/3 Ml Vial.Neb. INHALATION Q2H PRN PRN Dyspnea, wheezing Amlodipine Besylate 10 mg 07/04/25 22:00 Amlodipine 10 Mg Tablet PO QHS [facility] Protocol Atorvastatin Calcium 80 mg 07/04/25 22:00 Atorvastatin Calcium 80 Mg Tablet PO QHS [facility] Budesonide 0.5 mg 07/03/25 23:57 07/04/25 07:34 Budesonide Respules 0.5 Mg/2 Ml Ampul.Neb. INHALATION 0.5 mg BID.RT CAMMIE Administration Calamine/Phenol 1 applic 07/04/25 10:00 Menthol/Lanolin/Calamine/Znox 113 Gm Tube TOPICAL 4X/DAY [facility] Protocol Calcium Carbonate 1,500 mg 07/04/25 10:00 Calcium (Elemental) 500 Mg Tablet PO DAILY [facility] Cyclobenzaprine HCl 10 mg 07/04/25 07:37 Cyclobenzaprine Hcl 10 Mg Tablet PO TID PRN muscle spasms Gabapentin 300 mg 07/04/25 14:00 Gabapentin 300 Mg Capsule PO TID [facility] Glucagon 1 mg 07/03/25 23:57 Glucagon 1 Mg/Ml Syringe IM X1 PRN HYPOGLYCEMIA Protocol Guaifenesin 20 ml 07/03/25 23:57 Guaifenesin 10 Ml Udc (200mg/10ml) PO Q4H PRN PRN COUGH Hydralazine HCl 10 mg 07/03/25 23:57 Hydralazine 20 Mg/Ml Vial IV Q4H PRN PRN SBP > 160 Protocol Tranexamic Acid 1,000 mg/ 110 mls @ 440 mls/hr 07/04/25 10:00 Sodium Chloride IV 07/04/25 10:14 X1 ONE Cefazolin Sodium 2 gm/ Sodium 110 mls @ 200 mls/hr 07/04/25 10:00 Chloride IV 07/04/25 10:32 X1 ONE Sodium Chloride 1,000 mls @ 75 mls/hr 07/03/25 23:57 07/04/25 02:09 IV 07/04/25 13:16 75 mls/hr .[id number] CAMMIE Administration Dextrose 250 mls @ 0 mls/hr 07/03/25 23:57 Dextrose 10%-Water IV .Q0M PRN HYPOGLYCEMIA Protocol As Directed Sodium Chloride 250 mls @ 15 mls/hr 07/04/25 00:53 IV .[id number] PRN Saline Flush Sodium Chloride 250 mls @ 15 mls/hr 07/04/25 00:53 IV .[id number] PRN Additional IVPB Infusion Insulin Human Lispro 0 unit 07/04/25 07:00 07/04/25 06:56 Insulin Lispro 100 Unit/Ml Insuln.Pen SC Not Given ACHS [facility] Protocol Magnesium Hydroxide 5 ml 07/04/25 07:37 Magnesium Hydroxide 30 Ml Udc PO DAILY PRN constipation Melatonin 3 mg 07/03/25 23:57 Melatonin 3 Mg Tablet PO QHS PRN PRN INSOMNIA Morphine Sulfate 2 - 4 mg 07/03/25 23:57 07/04/25 06:55 Morphine 4 Mg/Ml Syringe IV 4 mg Q2H PRN PRN Administration Pain Score 4-10 Nicotine mg 07/04/25 10:00 Nicotine 14 Mg Patch TD DAILY [facility] Non-Formulary Medication 90 mcg 07/04/25 07:45 Albuterol INHALATION Q4H PRN [facility] Non-Formulary Medication 325 mg 07/04/25 07:45 Ferrous Sulfate [Feosol] PO .every other day [facility] Non-Formulary Medication 1 mg 07/04/25 22:00 Ropinirole PO QHS [facility] Non-Formulary Medication 1 drp 07/04/25 22:00 Cyclopentolate LEFT EYE QHS [facility] Non-Formulary Medication 1 drp 07/04/25 10:00 Polyvinyl Alcohol-Povidone OPHTHALMIC 4X/DAY [facility] Non-Formulary Medication 1 drp 07/04/25 07:45 Prednisolone Acetate LEFT EYE Q6H [facility] Ondansetron HCl 4 mg 07/03/25 23:57 Ondansetron 4 Mg/2 Ml Vial IV Q8H PRN PRN NAUSEA/VOMITING Oxycodone HCl 5 - 10 mg 07/03/25 23:57 Oxycodone 5 Mg Tablet PO Q4H PRN PRN Pain Score 4-10 Pantoprazole Sodium 40 mg 07/04/25 10:00 Pantoprazole Sodium 40 Mg Tablet PO DAILY [facility] Polyethylene Glycol 17 gm 07/04/25 10:00 Polyethylene Glycol 3350 17 Gm Packet PO DAILY [facility] Senna/Docusate Sodium 2 tablet 07/04/25 10:00 Senna/Docusate Sodium 1 Tablet PO BID CAMMIE Sodium Chloride 10 - 40 ml 07/04/25 00:53 0.9% Saline Lock 10 Ml Syringe IV UD PRN SALINE FLUSH PFSH Medical History CKD (chronic kidney disease), stage II Chronic anemia Cancer of right lung Anxiety and depression GERD (gastroesophageal reflux disease) Cirrhosis Former smoker TIA (transient ischemic attack) Kidney stones Neuropathy PTSD (post-traumatic stress disorder) Hepatitis COPD (chronic obstructive pulmonary disease) Hypertension Diabetes Home Medications ?Medication ?Instructions ?Recorded ?Last Taken ?Type gabapentin 300 mg capsule 300 mg PO TID neuropathy 01/0907/02/25 21:00 History amlodipine 5 mg tablet 10 mg PO QHS blood pressure 05/09/21 07/02/25 21:00 History 10 mg aspirin 81 mg tablet,delayed 81 mg PO DAILY heart heal th 05/09/21 07/02/25 History release budesonide-formoterol HFA 80 2 puff inhalation BID [employer]PERATIONS [employer]ENT D 05/09/21 07/02/25 History mcg-4.5 mcg/actuation aerosol inhaler (Symbicort) cyclobenzaprine 10 mg tablet 10 mg PO TID PRN muscle s pasms 05/09/21 07/02/25 History sildenafil 100 mg tablet 100 mg PO DAILY PRN Erectile 05/09/21 07/02/25 History Dysfunction atorvastatin 80 mg tablet 80 mg PO QHS cholesterol #90 tabs 05/12/21 07/02/25 21:00 Rx insulin aspart U-100 100 unit/mL 10 unit subcut TIDCM DM 12/12/24 07/02/25 History (3 mL) subcutaneous pen (Novolog FlexPen U-100 Insulin aspart) insulin glargine 100 unit/mL (3 10 unit subcut QPM Dm 05/04/25 07/02/25 History mL) subcutaneous pen (Lantus Solostar U-100 Insulin) magnesium hydroxide 400 mg/5 mL 5 ml PO DAILY PRN cons tipation 05/04/25 07/02/25 History oral suspension (Gentle Laxative (magnesium hydroxide)) ropinirole 1 mg tablet 1 mg PO QHS rls 05/04/2507/19 History acetaminophen 325 mg tablet 650 mg PO Q4H PRN pain 09/18 Unknown History albuterol 90 mcg/actuation aerosol 90 mcg inhalation Q 4H PRN sob 07/04/25 Unknown History inhaler calcium carbonate 1,500 mg PO DAILY supplement 07/04/25 07/02/25 History cyclopentolate 2 % eye drops 1 drp LEFT EYE QHS inflam ation 07/04/25 07/02/25 History ferrous sulfate 325 mg (65 mg 325 mg PO .every other d ay 07/04/25 Unknown History iron) tablet (Feosol) supplement lidocaine 5 % topical patch 2 patch topical DAILY PRN pain 07/04/25 Unknown History melatonin 3 mg tablet 3 mg PO QHS sleep 07/04/25 0 07/02/25 History nicotine 14 mg/24 hr daily 1 patch transdermal DAILY s moking 07/04/25 Unknown History transdermal patch (Nicoderm CQ) cessation oxycodone 5 mg tablet 5 mg PO Q6H PRN pain 5 07/02/25 History pantoprazole 40 mg tablet,delayed 40 mg PO DAILY heart burn 07/04/25 07/02/25 History release (Protonix) polyethylene glycol 3350 17 gram 17 g PO DAILY constip ation 07/04/25 07/02/25 History oral powder packet polyvinyl alcohol-povidone 1.4 1 drp ophthalmic (eye) 4X/DAY dry 07/04/25 07/02/25 History %-0.6 % eye drops eye prednisolone acetate 1 % eye 1 drp LEFT EYE Q6H inflam ation 07/04/25 07/02/25 History drops,suspension sennosides 8.6 mg-docusate sodium 2 tab-cap PO DAILY s tool softener 07/04/25 06/25/25 History 50 mg tablet (Senna with Docusate Sodium) tiotropium 2.5 mcg-olodaterol 2.5 2 puff inhalation DA MANDO asthma 07/04/25 07/02/25 History mcg/actuation mist for inhalation Allergy/AdvReac Type Severity Reaction Status Date / Time No Known Allergies Allergy Verified 05/11/25 14:05 Family History Mother CVA (cerebral vascular accident) Family History other Surgical History Hx of appendectomy Social History household members: none housing: apartment Smoking Status: Current some day smoker tobacco type: cigarettes and cigars alcohol intake: never substance use type: does not use Review of Systems (Anesthesia) ROS Narrative System reviewed and no additional complaints, except as documented.
[2025-07-04 08:26] LABS: Anisocytosis 1+
[2025-07-04 09:01] LABS: Prothrombin Time (Protime)PT. 16.4 SECONDS (11.7-14.9)
--- NOTE | 2025-07-04 09:40 | NURSING ---
0930 report given to Surgery Rashmi Messina RN
--- NOTE | 2025-07-04 09:59 | CON.PCM.OR_ITS ---
HPI Consult Data Date of Consult: 07/04/25 HPI Narrative HPI Narrative: ITZEL ALONZO, is a 75 M who presents after sustaining a mechanical fall on July 03, 2025. Patient denies pre-existing right hip pain. He does have a history of lung cancer. To their knowledge she has no metastatic process. Reportedly he does have calcifications in his brain. According to his he falls quite often. He was not able to walk yesterday after falling. He was brought to the hospital diagnosed with a hip fracture. Orthopedics was appropriately consulted. Patient admitted to the medical service. [facility] Medical History CKD (chronic kidney disease), stage II Chronic anemia Cancer of right lung Anxiety and depression GERD (gastroesophageal reflux disease) Cirrhosis Former smoker TIA (transient ischemic attack) Kidney stones Neuropathy PTSD (post-traumatic stress disorder) Hepatitis COPD (chronic obstructive pulmonary disease) Hypertension Diabetes Home Medications ?Medication ?Instructions ?Recorded ?Last Taken ?Type gabapentin 300 mg capsule 300 mg PO TID neuropathy 01/0907/02/25 21:00 History amlodipine 5 mg tablet 10 mg PO QHS blood pressure 05/09/21 07/02/25 21:00 History 10 mg aspirin 81 mg tablet,delayed 81 mg PO DAILY heart heal th 05/09/21 07/02/25 History release budesonide-formoterol HFA 80 2 puff inhalation BID CONCRETE ENGINEER D 05/09/21 07/02/25 History mcg-4.5 mcg/actuation aerosol inhaler (Symbicort) cyclobenzaprine 10 mg tablet 10 mg PO TID PRN muscle s pasms 05/09/21 07/02/25 History sildenafil 100 mg tablet 100 mg PO DAILY PRN Erectile 05/09/21 07/02/25 History Dysfunction atorvastatin 80 mg tablet 80 mg PO QHS cholesterol #90 tabs 05/12/21 07/02/25 21:00 Rx insulin aspart U-100 100 unit/mL 10 unit subcut TIDCM DM 12/12/24 07/02/25 History (3 mL) subcutaneous pen (Novolog FlexPen U-100 Insulin aspart) insulin glargine 100 unit/mL (3 10 unit subcut QPM Dm 05/04/25 07/02/25 History mL) subcutaneous pen (Lantus Solostar U-100 Insulin) magnesium hydroxide 400 mg/5 mL 5 ml PO DAILY PRN cons tipation 05/04/25 07/02/25 History oral suspension (Gentle Laxative (magnesium hydroxide)) ropinirole 1 mg tablet 1 mg PO QHS rls 05/04/2507/19 History acetaminophen 325 mg tablet 650 mg PO Q4H PRN pain 09/18 Unknown History albuterol 90 mcg/actuation aerosol 90 mcg inhalation Q 4H PRN sob 07/04/25 Unknown History inhaler calcium carbonate 1,500 mg PO DAILY supplement 07/04/25 07/02/25 History cyclopentolate 2 % eye drops 1 drp LEFT EYE QHS inflam ation 07/04/25 07/02/25 History ferrous sulfate 325 mg (65 mg 325 mg PO .every other d ay 07/04/25 Unknown History iron) tablet (Feosol) supplement lidocaine 5 % topical patch 2 patch topical DAILY PRN pain 07/04/25 Unknown History melatonin 3 mg tablet 3 mg PO QHS sleep 07/04/25 0 07/02/25 History nicotine 14 mg/24 hr daily 1 patch transdermal DAILY s moking 07/04/25 Unknown History transdermal patch (Nicoderm CQ) cessation oxycodone 5 mg tablet 5 mg PO Q6H PRN pain 5 07/02/25 History pantoprazole 40 mg tablet,delayed 40 mg PO DAILY heart burn 07/04/25 07/02/25 History release (Protonix) polyethylene glycol 3350 17 gram 17 g PO DAILY constip ation 07/04/25 07/02/25 History oral powder packet polyvinyl alcohol-povidone 1.4 1 drp ophthalmic (eye) 4X/DAY dry 07/04/25 07/02/25 History %-0.6 % eye drops eye prednisolone acetate 1 % eye 1 drp LEFT EYE Q6H inflam ation 07/04/25 07/02/25 History drops,suspension sennosides 8.6 mg-docusate sodium 2 tab-cap PO DAILY s tool softener 07/04/25 06/25/25 History 50 mg tablet (Senna with Docusate Sodium) tiotropium 2.5 mcg-olodaterol 2.5 2 puff inhalation DA MANDO asthma 07/04/25 07/02/25 History mcg/actuation mist for inhalation Allergy/AdvReac Type Severity Reaction Status Date / Time No Known Allergies Allergy Verified 05/11/25 14:05 Family History Mother CVA (cerebral vascular accident) Family History other Surgical History Hx of appendectomy Social History household members: none housing: apartment Smoking Status: Current some day smoker tobacco type: cigarettes and cigars alcohol intake: never substance use type: does not use ROS ROS Narrative Patient has chronic cough, chronic shortness of breath. Denies pre-existing hip pain. Does have lower extremity neuropathy with numbness and tingling. Denies recent changes otherwise to eyes ears nose or throat heart or lungs bowel or bladder. Vital Signs Vital Signs Vital Signs: 07/03/25 19:10 07/03/25 21:09 07/03/25 23:00 Temperature 98.7 F Temperature Source Oral Pulse Rate 113 H 116 H 115 H Pulse Strength Respiratory Rate 18 20 H 22 H Respiratory Effort Respiratory Depth Respiratory Pattern Blood Pressure 185/93 H 160/98 H 160/90 H Blood Pressure Mean 123 118 113 Blood Pressure Source Blood Pressure Position Blood Pressure Location Pulse Ox 95 93 96 Oxygen Delivery Method Room Air Room Air Room Air 07/03/25 23:03 07/04/25 00:30 07/04/25 00:30 Temperature 98.3 F 97.4 F L Temperature Source Oral Pulse Rate 115 H 110 H 110 H Pulse Strength Respiratory Rate 22 H 21 H 21 H Respiratory Effort Normal Respiratory Depth Normal Respiratory Pattern Tachypnea Blood Pressure 160/90 H 157/95 H Blood Pressure Mean 113 115 Blood Pressure Source Monitor Blood Pressure Position Semi-Fowlers Blood Pressure Location Right Arm Pulse Ox 96 95 95 Oxygen Delivery Method Room Air Room Air 07/04/25 06:55 07/04/25 07:35 07/04/25 07:35 Temperature 99 F Temperature Source Temporal Pulse Rate 108 H 107 H Pulse Strength Respiratory Rate 18 20 H Respiratory Effort Respiratory Depth Respiratory Pattern Normal Blood Pressure 149/88 H Blood Pressure Mean 108 Blood Pressure Source Monitor Blood Pressure Position Semi-Fowlers Blood Pressure Location Right Arm Pulse Ox 94 93 Oxygen Delivery Method Room Air Room Air 07/04/25 07:42 07/04/25 08:30 07/04/25 09:30 Temperature 99 F 98 F Temperature Source Oral Pulse Rate 107 H 80 100 Pulse Strength Respiratory Rate 20 H 18 18 Respiratory Effort Normal Respiratory Depth Normal Respiratory Pattern Normal Blood Pressure 149/88 H 160/80 H Blood Pressure Mean 106 Blood Pressure Source Monitor Blood Pressure Position Semi-Fowlers Blood Pressure Location Left Arm Pulse Ox 93 95 94 Oxygen Delivery Method Room Air Room Air 07/04/25 09:30 Temperature Temperature Source Pulse Rate Pulse Strength Normal (2+) Respiratory Rate Respiratory Effort Respiratory Depth Respiratory Pattern Blood Pressure Blood Pressure Mean Blood Pressure Source Blood Pressure Position Blood Pressure Location Pulse Ox Oxygen Delivery Method Weight Weight: 58.1 kg Body Mass Index (BMI) 16.9 Physical Exam Narrative Patient seen with his present. He is alert and oriented x 3 and cooperative with exam. He has right hip pain on palpation. He has shortening and external rotation of the right hip. He has SCDs on. Left hip has no pain. He can gently plantarflex and dorsiflex toes and ankles. Skin is intact about the right hip. No calf pain. Negative Homans' sign. Medical Records Data Attestation: I reviewed the patient's medical records Lab / Micro Data Attestation: I reviewed the patient's lab results. 07/04/25 05:27 07/04/25 05:27 Labs: Laboratory Results - last 24 hr 07/03/25 21:43: Urine Color Yellow, Urine Clarity Clear, Urine pH 6.0, Ur Specific [place] 1.010, Urine Protein 100 H, Urine Glucose (UA) 100 H, Urine Ketones Negative, Urine Occult Blood 10 H, Urine Nitrite Negative, Urine Bilirubin Negative, Urine Urobilinogen Normal, Ur Leukocyte Esterase Negative, Urine RBC 0-5 SEEN, Urine WBC 0-5 SEEN, Ur Squamous Epith Cells 0-5 SEEN, Urine Bacteria RARE, Hyaline Casts 0-5 SEEN, Urine Mucus 0 SEEN 07/03/25 21:46: WBC 12.7 H, RBC 3.95 L, Hgb 8.4 L, Hct 27.9 L, MCV 70.6 L, MCH 21.3 L, MCHC 30.1 L, RDW Std Deviation 56.9 H, RDW Coeff of Tiffany 22.6 H, Plt Count 300, MPV 9.1, Immature Gran % (Auto) 0.500, Neut % (Auto) 90.1 H, Lymph % (Auto) 6.3 L, Hardin % (Auto) 2.8, Eos % (Auto) 0.1, Baso % (Auto) 0.2, Absolute Neuts (auto) 11.4 H, Absolute Lymphs (auto) 0.80 L, Nucleated RBC % 0, Differential Comment SCANNED, RBC Morphology RARE, Hypochromasia 1+, Anisocytosis 1+, Microcytosis 1+, Peapack Cells RARE, PT 15.5 H, INR 1.2, APTT 22.7 L, Sodium 133, Potassium 4.8, Chloride 100, Carbon Dioxide 20.2 L, Anion Gap 13, BUN 14, Creatinine 0.86, Estim Creat Clear Calc 66.03, Est GFR (MDRD) Non-Af 89, BUN/Creatinine Ratio 16.8, Glucose 204 H, Calcium 9.7, Phosphorus 2.5 L, Magnesium 1.9, NT pro BNP II 372 07/04/25 01:05: POC Glucose 193 H 07/04/25 05:27: WBC 12.7 H, RBC 3.69 L, Hgb 7.7 L, Hct 25.5 L, MCV 69.1 L, MCH 20.9 L, MCHC 30.2 L, RDW Std Deviation 55.5 H, RDW Coeff of Tiffany 22.7 H, Plt Count 301, MPV 9.5, Immature Gran % (Auto) 0.400, Neut % (Auto) 84.5 H, Lymph % (Auto) 10.7 L, Hardin % (Auto) 4.1, Eos % (Auto) 0.2, Baso % (Auto) 0.1, Absolute Neuts (auto) 10.7 H, Absolute Lymphs (auto) 1.35, Nucleated RBC % 0, Platelet Estimate ADEQUATE, Anisocytosis 1+, Sodium 134, Potassium 4.2, Chloride 103, C arbon Dioxide 19.6 L, Anion Gap 12, BUN 13, Creatinine 0.78, Estim Creat Clear Calc 63.55, Est GFR (MDRD) Non-Af 92, BUN/Creatinine Ratio 16.4, Glucose 174 H, Calcium 9.2, Iron 17 L, TIBC 163 L, Iron Saturation 10.4, Unsaturated IBC 146 L, Ferritin 640 H, Total Bilirubin 0.45, AST 18, ALT 9, Alkaline Phosphatase 124, T otal Protein 8.9 H, Albumin 3.1 L, Globulin 5.8 H, Albumin/Globulin Ratio 0.5 L, Blood Type Cancelled, Antibody Screen Cancelled 07/04/25 06:47: POC Glucose 166 H 07/04/25 07:50: PT 16.4 H, INR 1.3, Hemoglobin A1c 8.2 H, Blood Type O POSITIVE, Antibody Screen NEGATIVE Imaging Radiology Impression Hip/Pelvis X-Ray 07/03/25 20:20 IMPRESSION: Fracture of the right greater trochanter, extending into the intertrochanteric line. Malignancy can not be excluded. Reading Location: [facility] Lower Extremity CT 07/03/25 21:54 IMPRESSION: Acute, moderately comminuted and impacted right intertrochanteric femoral fracture. No aggressive osseous lesions. Reading Location: [facility] Assessment & Plan Assessment/Plan (1) Closed intertrochanteric fracture of right hip: QUALIFIERS: Encounter type: initial encounter Fracture alignment: displaced Qualified Code(s): S72.141A - Displaced intertrochanteric fracture of right femur, initial encounter for closed fracture PLAN: His diagnosis and treatment options regarding his right hip intertrochanteric fracture discussed with him and his . Surgical and nonsurgical options discussed. They would like to proceed with surgical intervention. They understand this could be a pathologic fracture which could mean bone cancer./Metastatic process. They understand most likely we will not have a better understanding after surgery. Based on the x-rays and CAT scan and pre-existing hip having no pain, I believe this most likely is not a pathologic fracture. Risk of surgery including but not limited to from operative or postoperative complications. Risk of anesthetic complications such as heart attacks, strokes, seizures, or . Risk of infections. Risk of damage to nerves arteries tendons. Risk of inadvertent fractures or dislocations. Risk of bone or wound healing complications. Possibility of nonunion malunion pain stiffness weakness. Possible need for further surgery such as hardware removal. Risk of DVT PE and other potential complications could lead to or disability explained. No guarantees were stated or implied. All of their questions were answered. Appropriate informed consent was obtained and signed for surgical intervention. We will use Ancef for perioperative antibiotic. We will plan to use Eliquis for DVT prophylaxis for 2 weeks followed by aspirin 81 mg twice a day for 2 weeks. He will continue on the medical service. Multiple medical comorbidities such as diabetes, history of lung cancer, etc. noted and being managed by the hospitalist. Case discussed with Dr. Merino from anesthesia.
--- NOTE | 2025-07-04 10:00 | RAD_ITS ---
PROCEDURE: HIP MIN 2 VIEWS (PORTABLE) 07/04/2025 REASON FOR EXAM: RT HIP FRACTURE REPAIR TECHNIQUE: HIP MIN 2 VIEWS (PORTABLE) Laterality: COMPARISON: Lower extremity x-ray July 03, 2025. FINDINGS: Bones: Status post surgical correction of right femoral fracture with metallic rods. Joints: No dislocations. Soft tissues: No soft tissue abnormalities. RAD/Hip Min 2 Views (Portable) IMPRESSION: Postsurgical changes for repair of right femoral fracture with no acute complic ations. Reading Location: [id number]
[2025-07-04] MEDS: fentaNYL 100 MCG/2 ML Ampul 25 MCG IV (10:20)
[2025-07-04] MEDS: Cefazolin 1 GM/5 ML Vial 2 GM IV (10:38)
[2025-07-04] MEDS: PROPOFOL IV (10:41)
--- NOTE | 2025-07-04 11:29 | PCM.OPRPT ---
Problems Associated Problem List Diagnoses (1) Closed intertrochanteric fracture of right hip: Operative Report (Standard) Operative Information Date of Procedure: 07/04/25 Pre-Operative Diagnosis: Right hip intertrochanteric fracture Post-Operative Diagnosis: Same Surgery/Procedure Performed: Open reduction internal fixation right hip, long gamma nail servicer: Yes Oil Well Fishing Tool Operator: Silvia Butler Tasks completed by first coat sander: Closing and Implanting device Additional advertising sales assistant?: No Type of Anesthesia: Spinal RN Documented Start/Stop Times: Operation Date: 07/04/25 12:00 Case Time Into Pre-Op 07/04/25 09:46 Out of Pre-Op 07/04/25 10:21 Anesthesia Start 07/04/25 10:22 Into Room 07/04/25 10:22 Procedure Start 07/04/25 10:46 Procedure Start Time: 10:46 Procedure Stop Time: 11:40 Select all DRAINS/GRAFTS/IMPLANTS that apply: None Special Medications: Ancef 2 g, Tranexamic acid 1 g IV Estimated Blood Loss: 50 Fluids Replaced: 500 Specimen collected: Yes Description of specimen(s) removed: Bone reamings from right femur Description of surgery: Preoperative diagnosis: Right hip displaced intertrochanteric fracture Postoperative diagnosis: Same Title of operation: Right hip open reduction internal fixation, intramedullary nail fixation, locked Surgeon: Dr. Nuno Campbell Reservoir Engineering Manager: Silvia Butler PA-C Anesthesia: spinal Medications: Ancef Indications for surgery: Patient is an 75-year-old male sustained a hip fracture yesterday at home. Patient and their family explained diagnosis and treatment options. Patient evaluated by the medical services. Patient did wish to have surgery. Appropriate informed consent obtained and signed. Findings: Patient had a displaced intertrochanteric hip fracture. They underwent standard reduction, internal fixation using a Rosalva long gamma 3 nail. Nail size was 11 mm x 420. 125 degree neck angle. Proximal cross lock screw was 110. Distal cross lock screw was 42.5. X-rays taken throughout. health care legal assistant, physician advertising sales assistant, was utilized throughout the entire procedure. They were vital to the procedure from beginning to end. They help with patient transfer, patient padding and positioning, fracture reduction, maintenance of fracture reduction, internal fixation of implants, wound closure, bandage application, patient transfer. Without surgical aides teacher, surgical time would have been significantly increased and surgical outcome could have been less optimal. Procedure: Patient was taken to the operating room. Placed under a general anesthetic and transferred to the operating table with the help of the advertising sales assistant. With the help of the advertising sales assistant patient was prepped and padded for surgery. Left foot was well-padded and placed in the traction boot. Right lower extremity was abducted and flexed out of harm's way. JACQUELINE hose and SCDs utilized. Fluoroscopy was brought in. With the help of the advertising sales assistant and manipulation of the limb, reduction was nicely obtained as verified under AP lateral and oblique fluoroscopic images. Reduction was improved with anterior to posterior pressure on the fracture site. Left hip was prepped padded draped in usual orthopedic sterile fashion for the procedure. Longitudinal incision was made just proximal to the greater trochanter. Taken through skin and subcutaneous tissue. Sharp awl was placed on the tip of the greater trochanter. Position verified under AP and lateral fluoroscopic images. This was then taken down inside the bone. Slightly bent ball-tipped guide alissa was then placed from the tip of the greater trochanter into the intra-medullary canal of the femur. Its position verified radiographically. Guide alissa was verified to be just above the patella on the AP and lateral x-rays of the knee. We measured the length of the guide alissa within the bone. Short reamer was then done over the tip of this with the help of the advertising sales assistant holding the soft tissue protector appropriately. Long reaming was done starting and reaming up to 12.5 mm distally. Was then with the help of the advertising sales assistant . once reaming was done we placed the short 125? angle device over the guidepin. This was easily introduced. Guide alissa removed. Outrigger device was utilized to position a guidepin from the lateral cortex of the femur across the fracture site and into the femoral head in a good position centrally, as noted on AP lateral and oblique fluoroscopic images. This was measured. Appropriate reaming done. Appropriate length lag screw was placed from the lateral cortex of the femur into the femoral head. A small amount of the screw was noted to be protruding laterally as planned. No cartilage penetration of the femoral head noted on any x-ray. Fracture was then compressed with the outrigger device. Screw was placed seated down completely, confirmed, and then loosened one fourth turn. Fluoroscopy was utilized distally to verify the position of the alissa on AP and lateral images. Lateral image was used to verify the holes within the alissa. We placed a bit with the help of fluoroscopy through the slotted hole distally to allow for compression. We then measured and placed the appropriate length to cross locking screw through the slotted hole this was confirmed to be of adequate length in good position on AP and lateral images. Outrigger device removed. Final set of AP and lateral proximal and distal x-rays taken and saved. Incisions were thoroughly irrigated. Closing by the advertising sales assistant with deep 0 Vicryl, mid layer 0 Vicryl, inverted 2-0 Vicryl, skin nayla. Puncture wounds closed with inverted 2-0 Vicryl and nayla. Xeroform 4 x 4's ABD tape applied. Patient was awoken from their anesthetic, transferred back to their own bed with the help of the advertising sales assistant and into recovery room in satisfactory condition. Patient will continue to be admitted to the hospital under the hospitalist service. We will plan Eliquis 2.5 mg twice a day for 2 weeks. Followed by aspirin 81 mg twice a day for a month. Will use Ancef for perioperative antibiotic. He should follow-up in the orthopedic office in 2 weeks. Weightbearing as tolerated. Surgical Findings: Hip fracture Complications Complications: No Admit VTE Documentation VTE Present on Admission: No VTE Mechan Device Prophylaxis: SCD's VTE Pharm Prophylaxis ordered?: Yes
--- NOTE | 2025-07-04 11:46 | PCM.POST.ANE ---
Anesthesia: Postop Eval I Current Vital Signs Temperature: 96.8 F Pulse Rate: 78 Blood Pressure: 105/78 Respiratory Rate: 18 Pulse Ox: 97 Oxygen Delivery Method: Room Air Assessment Airway patent: Yes Spontaneous unlabored respirations: Yes Mental status: Awake nausea: No Vomiting: No Anesthesia Complication: No Fluid Hydration Crystalloid volume administer (ml): 500 Total IV fluid infused: 500 Progress Note Anesthesia document: Postop Eval 1 completed: Yes
--- NOTE | 2025-07-04 12:00 | FEM_PTH ---
PATIENT: ITZEL ALONZO LOC: [facility] U#:[id number] AGE/SX: 75/M ROOM: [facility] RE07/03/[address]: Dr. Anthony Salgado MD : [id number] BED: 1 DIS: 07/07/2025 SPEC #: [id number] RECD: 07/05/25 09:43 STATUS: CASIE REQ #: [id number] LEEANN: 07/04/25 12:[address]: Nuno Campbell DEPT: SURGICAL PATHOLOGY RECD BY: Jan Rosa ENTERED: 07/05/25 11:52 SP TYPE: FEM HEAD OTHR DR: MD Dr. Uche Rosa MD Dr. Prakash Chand, MD Ashley N Wilford, IKE-C Tissues: A - Femoral region, NOS Procedures: Decalcification bone/plaque Surgery Specimen Level V HEADER OPERATION: ORIF, hip, Gamma Nail PRE-OP DIAGNOSIS: Closed intertrochanteric fracture of right hip TISSUE SUBMITTED: A- Right femur bone - rule out cancer MICROSCOPIC DIAGNOSIS A. Bone, right femur, ORIF of intertrochanteric fracture of the right hip: * Piece of benign bone, soft tissue, and bone marrow with piece of marrow with fat necrosis and areas with normocellular hematopoietic tissue MICROSCOPIC DESCRIPTION Slides are reviewed. GROSS DESCRIPTION A. Received in formalin labeled with the patient's name and date of . Designated as right femur bone-rule out CA is a 3.9 x 2.6 x 0.6 cm aggregate of red-brown, spongy to firm, irregular portions of bone. Entirely submitted in 3 cassettes, following decalcification. [place] 07/05/2025 CPT:67435,75072
[2025-07-04] MEDS: Lactated Ringers 1,000 ML 15 ML IV (13:00)
[2025-07-04] MEDS: Senna/Docusate Sodium 1 Tablet 2 TABLET PO ×2 (14:40→22:05)
[2025-07-04] MEDS: Glycerin/Hypromellose/PEG400 15 ml Bottle 1 DRP EACH EYE ×3 (14:42→22:04)
--- NOTE | 2025-07-04 15:10 | NURSING ---
1500 Dr Felix texted about BP.-170/80 pulse 100, pain med given Rashmi Messina RN
[2025-07-04] MEDS: 0.9% Normal Saline (250mL Bag) 250 ML 15 ML IV (17:45)
[2025-07-04] MEDS: prednisoLONE eye drops (5 mL) 1 DROP OPTH.BTL 1 DRP LEFT EYE (17:46)
[2025-07-04] MEDS: Cefazolin 1 GM/50 ML BAG IV (17:57)
[2025-07-05] VITALS (9 sets, daily range): BP systolic 134–153; BP diastolic 81–85; PULSE 101–115; RESP 15–18; TEMP 36.4–36.9; O2SAT 84–100; BMI 17.5
[2025-07-05] MEDS: prednisoLONE eye drops (5 mL) 1 DROP OPTH.BTL 1 DRP LEFT EYE ×5 (01:16→17:10)
[2025-07-05] MEDS: Cefazolin 1 GM/50 ML BAG IV (01:30)
--- NOTE | 2025-07-05 06:11 | POSTOPAN2_ITS ---
Anesthesia Postop Eval I Sum Postop Eval Completion status Anesthesia document: Postop Eval 1 completed: Yes Anesthesia Postop Eval I Summary Anesthesia Postop Eval I Summary: Anesthesia Postop Eval I: Assessment Summary Airway patent Yes 07/04/25 11:46 [email or web address] Spontaneous unlabored Yes 07/04/25 11:46 [email or web address] respirations Mental status Awake 07/04/25 11:46 [email or web address] nausea No 07/04/25 11:46 [email or web address] Vomiting No 07/04/25 11:46 [email or web address] Anesthesia Postop Eval I: Fluid Summary Crystalloid volume administer 500 07/04/25 11:46 [email or web address] (ml) Colloids volume administered ( ml) Blood Product volume administered (ml) Total IV fluid infused 500 07/04/25 11:46 [email or web address] Anesthesia Postop Eval I: Summary Notes Anesthesia Complication No 07/04/25 11:46 [email or web address] Anesthesia Complication Comment: Post-operative progress note Anesthesia: Postop Eval II Evaluation Mental status: Awake Pain Level: 0 nausea: No Vomiting: No
--- NOTE | 2025-07-05 06:11 | PCM.POSTANE2 ---
Anesthesia Postop Eval I Sum Postop Eval Completion status Anesthesia document: Postop Eval 1 completed: Yes Anesthesia Postop Eval I Summary Anesthesia Postop Eval I Summary: Anesthesia Postop Eval I: Assessment Summary Airway patent Yes 07/04/25 11:46 [email or web address] [email or web address] Spontaneous unlabored Yes 07/04/25 11:46 RAILROAD [email or web address] respirations Mental status Awake 07/04/25 11:46 [email or web address] [email or web address] nausea No 07/04/25 11:46 RAILROAD [email or web address] Vomiting No 07/04/25 11:46 [email or web address] [email or web address] Anesthesia Postop Eval I: Fluid Summary Crystalloid volume administer 500 07/04/25 11:46 [email or web address] [email or web address] (ml) Colloids volume administered ( ml) Blood Product volume administered (ml) Total IV fluid infused 500 07/04/25 11:46 [email or web address] [email or web address] Anesthesia Postop Eval I: Summary Notes Anesthesia Complication No 07/04/25 11:46 [email or web address] [email or web address] Anesthesia Complication Comment: Post-operative progress note Anesthesia: Postop Eval II Evaluation Mental status: Awake Pain Level: 0 nausea: No Vomiting: No
[2025-07-05 06:50] LABS: Hematocrit 25.1 % (40-54); Hemoglobin 7.5 g/dL (13.0-16.5); Immature Granulocytes Count 0.080 X10^3/uL (0.0-0.0); Mean Corp Hgb Conc 29.9 g/dL (32-36); Mean Corpuscular Volume 71.3 fL (80-94); Mean Platelet Vol. 9.5 fl (6.2-12.0); NRBC Flagged by Analyzer 0 % (0-5); POSITIVE MORPHOLOGY YES; Platelet Count 261 K/mm3 (150-450); RBC Distribution Width CV 22.9 % (11.6-14.6); RBC Distribution Width SD 58.4 fl (35.1-43.9); Red Blood Count 3.52 M/mm3 (4.6-6.2); White Blood Count 11.6 K/mm3 (4.4-11.0)
[2025-07-05 06:53] LABS: Differential Indicated SCAN CRITERIA MET
[2025-07-05] MEDS: Budesonide Respules 0.5 MG/2 ML AMPUL.NEB. INHALATION ×2 (07:04→20:00)
[2025-07-05 07:15] LABS: Anion Gap 12 (5-15); BUN 19 mg/dL (4-19); BUN/Creat Ratio 16.8 RATIO (10-20); Calcium,Total 9.1 mg/dL (7.6-11.0); Carbon Dioxide 21.6 mmol/L (21.0-32.0); Chloride 102 mmol/L (98-108); Estimated Creatinine Clearance 46.13 ml/min (50-250); Glucose 178 mg/dL (70-99); Magnesium 2.0 mg/dL (1.5-2.2); Potassium 3.8 mmol/L (3.3-5.1)
[2025-07-05 07:18] LABS: Anisocytosis 1+
[2025-07-05] MEDS: Ensure Surgery 237 ML LIQUID PO (08:43)
[2025-07-05] MEDS: Calcium (Elemental) 500 MG Tablet 1500 MG PO (08:43)
[2025-07-05] MEDS: Glycerin/Hypromellose/PEG400 15 ml Bottle 1 DRP EACH EYE ×4 (08:43→21:29)
[2025-07-05] MEDS: Polyethylene Glycol 3350 17 GM PACKET PO (08:44)
[2025-07-05] MEDS: APIXABAN 2.5 MG TABLET (WCH) PO ×2 (08:44→21:29)
[2025-07-05] MEDS: Senna/Docusate Sodium 1 Tablet 2 TABLET PO ×2 (08:46→21:29)
--- NOTE | 2025-07-05 09:38 | PCM.PN.ORT ---
Subjective Subjective Patient is 75-year-old male postop day 1 s/p right hip open reduction internal fixation intramedullary nail with Dr. Campbell 07/04/2025.. Patient resting comfortably in bed. Rates pain 5/ 10 at rest. States taking tylenol and oxycodon as needed and ice help to relieve pain. Patient has been up with therapy. Walking with the assit of a walker . Afebrile, no chest pain, shortness of breath, negative calf pain/ erythema, and no other signs of DVT. Objective Data Objective Data Vital Signs: Vital Signs Temp Pulse Resp BP Pulse Ox O2 Del Method O2 Flow Rate 97.6 F L 111 H 16 134/85 H 99 Nasal Cannula 2 07/05/25 08:08 07/05/25 08:08 07/05/25 08:08 07/05/25 08:08 07/05/25 08:08 07/05/25 08:08 07/05/25 08:08 Oxygen Flow Rate (L/min) 2 Oxygen Delivery Method Nasal Cannula Weight: 60.1 kg Body Mass Index (BMI) 17.5 Intake & Output: Intake and Output for Last 24 Hours 07/03/25 07/04/25 07/05/25 23:59 23:59 23:59 Intake Total 2158.75 / 2158.75 276.25 / 276.25 Output Total 2150 / 2400 450 / 450 Balance 8.75 / -241.25 -173.75 / -173.75 Lab / Micro Data 07/05/25 05:53 07/05/25 05:53 Labs: Laboratory Results - last 24 hr 07/04/25 07:50: Blood Type O POSITIVE, Antibody Screen NEGATIVE 07/04/25 14:47: POC Glucose 174 H 07/04/25 17:36: POC Glucose 215 H 07/04/25 22:01: POC Glucose 208 H 07/05/25 05:53: WBC 11.6 H, RBC 3.52 L, Hgb 7.5 L, Hct 25.1 L, MCV 71.3 L, MCH 21.3 L, MCHC 29.9 L, RDW Std Deviation 58.4 H, RDW Coeff of Tiffany 22.9 H, Plt Count 261, MPV 9.5, Immature Gran % (Auto) 0.700, Neut % (Auto) 79.1 H, Lymph % (Auto) 13.4 L, Upton % (Auto) 5.5, Eos % (Auto) 1.1, Baso % (Auto) 0.2, Absolute Neuts (auto) 9.2 H, Absolute Lymphs (auto) 1.55, Nucleated RBC % 0, Anisocytosis 1+, Sodium 135, Potassium 3.8, Chloride 102, Carbon Dioxide 21.6, Anion Gap 12, BUN 19, Creatinine 1.14, Estim Creat Clear Calc 46.13 L, Est GFR (MDRD) Non-Af 66, BUN/Creatinine Ratio 16.8, Glucose 178 H, Calcium 9.1, Phosphorus 3.0, Magnesium 2.0 07/05/25 06:36: POC Glucose 182 H Radiography Diagnostic Testing: Radiology Impression Hip X-Ray 07/04/25 10:00 IMPRESSION: Postsurgical changes for repair of right femoral fracture with no acute complications. Reading Location: [facility] Physical Exam Narrative Patient resting comfortably in bed No signs of acute distress Satting well on room air Limb is warm to touch, Sensation intact throughout entire lower extremity, including saphenous, sural, superficial and deep peroneal, and tibial distribution. DP/PT pulses bounding. Dorsiflexion plantarflexion strength 5/5 Dressing clean dry intact Calf nontender to palpation, no erythema, no edema. Negative Homans Assessment & Plan Assessment/Plan (1) Closed intertrochanteric fracture of right hip: QUALIFIERS: Encounter type: initial encounter Fracture alignment: displaced Qualified Code(s): S72.141A - Displaced intertrochanteric fracture of right femur, initial encounter for closed fracture PLAN: 1. Will continue PT today. Weightbearing as tolerated 2. plan for discharge per primary. Okay from an orthopedic standpoint when able. 3. Patient will follow up for post op appointment in 2 weeks this will need to be arranged. 4. WBC 11.6 acute reactive leukocytosis: secondary to pre operative decadron. no acute systemic signs of infection. will monitor, and likely self resolve. 5. H/H 7.5/25.1: post operavtive anemia secondary to acute blood loss intraoperatively. Patient is asymptomatic at this time. No intraoperative complications. will continue to monitor. no acute interventions. 6. DVT prophylaxis : Eliquis 2.5 mg twice daily for 2 weeks followed by aspirin 81 mg twice a day for 1 month. 7. Pain control: patient instructed to take tylenol 500mg 2 tablets TID. and oxycodone 1-2 tablets every 4-6 hours only as needed for pain control. 8. ok to remove post op dressing. post op day 5
[2025-07-05] MEDS: Sodium Ferric Gluconat/Sucrose 250 MG in 0.9% Normal Saline (250mL Bag) 250 ML 135 MG IV (11:45)
[2025-07-05] MEDS: 0.9% Saline Lock 10 ML Syringe IV (11:47)
--- NOTE | 2025-07-05 12:15 | CASEMGMT ---
Addendum entered by Enedelia Cash 07/05/25 12:50: Received tc from Jannet at the [facility], she is aware that pt had OR yesterday and therapy is recommending a SNF. She states pt is 100% service connected. Original Note: Received tc from Darshana Domínguez from [facility]. She states that they provide aide services through the [facility] for pt. She is aware at this time, pt may need skilled care prior to returning home. She left her phone number of [phone] to update on dc plan. TC to [facility], left message for Babar COHEN to see if pt is service connected. HEATHER CM to follow.
--- NOTE | 2025-07-05 12:28 | CASEMGMT ---
HEATHER HUDSON Assessment Face to Face with patient for initial transition planning/care coordination assessment. HEATHER HUDSON introduced self and role at [facility], pt voices understanding. Pt is A&Ox4 and is resting comfortably in bed and is calm. Care providers, pharmacy, and demographics verified. Admitting dx: Fall, Rt Hip Fracture LACE Strata: 3 PCP: Carlene Haji Specialists: Denies Preferred Pharmacy: [facility] Insurance: [place] states [place] Pres[place]: [place]. CM to follow for Rx costs LNOK: Pedro Chandra (Brother), Janessa Dukes ([place]), Daughter Living Arrangements: [facility], [place] ADLs/IADLs: Pt requires assistance. 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 See previous RN BECCA note. Transportation: Pt states that he was recently banned from [facility] Transportation services. Pt states that he has been using [facility] [employer] [facility] for transport. CM to follow for needs DME: Denies home oxygen use or PAP therapy. BGM with sufficient supplies. Pen needs. Rollator. Inquired if the pt would be interested in [facility]'s Medical alert system. Pt declines and states that he wants to get this through the [place] HHC/SNF: Reports HHC, Years ago. Denies SNF hx Smoking hx: Pt reports that he recently quit smoking. Pt states that he would be interested in follow up regarding cessation resources. SW notified. Pt?s goal: Return to P[facility]F Plan: Anticipate SNF @ the time of DC. PT is recommending SNF for the pt, see notes. Pt states that his daughter is coming to the Hospital tomorrow and that the pt would like CM to discuss DC planning with the daughter. Pt notified that PT is recommending short term SNF placement for the pt. Pt states that his brother recently got DC'd from [facility] and that he does not want to go there. This HEATHER HUSDON educated the pt that CM would provide the pt with a list of local in-network SNF's for the pt to review and that they are categorized by star rating. Pt states understanding and that he would at least be receptive to reviewing a list. Report given to MS3 HEATHER HUDSON and SW. Lynn Campbell RN, CM
--- NOTE | 2025-07-05 13:10 | CASEMGMT ---
Addendum entered by Enedelia Cash 07/05/25 15:38: HEATHER HUDSON into pt room, pt states he wants to wait until his dtr comes to the hospital to determine where he wants to go for SNF. TC to pt dtr, Kimberley, spoke with her and she states she is leaving [place] in the morning and will be at the hospital. She is agreeable to having the list of SNFs texted to her. Texted at this time via [employer]. Addendum entered by Enedelia Cash 07/05/25 13:14: TC to pt dtr Kimberley, received message that pt has a vm box that is not set up yet. Original Note: HEATHER HUDSON into pt room, pt sitting up in bed with sig other at bedside. Discussed dc planning. Pt is agreeable to SNF. Patient was provided a list of SNF providers including quality and resource use data and consistent with the patient?s preferred geographic region, medical needs, and insurance network were provided from the [employer] Guide. Pt would like to review list as well as speak with his dtr. He gave permission for HEATHER HUDSON to discuss with dtr Kimberley at [phone]. Pt aware that the [facility] called, he reports he does not want to trf to [facility].
--- NOTE | 2025-07-05 13:25 | CASEMGMT ---
Social Work- SW met with pt and SO to complete SDOH assessment. Pt reports that he uses [place] to appointments, but they arrive an hour early or refuse to transport. Pt could not elaborate as to why they refuse to transport. Pt reports that he would like information on home delivered meals. Pt would also like a hospital bed and electric scooter. SW educated that SW at SNF will be able to assist with items needed for home discharge. SW to provide home delivered meals and transportation information. Pt reports that he has 10 hours a week with [facility] through [facility]. Pt reports no other medical coverage than [place]. RNCM working with pt on SNF placement. JERE Bruce
[2025-07-05] MEDS: Ensure Plus High Protein 120 ML LIQUID PO ×2 (13:44→17:15)
--- NOTE | 2025-07-05 16:34 | PN.HOSP_ITS ---
Reason for Visit Chief Complaint: Fall, R hip pain. Objective Data Objective Data Vital Signs: Vital Signs Temp Pulse Resp BP Pulse Ox O2 Del Method O2 Flow Rate 98.2 F 106 H 16 139/85 H 95 Room Air 2 07/05/25 15:24 07/05/25 15:24 07/05/25 15:24 07/05/25 15:24 07/05/25 15:24 07/05/25 15:24 07/05/25 13:52 Oxygen Flow Rate (L/min) 2 Oxygen Delivery Method Room Air Weight: 132 lb 7.965 oz Body Mass Index (BMI) 17.5 Intake & Output: Intake and Output for Last 24 Hours 07/03/25 07/04/25 07/05/25 23:59 23:59 23:59 Intake Total 2158.75 / 2158.75 846.25 / 846.25 Output Total 2150 / 2400 450 / 450 Balance 8.75 / -241.25 396.25 / 396.25 Medical Nutrition Assessment Dietitian: Malnutrition Criteria Met Start: 07/05/25 10:37 Freq: Status: Active Protocol: Document 07/05/25 10:37 SB (Rec: 07/05/25 10:37 SB [id number]) Nutrition Malnutrition Evidence of Yes Malnutrition Exists Malnutrition (severe Chronic ): Evidenced By Suboptimal Energy Intake (Severe),Weight Loss (Severe), Physical Changes (Severe) Clinical Problem Chronic Disease or Condition Related Malnutrition Etiology severe related to inadequate energy intake and increased energy expenditure due to lung cancer Signs/Symptoms as evidenced by PO meeting <75% of estimated nutrition needs x 2-3 days, 23% unintentional weight loss x 7 months, and severe muscle/fat wasting in clavicle, temples, and orbital regions. Status Active Problem Unintended Weight Loss Etiology likely related to right sided lung cancer Signs/Symptoms as evidenced by 23% weight loss x 7 months Status Active Problem Recommendation Dietitian Adjust to liberal regular diet due to signs and Recommendations/ symptoms of malnutrition. Changes Discontinue 237ml ensure surgery TID with medpass and replace with 120ml EPHP 4x daily with medpass, pt prefers chocolate flavor. If pt continues to lose weight and has poor PO recommend nutrition support. Will monitor weight trends and provided additional ONS at needed. Lab / Micro Data 07/05/25 05:53 07/05/25 05:53 Labs: Laboratory Results - last 24 hr 07/04/25 17:36: POC Glucose 215 H 07/04/25 22:01: POC Glucose 208 H 07/05/25 05:53: WBC 11.6 H, RBC 3.52 L, Hgb 7.5 L, Hct 25.1 L, MCV 71.3 L, MCH 21.3 L, MCHC 29.9 L, RDW Std Deviation 58.4 H, RDW Coeff of Tiffany 22.9 H, Plt Count 261, MPV 9.5, Immature Gran % (Auto) 0.700, Neut % (Auto) 79.1 H, Lymph % (Auto) 13.4 L, Woodson % (Auto) 5.5, Eos % (Auto) 1.1, Baso % (Auto) 0.2, Absolute Neuts (auto) 9.2 H, Absolute Lymphs (auto) 1.55, Nucleated RBC % 0, Anisocytosis 1+, Sodium 135, Potassium 3.8, Chloride 102, Carbon Dioxide 21.6, Anion Gap 12, BUN 19, Creatinine 1.14, Estim Creat Clear Calc 46.13 L, Est GFR (MDRD) Non-Af 66, BUN/Creatinine Ratio 16.8, Glucose 178 H, Calcium 9.1, Phosphorus 3.0, Magnesium 2.0 07/05/25 06:36: POC Glucose 182 H 07/05/25 10:59: POC Glucose 290 H 07/05/25 15:58: POC Glucose 232 H Physical Exam Narrative Seen and examined. Patient had right hip surgery done for right hip displaced intertrochanteric fracture Complain of pain 8/10 around the operative region Physical exam General: Alert, Oriented x3, Cooperative HEENT: Atraumatic, PERRLA, EOMI, Normocephalic. Oral: No Gingival or Mucosal Lesions/ Ulcerations Neck: Supple, No JVD, Negative Carotid Bruits Chest wall/Lungs: Air entry diminished in bilateral lung bases. No crepitation/rhonchi Cardiovascular: Regular rate and rhythm, Normal S1,S2, No M/G/R Abdomen: Bowel Sounds Present, Soft, Non Tender, Non-Distended : No dysuria. No renal angle tenderness. No suprapubic tenderness. Extremities: No edema, Capillary Refill Less than 3 Seconds Skin: Right hip surgical dressing is dry. Musculoskeletal: Tenderness around right hip area. No hematoma Neurological: Cranial nerves II-XII grossly intact, DTR 2+/4. No acute focal neurological deficit. Psych/Mental Status: Normal Affect, Appropriate. Assessment & Plan Assessment/Plan (1) Closed intertrochanteric fracture of right hip: QUALIFIERS: Encounter type: initial encounter Fracture alignment: displaced Qualified Code(s): S72.141A - Displaced intertrochanteric fracture of right femur, initial encounter for closed fracture (2) Fall: PLAN: Plan Patient is a 75-year-old gentleman who experienced for with resultant right hip pain.Imaging studies obtained on admission did show Fracture of the right greater trochanter, extending into the intertrochanteric line. Admitted to regular nursing floor with consultation placed orthopedic surgeon 1. Fall with right hip fracture .Imaging studies obtained on admission did show Fracture of the right greater trochanter, extending into the intertrochanteric line. Admitted to regular nursing floor treatment initiated with with immobilization, pain management consultation placed to orthopedic surgery. Decision regarding surgical intervention deferred to orthopedic surgery. - Patient perioperative Risk assessment as documented by admitting physician 07/05: Right hip ORIF with intramedullary nail fixation, locked on 07/04/[address] Nuno Campbell. Mild tenderness present. Patient on pain medication. 2. Physical deconditioning/debility secondary to above ? Requested for PT OT eval and elementary school social worker to assist with discharge planning 3. Right sided lung cancer (suprahilar, unclear exact specific type) with associated hypercalcemia of malignancy with [facility]. Patient to resume care following discharge 4. Hematuria ? Apparently traumatic following Epperson catheter insertion plan is to initiate CBI if hematuria does not resolve 5. Anemia ? Secondary to chronic disorder/anemia of malignancy. Patient was typed and crossmatched for 2 unit PRBC, subsequently monitoring H&H and transfuse if patient becomes symptomatic or hemoglobin falls below 7 6. Diabetes mellitus type II -patient's oral hypoglycemics held. Placed on long acting insulin, Accu-Cheks a.c. and at bedtime and covered with sliding scale insulin 07/05: Glucoses elevated 180-290. Started on Lantus 10 and subcutaneous daily. 7. Tobacco dependence ? Counseled on cessation, offered nicotine patch for tobacco cravings 8. GERD ? On PPI 9. COPD ? Not in exacerbation aerosol treatments as needed 10. Dyslipidemia ? Patient is on atorvastatin did continue home dose 11. 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 Restless leg syndrome ? Patient is on ropinirole we will continue 13. Severe protein calorie malnutrition ? Evidenced by reduced BMI muscle wasting and decreased oral intake. Consult placed to dietitian Laboratory Results 07/04/25 17:36: POC Glucose 215 H 07/04/25 22:01: POC Glucose 208 H 07/05/25 05:53: WBC 11.6 H, RBC 3.52 L, Hgb 7.5 L, Hct 25.1 L, MCV 71.3 L, MCH 21.3 L, MCHC 29.9 L, RDW Std Deviation 58.4 H, RDW Coeff of Tiffany 22.9 H, Plt Count 261, MPV 9.5, Immature Gran % (Auto) 0.700, Neut % (Auto) 79.1 H, Lymph % (Auto) 13.4 L, Woodson % (Auto) 5.5, Eos % (Auto) 1.1, Baso % (Auto) 0.2, Absolute Neuts (auto) 9.2 H, Absolute Lymphs (auto) 1.55, Nucleated RBC % 0, Anisocytosis 1+, Sodium 135, Potassium 3.8, Chloride 102, Carbon Dioxide 21.6, Anion Gap 12, BUN 19, Creatinine 1.14, Estim Creat Clear Calc 46.13 L, Est GFR (MDRD) Non-Af 66, BUN/Creatinine Ratio 16.8, Glucose 178 H, Calcium 9.1, Phosphorus 3.0, Magnesium 2.0 07/05/25 06:36: POC Glucose 182 H 07/05/25 10:59: POC Glucose 290 H 07/05/25 15:58: POC Glucose 232 H Charges/Coding Visit Charges Inpatient E&M: 93855 Subs Hosp L2
[2025-07-05] MEDS: Insulin Glargine-YFGN 100 UNIT/ML Pen 10 UNIT SC (18:00)
[2025-07-06] VITALS (10 sets, daily range): BP systolic 126–146; BP diastolic 79–94; PULSE 94–107; RESP 15–20; TEMP 36.6–37.2; O2SAT 91–100; BMI 17.3
[2025-07-06 05:58] LABS: Hematocrit 21.9 % (40-54); Hemoglobin 6.6 g/dL (13.0-16.5); Immature Granulocytes Count 0.050 X10^3/uL (0.0-0.0); Mean Corp Hgb Conc 30.1 g/dL (32-36); Mean Corpuscular Volume 70.9 fL (80-94); Mean Platelet Vol. 9.9 fl (6.2-12.0); NRBC Flagged by Analyzer 0 % (0-5); POSITIVE MORPHOLOGY YES; Platelet Count 239 K/mm3 (150-450); RBC Distribution Width CV 22.4 % (11.6-14.6); RBC Distribution Width SD 56.7 fl (35.1-43.9); Red Blood Count 3.09 M/mm3 (4.6-6.2); White Blood Count 9.2 K/mm3 (4.4-11.0)
[2025-07-06] MEDS: prednisoLONE eye drops (5 mL) 1 DROP OPTH.BTL 1 DRP LEFT EYE ×3 (06:14→17:51)
[2025-07-06 06:16] LABS: Differential Indicated SCAN CRITERIA MET
[2025-07-06 06:23] LABS: Anion Gap 11 (5-15); BUN 22 mg/dL (4-19); BUN/Creat Ratio 21.0 RATIO (10-20); Calcium,Total 8.6 mg/dL (7.6-11.0); Carbon Dioxide 20.0 mmol/L (21.0-32.0); Chloride 103 mmol/L (98-108); Estimated Creatinine Clearance 50.29 ml/min (50-250); Glucose 141 mg/dL (70-99); Potassium 3.7 mmol/L (3.3-5.1)
[2025-07-06 07:24] LABS: Anisocytosis 1+; Basophilic Stippling RARE; Polychromasia 1+
[2025-07-06] MEDS: Budesonide Respules 0.5 MG/2 ML AMPUL.NEB. INHALATION (07:26)
[2025-07-06] MEDS: Calcium (Elemental) 500 MG Tablet 1500 MG PO (08:26)
[2025-07-06] MEDS: Glycerin/Hypromellose/PEG400 15 ml Bottle 1 DRP EACH EYE ×4 (08:27→22:15)
[2025-07-06] MEDS: Polyethylene Glycol 3350 17 GM PACKET PO (08:28)
[2025-07-06] MEDS: Ensure Plus High Protein 120 ML LIQUID PO ×3 (08:29→17:51)
[2025-07-06] MEDS: Senna/Docusate Sodium 1 Tablet 2 TABLET PO ×2 (08:29→22:15)
[2025-07-06] MEDS: APIXABAN 2.5 MG TABLET (WCH) PO (08:30)
[2025-07-06] MEDS: Insulin Glargine-YFGN 100 UNIT/ML Pen 10 UNIT SC (08:30)
[2025-07-06] MEDS: 0.9% Saline Lock 10 ML Syringe IV (09:58)
--- NOTE | 2025-07-06 10:00 | CASEMGMT ---
Addendum entered by Enedelia Cash 07/06/25 15:51: Received vm from Valarie who is the SW who will now be working on pt case. TC to her, left . Her phone number is [phone]. Addendum entered by Enedelia Cash 07/06/25 15:37: HEATHER HUDSON into pt room, pt dtr present from [place]. She is aware of which facility pt chose and questions pt choice. She would like to speak to ortho and has questions to see when pt can fly to [place] where he has more family to take care of him. She states they plan to proceed with rehab and once he is healed, pt will go to [place]. She and pt is aware that [facility] has accepted pt and that we are awaiting approval from the [place]. Addendum entered by Enedelia Cash 07/06/25 13:03: Pt was accepted at [facility]. Completed [facility] sheet that was emailed by VICKI and included PT, OT evals, H&P, OR report and progress notes and sent via email to . Also emailed SW to make aware this was completed. Addendum entered by Enedelia Cash 07/06/25 12:07: HEATHER HUDSON called into room. Pt states he has chosen [facility] as the facility of choice. Requested dc occupational therapy assistant send referral at this time. Addendum entered by Enedelia Cash 07/06/25 11:39: HEATHER HUDSON into pt room, pt sitting up in chair with visitors in room. Pt states he wants to wait for his girlfriend to determine facility. Pt aware that a referral needs to be made today. Pt visitor calling pt sig other at this time. Original Note: TC from Daksha COHEN at [facility] [phone] who is the SW on pt case. She states that she will email the form for the [facility] approval for SNF. She states once pt is accepted at a facility, the form and clinicals will need to be sent to her for approval. Provided email address to get the form sent.
--- NOTE | 2025-07-06 10:07 | PCM.PN.HOSP ---
Reason for Visit Chief Complaint: Fall, R hip pain. Objective Data Objective Data Vital Signs: Vital Signs Temp Pulse Resp BP Pulse Ox O2 Del Method O2 Flow Rate 98.1 F 107 H 16 133/80 H 100 Nasal Cannula 2 07/06/25 09:00 07/06/25 09:00 07/06/25 09:00 07/06/25 09:00 07/06/25 09:00 07/06/25 09:00 07/06/25 09:00 FiO2 2 07/05/25 21:24 Oxygen Flow Rate (L/min) 2 Oxygen Delivery Method Nasal Cannula Weight: 130 lb 8.218 oz Body Mass Index (BMI) 17.3 Intake & Output: Intake and Output for Last 24 Hours 07/04/25 07/05/25 07/06/25 23:59 23:59 23:59 Intake Total 2158.75 / 2158.75 1146.25 / 1346.25 200 / 200 Output Total 2150 / 2400 450 / 450 Balance 8.75 / -241.25 696.25 / 896.25 200 / 200 Medical Nutrition Assessment Dietitian: Malnutrition Criteria Met Start: 07/05/25 10:37 Freq: Status: Active Protocol: Document 07/05/25 10:37 SB (Rec: 07/05/25 10:37 SB [id number]) Nutrition Malnutrition Evidence of Yes Malnutrition Exists Malnutrition (severe Chronic ): Evidenced By Suboptimal Energy Intake (Severe),Weight Loss (Severe), Physical Changes (Severe) Clinical Problem Chronic Disease or Condition Related Malnutrition Etiology severe related to inadequate energy intake and increased energy expenditure due to lung cancer Signs/Symptoms as evidenced by PO meeting <75% of estimated nutrition needs x 2-3 days, 23% unintentional weight loss x 7 months, and severe muscle/fat wasting in clavicle, temples, and orbital regions. Status Active Problem Unintended Weight Loss Etiology likely related to right sided lung cancer Signs/Symptoms as evidenced by 23% weight loss x 7 months Status Active Problem Recommendation Dietitian Adjust to liberal regular diet due to signs and Recommendations/ symptoms of malnutrition. Changes Discontinue 237ml ensure surgery TID with medpass and replace with 120ml EPHP 4x daily with medpass, pt prefers chocolate flavor. If pt continues to lose weight and has poor PO recommend nutrition support. Will monitor weight trends and provided additional ONS at needed. Lab / Micro Data 07/06/25 04:57 07/06/25 04:57 Labs: Laboratory Results - last 24 hr 07/05/25 10:59: POC Glucose 290 H 07/05/25 15:58: POC Glucose 232 H 07/05/25 21:43: POC Glucose 214 H 07/06/25 04:57: WBC 9.2, RBC 3.09 L, Hgb 6.6 L, Hct 21.9 L, MCV 70.9 L, MCH 21.4 L, MCHC 30.1 L, RDW Std Deviation 56.7 H, RDW Coeff of Tiffany 22.4 H, Plt Count 239, MPV 9.9, Immature Gran % (Auto) 0.500, Neut % (Auto) 72.3 H, Lymph % (Auto) 18.5 L, [place] % (Auto) 6.9, Eos % (Auto) 1.6, Baso % (Auto) 0.2, Absolute Neuts (auto) 6.7, Absolute Lymphs (auto) 1.70, Nucleated RBC % 0, Differential Comment , Polychromasia 1+, Basophilic Stippling RARE, Anisocytosis 1+, Ovalocytes RARE, Sodium 134, Potassium 3.7, Chloride 103, Carbon Dioxide 20.0 L, Anion Gap 11, BUN 22 H, Creatinine 1.03, Estim Creat Clear Calc 50.29, Est GFR (MDRD) Non-Af 75, BUN/Creatinine Ratio 21.0 H, Glucose 141 H, Calcium 8.6 07/06/25 06:21: POC Glucose 142 H Physical Exam Narrative Seen and examined. Patient had right hip surgery done for right hip displaced intertrochanteric fracture Complain of pain 8/10 around the operative region. Patient has dementia and irritable Physical exam General: Alert, Oriented x3, Cooperative HEENT: Atraumatic, PERRLA, EOMI, Normocephalic. Oral: No Gingival or Mucosal Lesions/ Ulcerations Neck: Supple, No JVD, Negative Carotid Bruits Chest wall/Lungs: Air entry diminished in bilateral lung bases. No crepitation/rhonchi Cardiovascular: Regular rate and rhythm, Normal S1,S2, No M/G/R Abdomen: Bowel Sounds Present, Soft, Non Tender, Non-Distended : No dysuria. No renal angle tenderness. No suprapubic tenderness. Extremities: No edema, Capillary Refill Less than 3 Seconds Skin: Right hip surgical dressing is dry. Musculoskeletal: Tenderness around right hip area. No hematoma Neurological: Cranial nerves II-XII grossly intact, DTR 2+/4. No acute focal neurological deficit. Psych/Mental Status: Dementia, irritable Assessment & Plan Assessment/Plan (1) Closed intertrochanteric fracture of right hip: QUALIFIERS: Encounter type: initial encounter Fracture alignment: displaced Qualified Code(s): S72.141A - Displaced intertrochanteric fracture of right femur, initial encounter for closed fracture (2) Fall: PLAN: Plan Patient is a 75-year-old gentleman who experienced for with resultant right hip pain.Imaging studies obtained on admission did show Fracture of the right greater trochanter, extending into the intertrochanteric line. Admitted to regular nursing floor with consultation placed orthopedic surgeon 1. Fall with right hip fracture .Imaging studies obtained on admission did show Fracture of the right greater trochanter, extending into the intertrochanteric line. Admitted to regular nursing floor treatment initiated with with immobilization, pain management consultation placed to orthopedic surgery. Decision regarding surgical intervention deferred to orthopedic surgery. - Patient perioperative Risk assessment as documented by admitting physician 07/05: Right hip ORIF with intramedullary nail fixation, locked on 07/04/[address] Nuno Campbell. Mild tenderness present. Patient on pain medication. 07/06: Still complain of pain over right hip area. 2. Physical deconditioning/debility secondary to above ? Requested for PT OT eval and social science teacher to assist with discharge planning 3. Right sided lung cancer (suprahilar, unclear exact specific type) with associated hypercalcemia of malignancy [facility] Patient to [facility] care following discharge 4. Hematuria ? Apparently traumatic following Epperson catheter insertion plan is to initiate CBI if hematuria does not resolve 5. Anemia ? Secondary to chronic disorder/anemia of malignancy. Patient was typed and crossmatched for 2 unit PRBC, subsequently monitoring H&H and transfuse if patient becomes symptomatic or hemoglobin falls below 7 07/06: Patient baseline hemoglobin is about 8.4. Gradually dropped to 7.5 and then 6.6 today. 1 unit of PRBC ordered. Hold Eliquis. Monitor CBC tomorrow 6. Diabetes mellitus type II -patient's oral hypoglycemics held. Placed on long acting insulin, Accu-Cheks a.c. and at bedtime and covered with sliding scale insulin 07/05: Glucoses elevated 180-290. Started on Lantus 10 and subcutaneous daily. 7. Tobacco dependence ? Counseled on cessation, offered nicotine patch for tobacco cravings 8. GERD ? On PPI 9. COPD ? Not in exacerbation aerosol treatments as needed 10. Dyslipidemia ? Patient is on atorvastatin did continue home dose 11. 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 Restless leg syndrome ? Patient is on ropinirole we will continue 13. Severe protein calorie malnutrition ? Evidenced by reduced BMI muscle wasting and decreased oral intake. Consult placed to dietitian Laboratory Results 07/04/25 07:50: Crossmatch See Detail 07/05/25 21:43: POC Glucose 214 H 07/06/25 04:57: WBC 9.2, RBC 3.09 L, Hgb 6.6 L, Hct 21.9 L, MCV 70.9 L, MCH 21.4 L, MCHC 30.1 L, RDW Std Deviation 56.7 H, RDW Coeff of Tiffany 22.4 H, Plt Count 239, MPV 9.9, Immature Gran % (Auto) 0.500, Neut % (Auto) 72.3 H, Lymph % (Auto) 18.5 L, [place] % (Auto) 6.9, Eos % (Auto) 1.6, Baso % (Auto) 0.2, Absolute Neuts (auto) 6.7, Absolute Lymphs (auto) 1.70, Nucleated RBC % 0, Differential Comment , Polychromasia 1+, Basophilic Stippling RARE, Anisocytosis 1+, Ovalocytes RARE, Sodium 134, Potassium 3.7, Chloride 103, Carbon Dioxide 20.0 L, Anion Gap 11, BUN 22 H, Creatinine 1.03, Estim Creat Clear Calc 50.29, Est GFR (MDRD) Non-Af 75, BUN/Creatinine Ratio 21.0 H, Glucose 141 H, Calcium 8.6 07/06/25 06:21: POC Glucose 142 H 07/06/25 11:37: POC Glucose 189 H Clinical Impression(s) from Imaging Studies Hip/Pelvis X-Ray 07/03/25 20:20 IMPRESSION: Fracture of the right greater trochanter, extending into the intertrochanteric line. Malignancy can not be excluded. Reading Location: [id number] Lower Extremity CT 07/03/25 21:54 IMPRESSION: Acute, moderately comminuted and impacted right intertrochanteric femoral fracture. No aggressive osseous lesions. Reading Location: [id number] Hip X-Ray 07/04/25 10:00 IMPRESSION: Postsurgical changes for repair of right femoral fracture with no acute complications. Reading Location: [id number] Charges/Coding Visit Charges Inpatient E&M: 21934 Subs Hosp L2
--- NOTE | 2025-07-06 12:19 | CASEMGMT ---
Addendum entered by Annie Fuentes 07/06/25 13:08: [facility] has accepted. HEATHER HUDSON updated and will [facility]. Annie Fuentes DC Planning Asst. Original Note: Discharge Planning [facility]. Annie Fuentes DC Planning Asst.
[2025-07-07] MEDS: prednisoLONE eye drops (5 mL) 1 DROP OPTH.BTL 1 DRP LEFT EYE ×4 (00:30→17:52)
[2025-07-07 05:36] VITALS: BMI 17.4
[2025-07-07 06:19] LABS: Hematocrit 25.6 % (40-54); Hemoglobin 8.0 g/dL (13.0-16.5); Immature Granulocytes Count 0.040 X10^3/uL (0.0-0.0); Mean Corp Hgb Conc 31.3 g/dL (32-36); Mean Corpuscular Volume 71.3 fL (80-94); Mean Platelet Vol. 9.7 fl (6.2-12.0); NRBC Flagged by Analyzer 0 % (0-5); POSITIVE MORPHOLOGY YES; Platelet Count 234 K/mm3 (150-450); RBC Distribution Width CV 21.1 % (11.6-14.6); RBC Distribution Width SD 54.1 fl (35.1-43.9); Red Blood Count 3.59 M/mm3 (4.6-6.2); White Blood Count 10.5 K/mm3 (4.4-11.0)
[2025-07-07 06:22] LABS: Differential Indicated SCAN CRITERIA MET
[2025-07-07 06:35] LABS: Anion Gap 9 (5-15); BUN 21 mg/dL (4-19); BUN/Creat Ratio 23.6 RATIO (10-20); Calcium,Total 8.7 mg/dL (7.6-11.0); Carbon Dioxide 23.0 mmol/L (21.0-32.0); Chloride 104 mmol/L (98-108); Estimated Creatinine Clearance 58.14 ml/min (50-250); Glucose 186 mg/dL (70-99); Potassium 4.4 mmol/L (3.3-5.1)
[2025-07-07] MEDS: Budesonide Respules 0.5 MG/2 ML AMPUL.NEB. INHALATION (07:07)
[2025-07-07 07:10] VITALS: PULSE 101; RESP 18
[2025-07-07 07:19] LABS: Anisocytosis 1+; Polychromasia 1+
[2025-07-07 07:46] VITALS: O2SAT 91
[2025-07-07] MEDS: Calcium (Elemental) 500 MG Tablet 1500 MG PO (08:09)
[2025-07-07] MEDS: Glycerin/Hypromellose/PEG400 15 ml Bottle 1 DRP EACH EYE ×3 (08:10→17:51)
[2025-07-07] MEDS: Senna/Docusate Sodium 1 Tablet 2 TABLET PO (08:11)
[2025-07-07] MEDS: Ensure Plus High Protein 120 ML LIQUID PO ×3 (08:12→17:52)
[2025-07-07] MEDS: Polyethylene Glycol 3350 17 GM PACKET PO (08:12)
[2025-07-07] MEDS: Insulin Glargine-YFGN 100 UNIT/ML Pen 10 UNIT SC (08:13)
--- NOTE | 2025-07-07 09:57 | CASEMGMT ---
TC from Ramy at [facility] requesting an update on dc dispo. Made her aware that this RN CM is awaiting approval from the [facility] for SNF placement. She states in the notes it is approved and provided a ref #of [id number]. TC to Valarie COHEN to confirm this and to obtain this in writing, left message on her vm.
--- NOTE | 2025-07-07 11:58 | CASEMGMT ---
Social Work- SW met with pt and pt dtr Kimberley to discuss HCPOA. Pt dtr discussed concerns about the person reporting to be pt girlfriend making decisions. Pt reports agreement with completion of documents. SW provided education on implementation and parameters of directives. SW verified pt was oriented x 4. Pt is awaiting addresses and phone numbers for family in [facility], where pt resided previously, to complete directives. SW remains available to follow. JERE Bruce
--- NOTE | 2025-07-07 14:01 | PCM.PN.HOSP ---
Reason for Visit Chief Complaint: Fall, R hip pain. Objective Data Objective Data Vital Signs: Vital Signs Temp Pulse Resp BP Pulse Ox O2 Del Method O2 Flow Rate 98.9 F 101 H 18 146/94 H 91 Nasal Cannula 2 07/06/25 22:04 07/07/25 07:10 07/07/25 07:10 07/06/25 22:04 07/07/25 07:46 07/07/25 07:46 07/07/25 09:32 FiO2 2 07/05/25 21:24 Oxygen Flow Rate (L/min) 2 Oxygen Delivery Method Nasal Cannula Weight: 131 lb 13.383 oz Body Mass Index (BMI) 17.4 Intake & Output: Intake and Output for Last 24 Hours 07/05/25 07/06/25 07/07/25 23:59 23:59 23:59 Intake Total 1146.25 / 1346.25 440 / 440 150 / 150 Output Total 450 / 450 275 / 550 475 / 475 Balance 696.25 / 896.25 165 / -110 -325 / -325 Medical Nutrition Assessment Dietitian: Malnutrition Criteria Met Start: 07/05/25 10:37 Freq: Status: Active Protocol: Document 07/05/25 10:37 SB (Rec: 07/05/25 10:37 SB [id number]) Nutrition Malnutrition Evidence of Yes Malnutrition Exists Malnutrition (severe Chronic ): Evidenced By Suboptimal Energy Intake (Severe),Weight Loss (Severe), Physical Changes (Severe) Clinical Problem Chronic Disease or Condition Related Malnutrition Etiology severe related to inadequate energy intake and increased energy expenditure due to lung cancer Signs/Symptoms as evidenced by PO meeting <75% of estimated nutrition needs x 2-3 days, 23% unintentional weight loss x 7 months, and severe muscle/fat wasting in clavicle, temples, and orbital regions. Status Active Problem Unintended Weight Loss Etiology likely related to right sided lung cancer Signs/Symptoms as evidenced by 23% weight loss x 7 months Status Active Problem Recommendation Dietitian Adjust to liberal regular diet due to signs and Recommendations/ symptoms of malnutrition. Changes Discontinue 237ml ensure surgery TID with medpass and replace with 120ml EPHP 4x daily with medpass, pt prefers chocolate flavor. If pt continues to lose weight and has poor PO recommend nutrition support. Will monitor weight trends and provided additional ONS at needed. Lab / Micro Data 07/07/25 05:38 07/07/25 05:38 Labs: Laboratory Results - last 24 hr 07/04/25 07:50: Crossmatch See Detail 07/06/25 16:35: POC Glucose 213 H 07/06/25 22:20: POC Glucose 183 H 07/07/25 05:38: WBC 10.5, RBC 3.59 L, Hgb 8.0 L, Hct 25.6 L, MCV 71.3 L, MCH 22.3 L, MCHC 31.3 L, RDW Std Deviation 54.1 H, RDW Coeff of Tiffany 21.1 H, Plt Count 234, MPV 9.7, Immature Gran % (Auto) 0.400, Neut % (Auto) 71.4 H, Lymph % (Auto) 19.0, [place] % (Auto) 7.8, Eos % (Auto) 1.3, Baso % (Auto) 0.1, Absolute Neuts (auto) 7.5, Absolute Lymphs (auto) 1.99, Nucleated RBC % 0, Platelet Estimate ADEQUATE, Polychromasia 1+, Anisocytosis 1+, Sodium 136, Potassium 4.4, Chloride 104, Carbon Dioxide 23.0, Anion Gap 9, BUN 21 H, Creatinine 0.90, Estim Creat Clear Calc 58.14, Est GFR (MDRD) Non-Af 88, BUN/Creatinine Ratio 23.6 H, Glucose 186 H, Calcium 8.7 07/07/25 06:22: POC Glucose 185 H 07/07/25 11:40: POC Glucose 208 H Physical Exam Narrative Seen and examined. I talked to the patient's daughter, Kimberley in the patient's room. Complained of pain about her right hip area. Patient had right hip surgery done for right hip displaced intertrochanteric fracture Physical exam General: Alert, Oriented x3, Cooperative HEENT: Atraumatic, PERRLA, EOMI, Normocephalic. Oral: No Gingival or Mucosal Lesions/ Ulcerations Neck: Supple, No JVD, Negative Carotid Bruits Chest wall/Lungs: Air entry diminished in bilateral lung bases. No crepitation/rhonchi Cardiovascular: Regular rate and rhythm, Normal S1,S2, No M/G/R Abdomen: Bowel Sounds Present, Soft, Non Tender, Non-Distended : No dysuria. No renal angle tenderness. No suprapubic tenderness. Extremities: No edema, Capillary Refill Less than 3 Seconds Skin: Right hip surgical dressing is dry. Musculoskeletal: Tenderness around right hip area. No hematoma Neurological: Cranial nerves II-XII grossly intact, DTR 2+/4. No acute focal neurological deficit. Psych/Mental Status: Dementia, irritable Assessment & Plan Assessment/Plan (1) Closed intertrochanteric fracture of right hip: QUALIFIERS: Encounter type: initial encounter Fracture alignment: displaced Qualified Code(s): S72.141A - Displaced intertrochanteric fracture of right femur, initial encounter for closed fracture (2) Fall: PLAN: Plan Patient is a 75-year-old gentleman who experienced for with resultant right hip pain.Imaging studies obtained on admission did show Fracture of the right greater trochanter, extending into the intertrochanteric line. Admitted to regular nursing floor with consultation placed orthopedic surgeon 1. Fall with right hip fracture .Imaging studies obtained on admission did show Fracture of the right greater trochanter, extending into the intertrochanteric line. Admitted to regular nursing floor treatment initiated with with immobilization, pain management consultation placed to orthopedic surgery. Decision regarding surgical intervention deferred to orthopedic surgery. - Patient perioperative Risk assessment as documented by admitting physician 07/05: Right hip ORIF with intramedullary nail fixation, locked on 07/04/[address] Nuno Campbell. Mild tenderness present. Patient on pain medication. 07/06: Still complain of pain over right hip area. 07/24: Patient sitting on the recliner. Pain is better. Waiting for pre-CERT 2. Physical deconditioning/debility secondary to above ? Requested for PT OT eval and social media analyst to assist with discharge planning 3. Right sided lung cancer (suprahilar, unclear exact specific type) with associated hypercalcemia of malignancy [facility] Patient to resume care following discharge 4. Hematuria ? Apparently traumatic following Epperson catheter insertion plan is to initiate CBI if hematuria does not resolve 5. Anemia ? Secondary to chronic disorder/anemia of malignancy. Patient was typed and crossmatched for 2 unit PRBC, subsequently monitoring H&H and transfuse if patient becomes symptomatic or hemoglobin falls below 7 07/06: Patient baseline hemoglobin is about 8.4. Gradually dropped to 7.5 and then 6.6 today. 1 unit of PRBC ordered. Hold Eliquis. Monitor CBC tomorrow 07/07: H&H improved to 8.0/25.6%. Had 1 unit of PRBC transfusion. 6. Diabetes mellitus type II -patient's oral hypoglycemics held. Placed on long acting insulin, Accu-Cheks a.c. and at bedtime and covered with sliding scale insulin 07/05: Glucoses elevated 180-290. Started on Lantus 10 and subcutaneous daily. 7. Tobacco dependence ? Counseled on cessation, offered nicotine patch for tobacco cravings 8. GERD ? On PPI 9. COPD ? Not in exacerbation aerosol treatments as needed 10. Dyslipidemia ? 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 Restless leg syndrome ? Patient is on ropinirole we will continue 13. Severe protein calorie malnutrition ? Evidenced by reduced BMI muscle wasting and decreased oral intake. Consult placed to dietitian Laboratory Results 07/04/25 07:50: Crossmatch See Detail 07/06/25 16:35: POC Glucose 213 H 07/06/25 22:20: POC Glucose 183 H 07/07/25 05:38: WBC 10.5, RBC 3.59 L, Hgb 8.0 L, Hct 25.6 L, MCV 71.3 L, MCH 22.3 L, MCHC 31.3 L, RDW Std Deviation 54.1 H, RDW Coeff of Tiffany 21.1 H, Plt Count 234, MPV 9.7, Immature Gran % (Auto) 0.400, Neut % (Auto) 71.4 H, Lymph % (Auto) 19.0, [place] % (Auto) 7.8, Eos % (Auto) 1.3, Baso % (Auto) 0.1, Absolute Neuts (auto) 7.5, Absolute Lymphs (auto) 1.99, Nucleated RBC % 0, Platelet Estimate ADEQUATE, Polychromasia 1+, Anisocytosis 1+, Sodium 136, Potassium 4.4, Chloride 104, Carbon Dioxide 23.0, Anion Gap 9, BUN 21 H, Creatinine 0.90, Estim Creat Clear Calc 58.14, Est GFR (MDRD) Non-Af 88, BUN/Creatinine Ratio 23.6 H, Glucose 186 H, Calcium 8.7 07/07/25 06:22: POC Glucose 185 H 07/07/25 11:40: POC Glucose 208 H Clinical Impression(s) from Imaging Studies Hip/Pelvis X-Ray 07/03/25 20:20 IMPRESSION: Fracture of the right greater trochanter, extending into the intertrochanteric line. Malignancy can not be excluded. Reading Location: [id number] Lower Extremity CT 07/03/25 21:54 IMPRESSION: Acute, moderately comminuted and impacted right intertrochanteric femoral fracture. No aggressive osseous lesions. Reading Location: [id number] Hip X-Ray 07/04/25 10:00 IMPRESSION: Postsurgical changes for repair of right femoral fracture with no acute complications. Reading Location: [id number] Charges/Coding Visit Charges Inpatient E&M: 96249 Subs Hosp L2
--- NOTE | 2025-07-07 15:08 | PCM.TXEXTCAR ---
Diet Diet Order/Speech Therapy: INPATIENT Hospital Diet / Speech Therapy Order(s) 07/05/25 10:37 Diet: Regular - General Food consistency:: Regular Liquid Consistency:: Regular/Thin Routine Orders/Code Status Suppository Type: Dulcolax 10mg Suppository Frequency: Daily PRN Routine Lab Work: CBC (CBC in 3 days) DC O2, CPAP, BIPAP needs Home O2 Discharge instructions: Yes Type of respiratory needs?: Oxygen Oxygen frequency: Continuous Continuous oxygen liters per minute: 2 Wound(s) right hip: Wound Type: Surgical Incision Therapies Extremity Affected:: Bilateral Lower Physical Therapy: Eval and Treat Occupational Therapy: Eval and Treat Speech Therapy: Eval and Treat Problem/Diagnosis (1) Closed intertrochanteric fracture of right hip: Status: Acute Code(s): S72.141A - Displaced intertrochanteric fracture of right femur, initial encounter for closed fracture (2) Fall: Status: Acute Code(s): W19.XXXA - Unspecified fall, initial encounter Plan Patient is a 75-year-old gentleman who experienced for with resultant right hip pain.Imaging studies obtained on admission did show Fracture of the right greater trochanter, extending into the intertrochanteric line. Admitted to regular nursing floor with consultation placed orthopedic surgeon 1. Fall with right hip fracture .Imaging studies obtained on admission did show Fracture of the right greater trochanter, extending into the intertrochanteric line. Admitted to regular nursing floor treatment initiated with with immobilization, pain management consultation placed to orthopedic surgery. Decision regarding surgical intervention deferred to orthopedic surgery. - Patient perioperative Risk assessment as documented by admitting physician 07/05: Right hip ORIF with intramedullary nail fixation, locked on 07/04/[address] Nuno Campbell. Mild tenderness present. Patient on pain medication. 07/06: Still complain of pain over right hip area. 07/24: Patient sitting on the recliner. Pain is better. Waiting for pre-CERT 2. Physical deconditioning/debility secondary to above ? Requested for PT OT eval and web content & social media manager to assist with discharge planning 3. Right sided lung cancer (suprahilar, unclear exact specific type) with associated hypercalcemia of malignancy [facility] to [facility] care following discharge 4. Hematuria ? Apparently traumatic following Epperson catheter insertion plan is to initiate CBI if hematuria does not resolve 5. Anemia ? Secondary to chronic disorder/anemia of malignancy. Patient was typed and crossmatched for 2 unit PRBC, subsequently monitoring H&H and transfuse if patient becomes symptomatic or hemoglobin falls below 7 07/06: Patient baseline hemoglobin is about 8.4. Gradually dropped to 7.5 and then 6.6 today. 1 unit of PRBC ordered. Hold Eliquis. Monitor CBC tomorrow 07/07: H&H improved to 8.0/25.6%. Had 1 unit of PRBC transfusion. 6. Diabetes mellitus type II -patient's oral hypoglycemics held. Placed on long acting insulin, Accu-Cheks a.c. and at bedtime and covered with sliding scale insulin 07/05: Glucoses elevated 180-290. Started on Lantus 10 and subcutaneous daily. 7. Tobacco dependence ? Counseled on cessation, offered nicotine patch for tobacco cravings 8. GERD ? On PPI 9. COPD ? Not in exacerbation aerosol treatments as needed 10. Dyslipidemia ? Patient is on atorvastatin did continue home dose 11. 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 Restless leg syndrome ? Patient is on ropinirole we will continue 13. Severe protein calorie malnutrition ? Evidenced by reduced BMI muscle wasting and decreased oral intake. Consult placed to dietitian Laboratory Results 07/04/25 07:50: Crossmatch See Detail 07/06/25 16:35: POC Glucose 213 H 07/06/25 22:20: POC Glucose 183 H 07/07/25 05:38: WBC 10.5, RBC 3.59 L, Hgb 8.0 L, Hct 25.6 L, MCV 71.3 L, MCH 22.3 L, MCHC 31.3 L, RDW Std Deviation 54.1 H, RDW Coeff of Tiffany 21.1 H, Plt Count 234, MPV 9.7, Immature Gran % (Auto) 0.400, Neut % (Auto) 71.4 H, Lymph % (Auto) 19.0, [place] % (Auto) 7.8, Eos % (Auto) 1.3, Baso % (Auto) 0.1, Absolute Neuts (auto) 7.5, Absolute Lymphs (auto) 1.99, Nucleated RBC % 0, Platelet Estimate ADEQUATE, Polychromasia 1+, Anisocytosis 1+, Sodium 136, Potassium 4.4, Chloride 104, Carbon Dioxide 23.0, Anion Gap 9, BUN 21 H, Creatinine 0.90, Estim Creat Clear Calc 58.14, Est GFR (MDRD) Non-Af 88, BUN/Creatinine Ratio 23.6 H, Glucose 186 H, Calcium 8.7 07/07/25 06:22: POC Glucose 185 H 07/07/25 11:40: POC Glucose 208 H Clinical Impression(s) from Imaging Studies Hip/Pelvis X-Ray 07/03/25 20:20 IMPRESSION: Fracture of the right greater trochanter, extending into the intertrochanteric line. Malignancy can not be excluded. Reading Location: [facility] Lower Extremity CT 07/03/25 21:54 IMPRESSION: Acute, moderately comminuted and impacted right intertrochanteric femoral fracture. No aggressive osseous lesions. Reading Location: [facility] Hip X-Ray 07/04/25 10:00 IMPRESSION: Postsurgical changes for repair of right femoral fracture with no acute complications. Reading Location: [facility] Allergies/Procedures Done in Hospital Allergies No Known Allergies Allergy (Verified 05/11/25 14:05) Type of Care/Length of Stay Estimated LOS: Convalescent Care Less Than 30 days Type of Care Needed: Skilled Rehab Potential: Good Prognosis: Good Additional Orders/Day of Discharge Day of Discharge: 07/07/25 Dietary and Speech Recommendations Dietitian Recommendations/Changes: Adjust to liberal regular diet due to signs and symptoms of malnutrition. Discontinue 237ml ensure surgery TID with medpass and replace with 120ml EPHP 4x daily with medpass, pt prefers chocolate flavor. If pt continues to lose weight and has poor PO recommend nutrition support. Will monitor weight trends and provided additional ONS at needed. Discharge Plan Admission Admit Date/Time: 07/03/25 22:54 Primary Reason for Your Visit: Right hip fracture Attending Provider: Anthony Salgado Primary Care Provider: Carlene Haji Consulting Providers: Johanne Evans; Nuno Campbell; Uche Felix Discharge Orders/Prescriptions Prescriptions: New acetaminophen 500 mg Tablet 1,000 mg PO Q8 Qty: 0 0RF Rx Instructions: 1 g every 8 hourly for 1 week and then Q8 hourly as needed for severe pain Eliquis 5 mg Tablet 2.5 mg PO BID 28 Days Qty: 28 0RF Rx Instructions: Start from 07/08/2025. Discontinue if platelet count drops less than 50,000 or hemoglobin less than 8 g% Continued gabapentin 300 MG capsule 300 mg PO TID cyclobenzaprine 10 mg Tablet 10 mg PO TID PRN (Reason: muscle spasms) amlodipine 5 mg Tablet 10 mg PO QHS budesonide-formoterol [Symbicort] 80-4.5 mcg/actuation Hfa Aerosol Inhaler 2 puff INHALATION BID sildenafil 100 mg Tablet 100 mg PO DAILY PRN (Reason: Erectile Dysfunction) atorvastatin 80 mg tablet 80 mg PO QHS Qty: 90 0RF insulin aspart U-100 [Novolog FlexPen U-100 Insulin] 100 unit/mL (3 mL) insulin pen 10 unit subcut TIDCM ropinirole 1 mg tablet 1 mg PO QHS insulin glargine [Lantus Solostar U-100 Insulin] 100 unit/mL (3 mL) insulin pen 10 unit subcut QPM Rx Instructions: PT STATES USES 10-15U QHS magnesium hydroxide [Gentle Laxative (mag hydrox)] 400 mg/5 mL suspension 5 ml PO DAILY PRN (Reason: constipation) sennosides-docusate sodium [Senna with Docusate Sodium] 8.6-50 mg tablet 2 tab-cap PO DAILY melatonin 3 mg tablet 3 mg PO QHS polyethylene glycol 3350 17 gram powder in packet 17 g PO DAILY ferrous sulfate [Feosol] 325 mg (65 mg iron) tablet 325 mg PO .every other day lidocaine 5 % adhesive patch,medicated 2 patch topical DAILY PRN (Reason: pain) Rx Instructions: leave on most painful area for up to 12 hrs cyclopentolate 2 % drops 1 drp LEFT EYE QHS calcium carbonate 500 mg calcium (1,250 mg) tablet 1,500 mg PO DAILY polyvinyl alcohol-povidone 1.4-0.6 % drops 1 drp ophthalmic (eye) 4X/DAY Rx Instructions: 1 drop each eye; pantoprazole [Protonix] 40 mg tablet,delayed release (DR/EC) 40 mg PO DAILY prednisolone acetate 1 % drops,suspension 1 drp LEFT EYE Q6H tiotropium-olodaterol 2.5-2.5 mcg/actuation mist 2 puff inhalation DAILY nicotine [Nicoderm CQ] 14 mg/24 hr patch 24 hour 1 patch transdermal DAILY Rx Instructions: apply every morning and remove at HS albuterol 90 mcg/actuation aerosol 90 mcg inhalation Q4H PRN Changed oxycodone 5 mg tablet 2.5 mg PO Q6H PRN (Reason: pain) 3 Days Qty: 7 0RF Held aspirin 81 mg Tablet,Delayed Release (Dr/Ec) 81 mg PO DAILY Hold Instructions: Hold while taking Eliquis. Discontinued acetaminophen 325 mg tablet 650 mg PO Q4H PRN (Reason: pain) Referrals / Follow Up: Nuno Campbell MD [Med Staff - Active Staff] - Within 2 Weeks Carlene Haji ASSEMBLY INSPECTOR HELPER-C [Primary Care Provider] - Within 2 Weeks Disposition Disposition (needs filled in before D/C Order can be placed): Custodial Facility (1) Closed intertrochanteric fracture of right hip Qualifiers: Encounter type: initial encounter Fracture alignment: displaced Qualified Code(s): S72.141A - Displaced intertrochanteric fracture of right femur, initial encounter for closed fracture
--- NOTE | 2025-07-07 15:17 | PCM.DC.SUM ---
Providers Date of Admission: 07/03/25 Date of Discharge: 07/07/25 Primary Care Physician: Carlene Haji, SECONDARY HISTORY TEACHER-C Consultations 07/03/25 23:57 Consult: Orthopedics Routine Consulting Provider: Nuno Campbell Reason for Consult: Fall, R hip fracture EMERGENT Consult: No MD Notified: Yes Date Notified: 07/03/25 Time Notified: 23:14 Method of Notification: Verbal Reason For Visit: FALL, R HIP FX Diagnosis Discharge Diagnosis (1) Closed intertrochanteric fracture of right hip: Status: Acute Code(s): S72.141A - Displaced intertrochanteric fracture of right femur, initial encounter for closed fracture Qualifiers: Encounter type: initial encounter Fracture alignment: displaced Qualified Code(s): S72.141A - Displaced intertrochanteric fracture of right femur, initial encounter for closed fracture (2) Fall: Status: Acute Code(s): W19.XXXA - Unspecified fall, initial encounter Plan Patient is a 75-year-old gentleman who experienced for with resultant right hip pain.Imaging studies obtained on admission did show Fracture of the right greater trochanter, extending into the intertrochanteric line. Admitted to regular nursing floor with consultation placed orthopedic surgeon 1. Fall with right hip fracture .Imaging studies obtained on admission did show Fracture of the right greater trochanter, extending into the intertrochanteric line. Admitted to regular nursing floor treatment initiated with with immobilization, pain management consultation placed to orthopedic surgery. Decision regarding surgical intervention deferred to orthopedic surgery. - Patient perioperative Risk assessment as documented by admitting physician 07/05: Right hip ORIF with intramedullary nail fixation, locked on 07/04/[address] Nuno Campbell. Mild tenderness present. Patient on pain medication. 07/06: Still complain of pain over right hip area. 07/07: Patient sitting on the recliner. Pain is better. Pre-CERT obtained. Patient did not discharge. Advised to resume Eliquis 2.5 mg twice daily from tomorrow with follow-up CBC in 3 days recheck with PCP. Hold baby aspirin while taking Eliquis. 2. Physical deconditioning/debility secondary to above ? Requested for PT OT eval and social media campaign manager to assist with discharge planning 3. Right sided lung cancer (suprahilar, unclear exact specific type) with associated hypercalcemia of malignancy with recent transition to [place] system. Patient to resume care following discharge 4. Hematuria ? Apparently traumatic following Epperson catheter insertion plan is to initiate CBI if hematuria does not resolve 5. Anemia ? Secondary to chronic disorder/anemia of malignancy. Patient was typed and crossmatched for 2 unit PRBC, subsequently monitoring H&H and transfuse if patient becomes symptomatic or hemoglobin falls below 7 07/06: Patient baseline hemoglobin is about 8.4. Gradually dropped to 7.5 and then 6.6 today. 1 unit of PRBC ordered. Hold Eliquis. Monitor CBC tomorrow 07/07: H&H improved to 8.0/25.6%. Had 1 unit of PRBC transfusion. 6. Diabetes mellitus type II -patient's oral hypoglycemics held. Placed on long acting insulin, Accu-Cheks a.c. and at bedtime and covered with sliding scale insulin 07/05: Glucoses elevated 180-290. Started on Lantus 10 and subcutaneous daily. 07/07: Glucoses reasonably controlled. 7. Tobacco dependence ? Counseled on cessation, offered nicotine patch for tobacco cravings 8. GERD ? On PPI 9. COPD ? Not in exacerbation aerosol treatments as needed 10. Dyslipidemia ? Patient is on atorvastatin did continue home dose 11. 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 Restless leg syndrome ? Patient is on ropinirole we will continue 13. Severe protein calorie malnutrition ? Evidenced by reduced BMI muscle wasting and decreased oral intake. Consult placed to dietitian Discharge medication reconciliation done. Discharge follow-up instructions completed. Discharge process discussed with the patient and all questions were answered to patient's satisfaction. Follow with PCP in 1 to 2 weeks Total time spent, exact 35 minutes on discharge meds reconciliation, examination, coordination of care with nurses and ancillary staff, review of imaging and blood test and discussion with the patient on follow-up instructions. Laboratory Results 07/04/25 07:50: Crossmatch See Detail 07/06/25 16:35: POC Glucose 213 H 07/06/25 22:20: POC Glucose 183 H 07/07/25 05:38: WBC 10.5, RBC 3.59 L, Hgb 8.0 L, Hct 25.6 L, MCV 71.3 L, MCH 22.3 L, MCHC 31.3 L, RDW Std Deviation 54.1 H, RDW Coeff of Tiffany 21.1 H, Plt Count 234, MPV 9.7, Immature Gran % (Auto) 0.400, Neut % (Auto) 71.4 H, Lymph % (Auto) 19.0, [place] % (Auto) 7.8, Eos % (Auto) 1.3, Baso % (Auto) 0.1, Absolute Neuts (auto) 7.5, Absolute Lymphs (auto) 1.99, Nucleated RBC % 0, Platelet Estimate ADEQUATE, Polychromasia 1+, Anisocytosis 1+, Sodium 136, Potassium 4.4, Chloride 104, Carbon Dioxide 23.0, Anion Gap 9, BUN 21 H, Creatinine 0.90, Estim Creat Clear Calc 58.14, Est GFR (MDRD) Non-Af 88, BUN/Creatinine Ratio 23.6 H, Glucose 186 H, Calcium 8.7 07/07/25 06:22: POC Glucose 185 H 07/07/25 11:40: POC Glucose 208 H Clinical Impression(s) from Imaging Studies Hip/Pelvis X-Ray 07/03/25 20:20 IMPRESSION: Fracture of the right greater trochanter, extending into the intertrochanteric line. Malignancy can not be excluded. Reading Location: [facility] Lower Extremity CT 07/03/25 21:54 IMPRESSION: Acute, moderately comminuted and impacted right intertrochanteric femoral fracture. No aggressive osseous lesions. Reading Location: [facility] Hip X-Ray 07/04/25 10:00 IMPRESSION: Postsurgical changes for repair of right femoral fracture with no acute complications. Reading Location: [facility] Medications at Discharge Home Medications gabapentin 300 mg capsule 300 mg PO TID neuropathy 02/24/15 amlodipine 5 mg tablet 10 mg PO QHS blood pressure 05/09/21 aspirin 81 mg tablet,delayed release 81 mg PO DAILY heart health 05/09/21 Held on 07/07/25. Instructions: Hold while taking Eliquis. budesonide-formoterol HFA 80 mcg-4.5 mcg/actuation aerosol inhaler (Symbicort) 2 puff inhalation BID COPD 05/09/21 cyclobenzaprine 10 mg tablet 10 mg PO TID PRN muscle spasms 05/09/21 sildenafil 100 mg tablet 100 mg PO DAILY PRN Erectile Dysfunction 05/09/21 atorvastatin 80 mg tablet 80 mg PO QHS cholesterol #90 tabs 05/12/21 insulin aspart U-100 100 unit/mL (3 mL) subcutaneous pen (Novolog FlexPen U-100 Insulin aspart) 10 unit subcut TIDCM DM 12/12/24 insulin glargine 100 unit/mL (3 mL) subcutaneous pen (Lantus Solostar U-100 Insulin) 10 unit subcut QPM Dm 05/04/25 magnesium hydroxide 400 mg/5 mL oral suspension (Gentle Laxative (magnesium hydroxide)) 5 ml PO DAILY PRN constipation 05/04/25 ropinirole 1 mg tablet 1 mg PO QHS rls 05/04/25 albuterol 90 mcg/actuation aerosol inhaler 90 mcg inhalation Q4H PRN sob 07/04/25 calcium carbonate 1,500 mg PO DAILY supplement 07/04/25 cyclopentolate 2 % eye drops 1 drp LEFT EYE QHS inflamation 07/04/25 ferrous sulfate 325 mg (65 mg iron) tablet (Feosol) 325 mg PO .every other day supplement 07/04/25 lidocaine 5 % topical patch 2 patch topical DAILY PRN pain 07/04/25 melatonin 3 mg tablet 3 mg PO QHS sleep 07/04/25 nicotine 14 mg/24 hr daily transdermal patch (Nicoderm CQ) 1 patch transdermal DAILY smoking cessation 07/04/25 pantoprazole 40 mg tablet,delayed release (Protonix) 40 mg PO DAILY heart burn 07/04/25 polyethylene glycol 3350 17 gram oral powder packet 17 g PO DAILY constipation 07/04/25 polyvinyl alcohol-povidone 1.4 %-0.6 % eye drops 1 drp ophthalmic (eye) 4X/DAY dry eye 07/04/25 prednisolone acetate 1 % eye drops,suspension 1 drp LEFT EYE Q6H inflamation 07/04/25 sennosides 8.6 mg-docusate sodium 50 mg tablet (Senna with Docusate Sodium) 2 tab-cap PO DAILY stool softener 07/04/25 tiotropium 2.5 mcg-olodaterol 2.5 mcg/actuation mist for inhalation 2 puff inhalation DAILY asthma 07/04/25 acetaminophen 500 mg tablet 1,000 mg (2 x 500 mg) PO Q8 #0 tabs 07/07/25 apixaban 5 mg tablet (Eliquis) 2.5 mg (1/2 x 5 mg) PO BID 4 weeks #28 tabs 07/07/25 oxycodone 5 mg tablet 2.5 mg (1/2 x 5 mg) PO Q6H PRN pain 3 days #7 tabs 07/07/25 Physical Exam Narrative Please see exam finding on the progress note for the same day Medical Records Data Medical Nutrition Assessment Dietitian: Malnutrition Criteria Met Start: 07/05/25 10:37 Freq: Status: Active Protocol: Document 07/05/25 10:37 SB (Rec: 07/05/25 10:37 SB [id number]) Nutrition Malnutrition Evidence of Yes Malnutrition Exists Malnutrition (severe Chronic ): Evidenced By Suboptimal Energy Intake (Severe),Weight Loss (Severe), Physical Changes (Severe) Clinical Problem Chronic Disease or Condition Related Malnutrition Etiology severe related to inadequate energy intake and increased energy expenditure due to lung cancer Signs/Symptoms as evidenced by PO meeting <75% of estimated nutrition needs x 2-3 days, 23% unintentional weight loss x 7 months, and severe muscle/fat wasting in clavicle, temples, and orbital regions. Status Active Problem Unintended Weight Loss Etiology likely related to right sided lung cancer Signs/Symptoms as evidenced by 23% weight loss x 7 months Status Active Problem Recommendation Dietitian Adjust to liberal regular diet due to signs and Recommendations/ symptoms of malnutrition. Changes Discontinue 237ml ensure surgery TID with medpass and replace with 120ml EPHP 4x daily with medpass, pt prefers chocolate flavor. If pt continues to lose weight and has poor PO recommend nutrition support. Will monitor weight trends and provided additional ONS at needed. Weight / BMI Weight Weight: 131 lb 13.383 oz Body Mass Index (BMI) 17.4 ABG / Lab / Microbiology Data 07/07/25 05:38 07/07/25 05:38 Laboratory: Laboratory Results - last 24 hr 07/04/25 07:50: Crossmatch See Detail 07/06/25 16:35: POC Glucose 213 H 07/06/25 22:20: POC Glucose 183 H 07/07/25 05:38: WBC 10.5, RBC 3.59 L, Hgb 8.0 L, Hct 25.6 L, MCV 71.3 L, MCH 22.3 L, MCHC 31.3 L, RDW Std Deviation 54.1 H, RDW Coeff of Tiffany 21.1 H, Plt Count 234, MPV 9.7, Immature Gran % (Auto) 0.400, Neut % (Auto) 71.4 H, Lymph % (Auto) 19.0, [place] % (Auto) 7.8, Eos % (Auto) 1.3, Baso % (Auto) 0.1, Absolute Neuts (auto) 7.5, Absolute Lymphs (auto) 1.99, Nucleated RBC % 0, Platelet Estimate ADEQUATE, Polychromasia 1+, Anisocytosis 1+, Sodium 136, Potassium 4.4, Chloride 104, Carbon Dioxide 23.0, Anion Gap 9, BUN 21 H, Creatinine 0.90, Estim Creat Clear Calc 58.14, Est GFR (MDRD) Non-Af 88, BUN/Creatinine Ratio 23.6 H, Glucose 186 H, Calcium 8.7 07/07/25 06:22: POC Glucose 185 H 07/07/25 11:40: POC Glucose 208 H D/C Instructions DC O2, CPAP, BIPAP Needs Home O2 Discharge instructions: Yes Type of respiratory needs?: Oxygen Oxygen frequency: Continuous Continuous oxygen liters per minute: 2 DC home with Oxygen: Yes Home O2 MD Review: I have reviewed the oxygen testing, and the patient qualifies for home oxygen equipment and portability. The patient is mobile in the home and the community. Meaningful Use Info Meaningful Use Meaningful Use Diagnoses (Choose all that apply): None applicable Discharge Plan Admission Admit Date/Time: 07/03/25 22:54 Primary Reason for Your Visit: Right hip fracture Attending Provider: Anthony Salgado Primary Care Provider: Carlene Haji Consulting Providers: Johanne Evans; Nuno Campbell; Uche Felix Discharge Orders/Prescriptions Prescriptions: New acetaminophen 500 mg Tablet 1,000 mg PO Q8 Qty: 0 0RF Rx Instructions: 1 g every 8 hourly for 1 week and then Q8 hourly as needed for severe pain Eliquis 5 mg Tablet 2.5 mg PO BID 28 Days Qty: 28 0RF Rx Instructions: Start from 07/08/2025. Discontinue if platelet count drops less than 50,000 or hemoglobin less than 8 g% Continued gabapentin 300 MG capsule 300 mg PO TID cyclobenzaprine 10 mg Tablet 10 mg PO TID PRN (Reason: muscle spasms) amlodipine 5 mg Tablet 10 mg PO QHS budesonide-formoterol [Symbicort] 80-4.5 mcg/actuation Hfa Aerosol Inhaler 2 puff INHALATION BID sildenafil 100 mg Tablet 100 mg PO DAILY PRN (Reason: Erectile Dysfunction) atorvastatin 80 mg tablet 80 mg PO QHS Qty: 90 0RF insulin aspart U-100 [Novolog FlexPen U-100 Insulin] 100 unit/mL (3 mL) insulin pen 10 unit subcut TIDCM ropinirole 1 mg tablet 1 mg PO QHS insulin glargine [Lantus Solostar U-100 Insulin] 100 unit/mL (3 mL) insulin pen 10 unit subcut QPM Rx Instructions: PT STATES USES 10-15U QHS magnesium hydroxide [Gentle Laxative (mag hydrox)] 400 mg/5 mL suspension 5 ml PO DAILY PRN (Reason: constipation) sennosides-docusate sodium [Senna with Docusate Sodium] 8.6-50 mg tablet 2 tab-cap PO DAILY melatonin 3 mg tablet 3 mg PO QHS polyethylene glycol 3350 17 gram powder in packet 17 g PO DAILY ferrous sulfate [Feosol] 325 mg (65 mg iron) tablet 325 mg PO .every other day lidocaine 5 % adhesive patch,medicated 2 patch topical DAILY PRN (Reason: pain) Rx Instructions: leave on most painful area for up to 12 hrs cyclopentolate 2 % drops 1 drp LEFT EYE QHS calcium carbonate 500 mg calcium (1,250 mg) tablet 1,500 mg PO DAILY polyvinyl alcohol-povidone 1.4-0.6 % drops 1 drp ophthalmic (eye) 4X/DAY Rx Instructions: 1 drop each eye; pantoprazole [Protonix] 40 mg tablet,delayed release (DR/EC) 40 mg PO DAILY prednisolone acetate 1 % drops,suspension 1 drp LEFT EYE Q6H tiotropium-olodaterol 2.5-2.5 mcg/actuation mist 2 puff inhalation DAILY nicotine [Nicoderm CQ] 14 mg/24 hr patch 24 hour 1 patch transdermal DAILY Rx Instructions: apply every morning and remove at HS albuterol 90 mcg/actuation aerosol 90 mcg inhalation Q4H PRN Changed oxycodone 5 mg tablet 2.5 mg PO Q6H PRN (Reason: pain) 3 Days Qty: 7 0RF Held aspirin 81 mg Tablet,Delayed Release (Dr/Ec) 81 mg PO DAILY Hold Instructions: Hold while taking Eliquis. Discontinued acetaminophen 325 mg tablet 650 mg PO Q4H PRN (Reason: pain) Referrals / Follow Up: Nuno Campbell MD [Med Staff - Active Staff] - Within 2 Weeks Carlene Haji, SECONDARY HISTORY TEACHER-C [Primary Care Provider] - Within 2 Weeks Disposition Disposition (needs filled in before D/C Order can be placed): Custodial Facility Charges/Coding Visit Charges Inpatient E&M: 99431 Disch Hosp >30min
--- NOTE | 2025-07-07 15:47 | PHA.DC.MR.R ---
Pharmacy [place] Med Reconciliation Pharmacy Service has performed discharge medication reconciliation for this patient. The patient's discharge medication list was reviewed for discrepancies and discrepancies were resolved. Medications at Discharge Home Medications gabapentin 300 mg capsule 300 mg PO TID neuropathy 02/24/15 amlodipine 5 mg tablet 10 mg PO QHS blood pressure 05/09/21 aspirin 81 mg tablet,delayed release 81 mg PO DAILY heart health 05/09/21 Held on 07/07/25. Instructions: Hold while taking Eliquis. budesonide-formoterol HFA 80 mcg-4.5 mcg/actuation aerosol inhaler (Symbicort) 2 puff inhalation BID COPD 05/09/21 cyclobenzaprine 10 mg tablet 10 mg PO TID PRN muscle spasms 05/09/21 sildenafil 100 mg tablet 100 mg PO DAILY PRN Erectile Dysfunction 05/09/21 atorvastatin 80 mg tablet 80 mg PO QHS cholesterol #90 tabs 05/12/21 insulin aspart U-100 100 unit/mL (3 mL) subcutaneous pen (Novolog FlexPen U-100 Insulin aspart) 10 unit subcut TIDCM DM 12/12/24 insulin glargine 100 unit/mL (3 mL) subcutaneous pen (Lantus Solostar U-100 Insulin) 10 unit subcut QPM Dm 05/04/25 magnesium hydroxide 400 mg/5 mL oral suspension (Gentle Laxative (magnesium hydroxide)) 5 ml PO DAILY PRN constipation 05/04/25 ropinirole 1 mg tablet 1 mg PO QHS rls 05/04/25 albuterol 90 mcg/actuation aerosol inhaler 90 mcg inhalation Q4H PRN sob 07/04/25 calcium carbonate 1,500 mg PO DAILY supplement 07/04/25 cyclopentolate 2 % eye drops 1 drp LEFT EYE QHS inflamation 07/04/25 ferrous sulfate 325 mg (65 mg iron) tablet (Feosol) 325 mg PO .every other day supplement 07/04/25 lidocaine 5 % topical patch 2 patch topical DAILY PRN pain 07/04/25 melatonin 3 mg tablet 3 mg PO QHS sleep 07/04/25 nicotine 14 mg/24 hr daily transdermal patch (Nicoderm CQ) 1 patch transdermal DAILY smoking cessation 07/04/25 pantoprazole 40 mg tablet,delayed release (Protonix) 40 mg PO DAILY heart burn 07/04/25 polyethylene glycol 3350 17 gram oral powder packet 17 g PO DAILY constipation 07/04/25 polyvinyl alcohol-povidone 1.4 %-0.6 % eye drops 1 drp ophthalmic (eye) 4X/DAY dry eye 07/04/25 prednisolone acetate 1 % eye drops,suspension 1 drp LEFT EYE Q6H inflamation 07/04/25 sennosides 8.6 mg-docusate sodium 50 mg tablet (Senna with Docusate Sodium) 2 tab-cap PO DAILY stool softener 07/04/25 tiotropium 2.5 mcg-olodaterol 2.5 mcg/actuation mist for inhalation 2 puff inhalation DAILY asthma 07/04/25 acetaminophen 500 mg tablet 1,000 mg (2 x 500 mg) PO Q8 #0 tabs 07/07/25 apixaban 5 mg tablet (Eliquis) 2.5 mg (1/2 x 5 mg) PO BID 4 weeks #28 tabs 07/07/25 oxycodone 5 mg tablet 2.5 mg (1/2 x 5 mg) PO Q6H PRN pain 3 days #7 tabs 07/07/25
--- NOTE | 2025-07-07 15:53 | CASEMGMT ---
Report received from previous MS3 RN CM @ [id number]. Order for DC placed by the hospitalist. 0700 completed in the HENS. DC assistant gm of content & delivery notified.
--- NOTE | 2025-07-07 16:17 | CASEMGMT ---
Discharge Planning Discharge orders, signed med list, and transport time sent to [facility]. Physicians will transport pt by wheelchair at 5:30. Nursing, SW, and pt updated. SW to update pts daughter (Kimberley). Annie Fuentes DC Planning Asst
== END 2025-07-07 18:03 | disposition skilled nursing facility (03) | DRG 480 ==
LOC: ED 23:02 → MS3 23:20
PROVIDERS: Anesthesiology; Internal Medicine; Orthopaedic Surgery; Admitting Provider Family Medicine; Emergency Provider Emergency Medicine; PCP Nurse Practitioner Gerontology; Visit Provider Internal Medicine
PROC: 0QS606Z Reposition Right Upper Femur with Intramedullary Internal Fixation Device, Open Approach (ICD-10-PCS; CPT 27245; principal; 2025-07-04 11:30)
DX: S72.141A Displaced intertrochanteric fracture of right femur, initial encounter for closed fracture (principal); E43 Unspecified severe protein-calorie malnutrition; D68.32 Hemorrhagic disorder due to extrinsic circulating anticoagulants; C34.91 Malignant neoplasm of unspecified part of right bronchus or lung; D62 Acute posthemorrhagic anemia; Z68.1 Body mass index [BMI] 19.9 or less, adult; G93.89 Other specified disorders of brain; E11.22 Type 2 diabetes mellitus with diabetic chronic kidney disease; D63.0 Anemia in neoplastic disease; K74.60 Unspecified cirrhosis of liver; J44.9 Chronic obstructive pulmonary disease, unspecified; I12.9 Hypertensive chronic kidney disease with stage 1 through stage 4 chronic kidney disease, or unspecified chronic kidney disease; G25.81 Restless legs syndrome; E11.40 Type 2 diabetes mellitus with diabetic neuropathy, unspecified; K21.9 Gastro-esophageal reflux disease without esophagitis; Z79.4 Long term (current) use of insulin; F17.210 Nicotine dependence, cigarettes, uncomplicated; E83.52 Hypercalcemia; E78.5 Hyperlipidemia, unspecified; N18.2 Chronic kidney disease, stage 2 (mild); E11.65 Type 2 diabetes mellitus with hyperglycemia; W19.XXXA Unspecified fall, initial encounter; R53.81 Other malaise; Z86.73 Personal history of transient ischemic attack (TIA), and cerebral infarction without residual deficits; Z79.899 Other long term (current) drug therapy; Z79.51 Long term (current) use of inhaled steroids; R31.9 Hematuria, unspecified
CPT/HCPCS: 36415; 73502; 73700; 76000; 80048; 80053; 81001; 82728; 82962; 83036; 83540; 83550; 83735; 83880; 84100; 85025; 85610; 85730; 86850; 86900; 86901; 88307; 88311; 93005; 94640; 94668; 97162; 97166; 97530; 97803; 99285; 99406; C1713; C1776; P9016; A4216; J2916

== ENCOUNTER 2025-07-08 10:55 | Emergency (ER) | payer OTHER, SELFPAY ==
[2025-07-08 10:55] VITALS: BP 138/82; PULSE 102; RESP 21; TEMP 37.1; O2SAT 97; BMI 22.3
[2025-07-08 10:58] VITALS: BP 138/82; PULSE 101; RESP 20; TEMP 37.1; O2SAT 96
--- NOTE | 2025-07-08 11:07 | EX.ED.DYSGE1 ---
HPI <AGUSTINA Sanches - Last Filed: 07/08/25 13:36> History of Present Illness Chief Complaint: Complaint Narrative Narrative: 75-year-old male with PMH of HTN, HLD, DM2, cirrhosis, anemia had a traumatic hip fracture with surgical fixation on 07/04/[address] Nuno Campbell. He was discharged to [facility]. He states this morning he started to have blood in his urine prompting his visit. He also states they are giving him Tylenol and it is not managing his hip pain well. He denies fever or chills, nausea or vomiting, or abdominal or flank pain. He was discharged on Eliquis 2.5 mg twice daily. PFSH <AGUSTINA Sanches - Last Filed: 07/08/25 13:36> [facility] Medical History CKD (chronic kidney disease), stage II Chronic anemia Cancer of right lung Anxiety and depression GERD (gastroesophageal reflux disease) Cirrhosis Former smoker TIA (transient ischemic attack) Kidney stones Neuropathy PTSD (post-traumatic stress disorder) Hepatitis COPD (chronic obstructive pulmonary disease) Hypertension Diabetes Home Medications ?Medication ?Instructions ?Recorded ?Last Taken ?Type gabapentin 300 mg capsule 300 mg PO TID neuropathy 02/24/15 07/02/25 21:00 History amlodipine 5 mg tablet 10 mg PO QHS blood pressure 05/09/21 07/02/25 21:00 History 10 mg aspirin 81 mg tablet,delayed 81 mg PO DAILY heart health 05/09/21 07/02/25 History release Held on 07/07/25. Instructions: Hold while taking Eliquis. budesonide-formoterol HFA 80 2 puff inhalation BID COPD 05/09/21 07/02/25 History mcg-4.5 mcg/actuation aerosol inhaler (Symbicort) cyclobenzaprine 10 mg tablet 10 mg PO TID PRN muscle spasms 05/09/21 07/02/25 History sildenafil 100 mg tablet 100 mg PO DAILY PRN Erectile 05/09/21 07/02/25 History Dysfunction atorvastatin 80 mg tablet 80 mg PO QHS cholesterol #90 tabs 05/12/21 07/02/25 21:00 Rx insulin aspart U-100 100 unit/mL 10 unit subcut TIDCM DM 12/12/24 07/02/25 History (3 mL) subcutaneous pen (Novolog FlexPen U-100 Insulin aspart) insulin glargine 100 unit/mL (3 10 unit subcut QPM Dm 05/04/25 07/02/25 History mL) subcutaneous pen (Lantus Solostar U-100 Insulin) magnesium hydroxide 400 mg/5 mL 5 ml PO DAILY PRN constipation 05/04/25 07/02/25 History oral suspension (Gentle Laxative (magnesium hydroxide)) ropinirole 1 mg tablet 1 mg PO QHS rls 05/04/25 07/02/25 History albuterol 90 mcg/actuation aerosol 90 mcg inhalation Q4H PRN sob 07/04/25 Unknown History inhaler calcium carbonate 1,500 mg PO DAILY supplement 07/04/25 07/02/25 History cyclopentolate 2 % eye drops 1 drp LEFT EYE QHS inflamation 07/04/25 07/02/25 History ferrous sulfate 325 mg (65 mg 325 mg PO .every other day 07/04/25 Unknown History iron) tablet (Feosol) supplement lidocaine 5 % topical patch 2 patch topical DAILY PRN pain 07/04/25 Unknown History melatonin 3 mg tablet 3 mg PO QHS sleep 07/04/25 07/02/25 History nicotine 14 mg/24 hr daily 1 patch transdermal DAILY smoking 07/04/25 Unknown History transdermal patch (Nicoderm CQ) cessation pantoprazole 40 mg tablet,delayed 40 mg PO DAILY heart burn 07/04/25 07/02/25 History release (Protonix) polyethylene glycol 3350 17 gram 17 g PO DAILY constipation 07/04/25 07/02/25 History oral powder packet polyvinyl alcohol-povidone 1.4 1 drp ophthalmic (eye) 4X/DAY dry 07/04/25 07/02/25 History %-0.6 % eye drops eye prednisolone acetate 1 % eye 1 drp LEFT EYE Q6H inflamation 07/04/25 07/02/25 History drops,suspension sennosides 8.6 mg-docusate sodium 2 tab-cap PO DAILY stool softener 07/04/25 06/25/25 History 50 mg tablet (Senna with Docusate Sodium) tiotropium 2.5 mcg-olodaterol 2.5 2 puff inhalation DAILY asthma 07/04/25 07/02/25 History mcg/actuation mist for inhalation acetaminophen 500 mg tablet 1,000 mg (2 x 500 mg) PO Q8 #0 tabs 07/07/25 Unknown Rx apixaban 5 mg tablet (Eliquis) 2.5 mg (1/2 x 5 mg) PO BID 4 weeks 07/07/25 Unknown Rx #28 tabs oxycodone 5 mg tablet 2.5 mg (1/2 x 5 mg) PO Q6H PRN 07/07/25 Unknown Rx pain 3 days #7 tabs Allergy/AdvReac Type Severity Reaction Status Date / Time No Known Allergies Allergy Verified 07/08/25 10:57 Family History Mother CVA (cerebral vascular accident) Family History other Surgical History Hx of appendectomy Social History household members: none housing: apartment Smoking Status: Current some day smoker tobacco type: cigarettes and cigars alcohol intake: never substance use type: does not use ROS <AGUSTINA Sanches - Last Filed: 07/08/25 13:36> ROS ED ROS Narrative Constitutional: Negative for fever, chills, malaise. CVS: Negative for chest pain. Respiratory: Negative for shortness of breath. GI: Negative for abdominal pain, nausea, vomiting. : Positive for hematuria. No dysuria or frequency. EXAM <AGUSTINA Sanches - Last Filed: 07/08/25 13:36> Physical Exam Narrative Exam Narrative: CONST: Patient sitting in no acute distress. EYES: Normal inspection. NECK: Normal inspection. RESP: No respiratory distress, CTAB. CVS: Regular rate and rhythm, no murmur, no gallop. ABD: Soft and nontender, no guarding or rebound, nondistended. SKIN: [place] over right hip incisions are clean, dry, intact without surrounding erythema or drainage. EXTREMITIES: Normal appearance, no pedal edema. NEURO: Alert and answering questions appropriately. PSYCH: Normal affect. Const Vital Signs: 07/08/25 10:55 07/08/25 10:58 07/08/25 12:55 Temperature 98.7 F 98.7 F Temperature Source Oral Oral Pulse Rate 102 H 101 H 98 Respiratory Rate 21 H 20 H 21 H Blood Pressure 138/82 H 138/82 H 137/82 H Blood Pressure Mean 100 100 100 Pulse Ox 97 96 100 Oxygen Delivery Method Room Air Room Air 07/08/25 13:59 07/08/25 14:00 Temperature 98.7 F Temperature Source Pulse Rate 98 101 H Respiratory Rate 21 H 19 H Blood Pressure 123/92 H 130/81 H Blood Pressure Mean 102 97 Pulse Ox 100 100 Oxygen Delivery Method Room Air <Dr. Monty Clarke MD - Last Filed: 07/08/25 14:57> Physical Exam Const Vital Signs: 07/08/25 10:55 07/08/25 10:58 07/08/25 12:55 Temperature 98.7 F 98.7 F Temperature Source Oral Oral Pulse Rate 102 H 101 H 98 Respiratory Rate 21 H 20 H 21 H Blood Pressure 138/82 H 138/82 H 137/82 H Blood Pressure Mean 100 100 100 Pulse Ox 97 96 100 Oxygen Delivery Method Room Air Room Air 07/08/25 13:59 07/08/25 14:00 Temperature 98.7 F Temperature Source Pulse Rate 98 101 H Respiratory Rate 21 H 19 H Blood Pressure 123/92 H 130/81 H Blood Pressure Mean 102 97 Pulse Ox 100 100 Oxygen Delivery Method Room Air MDM <AGUSTINA Sanches - Last Filed: 07/08/25 13:36> [facility] MDM Narrative Medical decision making narrative: History gathered from: Patient and significant other Differential: Hematuria, UTI, no signs or symptoms of kidney stone 75-year-old male is recently postop from right hip surgery and was started on Eliquis 2.5 mg twice daily for DVT prevention and developed painless hematuria this morning. He appears chronically ill but nontoxic. Vital stable. Abdomen soft, nontender. Right hip incision is healing well without signs of infection. He was having postop pain so was given a Hominy. Blood work looks stable with a globin of 8.6 up from 8.0 at discharge. BMP unremarkable. Glucose 210 consistent with his diabetes. UA has 10-25 RBCs but no signs of infection. He is stable for discharge back to SNF and return precautions were discussed including persistent gross hematuria, clots, or urinary retention. At this point he should continue Eliquis. He was discharged in stable condition. I have personally performed a face to face assessment of the patient and have reviewed the DONI Note. I performed a substantive portion of the visit including all aspects of the following. My sierra findings include: History is remarkable for right-sided lung cancer. Type is unspecified. He had associated hyper callus EMEA due to the lung cancer. He was recently admitted this month for a closed intertrochanteric fracture on the right. He underwent open reduction internal fixation. According to person with him he has missed 3 of his radiation doses. He apparently receives his care at the [place]. He presents now because of hematuria. He did have hematuria during his hospital stay it was thought to be due to trauma secondary to the [place]. He was placed on Eliquis 2.5 mg for prophylaxis. He denies dysuria, frequency or urgency. He denies passing clots. He is not able to stand yet. He is only cleared to sit. He does not give orthostatic symptoms with sitting. He denies black or maroon-colored stool. Exam is patient is a thin gentleman. He does not appear well. HEENT exam is remarkable for pale appearing conjunctive. Neck is supple. Trachea is midline. Lungs reveal no wheeze rales rhonchi. Has decreased breath sounds bilaterally. Heart is rapid and regular. There is no murmur, gallop or rub. Abdomen is benign. He has no inguinal mass or lymphadenopathy. He has no scrotal swelling or pain. There was no blood noted to meatus. Medical Decision Making patient with painless hematuria. Will obtain UA and appropriate blood work and compare to prior. This may be due to the fact that he had trauma from [place] and now is on Eliquis. This could be due to undiagnosed malignancy. After reviewing labs we will determine if patient needs an emergent CT of the abdomen pelvis with IV contrast. Other additions or changes: [None] History & Record Review Discussion w/independent historian: Patient and Friend Additional record(s) reviewed:: Prior inpatient record, Prior ED visit and Prior labs Lab Data Labs: Laboratory Results - last 24 hr 07/08/25 07/08/25 11:10 12:54 WBC 8.8 RBC 3.75 L Hgb 8.6 L Hct 26.8 L MCV 71.5 L MCH 22.9 L MCHC 32.1 RDW Std Deviation 56.8 H RDW Coeff of Tiffany 22.5 H Plt Count 250 MPV 9.6 Immature Gran % (Auto) 0.300 Neut % (Auto) 75.3 H Lymph % (Auto) 16.1 L [place] % (Auto) 7.2 Eos % (Auto) 0.9 Baso % (Auto) 0.2 Absolute Neuts (auto) 6.6 Absolute Lymphs (auto) 1.42 Nucleated RBC % 0 Differential Comment SCANNED Anisocytosis 2+ Sodium 135 Potassium 4.3 Chloride 102 Carbon Dioxide 23.9 Anion Gap 9 BUN 19 Creatinine 0.93 Estim Creat Clear Calc 70.28 Est GFR (MDRD) Non-Af 85 BUN/Creatinine Ratio 20.9 H Glucose 210 H Calcium 9.1 Urine Color Yellow Urine Clarity Clear Urine pH 6.5 Ur Specific [place] 1.010 Urine Protein 100 H Urine Glucose (UA) 100 H Urine Ketones Negative Urine Occult Blood 150 H Urine Nitrite Negative Urine Bilirubin Negative Urine Urobilinogen Normal Ur Leukocyte Esterase Negative Urine RBC 10-25 SEEN Urine WBC 0 SEEN Ur Squamous Epith Cells 0 SEEN Urine Bacteria 0 SEEN Urine Mucus 0 SEEN <Dr. Monty Clarke MD - Last Filed: 07/08/25 14:57> [facility] MDM Narrative Medical decision making narrative: I have personally performed a face to face assessment of the patient and have reviewed the DONI Note. I performed a substantive portion of the visit including all aspects of the following. My sierra findings include: History is remarkable for right-sided lung cancer. Type is unspecified. He had associated hyper callus EMEA due to the lung cancer. He was recently admitted this month for a closed intertrochanteric fracture on the right. He underwent open reduction internal fixation. According to person with him he has missed 3 of his radiation doses. [facility] He presents now because of hematuria. He did have hematuria during his hospital stay it was thought to be due to trauma secondary to the [place]. He was placed on Eliquis 2.5 mg for prophylaxis. He denies dysuria, frequency or urgency. He denies passing clots. He is not able to stand yet. He is only cleared to sit. He does not give orthostatic symptoms with sitting. He denies black or maroon-colored stool. Exam is patient is a thin gentleman. He does not appear well. HEENT exam is remarkable for pale appearing conjunctive. Neck is supple. Trachea is midline. Lungs reveal no wheeze rales rhonchi. Has decreased breath sounds bilaterally. Heart is rapid and regular. There is no murmur, gallop or rub. Abdomen is benign. He has no inguinal mass or lymphadenopathy. He has no scrotal swelling or pain. There was no blood noted to meatus. Medical Decision Making patient with painless hematuria. Will obtain UA and appropriate blood work and compare to prior. This may be due to the fact that he had trauma from [place] and now is on Eliquis. This could be due to undiagnosed malignancy. After reviewing labs we will determine if patient needs an emergent CT of the abdomen pelvis with IV contrast. Other additions or changes: [None] Lab Data Attestation: I reviewed the patient's lab results. Lab results narrative: CBC is remarkable microcytic anemia. H&H was 8.0 yesterday. Labs: Laboratory Results - last 24 hr 07/08/25 07/08/25 11:10 12:54 WBC 8.8 RBC 3.75 L Hgb 8.6 L Hct 26.8 L MCV 71.5 L MCH 22.9 L MCHC 32.1 RDW Std Deviation 56.8 H RDW Coeff of Tiffany 22.5 H Plt Count 250 MPV 9.6 Immature Gran % (Auto) 0.300 Neut % (Auto) 75.3 H Lymph % (Auto) 16.1 L [place] % (Auto) 7.2 Eos % (Auto) 0.9 Baso % (Auto) 0.2 Absolute Neuts (auto) 6.6 Absolute Lymphs (auto) 1.42 Nucleated RBC % 0 Differential Comment SCANNED Anisocytosis 2+ Sodium 135 Potassium 4.3 Chloride 102 Carbon Dioxide 23.9 Anion Gap 9 BUN 19 Creatinine 0.93 Estim Creat Clear Calc 70.28 Est GFR (MDRD) Non-Af 85 BUN/Creatinine Ratio 20.9 H Glucose 210 H Calcium 9.1 Urine Color Yellow Urine Clarity Clear Urine pH 6.5 Ur Specific [place] 1.010 Urine Protein 100 H Urine Glucose (UA) 100 H Urine Ketones Negative Urine Occult Blood 150 H Urine Nitrite Negative Urine Bilirubin Negative Urine Urobilinogen Normal Ur Leukocyte Esterase Negative Urine RBC 10-25 SEEN Urine WBC 0 SEEN Ur Squamous Epith Cells 0 SEEN Urine Bacteria 0 SEEN Urine Mucus 0 SEEN Discharge Plan Triage Chief Complaint: Complaint ED Midlevel Provider: Marissa Rivera ED Provider: Monty Clarke Dx/Rx/DC Orders Clinical Impression: Hematuria, Post-op pain, History of right hip replacement Instructions: ED Hematuria Prescriptions: No Action gabapentin 300 MG capsule 300 mg PO TID cyclobenzaprine 10 mg Tablet 10 mg PO TID PRN (Reason: muscle spasms) amlodipine 5 mg Tablet 10 mg PO QHS budesonide-formoterol [Symbicort] 80-4.5 mcg/actuation Hfa Aerosol Inhaler 2 puff INHALATION BID aspirin 81 mg Tablet,Delayed Release (Dr/Ec) 81 mg PO DAILY sildenafil 100 mg Tablet 100 mg PO DAILY PRN (Reason: Erectile Dysfunction) atorvastatin 80 mg tablet 80 mg PO QHS Qty: 90 0RF insulin aspart U-100 [Novolog FlexPen U-100 Insulin] 100 unit/mL (3 mL) insulin pen 10 unit subcut TIDCM ropinirole 1 mg tablet 1 mg PO QHS insulin glargine [Lantus Solostar U-100 Insulin] 100 unit/mL (3 mL) insulin pen 10 unit subcut QPM Rx Instructions: PT STATES USES 10-15U QHS magnesium hydroxide [Gentle Laxative (mag hydrox)] 400 mg/5 mL suspension 5 ml PO DAILY PRN (Reason: constipation) sennosides-docusate sodium [Senna with Docusate Sodium] 8.6-50 mg tablet 2 tab-cap PO DAILY melatonin 3 mg tablet 3 mg PO QHS polyethylene glycol 3350 17 gram powder in packet 17 g PO DAILY ferrous sulfate [Feosol] 325 mg (65 mg iron) tablet 325 mg PO .every other day lidocaine 5 % adhesive patch,medicated 2 patch topical DAILY PRN (Reason: pain) Rx Instructions: leave on most painful area for up to 12 hrs cyclopentolate 2 % drops 1 drp LEFT EYE QHS calcium carbonate 500 mg calcium (1,250 mg) tablet 1,500 mg PO DAILY polyvinyl alcohol-povidone 1.4-0.6 % drops 1 drp ophthalmic (eye) 4X/DAY Rx Instructions: 1 drop each eye; pantoprazole [Protonix] 40 mg tablet,delayed release (DR/EC) 40 mg PO DAILY prednisolone acetate 1 % drops,suspension 1 drp LEFT EYE Q6H tiotropium-olodaterol 2.5-2.5 mcg/actuation mist 2 puff inhalation DAILY nicotine [Nicoderm CQ] 14 mg/24 hr patch 24 hour 1 patch transdermal DAILY Rx Instructions: apply every morning and remove at HS albuterol 90 mcg/actuation aerosol 90 mcg inhalation Q4H PRN acetaminophen 500 mg Tablet 1,000 mg PO Q8 Qty: 0 0RF Rx Instructions: 1 g every 8 hourly for 1 week and then Q8 hourly as needed for severe pain Eliquis 5 mg Tablet 2.5 mg PO BID 28 Days Qty: 28 0RF Rx Instructions: Start from 07/08/2025. Discontinue if platelet count drops less than 50,000 or hemoglobin less than 8 g% oxycodone 5 mg tablet 2.5 mg PO Q6H PRN (Reason: pain) 3 Days Qty: 7 0RF Primary Care Provider: Carlene Haji Referrals: Carlene Haji, [employer] [Primary Care Provider] - Activity Restrictions/Additional Instructions: There is a microscopic amount of blood in your urine but your hemoglobin level is stable. This is your red blood cell count. At this time I recommend you still continue the Eliquis because this is to prevent blood clots after surgery. If you have worsening symptoms like if your urine becomes more bloody or you have clots or are unable to urinate then please come back to the ER. Print Language: Romanian Disposition Disposition: Home, Self Care
[2025-07-08] MEDS: HYDROcodone Bitartrate/Apap 5/325 Tablet PO (11:21)
[2025-07-08 11:23] LABS: Hematocrit 26.8 % (40-54); Hemoglobin 8.6 g/dL (13.0-16.5); Immature Granulocytes Count 0.030 X10^3/uL (0.0-0.0); Mean Corp Hgb Conc 32.1 g/dL (32-36); Mean Corpuscular Volume 71.5 fL (80-94); Mean Platelet Vol. 9.6 fl (6.2-12.0); NRBC Flagged by Analyzer 0 % (0-5); POSITIVE MORPHOLOGY YES; Platelet Count 250 K/mm3 (150-450); RBC Distribution Width CV 22.5 % (11.6-14.6); RBC Distribution Width SD 56.8 fl (35.1-43.9); Red Blood Count 3.75 M/mm3 (4.6-6.2); White Blood Count 8.8 K/mm3 (4.4-11.0)
[2025-07-08 11:24] LABS: Differential Indicated SCAN CRITERIA MET
[2025-07-08 11:49] LABS: Anisocytosis 2+; Differential Comment SCANNED
[2025-07-08 12:07] LABS: Anion Gap 9 (5-15); BUN 19 mg/dL (4-19); BUN/Creat Ratio 20.9 RATIO (10-20); Calcium,Total 9.1 mg/dL (7.6-11.0); Carbon Dioxide 23.9 mmol/L (21.0-32.0); Chloride 102 mmol/L (98-108); Estimated Creatinine Clearance 70.28 ml/min (50-250); Glucose 210 mg/dL (70-99); Potassium 4.3 mmol/L (3.3-5.1)
[2025-07-08 12:55] VITALS: BP 137/82; PULSE 98; RESP 21; O2SAT 100
[2025-07-08 12:59] LABS: Mucous, Urine 0 SEEN /hpf (<or=2+); Squamous Epithelial Cells - UA 0 SEEN /hpf (0-5)
[2025-07-08 13:15] LABS: Color, Urine Yellow (Yellow); Glucose, Dipstick 100 mg/dl (Normal); Ketone-Dipstick Negative (Negative); Leukocyte Esterase-Dipstick Negative /ul (Negative); Nitrite-Dipstick Negative (Negative); Occult Blood-Urine 150 /ul (Negative); Protein-Dipstick 100 mg/dl (Negative); Specific Gravity, Urine 1.010 (1.002-1.030); Urine Bilirubin Dipstick Negative (Negative)
[2025-07-08 13:26] LABS: Red Blood Cells-Urine 10-25 SEEN /hpf (0-5)
--- NOTE | 2025-07-08 13:58 | ED.RN ---
Report called to [facility]
[2025-07-08 13:59] VITALS: BP 123/92; PULSE 98; RESP 21; TEMP 37.1; O2SAT 100
[2025-07-08 14:00] VITALS: BP 130/81; PULSE 101; RESP 19; O2SAT 100
--- NOTE | 2025-07-08 15:07 | ED.RN ---
Report given to Physicians. Care transferred to ambulance crew.
--- OUTSIDE RECORDS SUMMARY | 2025-07-08 19:05 | XMS RPT_ITS | CCD ---
Author Organization [facility] Care Team Providers Care Estimator Lumber Name Role Phone Dr. Steven Tejeda DO Emergency Provider Adithya POWER BARKER OPERATOR-C, Carlene Hassan Primary Care Provider Dr. Steven Tejeda DO Attending Provider Dr. Ike Dawson DO Emergency Provider Dr. Ike Dawson DO Attending Provider [phone] Monty Clarke MD Emergency Provider Dr. Lane Stanley DO Admit Provider Dr. Lane Stanley DO Attending Provider Dr. Lane Stanley DO Other Provider [phone] Damian HERBERT, Dr. Cruz Attending Provider Dr. Anthony Salgado MD Other Provider [phone] Cristina HERBERT, Dr. Johanne Jordan Admit Provider Cristina HERBERT, Dr. Johanne Jordan Attending Provider Cristina HERBERT, Dr. Johanne Jordan Other Provider Dr. Nuno Campbell MD Other Provider Elvira HERBERT, Dr. Ivey Other Provider Unavailable Elvira HERBERT, Dr. Ivey Attending Provider Unavaila Steven Taveras Attending Unavailable Adithya, Carlene N Primary Care Unavailable Johanne Evans Consulting Unavailable Adithya, Carlene N Primary Care Unavailable Anthony Salgado Attending Unavailable Johanne Evans Admitting Unavailable Nuno Campbell Consulting Unavailable Uche Felix Consulting Unavailable Lane Stanley Admitting Unavailable Adithya, Carlene N Primary Care Unavailable Anthony Salgado Attending Unavailable Lane Stanley Consulting Unavailable [facility] Primary Care Unavailable Ike Dawson Attending Unavailable Johanne Evans Admitting Unavailable Johanne Evans Consulting Unavailable [facility] Primary Care Unavailable Anthony Salgado Attending Unavailable Nuno Campbell Consulting Unavailable Uche Felix Consulting Unavailable Anthony Salgado Consulting Unavailable Lane Stanley Consulting Unavailable Lane Stanley Admitting Unavailable [facility] N Primary Care Unavailable Lane Stanley Attending Unavailable Anthony Salgado Attending Unavailable Anthony Salgado Consulting Unavailable Johanne Evans Attending Unavailable Uche Felix Attending Unavailable Monty Clarke Attending Unavailable [facility] Primary Care Unavailable [facility] [place] Primary Care Unavailable Juvencio Shen Attending Unavailable Medications Current Medications Medication Drug Class(es) Dates Sig (Normalized) Sig (Original) acetaminophen 500 mg oral tablet (4 sources) Start: 07-07-2025 take 1 g by mouth every hour as needed for pain, then take 8 tablets by mouth every hour as needed for pain, then take 8 tablets by mouth once as needed for pain Acetaminophen 500 mg Tablet Active 1000 mg PO EVERY 8 HOURS 0 0 July 07, 2025 12:00am 1 g every 8 hourly for 1 week and then Q8 hourly as needed for severe pain Start: 07-04-2025 End: 07-07-2025 take 2 tablets by mouth every four hours as needed for pain Acetaminophen 325 mg tablet Discontinued 650 mg PO Q4H as needed for pain July 04, 2025 12:00am July 07, 2025 3:09pm Albuterol 90 mcg/actuation aerosol (2 sources) Start: 07-04-2025 take 90 ug by inhalation every four hours as needed Albuterol 90 mcg/actuation aerosol Active 90 ug INHALATION EVERY 4 HOURS NEEDED July 04, 2025 12:00am sob calcium carbonate 1250 mg oral tablet (2 sources) Start: 07-04-2025 take 1 tablet by mouth once daily Calcium Carbonate 500 mg calcium (1,250 mg) tablet Active 1500 mg PO DAILY July 04, 2025 12:00am supplement cyclobenzaprine hydrochloride 10 mg oral tablet (7 sources) Muscle Relaxant Start: 05-09-2021 take 1 tablet by mouth three times daily as needed for muscle spasms Cyclobenzaprine 10 mg Tablet Active 10 mg PO THREE TIMES A DAY as needed for muscle spasms May 09, 2021 12:00am cyclopentolate hydrochloride 20 mg/ml ophthalmic solution (2 sources) Start: 07-04-2025 take 2 drop(s) into the eye(s) at bedtime Cyclopentolate 2 % drops Active 1 NMA LEFT EYE AT BEDTIME July 04, 2025 12:00am inflamation docusate sodium 50 mg / sennosides, fci 8.6 mg oral tablet (2 sources) Start: 07-04-2025 Sennosides-Docusate Sodium (Senna With Docusate Sodium) 8.6-50 mg tablet Active 2 NMA PO DAILY July 04, 2025 12:00am stool softener ferrous sulfate 325 mg oral tablet (2 sources) Start: 07-04-2025 take 1 tablet by mouth every other day Ferrous Sulfate (Feosol) 325 mg (65 mg iron) tablet Active 325 mg PO .every other day July 04, 2025 12:00am supplement 3 ml insulin aspart, human 100 unt/ml pen injector (7 sources) Insulin Analog Start: 12-12-2024 Insulin Aspart U-100 (Novolog Flexpen U-100 Insulin) 100 unit/mL (3 mL) insulin pen Active 10 U SC 3 TIMES DAILY WITH MEALS December 12, 2024 1:00am DM Start: 12-12-2024 Insulin Aspart U-100 (Novolog Flexpen U-100 Insulin) 100 unit/mL (3 mL) insulin pen Active SC December 12, 2024 1:00am 3 ml insulin glargine 100 unt/ml pen injector (6 sources) Insulin Analog Start: 05-04-2025 Insulin Glargine (Lantus Solostar U-100 Insulin) 100 unit/mL (3 mL) insulin pen Active 10 U SC EVERY EVENING May 04, 2025 12:00am Dm PT STATES USES 10-15U QHS lidocaine 0.05 mg/mg medicated patch (2 sources) Antiarrhythmic, Amide Local Anesthetic Start: 07-04-2025 Lidocaine 5 % adhesive patch,medicated Active 2 NMA TOPICAL DAILY as needed for pain July 04, 2025 12:00am leave on most painful area for up to 12 hrs Magnesium Hydroxide (6 sources) Start: 05-04-2025 take 1 mL by mouth once daily as needed for constipation Magnesium Hydroxide (Gentle Laxative (Mag Hydrox)) 400 mg/5 mL suspension Active 5 mL PO DAILY as needed for constipation May 04, 2025 12:00am melatonin 3 mg oral tablet (2 sources) Start: 07-04-2025 take 1 tablet by mouth at bedtime Melatonin 3 mg tablet Active 3 mg PO AT BEDTIME July 04, 2025 12:00am sleep 24 hr nicotine 0.583 mg/hr transdermal system (2 sources) Cholinergic Nicotinic Agonist Start: 07-04-2025 apply 1 dose transdermal route every twenty-four hours at bedtime Nicotine (Nicoderm Cq) 14 mg/24 hr patch 24 hour Active 1 NMA TD DAILY July 04, 2025 12:00am smoking cessation apply every morning and remove at HS Tiotropium-Olodate rol (2 sources) Anticholinergic, beta2-Adrenergic Agonist Start: 07-04-2025 Tiotropium-Olodaterol 2.5-2.5 mcg/actuation mist Active 2 NMA INHALATION DAILY July 04, 2025 12:00am asthma oxyCODONE hydrochloride 5 mg oral tablet (4 sources) Opioid Agonist Start: 07-07-2025 take 2.5 mg by mouth every six hours as needed for pain Oxycodone 5 mg tablet Active 2.5 mg PO EVERY 6 HOURS as needed for pain 7 3 0 July 07, 2025 Fall Closed intertrochanteric fracture of right femur Unspecified fall, initial encounter Start: 07-04-2025 End: 07-07-2025 take 1 tablet by mouth every six hours as needed for pain Oxycodone 5 mg tablet Discontinued 5 mg PO EVERY 6 HOURS as needed for pain 0 July 04, 2025 12:00am July 07, 2025 3:14pm pantoprazole 40 mg delayed release oral tablet (2 sources) Proton Pump Inhibitor Start: 07-04-2025 take 1 tablet by mouth once daily Pantoprazole (Protonix) 40 mg tablet,delayed release (DR/EC) Active 40 mg PO DAILY July 04, 2025 12:00am heart burn polyethylene glycol 3350 80921 mg powder for oral solution (2 sources) Osmotic Laxative Start: 07-04-2025 take 17 g by mouth once daily Polyethylene Glycol 3350 17 gram powder in packet Active 17 g PO DAILY July 04, 2025 12:00am constipation Polyvinyl Alcohol-Povidone 1.4-0.6 % drops (2 sources) Start: 07-04-2025 Polyvinyl Alcohol-Povidone 1.4-0.6 % drops Active 1 NMA OPHTHALMIC 4 TIMES DAILY July 04, 2025 12:00am dry eye 1 drop each eye; prednisoLONE acetate 10 mg/ml ophthalmic suspension (2 sources) Corticosteroid Start: 07-04-2025 Prednisolone Acetate 1 % drops,suspension Active 1 NMA LEFT EYE EVERY 6 HOURS July 04, 2025 12:00am inflamation rOPINIRole 1 mg oral tablet (6 sources) Nonergot Dopamine Agonist Start: 05-04-2025 take 1 tablet by mouth at bedtime Ropinirole 1 mg tablet Active 1 mg PO AT BEDTIME May 04, 2025 12:00am rls sildenafil 100 mg oral tablet (7 sources) Phosphodiesterase 5 Inhibitor Start: 05-09-2021 take 1 tablet by mouth once daily as needed Sildenafil 100 mg Tablet Active 100 mg PO DAILY as needed for Erectile Dysfunction May 09, 2021 12:00am Completed/Discontinued Medications Medication Drug Class(es) Dates Sig (Normalized) Sig (Original) albuterol 2 UNITS (7 sources) Start: 05-09-2021 End: 05-04-2025 albuterol 2 UNITS Discontinued 2 NMA NASAL Q4H as needed for SOB May 09, 2021 12:00am May 04, 2025 11:33am Start: 05-09-2021 albuterol 2 UN ITS Active 2 NMA NASAL Q4H as needed for SOB May 09, 2021 12:00am amLODIPine 5 mg oral tablet (14 sources) Dihydropyridine Calcium Channel Juvenal Start: 05-09-2021 End: 12-12-2024 take 1 tablet by mouth once daily Amlodipine 5 mg tablet Discontinued 5 mg PO DAILY 30 0 June 13, 2024 12:00am December 12, 2024 12:10pm Start: 05-09-2021 take 2 tablets by mo [facility] at bedtime Amlodipine 5 mg Tablet Active 10 mg PO AT BEDTIME May 09, 2021 12:00am blood pressure apixaban 5 mg oral tablet (2 sources) Factor Xa Inhibitor Start: 07-07-2025 take 1 drop(s) by mouth twice daily Apixaban (Eliquis) 5 mg Tablet Active 2.5 mg PO TWICE A DAY 28 28 0 July 07, 2025 12:00am Start from 07/08/2025. Discontinue if platelet count drops less than 50,000 or hemoglobin less than 8 g% aspirin 81 mg oral tablet (14 sources) Platelet Aggregation Inhibitor, Nonsteroidal Anti-inflammatory Drug Start: 06-13-2024 End: 12-12-2024 take 1 capsule by mouth once daily Aspirin 81 mg capsule Discontinued 81 mg PO DAILY 30 0 June 13, 2024 12:00am December 12, 2024 12:10pm Start: 05-09-2021 take 1 tablet by randi th once daily Aspirin 81 mg Tablet,Delayed Release (Dr/Ec) Active 81 mg PO DAILY May 09, 2021 12:00am heart health On Hold: Hold while taking Eliquis. atorvastatin 80 mg oral tablet (20 sources) HMG-CoA Reductase Inhibitor Start: 05-12-2021 End: 12-12-2024 take 1 tablet by mouth once daily Atorvastatin 80 mg tablet Discontinued 80 mg PO DAILY 30 0 June 13, 2024 12:00am December 12, 2024 12:10pm Start: 05-09-2021 End: 05-12-2021 take 1 tablet by mouth at bedtime Atorvastatin 20 mg Tablet Discontinued 20 mg PO AT BEDTIME May 09, 2021 12:00am May 12, 2021 10:09am cholesterol Budesonide-Formoterol (14 sources) Corticosteroid, beta2-Adrenergic Agonist Start: 06-13-2024 End: 12-12-2024 Budesonide-Formoterol (Symbicort) 80-4.5 mcg/actuation HFA aerosol inhaler Discontinued 2 NMA INHALATION TWICE A DAY 10.2 0 June 13, 2024 12:00am December 12, 2024 12:10pm Start: 06-13-2024 End: 12-12-2024 Budesonide-Formoterol (Symbi kojo) 80-4.5 mcg/actuation HFA aerosol inhaler Discontinued 2 NMA INHALATION TWICE A DAY 10.2 June 13, 2024 12:00am December 12, 2024 12:10pm Start: 05-09-2021 Budesonide-For moterol (Symbicort) 80-4.5 mcg/actuation Hfa Aerosol Inhaler Active 2 NMA INHALATION TWICE A DAY May 09, 2021 12:00am COPD Start: 05-09-2021 Budesonide-For moterol (Symbicort) 80-4.5 mcg/actuation Hfa Aerosol Inhaler Active 2 NMA INHALATION TWICE A DAY May 09, 2021 12:00am diazePAM 2 mg oral tablet (7 sources) Benzodiazepine Start: 04-24-2025 End: 05-11-2025 take 1 tablet by mouth three times daily as needed for dizziness Diazepam (Valium) 2 mg tablet Discontinued 2 mg PO THREE TIMES A DAY as needed for vertigo/dizziness 15 5 0 April 24, 2025 12:00am May 11, 2025 6:40pm Dizziness Dizziness and giddiness gabapentin 300 mg oral capsule (14 sources) Anti-epileptic Agent Start: 02-24-2015 End: 12-12-2024 take 1 capsule by mouth three times daily Gabapentin 300 mg capsule Discontinued 300 mg PO THREE TIMES A DAY 90 0 June 13, 2024 12:00am December 12, 2024 12:11pm glipiZIDE 5 mg oral tablet (14 sources) Sulfonylurea Start: 06-13-2024 End: 12-12-2024 take 1 tablet by mouth once daily Glipizide 5 mg tablet Discontinued 5 mg PO DAILY 30 0 June 13, 2024 12:00am December 12, 2024 12:11pm Start: 02-24-2015 End: 12-12-2024 take 8 mg by mouth once daily Glipizide 5 MG tablet Di scontinued 8 mg PO DAILY February 24, 2015 12:00am December 12, 2024 12:11pm diabetes ibuprofen 800 mg oral tablet (6 sources) Nonsteroidal Anti-inflammatory Drug Start: 05-04-2025 End: 05-11-2025 take 1 tablet by mouth every eight hours Ibuprofen (Ibu) 800 mg tablet Discontinued 800 mg PO Q8H May 04, 2025 12:00am May 11, 2025 6:40pm losartan potassium 50 mg oral tablet (14 sources) Angiotensin 2 Receptor Juvenal Start: 05-09-2021 End: 05-11-2025 take 1 tablet by mouth once daily Losartan 50 mg tablet Discontinued 50 mg PO DAILY 30 0 June 13, 2024 12:00am December 12, 2024 12:11pm mecobalamin 1 mg chewable tablet (7 sources) Start: 05-09-2021 End: 05-04-2025 Mecobalamin (Vitamin B12) 1,000 mcg Tablet,Chewable Discontinued 500 ug PO DAILY May 09, 2021 12:00am May 04, 2025 11:36am supplement metFORMIN hydrochloride 1000 mg oral tablet (14 sources) Biguanide Start: 06-13-2024 End: 12-12-2024 take 1 tablet by mouth twice daily Metformin 1,000 mg tablet Discontinued 1000 mg PO TWICE A DAY 60 0 June 13, 2024 12:00am December 12, 2024 12:12pm Start: 05-09-2021 End: 12-12-2024 take 1 tablet by mouth once daily Metformin 1,000 mg Tablet Extended Release 24hr Discontinued 2000 mg PO DAILY May 09, 2021 12:00am December 12, 2024 12:12pm diabetes traMADol hydrochloride 50 mg oral tablet (6 sources) Opioid Agonist Start: 05-04-2025 End: 05-11-2025 take 1 tablet by mouth every six hours as needed for pain Tramadol 50 mg tablet Discontinued 50 mg PO EVERY 6 HOURS as needed for pain 12 0 May 04, 2025 12:00am May 11, 2025 6:42pm Contusion of chest wall Contusion of unspecified front wall of thorax, initial encounter traZODone hydrochloride 50 mg oral tablet (7 sources) Serotonin Reuptake Inhibitor Start: 05-09-2021 End: 05-04-2025 Trazodone 50 mg Tablet Discontinued 25 mg PO AT BEDTIME May 09, 2021 12:00am May 04, 2025 11:34am sleep Vitamin E 200 unit Tablet (7 sources) Start: 05-09-2021 End: 05-04-2025 take 1 tablet by mouth once daily Vitamin E 200 unit Tablet Discontinued 200 U PO DAILY May 09, 2021 12:00am May 04, 2025 11:37am supplement Start: 05-09-2021 End: 05-04-2025 take 1 tablet by mouth once daily Vitamin E 200 unit Tablet Discontinued 200 U PO DAILY May 09, 2021 12:00am May 04, 2025 11:37am Start: 05-09-2021 take 1 tablet by randi th once daily Vitamin E 200 unit Tablet Active 200 U PO DAILY May 09, 2021 12:00am Problems Problem Classification Problem Date Documented Date Episodic/Chronic Abdominal pain (14 sources) Abdominal pain; Translations: [Unspecified abdominal pain] 2024 Episodic Acute cerebrovascular disease (7 sources) Cerebrovascular accident; Translations: [Cerebral infarction, unspecified] 05-11-2021 Chronic Anxiety disorders (8 sources) Anxiety; Translations: [Anxiety disorder, unspecified] Onset: 5 12-20-2024 Chronic Cancer of bronchus; lung (17 sources) Malignant tumor of lung; Translations: [Malignant neoplasm of unspecified part of right bronchus or lung] Onset: 5 04-23-2025 Chronic Cardiac dysrhythmias (7 sources) Nonsustained ventricular tachycardia ; Translations: [Nonsustained ventricular tachycardia] 05-20-2021 Chronic Cardiac dysrhythmias (10 sources) ECG: sinus tachycardia; Translations: [Tachycardia, unspecified] 05-11-2025 Episodic Conditions associated with dizziness or vertigo (14 sources) Dizziness; Translations: [Dizziness and giddiness] Onset: 5 04-23-2025 Episodic Deficiency and other anemia (7 sources) Anemia; Translations: [Anemia, unspecified] 04-23-2025 Episodic Deficiency and other anemia (10 sources) Chronic anemia; Translations: [Anemia, unspecified] 05-11-2025 Episodic Deficiency and other anemia (10 sources) Microcytic anemia; Translations: [Iron deficiency anemia, unspecified] 05-11-2025 Episodic Deficiency and other anemia (1 source) Anemia, unspecified; Translations: [Anemia, unspecified] Onset: Episodic Diabetes mellitus with complications (7 sources) Hyperglycemia due to diabetes mellitus; Translations: [Type 2 diabetes mellitus with hyperglycemia] 12-20-2024 Chronic Diabetes mellitus without complication (7 sources) Diabetes mellitus; Translations: [Type 2 diabetes mellitus without complications] 2024 Chronic Diabetes mellitus without complication (7 sources) Hyperglycemia; Translations: [Hyperglycemia, unspecified] 06-21-2024 Episodic E Codes: Fall (14 sources) Fall; Translations: [Unspecified fall, initial encounter] Onset: 5 05-04-2025 Episodic Fracture of neck of femur (hip) (8 sources) Closed intertrochanteric fracture; Translations: [Displaced intertrochanteric fracture of right femur, initial encounter for closed fracture] Onset: 5 07-03-2025 Episodic Genitourinary symptoms and ill-defined conditions (1 source) Blood in urine; Translations: [Hematuria, unspecified] 07-08-2025 Episodic Nonspecific chest pain (7 sources) Chest pain; Translations: [Chest pain, unspecified] 05-20-2021 Episodic Other connective tissue disease (1 source) History of repair of hip joint; Translations: [Presence of right artificial hip joint] 07-08-2025 Chronic Other injuries and conditions due to external causes (6 sources) Closed injury of head; Translations: [Unspecified injury of head, initial encounter] 05-04-2025 Episodic Other injuries and conditions due to external causes (1 source) Unspecified injury of head, initial encounter; Translations: [Unspecified injury of head, initial encounter] Onset: Episodic Other lower respiratory disease (10 sources) Dyspnea on exertion; Translations: [Other forms of dyspnea] 05-11-2025 Episodic Other nervous system disorders (7 sources) Neuropathy; Translations: [Polyneuropathy, unspecified] 06-21-2024 Chronic Other nervous system disorders (7 sources) H/O: Disorder; Translations: [Personal history of other diseases of the nervous system and sense organs] 12-20-2024 Episodic Other nervous system disorders (1 source) Postoperative pain ; Translations: [Other acute postprocedural pain] 07-08-2025 Episodic Other nutritional; endocrine; and metabolic disorders (10 sources) Hypercalcemia; Translations: [Hypercalcemia] 05-11-2025 Chronic Other nutritional; endocrine; and metabolic disorders (1 source) Hypercalcemia; Translations: [Hypercalcemia] Onset: Chronic Other screening for suspected conditions (not mental disorders or infectious disease) (10 sources) Raised cardiac enzyme or marker; Translations: [Other specified abnormal findings of blood chemistry] 05-11-2025 Episodic Pneumonia (except that caused by tuberculosis or sexually transmitted disease) (11 sources) Postobstructive pneumonia; Translations: [Pneumonia, unspecified organism] Onset: 5 05-11-2025 Episodic Sprains and strains (6 sources) Strain of neck muscle; Translations: [Strain of muscle, fascia and tendon at neck level, initial encounter] 05-04-2025 Episodic Superficial injury; contusion (12 sources) Contusion of chest; Translations: [Contusion of unspecified front wall of thorax, initial encounter] 05-04-2025 Episodic Results Test Name Value Interpretation Reference Range Facility Absolute lymphocyte countOrd ered By: Marissa Rivera on 07-08-2025 Lymphocytes Auto (Unsp spec) [#/Vol] 1.42 10*3/uL 0.83-4.51 [facility] Absolute neutrophil countOrd ered By: Marissa Rivera on 07-08-2025 Neutrophils (Bld) [#/Vol] 6.6 10*3/uL 2.0-7.7 [facility] Anion gap in Serum or Plasma Ordered By: Marissa Rivera on 07-08-2025 Anion gap [Moles/Vol] 9 mmol/L 5-15 [facility] Automated lymphocyte count a s percentage of total leukocytesOrdered By: Marissa Rivera on 07-08-2025 Lymphocytes/100 WBC Auto (Unsp spec) 16.1 % Low 19-41 [facility] BUN/creatinine ratioOrdered By: Marissa Rivera on 07-08-2025 Urea nitrogen/Creatinine [Mass ratio] 20.9 mg/mg High 10-20 [facility] Basic Metabolic Profile (BMP )on 07-08-2025 BUN/CRE 20.9 RATIO High 10- [facility] Comment on above: Performed By: #### L 501.080 #### [facility] [address] [place], [address] Calcium [Mass/Vol] 9.1 mg/dL Normal 7.6-11.0 [facility] Comment on above: Performed By: #### L 501.080 #### [facility] [address] [place], [address] Chloride [Moles/Vol] 102 mmol/L Normal 98-108 [facility] Comment on above: Performed By: #### L 501.080 #### [facility] [address] [place], [address] CO2 [Moles/Vol] 23.9 mmol/L Normal 21.0-32.0 [facility] Comment on above: Performed By: #### L 501.080 #### [facility] [address] [place], [address] Creatinine [Mass/Vol] 0.93 mg/dL Normal 0.70-1.20 [facility] Comment on above: Performed By: #### L 501.080 #### [facility] [address] [place], [address] ECRCL 70.28 ml/min Normal 50-250 [facility] Comment on above: Performed By: #### L [id number] #### [facility] [address] [place], [address] GAP 9 Normal 5-15 [facility] Comment on above: Performed By: #### L 501.080 #### [facility] [address] [place], [address] GFR/1.73 sq M.predicted among non-blacks MDRD (S/P/Bld) [Vol rate/Area] 85 mL/min/{1.73_m2} Normal >60 [facility] Comment on above: Result Comment: mL/m in/1.73m2 CKD-EPI Creatinine Equation (2020) Performed By: #### L 501.080 #### [facility] [address] [place], [address] Glucose [Mass/Vol] 210 mg/dL High 70-99 [facility] Comment on above: Performed By: #### L 501.080 #### [facility] [address] [place], [address] Potassium [Moles/Vol] 4.3 mmol/L Normal 3.3-5.1 [facility] Comment on above: Performed By: #### L [id number] #### [facility] [address] [place], [address] Sodium [Moles/Vol] 135 mmol/L Normal 133-145 [facility] Comment on above: Performed By: #### L [id number] #### [facility] [address] [place], [place], [id number] Urea nitrogen [Mass/Vol] 19 mg/dL Normal 4-19 [facility] Comment on above: Performed By: #### L [id number] #### [facility] [address] [place], [place], [id number] Basophil percentageOrdered B y: Marissa Rivera on 07-08-2025 Basophils/100 WBC (Bld) 0.2 % 0-1 [facility] Bilirubin Test strip Ql (U)O rdered By: Marissa Rivera on 07-08-2025 Bilirubin Ql (U) Negative Negative [facility] Blood manual differential co mment interpretation (narrative result)Ordered By: Marissa Rivera on 07-08-2025 Manual differential comment Refugio (Bld) [Interp] SCANNED [facility] CBC W/Diff, Automatedon 06-25 Anisocytosis Ql (Bld) 2+ Normal [facility] Comment on above: Performed By: #### L [id number] #### [facility] [address] [place], [place], [id number] SMEAR COMMENT SCANNED Normal [facility] Comment on above: Performed By: #### L [id number] #### [facility] [address] [place], [place], [id number] Carbon dioxide, total [Moles /volume] in Central venous bloodOrdered By: Marissa Rivera on 07-08-2025 CO2 [Moles/Vol] 23.9 mmol/L 21.0-32.0 [facility] Chloride assayOrdered By: Sophy Rivera on 07-08-2025 Chloride [Moles/Vol] 102 mmol/L 98-108 [facility] Emergency Department Summary on 07-08-2025 Emergency Department Summary [facility] Medical Records [facility] [address] [place] [address] Emergency Department Summary 07/08/25 MR#: [id number] Acct: [id number] Name: ITZEL ALONZO Rep #: [id number] : [id number] 75 From: Monty Clarke MD PCP: Carlene Haji, POWER BARKER OPERATOR-C Status:REG ER Location: ED HPI History of Present Illness Chief Complaint: Complaint Narrative Narrative: 75-year-old male with PMH of HTN, HLD, DM2, cirrhosis, anemia had a traumatic hip fracture with surgical fixation on 07/04/[address] Nuno Campbell. He was discharged to [facility]. He states this morning he started to have blood in his urine prompting his visit. He also states they are giving him Tylenol and it is not managing his hip pain well. He denies fever or chills, nausea or vomiting, or abdominal or flank pain. He was discharged on Eliquis 2.5 mg twice daily. [facility] Medical History CKD (chronic kidney disease), stage II Chronic anemia Cancer of right lung Anxiety and depression GERD (gastroesophageal reflux disease) Cirrhosis Former smoker TIA (transient ischemic attack) Kidney stones Neuropathy PTSD (post-traumatic stress disorder) Hepatitis COPD (chronic obstructive pulmonary disease) Hypertension Diabetes Home Medications ???Medication ???Instructions ???Recorded ???Last Taken ???Type gabapentin 300 mg capsule 300 mg PO TID neuropathy 02/24/15 07/02/25 21:00 History amlodipine 5 mg tablet 10 mg PO QHS blood pressure 07/02/25 21:00 History 10 mg aspirin 81 mg tablet,delayed 81 mg PO DAILY heart health 07/02/25 History release Held on 07/07/25. Instructions: Hold while taking Eliquis. budesonide-formoterol HFA 80 2 puff inhalation BID COPD 2 1 07/02/25 History mcg-4.5 mcg/actuation aerosol inhaler (Symbicort) cyclobenzaprine 10 mg tablet 10 mg PO TID PRN muscle spasms 07/02/25 History sildenafil 100 mg tablet 100 mg PO DAILY PRN Erectile 05/0907/02/25 History Dysfunction atorvastatin 80 mg tablet 80 mg PO QHS cholesterol #90 tabs 05/12/21 07/02/25 21:00 Rx insulin aspart U-100 100 unit/mL 10 unit subcut TIDCM DM 12/12/24 0 07/02/25 History (3 mL) subcutaneous pen (Novolog FlexPen U-100 Insulin aspart) insulin glargine 100 unit/mL (3 10 unit subcut QPM Dm 05/04/2507/19 History mL) subcutaneous pen (Lantus Solostar U-100 Insulin) magnesium hydroxide 400 mg/5 mL 5 ml PO DAILY PRN constipation 09/1807/02/25 History oral suspension (Gentle Laxative (magnesium hydroxide)) ropinirole 1 mg tablet 1 mg PO QHS rls 05/04/25 07/02/25 History albuterol 90 mcg/actuation aerosol 90 mcg inhalation Q4H PRN sob Unknown History inhaler calcium carbonate 1,500 mg PO DAILY supplement 07/0407/02/25 History cyclopentolate 2 % eye drops 1 drp LEFT EYE QHS inflamation 09/1807/02/25 History ferrous sulfate 325 mg (65 mg 325 mg PO .every other day 5 Unknown History iron) tablet (Feosol) supplement lidocaine 5 % topical patch 2 patch topical DAILY PRN pain 09/18 Unknown History melatonin 3 mg tablet 3 mg PO QHS sleep 07/04/25 5 History nicotine 14 mg/24 hr daily 1 patch transdermal DAILY smoking 07/04/25 Unknown History transdermal patch (Nicoderm CQ) cessation pantoprazole 40 mg tablet,delayed 40 mg PO DAILY heart burn 5 07/02/25 History release (Protonix) polyethylene glycol 3350 17 gram 17 g PO DAILY constipation 5 07/02/25 History oral powder packet polyvinyl alcohol-povidone 1.4 1 drp ophthalmic (eye) 4X/DAY dry 07/04/25 07/02/25 History %-0.6 % eye drops eye prednisolone acetate 1 % eye 1 drp LEFT EYE Q6H inflamation 09/1807/02/25 History drops,suspension sennosides 8.6 mg-docusate sodium 2 tab-cap PO DAILY stool softener 07/04/25 06/25/25 History 50 mg tablet (Senna with Docusate Sodium) tiotropium 2.5 mcg-olodaterol 2.5 2 puff inhalation DAILY asthma 07/02/25 History mcg/actuation mist for inhalation acetaminophen 500 mg tablet 1,000 mg (2 x 500 mg) PO Q8 #0 tab s 07/07/25 Unknown Rx apixaban 5 mg tablet (Eliquis) 2.5 mg (1/2 x 5 mg) PO BID 4 weeks 07/07/25 Unknown Rx #28 tabs oxycodone 5 mg tablet 2.5 mg (1/2 x 5 mg) PO Q6H PRN Unknown Rx pain 3 days #7 tabs Allergy/AdvReac Type Severity Reaction Status Date / Time No Known Allergies Allergy Verified 07/08/25 10:57 Family History Mother CVA (cerebral vascular accident) Family History other Surgical History Hx of appendectomy Social History (Reviewed 07/04 (more content not included)... Normal [facility] Eosinophil percentageOrdered By: Marissa Rivera on 07-08-2025 Eosinophils/100 WBC (Bld) 0.9 % 0-5 [facility] Erythrocyte distribution wid th ratioOrdered By: Marissa Rivera on 07-08-2025 Erythrocyte distribution width (RBC) [Ratio] 22.5 % High 11.6-14.6 [facility] Erythrocyte distribution wid th standard deviationOrdered By: Marissa Rivera on 07-08-2025 Erythrocyte distribution width (RBC) [Ratio] 56.8 fl High 35.1-43.9 [facility] Glomerular filtration rate ( GFR) estimation/1.73 sq m using serum, plasma, or whole bOrdered By: Marissa Rivera on 07-08-2025 GFR/1.73 sq M.predicted among non-blacks MDRD (S/P/Bld) [Vol rate/Area] 85 mL/min/{1.73_m2} >60 [facility] Comment on above: mL/min/1.73m2 CKD-EP I Creatinine Equation (2020) Hematocrit Auto (Bld) [Volum e fraction]Ordered By: Marissa Rivera on 07-08-2025 Hematocrit (Bld) [Volume fraction] 26.8 % Low 40-54 [facility] Hemoglobin measurementOrdere d By: Marissa Rivera on 07-08-2025 Hemoglobin (Bld) [Mass/Vol] 8.6 g/dL Low 13.0-16.5 [facility] Immature granulocytes/100 WB C Auto (Bld)Ordered By: Marissa Rivera on 07-08-2025 Immature granulocytes/100 WBC (Bld) 0.300 % 0.0-0.9 [facility] Comment on above: IG% - Immature Granu locytes (promyelocytes, myelocytes and metamyelocytes) > 1% indicates that a LEFT SHIFT is Present. Ketones Test strip Ql (U)Ord ered By: Marissa Rivera on 07-08-2025 Ketones Ql (U) Negative Negative [facility] Laboratory - Hematology and Cell countsOrdered By: Marissa Rivera on 07-08-2025 Anisocytosis Ql (Bld) 2+ [facility] MCV (mean corpuscular volume ) determinationOrdered By: Marissa Rivera on 07-08-2025 MCV (RBC) [Entitic vol] 71.5 fL Low 80-94 [facility] Mean corpuscular hemoglobin (MCH) determinationOrdered By: Marissa Rivera on 07-08-2025 MCH (RBC) [Entitic mass] 22.9 pg Low 27.0-32.0 [facility] Mean corpuscular hemoglobin concentration (MCHC) determinationOrdered By: Marissa Rivera on 07-08-2025 MCHC (RBC) [Mass/Vol] 32.1 g/dL 32-36 [facility] Mean platelet volume determi nationOrdered By: Marissa Rivera on 07-08-2025 Platelet mean volume (Bld) [Entitic vol] 9.6 fL 6.2-12.0 [facility] Microscopic analysis of urin e for red blood cells (RBC)Ordered By: Marissa Rivera on 07-08-2025 Microscopic analysis of urine for red blood cells (RBC) 10-25 SEEN /hpf 0-5 [facility] Monocyte percentageOrdered B y: Marissa Rivera on 07-08-2025 Monocytes/100 WBC (Bld) 7.2 % 0-10 [facility] Mucus LM Ql (Urine sed)Order ed By: Marissa Rivera on 07-08-2025 Mucus Ql (Urine sed) 0 SEEN /hpf [facility] Neutrophil percentageOrdered By: Marissa Rivera on 07-08-2025 Neutrophils/100 WBC (Bld) 75.3 % High 47-70 [facility] Nitrite Test strip Ql (U)Ord ered By: Marissa Rivera on 07-08-2025 Nitrite Ql (U) Negative Negative [facility] Nucleated red blood cell per centageOrdered By: Marissa Rivera on 07-08-2025 Nucleated RBC/100 WBC (Bld) [Ratio] 0 % 0-5 [facility] Platelet countOrdered By: Sophy Rivera on 07-08-2025 Platelets (Bld) [#/Vol] 250 10*3/uL 150-450 [facility] Potassium measurement (mass/ volume)Ordered By: Marissa Rivera on 07-08-2025 Potassium (Unsp spec) [Mass/Vol] 4.3 mmol/L 3.3-5.1 [facility] Protein Test strip Ql (U)Ord ered By: Marissa Rivera on 07-08-2025 Protein Ql (U) 100 mg/dl High Negative [facility] RBC Auto (Bld) [#/Vol]Ordere d By: Marissa Rivera on 07-08-2025 RBC (Bld) [#/Vol] 3.75 10*6/uL Low 4.6-6.2 [facility] Serum creatinine measurement (mass/volume)Ordered By: Marissa Rivera on 07-08-2025 Creatinine [Mass/Vol] 0.93 mg/dL 0.70-1.20 [facility] Serum glucose measurement (m ass/volume)Ordered By: Marissa Rivera on 07-08-2025 Glucose [Mass/Vol] 210 mg/dL High 70-99 [facility] Serum or plasma calcium ivania urement (mass/volume)Ordered By: Marissa Rivera on 07-08-2025 Calcium [Mass/Vol] 9.1 mg/dL 7.6-11.0 [facility] Serum or plasma urea nitroge n measurement (mass/volume)Ordered By: Marissa Rivera on 07-08-2025 Urea nitrogen [Mass/Vol] 19 mg/dL 4-19 [facility] Sodium levelOrdered By: Marissa Rivera on 07-08-2025 Sodium [Moles/Vol] 135 mmol/L 133-145 [facility] Squamous epithelial cells de tection in urine sediment by light microscopyOrdered By: Marissa Rivera on 07-08-2025 Epithelial cells.squamous LM Ql (Urine sed) 0 SEEN /hpf 0-5 [facility] Urinalysis, Completeon 07-08 RBC 10-25 SEEN Normal 0-5 [facility] Comment on above: Order Comment: CLEAN CATCH Performed By: #### L 501.080 #### [facility] [address] [place], [address] BACTERIA 0 SEEN Normal None Seen [facility] Comment on above: Order Comment: CLEAN CATCH Performed By: #### L [id number] #### [facility] [address] [place], [address] EPI,SQUAMOUS 0 SEEN Normal 0-5 [facility] Comment on above: Order Comment: CLEAN CATCH Performed By: #### L [id number] #### [facility] [address] [place], [address] Mucus Ql (Urine sed) 0 SEEN Normal [facility] Comment on above: Order Comment: CLEAN CATCH Performed By: #### L [id number] #### [facility] [address] [place], [address] WBC 0 SEEN Normal 0-5 [facility] Comment on above: Order Comment: CLEAN CATCH Performed By: #### L [id number] #### [facility] [address] [place], [address] Urine clarityOrdered By: Ira Rivera on 07-08-2025 Clarity (U) Clear Clear [facility] Urine color determinationOrd ered By: Marissa Rivera on 07-08-2025 Color (U) Yellow Yellow [facility] Urine glucose detectionOrder ed By: Marissa Rivera on 07-08-2025 Glucose Ql (U) 100 mg/dl High Normal [facility] Urine leukocyte esterase det ection by dipstickOrdered By: Marissa Rivera on 07-08-2025 Leukocyte esterase Test strip Ql (U) Negative Negative [facility] Urine pHOrdered By: Marissa rowland on 07-08-2025 pH (U) 6.5 [pH] 5.0 - 8.0 [facility] Urine sediment bacteria coun t by microscopy (number/high power field)Ordered By: Marissa Rivera on 07-08-2025 Bacteria LM.HPF (Urine sed) [#/Area] 0 /[HPF] None Seen [facility] Urine specific gravity measu rementOrdered By: Marissa Rivera on 07-08-2025 Specific gravity (U) [Rel density] 1.010 1.002-1.030 [facility] Urine urobilinogen measureme ntOrdered By: Marissa Rivera on 07-08-2025 Urobilinogen Ql (U) Normal mg/dl Normal [facility] White blood cell (WBC) count Ordered By: Marissa Rivera on 07-08-2025 WBC (Bld) [#/Vol] 8.8 10*3/uL 4.4-11.0 [facility] White blood cell countOrdere d By: Marissa Rivera on 07-08-2025 White blood cell count 0 SEEN /hpf 0-5 [facility] Absolute lymphocyte countOrd ered By: Uche Felix on 07-07-2025 Lymphocytes Auto (Unsp spec) [#/Vol] 1.99 10*3/uL 0.83-4.51 [facility] Absolute neutrophil countOrd ered By: Uche Felix on 07-07-2025 Neutrophils (Bld) [#/Vol] 7.5 10*3/uL 2.0-7.7 [facility] Anion gap in Serum or Plasma Ordered By: Uche Felix on 07-07-2025 Anion gap [Moles/Vol] 9 mmol/L 5-15 [facility] Automated lymphocyte count a s percentage of total leukocytesOrdered By: Uche Felix on 07-07-2025 Lymphocytes/100 WBC Auto (Unsp spec) 19.0 % 19-41 [facility] BUN/creatinine ratioOrdered By: Uche Felix on 07-07-2025 Urea nitrogen/Creatinine [Mass ratio] 23.6 mg/mg High 10- [facility] Basic Metabolic Profile (BMP )on 07-07-2025 BUN/CRE 23.6 RATIO High - [facility] Comment on above: Performed By: #### L 501.080 #### [facility] [address] [place], [address] Calcium [Mass/Vol] 8.7 mg/dL Normal 7.6-11.0 [facility] Comment on above: Performed By: #### [id number] #### [facility] [address] [place], [address] Chloride [Moles/Vol] 104 mmol/L Normal 98-108 [facility] Comment on above: Performed By: #### [id number] #### [facility] [address] [place], [address] CO2 [Moles/Vol] 23.0 mmol/L Normal 21.0-32.0 [facility] Comment on above: Performed By: #### [id number] #### [facility] [address] [place], [address] Creatinine [Mass/Vol] 0.90 mg/dL Normal 0.70-1.20 [facility] Comment on above: Performed By: #### [id number] #### [facility] [address] [place], [address] ECRCL 58.14 ml/min Normal 50-250 [facility] Comment on above: Performed By: #### [id number] #### [facility] [address] [place], [address] GAP 9 Normal 5-15 [facility] Comment on above: Performed By: #### L [id number] #### [facility] [address] [place], [address] GFR/1.73 sq M.predicted among non-blacks MDRD (S/P/Bld) [Vol rate/Area] 88 mL/min/{1.73_m2} Normal >60 [facility] Comment on above: Result Comment: mL/m in/1.73m2 CKD-EPI Creatinine Equation (2020) Performed By: #### L [id number] #### [facility] [address] [place], [address] Glucose [Mass/Vol] 186 mg/dL High 70-99 [facility] Comment on above: Performed By: #### L [id number] #### [facility] [address] [place], [address] Potassium [Moles/Vol] 4.4 mmol/L Normal 3.3-5.1 [facility] Comment on above: Performed By: #### [id number] #### [facility] [address] [place], [address] Sodium [Moles/Vol] 136 mmol/L Normal 133-145 [facility] Comment on above: Performed By: #### [id number] #### [facility] [address] [place], [address] Urea nitrogen [Mass/Vol] 21 mg/dL High 4-19 [facility] Comment on above: Performed By: #### L [id number] #### [facility] [address] [place], [address] Basophil percentageOrdered B y: Uche Felix on 07-07-2025 Basophils/100 WBC (Bld) 0.1 % 0-1 [facility] Bedside Glucoseon 07-07-2025 FINGERSTICK GLU 213 mg/dL High 74-106 [facility] Comment on above: Result Comment: BELLA GEMENT OF PATIENT CARE PER NURSING PROTOCOL Performed By: #### L [id number] #### [facility] [address] [place], [address] FINGERSTICK GLU 208 mg/dL High 74-106 [facility] Comment on above: Result Comment: BELLA GEMENT OF PATIENT CARE PER NURSING PROTOCOL Performed By: #### L [id number] #### [facility] [address] [place], [address] FINGERSTICK GLU 185 mg/dL High [address] [place] [address] Comment on above: Result Comment: BELLA GEMENT OF PATIENT CARE PER NURSING PROTOCOL Performed By: #### L [id number] #### [facility] [address] [place], [address] Blood polychromasia detectio n by light microscopyOrdered By: Uche Felix on 07-07-2025 Polychromasia LM Ql (Bld) 1+ [facility] CBC W/Diff, Automatedon 06-25 Anisocytosis Ql (Bld) 1+ Normal [facility] Comment on above: Performed By: #### L [id number] #### [facility] [address] [place], [address] PLT EST ADEQUATE Normal ADEQ [facility] Comment on above: Performed By: #### L [id number] #### [facility] [address] [place], [address] POLYCHROMASIA 1+ Normal [facility] Comment on above: Performed By: #### L [id number] #### [facility] [address] [place], [address] Carbon dioxide, total [Moles /volume] in Central venous bloodOrdered By: Uche Felix on 07-07-2025 CO2 [Moles/Vol] 23.0 mmol/L 21.0-32.0 [facility] Chloride assayOrdered By: Jose De Jesus Felix on 07-07-2025 Chloride [Moles/Vol] 104 mmol/L 98-108 [facility] Eosinophil percentageOrdered By: Uche Felix on 07-07-2025 Eosinophils/100 WBC (Bld) 1.3 % 0-5 [facility] Erythrocyte distribution wid th ratioOrdered By: Uche Felix on 07-07-2025 Erythrocyte distribution width (RBC) [Ratio] 21.1 % High 11.6-14.6 [facility] Erythrocyte distribution wid th standard deviationOrdered By: Uche Felix on 07-07-2025 Erythrocyte distribution width (RBC) [Ratio] 54.1 fl High 35.1-43.9 [facility] Glomerular filtration rate ( GFR) estimation/1.73 sq m using serum, plasma, or whole bOrdered By: Uche Felix on 07-07-2025 GFR/1.73 sq M.predicted among non-blacks MDRD (S/P/Bld) [Vol rate/Area] 88 mL/min/{1.73_m2} >60 [facility] Comment on above: mL/min/1.73m2 CKD-EP I Creatinine Equation (2020) [facility] deOrdered By: Anthony Salgado on 07-07-2025 Glucose [Mass/Vol] 213 mg/dL High 74-106 [facility] Comment on above: MANAGEMENT OF PATIEN T CARE PER NURSING PROTOCOL Hematocrit Auto (Bld) [Volum e fraction]Ordered By: Uche Felix on 07-07-2025 Hematocrit (Bld) [Volume fraction] 25.6 % Low 40-54 [facility] Hemoglobin measurementOrdere d By: Uche Felix on 07-07-2025 Hemoglobin (Bld) [Mass/Vol] 8.0 g/dL Low 13.0-16.5 [facility] Immature granulocytes/100 WB C Auto (Bld)Ordered By: Uche Felix on 07-07-2025 Immature granulocytes/100 WBC (Bld) 0.400 % 0.0-0.9 [facility] Comment on above: IG% - Immature Granu locytes (promyelocytes, myelocytes and metamyelocytes) > 1% indicates that a LEFT SHIFT is Present. Laboratory - Hematology and Cell countsOrdered By: Uche Felix on 07-07-2025 Anisocytosis Ql (Bld) 1+ [facility] MCV (mean corpuscular volume ) determinationOrdered By: Uche Felix on 07-07-2025 MCV (RBC) [Entitic vol] 71.3 fL Low 80-94 [facility] Mean corpuscular hemoglobin (MCH) determinationOrdered By: Uche Felix on 07-07-2025 MCH (RBC) [Entitic mass] 22.3 pg Low 27.0-32.0 [facility] Mean corpuscular hemoglobin concentration (MCHC) determinationOrdered By: Uche Felix on 07-07-2025 MCHC (RBC) [Mass/Vol] 31.3 g/dL Low 32-36 [facility] Mean platelet volume determi nationOrdered By: Uche Felix on 07-07-2025 Platelet mean volume (Bld) [Entitic vol] 9.7 fL 6.2-12.0 [facility] Monocyte percentageOrdered B y: Uche Felix on 07-07-2025 Monocytes/100 WBC (Bld) 7.8 % 0-10 [facility] Neutrophil percentageOrdered By: Uche Felix on 07-07-2025 Neutrophils/100 WBC (Bld) 71.4 % High 47-70 [facility] Nucleated red blood cell per centageOrdered By: Uche Felix on 07-07-2025 Nucleated RBC/100 WBC (Bld) [Ratio] 0 % 0-5 [facility] Platelet countOrdered By: Jose De Jesus Felix on 07-07-2025 Platelets (Bld) [#/Vol] 234 10*3/uL 150-450 [facility] Platelet estimateOrdered By: Uche Felix on 07-07-2025 Platelets LM Ql (Bld) ADEQUATE ADEQ [facility] Potassium measurement (mass/ volume)Ordered By: Uche Felix on 07-07-2025 Potassium (Unsp spec) [Mass/Vol] 4.4 mmol/L 3.3-5.1 [facility] RBC Auto (Bld) [#/Vol]Ordere d By: Uche Felix on 07-07-2025 RBC (Bld) [#/Vol] 3.59 10*6/uL Low 4.6-6.2 [facility] Serum creatinine measurement (mass/volume)Ordered By: Uche Felix on 07-07-2025 Creatinine [Mass/Vol] 0.90 mg/dL 0.70-1.20 [facility] Serum glucose measurement (m ass/volume)Ordered By: Uche Felix on 07-07-2025 Glucose [Mass/Vol] 186 mg/dL High 70-99 [facility] Serum or plasma calcium ivania urement (mass/volume)Ordered By: Uche Felix on 07-07-2025 Calcium [Mass/Vol] 8.7 mg/dL 7.6-11.0 [facility] Serum or plasma urea nitroge n measurement (mass/volume)Ordered By: Uche Felix on 07-07-2025 Urea nitrogen [Mass/Vol] 21 mg/dL High 4-19 [facility] Sodium levelOrdered By: Tj Felix on 07-07-2025 Sodium [Moles/Vol] 136 mmol/L 133-145 [facility] White blood cell (WBC) count Ordered By: Uche Felix on 07-07-2025 WBC (Bld) [#/Vol] 10.5 10*3/uL 4.4-11.0 [facility] Basic Metabolic Profile (BMP )on 07-06-2025 BUN/CRE 21.0 RATIO High 10-20 [facility] Comment on above: Performed By: #### L 500.2500, L100.0100 #### [facility] [address] [place], [place], [address] Calcium [Mass/Vol] 8.6 mg/dL Normal 7.6-11.0 [facility] Comment on above: Performed By: #### L [id number], L100.0100 #### [facility] [address] [place], [address] Chloride [Moles/Vol] 103 mmol/L Normal 98-108 [facility] Comment on above: Performed By: #### [id number], [id number] #### [facility] [address] [place], [address] CO2 [Moles/Vol] 20.0 mmol/L Low 21.0-32.0 [facility] Comment on above: Performed By: #### [id number], [id number] #### [facility] [address] [place], [address] Creatinine [Mass/Vol] 1.03 mg/dL Normal 0.70-1.20 [facility] Comment on above: Performed By: #### L [id number], L100.0100 #### [facility] [address] [place], [address] ECRCL 50.29 ml/min Normal 50-250 [facility] Comment on above: Performed By: #### L [id number], L100.0100 #### [facility] [address] [place], [address] GAP 11 Normal 5-15 [facility] Comment on above: Performed By: #### L [id number], L100.0100 #### [facility] [address] [place], [address] GFR/1.73 sq M.predicted among non-blacks MDRD (S/P/Bld) [Vol rate/Area] 75 mL/min/{1.73_m2} Normal >60 [facility] Comment on above: Result Comment: mL/m in/1.73m2 CKD-EPI Creatinine Equation (2020) Performed By: #### L 500.2500, L100.0100 #### [facility] [address] [place], [address] Glucose [Mass/Vol] 141 mg/dL High 70-99 [facility] Comment on above: Performed By: #### L 500.2500, L100.0100 #### [facility] [address] [place], [address] Potassium [Moles/Vol] 3.7 mmol/L Normal 3.3-5.1 [facility] Comment on above: Performed By: #### L 500.2500, L100.0100 #### [facility] [address] [place], [address] Sodium [Moles/Vol] 134 mmol/L Normal 133-145 [facility] Comment on above: Performed By: #### L 500.2500, L100.0100 #### [facility] [address] [place], [address] Urea nitrogen [Mass/Vol] 22 mg/dL High 4-19 [facility] Comment on above: Performed By: #### L 500.2500, L100.0100 #### [facility] [address] [place], [address] Bedside Glucoseon 07-06-2025 FINGERSTICK GLU 183 mg/dL High 74-106 [facility] Comment on above: Result Comment: BELLA GEMENT OF PATIENT CARE PER NURSING PROTOCOL Performed By: #### L 501.080 #### [facility] [address] [place], [address] FINGERSTICK GLU 213 mg/dL High 74-106 [facility] Comment on above: Result Comment: BELLA GEMENT OF PATIENT CARE PER NURSING PROTOCOL Performed By: #### L 501.080 #### [facility] [address] [place], [address] FINGERSTICK GLU 189 mg/dL High 74-106 [facility] Comment on above: Result Comment: BELLA GEMENT OF PATIENT CARE PER NURSING PROTOCOL Performed By: #### L 501.080 #### [facility] [address] [place], [address] FINGERSTICK GLU 142 mg/dL High 74-106 [facility] Comment on above: Result Comment: BELLA PENALOZA OF PATIENT CARE PER NURSING PROTOCOL Performed By: #### L 501.080 #### [facility] [address] [place], [address] Blood manual differential co mment interpretation (narrative result)Ordered By: Uche Felix on 07-06-2025 Manual differential comment Refugio (Bld) [Interp] See comment [facility] Comment on above: ANISOCYTOSIS CBC W/Diff, Automatedon 06-25 SMEAR COMMENT Normal [facility] Comment on above: Result Comment: ANIS OCYTOSIS Performed By: #### L 500.2500, L100.0100 #### [facility] [address] [place], [address] Anisocytosis Ql (Bld) 1+ Normal [facility] Comment on above: Performed By: #### L 500.2500, L100.0100 #### [facility] [address] [place], [address] BASO STIPPLING RARE Normal [facility] Comment on above: Performed By: #### L 500.2500, L100.0100 #### [facility] [address] [place], [address] OVALOCYTE RARE Normal [facility] Comment on above: Performed By: #### L 500.2500, L100.0100 #### [facility] [address] [place], [address] POLYCHROMASIA 1+ Normal [facility] Comment on above: Performed By: #### L 500.2500, L100.0100 #### [facility] [address] [place], [address] Erythrocyte basophilic stipp ling detectionOrdered By: Uche Felix on 07-06-2025 Basophilic stippling LM Ql (Bld) RARE [facility] Ovalocyte detectionOrdered B y: Uche Felix on 07-06-2025 Ovalocytes LM Ql (Bld) [facility] Surgical pathology reportOrd ered By: Alfredito Dubon on 07-06-2025 Surgical pathology study [facility] Basic Metabolic Profile (BMP )on 07-05-2025 BUN/CRE 16.8 RATIO Normal 10-20 [facility] Comment on above: Performed By: #### L 500.2500, L100.0100 #### [facility] [address] [place], [address] Calcium [Mass/Vol] 9.1 mg/dL Normal 7.6-11.0 [facility] Comment on above: Performed By: #### L 500.2500, L100.0100 #### [facility] [address] [place], [address] Chloride [Moles/Vol] 102 mmol/L Normal 98-108 [facility] Comment on above: Performed By: #### L 500.2500, L100.0100 #### [facility] [address] [place], [address] CO2 [Moles/Vol] 21.6 mmol/L Normal 21.0-32.0 [facility] Comment on above: Performed By: #### L 500.2500, L100.0100 #### [facility] [address] [place], [address] Creatinine [Mass/Vol] 1.14 mg/dL Normal 0.70-1.20 [facility] Comment on above: Performed By: #### L 500.2500, L100.0100 #### [facility] [address] [place], [address] ECRCL 46.13 ml/min Low 50-250 [facility] Comment on above: Performed By: #### L 500.2500, L100.0100 #### [facility] [address] [place], [address] GAP 12 Normal 5-15 [facility] Comment on above: Performed By: #### L 500.2500, L100.0100 #### [facility] [address] [place], [address] GFR/1.73 sq M.predicted among non-blacks MDRD (S/P/Bld) [Vol rate/Area] 66 mL/min/{1.73_m2} Normal >60 [facility] Comment on above: Result Comment: mL/m in/1.73m2 CKD-EPI Creatinine Equation (2020) Performed By: #### L 500.2500, L100.0100 #### [facility] [address] [place], [address] Glucose [Mass/Vol] 178 mg/dL High 70-99 [facility] Comment on above: Performed By: #### L 500.2500, L100.0100 #### [facility] [address] [place], [address] Potassium [Moles/Vol] 3.8 mmol/L Normal 3.3-5.1 [facility] Comment on above: Performed By: #### L 500.2500, L100.0100 #### [facility] [address] [place], [address] Sodium [Moles/Vol] 135 mmol/L Normal 133-145 [facility] Comment on above: Performed By: #### L 500.2500, L100.0100 #### [facility] [address] [place], [address] Urea nitrogen [Mass/Vol] 19 mg/dL Normal 4-19 [facility] Comment on above: Performed By: #### L 500.2500, L100.0100 #### [facility] [address] [place], [address] Bedside Glucoseon 07-05-2025 FINGERSTICK GLU 214 mg/dL High [address] [place] [address] Comment on above: Result Comment: BELLA GEMENT OF PATIENT CARE PER NURSING PROTOCOL Performed By: #### L 501.080 #### [facility] [address] [place], [address] FINGERSTICK GLU 232 mg/dL High [address] [place] [address] Comment on above: Result Comment: BELLA GEMENT OF PATIENT CARE PER NURSING PROTOCOL Performed By: #### L 501.080 #### [facility] [address] [place], [address] FINGERSTICK GLU 290 mg/dL High [address] [place] [address] Comment on above: Result Comment: BELLA GEMENT OF PATIENT CARE PER NURSING PROTOCOL Performed By: #### L 501.080 ####[facility] [address] [place], [address] FINGERSTICK GLU 182 mg/dL High [address] [place] [address] Comment on above: Result Comment: BELLA GEMENT OF PATIENT CARE PER NURSING PROTOCOL Performed By: #### L 501.080 #### [facility] [address] [place], [address] CBC W/Diff, Automatedon 06-25 Anisocytosis Ql (Bld) 1+ Normal [facility] Comment on above: Performed By: #### L 500.2500, L100.0100 #### [facility] [address] [place], [address] Electrocardiogram reportOrde red By: Kevin Joshi on 07-05-2025 EKG study [facility] Cardi[facility] Services [address] [place] [address] 12 Lead EKG 07/03/25 2142 MR#: [id number] Acct: [id number] Name: ITZEL ALONZO Rep #:[id number] : 1950 75 From: Kevin Joshi MD Attending Dr: Dr. Anthony Salgado MD Status: ADM IN Ordering Dr: Steven Tejeda DO Date: 0 07/03/25 Location: MS3 Sex: M AA Admitted: 07/03/25 Test Reason : DYSRHYTHMIA Blood Pressure : */* mmHG Vent. Rate : 112 BPM Atrial Rate : 112 BPM P-R Int : 158 ms QRS Dur : 76 ms QT Int : 334 ms P-R-T Axes : 44 68 61 degrees QTcB Int : 455 ms Sinus tachycardia Nonspecific T wave abnormality Abnormal ECG Confirmed by KEVIN JOSHI MD ([id number]), newspaper or periodical editor JOSE NYE ([id number]) on 07/05/2025 1:12:48 PM Referred By: Confirmed By: KEVIN JOSHI MD 07/05/25 1312 Date _ Kevin Joshi MD CC: POWER BARKER OPERATOR-C Carlene Haji; Dr. Steven Tejeda DO; Dr. Anthony Salgado MD ~ Signed [facility] Other Phone: [id number] 07-05-2025 [facility] Medical Records Department [address] [place] [address] Anesthesia Postop Eval II 07/05/25 0611 MR#: [id number] Acct: [id number] Name: ITZEL ALONZO Rep #: [id number] : 1950 75 From: Kayden Merino MD PCP: SID Haro Status:ADM IN Y Race: AA Location: MS3 [id number] Anesthesia Postop Eval I Sum Postop Eval Completion status Anesthesia document: Postop Eval 1 completed: Yes Anesthesia Postop Eval I Summary Anesthesia Postop Eval I Summary: Anesthesia Postop Eval I: Assessment Summary Airway patent Yes 07/04/25 11:46 COMPREHENSIVE OPHTHALMOLOGIST.JCLI Spontaneous unlabored Yes 07/04/25 11:46 COMPREHENSIVE OPHTHALMOLOGIST.JCLI respirations Mental status Awake 07/04/25 11:46 COMPREHENSIVE OPHTHALMOLOGIST.JCLI nausea No 07/04/25 11:46 COMPREHENSIVE OPHTHALMOLOGIST.JCLI Vomiting No 07/04/25 11:46 COMPREHENSIVE OPHTHALMOLOGIST.JCLI Anesthesia Postop Eval I: Fluid Summary Crystalloid volume administer 500 07/04/25 11:46 COMPREHENSIVE OPHTHALMOLOGIST.JCLI (ml) Colloids volume administered ( ml) Blood Product volume administered (ml) Total IV fluid infused 500 07/04/25 11:46 COMPREHENSIVE OPHTHALMOLOGIST.JCLI Anesthesia Postop Eval I: Summary Notes Anesthesia Complication No 07/04/25 11:46 COMPREHENSIVE OPHTHALMOLOGIST.JCLI Anesthesia Complication Comment: Post-operative progress note Anesthesia: Postop Eval II Evaluation Mental status: Awake Pain Level: 0 nausea: No Vomiting: No 07/05/25 0611 Date Kayden Bernstein Signature: Date CC: Signed Normal [facility] Magnesiumon 07-05-2025 Magnesium [Mass/Vol] 2.0 mg/dL Normal 1.5-2.2 [facility] Comment on above: Performed By: #### L 500.2500, L100.0100 #### [facility] [address] [facility] [place], [place], [address] Magnesium measurement (mass/ volume)Ordered By: Uche Felix on 07-05-2025 Magnesium (Unsp spec) [Mass/Vol] 2.0 mg/dL 1.5-2.2 [facility] Phosphoruson 07-05-2025 Phosphate [Mass/Vol] 3.0 mg/dL Normal 2.7-4.5 [facility] Comment on above: Performed By: #### L 500.2500, L100.0100 #### [facility] [address] [place], [address] BRCon 07-04-2025 RC Normal [facility] Comment on above: Result Comment: [id number] OP RC TRANSFUSED 07/06/25 1234 Performed By: #### L 501.080 #### [facility] [address] [place], [address] Bedside Glucoseon 07-04-2025 FINGERSTICK GLU 208 mg/dL High 74-106 [facility] Comment on above: Result Comment: BELLA GEMENT OF PATIENT CARE PER NURSING PROTOCOL Performed By: #### L 501.080 #### [facility] [address] [place], [address] FINGERSTICK GLU 215 mg/dL High [facility]106 [facility] Comment on above: Result Comment: BELLA GEMENT OF PATIENT CARE PER NURSING PROTOCOL Performed By: #### L 501.080 #### [facility] [address] [place], [address] FINGERSTICK GLU 174 mg/dL High [facility]106 [facility] Comment on above: Result Comment: BELLA GEMENT OF PATIENT CARE PER NURSING PROTOCOL Performed By: #### L 501.080 #### [facility] [address] [place], [address] FINGERSTICK GLU 166 mg/dL High [facility]106 [facility] Comment on above: Result Comment: BELLA GEMENT OF PATIENT CARE PER NURSING PROTOCOL Performed By: #### L 501.080 #### [facility] [address] [place], [address] FINGERSTICK GLU 193 mg/dL High [facility]106 [facility] Comment on above: Result Comment: BELLA GEMENT OF PATIENT CARE PER NURSING PROTOCOL Performed By: #### L 500.2500, L100.0100 #### [facility] [address] [place], [address] Bilirubin, totalOrdered By: Johanne Evans on 07-04-2025 Bilirubin [Mass/Vol] 0.45 mg/dL 0.00-1.30 [facility] CBC W/Diff, Automatedon 06-25 Anisocytosis Ql (Bld) 1+ Normal [facility] Comment on above: Performed By: #### L 500.2500, L100.0100 #### [facility] [address] [place], [address] PLT EST ADEQUATE Normal ADEQ [facility] Comment on above: Performed By: #### L 500.2500, L100.0100 #### [facility] [address] [place], [address] Comprehensive Metabolic Prof ilon 07-04-2024 Albumin [Mass/Vol] 3.1 g/dL Low 3.4-4.8 [facility] Comment on above: Performed By: #### L 500.2500, L100.0100 #### [facility] [address] [place], [address] Albumin/Globulin [Mass ratio] 0.5 {ratio} Low 0.9-2.4 [facility] Comment on above: Performed By: #### L 500.2500, L100.0100 #### [facility] [address] [place], [address] ALK PHOS 124 U/L Normal 40-129 [facility] Comment on above: Performed By: #### L 500.2500, L100.0100 #### [facility] [address] [place], [address] ALT [Catalytic activity/Vol] 9 U/L Normal <=46 [facility] Comment on above: Performed By: #### L 500.2500, L100.0100 #### [facility] [address] [place], [address] AST [Catalytic activity/Vol] 18 U/L Normal <=37 [facility] Comment on above: Performed By: #### L 500.2500, L100.0100 #### [facility] [address] [place], [address] Bilirubin [Mass/Vol] 0.45 mg/dL Normal 0.00-1.30 [facility] Comment on above: Performed By: #### L 500.2500, L100.0100 #### [facility] [address] [place], [address] BUN/CRE 16.4 RATIO Normal 10-20 [facility] Comment on above: Performed By: #### L 500.2500, L100.0100 #### [facility] [address] [place], [address] Calcium [Mass/Vol] 9.2 mg/dL Normal 7.6-11.0 [facility] Comment on above: Performed By: #### L 500.2500, L100.0100 #### [facility] [address] [place], [address] Chloride [Moles/Vol] 103 mmol/L Normal 98-108 [facility] Comment on above: Performed By: #### L 500.2500, L100.0100 #### [facility] [address] [place], [address] CO2 [Moles/Vol] 19.6 mmol/L Low 21.0-32.0 [facility] Comment on above: Performed By: #### L 500.2500, L100.0100 #### [facility] [address] [place], [address] Creatinine [Mass/Vol] 0.78 mg/dL Normal 0.70-1.20 [facility] Comment on above: Performed By: #### L 500.2500, L100.0100 #### [facility] [address] [place], [address] ECRCL 63.55 ml/min Normal 50-250 [facility] Comment on above: Performed By: #### L 500.2500, L100.0100 #### [facility] [address] [place], [address] GAP 12 Normal 5-15 [facility] Comment on above: Performed By: #### L 500.2500, L100.0100 #### [facility] [address] [place], [address] GFR/1.73 sq M.predicted among non-blacks MDRD (S/P/Bld) [Vol rate/Area] 92 mL/min/{1.73_m2} Normal >60 [facility] Comment on above: Result Comment: mL/m in/1.73m2 CKD-EPI Creatinine Equation (2020) Performed By: #### L 500.2500, L100.0100 #### [facility] [address] [place], [address] Globulin (S) [Mass/Vol] 5.8 g/dL High 2.2-4.2 [facility] Comment on above: Performed By: #### L 500.2500, L100.0100 #### [facility] [address] [place], [address] Glucose [Mass/Vol] 174 mg/dL High 70-99 [facility] Comment on above: Performed By: #### L 500.2500, L100.0100 #### [facility] [address] [place], [address] Potassium [Moles/Vol] 4.2 mmol/L Normal 3.3-5.1 [facility] Comment on above: Performed By: #### L 500.2500, L100.0100 #### [facility] [address] [place], [address] Sodium [Moles/Vol] 134 mmol/L Normal 133-145 [facility] Comment on above: Performed By: #### L 500.2500, L100.0100 #### [facility] [address] [place], [address] T PROT 8.9 g/dL High 5.9-8.4 [facility] Comment on above: Performed By: #### L 500.2500, L100.0100 #### [facility] [address] [place], [address] Urea nitrogen [Mass/Vol] 13 mg/dL Normal 4-19 [facility] Comment on above: Performed By: #### L 500.2500, L100.0100 #### [facility] [address] [place], [address] Consultation - Orthopedicson 07-04-2025 Consultation - Orthopedics [facility] Medical Records Department [address] [address] Consultation - Orthopedics 07/04/25 0959 MR#: [id number] Acct: [id number] Name: ITZEL ALONZO Rep #: [id number] : 1950 75 From: Nuno Campbell MD PCP: SID Haro Status:ADM IN [place] [facility] [id number] HPI Consult Data Date of Consult: 07/04/25 HPI Narrative HPI Narrative: ITZEL ALONZO, is a 75 M who presents after sustaining a mechanical fall on July 03, 2025. Patient denies pre-existing right hip pain. He does have a history of lung cancer. To their knowledge she has no metastatic process. Reportedly he does have calcifications in his brain. According to his he falls quite often. He was not able to walk yesterday after falling. He was brought to the hospital diagnosed with a hip fracture. Orthopedics was appropriately consulted. Patient admitted to the medical service. [facility] Medical History CKD (chronic kidney disease), stage II Chronic anemia Cancer of right lung Anxiety and depression GERD (gastroesophageal reflux disease) Cirrhosis Former smoker TIA (transient ischemic attack) Kidney stones Neuropathy PTSD (post-traumatic stress disorder) Hepatitis COPD (chronic obstructive pulmonary disease) Hypertension Diabetes Home Medications ???Medication ???Instructions ???Recorded ???Last Taken ???Type gabapentin 300 mg capsule 300 mg PO TID neuropathy 02/24/15 07/02/25 21:00 History amlodipine 5 mg tablet 10 mg PO QHS blood pressure 07/02/25 21:00 History 10 mg aspirin 81 mg tablet,delayed 81 mg PO DAILY heart health 07/02/25 History release budesonide-formoterol HFA 80 2 puff inhalation BID COPD 1 07/02/25 History mcg-4.5 mcg/actuation aerosol inhaler (Symbicort) cyclobenzaprine 10 mg tablet 10 mg PO TID PRN muscle spasms 07/02/25 History sildenafil 100 mg tablet 100 mg PO DAILY PRN Erectile 05/0907/02/25 History Dysfunction atorvastatin 80 mg tablet 80 mg PO QHS cholesterol #90 tabs 05/12/21 07/02/25 21:00 Rx insulin aspart U-100 100 unit/mL 10 unit subcut TIDCM DM 12/12/24 0 07/02/25 History (3 mL) subcutaneous pen (Novolog FlexPen U-100 Insulin aspart) insulin glargine 100 unit/mL (3 10 unit subcut QPM Dm 05/04/2507/19 History mL) subcutaneous pen (Lantus Solostar U-100 Insulin) magnesium hydroxide 400 mg/5 mL 5 ml PO DAILY PRN constipation 09/1807/02/25 History oral suspension (Gentle Laxative (magnesium hydroxide)) ropinirole 1 mg tablet 1 mg PO QHS rls 05/04/25 07/02/25 History acetaminophen 325 mg tablet 650 mg PO Q4H PRN pain 07/04/25 Un known History albuterol 90 mcg/actuation aerosol 90 mcg inhalation Q4H PRN sob Unknown History inhaler calcium carbonate 1,500 mg PO DAILY supplement 07/0407/02/25 History cyclopentolate 2 % eye drops 1 drp LEFT EYE QHS inflamation 09/1807/02/25 History ferrous sulfate 325 mg (65 mg 325 mg PO .every other day 5 Unknown History iron) tablet (Feosol) supplement lidocaine 5 % topical patch 2 patch topical DAILY PRN pain 09/18 Unknown History melatonin 3 mg tablet 3 mg PO QHS sleep 07/04/25 5 History nicotine 14 mg/24 hr daily 1 patch transdermal DAILY smoking 07/04/25 Unknown History transdermal patch (Nicoderm CQ) cessation oxycodone 5 mg tablet 5 mg PO Q6H PRN pain 07/04/25 08/0 07/19 History pantoprazole 40 mg tablet,delayed 40 mg PO DAILY heart burn 5 07/02/25 History release (Protonix) polyethylene glycol 3350 17 gram 17 g PO DAILY constipation 5 07/02/25 History oral powder packet polyvinyl alcohol-povidone 1.4 1 drp ophthalmic (eye) 4X/DAY dry 07/04/25 07/02/25 History %-0.6 % eye drops eye prednisolone acetate 1 % eye 1 drp LEFT EYE Q6H inflamation 09/1807/02/25 History drops,suspension sennosides 8.6 mg-docusate sodium 2 tab-cap PO DAILY stool softener 07/04/25 06/25/25 History 50 mg tablet (Senna with Docusate Sodium) tiotropium 2.5 mcg-olodaterol 2.5 2 puff inhalation DAILY asthma 07/02/25 History mcg/actuation mist for inhalation Allergy/AdvReac Type Severity Reaction Status Date / Time No Known Allergies Allergy Verified 05/11/25 14:05 Family History Mother CVA (cerebral vascular accident) Family History other Surgical History Hx of appendectomy Social History household members: none housing: apartment Smoking Status: Current some day smoker tobacco type: cigarettes and cigars alcohol intake: ne (more content not included)... Normal [facility] Decalcification bone/plaqueo n 07-04-2025 Decalcification bone/plaque -------- Patient Age/Sex Location Account Attending Physician -------- ITZEL ALONZO 75/M MS3 [id number] Dr. Anthony Salgado MD -------- Specimen: [id number] Received: 07/05/25 Status: CASIE Perez Num: [id number] Spec Type: FEM HEAD Subm Dr: Dr. Nuno Campbell MD HEADER OPERATION: ORIF, hip, Gamma Nail PRE-OP DIAGNOSIS: Closed intertrochanteric fracture of right hip TISSUE SUBMITTED: A- Right femur bone - rule out cancer -------- MICROSCOPIC DIAGNOSIS A. Bone, right femur, ORIF of intertrochanteric fracture of the right hip: * Piece of benign bone, soft tissue, and bone marrow with piece of marrow with fat necrosis and areas with normocellular hematopoietic tissue MICROSCOPIC DESCRIPTION Slides are reviewed. GROSS DESCRIPTION A. Received in formalin labeled with the patient's name and date of . Designated as right femur bone-rule out CA is a 3.9 x 2.6 x 0.6 cm aggregate of red-brown, spongy to firm, irregular portions of bone. Entirely submitted in 3 cassettes, following decalcification. AR 07/05/2025 CPT:97093,[id number] -------- Patient Age/Sex Location Account Attending Physician -------- ITZEL ALONZO 75/M [facility] [id number] Dr. Anthony Salgado MD -------- Signed (signature on file) Dr. Alfredito Sue MD 07/06/25 1606 -------- Normal [facility] Comment on above: Performed By: #### L 500.2500, L100.0100 #### [facility] [address] [place], [address] Ferritinon 07-04-2025 Ferritin [Mass/Vol] 640 ng/mL High 37-417 [facility] Comment on above: Performed By: #### L 500.2500, L100.0100 #### [facility] [address] [place], [address] Hemoglobin A1con 07-04-2025 HbA1c (Bld) [Mass fraction] 8.2 % High <=5.6 [facility] Comment on above: Result Comment: Norm al < 5.7 % Prediabetic 5.7 - 6.4 % Diabetic >or= 6.5 % Please note range changes. Performed By: #### L 500.2500, L100.0100 #### [facility] [address] [place], [address] Hemoglobin A1c percentageOrd ered By: Kayden Merino on 07-04-2025 HbA1c (Bld) [Mass fraction] 8.2 % High <5.7 [facility] Comment on above: Normal < 5.7 % Predi abetic 5.7 - 6.4 % Diabetic >or= 6.5 % Please note range changes. Hip Min 2 Views (Portable)on 07-04-2025 Hip Min 2 Views (Portable) [facility] Imaging Services [address] [place] [address] Hip Min 2 Views (Portable) MR#: [id number] Acct: [id number] Name: CHERIITZEL Carlie Rep #: [id number] : 1950 M 75 From: Yesica Pedroza MD PCP: Carlene Haji POWER BARKER OPERATOR-C Status: ADM IN Study: Hip Min 2 Views (Portable) Date of Exam: 07/04 Exam# [id number] Ordering Dr: Nuno Campbell MD PROCEDURE: HIP MIN 2 VIEWS (PORTABLE) 07/04/2025 REASON FOR EXAM: RT HIP FRACTURE REPAIR TECHNIQUE: HIP MIN 2 VIEWS (PORTABLE) Laterality: COMPARISON: Lower extremity x-ray July 03, 2025. FINDINGS: Bones: Status post surgical correction of right femoral fracture with metallic rods. Joints: No dislocations. Soft tissues: No soft tissue abnormalities. RAD/Hip Min 2 Views (Portable) IMPRESSION: Postsurgical changes for repair of right femoral fracture with no acute complications. Reading Location: [facility] CC: POWER BARKER OPERATOR-C Carlene Haji; Dr. Nuno Campbell MD Electronic Communications Technician: Signed Normal [facility] International normalized rat io (INR) calculationOrdered By: Kayden Merino on 07-04-2025 INR Coag (Bld) [Relative time] 1.3 {INR} [facility] Iron measurement (mass/mass) Ordered By: Johanne Evans on 07-04-2025 Iron (Unsp spec) [Mass/Mass] 17 ug/dL Low 65-175 [facility] Iron+Iron Binding Capacityon 07-04-2025 TIBC 163 ug/dL Low 250-450 [facility] Comment on above: Performed By: #### L 500.2500, L100.0100 #### [facility] Laboratory [address] [facility], [address] Laboratory - Chemistry and C hemistry - challengeOrdered By: Johanne Evans on 07-04-2025 AST [Catalytic activity/Vol] 18 U/L <38 [facility] MR/POSTOP.ANEon 07-04-2025 MR/POSTOP.ANE [facility] Medical Records Department [address] [place] [address] Anesthesia Postop Eval I 07/04/25 1146 MR#: [id number] Acct: [id number] Name: ITZEL ALONZO Rep #: [id number] : 1950 75 From: Kye Luu CRNA PCP: Carlene Haji, POWER BARKER OPERATOR-C Status:ADM IN Y Race: AA Location: IA3 [id number] Anesthesia: Postop Eval I Current Vital Signs Temperature: 96.8 F Pulse Rate: 78 Blood Pressure: 105/78 Respiratory Rate: 18 Pulse Ox: 97 Oxygen Delivery Method: Room Air Assessment Airway patent: Yes Spontaneous unlabored respirations: Yes Mental status: Awake nausea: No Vomiting: No Anesthesia Complication: No Fluid Hydration Crystalloid volume administer (ml): 500 Total IV fluid infused: 500 Progress Note Anesthesia document: Postop Eval 1 completed: Yes 07/04/25 1146 Date Kye Bell CHRISTIANSEN Cosigner Signature: Date CC: Signed Normal [facility] No Panel InformationOrdered By: Johanne Evans on 07-04-2025 Unsaturated Iron Binding Capacity 146 ug/dL Low 228-428 [facility] Operative Reporton Operative Report [facility] Medical Records Department [address] [place] [address] Operative Report 07/04/25 1129 MR#: [id number] Acct: [id number] Name: ITZEL ALONZO Rep #: [id number] : 1950 75 From: Nuno Campbell MD PCP: Carlene Haji POWER BARKER OPERATOR-C Status:ADM IN Location: [place] [address] Problems Associated Problem List Diagnoses (1) Closed intertrochanteric fracture of right hip: Operative Report (Standard) Operative Information Date of Procedure: 07/04/25 Pre-Operative Diagnosis: Right hip intertrochanteric fracture Post-Operative Diagnosis: Same Surgery/Procedure Performed: Open reduction internal fixation right hip, long gamma nail real estate listing consultant: Yes Farm Equipment Maintenance Supervisor: Silvia Butler Tasks completed by assignment desk assistant: Closing and Implanting device Additional assistant boys track coach?: No Type of Anesthesia: Spinal RN Documented Start/Stop Times: Operation Date: 07/04/25 12:00 Case Time Into Pre-Op 07/04/25 09:46 Out of Pre-Op 07/04/25 10:21 Anesthesia Start 07/04/25 10:22 Into Room 07/04/25 10:22 Procedure Start 07/04/25 10:46 Procedure Start Time: 10:46 Procedure Stop Time: 11:40 Select all DRAINS/GRAFTS/IMPLANT S that apply: None Special Medications: Ancef 2 g, Tranexamic acid 1 g IV Estimated Blood Loss: 50 Fluids Replaced: 500 Specimen collected: Yes Description of specimen(s) removed: Bone reamings from right femur Description of surgery: Preoperative diagnosis: Right hip displaced intertrochanteric fracture Postoperative diagnosis: Same Title of operation: Right hip open reduction internal fixation, intramedullary nail fixation, locked Surgeon: Dr. Nuno Campbell Dealer Card Room: Silvia Butler PA-C Anesthesia: spinal Medications: Ancef Indications for surgery: Patient is an 75-year-old male sustained a hip fracture yesterday at home. Patient and their family explained diagnosis and treatment options. Patient evaluated by the medical services. Patient did wish to have surgery. Appropriate informed consent obtained and signed. Findings: Patient had a displaced intertrochanteric hip fracture. They underwent standard reduction, internal fixation using a Rosalva long gamma 3 nail. Nail size was 11 mm x 420. 125 degree neck angle. Proximal cross lock screw was 110. Distal cross lock screw was 42.5. X-rays taken throughout. operational assistant, physician assistant boys track coach, was utilized throughout the entire procedure. They were vital to the procedure from beginning to end. They help with patient transfer, patient padding and positioning, fracture reduction, maintenance of fracture reduction, internal fixation of implants, wound closure, bandage application, patient transfer. Without certified surgical technologist, surgical time would have been significantly increased and surgical outcome could have been less optimal. Procedure: Patient was taken to the operating room. Placed under a general anesthetic and transferred to the operating table with the help of the assistant boys track coach. With the help of the assistant boys track coach patient was prepped and padded for surgery. Left foot was well-padded and placed in the traction boot. Right lower extremity was abducted and flexed out of harm's way. JACQUELINE hose and SCDs utilized. Fluoroscopy was brought in. With the help of the assistant boys track coach and manipulation of the limb, reduction was nicely obtained as verified under AP lateral and oblique fluoroscopic images. Reduction was improved with anterior to posterior pressure on the fracture site. Left hip was prepped padded draped in usual orthopedic sterile fashion for the procedure. Longitudinal incision was made just proximal to the greater trochanter. Taken through skin and subcutaneous tissue. Sharp awl was placed on the tip of the greater trochanter. Position verified under AP and lateral fluoroscopic images. This was then taken down inside the bone. Slightly bent ball-tipped guide alissa was then placed from the tip of the greater trochanter into the intra-medullary canal of the femur. Its position verified radiographically. Guide alissa was verified to be just above the patella on the AP and lateral x-rays of the knee. We measured the length of the guide alissa within the bone. Short reamer was then done over the tip of this with the help of the assistant boys track coach holding the soft tissue protector appropriately. Long reaming was done starting and reaming up to 12.5 mm distally. Was then with the help of the assistant boys track coach . once reaming was done we placed the short 125??? angle device over the guidepin. This was easily introduced. Guide alissa removed. Outrigger device was utilized to position a guidepin from the lateral cortex of the femur across the fracture site and into the femoral head in a good position centrally, as noted on AP lateral and oblique fluoroscopic images. This was measured. Appropriate reaming done. Appropriate length lag screw was red (more content not included)... Normal [facility] Prothrombin Time w/INRon INR Coag (PPP) [Relative time] 1.3 {INR} Normal [facility] Comment on above: Performed By: #### L 501.080 #### [facility] Laboratory [address] [place], [place], [id number] PT Coag (PPP) [Time] 16.4 s High 11.7-14.9 [facility] Comment on above: Performed By: #### L 501.080 #### [facility] Laboratory [address] [place], [place], [id number] ([phone]) Prothrombin timeOrdered By: Kayden Merino on 07-04-2025 PT Coag (PPP) [Time] 16.4 s High 11.7-14.9 [facility] Serum globulin measurementOr dered By: Johanne Evans on 07-04-2025 Globulin (S) [Mass/Vol] 5.8 g/dL High 2.2-4.2 [facility] Serum or plasma alanine stahl otransferase (ALT) measurementOrdered By: Johanne Evans on 07-04-2025 ALT [Catalytic activity/Vol] 9 U/L <47 [facility] Serum or plasma albumin ivania urement (mass/volume)Ordered By: Johanne Evans on 07-04-2025 Albumin [Mass/Vol] 3.1 g/dL Low 3.4-4.8 [facility] Serum or plasma albumin/glob ulin mass ratioOrdered By: Johanne Evans on 07-04-2025 Albumin/Globulin [Mass ratio] 0.5 {ratio} Low 0.9-2.4 [facility] Serum or plasma alkaline brittany sphatase measurementOrdered By: Johanne Evans on 07-04-2025 ALP [Catalytic activity/Vol] 124 U/L 40-129 [facility] Serum or plasma ferritin shari surement (mass/volume)Ordered By: Johanne Evans on 07-04-2025 Ferritin [Mass/Vol] 640 ng/mL High 37-417 [facility] Serum or plasma iron saturat ion measurement (mass fraction)Ordered By: Johanne Evans on 07-04-2025 Iron saturation [Mass fraction] 10.4 % 9-55 [facility] Comment on above: Previous reported re sult: 11.0 %Edited by: NOY on 07/04/25:0703 AMENDED REPORT 07/04/25 0703 IRON SATURATION previously reported as: 11.0 % Total proteinOrdered By: Alfonso Evans on 07-04-2025 Protein [Mass/Vol] 8.9 g/dL High 5.9-8.4 [facility] Type AND Screenon 07-04-2025 Ab SCREEN GEL Negative Normal [facility] Comment on above: Order Comment: [id number] HIP Performed By: #### L 501.080 #### [facility] Laboratory [address] [place], [address] ABO and Rh group Nom (Bld) Blood group O Rh(D) positive Normal [facility] Comment on above: Order Comment: [id number] HIP Performed By: #### L 501.080 #### [facility] Laboratory [address] [place], [address] A1 CELL Not performed Normal [facility] Comment on above: Order Comment: S Result Comment: This specimen has been REJECTED due to Laboratory criteria: Quanity Not Sufficient. Autumn Shen has been notified of need of recollection. 07/04/25646 Shant L White Performed By: #### L 500.2500, L100.0100 #### [facility] Laboratory [address] [place], [address] Ab SCREEN GEL Not performed Normal [facility] Comment on above: Order Comment: S Result Comment: This specimen has been REJECTED due to Laboratory criteria: Quanity Not Sufficient. Autumn Shen has been notified of need of recollection. 07/04/25646 Shant L White Performed By: #### L 500.2500, L100.0100 #### [facility] Laboratory [address] [place], [address] ABO and Rh group Nom (Bld) Test Not Performed Normal [facility] Comment on above: Order Comment: S Result Comment: This specimen has been REJECTED due to Laboratory criteria: Quanity Not Sufficient. Autumn Shen has been notified of need of recollection. 07/04/25646 Shant L White Performed By: #### L 500.2500, L100.0100 #### [facility] Laboratory [address] [place], [address] ANTI A Not performed Normal [facility] Comment on above: Order Comment: S Result Comment: This specimen has been REJECTED due to Laboratory criteria: Quanity Not Sufficient. Autumn Shen has been notified of need of recollection. 07/04/25646 Shant L White Performed By: #### L 500.2500, L100.0100 #### [facility] Laboratory [address] [place], [address] ANTI B Not performed Normal [facility] Comment on above: Order Comment: S Result Comment: This specimen has been REJECTED due to Laboratory criteria: Quanity Not Sufficient. Autumn Shen has been notified of need of recollection. 07/04/25 0647 Shant Jordan White Performed By: #### L 500.2500, L100.0100 #### [facility] Laboratory [address] [place], [address] ANTI D Not performed Normal [facility] Comment on above: Order Comment: S Result Comment: This specimen has been REJECTED due to Laboratory criteria: Quanity Not Sufficient. Autumn Shen has been notified of need of recollection. 07/04/25 0647 Shant Jordan White Performed By: #### L 500.2500, L100.0100 #### [facility] Laboratory [address] [place], [address] B CELLS Not performed Normal [facility] Comment on above: Order Comment: S Result Comment: This specimen has been REJECTED due to Laboratory criteria: Quanity Not Sufficient. Autumn Shen has been notified of need of recollection. 07/04/25 0647 Shant Jordan White Performed By: #### L 500.2500, L100.0100 #### [facility] Laboratory [address] [place], [address] 12 Lead EKGon 07-03-2025 12 Lead EKG [facility] Cardiovascular Services [address] [place] [address] 12 Lead EKG 07/03/25 2142 MR#: [id number] Acct: [id number] Name: ITZEL ALONZO Rep #: [id number] : 1950 75 From: Kevin Joshi MD Attending Dr: Dr. Anthony Salgado MD Status: ADM IN Ordering Dr: Steven Tejeda DO Date: 07/03/25 Location: [facility]3 Sex: M AA Admitted: 07/03/25 Test Reason : DYSRHYTHMIA Blood Pressure : */* mmHG Vent. Rate : 112 BPM Atrial Rate : 112 BPM P-R Int : 158 ms QRS Dur : 76 ms QT Int : 334 ms P-R-T Axes : 44 68 61 degrees QTcB Int : 455 ms Sinus tachycardia Nonspecific T wave abnormality Abnormal ECG Confirmed by KEVIN JOSHI MD ([id number]), newspaper or periodical editor JOSE NYE ([id number]) on 07/05/2025 1:12:48 PM Referred By: Confirmed By: KEVIN JOSHI MD 07/05/25 1312 Date Kevin Joshi MD CC: SID Haji; Dr. Steven Tejeda, DO; Dr. Anthony Salgado MD Signed Normal [facility] Absolute lymphocyte countOrd ered By: Steven Tejeda on 07-03-2025 Lymphocytes Auto (Unsp spec) [#/Vol] 0.80 10*3/uL Low 0.83-4.51 [facility] Absolute neutrophil countOrd ered By: Steven Tejeda on 07-03-2025 Neutrophils (Bld) [#/Vol] 11.4 10*3/uL High 2.0-7.7 [facility] Activated partial thrombopla stin time (aPTT) in platelet poor plasma by coagulation aOrdered By: Steven Tejeda on 07-03-2025 aPTT Coag (PPP) [Time] 22.7 s Low 24.1-36.2 [facility] Anion gap in Serum or Plasma Ordered By: Steven Tejeda on 07-03-2025 Anion gap [Moles/Vol] 13 mmol/L 5-15 [facility] Automated lymphocyte count a s percentage of total leukocytesOrdered By: Steven Tejeda on 07-03-2025 Lymphocytes/100 WBC Auto (Unsp spec) 6.3 % Low 19-41 [facility] BUN/creatinine ratioOrdered By: Steven Tejeda on 07-03-2025 Urea nitrogen/Creatinine [Mass ratio] 16.8 mg/mg 10- [facility] Basic Metabolic Profile (BMP )on 07-03-2025 BUN/CRE 16.8 RATIO Normal - [facility] Comment on above: Performed By: #### L 300.3900, L300.4310, L100.0100, L500.2500 ####[facility] [address] [place], [address] Calcium [Mass/Vol] 9.7 mg/dL Normal 7.6-11.0 [facility] Comment on above: Performed By: #### L 300.3900, L300.4310, L100.0100, L500.2500 ####[facility] [address] [place], [address] Chloride [Moles/Vol] 100 mmol/L Normal 98-108 [facility] Comment on above: Performed By: #### L 300.3900, L300.4310, L100.0100, L500.2500 ####[facility] [address] [place], [address] CO2 [Moles/Vol] 20.2 mmol/L Low 21.0-32.0 [facility] Comment on above: Performed By: #### L 300.3900, L300.4310, L100.0100, L500.2500 ####[facility] [address] [place], [address] Creatinine [Mass/Vol] 0.86 mg/dL Normal 0.70-1.20 [facility] Comment on above: Performed By: #### L 300.3900, L300.4310, L100.0100, L500.2500 ####[facility] [address] [place], [address] ECRCL 66.03 ml/min Normal 50-250 [facility] Comment on above: Performed By: #### L 300.3900, L300.4310, L100.0100, L500.2500 ####[facility] [address] [place], [address] GAP 13 Normal 5-15 [facility] Comment on above: Performed By: #### L 300.3900, L300.4310, L100.0100, L500.2500 ####[facility] [address] [place], [address] GFR/1.73 sq M.predicted among non-blacks MDRD (S/P/Bld) [Vol rate/Area] 89 mL/min/{1.73_m2} Normal >60 [facility] Comment on above: Result Comment: mL/m in/1.73m2 CKD-EPI Creatinine Equation (2020) Performed By: #### L 300.3900, L300.4310, L100.0100, L500.2500 ####[facility] [address] [place], [address] Glucose [Mass/Vol] 204 mg/dL High 70-99 [facility] Comment on above: Performed By: #### L 300.3900, L300.4310, L100.0100, L500.2500 ####[facility] [address] [place], [address] Potassium [Moles/Vol] 4.8 mmol/L Normal 3.3-5.1 [facility] Comment on above: Performed By: #### L 300.3900, L300.4310, L100.0100, L500.2500 ####[facility] [address] [place], [address] Sodium [Moles/Vol] 133 mmol/L Normal 133-145 [facility] Comment on above: Performed By: #### L 300.3900, L300.4310, L100.0100, L500.2500 ####[facility] [address] [place], [address] Urea nitrogen [Mass/Vol] 14 mg/dL Normal 4-19 [facility] Comment on above: Performed By: #### L 300.3900, L300.4310, L100.0100, L500.2500 ####[facility] [address] [place], [address] Basophil percentageOrdered B y: Steven Tejeda on 07-03-2025 Basophils/100 WBC (Bld) 0.2 % 0-1 [facility] Bilirubin Test strip Ql (U)O rdered By: Steven Tejeda on 07-03-2025 Bilirubin Ql (U) Negative Negative [facility] Blood manual differential co mment interpretation (narrative result)Ordered By: Steven Tejeda on 07-03-2025 Manual differential comment Refugio (Bld) [Interp] SCANNED [facility] CBC W/Diff, Automatedon 08-0 OTHER CELLS RARE Normal [facility] Comment on above: Result Comment: FRAG MENTED CELLS Performed By: #### L 300.3900, L300.4310, L100.0100, L500.2500 ####[facility] [address] [place], [address] Anisocytosis Ql (Bld) 1+ Normal [facility] Comment on above: Performed By: #### L 300.3900, L300.4310, L100.0100, L500.2500 ####[facility] [address] [place], [address] ALLYSON CELLS RARE Normal [facility] Comment on above: Performed By: #### L 300.3900, L300.4310, L100.0100, L500.2500 ####[facility] [address] [place], [address] HYPOCHROMASIA 1+ Normal [facility] Comment on above: Performed By: #### L 300.3900, L300.4310, L100.0100, L500.2500 ####[facility] [address] [place], [address] MICROCYTIC 1+ Normal [facility] Comment on above: Performed By: #### L 300.3900, L300.4310, L100.0100, L500.2500 ####[facility] [address] [place], [address] SMEAR COMMENT SCANNED Normal [facility] Comment on above: Performed By: #### L 300.3900, L300.4310, L100.0100, L500.2500 ####[facility] [address] [place], [place], [address] Carbon dioxide, total [Moles /volume] in Central venous bloodOrdered By: Steven Tejeda on 07-03-2025 CO2 [Moles/Vol] 20.2 mmol/L Low 21.0-32.0 [facility] Chloride assayOrdered By: Emil Tejeda on 07-03-2025 Chloride [Moles/Vol] 100 mmol/L 98-108 [facility] Crenated erythrocyte detecti on by light microscopyOrdered By: Steven Tejeda on 07-03-2025 Marshall cells LM Ql (Bld) RARE [facility] Emergency Department Summary on 07-03-2025 Emergency Department Summary [facility] Medical Records Department [address] [place] [address] Emergency Department Summary 07/03/25 MR#: [id number] Acct: [id number] Name: ITZEL ALONZO Rep #: [id number] : 1950 75 From: Steven Tejeda DO PCP: Carlene Haji POWER BARKER OPERATOR-C Status:ADM IN [facility] H[facility] History of Present Illness HPI Narrative: Patient presents with right hip pain that began after a fall. Patient fell onto his right hip. Patient states the pain is worse with any movement. Patient describes the pain as sharp. Patient states he was unable to stand or ambulate after the fall. Patient denies any paresthesias or weakness. Patient denies any head injury or loss of consciousness. Patient denies any other injuries. Chief Complaint: Lower Extremity Injury Informant: patient Onset/Context/Timing Onset: Today Context: Sudden Onset Timing: Continuous Quality of Pain: Sharp Location: Right hip Worsened by: Movement Relieved by: Nothing Associated Symptoms Associated Symptoms: Negative for Parasthesia, Weakness or Loss of Funtion [facility] Medical History (Updated 07/03/25 @ 23:[address] Johanne Evans MD) CKD (chronic kidney disease), stage II Chronic anemia Cancer of right lung Anxiety and depression GERD (gastroesophageal reflux disease) Cirrhosis Former smoker TIA (transient ischemic attack) Kidney stones Neuropathy PTSD (post-traumatic stress disorder) Hepatitis COPD (chronic obstructive pulmonary disease) Hypertension Diabetes Home Medications ???Medication ???Instructions ???Recorded ???Last Taken ???Type gabapentin 300 mg capsule 300 mg PO TID neuropathy 02/24/15 Unknown History amlodipine 5 mg tablet 5 mg PO QHS blood pressure 1 Unknown History aspirin 81 mg tablet,delayed 81 mg PO DAILY heart health Unknown History release budesonide-formoterol HFA 80 2 puff inhalation BID COPD [...] Surgical History Hx of appendectomy Social History (Updated 07/03/25 @ 23:[address] Johanne Evans MD) household members: none housing: apartment Smoking Status: Current some day smoker tobacco type: cigarettes and cigars alcohol intake: never substance use type: does not use ROS ROS ED Constitutional Constitutional ED: Denies chills or fever(s) Eyes Eyes: Denies blurry vision or change in vision ENT ENT ED: Denies rhinorrhea or sore throat Cardiovascular Cardiovascular: Denies chest pain or palpitations Respiratory/Chest Respiratory/Chest: Reports cough; Denies dyspnea Gastrointestinal Gastrointestinal: Denies nausea or vomiting Genitourinary Genitourinary ED: Denies dysuria or hematuria Musculoskeletal Musculoskeletal: Reports back pain; Denies neck pain Integumentary Denies abscess or rash Neurologic Neurologic: Denies headache(s) or weakness Allergic/Immunologic Allergic/Immunologic ED: Denies mouth swelling or urticaria EXAM Physical Exam Const Vital Signs: 07/03/25 19:10 07/03/25 21:09 Temperature 98.7 F Temperature Source Oral Pulse Rate 113 H 116 H Respiratory Rate 18 20 H Blood Pressure 185/93 H 160/98 H Blood Pressure Mean 123 118 Pulse Ox 95 93 Oxygen Delivery Method Room Air Room Air Positive well nourished and well developed Constitutional Narrative: BMI is 18.9. General Appearance ED: well developed and NAD HEENT Reports moist mucous membranes Resp normal respiratory effort and clear to auscultation bilaterally Cardio regular rhythm Rate: tachycardic GI non-tender Palpation: soft Extremity Extremity Narrative: There is shortening sternal rotation of the right lower extrem (more content not included)... Normal [facility] Eosinophil percentageOrdered By: Steven Tejeda on 07-03-2025 Eosinophils/100 WBC (Bld) 0.1 % 0-5 [facility] Erythrocyte distribution wid th ratioOrdered By: Steven Teejda on 07-03-2025 Erythrocyte distribution width (RBC) [Ratio] 22.6 % High 11.6-14.6 [facility] Erythrocyte distribution wid th standard deviationOrdered By: Steven Tejeda on 07-03-2025 Erythrocyte distribution width (RBC) [Ratio] 56.9 fl High 35.1-43.9 [facility] Erythrocyte morphology asses smentOrdered By: Steven Tejeda on 07-03-2025 RBC morphology finding Nom (Bld) RARE [facility] Comment on above: FRAGMENTED CELLS Extremity Lower without Cont raon 07-03-2025 Extremity Lower without Contra [facility] Imaging Services [address] [place] [address] Extremity Lower without Contra MR#: [id number] Acct: [id number] Name: ITZEL ALONZO Rep #: [id number] : 1950 M 75 From: Radha Garcia nd, MD PCP: Carlene Haji, POWER BARKER OPERATOR-C Status: REG ER Study: Extremity Lower without Contra Date of Exam: 0 07/03/25 Exam# [id number] Ordering Dr: Nuno Campbell MD PROCEDURE: EXTREMITY LOWER WITHOUT CONTRA 07/03/2025 REASON FOR EXAM: R/O MALIGNANCY TECHNIQUE: EXTREMITY LOWER WITHOUT CONTRA Coronal and Sagittal reconstruction series were provided. One or more dose reduction techniques were used (e.g., Automated exposure control, adjustment of the mA and/or kV according to patient size, use of iterative reconstruction technique). RADIATION DOSE SUMMARY: DLP: 400 mGycm COMPARISON: Right hip radiographs earlier same day. FINDINGS: Bones: Acute, moderately comminuted and impacted intertrochanteric right proximal femoral fracture. Bone island within the right iliac crest and right femoral head. No aggressive osseous lesions. Joints: Degenerative changes are present. No intra-articular fracture extension. Arthrosis of the right SI joint and pubic symphysis. Soft Tissues: No large soft tissue swelling or hematoma. Distention of the urinary bladder. CT/Extremity Lower without Contra IMPRESSION: Acute, moderately comminuted and impacted right intertrochanteric femoral fracture. No aggressive osseous lesions. Reading Location: [id number] CC: POWER BARKER OPERATOR-C Carlene Haji; Dr. Nuno Campbell MD Electronic Communications Technician: Signed Normal [facility] Glomerular filtration rate ( GFR) estimation/1.73 sq m using serum, plasma, or whole bOrdered By: Steven Tejeda on 07-03-2025 GFR/1.73 sq M.predicted among non-blacks MDRD (S/P/Bld) [Vol rate/Area] 89 mL/min/{1.73_m2} >60 [facility] Comment on above: mL/min/1.73m2 CKD-EP I Creatinine Equation (2020) H AND P Exam - [facility] 07-03-2025 H&P Exam - Hospitalist [facility] Medical Records Department [address] [place] [address] H P Exam - Hospitalist 07/03/257 MR#: [id number] Acct: [id number] Name: ITZEL ALONZO Rep #: [id number] : 1950 75 From: Johanne Evans MD PCP: Carlene Haji, POWER BARKER OPERATOR-C Status:ADM IN [place] [facility] [id number] HPI - General General Date of Admission: 07/03/25 Date of Service: 07/03/25 Chief Complaint: Fall, R hip pain. 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, Diabetes mellitus type II with chronic neuropathy, Anxiety and Depression, GERD, Hx CVA, Chronic anemia, Former tobacco use, COPD, recent transfer to the OR from [facility] on 05/13/25 following large right-sided lung cancer wit suspected postobstructive pneumonia with acute metabolic encephalopathy suspected secondary to hypercalcemia of malignancy in addition to acute on chronic anemia with suspected upper GI bleed for further evaluation who now presents to the [facility] ED on 07/03/2025 with onset of right hip discomfort reportedly following a fall onto the right hip with pain worse with any movement described as sharp, stabbing with inability to ambulate or stand/bear weight with no associated paresthesias nor any head trauma or loss of consciousness but given ongoing pain prompted ED evaluation. Prior to ED arrival patient reported pain 10 out of 10 to the right hip and upon hospitalist evaluation following ED intervention reported pain decreased to 6-7 out of 10 in severity. Workup in the ED included T98.7, heart rate 113, BP 185/93, respiratory rate 18, 95% on room air, plain film of the right hip and pelvis with a fracture the right greater trochanter extending into the intertrochanteric line with malignancy unable to be excluded, CT right hip and pelvis with acute moderately commuted and impacted right intertrochanteric femoral fracture with no aggressive osseous lesions identified, CBC with WBC 12.7, hemoglobin 8.4, MCV 70.6, platelet 300 with left shift and lymphopenia, coags with PT 15.5, INR 1.2, PTT 22.7, BMP carbon dioxide 20.2, BUN/creatinine 14/0.86, GFR 89, glucose 204, urinalysis unremarkable, EKG with ST with nonspecific ST-T changes with no acute evidence of ischemia. In the ED patient ministered 1 L normal saline, morphine 4 mg IV x 1. ED discussed case with orthopedic surgeon Dr. Campbell who recommended CT and if there is no evidence of acute osseous lesion would plan to admit to [facility] and evaluate for repair of hip fracture. [facility] Medical History (Updated 07/03/25 @ 23:[address] Johanne Evans MD) CKD (chronic kidney disease), stage II Chronic anemia Cancer of right lung Anxiety and depression GERD (gastroesophageal reflux disease) Cirrhosis Former smoker TIA (transient ischemic attack) Kidney stones Neuropathy PTSD (post-traumatic stress disorder) Hepatitis COPD (chronic obstructive pulmonary disease) Hypertension Diabetes Home Medications ???Medication ???Instructions ???Recorded ???Last Taken ???Type gabapentin 300 mg capsule 300 mg PO TID neuropathy 02/24/15 Unknown History amlodipine 5 mg tablet 5 mg PO QHS blood pressure 1 Unknown History aspirin 81 mg tablet,delayed 81 mg PO DAILY heart health Unknown History release budesonide-formoterol HFA 80 2 puff inhalation BID COPD [...] Family History Mother CVA (cerebral vascular accident) other (Patient reports not knowing his paternal or paternal family history.) Surgical History Hx of appendectomy Social History (Updated 07/03/25 @ 23:[address] Johanne Evans MD) household members: none housing: apartment Smoking Status: Current some day smoke (more content not included)... Normal [facility] HIP, UNI W/ Pelvis 2-3 Views on 07-03-2025 HIP, UNI W/ Pelvis 2-3 Views [facility] Imaging Services [address] [place] [address] HIP, UNI W/ Pelvis 2-3 Views MR#: [id number] Acct: [id number] Name: ITZEL ALONZO Rep #: [id number] : 1950 M 75 From: Radha Garcia nd, MD PCP: LUIS MIGUEL HaroC Status: REG ER Study: HIP, UNI W/ Pelvis 2-3 Views Date of Exam: 08/19 Exam# [id number] Ordering Dr: Steven Tejeda DO PROCEDURE: HIP, UNI W/ PELVIS 2-3 VIEWS 07/03/2025 REASON FOR EXAM: INJURY/PAIN TECHNIQUE: HIP, UNI W/ PELVIS 2-3 VIEWS Laterality: Right COMPARISON: CT abdomen pelvis 05/2024. FINDINGS: Bones: Diffuse osseous demineralization. Cortical irregularity along the right greater trochanter, extending across the intertrochanteric line. Joints: Normal alignment. Moderate degenerative changes. Soft tissues: Soft tissues are unremarkable. Other: The visualized bowel loops are nondilated. Pelvic phleboliths. RAD/HIP, UNI W/ Pelvis 2-3 Views IMPRESSION: Fracture of the right greater trochanter, extending into the intertrochanteric line. Malignancy can not be excluded. Reading Location: [facility] CC: SID Haji; Dr. Steven Tejeda, DO Electronic Communications Technician: Signed Normal [facility] Hematocrit Auto (Bld) [Volum e fraction]Ordered By: Steven Tejeda on 07-03-2025 Hematocrit (Bld) [Volume fraction] 27.9 % Low 40-54 [facility] Hemoglobin measurementOrdere d By: Steven Tejeda on 07-03-2025 Hemoglobin (Bld) [Mass/Vol] 8.4 g/dL Low 13.0-16.5 [facility] Hyaline casts LM.LPF (Urine sed) [#/Area]Ordered By: Steven Tejeda on 07-03-2025 Hyaline casts (Urine sed) [#/Area] 0 /[LPF] 0-5 [facility] Hypochromatic red blood cell detectionOrdered By: Steven Tejeda on 07-03-2025 Hypochromia Ql (Bld) 1+ [facility] Immature granulocytes/100 WB C Auto (Bld)Ordered By: Steven Tejeda on 07-03-2025 Immature granulocytes/100 WBC (Bld) 0.500 % 0.0-0.9 [facility] Comment on above: IG% - Immature Granu locytes (promyelocytes, myelocytes and metamyelocytes) > 1% indicates that a LEFT SHIFT is Present. International normalized rat io (INR) calculationOrdered By: Steven Tejeda on 07-03-2025 INR Coag (Bld) [Relative time] 1.2 {INR} [facility] Ketones Test strip Ql (U)Ord ered By: Steven Tejeda on 07-03-2025 Ketones Ql (U) Negative Negative [facility] Laboratory - Hematology and Cell countsOrdered By: Steven Tejeda on 07-03-2025 Anisocytosis Ql (Bld) 1+ [facility] MCV (mean corpuscular volume ) determinationOrdered By: Steven Tejeda on 07-03-2025 MCV (RBC) [Entitic vol] 70.6 fL Low 80-94 [facility] Magnesiumon 07-03-2025 Magnesium [Mass/Vol] 1.9 mg/dL Normal 1.5-2.2 [facility] Comment on above: Order Comment: Comme nts: May add to ED labsComments: may add to ED labs Performed By: #### L 501.080 #### [facility] Laboratory [address] [place], [address] Mean corpuscular hemoglobin (MCH) determinationOrdered By: Steven Tejeda on 07-03-2025 MCH (RBC) [Entitic mass] 21.3 pg Low 27.0-32.0 [facility] Mean corpuscular hemoglobin concentration (MCHC) determinationOrdered By: Steven Tejeda on 07-03-2025 MCHC (RBC) [Mass/Vol] 30.1 g/dL Low 32-36 [facility] Mean platelet volume determi nationOrdered By: Steven Tejeda on 07-03-2025 Platelet mean volume (Bld) [Entitic vol] 9.1 fL 6.2-12.0 [facility] Microscopic analysis of urin e for red blood cells (RBC)Ordered By: Steven Tejeda on 07-03-2025 Microscopic analysis of urine for red blood cells (RBC) 0-5 SEEN /hpf 0-5 [facility] Monocyte percentageOrdered B y: Steven Tejeda on 07-03-2025 Monocytes/100 WBC (Bld) 2.8 % 0-10 [facility] Mucus LM Ql (Urine sed)Order ed By: Steven Tejeda on 07-03-2025 Mucus Ql (Urine sed) 0 SEEN /hpf [facility] Natriuretic peptide.B prohor paul N-Terminal [Mass/volume] in Serum or PlasmaOrdered By: Johanne Evans on 07-03-2025 Natriuretic peptide.B prohormone N-Terminal [Mass/Vol] 372 pg/mL <1800 [facility] Comment on above: Heart Failure Unlike ly: < 300 pg/mLHeart Failure Likely< 50 Years: > 450 pg/mL50-75 Years: > 900 pg/mL>75 Years: > 1800 pg/mL Neutrophil percentageOrdered By: Steven Tejeda on 07-03-2025 Neutrophils/100 WBC (Bld) 90.1 % High 47-70 [facility] Nitrite Test strip Ql (U)Ord ered By: Steven Tejeda on 07-03-2025 Nitrite Ql (U) Negative Negative [facility] Nucleated red blood cell per centageOrdered By: Steven Tejeda on 07-03-2025 Nucleated RBC/100 WBC (Bld) [Ratio] 0 % 0-5 [facility] Partial Thromboplast Timeon 07-03-2025 aPTT Coag (Bld) [Time] 22.7 s Low 24.1-36.2 [facility] Comment on above: Performed By: #### L 300.3900, L300.4310, L100.0100, L500.2500 ####[facility] [address] [place], [address] Phosphoruson 07-03-2025 Phosphate [Mass/Vol] 2.5 mg/dL Low 2.7-4.5 [facility] Comment on above: Order Comment: Comme nts: May add to ED labsComments: may add to ED labs Performed By: #### L 501.080 #### [facility] [address] [place], [address] Platelet countOrdered By: Emil Tejeda on 07-03-2025 Platelets (Bld) [#/Vol] 300 10*3/uL 150-450 [facility] Potassium measurement (mass/ volume)Ordered By: Steven Tejeda on 07-03-2025 Potassium (Unsp spec) [Mass/Vol] 4.8 mmol/L 3.3-5.1 [facility] Pro- Brain NATRIURETIC PEPTI Rodri 07-03-2025 Natriuretic peptide B (Bld) [Mass/Vol] 372 pg/mL Normal <=1800 [facility] Comment on above: Order Comment: Comme nts: May add to ED labsComments: may add to ED labs Result Comment: Hear t Failure Unlikely: < 300 pg/mL Heart Failure Likely < 50 Years: > 450 pg/mL 50-75 Years: > 900 pg/mL >75 Years: > 1800 pg/mL Performed By: #### L 501.080 #### [facility] [address] [place], [place], [address] Protein Test strip Ql (U)Ord ered By: Steven Tejeda on 07-03-2025 Protein Ql (U) 100 mg/dl High Negative [facility] Prothrombin Time w/INRon INR Coag (PPP) [Relative time] 1.2 {INR} Normal [facility] Comment on above: Performed By: #### L 300.3900, L300.4310, L100.0100, L500.2500 ####[facility] [address] [place], [address] PT Coag (PPP) [Time] 15.5 s High 11.7-14.9 [facility] Comment on above: Performed By: #### L 300.3900, L300.4310, L100.0100, L500.2500 ####[facility] [address] [place], [address] Prothrombin timeOrdered By: Steven Tejeda on 07-03-2025 PT Coag (PPP) [Time] 15.5 s High 11.7-14.9 [facility] RBC Auto (Bld) [#/Vol]Ordere d By: Steven Tejeda on 07-03-2025 RBC (Bld) [#/Vol] 3.95 10*6/uL Low 4.6-6.2 [facility] Serum creatinine measurement (mass/volume)Ordered By: Steven Tejeda on 07-03-2025 Creatinine [Mass/Vol] 0.86 mg/dL 0.70-1.20 [facility] Serum glucose measurement (m ass/volume)Ordered By: Steven Tejeda on 07-03-2025 Glucose [Mass/Vol] 204 mg/dL High 70-99 [facility] Serum or plasma calcium ivania urement (mass/volume)Ordered By: Steven Tejeda on 07-03-2025 Calcium [Mass/Vol] 9.7 mg/dL 7.6-11.0 [facility] Serum or plasma urea nitroge n measurement (mass/volume)Ordered By: Steven Tejeda on 07-03-2025 Urea nitrogen [Mass/Vol] 14 mg/dL 4-19 [facility] Sodium levelOrdered By: Steven Tejeda on 07-03-2025 Sodium [Moles/Vol] 133 mmol/L 133-145 [facility] Squamous epithelial cells de tection in urine sediment by light microscopyOrdered By: Steven Tejeda on 07-03-2025 Epithelial cells.squamous LM Ql (Urine sed) 0-5 SEEN /hpf 0-5 [facility] Urinalysis, Completeon 07-03 BACTERIA RARE Normal None Seen [facility] Comment on above: Order Comment: CLEAN CATCH Performed By: #### L 501.080 #### [facility] [address] [place], [address] CAST,HYALINE 0-5 SEEN Normal 0-5 [facility] Comment on above: Order Comment: CLEAN CATCH Performed By: #### L 501.080 #### [facility] [address] [place], [address] EPI,SQUAMOUS 0-5 SEEN Normal 0-5 [facility] Comment on above: Order Comment: CLEAN CATCH Performed By: #### L 501.080 #### [facility] [address] [place], [address] RBC 0-5 SEEN Normal 0-5 [facility] Comment on above: Order Comment: CLEAN CATCH Performed By: #### L 501.080 #### [facility] [address] [place], [address] WBC 0-5 SEEN Normal 0-5 [facility] Comment on above: Order Comment: CLEAN CATCH Performed By: #### L 501.080 #### [facility] [address] [place], [address] Mucus Ql (Urine sed) 0 SEEN Normal [facility] Comment on above: Order Comment: CLEAN CATCH Performed By: #### L 501.080 #### [facility] [address] [place], [place], [address] Urine clarityOrdered By: Pat Tejeda on 07-03-2025 Clarity (U) Clear Clear [facility] Urine color determinationOrd ered By: Steven Tejeda on 07-03-2025 Color (U) Yellow Yellow [facility] Urine glucose detectionOrder ed By: Steven Tejeda on 07-03-2025 Glucose Ql (U) 100 mg/dl High Normal [facility] Urine leukocyte esterase det ection by dipstickOrdered By: Steven Tejeda on 07-03-2025 Leukocyte esterase Test strip Ql (U) Negative Negative [facility] Urine pHOrdered By: Steven proctor on 07-03-2025 pH (U) 6.0 [pH] 5.0 - 8.0 [facility] Urine sediment bacteria coun t by microscopy (number/high power field)Ordered By: Steven Tejeda on 07-03-2025 Bacteria LM.HPF (Urine sed) [#/Area] RARE /hpf None Seen [facility] Urine specific gravity measu rementOrdered By: Steven Tejeda on 07-03-2025 Specific gravity (U) [Rel density] 1.010 1.002-1.030 [facility] Urine urobilinogen measureme ntOrdered By: Steven Tejeda on 07-03-2025 Urobilinogen Ql (U) Normal mg/dl Normal [facility] White blood cell (WBC) count Ordered By: Steven Tejeda on 07-03-2025 WBC (Bld) [#/Vol] 12.7 10*3/uL High 4.4-11.0 [facility] White blood cell countOrdere d By: Steven Tejeda on 07-03-2025 White blood cell count 0-5 SEEN /hpf 0-5 [facility] Basic Metabolic Profile (BMP )on 05-14-2025 BUN Normal 4- [facility] Comment on above: Result Comment: Canc elled via OM: Order cancelled - Patient discharged Performed By: #### L 500.2500, L100.0100 #### [facility] [address] [place], [place], [id number] BUN/CRE Normal 10- [facility] Comment on above: Result Comment: Canc elled via OM: Order cancelled - Patient discharged Performed By: #### L 500.2500, L100.0100 #### [facility] [address] [place], [address] Calcium Normal 7.6-11.0 [facility] Comment on above: Result Comment: Canc elled via OM: Order cancelled - Patient discharged Performed By: #### L 500.2500, L100.0100 #### [facility] [address] [place], [address] CL Normal 98-108 [facility] Comment on above: Result Comment: Canc elled via OM: Order cancelled - Patient discharged Performed By: #### L 500.2500, L100.0100 #### [facility] [address] [place], [address] CO2 Normal 21.0-32.0 [facility] Comment on above: Result Comment: Canc elled via OM: Order cancelled - Patient discharged Performed By: #### L 500.2500, L100.0100 #### [facility] [address] [place], [address] CREAT,SERUM Normal 0.70-1.20 [facility] Comment on above: Result Comment: Canc elled via OM: Order cancelled - Patient discharged Performed By: #### L 500.2500, L100.0100 #### [facility] [address] [place], [address] eGFR Normal >60 [facility] Comment on above: Result Comment: Canc elled via OM: Order cancelled - Patient discharged Performed By: #### L 500.2500, L100.0100 #### [facility] [address] [place], [address] GAP Normal 5-15 [facility] Comment on above: Result Comment: Canc elled via OM: Order cancelled - Patient discharged Performed By: #### L 500.2500, L100.0100 #### [facility] [address] [place], [address] GLU Normal 70-99 [facility] Comment on above: Result Comment: Canc elled via OM: Order cancelled - Patient discharged Performed By: #### L 500.2500, L100.0100 #### [facility] [address] [place], [address] Potassium Normal 3.3-5.1 [facility] Comment on above: Result Comment: Canc elled via OM: Order cancelled - Patient discharged Performed By: #### L 500.2500, L100.0100 #### [facility] [address] [place], [address] Basic Metabolic Profile (BMP) Normal 133-145 [facility] Comment on above: Result Comment: Canc elled via OM: Order cancelled - Patient discharged Performed By: #### L 500.2500, L100.0100 #### [facility] [address] [place], [address] CBC W/Diff, Automatedon 06-2 0-2024 Absolute Neut Normal 2.0-7.7 [facility] Comment on above: Result Comment: Canc elled via OM: Order cancelled - Patient discharged Performed By: #### L 500.2500, L100.0100 #### [facility] [address] [place], [address] HCT Normal 40-54 [facility] Comment on above: Result Comment: Canc elled via OM: Order cancelled - Patient discharged Performed By: #### L 500.2500, L100.0100 #### [facility] [address] [place], [address] HGB Normal 13.0-16.5 [facility] Comment on above: Result Comment: Canc elled via OM: Order cancelled - Patient discharged Performed By: #### L 500.2500, L100.0100 #### [facility] [address] [place], [address] MCH Normal 27.0-32.0 [facility] Comment on above: Result Comment: Canc elled via OM: Order cancelled - Patient discharged Performed By: #### L 500.2500, L100.0100 #### [facility] [address] [place], [address] MCHC Normal 32-36 [facility] Comment on above: Result Comment: Canc elled via OM: Order cancelled - Patient discharged Performed By: #### L 500.2500, L100.0100 #### [facility] [address] [place], [address] MCV Normal 80-94 [facility] Comment on above: Result Comment: Canc elled via OM: Order cancelled - Patient discharged Performed By: #### L 500.2500, L100.0100 #### [facility] [address] [place], [address] NEUT% Normal 47-70 [facility] Comment on above: Result Comment: Canc elled via OM: Order cancelled - Patient discharged Performed By: #### L 500.2500, L100.0100 #### [facility] [address] [place], [address] PLT Normal 150-450 [facility] Comment on above: Result Comment: Canc elled via OM: Order cancelled - Patient discharged Performed By: #### L 500.2500, L100.0100 #### [facility] [address] [place], [address] RBC Normal 4.6-6.2 [facility] Comment on above: Result Comment: Canc elled via OM: Order cancelled - Patient discharged Performed By: #### L 500.2500, L100.0100 #### [facility] [address] [place], [address] RDW CV Normal 11.6-14.6 [facility] Comment on above: Result Comment: Canc elled via OM: Order cancelled - Patient discharged Performed By: #### L 500.2500, L100.0100 #### [facility] [address] [place], [address] RDW SD Normal 35.1-43.9 [facility] Comment on above: Result Comment: Canc elled via OM: Order cancelled - Patient discharged Performed By: #### L 500.2500, L100.0100 #### [facility] [address] [place], [address] WBC Normal 4.4-11.0 [facility] Comment on above: Result Comment: Canc elled via OM: Order cancelled - Patient discharged Performed By: #### L 500.2500, L100.0100 #### [facility] [address] [place], [address] Absolute lymphocyte countOrd ered By: Anthony Salgado on 05-13-2025 Lymphocytes Auto (Unsp spec) [#/Vol] 1.93 10*3/uL 0.83-4.51 [facility] Absolute neutrophil countOrd ered By: Anthony Salgado on 05-13-2025 Neutrophils (Bld) [#/Vol] 8.9 10*3/uL High 2.0-7.7 [facility] Anion gap in Serum or Plasma Ordered By: Anthony Salgado on 05-13-2025 Anion gap [Moles/Vol] 11 mmol/L 5-15 [facility] Automated lymphocyte count a s percentage of total leukocytesOrdered By: Anthony Salgado on 05-13-2025 Lymphocytes/100 WBC Auto (Unsp spec) 16.4 % Low 19- [facility] BUN/creatinine ratioOrdered By: Anthony Salgado on 05-13-2025 Urea nitrogen/Creatinine [Mass ratio] 9.2 mg/mg Low 10-20 [facility] Basic Metabolic Profile (BMP )on 05-13-2025 BUN/CRE 9.2 RATIO Low 10-20 [facility] Comment on above: Performed By: #### L 501.080 #### [facility] [address] [place], [address] Calcium [Mass/Vol] 9.7 mg/dL Normal 7.6-11.0 [facility] Comment on above: Performed By: #### L 501.080 #### [facility] [address] [place], [address] Chloride [Moles/Vol] 104 mmol/L Normal 98-108 [facility] Comment on above: Performed By: #### L 501.080 #### [facility] [address] [place], [address] CO2 [Moles/Vol] 22.8 mmol/L Normal 21.0-32.0 [facility] Comment on above: Performed By: #### L 501.080 #### [facility] [address] [place], [address] Creatinine [Mass/Vol] 1.07 mg/dL Normal 0.70-1.20 [facility] Comment on above: Performed By: #### L 501.080 #### [facility] [address] [place], [address] ECRCL 53.58 ml/min Normal 50-250 [facility] Comment on above: Performed By: #### L 501.080 #### [facility] [address] [place], [address] GAP 11 Normal 5-15 [facility] Comment on above: Performed By: #### L 501.080 #### [facility] [address] [place], [address] GFR/1.73 sq M.predicted among non-blacks MDRD (S/P/Bld) [Vol rate/Area] 72 mL/min/{1.73_m2} Normal >60 [facility] Comment on above: Result Comment: mL/m in/1.73m2 CKD-EPI Creatinine Equation (2020) Performed By: #### L 501.080 #### [facility] [address] [place], [address] Glucose [Mass/Vol] 207 mg/dL High 70-99 [facility] Comment on above: Performed By: #### L 501.080 #### [facility] [address] [place], [address] Potassium [Moles/Vol] 3.2 mmol/L Low 3.3-5.1 [facility] Comment on above: Performed By: #### L 501.080 #### [facility] [address] [place], [address] Sodium [Moles/Vol] 137 mmol/L Normal 133-145 [facility] Comment on above: Performed By: #### L 501.080 #### [facility] [address] [place], [address] Urea nitrogen [Mass/Vol] 10 mg/dL Normal 4-19 [facility] Comment on above: Performed By: #### L 501.080 #### [facility] [address] [place], [address] Basophil percentageOrdered B y: Anthony Salgado on 05-13-2025 Basophils/100 WBC (Bld) 0.2 % 0-1 [facility] Bedside Glucoseon 05-13-2025 FINGERSTICK GLU 325 mg/dL High 74-106 [facility] Comment on above: Result Comment: BELLA PENALOZA OF PATIENT CARE PER NURSING PROTOCOL Performed By: #### L 501.080 ####[facility] [address] [place], [address] FINGERSTICK GLU 190 mg/dL High 74-106 [facility] Comment on above: Result Comment: BELLA PENALOZA OF PATIENT CARE PER NURSING PROTOCOL Performed By: #### L 501.080 ####[facility] [address] [place], [address] CBC W/Diff, Automatedon - Absolute Lymph 1.93 X10 3/uL Normal 0.83-4.51 [facility] Comment on above: Performed By: #### L 501.080 #### [facility] [address] [place], [address] Absolute Neut 8.9 X10 3/uL High 2.0-7.7 [facility] Comment on above: Performed By: #### L 501.080 #### [facility] [address] [place], [address] Basophils/100 WBC (Bld) 0.2 % Normal 0-1 [facility] Comment on above: Performed By: #### L 501.080 #### [facility] [address] [place], [address] Eosinophils/100 WBC (Bld) 0.9 % Normal 0-5 [facility] Comment on above: Performed By: #### L 501.080 #### [facility] [address] [place], [address] Erythrocyte distribution width (RBC) [Ratio] 18.4 % High 11.6-14.6 [facility] Comment on above: Performed By: #### L 501.080 #### [facility] [address] [place], [address] Hematocrit (Bld) [Volume fraction] 25.4 % Low 40-54 [facility] Comment on above: Performed By: #### L 501.080 #### [facility] [address] [place], [address] Hemoglobin (Bld) [Mass/Vol] 7.7 g/dL Low 13.0-16.5 [facility] Comment on above: Performed By: #### L 501.080 #### [facility] [address] [place], [address] IG% 0.300 Normal 0.0-0.9 [facility] Comment on above: Result Comment: IG% - Immature Granulocytes (promyelocytes, myelocytes and metamyelocytes) > 1% indicates that a LEFT SHIFT is Present. Performed By: #### L 501.080 #### [facility] [address] [place], [address] Lymphocytes/100 WBC (Bld) 16.4 % Low 19-41 [facility] Comment on above: Performed By: #### L 501.080 #### [facility] [address] [place], [address] MCH (RBC) [Entitic mass] 19.7 pg Low 27.0-32.0 [facility] Comment on above: Performed By: #### L 501.080 #### [facility] [address] [place], [address] MCHC (RBC) [Mass/Vol] 30.3 g/dL Low 32-36 [facility] Comment on above: Performed By: #### L 501.080 #### [facility] [address] [place], [address] MCV (RBC) [Entitic vol] 65.0 fL Low 80-94 [facility] Comment on above: Performed By: #### L 501.080 #### [facility] [address] [place], [address] Monocytes/100 WBC (Bld) 6.5 % Normal 0-10 [facility] Comment on above: Performed By: #### L 501.080 #### [facility] [address] [place], [address] Neutrophils/100 WBC (Bld) 75.7 % High 47-70 [facility] Comment on above: Performed By: #### L 501.080 #### [facility] [address] [place], [address] Nucleated RBC (Bld) [#/Vol] 0 10*3/uL Normal 0-5 [facility] Comment on above: Performed By: #### L 501.080 #### [facility] [address] [place], [address] Platelet mean volume (Bld) [Entitic vol] 10.0 fL Normal 6.2-12.0 [facility] Comment on above: Performed By: #### L 501.080 #### [facility] [address] [place], [address] Platelets (Bld) [#/Vol] 358 10*3/uL Normal 150-450 [facility] Comment on above: Performed By: #### L 501.080 #### [facility] [address] [place], [address] RBC (Bld) [#/Vol] 3.91 10*6/uL Low 4.6-6.2 [facility] Comment on above: Performed By: #### L 501.080 #### [facility] [address] [place], [address] RDW SD 43.1 fl Normal 35.1-43.9 [facility] Comment on above: Performed By: #### L 501.080 #### [facility] [address] [place], [address] WBC (Bld) [#/Vol] 11.8 10*3/uL High 4.4-11.0 [facility] Comment on above: Performed By: #### L 501.080 #### [facility] [address] [place], [address] Carbon dioxide, total [Moles /volume] in Central venous bloodOrdered By: Anthony Salgado on 05-13-2025 CO2 [Moles/Vol] 22.8 mmol/L 21.0-32.0 [facility] Chloride assayOrdered By: Venessa Salgado on 05-13-2025 Chloride [Moles/Vol] 104 mmol/L 98-108 [facility] Eosinophil percentageOrdered By: Anthony Salgado on 05-13-2025 Eosinophils/100 WBC (Bld) 0.9 % 0-5 [facility] Erythrocyte distribution wid th ratioOrdered By: nAthony Salgado on 05-13-2025 Erythrocyte distribution width (RBC) [Ratio] 18.4 % High 11.6-14.6 [facility] Erythrocyte distribution wid th standard deviationOrdered By: Anthony Salgado on 05-13-2025 Erythrocyte distribution width (RBC) [Ratio] 43.1 fl 35.1-43.9 [facility] Glomerular filtration rate ( GFR) estimation/1.73 sq m using serum, plasma, or whole bOrdered By: Anthony Salgado on 05-13-2025 GFR/1.73 sq M.predicted among non-blacks MDRD (S/P/Bld) [Vol rate/Area] 72 mL/min/{1.73_m2} >60 [facility] Comment on above: mL/min/1.73m2 CKD-EP I Creatinine Equation (2020) Glucose measurement at bedsi deOrdered By: Anthony Salgado on 05-13-2025 Glucose [Mass/Vol] 325 mg/dL High 74-106 [facility] Comment on above: MANAGEMENT OF PATIEN T CARE PER NURSING PROTOCOL Hematocrit Auto (Bld) [Volum e fraction]Ordered By: Anthony Salgado on 05-13-2025 Hematocrit (Bld) [Volume fraction] 25.4 % Low 40-54 [facility] Hemoglobin measurementOrdere d By: Anthony Salgado on 05-13-2025 Hemoglobin (Bld) [Mass/Vol] 7.7 g/dL Low 13.0-16.5 [facility] Immature granulocytes/100 WB C Auto (Bld)Ordered By: Anthony Salgado on 05-13-2025 Immature granulocytes/100 WBC (Bld) 0.300 % 0.0-0.9 [facility] Comment on above: IG% - Immature Granu locytes (promyelocytes, myelocytes and metamyelocytes) > 1% indicates that a LEFT SHIFT is Present. MCV (mean corpuscular volume ) determinationOrdered By: Anthony Salgado on 05-13-2025 MCV (RBC) [Entitic vol] 65.0 fL Low 80-94 [facility] Mean corpuscular hemoglobin (MCH) determinationOrdered By: Anthony Salgado on 05-13-2025 MCH (RBC) [Entitic mass] 19.7 pg Low 27.0-32.0 [facility] Mean corpuscular hemoglobin concentration (MCHC) determinationOrdered By: Anthony Salgado on 05-13-2025 MCHC (RBC) [Mass/Vol] 30.3 g/dL Low 32-36 [facility] Mean platelet volume determi nationOrdered By: Anthony Salgado on 05-13-2025 Platelet mean volume (Bld) [Entitic vol] 10.0 fL 6.2-12.0 [facility] Monocyte percentageOrdered B y: Anthony Salgado on 05-13-2025 Monocytes/100 WBC (Bld) 6.5 % 0-10 [facility] Neutrophil percentageOrdered By: Anthony Salgado on 05-13-2025 Neutrophils/100 WBC (Bld) 75.7 % High 47-70 [facility] Nucleated red blood cell per centageOrdered By: Anthony Salgado on 05-13-2025 Nucleated RBC/100 WBC (Bld) [Ratio] 0 % 0-5 [facility] Platelet countOrdered By: Venessa Salgado on 05-13-2025 Platelets (Bld) [#/Vol] 358 10*3/uL 150-450 [facility] Potassium measurement (mass/ volume)Ordered By: Anthony Salgado on 05-13-2025 Potassium (Unsp spec) [Mass/Vol] 3.2 mmol/L Low 3.3-5.1 [facility] RBC Auto (Bld) [#/Vol]Ordere d By: Anthony Salgado on 05-13-2025 RBC (Bld) [#/Vol] 3.91 10*6/uL Low 4.6-6.2 [facility] Serum creatinine measurement (mass/volume)Ordered By: Anthony Salgado on 05-13-2025 Creatinine [Mass/Vol] 1.07 mg/dL 0.70-1.20 [facility] Serum glucose measurement (m ass/volume)Ordered By: Anthony Salgado on 05-13-2025 Glucose [Mass/Vol] 207 mg/dL High 70-99 [facility] Serum or plasma calcium ivania urement (mass/volume)Ordered By: Anthony Salgado on 05-13-2025 Calcium [Mass/Vol] 9.7 mg/dL 7.6-11.0 [facility] Serum or plasma urea nitroge n measurement (mass/volume)Ordered By: Anthony Salgado on 05-13-2025 Urea nitrogen [Mass/Vol] 10 mg/dL 4-19 [facility] Sodium levelOrdered By: J Luis Salgado on 05-13-2025 Sodium [Moles/Vol] 137 mmol/L 133-145 [facility] Trough vancomycin levelOrder ed By: Lane Stanley on 05-13-2025 Vancomycin trough [Mass/Vol] 8.6 ug/mL 5.0-15.0 [facility] Comment on above: Recommended goal [...] therapy recommended for serious lifethreatening infections include:- Glpoozxuhb-Vwtuggixrwky-Lvfmiamhg (Ventilator/Healtcare Associated)-Sepsis PLEASE CONTACT PHARMACY SERVICES (#[id number]) FOR INTERPRETATIONOF RESULTS. Vancomycin, Trough Levelon 0 05-13-2025 VANCO, TROUGH 8.6 ug/mL Normal 5.0-15.0 [facility] Comment on above: Order Comment: Comme nts: Trough to be drawn 30 mins prior to scheduled [id number] Result Comment: Jose A mmended goal trough [...] (Ventilator/Healtcare Associated) -Sepsis PLEASE CONTACT PHARMACY SERVICES (#[id number]) FOR INTERPRETATION OF RESULTS. Performed By: #### L 501.8820 ####[facility] [address] [place], [address] White blood cell (WBC) count Ordered By: Anthony Salgado on 05-13-2025 WBC (Bld) [#/Vol] 11.8 10*3/uL High 4.4-11.0 [facility] Basic Metabolic Profile (BMP )on 05-12-2025 BUN/CRE 10.8 RATIO Normal 10-20 [facility] Comment on above: Performed By: #### L 501.080 #### [facility] [address] [place], [address] Calcium [Mass/Vol] 10.3 mg/dL Normal 7.6-11.0 [facility] Comment on above: Performed By: #### L 501.080 #### [facility] [address] [place], [address] Chloride [Moles/Vol] 103 mmol/L Normal 98-108 [facility] Comment on above: Performed By: #### L 501.080 #### [facility] [address] [place], [address] CO2 [Moles/Vol] 23.7 mmol/L Normal 21.0-32.0 [facility] Comment on above: Performed By: #### L 501.080 #### [facility] [address] [place], [address] Creatinine [Mass/Vol] 0.92 mg/dL Normal 0.70-1.20 [facility] Comment on above: Performed By: #### L 501.080 #### [facility] [address] [place], [address] ECRCL 62.32 ml/min Normal 50-250 [facility] Comment on above: Performed By: #### L 501.080 #### [facility] [address] [place], [address] GAP 11 Normal 5-15 [facility] Comment on above: Performed By: #### L 501.080 #### [facility] [address] [place], [address] GFR/1.73 sq M.predicted among non-blacks MDRD (S/P/Bld) [Vol rate/Area] 87 mL/min/{1.73_m2} Normal >60 [facility] Comment on above: Result Comment: mL/m in/1.73m2 CKD-EPI Creatinine Equation (2020) Performed By: #### L 501.080 #### [facility] [address] [place], [address] Glucose [Mass/Vol] 159 mg/dL High 70-99 [facility] Comment on above: Performed By: #### L 501.080 #### [facility] [address] [place], [address] Potassium [Moles/Vol] 3.2 mmol/L Low 3.3-5.1 [facility] Comment on above: Performed By: #### L 501.080 #### [facility] [address] [place], [address] Sodium [Moles/Vol] 138 mmol/L Normal 133-145 [facility] Comment on above: Performed By: #### L 501.080 #### [facility] [address] [place], [address] Urea nitrogen [Mass/Vol] 10 mg/dL Normal 4-19 [facility] Comment on above: Performed By: #### L 501.080 #### [facility] [address] [place], [address] Bedside Glucoseon 05-12-2025 FINGERSTICK GLU 330 mg/dL High [address] [place] [address] Comment on above: Result Comment: BELLA GEMENT OF PATIENT CARE PER NURSING PROTOCOL Performed By: #### L 500.2500, L100.0100 #### [facility] [address] [place], [address] FINGERSTICK GLU 278 mg/dL High [address] [place] [address] Comment on above: Result Comment: BELLA GEMENT OF PATIENT CARE PER NURSING PROTOCOL Performed By: #### L 501.080 #### [facility] [address] [place], [address] FINGERSTICK GLU 310 mg/dL High [address] [place] [address] Comment on above: Result Comment: BELLA GEMENT OF PATIENT CARE PER NURSING PROTOCOL Performed By: #### L 501.080 #### [facility] [address] [place], [address] FINGERSTICK GLU 160 mg/dL High [address] [place] [address] Comment on above: Result Comment: BELLA GEMENT OF PATIENT CARE PER NURSING PROTOCOL Performed By: #### L 501.080 ####[facility] [address] [place], [address] FINGERSTICK GLU 242 mg/dL High [address] [place] [address] Comment on above: Result Comment: BELLA GEMENT OF PATIENT CARE PER NURSING PROTOCOL Performed By: #### L 501.080 #### [facility] [address] [place], [address] Bilirubin directOrdered By: Lane Stanley on 05-12-2025 Bilirubin.direct [Mass/Vol] 0.23 mg/dL 0.00-0.30 [facility] Bilirubin, totalOrdered By: Lane Stanley on 05-12-2025 Bilirubin [Mass/Vol] 0.44 mg/dL 0.00-1.30 [facility] Brain/Head W/WO Contraston 0 05-12-2025 Brain/Head W/WO Contrast [facility] [address] [place], [place] [address] Brain/Head W/WO Contrast MR#: [id number] Acct: [id number] Name: ITZEL ALONZO Rep #: [id number] : 1950 M 74 From: Joaquin Kiser PCP: SID Haro Status: ADM IN Study: Brain/Head W/WO Contrast Date of Exam: 5 Exam# [id number] Ordering Dr: Anthony Salgado MD PROCEDURE: BRAIN/HEAD [...] mass. No acute intracranial process. Reading Location: [id number] CC: POWER BARKER OPERATOR-C Carlene Haji; Dr. Anthony Salgado MD Electronic Communications Technician: Signed Normal [facility] CBC-Complete Blood Cnt No Annelise ferrari 05-12-2025 Erythrocyte distribution width (RBC) [Ratio] 18.6 % High 11.6-14.6 [facility] Comment on above: Performed By: #### L 501.080 #### [facility] [address] [place], [address] Hematocrit (Bld) [Volume fraction] 27.8 % Low 40-54 [facility] Comment on above: Performed By: #### L 501.080 #### [facility] [address] [place], [address] Hemoglobin (Bld) [Mass/Vol] 8.4 g/dL Low 13.0-16.5 [facility] Comment on above: Performed By: #### L 501.080 #### [facility] [address] [place], [address] MCH (RBC) [Entitic mass] 19.6 pg Low 27.0-32.0 [facility] Comment on above: Performed By: #### L 501.080 #### [facility] [address] [place], [address] MCHC (RBC) [Mass/Vol] 30.2 g/dL Low 32-36 [facility] Comment on above: Performed By: #### L 501.080 #### [facility] [address] [place], [address] MCV (RBC) [Entitic vol] 65.0 fL Low 80-94 [facility] Comment on above: Performed By: #### L 501.080 #### [facility] [address] [place], [address] Platelet mean volume (Bld) [Entitic vol] 9.8 fL Normal 6.2-12.0 [facility] Comment on above: Performed By: #### L 501.080 #### [facility] [address] [place], [address] Platelets (Bld) [#/Vol] 411 10*3/uL Normal 150-450 [facility] Comment on above: Performed By: #### L 501.080 #### [facility] [address] [place], [address] RBC (Bld) [#/Vol] 4.28 10*6/uL Low 4.6-6.2 [facility] Comment on above: Performed By: #### L 501.080 #### [facility] [address] [place], [address] RDW SD 43.0 fl Normal 35.1-43.9 [facility] Comment on above: Performed By: #### L 501.080 #### [facility] [address] [place], [address] WBC (Bld) [#/Vol] 13.2 10*3/uL High 4.4-11.0 [facility] Comment on above: Performed By: #### L 501.080 #### [facility] [address] [place], [address] Electrocardiogram reportOrde red By: Kevin Joshi on 05-12-2025 EKG study [facility] [address] [place] [address] 12 Lead EKG 05/11/25 1709 MR#: [id number] Acct: [id number] Name: ITZEL ALONZO Rep #:[id number] : 1950 74 From: Kevin Joshi MD Attending Dr: Dr. Anthony Salgado MD Status: ADM IN Ordering Dr: Monty Clarke MD Date: 05/11 Location: [facility] Sex: M AA Admitted: 05/11/25 Test Reason : GENERAL Blood Pressure : */* mmHG Vent. Rate : 91 BPM Atrial Rate : 91 BPM P-R Int : 150 ms QRS Dur : 90 ms QT Int : 386 ms P-R-T Axes : 47 58 53 degrees QTcB Int : 474 ms Normal sinus rhythm Normal ECG Confirmed by KEVIN JOSHI MD ([id number]), newspaper or periodical editor JOSE NYE ([id number]) on 05/12/2025 8:27:44 AM Referred By: Confirmed By: KEVIN JOSHI MD 05/12/25826 Date _ Kevin Joshi MD CC: SID Haji; Dr. Anthony Salgado MD; Dr. Monty Clarke MD ~ Signed [facility] Other Phone: Laboratory - Chemistry and C hemistry - challengeOrdered By: Lane Stanley on 05-12-2025 AST [Catalytic activity/Vol] 23 U/L <38 [facility] Liver Profileon 05-12-2025 Albumin [Mass/Vol] 3.3 g/dL Low 3.4-4.8 [facility] Comment on above: Performed By: #### L 501.080 #### [facility] [address] [place], [place], [id number] ALK PHOS 131 U/L High 40-129 [facility] Comment on above: Performed By: #### L 501.080 #### [facility] [address] [place], [place], [id number] [phone] [Catalytic activity/Vol] 11 U/L Normal <=46 [facility] Comment on above: Performed By: #### L 501.080 #### [facility] [address] [place], [address] AST [Catalytic activity/Vol] 23 U/L Normal <=37 [facility] Comment on above: Performed By: #### L 501.080 #### [facility] [address] [place], [address] Bilirubin [Mass/Vol] 0.44 mg/dL Normal 0.00-1.30 [facility] Comment on above: Performed By: #### L 501.080 #### [facility] [address] [place], [address] Bilirubin.direct [Mass/Vol] 0.23 mg/dL Normal 0.00-0.30 [facility] Comment on above: Performed By: #### L 501.080 #### [facility] [address] [place], [address] Globulin (S) [Mass/Vol] 3.8 g/dL Normal 2.2-4.2 [facility] Comment on above: Performed By: #### L 501.080 #### [facility] [address] [place], [address] T PROT 7.1 g/dL Normal 5.9-8.4 [facility] Comment on above: Performed By: #### L 501.080 #### [facility] [address] [place], [address] Serum globulin measurementOr dered By: Lane Stanley on 05-12-2025 Globulin (S) [Mass/Vol] 3.8 g/dL 2.2-4.2 [facility] Serum or plasma alanine stahl otransferase (ALT) measurementOrdered By: Lane Stanley on 05-12-2025 ALT [Catalytic activity/Vol] 11 U/L <47 [facility] Serum or plasma albumin ivania urement (mass/volume)Ordered By: Lane Stanley on 05-12-2025 Albumin [Mass/Vol] 3.3 g/dL Low 3.4-4.8 [facility] Serum or plasma alkaline brittany sphatase measurementOrdered By: Lane Stanley on 05-12-2025 ALP [Catalytic activity/Vol] 131 U/L High 40-129 [facility] Total proteinOrdered By: Eileen Stanley on 05-12-2025 Protein [Mass/Vol] 7.1 g/dL 5.9-8.4 [facility] 12 Lead EKGon 05-11-2025 12 Lead EKG [facility] Cardiovascular Services [address] [place] [address] 12 Lead EKG 05/11/25 1709 MR#: [id number] Acct: [id number] Name: ITZEL ALONZO Rep #: [id number] : 1950 74 From: Kevin Joshi MD Attending Dr: Dr. Anthony Salgado MD Status: ADM IN Ordering Dr: Monty Clarke MD Date: 05/11/25 Location: [facility] Sex: M AA Admitted: 05/11/25 Test Reason : GENERAL Blood Pressure : */* mmHG Vent. Rate : 91 BPM Atrial Rate : 91 BPM P-R Int : 150 ms QRS Dur : 90 ms QT Int : 386 ms P-R-T Axes : 47 58 53 degrees QTcB Int : 474 ms Normal sinus rhythm Normal ECG Confirmed by KEVIN JOSHI MD ([id number]), newspaper or periodical editor JOSE NYE ([id number]) on 05/12/2025 8:27:44 AM Referred By: Confirmed By: KEVIN JOSHI MD 05/12/25 0827 Date Kevin Joshi MD CC: SID Haji; Dr. Anthony Salgado MD; Dr. Monty Clarke MD Signed Normal [facility] Absolute lymphocyte countOrd ered By: Monty Clarke on 05-11-2025 Lymphocytes Auto (Unsp spec) [#/Vol] 2.13 10*3/uL 0.83-4.51 [facility] Absolute neutrophil countOrd ered By: Monty Clarke on 05-11-2025 Neutrophils (Bld) [#/Vol] 8.6 10*3/uL High 2.0-7.7 [facility] Anion gap in Serum or Plasma Ordered By: Monty Clarke on 05-11-2025 Anion gap [Moles/Vol] 11 mmol/L 5-15 [facility] Automated lymphocyte count a s percentage of total leukocytesOrdered By: Monty Clarke on 05-11-2025 Lymphocytes/100 WBC Auto (Unsp spec) 18.4 % Low 19-41 [facility] BUN/creatinine ratioOrdered By: Monty Clarke on 05-11-2025 Urea nitrogen/Creatinine [Mass ratio] 11.3 mg/mg 10-20 [facility] Basophil percentageOrdered B y: Monty Clarke on 05-11-2025 Basophils/100 WBC (Bld) 0.3 % 0-1 [facility] Bilirubin, totalOrdered By: Monty Clarke on 05-11-2025 Bilirubin [Mass/Vol] 0.41 mg/dL 0.00-1.30 [facility] CBC W/Diff, Automatedon 04-25 Absolute Lymph 2.13 X10 3/uL Normal 0.83-4.51 [facility] Comment on above: Performed By: #### L 501.080 #### [facility] [address] [place], [address] Absolute Neut 8.6 X10 3/uL High 2.0-7.7 [facility] Comment on above: Performed By: #### L 501.080 #### [facility] [address] [place], [address] Basophils/100 WBC (Bld) 0.3 % Normal 0-1 [facility] Comment on above: Performed By: #### L 501.080 #### [facility] [address] [place], [address] Eosinophils/100 WBC (Bld) 0.8 % Normal 0-5 [facility] Comment on above: Performed By: #### L 501.080 #### [facility] [address] [place], [address] Erythrocyte distribution width (RBC) [Ratio] 19.0 % High 11.6-14.6 [facility] Comment on above: Performed By: #### L 501.080 #### [facility] [address] [place], [address] Hematocrit (Bld) [Volume fraction] 28.9 % Low 40-54 [facility] Comment on above: Performed By: #### L 501.080 #### [facility] [address] [place], [address] Hemoglobin (Bld) [Mass/Vol] 8.7 g/dL Low 13.0-16.5 [facility] Comment on above: Performed By: #### L 501.080 #### [facility] [address] [place], [address] IG% 0.400 Normal 0.0-0.9 [facility] Comment on above: Result Comment: IG% - Immature Granulocytes (promyelocytes, myelocytes and metamyelocytes) > 1% indicates that a LEFT SHIFT is Present. Performed By: #### L 501.080 #### [facility] [address] [place], [address] Lymphocytes/100 WBC (Bld) 18.4 % Low 19-41 [facility] Comment on above: Performed By: #### L 501.080 #### [facility] [address] [place], [address] MCH (RBC) [Entitic mass] 20.0 pg Low 27.0-32.0 [facility] Comment on above: Performed By: #### L 501.080 #### [facility] [address] [place], [address] MCHC (RBC) [Mass/Vol] 30.1 g/dL Low 32-36 [facility] Comment on above: Performed By: #### L 501.080 #### [facility] [address] [place], [address] MCV (RBC) [Entitic vol] 66.4 fL Low 80-94 [facility] Comment on above: Performed By: #### L 501.080 #### [facility] [address] [place], [address] Monocytes/100 WBC (Bld) 5.8 % Normal 0-10 [facility] Comment on above: Performed By: #### L 501.080 #### [facility] [address] [place], [address] Neutrophils/100 WBC (Bld) 74.3 % High 47-70 [facility] Comment on above: Performed By: #### L 501.080 #### [facility] [address] [place], [address] Nucleated RBC (Bld) [#/Vol] 0 10*3/uL Normal 0-5 [facility] Comment on above: Performed By: #### L 501.080 #### [facility] [address] [place], [address] Platelet mean volume (Bld) [Entitic vol] 9.5 fL Normal 6.2-12.0 [facility] Comment on above: Performed By: #### L 501.080 #### [facility] [address] [place], [address] Platelets (Bld) [#/Vol] 404 10*3/uL Normal 150-450 [facility] Comment on above: Performed By: #### L 501.080 #### [facility] [address] [place], [address] RBC (Bld) [#/Vol] 4.35 10*6/uL Low 4.6-6.2 [facility] Comment on above: Performed By: #### L 501.080 #### [facility] [address] [place], [address] RDW SD 44.7 fl High 35.1-43.9 [facility] Comment on above: Performed By: #### L 501.080 #### [facility] [address] [place], [place], [address] WBC (Bld) [#/Vol] 11.6 10*3/uL High 4.4-11.0 [facility] Comment on above: Performed By: #### L 501.080 #### [facility] [address] [place], [place], [address] Carbon dioxide, total [Moles /volume] in Central venous bloodOrdered By: Monty Clarke on 05-11-2025 CO2 [Moles/Vol] 26.3 mmol/L 21.0-32.0 [facility] Chest PA and Lateralon 05-11 Chest PA and Lateral [facility] Imaging Services [address] [place], [place] [address] Chest PA and Lateral MR#: [id number] Acct: [id number] Name: CHERIITZEL Carlie Rep #: [id number] : 1950 M 74 From: Jamie Suero DO PCP: Carlene Haji, POWER BARKER OPERATOR-C Status: [facility] ER Study: Chest PA and Lateral Date of Exam: 05/11/25 Exam# [id number] Ordering Dr: Monty Clarke MD PROCEDURE: CHEST [...] associated with end-stage honeycomb fibrosis. Reading Location: [facility]: SID Haji; Dr. Monty Clarke MD Electronic Communications Technician: Signed Normal [facility] Chloride assayOrdered By: Karin Clarke on 05-11-2025 Chloride [Moles/Vol] 99 mmol/L 98-108 [facility] Comprehensive Metabolic Prof ilon 05-11-2025 Albumin [Mass/Vol] 3.3 g/dL Low 3.4-4.8 [facility] Comment on above: Performed By: #### L 501.080 #### [facility] [address] [place], [address] Albumin/Globulin [Mass ratio] 0.8 {ratio} Low 0.9-2.4 [facility] Comment on above: Performed By: #### L 501.080 #### [facility] [address] [place], [address] ALK PHOS 128 U/L Normal 40-129 [facility] Comment on above: Performed By: #### L 501.080 #### [facility] [address] [place], [address] ALT [Catalytic activity/Vol] 12 U/L Normal <=46 [facility] Comment on above: Performed By: #### L 501.080 #### [facility] [address] [place], [address] AST [Catalytic activity/Vol] 23 U/L Normal <=37 [facility] Comment on above: Performed By: #### L 501.080 #### [facility] [address] [place], [address] Bilirubin [Mass/Vol] 0.41 mg/dL Normal 0.00-1.30 [facility] Comment on above: Performed By: #### L 501.080 #### [facility] [address] [place], [address] BUN/CRE 11.3 RATIO Normal 10-20 [facility] Comment on above: Performed By: #### L 501.080 #### [facility] [address] [place], [address] Calcium [Mass/Vol] 11.2 mg/dL High 7.6-11.0 [facility] Comment on above: Performed By: #### L 501.080 #### [facility] [address] [place], [address] Chloride [Moles/Vol] 99 mmol/L Normal 98-108 [facility] Comment on above: Performed By: #### L 501.080 #### [facility] [address] [place], [address] CO2 [Moles/Vol] 26.3 mmol/L Normal 21.0-32.0 [facility] Comment on above: Performed By: #### L 501.080 #### [facility] [address] [place], [address] Creatinine [Mass/Vol] 1.20 mg/dL Normal 0.70-1.20 [facility] Comment on above: Performed By: #### L 501.080 #### [facility] [address] [place], [address] ECRCL 49.04 ml/min Low 50-250 [facility] Comment on above: Performed By: #### L 501.080 #### [facility] [address] [place], [address] GAP 11 Normal 5-15 [facility] Comment on above: Performed By: #### L 501.080 #### [facility] [address] [place], [address] GFR/1.73 sq M.predicted among non-blacks MDRD (S/P/Bld) [Vol rate/Area] 63 mL/min/{1.73_m2} Normal >60 [facility] Comment on above: Result Comment: mL/m in/1.73m2 CKD-EPI Creatinine Equation (2020) Performed By: #### L 501.080 #### [facility] [address] [place], [address] Globulin (S) [Mass/Vol] 4.2 g/dL Normal 2.2-4.2 [facility] Comment on above: Performed By: #### L 501.080 #### [facility] [address] [place], [address] Glucose [Mass/Vol] 244 mg/dL High 70-99 [facility] Comment on above: Performed By: #### L 501.080 #### [facility] [address] [place], [address] Potassium [Moles/Vol] 3.5 mmol/L Normal 3.3-5.1 [facility] Comment on above: Performed By: #### L 501.080 #### [facility] [address] [place], [address] Sodium [Moles/Vol] 136 mmol/L Normal 133-145 [facility] Comment on above: Performed By: #### L 501.080 #### [facility] [address] [place], [address] T PROT 7.4 g/dL Normal 5.9-8.4 [facility] Comment on above: Performed By: #### L 501.080 #### [facility] [address] [place], [address] Urea nitrogen [Mass/Vol] 14 mg/dL Normal 4-19 [facility] Comment on above: Performed By: #### L 501.080 #### [facility] [address] [place], [address] Emergency Department Summary on 05-11-2025 Emergency Department Summary [facility] Medical Records Department [address] [place] [address] Emergency Department Summary 05/11/25 MR#: [id number] Acct: [id number] Name: ITZEL ALONZO Rep #: [id number] : 1950 74 From: Monty Clarke MD PCP: Carlene Haji, SID Status:ADM IN Location: [place] [address] Monty Clarke MD on 05/11/25 at 2107 EKG was obtained 1709 interpreted by me at 1711. The EKG is normal. Rate is 91. NE interval, QRS duration, QT duration and axis are all normal. 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 He [...] auditory symptoms. Prior similar symptoms: No Recent Illness/Hospitalizati on: Yes [facility] Medical History (Updated 05/11/25 @ 18:41 by [...] PO DAILY heart health Unknown History release budesonide-formoterol HFA 80 2 puff inhalation BID COPD [...] smoker tobacco (more content not included)... Normal [facility] Eosinophil percentageOrdered By: Montymaria e Clarke on 05-11-2025 Eosinophils/100 WBC (Bld) 0.8 % 0-5 [facility] Erythrocyte distribution wid th ratioOrdered By: Montymaria e Clarke on 05-11-2025 Erythrocyte distribution width (RBC) [Ratio] 19.0 % High 11.6-14.6 [facility] Erythrocyte distribution wid th standard deviationOrdered By: Montymaria e Clarke on 05-11-2025 Erythrocyte distribution width (RBC) [Ratio] 44.7 fl High 35.1-43.9 [facility] Glomerular filtration rate ( GFR) estimation/1.73 sq m using serum, plasma, or whole bOrdered By: Montymaria e Clarke on 05-11-2025 GFR/1.73 sq M.predicted among non-blacks MDRD (S/P/Bld) [Vol rate/Area] 63 mL/min/{1.73_m2} >60 [facility] Comment on above: mL/min/1.73m2 CKD-EP I Creatinine Equation (2020) H AND P Exam - Hospitaliston 05-11-2025 H&P Exam - Hospitalist [facility] Medical Records Department [address] [place] [address] H P Exam - Hospitalist 05/11/251918 MR#: [id number] Acct: [id number] Name: CHERIITZEL A Rep #: [id number] : 1950 74 From: Lane Stanley DO PCP: Carelne N Adithya, POWER BARKER OPERATOR-C Status:ADM IN Location: [facility] [id number] HPI - General General Date of Admission: 05/11/25 Date of Service: 05/11/25 Chief Complaint: Worsening fatigue, weakness and confusion HPI Narrative ITZEL ALONZO, is a 74 M who presented to [facility] ED on 05/11/2025 with worsening fatigue, weakness and confusion. Patient has been seen in our ED recently but he receives his care through the OR. He was diagnosed with right-sided lung cancer about 1 year ago. It appears this diagnosis was confirmed on bronchial biopsy. Patient declined active treatment at that time and preferred close monitoring. However, patient has issues with transportation and has had difficulty getting to his appointments with oncology at the OR. He lives at home with his significant [...] phone with the transfer nurse with the OR liliana goodman. Nurse noted that transfer could be initiated there but as the admitting physician was gone for the day, transfer will not happen until tomorrow at the earliest. [facility] Medical History (Updated 05/12/25 @ 00:00 by [...] PO DAILY heart health Unknown History release budesonide-formoterol HFA 80 2 puff inhalation BID COPD [...] household members (more content not included)... Normal [facility] Hematocrit Auto (Bld) [Volum e fraction]Ordered By: Monty Clarke on 05-11-2025 Hematocrit (Bld) [Volume fraction] 28.9 % Low 40-54 [facility] Hemoglobin measurementOrdere d By: Montymaria e Clarke on 05-11-2025 Hemoglobin (Bld) [Mass/Vol] 8.7 g/dL Low 13.0-16.5 [facility] Immature granulocytes/100 WB C Auto (Bld)Ordered By: Monty Clarke on 05-11-2025 Immature granulocytes/100 WBC (Bld) 0.400 % 0.0-0.9 [facility] Comment on above: IG% - Immature Granu locytes (promyelocytes, myelocytes and metamyelocytes) > 1% indicates that a LEFT SHIFT is Present. L499.0042on 05-11-2025 Trop T High Sen 37 ng/L High <=22 [facility] Comment on above: Performed By: #### L 500.2500, L100.0100 #### [facility] [address] [place], [address] L499.0043on 05-11-2025 Trop T High Sen 39 ng/L High <=22 [facility] Comment on above: Performed By: #### L 501.080 #### [facility] [address] [place], [address] L501.4021on 05-11-2025 Trop T High Sen 39 ng/L High <=22 [facility] Comment on above: Performed By: #### L 501.4021 ####[facility] [address] [place], [address] Laboratory - Chemistry and C hemistry - challengeOrdered By: Monty Clarke on 05-11-2025 AST [Catalytic activity/Vol] 23 U/L <38 [facility] Lactic Acidon 05-11-2025 Lactate [Moles/Vol] 1.8 mmol/L Normal 0.0-2.0 [facility] Comment on above: Order Comment: Y Performed By: #### L 501.080 #### [facility] [address] [place], [place], [address] Lactic acid measurementOrder ed By: Monty Clarke on 05-11-2025 Lactate [Moles/Vol] 1.8 mmol/L 0.0-2.0 [facility] MCV (mean corpuscular volume ) determinationOrdered By: Monty Clarke on 05-11-2025 MCV (RBC) [Entitic vol] 66.4 fL Low 80-94 [facility] Mean corpuscular hemoglobin (MCH) determinationOrdered By: Montymaria e Clarke on 05-11-2025 MCH (RBC) [Entitic mass] 20.0 pg Low 27.0-32.0 [facility] Mean corpuscular hemoglobin concentration (MCHC) determinationOrdered By: Montymaria e Clarke on 05-11-2025 MCHC (RBC) [Mass/Vol] 30.1 g/dL Low 32-36 [facility] Mean platelet volume determi nationOrdered By: Montymaria e Clarke on 05-11-2025 Platelet mean volume (Bld) [Entitic vol] 9.5 fL 6.2-12.0 [facility] Monocyte percentageOrdered B y: Monty Clarke on 05-11-2025 Monocytes/100 WBC (Bld) 5.8 % 0-10 [facility] Neutrophil percentageOrdered By: Montymaria e Clarke on 05-11-2025 Neutrophils/100 WBC (Bld) 74.3 % High 47-70 [facility] Nucleated red blood cell per centageOrdered By: Montymaria e Clarke on 05-11-2025 Nucleated RBC/100 WBC (Bld) [Ratio] 0 % 0-5 [facility] Platelet countOrdered By: [facility] on 05-[facility]-2025 Platelets (Bld) [#/Vol] 404 10*3/uL 150-450 [facility] Potassium measurement (mass/ volume)Ordered By: Monty Clarke on 05-11-2025 Potassium (Unsp spec) [Mass/Vol] 3.5 mmol/L 3.3-5.1 [facility] RBC Auto (Bld) [#/Vol]Ordere d By: Monty Clarke on 05-11-2025 RBC (Bld) [#/Vol] 4.35 10*6/uL Low 4.6-6.2 [facility] Serum creatinine measurement (mass/volume)Ordered By: Monty Clarke on 05-11-2025 Creatinine [Mass/Vol] 1.20 mg/dL 0.70-1.20 [facility] Serum globulin measurementOr dered By: Monty Clarke on 05-11-2025 Globulin (S) [Mass/Vol] 4.2 g/dL 2.2-4.2 [facility] Serum glucose measurement (m ass/volume)Ordered By: Monty Clarke on 05-11-2025 Glucose [Mass/Vol] 244 mg/dL High 70-99 [facility] Serum or plasma alanine stahl otransferase (ALT) measurementOrdered By: Montymaria e Clarke on 05-11-2025 ALT [Catalytic activity/Vol] 12 U/L <47 [facility] Serum or plasma albumin ivania urement (mass/volume)Ordered By: Monty Clakre on 05-11-2025 Albumin [Mass/Vol] 3.3 g/dL Low 3.4-4.8 [facility] Serum or plasma albumin/glob ulin mass ratioOrdered By: Monty Clarke on 05-11-2025 Albumin/Globulin [Mass ratio] 0.8 {ratio} Low 0.9-2.4 [facility] Serum or plasma alkaline brittany sphatase measurementOrdered By: Monty Clarke on 05-11-2025 ALP [Catalytic activity/Vol] 128 U/L 40-129 [facility] Serum or plasma calcium ivania urement (mass/volume)Ordered By: Monty Clarke on 05-11-2025 Calcium [Mass/Vol] 11.2 mg/dL High 7.6-11.0 [facility] Serum or plasma urea nitroge n measurement (mass/volume)Ordered By: Monty Clarke on 05-11-2025 Urea nitrogen [Mass/Vol] 14 mg/dL 4-19 [facility] Sodium levelOrdered By: Monty Clarke on 05-11-2025 Sodium [Moles/Vol] 136 mmol/L 133-145 [facility] Stool Occult Blood iFOBon STOB Negative Normal [facility] Comment on above: Performed By: #### L 500.2500, L100.0100 #### [facility] [address] [place], [address] Stool gastrointestinal hemog lobin detection by immunologic methodOrdered By: Monty Clarke on 05-11-2025 Lower GI hemoglobin IA Ql (Stl) [facility] Total proteinOrdered By: Monty Clarke on 05-11-2025 Protein [Mass/Vol] 7.4 g/dL 5.9-8.4 [facility] Troponin T.cardiac [Mass/vol ume] in Serum or Plasma by High sensitivity methodOrdered By: Monty Clarke on 05-11-2025 Troponin T.cardiac High sensitivity method [Mass/Vol] 39 ng/L High <22 [facility] Troponin T.cardiac High sensitivity method [Mass/Vol] 37 ng/L High <22 [facility] [facility] T[facility] T.cardiac High sensitivity method [Mass/Vol] 39 ng/L High <22 [facility] Comment on above: Delta: 26 on 5-210 White blood cell (WBC) count Ordered By: Monty Clarke on 05-11-2025 WBC (Bld) [#/Vol] 11.6 10*3/uL High 4.4-11.0 [facility] 12 Lead EKGon 05-04-2025 12 Lead EKG [facility] Cardiovascular Services [address] [place] [address] 12 Lead EKG 05/04/25 1129 MR#: [id number] Acct: [id number] Name: ITZEL ALONZO Rep #: [id number] : 1950 74 From: Adams Connell MD [...] rhythm Normal ECG Confirmed by Adams Connell ([id number]), newspaper or periodical editor KATIE ABRAHAM ([id number]) on 05/06/2025 6:12:43 AM Referred By: Confirmed By: Adams Connell 05/06/25611 Date Adams Connell MD CC: POWER BARKER OPERATORNissa Haji; Dr. Ike Dawson, DO Signed Normal [facility] Absolute lymphocyte countOrd ered By: Ike Dawson on 05-04-2025 Lymphocytes Auto (Unsp spec) [#/Vol] 3.37 10*3/uL 0.83-4.51 [facility] Absolute neutrophil countOrd ered By: Ike Dawson on 05-04-2025 Neutrophils (Bld) [#/Vol] 7.0 10*3/uL 2.0-7.7 [facility] Activated partial thrombopla stin time (aPTT) in platelet poor plasma by coagulation aOrdered By: Ike Dawson on 05-04-2025 aPTT Coag (PPP) [Time] 31.9 s 24.1-36.2 [facility] Anion gap in Serum or Plasma Ordered By: Ike Dawson on 05-04-2025 Anion gap [Moles/Vol] 11 mmol/L 5-15 [facility] Automated lymphocyte count a s percentage of total leukocytesOrdered By: Ike Dawson on 05-04-2025 Lymphocytes/100 WBC Auto (Unsp spec) 29.4 % - [facility] BUN/creatinine ratioOrdered By: Ike Dawson on 05-04-2025 Urea nitrogen/Creatinine [Mass ratio] 16.9 mg/mg 09-13 [facility] Basic Metabolic Profile (BMP )on 05-04-2025 BUN/CRE 16.9 RATIO Normal 09-13 [facility] Comment on above: Performed By: #### L 501.080 #### [facility] Laboratory [facility] [place], [address] ECRCL 50.60 ml/min Normal 50-250 [facility] Comment on above: Performed By: #### L 501.080 #### [facility] Laboratory [address] [place], [address] GAP 11 Normal 5-15 [facility] Comment on above: Performed By: #### L 501.080 #### [facility] Laboratory [address] [place], [address] Potassium [Moles/Vol] 4.2 mmol/L Normal 3.3-5.1 [facility] Comment on above: Performed By: #### L 501.080 #### [facility] Laboratory [address] [place], [address] Basophil percentageOrdered B y: Ike Dawson on 05-04-2025 Basophils/100 WBC (Bld) 0.3 % 0-1 [facility] Blood polychromasia detectio n by light microscopyOrdered By: Ike Dawson on 05-04-2025 Polychromasia LM Ql (Bld) 1+ [facility] Brain/Head without Contrasto n 05-04-2025 Brain/Head without Contrast [facility] Imaging Services [address] [place], [place] [id number] Brain/Head without Contrast MR#: [id number] Acct: [id number] Name: ITZEL ALONZO Rep #: [id number] : 1950 M 74 From: Uche Kiser PCP: Carlene Haji POWER BARKER OPERATOR-René Status: REG ER Study: Brain/Head without Contrast Date of Exam: 04/25 Exam# [id number] Ordering Dr: Ike Dawson DO PROCEDURE: BRAIN/HEAD [...] or other acute process noted. Reading Location: [address] CC: SID Haji; Dr. Ike Dawson, Electronic Communications Technician: Signed Normal [facility] CBC W/Diff, AutomatedOrdered By: Ike Dawson on 05-04-2025 Anisocytosis Ql (Bld) 1+ Normal [facility] Comment on above: Performed By: #### L 501.080 #### [facility] Laboratory [address] [place], [address] CBC W/Diff, Automatedon 04-25 PLT EST A Normal ADEQ [facility] Comment on above: Performed By: #### L 501.080 #### [facility] Laboratory [address] [place], [address] POLYCHROMASIA 1+ Normal [facility] Comment on above: Performed By: #### L 501.080 #### [facility] Laboratory [address] [place], [address] Carbon dioxide, total [Moles /volume] in Central venous bloodOrdered By: Ike Dawson on 05-04-2025 CO2 [Moles/Vol] 27.6 mmol/L Normal 21.0-32.0 [facility] Comment on above: Performed By: #### L 501.080 #### [facility] Laboratory [address] [place], [address] Chest without Contraston Chest without Contrast [facility] Imaging Services [address] [place] [address] Chest without Contrast MR#: [id number] Acct: [id number] Name: ITZEL ALONZO Rep #: [id number] : 1950 M 74 From: Lion torres MD PCP: SID Haro Status: REG ER Study: Chest without Contrast Date of Exam: 05/04/25 Exam# [id number] Ordering Dr: Ike Dawson DO PROCEDURE: CHEST [...] at the right lung base. Reading Location: [place] [address] CC: POWER BARKER OPERATORNissa Haji; Dr. Ike Dawson DO Electronic Communications Technician: Signed Normal [facility] Chloride assayOrdered By: Jacinto Dawson on 05-04-2025 Chloride [Moles/Vol] 97 mmol/L Low 98-108 [facility] Comment on above: Performed By: #### L 501.080 #### [facility] Laboratory [address] [place], [address] Emergency Department Summary on 05-04-2025 Emergency Department Summary [facility] Medical Records Department [address] [place] [address] Emergency Department Summary 05/04/25 MR#: [id number] Acct: [id number] Name: ITZEL ALONZO Rep #: [id number] : 1950 74 From: Ike Nuñez PCP: Carlene Haji POWER BARKER OPERATOR-C Status:DEP ER Location: ED HPI HPI - [...] Been using intermittently [facility] Medical History Kidney stones Neuropathy PTSD [...] PO DAILY heart health Unknown History release budesonide-formoterol HFA 80 2 puff inhalation BID COPD [...] well no (more content not included)... Normal [facility] Eosinophil percentageOrdered By: Ike Dawson on 05-04-2025 Eosinophils/100 WBC (Bld) 1.5 % 0-5 [facility] Erythrocyte distribution wid th ratioOrdered By: Ike Dawson on 05-04-2025 Erythrocyte distribution width (RBC) [Ratio] 20.1 % High 11.6-14.6 [facility] Erythrocyte distribution wid th standard deviationOrdered By: Ike Dawson on 05-04-2025 Erythrocyte distribution width (RBC) [Ratio] 45.7 fl High 35.1-43.9 [facility] Glomerular filtration rate ( GFR) estimation/1.73 sq m using serum, plasma, or whole bOrdered By: Ike Dawson on 05-04-2025 GFR/1.73 sq M.predicted among non-blacks MDRD (S/P/Bld) [Vol rate/Area] 67 mL/min/{1.73_m2} Normal >60 [facility] Comment on above: mL/min/1.73m2 CKD-EP I Creatinine Equation (2020) Result Comment: mL/m in/1.73m2 CKD-EPI Creatinine Equation (2020) Performed By: #### L 501.080 #### [facility] Laboratory [address] [place], [address] Hematocrit Auto (Bld) [Volum e fraction]Ordered By: Ike Dawson on 05-04-2025 Hematocrit (Bld) [Volume fraction] 32.4 % Low 40-54 [facility] Hemoglobin measurementOrdere d By: Ike Dawson on 05-04-2025 Hemoglobin (Bld) [Mass/Vol] 9.8 g/dL Low 13.0-16.5 [facility] Immature granulocytes/100 WB C Auto (Bld)Ordered By: Ike Dawson on 05-04-2025 Immature granulocytes/100 WBC (Bld) 0.500 % 0.0-0.9 [facility] Comment on above: IG% - Immature Granu locytes (promyelocytes, myelocytes and metamyelocytes) > 1% indicates that a LEFT SHIFT is Present. International normalized rat io (INR) calculationOrdered By: Ike Dawson on 05-04-2025 INR Coag (Bld) [Relative time] 1.1 {INR} [facility] MCV (mean corpuscular volume ) determinationOrdered By: Ike Dawson on 05-04-2025 MCV (RBC) [Entitic vol] 65.9 fL Low 80-94 [facility] Mean corpuscular hemoglobin (MCH) determinationOrdered By: Ike Dawson on 05-04-2025 MCH (RBC) [Entitic mass] 19.9 pg Low 27.0-32.0 [facility] Mean corpuscular hemoglobin concentration (MCHC) determinationOrdered By: Ike Dawson on 05-04-2025 MCHC (RBC) [Mass/Vol] 30.2 g/dL Low 32-36 [facility] Mean platelet volume determi nationOrdered By: Ike Dawson on 05-04-2025 Platelet mean volume (Bld) [Entitic vol] 9.9 fL 6.2-12.0 [facility] Monocyte percentageOrdered B y: Ike Dawson on 05-04-2025 Monocytes/100 WBC (Bld) 6.9 % 0-10 [facility] Neutrophil percentageOrdered By: Ike Dawson on 05-04-2025 Neutrophils/100 WBC (Bld) 61.4 % 47-70 [facility] Nucleated red blood cell per centageOrdered By: Ike Dawson on 05-04-2025 Nucleated RBC/100 WBC (Bld) [Ratio] 0 % 0-5 [facility] Partial Thromboplast Timeon 05-04-2025 aPTT Coag (Bld) [Time] 31.9 s Normal 24.1-36.2 [facility] Comment on above: Performed By: #### L 501.080 #### [facility] Laboratory [address] [place], [address] Platelet countOrdered By: Jacinto Dawson on 05-04-2025 Platelets (Bld) [#/Vol] 412 10*3/uL 150-450 [facility] Platelet estimateOrdered By: Ike Dawson on 05-04-2025 Platelets LM Ql (Bld) A ADEQ [facility] Potassium measurement (mass/ volume)Ordered By: Ike Dawson on 05-04-2025 Potassium (Unsp spec) [Mass/Vol] 4.2 mmol/L 3.3-5.1 [facility] Prothrombin Time w/INRon INR Coag (PPP) [Relative time] 1.1 {INR} Normal [facility] Comment on above: Performed By: #### L 501.080 #### [facility] Laboratory [address] [place], [address] Prothrombin timeOrdered By: Ike Dawson on 05-04-2025 PT Coag (PPP) [Time] 14.8 s Normal 11.7-14.9 [facility] Comment on above: Performed By: #### L 501.080 #### [facility] Laboratory [address] [place], [address] RBC Auto (Bld) [#/Vol]Ordere d By: Ike Dawson on 05-04-2025 RBC (Bld) [#/Vol] 4.92 10*6/uL 4.6-6.2 [facility] Serum creatinine measurement (mass/volume)Ordered By: Ike Dawson on 05-04-2025 Creatinine [Mass/Vol] 1.14 mg/dL Normal 0.70-1.20 [facility] Comment on above: Performed By: #### L 501.080 #### [facility] Laboratory [address] [place], [address] Serum glucose measurement (m ass/volume)Ordered By: Ike Eunice on 05-04-2025 Glucose [Mass/Vol] 229 mg/dL High 70-99 [facility] Comment on above: Performed By: #### L 501.080 #### [facility] Laboratory [address] [place], [address] Serum or plasma calcium ivania urement (mass/volume)Ordered By: Ike Eunice on 05-04-2025 Calcium [Mass/Vol] 12.2 mg/dL High 7.6-11.0 [facility] Comment on above: Performed By: #### L 501.080 #### [facility] Laboratory [address] [place], [address] Serum or plasma urea nitroge n measurement (mass/volume)Ordered By: Ike Eunice on 05-04-2025 Urea nitrogen [Mass/Vol] 19 mg/dL Normal 4-19 [facility] Comment on above: Performed By: #### L 501.080 #### [facility] Laboratory [address] [place], [address] Shoulder min 2 Viewson 05-04 Shoulder min 2 Views [facility] Imaging Services [address] [place] [address] Shoulder min 2 Views MR#: [id number] Acct: [id number] Name: ITZEL ALONZO Rep #: [id number] : 1950 M 74 From: Lion torres MD PCP: Carlene Haji POWER BARKER OPERATORNissa Status: REG ER Study: Shoulder min 2 Views Date of Exam: 05/04/25 Exam# [id number] Ordering Dr: Ike Dawson DO PROCEDURE: SHOULDER [...] with a CT scan recommended. Reading Location: [place] [address] CC: POWER BARKER OPERATOROnurC Carlene Haji; Dr. Ike Dawson DO Electronic Communications Technician: Signed Normal [facility] Sodium levelOrdered By: Ike Dawson on 05-04-2025 Sodium [Moles/Vol] 136 mmol/L Normal 133-145 [facility] Comment on above: Performed By: #### L 501.080 #### [facility] Laboratory [address] [facility], [address] Spine Cervical without Contr ason 05-04-2025 Spine Cervical without Contras [facility] Imaging Services [address] [place] [address] Spine Cervical without Contras MR#: [id number] Acct: [id number] Name: ITZEL ALONZO Rep #: [id number] : 1950 M 74 From: Lion torres MD PCP: Carlene Haji, POWER BARKER OPERATOR-C Status: REG ER Study: Spine Cervical without Contras Date of Exam: 0 05/04/25 Exam# [id number] Ordering Dr: Ike Dawson DO PROCEDURE: SPINE [...] Right upper lobe pulmonary mass. Reading Location: [place] [address] CC: SID Haji; Dr. Ike Dawson, Electronic Communications Technician: Signed Normal [facility] White blood cell (WBC) count Ordered By: Ike Dawson on 05-04-2025 WBC (Bld) [#/Vol] 11.5 10*3/uL High 4.4-11.0 [facility] Bedside Glucoseon 04-24-2025 FINGERSTICK GLU 137 mg/dL High 74-106 [facility] Comment on above: Result Comment: BELLA GEMENT OF PATIENT CARE PER NURSING PROTOCOL Performed By: #### L 501.080 #### [facility] Laboratory [address] [place], [address] Glucose measurement at bedsi deOrdered By: Steven Tejeda on 04-24-2025 Glucose [Mass/Vol] 137 mg/dL High 74-106 [facility] Comment on above: MANAGEMENT OF PATIEN T CARE PER NURSING PROTOCOL L499.0043on 04-24-2025 Trop T High Sen Normal <=22 [facility] Comment on above: Result Comment: Asif espitia via OM: Ordered Performed By: #### L 500.2500, L100.0100 #### [facility] Laboratory [address] [place], [address] 12 Lead EKGon 04-23-2025 12 Lead EKG [facility] Cardiovascular Services [address] [address] 12 Lead EKG 04/23/25 2145 MR#: [id number] Acct: [id number] Name: ITZEL ALONZO Rep #: [id number] : 1950 74 From: Adams Connell MD [...] Normal ECG Confirmed by Adams Connell ([id number]), newspaper or periodical editor KATIE ABRAHAM ([id number]) on 04/26/2025 10:51:11 AM Referred By: Confirmed By: Adams Connell 04/26/25 1051 Date Adams Connell MD CC: SID Haji; Dr. Steven Tejeda DO Signed Normal [facility] Absolute lymphocyte countOrd ered By: Steven Tejeda on 04-23-2025 Lymphocytes Auto (Unsp spec) [#/Vol] 3.56 10*3/uL 0.83-4.51 [facility] Absolute neutrophil countOrd ered By: Steven Tejeda on 04-23-2025 Neutrophils (Bld) [#/Vol] 8.4 10*3/uL High 2.0-7.7 [facility] Activated partial thrombopla stin time (aPTT) in platelet poor plasma by coagulation aOrdered By: Steven Tejeda on 04-23-2025 aPTT Coag (PPP) [Time] 27.9 s 24.1-36.2 [facility] Anion gap in Serum or Plasma Ordered By: Steven Tejeda on 04-23-2025 Anion gap [Moles/Vol] 11 mmol/L 5-15 [facility] Automated lymphocyte count a s percentage of total leukocytesOrdered By: Steven Tejeda on 04-23-2025 Lymphocytes/100 WBC Auto (Unsp spec) 27.6 % 19-41 [facility] BUN/creatinine ratioOrdered By: Steven Tejeda on 04-23-2025 Urea nitrogen/Creatinine [Mass ratio] 20.6 mg/mg High 10-20 [facility] Basic Metabolic Profile (BMP )on 04-23-2025 BUN/CRE 20.6 RATIO High - [facility] Comment on above: Performed By: #### L 501.080 #### [facility] Laboratory [address] [place], [address] Calcium [Mass/Vol] 10.3 mg/dL Normal 7.6-11.0 [facility] Comment on above: Performed By: #### L 501.080 #### [facility] Laboratory [address] [place], [address] Chloride [Moles/Vol] 101 mmol/L Normal 98-108 [facility] Comment on above: Performed By: #### L 501.080 #### [facility] Laboratory [address] [place], [address] CO2 [Moles/Vol] 22.9 mmol/L Normal 21.0-32.0 [facility] Comment on above: Performed By: #### L 501.080 #### [facility] Laboratory [address] [place], [address] Creatinine [Mass/Vol] 0.96 mg/dL Normal 0.70-1.20 [facility] Comment on above: Performed By: #### L 501.080 #### [facility] Laboratory [address] [place], [address] ECRCL 66.44 ml/min Normal 50-250 [facility] Comment on above: Performed By: #### L 501.080 #### [facility] Laboratory [address] [place], [address] GAP 11 Normal 5-15 [facility] Comment on above: Performed By: #### L 501.080 #### [facility] Laboratory [address] [place], [address] GFR/1.73 sq M.predicted among non-blacks MDRD (S/P/Bld) [Vol rate/Area] 82 mL/min/{1.73_m2} Normal >60 [facility] Comment on above: Result Comment: mL/m in/1.73m2 CKD-EPI Creatinine Equation (2020) Performed By: #### L 501.080 #### [facility] Laboratory [address] [place], [address] Glucose [Mass/Vol] 292 mg/dL High 70-99 [facility] Comment on above: Performed By: #### L 501.080 #### [facility] Laboratory [address] [place], [address] Potassium [Moles/Vol] 3.9 mmol/L Normal 3.3-5.1 [facility] Comment on above: Performed By: #### L 501.080 #### [facility] Laboratory [address] [place], [address] Sodium [Moles/Vol] 134 mmol/L Normal 133-145 [facility] Comment on above: Performed By: #### L 501.080 #### [facility] Laboratory [address] [place], [address] Urea nitrogen [Mass/Vol] 20 mg/dL High 4-19 [facility] Comment on above: Performed By: #### L 501.080 #### [facility] Laboratory [address] [place], [address] Basophil percentageOrdered B y: Steven Tejeda on 04-23-2025 Basophils/100 WBC (Bld) 0.2 % 0-1 [facility] CBC W/Diff, Automatedon 03-27 0-2024 Absolute Lymph 3.56 X10 3/uL Normal 0.83-4.51 [facility] Comment on above: Performed By: #### L 501.080 #### [facility] Laboratory [address] [place], [address] Absolute Neut 8.4 X10 3/uL High 2.0-7.7 [facility] Comment on above: Performed By: #### L 501.080 #### [facility] Laboratory [address] [place], [address] Basophils/100 WBC (Bld) 0.2 % Normal 0-1 [facility] Comment on above: Performed By: #### L 501.080 #### [facility] Laboratory [address] [place], [address] Eosinophils/100 WBC (Bld) 1.9 % Normal 0-5 [facility] Comment on above: Performed By: #### L 501.080 #### [facility] Laboratory [address] [place], [address] Erythrocyte distribution width (RBC) [Ratio] 19.0 % High 11.6-14.6 [facility] Comment on above: Performed By: #### L 501.080 #### [facility] Laboratory [address] [place], [address] Hematocrit (Bld) [Volume fraction] 31.1 % Low 40-54 [facility] Comment on above: Performed By: #### L 501.080 #### [facility] Laboratory [address] [place], [address] Hemoglobin (Bld) [Mass/Vol] 9.3 g/dL Low 13.0-16.5 [facility] Comment on above: Performed By: #### L 501.080 #### [facility] Laboratory [address] [place], [address] IG% 0.500 Normal 0.0-0.9 [facility] Comment on above: Result Comment: IG% - Immature Granulocytes (promyelocytes, myelocytes and metamyelocytes) > 1% indicates that a LEFT SHIFT is Present. Performed By: #### L 501.080 #### [facility] Laboratory [address] [facility] [place], [address] Lymphocytes/100 WBC (Bld) 27.6 % Normal 19-41 [facility] Comment on above: Performed By: #### L 501.080 #### [facility] Laboratory [address] [place], [address] MCH (RBC) [Entitic mass] 19.7 pg Low 27.0-32.0 [facility] Comment on above: Performed By: #### L 501.080 #### [facility] Laboratory [address] [place], [address] MCHC (RBC) [Mass/Vol] 29.9 g/dL Low 32-36 [facility] Comment on above: Performed By: #### L 501.080 #### [facility] Laboratory [address] [place], [address] MCV (RBC) [Entitic vol] 66.0 fL Low 80-94 [facility] Comment on above: Performed By: #### L 501.080 #### [facility] Laboratory [address] [place], [address] Monocytes/100 WBC (Bld) 4.9 % Normal 0-10 [facility] Comment on above: Performed By: #### L 501.080 #### [facility] Laboratory [address] [place], [address] Neutrophils/100 WBC (Bld) 64.9 % Normal 47-70 [facility] Comment on above: Performed By: #### L 501.080 #### [facility] Laboratory [address] [place], [address] Nucleated RBC (Bld) [#/Vol] 0 10*3/uL Normal 0-5 [facility] Comment on above: Performed By: #### L 501.080 #### [facility] Laboratory [address] [place], [address] Platelet mean volume (Bld) [Entitic vol] 9.4 fL Normal 6.2-12.0 [facility] Comment on above: Performed By: #### L 501.080 #### [facility] Laboratory [address] [place], [address] Platelets (Bld) [#/Vol] 350 10*3/uL Normal 150-450 [facility] Comment on above: Performed By: #### L 501.080 #### [facility] Laboratory [address] [place], [address] RBC (Bld) [#/Vol] 4.71 10*6/uL Normal 4.6-6.2 [facility] Comment on above: Performed By: #### L 501.080 #### [facility] Laboratory [address] [place], [address] RDW SD 43.6 fl Normal 35.1-43.9 [facility] Comment on above: Performed By: #### L 501.080 #### [facility] Laboratory [address] [place], [address] WBC (Bld) [#/Vol] 12.9 10*3/uL High 4.4-11.0 [facility] Comment on above: Performed By: #### L 501.080 #### [facility] Laboratory [address] [facility] [place], [address] Carbon dioxide, total [Moles /volume] in Central venous bloodOrdered By: Steven Tejeda on 04-23-2025 CO2 [Moles/Vol] 22.9 mmol/L 21.0-32.0 [facility] Chest 1 View (Portable)on Chest 1 View (Portable) [facility] Imaging Services [address] [place] [address] Chest 1 View (Portable) MR#: [id number] Acct: [id number] Name: ITZEL ALONZO Rep #: [id number] : 1950 M 74 From: Deonte Perez MD PCP: Carlene Haji NP-C Status: REG ER Study: Chest 1 View (Portable) Date of Exam: 04/23/25 Exam# [id number] Ordering Dr: Steven Tejeda DO PROCEDURE: CHEST [...] regions which may represent adenopathy. Reading Location: [id number] CC: POWER BARKER OPERATOR-C Carlene Haji; Dr. Steven Tejeda DO Electronic Communications Technician: Signed Normal [facility] [facility] Chloride assayOrdered By: Emil Tejeda on 04-23-2025 Chloride [Moles/Vol] 101 mmol/L 98-108 [facility] Emergency Department Summary on 04-23-2025 Emergency Department Summary [facility] Medical Records Department [address] [place] [id number] Emergency Department Summary 04/23/25 MR#: [id number] Acct: [id number] Name: ITZEL ALONZO Rep #: [id number] : 1950 74 From: Steven Tejeda DO PCP: LUIS MIGUEL HaroC Status:DEP ER Location: ED HPI History of [...] lung cancer in his right lung. [facility] Medical History Kidney stones Neuropathy PTSD (post-traumatic [...] PO DAILY heart health Unknown History release budesonide-formoterol HFA 80 2 puff inhalation BID COPD [...] to obtaining)] (more content not included)... Normal [facility] Eosinophil percentageOrdered By: Steven Tejeda on 04-23-2025 Eosinophils/100 WBC (Bld) 1.9 % 0-5 [facility] Erythrocyte distribution wid th ratioOrdered By: Steven Tejeda on 04-23-2025 Erythrocyte distribution width (RBC) [Ratio] 19.0 % High 11.6-14.6 [facility] Erythrocyte distribution wid th standard deviationOrdered By: Steven Tejeda on 04-23-2025 Erythrocyte distribution width (RBC) [Ratio] 43.6 fl 35.1-43.9 [facility] Glomerular filtration rate ( GFR) estimation/1.73 sq m using serum, plasma, or whole bOrdered By: Steven Tejeda on 04-23-2025 GFR/1.73 sq M.predicted among non-blacks MDRD (S/P/Bld) [Vol rate/Area] 82 mL/min/{1.73_m2} >60 [facility] Comment on above: mL/min/1.73m2 CKD-EP I Creatinine Equation (2020) Hematocrit Auto (Bld) [Volum e fraction]Ordered By: Steven Tejdea on 04-23-2025 Hematocrit (Bld) [Volume fraction] 31.1 % Low 40-54 [facility] Hemoglobin measurementOrdere d By: Steven Tejeda on 04-23-2025 Hemoglobin (Bld) [Mass/Vol] 9.3 g/dL Low 13.0-16.5 [facility] Immature granulocytes/100 WB C Auto (Bld)Ordered By: Steven Tejeda on 04-23-2025 Immature granulocytes/100 WBC (Bld) 0.500 % 0.0-0.9 [facility] Comment on above: IG% - Immature Granu locytes (promyelocytes, myelocytes and metamyelocytes) > 1% indicates that a LEFT SHIFT is Present. International normalized rat io (INR) calculationOrdered By: Steven Tejeda on 04-23-2025 INR Coag (Bld) [Relative time] 1.1 {INR} [facility] L499.0042on 04-23-2025 Trop T High Sen 27 ng/L High <=22 [facility] Comment on above: Performed By: #### L 500.2500, L100.0100 #### [facility] [address] [facility] [place], [place], [address] L501.4021on 04-23-2025 Trop T High Sen 26 ng/L High <=22 [facility] Comment on above: Performed By: #### L 501.080 #### [facility] [address] [place], [place], [id number] MCV (mean corpuscular volume ) determinationOrdered By: Steven Tejeda on 04-23-2025 MCV (RBC) [Entitic vol] 66.0 fL Low 80-94 [facility] Mean corpuscular hemoglobin (MCH) determinationOrdered By: Steven Tejeda on 04-23-2025 MCH (RBC) [Entitic mass] 19.7 pg Low 27.0-32.0 [facility] Mean corpuscular hemoglobin concentration (MCHC) determinationOrdered By: Steven Tejeda on 04-23-2025 MCHC (RBC) [Mass/Vol] 29.9 g/dL Low 32-36 [facility] Mean platelet volume determi nationOrdered By: Steven Tejeda on 04-23-2025 Platelet mean volume (Bld) [Entitic vol] 9.4 fL 6.2-12.0 [facility] Monocyte percentageOrdered B y: Steven Tejeda on 04-23-2025 Monocytes/100 WBC (Bld) 4.9 % 0-10 [facility] Neutrophil percentageOrdered By: Steven Tejeda on 04-23-2025 Neutrophils/100 WBC (Bld) 64.9 % 47-70 [facility] Nucleated red blood cell per centageOrdered By: Steven Tejeda on 04-23-2025 Nucleated RBC/100 WBC (Bld) [Ratio] 0 % 0-5 [facility] Partial Thromboplast Timeon 04-23-2025 aPTT Coag (Bld) [Time] 27.9 s Normal 24.1-36.2 [facility] Comment on above: Performed By: #### L 501.080 #### [facility] [address] [place], [address] Platelet countOrdered By: Emil Tejeda on 04-23-2025 Platelets (Bld) [#/Vol] 350 10*3/uL 150-450 [facility] Potassium measurement (mass/ volume)Ordered By: Steven Tejeda on 04-23-2025 Potassium (Unsp spec) [Mass/Vol] 3.9 mmol/L 3.3-5.1 [facility] Prothrombin Time w/INRon INR Coag (PPP) [Relative time] 1.1 {INR} Normal [facility] Comment on above: Performed By: #### L 501.080 #### [facility] [address] [place], [address] PT Coag (PPP) [Time] 14.2 s Normal 11.7-14.9 [facility] Comment on above: Performed By: #### L 501.080 #### [facility] [address] [place], [address] Prothrombin timeOrdered By: Steven Tejeda on 04-23-2025 PT Coag (PPP) [Time] 14.2 s 11.7-14.9 [facility] RBC Auto (Bld) [#/Vol]Ordere d By: Steven Tejeda on 04-23-2025 RBC (Bld) [#/Vol] 4.71 10*6/uL 4.6-6.2 [facility] STROKE Brain/Head without Co nton 04-23-2025 STROKE Brain/Head without Cont [facility] Imaging Services [address] [place] [address] STROKE Brain/Head without Cont MR#: [id number] Acct: [id number] Name: ITZEL ALONZO Rep #: [id number] : 1950 M 74 From: Deonte Perez MD PCP: SID Haro Status: REG ER Study: STROKE Brain/Head without Cont Date of Exam: 0 04/23/25 Exam# [id number] Ordering Dr: Steven Tejeda DO PROCEDURE: STROKE [...] atrophy and chronic microvascular ischemia. Reading Location: [place] [address] CC: SID Haji; Dr. Steven Tejeda DO Electronic Communications Technician: Signed Normal [facility] STROKE CTA Head AND Neck W/C onon 04-23-2025 STROKE CTA Head AND Neck W/Con [facility] Imaging Services [address] [place] [address] STROKE CTA Head AND Neck W/Con MR#: [id number] Acct: [id number] Name: ITZEL ALONZO Rep #: [id number] : 1950 M 74 From: Deonte Perez MD PCP: SID Haro Status: REG ER Study: STROKE CTA Head AND Neck W/Con Date of Exam: 0 04/23/25 Exam# [id number] Ordering Dr: Steven Tejeda DO PROCEDURE: STROKE [...] occluded similar to the prior CTA. Anatomy: [place] anatomy is normal. Aneurysm or [...] apical mass suspicious for malignancy. Reading Location: [id number] CC: SID Haji; Dr. Steven Tejeda DO Electronic Communications Technician: Signed Normal [facility] Serum creatinine measurement (mass/volume)Ordered By: Steven Tejeda on 04-23-2025 Creatinine [Mass/Vol] 0.96 mg/dL 0.70-1.20 [facility] Serum glucose measurement (m ass/volume)Ordered By: Steven Tejeda on 04-23-2025 Glucose [Mass/Vol] 292 mg/dL High 70-99 [facility] Serum or plasma calcium ivania urement (mass/volume)Ordered By: Steven Tejeda on 04-23-2025 Calcium [Mass/Vol] 10.3 mg/dL 7.6-11.0 [facility] Serum or plasma urea nitroge n measurement (mass/volume)Ordered By: Steven Tejeda on 04-23-2025 Urea nitrogen [Mass/Vol] 20 mg/dL High 4-19 [facility] Sodium levelOrdered By: Steven Tejeda on 04-23-2025 Sodium [Moles/Vol] 134 mmol/L 133-145 [facility] Troponin T.cardiac [Mass/vol ume] in Serum or Plasma by High sensitivity methodOrdered By: Steven Tejeda on 04-23-2025 Troponin T.cardiac High sensitivity method [Mass/Vol] 27 ng/L High <22 [facility] Troponin T.cardiac High sensitivity method [Mass/Vol] 26 ng/L High <22 [facility] White blood cell (WBC) count Ordered By: Steven Tejeda on 04-23-2025 WBC (Bld) [#/Vol] 12.9 10*3/uL High 4.4-11.0 [facility] Bedside Glucoseon 12-12-2024 FINGERSTICK GLU 358 mg/dL High 74-106 [facility] Comment on above: Result Comment: BELLA PENALOZA OF PATIENT CARE PER NURSING PROTOCOL Performed By: #### L 501.080 #### [facility] [address] [facility], [address] Emergency Department Summary on 12-12-2024 Emergency Department Summary [facility] Medical Records Department [address] [facility] [place] [address] Emergency Department Summary 12/12/24 MR#: [id number] Acct: [id number] Name: ITZEL ALONZO Carlie Rep #: [id number] : 1950 74 From: Juvencio Shen MD PCP: [facility] Status:DEP ER Location: ED HPI History of Present Illness Chief Complaint: General Illness Narrative Narrative: Patient is a 74-year-old male with history of homelessness, anxiety, depression, PTSD, [facility], and per the patient has history of lung cancer of the right lung. Patient states that [place] last 6 to 7 months. He called the nurse hotline today, because he has been having some troubles with his fear secondary to his PTSD, he is having difficulty dealing with the [place] the [facility] secondary to his family being there. He [...] is mostly here because of frustration. [facility] Medical History (Updated 12/12/24 @ 13:26 by [...] DAILY heart health 05/09/21 Unknown History release budesonide-formoterol HFA 80 2 puff inhalation BID COPD [...] to auscult (more content not included)... Normal [facility] Vital Signs Date Time Vital Sign Value Performing Clinician Facility 07-08-2025 14:00-0400 Diastolic blood pressure 81 mm[Hg] Dr. Steven Tejeda DO Work Phone: 0(554)956-970849 [place] [address] 07-08-2025 14:00-0400 Heart rate 101 /min Dr. Steven Tejeda DO Work Phone: 0(577)831-888726 [place] [address] 07-08-2025 14:00-0400 Respiratory rate 19 /min Dr. Steven Tejeda DO Work Phone: 7(377)276-240926 [place] [address] 07-08-2025 14:00-0400 SaO2% (BldA) [Mass fraction] 100 % Dr. Steven Tejeda DO Work Phone: 0(505)393-744826 [place] [address] 07-08-2025 14:00-0400 Systolic blood pressure 130 mm[Hg] Dr. Steven Tejeda DO Work Phone: 3(414)588-964426 [place] [address] 07-08-2025 13:59-0400 Body temperature 98.7 [degF] Dr. Steven Tejeda DO Work Phone: 5(453)353-795526 [place] [address] 07-08-2025 10:55-0400 Body height 182.[address] Steven Tejeda DO Work Phone: 0(169)872-532326 [place] [address] 07-08-2025 10:55-0400 Body mass index (BMI) [Ratio] 22.3 kg/m2 Dr. Steven Tejeda DO Work Phone: 3(039)834-231026 [place] [address] 07-08-2025 10:55-0400 Body weight 74.[address] Steven Tejeda DO Work Phone: 7(213)985-105926 [place] [address] 07-07-2025 09:32-0400 Inhaled oxygen flow rate 2 L/min Dr. Steven Tejeda DO Work Phone: 5(679)392-138726 [place] [address] 07-07-2025 07:46-0400 SaO2% (BldA) [Mass fraction] 91 % Dr. Steven Tejeda DO Work Phone: 6(170)004-460349 [place] [address] 07-07-2025 07:10-0400 Heart rate 101 /min Dr. Steven Tejeda DO Work Phone: 9(482)828-528726 [place] [address] 07-07-2025 07:10-0400 Respiratory rate 18 /min Dr. Steven Tejeda DO Work Phone: 1(983)509-558126 [place] [address] 07-07-2025 05:36-0400 Body mass index (BMI) [Ratio] 17.4 kg/m2 Dr. Steven Tejeda DO Work Phone: 4(255)295-867226 [place] [address] 07-07-2025 05:36-0400 Body weight 59.[address] Steven Tejeda DO Work Phone: 4(459)916-395326 [place] [address] 07-06-2025 22:04-0400 Body temperature 98.9 [degF] Dr. Steven Tejeda DO Work Phone: 4(321)655-020626 [place] [address] 07-06-2025 22:04-0400 Diastolic blood pressure 94 mm[Hg] Dr. Steven Tejeda DO Work Phone: 7(152)425-540226 [place] [address] 07-06-2025 22:04-0400 Systolic blood pressure 146 mm[Hg] Dr. Steven Tejeda DO Work Phone: 0(626)217-052326 [place] [address] 07-05-2025 21:24-0400 Inhaled oxygen concentration 2 % Dr. Steven Tejeda DO Work Phone: 6(116)994-073326 [place] [address] 07-05-2025 10:29-0400 Body height 185.[address] Steven Tejeda DO Work Phone: 4(510)073-185949 [place] [address] 07-03-2025 23:03-0400 Body temperature 98.3 [degF] Dr. Steven Tejeda DO Work Phone: 2(577)067-945949 [place] [address] 07-03-2025 23:03-0400 Diastolic blood pressure 90 mm[Hg] Dr. Steven Tejeda DO Work Phone: 2(469)220-941126 [place] [address] 07-03-2025 23:03-0400 Heart rate 115 /min Dr. Steven Tejeda DO Work Phone: 3(580)722-903249 [place] [address] 07-03-2025 23:03-0400 Respiratory rate 22 /min Dr. Steven Tejeda DO Work Phone: [facility] 07-03-2025 23:03-0400 SaO2% (BldA) [Mass fraction] 96 % Dr. Steven Tejeda DO Work Phone: [facility] 07-03-2025 23:03-0400 Systolic blood pressure 160 mm[Hg] Dr. Steven Tejeda DO Work Phone: 6(674)809-215949 [place] [address] 07-03-2025 19:10-0400 Body height 185.[address] Steven Tejeda DO Work Phone: 1(858)212-128549 [place] [address] 07-03-2025 19:10-0400 Body mass index (BMI) [Ratio] 18.8 kg/m2 Dr. Steven Tejeda DO Work Phone: 2(756)719-159049 [place] [address] 07-03-2025 19:10-0400 Body weight 64.[address] Steven Tejeda DO Work Phone: 0(499)495-444349 [place] [address] 05-13-2025 13:11-0400 Body temperature 97.8 [degF] Dr. Steven Tejeda DO Work Phone: 5(137)439-692449 [place] [address] 05-13-2025 13:11-0400 Diastolic blood pressure 72 mm[Hg] Dr. Steven Tejeda DO Work Phone: [facility] 05-13-2025 13:11-0400 Heart rate 90 /min Dr. Steven Tejeda DO Work Phone: [facility] 05-13-2025 13:11-0400 Respiratory rate 12 /min Dr. Steven Tejeda DO Work Phone: [facility] 05-13-2025 13:11-0400 SaO2% (BldA) [Mass fraction] 95 % Dr. Steven Tejeda DO Work Phone: [facility] 05-13-2025 13:11-0400 Systolic blood pressure 140 mm[Hg] Dr. Steven Tejeda DO Work Phone: 1(448)469-636749 [place] [address] 05-13-2025 12:40-0400 Inhaled oxygen flow rate 2 L/min Dr. Steven Tejeda DO Work Phone: 0(009)092-687449 [place] [address] 05-12-2025 11:06-0400 Body height 185.[address] Steven Tejeda DO Work Phone: 9(858)334-284326 [place] [address] 05-12-2025 11:06-0400 Body weight 64.[address] Steven Tejeda DO Work Phone: 9(440)091-567426 [place] [address] 05-11-2025 20:16-0400 Body mass index (BMI) [Ratio] 18.7 kg/m2 Dr. Steven Tejeda DO Work Phone: 3(157)773-406926 [place] [address] 05-11-2025 19:29-0400 Body temperature 98.6 [degF] Dr. Steven Tejeda DO Work Phone: 0(450)055-973449 [place] [address] 05-11-2025 19:29-0400 Diastolic blood pressure 85 mm[Hg] Dr. Steven Tejeda DO Work Phone: 1(792)020-449326 [place] [address] 05-11-2025 19:29-0400 Heart rate 99 /min Dr. Steven Tejeda DO Work Phone: 4(543)696-446649 [place] [address] 05-11-2025 19:29-0400 Respiratory rate 24 /min Dr. Steven Tejeda DO Work Phone: 1(993)975-541149 [place] [address] 05-11-2025 19:29-0400 SaO2% (BldA) [Mass fraction] 95 % Dr. Steven Tejeda DO Work Phone: 1(540)348-360949 [place] [address] 05-11-2025 19:29-0400 Systolic blood pressure 154 mm[Hg] Dr. Steven Tejeda DO Work Phone: 5(909)796-588549 [place] [address] 05-11-2025 14:09-0400 Body mass index (BMI) [Ratio] 19.2 kg/m2 Dr. Steven Tejeda DO Work Phone: 4(716)438-317749 [place] [address] 05-11-2025 14:09-0400 Body weight 66.[address] Steven Tejeda DO Work Phone: 3(390)626-190149 [place] [address] 05-11-2025 14:05-0400 Body height 185.[address] Steven Tejeda DO Work Phone: 5(702)904-106826 [place] [address] 05-04-2025 14:54-0400 Body temperature 98.3 [degF] Dr. Steven Tejeda DO Work Phone: 9(124)406-985126 [place] [address] 05-04-2025 14:54-0400 Diastolic blood pressure 88 mm[Hg] Dr. Steven Tejeda DO Work Phone: 5(857)972-409726 [place] [address] 05-04-2025 14:54-0400 Heart rate 91 /min Dr. Steven Tejeda DO Work Phone: 9(292)895-654026 [place] [address] 05-04-2025 14:54-0400 Respiratory rate 16 /min Dr. Steven Tejeda DO Work Phone: 0(779)814-893526 [place] [address] 05-04-2025 14:54-0400 SaO2% (BldA) [Mass fraction] 98 % Dr. Steven Tejeda DO Work Phone: 3(913)524-675126 [place] [address] 05-04-2025 14:54-0400 Systolic blood pressure 146 mm[Hg] Dr. Steven Tejeda DO Work Phone: 4(195)379-697826 [place] [address] 05-04-2025 11:22-0400 Inhaled oxygen flow rate 97 L/min Dr. Steven Tejeda DO Work Phone: 5(539)732-801649 [place] [address] 05-04-2025 11:13-0400 Body height 185.[address] Steven Tejeda DO Work Phone: 6(372)698-905026 [place] [address] 05-04-2025 11:13-0400 Body mass index (BMI) [Ratio] 18.8 kg/m2 Dr. Steven Tejeda DO Work Phone: 7(745)238-468326 [place] [address] 05-04-2025 11:13-0400 Body weight 64.[address] Steven Tejeda DO Work Phone: 3(024)647-965926 [place] [address] 04-24-2025 00:37-0400 Body temperature 98.2 [degF] Dr. Steven Tejeda DO Work Phone: 7(256)321-738026 [place] [address] 04-24-2025 00:37-0400 Diastolic blood pressure 81 mm[Hg] Dr. Steven Tejeda DO Work Phone: 9(169)638-516326 [place] [address] 04-24-2025 00:37-0400 Heart rate 83 /min Dr. Steven Tejeda DO Work Phone: 0(490)730-557426 [place] [address] 04-24-2025 00:37-0400 Respiratory rate 25 /min Dr. Steven Tejeda DO Work Phone: 0(607)143-981426 [place] [address] 04-24-2025 00:37-0400 SaO2% (BldA) [Mass fraction] 99 % Dr. Steven Tejeda DO Work Phone: 5(475)473-554626 [place] [address] 04-24-2025 00:37-0400 Systolic blood pressure 149 mm[Hg] Dr. Steven Tejeda DO Work Phone: 9(559)223-534626 [place] [address] 04-23-2025 21:27-0400 Body mass index (BMI) [Ratio] 20.8 kg/m2 Dr. Steven Tejeda DO Work Phone: 9(845)584-895026 [place] [address] 04-23-2025 21:07-0400 Body height 185.[address] Steven Tejeda DO Work Phone: 4(106)591-341326 [place] [address] 04-23-2025 21:07-0400 Body weight 71.[address] Steven Tejeda DO Work Phone: 1(629)695-934426 [place] [address] Encounters Encounter Date Encounter Type Care Provider Facility Start: 07-08-2025 End: 07-08-2025 Emergency department patient visit Dr. Steven Tejeda DO Work Phone: -Emergency Department Work Phone: Start: 07-07-2025 Non-patient / Non-visit Dr. Anthony Salgado MD -[facility] Work Phone: Start: 07-06-2025 Non-patient / Non-visit Dr. Anthony Salgado MD -[facility] Work Phone: Start: 07-05-2025 Non-patient / Non-visit Dr. Anthony Salgado MD -[facility] Work Phone: Start: 07-04-2025 Non-patient / Non-visit Dr. Uche lowery MD -[facility] Work Phone: Start: 07-03-2025 ambulatory Johanne Evans Facility :[facility] Start: 07-03-2025 End: 07-07-2025 Evaluation and management of inpatient Dr. Johanne Evans MD -[facility] 3 Work Phone: Start: 05-13-2025 Non-patient / Non-visit Dr. Anthony Salgado MD -[facility] Work Phone: Start: 05-12-2025 Non-patient / Non-visit Dr. Anthony Salgado MD -[facility] Work Phone: Start: 05-11-[address] [facility] ility:[facility] Start: 05-11-2025 End: 05-13-2025 Evaluation and management of inpatient Dr. Lane Stanley DO -Progressive Care Unit Work Phone: Start: 05-04-2025 End: 05-04-2025 Emergency department patient visit Dr. Steven Tejeda DO Work Phone: -Emergency Department Work Phone: Start: 04-23-2025 End: 04-24-2025 Emergency department patient visit Dr. Steven Tejeda DO Work Phone: -Emergency Department Work Phone: Start: 12-12-2024 End: 12-12-2024 Emergency department patient visit [facility] Facility:[facility] Procedures Date Procedure Procedure Detail Performing Clinician Start: 07-08-2025 Urnls dip stick/tabl et reagent auto microscopy Dr. Steven Tejeda DO Work Phone: Start: 07-08-[address] Steven Tejeda DO Work Phone: Start: 07-07-[address] Steven Tejeda DO Work Phone: Start: 07-05-2025 Serum inorganic phos phate measurement Dr. Steven Tejeda DO Work Phone: Start: 07-04-2025 Open reduction of fr acture of femur with internal fixation Dr. Steven Tejeda DO Work Phone: Start: 07-04-2025 Fluoroscopic guidance Rashel Tejeda DO Work Phone: Start: 07-04-2025 Plain X-ray of hip Dr. Steven Tejeda DO Work Phone: Start: 07-04-2025 Total iron binding capacity measurement Dr. Steven Tejeda DO Work Phone: Start: 07-03-2025 MRI of lower extremity Dr. Steven Tejeda DO Work Phone: Start: 07-03-2025 Blood disorder - ini tial assessment Dr. Steven Tejeda DO Work Phone: Start: 07-03-[address] Steven Tejeda DO Work Phone: Start: 07-03-2025 Urnls dip stick/tabl et reagent auto microscopy Dr. Steven Tejeda DO Work Phone: Start: 07-03-2025 Plain x-ray of pelvi s and lower extremity Dr. Steven Tejeda DO Work Phone: Start: 05-13-[address] Steven Teejda DO Work Phone: Start: 05-12-2025 CT of [...] Treatment Date Care Activity Detail Author Start: 07-08-2025 [facility] Start: 07-07-2025 Patient discharge [facility] Start: 07-06-2025 End: 07-06-2025 Administration of blood product [facility] Start: 07-04-2025 End: 07-05-2025 [facility] Start: 07-04-2025 Measuring intake and output [facility] Start: 07-04-2025 Measuring intake and output [facility] Start: 07-04-2025 Provision of overbed trapeze [facility] Start: 07-04-2025 Recommendation to co ntinue with treatment [facility] Start: 07-04-2025 Ambulation therapy management [facility] Start: 07-04-2025 Assessment of risk o f venous thromboembolism [facility] Start: 07-04-2025 Catheterization of vein [facility] Start: 07-04-2025 Exercises [facility] Start: 07-04-2025 Following clinical p athway protocol [facility] Start: 07-04-2025 Measuring intake and output [facility] Start: 07-04-2025 Neurovascular assessment [facility] Start: 07-04-2025 Procedure discontinued [facility] Start: 07-04-2025 Provision of activity privileges [facility] Start: 07-04-2025 Referral to occupati onal therapist [facility] Start: 07-04-2025 Referral to service [facility] Start: 07-04-2025 Vital signs measurements [facility] Start: 07-04-2025 Wound care [facility] Start: 07-04-2025 Measuring intake and output [facility] Start: 07-04-2025 Application of inter mittent pneumatic compression device [facility] Start: 07-04-2025 Following clinical p athway protocol [facility] Start: 07-03-2025 End: 07-04-2025 Consultation [facility] Start: 07-03-2025 Application of ice c ollar, cap or bag [facility] Start: 07-03-2025 Assessment of risk o f venous thromboembolism [facility] Start: 07-03-2025 Care regimes management [facility] Start: 07-03-2025 Fall prevention [facility] Start: 07-03-2025 Inhalation therapy procedure [facility] Start: 07-03-2025 Insertion of cathete r into peripheral vein [facility] Start: 07-03-2025 Introduction of urinary catheter [facility] Start: 07-03-2025 Neurovascular assessment [facility] Start: 07-03-2025 Notification of physician [facility] Start: 07-03-2025 Oxygen therapy [facility] Start: 07-03-2025 End: 07-04-2025 Patient referral to dietitian [facility] Start: 07-03-2025 Providing care accor ding to standard [facility] Start: 07-03-2025 Referral to occupati onal therapist [facility] Start: 07-03-2025 Referral to service [facility] Start: 07-03-2025 Skin care [facility] Start: 07-03-2025 Tobacco use cessation education [facility] Start: 07-03-2025 End: 07-03-2025 [facility] Start: 07-03-2025 Measuring intake and output [facility] Start: 07-03-2025 Recommendation to co danay with treatment [facility] Start: 07-03-2025 Verification routine [facility] Start: 07-03-2025 Hospital admission, emergency, from emergency room, medical nature [facility] Start: 07-03-2025 Admission procedure [facility] Start: 07-03-2025 Serum inorganic phos phate measurement [facility] Start: 07-03-2025 [facility] Start: 07-03-2025 Application of ice c ollar, cap or bag [facility] Start: 05-12-2025 [facility] Start: 05-12-2025 Patient discharge [facility] Start: 05-12-2025 Patient referral to dietitian [facility] Start: 05-11-2025 Following clinical p athway protocol [facility] Start: 05-11-2025 Ambulation without limitation [facility] Start: 05-11-2025 Assessment of risk o f venous thromboembolism [facility] Start: 05-11-2025 Care regimes management [facility] Start: 05-11-2025 Insertion of cathete r into peripheral vein [facility] Start: 05-11-2025 Notification of physician [facility] Start: 05-11-2025 Oxygen therapy [facility] Start: 05-11-2025 Providing care accor ding to standard [facility] Start: 05-11-2025 End: 05-11-2025 [facility] Start: 05-11-2025 Verification routine [facility] Start: 05-11-2025 Admission procedure [facility] Start: 05-11-2025 Hospital admission, emergency, from emergency room, medical nature [facility] Start: 05-11-2025 End: 05-11-2025 [facility] Start: 05-11-2025 Inhalation therapy procedure [facility] Start: 05-11-2025 Patient referral to dietitian [facility] Start: 05-04-2025 [facility] Start: 04-24-2025 [facility] Start: 04-23-2025 Oxygen therapy [facility] Start: 04-23-2025 [facility] Magnesium measurement [facility] Natriuretic peptide. B prohormone N-Terminal [Mass/volume] in Serum or Plasma [facility] Patient Education [facility] Work Phone: Patient referral [facility] Work Phone: Troponin T.cardiac [ Mass/volume] in Serum or Plasma by High sensitivity method [facility] Payers Date Payer Category Payer Self-pay [id number] 2024 Self-pay [id number] 2024 Self-pay Unknown [id number] 2.16.8 [id number] Unknown [id number] 2.16.8 [id number] Unknown [id number] 2.16.8 [id number] Unknown [id number] 2.16.8 [id number] Unknown [id number] 2.16.8 [id number] Unknown [id number] 2.16.8 [id number] Unknown [id number] 2.16.8 [id number] Unknown [id number] 2.16.8 [id number] Unknown [id number] 2.16.8 [id number] Unknown [id number] 2.16.8 [id number] Unknown [id number] 2.16.8 [id number] Unknown [id number] 2.16.8 [id number] Unknown [id number] 2.16.8 [id number] Unknown [id number] 2.16.8 [id number] Social History Date Type Detail Facility Start: 04-23-2025 End: 07-08-2025 Tobacco smoking status NYIS Current some day smoker [facility] Start: 04-23-2025 Tobacco Use Tobacco Use [facility] Start: 1950 Sex Assigned At Male [facility] Medical Equipment Procedure Code Equipment Code Equipment Origin al Text Equipment Identifier Dates ORIF, hip, using Gamma nail LAG SCREW FDA Start: 07-04-2025 ORIF, hip, using Gamma nail LOCKING SCREW FDA Start: 07-04-2025 ORIF, hip, using Gamma nail LOCKING SCREW FDA Start: 07-04-2025 ORIF, hip, using Gamma nail LONG NAIL FDA Start: 07-04-2025 ORIF, hip, using Gamma nail LAG SCREW FDA Start: 07-04-2025 ORIF, hip, using Gamma nail LOCKING SCREW FDA Start: 07-04-2025 ORIF, hip, using Gamma nail LOCKING SCREW FDA Start: 07-04-2025 ORIF, hip, using Gamma nail LONG NAIL FDA Start: 07-04-2025 Goals Date Patient Goal Desired Activity /State Functional Status Date Assessment Result Facility 07-07-2025 Functional status Back to bed [facility] Work Phone: 05-13-2025 Functional status Ambulates [facility] Work Phone: Mental Status Date Assessment Result Facility 07-07-2025 Cognitive function Voice/Name [facility] Work Phone: 05-13-2025 Cognitive function Voice/Name [facility] Work Phone: 05-11-2025 Cognitive function Voice/Name [facility] Work Phone: 04-23-2025 Cognitive function Voice/Name Paige René [facility] Work Phone: Clinical Notes 04-23-2025 to 07-08-2025 Note Date & Type Note Facility 07-08-2025 Discharge summary [facility] 07-08-2025 Discharge summary Note Date/Time July 08, 2025 2:57pm [facility] Medical Records Department [address] [place] [address] Emergency Department Summary 07/08/25 MR#: [id number] Acct: [id number] Name: ITZEL ALONZO Rep #:[id number] : 1950 75 From: Monty Clarke MD PCP: SID Haro Status:REG ER Location: ED HPI <AGUSTINA Sanches - Last Filed: 07/08/25 13:36> History of Present Illness Chief Complaint: Complaint Narrative Narrative: 75-year-old male with PMH of HTN, HLD, DM2, cirrhosis, anemia had a traumatic hip fracture with surgical fixation on 07/04/[address] Nuno Campbell. [facility]. He states this morning he started to have blood in his urine prompting his visit. He also states they are giving him Tylenol and it is not managing his hip pain well. He denies fever or chills, nausea or vomiting, or abdominal or flank pain. He was discharged on Eliquis 2.5 mg twice daily. PFSH <AGUSTINA Sanches - Last Filed: 07/08/25 13:36> [facility] Medical History CKD (chronic kidney disease), stage II Chronic anemia Cancer of right lung Anxiety and depression GERD (gastroesophageal reflux disease) Cirrhosis Former smoker TIA (transient ischemic attack) Kidney stones Neuropathy PTSD (post-traumatic stress disorder) Hepatitis COPD (chronic obstructive pulmonary disease) Hypertension Diabetes Home Medications ?Medication ?Instructions ?Recorded ?Last Taken ?Type gabapentin 300 mg capsule 300 mg PO TID neuropathy 01/0907/02/25 21:00 History amlodipine 5 mg tablet 10 mg PO QHS blood pressure 05/09/21 07/02/25 21:00 History 10 mg aspirin 81 mg tablet,delayed 81 mg PO DAILY heart heal th 05/09/21 07/02/25 History release Held on 07/07/25. Instructions: Hold while taking Eliquis. 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 05/09/21 07/02/25 History mcg-4.5 mcg/actuation aerosol inhaler (Symbicort) cyclobenzaprine 10 mg tablet 10 mg PO TID PRN muscle s pasms 05/09/21 07/02/25 History sildenafil 100 mg tablet 100 mg PO DAILY PRN Erectile 05/09/21 07/02/25 History Dysfunction atorvastatin 80 mg tablet 80 mg PO QHS cholesterol #90 tabs 05/12/21 07/02/25 21:00 Rx insulin aspart U-100 100 unit/mL 10 unit subcut TIDCM DM 12/12/24 07/02/25 History (3 mL) subcutaneous pen (Novolog FlexPen U-100 Insulin aspart) insulin glargine 100 unit/mL (3 10 unit subcut QPM Dm 05/04/25 07/02/25 History mL) subcutaneous pen (Lantus Solostar U-100 Insulin) magnesium hydroxide 400 mg/5 mL 5 ml PO DAILY PRN cons tipation 05/04/25 07/02/25 History oral suspension (Gentle Laxative (magnesium hydroxide)) ropinirole 1 mg tablet 1 mg PO QHS rls 05/04/2507/19 History albuterol 90 mcg/actuation aerosol 90 mcg inhalation Q 4H PRN sob 07/04/25 Unknown History inhaler calcium carbonate 1,500 mg PO DAILY supplement 07/04/25 07/02/25 History cyclopentolate 2 % eye drops 1 drp LEFT EYE QHS inflam ation 07/04/25 07/02/25 History ferrous sulfate 325 mg (65 mg 325 mg PO .every other d ay 07/04/25 Unknown History iron) tablet (Feosol) supplement lidocaine 5 % topical patch 2 patch topical DAILY PRN pain 07/04/25 Unknown History melatonin 3 mg tablet 3 mg PO QHS sleep 07/04/25 0 07/02/25 History nicotine 14 mg/24 hr daily 1 patch transdermal DAILY s moking 07/04/25 Unknown History transdermal patch (Nicoderm CQ) cessation pantoprazole 40 mg tablet,delayed 40 mg PO DAILY heart burn 07/04/25 07/02/25 History release (Protonix) polyethylene glycol 3350 17 gram 17 g PO DAILY constip ation 07/04/25 07/02/25 History oral powder packet polyvinyl alcohol-povidone 1.4 1 drp ophthalmic (eye) 4X/DAY dry 07/04/25 07/02/25 History %-0.6 % eye drops eye prednisolone acetate 1 % eye 1 drp LEFT EYE Q6H inflam ation 07/04/25 07/02/25 History drops,suspension sennosides 8.6 mg-docusate sodium 2 tab-cap PO DAILY s tool softener 07/04/25 06/25/25 History 50 mg tablet (Senna with Docusate Sodium) tiotropium 2.5 mcg-olodaterol 2.5 2 puff inhalation DA MANDO asthma 07/04/25 07/02/25 History mcg/actuation mist for inhalation acetaminophen 500 mg tablet 1,000 mg (2 x 500 mg) PO Q 8 #0 tabs 07/07/25 Unknown Rx apixaban 5 mg tablet (Eliquis) 2.5 mg (1/2 x 5 mg) PO BID 4 weeks 07/07/25 Unknown Rx #28 tabs oxycodone 5 mg tablet 2.5 mg (1/2 x 5 mg) PO Q6H P RN 07/07/25 Unknown Rx pain 3 days #7 tabs Allergy/AdvReac Type Severity Reaction Status Date / Time No Known Allergies Allergy Verified 07/08/25 10:57 Family History Mother CVA (cerebral vascular accident) Family History other Surgical History Hx of appendectomy Social History household members: none housing: apartment Smoking Status: Current some day smoker tobacco type: cigarettes and cigars alcohol intake: never substance use type: does not use ROS <AGUSTINA Sanches - Last Filed: 07/08/25 13:36> ROS ED ROS Narrative Constitutional: Negative for fever, chills, malaise. CVS: Negative for chest pain. Respiratory: Negative for shortness of breath. GI: Negative for abdominal pain, nausea, vomiting. : Positive for hematuria. No dysuria or frequency. EXAM <AGUSTINA Sanches - Last Filed: 07/08/25 13:36> Physical Exam Narrative Exam Narrative: CONST: Patient sitting in no acute distress. EYES: Normal inspection. NECK: Normal inspection. RESP: No respiratory distress, CTAB. CVS: Regular rate and rhythm, no murmur, no gallop. ABD: Soft and nontender, no guarding or rebound, nondistended. SKIN: Lily over right hip incisions are clean, dry, intact without surrounding erythema or drainage. EXTREMITIES: Normal appearance, no pedal edema. NEURO: Alert and answering questions appropriately. PSYCH: Normal affect. Const Vital Signs: 07/08/25 10:55 07/08/25 10:58 07/08/25 12:55 Temperature 98.7 F 98.7 F Temperature Source Oral Oral Pulse Rate 102 H 101 H 98 Respiratory Rate 21 H 20 H 21 H Blood Pressure 138/82 H 138/82 H 137/82 H Blood Pressure Mean 100 100 100 Pulse Ox 97 96 100 Oxygen Delivery Method Room Air Room Air 07/08/25 13:59 07/08/25 14:00 Temperature 98.7 F Temperature Source Pulse Rate 98 101 H Respiratory Rate 21 H 19 H Blood Pressure 123/92 H 130/81 H Blood Pressure Mean 102 97 Pulse Ox 100 100 Oxygen Delivery Method Room Air <Dr. Monty Clarke MD - Last Filed: 07/08/25 14:57> Physical Exam Const Vital Signs: 07/08/25 10:55 07/08/25 10:58 07/08/25 12:55 Temperature 98.7 F 98.7 F Temperature Source Oral Oral Pulse Rate 102 H 101 H 98 Respiratory Rate 21 H 20 H 21 H Blood Pressure 138/82 H 138/82 H 137/82 H Blood Pressure Mean 100 100 100 Pulse Ox 97 96 100 Oxygen Delivery Method Room Air Room Air 07/08/25 13:59 07/08/25 14:00 Temperature 98.7 F Temperature Source Pulse Rate 98 101 H Respiratory Rate 21 H 19 H Blood Pressure 123/92 H 130/81 H Blood Pressure Mean 102 97 Pulse Ox 100 100 Oxygen Delivery Method Room Air MDM <AGUSTINA Sanches - Last Filed: 07/08/25 13:36> [facility] Narrative Medical decision making narrative: History gathered from: Patient and significant other Differential: Hematuria, UTI, no signs or symptoms of kidney stone 75-year-old male is recently postop from right hip surgery and was started on Eliquis 2.5 mg twice daily for DVT prevention and developed painless hematuria this morning. He appears chronically ill but nontoxic. Vital stable. Abdomen soft, nontender. Right hip incision is healing well without signs of infection. He was having postop pain so was given a [place]. Blood work looks stable with aglobin of 8.6 up from 8.0 at discharge. BMP unremarkable. Glucose 210 consistent with his diabetes. UA has 10-25 RBCs but no signs of infection. He is stable for discharge back to SNF and return precautions were discussed including persistent gross hematuria, clots, or urinary retention. At this point he should continue Eliquis. He was discharged in stable condition. I have personally performed a face to face assessment of the patient and have reviewed the DONI Note. I performed a substantive portion of the visit including all aspects of the following. My sierra findings include: History is remarkable for right-sided lung cancer. Type is unspecified. He hadassociated hyper callus EMEA due to the lung cancer. He was recently admitted this month for a closed intertrochanteric fracture on the right. He underwent open reduction internal fixation. According to person with him he has missed 3 of his radiation doses. [facility] He presents[facility] because of hematuria. He did have hematuria during his hospital stay it wasthought to be due to trauma secondary to the [place]. He was placed on Eliquis 2.5 mg for prophylaxis. He denies dysuria, frequency or urgency. He denies passing clots. He is not able to stand yet. He is only cleared to sit. He does not give orthostatic symptoms with sitting. He denies black or maroon-colored stool. Exam is patient is a thin gentleman. He does not appear well. HEENT exam is remarkable for pale appearing conjunctive. Neck is supple. Trachea is midline. Lungs reveal no wheeze rales rhonchi. Has decreased breath sounds bilaterally. Heart is rapid and regular. There is no murmur, gallop or rub. Abdomen is benign. He has no inguinal mass or lymphadenopathy. He has no scrotal swellingor pain. There was no blood noted to meatus. Medical Decision Making patient with painless hematuria. Will obtain UA and appropriate blood work and compare to prior. This may be due to the fact that he had trauma from [place] and now is on Eliquis. This could be due to undiagnosed malignancy. After reviewing labs we will determine if patient needsan emergent CT of the abdomen pelvis with IV contrast. Other additions or changes: [None] History & Record Review Discussion w/independent historian: Patient and Friend Additional record(s) reviewed:: Prior inpatient record, Prior ED visit and Prior labs Lab Data Labs: Laboratory Results - last 24 hr 07/08/25 07/08/25 11:10 12:54 WBC 8.8 RBC 3.75 L Hgb 8.6 L Hct 26.8 L MCV 71.5 L MCH 22.9 L MCHC 32.1 RDW Std Deviation 56.8 H RDW Coeff of Tiffany 22.5 H Plt Count 250 MPV 9.6 Immature Gran % (Auto) 0.300 Neut % (Auto) 75.3 H Lymph % (Auto) 16.1 L [place] % (Auto) 7.2 Eos % (Auto) 0.9 Baso % (Auto) 0.2 Absolute Neuts (auto) 6.6 Absolute Lymphs (auto) 1.42 Nucleated RBC % 0 Differential Comment SCANNED Anisocytosis 2+ Sodium 135 Potassium 4.3 Chloride 102 Carbon Dioxide 23.9 Anion Gap 9 BUN 19 Creatinine 0.93 Estim Creat Clear Calc 70.28 Est GFR (MDRD) Non-Af 85 BUN/Creatinine Ratio 20.9 H Glucose 210 H Calcium 9.1 Urine Color Yellow Urine Clarity Clear Urine pH 6.5 Ur Specific [place] 1.010 Urine Protein 100 H Urine Glucose (UA) 100 H Urine Ketones Negative Urine Occult Blood 150 H Urine Nitrite Negative Urine Bilirubin Negative Urine Urobilinogen Normal Ur Leukocyte Esterase Negative Urine RBC 10-25 SEEN Urine WBC 0 SEEN Ur Squamous Epith Cells 0 SEEN Urine Bacteria 0 SEEN Urine Mucus 0 SEEN <Dr. Monty Clarke MD - Last Filed: 07/08/25 14:57> MDM MDM Narrative Medical decision making narrative: I have personally performed a face to face assessment of the patient and have reviewed the DONI Note. I performed a substantive portion of the visit including all aspects of the following. My sierra findings include: History is remarkable for right-sided lung cancer. Type is unspecified. He had associated hyper callus EMEA due to the lung cancer. He was recently admitted this month for a closed intertrochanteric fracture on the right. He underwent open reduction internal fixation. According to person with him he has missed 3 of his radiation doses. He apparently [facility] his [facility] at the [facility]. He presents now because of hematuria. He did have hematuria during his hospital stay it was thought to be due to trauma secondary to the [place]. He was placed on Eliquis 2.5 mg for prophylaxis. He denies dysuria, frequency or urgency. He denies passing clots. He is not able to stand yet. He is only cleared to sit. He does not give orthostatic symptoms with sitting. He denies black or maroon-colored stool. Exam is patient is a thin gentleman. He does not appear well. HEENT exam is remarkable for pale appearing conjunctive. Neck is supple. Trachea is midline. Lungs reveal no wheeze rales rhonchi. Has decreased breath sounds bilaterally. Heart is rapid and regular. There is no murmur, gallop or rub. Abdomen is benign. He has no inguinal mass or lymphadenopathy. He has no scrotal swelling or pain. There was no blood noted to meatus. Medical Decision Making patient with painless hematuria. Will obtain UA and appropriate blood work and compare to prior. This may be due to the fact that he had trauma from [place] and now is on Eliquis. This could be due to undiagnosed malignancy. After reviewing labs we will determine if patient needs an emergent CT of the abdomen pelvis with IV contrast. Other additions or changes: [None] Lab Data Attestation: I reviewed the patient's lab results. Lab results narrative: CBC is remarkable microcytic anemia. H&H was 8.0 yesterday. Labs: Laboratory Results - last 24 hr 07/08/25 07/08/25 11:10 12:54 WBC 8.8 RBC 3.75 L Hgb 8.6 L Hct 26.8 L MCV 71.5 L MCH 22.9 L MCHC 32.1 RDW Std Deviation 56.8 H RDW Coeff of Tiffany 22.5 H Plt Count 250 MPV 9.6 Immature Gran % (Auto) 0.300 Neut % (Auto) 75.3 H Lymph % (Auto) 16.1 L [place] % (Auto) 7.2 Eos % (Auto) 0.9 Baso % (Auto) 0.2 Absolute Neuts (auto) 6.6 Absolute Lymphs (auto) 1.42 Nucleated RBC % 0 Differential Comment SCANNED Anisocytosis 2+ Sodium 135 Potassium 4.3 Chloride 102 Carbon Dioxide 23.9 Anion Gap 9 BUN 19 Creatinine 0.93 Estim Creat Clear Calc 70.28 Est GFR (MDRD) Non-Af 85 BUN/Creatinine Ratio 20.9 H Glucose 210 H Calcium 9.1 Urine Color Yellow Urine Clarity Clear Urine pH 6.5 Ur Specific [place] 1.010 Urine Protein 100 H Urine Glucose (UA) 100 H Urine Ketones Negative Urine Occult Blood 150 H Urine Nitrite Negative Urine Bilirubin Negative Urine Urobilinogen Normal Ur Leukocyte Esterase Negative Urine RBC 10-25 SEEN Urine WBC 0 SEEN Ur Squamous Epith Cells 0 SEEN Urine Bacteria 0 SEEN Urine Mucus 0 SEEN Discharge Plan Triage Chief Complaint: Complaint ED Midlevel Provider: Marissa Rivera ED Provider: Monty Clarke Dx/Rx/DC Orders Clinical Impression: Hematuria, Post-op pain, History of right hip replacement Instructions: ED Hematuria Prescriptions: No Action gabapentin 300 MG capsule 300 mg PO TID cyclobenzaprine 10 mg Tablet 10 mg PO TID PRN (Reason: muscle spasms) amlodipine 5 mg Tablet 10 mg PO QHS budesonide-formoterol [Symbicort] 80-4.5 mcg/actuation [...] ropinirole 1 mg tablet 1 mg PO QHS insulin glargine [Lantus Solostar U-100 Insulin] 100 unit/mL (3 mL) insulin pen 10 unit subcut QPM Rx Instructions: PT STATES USES 10-15U QHS magnesium hydroxide [Gentle Laxative (mag hydrox)] 400 mg/5 mL suspension 5 ml PO DAILY PRN (Reason: constipation) sennosides-docusate sodium [Senna with Docusate Sodium] 8.6-50 mg tablet 2 tab-cap PO DAILY melatonin 3 mg tablet 3 mg PO QHS polyethylene glycol 3350 17 gram powder in packet 17 g PO DAILY ferrous sulfate [Feosol] 325 mg (65 mg iron) tablet 325 mg PO .every other day lidocaine 5 % adhesive patch,medicated 2 patch topical DAILY PRN (Reason: pain) Rx Instructions: leave on most painful area for up to 12 hrs cyclopentolate 2 % drops 1 drp LEFT EYE QHS calcium carbonate 500 mg calcium (1,250 mg) tablet 1,500 mg PO DAILY polyvinyl alcohol-povidone 1.4-0.6 % drops 1 drp ophthalmic (eye) 4X/DAY Rx Instructions: 1 drop each eye; pantoprazole [Protonix] 40 mg tablet,delayed release (DR/EC) 40 mg PO DAILY prednisolone acetate 1 % drops,suspension 1 drp LEFT EYE Q6H tiotropium-olodaterol 2.5-2.5 mcg/actuation mist 2 puff inhalation DAILY nicotine [Nicoderm CQ] 14 mg/24 hr patch 24 hour 1 patch transdermal DAILY Rx Instructions: apply every morning and remove at HS albuterol 90 mcg/actuation aerosol 90 mcg inhalation Q4H PRN acetaminophen 500 mg Tablet 1,000 mg PO Q8 Qty: 0 0RF Rx Instructions: 1 g every 8 hourly for 1 week and then Q8 hourly as needed for severe pain Eliquis 5 mg Tablet 2.5 mg PO BID 28 Days Qty: 28 0RF Rx Instructions: Start from 07/08/2025. Discontinue if platelet count drops less than 50,000 or hemoglobin less than 8 g% oxycodone 5 mg tablet 2.5 mg PO Q6H PRN (Reason: pain) 3 Days Qty: 7 0RF Primary Care Provider: Carlene Haji Referrals: Carlene Haji, [employer]ATOR-[facility] [Primary Care Provider] - Activity Restrictions/Additional Instructions: There is a microscopic amount of blood in your urine but your hemoglobin level is stable. This is your red blood cell count. At this time I recommend you still continue the Eliquis because this is to prevent blood clots after surgery. If you have worsening symptoms like if your urine becomes more bloody or you have clots or are unable to urinate then please come back to the ER. Print Language: Czech Disposition Disposition: Home, Self Care What to do if you have Problems For any increased pain, shortness of breath, bleeding, nausea or vomiting, chestpain, or any unexpected problems, contact your Primary Care Provider. Call [facility] ([phone]) or report to the closest Emergency Room. Call 911 if necessary. 07/08/25 1457 <Electronically signed by Monty Clarke MD> Cosigner Signature (if applicable): 07/08/25 1336 <Electronically signed by Marissa BERRIOS> CC: SID Haji ~ Signed [facility] Work Phone: [phone] Consult note [facility] Medical Records Department [address] [place] [address] Counseling Note - Pharmacy 07/07/25 1546 MR#: [id number] Acct: [id number] Name: ITZEL ALONZO Rep #:[id number] : 1950 75 From: Karissa Polo PCP: SDI Haro Status:ADM IN Y Location: [place] [address] Pharmacy [place] Med Reconciliation Pharmacy Service has performed discharge medication reconciliation for this patient. The patient's discharge medication list was reviewed for discrepancies and discrepancies were resolved. Medications at Discharge Home Medications gabapentin 300 mg capsule 300 mg PO TID neuropathy 02/24/15 amlodipine 5 mg tablet 10 mg PO QHS blood pressure 05/09/21 aspirin 81 mg tablet,delayed release 81 mg PO DAILY heart health 05/09/21 Held on 07/07/25. Instructions: Hold while taking Eliquis. budesonide-formoterol HFA 80 mcg-4.5 mcg/actuation aerosol inhaler (Symbicort) 2puff inhalation BIDCOPD 05/09/21 cyclobenzaprine 10 mg tablet 10 mg PO TID PRN muscle spasms 05/09/21 sildenafil 100 mg tablet 100 mg PO DAILY PRN Erectile Dysfunction 05/09/21 atorvastatin 80 mg tablet 80 mg PO QHS cholesterol #90 tabs 05/12/21 insulin aspart U-100 100 unit/mL (3 mL) subcutaneous pen (Novolog FlexPen U-100 Insulin aspart) 10 unit subcut TIDCM DM 12/12/24 insulin glargine 100 unit/mL (3 mL) subcutaneous pen (Lantus Solostar U-100 Insulin) 10 unit subcutQPM Dm 05/04/25 magnesium hydroxide 400 mg/5 mL oral suspension (Gentle Laxative (magnesium hydroxide)) 5 ml PO DAILY PRN constipation 05/04/25 ropinirole 1 mg tablet 1 mg PO QHS rls 05/04/25 albuterol 90 mcg/actuation aerosol inhaler 90 mcg inhalation Q4H PRN sob 07/04/25 calcium carbonate 1,500 mg PO DAILY supplement 07/04/25 cyclopentolate 2 % eye drops 1 drp LEFT EYE QHS inflamation 07/04/25 ferrous sulfate 325 mg (65 mg iron) tablet (Feosol) 325 mg PO .every other day supplement 07/04/25 lidocaine 5 % topical patch 2 patch topical DAILY PRN pain 07/04/25 melatonin 3 mg tablet 3 mg PO QHS sleep 07/04/25 nicotine 14 mg/24 hr daily transdermal patch (Nicoderm CQ) 1 patch transdermal DAILY smoking cessation 07/04/25 pantoprazole 40 mg tablet,delayed release (Protonix) 40 mg PO DAILY heart burn 07/04/25 polyethylene glycol 3350 17 gram oral powder packet 17 g PO DAILY constipation 07/04/25 polyvinyl alcohol-povidone 1.4 %-0.6 % eye drops 1 drp ophthalmic (eye) 4X/DAY dry eye 07/04/25 prednisolone acetate 1 % eye drops,suspension 1 drp LEFT EYE Q6H inflamation 07/04/25 sennosides 8.6 mg-docusate sodium 50 mg tablet (Senna with Docusate Sodium) 2 tab-cap PO DAILY stool softener 07/04/25 tiotropium 2.5 mcg-olodaterol 2.5 mcg/actuation mist for inhalation 2 puff inhalation DAILY asthma 07/04/25 acetaminophen 500 mg tablet 1,000 mg (2 x 500 mg) PO Q8 #0 tabs 07/07/25 apixaban 5 mg tablet (Eliquis) 2.5 mg (1/2 x 5 mg) PO BID 4 weeks #28 tabs 07/07/25 oxycodone 5 mg tablet 2.5 mg (1/2 x 5 mg) PO Q6H PRN pain 3 days #7 tabs 07/07/25 07/07/25 1547 Date _ Karissa Polo Cosigner Signature (if applicable): Date CC: ~ Signed [facility]08-13-2025 Consult note Author Karissa Polo [facility] Note Date/Time July 07, 2025 6: 03pm [facility] Medical Records Department [address] [place] [address] Counseling Note - Pharmacy 07/07/25 1547 MR#: [id number] Acct: [id number] Name: CHERIITZEL A Rep #:[id number] : 1950 75 From: Karissa Polo PCP: 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 The patient's discharge medication list was reviewed for discrepancies and discrepancies were resolved. Medications at Discharge Home Medications gabapentin 300 mg capsule 300 mg PO TID neuropathy 02/24/15 amlodipine 5 mg tablet 10 mg PO QHS blood pressure 05/09/21 aspirin 81 mg tablet,delayed release 81 mg PO DAILY heart health 05/09/21 Held on 07/07/25. Instructions: Hold while taking Eliquis. budesonide-formoterol HFA 80 mcg-4.5 mcg/actuation aerosol inhaler (Symbicort) 2puff inhalation BID COPD 05/09/21 cyclobenzaprine 10 mg tablet 10 mg PO TID PRN muscle spasms 05/09/21 sildenafil 100 mg tablet 100 mg PO DAILY PRN Erectile Dysfunction 05/09/21 atorvastatin 80 mg tablet 80 mg PO QHS cholesterol #90 tabs 05/12/21 insulin aspart U-100 100 unit/mL (3 mL) subcutaneous pen (Novolog FlexPen U-100 Insulin aspart) 10 unit subcut TIDCM DM 12/12/24 insulin glargine 100 unit/mL (3 mL) subcutaneous pen (Lantus Solostar U-100 Insulin) 10 unit subcut QPM Dm 05/04/25 magnesium hydroxide 400 mg/5 mL oral suspension (Gentle Laxative (magnesium hydroxide)) 5 ml PO DAILY PRN constipation 05/04/25 ropinirole 1 mg tablet 1 mg PO QHS rls 05/04/25 albuterol 90 mcg/actuation aerosol inhaler 90 mcg inhalation Q4H PRN sob 07/04/25 calcium carbonate 1,500 mg PO DAILY supplement 07/04/25 cyclopentolate 2 % eye drops 1 drp LEFT EYE QHS inflamation 07/04/25 ferrous sulfate 325 mg (65 mg iron) tablet (Feosol) 325 mg PO .every other day supplement 07/04/25 lidocaine 5 % topical patch 2 patch topical DAILY PRN pain 07/04/25 melatonin 3 mg tablet 3 mg PO QHS sleep 07/04/25 nicotine 14 mg/24 hr daily transdermal patch (Nicoderm CQ) 1 patch transdermal DAILY smoking cessation 07/04/25 pantoprazole 40 mg tablet,delayed release (Protonix) 40 mg PO DAILY heart burn 07/04/25 polyethylene glycol 3350 17 gram oral powder packet 17 g PO DAILY constipation 07/04/25 polyvinyl alcohol-povidone 1.4 %-0.6 % eye drops 1 drp ophthalmic (eye) 4X/DAY dry eye 07/04/25 prednisolone acetate 1 % eye drops,suspension 1 drp LEFT EYE Q6H inflamation 07/04/25 sennosides 8.6 mg-docusate sodium 50 mg tablet (Senna with Docusate Sodium) 2 tab-cap PO DAILY stool softener 07/04/25 tiotropium 2.5 mcg-olodaterol 2.5 mcg/actuation mist for inhalation 2 puff inhalation DAILY asthma 07/04/25 acetaminophen 500 mg tablet 1,000 mg (2 x 500 mg) PO Q8 #0 tabs 07/07/25 apixaban 5 mg tablet (Eliquis) 2.5 mg (1/2 x 5 mg) PO BID 4 weeks #28 tabs 07/07/25 oxycodone 5 mg tablet 2.5 mg (1/2 x 5 mg) PO Q6H PRN pain 3 days #7 tabs 07/07/25 07/07/25 1547 <Electronically signed by Karissa Polo> Date _ Karissa Polo Cosigner Signature (if applicable): Date CC: ~ Signed [facility] Work Phone: [phone]) 269-915908-13-2025 Discharge summary Author Anthony Salgado [facility] Note Date/Time July 07, 2025 3: 18pm [facility] Medical Records Department [address] [place] [id number] Discharge Summary 07/07/25 1517 MR#: [id number] Acct: [id number] Name: ITZEL ALONZO Rep #:[id number] : 1950 75 From: Anthony Kiser PCP: SID Haro Status:ADM IN [id number] Providers Date of Admission: 07/03/25 Date of Discharge: 07/07/25 Primary Care Physician: SID Haro Consultations 07/03/25 23:57 Consult: Orthopedics Routine Consulting Provider: Nuno Campbell Reason for Consult: Fall, R hip fracture EMERGENT Consult: No MD Notified: Yes Date Notified: 07/03/25 Time Notified: 23:14 Method of Notification: Verbal Reason For Visit: FALL, R HIP FX Diagnosis Discharge Diagnosis (1) Closed intertrochanteric fracture of right hip: Status: Acute Code(s): S72.141A - Displaced intertrochanteric fracture of right femur, initial encounter for closed fracture Qualifiers: Encounter type: initial encounter Fracture alignment: displaced Qualified Code(s): S72.141A - Displaced intertrochanteric fracture of right femur, initial encounter for closed fracture (2) Fall: Status: Acute Code(s): W19.XXXA - Unspecified fall, initial encounter Plan Patient is a 75-year-old gentleman who experienced for with resultant right hip pain.Imaging studies obtained on admission did show Fracture of the right greater trochanter, extending into the intertrochanteric line. Admitted to regular nursing floor with consultation placed orthopedic surgeon 1. Fall with right hip fracture .Imaging studies obtained on admission did show Fracture of the right greater trochanter, extending into the intertrochanteric line. Admitted to regular nursing floor treatment initiated with with immobilization, pain management consultation placed to orthopedic surgery. Decision regarding surgical intervention deferred to orthopedic surgery. - Patient perioperative Risk assessment as documented by admitting physician 07/05: Right hip ORIF with intramedullary nail fixation, locked on 07/04/[address] Nuno Campbell. Mild tenderness present. Patient on pain medication. 07/06: Still complain of pain over right hip area. 07/07: Patient sitting on the recliner. Pain is better. Pre-CERT obtained. Patient did not discharge. Advised to resume Eliquis 2.5 mg twice daily from tomorrow with follow-up CBC in 3 days recheck with PCP. Hold baby aspirin whiletaking Eliquis. 2. Physical deconditioning/debility secondary to above ? Requested for PT OT eval and manager social services to assist with discharge planning 3. Right sided lung cancer (suprahilar, unclear exact specific type) with associated hypercalcemia of malignancy with recent transition to [place] system. Patient to resume care following discharge 4. Hematuria ? Apparently traumatic following Epperson catheter insertion plan is to initiate CBI if hematuria does not resolve 5. Anemia ? Secondary to chronic disorder/anemia of malignancy. Patient was typed and crossmatched for 2 unit PRBC, subsequently monitoring H&H and transfuse if patient becomes symptomatic or hemoglobin falls below 7 07/06: Patient baseline hemoglobin is about 8.4. Gradually dropped to 7.5 and then 6.6 today. 1 unit of PRBC ordered. Hold Eliquis. Monitor CBC tomorrow 07/07: H&H improved to 8.0/25.6%. Had 1 unit of PRBC transfusion. 6. Diabetes mellitus type II -patient's oral hypoglycemics held. Placed on long acting insulin, Accu-Cheks a.c. and at bedtime and covered with sliding scale insulin 07/05: Glucoses elevated 180-290. Started on Lantus 10 and subcutaneous daily. 07/07: Glucoses reasonably controlled. 7. Tobacco dependence ? Counseled on cessation, offered nicotine patch for tobacco cravings 8. GERD ? On PPI 9. COPD ? Not in exacerbation aerosol treatments as needed 10. Dyslipidemia ? Patient is on atorvastatin did continue home dose 11. 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 Restless leg syndrome ? Patient is on ropinirole we will continue 13. Severe protein calorie malnutrition ? Evidenced by reduced BMI muscle wasting and decreased oral intake. Consult placed to dietitian Discharge medication reconciliation done. Discharge follow-up instructions completed. Discharge process discussed with the patient and all questions wereanswered to patient's satisfaction. Follow with PCP in 1 to 2 weeks Total time spent, exact 35 minutes on discharge meds reconciliation, examination, coordination of care with nurses and ancillary staff, review of imaging and blood test and discussion with the patient on follow-up instructions. Laboratory Results 07/04/25 07:50: Crossmatch See Detail 07/06/25 16:35: POC Glucose 213 H 07/06/25 22:20: POC Glucose 183 H 07/07/25 05:38: WBC 10.5, RBC 3.59 L, Hgb 8.0 L, Hct 25.6 L, MCV 71.3 L, MCH 22.3 L, MCHC 31.3 L, RDW Std Deviation 54.1 H, RDW Coeff of Tiffany 21.1 H, Plt Count 234, MPV 9.7, Immature Gran % (Auto) 0.400, Neut % (Auto) 71.4 H, Lymph % (Auto) 19.0, [place] % (Auto) 7.8, Eos % (Auto) 1.3, Baso % (Auto) 0.1, Absolute Neuts (auto) 7.5, Absolute Lymphs (auto) 1.99, Nucleated RBC % 0, Platelet Estimate ADEQUATE, Polychromasia 1+, Anisocytosis 1+, Sodium 136, Potassium 4.4,Chloride 104, Carbon Dioxide 23.0, Anion Gap 9, BUN 21 H, Creatinine 0.90, EstimCreat Clear Calc 58.14, Est GFR (MDRD) Non-Af 88, BUN/Creatinine Ratio 23.6 H, Glucose 186 H, Calcium 8.7 07/07/25 06:22: POC Glucose 185 H 07/07/25 11:40: POC Glucose 208 H Clinical Impression(s) from Imaging Studies Hip/Pelvis X-Ray 07/03/25 20:20 IMPRESSION: Fracture of the right greater trochanter, extending into the intertrochanteric line. Malignancy can not be excluded. Reading Location: [id number] Lower Extremity CT 07/03/25 21:54 IMPRESSION: Acute, moderately comminuted and impacted right intertrochanteric femoral fracture. No aggressive osseous lesions. Reading Location: [id number] Hip X-Ray 07/04/25 10:00 IMPRESSION: Postsurgical changes for repair of right femoral fracture with no acute complications. Reading Location: [facility] Medications at Discharge Home Medications gabapentin 300 mg capsule 300 mg PO TID neuropathy 02/24/15 amlodipine 5 mg tablet 10 mg PO QHS blood pressure 05/09/21 aspirin 81 mg tablet,delayed release 81 mg PO DAILY heart health 05/09/21 Held on 07/07/25. Instructions: Hold while taking Eliquis. budesonide-formoterol HFA 80 mcg-4.5 mcg/actuation aerosol inhaler (Symbicort) 2puff inhalation BID COPD 05/09/21 cyclobenzaprine 10 mg tablet 10 mg PO TID PRN muscle spasms 05/09/21 sildenafil 100 mg tablet 100 mg PO DAILY PRN Erectile Dysfunction 05/09/21 atorvastatin 80 mg tablet 80 mg PO QHS cholesterol #90 tabs 05/12/21 insulin aspart U-100 100 unit/mL (3 mL) subcutaneous pen (Novolog FlexPen U-100 Insulin aspart) 10 unit subcut TIDCM DM 12/12/24 insulin glargine 100 unit/mL (3 mL) subcutaneous pen (Lantus Solostar U-100 Insulin) 10 unit subcut QPM Dm 05/04/25 magnesium hydroxide 400 mg/5 mL oral suspension (Gentle Laxative (magnesium hydroxide)) 5 ml PO DAILY PRN constipation 05/04/25 ropinirole 1 mg tablet 1 mg PO QHS rls 05/04/25 albuterol 90 mcg/actuation aerosol inhaler 90 mcg inhalation Q4H PRN sob 07/04/25 calcium carbonate 1,500 mg PO DAILY supplement 07/04/25 cyclopentolate 2 % eye drops 1 drp LEFT EYE QHS inflamation 07/04/25 ferrous sulfate 325 mg (65 mg iron) tablet (Feosol) 325 mg PO .every other day supplement 07/04/25 lidocaine 5 % topical patch 2 patch topical DAILY PRN pain 07/04/25 melatonin 3 mg tablet 3 mg PO QHS sleep 07/04/25 nicotine 14 mg/24 hr daily transdermal patch (Nicoderm CQ) 1 patch transdermal DAILY smoking cessation 07/04/25 pantoprazole 40 mg tablet,delayed release (Protonix) 40 mg PO DAILY heart burn 07/04/25 polyethylene glycol 3350 17 gram oral powder packet 17 g PO DAILY constipation 07/04/25 polyvinyl alcohol-povidone 1.4 %-0.6 % eye drops 1 drp ophthalmic (eye) 4X/DAY dry eye 07/04/25 prednisolone acetate 1 % eye drops,suspension 1 drp LEFT EYE Q6H inflamation 07/04/25 sennosides 8.6 mg-docusate sodium 50 mg tablet (Senna with Docusate Sodium) 2 tab-cap PO DAILY stool softener 07/04/25 tiotropium 2.5 mcg-olodaterol 2.5 mcg/actuation mist for inhalation 2 puff inhalation DAILY asthma 07/04/25 acetaminophen 500 mg tablet 1,000 mg (2 x 500 mg) PO Q8 #0 tabs 07/07/25 apixaban 5 mg tablet (Eliquis) 2.5 mg (1/2 x 5 mg) PO BID 4 weeks #28 tabs 07/07/25 oxycodone 5 mg tablet 2.5 mg (1/2 x 5 mg) PO Q6H PRN pain 3 days #7 tabs 07/07/25 Physical Exam Narrative Please see exam finding on the progress note for the same day Medical Records Data Medical Nutrition Assessment Dietitian: Malnutrition Criteria Met Start: 07/05/25 10:37 Freq: Status: Active Protocol: Document 07/05/25 10:37 SB (Rec: 07/05/25 10:37 SB [id number]) Nutrition Malnutrition Evidence of Yes Malnutrition Exists Malnutrition (severe Chronic ): Evidenced By Suboptimal Energy Intake (Severe),Weight Loss (Severe), Physical Changes (Severe) Clinical Problem Chronic Disease or Condition Related Malnutrition Etiology severe related to inadequate energy intake and increased energy expenditure due to lung cancer Signs/Symptoms as evidenced by PO meeting <75% of estimated nutrition needs x 2-3 days, 23% unintentional weight loss x 7 months, and severe muscle/fat wasting in clavicle, temples, and orbital regions. Status Active Problem Unintended Weight Loss Etiology likely related to right sided lung cancer Signs/Symptoms as evidenced by 23% weight loss x 7 months Status Active Problem Recommendation Dietitian Adjust to liberal regular diet due to signs and Recommendations/ symptoms of malnutrition. Changes Discontinue 237ml ensure surgery TID with medpass and replace with 120ml EPHP 4x daily with medpass, pt prefers chocolate flavor. If pt continues to lose weight and has poor PO recommend nutrition support. Will monitor weight trends and provided additional ONS at needed. Weight / BMI Weight Weight: 131 lb 13.383 oz Body Mass Index (BMI) 17.4 ABG / Lab / Microbiology Data 07/07/25 05:38 07/07/25 05:38 Laboratory: Laboratory Results - last 24 hr 07/04/25 07:50: Crossmatch See Detail 07/06/25 16:35: POC Glucose 213 H 07/06/25 22:20: POC Glucose 183 H 07/07/25 05:38: WBC 10.5, RBC 3.59 L, Hgb 8.0 L, Hct 25.6 L, MCV 71.3 L, MCH 22.3 L, MCHC 31.3 L, RDW Std Deviation 54.1 H, RDW Coeff of Tiffany 21.1 H, Plt Count 234, MPV 9.7, Immature Gran % (Auto) 0.400, Neut % (Auto) 71.4 H, Lymph % (Auto) 19.0, [place] % (Auto) 7.8, Eos % (Auto) 1.3, Baso % (Auto) 0.1, Absolute Neuts (auto) 7.5, Absolute Lymphs (auto) 1.99, Nucleated RBC % 0, Platelet Estimate ADEQUATE, Polychromasia 1+, Anisocytosis 1+, Sodium 136, Potassium 4.4,Chloride 104, Carbon Dioxide 23.0, Anion Gap 9, BUN 21 H, Creatinine 0.90, EstimCreat Clear Calc 58.14, Est GFR (MDRD) Non-Af 88, BUN/Creatinine Ratio 23.6 H, Glucose 186 H, Calcium 8.7 07/07/25 06:22: POC Glucose 185 H 07/07/25 11:40: POC Glucose 208 H D/C Instructions DC O2, CPAP, BIPAP Needs Home O2 Discharge instructions: Yes Type of respiratory needs?: Oxygen Oxygen frequency: Continuous Continuous oxygen liters per minute: 2 DC home with Oxygen: Yes Home O2 MD Review: I have reviewed the oxygen testing, and the patient qualifies for home oxygen equipment and portability. The patient is mobile in the home and the community. Meaningful Use Info Meaningful Use Meaningful Use Diagnoses (Choose all that apply): None applicable Discharge Plan Admission Admit Date/Time: 07/03/25 22:54 Primary Reason for Your Visit: Right hip fracture Attending Provider: Anthony Salgado Primary Care Provider: Carlene Haji Consulting Providers: Johanne Evasn; Nuno Campbell; Uche Felix Discharge Orders/Prescriptions Prescriptions: New acetaminophen 500 mg Tablet 1,000 mg PO Q8 Qty: 0 0RF Rx Instructions: 1 g every 8 hourly for 1 week and then Q8 hourly as needed for severe pain Eliquis 5 mg Tablet 2.5 mg PO BID 28 Days Qty: 28 0RF Rx Instructions: Start from 07/08/2025. Discontinue if platelet count drops less than 50,000 or hemoglobin less than 8 g% Continued gabapentin 300 MG capsule 300 mg PO TID cyclobenzaprine 10 mg Tablet 10 mg PO TID PRN (Reason: muscle spasms) amlodipine 5 mg Tablet 10 mg PO QHS budesonide-formoterol [Symbicort] 80-4.5 mcg/actuation Hfa Aerosol Inhaler 2 puff INHALATION BID sildenafil 100 mg Tablet 100 mg PO DAILY PRN (Reason: Erectile Dysfunction) atorvastatin 80 mg tablet 80 mg PO QHS Qty: 90 0RF insulin aspart U-100 [Novolog FlexPen U-100 Insulin] 100 unit/mL (3 mL) insulin pen 10 unit subcut TIDCM ropinirole 1 mg tablet 1 mg PO QHS insulin glargine [Lantus Solostar U-100 Insulin] 100 unit/mL (3 mL) insulin pen 10 unit subcut QPM Rx Instructions: PT STATES USES 10-15U QHS magnesium hydroxide [Gentle Laxative (mag hydrox)] 400 mg/5 mL suspension 5 ml PO DAILY PRN (Reason: constipation) sennosides-docusate sodium [Senna with Docusate Sodium] 8.6-50 mg tablet 2 tab-cap PO DAILY melatonin 3 mg tablet 3 mg PO QHS polyethylene glycol 3350 17 gram powder in packet 17 g PO DAILY ferrous sulfate [Feosol] 325 mg (65 mg iron) tablet 325 mg PO .every other day lidocaine 5 % adhesive patch,medicated 2 patch topical DAILY PRN (Reason: pain) Rx Instructions: leave on most painful area for up to 12 hrs cyclopentolate 2 % drops 1 drp LEFT EYE QHS calcium carbonate 500 mg calcium (1,250 mg) tablet 1,500 mg PO DAILY polyvinyl alcohol-povidone 1.4-0.6 % drops 1 drp ophthalmic (eye) 4X/DAY Rx Instructions: 1 drop each eye; pantoprazole [Protonix] 40 mg tablet,delayed release (DR/EC) 40 mg PO DAILY prednisolone acetate 1 % drops,suspension 1 drp LEFT EYE Q6H tiotropium-olodaterol 2.5-2.5 mcg/actuation mist 2 puff inhalation DAILY nicotine [Nicoderm CQ] 14 mg/24 hr patch 24 hour 1 patch transdermal DAILY Rx Instructions: apply every morning and remove at HS albuterol 90 mcg/actuation aerosol 90 mcg inhalation Q4H PRN Changed oxycodone 5 mg tablet 2.5 mg PO Q6H PRN (Reason: pain) 3 Days Qty: 7 0RF Held aspirin 81 mg Tablet,Delayed Release (Dr/Ec) 81 mg PO DAILY Hold Instructions: Hold while taking Eliquis. Discontinued acetaminophen 325 mg tablet 650 mg PO Q4H PRN (Reason: pain) Referrals / Follow Up: Nuno Campbell MD [Med Staff - Active Staff] - Within 2 Weeks Carlene Haji NP-C [Primary Care Provider] - Within 2 Weeks Disposition Disposition (needs filled in before D/C Order can be placed): Custodial Facility Charges/Coding Visit Charges Inpatient E&M: 08347 Disch Hosp >30min 07/07/25 1518 <Electronically signed by Anthony Salgado MD> Cosigner Signature (if applicable): CC: POWER BARKER OPERATOR-C Carlene Haji; Dr. Anthony Salgado MD; Dr. Nuno Campbell MD~ Signed [facility] Work Phone: [phone]) 330-731108-13-2025 Discharge summary Author Anthony Salgado [facility] Note Date/Time July 07, 2025 3: 16pm [facility] Medical Records Department [address] [place] [address] Transfer to [facility] MR#: [id number] Acct: [id number] Name: ITZEL ALONZO Rep #:[id number] : 1950 75 From: Anthony Kiser PCP: SID Haro Status:ADM IN Certification of patient admission REQUIRED AT TIME OF ADMISSION. I CERTIFY THAT POST-HOSPITAL ECF SERVICES ARE REQUIRED TO BE GIVEN ON AN IN-PATIENT BASIS BECAUSE OF THE ABOVE NAMED PATIENT'S NEED FOR INTERMEDIATE CARE ON A CONTINUING BASIS FOR THE CONDITION(S) FOR WHICH HE/SHE WAS RECEIVING IN-PATIENT HOSPITAL SERVICES PRIOR TO HIS/HER TRANSFER TO THE [facility]. 07/07/25 1516<Electronically signed by Anthony Salgado MD> Diet Diet Order/Speech Therapy: INPATIENT Hospital Diet / Speech Therapy Order(s) 07/05/25 10:37 Diet: Regular - General Food consistency:: Regular Liquid Consistency:: Regular/Thin Routine Orders/Code Status Suppository Type: Dulcolax 10mg Suppository Frequency: Daily PRN Routine Lab Work: CBC (CBC in 3 days) DC O2, CPAP, BIPAP needs Home O2 Discharge instructions: Yes Type of respiratory needs?: Oxygen Oxygen frequency: Continuous Continuous oxygen liters per minute: 2 Wound(s) right hip: Wound Type: Surgical Incision Therapies Extremity Affected:: Bilateral Lower Physical Therapy: Eval and Treat Occupational Therapy: Eval and Treat Speech Therapy: Eval and Treat Problem/Diagnosis (1) Closed intertrochanteric fracture of right hip: Status: Acute Code(s): S72.141A - Displaced intertrochanteric fracture of right femur, initial encounter for closed fracture (2) Fall: Status: Acute Code(s): W19.XXXA - Unspecified fall, initial encounter Plan Patient is a 75-year-old gentleman who experienced for with resultant right hip pain.Imaging studies obtained on admission did show Fracture of the right greater trochanter, extending into the intertrochanteric line. Admitted to regular nursing floor with consultation placed orthopedic surgeon 1. Fall with right hip fracture .Imaging studies obtained on admission did show Fracture of the right greater trochanter, extending into the intertrochanteric line. Admitted to regular nursing floor treatment initiated with with immobilization, pain management consultation placed to orthopedic surgery. Decision regarding surgical intervention deferred to orthopedic surgery. - Patient perioperative Risk assessment as documented by admitting physician 07/05: Right hip ORIF with intramedullary nail fixation, locked on 07/04/[address] Nuno Campbell. Mild tenderness present. Patient on pain medication. 07/06: Still complain of pain over right hip area. 07/24: Patient sitting on the recliner. Pain is better. Waiting for pre-CERT 2. Physical deconditioning/debility secondary to above ? Requested for PT OT eval and manager social services to assist with discharge planning 3. Right sided lung cancer (suprahilar, unclear exact specific type) with associated hypercalcemia of malignancy [facility] Patient to resume care following discharge 4. Hematuria ? Apparently traumatic following Epperson catheter insertion plan is to initiate CBI if hematuria does not resolve 5. Anemia ? Secondary to chronic disorder/anemia of malignancy. Patient was typed and crossmatched for 2 unit PRBC, subsequently monitoring H&H and transfuse if patient becomes symptomatic or hemoglobin falls below 7 07/06: Patient baseline hemoglobin is about 8.4. Gradually dropped to 7.5 and then 6.6 today. 1 unit of PRBC ordered. Hold Eliquis. Monitor CBC tomorrow 07/07: H&H improved to 8.0/25.6%. Had 1 unit of PRBC transfusion. 6. Diabetes mellitus type II -patient's oral hypoglycemics held. Placed on long acting insulin, Accu-Cheks a.c. and at bedtime and covered with sliding scale insulin 07/05: Glucoses elevated 180-290. Started on Lantus 10 and subcutaneous daily. 7. Tobacco dependence ? Counseled on cessation, offered nicotine patch for tobacco cravings 8. GERD ? On PPI 9. COPD ? Not in exacerbation aerosol treatments as needed 10. Dyslipidemia ? Patient is on atorvastatin did continue home dose 11. 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 Restless leg syndrome ? Patient is on ropinirole we will continue 13. Severe protein calorie malnutrition ? Evidenced by reduced BMI muscle wasting and decreased oral intake. Consult placed to dietitian Laboratory Results 07/04/25 07:50: Crossmatch See Detail 07/06/25 16:35: POC Glucose 213 H 07/06/25 22:20: POC Glucose 183 H 07/07/25 05:38: WBC 10.5, RBC 3.59 L, Hgb 8.0 L, Hct 25.6 L, MCV 71.3 L, MCH 22.3 L, MCHC 31.3 L, RDW Std Deviation 54.1 H, RDW Coeff of Tiffany 21.1 H, Plt Count 234, MPV 9.7, Immature Gran % (Auto) 0.400, Neut % (Auto) 71.4 H, Lymph % (Auto) 19.0, [place] % (Auto) 7.8, Eos % (Auto) 1.3, Baso % (Auto) 0.1, Absolute Neuts (auto) 7.5, Absolute Lymphs (auto) 1.99, Nucleated RBC % 0, Platelet Estimate ADEQUATE, Polychromasia 1+, Anisocytosis 1+, Sodium 136, Potassium 4.4,Chloride 104, Carbon Dioxide 23.0, Anion Gap 9, BUN 21 H, Creatinine 0.90, EstimCreat Clear Calc 58.14, Est GFR (MDRD) Non-Af 88, BUN/Creatinine Ratio 23.6 H, Glucose 186 H, Calcium 8.7 07/07/25 06:22: POC Glucose 185 H 07/07/25 11:40: POC Glucose 208 H Clinical Impression(s) from Imaging Studies Hip/Pelvis X-Ray 07/03/25 20:20 IMPRESSION: Fracture of the right greater trochanter, extending into the intertrochanteric line. Malignancy can not be excluded. Reading Location: [id number] Lower Extremity CT 07/03/25 21:54 IMPRESSION: Acute, moderately comminuted and impacted right intertrochanteric femoral fracture. No aggressive osseous lesions. Reading Location: [facility] Hip X-Ray 07/04/25 10:00 IMPRESSION: Postsurgical changes for repair of right femoral fracture with no acute complications. Reading Location: [facility] Allergies/Procedures Done in Hospital Allergies No Known Allergies Allergy (Verified 05/11/25 14:05) Type of Care/Length of Stay Estimated LOS: Convalescent Care Less Than 30 days Type of Care Needed: Skilled Rehab Potential: Good Prognosis: Good Additional Orders/Day of Discharge Day of Discharge: 07/07/25 Dietary and Speech Recommendations Dietitian Recommendations/Changes: Adjust to liberal regular diet due to signs and symptoms of malnutrition. Discontinue 237ml ensure surgery TID with medpass and replace with 120ml EPHP 4xdaily with medpass, pt prefers chocolate flavor. If pt continues to lose weight and has poor PO recommend nutrition support. Will monitor weight trends and provided additional ONS at needed. Discharge Plan Admission Admit Date/Time: 07/03/25 22:54 Primary Reason for Your Visit: Right hip fracture Attending Provider: Anthony Salgado Primary Care Provider: Carlene Haji Consulting Providers: Johanne Evans; Nuno Campbell; Uche Felix Discharge Orders/Prescriptions Prescriptions: New acetaminophen 500 mg Tablet 1,000 mg PO Q8 Qty: 0 0RF Rx Instructions: 1 g every 8 hourly for 1 week and then Q8 hourly as needed for severe pain Eliquis 5 mg Tablet 2.5 mg PO BID 28 Days Qty: 28 0RF Rx Instructions: Start from 07/08/2025. Discontinue if platelet count drops less than 50,000 or hemoglobin less than 8 g% Continued gabapentin 300 MG capsule 300 mg PO TID cyclobenzaprine 10 mg Tablet 10 mg PO TID PRN (Reason: muscle spasms) amlodipine 5 mg Tablet 10 mg PO QHS budesonide-formoterol [Symbicort] 80-4.5 mcg/actuation Hfa Aerosol Inhaler 2 puff INHALATION BID sildenafil 100 mg Tablet 100 mg PO DAILY PRN (Reason: Erectile Dysfunction) atorvastatin 80 mg tablet 80 mg PO QHS Qty: 90 0RF insulin aspart U-100 [Novolog FlexPen U-100 Insulin] 100 unit/mL (3 mL) insulin pen 10 unit subcut TIDCM ropinirole 1 mg tablet 1 mg PO QHS insulin glargine [Lantus Solostar U-100 Insulin] 100 unit/mL (3 mL) insulin pen 10 unit subcut QPM Rx Instructions: PT STATES USES 10-15U QHS magnesium hydroxide [Gentle Laxative (mag hydrox)] 400 mg/5 mL suspension 5 ml PO DAILY PRN (Reason: constipation) sennosides-docusate sodium [Senna with Docusate Sodium] 8.6-50 mg tablet 2 tab-cap PO DAILY melatonin 3 mg tablet 3 mg PO QHS polyethylene glycol 3350 17 gram powder in packet 17 g PO DAILY ferrous sulfate [Feosol] 325 mg (65 mg iron) tablet 325 mg PO .every other day lidocaine 5 % adhesive patch,medicated 2 patch topical DAILY PRN (Reason: pain) Rx Instructions: leave on most painful area for up to 12 hrs cyclopentolate 2 % drops 1 drp LEFT EYE QHS calcium carbonate 500 mg calcium (1,250 mg) tablet 1,500 mg PO DAILY polyvinyl alcohol-povidone 1.4-0.6 % drops 1 drp ophthalmic (eye) 4X/DAY Rx Instructions: 1 drop each eye; pantoprazole [Protonix] 40 mg tablet,delayed release (DR/EC) 40 mg PO DAILY prednisolone acetate 1 % drops,suspension 1 drp LEFT EYE Q6H tiotropium-olodaterol 2.5-2.5 mcg/actuation mist 2 puff inhalation DAILY nicotine [Nicoderm CQ] 14 mg/24 hr patch 24 hour 1 patch transdermal DAILY Rx Instructions: apply every morning and remove at HS albuterol 90 mcg/actuation aerosol 90 mcg inhalation Q4H PRN Changed oxycodone 5 mg tablet 2.5 mg PO Q6H PRN (Reason: pain) 3 Days Qty: 7 0RF Held aspirin 81 mg Tablet,Delayed Release (Dr/Ec) 81 mg PO DAILY Hold Instructions: Hold while taking Eliquis. Discontinued acetaminophen 325 mg tablet 650 mg PO Q4H PRN (Reason: pain) Referrals / Follow Up: Nuno Campbell MD [Med Staff - Active Staff] - Within 2 Weeks Adithya,Carlene N, POWER BARKER OPERATOR-C [Primary Care Provider] - Within 2 Weeks Disposition Disposition (needs filled in before D/C Order can be placed): Custodial Facility (1) Closed intertrochanteric fracture of right hip Qualifiers: Encounter type: initial encounter Fracture alignment: displaced Qualified Code(s): S72.141A - Displaced intertrochanteric fracture of right femur, initialencounter for closed fracture 07/07/25 1516 <Electronically signed by Anthony Salgado MD> Cosigner Signature (if applicable): CC: POWER BARKER OPERATOR-René Haji; Dr. Johanne Evans MD; Dr. Uche Felix MD; Dr. Nuno Campbell MD ~ [facility] Work Phone: [phone] [facility] Damian [facility] Note Date/Time July 07, 2025 2: 03pm [facility] Medical Records Department [address] [place] [address] Progress Note - Hospitalist 07/07/25 1401 MR#: [id number] Acct: [id number] Name: ITZEL ALONZO Rep #:[id number] : 1950 75 From: Anthony Kiser PCP: SID Haro Status:ADM IN Location: [place] [id number] Reason for Visit Chief Complaint: Fall, R hip pain. Objective Data Objective Data Vital Signs: Vital Signs Temp Pulse Resp BP Pulse Ox O2 Del Method O2 Flow Rate 98.9 F 101 H 18 146/94 H 91 Nasal Cannula 2 07/06/25 22:04 07/07/25 07:10 07/07/25 07:10 07/06/25 22:04 07/07/25 07:46 07/07/25 07:46 07/07/25 09:32 FiO2 2 07/05/25 21:24 Oxygen Flow Rate (L/min) 2 Oxygen Delivery Method Nasal Cannula Weight: 131 lb 13.383 oz Body Mass Index (BMI) 17.4 Intake & Output: Intake and Output for Last 24 Hours 07/05/25 07/06/25 07/07/25 23:59 23:59 23:59 Intake Total 1146.25 / 1346.25 440 / 440 150 / 150 Output Total 450 / 450 275 / 550 475 / 475 Balance 696.25 / 896.25 165 / -110 -325 / -325 Medical Nutrition Assessment Dietitian: Malnutrition Criteria Met Start: 07/05/25 10:37 Freq: Status: Active Protocol: Document 07/05/25 10:37 SB (Rec: 07/05/25 10:37 SB [id number]) Nutrition Malnutrition Evidence of Yes Malnutrition Exists Malnutrition (severe Chronic ): Evidenced By Suboptimal Energy Intake (Severe),Weight Loss (Severe), Physical Changes (Severe) Clinical Problem Chronic Disease or Condition Related Malnutrition Etiology severe related to inadequate energy intake and increased energy expenditure due to lung cancer Signs/Symptoms as evidenced by PO meeting <75% of estimated nutrition needs x 2-3 days, 23% unintentional weight loss x 7 months, and severe muscle/fat wasting in clavicle, temples, and orbital regions. Status Active Problem Unintended Weight Loss Etiology likely related to right sided lung cancer Signs/Symptoms as evidenced by 23% weight loss x 7 months Status Active Problem Recommendation Dietitian Adjust to liberal regular diet due to signs and Recommendations/ symptoms of malnutrition. Changes Discontinue 237ml ensure surgery TID with medpass and replace with 120ml EPHP 4x daily with medpass, pt prefers chocolate flavor. If pt continues to lose weight and has poor PO recommend nutrition support. Will monitor weight trends and provided additional ONS at needed. Lab / Micro Data 07/07/25 05:38 07/07/25 05:38 Labs: Laboratory Results - last 24 hr 07/04/25 07:50: Crossmatch See Detail 07/06/25 16:35: POC Glucose 213 H 07/06/25 22:20: POC Glucose 183 H 07/07/25 05:38: WBC 10.5, RBC 3.59 L, Hgb 8.0 L, Hct 25.6 L, MCV 71.3 L, MCH 22.3 L, MCHC 31.3 L, RDW Std Deviation 54.1 H, RDW Coeff of Tiffany 21.1 H, Plt Count 234, MPV 9.7, Immature Gran % (Auto) 0.400, Neut % (Auto) 71.4 H, Lymph % (Auto) 19.0, [place] % (Auto) 7.8, Eos % (Auto) 1.3, Baso % (Auto) 0.1, Absolute Neuts (auto) 7.5, Absolute Lymphs (auto) 1.99, Nucleated RBC % 0, Platelet Estimate ADEQUATE, Polychromasia 1+, Anisocytosis 1+, Sodium 136, Potassium 4.4,Chloride 104, Carbon Dioxide 23.0, Anion Gap 9, BUN 21 H, Creatinine 0.90, EstimCreat Clear Calc 58.14, Est GFR (MDRD) Non-Af 88, BUN/Creatinine Ratio 23.6 H, Glucose 186 H, Calcium 8.7 07/07/25 06:22: POC Glucose 185 H 07/07/25 11:40: POC Glucose 208 H Physical Exam Narrative Seen and examined. I talked to the patient's daughter, Kimberley in the patient's room. Complained ofpain about her right hip area. Patient had right hip surgery done for right hip displaced intertrochanteric fracture Physical exam General: Alert, Oriented x3, Cooperative HEENT: Atraumatic, PERRLA, EOMI, Normocephalic. Oral: No Gingival or Mucosal Lesions/ Ulcerations Neck: Supple, No JVD, Negative Carotid Bruits Chest wall/Lungs: Air entry diminished in bilateral lung bases. No crepitation/rhonchi Cardiovascular: Regular rate and rhythm, Normal S1,S2, No M/G/R Abdomen: Bowel Sounds Present, Soft, Non Tender, Non-Distended : No dysuria. No renal angle tenderness. No suprapubic tenderness. Extremities: No edema, Capillary Refill Less than 3 Seconds Skin: Right hip surgical dressing is dry. Musculoskeletal: Tenderness around right hip area. No hematoma Neurological: Cranial nerves II-XII grossly intact, DTR 2+/4. No acute focal neurological deficit. Psych/Mental Status: Dementia, irritable Assessment & Plan Assessment/Plan (1) Closed intertrochanteric fracture of right hip: QUALIFIERS: Encounter type: initial encounter Fracture alignment:displaced Qualified Code(s): S72.141A - Displaced intertrochanteric fracture ofright femur, initial encounter for closed fracture (2) Fall: PLAN: Plan Patient is a 75-year-old gentleman who experienced for with resultant right hip pain.Imaging studies obtained on admission did show Fracture of the right greater trochanter, extending into the intertrochanteric line. Admitted to regular nursing floor with consultation placed orthopedic surgeon 1. Fall with right hip fracture .Imaging studies obtained on admission did show Fracture of the right greater trochanter, extending into the intertrochanteric line. Admitted to regular nursing floor treatment initiated with with immobilization, pain management consultation placed to orthopedic surgery. Decision regarding surgical intervention deferred to orthopedic surgery. - Patient perioperative Risk assessment as documented by admitting physician 07/05: Right hip ORIF with intramedullary nail fixation, locked on 07/04/[address] Nuno Campbell. Mild tenderness present. Patient on pain medication. 07/06: Still complain of pain over right hip area. 07/24: Patient sitting on the recliner. Pain is better. Waiting for pre-CERT 2. Physical deconditioning/debility secondary to above ? Requested for PT OT eval and manager social services to assist with discharge planning 3. Right sided lung cancer (suprahilar, unclear exact specific type) with associated hypercalcemia of malignancy with recent transition to OR system. Patient to resume care following discharge 4. Hematuria ? Apparently traumatic following Epperson catheter insertion plan is to initiate CBI if hematuria does not resolve 5. Anemia ? Secondary to chronic disorder/anemia of malignancy. Patient was typed and crossmatched for 2 unit PRBC, subsequently monitoring H&H and transfuse if patient becomes symptomatic or hemoglobin falls below 7 07/06: Patient baseline hemoglobin is about 8.4. Gradually dropped to 7.5 and then 6.6 today. 1 unit of PRBC ordered. Hold Eliquis. Monitor CBC tomorrow 07/07: H&H improved to 8.0/25.6%. Had 1 unit of PRBC transfusion. 6. Diabetes mellitus type II -patient's oral hypoglycemics held. Placed on long acting insulin, Accu-Cheks a.c. and at bedtime and covered with sliding scale insulin 07/05: Glucoses elevated 180-290. Started on Lantus 10 and subcutaneous daily. 7. Tobacco dependence ? Counseled on cessation, offered nicotine patch for tobacco cravings 8. GERD ? On PPI 9. COPD ? Not in exacerbation aerosol treatments as needed 10. Dyslipidemia ? Patient is on atorvastatin did continue home dose 11. 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 Restless leg syndrome ? Patient is on ropinirole we will continue 13. Severe protein calorie malnutrition ? Evidenced by reduced BMI muscle wasting and decreased oral intake. Consult placed to dietitian Laboratory Results 07/04/25 07:50: Crossmatch See Detail 07/06/25 16:35: POC Glucose 213 H 07/06/25 22:20: POC Glucose 183 H 07/07/25 05:38: WBC 10.5, RBC 3.59 L, Hgb 8.0 L, Hct 25.6 L, MCV 71.3 L, MCH 22.3 L, MCHC 31.3 L, RDW Std Deviation 54.1 H, RDW Coeff of Tiffany 21.1 H, Plt Count 234, MPV 9.7, Immature Gran % (Auto) 0.400, Neut % (Auto) 71.4 H, Lymph % (Auto) 19.0, [place] % (Auto) 7.8, Eos % (Auto) 1.3, Baso % (Auto) 0.1, Absolute Neuts (auto) 7.5, Absolute Lymphs (auto) 1.99, Nucleated RBC % 0, Platelet Estimate ADEQUATE, Polychromasia 1+, Anisocytosis 1+, Sodium 136, Potassium 4.4,Chloride 104, Carbon Dioxide 23.0, Anion Gap 9, BUN 21 H, Creatinine 0.90, EstimCreat Clear Calc 58.14, Est GFR (MDRD) Non-Af 88, BUN/Creatinine Ratio 23.6 H, Glucose 186 H, Calcium 8.7 07/07/25 06:22: POC Glucose 185 H 07/07/25 11:40: POC Glucose 208 H Clinical Impression(s) from Imaging Studies Hip/Pelvis X-Ray 07/03/25 20:20 IMPRESSION: Fracture of the right greater trochanter, extending into the intertrochanteric line. Malignancy can not be excluded. Reading Location: [facility] Lower Extremity CT 07/03/25 21:54 IMPRESSION: Acute, moderately comminuted and impacted right intertrochanteric femoral fracture. No aggressive osseous lesions. Reading Location: [facility] Hip X-Ray 07/04/25 10:00 IMPRESSION: Postsurgical changes for repair of right femoral fracture with no acute complications. Reading Location: [facility] Charges/Coding Visit Charges Inpatient E&M: 14795 Subs Hosp L2 07/07/25 1403 <Electronically signed by Anthony Salgado MD> Cosigner Signature (if applicable): CC: ~ Signed [facility] Work Phone: [phone]) 431-694508-13-2025 Discharge summary [facility] Medical Records Department [address] [place] [address] Discharge Summary 07/07/25 1517 MR#: [id number] Acct: [id number] Name: ITZEL ALONZO Rep #:[id number] : 1950 75 From: Anthony Kiser PCP: SID Haro Status:ADM IN [place] [id number] Providers Date of Admission: 07/03/25 Date of Discharge: 07/07/25 Primary Care Physician: SID Haro Consultations 07/03/25 23:57 Consult: Orthopedics Routine Consulting Provider: Nuno Campbell Reason for Consult: Fall, R hip fracture EMERGENT Consult: No MD Notified: Yes Date Notified: 07/03/25 Time Notified: 23:14 Method of Notification: Verbal Reason For Visit: FALL, R HIP FX Diagnosis Discharge Diagnosis (1) Closed intertrochanteric fracture of right hip: Status: Acute Code(s): S72.141A - Displaced intertrochanteric fracture of right femur, initial encounter for closed fracture Qualifiers: Encounter type: initial encounter Fracture alignment: displaced Qualified Code(s): S72.141A - Displaced intertrochanteric fracture of right femur, initial encounter for closed fracture (2) Fall: Status: Acute Code(s): W19.XXXA - Unspecified fall, initial encounter Plan Patient is a 75-year-old gentleman who experienced for with resultant right hip pain.Imaging studies obtained on admission did show Fracture of the right greater trochanter, extending into the intertrochanteric line. Admitted to regular nursing floor with consultation placed orthopedic surgeon 1. Fall with right hip fracture .Imaging studies obtained on admission did show Fracture of the right greater trochanter, extendinginto the intertrochanteric line. Admitted to regular nursing floor treatment initiated with with immobilization, pain management consultation placed to orthopedic surgery. Decision regarding surgical intervention deferred to orthopedic surgery. - Patient perioperative Risk assessment as documented by admitting physician 07/05: Right hip ORIF with intramedullary nail fixation, locked on 07/04/[address] Nuno Campbell. Mild tenderness present. Patient on pain medication. 07/06: Still complain of pain over right hip area. 07/07: Patient sitting on the recliner. Pain is better. Pre-CERT obtained. Patient did not discharge. Advised to resume Eliquis 2.5 mg twice daily from tomorrow with follow-up CBC in 3 days recheck with PCP. Hold baby aspirin whiletaking Eliquis. 2. Physical deconditioning/debility secondary to above ? Requested for PT OT eval and manager social services to assist with discharge planning 3. Right sided lung cancer (suprahilar, unclear exact specific type) with associated hypercalcemia of malignancy with recent transition to OR system. Patient to resume care following discharge 4. Hematuria ? Apparently traumatic following Epperson catheter insertion plan is to initiate CBI if hematuria doesnot resolve 5. Anemia ? Secondary to chronic disorder/anemia of malignancy. Patient was typed and crossmatched for 2 unitPRBC, subsequently monitoring H&H and transfuse if patient becomes symptomatic or hemoglobin falls below 7 07/06: Patient baseline hemoglobin is about 8.4. Gradually dropped to 7.5 and then 6.6 today. 1 unitof PRBC ordered. Hold Eliquis. Monitor CBC tomorrow 07/07: H&H improved to 8.0/25.6%. Had 1 unit of PRBC transfusion. 6. Diabetes mellitus type II -patient's oral hypoglycemics held. Placed on long acting insulin, Accu-Cheks a.c. and at bedtime and covered with sliding scale insulin 07/05: Glucoses elevated 180-290. Started on Lantus 10 and subcutaneous daily. 07/07: Glucoses reasonably controlled. 7. Tobacco dependence ? Counseled on cessation, offered nicotine patch for tobacco cravings 8. GERD ? On PPI 9. COPD ? Not in exacerbation aerosol treatments as needed 10. Dyslipidemia ? Patient is on atorvastatin did continue home dose 11. 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 Restless leg syndrome ? Patient is on ropinirole we will continue 13. Severe protein calorie malnutrition ? Evidenced by reduced BMI muscle wasting and decreased oral intake. Consult placed to dietitian Discharge medication reconciliation done. Discharge follow-up instructions completed. Discharge process discussed with the patient and all questions wereanswered to patient's satisfaction. Follow with PCP in 1 to 2 weeks Total time spent, exact 35 minutes on discharge meds reconciliation, examination, coordination of care with nurses and ancillary staff, review of imaging and blood test and discussion with the patient on follow-up instructions. Laboratory Results 07/04/25 07:50: Crossmatch See Detail 07/06/25 16:35: POC Glucose 213 H 07/06/25 22:20: POC Glucose 183 H 07/07/25 05:38: WBC 10.5, RBC 3.59 L, Hgb 8.0 L, Hct 25.6 L, MCV 71.3 L, MCH 22.3 L, MCHC 31.3 L, RDW Std Deviation 54.1 H, RDW Coeff of Tiffany 21.1 H, Plt Count 234, MPV 9.7, Immature Gran % (Auto) 0.400, Neut % (Auto) 71.4 H, Lymph % (Auto) 19.0, [place] % (Auto) 7.8, Eos % (Auto) 1.3, Baso % (Auto) 0.1, Absolute Neuts (auto) 7.5, Absolute Lymphs (auto) 1.99, Nucleated RBC % 0, Platelet Estimate ADEQUATE, Polychromasia 1+, Anisocytosis 1+, Sodium 136, Potassium 4.4,Chloride 104, Carbon Dioxide 23.0, Anion Gap 9, BUN 21 H, Creatinine 0.90, EstimCreat Clear Calc 58.14, Est GFR (MDRD) Non-Af 88, BUN/Creatinine Ratio 23.6 H, Glucose 186 H, Calcium 8.7 07/07/25 06:22: POC Glucose 185 H 07/07/25 11:40: POC Glucose 208 H Clinical Impression(s) from Imaging Studies Hip/Pelvis X-Ray 07/03/25 20:20 IMPRESSION: Fracture of the right greater trochanter, extending into the intertrochanteric line. Malignancy cannot be excluded. Reading Location: [id number] Lower Extremity CT 07/03/25 21:54 IMPRESSION: Acute, moderately comminuted and impacted right intertrochanteric femoral fracture. No aggressive osseous lesions. Reading Location: [facility] Hip X-Ray 07/04/25 10:00 IMPRESSION: Postsurgical changes for repair of right femoral fracture with no acute complications. Reading Location: [facility] Medications at Discharge Home Medications gabapentin 300 mg capsule 300 mg PO TID neuropathy 02/24/15 amlodipine 5 mg tablet 10 mg PO QHS blood pressure 05/09/21 aspirin 81 mg tablet,delayed release 81 mg PO DAILY heart health 05/09/21 Held on 07/07/25. Instructions: Hold while taking Eliquis. budesonide-formoterol HFA 80 mcg-4.5 mcg/actuation aerosol inhaler (Symbicort) 2puff inhalation BIDCOPD 05/09/21 cyclobenzaprine 10 mg tablet 10 mg PO TID PRN muscle spasms 05/09/21 sildenafil 100 mg tablet 100 mg PO DAILY PRN Erectile Dysfunction 05/09/21 atorvastatin 80 mg tablet 80 mg PO QHS cholesterol #90 tabs 05/12/21 insulin aspart U-100 100 unit/mL (3 mL) subcutaneous pen (Novolog FlexPen U-100 Insulin aspart) 10 unit subcut TIDCM DM 12/12/24 insulin glargine 100 unit/mL (3 mL) subcutaneous pen (Lantus Solostar U-100 Insulin) 10 unit subcutQPM Dm 05/04/25 magnesium hydroxide 400 mg/5 mL oral suspension (Gentle Laxative (magnesium hydroxide)) 5 ml PO DAILY PRN constipation 05/04/25 ropinirole 1 mg tablet 1 mg PO QHS rls 05/04/25 albuterol 90 mcg/actuation aerosol inhaler 90 mcg inhalation Q4H PRN sob 07/04/25 calcium carbonate 1,500 mg PO DAILY supplement 07/04/25 cyclopentolate 2 % eye drops 1 drp LEFT EYE QHS inflamation 07/04/25 ferrous sulfate 325 mg (65 mg iron) tablet (Feosol) 325 mg PO .every other day supplement 07/04/25 lidocaine 5 % topical patch 2 patch topical DAILY PRN pain 07/04/25 melatonin 3 mg tablet 3 mg PO QHS sleep 07/04/25 nicotine 14 mg/24 hr daily transdermal patch (Nicoderm CQ) 1 patch transdermal DAILY smoking cessation 07/04/25 pantoprazole 40 mg tablet,delayed release (Protonix) 40 mg PO DAILY heart burn 07/04/25 polyethylene glycol 3350 17 gram oral powder packet 17 g PO DAILY constipation 07/04/25 polyvinyl alcohol-povidone 1.4 %-0.6 % eye drops 1 drp ophthalmic (eye) 4X/DAY dry eye 07/04/25 prednisolone acetate 1 % eye drops,suspension 1 drp LEFT EYE Q6H inflamation 07/04/25 sennosides 8.6 mg-docusate sodium 50 mg tablet (Senna with Docusate Sodium) 2 tab-cap PO DAILY stool softener 07/04/25 tiotropium 2.5 mcg-olodaterol 2.5 mcg/actuation mist for inhalation 2 puff inhalation DAILY asthma 07/04/25 acetaminophen 500 mg tablet 1,000 mg (2 x 500 mg) PO Q8 #0 tabs 07/07/25 apixaban 5 mg tablet (Eliquis) 2.5 mg (1/2 x 5 mg) PO BID 4 weeks #28 tabs 07/07/25 oxycodone 5 mg tablet 2.5 mg (1/2 x 5 mg) PO Q6H PRN pain 3 days #7 tabs 07/07/25 Physical Exam Narrative Please see exam finding on the progress note for the same day Medical Records Data Medical Nutrition Assessment Dietitian: Malnutrition Criteria Met Start: 07/05/25 10:37 Freq: Status: Active Protocol: Document 07/05/25 10:37 SB (Rec: 07/05/25 10:37 SB [id number]) Nutrition Malnutrition Evidence of Yes Malnutrition Exists Malnutrition (severe Chronic ): Evidenced By Suboptimal Energy Intake (Severe),Weight Loss (Severe), Physical Changes (Severe) Clinical Problem Chronic Disease or Condition Related Malnutrition Etiology severe related to inadequate energy intake and increased energy expenditure due to lung cancer Signs/Symptoms as evidenced by PO meeting <75% of estimated nutrition needs x 2-3 days, 23% unintentional weight loss x 7 months, and severe muscle/fat wasting in clavicle, temples, and orbital regions. Status Active Problem Unintended Weight Loss Etiology likely related to right sided lung cancer Signs/Symptoms as evidenced by 23% weight loss x 7 months Status Active Problem Recommendation Dietitian Adjust to liberal regular diet due to signs and Recommendations/ symptoms of malnutrition. Changes Discontinue 237ml ensure surgery TID with medpass and replace with 120ml EPHP 4x daily with medpass, pt prefers chocolate flavor. If pt continues to lose weight and has poor PO recommend nutrition support. Will monitor weight trends and provided additional ONS at needed. Weight / BMI Weight Weight: 131 lb 13.383 oz Body Mass Index (BMI) 17.4 ABG / Lab / Microbiology Data 07/07/25 05:38 07/07/25 05:38 Laboratory: Laboratory Results - last 24 hr 07/04/25 07:50: Crossmatch See Detail 07/06/25 16:35: POC Glucose 213 H 07/06/25 22:20: POC Glucose 183 H 07/07/25 05:38: WBC 10.5, RBC 3.59 L, Hgb 8.0 L, Hct 25.6 L, MCV 71.3 L, MCH 22.3 L, MCHC 31.3 L, RDW Std Deviation 54.1 H, RDW Coeff of Tiffany 21.1 H, Plt Count 234, MPV 9.7, Immature Gran % (Auto) 0.400, Neut % (Auto) 71.4 H, Lymph % (Auto) 19.0, [place] % (Auto) 7.8, Eos % (Auto) 1.3, Baso % (Auto) 0.1, Absolute Neuts (auto) 7.5, Absolute Lymphs (auto) 1.99, Nucleated RBC % 0, Platelet Estimate ADEQUATE, Polychromasia 1+, Anisocytosis 1+, Sodium 136, Potassium 4.4,Chloride 104, Carbon Dioxide 23.0, Anion Gap 9, BUN 21 H, Creatinine 0.90, EstimCreat Clear Calc 58.14, Est GFR (MDRD) Non-Af 88, BUN/Creatinine Ratio 23.6 H, Glucose 186 H, Calcium 8.7 07/07/25 06:22: POC Glucose 185 H 07/07/25 11:40: POC Glucose 208 H D/C Instructions DC O2, CPAP, BIPAP Needs Home O2 Discharge instructions: Yes Type of respiratory needs?: Oxygen Oxygen frequency: ContinuousContinuous oxygen liters per minute: 2 DC home with Oxygen: Yes Home O2 MD Review: I have reviewed the oxygen testing, and the patient qualifies for home oxygen equipment and portability. The patient is mobile in the home and the community. Meaningful Use Info Meaningful Use Meaningful Use Diagnoses (Choose all that apply): None applicable Discharge Plan Admission Admit Date/Time: 07/03/25 22:54 Primary Reason for Your Visit: Right hip fracture Attending Provider: Anthony Salgado Primary Care Provider: Carlene Haji Consulting Providers: Johanne Evans; Nuno Campbell; Uche Felix Discharge Orders/Prescriptions Prescriptions: New acetaminophen 500 mg Tablet 1,000 mg PO Q8 Qty: 0 0RF Rx Instructions: 1 g every 8 hourly for 1 week and then Q8 hourly as needed for severe pain Eliquis 5 mg Tablet 2.5 mg PO BID 28 Days Qty: 28 0RF Rx Instructions: Start from 07/08/2025. Discontinue if platelet count drops less than 50,000 or hemoglobin less than 8 g% Continued gabapentin 300 MG capsule 300 mg PO TID cyclobenzaprine 10 mg Tablet 10 mg PO TID PRN (Reason: muscle spasms) amlodipine 5 mg Tablet 10 mg PO QHS budesonide-formoterol [Symbicort] 80-4.5 mcg/actuation Hfa Aerosol Inhaler 2 puff INHALATION BID sildenafil 100 mg Tablet 100 mg PO DAILY PRN (Reason: Erectile Dysfunction) atorvastatin 80 mg tablet 80 mg PO QHS Qty: 90 0RF insulin aspart U-100 [Novolog FlexPen U-100 Insulin] 100 unit/mL (3 mL) insulin pen 10 unit subcut TIDCM ropinirole 1 mg tablet 1 mg PO QHS insulin glargine [Lantus Solostar U-100 Insulin] 100 unit/mL (3 mL) insulin pen 10 unit subcut QPM Rx Instructions: PT STATES USES 10-15U QHS magnesium hydroxide [Gentle Laxative (mag hydrox)] 400 mg/5 mL suspension 5 ml PO DAILY PRN (Reason: constipation) sennosides-docusate sodium [Senna with Docusate Sodium] 8.6-50 mg tablet 2 tab-cap PO DAILY melatonin 3 mg tablet 3 mg PO QHS polyethylene glycol 3350 17 gram powder in packet 17 g PO DAILY ferrous sulfate [Feosol] 325 mg (65 mg iron) tablet 325 mg PO .every other day lidocaine 5 % adhesive patch,medicated 2 patch topical DAILY PRN (Reason: pain) Rx Instructions: leave on most painful area for up to 12 hrs cyclopentolate 2 % drops 1 drp LEFT EYE QHS calcium carbonate 500 mg calcium (1,250 mg) tablet 1,500 mg PO DAILY polyvinyl alcohol-povidone 1.4-0.6 % drops 1 drp ophthalmic (eye) 4X/DAY Rx Instructions: 1 drop each eye; pantoprazole [Protonix] 40 mg tablet,delayed release (DR/EC) 40 mg PO DAILY prednisolone acetate 1 % drops,suspension 1 drp LEFT EYE Q6H tiotropium-olodaterol 2.5-2.5 mcg/actuation mist 2 puff inhalation DAILY nicotine [Nicoderm CQ] 14 mg/24 hr patch 24 hour 1 patch transdermal DAILY Rx Instructions: apply every morning and remove at HS albuterol 90 mcg/actuation aerosol 90 mcg inhalation Q4H PRN Changed oxycodone 5 mg tablet 2.5 mg PO Q6H PRN (Reason: pain) 3 Days Qty: 7 0RF Held aspirin 81 mg Tablet,Delayed Release (Dr/Ec) 81 mg PO DAILY Hold Instructions: Hold while taking Eliquis. Discontinued acetaminophen 325 mg tablet 650 mg PO Q4H PRN (Reason: pain) Referrals / Follow Up: Nuno Campbell MD [Med Staff - Active Staff] - Within 2 Weeks Carlene Haji, IKE-C [Primary Care Provider] - Within 2 Weeks Disposition Disposition (needs filled in before D/C Order can be placed): Custodial Facility Charges/Coding Visit Charges Inpatient E&M: 69085 Disch Hosp >30min 07/07/25 1518 Cosigner Signature (if applicable): CC: SID Haji; Dr. Anthony Salgado MD; Dr. Nuno Campbell MD~ Signed [facility]08-13-2025 [facility] Medical Records Department [address] [place] [address] Discharge Summary 07/07/25 1517 MR#: [id number] Acct: [id number] Name: ITZEL ALONZO Rep #: [id number] : 1950 75 From: Anthony Salgado MD PCP: SID Haro Status:ADM IN [place] [facility] [id number] Providers Date of Admission: 07/03/25 Date of Discharge: 07/07/25 Primary Care Physician: SID Haro Consultations 07/03/25 23:57 Consult: Orthopedics Routine Consulting Provider: Nuno Campbell Reason for Consult: Fall, R hip fracture EMERGENT Consult: No MD Notified: Yes Date Notified: 07/03/25 Time Notified: 23:14 Method of Notification: Verbal Reason For Visit: FALL, R HIP FX Diagnosis Discharge Diagnosis (1) Closed intertrochanteric fracture of right hip: Status: Acute Code(s): S72.141A - Displaced intertrochanteric fracture of right femur, initial encounter for closed fracture Qualifiers: Encounter type: initial encounter Fracture alignment: displaced Qualified Code(s): S 72.141A - Displaced intertrochanteric fracture of right femur, initial encounter for closed fracture (2) Fall: Status: Acute Code(s): W19.XXXA - Unspecified fall, initial encounter Plan Patient is a 75-year-old gentleman who experienced for with resultant right hip pain.Imaging studies obtained on admission did show Fracture of the right greater trochanter, extending into the intertrochanteric line. Admitted to regular nursing floor with consultation placed orthopedic surgeon 1. Fall with right hip fracture .Imaging studies obtained on admission did show Fracture of the right greater trochanter, extending into the intertrochanteric line. Admitted to regular nursing floor treatment initiated with with immobilization, pain management consultation placed to orthopedic surgery. Decision regarding surgical intervention deferred to orthopedic surgery. - Patient perioperative Risk assessment as documented by admitting physician 07/05: Right hip ORIF with intramedullary nail fixation, locked on 07/04/[address] Nuno Campbell. Mild tenderness present. Patient on pain medication. 07/06: Still complain of pain over right hip area. 07/07: Patient sitting on the recliner. Pain is better. Pre-CERT obtained. Patient did not discharge. Advised to resume Eliquis 2.5 mg twice daily from tomorrow with follow-up CBC in 3 days recheck with PCP. Hold baby aspirin while taking Eliquis. 2. Physical deconditioning/debility secondary to above ??? Requested for PT OT eval and manager social services to assist with discharge planning 3. Right sided lung cancer (suprahilar, unclear exact specific type) with associated hypercalcemia of malignancy with recent transition to OR system. Patient to resume care following discharge 4. Hematuria ??? Apparently traumatic following Epperson catheter insertion plan is to initiate CBI if hematuria does not resolve 5. Anemia ??? Secondary to chronic disorder/anemia of malignancy. Patient was typed and crossmatched for 2 unit PRBC, subsequently monitoring H H and transfuse if patient becomes symptomatic or hemoglobin falls below 7 07/06: Patient baseline hemoglobin is about 8.4. Gradually dropped to 7.5 and then 6.6 today. 1 unit of PRBC ordered. Hold Eliquis. Monitor CBC tomorrow 07/07: H H improved to 8.0/25.6%. Had 1 unit of PRBC transfusion. 6. Diabetes mellitus type II -patient's oral hypoglycemics held. Placed on long acting insulin, Accu-Cheks a.c. and at bedtime and covered with sliding scale insulin 07/05: Glucoses elevated 180-290. Started on Lantus 10 and subcutaneous daily. 07/07: Glucoses reasonably controlled. 7. Tobacco dependence ??? Counseled on cessation, offered nicotine patch for tobacco cravings 8. GERD ??? On PPI 9. COPD ??? Not in exacerbation aerosol treatments as needed 10. Dyslipidemia ??? Patient is on atorvastatin did continue home dose 11. 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 Restless leg syndrome ??? Patient is on ropinirole we will continue 13. Severe protein calorie malnutrition ??? Evidenced by reduced BMI muscle wasting and decreased oral intake. Consult placed to dietitian Discharge medication reconciliation done. Discharge follow-up instructions completed. Discharge process discussed with the patient and all questions were answered to patient's satisfaction. Follow with PCP in 1 to 2 weeks Total time spent, exact 35 minutes on discharge meds reconciliation, examination, coordination of care with nurses and ancillary staff, review of imaging and blood test and discussion with the patient on follow-up instructions. Laboratory Results 07/04/25 07:50: Crossmatch See Detail 07/06/25 16:35: POC Glucose 213 H 07/06/25 22:20: POC Glucose (more content not included)...[facility]08-13-2025 Discharge summary [facility] Medical Records Department [address] [place] [address] Transfer to [facility] MR#: [id number] Acct: [id number] Name: ITZEL ALONZO Rep #:[id number] : 1950 75 From: Anthony Kiser PCP: LUIS MIGUEL HaroC Status:ADM IN Certification of patient admission REQUIRED AT TIME OF ADMISSION. I CERTIFY THAT POST-HOSPITAL ECF SERVICES ARE REQUIRED TO BE GIVEN ON AN IN-PATIENT BASIS BECAUSE OF THE ABOVE NAMED PATIENT'S NEED FOR INTERMEDIATE CARE ON A CONTINUING BASIS FOR THE CONDITION(S) FOR WHICH HE/SHE WAS RECEIVING IN-PATIENT HOSPITAL SERVICES PRIOR TO HIS/HER TRANSFER TO THE ECF. 07/07/25 1516 Diet Diet Order/Speech Therapy: INPATIENT Hospital Diet / Speech Therapy Order(s) 07/05/25 10:37 Diet: Regular - General Food consistency:: Regular Liquid Consistency:: Regular/Thin Routine Orders/Code Status Suppository Type: Dulcolax 10mg Suppository Frequency: Daily PRN Routine Lab Work: CBC (CBC in 3 days) DC O2, CPAP, BIPAP needs Home O2 Discharge instructions: Yes Type of respiratory needs?: Oxygen Oxygen frequency: ContinuousContinuous oxygen liters per minute: 2 Wound(s) right hip: Wound Type: Surgical Incision Therapies Extremity Affected:: Bilateral Lower Physical Therapy: Eval and Treat Occupational Therapy: Eval and Treat Speech Therapy: Eval and Treat Problem/Diagnosis (1) Closed intertrochanteric fracture of right hip: Status: Acute Code(s): S72.141A - Displaced intertrochanteric fracture of right femur, initial encounter for closed fracture (2) Fall: Status: Acute Code(s): W19.XXXA - Unspecified fall, initial encounter Plan Patient is a 75-year-old gentleman who experienced for with resultant right hip pain.Imaging studies obtained on admission did show Fracture of the right greater trochanter, extending into the intertrochanteric line. Admitted to regular nursing floor with consultation placed orthopedic surgeon 1. Fall with right hip fracture .Imaging studies obtained on admission did show Fracture of the right greater trochanter, extendinginto the intertrochanteric line. Admitted to regular nursing floor treatment initiated with with immobilization, pain management consultation placed to orthopedic surgery. Decision regarding surgical intervention deferred to orthopedic surgery. - Patient perioperative Risk assessment as documented by admitting physician 07/05: Right hip ORIF with intramedullary nail fixation, locked on 07/04/[address] Nuno Campbell. Mild tenderness present. Patient on pain medication. 07/06: Still complain of pain over right hip area. 07/24: Patient sitting on the recliner. Pain is better. Waiting for pre-CERT 2. Physical deconditioning/debility secondary to above ? Requested for PT OT eval and manager social services to assist with discharge planning 3. Right sided lung cancer (suprahilar, unclear exact specific type) with associated hypercalcemia of malignancy with recent transition to OR system. Patient to resume care following discharge 4. Hematuria ? Apparently traumatic following Epperson catheter insertion plan is to initiate CBI if hematuria doesnot resolve 5. Anemia ? Secondary to chronic disorder/anemia of malignancy. Patient was typed and crossmatched for 2 unitPRBC, subsequently monitoring H&H and transfuse if patient becomes symptomatic or hemoglobin falls below 7 07/06: Patient baseline hemoglobin is about 8.4. Gradually dropped to 7.5 and then 6.6 today. 1 unitof PRBC ordered. Hold Eliquis. Monitor CBC tomorrow 07/07: H&H improved to 8.0/25.6%. Had 1 unit of PRBC transfusion. 6. Diabetes mellitus type II -patient's oral hypoglycemics held. Placed on long acting insulin, Accu-Cheks a.c. and at bedtime and covered with sliding scale insulin 07/05: Glucoses elevated 180-290. Started on Lantus 10 and subcutaneous daily. 7. Tobacco dependence ? Counseled on cessation, offered nicotine patch for tobacco cravings 8. GERD ? On PPI 9. COPD ? Not in exacerbation aerosol treatments as needed 10. Dyslipidemia ? Patient is on atorvastatin did continue home dose 11. 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 Restless leg syndrome ? Patient is on ropinirole we will continue 13. Severe protein calorie malnutrition ? Evidenced by reduced BMI muscle wasting and decreased oral intake. Consult placed to dietitian Laboratory Results 07/04/25 07:50: Crossmatch See Detail 07/06/25 16:35: POC Glucose 213 H 07/06/25 22:20: POC Glucose 183 H 07/07/25 05:38: WBC 10.5, RBC 3.59 L, Hgb 8.0 L, Hct 25.6 L, MCV 71.3 L, MCH 22.3 L, MCHC 31.3 L, RDW Std Deviation 54.1 H, RDW Coeff of Tiffany 21.1 H, Plt Count 234, MPV 9.7, Immature Gran % (Auto) 0.400, Neut % (Auto) 71.4 H, Lymph % (Auto) 19.0, [place] % (Auto) 7.8, Eos % (Auto) 1.3, Baso % (Auto) 0.1, Absolute Neuts (auto) 7.5, Absolute Lymphs (auto) 1.99, Nucleated RBC % 0, Platelet Estimate ADEQUATE, Polychromasia 1+, Anisocytosis 1+, Sodium 136, Potassium 4.4,Chloride 104, Carbon Dioxide 23.0, Anion Gap 9, BUN 21 H, Creatinine 0.90, EstimCreat Clear Calc 58.14, Est GFR (MDRD) Non-Af 88, BUN/Creatinine Ratio 23.6 H, Glucose 186 H, Calcium 8.7 07/07/25 06:22: POC Glucose 185 H 07/07/25 11:40: POC Glucose 208 H Clinical Impression(s) from Imaging Studies Hip/Pelvis X-Ray 07/03/25 20:20 IMPRESSION: Fracture of the right greater trochanter, extending into the intertrochanteric line. Malignancy cannot be excluded. Reading Location: [facility] Lower Extremity CT 07/03/25 21:54 IMPRESSION: Acute, moderately comminuted and impacted right intertrochanteric femoral fracture. No aggressive osseous lesions. Reading Location: [facility] Hip X-Ray 07/04/25 10:00 IMPRESSION: Postsurgical changes for repair of right femoral fracture with no acute complications. Reading Location: [facility] Allergies/Procedures Done in Hospital Allergies No Known Allergies Allergy (Verified 05/11/25 14:05) Type of Care/Length of Stay Estimated LOS: Convalescent Care Less Than 30 days Type of Care Needed: Skilled Rehab Potential: Good Prognosis: Good Additional Orders/Day of Discharge Day of Discharge: 07/07/25 Dietary and Speech Recommendations Dietitian Recommendations/Changes: Adjust to liberal regular diet due to signs and symptoms of malnutrition. Discontinue 237ml ensure surgery TID with medpass and replace with 120ml EPHP 4xdaily with medpass,pt prefers chocolate flavor. If pt continues to lose weight and has poor PO recommend nutrition support. Will monitor weight trends and provided additional ONS at needed. Discharge Plan Admission Admit Date/Time: 07/03/25 22:54 Primary Reason for Your Visit: Right hip fracture Attending Provider: Anthony Salgado Primary Care Provider: Carlene Haji Consulting Providers: Johanne Evans; Nuno Campbell; Uche Felix Discharge Orders/Prescriptions Prescriptions: New acetaminophen 500 mg Tablet 1,000 mg PO Q8 Qty: 0 0RF Rx Instructions: 1 g every 8 hourly for 1 week and then Q8 hourly as needed for severe pain Eliquis 5 mg Tablet 2.5 mg PO BID 28 Days Qty: 28 0RF Rx Instructions: Start from 07/08/2025. Discontinue if platelet count drops less than 50,000 or hemoglobin less than 8 g% Continued gabapentin 300 MG capsule 300 mg PO TID cyclobenzaprine 10 mg Tablet 10 mg PO TID PRN (Reason: muscle spasms) amlodipine 5 mg Tablet 10 mg PO QHS budesonide-formoterol [Symbicort] 80-4.5 mcg/actuation Hfa Aerosol Inhaler 2 puff INHALATION BID sildenafil 100 mg Tablet 100 mg PO DAILY PRN (Reason: Erectile Dysfunction) atorvastatin 80 mg tablet 80 mg PO QHS Qty: 90 0RF insulin aspart U-100 [Novolog FlexPen U-100 Insulin] 100 unit/mL (3 mL) insulin pen 10 unit subcut TIDCM ropinirole 1 mg tablet 1 mg PO QHS insulin glargine [Lantus Solostar U-100 Insulin] 100 unit/mL (3 mL) insulin pen 10 unit subcut QPM Rx Instructions: PT STATES USES 10-15U QHS magnesium hydroxide [Gentle Laxative (mag hydrox)] 400 mg/5 mL suspension 5 ml PO DAILY PRN (Reason: constipation) sennosides-docusate sodium [Senna with Docusate Sodium] 8.6-50 mg tablet 2 tab-cap PO DAILY melatonin 3 mg tablet 3 mg PO QHS polyethylene glycol 3350 17 gram powder in packet 17 g PO DAILY ferrous sulfate [Feosol] 325 mg (65 mg iron) tablet 325 mg PO .every other day lidocaine 5 % adhesive patch,medicated 2 patch topical DAILY PRN (Reason: pain) Rx Instructions: leave on most painful area for up to 12 hrs cyclopentolate 2 % drops 1 drp LEFT EYE QHS calcium carbonate 500 mg calcium (1,250 mg) tablet 1,500 mg PO DAILY polyvinyl alcohol-povidone 1.4-0.6 % drops 1 drp ophthalmic (eye) 4X/DAY Rx Instructions: 1 drop each eye; pantoprazole [Protonix] 40 mg tablet,delayed release (DR/EC) 40 mg PO DAILY prednisolone acetate 1 % drops,suspension 1 drp LEFT EYE Q6H tiotropium-olodaterol 2.5-2.5 mcg/actuation mist 2 puff inhalation DAILY nicotine [Nicoderm CQ] 14 mg/24 hr patch 24 hour 1 patch transdermal DAILY Rx Instructions: apply every morning and remove at HS albuterol 90 mcg/actuation aerosol 90 mcg inhalation Q4H PRN Changed oxycodone 5 mg tablet 2.5 mg PO Q6H PRN (Reason: pain) 3 Days Qty: 7 0RF Held aspirin 81 mg Tablet,Delayed Release (Dr/Ec) 81 mg PO DAILY Hold Instructions: Hold while taking Eliquis. Discontinued acetaminophen 325 mg tablet 650 mg PO Q4H PRN (Reason: pain) Referrals / Follow Up: Nuno Campbell MD [Med Staff - Active Staff] - Within 2 Weeks Carlene Haji NP-C [Primary Care Provider] - Within 2 Weeks Disposition Disposition (needs filled in before D/C Order can be placed): Custodial Facility (1) Closed intertrochanteric fracture of right hip Qualifiers: Encounter type: initial encounter Fracture alignment: displaced Qualified Code(s): S72.141A - Displaced intertrochanteric fracture of right femur, initialencounter for closed fracture 07/07/25 1516 Cosigner Signature (if applicable): CC: SID Haji; Dr. Johanne Evans MD; Dr. Uche Felix MD; Dr. Nuno Campbell MD ~ [facility]08-13-2025 Progress note [facility] Medical Records Department [address] [place] [address] Progress Note - Hospitalist 07/07/25 1401 MR#: [id number] Acct: [id number] Name: ITZEL ALONZO Rep #:[id number] : 1950 75 From: Anthony Kiser PCP: SID Haro Status:ADM IN [facility] Reason for Visit Chief Complaint: Fall, R hip pain. Objective Data Objective Data Vital Signs: Vital Signs Temp Pulse Resp BP Pulse Ox O2 Del Method O2 Flow Rate 98.9 F 101 H 18 146/94 H 91 Nasal Cannula 2 07/06/25 22:04 07/07/25 07:10 07/07/25 07:10 07/06/25 22:04 07/07/25 07:46 07/07/25 07:46 07/07/25 09:32 FiO2 2 07/05/25 21:24 Oxygen Flow Rate (L/min) 2 Oxygen Delivery Method Nasal Cannula Weight: 131 lb 13.383 oz Body Mass Index (BMI) 17.4 Intake & Output: Intake and Output for Last 24 Hours 07/05/25 07/06/25 07/07/25 23:59 23:59 23:59 Intake Total 1146.25 / 1346.25 440 / 440 150 / 150 Output Total 450 / 450 275 / 550 475 / 475 Balance 696.25 / 896.25 165 / -110 -325 / -325 Medical Nutrition Assessment Dietitian: Malnutrition Criteria Met Start: 07/05/25 10:37 Freq: Status: Active Protocol: Document 07/05/25 10:37 SB (Rec: 07/05/25 10:37 SB [id number]) Nutrition Malnutrition Evidence of Yes Malnutrition Exists Malnutrition (severe Chronic ): Evidenced By Suboptimal Energy Intake (Severe),Weight Loss (Severe), Physical Changes (Severe) Clinical Problem Chronic Disease or Condition Related Malnutrition Etiology severe related to inadequate energy intake and increased energy expenditure due to lung cancer Signs/Symptoms as evidenced by PO meeting <75% of estimated nutrition needs x 2-3 days, 23% unintentional weight loss x 7 months, and severe muscle/fat wasting in clavicle, temples, and orbital regions. Status Active Problem Unintended Weight Loss Etiology likely related to right sided lung cancer Signs/Symptoms as evidenced by 23% weight loss x 7 months Status Active Problem Recommendation Dietitian Adjust to liberal regular diet due to signs and Recommendations/ symptoms of malnutrition. Changes Discontinue 237ml ensure surgery TID with medpass and replace with 120ml EPHP 4x daily with medpass, pt prefers chocolate flavor. If pt continues to lose weight and has poor PO recommend nutrition support. Will monitor weight trends and provided additional ONS at needed. Lab / Micro Data 07/07/25 05:38 07/07/25 05:38 Labs: Laboratory Results - last 24 hr 07/04/25 07:50: Crossmatch See Detail 07/06/25 16:35: POC Glucose 213 H 07/06/25 22:20: POC Glucose 183 H 07/07/25 05:38: WBC 10.5, RBC 3.59 L, Hgb 8.0 L, Hct 25.6 L, MCV 71.3 L, MCH 22.3 L, MCHC 31.3 L, RDW Std Deviation 54.1 H, RDW Coeff of Tiffany 21.1 H, Plt Count 234, MPV 9.7, Immature Gran % (Auto) 0.400, Neut % (Auto) 71.4 H, Lymph % (Auto) 19.0, [place] % (Auto) 7.8, Eos % (Auto) 1.3, Baso % (Auto) 0.1, Absolute Neuts (auto) 7.5, Absolute Lymphs (auto) 1.99, Nucleated RBC % 0, Platelet Estimate ADEQUATE, Polychromasia 1+, Anisocytosis 1+, Sodium 136, Potassium 4.4,Chloride 104, Carbon Dioxide 23.0, Anion Gap 9, BUN 21 H, Creatinine 0.90, EstimCreat Clear Calc 58.14, Est GFR (MDRD) Non-Af 88, BUN/Creatinine Ratio 23.6 H, Glucose 186 H, Calcium 8.7 07/07/25 06:22: POC Glucose 185 H 07/07/25 11:40: POC Glucose 208 H Physical Exam Narrative Seen and examined. I talked to the patient's daughter, Kimberley in the patient's room. Complained ofpain about her righthip area. Patient had right hip surgery done for right hip displaced intertrochanteric fracture Physical exam General: Alert, Oriented x3, Cooperative HEENT: Atraumatic, PERRLA, EOMI, Normocephalic. Oral: No Gingival or Mucosal Lesions/ Ulcerations Neck: Supple, No JVD, Negative Carotid Bruits Chest wall/Lungs: Air entry diminished in bilateral lung bases. No crepitation/rhonchi Cardiovascular: Regular rate and rhythm, Normal S1,S2, No M/G/R Abdomen: Bowel Sounds Present, Soft, Non Tender, Non-Distended : No dysuria. No renal angle tenderness. No suprapubic tenderness. Extremities: No edema, Capillary Refill Less than 3 Seconds Skin: Right hip surgical dressing is dry. Musculoskeletal: Tenderness around right hip area. No hematoma Neurological: Cranial nerves II-XII grossly intact, DTR 2+/4. No acute focal neurological deficit. Psych/Mental Status: Dementia, irritable Assessment & Plan Assessment/Plan (1) Closed intertrochanteric fracture of right hip: QUALIFIERS: Encounter type: initial encounter Fracture alignment:displaced Qualified Code(s): S72.141A - Displaced intertrochanteric fracture ofright femur, initial encounter for closed fracture (2) Fall: PLAN: Plan Patient is a 75-year-old gentleman who experienced for with resultant right hip pain.Imaging studies obtained on admission did show Fracture of the right greater trochanter, extending into the intertrochanteric line. Admitted to regular nursing floor with consultation placed orthopedic surgeon 1. Fall with right hip fracture .Imaging studies obtained on admission did show Fracture of the right greater trochanter, extendinginto the intertrochanteric line. Admitted to regular nursing floor treatment initiated with with immobilization, pain management consultation placed to orthopedic surgery. Decision regarding surgical intervention deferred to orthopedic surgery. - Patient perioperative Risk assessment as documented by admitting physician 07/05: Right hip ORIF with intramedullary nail fixation, locked on 07/04/[address] Nuno Campbell. Mild tenderness present. Patient on pain medication. 07/06: Still complain of pain over right hip area. 07/24: Patient sitting on the recliner. Pain is better. Waiting for pre-CERT 2. Physical deconditioning/debility secondary to above ? Requested for PT OT eval and manager social services to assist with discharge planning 3. Right sided lung cancer (suprahilar, unclear exact specific type) with associated hypercalcemia of malignancy with recent transition to [place] system. Patient to resume care following discharge 4. Hematuria ? Apparently traumatic following Epperson catheter insertion plan is to initiate CBI if hematuria doesnot resolve 5. Anemia ? Secondary to chronic disorder/anemia of malignancy. Patient was typed and crossmatched for 2 unitPRBC, subsequently monitoring H&H and transfuse if patient becomes symptomatic or hemoglobin falls below 7 07/06: Patient baseline hemoglobin is about 8.4. Gradually dropped to 7.5 and then 6.6 today. 1 unitof PRBC ordered. Hold Eliquis. Monitor CBC tomorrow 07/07: H&H improved to 8.0/25.6%. Had 1 unit of PRBC transfusion. 6. Diabetes mellitus type II -patient's oral hypoglycemics held. Placed on long acting insulin, Accu-Cheks a.c. and at bedtime and covered with sliding scale insulin 07/05: Glucoses elevated 180-290. Started on Lantus 10 and subcutaneous daily. 7. Tobacco dependence ? Counseled on cessation, offered nicotine patch for tobacco cravings 8. GERD ? On PPI 9. COPD ? Not in exacerbation aerosol treatments as needed 10. Dyslipidemia ? Patient is on atorvastatin did continue home dose 11. 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 Restless leg syndrome ? Patient is on ropinirole we will continue 13. Severe protein calorie malnutrition ? Evidenced by reduced BMI muscle wasting and decreased oral intake. Consult placed to dietitian Laboratory Results 07/04/25 07:50: Crossmatch See Detail 07/06/25 16:35: POC Glucose 213 H 07/06/25 22:20: POC Glucose 183 H 07/07/25 05:38: WBC 10.5, RBC 3.59 L, Hgb 8.0 L, Hct 25.6 L, MCV 71.3 L, MCH 22.3 L, MCHC 31.3 L, RDW Std Deviation 54.1 H, RDW Coeff of Tiffany 21.1 H, Plt Count 234, MPV 9.7, Immature Gran % (Auto) 0.400, Neut % (Auto) 71.4 H, Lymph % (Auto) 19.0, [place] % (Auto) 7.8, Eos % (Auto) 1.3, Baso % (Auto) 0.1, Absolute Neuts (auto) 7.5, Absolute Lymphs (auto) 1.99, Nucleated RBC % 0, Platelet Estimate ADEQUATE, Polychromasia 1+, Anisocytosis 1+, Sodium 136, Potassium 4.4,Chloride 104, Carbon Dioxide 23.0, Anion Gap 9, BUN 21 H, Creatinine 0.90, EstimCreat Clear Calc 58.14, Est GFR (MDRD) Non-Af 88, BUN/Creatinine Ratio 23.6 H, Glucose 186 H, Calcium 8.7 07/07/25 06:22: POC Glucose 185 H 07/07/25 11:40: POC Glucose 208 H Clinical Impression(s) from Imaging Studies Hip/Pelvis X-Ray 07/03/25 20:20 IMPRESSION: Fracture of the right greater trochanter, extending into the intertrochanteric line. Malignancy cannot be excluded. Reading Location: [facility] Lower Extremity CT 07/03/25 21:54 IMPRESSION: Acute, moderately comminuted and impacted right intertrochanteric femoral fracture. No aggressive osseous lesions. Reading Location: [facility] Hip X-Ray 07/04/25 10:00 IMPRESSION: Postsurgical changes for repair of right femoral fracture with no acute complications. Reading Location: [id number] Charges/Coding Visit Charges Inpatient E&M: 38273 Subs Hosp L2 07/07/25 1403 Cosigner Signature (if applicable): CC: ~ Signed [facility]08-13-2025 Hospital Discharge instructionsAdditional Instructions [facility]: [facility] Phone: 1(276) 828-591508-12-2025 Progress note Author Anthony Salgado [facility] Note Date/Time July 06, 2025 4: 23pm [facility] Medical Records Department [address] [place] [address] Progress Note - Hospitalist 07/06/25 1007 MR#: [id number] Acct: [id number] Name: ITZEL ALONZO Rep #:[id number] : 1950 75 From: Anthony Kiser PCP: Carlene Haji [employer] Status:ADM IN Location: [address] Reason for Visit Chief Complaint: Fall, R hip pain. Objective Data Objective Data Vital Signs: Vital Signs Temp Pulse Resp BP Pulse Ox O2 Del Method O2 Flow Rate 98.1 F 107 H 16 133/80 H 100 Nasal Cannula 2 07/06/25 09:00 07/06/25 09:00 07/06/25 09:00 07/06/25 09:00 07/06/25 09:00 07/06/25 09:00 07/06/25 09:00 FiO2 2 07/05/25 21:24 Oxygen Flow Rate (L/min) 2 Oxygen Delivery Method Nasal Cannula Weight: 130 lb 8.218 oz Body Mass Index (BMI) 17.3 Intake & Output: Intake and Output for Last 24 Hours 07/04/25 07/05/25 07/06/25 23:59 23:59 23:59 Intake Total 2158.75 / 2158.75 1146.25 / 1346.25 200 / 200 Output Total 2150 / 2400 450 / 450 Balance 8.75 / -241.25 696.25 / 896.25 200 / 200 Medical Nutrition Assessment Dietitian: Malnutrition Criteria Met Start: 07/05/25 10:37 Freq: Status: Active Protocol: Document 07/05/25 10:37 SB (Rec: 07/05/25 10:37 SB [id number]) Nutrition Malnutrition Evidence of Yes Malnutrition Exists Malnutrition (severe Chronic ): Evidenced By Suboptimal Energy Intake (Severe),Weight Loss (Severe), Physical Changes (Severe) Clinical Problem Chronic Disease or Condition Related Malnutrition Etiology severe related to inadequate energy intake and increased energy expenditure due to lung cancer Signs/Symptoms as evidenced by PO meeting <75% of estimated nutrition needs x 2-3 days, 23% unintentional weight loss x 7 months, and severe muscle/fat wasting in clavicle, temples, and orbital regions. Status Active Problem Unintended Weight Loss Etiology likely related to right sided lung cancer Signs/Symptoms as evidenced by 23% weight loss x 7 months Status Active Problem Recommendation Dietitian Adjust to liberal regular diet due to signs and Recommendations/ symptoms of malnutrition. Changes Discontinue 237ml ensure surgery TID with medpass and replace with 120ml EPHP 4x daily with medpass, pt prefers chocolate flavor. If pt continues to lose weight and has poor PO recommend nutrition support. Will monitor weight trends and provided additional ONS at needed. Lab / Micro Data 07/06/25 04:57 07/06/25 04:57 Labs: Laboratory Results - last 24 hr 07/05/25 10:59: POC Glucose 290 H 07/05/25 15:58: POC Glucose 232 H 07/05/25 21:43: POC Glucose 214 H 07/06/25 04:57: WBC 9.2, RBC 3.09 L, Hgb 6.6 L, Hct 21.9 L, MCV 70.9 L, MCH 21.4L, MCHC 30.1 L, RDW Std Deviation 56.7 H, RDW Coeff of Tiffany 22.4 H, Plt Count 239, MPV 9.9, Immature Gran % (Auto) 0.500, Neut % (Auto) 72.3 H, Lymph % (Auto)18.5 L, [place] % (Auto) 6.9, Eos % (Auto) 1.6, Baso % (Auto) 0.2, Absolute Neuts (auto) 6.7, Absolute Lymphs (auto) 1.70, Nucleated RBC % 0, Differential Comment, Polychromasia 1+, Basophilic Stippling RARE, Anisocytosis 1+, Ovalocytes RARE,Sodium 134, Potassium 3.7, Chloride 103, Carbon Dioxide 20.0 L, Anion Gap 11, BUN 22 H, Creatinine 1.03, Estim Creat Clear Calc 50.29, Est GFR (MDRD) Non-Af 75, BUN/Creatinine Ratio 21.0 H, Glucose 141 H, Calcium 8.6 07/06/25 06:21: POC Glucose 142 H Physical Exam Narrative Seen and examined. Patient had right hip surgery done for right hip displaced intertrochanteric fracture Complain of pain 8/10 around the operative region. Patient has dementia and irritable Physical exam General: Alert, Oriented x3, Cooperative HEENT: Atraumatic, PERRLA, EOMI, Normocephalic. Oral: No Gingival or Mucosal Lesions/ Ulcerations Neck: Supple, No JVD, Negative Carotid Bruits Chest wall/Lungs: Air entry diminished in bilateral lung bases. No crepitation/rhonchi Cardiovascular: Regular rate and rhythm, Normal S1,S2, No M/G/R Abdomen: Bowel Sounds Present, Soft, Non Tender, Non-Distended : No dysuria. No renal angle tenderness. No suprapubic tenderness. Extremities: No edema, Capillary Refill Less than 3 Seconds Skin: Right hip surgical dressing is dry. Musculoskeletal: Tenderness around right hip area. No hematoma Neurological: Cranial nerves II-XII grossly intact, DTR 2+/4. No acute focal neurological deficit. Psych/Mental Status: Dementia, irritable Assessment & Plan Assessment/Plan (1) Closed intertrochanteric fracture of right hip: QUALIFIERS: Encounter type: initial encounter Fracture alignment:displaced Qualified Code(s): S72.141A - Displaced intertrochanteric fracture ofright femur, initial encounter for closed fracture (2) Fall: PLAN: Plan Patient is a 75-year-old gentleman who experienced for with resultant right hip pain.Imaging studies obtained on admission did show Fracture of the right greater trochanter, extending into the intertrochanteric line. Admitted to regular nursing floor with consultation placed orthopedic surgeon 1. Fall with right hip fracture .Imaging studies obtained on admission did show Fracture of the right greater trochanter, extending into the intertrochanteric line. Admitted to regular nursing floor treatment initiated with with immobilization, pain management consultation placed to orthopedic surgery. Decision regarding surgical intervention deferred to orthopedic surgery. - Patient perioperative Risk assessment as documented by admitting physician 07/05: Right hip ORIF with intramedullary nail fixation, locked on 07/04/[address] Nuno Campbell. Mild tenderness present. Patient on pain medication. 07/06: Still complain of pain over right hip area. 2. Physical deconditioning/debility secondary to above ? Requested for PT OT eval and manager social services to assist with discharge planning 3. Right sided lung cancer (suprahilar, unclear exact specific type) with associated hypercalcemia of malignancy [facility] Patient to [facility] care following discharge 4. Hematuria ? Apparently traumatic following Epperson catheter insertion plan is to initiate CBI if hematuria does not resolve 5. Anemia ? Secondary to chronic disorder/anemia of malignancy. Patient was typed and crossmatched for 2 unit PRBC, subsequently monitoring H&H and transfuse if patient becomes symptomatic or hemoglobin falls below 7 07/06: Patient baseline hemoglobin is about 8.4. Gradually dropped to 7.5 and then 6.6 today. 1 unit of PRBC ordered. Hold Eliquis. Monitor CBC tomorrow 6. Diabetes mellitus type II -patient's oral hypoglycemics held. Placed on long acting insulin, Accu-Cheks a.c. and at bedtime and covered with sliding scale insulin 07/05: Glucoses elevated 180-290. Started on Lantus 10 and subcutaneous daily. 7. Tobacco dependence ? Counseled on cessation, offered nicotine patch for tobacco cravings 8. GERD ? On PPI 9. COPD ? Not in exacerbation aerosol treatments as needed 10. Dyslipidemia ? Patient is on atorvastatin did continue home dose 11. 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 Restless leg syndrome ? Patient is on ropinirole we will continue 13. Severe protein calorie malnutrition ? Evidenced by reduced BMI muscle wasting and decreased oral intake. Consult placed to dietitian Laboratory Results 07/04/25 07:50: Crossmatch See Detail 07/05/25 21:43: POC Glucose 214 H 07/06/25 04:57: WBC 9.2, RBC 3.09 L, Hgb 6.6 L, Hct 21.9 L, MCV 70.9 L, MCH 21.4L, MCHC 30.1 L, RDW Std Deviation 56.7 H, RDW Coeff of Tiffany 22.4 H, Plt Count 239, MPV 9.9, Immature Gran % (Auto) 0.500, Neut % (Auto) 72.3 H, Lymph % (Auto)18.5 L, [place] % (Auto) 6.9, Eos % (Auto) 1.6, Baso % (Auto) 0.2, Absolute Neuts (auto) 6.7, Absolute Lymphs (auto) 1.70, Nucleated RBC % 0, Differential Comment, Polychromasia 1+, Basophilic Stippling RARE, Anisocytosis 1+, Ovalocytes RARE,Sodium 134, Potassium 3.7, Chloride 103, Carbon Dioxide 20.0 L, Anion Gap 11, BUN 22 H, Creatinine 1.03, Estim Creat Clear Calc 50.29, Est GFR (MDRD) Non-Af 75, BUN/Creatinine Ratio 21.0 H, Glucose 141 H, Calcium 8.6 07/06/25 06:21: POC Glucose 142 H 07/06/25 11:37: POC Glucose 189 H Clinical Impression(s) from Imaging Studies Hip/Pelvis X-Ray 07/03/25 20:20 IMPRESSION: Fracture of the right greater trochanter, extending into the intertrochanteric line. Malignancy can not be excluded. Reading Location: [facility] Lower Extremity CT 07/03/25 21:54 IMPRESSION: Acute, moderately comminuted and impacted right intertrochanteric femoral fracture. No aggressive osseous lesions. Reading Location: [facility] Hip X-Ray 07/04/25 10:00 IMPRESSION: Postsurgical changes for repair of right femoral fracture with no acute complications. Reading Location: [facility] Charges/Coding Visit Charges Inpatient E&M: 61971 Subs Hosp L2 07/06/25 1623 <Electronically signed by Anthony Salgado MD> Cosigner Signature (if applicable): CC: ~ Signed [facility] Work Phone: 1(159) 672-699508-12-2025 Progress note [facility] Medical Records Department [address] [place] [address] Progress Note - Hospitalist 07/06/25 1007 MR#: [id number] Acct: [id number] Name: ITZEL ALONZO Rep #:[id number] : 1950 75 From: Anthony Kiser PCP: LUIS MIGUEL Haro[facility] Status:ADM IN Location: [place] [address] Reason for Visit Chief Complaint: Fall, R hip pain. Objective Data Objective Data Vital Signs: Vital Signs Temp Pulse Resp BP Pulse Ox O2 Del Method O2 Flow Rate 98.1 F 107 H 16 133/80 H 100 Nasal Cannula 2 07/06/25 09:00 07/06/25 09:00 07/06/25 09:00 07/06/25 09:00 07/06/25 09:00 07/06/25 09:00 07/06/25 09:00 FiO2 2 07/05/25 21:24 Oxygen Flow Rate (L/min) 2 Oxygen Delivery Method Nasal Cannula Weight: 130 lb 8.218 oz Body Mass Index (BMI) 17.3 Intake & Output: Intake and Output for Last 24 Hours 07/04/25 07/05/25 07/06/25 23:59 23:59 23:59 Intake Total 2158.75 / 2158.75 1146.25 / 1346.25 200 / 200 Output Total 2150 / 2400 450 / 450 Balance 8.75 / -241.25 696.25 / 896.25 200 / 200 Medical Nutrition Assessment Dietitian: Malnutrition Criteria Met Start: 07/05/25 10:37 Freq: Status: Active Protocol: Document 07/05/25 10:37 SB (Rec: 07/05/25 10:37 SB [id number]) Nutrition Malnutrition Evidence of Yes Malnutrition Exists Malnutrition (severe Chronic ): Evidenced By Suboptimal Energy Intake (Severe),Weight Loss (Severe), Physical Changes (Severe) Clinical Problem Chronic Disease or Condition Related Malnutrition Etiology severe related to inadequate energy intake and increased energy expenditure due to lung cancer Signs/Symptoms as evidenced by PO meeting <75% of estimated nutrition needs x 2-3 days, 23% unintentional weight loss x 7 months, and severe muscle/fat wasting in clavicle, temples, and orbital regions. Status Active Problem Unintended Weight Loss Etiology likely related to right sided lung cancer Signs/Symptoms as evidenced by 23% weight loss x 7 months Status Active Problem Recommendation Dietitian Adjust to liberal regular diet due to signs and Recommendations/ symptoms of malnutrition. Changes Discontinue 237ml ensure surgery TID with medpass and replace with 120ml EPHP 4x daily with medpass, pt prefers chocolate flavor. If pt continues to lose weight and has poor PO recommend nutrition support. Will monitor weight trends and provided additional ONS at needed. Lab / Micro Data 07/06/25 04:57 07/06/25 04:57 Labs: Laboratory Results - last 24 hr 07/05/25 10:59: POC Glucose 290 H 07/05/25 15:58: POC Glucose 232 H 07/05/25 21:43: POC Glucose 214 H 07/06/25 04:57: WBC 9.2, RBC 3.09 L, Hgb 6.6 L, Hct 21.9 L, MCV 70.9 L, MCH 21.4L, MCHC 30.1 L, RDWStd Deviation 56.7 H, RDW Coeff of Tiffany 22.4 H, Plt Count 239, MPV 9.9, Immature Gran % (Auto) 0.500, Neut % (Auto) 72.3 H, Lymph % (Auto)18.5 L, [place] % (Auto) 6.9, Eos % (Auto) 1.6, Baso % (Auto) 0.2, Absolute Neuts (auto) 6.7, Absolute Lymphs (auto) 1.70, Nucleated RBC % 0, Differential Comment, Polychromasia 1+, Basophilic Stippling RARE, Anisocytosis 1+, Ovalocytes RARE,Sodium 134, Potassium 3.7, Chloride 103, Carbon Dioxide 20.0 L, Anion Gap 11, BUN 22 H, Creatinine 1.03, Estim Creat Clear Calc 50.29, Est GFR (MDRD) Non-Af 75, BUN/Creatinine Ratio 21.0 H, Glucose 141 H, Calcium 8.6 07/06/25 06:21: POC Glucose 142 H Physical Exam Narrative Seen and examined. Patient had right hip surgery done for right hip displaced intertrochanteric fracture Complain of pain 8/10 around the operative region. Patient has dementia and irritable Physical exam General: Alert, Oriented x3, Cooperative HEENT: Atraumatic, PERRLA, EOMI, Normocephalic. Oral: No Gingival or Mucosal Lesions/ Ulcerations Neck: Supple, No JVD, Negative Carotid Bruits Chest wall/Lungs: Air entry diminished in bilateral lung bases. No crepitation/rhonchi Cardiovascular: Regular rate and rhythm, Normal S1,S2, No M/G/R Abdomen: Bowel Sounds Present, Soft, Non Tender, Non-Distended : No dysuria. No renal angle tenderness. No suprapubic tenderness. Extremities: No edema, Capillary Refill Less than 3 Seconds Skin: Right hip surgical dressing is dry. Musculoskeletal: Tenderness around right hip area. No hematoma Neurological: Cranial nerves II-XII grossly intact, DTR 2+/4. No acute focal neurological deficit. Psych/Mental Status: Dementia, irritable Assessment & Plan Assessment/Plan (1) Closed intertrochanteric fracture of right hip: QUALIFIERS: Encounter type: initial encounter Fracture alignment:displaced Qualified Code(s): S72.141A - Displaced intertrochanteric fracture ofright femur, initial encounter for closed fracture (2) Fall: PLAN: Plan Patient is a 75-year-old gentleman who experienced for with resultant right hip pain.Imaging studies obtained on admission did show Fracture of the right greater trochanter, extending into the intertrochanteric line. Admitted to regular nursing floor with consultation placed orthopedic surgeon 1. Fall with right hip fracture .Imaging studies obtained on admission did show Fracture of the right greater trochanter, extendinginto the intertrochanteric line. Admitted to regular nursing floor treatment initiated with with immobilization, pain management consultation placed to orthopedic surgery. Decision regarding surgical intervention deferred to orthopedic surgery. - Patient perioperative Risk assessment as documented by admitting physician 07/05: Right hip ORIF with intramedullary nail fixation, locked on 07/04/[address] Nuno Campbell. Mild tenderness present. Patient on pain medication. 07/06: Still complain of pain over right hip area. 2. Physical deconditioning/debility secondary to above ? Requested for PT OT eval and manager social services to assist with discharge planning 3. Right sided lung cancer (suprahilar, unclear exact specific type) with associated hypercalcemia of malignancy [facility] Patient to resume care following discharge 4. Hematuria ? Apparently traumatic following Epperson catheter insertion plan is to initiate CBI if hematuria doesnot resolve 5. Anemia ? Secondary to chronic disorder/anemia of malignancy. Patient was typed and crossmatched for 2 unitPRBC, subsequently monitoring H&H and transfuse if patient becomes symptomatic or hemoglobin falls below 7 07/06: Patient baseline hemoglobin is about 8.4. Gradually dropped to 7.5 and then 6.6 today. 1 unitof PRBC ordered. Hold Eliquis. Monitor CBC tomorrow 6. Diabetes mellitus type II -patient's oral hypoglycemics held. Placed on long acting insulin, Accu-Cheks a.c. and at bedtime and covered with sliding scale insulin 07/05: Glucoses elevated 180-290. Started on Lantus 10 and subcutaneous daily. 7. Tobacco dependence ? Counseled on cessation, offered nicotine patch for tobacco cravings 8. GERD ? On PPI 9. COPD ? Not in exacerbation aerosol treatments as needed 10. Dyslipidemia ? Patient is on atorvastatin did continue home dose 11. 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 Restless leg syndrome ? Patient is on ropinirole we will continue 13. Severe protein calorie malnutrition ? Evidenced by reduced BMI muscle wasting and decreased oral intake. Consult placed to dietitian Laboratory Results 07/04/25 07:50: Crossmatch See Detail 07/05/25 21:43: POC Glucose 214 H 07/06/25 04:57: WBC 9.2, RBC 3.09 L, Hgb 6.6 L, Hct 21.9 L, MCV 70.9 L, MCH 21.4L, MCHC 30.1 L, RDWStd Deviation 56.7 H, RDW Coeff of Tiffany 22.4 H, Plt Count 239, MPV 9.9, Immature Gran % (Auto) 0.500, Neut % (Auto) 72.3 H, Lymph % (Auto)18.5 L, [place] % (Auto) 6.9, Eos % (Auto) 1.6, Baso % (Auto) 0.2, Absolute Neuts (auto) 6.7, Absolute Lymphs (auto) 1.70, Nucleated RBC % 0, Differential Comment, Polychromasia 1+, Basophilic Stippling RARE, Anisocytosis 1+, Ovalocytes RARE,Sodium 134, Potassium 3.7, Chloride 103, Carbon Dioxide 20.0 L, Anion Gap 11, BUN 22 H, Creatinine 1.03, Estim Creat Clear Calc 50.29, Est GFR (MDRD) Non-Af 75, BUN/Creatinine Ratio 21.0 H, Glucose 141 H, Calcium 8.6 07/06/25 06:21: POC Glucose 142 H 07/06/25 11:37: POC Glucose 189 H Clinical Impression(s) from Imaging Studies Hip/Pelvis X-Ray 07/03/25 20:20 IMPRESSION: Fracture of the right greater trochanter, extending into the intertrochanteric line. Malignancy cannot be excluded. Reading Location: [facility] Lower Extremity CT 07/03/25 21:54 IMPRESSION: Acute, moderately comminuted and impacted right intertrochanteric femoral fracture. No aggressive osseous lesions. Reading Location: [facility] Hip X-Ray 07/04/25 10:00 IMPRESSION: Postsurgical changes for repair of right femoral fracture with no acute complications. Reading Location: [facility] Charges/Coding Visit Charges Inpatient E&M: 01244 Subs Hosp L2 07/06/25 1623 Cosigner Signature (if applicable): CC: ~ Signed [facility]08-11-2025 Progress note Author Anthony Salgado [facility] Note Date/Time July 05, 2025 4: 45pm [facility] Medical Records Department [address] [place] [id number] Progress Note - Hospitalist 07/05/25 1634 MR#: [id number] Acct: [id number] Name: ITZEL ALONZO Rep #:[id number] : 1950 75 From: Anthony Kiser PCP: Carlene Haji POWER BARKER OPERATOR-C Status:ADM IN Location: [place] [address] Reason for Visit Chief Complaint: Fall, R hip pain. Objective Data Objective Data Vital Signs: Vital Signs Temp Pulse Resp BP Pulse Ox O2 Del Method O2 Flow Rate 98.2 F 106 H 16 139/85 H 95 Room Air 2 07/05/25 15:24 07/05/25 15:24 07/05/25 15:24 07/05/25 15:24 07/05/25 15:24 07/05/25 15:24 07/05/25 13:52 Oxygen Flow Rate (L/min) 2 Oxygen Delivery Method Room Air Weight: 132 lb 7.965 oz Body Mass Index (BMI) 17.5 Intake & Output: Intake and Output for Last 24 Hours 07/03/25 07/04/25 07/05/25 23:59 23:59 23:59 Intake Total 2158.75 / 2158.75 846.25 / 846.25 Output Total 2150 / 2400 450 / 450 Balance 8.75 / -241.25 396.25 / 396.25 Medical Nutrition Assessment Dietitian: Malnutrition Criteria Met Start: 07/05/25 10:37 Freq: Status: Active Protocol: Document 07/05/25 10:37 SB (Rec: 07/05/25 10:37 SB [id number]) Nutrition Malnutrition Evidence of Yes Malnutrition Exists Malnutrition (severe Chronic ): Evidenced By Suboptimal Energy Intake (Severe),Weight Loss (Severe), Physical Changes (Severe) Clinical Problem Chronic Disease or Condition Related Malnutrition Etiology severe related to inadequate energy intake and increased energy expenditure due to lung cancer Signs/Symptoms as evidenced by PO meeting <75% of estimated nutrition needs x 2-3 days, 23% unintentional weight loss x 7 months, and severe muscle/fat wasting in clavicle, temples, and orbital regions. Status Active Problem Unintended Weight Loss Etiology likely related to right sided lung cancer Signs/Symptoms as evidenced by 23% weight loss x 7 months Status Active Problem Recommendation Dietitian Adjust to liberal regular diet due to signs and Recommendations/ symptoms of malnutrition. Changes Discontinue 237ml ensure surgery TID with medpass and replace with 120ml EPHP 4x daily with medpass, pt prefers chocolate flavor. If pt continues to lose weight and has poor PO recommend nutrition support. Will monitor weight trends and provided additional ONS at needed. Lab / Micro Data 07/05/25 05:53 07/05/25 05:53 Labs: Laboratory Results - last 24 hr 07/04/25 17:36: POC Glucose 215 H 07/04/25 22:01: POC Glucose 208 H 07/05/25 05:53: WBC 11.6 H, RBC 3.52 L, Hgb 7.5 L, Hct 25.1 L, MCV 71.3 L, MCH 21.3 L, MCHC 29.9 L, RDW Std Deviation 58.4 H, RDW Coeff of Tiffany 22.9 H, Plt Count 261, MPV 9.5, Immature Gran % (Auto) 0.700, Neut % (Auto) 79.1 H, Lymph % (Auto) 13.4 L, [place] % (Auto) 5.5, Eos % (Auto) 1.1, Baso % (Auto) 0.2, Absolute Neuts (auto) 9.2 H, Absolute Lymphs (auto) 1.55, Nucleated RBC % 0, Anisocytosis1+, Sodium 135, Potassium 3.8, Chloride 102, Carbon Dioxide 21.6, Anion Gap 12, BUN 19, Creatinine 1.14, Estim Creat Clear Calc 46.13 L, Est GFR (MDRD) Non-Af 66, BUN/Creatinine Ratio 16.8, Glucose 178 H, Calcium 9.1, Phosphorus 3.0, Magnesium 2.0 07/05/25 06:36: POC Glucose 182 H 07/05/25 10:59: POC Glucose 290 H 07/05/25 15:58: POC Glucose 232 H Physical Exam Narrative Seen and examined. Patient had right hip surgery done for right hip displaced intertrochanteric fracture Complain of pain 8/10 around the operative region Physical exam General: Alert, Oriented x3, Cooperative HEENT: Atraumatic, PERRLA, EOMI, Normocephalic. Oral: No Gingival or Mucosal Lesions/ Ulcerations Neck: Supple, No JVD, Negative Carotid Bruits Chest wall/Lungs: Air entry diminished in bilateral lung bases. No crepitation/rhonchi Cardiovascular: Regular rate and rhythm, Normal S1,S2, No M/G/R Abdomen: Bowel Sounds Present, Soft, Non Tender, Non-Distended : No dysuria. No renal angle tenderness. No suprapubic tenderness. Extremities: No edema, Capillary Refill Less than 3 Seconds Skin: Right hip surgical dressing is dry. Musculoskeletal: Tenderness around right hip area. No hematoma Neurological: Cranial nerves II-XII grossly intact, DTR 2+/4. No acute focal neurological deficit. Psych/Mental Status: Normal Affect, Appropriate. Assessment & Plan Assessment/Plan (1) Closed intertrochanteric fracture of right hip: QUALIFIERS: Encounter type: initial encounter Fracture alignment:displaced Qualified Code(s): S72.141A - Displaced intertrochanteric fracture ofright femur, initial encounter for closed fracture (2) Fall: PLAN: Plan Patient is a 75-year-old gentleman who experienced for with resultant right hip pain.Imaging studies obtained on admission did show Fracture of the right greater trochanter, extending into the intertrochanteric line. Admitted to regular nursing floor with consultation placed orthopedic surgeon 1. Fall with right hip fracture .Imaging studies obtained on admission did show Fracture of the right greater trochanter, extending into the intertrochanteric line. Admitted to regular nursing floor treatment initiated with with immobilization, pain management consultation placed to orthopedic surgery. Decision regarding surgical intervention deferred to orthopedic surgery. - Patient perioperative Risk assessment as documented by admitting physician 07/05: Right hip ORIF with intramedullary nail fixation, locked on 07/04/[address] Nuno Campbell. Mild tenderness present. Patient on pain medication. 2. Physical deconditioning/debility secondary to above ? Requested for PT OT eval and manager social services to assist with discharge planning 3. Right sided lung cancer (suprahilar, unclear exact specific type) with associated hypercalcemia of malignancy with recent transition to OR system. Patient to resume care following discharge 4. Hematuria ? Apparently traumatic following Epperson catheter insertion plan is to initiate CBI if hematuria does not resolve 5. Anemia ? Secondary to chronic disorder/anemia of malignancy. Patient was typed and crossmatched for 2 unit PRBC, subsequently monitoring H&H and transfuse if patient becomes symptomatic or hemoglobin falls below 7 6. Diabetes mellitus type II -patient's oral hypoglycemics held. Placed on long acting insulin, Accu-Cheks a.c. and at bedtime and covered with sliding scale insulin 07/05: Glucoses elevated 180-290. Started on Lantus 10 and subcutaneous daily. 7. Tobacco dependence ? Counseled on cessation, offered nicotine patch for tobacco cravings 8. GERD ? On PPI 9. COPD ? Not in exacerbation aerosol treatments as needed 10. Dyslipidemia ? Patient is on atorvastatin did continue home dose 11. 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 Restless leg syndrome ? Patient is on ropinirole we will continue 13. Severe protein calorie malnutrition ? Evidenced by reduced BMI muscle wasting and decreased oral intake. Consult placed to dietitian Laboratory Results 07/04/25 17:36: POC Glucose 215 H 07/04/25 22:01: POC Glucose 208 H 07/05/25 05:53: WBC 11.6 H, RBC 3.52 L, Hgb 7.5 L, Hct 25.1 L, MCV 71.3 L, MCH 21.3 L, MCHC 29.9 L, RDW Std Deviation 58.4 H, RDW Coeff of Tiffany 22.9 H, Plt Count 261, MPV 9.5, Immature Gran % (Auto) 0.700, Neut % (Auto) 79.1 H, Lymph % (Auto) 13.4 L, [place] % (Auto) 5.5, Eos % (Auto) 1.1, Baso % (Auto) 0.2, Absolute Neuts (auto) 9.2 H, Absolute Lymphs (auto) 1.55, Nucleated RBC % 0, Anisocytosis1+, Sodium 135, Potassium 3.8, Chloride 102, Carbon Dioxide 21.6, Anion Gap 12, BUN 19, Creatinine 1.14, Estim Creat Clear Calc 46.13 L, Est GFR (MDRD) Non-Af 66, BUN/Creatinine Ratio 16.8, Glucose 178 H, Calcium 9.1, Phosphorus 3.0, Magnesium 2.0 07/05/25 06:36: POC Glucose 182 H 07/05/25 10:59: POC Glucose 290 H 07/05/25 15:58: POC Glucose 232 H Charges/Coding Visit Charges Inpatient E&M: 29984 Subs Hosp L2 07/05/25 1645 <Electronically signed by Anthony Salgado MD> Cosigner Signature (if applicable): CC: ~ Signed [facility] Work Phone: 1(615) 522-870008-11-2025 Progress note [facility] Medical Records Department [address] [place] [address] Progress Note - Hospitalist 07/05/25 1634 MR#: [id number] Acct: [id number] Name: ITZEL ALONZO Rep #:[id number] : 1950 75 From: Anthony Kiser PCP: Carlene Haji, POWER BARKER OPERATOR-C Status:ADM IN [id number] Reason for Visit Chief Complaint: Fall, R hip pain. Objective Data Objective Data Vital Signs: Vital Signs Temp Pulse Resp BP Pulse Ox O2 Del Method O2 Flow Rate 98.2 F 106 H 16 139/85 H 95 Room Air 2 07/05/25 15:24 07/05/25 15:24 07/05/25 15:24 07/05/25 15:24 07/05/25 15:24 07/05/25 15:24 07/05/25 13:52 Oxygen Flow Rate (L/min) 2 Oxygen Delivery Method Room Air Weight: 132 lb 7.965 oz Body Mass Index (BMI) 17.5 Intake & Output: Intake and Output for Last 24 Hours 07/03/25 07/04/25 07/05/25 23:59 23:59 23:59 Intake Total 2158.75 / 2158.75 846.25 / 846.25 Output Total 2150 / 2400 450 / 450 Balance 8.75 / -241.25 396.25 / 396.25 Medical Nutrition Assessment Dietitian: Malnutrition Criteria Met Start: 07/05/25 10:37 Freq: Status: Active Protocol: Document 07/05/25 10:37 SB (Rec: 07/05/25 10:37 SB [id number]) Nutrition Malnutrition Evidence of Yes Malnutrition Exists Malnutrition (severe Chronic ): Evidenced By Suboptimal Energy Intake (Severe),Weight Loss (Severe), Physical Changes (Severe) Clinical Problem Chronic Disease or Condition Related Malnutrition Etiology severe related to inadequate energy intake and increased energy expenditure due to lung cancer Signs/Symptoms as evidenced by PO meeting <75% of estimated nutrition needs x 2-3 days, 23% unintentional weight loss x 7 months, and severe muscle/fat wasting in clavicle, temples, and orbital regions. Status Active Problem Unintended Weight Loss Etiology likely related to right sided lung cancer Signs/Symptoms as evidenced by 23% weight loss x 7 months Status Active Problem Recommendation Dietitian Adjust to liberal regular diet due to signs and Recommendations/ symptoms of malnutrition. Changes Discontinue 237ml ensure surgery TID with medpass and replace with 120ml EPHP 4x daily with medpass, pt prefers chocolate flavor. If pt continues to lose weight and has poor PO recommend nutrition support. Will monitor weight trends and provided additional ONS at needed. Lab / Micro Data 07/05/25 05:53 07/05/25 05:53 Labs: Laboratory Results - last 24 hr 07/04/25 17:36: POC Glucose 215 H 07/04/25 22:01: POC Glucose 208 H 07/05/25 05:53: WBC 11.6 H, RBC 3.52 L, Hgb 7.5 L, Hct 25.1 L, MCV 71.3 L, MCH 21.3 L, MCHC 29.9 L,RDW Std Deviation 58.4 H, RDW Coeff of Tiffany 22.9 H, Plt Count 261, MPV 9.5, Immature Gran % (Auto) 0.700, Neut % (Auto) 79.1 H, Lymph % (Auto) 13.4 L, [place] % (Auto) 5.5, Eos % (Auto) 1.1, Baso % (Auto) 0.2, Absolute Neuts (auto) 9.2 H, Absolute Lymphs (auto) 1.55, Nucleated RBC % 0, Anisocytosis1+, S odium 135, Potassium 3.8, Chloride 102, Carbon Dioxide 21.6, Anion Gap 12, BUN 19, Creatinine 1.14,Estim Creat Clear Calc 46.13 L, Est GFR (MDRD) Non-Af 66, BUN/Creatinine Ratio 16.8, Glucose 178 H,Calcium 9.1, Phosphorus 3.0, Magnesium 2.0 07/05/25 06:36: POC Glucose 182 H 07/05/25 10:59: POC Glucose 290 H 07/05/25 15:58: POC Glucose 232 H Physical Exam Narrative Seen and examined. Patient had right hip surgery done for right hip displaced intertrochanteric fracture Complain of pain 8/10 around the operative region Physical exam General: Alert, Oriented x3, Cooperative HEENT: Atraumatic, PERRLA, EOMI, Normocephalic. Oral: No Gingival or Mucosal Lesions/ Ulcerations Neck: Supple, No JVD, Negative Carotid Bruits Chest wall/Lungs: Air entry diminished in bilateral lung bases. No crepitation/rhonchi Cardiovascular: Regular rate and rhythm, Normal S1,S2, No M/G/R Abdomen: Bowel Sounds Present, Soft, Non Tender, Non-Distended : No dysuria. No renal angle tenderness. No suprapubic tenderness. Extremities: No edema, Capillary Refill Less than 3 Seconds Skin: Right hip surgical dressing is dry. Musculoskeletal: Tenderness around right hip area. No hematoma Neurological: Cranial nerves II-XII grossly intact, DTR 2+/4. No acute focal neurological deficit. Psych/Mental Status: Normal Affect, Appropriate. Assessment & Plan Assessment/Plan (1) Closed intertrochanteric fracture of right hip: QUALIFIERS: Encounter type: initial encounter Fracture alignment:displaced Qualified Code(s): S72.141A - Displaced intertrochanteric fracture ofright femur, initial encounter for closed fracture (2) Fall: PLAN: Plan Patient is a 75-year-old gentleman who experienced for with resultant right hip pain.Imaging studies obtained on admission did show Fracture of the right greater trochanter, extending into the intertrochanteric line. Admitted to regular nursing floor with consultation placed orthopedic surgeon 1. Fall with right hip fracture .Imaging studies obtained on admission did show Fracture of the right greater trochanter, extendinginto the intertrochanteric line. Admitted to regular nursing floor treatment initiated with with immobilization, pain management consultation placed to orthopedic surgery. Decision regarding surgical intervention deferred to orthopedic surgery. - Patient perioperative Risk assessment as documented by admitting physician 07/05: Right hip ORIF with intramedullary nail fixation, locked on 07/04/[address] Nuno Campbell. Mild tenderness present. Patient on pain medication. 2. Physical deconditioning/debility secondary to above ? Requested for PT OT eval and manager social services to assist with discharge planning 3. Right sided lung cancer (suprahilar, unclear exact specific type) with associated hypercalcemia of malignancy with recent transition to OR system. Patient to resume care following discharge 4. Hematuria ? Apparently traumatic following Epperson catheter insertion plan is to initiate CBI if hematuria doesnot resolve 5. Anemia ? Secondary to chronic disorder/anemia of malignancy. Patient was typed and crossmatched for 2 unitPRBC, subsequently monitoring H&H and transfuse if patient becomes symptomatic or hemoglobin falls below 7 6. Diabetes mellitus type II -patient's oral hypoglycemics held. Placed on long acting insulin, Accu-Cheks a.c. and at bedtime and covered with sliding scale insulin 07/05: Glucoses elevated 180-290. Started on Lantus 10 and subcutaneous daily. 7. Tobacco dependence ? Counseled on cessation, offered nicotine patch for tobacco cravings 8. GERD ? On PPI 9. COPD ? Not in exacerbation aerosol treatments as needed 10. Dyslipidemia ? Patient is on atorvastatin did continue home dose 11. 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 Restless leg syndrome ? Patient is on ropinirole we will continue 13. Severe protein calorie malnutrition ? Evidenced by reduced BMI muscle wasting and decreased oral intake. Consult placed to dietitian Laboratory Results 07/04/25 17:36: POC Glucose 215 H 07/04/25 22:01: POC Glucose 208 H 07/05/25 05:53: WBC 11.6 H, RBC 3.52 L, Hgb 7.5 L, Hct 25.1 L, MCV 71.3 L, MCH 21.3 L, MCHC 29.9 L,RDW Std Deviation 58.4 H, RDW Coeff of Tiffany 22.9 H, Plt Count 261, MPV 9.5, Immature Gran % (Auto) 0.700, Neut % (Auto) 79.1 H, Lymph % (Auto) 13.4 L, [place] % (Auto) 5.5, Eos % (Auto) 1.1, Baso % (Auto) 0.2, Absolute Neuts (auto) 9.2 H, Absolute Lymphs (auto) 1.55, Nucleated RBC % 0, Anisocytosis1+, S odium 135, Potassium 3.8, Chloride 102, Carbon Dioxide 21.6, Anion Gap 12, BUN 19, Creatinine 1.14,Estim Creat Clear Calc 46.13 L, Est GFR (MDRD) Non-Af 66, BUN/Creatinine Ratio 16.8, Glucose 178 H,Calcium 9.1, Phosphorus 3.0, Magnesium 2.0 07/05/25 06:36: POC Glucose 182 H 07/05/25 10:59: POC Glucose 290 H 07/05/25 15:58: POC Glucose 232 H Charges/Coding Visit Charges Inpatient E&M: 39790 Subs Hosp L2 07/05/25 1645 Cosigner Signature (if applicable): CC: ~ Signed [facility]08-11-2025 Progress note Author Pily Rodriguez [facility] Note Date/Time July 05, 2025 1: 30pm [facility] Medical Records Department [address] [place] [address] Progress Note - Orthopedic 07/05/25 0938 MR#: [id number] Acct: [id number] Name: ITZEL ALONZO Carlie Rep #:[id number] : 1950 75 From: Pily BERRIOS PCP: Carlene Haji POWER BARKER OPERATOR-René Status:ADM IN [place] [facility] [id number] Subjective Subjective Patient is 75-year-old male postop day 1 s/p right hip open reduction internal fixation intramedullary nail with Dr. Campbell 07/04/2025.. Patient resting comfortably in bed. Rates pain 5/ 10 at rest. States taking tylenol and oxycodon as needed and ice help to relieve pain. Patient has been up with therapy. Walking with the assit of a walker . Afebrile, no chest pain, shortness of breath, negative calf pain/ erythema, and no other signs of DVT. Objective Data Objective Data Vital Signs: Vital Signs Temp Pulse Resp BP Pulse Ox O2 Del Method O2 Flow Rate 97.6 F L 111 H 16 134/85 H 99 Nasal Cannula 2 07/05/25 08:08 07/05/25 08:08 07/05/25 08:08 07/05/25 08:08 07/05/25 08:08 07/05/25 08:08 07/05/25 08:08 Oxygen Flow Rate (L/min) 2 Oxygen Delivery Method Nasal Cannula Weight: 60.1 kg Body Mass Index (BMI) 17.5 Intake & Output: Intake and Output for Last 24 Hours 07/03/25 07/04/25 07/05/25 23:59 23:59 23:59 Intake Total 2158.75 / 2158.75 276.25 / 276.25 Output Total 2150 / 2400 450 / 450 Balance 8.75 / -241.25 -173.75 / -173.75 Lab / Micro Data 07/05/25 05:53 07/05/25 05:53 Labs: Laboratory Results - last 24 hr 07/04/25 07:50: Blood Type O POSITIVE, Antibody Screen NEGATIVE 07/04/25 14:47: POC Glucose 174 H 07/04/25 17:36: POC Glucose 215 H 07/04/25 22:01: POC Glucose 208 H 07/05/25 05:53: WBC 11.6 H, RBC 3.52 L, Hgb 7.5 L, Hct 25.1 L, MCV 71.3 L, MCH 21.3 L, MCHC 29.9 L, RDW Std Deviation 58.4 H, RDW Coeff of Tiffany 22.9 H, Plt Count 261, MPV 9.5, Immature Gran % (Auto) 0.700, Neut % (Auto) 79.1 H, Lymph % (Auto) 13.4 L, [place] % (Auto) 5.5, Eos % (Auto) 1.1, Baso % (Auto) 0.2, Absolute Neuts (auto) 9.2 H, Absolute Lymphs (auto) 1.55, Nucleated RBC % 0, Anisocytosis1+, Sodium 135, Potassium 3.8, Chloride 102, Carbon Dioxide 21.6, Anion Gap 12, BUN 19, Creatinine 1.14, Estim Creat Clear Calc 46.13 L, Est GFR (MDRD) Non-Af 66, BUN/Creatinine Ratio 16.8, Glucose 178 H, Calcium 9.1, Phosphorus 3.0, Magnesium 2.0 07/05/25 06:36: POC Glucose 182 H Radiography Diagnostic Testing: Radiology Impression Hip X-Ray 07/04/25 10:00 IMPRESSION: Postsurgical changes for repair of right femoral fracture with no acute complications. Reading Location: [facility] Physical Exam Narrative Patient resting comfortably in bed No signs of acute distress Satting well on room air Limb is warm to touch, Sensation intact throughout entire lower extremity, including saphenous, sural, superficial and deep peroneal, and tibial distribution. DP/PT pulses bounding. Dorsiflexion plantarflexion strength 5/5 Dressing clean dry intact Calf nontender to palpation, no erythema, no edema. Negative Homans Assessment & Plan Assessment/Plan (1) Closed intertrochanteric fracture of right hip: QUALIFIERS: Encounter type: initial encounter Fracture alignment:displaced Qualified Code(s): S72.141A - Displaced intertrochanteric fracture ofright femur, initial encounter for closed fracture PLAN: 1. Will continue PT today. Weightbearing as tolerated 2. plan for discharge per primary. Okay from an orthopedic standpoint when able. 3. Patient will follow up for post op appointment in 2 weeks this will need to be arranged. 4. WBC 11.6 acute reactive leukocytosis: secondary to pre operative decadron. noacute systemic signs of infection. will monitor, and likely self resolve. 5. H/H .1: post operavtive anemia secondary to acute blood loss intraoperatively. Patient is asymptomatic at this time. No intraoperative complications. will continue to monitor. no acute interventions. 6. DVT prophylaxis : Eliquis 2.5 mg twice daily for 2 weeks followed by aspirin 81 mg twice a day for 1 month. 7. Pain control: patient instructed to take tylenol 500mg 2 tablets TID. and oxycodone 1-2 tablets every 4-6 hours only as needed for pain control. 8. ok to remove post op dressing. post op day 5 07/05/25 1330 <Electronically signed by Pily BERRIOS> Cosigner Signature (if applicable): CC: ~ Signed ADDENDUM by AGUSTINA [email or web address] on 07/05/25 at 1330 Addendum orthopaedics to sign off at this time. 07/05/25 1330<Electronically signed by Pily BERRIOS> Cosigner Signature (if applicable): cc: ~* Signed [facility] Work Phone: 1(129) 754-839208-11-2025 Progress note [facility] Medical Records Department [address] [place] [address] Progress Note - Orthopedic 07/05/25 0938 MR#: [id number] Acct: [id number] Name: CHERIITZEL Carlie Rep #:[id number] : 1950 75 From: Pily BERRIOS PCP: Carlene Haji POWER BARKER OPERATOR-C Status:ADM IN [place] [facility] [id number] Subjective Subjective Patient is 75-year-old male postop day 1 s/p right hip open reduction internal fixation intramedullary nail with Dr. Campbell 07/04/2025.. Patient resting comfortably in bed. Rates pain 5/ 10 at rest. States taking tylenol and oxycodon as needed and ice help to relieve pain. Patient has been up with therapy. Walking with the assit of a walker . Afebrile, no chest pain, shortness of breath, negative calf pain/ erythema, and no other signs of DVT. Objective Data Objective Data Vital Signs: Vital Signs Temp Pulse Resp BP Pulse Ox O2 Del Method O2 Flow Rate 97.6 F L 111 H 16 134/85 H 99 Nasal Cannula 2 07/05/25 08:08 07/05/25 08:08 07/05/25 08:08 07/05/25 08:08 07/05/25 08:08 07/05/25 08:08 07/05/25 08:08 Oxygen Flow Rate (L/min) 2 Oxygen Delivery Method Nasal Cannula Weight: 60.1 kg Body Mass Index (BMI) 17.5 Intake & Output: Intake and Output for Last 24 Hours 07/03/25 07/04/25 07/05/25 23:59 23:59 23:59 Intake Total 2158.75 / 2158.75 276.25 / 276.25 Output Total 2150 / 2400 450 / 450 Balance 8.75 / -241.25 -173.75 / -173.75 Lab / Micro Data 07/05/25 05:53 07/05/25 05:53 Labs: Laboratory Results - last 24 hr 07/04/25 07:50: Blood Type O POSITIVE, Antibody Screen NEGATIVE 07/04/25 14:47: POC Glucose 174 H 07/04/25 17:36: POC Glucose 215 H 07/04/25 22:01: POC Glucose 208 H 07/05/25 05:53: WBC 11.6 H, RBC 3.52 L, Hgb 7.5 L, Hct 25.1 L, MCV 71.3 L, MCH 21.3 L, MCHC 29.9 L,RDW Std Deviation 58.4 H, RDW Coeff of Tiffany 22.9 H, Plt Count 261, MPV 9.5, Immature Gran % (Auto) 0.700, Neut % (Auto) 79.1 H, Lymph % (Auto) 13.4 L, [place] % (Auto) 5.5, Eos % (Auto) 1.1, Baso % (Auto) 0.2, Absolute Neuts (auto) 9.2 H, Absolute Lymphs (auto) 1.55, Nucleated RBC % 0, Anisocytosis1+, S odium 135, Potassium 3.8, Chloride 102, Carbon Dioxide 21.6, Anion Gap 12, BUN 19, Creatinine 1.14,Estim Creat Clear Calc 46.13 L, Est GFR (MDRD) Non-Af 66, BUN/Creatinine Ratio 16.8, Glucose 178 H,Calcium 9.1, Phosphorus 3.0, Magnesium 2.0 07/05/25 06:36: POC Glucose 182 H Radiography Diagnostic Testing: Radiology Impression Hip X-Ray 07/04/25 10:00 IMPRESSION: Postsurgical changes for repair of right femoral fracture with no acute complications. Reading Location: [facility] Physical Exam Narrative Patient resting comfortably in bed No signs of acute distress Satting well on room air Limb is warm to touch, Sensation intact throughout entire lower extremity, including saphenous, sural, superficial and deep peroneal, and tibial distribution. DP/PT pulses bounding. Dorsiflexion plantarflexion strength 5/5 Dressing clean dry intact Calf nontender to palpation, no erythema, no edema. Negative Homans Assessment & Plan Assessment/Plan (1) Closed intertrochanteric fracture of right hip: QUALIFIERS: Encounter type: initial encounter Fracture alignment:displaced Qualified Code(s): S72.141A - Displaced intertrochanteric fracture ofright femur, initial encounter for closed fracture PLAN: 1. Will continue PT today. Weightbearing as tolerated 2. plan for discharge per primary. Okay from an orthopedic standpoint when able. 3. Patient will follow up for post op appointment in 2 weeks this will need to be arranged. 4. WBC 11.6 acute reactive leukocytosis: secondary to pre operative decadron. noacute systemic signs of infection. will monitor, and likely self resolve. 5. H/H 7.04/18.1: post operavtive anemia secondary to acute blood loss intraoperatively. Patient is asymptomatic at this time. No intraoperative complications. will continue to monitor. no acute interventions. 6. DVT prophylaxis : Eliquis 2.5 mg twice daily for 2 weeks followed by aspirin 81 mg twice a day for 1 month. 7. Pain control: patient instructed to take tylenol 500mg 2 tablets TID. and oxycodone 1-2 tablets every 4-6 hours only as needed for pain control. 8. ok to remove post op dressing. post op day 5 07/05/25 1330 Cosigner Signature (if applicable): CC: ~ Signed ADDENDUM by AGUSTINA Stephens on 07/05/25 at 1330 Addendum orthopaedics to sign off at this time. 07/05/25 1330 Cosigner Signature (if applicable): cc: ~* Signed [facility]08-11-2025 Consult note Author Kayden Merino [facility] Note Date/Time July 05, 2025 6: 11am [facility] Medical Records Department [address] [place] [address] Anesthesia Postop Eval II 07/05/25 0611 MR#: [id number] Acct: [id number] Name: ITZEL ALONZO Rep #:[id number] : 1950 75 From: Kayden Merino MD PCP: SID Haro Status:ADM IN Y Race: AA Location: [place] [address] Anesthesia Postop Eval I Sum Postop Eval Completion status Anesthesia document: Postop Eval 1 completed: Yes Anesthesia Postop Eval I Summary Anesthesia Postop Eval I Summary: Anesthesia Postop Eval I: Assessment Summary Airway patent Yes 07/04/25 11:46 COMPREHENSIVE OPHTHALMOLOGIST.JCLI Spontaneous unlabored Yes 07/04/25 11:46 COMPREHENSIVE OPHTHALMOLOGIST.JCLI respirations Mental status Awake 07/04/25 11:46 COMPREHENSIVE OPHTHALMOLOGIST.JCLI nausea No 07/04/25 11:46 COMPREHENSIVE OPHTHALMOLOGIST.JCLI Vomiting No 07/04/25 11:46 COMPREHENSIVE OPHTHALMOLOGIST.JCLI Anesthesia Postop Eval I: Fluid Summary Crystalloid volume administer 500 07/04/25 11:46 COMPREHENSIVE OPHTHALMOLOGIST.JCLI (ml) Colloids volume administered ( ml) Blood Product volume administered (ml) Total IV fluid infused 500 07/04/25 11:46 COMPREHENSIVE OPHTHALMOLOGIST.JCLI Anesthesia Postop Eval I: Summary Notes Anesthesia Complication No 07/04/25 11:46 COMPREHENSIVE OPHTHALMOLOGIST.JCLI Anesthesia Complication Comment: Post-operative progress note Anesthesia: Postop Eval II Evaluation Mental status: Awake Pain Level: 0 nausea: No Vomiting: No 07/05/25610 <Electronically signed by Kayden Merino MD > Date _ Kayden Merino MD Cosigner Signature: Date CC: ~ Signed [facility] Work Phone: 1(410) 406-178108-11-2025 Consult note [facility] Medical Records Department [address] [place] [address] [place] [address] Anesthesia Postop Eval II 07/05/25610 MR#: [id number] Acct: [id number] Name: ITZEL ALONZO Rep #:[id number] : 1950 75 From: Kayden Merino MD PCP: SID Haro Status:ADM IN Y Race: AA Location: [place] [address] Anesthesia Postop Eval I Sum Postop Eval Completion status Anesthesia document: Postop Eval 1 completed: Yes Anesthesia Postop Eval I Summary Anesthesia Postop Eval I Summary: Anesthesia Postop Eval I: Assessment Summary Airway patent Yes 07/04/25 11:46 COMPREHENSIVE OPHTHALMOLOGIST.JCLI Spontaneous unlabored Yes 07/04/25 11:46 COMPREHENSIVE OPHTHALMOLOGIST.JCLI respirations Mental status Awake 07/04/25 11:46 COMPREHENSIVE OPHTHALMOLOGIST.JCLI nausea No 07/04/25 11:46 COMPREHENSIVE OPHTHALMOLOGIST.JCLI Vomiting No 07/04/25 11:46 COMPREHENSIVE OPHTHALMOLOGIST.JCLI Anesthesia Postop Eval I: Fluid Summary Crystalloid volume administer 500 07/04/25 11:46 COMPREHENSIVE OPHTHALMOLOGIST.JCLI (ml) Colloids volume administered ( ml) Blood Product volume administered (ml) Total IV fluid infused 500 07/04/25 11:46 COMPREHENSIVE OPHTHALMOLOGIST.JCLI Anesthesia Postop Eval I: Summary Notes Anesthesia Complication No 07/04/25 11:46 COMPREHENSIVE OPHTHALMOLOGIST.JCLI Anesthesia Complication Comment: Post-operative progress note Anesthesia: Postop Eval II Evaluation Mental status: Awake Pain Level: 0 nausea: No Vomiting: No 07/05/25 0611 > Date _ Kayden Merino MD [facility] Signature: Date CC: ~ Signed [facility]08-10-2025 Consult note Author Kye Luu [facility] Note Date/Time July 04, 2025 11 :46am [facility] Medical Records Department [address] [place] [address] Anesthesia Postop Eval I 07/04/25 1146 MR#: [id number] Acct: [id number] Name: ITZEL ALONZO Rep #:[id number] : 1950 75 From: Kye Sexton PCP: SID Haro Status:ADM IN Y Race: AA Location: [address] Anesthesia: Postop Eval I Current Vital Signs Temperature: 96.8 F Pulse Rate: 78 Blood Pressure: 105/78 Respiratory Rate: 18 Pulse Ox: 97 Oxygen Delivery Method: Room Air Assessment Airway patent: Yes Spontaneous unlabored respirations: Yes Mental status: Awake nausea: No Vomiting: No Anesthesia Complication: No Fluid Hydration Crystalloid volume administer (ml): 500 Total IV fluid infused: 500 Progress Note Anesthesia document: Postop Eval 1 completed: Yes 07/04/25 1146 <Electronically signed by Kye Merritt RNA> Date _ Kye Luu CRNA Cosigner Signature: Date CC: ~ Signed [facility] Work Phone: 1(276) 603-994308-10-2025 Consult note Author Nuno Campbell [facility] Note Date/Time July 04, 2025 10 :09am [facility] Medical Records Department [address] [place] [address] Consultation - Orthopedics 07/04/25 0959 MR#: [id number] Acct: [id number] Name: ITZEL ALONZO Rep #:[id number] : 1950 75 From: Nuno Kiser PCP: SID Haro Status:ADM IN Location: [place] [address]1 HPI Consult Data Date of Consult: 07/04/25 HPI Narrative HPI Narrative: ITZEL ALONZO, is a 75 M who presents after sustaining a mechanical fall on July 03, 2025. Patient denies pre-existing right hip pain. He does have a history of lung cancer. To their knowledge she has no metastatic process. Reportedly he does have calcifications in his brain. According to his he falls quite often. He was not able to walk yesterday after falling. He was brought to the hospital diagnosed with a hip fracture. Orthopedics was appropriately consulted. Patient admitted to the medical service. [facility] Medical History CKD (chronic kidney disease), stage II Chronic anemia Cancer of right lung Anxiety and depression GERD (gastroesophageal reflux disease) Cirrhosis Former smoker TIA (transient ischemic attack) Kidney stones Neuropathy PTSD (post-traumatic stress disorder) Hepatitis COPD (chronic obstructive pulmonary disease) Hypertension Diabetes Home Medications ?Medication ?Instructions ?Recorded ?Last Taken ?Type gabapentin 300 mg capsule 300 mg PO TID neuropathy 01/0907/02/25 21:00 History amlodipine 5 mg tablet 10 mg PO QHS blood pressure 05/09/21 07/02/25 21:00 History 10 mg aspirin 81 mg tablet,delayed 81 mg PO DAILY heart heal th 05/09/21 07/02/25 History release 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 05/09/21 07/02/25 History mcg-4.5 mcg/actuation aerosol inhaler (Symbicort) cyclobenzaprine 10 mg tablet 10 mg PO TID PRN muscle s pasms 05/09/21 07/02/25 History sildenafil 100 mg tablet 100 mg PO DAILY PRN Erectile 05/09/21 07/02/25 History Dysfunction atorvastatin 80 mg tablet 80 mg PO QHS cholesterol #90 tabs 05/12/21 07/02/25 21:00 Rx insulin aspart U-100 100 unit/mL 10 unit subcut TIDCM DM 12/12/24 07/02/25 History (3 mL) subcutaneous pen (Novolog FlexPen U-100 Insulin aspart) insulin glargine 100 unit/mL (3 10 unit subcut QPM Dm 05/04/25 07/02/25 History mL) subcutaneous pen (Lantus Solostar U-100 Insulin) magnesium hydroxide 400 mg/5 mL 5 ml PO DAILY PRN cons tipation 05/04/25 07/02/25 History oral suspension (Gentle Laxative (magnesium hydroxide)) ropinirole 1 mg tablet 1 mg PO QHS rls 05/04/2507/19 History acetaminophen 325 mg tablet 650 mg PO Q4H PRN pain 09/18 Unknown History albuterol 90 mcg/actuation aerosol 90 mcg inhalation Q 4H PRN sob 07/04/25 Unknown History inhaler calcium carbonate 1,500 mg PO DAILY supplement 07/04/25 07/02/25 History cyclopentolate 2 % eye drops 1 drp LEFT EYE QHS inflam ation 07/04/25 07/02/25 History ferrous sulfate 325 mg (65 mg 325 mg PO .every other d ay 07/04/25 Unknown History iron) tablet (Feosol) supplement lidocaine 5 % topical patch 2 patch topical DAILY PRN pain 07/04/25 Unknown History melatonin 3 mg tablet 3 mg PO QHS sleep 07/04/25 0 07/02/25 History nicotine 14 mg/24 hr daily 1 patch transdermal DAILY s moking 07/04/25 Unknown History transdermal patch (Nicoderm CQ) cessation oxycodone 5 mg tablet 5 mg PO Q6H PRN pain 5 07/02/25 History pantoprazole 40 mg tablet,delayed 40 mg PO DAILY heart burn 07/04/25 07/02/25 History release (Protonix) polyethylene glycol 3350 17 gram 17 g PO DAILY constip ation 07/04/25 07/02/25 History oral powder packet polyvinyl alcohol-povidone 1.4 1 drp ophthalmic (eye) 4X/DAY dry 07/04/25 07/02/25 History %-0.6 % eye drops eye prednisolone acetate 1 % eye 1 drp LEFT EYE Q6H inflam ation 07/04/25 07/02/25 History drops,suspension sennosides 8.6 mg-docusate sodium 2 tab-cap PO DAILY s tool softener 07/04/25 06/25/25 History 50 mg tablet (Senna with Docusate Sodium) tiotropium 2.5 mcg-olodaterol 2.5 2 puff inhalation DA MANDO asthma 07/04/25 07/02/25 History mcg/actuation mist for inhalation Allergy/AdvReac Type Severity Reaction Status Date / Time No Known Allergies Allergy Verified 05/11/25 14:05 Family History Mother CVA (cerebral vascular accident) Family History other Surgical History Hx of appendectomy Social History household members: none housing: apartment Smoking Status: Current some day smoker tobacco type: cigarettes and cigars alcohol intake: never substance use type: does not use ROS ROS Narrative Patient has chronic cough, chronic shortness of breath. Denies pre-existing hippain. Does have lower extremity neuropathy with numbness and tingling. Denies recent changes otherwise to eyes ears nose or throat heart or lungs bowel or bladder. Vital Signs Vital Signs Vital Signs: 07/03/25 19:10 07/03/25 21:09 07/03/25 23:00 Temperature 98.7 F Temperature Source Oral Pulse Rate 113 H 116 H 115 H Pulse Strength Respiratory Rate 18 20 H 22 H Respiratory Effort Respiratory Depth Respiratory Pattern Blood Pressure 185/93 H 160/98 H 160/90 H Blood Pressure Mean 123 118 113 Blood Pressure Source Blood Pressure Position Blood Pressure Location Pulse Ox 95 93 96 Oxygen Delivery Method Room Air Room Air Room Air 07/03/25 23:03 07/04/25 00:30 07/04/25 00:30 Temperature 98.3 F 97.4 F L Temperature Source Oral Pulse Rate 115 H 110 H 110 H Pulse Strength Respiratory Rate 22 H 21 H 21 H Respiratory Effort Normal Respiratory Depth Normal Respiratory Pattern Tachypnea Blood Pressure 160/90 H 157/95 H Blood Pressure Mean 113 115 Blood Pressure Source Monitor Blood Pressure Position Semi-Fowlers Blood Pressure Location Right Arm Pulse Ox 96 95 95 Oxygen Delivery Method Room Air Room Air 07/04/25 06:55 07/04/25 07:35 07/04/25 07:35 Temperature 99 F Temperature Source Temporal Pulse Rate 108 H 107 H Pulse Strength Respiratory Rate 18 20 H Respiratory Effort Respiratory Depth Respiratory Pattern Normal Blood Pressure 149/88 H Blood Pressure Mean 108 Blood Pressure Source Monitor Blood Pressure Position Semi-Fowlers Blood Pressure Location Right Arm Pulse Ox 94 93 Oxygen Delivery Method Room Air Room Air 07/04/25 07:42 07/04/25 08:30 07/04/25 09:30 Temperature 99 F 98 F Temperature Source Oral Pulse Rate 107 H 80 100 Pulse Strength Respiratory Rate 20 H 18 18 Respiratory Effort Normal Respiratory Depth Normal Respiratory Pattern Normal Blood Pressure 149/88 H 160/80 H Blood Pressure Mean 106 Blood Pressure Source Monitor Blood Pressure Position Semi-Fowlers Blood Pressure Location Left Arm Pulse Ox 93 95 94 Oxygen Delivery Method Room Air Room Air 07/04/25 09:30 Temperature Temperature Source Pulse Rate Pulse Strength Normal (2+) Respiratory Rate Respiratory Effort Respiratory Depth Respiratory Pattern Blood Pressure Blood Pressure Mean Blood Pressure Source Blood Pressure Position Blood Pressure Location Pulse Ox Oxygen Delivery Method Weight Weight: 58.1 kg Body Mass Index (BMI) 16.9 Physical Exam Narrative Patient seen with his present. He is alert and oriented x 3 and cooperative with exam. He has right hip pain on palpation. He has shortening and external rotation of the right hip. He has SCDs on. Left hip has no pain. He can gently plantarflex and dorsiflex toes and ankles. Skin is intact about the right hip. No calf pain. Negative Homans' sign. Medical Records Data Attestation: I reviewed the patient's medical records Lab / Micro Data Attestation: I reviewed the patient's lab results. 07/04/25 05:27 07/04/25 05:27 Labs: Laboratory Results - last 24 hr 07/03/25 21:43: Urine Color Yellow, Urine Clarity Clear, Urine pH 6.0, Ur Specific [place] 1.010, Urine Protein 100 H, Urine Glucose (UA) 100 H, Urine Ketones Negative, Urine Occult Blood 10 H, Urine Nitrite Negative, Urine Bilirubin Negative, Urine Urobilinogen Normal, Ur Leukocyte Esterase Negative, Urine RBC 0-5 SEEN, Urine WBC 0-5 SEEN, Ur Squamous Epith Cells 0-5 SEEN, Urine Bacteria RARE, Hyaline Casts 0-5 SEEN, Urine Mucus 0 SEEN 07/03/25 21:46: WBC 12.7 H, RBC 3.95 L, Hgb 8.4 L, Hct 27.9 L, MCV 70.6 L, MCH 21.3 L, MCHC 30.1 L, RDW Std Deviation 56.9 H, RDW Coeff of Tiffany 22.6 H, Plt Count 300, MPV 9.1, Immature Gran % (Auto) 0.500, Neut % (Auto) 90.1 H, Lymph % (Auto) 6.3 L, [place] % (Auto) 2.8, Eos % (Auto) 0.1, Baso % (Auto) 0.2, Absolute Neuts (auto) 11.4 H, Absolute Lymphs (auto) 0.80 L, Nucleated RBC % 0, Differential Comment SCANNED, RBC Morphology RARE, Hypochromasia 1+, Anisocytosis 1+, Microcytosis 1+, Marshall Cells RARE, PT 15.5 H, INR 1.2, APTT 22.7L, Sodium 133, Potassium 4.8, Chloride 100, Carbon Dioxide 20.2 L, Anion Gap 13,BUN 14, Creatinine 0.86, Estim Creat Clear Calc 66.03, Est GFR (MDRD) Non-Af 89,BUN/Creatinine Ratio 16.8, Glucose 204 H, Calcium 9.7, Phosphorus 2.5 L, Magnesium 1.9, NT pro BNP II 372 07/04/25 01:05: POC Glucose 193 H 07/04/25 05:27: WBC 12.7 H, RBC 3.69 L, Hgb 7.7 L, Hct 25.5 L, MCV 69.1 L, MCH 20.9 L, MCHC 30.2 L, RDW Std Deviation 55.5 H, RDW Coeff of Tiffany 22.7 H, Plt Count 301, MPV 9.5, Immature Gran % (Auto) 0.400, Neut % (Auto) 84.5 H, Lymph % (Auto) 10.7 L, [place] % (Auto) 4.1, Eos % (Auto) 0.2, Baso % (Auto) 0.1, Absolute Neuts (auto) 10.7 H, Absolute Lymphs (auto) 1.35, Nucleated RBC % 0, Platelet Estimate ADEQUATE, Anisocytosis 1+, Sodium 134, Potassium 4.2, Chloride 103, Carbon Dioxide 19.6 L, Anion Gap 12, BUN 13, Creatinine 0.78, Estim Creat Clear Calc 63.55, Est GFR (MDRD) Non-Af 92, BUN/Creatinine Ratio 16.4, Glucose 174 H, Calcium 9.2, Iron 17 L, TIBC 163 L, Iron Saturation 10.4, Unsaturated IBC 146 L,Ferritin 640 H, Total Bilirubin 0.45, AST 18, ALT 9, Alkaline Phosphatase 124, Total Protein 8.9 H, Albumin 3.1 L, Globulin 5.8 H, Albumin/Globulin Ratio 0.5 L,Blood Type Cancelled, Antibody Screen Cancelled 07/04/25 06:47: POC Glucose 166 H 07/04/25 07:50: PT 16.4 H, INR 1.3, Hemoglobin A1c 8.2 H, Blood Type O POSITIVE,Antibody Screen NEGATIVE Imaging Radiology Impression Hip/Pelvis X-Ray 07/03/25 20:20 IMPRESSION: Fracture of the right greater trochanter, extending into the intertrochanteric line. Malignancy can not be excluded. Reading Location: [facility] Lower Extremity CT 07/03/25 21:54 IMPRESSION: Acute, moderately comminuted and impacted right intertrochanteric femoral fracture. No aggressive osseous lesions. Reading Location: [facility] Assessment & Plan Assessment/Plan (1) Closed intertrochanteric fracture of right hip: QUALIFIERS: Encounter type: initial encounter Fracture alignment:displaced Qualified Code(s): S72.141A - Displaced intertrochanteric fracture ofright femur, initial encounter for closed fracture PLAN: His diagnosis and treatment options regarding his right hip intertrochanteric fracture discussed with him and his . Surgical and nonsurgical options discussed. They would like to proceed with surgical intervention. They understand this could be a pathologic fracture which could mean bone cancer./Metastatic process. They understand most likely we will not have a better understanding after surgery. Based on the x-rays and CAT scan andpre-existing hip having no pain, I believe this most likely is not a pathologic fracture. Risk of surgery including but not limited to from operative or postoperative complications. Risk of anesthetic complications such as heart attacks, strokes, seizures, or . Risk of infections. Risk of damage to nerves arteries tendons. Risk of inadvertent fractures or dislocations. Risk of bone or wound healing complications. Possibility of nonunion malunion pain stiffness weakness. Possible need for further surgery such as hardware removal. Risk of DVT PE and other potential complications could lead to or disability explained. No guarantees were stated or implied. All of their questions were answered. Appropriate informed consent was obtained and signed for surgical intervention. We will use Ancef for perioperative antibiotic. We will plan to use Eliquis forDVT prophylaxis for 2 weeks followed by aspirin 81 mg twice a day for 2 weeks. He will continue on the medical service. Multiple medical comorbidities such as diabetes, history of lung cancer, etc. noted and being managed by the hospitalist. Case discussed with Dr. Merino fromanesthesia. 07/04/25 1009 <Electronically signed by Nuno Campbell MD> Cosigner Signature (if applicable): CC: SID Haji~ Signed [facility] Work Phone: 1(474) 700-397108-10-2025 Radiology Diagnostic study note [facility] Imaging Services [address] [place], [place] [id number] Hip Min 2 Views (Portable) MR#: [id number] Acct: [id number] Name: ITZEL ALONZO Rep #: [id number] : 1950 M 75 From: Neymar Pedroza MD PCP: SID Haro Status: ADM IN Study:Hip Min 2 Views (Portable) Date of Exam : 07/04/25 Exam# [id number] Ordering Dr: Taylor Campbell MD PROCEDURE: HIP MIN 2 VIEWS (PORTABLE) 07/04/2025 REASON FOR EXAM: RT HIP FRACTURE REPAIR TECHNIQUE: HIP MIN 2 VIEWS (PORTABLE) Laterality: COMPARISON: Lower extremity x-ray July 03, 2025. FINDINGS: Bones: Status post surgical correction of right femoral fracture with metallic rods. Joints: No dislocations. Soft tissues: No soft tissue abnormalities. RAD/Hip Min 2 Views (Portable) IMPRESSION: Postsurgical changes for repair of right femoral fracture with no acute complications. Reading Location: [facility] CC: SID Haji; Dr. Nuno Campbell MD ~ Electronic Communications Technician: Signed [facility]08-10-2025 Consult note [facility] Medical Records Department [address] [place] [address] Anesthesia Postop Eval I 07/04/25 1146 MR#: [id number] Acct: [id number] Name: ITZEL ALONZO Rep #:[id number] : 1950 75 From: Kye Sexton PCP: SID Haro Status:ADM IN Y Race: AA Location: [place] [id number] -[id number] Anesthesia: Postop Eval I Current Vital Signs Temperature: 96.8 F Pulse Rate: 78 Blood Pressure: 105/78 Respiratory Rate: 18 Pulse Ox: 97 Oxygen Delivery Method: Room Air Assessment Airway patent: Yes Spontaneous unlabored respirations: Yes Mental status: Awake nausea: No Vomiting: No Anesthesia Complication: No Fluid Hydration Crystalloid volume administer (ml): 500 Total IV fluid infused: 500 Progress Note Anesthesia document: Postop Eval 1 completed: Yes 07/04/25 1146 RNA> Date _ Kye Click COMPREHENSIVE OPHTHALMOLOGIST Cosigner Signature: Date CC: ~ Signed [facility]08-10-2025 Procedure note [facility] Medical Records Department [address] [place] [address] Operative Report 07/04/25 1129 MR#: [id number] Acct: [id number] Name: CHERIITZEL A Rep #:[id number] : 1950 75 From: Nuno Kiser PCP: Carlene Haji NP-C Status:ADM IN Location: [place] [address] Problems Associated Problem List Diagnoses (1) Closed intertrochanteric fracture of right hip: Operative Report (Standard) Operative Information Date of Procedure: 07/04/25 Pre-Operative Diagnosis: Right hip intertrochanteric fracture Post-Operative Diagnosis: Same Surgery/Procedure Performed: Open reduction internal fixation right hip, long gamma nail real estate listing consultant: Yes Farm Equipment Maintenance Supervisor: Silvia Butler Tasks completed by assignment desk assistant: Closing and Implanting device Additional assistant boys track coach?: No Type of Anesthesia: Spinal RN Documented Start/Stop Times: Operation Date: 07/04/25 12:00 Case Time Into Pre-Op 07/04/25 09:46 Out of Pre-Op 07/04/25 10:21 Anesthesia Start 07/04/25 10:22 Into Room 07/04/25 10:22 Procedure Start 07/04/25 10:46 Procedure Start Time: 10:46 Procedure Stop Time: 11:40 Select all DRAINS/GRAFTS/IMPLANTS that apply: None Special Medications: Ancef 2 g, Tranexamic acid 1 g IV Estimated Blood Loss: 50 Fluids Replaced: 500 Specimen collected: Yes Description of specimen(s) removed: Bone reamings from right femur Description of surgery: Preoperative diagnosis: Right hip displaced intertrochanteric fracture Postoperative diagnosis: Same Title of operation: Right hip open reduction internal fixation, intramedullary nail fixation, locked Surgeon: Dr. Nuno Campbell Dealer Card Room: Silvia Butler PA-C Anesthesia: spinal Medications: Ancef Indications for surgery: Patient is an 75-year-old male sustained a hip fracture yesterday at home.Patient and their family explained diagnosis and treatment options. Patient evaluated by the medical services. Patient did wishto have surgery. Appropriate informed consent obtained and signed. Findings: Patient had a displaced intertrochanteric hip fracture. They underwent standard reduction, internal fixation using a Rosalva long gamma 3 nail. Nail size was 11 mm x 420. 125 degree neck angle. Proximal cross lock screw was 110. Distal cross lock screw was 42.5. X-rays taken throughout. operational assistant, physician assistant boys track coach, was utilized throughout the entire procedure. They were vital to the procedure from beginning to end. Theyhelp with patient transfer, patient padding and positioning, fracture reduction,maintenance of fracture reduction, internal fixation of implants, w ound closure,bandage application, patient transfer. Without certified surgical technologist, surgical timewould have been significantly increased and surgical outcome couldhave been less optimal. Procedure: Patient was taken to the operating room. Placed under a general anesthetic and transferred to the operating table with the help of the assistant boys track coach. With the help of the assistant boys track coach patient wasprepped and padded for surgery. Left foot was well-padded and placed in the traction boot. Right lower extremity was abducted and flexed out of harm's way. JACQUELINE hose and SCDs utilized. Fluoroscopy wasbrought in. With the help of the assistant boys track coach and manipulation of the limb, reduction was nicely obtained as verified under AP lateral and oblique fluoroscopic images. Reduction was improved with anterior to posterior pressure on the fracture site. Left hip was prepped padded draped in usual orthopedic sterile fashion for the procedure. Longitudinal incision was made just proximal to the greater trochanter. Taken through skin and subcutaneous tissue. Sharp awl was placed on the tip of the greater trochanter. Position verified under AP and lateral fluoroscopic images. This was then taken down inside the bone. Slightly bent ball-tipped guide alissa was then placedfrom the tip of the greater trochanter into the intra-medullary canal of the femur. Its position verified radiographically. Guide alissa was verified to be just above the patella on the AP and lateral x-rays of the knee. We measured the length of the guide alissa within the bone. Short reamer was then done over the tip of this with the help of the assistant boys track coach holding the soft tissue protector appropriately. Long reaming was done starting and reaming up to 12.5 mm distally. Was then with the help of the assistant boys track coach . once reaming was done we placed the short 125? angle device over the guidepin. This was easily introduced. Guide alissa removed. Outrigger device was utilized to position a guidepin from the lateral cortex of the femur across the fracture site and into the femoral head in a good position centrally, as noted on AP lateral andoblique fluoroscopic images. This was measured. Appropriate reaming done. Appropriate length lag screw was placed from the lateral cortex of the femur into the femoral head. A small amount of the screw was noted to be protruding laterally as planned. No cartilage penetration of the femoral head noted on anyx-ray. Fracture was then compressed with the outrigger device. Screw was placed seated downcompletely, confirmed, and then loosened one fourth turn. Fluoroscopy was utilized distally to verify the position of the alissa on AP and lateral images. Lateral image was used to verify the holes within the alissa. We placed a bit with the help of fluoroscopy through the slotted hole distally to allow for compression. We then measured and placed the appropriate length to cross locking screw through the slotted hole this was confirmed to be of adequate length in good position on AP and lateral images. Outrigger device removed. Final set of AP and lateral proximal and distal x-rays taken and saved. Incisions were thoroughly irrigated. Closing by the assistant boys track coach with deep0 Vicryl, mid layer 0 Vicryl, inverted 2-0 Vicryl, skin nayla. Puncture wounds closed with inverted 2-0 Vicryl and nayla. Xeroform 4 x 4's ABD tape applied. Patient was awoken from their anesthetic, transferred back to theirown bed with the help of the assistant boys track coach and into recovery room in satisfactory condition. Patient will continue to be admitted to the hospital under the hospitalist service. We will plan Eliquis 2.5 mg twice a day for 2 weeks. Followed by aspirin 81 mg twice a day for a month. Will use Ancef for perioperative antibiotic. He should follow-up in the orthopedic office in 2 weeks. Weightbearing as tolerated. Surgical Findings: Hip fracture Complications Complications: No Admit VTE Documentation VTE Present on Admission: No VTE Mechan Device Prophylaxis: SCD's VTE Pharm Prophylaxis ordered?: Yes 07/04/25 6318 Cosigner Signature (if applicable): CC: SID Haji; Dr. Johanne Evans MD; Dr. Nuno Campbell MD~ Signed [facility]08-10-2025 Consult note [facility] Medical Records Department [address] [place] [address] Consultation - Orthopedics 07/04/25 0959 MR#: [id number] Acct: [id number] Name: ITZEL ALOZNO Rep #:[id number] : 1950 75 From: Nuno Kiser PCP: SID Haro Status:ADM IN [place] [facility] [id number] HPI Consult Data Date of Consult: 07/04/25 HPI Narrative HPI Narrative: ITZEL ALONZO, is a 75 M who presents after sustaining a mechanical fall on July 03, 2025. Patient denies pre-existing right hip pain. He does have a history of lung cancer. To their knowledge she has no metastatic process. Reportedly he does have calcifications in his brain. According to his he falls quite often. He was not able to walk yesterday after falling. He was brought to the hospital diagnosed with a hip fracture. Orthopedics was appropriately consulted. Patient admitted to the medical service. [facility] Medical History CKD (chronic kidney disease), stage II Chronic anemia Cancer of right lung Anxiety and depression GERD (gastroesophageal reflux disease) Cirrhosis Former smoker TIA (transient ischemic attack) Kidney stones Neuropathy PTSD (post-traumatic stress disorder) Hepatitis COPD (chronic obstructive pulmonary disease) Hypertension Diabetes Home Medications ?Medication ?Instructions ?Recorded ?Last Taken ?Type gabapentin 300 mg capsule 300 mg PO TID neuropathy 01/0907/02/25 21:00 History amlodipine 5 mg tablet 10 mg PO QHS blood pressure 05/09/21 07/02/25 21:00 History 10 mg aspirin 81 mg tablet,delayed 81 mg PO DAILY heart heal th 05/09/21 07/02/25 History release 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 05/09/21 07/02/25 History mcg-4.5 mcg/actuation aerosol inhaler (Symbicort) cyclobenzaprine 10 mg tablet 10 mg PO TID PRN muscle s pasms 05/09/21 07/02/25 History sildenafil 100 mg tablet 100 mg PO DAILY PRN Erectile 05/09/21 07/02/25 History Dysfunction atorvastatin 80 mg tablet 80 mg PO QHS cholesterol #90 tabs 05/12/21 07/02/25 21:00 Rx insulin aspart U-100 100 unit/mL 10 unit subcut TIDCM DM 12/12/24 07/02/25 History (3 mL) subcutaneous pen (Novolog FlexPen U-100 Insulin aspart) insulin glargine 100 unit/mL (3 10 unit subcut QPM Dm 05/04/25 07/02/25 History mL) subcutaneous pen (Lantus Solostar U-100 Insulin) magnesium hydroxide 400 mg/5 mL 5 ml PO DAILY PRN cons tipation 05/04/25 07/02/25 History oral suspension (Gentle Laxative (magnesium hydroxide)) ropinirole 1 mg tablet 1 mg PO QHS rls 05/04/2507/19 History acetaminophen 325 mg tablet 650 mg PO Q4H PRN pain 09/18 Unknown History albuterol 90 mcg/actuation aerosol 90 mcg inhalation Q 4H PRN sob 07/04/25 Unknown History inhaler calcium carbonate 1,500 mg PO DAILY supplement 07/04/25 07/02/25 History cyclopentolate 2 % eye drops 1 drp LEFT EYE QHS inflam ation 07/04/25 07/02/25 History ferrous sulfate 325 mg (65 mg 325 mg PO .every other d ay 07/04/25 Unknown History iron) tablet (Feosol) supplement lidocaine 5 % topical patch 2 patch topical DAILY PRN pain 07/04/25 Unknown History melatonin 3 mg tablet 3 mg PO QHS sleep 07/04/25 0 07/02/25 History nicotine 14 mg/24 hr daily 1 patch transdermal DAILY s moking 07/04/25 Unknown History transdermal patch (Nicoderm CQ) cessation oxycodone 5 mg tablet 5 mg PO Q6H PRN pain 5 07/02/25 History pantoprazole 40 mg tablet,delayed 40 mg PO DAILY heart burn 07/04/25 07/02/25 History release (Protonix) polyethylene glycol 3350 17 gram 17 g PO DAILY constip ation 07/04/25 07/02/25 History oral powder packet polyvinyl alcohol-povidone 1.4 1 drp ophthalmic (eye) 4X/DAY dry 07/04/25 07/02/25 History %-0.6 % eye drops eye prednisolone acetate 1 % eye 1 drp LEFT EYE Q6H inflam ation 07/04/25 07/02/25 History drops,suspension sennosides 8.6 mg-docusate sodium 2 tab-cap PO DAILY s tool softener 07/04/25 06/25/25 History 50 mg tablet (Senna with Docusate Sodium) tiotropium 2.5 mcg-olodaterol 2.5 2 puff inhalation DA MANDO asthma 07/04/25 07/02/25 History mcg/actuation mist for inhalation Allergy/AdvReac Type Severity Reaction Status Date / Time No Known Allergies Allergy Verified 05/11/25 14:05 Family History Mother CVA (cerebral vascular accident) Family History other Surgical History Hx of appendectomy Social History household members: none housing: apartment Smoking Status: Current some day smoker tobacco type: cigarettes and cigars alcohol intake: never substance use type: does not use ROS ROS Narrative Patient has chronic cough, chronic shortness of breath. Denies pre-existing hippain. Does have lower extremity neuropathy with numbness and tingling. Denies recent changes otherwise to eyes ears noseor throat heart or lungs bowel or bladder. Vital Signs Vital Signs Vital Signs: 07/03/25 19:10 07/03/25 21:09 07/03/25 23:00 Temperature 98.7 F Temperature Source Oral Pulse Rate 113 H 116 H 115 H Pulse Strength Respiratory Rate 18 20 H 22 H Respiratory Effort Respiratory Depth Respiratory Pattern Blood Pressure 185/93 H 160/98 H 160/90 H Blood Pressure Mean 123 118 113 Blood Pressure Source Blood Pressure Position Blood Pressure Location Pulse Ox 95 93 96 Oxygen Delivery Method Room Air Room Air Room Air 07/03/25 23:03 07/04/25 00:30 07/04/25 00:30 Temperature 98.3 F 97.4 F L Temperature Source Oral Pulse Rate 115 H 110 H 110 H Pulse Strength Respiratory Rate 22 H 21 H 21 H Respiratory Effort Normal Respiratory Depth Normal Respiratory Pattern Tachypnea Blood Pressure 160/90 H 157/95 H Blood Pressure Mean 113 115 Blood Pressure Source Monitor Blood Pressure Position Semi-Fowlers Blood Pressure Location Right Arm Pulse Ox 96 95 95 Oxygen Delivery Method Room Air Room Air 07/04/25 06:55 07/04/25 07:35 07/04/25 07:35 Temperature 99 F Temperature Source Temporal Pulse Rate 108 H 107 H Pulse Strength Respiratory Rate 18 20 H Respiratory Effort Respiratory Depth Respiratory Pattern Normal Blood Pressure 149/88 H Blood Pressure Mean 108 Blood Pressure Source Monitor Blood Pressure Position Semi-Fowlers Blood Pressure Location Right Arm Pulse Ox 94 93 Oxygen Delivery Method Room Air Room Air 07/04/25 07:42 07/04/25 08:30 07/04/25 09:30 Temperature 99 F 98 F Temperature Source Oral Pulse Rate 107 H 80 100 Pulse Strength Respiratory Rate 20 H 18 18 Respiratory Effort Normal Respiratory Depth Normal Respiratory Pattern Normal Blood Pressure 149/88 H 160/80 H Blood Pressure Mean 106 Blood Pressure Source Monitor Blood Pressure Position Semi-Fowlers Blood Pressure Location Left Arm Pulse Ox 93 95 94 Oxygen Delivery Method Room Air Room Air 07/04/25 09:30 Temperature Temperature Source Pulse Rate Pulse Strength Normal (2+) Respiratory Rate Respiratory Effort Respiratory Depth Respiratory Pattern Blood Pressure Blood Pressure Mean Blood Pressure Source Blood Pressure Position Blood Pressure Location Pulse Ox Oxygen Delivery Method Weight Weight: 58.1 kg Body Mass Index (BMI) 16.9 Physical Exam Narrative Patient seen with his present. He is alert and oriented x 3 and cooperative with exam. He has right hip pain on palpation. He has shortening and external rotation of the right hip. He has SCDs on. Left hip has no pain. He can gently plantarflex and dorsiflex toes and ankles. Skin is intact about the right hip. No calf pain. Negative Homans' sign. Medical Records Data Attestation: I reviewed the patient's medical records Lab / Micro Data Attestation: I reviewed the patient's lab results. 07/04/25 05:27 07/04/25 05:27 Labs: Laboratory Results - last 24 hr 07/03/25 21:43: Urine Color Yellow, Urine Clarity Clear, Urine pH 6.0, Ur Specific [place] 1.010, Urine Protein 100 H, Urine Glucose (UA) 100 H, Urine Ketones Negative, Urine Occult Blood 10 H, UrineNitrite Negative, Urine Bilirubin Negative, Urine Urobilinogen Normal, Ur Leukocyte Esterase Negative, Urine RBC 0-5 SEEN, Urine WBC 0-5 SEEN, Ur Squamous Epith Cells 0-5 SEEN, Urine Bacteria RARE, Hyaline Casts 0-5 SEEN, Urine Mucus 0 SEEN 07/03/25 21:46: WBC 12.7 H, RBC 3.95 L, Hgb 8.4 L, Hct 27.9 L, MCV 70.6 L, MCH 21.3 L, MCHC 30.1 L,RDW Std Deviation 56.9 H, RDW Coeff of Tiffany 22.6 H, Plt Count 300, MPV 9.1, Immature Gran % (Auto) 0.500, Neut % (Auto) 90.1 H, Lymph % (Auto) 6.3 L, [place] % (Auto) 2.8, Eos % (Auto) 0.1, Baso % (Auto)0.2, Absolute Neuts (auto) 11.4 H, Absolute Lymphs (auto) 0.80 L, Nucleated RBC % 0, Differential Co mment SCANNED, RBC Morphology RARE, Hypochromasia 1+, Anisocytosis 1+, Microcytosis 1+, Marshall Cells RARE, PT 15.5 H, INR 1.2, APTT 22.7L, Sodium 133, Potassium 4.8, Chloride 100, Carbon Dioxide 20.2 L, Anion Gap 13,BUN 14, Creatinine 0.86, Estim Creat Clear Calc 66.03, Est GFR (MDRD) Non-Af 89,BUN/Cr eatinine Ratio 16.8, Glucose 204 H, Calcium 9.7, Phosphorus 2.5 L, Magnesium 1.9, NT pro BNP II 372 07/04/25 01:05: POC Glucose 193 H 07/04/25 05:27: WBC 12.7 H, RBC 3.69 L, Hgb 7.7 L, Hct 25.5 L, MCV 69.1 L, MCH 20.9 L, MCHC 30.2 L,RDW Std Deviation 55.5 H, RDW Coeff of Tiffany 22.7 H, Plt Count 301, MPV 9.5, Immature Gran % (Auto) 0.400, Neut % (Auto) 84.5 H, Lymph % (Auto) 10.7 L, [place] % (Auto) 4.1, Eos % (Auto) 0.2, Baso % (Auto) 0.1, Absolute Neuts (auto) 10.7 H, Absolute Lymphs (auto) 1.35, Nucleated RBC % 0, Platelet Estimate ADEQUATE, Anisocytosis 1+, Sodium 134, Potassium 4.2, Chloride 103, Carbon Dioxide 19.6 L, Anion Gap 12, BUN 13, Creatinine 0.78, Estim Creat Clear Calc 63.55, Est GFR (MDRD) Non-Af 92, BUN/Creatinine Ratio 16.4, Glucose 174 H, Calcium 9.2, Iron 17 L, TIBC 163 L, Iron Saturation 10.4, UnsaturatedIBC 146 L,Ferritin 640 H, Total Bilirubin 0.45, AST 18, ALT 9, Alkaline Phosphatase 124, Total Protein 8.9 H, Albumin 3.1 L, Globulin 5.8 H, Albumin/Globulin Ratio 0.5 L,Blood Type Cancelled, Antibody Screen Cancelled 07/04/25 06:47: POC Glucose 166 H 07/04/25 07:50: PT 16.4 H, INR 1.3, Hemoglobin A1c 8.2 H, Blood Type O POSITIVE,Antibody Screen NEGATIVE Imaging Radiology Impression Hip/Pelvis X-Ray 07/03/25 20:20 IMPRESSION: Fracture of the right greater trochanter, extending into the intertrochanteric line. Malignancy cannot be excluded. Reading Location: [id number] Lower Extremity CT 07/03/25 21:54 IMPRESSION: Acute, moderately comminuted and impacted right intertrochanteric femoral fracture. No aggressive osseous lesions. Reading Location: [id number] Assessment & Plan Assessment/Plan (1) Closed intertrochanteric fracture of right hip: QUALIFIERS: Encounter type: initial encounter Fracture alignment:displaced Qualified Code(s): S72.141A - Displaced intertrochanteric fracture ofright femur, initial encounter for closed fracture PLAN: His diagnosis and treatment options regarding his right hip intertrochanteric fracture discussed with him and his . Surgical and nonsurgical options discussed. They would like to proceed with surgical intervention. They understand this could be a pathologic fracture which could mean bone cancer./Metastatic process. They understand most likely we will not have a better understanding after surgery. Based on the x-rays and CAT scan andpre-existing hip having no pain, I believe this most likely is not a pathologic fracture. Risk of surgery including but not limited to from operative or postoperative complications. Risk of anesthetic complications such as heart attacks, strokes, seizures, or . Risk of infections. Risk of damage to nerves arteries tendons. Risk of inadvertent fractures or dislocations. Risk of bone or wound healing complications. Possibility of nonunion malunion pain stiffness weakness. Possible need for further surgery such as hardware removal. Risk of DVT PE and other potential complications could lead to or disability explained. No guarantees were stated or implied. All of their questions were answered. Appropriate informed consent was obtained and signed for surgical intervention. We will use Ancef for perioperative antibiotic. We will plan to use Eliquis forDVT prophylaxis for 2 weeks followed by aspirin 81 mg twice a day for 2 weeks. He will continue on the medical service. Multiple medical comorbidities such as diabetes, history of lung cancer, etc. noted and being managed by the hospitalist. Case discussed with Dr. Merino fromanesthesia. 07/04/25 1009 Cosigner Signature (if applicable): CC: SID Haji~ Signed [facility]08-10-2025 Consult note Author Kayden Merino [facility] Note Date/Time July 04, 2025 7: 42am [facility] Medical Records Department [address] [place] [address] Pre-Anesthesia Evaluation 07/04/25 0742 MR#: [id number] Acct: [id number] Name: ITZEL ALONZO Rep #:[id number] : 1950 75 From: Kayden Merino MD PCP: Carlene Haji [employer] O[employer]ATOR[employer] Status:ADM IN Y Race: AA Location: MS3 MS310 -1 ASA Classification* ASA Classification ASA Classification: 3 and E Assessment & Plan Anesthesia* Anesthesia Assessment Anesthesia Assessment: Discussed sedation and/or anesthesia options, risks, benefits, and alternatives with patient/parents/legal guardian/POA. Questions invited. The patient/parents/legal guardian/POA seems to understand and agrees to proceedwith anesthesia plan. Reviewed the physical assessment, medical history, allergy history and patient home medications list prior to surgery/procedure/anesthetic and documented any changes. Performed airway and anesthesia risk assessments. Anesthesia Type Anesthesia Type: Spinal (ga bkup) Anesthesia Focused Assessment* Temperature: 99 F Pulse Rate: 107 Blood Pressure: 149/88 Respiratory Rate: 20 Pulse Ox: 93 Airway Assessment Mouth opens: >3 cm Mallampati Score: II Labs Anesthesia Preop lab: CBC WBC 12.7 K/mm3 (4.4-11.0) H 07/04/25 05:27 5 RBC 3.69 M/mm3 (4.6-6.2) L 07/04/25 05:27 07/04/25 Hgb 7.7 g/dL (13.0-16.5) L 07/04/25 05:27 07/04/25 Hct 25.5 % (40-54) L 07/04/25 05:27 07/04/25 Plt Count 301 K/mm3 (150-450) 07/04/25 05:27 07/04/25 CHEMISTRY Potassium 4.2 mmol/L (3.3-5.1) 07/04/25 05:27 07/04/25 Sodium 134 mmol/L (133-145) 07/04/25 05:27 07/04/25 Magnesium 1.9 mg/dL (1.5-2.2) 07/03/25 21:46 07/03/25 Phosphorus 2.5 mg/dL (2.7-4.5) L 07/03/25 21:46 07/03/25 BUN 13 mg/dL (4-19) 07/04/25 05:27 07/04/25 Creatinine 0.78 mg/dL (0.70-1.20) 07/04/25 05:27 07/04/25 Glucose 174 mg/dL (70-99) H 07/04/25 05:27 07/04/25 POC Glucose 166 mg/dL (74-106) H 07/04/25 06:47 07/04/25 TSH 0.88 uIU/mL (0.358-3.74) 05/09/21 14:37 COAG PT 15.5 SECONDS (11.7-14.9) H 07/03/25 21:46 08/19 Pre-Assessment Diagnosis/Proposed Procedure Planned Operative Procedure(s): Gamma nail hip fracure Anesthesia History Anesthesia History - technology internship: Anesthesia History - technology internship Hx Hospitalization Any Problems With Anesthesia Yes: Pt gets confused. 07/04/25 00:46 Cholinesterase deficiency No 07/04/25 00:46 You/Your Family Experience No 07/04/25 00:46 fever (hyperthermia) with Relationship Recent Exposure to Contagious No 07/04/25 00:46 Disease Does patient have nerve No 07/04/25 00:46 stimulator Patient instructed to have device shut off --Does patient have Pacemaker No 07/03/25 23:28 or ICD? When Was Last Pacemaker Check QUESTION #4 FULL TEXT: You/Your Family Experience fever (hyperthermia) with Anesthesia Last Oral Intake Last Oral intake: Last Oral Intake NPO since 00:00 07/03/25 23:28 Meds taken in AM with sips of water? Meds patient instructed to take am of surgery PONV PONV - technology internship: PONV - technology internship Female HX of Motion Sickness HX of N/V After Surgery Non-Smoker Duration of Surgery greater than 60 minutes Number of Risk Factors PONV Score Height & Weight Height & Weight: Anesthesia: Height & Weight Height 6 ft 1 in 07/04/25 00:20 Weight: 58.1 kg 07/04/25 05:45 Body Mass Index (BMI) 16.9 07/04/25 05:45 Respiratory Assessment Respiratory Assessment - technology internship: Respiratory Tract Infection Hx - technology internship Hx Respiratory Tract Infection No 07/04/25 00:46 STOP Sleep Apnea STOP Sleep Apnea - technology internship: STOP Sleep Apnea - technology internship Hx Hypertension Yes 07/04/25 07:08 Hx Sleep Apnea Yes 07/04/25 00:20 CPAP No 07/04/25 00:20 BIPAP No 07/04/25 00:20 Do you snore loudly (louder Yes 07/04/25 00:20 than talking or can be heard Do you often feel tired/ fatigued/ sleepy during daytime? Has anyone observed you stop breathing during sleep? STOP Results Positive 07/04/25 00:20 QUESTION #5 FULL TEXT : Do you snore loudly (louder than talking or can be heard through closed doors)? 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 Specify any problems Hx of Preganancy in last 3 N/A 07/04/25 00:20 Months Nurse Filling Out Transfusion JANET 07/04/25 00:20 & Questions: Date: 07/04/25 07/04/25 00:20 Time: 00:34 07/04/25 00:20 Patient unable to answer at this time (ie. 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 INHALATION Q2H PRN PRN Dyspnea, wheezing Amlodipine Besylate 10 mg 07/04/25 22:00 Amlodipine 10 Mg Tablet PO QHS [facility] Protocol Atorvastatin Calcium 80 mg 07/04/25 22:00 Atorvastatin Calcium 80 Mg Tablet PO QHS [facility] Budesonide 0.5 mg 07/03/25 23:57 07/04/25 07:34 Budesonide Respules 0.5 Mg/2 Ml Ampul.Neb. INHALATION 0.5 mg BID.RT [facility] Administration Calamine/Phenol 1 applic 07/04/25 10:00 Menthol/Lanolin/Calamine/Znox 113 Gm Tube TOPICAL 4X/DAY [facility] Protocol Calcium Carbonate 1,500 mg 07/04/25 10:00 Calcium (Elemental) 500 Mg Tablet PO DAILY [facility] Cyclobenzaprine HCl 10 mg 07/04/25 07:37 Cyclobenzaprine Hcl 10 Mg Tablet PO TID PRN muscle spasms Gabapentin 300 mg 07/04/25 14:00 Gabapentin 300 Mg Capsule PO TID [facility] Glucagon 1 mg 07/03/25 23:57 Glucagon 1 Mg/Ml Syringe IM X1 PRN HYPOGLYCEMIA Protocol Guaifenesin 20 ml 07/03/25 23:57 Guaifenesin 10 Ml Udc (200mg/10ml) PO Q4H PRN PRN COUGH Hydralazine HCl 10 mg 07/03/25 23:57 Hydralazine 20 Mg/Ml Vial IV Q4H PRN PRN SBP > 160 Protocol Tranexamic Acid 1,000 mg/ 110 mls @ 440 mls/hr 07/04/25 10:00 Sodium Chloride IV 07/04/25 10:14 X1 ONE Cefazolin Sodium 2 gm/ Sodium 110 mls @ 200 mls/hr 07/04/25 10:00 Chloride IV 07/04/25 10:32 X1 ONE Sodium Chloride 1,000 mls @ 75 mls/hr 07/03/25 23:57 07/04/25 02:09 IV 07/04/25 13:16 75 mls/hr .[id number] [facility] Administration Dextrose 250 mls @ 0 mls/hr 07/03/25 23:57 Dextrose 10%-Water IV .Q0M PRN HYPOGLYCEMIA Protocol As Directed Sodium Chloride 250 mls @ 15 mls/hr 07/04/25 00:53 IV .[id number] PRN Saline Flush Sodium Chloride 250 mls @ 15 mls/hr 07/04/25 00:53 IV .[id number] PRN Additional IVPB Infusion Insulin Human Lispro 0 unit 07/04/25 07:00 07/04/25 06:56 Insulin Lispro 100 Unit/Ml Insuln.Pen SC Not Given ACHS [facility] Protocol Magnesium Hydroxide 5 ml 07/04/25 07:37 Magnesium Hydroxide 30 Ml Udc PO DAILY PRN constipation Melatonin 3 mg 07/03/25 23:57 Melatonin 3 Mg Tablet PO QHS PRN PRN INSOMNIA Morphine Sulfate 2 - 4 mg 07/03/25 23:57 07/04/25 06:55 Morphine 4 Mg/Ml Syringe IV 4 mg Q2H PRN PRN Administration Pain Score 4-10 Nicotine mg 07/04/25 10:00 Nicotine 14 Mg Patch TD DAILY [facility] Non-Formulary Medication 90 mcg 07/04/25 07:45 Albuterol INHALATION Q4H PRN [facility] Non-Formulary Medication 325 mg 07/04/25 07:45 Ferrous Sulfate [Feosol] PO .every other day [facility] Non-Formulary Medication 1 mg 07/04/25 22:00 Ropinirole PO QHS [facility] Non-Formulary Medication 1 drp 07/04/25 22:00 Cyclopentolate LEFT EYE QHS [facility] Non-Formulary Medication 1 drp 07/04/25 10:00 Polyvinyl Alcohol-Povidone OPHTHALMIC 4X/DAY [facility] Non-Formulary Medication 1 drp 07/04/25 07:45 Prednisolone Acetate LEFT EYE Q6H [facility] Ondansetron HCl 4 mg 07/03/25 23:57 Ondansetron 4 Mg/2 Ml Vial IV Q8H PRN PRN NAUSEA/VOMITING Oxycodone HCl 5 - 10 mg 07/03/25 23:57 Oxycodone 5 Mg Tablet PO Q4H PRN PRN Pain Score 4-10 Pantoprazole Sodium 40 mg 07/04/25 10:00 Pantoprazole Sodium 40 Mg Tablet PO DAILY CAMMIE Polyethylene Glycol 17 gm 07/04/25 10:00 Polyethylene Glycol 3350 17 Gm Packet PO DAILY [facility] Senna/Docusate Sodium 2 tablet 07/04/25 10:00 Senna/Docusate Sodium 1 Tablet PO BID CAM[facility] Sodium Chloride 10 - 40 ml 07/04/25 00:53 0.9% Saline Lock 10 Ml Syringe IV UD PRN SALINE FLUSH [facility] Medical History CKD (chronic kidney disease), stage II Chronic anemia Cancer of right lung Anxiety and depression GERD (gastroesophageal reflux disease) Cirrhosis Former smoker TIA (transient ischemic attack) Kidney stones Neuropathy PTSD (post-traumatic stress disorder) Hepatitis COPD (chronic obstructive pulmonary disease) Hypertension Diabetes Home Medications ?Medication ?Instructions ?Recorded ?Last Taken ?Type gabapentin 300 mg capsule 300 mg PO TID neuropathy 01/0907/02/25 21:00 History amlodipine 5 mg tablet 10 mg PO QHS blood pressure 05/09/21 07/02/25 21:00 History 10 mg aspirin 81 mg tablet,delayed 81 mg PO DAILY heart heal th 05/09/21 07/02/25 History release 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 05/09/21 07/02/25 History mcg-4.5 mcg/actuation aerosol inhaler (Symbicort) cyclobenzaprine 10 mg tablet 10 mg PO TID PRN muscle s pasms 05/09/21 07/02/25 History sildenafil 100 mg tablet 100 mg PO DAILY PRN Erectile 05/09/21 07/02/25 History Dysfunction atorvastatin 80 mg tablet 80 mg PO QHS cholesterol #90 tabs 05/12/21 07/02/25 21:00 Rx insulin aspart U-100 100 unit/mL 10 unit subcut TIDCM DM 12/12/24 07/02/25 History (3 mL) subcutaneous pen (Novolog FlexPen U-100 Insulin aspart) insulin glargine 100 unit/mL (3 10 unit subcut QPM Dm 05/04/25 07/02/25 History mL) subcutaneous pen (Lantus Solostar U-100 Insulin) magnesium hydroxide 400 mg/5 mL 5 ml PO DAILY PRN cons tipation 05/04/25 07/02/25 History oral suspension (Gentle Laxative (magnesium hydroxide)) ropinirole 1 mg tablet 1 mg PO QHS rls 05/04/2507/19 History acetaminophen 325 mg tablet 650 mg PO Q4H PRN pain 09/18 Unknown History albuterol 90 mcg/actuation aerosol 90 mcg inhalation Q 4H PRN sob 07/04/25 Unknown History inhaler calcium carbonate 1,500 mg PO DAILY supplement 07/04/25 07/02/25 History cyclopentolate 2 % eye drops 1 drp LEFT EYE QHS inflam ation 07/04/25 07/02/25 History ferrous sulfate 325 mg (65 mg 325 mg PO .every other d ay 07/04/25 Unknown History iron) tablet (Feosol) supplement lidocaine 5 % topical patch 2 patch topical DAILY PRN pain 07/04/25 Unknown History melatonin 3 mg tablet 3 mg PO QHS sleep 07/04/25 0 07/02/25 History nicotine 14 mg/24 hr daily 1 patch transdermal DAILY s moking 07/04/25 Unknown History transdermal patch (Nicoderm CQ) cessation oxycodone 5 mg tablet 5 mg PO Q6H PRN pain 5 07/02/25 History pantoprazole 40 mg tablet,delayed 40 mg PO DAILY heart burn 07/04/25 07/02/25 History release (Protonix) polyethylene glycol 3350 17 gram 17 g PO DAILY constip ation 07/04/25 07/02/25 History oral powder packet polyvinyl alcohol-povidone 1.4 1 drp ophthalmic (eye) 4X/DAY dry 07/04/25 07/02/25 History %-0.6 % eye drops eye prednisolone acetate 1 % eye 1 drp LEFT EYE Q6H inflam ation 07/04/25 07/02/25 History drops,suspension sennosides 8.6 mg-docusate sodium 2 tab-cap PO DAILY s tool softener 07/04/25 06/25/25 History 50 mg tablet (Senna with Docusate Sodium) tiotropium 2.5 mcg-olodaterol 2.5 2 puff inhalation DA MANDO asthma 07/04/25 07/02/25 History mcg/actuation mist for inhalation Allergy/AdvReac Type Severity Reaction Status Date / Time No Known Allergies Allergy Verified 05/11/25 14:05 Family History Mother CVA (cerebral vascular accident) Family History other Surgical History Hx of appendectomy Social History household members: none housing: apartment Smoking Status: Current some day smoker tobacco type: cigarettes and cigars alcohol intake: never substance use type: does not use Review of Systems (Anesthesia) ROS Narrative System reviewed and no additional complaints, except as documented. 07/04/25741 <Electronically signed by Kayden Merino MD > Date _ Kayden Merino MD Cosigner Signature: Date CC: ~ Signed [facility] Work Phone: [phone] 866-736608-10-2025 Progress note Author Uche Ericsuzanna [facility] Note Date/Time July 04, 2025 7: 37am [facility] Medical Records Department [address] [place] [id number] Progress Note - Hospitalist 07/04/25720 MR#: [id number] Acct: [id number] Name: ITZEL ALONZO Rep #:[id number] : 1950 75 From: Uche Felix MD PCP: SID Haro Status:ADM IN Location: [place] [id number] Reason for Visit Chief Complaint: Fall, R hip pain. Subjective Subjective Patient is a 75-year-old gentleman who experienced for with resultant right hip pain.Imaging studies obtained on admission did show Fracture of the right greater trochanter, extending into the intertrochanteric line. Admitted to regular nursing floor with consultation placed orthopedic surgeon Objective Data Objective Data Vital Signs: Vital Signs Temp Pulse Resp BP Pulse Ox O2 Del Method 99 F 108 H 18 149/88 H 94 Room Air 07/04/25 06:55 07/04/25 06:55 07/04/25 06:55 07/04/25 06:55 07/04/25 06:55 07/04/25 06:55 Oxygen Delivery Method Room Air Weight: 58.1 kg Body Mass Index (BMI) 16.9 Intake & Output: Intake and Output for Last 24 Hours 07/02/25 07/03/25 07/04/25 23:59 23:59 23:59 Intake Total 1000 / 1000 Output Total 1000 / 1000 Balance 0 / 0 Lab / Micro Data 07/04/25 05:27 07/04/25 05:27 Labs: Laboratory Results - last 24 hr 07/03/25 21:43: Urine Color Yellow, Urine Clarity Clear, Urine pH 6.0, Ur Specific [place] 1.010, Urine Protein 100 H, Urine Glucose (UA) 100 H, Urine Ketones Negative, Urine Occult Blood 10 H, Urine Nitrite Negative, Urine Bilirubin Negative, Urine Urobilinogen Normal, Ur Leukocyte Esterase Negative, Urine RBC 0-5 SEEN, Urine WBC 0-5 SEEN, Ur Squamous Epith Cells 0-5 SEEN, Urine Bacteria RARE, Hyaline Casts 0-5 SEEN, Urine Mucus 0 SEEN 07/03/25 21:46: WBC 12.7 H, RBC 3.95 L, Hgb 8.4 L, Hct 27.9 L, MCV 70.6 L, MCH 21.3 L, MCHC 30.1 L, RDW Std Deviation 56.9 H, RDW Coeff of Tiffany 22.6 H, Plt Count 300, MPV 9.1, Immature Gran % (Auto) 0.500, Neut % (Auto) 90.1 H, Lymph % (Auto) 6.3 L, [place] % (Auto) 2.8, Eos % (Auto) 0.1, Baso % (Auto) 0.2, Absolute Neuts (auto) 11.4 H, Absolute Lymphs (auto) 0.80 L, Nucleated RBC % 0, Differential Comment SCANNED, RBC Morphology RARE, Hypochromasia 1+, Anisocytosis 1+, Microcytosis 1+, Allyson Cells RARE, PT 15.5 H, INR 1.2, APTT 22.7L, Sodium 133, Potassium 4.8, Chloride 100, Carbon Dioxide 20.2 L, Anion Gap 13,BUN 14, Creatinine 0.86, Estim Creat Clear Calc 66.03, Est GFR (MDRD) Non-Af 89,BUN/Creatinine Ratio 16.8, Glucose 204 H, Calcium 9.7, Phosphorus 2.5 L, Magnesium 1.9, NT pro BNP II 372 07/04/25 01:05: POC Glucose 193 H 07/04/25 05:27: WBC 12.7 H, RBC 3.69 L, Hgb 7.7 L, Hct 25.5 L, MCV 69.1 L, MCH 20.9 L, MCHC 30.2 L, RDW Std Deviation 55.5 H, RDW Coeff of Tiffany 22.7 H, Plt Count 301, MPV 9.5, Immature Gran % (Auto) 0.400, Neut % (Auto) 84.5 H, Lymph % (Auto) 10.7 L, [place] % (Auto) 4.1, Eos % (Auto) 0.2, Baso % (Auto) 0.1, Absolute Neuts (auto) 10.7 H, Absolute Lymphs (auto) 1.35, Nucleated RBC % 0, Sodium 134,Potassium 4.2, Chloride 103, Carbon Dioxide 19.6 L, Anion Gap 12, BUN 13, Creatinine 0.78, Estim Creat Clear Calc 63.55, Est GFR (MDRD) Non-Af 92, BUN/Creatinine Ratio 16.4, Glucose 174 H, Calcium 9.2, Iron 17 L, TIBC 163 L, Iron Saturation 10.4, Unsaturated IBC 146 L, Ferritin 640 H, Total Bilirubin 0.45, AST 18, ALT 9, Alkaline Phosphatase 124, Total Protein 8.9 H, Albumin 3.1 L, Globulin 5.8 H, Albumin/Globulin Ratio 0.5 L, Blood Type Cancelled, Antibody Screen Cancelled Radiography Diagnostic Testing: Radiology Impression Hip/Pelvis X-Ray 07/03/25 20:20 IMPRESSION: Fracture of the right greater trochanter, extending into the intertrochanteric line. Malignancy can not be excluded. Reading Location: [id number] Lower Extremity CT 07/03/25 21:54 IMPRESSION: Acute, moderately comminuted and impacted right intertrochanteric femoral fracture. No aggressive osseous lesions. Reading Location: [facility] Physical Exam Narrative GENERAL: cooperative but frail looking HEENT: Atraumatic; normocephalic EYES; Anicteric, Normal Conjunctiva NECK; supple, normal thyroid, RESPIRATORY: Diminished to auscultation CARDIOVASCULAR: Regular S1 S2, GI: soft, normoactive bowel sounds, : Epperson catheter in place with hematuria; EXTREMITIES: No edema, no clubbing, MUSCULOSKELETAL: Right lower extremity externally rotate NEURO: Awake; no lateralizing signs. SKIN: No Rash PSYCH; Flat affect Assessment & Plan Assessment/Plan (1) Closed intertrochanteric fracture of right hip: (2) Fall: PLAN: Plan Patient is a 75-year-old gentleman who experienced for with resultant right hip pain.Imaging studies obtained on admission did show Fracture of the right greater trochanter, extending into the intertrochanteric line. Admitted to regular nursing floor with consultation placed orthopedic surgeon 1. Fall with right hip fracture .Imaging studies obtained on admission did show Fracture of the right greater trochanter, extending into the intertrochanteric line. Admitted to regular nursing floor treatment initiated with with immobilization, pain management consultation placed to orthopedic surgery. Decision regarding surgical intervention deferred to orthopedic surgery. - Patient perioperative Risk assessment as documented by admitting physician 2. Physical deconditioning/debility secondary to above ? Requested for PT OT eval and manager social services to assist with discharge planning 3. Right sided lung cancer (suprahilar, unclear exact specific type) with associated hypercalcemia of malignancy with [facility] Patient to resume care following discharge 4. Hematuria ? Apparently traumatic following Epperson catheter insertion plan is to initiate CBI if hematuria does not resolve 5. Anemia ? Secondary to chronic disorder/anemia of malignancy. Patient was typed and crossmatched for 2 unit PRBC, subsequently monitoring H&H and transfuse if patient becomes symptomatic or hemoglobin falls below 7 6. Diabetes mellitus type II -patient's oral hypoglycemics held. Placed on long acting insulin, Accu-Cheks a.c. and at bedtime and covered with sliding scale insulin 7. Tobacco dependence ? Counseled on cessation, offered nicotine patch for tobacco cravings 8. GERD ? On PPI 9. COPD ? Not in exacerbation aerosol treatments as needed 10. Dyslipidemia ? Patient is on atorvastatin did continue home dose 11. 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 Restless leg syndrome ? Patient is on ropinirole we will continue 13. Severe protein calorie malnutrition ? Evidenced by reduced BMI muscle wasting and decreased oral intake. Consult placed to dietitian Time spent in the patient's overall evaluation,decision-making process, review of diagnostic data, adjustment of management, discussion with other providers, nursing nursing and ancillary staff involved in patient's care documentation, 50 Minutes Charges/Coding Visit Charges Inpatient E&M: 62569 Subs Hosp L3 07/04/25 0737 <Electronically signed by Uche Felix MD> Cosigner Signature (if applicable): CC: ~ Signed [facility] Work Phone: [phone] 481-346708-10-2025 Consult note [facility] Medical Records Department [address] [place] [address] Pre-Anesthesia Evaluation 07/04/25 0742 MR#: [id number] Acct: [id number] Name: ITZEL ALONZO Rep #:[id number] : 1950 75 From: Kayden Merino MD PCP: LUIS MIGUEL HaroC Status:ADM IN Y Race: AA [place] [facility] [id number] ASA Classification* ASA Classification ASA Classification: 3 and E Assessment & Plan Anesthesia* Anesthesia Assessment Anesthesia Assessment: Discussed sedation and/or anesthesia options, risks, benefits, and alternatives with patient/parents/legal guardian/POA. Questions invited. The patient/parents/legal guardian/POA seems to understand and agrees to proceedwith anesthesia plan. Reviewed the physical assessment, medical history, allergy history and patient home medications list prior to surgery/procedure/anesthetic and documented any changes. Performed airway and anesthesia risk assessments. Anesthesia Type Anesthesia Type: Spinal (ga bkup) Anesthesia Focused Assessment* Temperature: 99 F Pulse Rate: 107 Blood Pressure: 149/88 Respiratory Rate: 20 Pulse Ox: 93 Airway Assessment Mouth opens: >3 cm Mallampati Score: II Labs Anesthesia Preop lab: CBC WBC 12.7 K/mm3 (4.4-11.0) H 07/04/25 05:27 08/10/2 5 RBC 3.69 M/mm3 (4.6-6.2) L 07/04/25 05:27 07/04/25 Hgb 7.7 g/dL (13.0-16.5) L 07/04/25 05:27 07/04/25 Hct 25.5 % (40-54) L 07/04/25 05:27 07/04/25 Plt Count 301 K/mm3 (150-450) 07/04/25 05:27 07/04/25 CHEMISTRY Potassium 4.2 mmol/L (3.3-5.1) 07/04/25 05:27 07/04/25 Sodium 134 mmol/L (133-145) 07/04/25 05:27 07/04/25 Magnesium 1.9 mg/dL (1.5-2.2) 07/03/25 21:46 07/03/25 Phosphorus 2.5 mg/dL (2.7-4.5) L 07/03/25 21:46 07/03/25 BUN 13 mg/dL (4-19) 07/04/25 05:27 07/04/25 Creatinine 0.78 mg/dL (0.70-1.20) 07/04/25 05:27 07/04/25 Glucose 174 mg/dL (70-99) H 07/04/25 05:27 07/04/25 POC Glucose 166 mg/dL (74-106) H 07/04/25 06:47 07/04/25 TSH 0.88 uIU/mL (0.358-3.74) 05/09/21 14:37 COAG PT 15.5 SECONDS (11.7-14.9) H 07/03/25 21:46 08/19 Pre-Assessment Diagnosis/Proposed Procedure Planned Operative Procedure(s): Gamma nail hip fracure Anesthesia History Anesthesia History - technology internship: Anesthesia History - technology internship Hx Hospitalization Any Problems With Anesthesia Yes: Pt gets confused. 07/04/25 00:46 Cholinesterase deficiency No 07/04/25 00:46 You/Your Family Experience No 07/04/25 00:46 fever (hyperthermia) with Relationship Recent Exposure to Contagious No 07/04/25 00:46 Disease Does patient have nerve No 07/04/25 00:46 stimulator Patient instructed to have device shut off --Does patient have Pacemaker No 07/03/25 23:28 or ICD? When Was Last Pacemaker Check QUESTION #4 FULL TEXT: You/Your Family Experience fever (hyperthermia) with Anesthesia Last Oral Intake Last Oral intake: Last Oral Intake NPO since 00:00 07/03/25 23:28 Meds taken in AM with sips of water? Meds patient instructed to take am of surgery PONV PONV - technology internship: PONV - technology internship Female HX of Motion Sickness HX of N/V After Surgery Non-Smoker Duration of Surgery greater than 60 minutes Number of Risk Factors PONV Score Height & Weight Height & Weight: Anesthesia: Height & Weight Height 6 ft 1 in 07/04/25 00:20 Weight: 58.1 kg 07/04/25 05:45 Body Mass Index (BMI) 16.9 07/04/25 05:45 Respiratory Assessment Respiratory Assessment - technology internship: Respiratory Tract Infection Hx - technology internship Hx Respiratory Tract Infection No 07/04/25 00:46 STOP Sleep Apnea STOP Sleep Apnea - technology internship: STOP Sleep Apnea - technology internship Hx Hypertension Yes 07/04/25 07:08 Hx Sleep Apnea Yes 07/04/25 00:20 CPAP No 07/04/25 00:20 BIPAP No 07/04/25 00:20 Do you snore loudly (louder Yes 07/04/25 00:20 than talking or can be heard Do you often feel tired/ fatigued/ sleepy during daytime? Has anyone observed you stop breathing during sleep? STOP Results Positive 07/04/25 00:20 QUESTION #5 FULL TEXT : Do you snore loudly (louder than talking or can be heard through closeddoors)? 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 Specify any problems Hx of Preganancy in last 3 N/A 07/04/25 00:20 Months Nurse Filling Out Transfusion [id number] 07/04/25 00:20 & Questions: Date: 07/04/25 07/04/25 00:20 Time: 00:34 07/04/25 00:20 Patient unable to answer at this time (ie. 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 INHALATION Q2H PRN PRN Dyspnea, wheezing Amlodipine Besylate 10 mg 07/04/25 22:00 Amlodipine 10 Mg Tablet PO QHS [facility] Protocol Atorvastatin Calcium 80 mg 07/04/25 22:00 Atorvastatin Calcium 80 Mg Tablet PO QHS CAMMIE Budesonide 0.5 mg 07/03/25 23:57 07/04/25 07:34 Budesonide Respules 0.5 Mg/2 Ml Ampul.Neb. INHALATION 0.5 mg BID.RT [facility] Administration Calamine/Phenol 1 applic 07/04/25 10:00 Menthol/Lanolin/Calamine/Znox 113 Gm Tube TOPICAL 4X/DAY [facility] Protocol Calcium Carbonate 1,500 mg 07/04/25 10:00 Calcium (Elemental) 500 Mg Tablet PO DAILY [facility] Cyclobenzaprine HCl 10 mg 07/04/25 07:37 Cyclobenzaprine Hcl 10 Mg Tablet PO TID PRN muscle spasms Gabapentin 300 mg 07/04/25 14:00 Gabapentin 300 Mg Capsule PO TID CAMMIE Glucagon 1 mg 07/03/25 23:57 Glucagon 1 Mg/Ml Syringe IM X1 PRN HYPOGLYCEMIA Protocol Guaifenesin 20 ml 07/03/25 23:57 Guaifenesin 10 Ml Udc (200mg/10ml) PO Q4H PRN PRN COUGH Hydralazine HCl 10 mg 07/03/25 23:57 Hydralazine 20 Mg/Ml Vial IV Q4H PRN PRN SBP > 160 Protocol Tranexamic Acid 1,000 mg/ 110 mls @ 440 mls/hr 07/04/25 10:00 Sodium Chloride IV 07/04/25 10:14 X1 ONE Cefazolin Sodium 2 gm/ Sodium 110 mls @ 200 mls/hr 07/04/25 10:00 Chloride IV 07/04/25 10:32 X1 ONE Sodium Chloride 1,000 mls @ 75 mls/hr 07/03/25 23:57 07/04/25 02:09 IV 07/04/25 13:16 75 mls/hr .[id number] CAMMIE Administration Dextrose 250 mls @ 0 mls/hr 07/03/25 23:57 Dextrose 10%-Water IV .Q0M PRN HYPOGLYCEMIA Protocol As Directed Sodium Chloride 250 mls @ 15 mls/hr 07/04/25 00:53 IV .[id number] PRN Saline Flush Sodium Chloride 250 mls @ 15 mls/hr 07/04/25 00:53 IV .[id number] PRN Additional IVPB Infusion Insulin Human Lispro 0 unit 07/04/25 07:00 07/04/25 06:56 Insulin Lispro 100 Unit/Ml Insuln.Pen SC Not Given ACHS CAMMIE Protocol Magnesium Hydroxide 5 ml 07/04/25 07:37 Magnesium Hydroxide 30 Ml Udc PO DAILY PRN constipation Melatonin 3 mg 07/03/25 23:57 Melatonin 3 Mg Tablet PO QHS PRN PRN INSOMNIA Morphine Sulfate 2 - 4 mg 07/03/25 23:57 07/04/25 06:55 Morphine 4 Mg/Ml Syringe IV 4 mg Q2H PRN PRN Administration Pain Score 4-10 Nicotine mg 07/04/25 10:00 Nicotine 14 Mg Patch TD DAILY CAMMIE Non-Formulary Medication 90 mcg 07/04/25 07:45 Albuterol INHALATION Q4H PRN CAMMIE Non-Formulary Medication 325 mg 07/04/25 07:45 Ferrous Sulfate [Feosol] PO .every other day [facility] Non-Formulary Medication 1 mg 07/04/25 22:00 Ropinirole PO QHS [facility] Non-Formulary Medication 1 drp 07/04/25 22:00 Cyclopentolate LEFT EYE QHS [facility] Non-Formulary Medication 1 drp 07/04/25 10:00 Polyvinyl Alcohol-Povidone OPHTHALMIC 4X/DAY CAM[facility] Non-Formulary Medication 1 drp 07/04/25 07:45 Prednisolone Acetate LEFT EYE Q6H [facility] Ondansetron HCl 4 mg 07/03/25 23:57 Ondansetron 4 Mg/2 Ml Vial IV Q8H PRN PRN NAUSEA/VOMITING Oxycodone HCl 5 - 10 mg 07/03/25 23:57 Oxycodone 5 Mg Tablet PO Q4H PRN PRN Pain Score 4-10 Pantoprazole Sodium 40 mg 07/04/25 10:00 Pantoprazole Sodium 40 Mg Tablet PO DAILY [facility] Polyethylene Glycol 17 gm 07/04/25 10:00 Polyethylene Glycol 3350 17 Gm Packet PO DAILY [facility] Senna/Docusate Sodium 2 tablet 07/04/25 10:00 Senna/Docusate Sodium 1 Tablet PO BID [facility] Sodium Chloride 10 - 40 ml 07/04/25 00:53 0.9% Saline Lock 10 Ml Syringe IV UD PRN SALINE FLUSH PFSH Medical History CKD (chronic kidney disease), stage II Chronic anemia Cancer of right lung Anxiety and depression GERD (gastroesophageal reflux disease) Cirrhosis Former smoker TIA (transient ischemic attack) Kidney stones Neuropathy PTSD (post-traumatic stress disorder) Hepatitis COPD (chronic obstructive pulmonary disease) Hypertension Diabetes Home Medications ?Medication ?Instructions ?Recorded ?Last Taken ?Type gabapentin 300 mg capsule 300 mg PO TID neuropathy 01/0907/02/25 21:00 History amlodipine 5 mg tablet 10 mg PO QHS blood pressure 05/09/21 07/02/25 21:00 History 10 mg aspirin 81 mg tablet,delayed 81 mg PO DAILY heart heal th 05/09/21 07/02/25 History release 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 05/09/21 07/02/25 History mcg-4.5 mcg/actuation aerosol inhaler (Symbicort) cyclobenzaprine 10 mg tablet 10 mg PO TID PRN muscle s pasms 05/09/21 07/02/25 History sildenafil 100 mg tablet 100 mg PO DAILY PRN Erectile 05/09/21 07/02/25 History Dysfunction atorvastatin 80 mg tablet 80 mg PO QHS cholesterol #90 tabs 05/12/21 07/02/25 21:00 Rx insulin aspart U-100 100 unit/mL 10 unit subcut TIDCM DM 12/12/24 07/02/25 History (3 mL) subcutaneous pen (Novolog FlexPen U-100 Insulin aspart) insulin glargine 100 unit/mL (3 10 unit subcut QPM Dm 05/04/25 07/02/25 History mL) subcutaneous pen (Lantus Solostar U-100 Insulin) magnesium hydroxide 400 mg/5 mL 5 ml PO DAILY PRN cons tipation 05/04/25 07/02/25 History oral suspension (Gentle Laxative (magnesium hydroxide)) ropinirole 1 mg tablet 1 mg PO QHS rls 05/04/2507/19 History acetaminophen 325 mg tablet 650 mg PO Q4H PRN pain 09/18 Unknown History albuterol 90 mcg/actuation aerosol 90 mcg inhalation Q 4H PRN sob 07/04/25 Unknown History inhaler calcium carbonate 1,500 mg PO DAILY supplement 07/04/25 07/02/25 History cyclopentolate 2 % eye drops 1 drp LEFT EYE QHS inflam ation 07/04/25 07/02/25 History ferrous sulfate 325 mg (65 mg 325 mg PO .every other d ay 07/04/25 Unknown History iron) tablet (Feosol) supplement lidocaine 5 % topical patch 2 patch topical DAILY PRN pain 07/04/25 Unknown History melatonin 3 mg tablet 3 mg PO QHS sleep 07/04/25 0 07/02/25 History nicotine 14 mg/24 hr daily 1 patch transdermal DAILY s moking 07/04/25 Unknown History transdermal patch (Nicoderm CQ) cessation oxycodone 5 mg tablet 5 mg PO Q6H PRN pain 5 07/02/25 History pantoprazole 40 mg tablet,delayed 40 mg PO DAILY heart burn 07/04/25 07/02/25 History release (Protonix) polyethylene glycol 3350 17 gram 17 g PO DAILY constip ation 07/04/25 07/02/25 History oral powder packet polyvinyl alcohol-povidone 1.4 1 drp ophthalmic (eye) 4X/DAY dry 07/04/25 07/02/25 History %-0.6 % eye drops eye prednisolone acetate 1 % eye 1 drp LEFT EYE Q6H inflam ation 07/04/25 07/02/25 History drops,suspension sennosides 8.6 mg-docusate sodium 2 tab-cap PO DAILY s tool softener 07/04/25 06/25/25 History 50 mg tablet (Senna with Docusate Sodium) tiotropium 2.5 mcg-olodaterol 2.5 2 puff inhalation DA MANDO asthma 07/04/25 07/02/25 History mcg/actuation mist for inhalation Allergy/AdvReac Type Severity Reaction Status Date / Time No Known Allergies Allergy Verified 05/11/25 14:05 Family History Mother CVA (cerebral vascular accident) Family History other Surgical History Hx of appendectomy Social History household members: none housing: apartment Smoking Status: Current some day smoker tobacco type: cigarettes and cigars alcohol intake: never substance use type: does not use Review of Systems (Anesthesia) ROS Narrative System reviewed and no additional complaints, except as documented. 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 Subjective Subjective Patient is a 75-year-old gentleman who experienced for with resultant right hip pain.Imaging studies obtained on admission did show Fracture of the right greater trochanter, extending into the intertrochanteric line. Admitted to regular nursing floor with consultation placed orthopedic surgeon Objective Data Objective Data Vital Signs: Vital Signs Temp Pulse Resp BP Pulse Ox O2 Del Method 99 F 108 H 18 149/88 H 94 Room Air 07/04/25 06:55 07/04/25 06:55 07/04/25 06:55 07/04/25 06:55 07/04/25 06:55 07/04/25 06:55 Oxygen Delivery Method Room Air Weight: 58.1 kg Body Mass Index (BMI) 16.9 Intake & Output: Intake and Output for Last 24 Hours 07/02/25 07/03/25 07/04/25 23:59 23:59 23:59 Intake Total 1000 / 1000 Output Total 1000 / 1000 Balance 0 / 0 Lab / Micro Data 07/04/25 05:27 07/04/25 05:27 Labs: Laboratory Results - last 24 hr 07/03/25 21:43: Urine Color Yellow, Urine Clarity Clear, Urine pH 6.0, Ur Specific [place] 1.010, Urine Protein 100 H, Urine Glucose (UA) 100 H, Urine Ketones Negative, Urine Occult Blood 10 H, UrineNitrite Negative, Urine Bilirubin Negative, Urine Urobilinogen Normal, Ur Leukocyte Esterase Negative, Urine RBC 0-5 SEEN, Urine WBC 0-5 SEEN, Ur Squamous Epith Cells 0-5 SEEN, Urine Bacteria RARE, Hyaline Casts 0-5 SEEN, Urine Mucus 0 SEEN 07/03/25 21:46: WBC 12.7 H, RBC 3.95 L, Hgb 8.4 L, Hct 27.9 L, MCV 70.6 L, MCH 21.3 L, MCHC 30.1 L,RDW Std Deviation 56.9 H, RDW Coeff of Tiffany 22.6 H, Plt Count 300, MPV 9.1, Immature Gran % (Auto) 0.500, Neut % (Auto) 90.1 H, Lymph % (Auto) 6.3 L, [place] % (Auto) 2.8, Eos % (Auto) 0.1, Baso % (Auto)0.2, Absolute Neuts (auto) 11.4 H, Absolute Lymphs (auto) 0.80 L, Nucleated RBC % 0, Differential Comment SCANNED, RBC Morphology RARE, Hypochromasia 1+, Anisocytosis 1+, Microcytosis 1+, Marshall Cells RARE, PT 15.5 H, INR 1.2, APTT 22.7L, Sodium 133, Potassium 4.8, Chloride 100, Carbon Dioxide 20.2 L, Anion Gap 13,BUN 14, Creatinine 0.86, Estim Creat Clear Calc 66.03, Est GFR (MDRD) Non-Af 89,BUN/Creatinine Ratio 16.8, Glucose 204 H, Calcium 9.7, Phosphorus 2.5 L, Magnesium 1.9, NT pro BNP II 372 07/04/25 01:05: POC Glucose 193 H 07/04/25 05:27: WBC 12.7 H, RBC 3.69 L, Hgb 7.7 L, Hct 25.5 L, MCV 69.1 L, MCH 20.9 L, MCHC 30.2 L,RDW Std Deviation 55.5 H, RDW Coeff of Tiffany 22.7 H, Plt Count 301, MPV 9.5, Immature Gran % (Auto) 0.400, Neut % (Auto) 84.5 H, Lymph % (Auto) 10.7 L, [place] % (Auto) 4.1, Eos % (Auto) 0.2, Baso % (Auto) 0.1, Absolute Neuts (auto) 10.7 H, Absolute Lymphs (auto) 1.35, Nucleated RBC % 0, Sodium 134,Potassium 4.2, Chloride 103, Carbon Dioxide 19.6 L, Anion Gap 12, BUN 13, Creatinine 0.78, Estim Creat Clear Calc 63.55, Est GFR (MDRD) Non-Af 92, BUN/Creatinine Ratio 16.4, Glucose 174 H, Calcium 9.2, Iron 17 L, TIBC 163 L, Iron Saturation 10.4, Unsaturated IBC 146 L, Ferritin 640 H, Total Bilirubin 0.4 5, AST 18, ALT 9, Alkaline Phosphatase 124, Total Protein 8.9 H, Albumin 3.1 L, Globulin 5.8 H, Albumin/Globulin Ratio 0.5 L, Blood Type Cancelled, Antibody Screen Cancelled Radiography Diagnostic Testing: Radiology Impression Hip/Pelvis X-Ray 07/03/25 20:20 IMPRESSION: Fracture of the right greater trochanter, extending into the intertrochanteric line. Malignancy cannot be excluded. Reading Location: [facility] Lower Extremity CT 07/03/25 21:54 IMPRESSION: Acute, moderately comminuted and impacted right intertrochanteric femoral fracture. No aggressive osseous lesions. Reading Location: [facility] Physical Exam Narrative GENERAL: cooperative but frail looking HEENT: Atraumatic; normocephalic EYES; Anicteric, Normal Conjunctiva NECK; supple, normal thyroid, RESPIRATORY: Diminished to auscultation CARDIOVASCULAR: Regular S1 S2, GI: soft, normoactive bowel sounds, : Epperson catheter in place with hematuria; EXTREMITIES: No edema, no clubbing, MUSCULOSKELETAL: Right lower extremity externally rotate NEURO: Awake; no lateralizing signs. SKIN: No Rash PSYCH; Flat affect Assessment & Plan Assessment/Plan (1) Closed intertrochanteric fracture of right hip: (2) Fall: PLAN: Plan Patient is a 75-year-old gentleman who experienced for with resultant right hip pain.Imaging studies obtained on admission did show Fracture of the right greater trochanter, extending into the intertrochanteric line. Admitted to regular nursing floor with consultation placed orthopedic surgeon 1. Fall with right hip fracture .Imaging studies obtained on admission did show Fracture of the right greater trochanter, extendinginto the intertrochanteric line. Admitted to regular nursing floor treatment initiated with with immobilization, pain management consultation placed to orthopedic surgery. Decision regarding surgical intervention deferred to orthopedic surgery. - Patient perioperative Risk assessment as documented by admitting physician 2. Physical deconditioning/debility secondary to above ? Requested for PT OT eval and manager social services to assist with discharge planning 3. Right sided lung cancer (suprahilar, unclear exact specific type) with associated hypercalcemia of malignancy with recent transition to OR system. Patient to resume care following discharge 4. Hematuria ? Apparently traumatic following Epperson catheter insertion plan is to initiate CBI if hematuria doesnot resolve 5. Anemia ? Secondary to chronic disorder/anemia of malignancy. Patient was typed and crossmatched for 2 unitPRBC, subsequently monitoring H&H and transfuse if patient becomes symptomatic or hemoglobin falls below 7 6. Diabetes mellitus type II -patient's oral hypoglycemics held. Placed on long acting insulin, Accu-Cheks a.c. and at bedtime and covered with sliding scale insulin 7. Tobacco dependence ? Counseled on cessation, offered nicotine patch for tobacco cravings 8. GERD ? On PPI 9. COPD ? Not in exacerbation aerosol treatments as needed 10. Dyslipidemia ? Patient is on atorvastatin did continue home dose 11. 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 Restless leg syndrome ? Patient is on ropinirole we will continue 13. Severe protein calorie malnutrition ? Evidenced by reduced BMI muscle wasting and decreased oral intake. Consult placed to dietitian Time spent in the patient's overall evaluation,decision-making process, review of diagnostic data, adjustment of management, discussion with other providers, nursing nursing and ancillary staff involved in patient's care documentation, 50 Minutes Charges/Coding Visit Charges Inpatient E&M: 23209 [facility] 07/04/25 0737 Cosigner Signature (if applicable): CC: ~ Signed [facility]08-10-2025 Discharge summary Author Steven Tejeda [facility] Note Date/Time July 04, 2025 1: 09am [facility] Medical Records Department [address] [place] [address] Emergency Department Summary 07/03/25 MR#: [id number] Acct: [id number] Name: ITZEL ALONZO Rep #:[id number] : 1950 75 From: Steven Higgins PCP: LUIS MIGUEL HaroC Status:ADM IN Location: [place] [id number] HPI History of Present Illness HPI Narrative: Patient presents with right hip pain that began after a fall. Patient fell ontohis right hip. Patient states the pain is worse with any movement. Patient describes the pain as sharp. Patient states he was unable to stand or ambulate after the fall. Patient denies any paresthesias or weakness. Patient denies any head injury or loss of consciousness. Patient denies any other injuries. Chief Complaint: Lower Extremity Injury Informant: patient Onset/Context/Timing Onset: Today Context: Sudden Onset Timing: Continuous Quality of Pain: Sharp Location: Right hip Worsened by: Movement Relieved by: Nothing Associated Symptoms Associated Symptoms: Negative for Parasthesia, Weakness or Loss of Funtion [facility] Medical History (Updated 07/03/25 @ 23:[address] Johanne Evans MD) CKD (chronic kidney disease), stage II Chronic anemia Cancer of right lung Anxiety and depression GERD (gastroesophageal reflux disease) Cirrhosis Former smoker TIA (transient ischemic attack) Kidney stones Neuropathy PTSD (post-traumatic stress disorder) Hepatitis COPD (chronic obstructive pulmonary disease) Hypertension Diabetes Home Medications ?Medication ?Instructions ?Recorded ?Last Taken ?Type gabapentin 300 mg capsule 300 mg PO TID neuropathy 01/09 Unknown History amlodipine 5 mg tablet 5 mg PO QHS blood pressure 0 05/09/21 Unknown History aspirin 81 mg tablet,delayed 81 mg PO DAILY heart heal th 05/09/21 Unknown History release 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 Johanne Evans MD) household members: none housing: apartment Smoking Status: Current some day smoker tobacco type: cigarettes and cigars alcohol intake: never substance use type: does not use ROS ROS ED Constitutional Constitutional ED: Denies chills or fever(s) Eyes Eyes: Denies blurry vision or change in vision ENT ENT ED: Denies rhinorrhea or sore throat Cardiovascular Cardiovascular: Denies chest pain or palpitations Respiratory/Chest Respiratory/Chest: Reports cough; Denies dyspnea Gastrointestinal Gastrointestinal: Denies nausea or vomiting Genitourinary Genitourinary ED: Denies dysuria or hematuria Musculoskeletal Musculoskeletal: Reports back pain; Denies neck pain Integumentary Denies abscess or rash Neurologic Neurologic: Denies headache(s) or weakness Allergic/Immunologic Allergic/Immunologic ED: Denies mouth swelling or urticaria EXAM Physical Exam Const Vital Signs: 07/03/25 19:10 07/03/25 21:09 Temperature 98.7 F Temperature Source Oral Pulse Rate 113 H 116 H Respiratory Rate 18 20 H Blood Pressure 185/93 H 160/98 H Blood Pressure Mean 123 118 Pulse Ox 95 93 Oxygen Delivery Method Room Air Room Air Positive well nourished and well developed Constitutional Narrative: BMI is 18.9. General Appearance ED: well developed and NAD HEENT Reports moist mucous membranes Resp normal respiratory effort and clear to auscultation bilaterally Cardio regular rhythm Rate: tachycardic GI non-tender Palpation: soft Extremity Extremity Narrative: There is shortening sternal rotation of the right lower extremity. There is tenderness to palpation over the right hip. There is limited range of motion ofthe right hip especially with internal and external rotation. There is pain with logrolling of the right lower extremity. Pedal pulses are equal bilaterally. Sensation was intact to light touch bilaterally in the lower extremities. Strength is 5/5 bilaterally in the lower extremities. Neuro oriented x3, CN's II-XII intact bilaterally, moves all extremities and no sensory deficits noted Sensorium / Orientation: alert Motor Exam: strength 5/5 throughout Psych mental status grossly normal MDM MDM MDM Narrative Medical decision making narrative: Differential diagnosis includes hip fracture, contusion, sprain, and lumbosacralstrain. X-rays of the right hip will be obtained to assess for fracture. History & Record Review Additional record(s) reviewed:: Prior inpatient record, Prior ED visit and Priorlabs Lab Data Attestation: I reviewed the patient's lab results. Lab results narrative: CBC was reviewed. There is a mild leukocytosis of 12.7. There is a mild anemiawith a hemoglobin of 8.4 and hematocrit 27.9. Platelets were normal. PT with INR and PTT were reviewed. Pro time was 15.5 and INR is 1.2. PTT was 22.7. Basic metabolic profile was reviewed. Glucose was mildly elevated at 204. The remainder is within normal limits. Urinalysis was reviewed. There is no evidence of urinary tract infection or hematuria. Labs: Laboratory Results - last 24 hr 07/03/25 07/03/25 21:43 21:46 WBC 12.7 H RBC 3.95 L Hgb 8.4 L Hct 27.9 L MCV 70.6 L MCH 21.3 L MCHC 30.1 L RDW Std Deviation 56.9 H RDW Coeff of Tiffany 22.6 H Plt Count 300 MPV 9.1 Immature Gran % (Auto) 0.500 Neut % (Auto) 90.1 H Lymph % (Auto) 6.3 L [place] % (Auto) 2.8 Eos % (Auto) 0.1 Baso % (Auto) 0.2 Absolute Neuts (auto) 11.4 H Absolute Lymphs (auto) 0.80 L Nucleated RBC % 0 Differential Comment SCANNED RBC Morphology RARE Hypochromasia 1+ Anisocytosis 1+ Microcytosis 1+ Allyson Cells RARE PT 15.5 H INR 1.2 APTT 22.7 L Sodium 133 Potassium 4.8 Chloride 100 Carbon Dioxide 20.2 L Anion Gap 13 BUN 14 Creatinine 0.86 Estim Creat Clear Calc 66.03 Est GFR (MDRD) Non-Af 89 BUN/Creatinine Ratio 16.8 Glucose 204 H Calcium 9.7 Phosphorus 2.5 L Magnesium 1.9 NT pro BNP II 372 Urine Color Yellow Urine Clarity Clear Urine pH 6.0 Ur Specific [place] 1.010 Urine Protein 100 H Urine Glucose (UA) 100 H Urine Ketones Negative Urine Occult Blood 10 H Urine Nitrite Negative Urine Bilirubin Negative Urine Urobilinogen Normal Ur Leukocyte Esterase Negative Urine RBC 0-5 SEEN Urine WBC 0-5 SEEN Ur Squamous Epith Cells 0-5 SEEN Urine Bacteria RARE Hyaline Casts 0-5 SEEN Urine Mucus 0 SEEN Radiography Diagnostic Testing: Clinical Impression(s) from Imaging Studies Hip/Pelvis X-Ray 07/03/25 20:20 IMPRESSION: Fracture of the right greater trochanter, extending into the intertrochanteric line. Malignancy can not be excluded. Reading Location: [facility] Lower Extremity CT 07/03/25 21:54 IMPRESSION: Acute, moderately comminuted and impacted right intertrochanteric femoral fracture. No aggressive osseous lesions. Reading Location: [facility] X-rays of the right hip were obtained. There are 3 views. On my independent interpretation, there is an intertrochanteric fracture of the right hip. There is some mild displacement. Radiologist also interpreted the x-ray and agrees. CT scan of the right hip was obtained. There is comminuted and impacted right intertrochanteric fracture. There is no aggressive osseous lesion noted. This was interpreted by the radiologist and was also independently reviewed by myself. EKG Initial EKG: Attestation: I personally reviewed and interpreted this EKG as follows: Interpretation: Sinus Tachycardia (112) and Non-Specific ST Changes Comments: EKG was obtained. On my independent interpretation, shows sinustachycardia with a rate of 112. NE interval was normal at 158 ms. QRS intervalwas normal at 76 ms. QTc interval is normal at 455 ms. [place] was normal. Thereare nonspecific ST-T wave changes noted. There are no acute abnormalities noted. Prior EKG tracings: available for review Prior: Unchanged (05/11/2025) Management Discussion w/another healthcare provider: Hospitalist and Data Management Manager Treatment and Re-Evaluation Narrative: Patient was given IV fluids and morphine. Because of the hip fracture, medical screening labs will be obtained. EKG was obtained to assess for cardiac dysrhythmia and cardiac ischemia. CBC was obtained to assess for leukocytosis and anemia. Basic metabolic profile was obtained to assess for electrolyte abnormality and renal function. PT with INR and PTT were obtained to assess forcoagulopathy. Urinalysis was obtained to assess for urinary tract infection or hematuria. Patient was advised of his findings. Case was discussed with Dr. Campbell from orthopedics. He will see the patient in consultation. Case will bediscussed with the hospitalist for admission. Due to the x-ray report of a questionable malignancy cannot be excluded, Dr. Campbell requested CT scan of the hip be obtained to check for malignancy. This was ordered. There is no evidence of malignancy. Patient will be admitted here. Patient and family understand and are agreeable with the plan. All questions were answered. Discharge Plan Dx/Rx/DC Orders Clinical Impression: Closed intertrochanteric fracture of right hip, Cancer of right lung, Fall Disposition Disposition: Acute Care Hospital [facility] Discharge Date/Time: 07/03/25 23:37 What to do if you have Problems For any increased pain, shortness of breath, bleeding, nausea or vomiting, chestpain, or any unexpected problems, contact your Primary Care Provider. Call [facility] ([phone]) or report to the closest Emergency Room. Call 911 if necessary. 07/04/25 010 <Electronically signed by Steven Tejeda DO> Cosigner Signature (if applicable): CC: SID Haji ~ Signed [facility] Work Phone: [phone] 979-980408-10-2025 History and physical note Author Johanne Evans [facility] Note Date/Time July 03, 2025 11: 21pm [facility] Medical Records Department [address] [place] [address] H&P Exam - Hospitalist 07/03/252236 MR#: [id number] Acct: [id number] Name: ITZEL ALONZO Rep #:[id number] : 1950 75 From: Johanne Evans MD PCP: SID Haro Status:ADM IN [id number] HPI - General General Date of Admission: 07/03/25 Date of Service: 07/03/25 Chief Complaint: Fall, R hip pain. HPI Narrative The patient is a 75 y/o M w/ PMHx: CKD stage II per GFR trending, RLS, Cirrhosisassociated with hepatitis unclear specific type, Diabetes mellitus type II with chronic neuropathy, Anxiety and Depression, GERD, Hx CVA, Chronic anemia, Formertobacco use, COPD, [facility]25 following largeright-sided lung cancer wit suspected postobstructive pneumonia with acute metabolic encephalopathy suspected secondary to hypercalcemia of malignancy in addition to acute on chronic anemia with suspected upper GI bleed for further evaluation who now presents to the [facility] ED on 07/03/2025 with onset of right hip discomfort reportedly following a fall onto the right hip with pain worse with any movement described as sharp, stabbing with inability to ambulate or stand/bear weight with no associated paresthesias nor any head trauma or loss of consciousness but given ongoing pain prompted ED evaluation. Prior to ED arrival patient reported pain 10 out of 10 to the righthip and upon hospitalist evaluation following ED intervention reported pain decreased to 6-7 out of 10 in severity. Workup in the ED included T98.7, heart rate 113, BP 185/93, respiratory rate 18, 95% on room air, plain film of the right hip and pelvis with a fracture the right greater trochanter extending intothe intertrochanteric line with malignancy unable to be excluded, CT right hip and pelvis with acute moderately commuted and impacted right intertrochanteric femoral fracture with no aggressive osseous lesions identified, CBC with WBC 12.7, hemoglobin 8.4, MCV 70.6, platelet 300 with left shift and lymphopenia, coags with PT 15.5, INR 1.2, PTT 22.7, BMP carbon dioxide 20.2, BUN/creatinine 14/0.86, GFR 89, glucose 204, urinalysis unremarkable, EKG with ST with nonspecific ST-T changes with no acute evidence of ischemia. In the ED patientministered 1 L normal saline, morphine 4 mg IV x 1. ED discussed case with orthopedic surgeon Dr. Campbell who recommended CT and if there is no evidence of acute osseous lesion would plan to admit to [facility] and evaluate for repair of hip fracture. [facility] Medical History (Updated 07/03/25 @ 23:[address] Johanne Evans MD) CKD (chronic kidney disease), stage II Chronic anemia Cancer of right lung Anxiety and depression GERD (gastroesophageal reflux disease) Cirrhosis Former smoker TIA (transient ischemic attack) Kidney stones Neuropathy PTSD (post-traumatic stress disorder) Hepatitis COPD (chronic obstructive pulmonary disease) Hypertension Diabetes Home Medications ?Medication ?Instructions ?Recorded ?Last Taken ?Type gabapentin 300 mg capsule 300 mg PO TID neuropathy 01/09 Unknown History amlodipine 5 mg tablet 5 mg PO QHS blood pressure 0 05/09/21 Unknown History aspirin 81 mg tablet,delayed 81 mg PO DAILY heart heal th 05/09/21 Unknown History release 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 Jhoanne Evans MD) household members: none housing: apartment Smoking Status: Current some day smoker tobacco type: cigarettes and cigars alcohol intake: never substance use type: does not use ROS ROS Narrative Admission Review of Systems: CONSTITUTIONAL: No weight loss, fever, chills, + weakness or fatigue. HEENT: Eyes: No visual loss, blurred vision, double vision or yellow sclerae. Ears, Nose, Throat: No hearing loss, sneezing, congestion, runny nose or sore throat. SKIN: No rash or itching, lesions, wounds except + occasional abrasion. CARDIOVASCULAR: No chest pain, chest pressure or chest discomfort, palpitations,edema, orthopnea, syncopal events. RESPIRATORY: + Chronic cough. No marked dyspnea or productive sputum sputum, wheezing, hemoptysis. GASTROINTESTINAL: No anorexia, nausea, vomiting or diarrhea, abdominal pain, melena, BRBPR. GENITOURINARY: No dysuria, frequency, urgency or retention. NEUROLOGICAL: No headache, dizziness, syncope, paralysis, ataxia, numbness or tingling in the extremities, focal weakness, change in bowel or bladder control,seizure. MUSCULOSKELETAL: + muscle, back pain, joint pain or stiffness. HEMATOLOGIC: + Chronic anemia, no marked history of easy bleeding/bruising. LYMPHATICS: No enlarged nodes. No history of splenectomy. PSYCHIATRIC: + History of anxiety and depression. ENDOCRINOLOGIC: No reports of sweating, cold or heat intolerance. No polyuria orpolydipsia. ALLERGIES: No history of asthma, hives, eczema or rhinitis. Vital Signs Vital Signs Vital Signs: 07/03/25 19:10 07/03/25 21:09 Temperature 98.7 F Temperature Source Oral Pulse Rate 113 H 116 H Respiratory Rate 18 20 H Blood Pressure 185/93 H 160/98 H Blood Pressure Mean 123 118 Pulse Ox 95 93 Oxygen Delivery Method Room Air Room Air Weight Weight: 143 lb 1.28 oz Body Mass Index (BMI) 18.8 Physical Exam Narrative Physical Examination: General: Awake, alert, oriented x 3 and cooperative, laying in the ED bed, ratesright hip discomfort 7 out of 10 in severity Skin: Normal color, normal turgor, no icterus, no cyanosis except occasional abrasion. HEENT: AT/NC, EOMI, PERRLA, mildly dry MM, missing several teeth, no carotid bruits or JVD noted. Lungs: Diminished, greater bases, appropriate effort, no appreciated rales, ronchi or wheezing. Heart: Mildly tachycardic with regular rhythm; no gallop, rub audible. Abdomen: Soft, thin habitus, NTTP, ND, mildly hyperactive BS, + HM. Extremities: No cyanosis, no clubbing, no significant distal edema, distal pulses intact, status post fall with right hip fracture. Neurological: Patient awake, alert, oriented as noted, cognitive function intact; pupils equally reactive to light and accommodation, cranial nerves grossly normal, moving all 4 extremities except expected limitation given fall with right hip fracture, strength severely globally decreased Psychiatric: Affect appears fatigued, uncomfortable, flat, no acute evidence of depressive or anxiety feelings but does have underlying psychiatric history. Results Lab / Micro Data 07/03/25 21:46 07/03/25 21:46 Labs: Laboratory Results - last 24 hr 07/03/25 21:43: Urine Color Yellow, Urine Clarity Clear, Urine pH 6.0, Ur Specific [place] 1.010, Urine Protein 100 H, Urine Glucose (UA) 100 H, Urine Ketones Negative, Urine Occult Blood 10 H, Urine Nitrite Negative, Urine Bilirubin Negative, Urine Urobilinogen Normal, Ur Leukocyte Esterase Negative, Urine RBC 0-5 SEEN, Urine WBC 0-5 SEEN, Ur Squamous Epith Cells 0-5 SEEN, Urine Bacteria RARE, Hyaline Casts 0-5 SEEN, Urine Mucus 0 SEEN 07/03/25 21:46: WBC 12.7 H, RBC 3.95 L, Hgb 8.4 L, Hct 27.9 L, MCV 70.6 L, MCH 21.3 L, MCHC 30.1 L, RDW Std Deviation 56.9 H, RDW Coeff of Tiffany 22.6 H, Plt Count 300, MPV 9.1, Immature Gran % (Auto) 0.500, Neut % (Auto) 90.1 H, Lymph % (Auto) 6.3 L, [place] % (Auto) 2.8, Eos % (Auto) 0.1, Baso % (Auto) 0.2, Absolute Neuts (auto) 11.4 H, Absolute Lymphs (auto) 0.80 L, Nucleated RBC % 0, PT 15.5 H, INR 1.2, APTT 22.7 L Imaging Radiology Impression Hip/Pelvis X-Ray 07/03/25 20:20 IMPRESSION: Fracture of the right greater trochanter, extending into the intertrochanteric line. Malignancy can not be excluded. Reading Location: [facility] Lower Extremity CT 07/03/25 21:54 IMPRESSION: Acute, moderately comminuted and impacted right intertrochanteric femoral fracture. No aggressive osseous lesions. Reading Location: [facility] Assessment & Plan Assessment/Plan (1) Closed intertrochanteric fracture of right hip: (2) Fall: PLAN: Plan The patient is a 75 y/o M w/ PMHx: CKD stage II per GFR trending, RLS, Cirrhosisassociated with hepatitis unclear specific type, Diabetes mellitus type II with chronic neuropathy, Anxiety and Depression, GERD, Hx CVA, Chronic anemia, Formertobacco use, COPD, recent transfer to the OR from [facility] on 05/13/25 following largeright-sided lung cancer wit suspected postobstructive pneumonia with acute metabolic encephalopathy suspected secondary to hypercalcemia of malignancy in addition to acute on chronic anemia with suspected upper GI bleed for further evaluation who now presents to the [facility] ED on 07/03/2025 with onset of right hip discomfort reportedly following a fall onto the right hip with pain worse with any movement described as sharp, stabbing with inability to ambulate or stand/bear weight with no associated paresthesias nor any head trauma or loss of consciousness but given ongoing pain prompted ED evaluation. #1. General debility, right hip pain s/p mechanical fall w/ fracture of the right greater trochanter extending into the intertrochanteric line: Orthopedic surgery consulted from ED. CT right hip and pelvis obtained additionally with noted with acute moderately commuted and impacted right intertrochanteric femoral fracture with no aggressive osseous lesions identified Will admit to [facility], maintain NPO, judiciously administer IVFs, epperson placement, monitor I/Os, frequent positioning, fall precautions, T+S requested, as needed pain, anti-emetic regimen. PT/OT following operative intervention. CM consulted for discharge planning. Per NSQIP patient with at least moderate risk likely more so elevated above thisgiven his underlying significant comorbidities and active cancer with ongoing chemotherapy. EKG with ST with nonspecific ST-T changes with no acute evidenceof ischemia. Most recent echocardiogram noted 05/11/2021 with EF 60%, normal diastole for age, moderate focal AV calcification. Will obtain BMP and if this is elevated low threshold to obtain repeat echo and request cardiology preoperative evaluation. #2. Right sided lung cancer (suprahilar, unclear exact specific type) with associated hypercalcemia of malignancy with [facility] evaluation: Following with OR oncology, from discussion with patient and significant difficulty with transportation and receiving chemotherapy, setting up visits, magnesium and phosphorus levels requested, encouraged [facility] as [facility]. #3. Chronic microcytic anemia, recent GI bleed presentation: Admission hemoglobin 8.4, MCV 70.6, baseline hemoglobin more recently 7-8, has trended down since 2023, from current list does not appear to be on iron supplementation, will obtain iron panel, ferritin, trend CBC. Pending results may be appropriate for course of IV iron transition to oral regimen. #4. Hx CVA: Patient with previous acute right posterior parietal lobe infarct with associated 50 to 69% narrowing of the left internal carotid artery at that time, will continue aspirin, statin, hypertensive regimen, diabetic regimen withadjustments as able. #5. Chronic Kidney Disease Stage II per GFR trend: Admission BUN/Cr 14/0.86, GFR 89, baseline renal function 0.9-1.2 primarily, repeat BMP in AM. #6. Diabetes mellitus type II with chronic neuropathy: Hold oral home regimen, continue home insulin regimen, ADA diet until NPO status, accu checks w/ ISS, continue home gabapentin regimen. #7. 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 #8. Anxiety and depression: Per current list does not appear to be on regimen, encourage continued follow-up outpatient for further evaluation. #9. Hypertension: Continue home regimen including amlodipine, PRN hydralazine. #10. Hyperlipidemia: Will continuation of statin therapy. #11. Chronic COPD: Will temporally hold home inhaler and in the interim maintain on ATC budesonide therapy, PRN albuterol, HOB, IS parameters. #12. GERD: Per current list on a regimen, will have as needed Mylanta regimen. #13. Tobacco Abuse: Patient notes that he occasionally still has a cigarette but not all the time and not daily, encouraged cessation, inpatient consultationper RT, NR if desired. #14. Restless leg syndrome: Will continue patient on Requip regimen. #15. Severe protein calorie malnutrition: BMI reduced, obvious muscle and fat loss, significant underlying morbidities including active cancer on chemotherapy, mag and Phos requested, nutrition consulted for recommendations. #16. DVT prophylaxis: SCDs given pending orthopedic surgery evaluation for operative intervention. #17. CODE status: Patient HCPOA and living will are not in place but he notes his daughter will be his medical decision-maker if necessary. Discussed CODE status at length including difference between FULL code, DNR-CCA and DNR-CC status. Following discussions about the differences in these status, requested Full Code status. Did frankly discuss patient underlying health history, comorbidities and prognosis if cardiopulmonary event should arise any understands that the likelihood of a good outcome would be low. Advanced Care Planning Face to Face Time: 16 minutes. Charges/Coding Visit Charges Inpatient E&M: 36499 Init Hosp L3 Procedures Hospitalists Procedures: 99429 Advncd Care Plan 30 Min 07/03/25 2321 <Electronically signed by Johanne Evans MD> Cosigner Signature (if applicable): CC: SID Haji; Dr. Johanne Evans MD~ Signed [facility] Work Phone: [phone] Discharge summary [facility] Medical Records Department [address] [place] [address] Emergency Department Summary 07/03/25 MR#: [id number] Acct: [id number] Name: ITZEL ALONZO Rep #:[id number] : 1950 75 From: Steven Higgins PCP: SID Haro Status:ADM IN Location: MS3 EM608-0 HPI History of Present Illness HPI Narrative: Patient presents with right hip pain that began after a fall. Patient fell ontohis right hip. Patient states the pain is worse with any movement. Patient describes the pain as sharp. Patient states he was unable to stand or ambulate after the fall. Patient denies any paresthesias or weakness. Patient denies any head injury or loss of consciousness. Patient denies any other injuries. Chief Complaint: Lower Extremity Injury Informant: patient Onset/Context/Timing Onset: Today Context: Sudden Onset Timing: Continuous Quality of Pain: Sharp Location: Right hip Worsened by: Movement Relieved by: Nothing Associated Symptoms Associated Symptoms: Negative for Parasthesia, Weakness or Loss of Funtion [facility] Medical History (Updated 07/03/25 @ 23:[address] Johanne Evans MD) CKD (chronic kidney disease), stage II Chronic anemia Cancer of right lung Anxiety and depression GERD (gastroesophageal reflux disease) Cirrhosis Former smoker TIA (transient ischemic attack) Kidney stones Neuropathy PTSD (post-traumatic stress disorder) Hepatitis COPD (chronic obstructive pulmonary disease) Hypertension Diabetes Home Medications ?Medication ?Instructions ?Recorded ?Last Taken ?Type gabapentin 300 mg capsule 300 mg PO TID neuropathy 01/09 Unknown History amlodipine 5 mg tablet 5 mg PO QHS blood pressure 0 05/09/21 Unknown History aspirin 81 mg tablet,delayed 81 mg PO DAILY heart heal th 05/09/21 Unknown History release 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 Johanne Evans MD) household members: none housing: apartment Smoking Status: Current some day smoker tobacco type: cigarettes and cigars alcohol intake: never substance use type: does not use ROS ROS ED Constitutional Constitutional ED: Denies chills or fever(s) Eyes Eyes: Denies blurry vision or change in vision ENT ENT ED: Denies rhinorrhea or sore throat Cardiovascular Cardiovascular: Denies chest pain or palpitations Respiratory/Chest Respiratory/Chest: Reports cough; Denies dyspnea Gastrointestinal Gastrointestinal: Denies nausea or vomiting Genitourinary Genitourinary ED: Denies dysuria or hematuria Musculoskeletal Musculoskeletal: Reports back pain; Denies neck pain Integumentary Denies abscess or rash Neurologic Neurologic: Denies headache(s) or weakness Allergic/Immunologic Allergic/Immunologic ED: Denies mouth swelling or urticaria EXAM Physical Exam Const Vital Signs: 07/03/25 19:10 07/03/25 21:09 Temperature 98.7 F Temperature Source Oral Pulse Rate 113 H 116 H Respiratory Rate 18 20 H Blood Pressure 185/93 H 160/98 H Blood Pressure Mean 123 118 Pulse Ox 95 93 Oxygen Delivery Method Room Air Room Air Positive well nourished and well developed Constitutional Narrative: BMI is 18.9. General Appearance ED: well developed and NAD HEENT Reports moist mucous membranes Resp normal respiratory effort and clear to auscultation bilaterally Cardio regular rhythm Rate: tachycardic GI non-tender Palpation: soft Extremity Extremity Narrative: There is shortening sternal rotation of the right lower extremity. There is tenderness to palpationover the right hip. There is limited range of motion ofthe right hip especially with internal and external rotation. There is pain with logrolling of the right lower extremity. Pedal pulses are equalbilaterally. Sensation was intact to light touch bilaterally in the lower extremities. Strength is 5/5 bilaterally in the lower extremities. Neuro oriented x3, CN's II-XII intact bilaterally, moves all extremities and no sensory deficits noted Sensorium / Orientation: alert Motor Exam: strength 5/5 throughout Psych mental status grossly normal MDM MDM MDM Narrative Medical decision making narrative: Differential diagnosis includes hip fracture, contusion, sprain, and lumbosacralstrain. X-rays of the right hip will be obtained to assess for fracture. History & Record Review Additional record(s) reviewed:: Prior inpatient record, Prior ED visit and Priorlabs Lab Data Attestation: I reviewed the patient's lab results. Lab results narrative: CBC was reviewed. There is a mild leukocytosis of 12.7. There is a mild anemiawith a hemoglobin of 8.4 and hematocrit 27.9. Platelets were normal. PT with INR and PTT were reviewed. Pro time was 15.5and INR is 1.2. PTT was 22.7. Basic metabolic profile was reviewed. Glucose was mildly elevated at 204. The remainder is within normal limits. Urinalysis was reviewed. There is no evidence of urinarytract infection or hematuria. Labs: Laboratory Results - last 24 hr 07/03/25 07/03/25 21:43 21:46 WBC 12.7 H RBC 3.95 L Hgb 8.4 L Hct 27.9 L MCV 70.6 L MCH 21.3 L MCHC 30.1 L RDW Std Deviation 56.9 H RDW Coeff of Tiffany 22.6 H Plt Count 300 MPV 9.1 Immature Gran % (Auto) 0.500 Neut % (Auto) 90.1 H Lymph % (Auto) 6.3 L [place] % (Auto) 2.8 Eos % (Auto) 0.1 Baso % (Auto) 0.2 Absolute Neuts (auto) 11.4 H Absolute Lymphs (auto) 0.80 L Nucleated RBC % 0 Differential Comment SCANNED RBC Morphology RARE Hypochromasia 1+ Anisocytosis 1+ Microcytosis 1+ Marshall Cells RARE PT 15.5 H INR 1.2 APTT 22.7 L Sodium 133 Potassium 4.8 Chloride 100 Carbon Dioxide 20.2 L Anion Gap 13 BUN 14 Creatinine 0.86 Estim Creat Clear Calc 66.03 Est GFR (MDRD) Non-Af 89 BUN/Creatinine Ratio 16.8 Glucose 204 H Calcium 9.7 Phosphorus 2.5 L Magnesium 1.9 NT pro BNP II 372 Urine Color Yellow Urine Clarity Clear Urine pH 6.0 Ur Specific [place] 1.010 Urine Protein 100 H Urine Glucose (UA) 100 H Urine Ketones Negative Urine Occult Blood 10 H Urine Nitrite Negative Urine Bilirubin Negative Urine Urobilinogen Normal Ur Leukocyte Esterase Negative Urine RBC 0-5 SEEN Urine WBC 0-5 SEEN Ur Squamous Epith Cells 0-5 SEEN Urine Bacteria RARE Hyaline Casts 0-5 SEEN Urine Mucus 0 SEEN Radiography Diagnostic Testing: Clinical Impression(s) from Imaging Studies Hip/Pelvis X-Ray 07/03/25 20:20 IMPRESSION: Fracture of the right greater trochanter, extending into the intertrochanteric line. Malignancy cannot be excluded. Reading Location: [facility] Lower Extremity CT 07/03/25 21:54 IMPRESSION: Acute, moderately comminuted and impacted right intertrochanteric femoral fracture. No aggressive osseous lesions. Reading Location: [facility] X-rays of the right hip were obtained. There are 3 views. On my independent interpretation, there is an intertrochanteric fracture of the right hip. There is some mild displacement. Radiologist also interpreted the x-ray and agrees. CT scan of the right hip was obtained. There is comminuted and impacted right intertrochanteric fracture. There is no aggressive osseous lesion noted. This was interpreted by the radiologist and was also independently reviewed by myself. EKG Initial EKG: Attestation: I personally reviewed and interpreted this EKG as follows: Interpretation: Sinus Tachycardia (112) and Non-Specific ST Changes Comments: EKG was obtained. On my independent interpretation, shows sinustachycardia with a rate of112. NE interval was normal at 158 ms. QRS intervalwas normal at 76 ms. QTc interval is normal at 455 ms. [place] was normal. Thereare nonspecific ST-T wave changes noted. There are no acute abnormalities noted. Prior EKG tracings: available for review Prior: Unchanged (05/11/2025) Management Discussion w/another healthcare provider: Hospitalist and Data Management Manager Treatment and Re-Evaluation Narrative: Patient was given IV fluids and morphine. Because of the hip fracture, medical screening labs will be obtained. EKG was obtained to assess for cardiac dysrhythmia and cardiac ischemia. CBC was obtained to assess for leukocytosis and anemia. Basic metabolic profile was obtained to assess for electrolyte abnormality and renal function. PT with INR and PTT were obtained to assess forcoagulopathy. Urinalysis was obtained to assess for urinary tract infection or hematuria. Patient was advised of hisfindings. Case was discussed with Dr. Campbell from orthopedics. He will see the patient in consultation. Case will bediscussed with the hospitalist for admission. Due to the x-ray report of a questionable malignancy cannot be excluded, Dr. Campbell requested CT scan of the hip be obtained to check formalignancy. This was ordered. There is no evidence of malignancy. Patient will be admitted here. Patient and family understand and are agreeable with the plan. All questions were answered. Discharge Plan Dx/Rx/DC Orders Clinical Impression: Closed intertrochanteric fracture of right hip, Cancer of right lung, Fall Disposition Disposition: Acute Care Hospital [facility] Discharge Date/Time: 07/03/25 23:37 What to do if you have Problems For any increased pain, shortness of breath, bleeding, nausea or vomiting, chestpain, or any unexpected problems, contact your Primary Care Provider. Call [facility] ([phone]) or report tothe closest Emergency Room. Call 911 if necessary. 07/04/25 0109 Cosigner Signature (if applicable): CC: POWER BARKER OPERATOR-C Carlene Haji ~ Signed [facility]08-09-2025 History and physical note [facility] Medical Records Department [address] [place] [address] H&P Exam - Hospitalist 07/03/252236 MR#: [id number] Acct: [id number] Name: ITZEL ALONZO Rep #:[id number] : 1950 75 From: Johanne Evans MD PCP: SID Haro Status:ADM IN [place] [facility] [id number] HPI - General General Date of Admission: 07/03/25 Date of Service: 07/03/25 Chief Complaint: Fall, R hip pain. HPI Narrative The patient is a 75 y/o M w/ PMHx: CKD stage II per GFR trending, RLS, Cirrhosisassociated with hepatitis unclear specific type, Diabetes mellitus type II with chronic neuropathy, Anxiety and Depression, GERD, Hx CVA, Chronic anemia, Formertobacco use, COPD, [facility]25 following largeright-sided lung cancer wit suspected postobstructive pneumonia with acute metabolic encephalopathy suspected secondary to hypercalcemia of malignancy in addition to acute on chronic anemia with suspected upper GI bleed for further evaluation who now presents to the [facility] ED on 07/03/2025 with onset of right hip discomfort reportedly following a fall onto the right hip with pain worse with any movement described as sharp, stabbing with inability to ambulate or stand/bear weight with no associated paresthesias nor any head trauma or loss of consciousness but given ongoing pain prompted ED evaluation. Prior to ED arrival patient reported pain 10 out of 10 to the righthip and upon hospitalist evaluation following ED intervention reported pain decreased to 6-7 out of 10 in severity. Workup in the ED included T98.7, heart rate 113, BP 185/93, respiratory rate 18, 95% on room air, plain film of the right hip and pelvis with a fracture the right greatertrochanter extending intothe intertrochanteric line with malignancy unable to be excluded, CT right hip and pelvis with acute moderately commuted and impacted right intertrochanteric femoral fracturewith no aggressive osseous lesions identified, CBC with WBC 12.7, hemoglobin 8.4, MCV 70.6, platelet 300 with left shift and lymphopenia, coags with PT 15.5, INR 1.2, PTT 22.7, BMP carbon dioxide 20.2, BUN/creatinine 14/0.86, GFR 89, glucose 204, urinalysis unremarkable, EKG with ST with nonspecific ST-T changes with no acute evidence of ischemia. In the ED patientministered 1 L normal saline, morphine 4 mg IV x 1. ED discussed case with orthopedic surgeon Dr. Campbell who recommended CT and if there is no evidence of acute osseous lesion would plan to admit to [facility] and evaluate for repair of hip fracture. [facility] Medical History (Updated 07/03/25 @ 23:[address] Johanne Evans MD) CKD (chronic kidney disease), stage II Chronic anemia Cancer of right lung Anxiety and depression GERD (gastroesophageal reflux disease) Cirrhosis Former smoker TIA (transient ischemic attack) Kidney stones Neuropathy PTSD (post-traumatic stress disorder) Hepatitis COPD (chronic obstructive pulmonary disease) Hypertension Diabetes Home Medications ?Medication ?Instructions ?Recorded ?Last Taken ?Type gabapentin 300 mg capsule 300 mg PO TID neuropathy 01/09 Unknown History amlodipine 5 mg tablet 5 mg PO QHS blood pressure 0 05/09/21 Unknown History aspirin 81 mg tablet,delayed 81 mg PO DAILY heart heal th 05/09/21 Unknown History release 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 Johanne Evans MD) household members: none housing: apartment Smoking Status: Current some day smoker tobacco type: cigarettes and cigars alcohol intake: never substance use type: does not use ROS ROS Narrative Admission Review of Systems: CONSTITUTIONAL: No weight loss, fever, chills, + weakness or fatigue. HEENT: Eyes: No visual loss, blurred vision, double vision or yellow sclerae. Ears, Nose, Throat: No hearing loss, sneezing, congestion, runny nose or sore throat. SKIN: No rash or itching, lesions, wounds except + occasional abrasion. CARDIOVASCULAR: No chest pain, chest pressure or chest discomfort, palpitations,edema, orthopnea, syncopal events. RESPIRATORY: + Chronic cough. No marked dyspnea or productive sputum sputum, wheezing, hemoptysis. GASTROINTESTINAL: No anorexia, nausea, vomiting or diarrhea, abdominal pain, melena, BRBPR. GENITOURINARY: No dysuria, frequency, urgency or retention. NEUROLOGICAL: No headache, dizziness, syncope, paralysis, ataxia, numbness or tingling in the extremities, focal weakness, change in bowel or bladder control,seizure. MUSCULOSKELETAL: + muscle, back pain, joint pain or stiffness. HEMATOLOGIC: + Chronic anemia, no marked history of easy bleeding/bruising. LYMPHATICS: No enlarged nodes. No history of splenectomy. PSYCHIATRIC: + History of anxiety and depression. ENDOCRINOLOGIC: No reports of sweating, cold or heat intolerance. No polyuria orpolydipsia. ALLERGIES: No history of asthma, hives, eczema or rhinitis. Vital Signs Vital Signs Vital Signs: 07/03/25 19:10 07/03/25 21:09 Temperature 98.7 F Temperature Source Oral Pulse Rate 113 H 116 H Respiratory Rate 18 20 H Blood Pressure 185/93 H 160/98 H Blood Pressure Mean 123 118 Pulse Ox 95 93 Oxygen Delivery Method Room Air Room Air Weight Weight: 143 lb 1.28 oz Body Mass Index (BMI) 18.8 Physical Exam Narrative Physical Examination: General: Awake, alert, oriented x 3 and cooperative, laying in the ED bed, ratesright hip discomfort 7 out of 10 in severity Skin: Normal color, normal turgor, no icterus, no cyanosis except occasional abrasion. HEENT: AT/NC, EOMI, PERRLA, mildly dry MM, missing several teeth, no carotid bruits or JVD noted. Lungs: Diminished, greater bases, appropriate effort, no appreciated rales, ronchi or wheezing. Heart: Mildly tachycardic with regular rhythm; no gallop, rub audible. Abdomen: Soft, thin habitus, NTTP, ND, mildly hyperactive BS, + HM. Extremities: No cyanosis, no clubbing, no significant distal edema, distal pulses intact, status post fall with right hip fracture. Neurological: Patient awake, alert, oriented as noted, cognitive function intact; pupils equally reactive to light and accommodation, cranial nerves grossly normal, moving all 4 extremities except expected limitation given fall with right hip fracture, strength severely globally decreased Psychiatric: Affect appears fatigued, uncomfortable, flat, no acute evidence of depressive or anxiety feelings but does have underlying psychiatric history. Results Lab / Micro Data 07/03/25 21:46 07/03/25 21:46 Labs: Laboratory Results - last 24 hr 07/03/25 21:43: Urine Color Yellow, Urine Clarity Clear, Urine pH 6.0, Ur Specific [place] 1.010, Urine Protein 100 H, Urine Glucose (UA) 100 H, Urine Ketones Negative, Urine Occult Blood 10 H, UrineNitrite Negative, Urine Bilirubin Negative, Urine Urobilinogen Normal, Ur Leukocyte Esterase Negative, Urine RBC 0-5 SEEN, Urine WBC 0-5 SEEN, Ur Squamous Epith Cells 0-5 SEEN, Urine Bacteria RARE, Hyaline Casts 0-5 SEEN, Urine Mucus 0 SEEN 07/03/25 21:46: WBC 12.7 H, RBC 3.95 L, Hgb 8.4 L, Hct 27.9 L, MCV 70.6 L, MCH 21.3 L, MCHC 30.1 L,RDW Std Deviation 56.9 H, RDW Coeff of Tiffany 22.6 H, Plt Count 300, MPV 9.1, Immature Gran % (Auto) 0.500, Neut % (Auto) 90.1 H, Lymph % (Auto) 6.3 L, [place] % (Auto) 2.8, Eos % (Auto) 0.1, Baso % (Auto)0.2, Absolute Neuts (auto) 11.4 H, Absolute Lymphs (auto) 0.80 L, Nucleated RBC % 0, PT 15.5 H, INR1.2, APTT 22.7 L Imaging Radiology Impression Hip/Pelvis X-Ray 07/03/25 20:20 IMPRESSION: Fracture of the right greater trochanter, extending into the intertrochanteric line. Malignancy cannot be excluded. Reading Location: [facility] Lower Extremity CT 07/03/25 21:54 IMPRESSION: Acute, moderately comminuted and impacted right intertrochanteric femoral fracture. No aggressive osseous lesions. Reading Location: [facility] Assessment & Plan Assessment/Plan (1) Closed intertrochanteric fracture of right hip: (2) Fall: PLAN: Plan The patient is a 75 y/o M w/ PMHx: CKD stage II per GFR trending, RLS, Cirrhosisassociated with hepatitis unclear specific type, Diabetes mellitus type II with chronic neuropathy, Anxiety and Depression, GERD, Hx CVA, Chronic anemia, Formertobacco use, COPD, [facility] following largeright-sided lung cancer wit suspected postobstructive pneumonia with acute metabolic encephalopathy suspected secondary to hypercalcemia of malignancy in addition to acute on chronic anemia with suspected upper GI bleed for further evaluation who now presents to the [facility] ED on 07/03/2025 with onset of right hip discomfort reportedly following a fall onto the right hip with pain worse with any movement described as sharp, stabbing with inability to ambulate or stand/bear weight with no associated paresthesias nor any head trauma or loss of consciousness but given ongoing pain prompted ED evaluation. #1. General debility, right hip pain s/p mechanical fall w/ fracture of the right greater trochanter extending into the intertrochanteric line: Orthopedic surgery consulted from ED. CT right hip and pelvis obtained additionally with noted with acute moderately commuted and impacted right intertrochanteric femoral fracture with no aggressive osseous lesions identified Will admit to MS, maintain NPO, judiciously administer IVFs, epperson placement, monitor I/Os, frequent positioning, fall precautions, T+S requested, as needed pain, anti- emetic regimen. PT/OT following operative intervention. CM consulted for discharge planning. Per NSQIP patient with at least moderate risk likely more so elevated above thisgiven his underlying significant comorbidities and active cancer with ongoing chemotherapy. EKG with ST with nonspecific ST-T changes with no acute evidenceof ischemia. Most recent echocardiogram noted 05/11/2021 with EF60%, normal diastole for age, moderate focal AV calcification. Will obtain BMP and if this is elevated low threshold to obtain repeat echo and request cardiology preoperative evaluation. #2. Right sided lung cancer (suprahilar, unclear exact specific type) with associated hypercalcemiaof malignancy with [facility] evaluation: [facility], from discussion with patient and significant difficulty with transportation and receiving chemotherapy, setting up visits, magnesium and phosphorus levels requested, encouraged continued follow-[facility] with the [facility] as previously arranged. #3. Chronic microcytic anemia, recent GI bleed presentation: Admission hemoglobin 8.4, MCV 70.6, baseline hemoglobin more recently 7-8, has trended down since 2023, from current list does not appear to be on iron supplementation, will obtain iron panel, ferritin, trend CBC. Pending results may be appropriate for course of IV iron transition to oral regimen. #4. Hx CVA: Patient with previous acute right posterior parietal lobe infarct with associated 50 to69% narrowing of the left internal carotid artery at that time, will continue aspirin, statin, hypertensive regimen, diabetic regimen withadjustments as able. #5. Chronic Kidney Disease Stage II per GFR trend: Admission BUN/Cr 14/0.86, GFR 89, baseline renalfunction 0.9-1.2 primarily, repeat BMP in AM. #6. Diabetes mellitus type II with chronic neuropathy: Hold oral home regimen, continue home insulin regimen, ADA diet until NPO status, accu checks w/ ISS, continue home gabapentin regimen. #7. 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 #8. Anxiety and depression: Per current list does not appear to be on regimen, encourage continued follow-up outpatient for further evaluation. #9. Hypertension: Continue home regimen including amlodipine, PRN hydralazine. #10. Hyperlipidemia: Will continuation of statin therapy. #11. Chronic COPD: Will temporally hold home inhaler and in the interim maintain on ATC budesonide therapy, PRN albuterol, HOB, IS parameters. #12. GERD: Per current list on a regimen, will have as needed Mylanta regimen. #13. Tobacco Abuse: Patient notes that he occasionally still has a cigarette but not all the time and not daily, encouraged cessation, inpatient consultationper RT, NR if desired. #14. Restless leg syndrome: Will continue patient on Requip regimen. #15. Severe protein calorie malnutrition: BMI reduced, obvious muscle and fat loss, significant underlying morbidities including active cancer on chemotherapy, mag and Phos requested, nutrition consulted for recommendations. #16. DVT prophylaxis: SCDs given pending orthopedic surgery evaluation for operative intervention. #17. CODE status: Patient HCPOA and living will are not in place but he notes his daughter will be his medical decision-maker if necessary. Discussed CODE status at length including difference between FULL code, DNR-CCA and DNR-CC status. Following discussions about the differences in these status,requested Full Code status. Did frankly discuss patient underlying health history, comorbidities and prognosis if cardiopulmonary event should arise any understands that the likelihood of a good outcome would be low. Advanced Care Planning Face to Face Time: 16 minutes. Charges/Coding Visit Charges Inpatient E&M: 77193 Init Hosp L3 Procedures Hospitalists Procedures: 57257 Advncd Care Plan 30 Min 07/03/25 2321 Cosigner Signature (if applicable): CC: POWER BARKER OPERATOR-C Carlene Haji; Dr. Johanne Evans MD~ Signed [facility]08-09-2025 Radiology Diagnostic study note [facility] Imaging Services [address] [place], [place] [address] Extremity Lower without Contra MR#: [id number] Acct: [id number] Name: ITZEL ALONZO Rep #: [id number] : 1950 M 75 From: Bridget Abraham MD PCP: SID Haro Status: REG ER Study:Extremity Lower without Contra Date of Exam: 07/03/25 Exam# [id number] Ordering Dr: Taylor Campbell MD PROCEDURE: EXTREMITY LOWER WITHOUT CONTRA 07/03/2025 REASON FOR EXAM: R/O MALIGNANCY TECHNIQUE: EXTREMITY LOWER WITHOUT CONTRA Coronal and Sagittal reconstruction series were provided. One or more dose reduction techniques were used (e.g., Automated exposure control, adjustment of the mA and/or kV according to patient size, use of iterative reconstruction technique). RADIATION DOSE SUMMARY: DLP: 400 mGycm COMPARISON: Right hip radiographs earlier same day. FINDINGS: Bones: Acute, moderately comminuted and impacted intertrochanteric right proximal femoral fracture.Bone island within the right iliac crest and right femoral head. No aggressive osseous lesions. Joints: Degenerative changes are present. No intra-articular fracture extension. Arthrosis of the right SI joint and pubic symphysis. Soft Tissues: No large soft tissue swelling or hematoma. Distention of the urinary bladder. CT/Extremity Lower without Contra IMPRESSION: Acute, moderately comminuted and impacted right intertrochanteric femoral fracture. No aggressive osseous lesions. Reading Location: [facility] CC: SID Haji; Dr. Nuno Campbell MD ~ Electronic Communications Technician: Signed [facility]08-09-2025 Radiology Diagnostic study note [facility] Imaging Services [address] [place], [place] [id number] HIP, UNI W/ Pelvis 2-3 Views MR#: [id number] Acct: [id number] Name: ITZEL ALONZO Rep #: [id number] : 1950 M 75 From: Bridget Abraham MD PCP: SID Haro Status: REG ER Study:HIP, UNI W/ Pelvis 2-3 Views Date of Ex am: 07/03/25 Exam# [id number] Ordering Dr: Steven Tejeda DO PROCEDURE: HIP, UNI W/ PELVIS 2-3 VIEWS 07/03/2025 REASON FOR EXAM: INJURY/PAIN TECHNIQUE: HIP, UNI W/ PELVIS 2-3 VIEWS Laterality: Right COMPARISON: CT abdomen pelvis 05/2024. FINDINGS: Bones: Diffuse osseous demineralization. Cortical irregularity along the right greater trochanter, extending across the intertrochanteric line. Joints: Normal alignment. Moderate degenerative changes. Soft tissues: Soft tissues are unremarkable. Other: The visualized bowel loops are nondilated. Pelvic phleboliths. RAD/HIP, UNI W/ Pelvis 2-3 Views IMPRESSION: Fracture of the right greater trochanter, extending into the intertrochanteric line. Malignancy cannot be excluded. Reading Location: [facility] CC: SID Haji; Dr. Steven Tejeda DO ~ Electronic Communications Technician: Signed [facility]06-19-2025 Discharge summary [facility] Medical Records Department [address] [place] [address] Discharge Summary 05/13/25 1257 MR#: [id number] Acct: [id number] Name: ITZEL ALONZO Rep #:[id number] : 1950 74 From: Anthony Kiser PCP: SID Haro Status:ADM IN Location: [place] [id number]- 1 Providers Date of Admission: 05/11/25 Primary Care [...] Patient is a 74-year-old male who presented [facility] ED on 05/11/2025 with worsening fatigue, weakness and confusion. 1. Large right-sided lung cancer with suspected postobstructive pneumonia ? Admit under inpatient status to PCU. Patient with known history of large right-sided lung cancer.Chest x-ray on admit with concern for acute postobstructive pneumonia in setting of lung cancer. Stable on room air at rest. Patient has established oncologist Dr. Lake, [facility]. I myself tried to contact through the transfer line 2 times but unsuccessful. Discussed with the porter sample case. OR oncologist wanted CT head before transfer. In [...] As plan is for transfer to the OR, will hold on GI consult for now. [...] code, verified Expected disposition: Likely transfer to OR Patient is being transferred to OR Hospital for further care and decision makingregarding care of right lung cancer Medications at Discharge Home Medications gabapentin 300 mg capsule 300 mg PO TID neuropathy 02/24/15 amlodipine 5 mg tablet 5 mg PO QHS blood pressure 05/09/21 aspirin 81 mg tablet,delayed release 81 mg PO DAILY heart health 05/09/21 budesonide-formoterol HFA 80 mcg-4.5 mcg/actuation aerosol inhaler (Symbicort) 2puff inhalation BIDCOPD 05/09/21 cyclobenzaprine 10 mg tablet 10 mg [...] pen (Lantus Solostar U-100 Insulin) 10 unit subcutQPM 05/04/25 magnesium hydroxide 400 mg/5 mL oral suspension (Gentle Laxative (magnesium hydroxide)) 5 ml PO DAILY PRN constipation 05/04/25 ropinirole 1 mg tablet 1 mg PO DAILY 05/04/25 Physical Exam Narrative Seen and examined Patient shortness of breath is much improved. Sitting upright. Discussed with patient's daughter inthe bed. No chest pain. Diagnosed with a right suprahilar lung cancer, exact sampler/tissue type unclear. [facility] . Because of transportation [...] 65.0 L, MCH 19.7 L, MCHC 30.3 L,RDW Std Deviation 43.1, RDW Coeff of Tiffany 18.4 H, Plt Count 358, MPV 10.0, Immature Gran % (Auto) 0.300, Neut % (Auto) 75.7 H, Lymph % (Auto) 16.4 L, [place] % (Auto) 6.5, Eos % (Auto) 0.9, Baso % (Auto)0.2, Absolute Neuts (auto) 8.9 H, Absolute Lymphs [...] mass. No acute intracranial process. Reading Location: [facility] D/C Instructions DC O2, CPAP, BIPAP Needs [...] (Reason: constipation) Referrals / Follow Up: Carlene Haji NP-C [Primary Care Provider] - Disposition Discharge Orders: Discharge Patient (Routine); Ordered 05/12/25 Ordered By: Dr. Anthony Salgado Charges/Coding Visit Charges Inpatient E&M: 83347 Disch Hosp >30min 05/13/25 1400 Cosigner Signature (if applicable): CC: POWER BARKER OPERATOR-C Carlene Haji; Dr. Anthony Salgado MD~ Signed [facility]06-19-2025 Consult note [facility] Medical Records Department [address] [place] [address] Pharmacokinetic/Renal -Consult 05/13/25 1107 MR#: [id number] Acct: [id number] Name: ITZEL ALONZO Rep #:[id number] : 1950 74 From: Gaye Garcia PCP: SID Haro Status:ADM IN Y Location: [address] 1 Consult Antibiotic Management Pharmacy has been consulted [...] Trough: Vancomycin (05/14/25 @ 23:00) 05/13/25 1108 Date _ Gaye Garcia 05/13/25 1357 MD> Day Signature (if applicable): Date Anthony Salgado MD CC: ~ Signed [facility]06-19-2025 Consult note Author Gaye Garcia [facility] Note Date/Time May 13, 2025 1:57 pm [facility] Medical Records Department [address] [place] [address] Pharmacokinetic/Renal -Consult 05/13/25 1107 MR#: [id number] Acct: [id number] Name: ITZEL ALONZO Rep #:[id number] : 1950 74 From: Gaye Garcia PCP: Carlene Haji POWER BARKER OPERATOR-C Status:ADM IN Location: [place] [address] Consult Antibiotic Management Pharmacy has been consulted [...] Date Anthony Salgado MD CC: ~ Signed [facility] Work Phone: 1(558) 954-112506-19-2025 [facility] Medical Records Department [address] [place] [address] Discharge Summary 05/13/25 1257 MR#: [id number] Acct: [id number] Name: ITZEL ALONZO Carlie Rep #: [id number] : 1950 74 From: Anthony Salgado MD PCP: SID Haro Status:ADM IN Location: [place] [address] Providers Date of Admission: 05/11/25 Primary Care [...] Patient is a 74-year-old male who presented [facility] ED on 05/11/2025 with worsening fatigue, weakness and confusion. 1. Large right-sided lung cancer with suspected postobstructive pneumonia ??? Admit under inpatient status to PCU. Patient with known history of large right-sided lung cancer. Chest x-ray on admit with concern for acute postobstructive pneumonia in setting of lung cancer. Stable on room air at rest. Patient has established oncologist Dr. Lake, [facility]. I myself tried to contact through the transfer line 2 times but unsuccessful. Discussed with the porter sample case. OR oncologist wanted CT head before transfer. In [...] As plan is for transfer to the OR, will hold on GI consult for now. [...] code, verified Expected disposition: Likely transfer to OR Patient is being transferred to OR Hospital for further care and decision making [...] PO DAILY PRN c (more content not included)...[facility]06-18-2025 Progress note Author Anthony Salgado [facility] Note Date/Time May 12, 2025 5:22 pm [facility] Medical Records Department [address] [place] [address] Progress Note - Hospitalist 05/12/25 0935 MR#: [id number] Acct: [id number] Name: TIZEL ALONZO Rep #:[id number] : 1950 74 From: Anthony Kiser PCP: Carlene Haji POWER BARKER OPERATOR-C Status:ADM IN Location: [place] [address] Reason for Visit Reason for Visit: Diagnoses [...] 74.3 H, Lymph % (Auto) 18.4 L, [place] % (Auto) 5.8, Eos % (Auto) 0.8, [...] end-stage honeycomb fibrosis. Reading Location: [facility] Physical Exam Narrative Seen and examined Patient has mild lethargic but wake up. Shortness of breath mild chest congestion. Diagnosed with a right suprahilar lung cancer, exact sampler/tissuetype unclear. Follows OR oncologist, await path . Because of transportation [...] Patient is a 74-year-old male who presented [facility] ED on 05/11/2025 with worsening fatigue, weakness and confusion. 1. Large right-sided lung cancer with suspected postobstructive pneumonia ? Admit under inpatient status to PCU. Patient with known history of large right-sided lung cancer. Chest x-ray on admit with concern for acute postobstructive pneumonia in setting of lung cancer. Stable on room air at rest. Patient has established oncologist Dr. Lake, [facility]. I myself tried to contact through the transfer line 2 times but unsuccessful. Discussed with the porter sample case. [facility] wanted [facility] head before transfer. In [...] As plan is for transfer to the OR, will hold on GI consult for now. [...] code, verified Expected disposition: Likely transfer to OR Total time of the visit including total time spent in counseling or coordinationof care, (more than 50% of the total time, spent in obtaining medical information from nurses and other ancillary care providers ,explaining to the patient about labs, imaging, diagnosis and management of active complex medical conditions), effort to transfer OR Hospital, discussion with porter sample case, review of labs and imaging is 35 [...] 278 H Charges/Coding Visit Charges Inpatient E&M: 31019 Subs Hosp L3 05/12/25 1722 <Electronically signed by Anthony Salgado MD> Cosigner Signature (if applicable): CC: ~ Signed [facility] Work Phone: 1(460) 734-579106-18-2025 Radiology Diagnostic study note [facility] Imaging Services [address], [place] [address] Brain/Head W/WO Contrast MR#: [id number] Acct: [id number] Name: ITZEL ALONZO Rep #: [id number] : 1950 M 74 From: Estella Coley MD PCP: Carlene Haji, POWER BARKER OPERATOR-C Status: ADM IN Study:Brain/Head W/WO Contrast Date of Exam: 05/12/25 Exam# [id number] Ordering Dr: Venessa Salgado MD PROCEDURE: BRAIN/HEAD [...] mass. No acute intracranial process. Reading Location: [id number] CC: POWER BARKER OPERATOR-René Haji; Dr. Anthony Salgado MD ~ Electronic Communications Technician: Signed [facility]06-18-2025 Progress note [facility] Medical Records Department [address] [place] [address] Progress Note - Hospitalist 05/12/25 0935 MR#: [id number] Acct: [id number] Name: ITZEL ALONZO Rep #:[id number] : 1950 74 From: Anthony Kiser PCP: SID Haro Status:ADM IN Location: [place] [address] Reason for Visit Reason for Visit: Diagnoses [...] 74.3 H, Lymph % (Auto) 18.4 L, [place] % (Auto) 5.8, Eos % (Auto) 0.8, Baso % (Auto) 0.3, Absolute Neuts (auto) 8.6 H, Absolute Lymphs (auto) 2.13, Nucleated RBC % 0, Sodium 136, Potas sium 3.5, Chloride 99, Carbon Dioxide 26.3, Anion [...] end-stage honeycomb fibrosis. Reading Location: [facility] Physical Exam Narrative Seen and examined Patient has mild lethargic but wake up. Shortness of breath mild chest congestion. Diagnosed with aright suprahilar lung cancer, exact sampler/tissuetype unclear. Follows OR oncologist, await path . Because of transportation he said he could not follow-up to December therefore exact courseofchemotherapy not clear but he [...] Patient is a 74-year-old male who presented [facility] ED on 05/11/2025 with worsening fatigue, weakness and confusion. 1. Large right-sided lung cancer with suspected postobstructive pneumonia ? Admit under inpatient status to PCU. Patient with known history of large right-sided lung cancer.Chest x-ray on admit with concern for acute postobstructive pneumonia in setting of lung cancer. Stable on room air at rest. Patient has established oncologist Dr. Lake, [facility]. I myself tried to contact through the transfer line 2 times but unsuccessful. Discussed with the porter sample case. OR oncologist wanted CT head before transfer. In [...] As plan is for transfer to the OR, will hold on GI consult for now. [...] code, verified Expected disposition: Likely transfer to OR Total time of the visit including total time spent in counseling or coordinationof care, (more than50% of the total time, spent in obtaining medical information from nurses and other ancillary care providers ,explaining to the patient about labs, imaging, diagnosis and management of active complexmedical conditions), effort to transfer OR Hospital, discussion with porter sample case, review of labs and imaging is 35 [...] 278 H Charges/Coding Visit Charges Inpatient E&M: 33317 Subs Hosp L3 05/12/25 1722 Cosigner Signature (if applicable): CC: ~ Signed [facility]06-18-2025 History and physical note Author Lane Stanley [facility] Note Date/Time May 12, 2025 12:4 6am [facility] Medical Records Department [address] [place] [address] H&P Exam - Hospitalist 05/11/25 191 MR#: [id number] Acct: [id number] Name: ITZEL ALONZO Rep #:[id number] : 1950 74 From: Lane dunn DO PCP: SID Haro Status:ADM IN Location: [place] [address] HPI - General General Date of Admission: 05/11/25 Date of Service: 05/11/25 Chief Complaint: Worsening fatigue, weakness and confusion HPI Narrative ITZEL ALONZO, is a 74 M who presented to [facility] ED on 05/11/2025 with worsening fatigue, weakness and confusion. Patient has been seenin our ED recently but he receives his care through the OR. He was diagnosed with right- sided lung cancer about 1 year ago. It appears this diagnosis was confirmed on bronchial biopsy. Patient declined active treatment at that time and preferred close monitoring. However, patient has issues with transportationand has had difficulty getting to [facility]. He [...] phone with the transfer nurse with the OR liliana goodman. Nurse noted that transfer could be initiated there but as the admitting physician was gone for the day, transfer will not happen until tomorrow at the earliest. [facility] Medical History (Updated 05/12/25 @ 00:00 by [...] 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 05/09/21 Unknown History mcg-4.5 mcg/actuation aerosol [...] 74.3 H, Lymph % (Auto) 18.4 L, [place] % (Auto) 5.8, Eos % (Auto) 0.8, [...] associated with end-stage honeycomb fibrosis. [facility] Assessment & Plan Assessment/Plan (1) Lung cancer: (2) Hypercalcemia: (3) Acute on chronic anemia: PLAN: Plan Patient is a 74-year-old male who presented [facility] ED on 05/11/2025 with worsening [...] Patient has established with oncology at the [facility]. Has deferred treatment for the lung cancer up to this point. Discussed with patient and family extensively in the ED and noted to them that unfortunately his condition will continue to worsen without active chemotherapy or radiation therapy for this lung cancer. Patient was scheduled to follow-up with oncology at the OR next week. Transfer has been initiated to the OR. 2. Acute metabolic encephalopathy suspected secondary to [...] As plan is for transfer to the OR, will hold on GI consult for now. [...] code, verified Expected disposition: Likely transfer to OR Total clinical time spent by myself addressing the patient's medical issues, reviewing all the data, and collaborating with patient's care team: 75 minutes. Charges/Coding Visit Charges Inpatient E&M: 19232 Init Hosp L3 05/12/25 0046 <Electronically signed by Lane Stanley DO> Cosigner Signature (if applicable): CC: SID Haji; Dr. Lane Stanley DO~ Signed [facility] Work Phone: 1(518) 272-833406-18-2025 History and physical note [facility] Medical Records Department [address] [place] [address] [place] [address] H&P Exam - Hospitalist 05/11/251918 MR#: [id number] Acct: [id number] Name: ITZEL ALONZO Rep #:[id number] : 1950 74 From: Lane dunn DO PCP: Carlene Haji, SID Status:ADM IN Location: [address] HPI - General General Date of Admission: 05/11/25 Date of Service: 05/11/25 Chief Complaint: Worsening fatigue, weakness and confusion HPI Narrative ITZEL ALONZO, is a 74 M who presented to [facility] ED on 05/11/2025 with worsening [...] getting tohis appointments with oncology at the OR. He lives at home with his significant [...] phone with the transfer nurse with the OR liliana goodman. Nurse noted that transfer could be initiated there but as the admitting physician was gone for the day, transfer will not happen until tomorrow at the earliest. [facility] Medical History (Updated 05/12/25 @ 00:00 by Background Juanjo) Depression GERD (gastroesophageal reflux disease) Cirrhosis Former [...] 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 05/09/21 Unknown History mcg-4.5 mcg/actuation aerosol [...] 74.3 H, Lymph % (Auto) 18.4 L, [place] % (Auto) 5.8, Eos % (Auto) 0.8, Baso % (Auto) 0.3, Absolute Neuts (auto) 8.6 H, Absolute Lymphs (auto) 2.13, Nucleated RBC % 0, Sodium 136, Potas sium 3.5, Chloride 99, Carbon Dioxide 26.3, Anion [...] associated with end-stage honeycomb fibrosis. [facility] Assessment & Plan Assessment/Plan (1) Lung cancer: (2) Hypercalcemia: (3) Acute on chronic anemia: PLAN: Plan Patient is a 74-year-old male who presented [facility] ED on 05/11/2025 with worsening [...] Patient has established with oncology at the [facility]. Has deferred treatment for the lung cancerup to this point. Discussed with patient and family extensively in the ED and noted to them that unfortunately his condition will continue to worsen without active chemotherapy or radiation therapy for this lung cancer. Patient was scheduled to follow-up with oncology at the OR next week. Transfer h as been initiated to the OR. 2. Acute metabolic encephalopathy suspected secondary to [...] As plan is for transfer to the OR, will hold on GI consult for now. [...] code, verified Expected disposition: Likely transfer to OR Total clinical time spent by myself addressing the patient's medical issues, reviewing all the data, and collaborating with patient's care team: 75 minutes. Charges/Coding Visit Charges Inpatient E&M: 80910 Init Hosp L3 05/12/25 0046 Cosigner Signature (if applicable): CC: SID Haji; Dr. Lane Stanley, DO~ Signed [facility]06-18-2025 Consult note Author Clarke Montesinos [facility] Note Date/Time May 11, 2025 10:3 8pm [facility] Medical Records Department [address] [place] [address] Pharmacokinetic/Renal -Consult 05/11/252236 MR#: [id number] Acct: [id number] Name: ITZEL ALONZO Rep #:[id number] : 1950 74 From: Clarke Bailon od PCP: SID Haro Status:ADM IN Y Location: [place] [id number]- Consult Antibiotic Management Pharmacy has been consulted [...] [date and time ordered]: 05/13 @ 0930 05/11/252237 <Electronically signed by Clarke rizzo> Date _ Clarke Bernstein Signature (if applicable): Date CC: ~ Signed [facility] Work Phone: 1(864) 176-432906-17-2025 Discharge summary Author Monty Clarke [facility] Note Date/Time May 11, 2025 9:07 pm [facility] Medical Records Department [address] [place] [address] Emergency Department Summary 05/11/25 MR#: [id number] Acct: [id number] Name: ITZEL ALONZO Rep #:[id number] : 1950 74 From: Monty Clarke MD PCP: Carlene Haji NP-C Status:ADM IN Location: [facility] [id number]- [address] Monty Clarke MD on 05/11/25 at 2107 EKG was obtained 1709 interpreted by me at 1711. The EKG is normal. Rate is 91. NE interval, QRS duration, QT duration and axis are all normal. 05/11/252106<Electronically signed by Monty Clarke MD> Cosigner Signature (if applicable): cc: POWER BARKER OPERATOR-C Carlene Haji ~* Signed HPI History of [...] said something that was offensive to the corrugated fastener driver . 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 He [...] similar symptoms: No Recent Illness/Hospitalization: Yes [facility] Medical History (Updated 05/11/25 @ 18:41 by [...] 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 05/09/21 Unknown History mcg-4.5 mcg/actuation aerosol [...] 74.3 H Lymph % (Auto) 18.4 L [place] % (Auto) 5.8 Eos % (Auto) 0.8 [...] associated with end-stage honeycomb fibrosis. Reading [facility] EKG Initial EKG: Attestation: I personally reviewed and interpreted this EKG as follows: Interpretation: Sinus Rhythm (Sinus rhythm rate of 91. Normal EKG. NE interval 150 ms Rickers duration 90 ms. QT duration 3096 ms. [place] is normal. EKG is unchanged from prior. ) Prior: Changed (September 14, 2021) Management Discussion w/another healthcare provider: Hospitalist (Dr. Stanley requested Icontact Dr. Robertson to make sure it is okay for me to admit this patient to [facility]) Additional Tests and Interventions Additional [...] EKG with elevated troponin), Discussing w/Patient &/or Family/Architect, Discussing w/Consultants and Arranging Admission or Transfer Discharge Plan Dx/Rx/DC Orders Clinical Impression: Obstructive pneumonia, Microcytic anemia, Acute on chronic anemia, Exertional dyspnea, Elevated troponin, Sinus tachycardia seen on threat monitoring analyst, Hypercalcemia, Lung cancer Disposition Disposition: Acute Care Hospital [facility] What to do if you have Problems For any increased pain, shortness of breath, bleeding, nausea or vomiting, chestpain, or any unexpected problems, contact your Primary Care Provider. Call [facility] ([phone]) or report to the closest Emergency Room. Call 911 if necessary. 05/11/251840 <Electronically signed by Monty Clarke MD> Cosigner Signature (if applicable): CC: SID Haji ~ Signed [facility] Work Phone: 1(396) 395-937206-17-2025 Consult note [facility] Medical Records Department [address] [place] [address] Pharmacokinetic/Renal -Consult 05/11/252236 MR#: [id number] Acct: [id number] Name: ITZEL ALONZO Rep #:[id number] : 1950 74 From: Clarke Bailon od PCP: Carlene N Adithya, POWER BARKER OPERATOR-C Status:ADM IN Y Location: [place] [address] Consult Antibiotic Management Pharmacy has been consulted [...] and time ordered]: 05/13 @ 0930 05/11/25 2238 lood> Date _ Clarke Bernstein Signature (if applicable): Date CC: ~ Signed [facility]06-17-2025 Evaluation note* Diagnosis Onset Date Resolution Status Admit Date Elevated troponin acute May 112024 7:20pm Exertional dyspnea acute April 252024 7:20pm Hypercalcemia acute May 11, 2025 7:20pm Lung cancer acute May 11 7:20pm Microcytic anemia acute May 112024 7:20pm Obstructive pneumonia acute Apr 7:20pm Sinus tachycardia seen on threat monitoring analyst acute May 11, 2025 7:20pm Acute on chronic anemia chronic J [facility] 2024 7:20pm [facility] Work Phone: 1(909) 822-772306-17-2025 Evaluation note* Diagnosis Onset Date Resolution Status Admit Date Elevated troponin acute May 112024 7:20pm Exertional dyspnea acute April 252024 7:20pm Hypercalcemia acute May 11, 2025 7:20pm Lung cancer acute May 11 7:20pm Microcytic anemia acute May 112024 7:20pm Obstructive pneumonia acute Apr 7:20pm Sinus tachycardia seen on ca rdiac monitor acute May 11, 2025 7:20pm Acute on chronic anemia chronic J [facility] 2024 7:20pm Closed intertrochanteric fra cture of right hip acute July 03, 2025 10:54pm Fall acute July 03 10:54pm [facility] Work Phone: 1(729) 321-520606-17-2025 Discharge summary [facility] Medical Records Department [address] [place] [address] Emergency Department Summary 05/11/25 MR#: [id number] Acct: [id number] Name: ITZEL ALONZO Rep #:[id number] : 1950 74 From: Monty Clarke MD PCP: SID Haro Status:ADM IN Location: [place] [address]- [address] Monty Clarke MD on 05/11/25 at 2107 EKG was obtained 1709 interpreted by pr at 1711. The EKG is normal. Rate is 91. NE interval, QRS duration, QT duration and axis are all normal. 05/11/252106 Cosigner Signature (if applicable): cc: POWER BARKER OPERATORNissa Haji ~* Signed HPI History of Present [...] said something that was offensive to the corrugated fastener driver . 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 He [...] Prior similar symptoms: No [facility] Medical History (Updated 05/11/25 @ 18:41 [...] 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 05/09/21 Unknown History mcg-4.5 mcg/actuation aerosol [...] 74.3 H Lymph % (Auto) 18.4 L [place] % (Auto) 5.8 Eos % (Auto) 0.8 [...] end-stage honeycomb fibrosis. Reading Location: [facility] EKG Initial EKG: Attestation: I personally reviewed and interpreted this EKG as follows: Interpretation: Sinus Rhythm (Sinus rhythm rate of 91. Normal EKG. NE interval 150 ms Rickers duration 90 ms. QT duration 3096 ms. [place] is normal. EKG is unchanged from prior. ) Prior: Changed (September 14, 2021) Management Discussion w/another healthcare provider: Hospitalist (Dr. Stanley requested Icontact Dr. Robertson to make sure it is okay for me to admit this patient to [facility]) Additional Tests and Interventions Additional [...] EKG with elevated troponin), Discussing w/Patient &/or Family/Architect, Discussing w/Consultants and Arranging Admission or Transfer Discharge Plan Dx/Rx/DC Orders Clinical Impression: Obstructive pneumonia, Microcytic anemia, Acute on chronic anemia, Exertional dyspnea, Elevated troponin, Sinus tachycardia seen on threat monitoring analyst, Hypercalcemia, Lung cancer Disposition Disposition: Acute Care Hospital [facility] What to do if you have Problems For any increased pain, shortness of breath, bleeding, nausea or vomiting, chestpain, or any unexpected problems, contact your Primary Care Provider. Call [facility] ([phone]) or report tothe closest Emergency Room. Call 911 if necessary. 05/11/251840 Cosigner Signature (if applicable): CC: SID Haji ~ Signed [facility]06-17-2025 Discharge summary [facility] Medical Records Department [address] [place] [address] Emergency Department Summary 05/11/25 MR#: [id number] Acct: [id number] Name: ITZEL ALONZO Rep #:[id number] : 1950 74 From: Monty Clarke MD [...] said something that was offensive to the corrugated fastener driver . 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 He [...] Prior similar symptoms: No Recent [facility]ness[facility] Medical History (Updated 05/11/25 @ 18:41 [...] 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 05/09/21 Unknown History mcg-4.5 mcg/actuation aerosol [...] 74.3 H Lymph % (Auto) 18.4 L [place] % (Auto) 5.8 Eos % (Auto) 0.8 [...] end-stage honeycomb fibrosis. Reading Location: [facility] EKG Initial EKG: Attestation: I personally reviewed and interpreted this EKG as follows: Interpretation: Sinus Rhythm (Sinus rhythm rate of 91. Normal EKG. NE interval 150 ms Rickers duration 90 ms. QT duration 3096 ms. [place] is normal. EKG is unchanged from prior. ) Prior: Changed (September 14, 2021) Management Discussion w/another healthcare provider: Hospitalist (Dr. Stanley requested Icontact Dr. Robertson to make sure it is okay for me to admit this patient to [facility]) Additional Tests and Interventions Additional [...] EKG with elevated troponin), Discussing w/Patient &/or Family/Architect, Discussing w/Consultants and Arranging Admission or Transfer Discharge Plan Dx/Rx/DC Orders Clinical Impression: Obstructive pneumonia, Microcytic anemia, Acute on chronic anemia, Exertional dyspnea, Elevated troponin, Sinus tachycardia seen on threat monitoring analyst, Hypercalcemia, Lung cancer Disposition Disposition: Acute Care Hospital [facility] What to do if you have Problems For any increased pain, shortness of breath, bleeding, nausea or vomiting, chestpain, or any unexpected problems, contact your Primary Care Provider. Call [facility] ([phone]) or report tothe closest Emergency Room. Call 911 if necessary. 05/11/25 1841 Cosigner Signature (if applicable): CC: SID Haji ~ Signed [facility]06-17-2025 Radiology Diagnostic study note [facility] Imaging Services [address] [place] [address] Chest PA and Lateral MR#: [id number] Acct: [id number] Name: ITZEL ALONZO Carlie Rep #: [id number] : 1950 M 74 From: Pet er Peer DO PCP: SID Haro Status: REG ER Study:Chest PA and Lateral Date of Exam: 05/11/25 Exam# [id number] Ordering Dr: Karin Clarke MD PROCEDURE: CHEST [...] end-stage honeycomb fibrosis. Reading Location: [facility] CC: POWER BARKER OPERATOR-C Carlene Haji; Dr. Monty Clarke MD ~ Electronic Communications Technician: Signed [facility]06-17-2025 Discharge summary Author Monty Clarke [facility] Note Date/Time May 11, 2025 6:41 pm [facility] Medical Records Department [address] [place] [address] Emergency Department Summary 05/11/25 MR#: [id number] Acct: [id number] Name: ITZEL ALONZO Rep #:[id number] : 1950 74 From: Monty Clarke MD [...] said something that was offensive to the corrugated fastener driver . 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 He [...] Prior similar symptoms: No Recent Illness/Hospitalization: Yes [facility] Medical History (Updated 05/11/25 @ 18:41 by [...] 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 05/09/21 Unknown History mcg-4.5 mcg/actuation aerosol [...] 74.3 H Lymph % (Auto) 18.4 L [place] % (Auto) 5.8 Eos % (Auto) 0.8 [...] end-stage honeycomb fibrosis. Reading Location: [facility] EKG Initial EKG: Attestation: I personally reviewed and interpreted this EKG as follows: Interpretation: Sinus Rhythm (Sinus rhythm rate of 91. Normal EKG. NE interval 150 ms Rickers duration 90 ms. QT duration 3096 ms. [place] is normal. EKG is unchanged from prior. ) Prior: Changed (September 14, 2021) Management Discussion w/another healthcare provider: Hospitalist (Dr. Stanley requested Icontact Dr. Robertson to make sure it is okay for me to admit this patient to [facility]) Additional Tests and Interventions Additional [...] EKG with elevated troponin), Discussing w/Patient &/or Family/Architect, Discussing w/Consultants and Arranging Admission or Transfer Discharge Plan Dx/Rx/DC Orders Clinical Impression: Obstructive pneumonia, Microcytic anemia, Acute on chronic anemia, Exertional dyspnea, Elevated troponin, Sinus tachycardia seen on threat monitoring analyst, Hypercalcemia, Lung cancer Disposition Disposition: Acute Care Hospital [facility] What to do if you have Problems For any increased pain, shortness of breath, bleeding, nausea or vomiting, chestpain, or any unexpected problems, contact your Primary Care Provider. Call [facility] ([phone]) or report to the closest Emergency Room. Call 911 if necessary. 05/11/251840 <Electronically signed by Monty Clarke MD> Cosigner Signature (if applicable): CC: SID Haji ~ Signed [facility] Work Phone: 1(520) 558-272406-17-2025 Evaluation note* Diagnosis Onset Date Resolution Status Admit Date Elevated troponin acute May 112024 7:20pm Exertional dyspnea acute April 252024 7:20pm Hypercalcemia acute May 11, 2025 7:20pm Microcytic anemia acute May 112024 7:20pm Obstructive pneumonia acute Jamey e 2024 7:20pm Sinus tachycardia seen on threat monitoring analyst acute May 11, 2025 7:20pm Acute on chronic anemia chronic J une 2024 7:20pm [facility] Work Phone: 1(847) 953-562806-10-2025 Radiology Diagnostic study note [facility] Imaging Services [address] [place] [address] Brain/Head without Contrast MR#: [id number] Acct: [id number] Name: ITZEL ALONZO Rep #: [id number] : 1950 M 74 From: Bert Sloan MD PCP: Carlene Haji, POWER BARKER OPERATOR-C Status: REG ER Study:Brain/Head without Contrast Date of Exa m: 05/04/25 Exam# [id number] Ordering Dr: Ike Dawson DO PROCEDURE: BRAIN/HEAD [...] or other acute process noted. Reading Location: [address] CC: POWER BARKER OPERATOR-C Carlene Haji; Dr. Ike Dawson DO ~ Electronic Communications Technician: Signed [facility]06-10-2025 Radiology Diagnostic study note [facility] Imaging Services [address] [place], [place] [address] Spine Cervical without Contras MR#: [id number] Acct: [id number] Name: ITZEL ALONZO Rep #: [id number] : 1950 M 74 From: Juan Miguel Snatos MD PCP: Carlene Haji, POWER BARKER OPERATOR-C Status: REG ER Study:Spine Cervical without Contras Date of Exam: 05/04/25 Exam# [id number] Ordering Dr: Ike Dawson DO PROCEDURE: SPINE [...] Right upper lobe pulmonary mass. Reading Location: [facility] CC: POWER BARKER OPERATOR-C Carlene Haji; Dr. Ike Dawson DO ~ Electronic Communications Technician: Signed [facility]06-10-2025 Radiology Diagnostic study note [facility] Imaging Services [address] [place] [address] Chest without Contrast MR#: [id number] Acct: [id number] Name: ITZEL ALONZO Rep #: [id number] : 1950 M 74 From: Juan Miguel Santos MD PCP: SID Haro Status: REG ER Study:Chest without Contrast Date of Exam: 05/04/25 Exam# [id number] Ordering Dr: Ike Dawson DO PROCEDURE: CHEST [...] at the right lung base. Reading Location: [facility] CC: SID Haji; Dr. Ike Dawson DO ~ Electronic Communications Technician: Signed [facility]06-10-2025 Radiology Diagnostic study note [facility] Imaging Services [address] [place], [place] [address] Shoulder min 2 Views MR#: [id number] Acct: [id number] Name: ITZEL ALONZO Rep #: [id number] : 1950 M 74 From: Juan Miguel Santos MD PCP: Carlene Haji, POWER BARKER OPERATOR-C Status: REG ER Study:Shoulder min 2 Views Date of Exam: 05/04/25 Exam# [id number] Ordering Dr: Ike Dawson DO PROCEDURE: SHOULDER [...] Correlation witha CT scan recommended. Reading Location: [facility] CC: SID Haji; Dr. Ike Dawson DO ~ Electronic Communications Technician: Signed [facility]05-30-2025 Radiology Diagnostic study note [facility] Imaging Services [address] [place] [address] STROKE CTA Head AND Neck W/Con MR#: [id number] Acct: [id number] Name: ITZEL ALONZO Rep #: [id number] : 1950 M 74 From: Oswald Perez MD PCP: Carlene Haji, POWER BARKER OPERATOR-C Status: REG ER Study:STROKE CTA Head AND Neck W/Con Date of Exam: 04/23/25 Exam# [id number] Ordering Dr: Steven Tejeda DO PROCEDURE: STROKE [...] occluded similar to the prior CTA. Anatomy: [place] anatomy is normal. Aneurysm or [...] apical mass suspicious for malignancy. Reading Location: [id number] CC: SID Haji; Dr. Steven Tejeda DO ~ Electronic Communications Technician: Signed [facility]05-30-2025 Radiology Diagnostic study note [facility] Imaging Services [address] [place], [place] [address] Chest 1 View (Portable) MR#: [id number] Acct: [id number] Name: ITZEL ALONZO Rep #: [id number] : 1950 M 74 From: Oswald Perez MD PCP: LUIS MIGUEL HaroC Status: REG ER Study:Chest 1 View (Portable) Date of Exam: 04/23/25 Exam# [id number] Ordering Dr: Steven Tejeda DO PROCEDURE: CHEST [...] regions which may represent adenopathy. Reading Location: [id number] CC: POWER BARKER OPERATOR-C Carlene Haji; Dr. Steven Tejeda, ~ Electronic Communications Technician: Signed [facility]05-30-2025 Radiology Diagnostic study note [facility] Imaging Services [address] [place] [address] STROKE Brain/Head without Cont MR#: [id number] Acct: [id number] Name: ITZEL ALONZO Rep #: [id number] : 1950 M 74 From: Oswald Perez MD PCP: Carlene Haji, IKE-C Status: REG ER Study:STROKE Brain/Head without Cont Date of Exam: 04/23/25 Exam# [id number] Ordering Dr: Steven Tejeda DO PROCEDURE: STROKE [...] atrophy and chronic microvascular ischemia. Reading Location: [id number] CC: POWER BARKER OPERATOR-René Haji; Dr. Steven Tejeda, DO ~ Electronic Communications Technician: Signed [facility] Author Anthony Salgado [facility] Note Date/Time May 13, 2025 2:00 pm [facility] Medical Records Department [address] [place] [address] Discharge Summary 05/13/25 1257 MR#: [id number] Acct: [id number] Name: ITZEL ALONZO Rep #:[id number] : 1950 74 From: Anthony Kiser PCP: SID Haro Status:ADM IN Location: [place] [address] Providers Date of Admission: 05/11/25 Primary Care [...] Patient is a 74-year-old male who presented [facility] ED on 05/11/2025 with worsening fatigue, weakness and confusion. 1. Large right-sided lung cancer with suspected postobstructive pneumonia ? Admit under inpatient status to PCU. Patient with known history of large right-sided lung cancer. Chest x-ray on admit with concern for acute postobstructive pneumonia in setting of lung cancer. Stable on room air at rest. Patient has established oncologist Dr. Lake, [facility]. I myself tried to contact through the transfer line 2 times but unsuccessful. Discussed with the porter sample case. [facility] before transfer. In [...] As plan is for transfer to the OR, will hold on GI consult for now. [...] code, verified Expected disposition: Likely transfer to OR Patient is being transferred to OR Hospital for further care and decision makingregarding [...] lung cancer, exact sampler/tissue type unclear. Follows OR oncologist, await path . Because of transportation [...] 75.7 H, Lymph % (Auto) 16.4 L, [place] % (Auto) 6.5, Eos % (Auto) 0.9, [...] mass. No acute intracranial process. Reading Location: [id number] D/C Instructions DC O2, CPAP, BIPAP Needs [...] (Reason: constipation) Referrals / Follow Up: Carlene Haji NP-C [Primary Care Provider] - Disposition Discharge Orders: Discharge Patient (Routine); Ordered 05/12/25 Ordered By: Dr. Anthony Salgado Charges/Coding Visit Charges Inpatient E&M: 22187 Disch Hosp >30min 05/13/25 1400 <Electronically signed by Anthony Salgado MD> Cosigner Signature (if applicable): CC: POWER BARKER OPERATOROnurC Carlene Haji; Dr. Anthony Salgado MD~ Signed [facility] Work Phone: Evaluation noteNo assessment information available [facility] Work Phone: History and physical note Author Johanne Evans [facility] Note Date/Time July 03, 2025 11: 21pm [facility] Medical Records Department [address] [place] [address] H&P Exam - Hospitalist 07/03/252236 MR#: [id number] Acct: [id number] Name: ITZEL ALONZO Rep #:[id number] : 1950 75 From: Johanne Evans MD PCP: SID Haro Status:ADM IN [facility] HPI - General General Date of Admission: 07/03/25 Date of Service: 07/03/25 Chief Complaint: Fall, R hip pain. HPI Narrative The patient is a 75 y/o M w/ PMHx: CKD stage II per GFR trending, RLS, Cirrhosisassociated with hepatitis unclear specific type, Diabetes mellitus type II with chronic neuropathy, Anxiety and Depression, GERD, Hx CVA, Chronic anemia, Formertobacco use, COPD, recent transfer to the OR from [facility] on 05/13/25 following largeright-sided lung cancer wit suspected postobstructive pneumonia with acute metabolic encephalopathy suspected secondary to hypercalcemia of malignancy in addition to acute on chronic anemia with suspected upper GI bleed for further evaluation who now presents to the [facility] ED on 07/03/2025 with onset of right hip discomfort reportedly following a fall onto the right hip with pain worse with any movement described as sharp, stabbing with inability to ambulate or stand/bear weight with no associated paresthesias nor any head trauma or loss of consciousness but given ongoing pain prompted ED evaluation. Prior to ED arrival patient reported pain 10 out of 10 to the righthip and upon hospitalist evaluation following ED intervention reported pain decreased to 6-7 out of 10 in severity. Workup in the ED included T98.7, heart rate 113, BP 185/93, respiratory rate 18, 95% on room air, plain film of the right hip and pelvis with a fracture the right greater trochanter extending intothe intertrochanteric line with malignancy unable to be excluded, CT right hip and pelvis with acute moderately commuted and impacted right intertrochanteric femoral fracture with no aggressive osseous lesions identified, CBC with WBC 12.7, hemoglobin 8.4, MCV 70.6, platelet 300 with left shift and lymphopenia, coags with PT 15.5, INR 1.2, PTT 22.7, BMP carbon dioxide 20.2, BUN/creatinine 14/0.86, GFR 89, glucose 204, urinalysis unremarkable, EKG with ST with nonspecific ST-T changes with no acute evidence of ischemia. In the ED patientministered 1 L normal saline, morphine 4 mg IV x 1. ED discussed case with orthopedic surgeon Dr. Campbell who recommended CT and if there is no evidence of acute osseous lesion would plan to admit to [facility] and evaluate for repair of hip fracture. [facility] Medical History (Updated 07/03/25 @ 23:[address] Johanne Evans MD) CKD (chronic kidney disease), stage II Chronic anemia Cancer of right lung Anxiety and depression GERD (gastroesophageal reflux disease) Cirrhosis Former smoker TIA (transient ischemic attack) Kidney stones Neuropathy PTSD (post-traumatic stress disorder) Hepatitis COPD (chronic obstructive pulmonary disease) Hypertension Diabetes Home Medications ?Medication ?Instructions ?Recorded ?Last Taken ?Type gabapentin 300 mg capsule 300 mg PO TID neuropathy 01/09 Unknown History amlodipine 5 mg tablet 5 mg PO QHS blood pressure 0 05/09/21 Unknown History aspirin 81 mg tablet,delayed 81 mg PO DAILY heart heal th 05/09/21 Unknown History release 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 Johanne Evans MD) household members: none housing: apartment Smoking Status: Current some day smoker tobacco type: cigarettes and cigars alcohol intake: never substance use type: does not use ROS ROS Narrative Admission Review of Systems: CONSTITUTIONAL: No weight loss, fever, chills, + weakness or fatigue. HEENT: Eyes: No visual loss, blurred vision, double vision or yellow sclerae. Ears, Nose, Throat: No hearing loss, sneezing, congestion, runny nose or sore throat. SKIN: No rash or itching, lesions, wounds except + occasional abrasion. CARDIOVASCULAR: No chest pain, chest pressure or chest discomfort, palpitations,edema, orthopnea, syncopal events. RESPIRATORY: + Chronic cough. No marked dyspnea or productive sputum sputum, wheezing, hemoptysis. GASTROINTESTINAL: No anorexia, nausea, vomiting or diarrhea, abdominal pain, melena, BRBPR. GENITOURINARY: No dysuria, frequency, urgency or retention. NEUROLOGICAL: No headache, dizziness, syncope, paralysis, ataxia, numbness or tingling in the extremities, focal weakness, change in bowel or bladder control,seizure. MUSCULOSKELETAL: + muscle, back pain, joint pain or stiffness. HEMATOLOGIC: + Chronic anemia, no marked history of easy bleeding/bruising. LYMPHATICS: No enlarged nodes. No history of splenectomy. PSYCHIATRIC: + History of anxiety and depression. ENDOCRINOLOGIC: No reports of sweating, cold or heat intolerance. No polyuria orpolydipsia. ALLERGIES: No history of asthma, hives, eczema or rhinitis. Vital Signs Vital Signs Vital Signs: 07/03/25 19:10 07/03/25 21:09 Temperature 98.7 F Temperature Source Oral Pulse Rate 113 H 116 H Respiratory Rate 18 20 H Blood Pressure 185/93 H 160/98 H Blood Pressure Mean 123 118 Pulse Ox 95 93 Oxygen Delivery Method Room Air Room Air Weight Weight: 143 lb 1.28 oz Body Mass Index (BMI) 18.8 Physical Exam Narrative Physical Examination: General: Awake, alert, oriented x 3 and cooperative, laying in the ED bed, ratesright hip discomfort 7 out of 10 in severity Skin: Normal color, normal turgor, no icterus, no cyanosis except occasional abrasion. HEENT: AT/NC, EOMI, PERRLA, mildly dry MM, missing several teeth, no carotid bruits or JVD noted. Lungs: Diminished, greater bases, appropriate effort, no appreciated rales, ronchi or wheezing. Heart: Mildly tachycardic with regular rhythm; no gallop, rub audible. Abdomen: Soft, thin habitus, NTTP, ND, mildly hyperactive BS, + HM. Extremities: No cyanosis, no clubbing, no significant distal edema, distal pulses intact, status post fall with right hip fracture. Neurological: Patient awake, alert, oriented as noted, cognitive function intact; pupils equally reactive to light and accommodation, cranial nerves grossly normal, moving all 4 extremities except expected limitation given fall with right hip fracture, strength severely globally decreased Psychiatric: Affect appears fatigued, uncomfortable, flat, no acute evidence of depressive or anxiety feelings but does have underlying psychiatric history. Results Lab / Micro Data 08/09/25 21:46 07/03/25 21:46 Labs: Laboratory Results - last 24 hr 07/03/25 21:43: Urine Color Yellow, Urine Clarity Clear, Urine pH 6.0, Ur Specific [place] 1.010, Urine Protein 100 H, Urine Glucose (UA) 100 H, Urine Ketones Negative, Urine Occult Blood 10 H, Urine Nitrite Negative, Urine Bilirubin Negative, Urine Urobilinogen Normal, Ur Leukocyte Esterase Negative, Urine RBC 0-5 SEEN, Urine WBC 0-5 SEEN, Ur Squamous Epith Cells 0-5 SEEN, Urine Bacteria RARE, Hyaline Casts 0-5 SEEN, Urine Mucus 0 SEEN 07/03/25 21:46: WBC 12.7 H, RBC 3.95 L, Hgb 8.4 L, Hct 27.9 L, MCV 70.6 L, MCH 21.3 L, MCHC 30.1 L, RDW Std Deviation 56.9 H, RDW Coeff of Tiffany 22.6 H, Plt Count 300, MPV 9.1, Immature Gran % (Auto) 0.500, Neut % (Auto) 90.1 H, Lymph % (Auto) 6.3 L, [place] % (Auto) 2.8, Eos % (Auto) 0.1, Baso % (Auto) 0.2, Absolute Neuts (auto) 11.4 H, Absolute Lymphs (auto) 0.80 L, Nucleated RBC % 0, PT 15.5 H, INR 1.2, APTT 22.7 L Imaging Radiology Impression Hip/Pelvis X-Ray 07/03/25 20:20 IMPRESSION: Fracture of the right greater trochanter, extending into the intertrochanteric line. Malignancy can not be excluded. Reading Location: [facility] Lower Extremity CT 07/03/25 21:54 IMPRESSION: Acute, moderately comminuted and impacted right intertrochanteric femoral fracture. No aggressive osseous lesions. Reading Location: [facility] Assessment & Plan Assessment/Plan (1) Closed intertrochanteric fracture of right hip: (2) Fall: PLAN: Plan The patient is a 75 y/o M w/ PMHx: CKD stage II per GFR trending, RLS, Cirrhosisassociated with hepatitis unclear specific type, Diabetes mellitus type II with chronic neuropathy, Anxiety and Depression, GERD, Hx CVA, Chronic anemia, Formertobacco use, COPD, [facility]25 following largeright-sided lung cancer wit suspected postobstructive pneumonia with acute metabolic encephalopathy suspected secondary to hypercalcemia of malignancy in addition to acute on chronic anemia with suspected upper GI bleed for further evaluation who now presents to the [facility] ED on 07/03/2025 with onset of right hip discomfort reportedly following a fall onto the right hip with pain worse with any movement described as sharp, stabbing with inability to ambulate or stand/bear weight with no associated paresthesias nor any head trauma or loss of consciousness but given ongoing pain prompted ED evaluation. #1. General debility, right hip pain s/p mechanical fall w/ fracture of the right greater trochanter extending into the intertrochanteric line: Orthopedic surgery consulted from ED. CT right hip and pelvis obtained additionally with noted with acute moderately commuted and impacted right intertrochanteric femoral fracture with no aggressive osseous lesions identified Will admit to [facility], maintain NPO, judiciously administer IVFs, epperson placement, monitor I/Os, frequent positioning, fall precautions, T+S requested, as needed pain, anti-emetic regimen. PT/OT following operative intervention. CM consulted for discharge planning. Per NSQIP patient with at least moderate risk likely more so elevated above thisgiven his underlying significant comorbidities and active cancer with ongoing chemotherapy. EKG with ST with nonspecific ST-T changes with no acute evidenceof ischemia. Most recent echocardiogram noted 05/11/2021 with EF 60%, normal diastole for age, moderate focal AV calcification. Will obtain BMP and if this is elevated low threshold to obtain repeat echo and request cardiology preoperative evaluation. #2. Right sided lung cancer (suprahilar, unclear exact specific type) with associated hypercalcemia of malignancy with [facility] evaluation: [facility], from discussion with patient and significant difficulty with transportation and receiving chemotherapy, setting up visits, magnesium and phosphorus levels requested, encouraged continued [facility] with the [facility] as previously [facility]. #3. Chronic microcytic anemia, recent GI bleed presentation: Admission hemoglobin 8.4, MCV 70.6, baseline hemoglobin more recently 7-8, has trended down since 2023, from current list does not appear to be on iron supplementation, will obtain iron panel, ferritin, trend CBC. Pending results may be appropriate for course of IV iron transition to oral regimen. #4. Hx CVA: Patient with previous acute right posterior parietal lobe infarct with associated 50 to 69% narrowing of the left internal carotid artery at that time, will continue aspirin, statin, hypertensive regimen, diabetic regimen withadjustments as able. #5. Chronic Kidney Disease Stage II per GFR trend: Admission BUN/Cr 14/0.86, GFR 89, baseline renal function 0.9-1.2 primarily, repeat BMP in AM. #6. Diabetes mellitus type II with chronic neuropathy: Hold oral home regimen, continue home insulin regimen, ADA diet until NPO status, accu checks w/ ISS, continue home gabapentin regimen. #7. 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 #8. Anxiety and depression: Per current list does not appear to be on regimen, encourage continued follow-up outpatient for further evaluation. #9. Hypertension: Continue home regimen including amlodipine, PRN hydralazine. #10. Hyperlipidemia: Will continuation of statin therapy. #11. Chronic COPD: Will temporally hold home inhaler and in the interim maintain on ATC budesonide therapy, PRN albuterol, HOB, IS parameters. #12. GERD: Per current list on a regimen, will have as needed Mylanta regimen. #13. Tobacco Abuse: Patient notes that he occasionally still has a cigarette but not all the time and not daily, encouraged cessation, inpatient consultationper RT, NR if desired. #14. Restless leg syndrome: Will continue patient on Requip regimen. #15. Severe protein calorie malnutrition: BMI reduced, obvious muscle and fat loss, significant underlying morbidities including active cancer on chemotherapy, mag and Phos requested, nutrition consulted for recommendations. #16. DVT prophylaxis: SCDs given pending orthopedic surgery evaluation for operative intervention. #17. CODE status: Patient HCPOA and living will are not in place but he notes his daughter will be his medical decision-maker if necessary. Discussed CODE status at length including difference between FULL code, DNR-CCA and DNR-CC status. Following discussions about the differences in these status, requested Full Code status. Did frankly discuss patient underlying health history, comorbidities and prognosis if cardiopulmonary event should arise any understands that the likelihood of a good outcome would be low. Advanced Care Planning Face to Face Time: 16 minutes. Charges/Coding Visit Charges Inpatient E&M: 17225 Init Hosp L3 Procedures Hospitalists Procedures: 88952 Advncd Care Plan 30 Min 07/03/25 1521 <Electronically signed by Johanne Evans MD> Cosigner Signature (if applicable): CC: POWER BARKER OPERATORNissa Haji; Dr. Johanne Evans MD~ Signed [facility] Work Phone: Hospital Discharge instructions Additional Instructions Your workup today indicates your dizziness is most likely from peripheral vertigo. Take the Valium as directed to help control any recurrent dizzy symptoms. Return to the ER should you have any further concerns. You may continue all of your other home medications as directed by your doctorWOhioHealth [facility] Work Phone: Hospital Discharge instructions Additional [...] you. Use tramadol as needed for pain control.[facility] Work Phone: Hospital Discharge instructionsAdditional Instructions There is a microscopic amount of blood in your urine but your hemoglobin level is stable. This is your red blood cell count. At this time I recommend you still continue the Eliquis because this is to prevent blood clots after surgery. If you have worsening symptoms like if your urine becomes more bloody or you have clots or are unable to urinate then please come back to the ER.[facility] Work Phone: Reason for referral (narrative)No reason for referral information availableWOhioHealth Van [facility] Work Phone: Chief Complaint and Reason [...] UPPER G IB May 13, 2025 12:57pm FALL, R HIP FX July 03, 2025 10: 54pm Reason for Visit Admit Date Elevated troponin [...] on chronic anemia May 11, 2025 7:20pm Closed intertrochanteric fracture of rig ht hip July 03, 2025 10:54pm Fall July 03, 2025 10: 54pm Chief Complaint Admit Date neuro symptoms April 23, 2025 9:00p m Fall May 04, 2025 11:1 2am HYPER CO OF MALIGNANCY SUSPECTED UPPER G IB May 11, 2025 7:20pm HYPER CO OF MALIGNANCY SUSPECTED UPPER G IB May 12, 2025 9:35am HYPER CO OF MALIGNANCY SUSPECTED UPPER G IB May 13, 2025 12:57pm FALL, R HIP FX July 03, 2025 10: 54pm FALL, R HIP FX July 04, 2025 7: 21am FALL, R HIP FX July 05, 2025 4: 34pm FALL, R HIP FX July 06, 2025 10 :07am FALL, R HIP FX July 07, 2025 2: 01pm Chief Complaint Admit Date neuro symptoms April 23, 2025 9:00p m Fall May 04, 2025 11:1 2am HYPER CO OF MALIGNANCY SUSPECTED UPPER G IB May 11, 2025 7:20pm HYPER CO OF MALIGNANCY SUSPECTED UPPER G IB May 12, 2025 9:35am HYPER CO OF MALIGNANCY SUSPECTED UPPER G IB May 13, 2025 12:57pm FALL, R HIP FX July 03, 2025 10: 54pm FALL, R HIP FX July 04, 2025 7: 21am FALL, R HIP FX July 05, 2025 4: 34pm FALL, R HIP FX July 06, 2025 10 :07am FALL, R HIP FX July 07, 2025 2: 01pm gu July 08, 2025 10 :55am Advance Directives No Advanced Directives Records Found Advance Directive Response Recorded Date/ Time Do you have a Healthcare Power of Human Resources Operations Coordinator? No April 23, 2025 9:07pm Advance Directive Response Recorded Date/ Time Do you have a Healthcare Power of Human Resources Operations Coordinator? No May 04, 2025 11:25am Do you have a Healthcare Power of Human Resources Operations Coordinator? No April 23, 2025 9:07pm Advance Directive Response Recorded Date/ Time Do you have a Healthcare Power of Human Resources Operations Coordinator? No May 04, 2025 11:25am Do you have a Healthcare Power of Human Resources Operations Coordinator? No May 11, 2025 2:29pm Do you have a Healthcare Power of Human Resources Operations Coordinator? No April 23, 2025 9:07pm Advance Directive Response Recorded Date/ Time Do you have a Healthcare Power of Human Resources Operations Coordinator? No May 04, 2025 11:25am Do you have a Healthcare Power of Human Resources Operations Coordinator? No May 11, 2025 8:16pm Do you have a Healthcare Power of Human Resources Operations Coordinator? No April 23, 2025 9:07pm Advance Directive Response Recorded Date/ Time Do you have a Healthcare Power of Human Resources Operations Coordinator? No May 04, 2025 11:25am Do you have a Healthcare Power of Human Resources Operations Coordinator? No May 11, 2025 8:16pm Do you have a Healthcare Power of Human Resources Operations Coordinator? No April 23, 2025 9:07pm Do you have a Healthcare Power of Human Resources Operations Coordinator? No July 03, 2025 7:10pm Advance Directive Response Recorded Date/ Time Do you have a Healthcare Power of Human Resources Operations Coordinator? No May 04, 2025 11:25am Do you have a Healthcare Power of Human Resources Operations Coordinator? No May 11, 2025 8:16pm Do you have a Healthcare Power of Human Resources Operations Coordinator? No April 23, 2025 9:07pm Do you have a Healthcare Power of Human Resources Operations Coordinator? Yes July 04, 2025 12:20am Advance Directive Response Recorded Date/ Time Do you have a Healthcare Power of Human Resources Operations Coordinator? No May 04, 2025 11:25am Do you have a Healthcare Power of Human Resources Operations Coordinator? No May 11, 2025 8:16pm Do you have a Healthcare Power of Human Resources Operations Coordinator? No April 23, 2025 9:07pm Do you have a Healthcare Power of Human Resources Operations Coordinator? Yes July 04, 2025 12:20am Do you have a Healthcare Power of Human Resources Operations Coordinator? Yes July 08, 2025 10:58am Summary Purpose Family History No Family History Records Found Additional Source Comments Care Teams (unrecognized sec tion and content) Team Status: Active Member Role Status Dates SID Haro Primary Care Provider Active Team Status: Inactive Member Role Status Dates Dr. Steven Tejeda DO Emergency Provider Active Start: April 23, 2025 End: April 24, 2025 Carleneelly Haji , POWER BARKER OPERATOR-C Primary Care Provider Active Start: April 23, 2025 End: April 24, 2025 Team Status: Inactive Member Role Status Dates Dr. Steven Tejeda DO Attending Provider Active Start: April 23, 2025 End: April 24, 2025 Dr. Steven Tejeda , Emergency Provider Active Start: April 23, 2025 End: April 24, 2025 Carlene Sonya Haji , POWER BARKER OPERATOR-C Primary Care Provider Active Start: April 23, 2025 End: April 24, 2025 Team Status: Inactive Member Role Status Dates Carleneelly Haji , POWER BARKER OPERATOR-C Primary Care Provider Active Start: May 04, 2025 End: May 04, 2025 Dr. Ike Dawson DO Emergency Provider Active Start : May 04, 2025 End: May 04, 2025 Team Status: Inactive Member Role Status Dates Carleneelly Haji , POWER BARKER OPERATOR-C Primary Care Provider Active Start: May 04, 2025 End: May 04, 2025 Dr. Ike Dawson DO Attending Provider Active Start : May 04, 2025 End: May 04, 2025 Dr. Ike Dawson DO Emergency Provider Active Start : May 04, 2025 End: May 04, 2025 Team Status: Active Member Role Status Dates Carleneelly Haji , POWER BARKER OPERATOR-C Primary Care Provider Active Start: May 11, 2025 Dr. Monty Clarke MD Emergency Provider Active Sta rt: May 11, [address] Stanley DO Admit Provider Active Start: May 11, [address] Stanley DO Attending Provider Active Start: May 11, 2025 Team Status: Inactive Member Role Status Dates Carlene Haji , POWER BARKER OPERATOR-C Primary Care Provider Active Start: May 11, [...] Member Role Status Dates Carlene Haji , POWER BARKER OPERATOR-C Primary Care Provider Active Start: May 12, [...] Member Role Status Dates Carlene Haji , POWER BARKER OPERATOR-C Primary Care Provider Active Start: May 13, [...] Provider Active Sta rt: May 13, 2025 Team Status: Active Member Role/Relationship Status Dates Carleneelly Haji , POWER BARKER OPERATOR-C Primary Care Provider Active Team Status: Inactive Member Role/Relationship Status Dates Dr. Steven Tejeda DO Attending Provider Active Start: April 23, 2025 End: April 24, 2025 Dr. Steven Tejeda DO Emergency Provider Active Start: April 23, 2025 End: April 24, 2025 Carleneelly Haji , POWER BARKER OPERATOR-C Primary Care Provider Active Start: April 23, 2025 End: April 24, 2025 Team Status: Inactive Member Role/Relationship Status Dates Carlene Haji , POWER BARKER OPERATOR-C Primary Care Provider Active Start: May 04, 2025 End: May 04, 2025 Dr. Ike Dawson DO Attending Provider Active Start : May 04, 2025 End: May 04, 2025 Dr. Ike Dawson DO Emergency Provider Active Start : May 04, 2025 End: May 04, 2025 Team Status: Inactive Member Role/Relationship Status Dates Carleneelly Haji , POWER BARKER OPERATOR-C Primary Care Provider Active Start: May 11, [...] May 13, 2025 Team Status: Active Member Role/Relationship Status Dates Carlene Haji , POWER BARKER OPERATOR-C Primary Care Provider Active Start: May 12, [...] May 12, 2025 Team Status: Active Member Role/Relationship Status Dates Carlene Haji , POWER BARKER OPERATOR-C Primary Care Provider Active Start: May 13, 2025 Dr. Monty Clarke MD Emergency Provider Active Sta rt: May 13, [address] tSanley DO Admit Provider Active Start: May 13, [address] Stanley DO Other Provider Active Start: May 13, 2025 Dr. Anthony Salgado MD Attending Provider Active Start: May 13, 2025 Dr. Anthony Salgado MD Other Provider Active Sta rt: May 13, 2025 Team Status: Active Member Role/Relationship Status Dates Carlene Haji POWER BARKER OPERATOR-C Primary Care Provider Active Start: July 03, 2025 Dr. Steven Tejeda DO Emergency Provider Active Start: July 03, 2025 Dr. Johanne Evans MD Admit Provider Active St art: July 03, 2025 Dr. Johanne Evnas MD Attending Provider Active Start: July 03, 2025 Dr. Johanne Evans MD Other Provider Active St art: July 03, 2025 Team Status: Inactive Member Role/Relationship Status Dates Carlene Haji POWER BARKER OPERATOR-C Primary Care Provider Active Start: July 03, 2025 End: July 07, 2025 Dr. Steven Tejeda , Emergency Provider Active Start: July 03, 2025 End: July 07, 2025 Dr. Johanne Evans MD Admit Provider Active St art: July 03, 2025 End: July 07, 2025 Dr. Johanne Evans MD Other Provider Active St art: July 03, 2025 End: July 07, 2025 Dr. Nuno Campbell MD Other Provider Active Sta rt: July 03, 2025 End: July 07, 2025 Dr. Anthony Salgado MD Attending Provider Active Start: July 03, 2025 End: July 07, 2025 Dr. Uche Felix MD Other Provider Active Star t: July 03, 2025 End: July 07, 2025 Team Status: Active Member Role/Relationship Status Dates Carlene Haji POWER BARKER OPERATOR-C Primary Care Provider Active Start: July 04, 2025 Dr. Steven Tejeda DO Emergency Provider Active Start: July 04, 2025 Dr. Johanne Evans MD Admit Provider Active St art: July 04, 2025 Dr. Johanne Evans MD Other Provider Active St art: July 04, 2025 Dr. Nuno Campbell MD Other Provider Active Sta rt: July 04, 2025 Dr. Uche Felix MD Attending Provider Active Start: July 04, 2025 Dr. Uche Felix MD Other Provider Active Star t: July 04, 2025 Team Status: Active Member Role/Relationship Status Dates Carlene Haji POWER BARKER OPERATOR-C Primary Care Provider Active Start: July 05, 2025 Dr. Steven Tejeda DO Emergency Provider Active Start: July 05, 2025 Dr. Johanne Evans MD Admit Provider Active St art: July 05, 2025 Dr. Johanne Evans MD Other Provider Active St art: July 05, 2025 Dr. Nuno Campbell MD Other Provider Active Sta rt: July 05, 2025 Dr. Anthony Salgado MD Attending Provider Active Start: July 05, 2025 Dr. Anthony Salgado MD Other Provider Active Sta rt: July 05, 2025 Dr. Uche Felix MD Other Provider Active Star t: July 05, 2025 Team Status: Active Member Role/Relationship Status Dates Carlene Haji NP-C Primary Care Provider Active Start: July 06, 2025 Dr. Steven Tejeda DO Emergency Provider Active Start: July 06, 2025 Dr. Johanne Evans MD Admit Provider Active St art: July 06, 2025 Dr. Johanne Evans MD Other Provider Active St art: July 06, 2025 Dr. Nuno Campbell MD Other Provider Active Sta rt: July 06, 2025 Dr. Anthony Salgado MD Attending Provider Active Start: July 06, 2025 Dr. Anthony Salgado MD Other Provider Active Sta rt: July 06, 2025 Dr. Uche Felix MD Other Provider Active Star t: July 06, 2025 Team Status: Active Member Role/Relationship Status Dates Carlene Haji NP-C Primary Care Provider Active Start: July 07, 2025 Dr. Steven Tejeda DO Emergency Provider Active Start: July 07, 2025 Dr. Johanne Evans MD Admit Provider Active St art: July 07, 2025 Dr. Johanne Evans MD Other Provider Active St art: July 07, 2025 Dr. Nuno Campbell MD Other Provider Active Sta rt: July 07, 2025 Dr. Anthony Salgado MD Attending Provider Active Start: July 07, 2025 Dr. Anthony Salgado MD Other Provider Active Sta rt: July 07, 2025 Dr. Uche Felix MD Other Provider Active Star t: July 07, 2025 Team Status: Inactive Member Role/Relationship Status Dates Carlene Haji NP-C Primary Care Provider Active Start: July 08, 2025 End: July 08, 2025 Dr. Monty Clarke MD Emergency Provider Active Sta rt: July 08, 2025 End: July 08, 2025 Goals (unrecognized section and content) Goals may be documented in a n alternate sectionGoals may be documented in an alternate sectionGoals may be documented in an alternate section (unrecognized sect ion and content) No Status Records Found INFORMATION SOURCE (unrecogn ized section and content) DATE CREATED AUTHOR 07/08/2025 [facility] FOR RECORDS PERTAINING TO PATIENTS WHO ARE [...] BE BASED ON THE PRIMARY CLINICAL RECORDS. [employer] [facility]. provides no warranty or guarantee of the accuracy or completeness of information in this document.
== END 2025-07-08 15:15 | disposition home or self-care (01) ==
PROVIDERS: Physician Assistant; Emergency Provider Emergency Medicine; PCP Nurse Practitioner Gerontology; Visit Provider Emergency Medicine
DX: R31.9 Hematuria, unspecified (principal); J44.9 Chronic obstructive pulmonary disease, unspecified; E11.40 Type 2 diabetes mellitus with diabetic neuropathy, unspecified; E11.22 Type 2 diabetes mellitus with diabetic chronic kidney disease; Z79.4 Long term (current) use of insulin; Z92.3 Personal history of irradiation; E78.5 Hyperlipidemia, unspecified; I10 Essential (primary) hypertension; G89.18 Other acute postprocedural pain; Z96.641 Presence of right artificial hip joint; Z85.118 Personal history of other malignant neoplasm of bronchus and lung; Z79.82 Long term (current) use of aspirin; Z79.899 Other long term (current) drug therapy; Z79.51 Long term (current) use of inhaled steroids; K21.9 Gastro-esophageal reflux disease without esophagitis; Z90.49 Acquired absence of other specified parts of digestive tract; F17.210 Nicotine dependence, cigarettes, uncomplicated; F17.290 Nicotine dependence, other tobacco product, uncomplicated
CPT/HCPCS: 80048; 81001; 85025; 99285; P9612

== ENCOUNTER 2025-08-06 00:45 | Emergency (ER) | payer OTHER, SELFPAY ==
[2025-08-06 00:47] VITALS: BP 135/78; PULSE 102; RESP 18; TEMP 36.6; O2SAT 96; BMI 18.1
--- NOTE | 2025-08-06 01:08 | CT_ITS ---
PROCEDURE: SPINE CERVICAL WITHOUT CONTRAS 08/06/2025 REASON FOR EXAM: FALL TECHNIQUE: Procedure Code: CTSPC Modality: CT Procedure: SPINE CERVICAL WITHOUT CONTRAS Coronal and Sagittal reconstruction series were provided. One or more dose reduction techniques were used (e.g., Automated exposure control, adjustment of the mA and/or kV according to patient size, use of iterative reconstruction technique. RADIATION DOSE SUMMARY: CTDlvol: 13.68 mGy DLP: 546 mGycm COMPARISON: 05/04/2025. FINDINGS: There are diffuse spondylotic changes. Findings are demonstrated to by diffuse disc space narrowing, osteophyte formation and degenerative endplate sclerosis. There is diffuse facet joint arthropathy with secondary bilateral neural foramina narrowing. No fracture or dislocation is seen. No aggressive lytic or blastic bony lesion is noted. Unchanged right upper lobe pulmonary mass. CT/Spine Cervical without Contras IMPRESSION: No CT evidence for acute abnormality. Reading [facility]
--- NOTE | 2025-08-06 01:08 | CT_ITS ---
PROCEDURE: EXTREMITY LOWER WITHOUT CONTRA 08/06/2025 REASON FOR EXAM: PAIN TECHNIQUE: Procedure Code: CTELWO Modality: CT Procedure: EXTREMITY LOWER WITHOUT CONTRA Coronal and Sagittal reconstruction series were provided. CONTRAST: None. One or more dose reduction techniques were used (e.g., Automated exposure control, adjustment of the mA and/or kV according to patient size, use of iterative reconstruction technique). RADIATION DOSE SUMMARY: CTDlvol: 16.85 mGy DLP: 575 mGycm COMPARISON: CT scan on 07/03/2025. FINDINGS: Mild osteopenia. Mild degenerative joint disease. Open reduction internal fixation of right intertrochanteric fracture in good alignment. No lytic or blastic aggressive bone lesion is noted. CT/Extremity Lower without Contra IMPRESSION: No CT evidence of an acute abnormality. Reading Location: [place] [id number]
--- NOTE | 2025-08-06 01:08 | CT_ITS ---
PROCEDURE: BRAIN/HEAD WITHOUT CONTRAST 08/06/2025 REASON FOR EXAM: FALL TECHNIQUE: Procedure Code: CTBR Modality: CT Procedure: BRAIN/HEAD WITHOUT CONTRAST Coronal and Sagittal reconstruction series were provided. One or more dose reduction techniques were used (e.g., Automated exposure control, adjustment of the mA and/or kV according to patient size, use of iterative reconstruction technique. COMPARISON: 05/12/2025. FINDINGS: No acute intracranial hemorrhage. 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 Mild generalized atrophy, unchanged. No fracture. The calvarium is intact. CT/Brain/Head without Contrast IMPRESSION: No acute intracranial CT abnormality. Stable chronic intracranial findings, as described above. Reading Location: [id number]
--- NOTE | 2025-08-06 01:08 | CT_ITS ---
PROCEDURE: SPINE LUMBAR WITHOUT CONTRAST 08/06/2025 REASON FOR EXAM: FALL TECHNIQUE: Procedure Code: CTSPL Modality: CT Procedure: SPINE LUMBAR WITHOUT CONTRAST Coronal and Sagittal reconstruction series were provided. One or more dose reduction techniques were used (e.g., Automated exposure control, adjustment of the mA and/or kV according to patient size, use of iterative reconstruction technique COMPARISON: None. RADIATION DOSE SUMMARY: CTDlvol: 12.24 mGy DLP: 308 mGycm FINDINGS: Mild osteopenia. There are diffuse spondylotic changes. Findings are demonstrated to by diffuse disc space narrowing, osteophyte formation and degenerative endplate sclerosis. There is diffuse facet joint arthropathy with secondary bilateral neural foramina narrowing. No fracture or dislocation is seen. No aggressive lytic or blastic bony lesion is noted. Moderate arthrosis. Calcified atheromatous plaques of the aorta and iliac arteries. CT/Spine Lumbar without Contrast IMPRESSION: No CT evidence of an acute traumatic abnormality. Reading Location[facility]
--- OUTSIDE RECORDS SUMMARY | 2025-08-06 01:10 | XMS RPT_ITS | CCD ---
Author Organization [facility] CliniSymt Care Team Providers Care Otolaryngologist Name Role Phone Dr. Steven Tejeda DO Emergency Provider Adithya EMPLOYMENT SERVICES DIRECTOR-C, Carlene Hassan Primary Care Provider Dr. Steven Tejeda DO Attending Provider Dr. Ike Dawson DO Emergency Provider Dr. Ike Dawson DO Attending Provider Dr. Monty Clarke MD Emergency Provider Dr. Lane Stanley DO Admit Provider Dr. Lane Stanley DO Attending Provider Dr. Lane Stanley DO Other Provider Damian HERBERT, Dr. Cruz Attending Provider Dr. Anthony Salgado MD Other Provider Cristina HERBERT, Dr. Johanne Jordan Admit Provider Cristina HERBERT, Dr. Johanne Jordan Attending Provider Cristina HERBERT, Dr. Johanne Jordan Other Provider [phone] Dr. Nuno Campbell MD Other Provider Elvira [...] Salgado Attending Unavailable Lane Stanley Consulting Unavailable [facility] Primary Care Unavailable Ike Dawson Attending Unavailable Johanne Evans Admitting Unavailable Johanne Evans Consulting Unavailable [facility] Primary Care Unavailable Anthony Salgado Attending Unavailable Nuno Campbell Consulting Unavailable Uche Felix Consulting Unavailable Anthony Salgado Consulting Unavailable Lane Stanley Consulting Unavailable Lane Stanley Admitting Unavailable [facility] Primary Care Unavailable Lane Stanley Attending Unavailable Anthony Salgado Attending Unavailable Anthony Salgado Consulting Unavailable Johanne Evans Attending Unavailable Uche Felix Attending Unavailable Monty Clarke Attending Unavailable [facility] Primary Care Unavailable [facility] [place] Primary Care Unavailable Juvencio Shen Attending Unavailable [...] inflamation docusate sodium 50 mg / sennosides, shelter 8.6 mg oral tablet (2 sources) Start: [...] 2025 12:00am heart burn polyethylene glycol [phone] mg powder for oral solution (2 sources) [...] Start: 05-09-2021 take 2 tablets by mo [facility] [place] at bedtime Amlodipine 5 mg Tablet Active [...] [Hyperglycemia, unspecified] 06-21-2024 Episodic E Codes: Fall (13 sources) Fall; Translations: [Unspecified fall, initial encounter] Onset: 5 05-04-2025 Episodic Fracture of neck of femur (hip) (8 sources) Closed intertrochanteric fracture; Translations: [Displaced intertrochanteric fracture of right femur, initial encounter for closed fracture] Onset: 5 07-03-2025 Episodic Genitourinary symptoms and ill-defined conditions (2 sources) Blood in urine; Translations: [Hematuria, unspecified] Onset: 5 07-08-2025 Episodic Nonspecific chest pain (7 sources) [...] Auto (Unsp spec) [#/Vol] 1.42 10*3/uL 0.83-4.51 [facility] Absolute neutrophil countOrd ered By: Marissa Rivera on 07-08-2025 Neutrophils (Bld) [#/Vol] 6.6 10*3/uL 2.0-7.7 [facility] Anion gap in Serum or Plasma Ordered By: Marissa Rivera on 07-08-2025 Anion gap [Moles/Vol] 9 mmol/L 5-15 [facility] Automated lymphocyte count a s percentage of total leukocytesOrdered By: Marissa Rivera on 07-08-2025 Lymphocytes/100 WBC Auto (Unsp spec) 16.1 % Low 19-41 [facility] BUN/creatinine ratioOrdered By: Marissa Rivera on 07-08-2025 Urea nitrogen/Creatinine [Mass ratio] 20.9 mg/mg High 10-20 [facility] Basic Metabolic Profile (BMP )on 07-08-2025 BUN/CRE 20.9 RATIO High 10-20 [facility] Comment on above: Performed By: #### L 501.080 #### [facility] [address] [place], [address] Calcium [Mass/Vol] 9.1 mg/dL Normal 7.6-11.0 [facility] Comment on above: Performed By: #### L 501.080 #### [facility] [address] [place], [address] Chloride [Moles/Vol] 102 mmol/L Normal 98-108 [facility] Comment on above: Performed By: #### L 501.080 #### [facility] [address] [place], [address] CO2 [Moles/Vol] 23.9 mmol/L Normal 21.0-32.0 [facility] Comment on above: Performed By: #### L 501.080 #### [facility] [address] [place], [address] Creatinine [Mass/Vol] 0.93 mg/dL Normal 0.70-1.20 [facility] Comment on above: Performed By: #### L 501.080 #### [facility] [address] [place], [address] ECRCL 70.28 ml/min Normal 50-250 [facility] Comment on above: Performed By: #### L 501.080 #### [facility] [address] [place], [address] GAP 9 Normal 5-15 [facility] Comment on above: Performed By: #### L 501.080 #### [facility] [address] [place], [address] GFR/1.73 sq M.predicted among non-blacks MDRD (S/P/Bld) [Vol rate/Area] 85 mL/min/{1.73_m2} Normal >60 [facility] Comment on above: Result Comment: mL/m in/1.73m2 CKD-EPI Creatinine Equation (2020) Performed By: #### L 501.080 #### [facility] [address] [place], [address] Glucose [Mass/Vol] 210 mg/dL High 70-99 [facility] Comment on above: Performed By: #### L 501.080 #### [facility] [address] [place], [address] Potassium [Moles/Vol] 4.3 mmol/L Normal 3.3-5.1 [facility] Comment on above: Performed By: #### L 501.080 #### [facility] [address] [place], [place], [address] Sodium [Moles/Vol] 135 mmol/L Normal 133-145 [facility] Comment on above: Performed By: #### L 501.080 #### [facility] [address] [place], [place], [id number] Urea nitrogen [Mass/Vol] 19 mg/dL Normal 4-19 [facility] Comment on above: Performed By: #### L 501.080 #### [facility] [address] [place], [place], [id number] Basophil percentageOrdered B y: Marissa Rivera on 07-08-2025 Basophils/100 WBC (Bld) 0.2 % 0-1 [facility] Bilirubin Test strip Ql (U)O rdered By: Marissa Rivera on 07-08-2025 Bilirubin Ql (U) Negative Negative [facility] Blood manual differential co mment interpretation (narrative result)Ordered By: Marissa Rivera on 07-08-2025 Manual differential comment Refugio (Bld) [Interp] SCANNED [facility] CBC W/Diff, Automatedon - Anisocytosis Ql (Bld) 2+ Normal [facility] Comment on above: Performed By: #### L 501.080 #### [facility] [address] [place], [place], [id number] SMEAR COMMENT SCANNED Normal [facility] Comment on above: Performed By: #### L 501.080 #### [facility] [address] [place], [place], [id number] Carbon dioxide, total [Moles /volume] in Central venous bloodOrdered By: Marissa Rivera on 07-08-2025 CO2 [Moles/Vol] 23.9 mmol/L 21.0-32.0 [facility] Chloride assayOrdered By: Sophy Rivera on 07-08-2025 Chloride [Moles/Vol] 102 mmol/L 98-108 [facility] Emergency Department Summary on 07-08-2025 Emergency Department Summary [facility] Medical Records Department [address] [place] [address] Emergency Department Summary 07/08/25 MR#: [id number] Acct: [id number] Name: ITZEL ALONZO Rep #: [id number] : [id number] 75 From: Monty Clarke MD PCP: Carlene Haji, EMPLOYMENT SERVICES DIRECTOR-C Status:REG ER Location: ED HPI History of Present Illness Chief Complaint: Complaint Narrative Narrative: 75-year-old male with PMH of HTN, HLD, DM2, cirrhosis, anemia had a traumatic hip fracture with surgical fixation on 07/04/[address] Nuno Campbell. He was discharged to [facility]. He states this morning he started to have blood in his urine prompting his visit. He also states they are giving him Tylenol and it is not managing his hip pain well. He denies fever or chills, nausea or vomiting, or abdominal or flank pain. He was discharged on Eliquis 2.5 mg twice daily. [facility] Medical History CKD (chronic kidney disease), [...] (Reviewed 07/04 (more content not included)... Normal [facility] Eosinophil percentageOrdered By: Marissa Rivera on 07-08-2025 Eosinophils/100 WBC (Bld) 0.9 % 0-5 [facility] Erythrocyte distribution wid th ratioOrdered By: Marissa Rivera on 07-08-2025 Erythrocyte distribution width (RBC) [Ratio] 22.5 % High 11.6-14.6 [facility] Erythrocyte distribution wid th standard deviationOrdered By: Marissa Rivera on 07-08-2025 Erythrocyte distribution width (RBC) [Ratio] 56.8 fl High 35.1-43.9 [facility] Glomerular filtration rate ( GFR) estimation/1.73 sq m using serum, plasma, or whole bOrdered By: Marissa Rivera on 07-08-2025 GFR/1.73 sq M.predicted among non-blacks MDRD (S/P/Bld) [Vol rate/Area] 85 mL/min/{1.73_m2} >60 [facility] Comment on above: mL/min/1.73m2 CKD-EP I Creatinine Equation (2020) Hematocrit Auto (Bld) [Volum e fraction]Ordered By: Marissa Rivera on 07-08-2025 Hematocrit (Bld) [Volume fraction] 26.8 % Low 40-54 [facility] Hemoglobin measurementOrdere d By: Marissa Rivera on 07-08-2025 Hemoglobin (Bld) [Mass/Vol] 8.6 g/dL Low 13.0-16.5 [facility] Immature granulocytes/100 WB C Auto (Bld)Ordered By: Marissa Rivera on 07-08-2025 Immature granulocytes/100 WBC (Bld) 0.300 % 0.0-0.9 [facility] Comment on above: IG% - Immature Granu locytes (promyelocytes, myelocytes and metamyelocytes) > 1% indicates that a LEFT SHIFT is Present. Ketones Test strip Ql (U)Ord ered By: Marissa Rivera on 07-08-2025 Ketones Ql (U) Negative Negative [facility] Laboratory - Hematology and Cell countsOrdered By: Marissa Rivera on 07-08-2025 Anisocytosis Ql (Bld) 2+ [facility] MCV (mean corpuscular volume ) determinationOrdered By: Marissa Rivera on 07-08-2025 MCV (RBC) [Entitic vol] 71.5 fL Low 80-94 [facility] Mean corpuscular hemoglobin (MCH) determinationOrdered By: Marissa Rivera on 07-08-2025 MCH (RBC) [Entitic mass] 22.9 pg Low 27.0-32.0 [facility] Mean corpuscular hemoglobin concentration (MCHC) determinationOrdered By: Marissa Rivera on 07-08-2025 MCHC (RBC) [Mass/Vol] 32.1 g/dL 32-36 [facility] Mean platelet volume determi nationOrdered By: Marissa Rivera on 07-08-2025 Platelet mean volume (Bld) [Entitic vol] 9.6 fL 6.2-12.0 [facility] Microscopic analysis of urin e for red blood cells (RBC)Ordered By: Marissa Rivera on 07-08-2025 Microscopic analysis of urine for red blood cells (RBC) 10-25 SEEN /hpf 0-5 [facility] Monocyte percentageOrdered B y: Marissa Rivera on 07-08-2025 Monocytes/100 WBC (Bld) 7.2 % 0-10 [facility] Mucus LM Ql (Urine sed)Order ed By: Marissa Rivera on 07-08-2025 Mucus Ql (Urine sed) 0 SEEN /hpf [facility] Neutrophil percentageOrdered By: Marissa Rivera on 07-08-2025 Neutrophils/100 WBC (Bld) 75.3 % High 47-70 [facility] Nitrite Test strip Ql (U)Ord ered By: Marissa Rivera on 07-08-2025 Nitrite Ql (U) Negative Negative [facility] Nucleated red blood cell per centageOrdered By: Marissa Rivera on 07-08-2025 Nucleated RBC/100 WBC (Bld) [Ratio] 0 % 0-5 [facility] Platelet countOrdered By: Sophy Rivera on 07-08-2025 Platelets (Bld) [#/Vol] 250 10*3/uL 150-450 [facility] Potassium measurement (mass/ volume)Ordered By: Marissa Rivera on 07-08-2025 Potassium (Unsp spec) [Mass/Vol] 4.3 mmol/L 3.3-5.1 [facility] Protein Test strip Ql (U)Ord ered By: Marissa Rivera on 07-08-2025 Protein Ql (U) 100 mg/dl High Negative [facility] RBC Auto (Bld) [#/Vol]Ordere d By: Marissa Rivera on 07-08-2025 RBC (Bld) [#/Vol] 3.75 10*6/uL Low 4.6-6.2 [facility] Serum creatinine measurement (mass/volume)Ordered By: Marissa Rivera on 07-08-2025 Creatinine [Mass/Vol] 0.93 mg/dL 0.70-1.20 [facility] Serum glucose measurement (m ass/volume)Ordered By: Marissa Rivera on 07-08-2025 Glucose [Mass/Vol] 210 mg/dL High 70-99 [facility] Serum or plasma calcium ivania urement (mass/volume)Ordered By: Marissa Rivera on 07-08-2025 Calcium [Mass/Vol] 9.1 mg/dL 7.6-11.0 [facility] Serum or plasma urea nitroge n measurement (mass/volume)Ordered By: Marissa Rivera on 07-08-2025 Urea nitrogen [Mass/Vol] 19 mg/dL 4-19 [facility] Sodium levelOrdered By: Marissa Rivera on 07-08-2025 Sodium [Moles/Vol] 135 mmol/L 133-145 [facility] Squamous epithelial cells de tection in urine sediment by light microscopyOrdered By: Marissa Rivera on 07-08-2025 Epithelial cells.squamous LM Ql (Urine sed) 0 SEEN /hpf 0-5 [facility] Urinalysis, Completeon 07-08 RBC 10-25 SEEN Normal 0-5 [facility] Comment on above: Order Comment: CLEAN CATCH Performed By: #### L 501.080 #### [facility] [address] [place], [address] BACTERIA 0 SEEN Normal None Seen [facility] Comment on above: Order Comment: CLEAN CATCH Performed By: #### L 501.080 #### [facility] [address] [place], [address] EPI,SQUAMOUS 0 SEEN Normal 0-5 [facility] Comment on above: Order Comment: CLEAN CATCH Performed By: #### L 501.080 #### [facility] [address] [place], [address] Mucus Ql (Urine sed) 0 SEEN Normal [facility] Comment on above: Order Comment: CLEAN CATCH Performed By: #### L 501.080 #### [facility] [address] [place], [address] WBC 0 SEEN Normal 0-5 [facility] Comment on above: Order Comment: CLEAN CATCH Performed By: #### L 501.080 #### [facility] [place], [address] Urine clarityOrdered By: Ira Rivera on 07-08-2025 Clarity (U) Clear Clear [facility] Urine color determinationOrd ered By: Marissa Rivera on 07-08-2025 Color (U) Yellow Yellow [facility] Urine glucose detectionOrder ed By: Marissa Rivera on 07-08-2025 Glucose Ql (U) 100 mg/dl High Normal [facility] Urine leukocyte esterase det ection by dipstickOrdered By: Marissa Rivera on 07-08-2025 Leukocyte esterase Test strip Ql (U) Negative Negative [facility] Urine pHOrdered By: Marissa rowland on 07-08-2025 pH (U) 6.5 [pH] 5.0 - 8.0 [facility] Urine sediment bacteria coun t by microscopy (number/high power field)Ordered By: Marissa Rivera on 07-08-2025 Bacteria LM.HPF (Urine sed) [#/Area] 0 /[HPF] None Seen [facility] Urine specific gravity measu rementOrdered By: Marissa Rivera on 07-08-2025 Specific gravity (U) [Rel density] 1.010 1.002-1.030 [facility] Urine urobilinogen measureme ntOrdered By: Marissa Rivera on 07-08-2025 Urobilinogen Ql (U) Normal mg/dl Normal [facility] White blood cell (WBC) count Ordered By: Marissa Rivera on 07-08-2025 WBC (Bld) [#/Vol] 8.8 10*3/uL 4.4-11.0 [facility] White blood cell countOrdere d By: Marissa Rivera on 07-08-2025 White blood cell count 0 SEEN /hpf 0-5 [facility] Absolute lymphocyte countOrd ered By: Uche Felix on 07-07-2025 Lymphocytes Auto (Unsp spec) [#/Vol] 1.99 10*3/uL 0.83-4.51 [facility] Absolute neutrophil countOrd ered By: Uche Felix on 07-07-2025 Neutrophils (Bld) [#/Vol] 7.5 10*3/uL 2.0-7.7 [facility] Anion gap in Serum or Plasma Ordered By: Uche Felix on 07-07-2025 Anion gap [Moles/Vol] 9 mmol/L 5-15 [facility] Automated lymphocyte count a s percentage of total leukocytesOrdered By: Uche Felix on 07-07-2025 Lymphocytes/100 WBC Auto (Unsp spec) 19.0 % [facility] BUN/creatinine ratioOrdered By: Uche Felix on 07-07-2025 Urea nitrogen/Creatinine [Mass ratio] 23.6 mg/mg High 09-13 [facility] Basic Metabolic Profile (BMP )on 07-07-2025 BUN/CRE 23.6 RATIO High 09-13 [facility] Comment on above: Performed By: #### L 501.080 #### [facility] [address] [place], [address] Calcium [Mass/Vol] 8.7 mg/dL Normal 7.6-11.0 [facility] Comment on above: Performed By: #### L 501.080 #### [facility] [address] [place], [address] Chloride [Moles/Vol] 104 mmol/L Normal 98-108 [facility] Comment on above: Performed By: #### L 501.080 #### [facility] [address] [place], [address] CO2 [Moles/Vol] 23.0 mmol/L Normal 21.0-32.0 [facility] Comment on above: Performed By: #### L 501.080 #### [facility] [address] [place], [address] Creatinine [Mass/Vol] 0.90 mg/dL Normal 0.70-1.20 [facility] Comment on above: Performed By: #### L 501.080 #### [facility] [address] [place], [address] ECRCL 58.14 ml/min Normal 50-250 [facility] Comment on above: Performed By: #### L 501.080 #### [facility] [address] [place], [address] GAP 9 Normal 5-15 [facility] Comment on above: Performed By: #### L 501.080 #### [facility] [address] [place], [address] GFR/1.73 sq M.predicted among non-blacks MDRD (S/P/Bld) [Vol rate/Area] 88 mL/min/{1.73_m2} Normal >60 [facility] Comment on above: Result Comment: mL/m in/1.73m2 CKD-EPI Creatinine Equation (2020) Performed By: #### L 501.080 #### [facility] [address] [place], [address] Glucose [Mass/Vol] 186 mg/dL High 70-99 [facility] Comment on above: Performed By: #### L 501.080 #### [facility] [address] [place], [address] Potassium [Moles/Vol] 4.4 mmol/L Normal 3.3-5.1 [facility] Comment on above: Performed By: #### L 501.080 #### [facility] [address] [place], [address] Sodium [Moles/Vol] 136 mmol/L Normal 133-145 [facility] Comment on above: Performed By: #### L 501.080 #### [facility] [address] [place], [address] Urea nitrogen [Mass/Vol] 21 mg/dL High 4-19 [facility] Comment on above: Performed By: #### L 501.080 #### [facility] [address] [place], [address] Basophil percentageOrdered B y: Uche Felix on 07-07-2025 Basophils/100 WBC (Bld) 0.1 % 0-1 [facility] Bedside Glucoseon 07-07-2025 FINGERSTICK GLU 213 mg/dL High 74-106 [facility] Comment on above: Result Comment: BELLA GEMENT OF PATIENT CARE PER NURSING PROTOCOL Performed By: #### L 501.080 #### [facility] [address] [place], [address] FINGERSTICK GLU 208 mg/dL High 74-106 [facility] Comment on above: Result Comment: BELLA GEMENT OF PATIENT CARE PER NURSING PROTOCOL Performed By: #### L 501.080 #### [facility] [address] [place], [address] FINGERSTICK GLU 185 mg/dL High 74-106 [facility] Comment on above: Result Comment: BELLA GEMENT OF PATIENT CARE PER NURSING PROTOCOL Performed By: #### L 501.080 #### [facility] [address] [place], [address] Blood polychromasia detectio n by light microscopyOrdered By: Uche Felix on 07-07-2025 Polychromasia LM Ql (Bld) 1+ [facility] CBC W/Diff, Automatedon 06-25 Anisocytosis Ql (Bld) 1+ Normal [facility] Comment on above: Performed By: #### L 501.080 #### [facility] [address] [place], [address] PLT EST ADEQUATE Normal ADEQ [facility] Comment on above: Performed By: #### L 501.080 #### [facility] [address] [place], [address] POLYCHROMASIA 1+ Normal [facility] Comment on above: Performed By: #### L 501.080 #### [facility] [address] [place], [address] Carbon dioxide, total [Moles /volume] in Central venous bloodOrdered By: Uche Felix on 07-07-2025 CO2 [Moles/Vol] 23.0 mmol/L 21.0-32.0 [facility] Chloride assayOrdered By: Jose De Jesus Felix on 07-07-2025 Chloride [Moles/Vol] 104 mmol/L 98-108 [facility] Eosinophil percentageOrdered By: Uche Felix on 07-07-2025 Eosinophils/100 WBC (Bld) 1.3 % 0-5 [facility] Erythrocyte distribution wid th ratioOrdered By: Uche Felix on 07-07-2025 Erythrocyte distribution width (RBC) [Ratio] 21.1 % High 11.6-14.6 [facility] Erythrocyte distribution wid th standard deviationOrdered By: Uche Felix on 07-07-2025 Erythrocyte distribution width (RBC) [Ratio] 54.1 fl High 35.1-43.9 [facility] Glomerular filtration rate ( GFR) estimation/1.73 sq m using serum, plasma, or whole bOrdered By: Uche Felix on 07-07-2025 GFR/1.73 sq M.predicted among non-blacks MDRD (S/P/Bld) [Vol rate/Area] 88 mL/min/{1.73_m2} >60 [facility] Comment on above: mL/min/1.73m2 CKD-EP I Creatinine Equation (2020) [facility] deOrdered By: Anthony Salgado on 07-07-2025 Glucose [Mass/Vol] 213 mg/dL High 74-106 [facility] Comment on above: MANAGEMENT OF PATIEN T CARE PER NURSING PROTOCOL Hematocrit Auto (Bld) [Volum e fraction]Ordered By: Uche Felix on 07-07-2025 Hematocrit (Bld) [Volume fraction] 25.6 % Low 40-54 [facility] Hemoglobin measurementOrdere d By: Uche Felix on 07-07-2025 Hemoglobin (Bld) [Mass/Vol] 8.0 g/dL Low 13.0-16.5 [facility] Immature granulocytes/100 WB C Auto (Bld)Ordered By: Uche Felix on 07-07-2025 Immature granulocytes/100 WBC (Bld) 0.400 % 0.0-0.9 [facility] Comment on above: IG% - Immature Granu locytes (promyelocytes, myelocytes and metamyelocytes) > 1% indicates that a LEFT SHIFT is Present. Laboratory - Hematology and Cell countsOrdered By: Uche Felix on 07-07-2025 Anisocytosis Ql (Bld) 1+ [facility] MCV (mean corpuscular volume ) determinationOrdered By: Uche Felix on 07-07-2025 MCV (RBC) [Entitic vol] 71.3 fL Low 80-94 [facility] Mean corpuscular hemoglobin (MCH) determinationOrdered By: Uche Felix on 07-07-2025 MCH (RBC) [Entitic mass] 22.3 pg Low 27.0-32.0 [facility] Mean corpuscular hemoglobin concentration (MCHC) determinationOrdered By: Uche Felix on 07-07-2025 MCHC (RBC) [Mass/Vol] 31.3 g/dL Low 32-36 [facility] Mean platelet volume determi nationOrdered By: Uche Felix on 07-07-2025 Platelet mean volume (Bld) [Entitic vol] 9.7 fL 6.2-12.0 [facility] Monocyte percentageOrdered B y: Uche Felix on 07-07-2025 Monocytes/100 WBC (Bld) 7.8 % 0-10 [facility] Neutrophil percentageOrdered By: Uche Felix on 07-07-2025 Neutrophils/100 WBC (Bld) 71.4 % High 47-70 [facility] Nucleated red blood cell per centageOrdered By: Uche Felix on 07-07-2025 Nucleated RBC/100 WBC (Bld) [Ratio] 0 % 0-5 [facility] Platelet countOrdered By: Jose De Jesus Felix on 07-07-2025 Platelets (Bld) [#/Vol] 234 10*3/uL 150-450 [facility] Platelet estimateOrdered By: Uche Felix on 07-07-2025 Platelets LM Ql (Bld) ADEQUATE ADEQ [facility] Potassium measurement (mass/ volume)Ordered By: Uche Felix on 07-07-2025 Potassium (Unsp spec) [Mass/Vol] 4.4 mmol/L 3.3-5.1 [facility] RBC Auto (Bld) [#/Vol]Ordere d By: Uche Felix on 07-07-2025 RBC (Bld) [#/Vol] 3.59 10*6/uL Low 4.6-6.2 [facility] Serum creatinine measurement (mass/volume)Ordered By: Uche Felix on 07-07-2025 Creatinine [Mass/Vol] 0.90 mg/dL 0.70-1.20 [facility] Serum glucose measurement (m ass/volume)Ordered By: Uche Felix on 07-07-2025 Glucose [Mass/Vol] 186 mg/dL High 70-99 [facility] Serum or plasma calcium ivania urement (mass/volume)Ordered By: Uche Felix on 07-07-2025 Calcium [Mass/Vol] 8.7 mg/dL 7.6-11.0 [facility] Serum or plasma urea nitroge n measurement (mass/volume)Ordered By: Uche Felix on 07-07-2025 Urea nitrogen [Mass/Vol] 21 mg/dL High 4-19 [facility] Sodium levelOrdered By: Tj Felix on 07-07-2025 Sodium [Moles/Vol] 136 mmol/L 133-145 [facility] White blood cell (WBC) count Ordered By: Uche Felix on 07-07-2025 WBC (Bld) [#/Vol] 10.5 10*3/uL 4.4-11.0 [facility] Basic Metabolic Profile (BMP )on 07-06-2025 BUN/CRE 21.0 RATIO High 10-20 [facility] Comment on above: Performed By: #### L 500.2500, L100.0100 #### [facility] Laboratory [facility] [address] [place], [place], [address] Calcium [Mass/Vol] 8.6 mg/dL Normal 7.6-11.0 [facility] Comment on above: Performed By: #### L 500.2500, L100.0100 #### [facility] Laboratory [address] [place], [address] Chloride [Moles/Vol] 103 mmol/L Normal 98-108 [facility] Comment on above: Performed By: #### L 500.2500, L100.0100 #### [facility] Laboratory [address] [place], [address] CO2 [Moles/Vol] 20.0 mmol/L Low 21.0-32.0 [facility] Comment on above: Performed By: #### L 500.2500, L100.0100 #### [facility] Laboratory [address] [place], [address] Creatinine [Mass/Vol] 1.03 mg/dL Normal 0.70-1.20 [facility] Comment on above: Performed By: #### L 500.2500, L100.0100 #### [facility] [address] [place], [address] ECRCL 50.29 ml/min Normal 50-250 [facility] Comment on above: Performed By: #### L 500.2500, L100.0100 #### [facility] Laboratory [address] [place], [address] GAP 11 Normal 5-15 [facility] Comment on above: Performed By: #### L 500.2500, L100.0100 #### [facility] Laboratory [address] [place], [address] GFR/1.73 sq M.predicted among non-blacks MDRD (S/P/Bld) [Vol rate/Area] 75 mL/min/{1.73_m2} Normal >60 [facility] Comment on above: Result Comment: mL/m in/1.73m2 CKD-EPI Creatinine Equation (2020) Performed By: #### L 500.2500, L100.0100 #### [facility] Laboratory [address] [place], [address] Glucose [Mass/Vol] 141 mg/dL High 70-99 [facility] Comment on above: Performed By: #### L 500.2500, L100.0100 #### [facility] Laboratory [address] [place], [address] Potassium [Moles/Vol] 3.7 mmol/L Normal 3.3-5.1 [facility] Comment on above: Performed By: #### L 500.2500, L100.0100 #### [facility] Laboratory [address] [place], [address] Sodium [Moles/Vol] 134 mmol/L Normal 133-145 [facility] Comment on above: Performed By: #### L 500.2500, L100.0100 #### [facility] Laboratory [address] [place], [address] Urea nitrogen [Mass/Vol] 22 mg/dL High 4-19 [facility] Comment on above: Performed By: #### L 500.2500, L100.0100 #### [facility] Laboratory [address] [place], [address] Bedside Glucoseon 07-06-2025 FINGERSTICK GLU 183 mg/dL High 74-106 [facility] Comment on above: Result Comment: BELLA GEMENT OF PATIENT CARE PER NURSING PROTOCOL Performed By: #### L 501.080 #### [facility] Laboratory [address] [place], [address] FINGERSTICK GLU 213 mg/dL High 74-106 [facility] Comment on above: Result Comment: BELLA GEMENT OF PATIENT CARE PER NURSING PROTOCOL Performed By: #### L 501.080 #### [facility] Laboratory [address] [place], [address] FINGERSTICK GLU 189 mg/dL High 74-106 [facility] Comment on above: Result Comment: BELLA GEMENT OF PATIENT CARE PER NURSING PROTOCOL Performed By: #### L 501.080 #### [facility] Laboratory [address] [place], [address] FINGERSTICK GLU 142 mg/dL High 74-106 [facility] Comment on above: Result Comment: BELLA PENALOZA OF PATIENT CARE PER NURSING PROTOCOL Performed By: #### L 501.080 #### [facility] Laboratory [address] [place], [address] Blood manual differential co mment interpretation (narrative result)Ordered By: Uche Felix on 07-06-2025 Manual differential comment Refugio (Bld) [Interp] See comment [facility] Comment on above: ANISOCYTOSIS CBC W/Diff, Automatedon 06-25 SMEAR COMMENT Normal [facility] Comment on above: Result Comment: ANIS OCYTOSIS Performed By: #### L 500.2500, L100.0100 #### [facility] Laboratory [address] [place], [address] Anisocytosis Ql (Bld) 1+ Normal [facility] Comment on above: Performed By: #### L 500.2500, L100.0100 #### [facility] Laboratory [address] [place], [address] BASO STIPPLING RARE Normal [facility] Comment on above: Performed By: #### L 500.2500, L100.0100 #### [facility] Laboratory [address] [place], [address] OVALOCYTE RARE Normal [facility] Comment on above: Performed By: #### L 500.2500, L100.0100 #### [facility] Laboratory [address] [place], [address] POLYCHROMASIA 1+ Normal [facility] Comment on above: Performed By: #### L 500.2500, L100.0100 #### [facility] Laboratory [address] [place], [address] Erythrocyte basophilic stipp ling detectionOrdered By: Uche Felix on 07-06-2025 Basophilic stippling LM Ql (Bld) RARE [facility] Ovalocyte detectionOrdered B y: Uche Felix on 07-06-2025 Ovalocytes LM Ql (Bld) [facility] Surgical pathology reportOrd ered By: Alfredito Dubon on 07-06-2025 Surgical pathology study [facility] Basic Metabolic Profile (BMP )on 07-05-2025 BUN/CRE 16.8 RATIO Normal 10-20 [facility] Comment on above: Performed By: #### L 500.2500, L100.0100 #### [facility] Laboratory [address] [place], [address] Calcium [Mass/Vol] 9.1 mg/dL Normal 7.6-11.0 [facility] Comment on above: Performed By: #### L 500.2500, L100.0100 #### [facility] Laboratory [address] [place], [address] Chloride [Moles/Vol] 102 mmol/L Normal 98-108 [facility] Comment on above: Performed By: #### L 500.2500, L100.0100 #### [facility] Laboratory [address] [place], [address] CO2 [Moles/Vol] 21.6 mmol/L Normal 21.0-32.0 [facility] Comment on above: Performed By: #### L 500.2500, L100.0100 #### [facility] Laboratory [address] [place], [address] Creatinine [Mass/Vol] 1.14 mg/dL Normal 0.70-1.20 [facility] Comment on above: Performed By: #### L 500.2500, L100.0100 #### [facility] Laboratory [address] [place], [address] ECRCL 46.13 ml/min Low 50-250 [facility] Comment on above: Performed By: #### L 500.2500, L100.0100 #### [facility] Laboratory [address] [place], [address] GAP 12 Normal 5-15 [facility] Comment on above: Performed By: #### L 500.2500, L100.0100 #### [facility] Laboratory [address] [place], [address] GFR/1.73 sq M.predicted among non-blacks MDRD (S/P/Bld) [Vol rate/Area] 66 mL/min/{1.73_m2} Normal >60 [facility] Comment on above: Result Comment: mL/m in/1.73m2 CKD-EPI Creatinine Equation (2020) Performed By: #### L 500.2500, L100.0100 #### [facility] Laboratory [address] [place], [address] Glucose [Mass/Vol] 178 mg/dL High 70-99 [facility] Comment on above: Performed By: #### L 500.2500, L100.0100 #### [facility] Laboratory [address] [place], [address] Potassium [Moles/Vol] 3.8 mmol/L Normal 3.3-5.1 [facility] Comment on above: Performed By: #### L 500.2500, L100.0100 #### [facility] Laboratory [address] [place], [address] Sodium [Moles/Vol] 135 mmol/L Normal 133-145 [facility] Comment on above: Performed By: #### L 500.2500, L100.0100 #### [facility] Laboratory [address] [place], [address] Urea nitrogen [Mass/Vol] 19 mg/dL Normal 4-19 [facility] Comment on above: Performed By: #### L 500.2500, L100.0100 #### [facility] Laboratory [address] [place], [address] Bedside Glucoseon 07-05-2025 FINGERSTICK GLU 214 mg/dL High [address] [place] [address] Comment on above: Result Comment: BELLA GEMENT OF PATIENT CARE PER NURSING PROTOCOL Performed By: #### L 501.080 #### [facility] Laboratory [address] [place], [address] FINGERSTICK GLU 232 mg/dL High [address] [place] [address] Comment on above: Result Comment: BELLA GEMENT OF PATIENT CARE PER NURSING PROTOCOL Performed By: #### L 501.080 #### [facility] Laboratory [address] [place], [address] FINGERSTICK GLU 290 mg/dL High [address] [place] [address] Comment on above: Result Comment: BELLA GEMENT OF PATIENT CARE PER NURSING PROTOCOL Performed By: #### L 501.080 ####[facility] [address] [place], [address] FINGERSTICK GLU 182 mg/dL High [address] [place] [address] Comment on above: Result Comment: BELLA GEMENT OF PATIENT CARE PER NURSING PROTOCOL Performed By: #### L 501.080 #### [facility] Laboratory [address] [place], [address] CBC W/Diff, Automatedon 06-25 Anisocytosis Ql (Bld) 1+ Normal [facility] Comment on above: Performed By: #### L 500.2500, L100.0100 #### [facility] Laboratory [address] [place], [address] Electrocardiogram reportOrde red By: Kevin Joshi on 07-05-2025 EKG study [facility] Cardiovascular Services [address] [place] [address] 12 Lead EKG 07/03/25 2142 MR#: [id number] Acct: [id number] Name: ITZEL ALONZO Rep #:[id number] : 1950 75 From: Kevin Joshi MD [...] Abnormal ECG Confirmed by KEVIN JOSHI MD ([id number]), video effects editor JOSE NYE ([id number]) on 07/05/2025 1:12:48 PM Referred By: Confirmed By: KEVIN JOSHI MD 07/05/25 1312 Date _ Kevin Joshi MD CC: EMPLOYMENT SERVICES DIRECTOR-C Carlene Haji; Dr. Steven Tejeda DO; Dr. Anthony Salgado MD ~ Signed [facility] Other Phone: [id number] 07-05-2025 [facility] Medical Records Department [address] [place] [address] Anesthesia Postop Eval II 07/05/25 0611 MR#: [id number] Acct: [id number] Name: ITZEL ALONZO Rep #: [id number] : 1950 75 From: Kayden Merino MD PCP: Carlene Haji, EMPLOYMENT SERVICES DIRECTOR-C Status:ADM IN Y Race: AA Location: MS3 [id number] Anesthesia Postop Eval I Sum Postop Eval Completion status Anesthesia document: Postop Eval 1 completed: Yes Anesthesia Postop Eval I Summary Anesthesia Postop Eval I Summary: Anesthesia Postop Eval I: Assessment Summary Airway patent Yes 07/04/25 11:46 ADJUNCT PHYSICS INSTRUCTOR.JCLI Spontaneous unlabored Yes 07/04/25 11:46 ADJUNCT PHYSICS INSTRUCTOR.JCLI respirations Mental status Awake 07/04/25 11:46 ADJUNCT PHYSICS INSTRUCTOR.JCLI nausea No 07/04/25 11:46 ADJUNCT PHYSICS INSTRUCTOR.JCLI Vomiting No 07/04/25 11:46 ADJUNCT PHYSICS INSTRUCTOR.JCLI Anesthesia Postop Eval I: Fluid Summary Crystalloid volume administer 500 07/04/25 11:46 ADJUNCT PHYSICS INSTRUCTOR.JCLI (ml) Colloids volume administered ( ml) Blood Product volume administered (ml) Total IV fluid infused 500 07/04/25 11:46 ADJUNCT PHYSICS INSTRUCTOR.JCLI Anesthesia Postop Eval I: Summary Notes Anesthesia Complication No 07/04/25 11:46 ADJUNCT PHYSICS INSTRUCTOR.JCLI Anesthesia Complication Comment: Post-operative progress note Anesthesia: Postop Eval II Evaluation Mental status: Awake Pain Level: 0 nausea: No Vomiting: No 07/05/25 0611 Date Kayden Bernstein Signature: Date CC: Signed Normal [facility] Magnesiumon 07-05-2025 Magnesium [Mass/Vol] 2.0 mg/dL Normal 1.5-2.2 [facility] Comment on above: Performed By: #### L 500.2500, L100.0100 #### [facility] Laboratory [address] [facility] [place], [place], [address] Magnesium measurement (mass/ volume)Ordered By: Uche Felix on 07-05-2025 Magnesium (Unsp spec) [Mass/Vol] 2.0 mg/dL 1.5-2.2 [facility] Phosphoruson 07-05-2025 Phosphate [Mass/Vol] 3.0 mg/dL Normal 2.7-4.5 [facility] Comment on above: Performed By: #### L 500.2500, L100.0100 #### [facility] [address] [facility] [place], [address] BRCon 07-04-2025 RC Normal [facility] Comment on above: Result Comment: [id number] OP RC TRANSFUSED 07/06/25 1234 Performed By: #### L 501.080 #### [facility] Laboratory [address] [place], [address] Bedside Glucoseon 07-04-2025 FINGERSTICK GLU 208 mg/dL High 74-106 [facility] Comment on above: Result Comment: EBLLA GEMENT OF PATIENT CARE PER NURSING PROTOCOL Performed By: #### L 501.080 #### [facility] Laboratory [address] [place], [address] FINGERSTICK GLU 215 mg/dL High [facility]106 [facility] Comment on above: Result Comment: BELLA GEMENT OF PATIENT CARE PER NURSING PROTOCOL Performed By: #### L 501.080 #### [facility] Laboratory [address] [place], [address] FINGERSTICK GLU 174 mg/dL High 74-106 [facility] Comment on above: Result Comment: BELLA GEMENT OF PATIENT CARE PER NURSING PROTOCOL Performed By: #### L 501.080 #### [facility] Laboratory [address] [place], [address] FINGERSTICK GLU 166 mg/dL High [facility]106 [facility] Comment on above: Result Comment: BELLA GEMENT OF PATIENT CARE PER NURSING PROTOCOL Performed By: #### L 501.080 #### [facility] Laboratory [address] [place], [address] FINGERSTICK GLU 193 mg/dL High 74-106 [facility] Comment on above: Result Comment: BELLA GEMENT OF PATIENT CARE PER NURSING PROTOCOL Performed By: #### L 500.2500, L100.0100 #### [facility] Laboratory [address] [place], [address] Bilirubin, totalOrdered By: Johanne Evans on 07-04-2025 Bilirubin [Mass/Vol] 0.45 mg/dL 0.00-1.30 [facility] CBC W/Diff, Automatedon - Anisocytosis Ql (Bld) 1+ Normal [facility] Comment on above: Performed By: #### L 500.2500, L100.0100 #### [facility] Laboratory [address] [place], [address] PLT EST ADEQUATE Normal ADEQ [facility] Comment on above: Performed By: #### L 500.2500, L100.0100 #### [facility] Laboratory [address] [place], [address] Comprehensive Metabolic Prof ilon 07-04-2024 Albumin [Mass/Vol] 3.1 g/dL Low 3.4-4.8 [facility] Comment on above: Performed By: #### L 500.2500, L100.0100 #### [facility] Laboratory [address] [place], [address] Albumin/Globulin [Mass ratio] 0.5 {ratio} Low 0.9-2.4 [facility] Comment on above: Performed By: #### L 500.2500, L100.0100 #### [facility] Laboratory [address] [place], [address] ALK PHOS 124 U/L Normal 40-129 [facility] Comment on above: Performed By: #### L 500.2500, L100.0100 #### [facility] Laboratory [address] [place], [address] ALT [Catalytic activity/Vol] 9 U/L Normal <=46 [facility] Comment on above: Performed By: #### L 500.2500, L100.0100 #### [facility] Laboratory [address] [place], [address] AST [Catalytic activity/Vol] 18 U/L Normal <=37 [facility] Comment on above: Performed By: #### L 500.2500, L100.0100 #### [facility] Laboratory [address] [place], [address] Bilirubin [Mass/Vol] 0.45 mg/dL Normal 0.00-1.30 [facility] Comment on above: Performed By: #### L 500.2500, L100.0100 #### [facility] Laboratory [address] [place], [address] BUN/CRE 16.4 RATIO Normal 10-20 [facility] Comment on above: Performed By: #### L 500.2500, L100.0100 #### [facility] Laboratory [address] [place], [address] Calcium [Mass/Vol] 9.2 mg/dL Normal 7.6-11.0 [facility] Comment on above: Performed By: #### L 500.2500, L100.0100 #### [facility] Laboratory [address] [place], [address] Chloride [Moles/Vol] 103 mmol/L Normal 98-108 [facility] Comment on above: Performed By: #### L 500.2500, L100.0100 #### [facility] Laboratory [address] [place], [address] CO2 [Moles/Vol] 19.6 mmol/L Low 21.0-32.0 [facility] Comment on above: Performed By: #### L 500.2500, L100.0100 #### [facility] Laboratory [address] [place], [address] Creatinine [Mass/Vol] 0.78 mg/dL Normal 0.70-1.20 [facility] Comment on above: Performed By: #### L 500.2500, L100.0100 #### [facility] Laboratory [address] [place], [address] ECRCL 63.55 ml/min Normal 50-250 [facility] Comment on above: Performed By: #### L 500.2500, L100.0100 #### [facility] Laboratory [address] [place], [address] GAP 12 Normal 5-15 [facility] Comment on above: Performed By: #### L 500.2500, L100.0100 #### [facility] Laboratory [address] [place], [address] GFR/1.73 sq M.predicted among non-blacks MDRD (S/P/Bld) [Vol rate/Area] 92 mL/min/{1.73_m2} Normal >60 [facility] Comment on above: Result Comment: mL/m in/1.73m2 CKD-EPI Creatinine Equation (2020) Performed By: #### L 500.2500, L100.0100 #### [facility] Laboratory [address] [place], [address] Globulin (S) [Mass/Vol] 5.8 g/dL High 2.2-4.2 [facility] Comment on above: Performed By: #### L 500.2500, L100.0100 #### [facility] Laboratory [address] [place], [address] Glucose [Mass/Vol] 174 mg/dL High 70-99 [facility] Comment on above: Performed By: #### L 500.2500, L100.0100 #### [facility] Laboratory [address] [place], [address] Potassium [Moles/Vol] 4.2 mmol/L Normal 3.3-5.1 [facility] Comment on above: Performed By: #### L 500.2500, L100.0100 #### [facility] [address] [place], [address] Sodium [Moles/Vol] 134 mmol/L Normal 133-145 [facility] Comment on above: Performed By: #### L 500.2500, L100.0100 #### [facility] Laboratory [address] [place], [address] T PROT 8.9 g/dL High 5.9-8.4 [facility] Comment on above: Performed By: #### L 500.2500, L100.0100 #### [facility] Laboratory [address] [place], [address] Urea nitrogen [Mass/Vol] 13 mg/dL Normal 4-19 [facility] Comment on above: Performed By: #### L 500.2500, L100.0100 #### [facility] Laboratory [address] [place], [address] Consultation - Orthopedicson 07-04-2025 Consultation - Orthopedics [facility] Medical Records Department [address] [place] [address] Consultation - Orthopedics 07/04/25 0959 MR#: [id number] Acct: [id number] Name: ITZEL ALONZO Rep #: [id number] : 1950 75 From: Nuno Campbell MD PCP: Carlene Haji, EMPLOYMENT SERVICES DIRECTOR-C Status:ADM IN Location: [facility] [place] [id number] HPI Consult Data Date of Consult: 07/04/25 [...] consulted. Patient admitted to the medical service. [facility] Medical History CKD (chronic kidney disease), stage [...] 5 mg PO Q6H PRN pain 07/04/25 08/07/19 History pantoprazole 40 mg tablet,delayed 40 mg [...] intake: ne (more content not included)... Normal [facility] Decalcification bone/plaqueo n 07-04-2025 Decalcification bone/plaque -------- Patient Age/Sex Location Account Attending Physician -------- ITZEL ALONZO 75/M MS3 [id number] Dr. Anthony Salgado MD -------- Specimen: [id number] Received: 07/05/25 Status: CASIE Gutierrezsophia Num: [id number] Spec Type: FEM HEAD Subm Dr: Dr. [...] Entirely submitted in 3 cassettes, following decalcification. PR 07/05/2025 CPT:14205,13298 -------- Patient Age/Sex Location Account Attending Physician -------- ITZEL ALONZO 75/M MS3 [id number] Dr. Anthony Salgado MD -------- Signed (signature on file) Dr. Alfredito Sue MD 07/06/25 1606 -------- Normal [facility] Comment on above: Performed By: #### L 500.2500, L100.0100 #### [facility] Laboratory [address] [place], [address] Ferritinon 07-04-2025 Ferritin [Mass/Vol] 640 ng/mL High 37-417 [facility] Comment on above: Performed By: #### L 500.2500, L100.0100 #### [facility] [address] [place], [address] Hemoglobin A1con 07-04-2025 HbA1c (Bld) [Mass fraction] 8.2 % High <=5.6 [facility] Comment on above: Result Comment: Norm al < 5.7 % Prediabetic 5.7 - 6.4 % Diabetic >or= 6.5 % Please note range changes. Performed By: #### L 500.2500, L100.0100 #### [facility] Laboratory [address] [place], [address] Hemoglobin A1c percentageOrd ered By: Kayden Merino on 07-04-2025 HbA1c (Bld) [Mass fraction] 8.2 % High <5.7 [facility] Comment on above: Normal < 5.7 % Predi abetic 5.7 - 6.4 % Diabetic >or= 6.5 % Please note range changes. Hip Min 2 Views (Portable)on 07-04-2025 Hip Min 2 Views (Portable) [facility] Imaging Services [address] [place] [address] Hip Min 2 Views (Portable) MR#: [id number] Acct: [id number] Name: CHERIITZEL A Rep #: [id number] : 1950 M 75 From: Yesica Pedroza MD PCP: Carlene Haji EMPLOYMENT SERVICES DIRECTOROnurC Status: ADM IN Study: Hip Min 2 Views (Portable) Date of Exam: 07/04 Exam# [id number] Ordering Dr: Nuno Campbell MD PROCEDURE: HIP [...] fracture with no acute complications. Reading Location: [facility] CC: IKE-René Haji; Dr. Nuno Campbell MD Police Investigator: Signed Normal [facility] International normalized rat io (INR) calculationOrdered By: Kayden Merino on 07-04-2025 INR Coag (Bld) [Relative time] 1.3 {INR} [facility] Iron measurement (mass/mass) Ordered By: Johanne Evans on 07-04-2025 Iron (Unsp spec) [Mass/Mass] 17 ug/dL Low 65-175 [facility] Iron+Iron Binding Capacityon 07-04-2025 TIBC 163 ug/dL Low 250-450 [facility] Comment on above: Performed By: #### L 500.2500, L100.0100 #### [facility] Laboratory [address] [facility] [place], [address] Laboratory - Chemistry and C hemistry - challengeOrdered By: Johanne Evans on 07-04-2025 AST [Catalytic activity/Vol] 18 U/L <38 [facility] MR/POSTOP.ANEon 07-04-2025 MR/POSTOP.[facility] Medical Records Department [address] [place] [address] Anesthesia Postop Eval I 07/04/25 1146 MR#: [id number] Acct: [id number] Name: ITZEL ALONZO Rep #: [id number] : 1950 75 From: Kye Luu CRNA PCP: Carlene Haji, EMPLOYMENT SERVICES DIRECTOR-C Status:ADM IN Y Race: AA Location: [place] [address] Anesthesia: Postop Eval I Current Vital Signs [...] 1 completed: Yes 07/04/25 1146 Date Kye Click ADJUNCT PHYSICS INSTRUCTOR Cosigner Signature: Date CC: Signed Normal [facility] No Panel InformationOrdered By: Johanne Evans on 07-04-2025 Unsaturated Iron Binding Capacity 146 ug/dL Low 228-428 [facility] Operative Reporton 5 Operative Report [facility] Medical Records Department [address] [place] [address] Operative Report 07/04/25 1129 MR#: [id number] Acct: [id number] Name: ITZEL ALONZO Rep #: [id number] : 1950 75 From: Nuno Campbell MD PCP: SID Haro Status:ADM IN Location: [place] [address] Problems Associated Problem List Diagnoses (1) Closed intertrochanteric fracture of right hip: Operative Report (Standard) Operative Information Date of Procedure: 07/04/25 Pre-Operative Diagnosis: Right hip intertrochanteric fracture Post-Operative Diagnosis: Same Surgery/Procedure Performed: Open reduction internal fixation right hip, long gamma nail delinquency prevention officer: Yes Lumber Stacker Driver: Silvia [place] Tasks completed by program assistant: Closing and Implanting device Additional dietary assistant?: No Type of Anesthesia: Spinal RN Documented Start/Stop Times: Operation Date: 07/04/25 12:00 Case Time Into Pre-Op 07/04/25 09:46 Out of Pre-Op 07/04/25 10:21 Anesthesia Start 07/04/25 10:22 Into Room 08/10/25 10:22 Procedure Start 07/04/25 10:46 Procedure Start [...] nail fixation, locked Surgeon: Dr. Nuno Campbell Bag End Sewer: Silvia Butler PA-C Anesthesia: spinal Medications: Ancef [...] underwent standard reduction, internal fixation using a Creola long gamma 3 nail. Nail size was 11 mm x 420. 125 degree neck angle. Proximal cross lock screw was 110. Distal cross lock screw was 42.5. X-rays taken throughout. patient services assistant, physician dietary assistant, was utilized throughout the entire procedure. They were vital to the procedure from beginning to end. They help with patient transfer, patient padding and positioning, fracture reduction, maintenance of fracture reduction, internal fixation of implants, wound closure, bandage application, patient transfer. Without neurosurgical physician assistant, surgical time would have been significantly increased and surgical outcome could have been less optimal. Procedure: Patient was taken to the operating room. Placed under a general anesthetic and transferred to the operating table with the help of the dietary assistant. With the help of the dietary assistant patient was prepped and padded for surgery. Left foot was well-padded and placed in the traction boot. Right lower extremity was abducted and flexed out of harm's way. JACQUELINE hose and SCDs utilized. Fluoroscopy was brought in. With the help of the dietary assistant and manipulation of the limb, reduction was [...] of this with the help of the dietary assistant holding the soft tissue protector appropriately. Long reaming was done starting and reaming up to 12.5 mm distally. Was then with the help of the dietary assistant . once reaming was done we placed [...] was red (more content not included)... Normal [facility] Prothrombin Time w/INRon INR Coag (PPP) [Relative time] 1.3 {INR} Normal [facility] Comment on above: Performed By: #### L 501.080 #### [facility] Laboratory [address] [place], [place], [address] PT Coag (PPP) [Time] 16.4 s High 11.7-14.9 [facility] Comment on above: Performed By: #### L 501.080 #### [facility] Laboratory [address] [place], [address] Prothrombin timeOrdered By: Kayden Merino on 07-04-2025 PT Coag (PPP) [Time] 16.4 s High 11.7-14.9 [facility] Serum globulin measurementOr dered By: Johanne Evans on 07-04-2025 Globulin (S) [Mass/Vol] 5.8 g/dL High 2.2-4.2 [facility] Serum or plasma alanine stahl otransferase (ALT) measurementOrdered By: Johanne Evans on 07-04-2025 ALT [Catalytic activity/Vol] 9 U/L <47 [facility] Serum or plasma albumin ivania urement (mass/volume)Ordered By: Johanne Evans on 07-04-2025 Albumin [Mass/Vol] 3.1 g/dL Low 3.4-4.8 [facility] Serum or plasma albumin/glob ulin mass ratioOrdered By: Johanne Evans on 07-04-2025 Albumin/Globulin [Mass ratio] 0.5 {ratio} Low 0.9-2.4 [facility] Serum or plasma alkaline brittany sphatase measurementOrdered By: Johanne Evans on 07-04-2025 ALP [Catalytic activity/Vol] 124 U/L 40-129 [facility] Serum or plasma ferritin shari surement (mass/volume)Ordered By: Johanne Evans on 07-04-2025 Ferritin [Mass/Vol] 640 ng/mL High 37-417 [facility] Serum or plasma iron saturat ion measurement (mass fraction)Ordered By: Johanne Evans on 07-04-2025 Iron saturation [Mass fraction] 10.4 % 9-55 [facility] Comment on above: Previous reported re sult: 11.0 %Edited by: NOY on 07/04/25:0703 AMENDED REPORT 07/04/25 0703 IRON SATURATION previously reported as: 11.0 % Total proteinOrdered By: Alfonso Evans on 07-04-2025 Protein [Mass/Vol] 8.9 g/dL High 5.9-8.4 [facility] Type AND Screenon 07-04-2025 Ab SCREEN GEL Negative Normal [facility] Comment on above: Order Comment: [id number] HIP Performed By: #### L 501.080 #### [facility] [place], [place], [id number] ABO and Rh group Nom (Bld) Blood group O Rh(D) positive Normal [facility] Comment on above: Order Comment: S2025 [id number] HIP Performed By: #### L 501.080 #### [facility] Laboratory [address] [place], [address] A1 CELL Not performed Normal [facility] Comment on above: Order Comment: S Result Comment: This specimen has been REJECTED due to Laboratory criteria: Quanity Not Sufficient. Autumn Shen has been notified of need of recollection. 07/04/25646 Shant L White Performed By: #### L 500.2500, L100.0100 #### [facility] [address] [place], [address] Ab SCREEN GEL Not performed Normal [facility] Comment on above: Order Comment: S Result Comment: This specimen has been REJECTED due to Laboratory criteria: Quanity Not Sufficient. Autumn Shen has been notified of need of recollection. 07/04/25646 Shant L White Performed By: #### L 500.2500, L100.0100 #### [facility] [address] [place], [address] ABO and Rh group Nom (Bld) Test Not Performed Normal [facility] Comment on above: Order Comment: S Result Comment: This specimen has been REJECTED due to Laboratory criteria: Quanity Not Sufficient. Autumn Shen has been notified of need of recollection. 07/04/25646 Shant L White Performed By: #### L 500.2500, L100.0100 #### [facility] [address] [place], [address] ANTI A Not performed Normal [facility] Comment on above: Order Comment: S Result Comment: This specimen has been REJECTED due to Laboratory criteria: Quanity Not Sufficient. Autumn Shen has been notified of need of recollection. 07/04/25646 Shant L White Performed By: #### L 500.2500, L100.0100 #### [facility] [address] [place], [address] ANTI B Not performed Normal [facility] Comment on above: Order Comment: S Result Comment: This specimen has been REJECTED due to Laboratory criteria: Quanity Not Sufficient. Autumn Shen has been notified of need of recollection. 07/04/25 0647 Shant Jordan White Performed By: #### L 500.2500, L100.0100 #### [facility] [address] [place], [address] ANTI D Not performed Normal [facility] Comment on above: Order Comment: S Result Comment: This specimen has been REJECTED due to Laboratory criteria: Quanity Not Sufficient. Autumn Shen has been notified of need of recollection. 07/04/25 0647 Shant Jordan White Performed By: #### L 500.2500, L100.0100 #### [facility] [address] [place], [address] B CELLS Not performed Normal [facility] Comment on above: Order Comment: S Result Comment: This specimen has been REJECTED due to Laboratory criteria: Quanity Not Sufficient. Autumn Shen has been notified of need of recollection. 07/04/25 0647 Shant Jordan White Performed By: #### L 500.2500, L100.0100 #### [facility] Laboratory [address] [place], [address] 12 Lead EKGon 07-03-2025 12 Lead EKG [facility] Cardiovascular Services [address] [place] [address] 12 Lead EKG 07/03/25 2142 MR#: [id number] Acct: [id number] Name: ITZEL ALONZO Rep #: [id number] : 1950 75 From: Kevin Joshi MD [...] Abnormal ECG Confirmed by KEVIN JOSHI MD ([id number]), video effects editor JOSE NYE ([id number]) on 07/05/2025 1:12:48 PM Referred By: Confirmed By: KEVIN JOSHI MD 07/05/25 1312 Date Kevin Joshi MD CC: SID Haji; Dr. Steven Tejeda DO; Dr. Anthony Salgado MD Signed Normal [facility] Absolute lymphocyte countOrd ered By: Steven Tejeda on 07-03-2025 Lymphocytes Auto (Unsp spec) [#/Vol] 0.80 10*3/uL Low 0.83-4.51 [facility] Absolute neutrophil countOrd ered By: Steven Tejeda on 07-03-2025 Neutrophils (Bld) [#/Vol] 11.4 10*3/uL High 2.0-7.7 [facility] Activated partial thrombopla stin time (aPTT) in platelet poor plasma by coagulation aOrdered By: Steven Tejeda on 07-03-2025 aPTT Coag (PPP) [Time] 22.7 s Low 24.1-36.2 [facility] Anion gap in Serum or Plasma Ordered By: Steven Tejeda on 07-03-2025 Anion gap [Moles/Vol] 13 mmol/L 5-15 [facility] Automated lymphocyte count a s percentage of total leukocytesOrdered By: Steven Tejeda on 07-03-2025 Lymphocytes/100 WBC Auto (Unsp spec) 6.3 % Low 19-41 [facility] BUN/creatinine ratioOrdered By: Steven Tejeda on 07-03-2025 Urea nitrogen/Creatinine [Mass ratio] 16.8 mg/mg 10- [facility] Basic Metabolic Profile (BMP )on 07-03-2025 BUN/CRE 16.8 RATIO Normal - [facility] Comment on above: Performed By: #### L 300.3900, L300.4310, L100.0100, L500.2500 ####[facility] [address] [place], [address] Calcium [Mass/Vol] 9.7 mg/dL Normal 7.6-11.0 [facility] Comment on above: Performed By: #### L 300.3900, L300.4310, L100.0100, L500.2500 ####[facility] [address] [place], [address] Chloride [Moles/Vol] 100 mmol/L Normal 98-108 [facility] Comment on above: Performed By: #### L 300.3900, L300.4310, L100.0100, L500.2500 ####[facility] [address] [place], [address] CO2 [Moles/Vol] 20.2 mmol/L Low 21.0-32.0 [facility] Comment on above: Performed By: #### L 300.3900, L300.4310, L100.0100, L500.2500 ####[facility] [address] [place], [address] Creatinine [Mass/Vol] 0.86 mg/dL Normal 0.70-1.20 [facility] Comment on above: Performed By: #### L 300.3900, L300.4310, L100.0100, L500.2500 ####[facility] [address] [place], [address] ECRCL 66.03 ml/min Normal 50-250 [facility] Comment on above: Performed By: #### L 300.3900, L300.4310, L100.0100, L500.2500 ####[facility] [address] [place], [address] GAP 13 Normal 5-15 [facility] Comment on above: Performed By: #### L 300.3900, L300.4310, L100.0100, L500.2500 ####[facility] [address] [place], [address] GFR/1.73 sq M.predicted among non-blacks MDRD (S/P/Bld) [Vol rate/Area] 89 mL/min/{1.73_m2} Normal >60 [facility] Comment on above: Result Comment: mL/m in/1.73m2 CKD-EPI Creatinine Equation (2020) Performed By: #### L 300.3900, L300.4310, L100.0100, L500.2500 ####[facility] [address] [place], [address] Glucose [Mass/Vol] 204 mg/dL High 70-99 [facility] Comment on above: Performed By: #### L 300.3900, L300.4310, L100.0100, L500.2500 ####[facility] [address] [place], [address] Potassium [Moles/Vol] 4.8 mmol/L Normal 3.3-5.1 [facility] Comment on above: Performed By: #### L 300.3900, L300.4310, L100.0100, L500.2500 ####[facility] [address] [place], [address] Sodium [Moles/Vol] 133 mmol/L Normal 133-145 [facility] Comment on above: Performed By: #### L 300.3900, L300.4310, L100.0100, L500.2500 ####[facility] [address] [place], [address] Urea nitrogen [Mass/Vol] 14 mg/dL Normal 4-19 [facility] Comment on above: Performed By: #### L 300.3900, L300.4310, L100.0100, L500.2500 ####[facility] [address] [place], [address] Basophil percentageOrdered B y: Steven Tejeda on 07-03-2025 Basophils/100 WBC (Bld) 0.2 % 0-1 [facility] Bilirubin Test strip Ql (U)O rdered By: Steven Tejeda on 07-03-2025 Bilirubin Ql (U) Negative Negative [facility] Blood manual differential co mment interpretation (narrative result)Ordered By: Steven Tejeda on 07-03-2025 Manual differential comment Refugio (Bld) [Interp] SCANNED [facility] CBC W/Diff, Automatedon 08-0 OTHER CELLS RARE Normal [facility] Comment on above: Result Comment: FRAG MENTED CELLS Performed By: #### L 300.3900, L300.4310, L100.0100, L500.2500 ####[facility] [address] [place], [address] Anisocytosis Ql (Bld) 1+ Normal [facility] Comment on above: Performed By: #### L 300.3900, L300.4310, L100.0100, L500.2500 ####[facility] [address] [place], [address] ALLYSON CELLS RARE Normal [facility] Comment on above: Performed By: #### L 300.3900, L300.4310, L100.0100, L500.2500 ####[facility] [address] [place], [address] HYPOCHROMASIA 1+ Normal [facility] Comment on above: Performed By: #### L 300.3900, L300.4310, L100.0100, L500.2500 ####[facility] [address] [place], [address] MICROCYTIC 1+ Normal [facility] Comment on above: Performed By: #### L 300.3900, L300.4310, L100.0100, L500.2500 ####[facility] [address] [place], [address] SMEAR COMMENT SCANNED Normal [facility] Comment on above: Performed By: #### L 300.3900, L300.4310, L100.0100, L500.2500 ####[facility] [address] [place], [address] Carbon dioxide, total [Moles /volume] in Central venous bloodOrdered By: Steven Tejeda on 07-03-2025 CO2 [Moles/Vol] 20.2 mmol/L Low 21.0-32.0 [facility] Chloride assayOrdered By: Emil Tejeda on 07-03-2025 Chloride [Moles/Vol] 100 mmol/L 98-108 [facility] Crenated erythrocyte detecti on by light microscopyOrdered By: Steven Tejeda on 07-03-2025 Holden cells LM Ql (Bld) RARE [facility] Emergency Department Summary on 07-03-2025 Emergency Department Summary [facility] Medical Records Department [address] [place] [address] Emergency Department Summary 07/03/25 MR#: [id number] Acct: [id number] Name: ITZEL ALONZO Rep #: [id number] : 1950 75 From: Steven Tejeda DO PCP: Carlene Haji EMPLOYMENT SERVICES DIRECTOR-C Status:ADM [facility] History of Present Illness HPI Narrative: [...] for Parasthesia, Weakness or Loss of Funtion PFSH [facility] Medical History (Updated 07/03/25 @ 23:18 by [...] lower extrem (more content not included)... Normal [facility] Eosinophil percentageOrdered By: Steven Tejeda on 07-03-2025 Eosinophils/100 WBC (Bld) 0.1 % 0-5 [facility] Erythrocyte distribution wid th ratioOrdered By: Steven Tejeda on 07-03-2025 Erythrocyte distribution width (RBC) [Ratio] 22.6 % High 11.6-14.6 [facility] Erythrocyte distribution wid th standard deviationOrdered By: Steven Tejeda on 07-03-2025 Erythrocyte distribution width (RBC) [Ratio] 56.9 fl High 35.1-43.9 [facility] Erythrocyte morphology asses smentOrdered By: Steven Tejeda on 07-03-2025 RBC morphology finding Nom (Bld) RARE [facility] Comment on above: FRAGMENTED CELLS Extremity Lower without Cont raon 07-03-2025 Extremity Lower without Contra [facility] Imaging Services [address] [place] [address] Extremity Lower without Contra MR#: [id number] Acct: [id number] Name: ITZEL ALONZO Rep #: [id number] : 1950 M 75 From: Radha Garcia nd, MD PCP: Carlene Haji, EMPLOYMENT SERVICES DIRECTOR-C Status: REG ER Study: Extremity Lower without Contra Date of Exam: 0 07/03/25 Exam# [id number] Ordering Dr: Nuno Campbell MD PROCEDURE: EXTREMITY [...] fracture. No aggressive osseous lesions. Reading Location: [id number] CC: EMPLOYMENT SERVICES DIRECTOR-C Carlene Haji; Dr. Nuno Campbell MD Police Investigator: Signed Normal [facility] Glomerular filtration rate ( GFR) estimation/1.73 sq m using serum, plasma, or whole bOrdered By: Steven Tejeda on 07-03-2025 GFR/1.73 sq M.predicted among non-blacks MDRD (S/P/Bld) [Vol rate/Area] 89 mL/min/{1.73_m2} >60 [facility] Comment on above: mL/min/1.73m2 CKD-EP I Creatinine Equation (2020) H AND P Exam - [facility] 07-03-2025 H&P Exam - Hospitalist [facility] Medical Records Department [address] [place] [address] H P Exam - Hospitalist 07/03/252236 MR#: [id number] Acct: [id number] Name: ITZEL ALONZO Rep #: [id number] : 1950 75 From: Johanne Evans MD PCP: Carlene Haji, EMPLOYMENT SERVICES DIRECTOR-C Status:ADM IN Location: [facility] [id number] HPI - General General Date of Admission: [...] tobacco use, COPD, recent transfer to the [facility] from [facility] on 05/13/25 following large right-sided lung cancer wit suspected postobstructive pneumonia with acute metabolic encephalopathy suspected secondary to hypercalcemia of malignancy in addition to acute on chronic anemia with suspected upper GI bleed for further evaluation who now presents to the [facility] ED on 07/03/2025 with onset of right [...] osseous lesion would plan to admit to [facility] and evaluate for repair of hip fracture. [facility] Medical History (Updated 07/03/25 @ 23:18 by [...] day smoke (more content not included)... Normal [facility] HIP, UNI W/ Pelvis 2-3 Views on 07-03-2025 HIP, UNI W/ Pelvis 2-3 Views [facility] Imaging Services [address] [place] [address] HIP, UNI W/ Pelvis 2-3 Views MR#: [id number] Acct: [id number] Name: ITZEL ALONZO Rep #: [id number] : 1950 M 75 From: Radha Garcia nd, MD PCP: SID Haro Status: REG ER Study: HIP, UNI W/ Pelvis 2-3 Views Date of Exam: 08/19 Exam# [id number] Ordering Dr: Steven Tejeda DO PROCEDURE: HIP, [...] Malignancy can not be excluded. Reading Location: [facility] CC: SID Haji; Dr. Steven Tejeda, DO Police Investigator: Signed Normal [facility] Hematocrit Auto (Bld) [Volum e fraction]Ordered By: Steven Tejeda on 07-03-2025 Hematocrit (Bld) [Volume fraction] 27.9 % Low 40-54 [facility] Hemoglobin measurementOrdere d By: Steven Tejeda on 07-03-2025 Hemoglobin (Bld) [Mass/Vol] 8.4 g/dL Low 13.0-16.5 [facility] Hyaline casts LM.LPF (Urine sed) [#/Area]Ordered By: Steven Tejeda on 07-03-2025 Hyaline casts (Urine sed) [#/Area] 0 /[LPF] 0-5 [facility] Hypochromatic red blood cell detectionOrdered By: Steven Tejeda on 07-03-2025 Hypochromia Ql (Bld) 1+ [facility] Immature granulocytes/100 WB C Auto (Bld)Ordered By: Steven Tejeda on 07-03-2025 Immature granulocytes/100 WBC (Bld) 0.500 % 0.0-0.9 [facility] Comment on above: IG% - Immature Granu locytes (promyelocytes, myelocytes and metamyelocytes) > 1% indicates that a LEFT SHIFT is Present. International normalized rat io (INR) calculationOrdered By: Steven Tejeda on 07-03-2025 INR Coag (Bld) [Relative time] 1.2 {INR} [facility] Ketones Test strip Ql (U)Ord ered By: Steven Tejeda on 07-03-2025 Ketones Ql (U) Negative Negative [facility] Laboratory - Hematology and Cell countsOrdered By: Steven Tejeda on 07-03-2025 Anisocytosis Ql (Bld) 1+ [facility] MCV (mean corpuscular volume ) determinationOrdered By: Steven Tejeda on 07-03-2025 MCV (RBC) [Entitic vol] 70.6 fL Low 80-94 [facility] Magnesiumon 07-03-2025 Magnesium [Mass/Vol] 1.9 mg/dL Normal 1.5-2.2 [facility] Comment on above: Order Comment: Comme nts: May add to ED labsComments: may add to ED labs Performed By: #### L 501.080 #### [facility] Laboratory [address] [place], [address] Mean corpuscular hemoglobin (MCH) determinationOrdered By: Steven Tejeda on 07-03-2025 MCH (RBC) [Entitic mass] 21.3 pg Low 27.0-32.0 [facility] Mean corpuscular hemoglobin concentration (MCHC) determinationOrdered By: Steven Tejeda on 07-03-2025 MCHC (RBC) [Mass/Vol] 30.1 g/dL Low 32-36 [facility] Mean platelet volume determi nationOrdered By: Steven Tejeda on 07-03-2025 Platelet mean volume (Bld) [Entitic vol] 9.1 fL 6.2-12.0 [facility] Microscopic analysis of urin e for red blood cells (RBC)Ordered By: Steven Tejeda on 07-03-2025 Microscopic analysis of urine for red blood cells (RBC) 0-5 SEEN /hpf 0-5 [facility] Monocyte percentageOrdered B y: Steven Tejeda on 07-03-2025 Monocytes/100 WBC (Bld) 2.8 % 0-10 [facility] Mucus LM Ql (Urine sed)Order ed By: Steven Tejeda on 07-03-2025 Mucus Ql (Urine sed) 0 SEEN /hpf [facility] Natriuretic peptide.B prohor paul N-Terminal [Mass/volume] in Serum or PlasmaOrdered By: Johanne Evans on 07-03-2025 Natriuretic peptide.B prohormone N-Terminal [Mass/Vol] 372 pg/mL <1800 [facility] Comment on above: Heart Failure Unlike ly: < 300 pg/mLHeart Failure Likely< 50 Years: > 450 pg/mL50-75 Years: > 900 pg/mL>75 Years: > 1800 pg/mL Neutrophil percentageOrdered By: Steven Tejeda on 07-03-2025 Neutrophils/100 WBC (Bld) 90.1 % High 47-70 [facility] Nitrite Test strip Ql (U)Ord ered By: Steven Tejeda on 07-03-2025 Nitrite Ql (U) Negative Negative [facility] Nucleated red blood cell per centageOrdered By: Steven Tejeda on 07-03-2025 Nucleated RBC/100 WBC (Bld) [Ratio] 0 % 0-5 [facility] Partial Thromboplast Timeon 07-03-2025 aPTT Coag (Bld) [Time] 22.7 s Low 24.1-36.2 [facility] Comment on above: Performed By: #### L 300.3900, L300.4310, L100.0100, L500.2500 ####[facility] [id number] [place], [address] Phosphoruson 07-03-2025 Phosphate [Mass/Vol] 2.5 mg/dL Low 2.7-4.5 [facility] Comment on above: Order Comment: Comme nts: May add to ED labsComments: may add to ED labs Performed By: #### L 501.080 #### [facility] [address] [place], [address] Platelet countOrdered By: Emil Tejeda on 07-03-2025 Platelets (Bld) [#/Vol] 300 10*3/uL 150-450 [facility] Potassium measurement (mass/ volume)Ordered By: Steven Tejeda on 07-03-2025 Potassium (Unsp spec) [Mass/Vol] 4.8 mmol/L 3.3-5.1 [facility] Pro- Brain NATRIURETIC PEPTI Rodri 07-03-2025 Natriuretic peptide B (Bld) [Mass/Vol] 372 pg/mL Normal <=1800 [facility] Comment on above: Order Comment: Comme nts: May add to ED labsComments: may add to ED labs Result Comment: Hear t Failure Unlikely: < 300 pg/mL Heart Failure Likely < 50 Years: > 450 pg/mL 50-75 Years: > 900 pg/mL >75 Years: > 1800 pg/mL Performed By: #### L 501.080 #### [facility] [address] [place], [place], [address] Protein Test strip Ql (U)Ord ered By: Steven Tejeda on 07-03-2025 Protein Ql (U) 100 mg/dl High Negative [facility] Prothrombin Time w/INRon INR Coag (PPP) [Relative time] 1.2 {INR} Normal [facility] Comment on above: Performed By: #### L 300.3900, L300.4310, L100.0100, L500.2500 ####[facility] [address] [place], [address] PT Coag (PPP) [Time] 15.5 s High 11.7-14.9 [facility] Comment on above: Performed By: #### L 300.3900, L300.4310, L100.0100, L500.2500 ####[facility] [address] [place], [address] Prothrombin timeOrdered By: Steven Tejeda on 07-03-2025 PT Coag (PPP) [Time] 15.5 s High 11.7-14.9 [facility] RBC Auto (Bld) [#/Vol]Ordere d By: Steven Tejeda on 07-03-2025 RBC (Bld) [#/Vol] 3.95 10*6/uL Low 4.6-6.2 [facility] Serum creatinine measurement (mass/volume)Ordered By: Steven Tejeda on 07-03-2025 Creatinine [Mass/Vol] 0.86 mg/dL 0.70-1.20 [facility] Serum glucose measurement (m ass/volume)Ordered By: Steven Tejeda on 07-03-2025 Glucose [Mass/Vol] 204 mg/dL High 70-99 [facility] Serum or plasma calcium ivania urement (mass/volume)Ordered By: Steven Tejeda on 07-03-2025 Calcium [Mass/Vol] 9.7 mg/dL 7.6-11.0 [facility] Serum or plasma urea nitroge n measurement (mass/volume)Ordered By: Steven Tejeda on 07-03-2025 Urea nitrogen [Mass/Vol] 14 mg/dL 4-19 [facility] Sodium levelOrdered By: Steven Tejeda on 07-03-2025 Sodium [Moles/Vol] 133 mmol/L 133-145 [facility] Squamous epithelial cells de tection in urine sediment by light microscopyOrdered By: Steven Tejeda on 07-03-2025 Epithelial cells.squamous LM Ql (Urine sed) 0-5 SEEN /hpf 0-5 [facility] Urinalysis, Completeon 07-03 BACTERIA RARE Normal None Seen [facility] Comment on above: Order Comment: CLEAN CATCH Performed By: #### L 501.080 #### [facility] [address] [place], [address] CAST,HYALINE 0-5 SEEN Normal 0-5 [facility] Comment on above: Order Comment: CLEAN CATCH Performed By: #### L 501.080 #### [facility] [address] [place], [address] EPI,SQUAMOUS 0-5 SEEN Normal 0-5 [facility] Comment on above: Order Comment: CLEAN CATCH Performed By: #### L 501.080 #### [facility] [address] [place], [address] RBC 0-5 SEEN Normal 0-5 [facility] Comment on above: Order Comment: CLEAN CATCH Performed By: #### L 501.080 #### [facility] [address] [place], [address] WBC 0-5 SEEN Normal 0-5 [facility] Comment on above: Order Comment: CLEAN CATCH Performed By: #### L 501.080 #### [facility] [address] [place], [address] Mucus Ql (Urine sed) 0 SEEN Normal [facility] Comment on above: Order Comment: CLEAN CATCH Performed By: #### L 501.080 #### [facility] [address] [place], [place], [id number] Urine clarityOrdered By: Pat Tejeda on 07-03-2025 Clarity (U) Clear Clear [facility] Urine color determinationOrd ered By: Steven Tejeda on 07-03-2025 Color (U) Yellow Yellow [facility] Urine glucose detectionOrder ed By: Steven Tejeda on 07-03-2025 Glucose Ql (U) 100 mg/dl High Normal [facility] Urine leukocyte esterase det ection by dipstickOrdered By: Steven Tejeda on 07-03-2025 Leukocyte esterase Test strip Ql (U) Negative Negative [facility] Urine pHOrdered By: Steven proctor on 07-03-2025 pH (U) 6.0 [pH] 5.0 - 8.0 [facility] Urine sediment bacteria coun t by microscopy (number/high power field)Ordered By: Steven Tejeda on 07-03-2025 Bacteria LM.HPF (Urine sed) [#/Area] RARE /hpf None Seen [facility] Urine specific gravity measu rementOrdered By: Steven Tejeda on 07-03-2025 Specific gravity (U) [Rel density] 1.010 1.002-1.030 [facility] Urine urobilinogen measureme ntOrdered By: Steven Tejeda on 07-03-2025 Urobilinogen Ql (U) Normal mg/dl Normal [facility] White blood cell (WBC) count Ordered By: Steven Tejeda on 07-03-2025 WBC (Bld) [#/Vol] 12.7 10*3/uL High 4.4-11.0 [facility] White blood cell countOrdere d By: Steven Tejeda on 07-03-2025 White blood cell count 0-5 SEEN /hpf 0-5 [facility] Basic Metabolic Profile (BMP )on 05-14-2025 BUN Normal 4-19 [facility] Comment on above: Result Comment: Canc elled via OM: Order cancelled - Patient discharged Performed By: #### L 500.2500, L100.0100 #### [facility] [address] [place], [address] BUN/CRE Normal 10-20 [facility] Comment on above: Result Comment: Canc elled via OM: Order cancelled - Patient discharged Performed By: #### L 500.2500, L100.0100 #### [facility] [address] [place], [address] Calcium Normal 7.6-11.0 [facility] Comment on above: Result Comment: Canc elled via OM: Order cancelled - Patient discharged Performed By: #### L 500.2500, L100.0100 #### [facility] [address] [place], [address] CL Normal 98-108 [facility] Comment on above: Result Comment: Canc elled via OM: Order cancelled - Patient discharged Performed By: #### L 500.2500, L100.0100 #### [facility] [address] [place], [address] CO2 Normal 21.0-32.0 [facility] Comment on above: Result Comment: Canc elled via OM: Order cancelled - Patient discharged Performed By: #### L 500.2500, L100.0100 #### [facility] [address] [place], [address] CREAT,SERUM Normal 0.70-1.20 [facility] Comment on above: Result Comment: Canc elled via OM: Order cancelled - Patient discharged Performed By: #### L 500.2500, L100.0100 #### [facility] [address] [place], [address] eGFR Normal >60 [facility] Comment on above: Result Comment: Canc elled via OM: Order cancelled - Patient discharged Performed By: #### L 500.2500, L100.0100 #### [facility] [address] [place], [address] GAP Normal 5-15 [facility] Comment on above: Result Comment: Canc elled via OM: Order cancelled - Patient discharged Performed By: #### L 500.2500, L100.0100 #### [facility] [address] [place], [address] GLU Normal 70-99 [facility] Comment on above: Result Comment: Canc elled via OM: Order cancelled - Patient discharged Performed By: #### L 500.2500, L100.0100 #### [facility] [address] [place], [address] Potassium Normal 3.3-5.1 [facility] Comment on above: Result Comment: Canc elled via OM: Order cancelled - Patient discharged Performed By: #### L 500.2500, L100.0100 #### [facility] [address] [place], [address] Basic Metabolic Profile (BMP) Normal 133-145 [facility] Comment on above: Result Comment: Canc elled via OM: Order cancelled - Patient discharged Performed By: #### L 500.2500, L100.0100 #### [facility] [address] [place], [address] CBC W/Diff, Automatedon 06-2 0-2024 Absolute Neut Normal 2.0-7.7 [facility] Comment on above: Result Comment: Canc elled via OM: Order cancelled - Patient discharged Performed By: #### L 500.2500, L100.0100 #### [facility] [address] [place], [address] HCT Normal 40-54 [facility] Comment on above: Result Comment: Canc elled via OM: Order cancelled - Patient discharged Performed By: #### L 500.2500, L100.0100 #### [facility] [address] [place], [address] HGB Normal 13.0-16.5 [facility] Comment on above: Result Comment: Canc elled via OM: Order cancelled - Patient discharged Performed By: #### L 500.2500, L100.0100 #### [facility] [address] [place], [address] MCH Normal 27.0-32.0 [facility] Comment on above: Result Comment: Canc elled via OM: Order cancelled - Patient discharged Performed By: #### L 500.2500, L100.0100 #### [facility] [address] [place], [address] MCHC Normal 32-36 [facility] Comment on above: Result Comment: Canc elled via OM: Order cancelled - Patient discharged Performed By: #### L 500.2500, L100.0100 #### [facility] [address] [place], [address] MCV Normal 80-94 [facility] Comment on above: Result Comment: Canc elled via OM: Order cancelled - Patient discharged Performed By: #### L 500.2500, L100.0100 #### [facility] [address] [place], [address] NEUT% Normal 47-70 [facility] Comment on above: Result Comment: Canc elled via OM: Order cancelled - Patient discharged Performed By: #### L 500.2500, L100.0100 #### [facility] [address] [place], [address] PLT Normal 150-450 [facility] Comment on above: Result Comment: Canc elled via OM: Order cancelled - Patient discharged Performed By: #### L 500.2500, L100.0100 #### [facility] [address] [place], [address] RBC Normal 4.6-6.2 [facility] Comment on above: Result Comment: Canc elled via OM: Order cancelled - Patient discharged Performed By: #### L 500.2500, L100.0100 #### [facility] [address] [place], [address] RDW CV Normal 11.6-14.6 [facility] Comment on above: Result Comment: Canc elled via OM: Order cancelled - Patient discharged Performed By: #### L 500.2500, L100.0100 #### [facility] [address] [place], [address] RDW SD Normal 35.1-43.9 [facility] Comment on above: Result Comment: Canc elled via OM: Order cancelled - Patient discharged Performed By: #### L 500.2500, L100.0100 #### [facility] [address] [place], [address] WBC Normal 4.4-11.0 [facility] Comment on above: Result Comment: Canc elled via OM: Order cancelled - Patient discharged Performed By: #### L 500.2500, L100.0100 #### [facility] [address] [place], [address] Absolute lymphocyte countOrd ered By: Anthony Salgado on 05-13-2025 Lymphocytes Auto (Unsp spec) [#/Vol] 1.93 10*3/uL 0.83-4.51 [facility] Absolute neutrophil countOrd ered By: Anthony Salgado on 05-13-2025 Neutrophils (Bld) [#/Vol] 8.9 10*3/uL High 2.0-7.7 [facility] Anion gap in Serum or Plasma Ordered By: Anthony Salgado on 05-13-2025 Anion gap [Moles/Vol] 11 mmol/L 5-15 [facility] Automated lymphocyte count a s percentage of total leukocytesOrdered By: Anthony Salgado on 05-13-2025 Lymphocytes/100 WBC Auto (Unsp spec) 16.4 % Low 19-41 [facility] BUN/creatinine ratioOrdered By: Anthony Salgado on 05-13-2025 Urea nitrogen/Creatinine [Mass ratio] 9.2 mg/mg Low 10-20 [facility] Basic Metabolic Profile (BMP )on 05-13-2025 BUN/CRE 9.2 RATIO Low 10-20 [facility] Comment on above: Performed By: #### L 501.080 #### [facility] [address] [place], [address] Calcium [Mass/Vol] 9.7 mg/dL Normal 7.6-11.0 [facility] Comment on above: Performed By: #### L 501.080 #### [facility] [address] [place], [address] Chloride [Moles/Vol] 104 mmol/L Normal 98-108 [facility] Comment on above: Performed By: #### L 501.080 #### [facility] [address] [place], [address] CO2 [Moles/Vol] 22.8 mmol/L Normal 21.0-32.0 [facility] Comment on above: Performed By: #### L 501.080 #### [facility] [address] [place], [address] Creatinine [Mass/Vol] 1.07 mg/dL Normal 0.70-1.20 [facility] Comment on above: Performed By: #### L 501.080 #### [facility] [address] [place], [address] ECRCL 53.58 ml/min Normal 50-250 [facility] Comment on above: Performed By: #### L 501.080 #### [facility] [address] [place], [address] GAP 11 Normal 5-15 [facility] Comment on above: Performed By: #### L 501.080 #### [facility] [address] [place], [address] GFR/1.73 sq M.predicted among non-blacks MDRD (S/P/Bld) [Vol rate/Area] 72 mL/min/{1.73_m2} Normal >60 [facility] Comment on above: Result Comment: mL/m in/1.73m2 CKD-EPI Creatinine Equation (2020) Performed By: #### L 501.080 #### [facility] [address] [place], [address] Glucose [Mass/Vol] 207 mg/dL High 70-99 [facility] Comment on above: Performed By: #### L 501.080 #### [facility] [address] [place], [address] Potassium [Moles/Vol] 3.2 mmol/L Low 3.3-5.1 [facility] Comment on above: Performed By: #### L 501.080 #### [facility] [address] [place], [address] Sodium [Moles/Vol] 137 mmol/L Normal 133-145 [facility] Comment on above: Performed By: #### L 501.080 #### [facility] [address] [place], [address] Urea nitrogen [Mass/Vol] 10 mg/dL Normal 4-19 [facility] Comment on above: Performed By: #### L 501.080 #### [facility] [address] [place], [address] Basophil percentageOrdered B y: Anthony Salgado on 05-13-2025 Basophils/100 WBC (Bld) 0.2 % 0-1 [facility] Bedside Glucoseon 05-13-2025 FINGERSTICK GLU 325 mg/dL High 74-106 [facility] Comment on above: Result Comment: BELLA PENALOZA OF PATIENT CARE PER NURSING PROTOCOL Performed By: #### L 501.080 ####[facility] [address] [place], [address] FINGERSTICK GLU 190 mg/dL High 74-106 [facility] Comment on above: Result Comment: BELLA PENALOZA OF PATIENT CARE PER NURSING PROTOCOL Performed By: #### L 501.080 ####[facility] [address] [place], [address] CBC W/Diff, Automatedon - Absolute Lymph 1.93 X10 3/uL Normal 0.83-4.51 [facility] Comment on above: Performed By: #### L 501.080 #### [facility] [address] [place], [address] Absolute Neut 8.9 X10 3/uL High 2.0-7.7 [facility] Comment on above: Performed By: #### L 501.080 #### [facility] [address] [place], [address] Basophils/100 WBC (Bld) 0.2 % Normal 0-1 [facility] Comment on above: Performed By: #### L 501.080 #### [facility] [address] [place], [address] Eosinophils/100 WBC (Bld) 0.9 % Normal 0-5 [facility] Comment on above: Performed By: #### L 501.080 #### [facility] [address] [place], [address] Erythrocyte distribution width (RBC) [Ratio] 18.4 % High 11.6-14.6 [facility] Comment on above: Performed By: #### L 501.080 #### [facility] [address] [place], [address] Hematocrit (Bld) [Volume fraction] 25.4 % Low 40-54 [facility] Comment on above: Performed By: #### L 501.080 #### [facility] [address] [place], [address] Hemoglobin (Bld) [Mass/Vol] 7.7 g/dL Low 13.0-16.5 [facility] Comment on above: Performed By: #### L 501.080 #### [facility] [address] [place], [address] IG% 0.300 Normal 0.0-0.9 [facility] Comment on above: Result Comment: IG% - Immature Granulocytes (promyelocytes, myelocytes and metamyelocytes) > 1% indicates that a LEFT SHIFT is Present. Performed By: #### L 501.080 #### [facility] [address] [place], [address] Lymphocytes/100 WBC (Bld) 16.4 % Low 19-41 [facility] Comment on above: Performed By: #### L 501.080 #### [facility] [address] [place], [address] MCH (RBC) [Entitic mass] 19.7 pg Low 27.0-32.0 [facility] Comment on above: Performed By: #### L 501.080 #### [facility] [address] [place], [address] MCHC (RBC) [Mass/Vol] 30.3 g/dL Low 32-36 [facility] Comment on above: Performed By: #### L 501.080 #### [facility] [address] [place], [address] MCV (RBC) [Entitic vol] 65.0 fL Low 80-94 [facility] Comment on above: Performed By: #### L 501.080 #### [facility] [address] [place], [address] Monocytes/100 WBC (Bld) 6.5 % Normal 0-10 [facility] Comment on above: Performed By: #### L 501.080 #### [facility] [address] [place], [address] Neutrophils/100 WBC (Bld) 75.7 % High 47-70 [facility] Comment on above: Performed By: #### L 501.080 #### [facility] [address] [place], [address] Nucleated RBC (Bld) [#/Vol] 0 10*3/uL Normal 0-5 [facility] Comment on above: Performed By: #### L 501.080 #### [facility] [address] [place], [address] Platelet mean volume (Bld) [Entitic vol] 10.0 fL Normal 6.2-12.0 [facility] Comment on above: Performed By: #### L 501.080 #### [facility] [address] [place], [address] Platelets (Bld) [#/Vol] 358 10*3/uL Normal 150-450 [facility] Comment on above: Performed By: #### L 501.080 #### [facility] [address] [place], [address] RBC (Bld) [#/Vol] 3.91 10*6/uL Low 4.6-6.2 [facility] Comment on above: Performed By: #### L 501.080 #### [facility] [address] [place], [address] RDW SD 43.1 fl Normal 35.1-43.9 [facility] Comment on above: Performed By: #### L 501.080 #### [facility] [address] [place], [address] WBC (Bld) [#/Vol] 11.8 10*3/uL High 4.4-11.0 [facility] Comment on above: Performed By: #### L 501.080 #### [facility] [address] [place], [address] Carbon dioxide, total [Moles /volume] in Central venous bloodOrdered By: Anthony Salgado on 05-13-2025 CO2 [Moles/Vol] 22.8 mmol/L 21.0-32.0 [facility] Chloride assayOrdered By: Venessa Salgado on 05-13-2025 Chloride [Moles/Vol] 104 mmol/L 98-108 [facility] Eosinophil percentageOrdered By: Anthony Salgado on 05-13-2025 Eosinophils/100 WBC (Bld) 0.9 % 0-5 [facility] Erythrocyte distribution wid th ratioOrdered By: Anthony Salgado on 05-13-2025 Erythrocyte distribution width (RBC) [Ratio] 18.4 % High 11.6-14.6 [facility] Erythrocyte distribution wid th standard deviationOrdered By: Anthony Salgado on 05-13-2025 Erythrocyte distribution width (RBC) [Ratio] 43.1 fl 35.1-43.9 [facility] Glomerular filtration rate ( GFR) estimation/1.73 sq m using serum, plasma, or whole bOrdered By: Anthony Salgado on 05-13-2025 GFR/1.73 sq M.predicted among non-blacks MDRD (S/P/Bld) [Vol rate/Area] 72 mL/min/{1.73_m2} >60 [facility] Comment on above: mL/min/1.73m2 CKD-EP I Creatinine Equation (2020) Glucose measurement at bedsi deOrdered By: Anthony Salgado on 05-13-2025 Glucose [Mass/Vol] 325 mg/dL High 74-106 [facility] Comment on above: MANAGEMENT OF PATIEN T CARE PER NURSING PROTOCOL Hematocrit Auto (Bld) [Volum e fraction]Ordered By: Anthony Salgado on 05-13-2025 Hematocrit (Bld) [Volume fraction] 25.4 % Low 40-54 [facility] Hemoglobin measurementOrdere d By: Anthony Salgado on 05-13-2025 Hemoglobin (Bld) [Mass/Vol] 7.7 g/dL Low 13.0-16.5 [facility] Immature granulocytes/100 WB C Auto (Bld)Ordered By: Anthony Salgado on 05-13-2025 Immature granulocytes/100 WBC (Bld) 0.300 % 0.0-0.9 [facility] Comment on above: IG% - Immature Granu locytes (promyelocytes, myelocytes and metamyelocytes) > 1% indicates that a LEFT SHIFT is Present. MCV (mean corpuscular volume ) determinationOrdered By: Anthony Salgado on 05-13-2025 MCV (RBC) [Entitic vol] 65.0 fL Low 80-94 [facility] Mean corpuscular hemoglobin (MCH) determinationOrdered By: Anthony Salgado on 05-13-2025 MCH (RBC) [Entitic mass] 19.7 pg Low 27.0-32.0 [facility] Mean corpuscular hemoglobin concentration (MCHC) determinationOrdered By: Anthony Salgado on 05-13-2025 MCHC (RBC) [Mass/Vol] 30.3 g/dL Low 32-36 [facility] Mean platelet volume determi nationOrdered By: Anthony Salgado on 05-13-2025 Platelet mean volume (Bld) [Entitic vol] 10.0 fL 6.2-12.0 [facility] Monocyte percentageOrdered B y: Anthony Salgado on 05-13-2025 Monocytes/100 WBC (Bld) 6.5 % 0-10 [facility] Neutrophil percentageOrdered By: Anthony Salgado on 05-13-2025 Neutrophils/100 WBC (Bld) 75.7 % High 47-70 [facility] Nucleated red blood cell per centageOrdered By: Anthony Salgado on 05-13-2025 Nucleated RBC/100 WBC (Bld) [Ratio] 0 % 0-5 [facility] Platelet countOrdered By: Venessa Salgado on 05-13-2025 Platelets (Bld) [#/Vol] 358 10*3/uL 150-450 [facility] Potassium measurement (mass/ volume)Ordered By: Anthony Salgado on 05-13-2025 Potassium (Unsp spec) [Mass/Vol] 3.2 mmol/L Low 3.3-5.1 [facility] RBC Auto (Bld) [#/Vol]Ordere d By: Anthony Salgado on 05-13-2025 RBC (Bld) [#/Vol] 3.91 10*6/uL Low 4.6-6.2 [facility] Serum creatinine measurement (mass/volume)Ordered By: Anthony Salgado on 05-13-2025 Creatinine [Mass/Vol] 1.07 mg/dL 0.70-1.20 [facility] Serum glucose measurement (m ass/volume)Ordered By: Anthony Salgado on 05-13-2025 Glucose [Mass/Vol] 207 mg/dL High 70-99 [facility] Serum or plasma calcium ivania urement (mass/volume)Ordered By: Anthony Salgado on 05-13-2025 Calcium [Mass/Vol] 9.7 mg/dL 7.6-11.0 [facility] Serum or plasma urea nitroge n measurement (mass/volume)Ordered By: Anthony Salgado on 05-13-2025 Urea nitrogen [Mass/Vol] 10 mg/dL 4-19 [facility] Sodium levelOrdered By: J Luis Salgado on 05-13-2025 Sodium [Moles/Vol] 137 mmol/L 133-145 [facility] Trough vancomycin levelOrder ed By: Lane Stanley on 05-13-2025 Vancomycin trough [Mass/Vol] 8.6 ug/mL 5.0-15.0 [facility] Comment on above: Recommended goal tro ugh [...] therapy recommended for serious lifethreatening infections include:- Skeqirsnxv-Tnfogtdnnqga-Ploufxvhf (Ventilator/Healtcare Associated)-Sepsis PLEASE CONTACT PHARMACY SERVICES (#[id number]) FOR INTERPRETATIONOF RESULTS. Vancomycin, Trough Levelon 0 05-13-2025 VANCO, TROUGH 8.6 ug/mL Normal 5.0-15.0 [facility] Comment on above: Order Comment: Comme nts: Trough to be drawn 30 mins prior to scheduled [id number] Result Comment: Jose A mmended goal trough [...] (Ventilator/Healtcare Associated) -Sepsis PLEASE CONTACT PHARMACY SERVICES (#[id number]) FOR INTERPRETATION OF RESULTS. Performed By: #### L 501.8820 ####[facility] [address] [place], [address] White blood cell (WBC) count Ordered By: Anthony Salgado on 05-13-2025 WBC (Bld) [#/Vol] 11.8 10*3/uL High 4.4-11.0 [facility] Basic Metabolic Profile (BMP )on 05-12-2025 BUN/CRE 10.8 RATIO Normal 10-20 [facility] Comment on above: Performed By: #### L 501.080 #### [facility] Laboratory [address] [place], [address] Calcium [Mass/Vol] 10.3 mg/dL Normal 7.6-11.0 [facility] Comment on above: Performed By: #### L 501.080 #### [facility] Laboratory [address] [place], [address] Chloride [Moles/Vol] 103 mmol/L Normal 98-108 [facility] Comment on above: Performed By: #### L 501.080 #### [facility] Laboratory [address] [place], [address] CO2 [Moles/Vol] 23.7 mmol/L Normal 21.0-32.0 [facility] Comment on above: Performed By: #### L 501.080 #### [facility] Laboratory [address] [place], [address] Creatinine [Mass/Vol] 0.92 mg/dL Normal 0.70-1.20 [facility] Comment on above: Performed By: #### L 501.080 #### [facility] Laboratory [address] [place], [address] ECRCL 62.32 ml/min Normal 50-250 [facility] Comment on above: Performed By: #### L 501.080 #### [facility] Laboratory [address] [place], [address] GAP 11 Normal 5-15 [facility] Comment on above: Performed By: #### L 501.080 #### [facility] Laboratory [address] [place], [address] GFR/1.73 sq M.predicted among non-blacks MDRD (S/P/Bld) [Vol rate/Area] 87 mL/min/{1.73_m2} Normal >60 [facility] Comment on above: Result Comment: mL/m in/1.73m2 CKD-EPI Creatinine Equation (2020) Performed By: #### L 501.080 #### [facility] Laboratory [address] [place], [address] Glucose [Mass/Vol] 159 mg/dL High 70-99 [facility] Comment on above: Performed By: #### L 501.080 #### [facility] Laboratory [address] [place], [address] Potassium [Moles/Vol] 3.2 mmol/L Low 3.3-5.1 [facility] Comment on above: Performed By: #### L 501.080 #### [facility] Laboratory [address] [place], [address] Sodium [Moles/Vol] 138 mmol/L Normal 133-145 [facility] Comment on above: Performed By: #### L 501.080 #### [facility] Laboratory [address] [place], [address] Urea nitrogen [Mass/Vol] 10 mg/dL Normal 4-19 [facility] Comment on above: Performed By: #### L 501.080 #### [facility] Laboratory [address] [place], [address] Bedside Glucoseon 05-12-2025 FINGERSTICK GLU 330 mg/dL High 74-106 [facility] Comment on above: Result Comment: BELLA GEMENT OF PATIENT CARE PER NURSING PROTOCOL Performed By: #### L 500.2500, L100.0100 #### [facility] Laboratory [address] [place], [address] FINGERSTICK GLU 278 mg/dL High 74-106 [facility] Comment on above: Result Comment: BELLA GEMENT OF PATIENT CARE PER NURSING PROTOCOL Performed By: #### L 501.080 #### [facility] Laboratory [address] [place], [address] FINGERSTICK GLU 310 mg/dL High 74-106 [facility] Comment on above: Result Comment: BELLA GEMENT OF PATIENT CARE PER NURSING PROTOCOL Performed By: #### L 501.080 #### [facility] Laboratory [address] [place], [address] FINGERSTICK GLU 160 mg/dL High 74-106 [facility] Comment on above: Result Comment: BELLA GEMENT OF PATIENT CARE PER NURSING PROTOCOL Performed By: #### L 501.080 ####[facility] [address] [place], [address] FINGERSTICK GLU 242 mg/dL High -106 [facility] Comment on above: Result Comment: BELLA GEMENT OF PATIENT CARE PER NURSING PROTOCOL Performed By: #### L 501.080 #### [facility] Laboratory [address] [place], [address] Bilirubin directOrdered By: Lane Stanley on 05-12-2025 Bilirubin.direct [Mass/Vol] 0.23 mg/dL 0.00-0.30 [facility] Bilirubin, totalOrdered By: Lane Stanley on 05-12-2025 Bilirubin [Mass/Vol] 0.44 mg/dL 0.00-1.30 [facility] Brain/Head W/WO Contraston 0 05-12-2025 Brain/Head W/WO Contrast [facility] Imaging Services [address] [place] [address] Brain/Head W/WO Contrast MR#: [id number] Acct: [id number] Name: ITZEL ALONZO Rep #: [id number] : 1950 M 74 From: Joaquin Kiser PCP: SID Haro Status: ADM IN Study: Brain/Head W/WO Contrast Date of Exam: 5 Exam# [id number] Ordering Dr: Anthony Salgado MD PROCEDURE: BRAIN/HEAD [...] mass. No acute intracranial process. Reading Location: [id number] CC: EMPLOYMENT SERVICES DIRECTOR-C Carlene Haji; Dr. Anthony Salgado MD Police Investigator: Signed Normal [facility] CBC-Complete Blood Cnt No Di ffsadie 05-12-2025 Erythrocyte distribution width (RBC) [Ratio] 18.6 % High 11.6-14.6 [facility] Comment on above: Performed By: #### L 501.080 #### [facility] Laboratory [address] [place], [address] Hematocrit (Bld) [Volume fraction] 27.8 % Low 40-54 [facility] Comment on above: Performed By: #### L 501.080 #### [facility] Laboratory [address] [place], [address] Hemoglobin (Bld) [Mass/Vol] 8.4 g/dL Low 13.0-16.5 [facility] Comment on above: Performed By: #### L 501.080 #### [facility] Laboratory [address] [place], [address] MCH (RBC) [Entitic mass] 19.6 pg Low 27.0-32.0 [facility] Comment on above: Performed By: #### L 501.080 #### [facility] Laboratory [address] [place], [address] MCHC (RBC) [Mass/Vol] 30.2 g/dL Low 32-36 [facility] Comment on above: Performed By: #### L 501.080 #### [facility] Laboratory [address] [place], [address] MCV (RBC) [Entitic vol] 65.0 fL Low 80-94 [facility] Comment on above: Performed By: #### L 501.080 #### [facility] Laboratory [address] [place], [address] Platelet mean volume (Bld) [Entitic vol] 9.8 fL Normal 6.2-12.0 [facility] Comment on above: Performed By: #### L 501.080 #### [facility] Laboratory [address] [place], [address] Platelets (Bld) [#/Vol] 411 10*3/uL Normal 150-450 [facility] Comment on above: Performed By: #### L 501.080 #### [facility] Laboratory [address] [place], [address] RBC (Bld) [#/Vol] 4.28 10*6/uL Low 4.6-6.2 [facility] Comment on above: Performed By: #### L 501.080 #### [facility] Laboratory [address] [place], [address] RDW SD 43.0 fl Normal 35.1-43.9 [facility] Comment on above: Performed By: #### L 501.080 #### [facility] Laboratory [address] [place], [address] WBC (Bld) [#/Vol] 13.2 10*3/uL High 4.4-11.0 [facility] Comment on above: Performed By: #### L 501.080 #### [facility] Laboratory [address] [place], [address] Electrocardiogram reportOrde red By: Kevin Joshi on 05-12-2025 EKG study [facility] Cardiovascular Services [address] [place] [address] 12 Lead EKG 05/11/25 1709 MR#: [id number] Acct: [id number] Name: ITZEL ALONZO Rep #:[id number] : 1950 74 From: Kevin Joshi MD Attending Dr: Dr. Anthony Salgado MD Status: ADM IN Ordering Dr: Monty Clarke MD Date: 05/11 Location: [facility] Sex: M AA Admitted: 05/11/25 Test Reason : GENERAL Blood Pressure : */* mmHG Vent. Rate : 91 BPM Atrial Rate : 91 BPM P-R Int : 150 ms QRS Dur : 90 ms QT Int : 386 ms P-R-T Axes : 47 58 53 degrees QTcB Int : 474 ms Normal sinus rhythm Normal ECG Confirmed by KEVIN JOSHI MD ([id number]), video effects editor JOSE NYE ([id number]) on 05/12/2025 8:27:44 AM Referred By: Confirmed By: KEVIN JOSHI MD 05/12/25826 Date _ Kevin Joshi MD CC: EMPLOYMENT SERVICES DIRECTOR-René Haji; Dr. Anthony Salgado MD; Dr. Monty Clarke MD ~ Signed [facility] Other Phone: Laboratory - Chemistry and C hemistry - challengeOrdered By: Lane Stanley on 05-12-2025 AST [Catalytic activity/Vol] 23 U/L <38 [facility] Liver Profileon 05-12-2025 Albumin [Mass/Vol] 3.3 g/dL Low 3.4-4.8 [facility] Comment on above: Performed By: #### L 501.080 #### [facility] Laboratory [address] [place], [place], [address] ALK PHOS 131 U/L High 40-129 [facility] Comment on above: Performed By: #### L 501.080 #### [facility] Laboratory [address] [place], [place], [address] [phone] ALT [Catalytic activity/Vol] 11 U/L Normal <=46 [facility] Comment on above: Performed By: #### L 501.080 #### [facility] Laboratory [address] [place], [address] AST [Catalytic activity/Vol] 23 U/L Normal <=37 [facility] Comment on above: Performed By: #### L 501.080 #### [facility] Laboratory [address] [place], [place], [address] [phone] Bilirubin [Mass/Vol] 0.44 mg/dL Normal 0.00-1.30 [facility] Comment on above: Performed By: #### L 501.080 #### [facility] Laboratory [address] [place], [address] Bilirubin.direct [Mass/Vol] 0.23 mg/dL Normal 0.00-0.30 [facility] Comment on above: Performed By: #### L 501.080 #### [facility] Laboratory [address] [place], [address] Globulin (S) [Mass/Vol] 3.8 g/dL Normal 2.2-4.2 [facility] Comment on above: Performed By: #### L 501.080 #### [facility] Laboratory [address] [place], [address] T PROT 7.1 g/dL Normal 5.9-8.4 [facility] Comment on above: Performed By: #### L 501.080 #### [facility] Laboratory [address] [place], [address] Serum globulin measurementOr dered By: Lane Stanley on 05-12-2025 Globulin (S) [Mass/Vol] 3.8 g/dL 2.2-4.2 [facility] Serum or plasma alanine stahl otransferase (ALT) measurementOrdered By: Lane Stanley on 05-12-2025 ALT [Catalytic activity/Vol] 11 U/L <47 [facility] Serum or plasma albumin ivania urement (mass/volume)Ordered By: Lane Stanley on 05-12-2025 Albumin [Mass/Vol] 3.3 g/dL Low 3.4-4.8 [facility] Serum or plasma alkaline brittany sphatase measurementOrdered By: Lane Stanley on 05-12-2025 ALP [Catalytic activity/Vol] 131 U/L High 40-129 [facility] Total proteinOrdered By: Eileen Stanley on 05-12-2025 Protein [Mass/Vol] 7.1 g/dL 5.9-8.4 [facility] 12 Lead EKGon 05-11-2025 12 Lead EKG [facility] Cardiovascular Services [address] [place] [address] 12 Lead EKG 05/11/25 1709 MR#: [id number] Acct: [id number] Name: ITZEL ALONZO Rep #: [id number] : 1950 74 From: Kevin Joshi MD Attending Dr: Dr. Anthony Salgado MD Status: ADM IN Ordering Dr: Monty Clarke MD Date: 05/11/25 Location: [facility] Sex: M AA Admitted: 05/11/25 Test Reason : GENERAL Blood Pressure : */* mmHG Vent. Rate : 91 BPM Atrial Rate : 91 BPM P-R Int : 150 ms QRS Dur : 90 ms QT Int : 386 ms P-R-T Axes : 47 58 53 degrees QTcB Int : 474 ms Normal sinus rhythm Normal ECG Confirmed by KEVIN JOSHI MD ([id number]), video effects editor JOSE NYE ([id number]) on 05/12/2025 8:27:44 AM Referred By: Confirmed By: KEVIN JOSHI MD 05/12/25 0827 Date Kevin Joshi MD CC: SID Haji; Dr. Anthony Salgado MD; Dr. Monty Clarke MD Signed Normal [facility] Absolute lymphocyte countOrd ered By: Monty Clarke on 05-11-2025 Lymphocytes Auto (Unsp spec) [#/Vol] 2.13 10*3/uL 0.83-4.51 [facility] Absolute neutrophil countOrd ered By: Monty Clarke on 05-11-2025 Neutrophils (Bld) [#/Vol] 8.6 10*3/uL High 2.0-7.7 [facility] Anion gap in Serum or Plasma Ordered By: Monty Clarke on 05-11-2025 Anion gap [Moles/Vol] 11 mmol/L 5-15 [facility] Automated lymphocyte count a s percentage of total leukocytesOrdered By: Monty Clarke on 05-11-2025 Lymphocytes/100 WBC Auto (Unsp spec) 18.4 % Low 19-41 [facility] BUN/creatinine ratioOrdered By: Monty Clarke on 05-11-2025 Urea nitrogen/Creatinine [Mass ratio] 11.3 mg/mg 10-20 [facility] Basophil percentageOrdered B y: Monty Clarke on 05-11-2025 Basophils/100 WBC (Bld) 0.3 % 0-1 [facility] Bilirubin, totalOrdered By: Monty Clarke on 05-11-2025 Bilirubin [Mass/Vol] 0.41 mg/dL 0.00-1.30 [facility] CBC W/Diff, Automatedon 04-25 Absolute Lymph 2.13 X10 3/uL Normal 0.83-4.51 [facility] Comment on above: Performed By: #### L 501.080 #### [facility] Laboratory [address] [place], [address] Absolute Neut 8.6 X10 3/uL High 2.0-7.7 [facility] Comment on above: Performed By: #### L 501.080 #### [facility] Laboratory [address] [place], [address] Basophils/100 WBC (Bld) 0.3 % Normal 0-1 [facility] Comment on above: Performed By: #### L 501.080 #### [facility] Laboratory [address] [place], [address] Eosinophils/100 WBC (Bld) 0.8 % Normal 0-5 [facility] Comment on above: Performed By: #### L 501.080 #### [facility] Laboratory [address] [place], [address] Erythrocyte distribution width (RBC) [Ratio] 19.0 % High 11.6-14.6 [facility] Comment on above: Performed By: #### L 501.080 #### [facility] Laboratory [address] [facility] [place], [address] Hematocrit (Bld) [Volume fraction] 28.9 % Low 40-54 [facility] Comment on above: Performed By: #### L 501.080 #### [facility] Laboratory [address] [place], [address] Hemoglobin (Bld) [Mass/Vol] 8.7 g/dL Low 13.0-16.5 [facility] Comment on above: Performed By: #### L 501.080 #### [facility] Laboratory [address] [place], [address] IG% 0.400 Normal 0.0-0.9 [facility] Comment on above: Result Comment: IG% - Immature Granulocytes (promyelocytes, myelocytes and metamyelocytes) > 1% indicates that a LEFT SHIFT is Present. Performed By: #### L 501.080 #### [facility] Laboratory [address] [facility] [place], [address] Lymphocytes/100 WBC (Bld) 18.4 % Low 19-41 [facility] Comment on above: Performed By: #### L 501.080 #### [facility] Laboratory [address] [facility] [place], [address] MCH (RBC) [Entitic mass] 20.0 pg Low 27.0-32.0 [facility] Comment on above: Performed By: #### L 501.080 #### [facility] Laboratory [address] [facility] [place], [address] MCHC (RBC) [Mass/Vol] 30.1 g/dL Low 32-36 [facility] Comment on above: Performed By: #### L 501.080 #### [facility] Laboratory [address] [place], [address] MCV (RBC) [Entitic vol] 66.4 fL Low 80-94 [facility] Comment on above: Performed By: #### L 501.080 #### [facility] Laboratory [address] [place], [address] Monocytes/100 WBC (Bld) 5.8 % Normal 0-10 [facility] Comment on above: Performed By: #### L 501.080 #### [facility] Laboratory [address] [place], [address] Neutrophils/100 WBC (Bld) 74.3 % High 47-70 [facility] Comment on above: Performed By: #### L 501.080 #### [facility] Laboratory [address] [place], [address] Nucleated RBC (Bld) [#/Vol] 0 10*3/uL Normal 0-5 [facility] Comment on above: Performed By: #### L 501.080 #### [facility] Laboratory [address] [place], [address] Platelet mean volume (Bld) [Entitic vol] 9.5 fL Normal 6.2-12.0 [facility] Comment on above: Performed By: #### L 501.080 #### [facility] Laboratory [address] [place], [address] Platelets (Bld) [#/Vol] 404 10*3/uL Normal 150-450 [facility] Comment on above: Performed By: #### L 501.080 #### [facility] Laboratory [address] [place], [address] RBC (Bld) [#/Vol] 4.35 10*6/uL Low 4.6-6.2 [facility] Comment on above: Performed By: #### L 501.080 #### [facility] Laboratory [address] [place], [address] RDW SD 44.7 fl High 35.1-43.9 [facility] Comment on above: Performed By: #### L 501.080 #### [facility] Laboratory [address] [place], [address] WBC (Bld) [#/Vol] 11.6 10*3/uL High 4.4-11.0 [facility] Comment on above: Performed By: #### L 501.080 #### [facility] Laboratory [address] [facility] [place], [address] Carbon dioxide, total [Moles /volume] in Central venous bloodOrdered By: Monty Clarke on 05-11-2025 CO2 [Moles/Vol] 26.3 mmol/L 21.0-32.0 [facility] Chest PA and Lateralon 05-11 Chest PA and Lateral [facility] Imaging Services [address] [address] Chest PA and Lateral MR#: [id number] Acct: [id number] Name: CHERIITZEL A Rep #: [id number] : 1950 M 74 From: Jamie Suero DO PCP: Carlene Haji, EMPLOYMENT SERVICES DIRECTOR-C Status: [facility] ER Study: Chest PA and Lateral Date of Exam: 05/11/25 Exam# [id number] Ordering Dr: Monty Clarke MD PROCEDURE: CHEST [...] end-stage honeycomb fibrosis. Reading Location: [facility] CC: SID Haji; Dr. Monty Clarke MD Police Investigator: Signed Normal [facility] Chloride assayOrdered By: Karin Clarke on 05-11-2025 Chloride [Moles/Vol] 99 mmol/L 98-108 [facility] Comprehensive Metabolic Prof ilon 05-11-2025 Albumin [Mass/Vol] 3.3 g/dL Low 3.4-4.8 [facility] Comment on above: Performed By: #### L 501.080 #### [facility] Laboratory [address] [place], [address] Albumin/Globulin [Mass ratio] 0.8 {ratio} Low 0.9-2.4 [facility] Comment on above: Performed By: #### L 501.080 #### [facility] Laboratory [address] [place], [address] ALK PHOS 128 U/L Normal 40-129 [facility] Comment on above: Performed By: #### L 501.080 #### [facility] Laboratory [address] [place], [address] ALT [Catalytic activity/Vol] 12 U/L Normal <=46 [facility] Comment on above: Performed By: #### L 501.080 #### [facility] Laboratory [address] [place], [address] AST [Catalytic activity/Vol] 23 U/L Normal <=37 [facility] Comment on above: Performed By: #### L 501.080 #### [facility] Laboratory [address] [place], [address] Bilirubin [Mass/Vol] 0.41 mg/dL Normal 0.00-1.30 [facility] Comment on above: Performed By: #### L 501.080 #### [facility] Laboratory [address] [place], [address] BUN/CRE 11.3 RATIO Normal 10-20 [facility] Comment on above: Performed By: #### L 501.080 #### [facility] Laboratory [address] [place], [address] Calcium [Mass/Vol] 11.2 mg/dL High 7.6-11.0 [facility] Comment on above: Performed By: #### L 501.080 #### [facility] Laboratory [address] [place], [address] Chloride [Moles/Vol] 99 mmol/L Normal 98-108 [facility] Comment on above: Performed By: #### L 501.080 #### [facility] Laboratory [address] [place], [address] CO2 [Moles/Vol] 26.3 mmol/L Normal 21.0-32.0 [facility] Comment on above: Performed By: #### L 501.080 #### [facility] Laboratory [address] [place], [address] Creatinine [Mass/Vol] 1.20 mg/dL Normal 0.70-1.20 [facility] Comment on above: Performed By: #### L 501.080 #### [facility] Laboratory [address] [place], [address] ECRCL 49.04 ml/min Low 50-250 [facility] Comment on above: Performed By: #### L 501.080 #### [facility] Laboratory [address] [place], [address] GAP 11 Normal 5-15 [facility] Comment on above: Performed By: #### L 501.080 #### [facility] Laboratory [address] [place], [address] GFR/1.73 sq M.predicted among non-blacks MDRD (S/P/Bld) [Vol rate/Area] 63 mL/min/{1.73_m2} Normal >60 [facility] Comment on above: Result Comment: mL/m in/1.73m2 CKD-EPI Creatinine Equation (2020) Performed By: #### L 501.080 #### [facility] Laboratory [address] [place], [address] Globulin (S) [Mass/Vol] 4.2 g/dL Normal 2.2-4.2 [facility] Comment on above: Performed By: #### L 501.080 #### [facility] Laboratory [address] [place], [address] Glucose [Mass/Vol] 244 mg/dL High 70-99 [facility] Comment on above: Performed By: #### L 501.080 #### [facility] [address] [place], [address] Potassium [Moles/Vol] 3.5 mmol/L Normal 3.3-5.1 [facility] Comment on above: Performed By: #### L 501.080 #### [facility] [address] [place], [address] Sodium [Moles/Vol] 136 mmol/L Normal 133-145 [facility] Comment on above: Performed By: #### L 501.080 #### [facility] [address] [place], [address] T PROT 7.4 g/dL Normal 5.9-8.4 [facility] Comment on above: Performed By: #### L 501.080 #### [facility] [address] [place], [address] Urea nitrogen [Mass/Vol] 14 mg/dL Normal 4-19 [facility] Comment on above: Performed By: #### L 501.080 #### [facility] [address] [place], [address] Emergency Department Summary on 05-11-2025 Emergency Department Summary [facility] Medical Records Department [address] [place] [address] Emergency Department Summary 05/11/25 MR#: [id number] Acct: [id number] Name: ITZEL ALONZO Rep #: [id number] : 1950 74 From: Monty Clarke MD PCP: Carlene Haji, SID Status:ADM IN Location: [place] [address] Monty Clarke MD on 05/11/25 at 2107 EKG was obtained 1709 interpreted by me at 1711. The EKG is normal. Rate is 91. AR interval, QRS duration, QT duration and axis are all normal. 05/11/252106 Cosigner Signature (if applicable): cc: EMPLOYMENT SERVICES DIRECTOR-C Carlene Haji * Signed HPI History of [...] said something that was offensive to the mechanic driver . 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 He [...] similar symptoms: No Recent Illness/Hospitalizati on: Yes [facility] Medical History (Updated 05/11/25 @ 18:41 [...] smoker tobacco (more content not included)... Normal [facility] Eosinophil percentageOrdered By: Montymaria e Clarke on 05-11-2025 Eosinophils/100 WBC (Bld) 0.8 % 0-5 [facility] Erythrocyte distribution wid th ratioOrdered By: Montymaria e Clarke on 05-11-2025 Erythrocyte distribution width (RBC) [Ratio] 19.0 % High 11.6-14.6 [facility] Erythrocyte distribution wid th standard deviationOrdered By: Montymaria e Clarke on 05-11-2025 Erythrocyte distribution width (RBC) [Ratio] 44.7 fl High 35.1-43.9 [facility] Glomerular filtration rate ( GFR) estimation/1.73 sq m using serum, plasma, or whole bOrdered By: Montymaria e Clarke on 05-11-2025 GFR/1.73 sq M.predicted among non-blacks MDRD (S/P/Bld) [Vol rate/Area] 63 mL/min/{1.73_m2} >60 [facility] Comment on above: mL/min/1.73m2 CKD-EP I Creatinine Equation (2020) H AND P Exam - Hospital[place] 05-11-2025 H&P Exam - Hospitalist [facility] Medical Records Department [address] [place] [address] H P Exam - Hospitalist 05/11/251918 MR#: [id number] Acct: [id number] Name: ITZEL ALONZO Rep #: [id number] : 1950 74 From: Lane Stanley DO PCP: Carlene Haji, IKE-C Status:ADM IN Location: [facility] [id number] HPI - General General Date of Admission: 05/11/25 Date of Service: 05/11/25 Chief Complaint: Worsening fatigue, weakness and confusion HPI Narrative ITZEL ALONZO, is a 74 M who presented to [facility] ED on 05/11/2025 with worsening fatigue, weakness and confusion. Patient has been seen in our ED recently but he receives his care through the NH. He was diagnosed with right-sided lung cancer about 1 year ago. It appears this diagnosis was confirmed on bronchial biopsy. Patient declined active treatment at that time and preferred close monitoring. However, patient has issues with transportation and has had difficulty getting to his appointments with oncology at the NH. He lives at home with his significant [...] phone with the transfer nurse with the NH liliana goodman. Nurse noted that transfer could be initiated there but as the admitting physician was gone for the day, transfer will not happen until tomorrow at the earliest. [facility] Medical History (Updated 05/12/25 @ 00:00 by [...] household members (more content not included)... Normal [facility] Hematocrit Auto (Bld) [Volum e fraction]Ordered By: Monty Clarke on 05-11-2025 Hematocrit (Bld) [Volume fraction] 28.9 % Low 40-54 [facility] Hemoglobin measurementOrdere d By: Monty Clarke on 05-11-2025 Hemoglobin (Bld) [Mass/Vol] 8.7 g/dL Low 13.0-16.5 [facility] Immature granulocytes/100 WB C Auto (Bld)Ordered By: Monty Clarke on 05-11-2025 Immature granulocytes/100 WBC (Bld) 0.400 % 0.0-0.9 [facility] Comment on above: IG% - Immature Granu locytes (promyelocytes, myelocytes and metamyelocytes) > 1% indicates that a LEFT SHIFT is Present. L499.0042on 05-11-2025 Trop T High Sen 37 ng/L High <=22 [facility] Comment on above: Performed By: #### L 500.2500, L100.0100 #### [facility] [address] [place], [address] L499.0043on 05-11-2025 Trop T High Sen 39 ng/L High <=22 [facility] Comment on above: Performed By: #### L 501.080 #### [facility] [address] [place], [address] L501.4021on 05-11-2025 Trop T High Sen 39 ng/L High <=22 [facility] Comment on above: Performed By: #### L 501.4021 ####[facility] [address] [place], [address] Laboratory - Chemistry and C hemistry - challengeOrdered By: Monty Clarke on 05-11-2025 AST [Catalytic activity/Vol] 23 U/L <38 [facility] Lactic Acidon 05-11-2025 Lactate [Moles/Vol] 1.8 mmol/L Normal 0.0-2.0 [facility] Comment on above: Order Comment: Y Performed By: #### L 501.080 #### [facility] [address] [place], [address] Lactic acid measurementOrder ed By: Monty Clarke on 05-11-2025 Lactate [Moles/Vol] 1.8 mmol/L 0.0-2.0 [facility] MCV (mean corpuscular volume ) determinationOrdered By: Monty Clarke on 05-11-2025 MCV (RBC) [Entitic vol] 66.4 fL Low 80-94 [facility] Mean corpuscular hemoglobin (MCH) determinationOrdered By: Monty Clarke on 05-11-2025 MCH (RBC) [Entitic mass] 20.0 pg Low 27.0-32.0 [facility] Mean corpuscular hemoglobin concentration (MCHC) determinationOrdered By: Montymaria e Clarke on 05-11-2025 MCHC (RBC) [Mass/Vol] 30.1 g/dL Low 32-36 [facility] Mean platelet volume determi nationOrdered By: Montymaria e Clarke on 05-11-2025 Platelet mean volume (Bld) [Entitic vol] 9.5 fL 6.2-12.0 [facility] Monocyte percentageOrdered B y: Monty Clarke on 05-11-2025 Monocytes/100 WBC (Bld) 5.8 % 0-10 [facility] Neutrophil percentageOrdered By: Montymaria e Clarke on 05-11-2025 Neutrophils/100 WBC (Bld) 74.3 % High 47-70 [facility] Nucleated red blood cell per centageOrdered By: Montymaria e Clarke on 05-11-2025 Nucleated RBC/100 WBC (Bld) [Ratio] 0 % 0-5 [facility] Platelet countOrdered By: [facility] Clarke on 05-11-2025 Platelets (Bld) [#/Vol] 404 10*3/uL 150-450 [facility] Potassium measurement (mass/ volume)Ordered By: Montymaria e Clarke on 05-11-2025 Potassium (Unsp spec) [Mass/Vol] 3.5 mmol/L 3.3-5.1 [facility] RBC Auto (Bld) [#/Vol]Ordere d By: Monty Clarke on 05-11-2025 RBC (Bld) [#/Vol] 4.35 10*6/uL Low 4.6-6.2 [facility] Serum creatinine measurement (mass/volume)Ordered By: Monty Clarke on 05-11-2025 Creatinine [Mass/Vol] 1.20 mg/dL 0.70-1.20 [facility] Serum globulin measurementOr dered By: Monty Clarke on 05-11-2025 Globulin (S) [Mass/Vol] 4.2 g/dL 2.2-4.2 [facility] Serum glucose measurement (m ass/volume)Ordered By: Monty Clarke on 05-11-2025 Glucose [Mass/Vol] 244 mg/dL High 70-99 [facility] Serum or plasma alanine stahl otransferase (ALT) measurementOrdered By: Monty Clarke on 05-11-2025 ALT [Catalytic activity/Vol] 12 U/L <47 [facility] Serum or plasma albumin ivania urement (mass/volume)Ordered By: Monty Clarke on 05-11-2025 Albumin [Mass/Vol] 3.3 g/dL Low 3.4-4.8 [facility] Serum or plasma albumin/glob ulin mass ratioOrdered By: Monty Clarke 05-11-2025 Albumin/Globulin [Mass ratio] 0.8 {ratio} Low 0.9-2.4 [facility] Serum or plasma alkaline brittany sphatase measurementOrdered By: Monty Clarke on 05-11-2025 ALP [Catalytic activity/Vol] 128 U/L 40-129 [facility] Serum or plasma calcium ivania urement (mass/volume)Ordered By: Monty Clarke 05-11-2025 Calcium [Mass/Vol] 11.2 mg/dL High 7.6-11.0 [facility] Serum or plasma urea nitroge n measurement (mass/volume)Ordered By: Monty Clarke on 05-11-2025 Urea nitrogen [Mass/Vol] 14 mg/dL 4-19 [facility] Sodium levelOrdered By: Monty Clarke on 05-11-2025 Sodium [Moles/Vol] 136 mmol/L 133-145 [facility] Stool Occult Blood iFOBon STOB Negative Normal [facility] Comment on above: Performed By: #### L 500.2500, L100.0100 #### [facility] [address] [place], [address] Stool gastrointestinal hemog lobin detection by immunologic methodOrdered By: Monty Clarke on 05-11-2025 Lower GI hemoglobin IA Ql (Stl) [facility] Total proteinOrdered By: Monty Clarke on 05-11-2025 Protein [Mass/Vol] 7.4 g/dL 5.9-8.4 [facility] Troponin T.cardiac [Mass/vol ume] in Serum or Plasma by High sensitivity methodOrdered By: Monty Clarke on 05-11-2025 Troponin T.cardiac High sensitivity method [Mass/Vol] 39 ng/L High <22 [facility] Troponin T.cardiac High sensitivity method [Mass/Vol] 37 ng/L High <22 [facility] Troponin T.cardiac High sensitivity method [Mass/Vol] 39 ng/L High <22 [facility] Comment on above: Delta: 26 on White blood cell (WBC) count Ordered By: Monty Clarke on 05-11-2025 WBC (Bld) [#/Vol] 11.6 10*3/uL High 4.4-11.0 [facility] 12 Lead EKGon 05-04-2025 12 Lead EKG [facility] Cardiovascular Services [address] [place] [address] 12 Lead EKG 05/04/25 1129 MR#: [id number] Acct: [id number] Name: ITZEL ALONZO Carlie Rep #: [id number] : 1950 74 From: Adams Connell MD [...] rhythm Normal ECG Confirmed by Adams Connell ([id number]), video effects editor KATIE ABRAHAM ([id number]) on 05/06/2025 6:12:43 AM Referred By: Confirmed By: Adams Connell 05/06/25611 Date Adams Connell MD CC: EMPLOYMENT SERVICES DIRECTORNissa Haji; Dr. Ike Dawson, DO Signed Normal [facility] Absolute lymphocyte countOrd ered By: Ike Dawson on 05-04-2025 Lymphocytes Auto (Unsp spec) [#/Vol] 3.37 10*3/uL 0.83-4.51 [facility] Absolute neutrophil countOrd ered By: Ike Dawson on 05-04-2025 Neutrophils (Bld) [#/Vol] 7.0 10*3/uL 2.0-7.7 [facility] Activated partial thrombopla stin time (aPTT) in platelet poor plasma by coagulation aOrdered By: Ike Dawson on 05-04-2025 aPTT Coag (PPP) [Time] 31.9 s 24.1-36.2 [facility] Anion gap in Serum or Plasma Ordered By: Ike Dawson on 05-04-2025 Anion gap [Moles/Vol] 11 mmol/L 5-15 [facility] Automated lymphocyte count a s percentage of total leukocytesOrdered By: Ike Dawson on 05-04-2025 Lymphocytes/100 WBC Auto (Unsp spec) 29.4 % 19-41 [facility] BUN/creatinine ratioOrdered By: Ike Dawson on 05-04-2025 Urea nitrogen/Creatinine [Mass ratio] 16.9 mg/mg 09-13 [facility] Basic Metabolic Profile (BMP )on 05-04-2025 BUN/CRE 16.9 RATIO Normal 09-13 [facility] Comment on above: Performed By: #### L 501.080 #### [facility] [place], [address] ECRCL 50.60 ml/min Normal 50-250 [facility] Comment on above: Performed By: #### L 501.080 #### [facility] [address] [place], [place], [id number] GAP 11 Normal 5-15 [facility] Comment on above: Performed By: #### L 501.080 #### [facility] [address] [place], [place], [address] Potassium [Moles/Vol] 4.2 mmol/L Normal 3.3-5.1 [facility] Comment on above: Performed By: #### L 501.080 #### [facility] [address] [place], [place], [address] Basophil percentageOrdered B y: Ike Dawson on 05-04-2025 Basophils/100 WBC (Bld) 0.3 % 0-1 [facility] Blood polychromasia detectio n by light microscopyOrdered By: Ike Dawson on 05-04-2025 Polychromasia LM Ql (Bld) 1+ [facility] Brain/Head without Contrasto n 05-04-2025 Brain/Head without Contrast [facility] Imaging Services [address] [place], [place] [id number] Brain/Head without Contrast MR#: [id number] Acct: [id number] Name: CHERIITZEL Carlie Rep #: [id number] : 1950 M 74 From: Uche Kiser PCP: Carlene Haji EMPLOYMENT SERVICES DIRECTOR-René Status: REG ER Study: Brain/Head without Contrast Date of Exam: 04/25 Exam# [id number] Ordering Dr: Ike Dawson DO PROCEDURE: BRAIN/HEAD [...] or other acute process noted. Reading Location: [address] CC: SID Haji; Dr. Ike Dawson, Police Investigator: Signed Normal [facility] CBC W/Diff, AutomatedOrdered By: Ike Dawson on 05-04-2025 Anisocytosis Ql (Bld) 1+ Normal [facility] Comment on above: Performed By: #### L 501.080 #### [facility] [address] [place], [address] CBC W/Diff, Automatedon 04-25 PLT EST A Normal ADEQ [facility] Comment on above: Performed By: #### L 501.080 #### [facility] [address] [place], [address] POLYCHROMASIA 1+ Normal [facility] Comment on above: Performed By: #### L 501.080 #### [facility] [address] [place], [address] Carbon dioxide, total [Moles /volume] in Central venous bloodOrdered By: Ike Dawson on 05-04-2025 CO2 [Moles/Vol] 27.6 mmol/L Normal 21.0-32.0 [facility] Comment on above: Performed By: #### L 501.080 #### [facility] [address] [place], [address] Chest without Contraston Chest without Contrast [facility] Imaging Services [address] [facility] [place], [place] [address] Chest without Contrast MR#: [id number] Acct: [id number] Name: ITZEL ALONZO Rep #: [id number] : 1950 M 74 From: Lion torres MD PCP: SID Haro Status: REG ER Study: Chest without Contrast Date of Exam: 05/04/25 Exam# [id number] Ordering Dr: Ike Dawson DO PROCEDURE: CHEST [...] at the right lung base. Reading Location: [place] [address] CC: EMPLOYMENT SERVICES DIRECTORNissa Haji; Dr. Ike Dawson DO Police Investigator: Signed Normal [facility] Chloride assayOrdered By: Jacinto Dawson on 05-04-2025 Chloride [Moles/Vol] 97 mmol/L Low 98-108 [facility] Comment on above: Performed By: #### L 501.080 #### [facility] [address] [place], [address] Emergency Department Summary on 05-04-2025 Emergency Department Summary [facility] Medical Records Department [address] [place] [address] Emergency Department Summary 05/04/25 MR#: [id number] Acct: [id number] Name: ITZEL ALONZO Rep #: [id number] : 1950 74 From: Ike Nuñez PCP: LUIS MIGUEL HaroC Status:DEP ER Location: ED HPI HPI - [...] Been using intermittently last use yesterday evening. [facility] Medical History Kidney stones Neuropathy PTSD [...] well no (more content not included)... Normal [facility] Eosinophil percentageOrdered By: Ike Dawson on 05-04-2025 Eosinophils/100 WBC (Bld) 1.5 % 0-5 [facility] Erythrocyte distribution wid th ratioOrdered By: Ike Dawson on 05-04-2025 Erythrocyte distribution width (RBC) [Ratio] 20.1 % High 11.6-14.6 [facility] Erythrocyte distribution wid th standard deviationOrdered By: Ike Dawson on 05-04-2025 Erythrocyte distribution width (RBC) [Ratio] 45.7 fl High 35.1-43.9 [facility] Glomerular filtration rate ( GFR) estimation/1.73 sq m using serum, plasma, or whole bOrdered By: Ike Dawson on 05-04-2025 GFR/1.73 sq M.predicted among non-blacks MDRD (S/P/Bld) [Vol rate/Area] 67 mL/min/{1.73_m2} Normal >60 [facility] Comment on above: mL/min/1.73m2 CKD-EP I Creatinine Equation (2020) Result Comment: mL/m in/1.73m2 CKD-EPI Creatinine Equation (2020) Performed By: #### L 501.080 #### [facility] [address] [place], [place], [id number] Hematocrit Auto (Bld) [Volum e fraction]Ordered By: Ike Dawson on 05-04-2025 Hematocrit (Bld) [Volume fraction] 32.4 % Low 40-54 [facility] Hemoglobin measurementOrdere d By: Ike Dawson on 05-04-2025 Hemoglobin (Bld) [Mass/Vol] 9.8 g/dL Low 13.0-16.5 [facility] Immature granulocytes/100 WB C Auto (Bld)Ordered By: Ike Dawson on 05-04-2025 Immature granulocytes/100 WBC (Bld) 0.500 % 0.0-0.9 [facility] Comment on above: IG% - Immature Granu locytes (promyelocytes, myelocytes and metamyelocytes) > 1% indicates that a LEFT SHIFT is Present. International normalized rat io (INR) calculationOrdered By: Ike Dawson on 05-04-2025 INR Coag (Bld) [Relative time] 1.1 {INR} [facility] MCV (mean corpuscular volume ) determinationOrdered By: Ike Dawson on 05-04-2025 MCV (RBC) [Entitic vol] 65.9 fL Low 80-94 [facility] Mean corpuscular hemoglobin (MCH) determinationOrdered By: Ike Dawson on 05-04-2025 MCH (RBC) [Entitic mass] 19.9 pg Low 27.0-32.0 [facility] Mean corpuscular hemoglobin concentration (MCHC) determinationOrdered By: Ike Dawson on 05-04-2025 MCHC (RBC) [Mass/Vol] 30.2 g/dL Low 32-36 [facility] Mean platelet volume determi nationOrdered By: Ike Dawson on 05-04-2025 Platelet mean volume (Bld) [Entitic vol] 9.9 fL 6.2-12.0 [facility] Monocyte percentageOrdered B y: Ike Dawson on 05-04-2025 Monocytes/100 WBC (Bld) 6.9 % 0-10 [facility] Neutrophil percentageOrdered By: Ike Dawson on 05-04-2025 Neutrophils/100 WBC (Bld) 61.4 % 47-70 [facility] Nucleated red blood cell per centageOrdered By: Ike Dawson on 05-04-2025 Nucleated RBC/100 WBC (Bld) [Ratio] 0 % 0-5 [facility] Partial Thromboplast Timeon 05-04-2025 aPTT Coag (Bld) [Time] 31.9 s Normal 24.1-36.2 [facility] Comment on above: Performed By: #### L 501.080 #### [facility] [address] [place], [place], [address] Platelet countOrdered By: Jacinto Dawson on 05-04-2025 Platelets (Bld) [#/Vol] 412 10*3/uL 150-450 [facility] Platelet estimateOrdered By: Ike Dawson on 05-04-2025 Platelets LM Ql (Bld) A ADEQ [facility] Potassium measurement (mass/ volume)Ordered By: Ike Dawson on 05-04-2025 Potassium (Unsp spec) [Mass/Vol] 4.2 mmol/L 3.3-5.1 [facility] Prothrombin Time w/INRon INR Coag (PPP) [Relative time] 1.1 {INR} Normal [facility] Comment on above: Performed By: #### L 501.080 #### [facility] [address] [place], [address] Prothrombin timeOrdered By: Ike Dawson on 05-04-2025 PT Coag (PPP) [Time] 14.8 s Normal 11.7-14.9 [facility] Comment on above: Performed By: #### L 501.080 #### [facility] [address] [place], [address] RBC Auto (Bld) [#/Vol]Ordere d By: Ike Dawson on 05-04-2025 RBC (Bld) [#/Vol] 4.92 10*6/uL 4.6-6.2 [facility] Serum creatinine measurement (mass/volume)Ordered By: Ike Dawson on 05-04-2025 Creatinine [Mass/Vol] 1.14 mg/dL Normal 0.70-1.20 [facility] Comment on above: Performed By: #### L 501.080 #### [facility] [address] [place], [address] Serum glucose measurement (m ass/volume)Ordered By: Ike Dawson on 05-04-2025 Glucose [Mass/Vol] 229 mg/dL High 70-99 [facility] Comment on above: Performed By: #### L 501.080 #### [facility] [address] [place], [address] Serum or plasma calcium ivania urement (mass/volume)Ordered By: Ike Dawson on 05-04-2025 Calcium [Mass/Vol] 12.2 mg/dL High 7.6-11.0 [facility] Comment on above: Performed By: #### L 501.080 #### [facility] [address] [place], [address] Serum or plasma urea nitroge n measurement (mass/volume)Ordered By: Ike Le on 05-04-2025 Urea nitrogen [Mass/Vol] 19 mg/dL Normal 4-19 [facility] Comment on above: Performed By: #### L 501.080 #### [facility] [address] [place], [address] Shoulder min 2 Viewson 05-04 Shoulder min 2 Views [facility] Imaging Services [address] [place] [address] Shoulder min 2 Views MR#: [id number] Acct: [id number] Name: ITZEL ALONZO Rep #: [id number] : 1950 M 74 From: Lion torres MD PCP: Carlene Haji EMPLOYMENT SERVICES DIRECTOR-C Status: REG ER Study: Shoulder min 2 Views Date of Exam: 05/04/25 Exam# [id number] Ordering Dr: Ike Dawson DO PROCEDURE: SHOULDER [...] with a CT scan recommended. Reading Location: [facility] CC: EMPLOYMENT SERVICES DIRECTOR-C Carlene Haji; Dr. Ike Dawson DO Police Investigator: Signed Normal [facility] Sodium levelOrdered By: Ike Dawson on 05-04-2025 Sodium [Moles/Vol] 136 mmol/L Normal 133-145 [facility] Comment on above: Performed By: #### L 501.080 #### [facility] [address] [facility] [place], [address] Spine Cervical without Contr ason 05-04-2025 Spine Cervical without Contras [facility] Imaging Services [address] [place] [address] Spine Cervical without Contras MR#: [id number] Acct: [id number] Name: ITZEL ALONZO Rep #: [id number] : 1950 74 From: Lion torres MD PCP: Carlene Haji, EMPLOYMENT SERVICES DIRECTOR-C Status: REG ER Study: Spine Cervical without Contras Date of Exam: 0 05/04/25 Exam# [id number] Ordering Dr: Ike Dawson DO PROCEDURE: SPINE [...] lobe pulmonary mass. Reading Location: [facility] CC: SID Haji; Dr. Ike Dawson DO Police Investigator: Signed Normal [facility] White blood cell (WBC) count Ordered By: Ike Dawson on 05-04-2025 WBC (Bld) [#/Vol] 11.5 10*3/uL High 4.4-11.0 [facility] Bedside Glucoseon 04-24-2025 FINGERSTICK GLU 137 mg/dL High 74-106 [facility] Comment on above: Result Comment: BELLA MARYAMENT OF PATIENT CARE PER NURSING PROTOCOL Performed By: #### L 501.080 #### [facility] [place], [address] Glucose measurement at bedsi deOrdered By: Steven Tejeda on 04-24-2025 Glucose [Mass/Vol] 137 mg/dL High 74-106 [facility] Comment on above: MANAGEMENT OF PATIEN T CARE PER NURSING PROTOCOL L499.0043on 04-24-2025 Trop T High Sen Normal <=22 [facility] Comment on above: Result Comment: Asif espitia via OM: MD Ordered Performed By: #### L 500.2500, L100.0100 #### [facility] [facility] [address] [facility] [place], [address] 12 Lead EKGon 04-23-2025 12 Lead EKG [facility] Cardiovascular Services [address] [place] [address] 12 Lead EKG 04/23/25 2145 MR#: [id number] Acct: [id number] Name: ITZEL ALONZO Rep #: [id number] : 1950 74 From: Adams Connell MD [...] rhythm Normal ECG Confirmed by Adams Connell ([id number]), video effects editor KATIE ABRAHAM ([id number]) on 04/26/2025 10:51:11 AM Referred By: Confirmed By: Adams Connell 04/26/25 1051 Date Adams Connell MD CC: SID Haji; Dr. Steven Tejeda DO Signed Normal [facility] Absolute lymphocyte countOrd ered By: Steven Tejeda on 04-23-2025 Lymphocytes Auto (Unsp spec) [#/Vol] 3.56 10*3/uL 0.83-4.51 [facility] Absolute neutrophil countOrd ered By: Steven Tejeda on 04-23-2025 Neutrophils (Bld) [#/Vol] 8.4 10*3/uL High 2.0-7.7 [facility] Activated partial thrombopla stin time (aPTT) in platelet poor plasma by coagulation aOrdered By: Steven Tejeda on 04-23-2025 aPTT Coag (PPP) [Time] 27.9 s 24.1-36.2 [facility] Anion gap in Serum or Plasma Ordered By: Steven Tejeda on 04-23-2025 Anion gap [Moles/Vol] 11 mmol/L 5-15 [facility] Automated lymphocyte count a s percentage of total leukocytesOrdered By: Steven Tejeda on 04-23-2025 Lymphocytes/100 WBC Auto (Unsp spec) 27.6 % - [facility] BUN/creatinine ratioOrdered By: Steven Tejeda on 04-23-2025 Urea nitrogen/Creatinine [Mass ratio] 20.6 mg/mg High 10- [facility] Basic Metabolic Profile (BMP )on 04-23-2025 BUN/CRE 20.6 RATIO High - [facility] Comment on above: Performed By: #### L 501.080 #### [facility] [address] [place], [address] Calcium [Mass/Vol] 10.3 mg/dL Normal 7.6-11.0 [facility] Comment on above: Performed By: #### L 501.080 #### [facility] [address] [place], [address] Chloride [Moles/Vol] 101 mmol/L Normal 98-108 [facility] Comment on above: Performed By: #### L 501.080 #### [facility] [address] [place], [address] CO2 [Moles/Vol] 22.9 mmol/L Normal 21.0-32.0 [facility] Comment on above: Performed By: #### L 501.080 #### [facility] [address] [place], [address] Creatinine [Mass/Vol] 0.96 mg/dL Normal 0.70-1.20 [facility] Comment on above: Performed By: #### L 501.080 #### [facility] [address] [place], [address] ECRCL 66.44 ml/min Normal 50-250 [facility] Comment on above: Performed By: #### L 501.080 #### [facility] [address] [place], [address] GAP 11 Normal 5-15 [facility] Comment on above: Performed By: #### L 501.080 #### [facility] [address] [place], [address] GFR/1.73 sq M.predicted among non-blacks MDRD (S/P/Bld) [Vol rate/Area] 82 mL/min/{1.73_m2} Normal >60 [facility] Comment on above: Result Comment: mL/m in/1.73m2 CKD-EPI Creatinine Equation (2020) Performed By: #### L 501.080 #### [facility] [address] [place], [address] Glucose [Mass/Vol] 292 mg/dL High 70-99 [facility] Comment on above: Performed By: #### L 501.080 #### [facility] [address] [place], [address] Potassium [Moles/Vol] 3.9 mmol/L Normal 3.3-5.1 [facility] Comment on above: Performed By: #### L 501.080 #### [facility] [address] [place], [address] Sodium [Moles/Vol] 134 mmol/L Normal 133-145 [facility] Comment on above: Performed By: #### L 501.080 #### [facility] [address] [place], [address] Urea nitrogen [Mass/Vol] 20 mg/dL High 4-19 [facility] Comment on above: Performed By: #### L 501.080 #### [facility] [address] [place], [address] Basophil percentageOrdered B y: Steven Tejeda on 04-23-2025 Basophils/100 WBC (Bld) 0.2 % 0-1 [facility] CBC W/Diff, Automatedon 03-27-2024 Absolute Lymph 3.56 X10 3/uL Normal 0.83-4.51 [facility] Comment on above: Performed By: #### L 501.080 #### [facility] [address] [place], [address] Absolute Neut 8.4 X10 3/uL High 2.0-7.7 [facility] Comment on above: Performed By: #### L 501.080 #### [facility] [address] [place], [address] Basophils/100 WBC (Bld) 0.2 % Normal 0-1 [facility] Comment on above: Performed By: #### L 501.080 #### [facility] [address] [place], [address] Eosinophils/100 WBC (Bld) 1.9 % Normal 0-5 [facility] Comment on above: Performed By: #### L 501.080 #### [facility] [address] [place], [address] Erythrocyte distribution width (RBC) [Ratio] 19.0 % High 11.6-14.6 [facility] Comment on above: Performed By: #### L 501.080 #### [facility] [address] [place], [address] Hematocrit (Bld) [Volume fraction] 31.1 % Low 40-54 [facility] Comment on above: Performed By: #### L 501.080 #### [facility] [address] [place], [address] Hemoglobin (Bld) [Mass/Vol] 9.3 g/dL Low 13.0-16.5 [facility] Comment on above: Performed By: #### L 501.080 #### [facility] [address] [place], [address] IG% 0.500 Normal 0.0-0.9 [facility] Comment on above: Result Comment: IG% - Immature Granulocytes (promyelocytes, myelocytes and metamyelocytes) > 1% indicates that a LEFT SHIFT is Present. Performed By: #### L 501.080 #### [facility] [address] [place], [address] Lymphocytes/100 WBC (Bld) 27.6 % Normal 19-41 [facility] Comment on above: Performed By: #### L 501.080 #### [facility] [address] [place], [address] MCH (RBC) [Entitic mass] 19.7 pg Low 27.0-32.0 [facility] Comment on above: Performed By: #### L 501.080 #### [facility] [address] [place], [address] MCHC (RBC) [Mass/Vol] 29.9 g/dL Low 32-36 [facility] Comment on above: Performed By: #### L 501.080 #### [facility] [address] [place], [address] MCV (RBC) [Entitic vol] 66.0 fL Low 80-94 [facility] Comment on above: Performed By: #### L 501.080 #### [facility] [address] [place], [address] Monocytes/100 WBC (Bld) 4.9 % Normal 0-10 [facility] Comment on above: Performed By: #### L 501.080 #### [facility] [address] [place], [address] Neutrophils/100 WBC (Bld) 64.9 % Normal 47-70 [facility] Comment on above: Performed By: #### L 501.080 #### [facility] [address] [place], [address] Nucleated RBC (Bld) [#/Vol] 0 10*3/uL Normal 0-5 [facility] Comment on above: Performed By: #### L 501.080 #### [facility] [address] [place], [address] Platelet mean volume (Bld) [Entitic vol] 9.4 fL Normal 6.2-12.0 [facility] Comment on above: Performed By: #### L 501.080 #### [facility] [address] [place], [address] Platelets (Bld) [#/Vol] 350 10*3/uL Normal 150-450 [facility] Comment on above: Performed By: #### L 501.080 #### [facility] [address] [place], [address] RBC (Bld) [#/Vol] 4.71 10*6/uL Normal 4.6-6.2 [facility] Comment on above: Performed By: #### L 501.080 #### [facility] [address] [place], [address] RDW SD 43.6 fl Normal 35.1-43.9 [facility] Comment on above: Performed By: #### L 501.080 #### [facility] [address] [place], [address] WBC (Bld) [#/Vol] 12.9 10*3/uL High 4.4-11.0 [facility] Comment on above: Performed By: #### L 501.080 #### [facility] [address] [place], [place], [address] Carbon dioxide, total [Moles /volume] in Central venous bloodOrdered By: Steven Tejeda on 04-23-2025 CO2 [Moles/Vol] 22.9 mmol/L 21.0-32.0 [facility] Chest 1 View (Portable)on Chest 1 View (Portable) [facility] Imaging Services [address] [place] [address] Chest 1 View (Portable) MR#: [id number] Acct: [id number] Name: ITZEL ALONZO Rep #: [id number] : 1950 M 74 From: Deonte Perez MD PCP: Carlene Haji NP-C Status: [facility] ER Study: Chest 1 View (Portable) Date of Exam: 04/23/25 Exam# [id number] Ordering Dr: Steven Tejeda DO PROCEDURE: CHEST [...] regions which may represent adenopathy. Reading Location: [id number] CC: EMPLOYMENT SERVICES DIRECTOR-C Carlene Haji; Dr. Steven Tejeda DO Police Investigator: Signed Normal [facility] Chloride assayOrdered By: Emil Tejeda on 04-23-2025 Chloride [Moles/Vol] 101 mmol/L 98-108 [facility] Emergency Department Summary on 04-23-2025 Emergency Department Summary [facility] Medical Records Department [address] [place] [address] Emergency Department Summary 04/23/25 MR#: [id number] Acct: [id number] Name: ITZEL ALONZO Rep #: [id number] : 1950 74 From: Steven Tejeda DO PCP: Carlene Haji EMPLOYMENT SERVICES DIRECTOROnurC Status:DEP ER Location: ED HPI History of [...] with lung cancer in his right lung. [facility] Medical History Kidney stones Neuropathy PTSD [...] to obtaining)] (more content not included)... Normal [facility] Eosinophil percentageOrdered By: Steven Tejeda on 04-23-2025 Eosinophils/100 WBC (Bld) 1.9 % 0-5 [facility] Erythrocyte distribution wid th ratioOrdered By: Steven Tejeda on 04-23-2025 Erythrocyte distribution width (RBC) [Ratio] 19.0 % High 11.6-14.6 [facility] Erythrocyte distribution wid th standard deviationOrdered By: Steven Tejeda on 04-23-2025 Erythrocyte distribution width (RBC) [Ratio] 43.6 fl 35.1-43.9 [facility] Glomerular filtration rate ( GFR) estimation/1.73 sq m using serum, plasma, or whole bOrdered By: Steven Tejeda on 04-23-2025 GFR/1.73 sq M.predicted among non-blacks MDRD (S/P/Bld) [Vol rate/Area] 82 mL/min/{1.73_m2} >60 [facility] Comment on above: mL/min/1.73m2 CKD-EP I Creatinine Equation (2020) Hematocrit Auto (Bld) [Volum e fraction]Ordered By: Steven Tejeda on 04-23-2025 Hematocrit (Bld) [Volume fraction] 31.1 % Low 40-54 [facility] Hemoglobin measurementOrdere d By: Steven Tejeda on 04-23-2025 Hemoglobin (Bld) [Mass/Vol] 9.3 g/dL Low 13.0-16.5 [facility] Immature granulocytes/100 WB C Auto (Bld)Ordered By: Steven Tejeda on 04-23-2025 Immature granulocytes/100 WBC (Bld) 0.500 % 0.0-0.9 [facility] Comment on above: IG% - Immature Granu locytes (promyelocytes, myelocytes and metamyelocytes) > 1% indicates that a LEFT SHIFT is Present. International normalized rat io (INR) calculationOrdered By: Steven Tejeda on 04-23-2025 INR Coag (Bld) [Relative time] 1.1 {INR} [facility] L499.0042on 04-23-2025 Trop T High Sen 27 ng/L High <=22 [facility] Comment on above: Performed By: #### L 500.2500, L100.0100 #### [facility] [address] [place], [address] L501.4021on 04-23-2025 Trop T High Sen 26 ng/L High <=22 [facility] Comment on above: Performed By: #### L 501.080 #### [facility] [address], [place], [address] MCV (mean corpuscular volume ) determinationOrdered By: Steven Tejeda on 04-23-2025 MCV (RBC) [Entitic vol] 66.0 fL Low 80-94 [facility] Mean corpuscular hemoglobin (MCH) determinationOrdered By: Steven Tejeda on 04-23-2025 MCH (RBC) [Entitic mass] 19.7 pg Low 27.0-32.0 [facility] Mean corpuscular hemoglobin concentration (MCHC) determinationOrdered By: Steven Tejeda on 04-23-2025 MCHC (RBC) [Mass/Vol] 29.9 g/dL Low 32-36 [facility] Mean platelet volume determi nationOrdered By: Steven Tejeda on 04-23-2025 Platelet mean volume (Bld) [Entitic vol] 9.4 fL 6.2-12.0 [facility] Monocyte percentageOrdered B y: Steven Tejeda on 04-23-2025 Monocytes/100 WBC (Bld) 4.9 % 0-10 [facility] Neutrophil percentageOrdered By: Steven Tejeda on 04-23-2025 Neutrophils/100 WBC (Bld) 64.9 % 47-70 [facility] Nucleated red blood cell per centageOrdered By: Steven Tejeda on 04-23-2025 Nucleated RBC/100 WBC (Bld) [Ratio] 0 % 0-5 [facility] Partial Thromboplast Timeon 04-23-2025 aPTT Coag (Bld) [Time] 27.9 s Normal 24.1-36.2 [facility] Comment on above: Performed By: #### L 501.080 #### [facility] [address] [place], [address] Platelet countOrdered By: Emil Tejeda on 04-23-2025 Platelets (Bld) [#/Vol] 350 10*3/uL 150-450 [facility] Potassium measurement (mass/ volume)Ordered By: Steven Tejeda on 04-23-2025 Potassium (Unsp spec) [Mass/Vol] 3.9 mmol/L 3.3-5.1 [facility] Prothrombin Time w/INRon INR Coag (PPP) [Relative time] 1.1 {INR} Normal [facility] Comment on above: Performed By: #### L 501.080 #### [facility] [address] [place], [address] PT Coag (PPP) [Time] 14.2 s Normal 11.7-14.9 [facility] Comment on above: Performed By: #### L 501.080 #### [facility] [address] [place], [address] Prothrombin timeOrdered By: Steven Tejeda on 04-23-2025 PT Coag (PPP) [Time] 14.2 s 11.7-14.9 [facility] RBC Auto (Bld) [#/Vol]Ordere d By: Steven Tejeda on 04-23-2025 RBC (Bld) [#/Vol] 4.71 10*6/uL 4.6-6.2 [facility] STROKE Brain/Head without Co nton 04-23-2025 STROKE Brain/Head without Cont [facility] Imaging Services [address] [place] [address] STROKE Brain/Head without Cont MR#: [id number] Acct: [id number] Name: ITZEL ALONZO Rep #: [id number] : 1950 M 74 From: Deonte Perez MD PCP: SID Haro Status: REG ER Study: STROKE Brain/Head without Cont Date of Exam: 0 04/23/25 Exam# [id number] Ordering Dr: Steven Tejeda DO PROCEDURE: STROKE [...] atrophy and chronic microvascular ischemia. Reading Location: [id number] CC: EMPLOYMENT SERVICES DIRECTOR-C Carlene Haji; Dr. Steven Tejeda DO Police Investigator: Signed Normal [facility] STROKE CTA Head AND Neck W/C onon 04-23-2025 STROKE CTA Head AND Neck W/Con [facility] Imaging Services [address] [place] [address] 001051 STROKE CTA Head AND Neck W/Con MR#: [id number] Acct: [id number] Name: ITZEL ALONZO Rep #: [id number] : 1950 M 74 From: Deonte Perez MD PCP: SID Haro Status: REG ER Study: STROKE CTA Head AND Neck W/Con Date of Exam: 0 04/23/25 Exam# [id number] Ordering Dr: Steven Tejeda DO PROCEDURE: STROKE [...] occluded similar to the prior CTA. Anatomy: [place] of [place] anatomy is normal. Aneurysm or [...] apical mass suspicious for malignancy. Reading Location: [id number] CC: SID Haji; Dr. Steven Tejeda DO Police Investigator: Signed Normal [facility] Serum creatinine measurement (mass/volume)Ordered By: Steven Tejeda on 04-23-2025 Creatinine [Mass/Vol] 0.96 mg/dL 0.70-1.20 [facility] Serum glucose measurement (m ass/volume)Ordered By: Steven Tejeda on 04-23-2025 Glucose [Mass/Vol] 292 mg/dL High 70-99 [facility] Serum or plasma calcium ivania urement (mass/volume)Ordered By: Steven Tejeda on 04-23-2025 Calcium [Mass/Vol] 10.3 mg/dL 7.6-11.0 [facility] Serum or plasma urea nitroge n measurement (mass/volume)Ordered By: Steven Tejeda on 04-23-2025 Urea nitrogen [Mass/Vol] 20 mg/dL High 4-19 [facility] Sodium levelOrdered By: Steven Tejeda on 04-23-2025 Sodium [Moles/Vol] 134 mmol/L 133-145 [facility] Troponin T.cardiac [Mass/vol ume] in Serum or Plasma by High sensitivity methodOrdered By: Steven Tejeda on 04-23-2025 Troponin T.cardiac High sensitivity method [Mass/Vol] 27 ng/L High <22 [facility] Troponin T.cardiac High sensitivity method [Mass/Vol] 26 ng/L High <22 [facility] White blood cell (WBC) count Ordered By: Steven Tejeda on 04-23-2025 WBC (Bld) [#/Vol] 12.9 10*3/uL High 4.4-11.0 [facility] Bedside Glucoseon 12-12-2024 FINGERSTICK GLU 358 mg/dL High 74-106 [facility] Comment on above: Result Comment: BELLA PENALOZA OF PATIENT CARE PER NURSING PROTOCOL Performed By: #### L 501.080 #### [facility] [address] [facility] [place], [address] Emergency Department Summary on 12-12-2024 Emergency Department Summary [facility] Medical Records Department [address] [place] [address] Emergency Department Summary 12/12/24 MR#: [id number] Acct: [id number] Name: ITZEL ALONZO Rep #: [id number] : 1950 74 From: Juvencio Shen MD [facility] Status:DEP ER Location: ED HPI History of Present Illness Chief Complaint: General Illness Narrative Narrative: Patient is a 74-year-old male with history of homelessness, anxiety, depression, PTSD, is part of the NH system, and per the patient has history [...] [place] the [place] of [facility] secondary to his family being there. [...] he is mostly here because of frustration. [facility] Medical History (Updated 12/12/24 @ 13:26 [...] to auscult (more content not included)... Normal [facility] Vital Signs Date Time Vital Sign Value Performing Clinician Facility 07-08-2025 14:00-0400 Diastolic blood pressure 81 mm[Hg] Dr. Steven Tejeda DO Work Phone: [facility] 07-08-2025 14:00-0400 Heart rate 101 /min Dr. Steven Tejeda DO Work Phone: 2(283)759-641839 [place] [address] 07-08-2025 14:00-0400 Respiratory rate 19 /min Dr. Steven Tejeda DO Work Phone: 6(978)718-824139 [place] [address] 07-08-2025 14:00-0400 SaO2% (BldA) [Mass fraction] 100 % Dr. Steven Tejeda DO Work Phone: 1(894)113-980939 [place] [address] 07-08-2025 14:00-0400 Systolic blood pressure 130 mm[Hg] Dr. Steven Tejeda DO Work Phone: 4(603)619-066839 [place] [address] 07-08-2025 13:59-0400 Body temperature 98.7 [degF] Dr. Steven Tejeda DO Work Phone: 4(571)529-646139 [place] [address] 07-08-2025 10:55-0400 Body height 182.[address] Steven Tejeda DO Work Phone: 8(226)138-170739 [place] [address] 07-08-2025 10:55-0400 Body mass index (BMI) [Ratio] 22.3 kg/m2 Dr. Steven Tejeda DO Work Phone: 3(245)825-314239 [place] [address] 07-08-2025 10:55-0400 Body weight 74.[address] Steven Tejeda DO Work Phone: 8(277)459-329239 [place] [address] 07-07-2025 09:32-0400 Inhaled oxygen flow rate 2 L/min Dr. Steven Tejeda DO Work Phone: 8(162)098-374939 [place] [address] 07-07-2025 07:46-0400 SaO2% (BldA) [Mass fraction] 91 % Dr. Steven Tejeda DO Work Phone: 0(200)150-023839 [place] [address] 07-07-2025 07:10-0400 Heart rate 101 /min Dr. Steven Tejeda DO Work Phone: 6(247)288-449139 [place] [address] 07-07-2025 07:10-0400 Respiratory rate 18 /min Dr. Steven Tejeda DO Work Phone: 4(208)357-762654 [place] [address] 07-07-2025 05:36-0400 Body mass index (BMI) [Ratio] 17.4 kg/m2 Dr. Steven Tejeda DO Work Phone: 1(336)353-744939 [place] [address] 07-07-2025 05:36-0400 Body weight 59.[address] Steven Tejeda DO Work Phone: 1(789)472-059454 [place] [address] 07-06-2025 22:04-0400 Body temperature 98.9 [degF] Dr. Steven Tejeda DO Work Phone: 2(242)344-587854 [place] [address] 07-06-2025 22:04-0400 Diastolic blood pressure 94 mm[Hg] Dr. Steven Tejeda DO Work Phone: 0(064)147-180854 [place] [address] 07-06-2025 22:04-0400 Systolic blood pressure 146 mm[Hg] Dr. Steven Tejeda DO Work Phone: 1(030)092-712754 [place] [address] 07-05-2025 21:24-0400 Inhaled oxygen concentration 2 % Dr. Steven Tejeda DO Work Phone: 7(777)584-942539 [place] [address] 07-05-2025 10:29-0400 Body height 185.[address] Steven Tejeda DO Work Phone: 2(208)452-222339 [place] [address] 07-03-2025 23:03-0400 Body temperature 98.3 [degF] Dr. Steven Tejeda DO Work Phone: 7(132)463-892739 [place] [address] 07-03-2025 23:03-0400 Diastolic blood pressure 90 mm[Hg] Dr. Steven Tejeda DO Work Phone: 4(827)753-630139 [place] [address] 07-03-2025 23:03-0400 Heart rate 115 /min Dr. Steven Tejeda DO Work Phone: [facility] 07-03-2025 23:03-0400 Respiratory rate 22 /min Dr. Steven Tejeda DO Work Phone: 3(507)434-474239 [place] [address] 07-03-2025 23:03-0400 SaO2% (BldA) [Mass fraction] 96 % Dr. Steven Tejeda DO Work Phone: 1(723)260-988439 [place] [address] 07-03-2025 23:03-0400 Systolic blood pressure 160 mm[Hg] Dr. Steven Tejeda DO Work Phone: 6(618)912-238639 [place] [address] 07-03-2025 19:10-0400 Body height 185.[address] Steven Tejeda DO Work Phone: 3(024)443-609754 [place] [address] 07-03-2025 19:10-0400 Body mass index (BMI) [Ratio] 18.8 kg/m2 Dr. Steven Tejeda DO Work Phone: 4(908)672-627239 [place] [address] 07-03-2025 19:10-0400 Body weight 64.[address] Steven Tejeda DO Work Phone: 5(278)213-763654 [place] [address] 05-13-2025 13:11-0400 Body temperature 97.8 [degF] Dr. Steven Tejeda DO Work Phone: 8(307)617-616839 [place] [address] 05-13-2025 13:11-0400 Diastolic blood pressure 72 mm[Hg] Dr. Steven Tejeda DO Work Phone: 7(450)946-525339 [place] [address] 05-13-2025 13:11-0400 Heart rate 90 /min Dr. Steven Tejeda DO Work Phone: 9(509)348-671239 [place] [address] 05-13-2025 13:11-0400 Respiratory rate 12 /min Dr. Steven Tejeda DO Work Phone: 3(614)460-351839 [place] [address] 05-13-2025 13:11-0400 SaO2% (BldA) [Mass fraction] 95 % Dr. Steven Tejeda DO Work Phone: 9(611)294-548439 [place] [address] 05-13-2025 13:11-0400 Systolic blood pressure 140 mm[Hg] Dr. Steven Tejeda DO Work Phone: 2(703)454-109139 [place] [address] 05-13-2025 12:40-0400 Inhaled oxygen flow rate 2 L/min Dr. Steven Tejeda DO Work Phone: 5(021)041-409039 [place] [address] 05-12-2025 11:06-0400 Body height 185.[address] Steven Tejeda DO Work Phone: 5(753)565-662039 [place] [address] 05-12-2025 11:06-0400 Body weight 64.[address] Steven Tejeda DO Work Phone: 2(907)925-318454 [place] [address] 05-11-2025 20:16-0400 Body mass index (BMI) [Ratio] 18.7 kg/m2 Dr. Steven Tejeda DO Work Phone: 9(488)260-990454 [place] [address] 05-11-2025 19:29-0400 Body temperature 98.6 [degF] Dr. Steven Tejeda DO Work Phone: 5(428)051-157354 [place] [address] 05-11-2025 19:29-0400 Diastolic blood pressure 85 mm[Hg] Dr. Steven Tejeda DO Work Phone: 1(246)574-023854 [place] [address] 05-11-2025 19:29-0400 Heart rate 99 /min Dr. Steven Tejeda DO Work Phone: 0(255)263-615139 [place] [address] 05-11-2025 19:29-0400 Respiratory rate 24 /min Dr. Steven Tejeda DO Work Phone: 4(023)161-411839 [place] [address] 05-11-2025 19:29-0400 SaO2% (BldA) [Mass fraction] 95 % Dr. Steven Tejeda DO Work Phone: 9(294)435-355339 [place] [address] 05-11-2025 19:29-0400 Systolic blood pressure 154 mm[Hg] Dr. Steven Tejeda DO Work Phone: 9(600)873-006739 [place] [address] 05-11-2025 14:09-0400 Body mass index (BMI) [Ratio] 19.2 kg/m2 Dr. Steven Tejeda DO Work Phone: 2(157)045-627239 [place] [address] 05-11-2025 14:09-0400 Body weight 66.[address] Steven Tejeda DO Work Phone: 3(372)285-807039 [place] [address] 05-11-2025 14:05-0400 Body height 185.[address] Steven Tejeda DO Work Phone: 0(269)547-656639 [place] [address] 05-04-2025 14:54-0400 Body temperature 98.3 [degF] Dr. Steven Tejeda DO Work Phone: 8(784)926-662139 [place] [address] 05-04-2025 14:54-0400 Diastolic blood pressure 88 mm[Hg] Dr. Steven Tejeda DO Work Phone: 1(598)251-875339 [place] [address] 05-04-2025 14:54-0400 Heart rate 91 /min Dr. Steven Tejeda DO Work Phone: 5(465)365-707539 [place] [address] 05-04-2025 14:54-0400 Respiratory rate 16 /min Dr. Steven Tejeda DO Work Phone: 4(212)885-196554 [place] [address] 05-04-2025 14:54-0400 SaO2% (BldA) [Mass fraction] 98 % Dr. Steven Tejeda DO Work Phone: 0(588)481-661739 [place] [address] 05-04-2025 14:54-0400 Systolic blood pressure 146 mm[Hg] Dr. Steven Tejeda DO Work Phone: 1(154)056-385139 [place] [address] 05-04-2025 11:22-0400 Inhaled oxygen flow rate 97 L/min Dr. Steven Tejeda DO Work Phone: 8(691)858-009839 [place] [address] 05-04-2025 11:13-0400 Body height 185.[address] Steven Tejeda DO Work Phone: 4(365)940-792739 [place] [address] 05-04-2025 11:13-0400 Body mass index (BMI) [Ratio] 18.8 kg/m2 Dr. Steven Tejeda DO Work Phone: 6(290)643-989739 [place] [address] 05-04-2025 11:13-0400 Body weight 64.[address] Steven Tejeda DO Work Phone: 0(758)422-574339 [place] [address] 04-24-2025 00:37-0400 Body temperature 98.2 [degF] Dr. Steven Tejeda DO Work Phone: 5(772)297-409954 [place] [address] 04-24-2025 00:37-0400 Diastolic blood pressure 81 mm[Hg] Dr. Stveen Tejeda DO Work Phone: 8(336)746-080554 [place] [address] 04-24-2025 00:37-0400 Heart rate 83 /min Dr. Steven Tejeda DO Work Phone: 2(922)634-826954 [place] [address] 04-24-2025 00:37-0400 Respiratory rate 25 /min Dr. Steven Tejeda DO Work Phone: 8(358)399-749854 [place] [address] 04-24-2025 00:37-0400 SaO2% (BldA) [Mass fraction] 99 % Dr. Steven Tejeda DO Work Phone: 2(921)904-856054 [place] [address] 04-24-2025 00:37-0400 Systolic blood pressure 149 mm[Hg] Dr. Steven Tejeda DO Work Phone: 5(657)795-107854 [place] [address] 04-23-2025 21:27-0400 Body mass index (BMI) [Ratio] 20.8 kg/m2 Dr. Steven Tejeda DO Work Phone: 5(250)566-905954 [place] [address] 04-23-2025 21:07-0400 Body height 185.[address] Steven Tejeda DO Work Phone: 0(917)467-472854 [place] [address] 04-23-2025 21:07-0400 Body weight 71.[address] Steven Tejeda DO Work Phone: 2(259)450-902954 [place] [address] Encounters Encounter Date Encounter Type Care Provider Facility Start: 07-08-2025 End: 07-08-2025 Emergency department patient visit Dr. Steven Tejeda DO Work Phone: -Emergency Department Work Phone: Start: 07-07-2025 Non-patient / Non-visit Dr. Anthony Salgado MD -[facility] Work Phone: Start: 07-06-2025 Non-patient / Non-visit Dr. Anthony Salgado MD -[facility] Work Phone: Start: 07-05-2025 Non-patient / Non-visit Dr. Anthony Salgado MD -[facility] Work Phone: Start: 07-04-2025 Non-patient / Non-visit Dr. Uche lowery MD -[facility] Work Phone: Start: 07-03-2025 ambulatory Johanne Evans Facility :[facility] Start: 07-03-2025 End: 07-07-2025 Evaluation and management of inpatient Dr. Johanne Evans MD -[facility] 3 Work Phone: Start: 05-13-2025 Non-patient / Non-visit Dr. Anthony Salgado MD -[facility] Work Phone: Start: 05-12-2025 Non-patient / Non-visit Dr. Anthony Salgado MD -[facility] Work Phone: Start: 05-11-2025 ambulatory [...] 12-12-2024 End: 12-12-2024 Emergency department patient visit [facility] Facility:[facility] Start: 05-09-2021 ambulatory Facility:[facility] Procedures Date Procedure Procedure Detail Performing Clinician [...] Date Care Activity Detail Author Start: 07-08-2025 [facility] Start: 07-07-2025 Patient discharge [facility] Start: 07-06-2025 End: 07-06-2025 Administration of blood product [facility] Start: 07-04-2025 End: 07-05-2025 [facility] Start: 07-04-2025 Measuring intake and output [facility] Start: 07-04-2025 Measuring intake and output [facility] Start: 07-04-2025 Provision of overbed trapeze [facility] Start: 07-04-2025 Recommendation to co ntinue with treatment [facility] Start: 07-04-2025 Ambulation therapy management [facility] Start: 07-04-2025 Assessment of risk o f venous thromboembolism [facility] Start: 07-04-2025 Catheterization of vein [facility] Start: 07-04-2025 Exercises [facility] Start: 07-04-2025 Following clinical p athway protocol [facility] Start: 07-04-2025 Measuring intake and output [facility] Start: 07-04-2025 Neurovascular assessment [facility] Start: 07-04-2025 Procedure discontinued [facility] Start: 07-04-2025 Provision of activity privileges [facility] Start: 07-04-2025 Referral to occupati onal therapist [facility] Start: 07-04-2025 Referral to service [facility] Start: 07-04-2025 Vital signs measurements [facility] Start: 07-04-2025 Wound care [facility] Start: 07-04-2025 Measuring intake and output [facility] Start: 07-04-2025 Application of inter mittent pneumatic compression device [facility] Start: 07-04-2025 Following clinical p athway protocol [facility] Start: 07-03-2025 End: 07-04-2025 Consultation [facility] Start: 07-03-2025 Application of ice c ollar, cap or bag [facility] Start: 07-03-2025 Assessment of risk o f venous thromboembolism [facility] Start: 07-03-2025 Care regimes management [facility] Start: 07-03-2025 Fall prevention [facility] Start: 07-03-2025 Inhalation therapy procedure [facility] Start: 07-03-2025 Insertion of cathete r into peripheral vein [facility] Start: 07-03-2025 Introduction of urinary catheter [facility] Start: 07-03-2025 Neurovascular assessment [facility] Start: 07-03-2025 Notification of physician [facility] Start: 07-03-2025 Oxygen therapy [facility] Start: 07-03-2025 End: 07-04-2025 Patient referral to dietitian [facility] Start: 07-03-2025 Providing care accor ding to standard [facility] Start: 07-03-2025 Referral to occupati onal therapist [facility] Start: 07-03-2025 Referral to service [facility] Start: 07-03-2025 Skin care [facility] Start: 07-03-2025 Tobacco use cessation education [facility] Start: 07-03-2025 End: 07-03-2025 [facility] Start: 07-03-2025 Measuring intake and output [facility] Start: 07-03-2025 Recommendation to co ntinue with treatment [facility] Start: 07-03-2025 Verification routine [facility] Start: 07-03-2025 Hospital admission, emergency, from emergency room, medical nature [facility] Start: 07-03-2025 Admission procedure [facility] Start: 07-03-2025 Serum inorganic phos phate measurement [facility] Start: 07-03-2025 [facility] Start: 07-03-2025 Application of ice c ollar, cap or bag [facility] Start: 05-12-2025 [facility] Start: 05-12-2025 Patient discharge [facility] Start: 05-12-2025 Patient referral to dietitian [facility] Start: 05-11-2025 Following clinical p athway protocol [facility] Start: 05-11-2025 Ambulation without limitation [facility] Start: 05-11-2025 Assessment of risk o f venous thromboembolism [facility] Start: 05-11-2025 Care regimes management [facility] Start: 05-11-2025 Insertion of cathete r into peripheral vein [facility] Start: 05-11-2025 Notification of physician [facility] Start: 05-11-2025 Oxygen therapy [facility] Start: 05-11-2025 Providing care accor ding to standard [facility] Start: 05-11-2025 End: 05-11-2025 [facility] Start: 05-11-2025 Verification routine [facility] Start: 05-11-2025 Admission procedure [facility] Start: 05-11-2025 Hospital admission, emergency, from emergency room, medical nature [facility] Start: 05-11-2025 End: 05-11-2025 [facility] Start: 05-11-2025 Inhalation therapy procedure [facility] Start: 05-11-2025 Patient referral to dietitian [facility] Start: 05-04-2025 [facility] Start: 04-24-2025 [facility] Start: 04-23-2025 Oxygen therapy [facility] Start: 04-23-2025 [facility] Magnesium measurement [facility] Natriuretic peptide. B prohormone N-Terminal [Mass/volume] in Serum or Plasma [facility] Patient Education [facility] Work Phone: Patient referral [facility] Work Phone: Troponin T.cardiac [ Mass/volume] in Serum or Plasma by High sensitivity method [facility] Payers Date Payer Category Payer Self-pay [id number] 2024 Self-pay [id number] 2024 Self-pay Unknown [id number] 2.16.8 [id number] Unknown [id number] 2.16.8 [id number] Unknown [id number] 2.16.8 [id number] Unknown [id number] 2.16.8 [id number] Unknown [id number] 2.16.8 [id number] Unknown [id number] 2.16.8 [id number] Unknown [id number] 2.16.8 [id number] Unknown [id number] 2.16.8 [id number] Unknown [id number] 2.16.8 [id number] Unknown [id number] 2.16.8 [id number] Unknown [id number] 2.16.8 [id number] Unknown [id number] 2.16.8 [id number] Unknown [id number] 2.16.8 [id number] Unknown [id number] 2.16.8 [id number] Social History Date Type Detail Facility Start: 04-23-2025 End: 07-08-2025 Tobacco smoking status NHIS Current some day smoker [facility] Start: 04-23-2025 Tobacco Use Tobacco Use [facility] Start: 1950 Sex Assigned At Male W [facility] Medical Equipment Procedure Code Equipment Code Equipment [...] Facility 07-07-2025 Functional status Back to bed [facility] Work Phone: 05-13-2025 Functional status Ambulates [facility] Work Phone: Mental Status Date Assessment Result Facility 07-07-2025 Cognitive function Voice/Name [facility] Work Phone: 05-13-2025 Cognitive function [facility]Name [facility] Work Phone: 05-11-2025 Cognitive function [facility]Name [facility] Work Phone: 04-23-2025 Cognitive function Voice[facility]Name [facility] Work Phone: Clinical Notes 04-23-2025 to 07-08-2025 Note Date & Type Note Facility 07-08-2025 Discharge summary [facility] 07-08-2025 Discharge summary Note Date/Time July 08, 2025 2:57pm [facility] Medical Records Department [address] [place] [address] Emergency Department Summary 07/08/25 MR#: [id number] Acct: [id number] Name: ITZEL ALONZO Rep #:[id number] : 1950 75 From: Monty Clarke MD PCP: SID Haro Status:REG ER Location: ED HPI <AGUSTINA Sanches - Last Filed: 07/08/25 13:36> History of Present Illness Chief Complaint: Complaint Narrative Narrative: 75-year-old male with PMH of HTN, HLD, DM2, cirrhosis, anemia had a traumatic hip fracture with surgical fixation on 07/04/[address] Nuno Campbell. [facility] He states this morning he started to have blood in his urine prompting his visit. He also states they are giving him Tylenol and it is not managing his hip pain well. He denies fever or chills, nausea or vomiting, or abdominal or flank pain. He was discharged on Eliquis 2.5 mg twice daily. 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 SKIN: [place] over right hip incisions are clean, dry, [...] 100 100 Oxygen Delivery Method Room Air [facility] <AGUSTINA Sanches - Last Filed: 07/08/25 13:36> [facility] Narrative Medical decision making narrative: History gathered [...] having postop pain so was given a Britt. Blood work looks stable with aglobin of [...] He apparently receives his care at the [facility]. He presentsnow because of hematuria. He did [...] 75.3 H Lymph % (Auto) 16.1 L Swift % (Auto) 7.2 Eos % (Auto) 0.9 [...] Clarity Clear Urine pH 6.5 Ur Specific [place] 1.010 Urine Protein 100 H Urine Glucose [...] He apparently receives his care at the NH. He presents now because of hematuria. He [...] 75.3 H Lymph % (Auto) 16.1 L Swift % (Auto) 7.2 Eos % (Auto) 0.9 [...] Clarity Clear Urine pH 6.5 Ur Specific [place] 1.010 Urine Protein 100 H Urine Glucose [...] Care Provider: Carlene Haji Referrals: Carlene Haji, EMPLOYMENT SERVICES DIRECTOR-C [Primary Care Provider] - Activity Restrictions/Additional Instructions: [...] come back to the ER. Print Language: Greek Disposition Disposition: Home, Self Care What to do if you have Problems For any increased pain, shortness of breath, bleeding, nausea or vomiting, chestpain, or any unexpected problems, contact your Primary Care Provider. Call [facility] ([phone]) or report to the closest Emergency Room. Call 911 if necessary. 07/08/25 1457 <Electronically signed by Monty Clarke MD> Cosigner Signature (if applicable): 07/08/25 1336 <Electronically signed by Marissa BERRIOS> CC: SID Haji ~ Signed [facility] Work Phone: 1(978) 911-193008-13-2025 Consult note [facility] Medical Records Department [address] [place] [address] Counseling Note - Pharmacy 07/07/25 1547 MR#: [id number] Acct: [id number] Name: ITZEL ALONZO Rep #:[id number] : 1950 75 From: Karissa Polo PCP: SID Haro Status:ADM IN Y [facility] [place] [facility] Service has performed discharge [...] Signature (if applicable): Date CC: ~ Signed [facility]08-13-2025 Consult note Author Karissa Polo [facility] Note Date/Time July 07, 2025 6: 03pm [facility] Medical Records Department [address] [facility] [place] [address] Counseling Note - Pharmacy 07/07/25 1547 MR#: [id number] Acct: [id number] Name: ITZEL ALONZO Rep #:[id number] : 1950 75 From: Karissa Polo PCP: LUIS MIGUEL HaroC Status:ADM IN Location: [facility] [id number] Pharmacy [place] [facility] Recon[facility] Pharmacy Service has performed discharge [...] Signature (if applicable): Date CC: ~ Signed [facility] Work Phone: 1(613) 217-191808-13-2025 Discharge summary Author Anthony Salgado [facility] Note Date/Time July 07, 2025 3: 18pm [facility] Medical Records Department [address] [place] [address] Discharge Summary 07/07/25 1517 MR#: [id number] Acct: [id number] Name: ITZEL ALONZO Rep #:[id number] : 1950 75 From: Anthony Kiser PCP: SID Haro Status:ADM IN Location: [place] [address] Providers Date of Admission: 07/03/25 Date of [...] ? Requested for PT OT eval and socially responsible investment adviser to assist with discharge planning 3. Right [...] is for patient to follow-up with the [facility] following discharge 12. Restless leg syndrome [...] (Auto) 71.4 H, Lymph % (Auto) 19.0, Swift % (Auto) 7.8, Eos % (Auto) 1.3, [...] Malignancy can not be excluded. Reading Location: [facility] Lower Extremity CT 07/03/25 21:54 IMPRESSION: Acute, moderately comminuted and impacted right intertrochanteric femoral fracture. No aggressive osseous lesions. Reading Location: [facility] Hip X-Ray 07/04/25 10:00 IMPRESSION: Postsurgical changes for repair of right femoral fracture with no acute complications. Reading Location: [facility] Medications at Discharge Home Medications gabapentin 300 [...] 07/05/25 10:37 SB (Rec: 07/05/25 10:37 SB [id number]) Nutrition Malnutrition Evidence of Yes Malnutrition Exists [...] (Auto) 71.4 H, Lymph % (Auto) 19.0, Swift % (Auto) 7.8, Eos % (Auto) 1.3, [...] Primary Care Provider: Carlene Haji Consulting Providers: Johanen Evans; Nuno Campbell; Uche Felix Discharge Orders/Prescriptions [...] Staff] - Within 2 Weeks Carlene Haji EMPLOYMENT SERVICES DIRECTOR-C [Primary Care Provider] - Within 2 Weeks Disposition Disposition (needs filled in before D/C Order can be placed): [facility] Facility Charges/Coding Visit Charges Inpatient E&M: 52758 Disch Hosp >30min 07/07/251517 <Electronically signed by Anthony Salgado MD> Cosigner Signature (if applicable): CC: EMPLOYMENT SERVICES DIRECTOR-C Carlene Haji; Dr. Anthony Salgado MD; Dr. Nuno Campbell MD~ Signed [facility] Work Phone: 1(429) 611-988008-13-2025 Discharge summary Author Anthony Salgado [facility] Note Date/Time July 07, 2025 3: 16pm [facility] Medical Records Department [address] [place] [address] Transfer to [facility] MR#: [id number] Acct: [id number] Name: ITZEL ALONZO Rep #:[id number] : 1950 75 From: Anthony Kiser PCP: SID Haro Status:ADM IN Certification of patient admission REQUIRED AT TIME OF ADMISSION. I CERTIFY THAT POST-HOSPITAL ECF SERVICES ARE REQUIRED TO BE GIVEN ON AN IN-PATIENT BASIS BECAUSE OF THE ABOVE NAMED PATIENT'S NEED FOR DETENTION CARE ON A CONTINUING BASIS FOR THE CONDITION(S) FOR WHICH HE/SHE WAS RECEIVING IN-PATIENT HOSPITAL SERVICES PRIOR TO HIS/HER TRANSFER TO THE F. 07/07/251515<Electronically signed by Anthony Salgado MD> Diet Diet [...] ? Requested for PT OT eval and socially responsible investment adviser to assist with discharge planning 3. Right [...] is for patient to follow-up with the [facility] following discharge 12. Restless leg syndrome [...] (Auto) 71.4 H, Lymph % (Auto) 19.0, Swift % (Auto) 7.8, Eos % (Auto) 1.3, [...] Malignancy can not be excluded. Reading Location: [id number] Lower Extremity CT 07/03/25 21:54 IMPRESSION: Acute, moderately comminuted and impacted right intertrochanteric femoral fracture. No aggressive osseous lesions. Reading Location: [id number] Hip X-Ray 07/04/25 10:00 IMPRESSION: Postsurgical changes for repair of right femoral fracture with no acute complications. Reading Location: [facility] Allergies/Procedures Done in Hospital Allergies No Known [...] Haji Consulting Providers: Johanne Evans; Nuno Campbell; Uhce Felix Discharge Orders/Prescriptions Prescriptions: New acetaminophen 500 [...] in before D/C Order can be placed): [facility] Facility (1) Closed intertrochanteric fracture of right hip Qualifiers: Encounter type: initial encounter Fracture alignment: displaced Qualified Code(s): S72.141A - Displaced intertrochanteric fracture of right femur, initialencounter for closed fracture 07/07/25 1516 <Electronically signed by Anthony Salgado MD> Cosigner Signature (if applicable): CC: SID Haji; Dr. Johanne Evans MD; Dr. Uche Felix MD; Dr. Nuno Campbell MD ~ [facility] Work Phone: 1(444) 761-694808-13-2025 Progress note Author [facility] Damian [facility] Note Date/Time July 07, 2025 2: 03pm [facility] Medical Records Department [address] [place] [address] Progress Note - Hospitalist 07/07/25 1401 MR#: [id number] Acct: [id number] Name: ITZEL ALONZO Rep #:[id number] : 1950 75 From: Anthony Kiser PCP: SID Haor Status:ADM IN Location: [place] [address] Reason for Visit Chief Complaint: Fall, R [...] 07/05/25 10:37 SB (Rec: 07/05/25 10:37 SB [id number]) Nutrition Malnutrition Evidence of Yes Malnutrition Exists [...] (Auto) 71.4 H, Lymph % (Auto) 19.0, Swift % (Auto) 7.8, Eos % (Auto) 1.3, [...] ? Requested for PT OT eval and socially responsible investment adviser to assist with discharge planning 3. Right sided lung cancer (suprahilar, unclear exact specific type) with associated hypercalcemia of malignancy with recent transition to NH system. Patient to resume care following discharge [...] is for patient to follow-up with the [facility] following discharge 12. Restless leg syndrome [...] (Auto) 71.4 H, Lymph % (Auto) 19.0, [place] % (Auto) 7.8, Eos % (Auto) 1.3, [...] Malignancy can not be excluded. Reading Location: [facility] Lower Extremity CT 07/03/25 21:54 IMPRESSION: Acute, moderately comminuted and impacted right intertrochanteric femoral fracture. No aggressive osseous lesions. Reading Location: [facility] Hip X-Ray 07/04/25 10:00 IMPRESSION: Postsurgical changes for repair of right femoral fracture with no acute complications. Reading Location: [facility] Charges/Coding Visit Charges Inpatient E&M: 81077 Subs Hosp L2 07/07/25 1403 <Electronically signed by Anthony Salgado MD> Cosigner Signature (if applicable): CC: ~ Signed [facility] Work Phone: 1(925) 606-351908-13-2025 Discharge summary [facility] Medical Records Department [address] [place] [address] Discharge Summary 07/07/25 1517 MR#: [id number] Acct: [id number] Name: ITZEL ALONZO Rep #:[id number] : 1950 75 From: Anthony Kiser PCP: SID Haro Status:ADM IN [facility] Providers Date of Admission: 07/03/25 Date of [...] ? Requested for PT OT eval and socially responsible investment adviser to assist with discharge planning 3. Right sided lung cancer (suprahilar, unclear exact specific type) with associated hypercalcemia of malignancy with recent transition to NH system. Patient to resume care following discharge [...] is for patient to follow-up with the NH Hospital following discharge 12. Restless leg syndrome [...] (Auto) 71.4 H, Lymph % (Auto) 19.0, Swift % (Auto) 7.8, Eos % (Auto) 1.3, [...] line. Malignancy cannot be excluded. Reading Location: [facility] Lower Extremity CT 07/03/25 21:54 IMPRESSION: Acute, moderately comminuted and impacted right intertrochanteric femoral fracture. No aggressive osseous lesions. Reading Location: [id number] Hip X-Ray 07/04/25 10:00 IMPRESSION: Postsurgical changes for repair of right femoral fracture with no acute complications. Reading Location: [facility] Medications at Discharge Home Medications gabapentin 300 [...] 07/05/25 10:37 SB (Rec: 07/05/25 10:37 SB [id number]) Nutrition Malnutrition Evidence of Yes Malnutrition Exists [...] (Auto) 71.4 H, Lymph % (Auto) 19.0, Swift % (Auto) 7.8, Eos % (Auto) 1.3, [...] in before D/C Order can be placed): [facility] Charges/Coding Visit Charges Inpatient E&M: 75550 Disch Hosp >30min 07/07/25 1518 Cosigner Signature (if applicable): CC: SID Haji; Dr. Anthony Salgado MD; Dr. Nuno Campbell MD~ Signed [facility]08-13-2025 [facility] Medical Records Department [address] [place] [address] Discharge Summary 07/07/25 1517 MR#: [id number] Acct: [id number] Name: ITZEL ALONZO Rep #: [id number] : 1950 75 From: Anthony Salgado MD PCP: SID Haro Status:ADM IN [facility] Prov[facility] Date of Admission: 07/03/25 Date of [...] ??? Requested for PT OT eval and socially responsible investment adviser to assist with discharge planning 3. Right sided lung cancer (suprahilar, unclear exact specific type) with associated hypercalcemia of malignancy with recent transition to NH system. Patient to resume care following discharge [...] is for patient to follow-up with the [facility] following discharge 12. Restless leg syndrome [...] 07/06/25 22:20: POC Glucose (more content not included)...[facility]08-13-2025 Discharge summary [facility] Medical Records Department [address] [place] [address] Transfer to [facility] Care MR#: [id number] Acct: [id number] Name: ITZEL ALONZO Rep #:[id number] : 1950 75 From: Anthony Kiser PCP: SID Haro Status:ADM IN Certification of patient admission REQUIRED AT TIME OF ADMISSION. I CERTIFY THAT POST-HOSPITAL ECF SERVICES ARE REQUIRED TO BE GIVEN ON AN IN-PATIENT BASIS BECAUSE OF THE ABOVE NAMED PATIENT'S NEED FOR DETENTION CARE ON A CONTINUING BASIS FOR THE CONDITION(S) FOR WHICH HE/SHE WAS RECEIVING IN-PATIENT HOSPITAL SERVICES PRIOR TO HIS/HER TRANSFER TO THE [facility]. 07/07/25 1516 Diet Diet Order/Speech Therapy: INPATIENT [...] ? Requested for PT OT eval and socially responsible investment adviser to assist with discharge planning 3. Right sided lung cancer (suprahilar, unclear exact specific type) with associated hypercalcemia of malignancy with recent transition to NH system. Patient to resume care following discharge [...] is for patient to follow-up with the [facility] Hospital following discharge 12. Restless leg syndrome [...] (Auto) 71.4 H, Lymph % (Auto) 19.0, Swift % (Auto) 7.8, Eos % (Auto) 1.3, [...] line. Malignancy cannot be excluded. Reading Location: [facility] Lower Extremity CT 07/03/25 21:54 IMPRESSION: Acute, moderately comminuted and impacted right intertrochanteric femoral fracture. No aggressive osseous lesions. Reading Location: [facility] Hip X-Ray 07/04/25 10:00 IMPRESSION: Postsurgical changes for repair of right femoral fracture with no acute complications. Reading Location: [facility] Allergies/Procedures Done in Hospital Allergies No Known [...] Staff] - Within 2 Weeks Carlene Haji EMPLOYMENT SERVICES DIRECTOR-C [Primary Care Provider] - Within 2 Weeks Disposition Disposition (needs filled in before D/C Order can be placed): [facility] (1) Closed intertrochanteric fracture of right hip Qualifiers: Encounter type: initial encounter Fracture alignment: displaced Qualified Code(s): S72.141A - Displaced intertrochanteric fracture of right femur, initialencounter for closed fracture 07/07/25 1516 Cosigner Signature (if applicable): CC: EMPLOYMENT SERVICES DIRECTOR-C Carlene Haji; Dr. Johanne Evans MD; Dr. Uche Felix MD; Dr. Nuno Cambpell MD ~ [facility]08-13-2025 Progress note [facility] Medical Records Department [address] [place] [address] Progress Note - Hospitalist 07/07/25 1401 MR#: [id number] Acct: [id number] Name: ITZEL ALONZO Rep #:[id number] : 1950 75 From: Anthony Kiser PCP: SID Haro Status:ADM IN Location: [place] [address] Reason for Visit Chief Complaint: Fall, R [...] 07/05/25 10:37 SB (Rec: 07/05/25 10:37 SB [id number]) Nutrition Malnutrition Evidence of Yes Malnutrition Exists [...] (Auto) 71.4 H, Lymph % (Auto) 19.0, Swift % (Auto) 7.8, Eos % (Auto) 1.3, [...] ? Requested for PT OT eval and socially responsible investment adviser to assist with discharge planning 3. Right sided lung cancer (suprahilar, unclear exact specific type) with associated hypercalcemia of malignancy with recent transition to NH system. Patient to resume care following discharge [...] is for patient to follow-up with the [facility] Hospital following discharge 12. Restless leg syndrome [...] (Auto) 71.4 H, Lymph % (Auto) 19.0, Swift % (Auto) 7.8, Eos % (Auto) 1.3, [...] line. Malignancy cannot be excluded. Reading Location: [facility] Lower Extremity CT 07/03/25 21:54 IMPRESSION: Acute, moderately comminuted and impacted right intertrochanteric femoral fracture. No aggressive osseous lesions. Reading Location: [facility] Hip X-Ray 07/04/25 10:00 IMPRESSION: Postsurgical changes for repair of right femoral fracture with no acute complications. Reading Location: [facility] Charges/Coding Visit Charges Inpatient E&M: 57190 Subs Hosp L2 07/07/25 1403 Cosigner Signature (if applicable): CC: ~ Signed [facility]08-13-2025 Hospital Discharge instructionsAdditional Instructions Date of Discharge: 07/07/25[facility] Work Phone: 1(820) 532-177408-12-2025 Progress note Author Anthony Salgado [facility] Note Date/Time July 06, 2025 4: 23pm [facility] Medical Records Department [address] [place] [address] Progress Note - Hospitalist 07/06/25 1007 MR#: [id number] Acct: [id number] Name: ITZEL ALONZO Rep #:[id number] : 1950 75 From: Anthony Kiser PCP: Carlene Haji EMPLOYMENT SERVICES DIRECTOR-C Status:ADM IN Location: [place] 482420-1 Reason for Visit Chief Complaint: Fall, R [...] 07/05/25 10:37 SB (Rec: 07/05/25 10:37 SB [id number]) Nutrition Malnutrition Evidence of Yes Malnutrition Exists [...] (Auto) 72.3 H, Lymph % (Auto)18.5 L, Swift % (Auto) 6.9, Eos % (Auto) 1.6, [...] hip displaced intertrochanteric fracture Complain of pain 07/04 around the operative region. Patient has dementia [...] ? Requested for PT OT eval and socially responsible investment adviser to assist with discharge planning 3. Right sided lung cancer (suprahilar, unclear exact specific type) with associated hypercalcemia of malignancy with recent transition to NH system. Patient to resume care following discharge [...] is for patient to follow-up with the [facility] Hospital following discharge 12. Restless leg syndrome [...] (Auto) 72.3 H, Lymph % (Auto)18.5 L, Swift % (Auto) 6.9, Eos % (Auto) 1.6, [...] Malignancy can not be excluded. Reading Location: [facility] Lower Extremity CT 07/03/25 21:54 IMPRESSION: Acute, moderately comminuted and impacted right intertrochanteric femoral fracture. No aggressive osseous lesions. Reading Location: [facility] Hip X-Ray 07/04/25 10:00 IMPRESSION: Postsurgical changes for repair of right femoral fracture with no acute complications. Reading Location: [facility] Charges/Coding Visit Charges Inpatient E&M: 62308 Subs Hosp L2 07/06/25 1623 <Electronically signed by Anthony Salgado MD> Cosigner Signature (if applicable): CC: ~ Signed [facility] Work Phone: 1(150) 752-144008-12-2025 Progress note [facility] Medical Records Department [address] [place] [address] Progress Note - Hospitalist 07/06/25 1007 MR#: [id number] Acct: [id number] Name: ITZEL ALONZO Rep #:[id number] : 1950 75 From: Anthony Kiser PCP: LUIS MIGUEL HaroC Status:ADM IN Location: [facility] QD466-6 Reason for Visit Chief Complaint: Fall, R [...] 07/05/25 10:37 SB (Rec: 07/05/25 10:37 SB [id number]) Nutrition Malnutrition Evidence of Yes Malnutrition Exists [...] (Auto) 72.3 H, Lymph % (Auto)18.5 L, Swift % (Auto) 6.9, Eos % (Auto) 1.6, [...] ? Requested for PT OT eval and socially responsible investment adviser to assist with discharge planning 3. Right [...] is for patient to follow-up with the [facility] following discharge 12. Restless leg syndrome [...] (Auto) 72.3 H, Lymph % (Auto)18.5 L, Swift % (Auto) 6.9, Eos % (Auto) 1.6, [...] line. Malignancy cannot be excluded. Reading Location: [id number] Lower Extremity CT 07/03/25 21:54 IMPRESSION: Acute, moderately comminuted and impacted right intertrochanteric femoral fracture. No aggressive osseous lesions. Reading Location: [id number] Hip X-Ray 07/04/25 10:00 IMPRESSION: Postsurgical changes for repair of right femoral fracture with no acute complications. Reading Location: [id number] Charges/Coding Visit Charges Inpatient E&M: 17949 Subs Hosp L2 07/06/25 1623 Cosigner Signature (if applicable): CC: ~ Signed [facility]08-11-2025 Progress note Author Anthony Salgado [facility] Note Date/Time July 05, 2025 4: 45pm [facility] Medical Records Department [address] [place] [address] Progress Note - Hospitalist 07/05/25 1634 MR#: [id number] Acct: [id number] Name: ITZEL ALONZO Carlie Rep #:[id number] : 1950 75 From: Anthony Kiser PCP: Carlene Haji NP-C Status:ADM IN Location: [place] [address] Reason for Visit Chief Complaint: Fall, R [...] Intake and Output for Last 24 Hours 0807/04/25 07/05/25 23:59 23:59 23:59 Intake Total 2158.75 / 2158.75 846.25 / 846.25 Output Total 2150 / 2400 450 / 450 Balance 8.75 / -241.25 396.25 / 396.25 Medical Nutrition Assessment Dietitian: Malnutrition Criteria Met Start: 07/05/25 10:37 Freq: Status: Active Protocol: Document 07/05/25 10:37 SB (Rec: 07/05/25 10:37 SB [id number]) Nutrition Malnutrition Evidence of Yes Malnutrition Exists [...] 79.1 H, Lymph % (Auto) 13.4 L, Swift % (Auto) 5.5, Eos % (Auto) 1.1, [...] ? Requested for PT OT eval and socially responsible investment adviser to assist with discharge planning 3. Right sided lung cancer (suprahilar, unclear exact specific type) with associated hypercalcemia of malignancy with recent transition to NH system. Patient to resume care following discharge [...] is for patient to follow-up with the [facility] following discharge 12. Restless leg syndrome [...] 79.1 H, Lymph % (Auto) 13.4 L, Swift % (Auto) 5.5, Eos % (Auto) 1.1, [...] 232 H Charges/Coding Visit Charges Inpatient E&M: 81756 Subs Hosp L2 07/05/25 1645 <Electronically signed by Anthony Salgado MD> Cosigner Signature (if applicable): CC: ~ Signed [facility] Work Phone: 1(939) 695-542708-11-2025 Progress note [facility] Medical Records Department [address] [place] [address] Progress Note - Hospitalist 07/05/25 1634 MR#: [id number] Acct: [id number] Name: ITZEL ALONZO Rep #:[id number] : 1950 75 From: Anthony Kiser PCP: SID Haro Status:ADM IN [facility] Reason for Visit Chief Complaint: Fall, R [...] 07/05/25 10:37 SB (Rec: 07/05/25 10:37 SB [id number]) Nutrition Malnutrition Evidence of Yes Malnutrition Exists [...] 79.1 H, Lymph % (Auto) 13.4 L, Swift % (Auto) 5.5, Eos % (Auto) 1.1, [...] ? Requested for PT OT eval and socially responsible investment adviser to assist with discharge planning 3. Right sided lung cancer (suprahilar, unclear exact specific type) with associated hypercalcemia of malignancy with recent transition to NH system. Patient to resume care following discharge [...] is for patient to follow-up with the [facility] following discharge 12. Restless leg syndrome [...] 79.1 H, Lymph % (Auto) 13.4 L, Swift % (Auto) 5.5, Eos % (Auto) 1.1, [...] 232 H Charges/Coding Visit Charges Inpatient E&M: 22789 Subs Hosp L2 07/05/25 1645 Cosigner Signature (if applicable): CC: ~ Signed [facility]08-11-2025 Progress note Author Pily Rodriguez [facility] Note Date/Time July 05, 2025 1: 30pm [facility] Medical Records Department [address] [place] [address] Progress Note - Orthopedic 07/05/2538 MR#: [id number] Acct: [id number] Name: ITZEL ALONZO Rep #:[id number] : 1950 75 From: Pily BERRIOS PCP: LUIS MIGUEL HaroC Status:ADM IN Location: [facility]3 JG426-0 Subjective Subjective Patient is 75-year-old male postop [...] 79.1 H, Lymph % (Auto) 13.4 L, Swift % (Auto) 5.5, Eos % (Auto) 1.1, [...] fracture with no acute complications. Reading Location: [facility] Physical Exam Narrative Patient resting comfortably in [...] monitor, and likely self resolve. 5. H/H 7.5/.1: post operavtive anemia secondary to acute blood [...] Cosigner Signature (if applicable): cc: ~* Signed [facility] Work Phone: 1(296) 922-647208-11-2025 Progress note [facility] Medical Records Department [address] [place] [address] Progress Note - Orthopedic 07/05/25 0938 MR#: [id number] Acct: [id number] Name: ITZEL ALONZO Rep #:[id number] : 1950 75 From: Pily BERRIOS PCP: LUIS MIGUEL HaroC Status:ADM IN Location: [facility]3 TJ995-9 Subjective Subjective Patient is 75-year-old male postop [...] 79.1 H, Lymph % (Auto) 13.4 L, Swift % (Auto) 5.5, Eos % (Auto) 1.1, [...] fracture with no acute complications. Reading Location: [facility] Physical Exam Narrative Patient resting comfortably in [...] Cosigner Signature (if applicable): cc: ~* Signed [facility]08-11-2025 Consult note Author Kayden Merino [facility] Note Date/Time July 05, 2025 6: 11am [facility] Medical Records Department [address] [place] [address] Anesthesia Postop Eval II 07/05/25 0611 MR#: [id number] Acct: [id number] Name: ITZEL ALONZO Rep #:[id number] : 1950 75 From: Kayden Merino MD PCP: Carlene Haji EMPLOYMENT SERVICES DIRECTOROnurC Status:ADM IN Y Race: AA Location: [address] Anesthesia Postop Eval I Sum Postop Eval Completion status Anesthesia document: Postop Eval 1 completed: Yes Anesthesia Postop Eval I Summary Anesthesia Postop Eval I Summary: Anesthesia Postop Eval I: Assessment Summary Airway patent Yes 07/04/25 11:46 ADJUNCT PHYSICS INSTRUCTOR.JCLI Spontaneous unlabored Yes 07/04/25 11:46 ADJUNCT PHYSICS INSTRUCTOR.JCLI respirations Mental status Awake 07/04/25 11:46 ADJUNCT PHYSICS INSTRUCTOR.JCLI nausea No 07/04/25 11:46 ADJUNCT PHYSICS INSTRUCTOR.JCLI Vomiting No 07/04/25 11:46 ADJUNCT PHYSICS INSTRUCTOR.JCLI Anesthesia Postop Eval I: Fluid Summary Crystalloid volume administer 500 07/04/25 11:46 ADJUNCT PHYSICS INSTRUCTOR.JCLI (ml) Colloids volume administered ( ml) Blood Product volume administered (ml) Total IV fluid infused 500 07/04/25 11:46 ADJUNCT PHYSICS INSTRUCTOR.JCLI Anesthesia Postop Eval I: Summary Notes Anesthesia Complication No 07/04/25 11:46 ADJUNCT PHYSICS INSTRUCTOR.JCLI Anesthesia Complication Comment: Post-operative progress note Anesthesia: Postop Eval II Evaluation Mental status: Awake Pain Level: 0 nausea: No Vomiting: No 07/05/25610 <Electronically signed by Kayden Merino MD > Date _ Kayden Merino MD Cosigner Signature: Date CC: ~ Signed [facility] Work Phone: 1(608) 496-151908-11-2025 Consult note [facility] Medical Records Department [address] [place] [address] Anesthesia Postop Eval II 07/05/25 0611 MR#: [id number] Acct: [id number] Name: ITZEL ALONZO Rep #:[id number] : 1950 75 From: Kayden Merino MD PCP: SID Haro Status:ADM IN Y Race: AA Location: [place] [address] Anesthesia Postop Eval I Sum Postop Eval Completion status Anesthesia document: Postop Eval 1 completed: Yes Anesthesia Postop Eval I Summary Anesthesia Postop Eval I Summary: Anesthesia Postop Eval I: Assessment Summary Airway patent Yes 07/04/25 11:46 ADJUNCT PHYSICS INSTRUCTOR.JCLI Spontaneous unlabored Yes 07/04/25 11:46 ADJUNCT PHYSICS INSTRUCTOR.JCLI respirations Mental status Awake 07/04/25 11:46 ADJUNCT PHYSICS INSTRUCTOR.JCLI nausea No 07/04/25 11:46 ADJUNCT PHYSICS INSTRUCTOR.JCLI Vomiting No 07/04/25 11:46 ADJUNCT PHYSICS INSTRUCTOR.JCLI Anesthesia Postop Eval I: Fluid Summary Crystalloid volume administer 500 07/04/25 11:46 ADJUNCT PHYSICS INSTRUCTOR.JCLI (ml) Colloids volume administered ( ml) Blood Product volume administered (ml) Total IV fluid infused 500 07/04/25 11:46 ADJUNCT PHYSICS INSTRUCTOR.JCLI Anesthesia Postop Eval I: Summary Notes Anesthesia Complication No 07/04/25 11:46 ADJUNCT PHYSICS INSTRUCTOR.JCLI Anesthesia Complication Comment: Post-operative progress note Anesthesia: Postop Eval II Evaluation Mental status: Awake Pain Level: 0 nausea: No Vomiting: No 07/05/25610 > Date _ Kayden Merino MD Cosigner Signature: Date CC: ~ Signed [facility]08-10-2025 Consult note Author Kye Luu [facility] Note Date/Time July 04, 2025 11 :46am [facility] Medical Records Department [address] [place] [address] Anesthesia Postop Eval I 07/04/25 1146 MR#: [id number] Acct: [id number] Name: ITZEL ALONZO Rep #:[id number] : 1950 75 From: Kye Sexton PCP: LUIS MIGUEL HaroC Status:ADM IN Y Race: AA Location: [place] [address] Anesthesia: Postop Eval I Current Vital Signs [...] Yes 07/04/25 1146 <Electronically signed by Kye Click C RNA> Date _ Kye Luu ADJUNCT PHYSICS INSTRUCTOR Cosigner Signature: Date CC: ~ Signed [facility] Work Phone: 1(292) 477-686708-10-2025 Consult note Author Nuno Campbell [facility] Note Date/Time July 04, 2025 10 :09[facility] Medical Records Department [address] [place] [address] Consultation - Orthopedics 07/04/25 0959 MR#: [id number] Acct: [id number] Name: ITZEL ALONZO Rep #:[id number] : 1950 75 From: Nuno Kiser PCP: SID Haro Status:ADM IN Location: [place] [address] HPI Consult Data Date of Consult: 07/04/25 [...] consulted. Patient admitted to the medical service. [facility] Medical History CKD (chronic kidney disease), stage [...] budesonide-formoterol HFA 80 2 puff inhalation BID ART CONSULTANT D 05/09/21 07/02/25 History mcg-4.5 mcg/actuation aerosol [...] Clarity Clear, Urine pH 6.0, Ur Specific [place] 1.010, Urine Protein 100 H, Urine Glucose [...] 90.1 H, Lymph % (Auto) 6.3 L, Swift % (Auto) 2.8, Eos % (Auto) 0.1, Baso % (Auto) 0.2, Absolute Neuts (auto) 11.4 H, Absolute Lymphs (auto) 0.80 L, Nucleated RBC % 0, Differential Comment SCANNED, RBC Morphology RARE, Hypochromasia 1+, Anisocytosis 1+, Microcytosis 1+, Holden Cells RARE, PT 15.5 H, INR 1.2, [...] 84.5 H, Lymph % (Auto) 10.7 L, Swift % (Auto) 4.1, Eos % (Auto) 0.2, [...] Malignancy can not be excluded. Reading Location: [facility] Lower Extremity CT 07/03/25 21:54 IMPRESSION: Acute, moderately comminuted and impacted right intertrochanteric femoral fracture. No aggressive osseous lesions. Reading Location: [facility] Assessment & Plan Assessment/Plan (1) Closed intertrochanteric [...] Signature (if applicable): CC: SID Haji~ Signed [facility] Work Phone: 1(679) 546-412908-10-2025 Radiology Diagnostic study note [facility] Imaging Services [address] [place], [place] [id number] Hip Min 2 Views (Portable) MR#: [id number] Acct: [id number] Name: ITZEL ALONZO Rep #: [id number] : 1950 M 75 From: Neymar Pedroza MD PCP: SID Haro Status: ADM IN Study:Hip Min 2 Views (Portable) Date of Exam : 07/04/25 Exam# [id number] Ordering Dr: Taylor Campblel MD PROCEDURE: HIP MIN 2 VIEWS (PORTABLE) [...] fracture with no acute complications. Reading Location: [facility] CC: SID Haji; Dr. Nuno Campbell MD ~ Police Investigator: Signed [facility]08-10-2025 Consult note [facility] Medical Records Department [address] [place] [address] Anesthesia Postop Eval I 07/04/25 1146 MR#: [id number] Acct: [id number] Name: ITZEL ALONZO Rep #:[id number] : 1950 75 From: Kye Sexton PCP: Carlene Haji NP-C Status:ADM IN Y Race: AA Location: [place] [address] Anesthesia: Postop Eval I Current Vital Signs [...] Yes 07/04/25 1146 RNA> Date _ Kye Sunigner Signature: Date CC: ~ Signed [facility]08-10-2025 Procedure note [facility] Medical Records Department [address] [place] [address] Operative Report 07/04/25 1129 MR#: [id number] Acct: [id number] Name: ITZEL ALONZO Rep #:[id number] : 1950 75 From: Nuno Kiser PCP: Carlene Haji EMPLOYMENT SERVICES DIRECTOR-C Status:ADM IN Location: [place] [address] Problems Associated Problem List Diagnoses (1) Closed intertrochanteric fracture of right hip: Operative Report (Standard) Operative Information Date of Procedure: 07/04/25 Pre-Operative Diagnosis: Right hip intertrochanteric fracture Post-Operative Diagnosis: Same Surgery/Procedure Performed: Open reduction internal fixation right hip, long gamma nail delinquency prevention officer: Yes Lumber Stacker Driver: Silvia Butler Tasks completed by program assistant: Closing and Implanting device Additional dietary assistant?: No Type of Anesthesia: Spinal RN Documented [...] nail fixation, locked Surgeon: Dr. Nuno Campbell Bag End Sewer: Silvia Butler PA-C Anesthesia: spinal Medications: Ancef [...] lock screw was 42.5. X-rays taken throughout. patient services assistant, physician dietary assistant, was utilized throughout the entire procedure. They were vital to the procedure from beginning to end. Theyhelp with patient transfer, patient padding and positioning, fracture reduction,maintenance of fracture reduction, internal fixation of implants, w ound closure,bandage application, patient transfer. Without neurosurgical physician assistant, surgical timewould have been significantly increased and surgical outcome couldhave been less optimal. Procedure: Patient was taken to the operating room. Placed under a general anesthetic and transferred to the operating table with the help of the dietary assistant. With the help of the dietary assistant patient wasprepped and padded for surgery. Left foot was well-padded and placed in the traction boot. Right lower extremity was abducted and flexed out of harm's way. JACQUELINE hose and SCDs utilized. Fluoroscopy wasbrought in. With the help of the dietary assistant and manipulation of the limb, reduction was [...] of this with the help of the dietary assistant holding the soft tissue protector appropriately. Long reaming was done starting and reaming up to 12.5 mm distally. Was then with the help of the dietary assistant . once reaming was done we placed the short 125? angle device over the guidepin. This was easily introduced. Guide ailssa removed. Outrigger device was utilized to position [...] Incisions were thoroughly irrigated. Closing by the dietary assistant with deep0 Vicryl, mid layer 0 Vicryl, inverted 2-0 Vicryl, skin nayla. Puncture wounds closed with inverted 2-0 Vicryl and nayla. Xeroform 4 x 4's ABD tape applied. Patient was awoken from their anesthetic, transferred back to theirown bed with the help of the dietary assistant and into recovery room in satisfactory condition. [...] SCD's VTE Pharm Prophylaxis ordered?: Yes 07/04/25 7685 Cosigner Signature (if applicable): CC: SID Haji; Dr. Johanne Evans MD; Dr. Nuno Campbell MD~ Signed [facility]08-10-2025 Consult note [facility] Medical Records Department [address] [place] [address] Consultation - Orthopedics 07/04/25 0959 MR#: [id number] Acct: [id number] Name: ITZEL ALONZO Rep #:[id number] : 1950 75 From: Nuno Kiser PCP: SID Haro Status:ADM IN Location: [facility] CU813-3 HPI Consult Data Date of Consult: 07/04/25 [...] consulted. Patient admitted to the medical service. [facility] Medical History CKD (chronic kidney disease), stage [...] budesonide-formoterol HFA 80 2 puff inhalation BID ART CONSULTANT D 05/09/21 07/02/25 History mcg-4.5 mcg/actuation aerosol [...] Clarity Clear, Urine pH 6.0, Ur Specific [place] 1.010, Urine Protein 100 H, Urine Glucose [...] 90.1 H, Lymph % (Auto) 6.3 L, Swift % (Auto) 2.8, Eos % (Auto) 0.1, [...] 84.5 H, Lymph % (Auto) 10.7 L, Swift % (Auto) 4.1, Eos % (Auto) 0.2, [...] line. Malignancy cannot be excluded. Reading Location: [id number] Lower Extremity CT 07/03/25 21:54 IMPRESSION: Acute, moderately comminuted and impacted right intertrochanteric femoral fracture. No aggressive osseous lesions. Reading Location: [id number] Assessment & Plan Assessment/Plan (1) Closed intertrochanteric [...] Signature (if applicable): CC: SID Haji~ Signed [facility]08-10-2025 Consult note Author Kayden Merino [facility] Note Date/Time July 04, 2025 7: 42am [facility] Medical Records Department [address] [place] [address] Pre-Anesthesia Evaluation 07/04/25 0742 MR#: [id number] Acct: [id number] Name: ITZEL ALONZO Rep #:[id number] : 1950 75 From: Kayden Merino MD PCP: Carlene Haji, EMPLOYMENT SERVICES DIRECTOR-C Status:ADM IN Y Race: AA Location: [facility] MS0 - ASA Classification* ASA Classification ASA Classification: 3 [...] hip fracure Anesthesia History Anesthesia History - ground transportation operator: Anesthesia History - ground transportation operator Hx Hospitalization Any Problems With Anesthesia Yes: [...] take am of surgery PONV PONV - ground transportation operator: PONV - ground transportation operator Female HX of Motion Sickness HX of N/V After Surgery Non-Smoker Duration of Surgery greater than 60 minutes Number of Risk Factors PONV Score Height & Weight Height & Weight: Anesthesia: Height & Weight Height 6 ft 1 in 07/04/25 00:20 Weight: 58.1 kg 07/04/25 05:45 Body Mass Index (BMI) 16.9 07/04/25 05:45 Respiratory Assessment Respiratory Assessment - ground transportation operator: Respiratory Tract Infection Hx - ground transportation operator Hx Respiratory Tract Infection No 07/04/25 00:46 STOP Sleep Apnea STOP Sleep Apnea - ground transportation operator: STOP Sleep Apnea - ground transportation operator Hx Hypertension Yes 07/04/25 07:08 Hx Sleep [...] Tobacco Use History Tobacco Use History - ground transportation operator: Tobacco Use History - ground transportation operator Tobacco Use Cigarettes 04/23/25 21:27 Smoking Status Current some day smoker 07/04/25 00:20 Hx Tobacco Use Yes 07/04/25 00:20 Years Smoking Packs Smoked per Day Smoking Cessation Date was within the last 15 years Hx Smoking Cessation Date Hx Smoking Cessation No 07/04/25 00:20 Counseling Hematologic Medial History Hematologic Hx - ground transportation operator: Hematologic Medical Hx - blueprint blocker Hx of Blood Transfusion Yes 07/04/25 00:20 Hx of Transfusion in last 3 Yes 07/04/25 00:20 Months Date of Last Transfusion (if 06/1807/04/25 00:20 within last 3 months) Ever experience any problems No 07/04/25 00:20 with transfusion(s)? Specify any problems Hx of Preganancy in last 3 N/A 07/04/25 00:20 Months Nurse Filling Out Transfusion [id number] 07/04/25 00:20 & Questions: Date: 07/04/25 07/04/25 00:20 Time: 00:34 07/04/25 00:20 Patient unable to answer at this time (ie. confused, unrespo /Reproduction History /Reproductive History - ground transportation operator: /Reproductive Hx- ground transportation operator Hx Now No 07/04/25 00:46 Gestational Age [...] 10 Mg Tablet PO QHS [facility] Protocol Atorvastatin Calcium 80 mg 07/04/25 22:00 Atorvastatin Calcium 80 Mg Tablet PO QHS [facility] Budesonide 0.5 mg 07/03/25 23:57 07/04/25 07:34 Budesonide Respules 0.5 Mg/2 Ml Ampul.Neb. INHALATION 0.5 mg BID.RT [facility] Administration Calamine/Phenol 1 applic 07/04/25 10:00 Menthol/Lanolin/Calamine/Znox 113 Gm Tube TOPICAL 4X/DAY [facility] Protocol Calcium Carbonate 1,500 mg 07/04/25 10:00 Calcium (Elemental) 500 Mg Tablet PO DAILY [facility] Cyclobenzaprine HCl 10 mg 07/04/25 07:37 Cyclobenzaprine Hcl 10 Mg Tablet PO TID PRN muscle spasms Gabapentin 300 mg 07/04/25 14:00 Gabapentin 300 Mg Capsule PO TID [facility] Glucagon 1 mg 07/03/25 23:57 Glucagon 1 [...] 07/04/25 02:09 IV 07/04/25 13:16 75 mls/hr .[id number] [facility] Administration Dextrose 250 mls @ 0 mls/hr 07/03/25 23:57 Dextrose 10%-Water IV .Q0M PRN HYPOGLYCEMIA Protocol As Directed Sodium Chloride 250 mls @ 15 mls/hr 07/04/25 00:53 IV .[id number] PRN Saline Flush Sodium Chloride 250 mls @ 15 mls/hr 07/04/25 00:53 IV .[id number] PRN Additional IVPB Infusion Insulin Human Lispro 0 unit 07/04/25 07:00 07/04/25 06:56 Insulin Lispro 100 Unit/Ml Insuln.Pen SC Not Given ACHS [facility] Protocol Magnesium Hydroxide 5 ml 07/04/25 07:37 [...] 14 Mg Patch TD DAILY [facility] Non-Formulary Medication 90 mcg 07/04/25 07:45 Albuterol INHALATION Q4H PRN [facility] Non-Formulary Medication 325 mg 07/04/25 07:45 Ferrous Sulfate [Feosol] PO .every other day [facility] Non-Formulary Medication 1 mg 07/04/25 22:00 Ropinirole PO QHS [facility] Non-Formulary Medication 1 drp 07/04/25 22:00 Cyclopentolate LEFT EYE QHS [facility] Non-Formulary Medication 1 drp 07/04/25 10:00 Polyvinyl Alcohol-Povidone OPHTHALMIC 4X/DAY [facility] Non-Formulary Medication 1 drp 07/04/25 07:45 Prednisolone [...] Ml Syringe IV UD PRN [facility]INE [facility] Medical History CKD (chronic kidney disease), stage [...] budesonide-formoterol HFA 80 2 puff inhalation BID ART CONSULTANT D 05/09/21 07/02/25 History mcg-4.5 mcg/actuation aerosol [...] MD Cosigner Signature: Date CC: ~ Signed [facility] Work Phone: 1(802) 626-369008-10-2025 Progress note Author Uche Felix [facility] Note Date/Time July 04, 2025 7: 37am [facility] Medical Records Department [address] [place] [address] Progress Note - Hospitalist 07/04/25720 MR#: [id number] Acct: [id number] Name: ITZEL ALONZO Rep #:[id number] : 1950 75 From: Uche Felix MD PCP: SID Haro Status:ADM IN [id number] Reason for Visit Chief Complaint: Fall, R [...] Clarity Clear, Urine pH 6.0, Ur Specific [place] 1.010, Urine Protein 100 H, Urine Glucose [...] 90.1 H, Lymph % (Auto) 6.3 L, Swift % (Auto) 2.8, Eos % (Auto) 0.1, [...] 84.5 H, Lymph % (Auto) 10.7 L, Swift % (Auto) 4.1, Eos % (Auto) 0.2, [...] Malignancy can not be excluded. Reading Location: [facility] Lower Extremity CT 07/03/25 21:54 IMPRESSION: Acute, moderately comminuted and impacted right intertrochanteric femoral fracture. No aggressive osseous lesions. Reading Location: [facility] Physical Exam Narrative GENERAL: cooperative but frail [...] ? Requested for PT OT eval and socially responsible investment adviser to assist with discharge planning 3. Right [...] is for [facility] following [facility] 12. Restless leg syndrome [...] 50 Minutes Charges/Coding Visit Charges Inpatient E&M: 27184 Subs Hosp L3 07/04/25 0737 <Electronically signed by Uche Felix MD> Cosigner Signature (if applicable): CC: ~ Signed [facility] Work Phone: 1(964) 769-606008-10-2025 Consult note [facility] Medical Records Department [address] [place] [address] Pre-Anesthesia Evaluation 07/04/25 0742 MR#: [id number] Acct: [id number] Name: ITZEL ALONZO Rep #:[id number] : 1950 75 From: Kayden Merino MD PCP: SID Haro Status:ADM IN Y Race: AA Location: [place] [address] ASA Classification* ASA Classification ASA Classification: 3 [...] CBC WBC 12.7 K/mm3 (4.4-11.0) H 07/04/25 05: 5 RBC 3.69 M/mm3 (4.6-6.2) L 07/04/25 [...] hip fracure Anesthesia History Anesthesia History - ground transportation operator: Anesthesia History - ground transportation operator Hx Hospitalization Any Problems With Anesthesia Yes: [...] take am of surgery PONV PONV - ground transportation operator: PONV - ground transportation operator Female HX of Motion Sickness HX of N/V After Surgery Non-Smoker Duration of Surgery greater than 60 minutes Number of Risk Factors PONV Score Height & Weight Height & Weight: Anesthesia: Height & Weight Height 6 ft 1 in 07/04/25 00:20 Weight: 58.1 kg 07/04/25 05:45 Body Mass Index (BMI) 16.9 07/04/25 05:45 Respiratory Assessment Respiratory Assessment - ground transportation operator: Respiratory Tract Infection Hx - ground transportation operator Hx Respiratory Tract Infection No 07/04/25 00:46 STOP Sleep Apnea STOP Sleep Apnea - ground transportation operator: STOP Sleep Apnea - ground transportation operator Hx Hypertension Yes 07/04/25 07:08 Hx Sleep [...] Tobacco Use History Tobacco Use History - ground transportation operator: Tobacco Use History - ground transportation operator Tobacco Use Cigarettes 04/23/25 21:27 Smoking Status Current some day smoker 07/04/25 00:20 Hx Tobacco Use Yes 07/04/25 00:20 Years Smoking Packs Smoked per Day Smoking Cessation Date was within the last 15 years Hx Smoking Cessation Date Hx Smoking Cessation No 07/04/25 00:20 Counseling Hematologic Medial History Hematologic Hx - ground transportation operator: Hematologic Medical Hx - blueprint blocker Hx of Blood Transfusion Yes 07/04/25 00:20 [...] confused, unrespo /Reproduction History /Reproductive History - ground transportation operator: /Reproductive Hx- ground transportation operator Hx Now No 07/04/25 00:46 Gestational Age [...] 10 Mg Tablet PO QHS [facility] Protocol Atorvastatin Calcium 80 mg 07/04/25 22:00 Atorvastatin Calcium 80 Mg Tablet PO QHS [facility] Budesonide 0.5 mg 07/03/25 23:57 07/04/25 07:34 Budesonide Respules 0.5 Mg/2 Ml Ampul.Neb. INHALATION 0.5 mg BID.RT [facility] Administration Calamine/Phenol 1 applic 07/04/25 10:00 Menthol/Lanolin/Calamine/Znox 113 Gm Tube TOPICAL 4X/DAY [facility] Protocol Calcium Carbonate 1,500 mg 07/04/25 10:00 Calcium (Elemental) 500 Mg Tablet PO DAILY [facility] Cyclobenzaprine HCl 10 mg 07/04/25 07:37 Cyclobenzaprine [...] 07/04/25 02:09 IV 07/04/25 13:16 75 mls/hr .[id number] [facility] Administration Dextrose 250 mls @ 0 mls/hr 07/03/25 23:57 Dextrose 10%-Water IV .Q0M PRN HYPOGLYCEMIA Protocol As Directed Sodium Chloride 250 mls @ 15 mls/hr 07/04/25 00:53 IV .[id number] PRN Saline Flush Sodium Chloride 250 mls @ 15 mls/hr 07/04/25 00:53 IV .[id number] PRN Additional IVPB Infusion Insulin Human Lispro [...] 22:00 Cyclopentolate LEFT EYE QHS [facility] Non-Formulary Medication 1 drp 07/04/25 10:00 Polyvinyl Alcohol-Povidone OPHTHALMIC 4X/DAY [facility] Non-Formulary Medication 1 drp 07/04/25 07:45 Prednisolone Acetate LEFT EYE Q6H [facility] Ondansetron HCl 4 mg 07/03/25 23:57 Ondansetron 4 Mg/2 Ml Vial IV Q8H PRN PRN NAUSEA/VOMITING Oxycodone HCl 5 - 10 mg 07/03/25 23:57 Oxycodone 5 Mg Tablet PO Q4H PRN PRN Pain Score 4-10 Pantoprazole Sodium 40 mg 07/04/25 10:00 Pantoprazole Sodium 40 Mg Tablet PO DAILY [facility] Polyethylene Glycol 17 gm 07/04/25 10:00 Polyethylene Glycol 3350 17 Gm Packet PO DAILY [facility] Senna/Docusate Sodium 2 tablet 07/04/25 10:00 Senna/Docusate Sodium 1 Tablet PO BID [facility] Sodium Chloride 10 - 40 ml 07/04/25 [...] budesonide-formoterol HFA 80 2 puff inhalation BID ART CONSULTANT D 05/09/21 07/02/25 History mcg-4.5 mcg/actuation aerosol [...] MD Cosigner Signature: Date CC: ~ Signed [facility]08-10-2025 Progress note [facility] Medical Records Department [address] [place] [address] Progress Note - Hospitalist 07/04/25 0721 MR#: [id number] Acct: [id number] Name: ITZEL ALONZO Rep #:[id number] : 1950 75 From: Uche Felix MD PCP: Carlene Haji, EMPLOYMENT SERVICES DIRECTOR-C Status:ADM IN Location: [facility] [id number] Reason for Visit Chief Complaint: Fall, R [...] Clarity Clear, Urine pH 6.0, Ur Specific [place] 1.010, Urine Protein 100 H, Urine Glucose [...] 90.1 H, Lymph % (Auto) 6.3 L, Swift % (Auto) 2.8, Eos % (Auto) 0.1, Baso % (Auto)0.2, Absolute Neuts (auto) 11.4 H, Absolute Lymphs (auto) 0.80 L, Nucleated RBC % 0, Differential Comment SCANNED, RBC Morphology RARE, Hypochromasia 1+, Anisocytosis 1+, Microcytosis 1+, Holden Cells RARE, PT 15.5 H, INR 1.2, [...] 84.5 H, Lymph % (Auto) 10.7 L, Swift % (Auto) 4.1, Eos % (Auto) 0.2, [...] line. Malignancy cannot be excluded. Reading Location: [facility] Lower Extremity CT 07/03/25 21:54 IMPRESSION: Acute, moderately comminuted and impacted right intertrochanteric femoral fracture. No aggressive osseous lesions. Reading Location: [facility] Physical Exam Narrative GENERAL: cooperative but frail [...] ? Requested for PT OT eval and socially responsible investment adviser to assist with discharge planning 3. Right sided lung cancer (suprahilar, unclear exact specific type) with associated hypercalcemia of malignancy with recent transition to [facility]. Patient to resume care following discharge [...] is for patient to [facility] with [facility] following discharge 12. Restless leg syndrome [...] 50 Minutes Charges/Coding Visit Charges Inpatient E&M: 09000 [facility] Hosp 07/04/25 0737 Cosigner Signature (if applicable): CC: ~ Signed [facility]08-10-2025 Discharge summary Author Steven Tejeda [facility] Note Date/Time July 04, 2025 1: 09am [facility] Medical Records Department [address] [place] [address] Emergency Department Summary 07/03/25 MR#: [id number] Acct: [id number] Name: ITZEL ALONZO Rep #:[id number] : 1950 75 From: Steven Higgins PCP: Carlene N Adithya, EMPLOYMENT SERVICES DIRECTOR-C Status:ADM IN Location: MS3 VV745-3 HPI History of Present Illness HPI Narrative: [...] for Parasthesia, Weakness or Loss of Funtion [facility] Medical History (Updated 07/03/25 @ 23:18 [...] budesonide-formoterol HFA 80 2 puff inhalation BID ART CONSULTANT D 05/09/21 Unknown History mcg-4.5 mcg/actuation aerosol [...] 90.1 H Lymph % (Auto) 6.3 L [place] % (Auto) 2.8 Eos % (Auto) 0.1 [...] Clarity Clear Urine pH 6.0 Ur Specific [place] 1.010 Urine Protein 100 H Urine Glucose [...] Malignancy can not be excluded. Reading Location: [facility] Lower Extremity CT 07/03/25 21:54 IMPRESSION: Acute, moderately comminuted and impacted right intertrochanteric femoral fracture. No aggressive osseous lesions. Reading Location: [facility] X-rays of the right hip were obtained. [...] shows sinustachycardia with a rate of 112. AR interval was normal at 158 ms. QRS intervalwas normal at 76 ms. QTc interval is normal at 455 ms. Lyons was normal. Thereare nonspecific ST-T wave changes noted. There are no acute abnormalities noted. Prior EKG tracings: available for review Prior: Unchanged (05/11/2025) Management Discussion w/another healthcare provider: Hospitalist and Master Baker Treatment and Re-Evaluation Narrative: Patient was given [...] lung, Fall Disposition Disposition: Acute Care Hospital [facility] Discharge Date/Time: 07/03/25 23:37 What to do if you have Problems For any increased pain, shortness of breath, bleeding, nausea or vomiting, chestpain, or any unexpected problems, contact your Primary Care Provider. Call [facility] ([phone]) or report to the closest Emergency Room. Call 911 if necessary. 07/04/25 0109 <Electronically signed by Steven Tejeda DO> Cosigner Signature (if applicable): CC: EMPLOYMENT SERVICES DIRECTOR-René Haji ~ Signed [facility] Work Phone: [phone] History and physical note Author Johanne Evans [facility] Note Date/Time July 03, 2025 11: 21pm [facility] Medical Records Department [address] [place] [address] H&P Exam - Hospitalist 07/03/252236 MR#: [id number] Acct: [id number] Name: ITZEL ALONZO Rep #:[id number] : 1950 75 From: Johanne Evans MD PCP: Carlene N Adithya, EMPLOYMENT SERVICES DIRECTOR-C Status:ADM IN Location: [facility] CU048-1 HPI - General General Date of Admission: [...] COPD, [facility]/25 following largeright-sided lung cancer wit suspected postobstructive pneumonia with acute metabolic encephalopathy suspected secondary to hypercalcemia of malignancy in addition to acute on chronic anemia with suspected upper GI bleed for further evaluation who now presents to the [facility] ED on 07/03/2025 with onset of right [...] osseous lesion would plan to admit to [facility] and evaluate for repair of hip fracture. 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 Malignancy can not be excluded. Reading Location: [facility] Lower Extremity CT 07/03/25 21:54 IMPRESSION: Acute, moderately comminuted and impacted right intertrochanteric femoral fracture. No aggressive osseous lesions. Reading Location: [facility] Assessment & Plan Assessment/Plan (1) Closed intertrochanteric fracture of right hip: (2) Fall: PLAN: Plan The patient is a 75 y/o M w/ PMHx: CKD stage II per GFR trending, RLS, Cirrhosisassociated with hepatitis unclear specific type, Diabetes mellitus type II with chronic neuropathy, Anxiety and Depression, GERD, Hx CVA, Chronic anemia, Formertobacco use, COPD, [facility] 05/[facility]/25 following largeright-sided lung cancer wit suspected postobstructive pneumonia with acute metabolic encephalopathy suspected secondary to hypercalcemia of malignancy in addition to acute on chronic anemia with suspected upper GI bleed for further evaluation who now presents to the [facility] ED on 07/03/2025 with onset of right [...] [facility] evaluation: Following with [facility]ology, from discussion with patient and significant [...] 16 minutes. Charges/Coding Visit Charges Inpatient E&M: 31213 Init Hosp L3 Procedures Hospitalists Procedures: 07959 Advncd Care Plan 30 Min 07/03/25 2321 <Electronically signed by Johanne Evans MD> Cosigner Signature (if applicable): CC: SID Haji; Dr. Johanne Evans MD~ Signed [facility] Work Phone: 1(212) 762-401808-10-2025 Discharge summary [facility] Medical Records Department [address] [place] [address] Emergency Department Summary 07/03/25 MR#: [id number] Acct: [id number] Name: ITZEL ALONZO Rep #:[id number] : 1950 75 From: Steven Higgins PCP: SID Haro Status:ADM IN Location: MS3 DI036-6 HPI History of Present Illness HPI Narrative: [...] for Parasthesia, Weakness or Loss of Funtion [facility] Medical History (Updated 07/03/25 @ 23:18 [...] budesonide-formoterol HFA 80 2 puff inhalation BID ART CONSULTANT D 05/09/21 Unknown History mcg-4.5 mcg/actuation aerosol [...] 90.1 H Lymph % (Auto) 6.3 L Swift % (Auto) 2.8 Eos % (Auto) 0.1 [...] Clarity Clear Urine pH 6.0 Ur Specific [place] 1.010 Urine Protein 100 H Urine Glucose [...] line. Malignancy cannot be excluded. Reading Location: [facility] Lower Extremity CT 07/03/25 21:54 IMPRESSION: Acute, moderately comminuted and impacted right intertrochanteric femoral fracture. No aggressive osseous lesions. Reading Location: [facility] X-rays of the right hip were obtained. [...] interpretation, shows sinustachycardia with a rate of112. AR interval was normal at 158 ms. QRS intervalwas normal at 76 ms. QTc interval is normal at 455 ms. Lyons was normal. Thereare nonspecific ST-T wave changes noted. There are no acute abnormalities noted. Prior EKG tracings: available for review Prior: Unchanged (05/11/2025) Management Discussion w/another healthcare provider: Hospitalist and Master Baker Treatment and Re-Evaluation Narrative: Patient was given [...] lung, Fall Disposition Disposition: Acute Care Hospital [facility] Discharge Date/Time: 07/03/25 23:37 What to do if you have Problems For any increased pain, shortness of breath, bleeding, nausea or vomiting, chestpain, or any unexpected problems, contact your Primary Care Provider. Call [facility] ([phone]) or report tothe closest Emergency Room. Call 911 if necessary. 07/04/25 0109 Cosigner Signature (if applicable): CC: EMPLOYMENT SERVICES DIRECTOR-C Carlene Haji ~ Signed [facility]08-09-2025 History and physical note [facility] Medical Records Department [address] [place] [address] H&P Exam - Hospitalist 07/03/252236 MR#: [id number] Acct: [id number] Name: ITZEL ALONZO Rep #:[id number] : 1950 75 From: Johanne Evans MD PCP: SID Haro Status:ADM IN Location: [facility] HY540-5 HPI - General General Date of Admission: [...] COPD, [facility] 05/13/25 following largeright-sided lung cancer wit suspected postobstructive pneumonia with acute metabolic encephalopathy suspected secondary to hypercalcemia of malignancy in addition to acute on chronic anemia with suspected upper GI bleed for further evaluation who now presents to the [facility] ED on 07/03/2025 with onset of right [...] osseous lesion would plan to admit to [facility] and evaluate for repair of hip fracture. [facility] Medical History (Updated 07/03/25 @ 23:18 by [...] budesonide-formoterol HFA 80 2 puff inhalation BID ART CONSULTANT D 05/09/21 Unknown History mcg-4.5 mcg/actuation aerosol [...] Clarity Clear, Urine pH 6.0, Ur Specific [place] 1.010, Urine Protein 100 H, Urine Glucose [...] 90.1 H, Lymph % (Auto) 6.3 L, Swift % (Auto) 2.8, Eos % (Auto) 0.1, Baso % (Auto)0.2, Absolute Neuts (auto) 11.4 H, Absolute Lymphs (auto) 0.80 L, Nucleated RBC % 0, PT 15.5 H, INR1.2, APTT 22.7 L Imaging Radiology Impression Hip/Pelvis X-Ray 07/03/25 20:20 IMPRESSION: Fracture of the right greater trochanter, extending into the intertrochanteric line. Malignancy cannot be excluded. Reading Location: [id number] Lower Extremity CT 07/03/25 21:54 IMPRESSION: Acute, moderately comminuted and impacted right intertrochanteric femoral fracture. No aggressive osseous lesions. Reading Location: [id number] Assessment & Plan Assessment/Plan (1) Closed intertrochanteric fracture of right hip: (2) Fall: PLAN: Plan The patient is a 75 y/o M w/ PMHx: CKD stage II per GFR trending, RLS, Cirrhosisassociated with hepatitis unclear specific type, Diabetes mellitus type II with chronic neuropathy, Anxiety and Depression, GERD, Hx CVA, Chronic anemia, Formertobacco use, COPD, [facility]25 following largeright-sided lung cancer wit suspected postobstructive pneumonia with acute metabolic encephalopathy suspected secondary to hypercalcemia of malignancy in addition to acute on chronic anemia with suspected upper GI bleed for further evaluation who now presents to the [facility] ED on 07/03/2025 with onset of right [...] [facility] during [facility] evaluation: [facility] with [facility], from discussion [...] 16 minutes. Charges/Coding Visit Charges Inpatient E&M: 28487 Init Hosp L3 Procedures Hospitalists Procedures: 33677 Advncd Care Plan 30 Min 07/03/25 2321 Cosigner Signature (if applicable): CC: SID Haji; Dr. Johanne Evans MD~ Signed [facility]08-09-2025 Radiology Diagnostic study note [facility] Imaging Services [address] [place], [place] [address] Extremity Lower without Contra MR#: [id number] Acct: [id number] Name: ITZEL ALONZO Rep #: [id number] : 1950 M 75 From: Bridget Abraham MD PCP: SID Haro Status: REG ER Study:Extremity Lower without Contra Date of Exam: 07/03/25 Exam# [id number] Ordering Dr: Taylor Campbell MD PROCEDURE: EXTREMITY [...] fracture. No aggressive osseous lesions. Reading Location: [facility] CC: EMPLOYMENT SERVICES DIRECTOR-C Carlene Haji; Dr. Nuno Campbell MD ~ Police Investigator: Signed [facility]08-09-2025 Radiology Diagnostic study note [facility] Imaging Services [address], [place] [id number] HIP, UNI W/ Pelvis 2-3 Views MR#: [id number] Acct: [id number] Name: ITZEL ALONZO Rep #: [id number] : 1950 M 75 From: Bridget Abraham MD PCP: SID Haro Status: REG ER Study:HIP, UNI W/ Pelvis 2-3 Views Date of Ex am: 07/03/25 Exam# [id number] Ordering Dr: Steven Tejeda DO PROCEDURE: HIP, [...] line. Malignancy cannot be excluded. Reading Location: [facility] CC: EMPLOYMENT SERVICES DIRECTORNissa Haji; Dr. Steven Tejeda DO ~ Police Investigator: Signed [facility]06-19-2025 Discharge summary [facility] Medical Records Department [address] [place] [address] Discharge Summary 05/13/25 1257 MR#: [id number] Acct: [id number] Name: ITZEL ALONZO Rep #:[id number] : 1950 74 From: Anthony Kiser PCP: SID Haro Status:ADM IN Location: [place] [address] Providers Date of Admission: 05/11/25 Primary Care [...] Patient is a 74-year-old male who presented [facility] ED on 05/11/2025 with worsening fatigue, weakness and confusion. 1. Large right-sided lung cancer with suspected postobstructive pneumonia ? Admit under inpatient status to PCU. Patient with known history of large right-sided lung cancer.Chest x-ray on admit with concern for acute postobstructive pneumonia in setting of lung cancer. Stable on room air at rest. Patient has established oncologist Dr. Lake, [facility]. I myself tried to contact through the transfer line 2 times but unsuccessful. Discussed with the director of casework services. NH oncologist wanted CT head before transfer. In [...] As plan is for transfer to the NH, will hold on GI consult for now. [...] code, verified Expected disposition: Likely transfer to NH Patient is being transferred to NH Hospital for further care and decision makingregarding [...] lung cancer, exact sampler/tissue type unclear. Follows NH oncologist, await path . Because of transportation [...] 75.7 H, Lymph % (Auto) 16.4 L, Swift % (Auto) 6.5, Eos % (Auto) 0.9, [...] mass. No acute intracranial process. Reading Location: [id number] D/C Instructions DC O2, CPAP, BIPAP Needs [...] constipation) Referrals / Follow Up: Carlene Haji, EMPLOYMENT SERVICES DIRECTOR-C [Primary Care Provider] - Disposition Discharge Orders: Discharge Patient (Routine); Ordered 05/12/25 Ordered By: Dr. Anthony Salgado Charges/Coding Visit Charges Inpatient E&M: 29070 Disch Hosp >30min 05/13/25 1400 Cosigner Signature (if applicable): CC: EMPLOYMENT SERVICES DIRECTOROnurC Carlene Haji; Dr. Anthony Salgado MD~ Signed [facility]06-19-2025 Consult note [facility] Medical Records Department [address] [place] [address] Pharmacokinetic/Renal -Consult 05/13/25 1107 MR#: [id number] Acct: [id number] Name: ITZEL ALONZO Rep #:[id number] : 1950 74 From: Gaye Garcia PCP: Carlene Haji, EMPLOYMENT SERVICES DIRECTOR-C Status:ADM IN Y Location: [place] [address] Consult Antibiotic Management Pharmacy has been consulted [...] 1108 Date _ Gaye Garcia 05/13/25 1357 > Corinneigner Signature (if applicable): Date Anthony Salgado MD CC: ~ Signed [facility]06-19-2025 Consult note Author Gaye Garcia [facility] Note Date/Time May 13, 2025 1:57 pm [facility] Medical Records Department [address] [place] [address] Pharmacokinetic/Renal -Consult 05/13/25 1107 MR#: [id number] Acct: [id number] Name: ITZEL ALONZO Carlie Rep #:[id number] : 1950 74 From: Gaye Garcia PCP: Carlene Haji EMPLOYMENT SERVICES DIRECTOR-C Status:ADM IN Location: [place] [address] Consult Antibiotic Management Pharmacy has been consulted [...] Date Anthony Salgado MD CC: ~ Signed [facility] Work Phone: 1(553) 953-276006-19-2025 [facility] Medical Records Department [address] [place] [address] Discharge Summary 05/13/25 1257 MR#: [id number] Acct: [id number] Name: ITZEL ALONZO Rep #: [id number] : 1950 74 From: Anthony Salgado MD PCP: SID Haro Status:ADM IN Location: [place] [id number] Providers Date of Admission: 05/11/25 Primary Care [...] Patient is a 74-year-old male who presented [facility] ED on 05/11/2025 with worsening fatigue, weakness and confusion. 1. Large right-sided lung cancer with suspected postobstructive pneumonia ??? Admit under inpatient status to PCU. Patient with known history of large right-sided lung cancer. Chest x-ray on admit with concern for acute postobstructive pneumonia in setting of lung cancer. Stable on room air at rest. Patient has established oncologist Dr. Lake, [facility]. I myself tried to contact through the transfer line 2 times but unsuccessful. Discussed with the director of casework services. NH oncologist wanted CT head before transfer. In [...] As plan is for transfer to the NH, will hold on GI consult for now. [...] code, verified Expected disposition: Likely transfer to NH Patient is being transferred to NH Hospital for further care and decision making [...] PO DAILY PRN c (more content not included)...[facility]06-18-2025 Progress note Author Anthony Salgado [facility] Note Date/Time May 12, 2025 5:22 pm [facility] Medical Records Department [address] [place] [address] Progress Note - Hospitalist 05/12/25934 MR#: [id number] Acct: [id number] Name: ITZEL ALONZO Rep #:[id number] : 1950 74 From: Anthony Kiser PCP: Carlene Haji, EMPLOYMENT SERVICES DIRECTOR-C Status:ADM IN Location: [place] [address] Reason for Visit Reason for Visit: Diagnoses [...] 74.3 H, Lymph % (Auto) 18.4 L, Swift % (Auto) 5.8, Eos % (Auto) 0.8, [...] end-stage honeycomb fibrosis. Reading Location: [facility] Physical Exam Narrative Seen and examined Patient has mild lethargic but wake up. Shortness of breath mild chest congestion. Diagnosed with a right suprahilar lung cancer, exact sampler/tissuetype unclear. Follows NH oncologist, await path . Because of transportation [...] Patient is a 74-year-old male who presented [facility] ED on 05/11/2025 with worsening fatigue, weakness and confusion. 1. Large right-sided lung cancer with suspected postobstructive pneumonia ? Admit under inpatient status to PCU. Patient with known history of large right-sided lung cancer. Chest x-ray on admit with concern for acute postobstructive pneumonia in setting of lung cancer. Stable on room air at rest. Patient has established oncologist Dr. Lake, [facility]. I myself tried to contact through the transfer line 2 times but unsuccessful. Discussed with the director of casework services. [facility] onc[facility] wanted CT head before transfer. [...] As plan is for transfer to the NH, will hold on GI consult for now. [...] code, verified Expected disposition: Likely transfer to NH Total time of the visit including total time spent in counseling or coordinationof care, (more than 50% of the total time, spent in obtaining medical information from nurses and other ancillary care providers ,explaining to the patient about labs, imaging, diagnosis and management of active complex medical conditions), effort to transfer [facility], discussion with director of casework services, review of labs and imaging is 35 [...] 278 H Charges/Coding Visit Charges Inpatient E&M: 36647 Subs Hosp L3 05/12/25 1722 <Electronically signed by Anthony Salgado MD> Cosigner Signature (if applicable): CC: ~ Signed [facility] Work Phone: 1(457) 650-576406-18-2025 Radiology Diagnostic study note [facility] Imaging Services [address] [place], [place] [id number] Brain/Head W/WO Contrast MR#: [id number] Acct: [id number] Name: ITZEL ALONZO Rep #: [id number] : 1950 M 74 From: Estella Coley MD PCP: Carlene Haji EMPLOYMENT SERVICES DIRECTOROnurC Status: ADM IN Study:Brain/Head W/WO Contrast Date of Exam: 05/12/25 Exam# [id number] Ordering Dr: Venessa Salgado MD PROCEDURE: BRAIN/HEAD [...] mass. No acute intracranial process. Reading Location: [id number] CC: SID Haji; Dr. Anthony Salgado MD ~ Police Investigator: Signed [facility]06-18-2025 Progress note [facility] Medical Records Department [address] [place] [address] Progress Note - Hospitalist 05/12/25 0935 MR#: [id number] Acct: [id number] Name: ITZEL ALONZO Rep #:[id number] : 1950 74 From: Anthony Kiser PCP: SID Haro Status:ADM IN Location: [facility] [id number] Reason for Visit Reason for Visit: Diagnoses Malignant neoplasm of unspecified part of unspecified bronchus or lung (05/11/25) Anemia, unspecified (05/11/25) Hypercalcemia (05/11/25) Objective Data Objective Data Vital Signs: Vital Signs Temp Pulse Resp BP Pulse Ox O2 Del Method 98.7 F 98 18 168/84 H 99 Room Air 06/18/25 03:22 05/12/25 06:45 05/12/25 06:45 05/12/25 03:22 [...] 74.3 H, Lymph % (Auto) 18.4 L, Swift % (Auto) 5.8, Eos % (Auto) 0.8, [...] end-stage honeycomb fibrosis. Reading Location: [facility] Physical Exam Narrative Seen and examined Patient has mild lethargic but wake up. Shortness of breath mild chest congestion. Diagnosed with aright suprahilar lung cancer, exact sampler/tissuetype unclear. [facility], await path . [...] Patient is a 74-year-old male who presented [facility] ED on 05/11/2025 with worsening fatigue, weakness and confusion. 1. Large right-sided lung cancer with suspected postobstructive pneumonia ? Admit under inpatient status to PCU. Patient with known history of large right-sided lung cancer.Chest x-ray on admit with concern for acute postobstructive pneumonia in setting of lung cancer. Stable on room air at rest. Patient has established oncologist Dr. Lake, [facility]. I myself tried to contact through the transfer line 2 times but unsuccessful. Discussed with the director of casework services. NH oncologist wanted CT head before transfer. In [...] As plan is for transfer to the NH, will hold on GI consult for now. [...] code, verified Expected disposition: Likely transfer to NH Total time of the visit including total time spent in counseling or coordinationof care, (more than50% of the total time, spent in obtaining medical information from nurses and other ancillary care providers ,explaining to the patient about labs, imaging, diagnosis and management of active complexmedical conditions), effort to transfer [facility] Hospital, discussion with director of casework services, review of labs and imaging is 35 [...] 278 H Charges/Coding Visit Charges Inpatient E&M: 02770 Subs Hosp L3 05/12/25 1722 Cosigner Signature (if applicable): CC: ~ Signed [facility]06-18-2025 History and physical note Author Lane Stanley [facility] Note Date/Time May 12, 2025 12:4 6am [facility] Medical Records Department [address] [place] [address] H&P Exam - Hospitalist 05/11/251918 MR#: [id number] Acct: [id number] Name: ITZEL ALONZO Rep #:[id number] : 1950 74 From: Lane dunn DO PCP: SID Haro Status:ADM [facility] HPI - General General Date of Admission: 05/11/25 Date of Service: 05/11/25 Chief Complaint: Worsening fatigue, weakness and confusion HPI Narrative ITZEL ALONZO, is a 74 M who presented to [facility] ED on 05/11/2025 with worsening fatigue, weakness and confusion. Patient has been seenin our ED recently but he receives his care through the NH. He was diagnosed with right- sided lung [...] phone with the transfer nurse with the NH liliana goodman. Nurse noted that transfer could be initiated there but as the admitting physician was gone for the day, transfer will not happen until tomorrow at the earliest. [facility] Medical History (Updated 05/12/25 @ 00:00 by [...] budesonide-formoterol HFA 80 2 puff inhalation BID ART CONSULTANT D 05/09/21 Unknown History mcg-4.5 mcg/actuation aerosol [...] 74.3 H, Lymph % (Auto) 18.4 L, Swift % (Auto) 5.8, Eos % (Auto) 0.8, [...] associated with end-stage honeycomb fibrosis. Reading [facility] Assessment & Plan Assessment/Plan (1) Lung cancer: (2) Hypercalcemia: (3) Acute on chronic anemia: PLAN: Plan Patient is a 74-year-old male who presented [facility] ED on 05/11/2025 with worsening fatigue, weakness [...] Patient has established with oncology at the [facility]. Has deferred treatment for the lung cancer up to this point. Discussed with patient and family extensively in the ED and noted to them that unfortunately his condition will continue to worsen without active chemotherapy or radiation therapy for this lung cancer. Patient was scheduled to follow-up with oncology at the NH next week. Transfer has been initiated to the NH. 2. Acute metabolic encephalopathy suspected secondary to [...] As plan is for transfer to the NH, will hold on GI consult for now. [...] code, verified Expected disposition: Likely transfer to NH Total clinical time spent by myself addressing the patient's medical issues, reviewing all the data, and collaborating with patient's care team: 75 minutes. Charges/Coding Visit Charges Inpatient E&M: 75714 Init Hosp L3 05/12/25 0046 <Electronically signed by Lane Stanley DO> Cosigner Signature (if applicable): CC: SID Haji; Dr. Lane Stanley, DO~ Signed [facility] Work Phone: 1(370) 613-444406-18-2025 History and physical note [facility] Medical Records Department [address] [place] [address] H&P Exam - Hospitalist 05/11/251918 MR#: [id number] Acct: [id number] Name: ITZEL ALONZO Rep #:[id number] : 1950 74 From: Lane Ever dunn DO PCP: Carlene Haji, EMPLOYMENT SERVICES DIRECTOROnurC Status:ADM IN Location: [place] [id number] 1 HPI - General General Date of Admission: 05/11/25 Date of Service: 05/11/25 Chief Complaint: Worsening fatigue, weakness and confusion HPI Narrative ITZEL ALONZO, is a 74 M who presented to [facility] ED on 05/11/2025 with worsening fatigue, weakness and confusion. Patient has been seenin our ED recently but he receives his care through the NH. He was diagnosed with right-sided lung cancer about 1 year ago. It appears this diagnosis was confirmed on bronchial biopsy. Patient declined active treatment at that time and preferred close monitoring. However, patient has issues with transportationand has had difficulty getting tohis appointments with oncology at the NH. He lives at home with his significant [...] phone with the transfer nurse with the NH liliana goodman. Nurse noted that transfer could be initiated there but as the admitting physician was gone for the day, transfer will not happen until tomorrow at the earliest. [facility] Medical History (Updated 05/12/25 @ 00:00 by [...] budesonide-formoterol HFA 80 2 puff inhalation BID ART CONSULTANT D 05/09/21 Unknown History mcg-4.5 mcg/actuation aerosol [...] 74.3 H, Lymph % (Auto) 18.4 L, Swift % (Auto) 5.8, Eos % (Auto) 0.8, [...] associated with end-stage honeycomb fibrosis. Reading Location: [facility] Assessment & Plan Assessment/Plan (1) Lung cancer: (2) Hypercalcemia: (3) Acute on chronic anemia: PLAN: Plan Patient is a 74-year-old male who presented [facility] ED on 05/11/2025 with worsening fatigue, weakness [...] Patient has established with oncology at the [facility]. Has deferred treatment for the lung cancerup to this point. Discussed with patient and family extensively in the ED and noted to them that unfortunately his condition will continue to worsen without active chemotherapy or radiation therapy for this lung cancer. Patient was scheduled to follow-up with oncology at the NH next week. Transfer h as been initiated to the NH. 2. Acute metabolic encephalopathy suspected secondary to [...] As plan is for transfer to the NH, will hold on GI consult for now. [...] code, verified Expected disposition: Likely transfer to NH Total clinical time spent by myself addressing the patient's medical issues, reviewing all the data, and collaborating with patient's care team: 75 minutes. Charges/Coding Visit Charges Inpatient E&M: 98759 Init Hosp L3 05/12/25 0046 Cosigner Signature (if applicable): CC: EMPLOYMENT SERVICES DIRECTOR-C Carlene Haji; Dr. Lane Stanley, DO~ Signed [facility]06-18-2025 Consult note Author Clarke Montesinos [facility] Note Date/Time May 11, 2025 10:3 8pm [facility] Medical Records Department [address] [place] [address] Pharmacokinetic/Renal -Consult 05/11/252236 MR#: [id number] Acct: [id number] Name: ITZEL ALONZO Rep #:[id number] : 1950 74 From: Clarke Bailon od PCP: SID Haro Status:ADM IN Y Location: [place] [address] Consult Antibiotic Management Pharmacy has been consulted [...] signed by Clarke rizzo> Date _ Clarke Montesinos Cosigner Signature (if applicable): Date CC: ~ Signed [facility] Work Phone: 1(313) 877-196506-17-2025 Discharge summary Author Monty Clarke [facility] Note Date/Time May 11, 2025 9:07 pm [facility] Medical Records Department [address] [place] [address] Emergency Department Summary 05/11/25 MR#: [id number] Acct: [id number] Name: ITZEL ALONZO Rep #:[id number] : 1950 74 From: Monty Clarke MD PCP: Carlene Haji, SID Status:ADM IN [facility] [address] Monty Clarke MD on 05/11/25 at 2107 EKG was obtained 1709 interpreted by me at 1711. The EKG is normal. Rate is 91. AR interval, QRS duration, QT duration and axis are all normal. 05/11/252106<Electronically signed by Monty Clarke MD> Cosigner Signature (if applicable): cc: EMPLOYMENT SERVICES DIRECTOR-C Carlene Haji ~* Signed HPI History of [...] said something that was offensive to the mechanic driver . 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 He [...] Prior similar symptoms: No Recent Illness/Hospitalization: Yes [facility] Medical History (Updated 05/11/25 @ 18:41 [...] budesonide-formoterol HFA 80 2 puff inhalation BID ART CONSULTANT D 05/09/21 Unknown History mcg-4.5 mcg/actuation aerosol [...] 74.3 H Lymph % (Auto) 18.4 L Swift % (Auto) 5.8 Eos % (Auto) 0.8 [...] associated with end-stage honeycomb fibrosis. Reading Location: [facility] EKG Initial EKG: Attestation: I personally reviewed and interpreted this EKG as follows: Interpretation: Sinus Rhythm (Sinus rhythm rate of 91. Normal EKG. AR interval 150 ms Rickers duration 90 ms. QT duration 3096 ms. Lyons is normal. EKG is unchanged from prior. ) Prior: Changed (September 14, 2021) Management Discussion w/another healthcare provider: Hospitalist (Dr. Stanley requested Icontact Dr. Robertson to make sure it is okay for me to admit this patient to [facility]) Additional Tests and Interventions Additional Tests or [...] EKG with elevated troponin), Discussing w/Patient &/or Family/Low Voltage Technician, Discussing w/Consultants and Arranging Admission or Transfer Discharge Plan Dx/Rx/DC Orders Clinical Impression: Obstructive pneumonia, Microcytic anemia, Acute on chronic anemia, Exertional dyspnea, Elevated troponin, Sinus tachycardia seen on manager monitoring, Hypercalcemia, Lung cancer Disposition Disposition: Acute Care Hospital [facility] What to do if you have Problems For any increased pain, shortness of breath, bleeding, nausea or vomiting, chestpain, or any unexpected problems, contact your Primary Care Provider. Call [facility] ([phone]) or report to the closest Emergency Room. Call 911 if necessary. 05/11/251840 <Electronically signed by Monty Clarke MD> Cosigner Signature (if applicable): CC: SID Haji ~ Signed [facility] Work Phone: 1(720) 714-732406-17-2025 Consult note [facility] Medical Records Department [address] [place] [address] Pharmacokinetic/Renal -Consult 05/11/252236 MR#: [id number] Acct: [id number] Name: ITZEL ALONZO Rep #:[id number] : 1950 74 From: Clarke Bailon od PCP: Carlene Haji, EMPLOYMENT SERVICES DIRECTOR-C Status:ADM IN Y Location: [place] [address] Consult Antibiotic Management Pharmacy has been consulted [...] [date and time ordered]: 05/13 @ 0930 05/11/258 lood> Date _ Clarke Montesinos Cosigner Signature (if applicable): Date CC: ~ Signed [facility]06-17-2025 Evaluation note* Diagnosis Onset Date Resolution Status Admit Date Elevated troponin acute May 112024 7:20pm Exertional dyspnea acute April 252024 7:20pm Hypercalcemia acute May 11, 2025 7:20pm Lung cancer acute May 11 7:20pm Microcytic anemia acute May 112024 7:20pm Obstructive pneumonia acute Apr 7:20pm Sinus tachycardia seen on manager monitoring acute May 11, 2025 7:20pm Acute on chronic anemia chronic [facility] 2024 7:20pm [facility] Work Phone: 1([phone]) [phone] Evaluation note* Diagnosis Onset Date Resolution Status Admit Date Elevated troponin acute May 112024 7:20pm Exertional dyspnea acute April 252024 7:20pm Hypercalcemia acute May 11, 2025 7:20pm Lung cancer acute May 11 7:20pm Microcytic anemia acute May 112024 7:20pm Obstructive pneumonia acute Apr 7:20pm Sinus tachycardia seen on ca rdiac monitor acute May 11, 2025 7:20pm Acute on chronic anemia chronic [facility] 2024 7:20pm Closed intertrochanteric fra cture of right hip acute July 03, 2025 10:54pm Fall acute July 03 10:54pm [facility] Work Phone: 1(892) 767-659906-17-2025 Discharge summary [facility] Medical Records Department [address] [place] [address] Emergency Department Summary 05/11/25 MR#: [id number] Acct: [id number] Name: ITZEL ALONZO Rep #:[id number] : 1950 74 From: Monty Clarke MD PCP: SID Haro Status:ADM IN Location: [place] [address] Monty Clarke MD on 05/11/25 at 2107 EKG was obtained 1709 interpreted by me at 1711. The EKG is normal. Rate is 91. AR interval, QRS duration, QT duration and axis are all normal. 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 He [...] Prior similar symptoms: No Recent Illness/Hospitalization: Yes [facility] Medical History (Updated 05/11/25 @ 18:41 [...] budesonide-formoterol HFA 80 2 puff inhalation BID ART CONSULTANT D 05/09/21 Unknown History mcg-4.5 mcg/actuation aerosol [...] 74.3 H Lymph % (Auto) 18.4 L Swift % (Auto) 5.8 Eos % (Auto) 0.8 [...] associated with end-stage honeycomb fibrosis. Reading Location[facility] EKG Initial EKG: Attestation: I personally reviewed and interpreted this EKG as follows: Interpretation: Sinus Rhythm (Sinus rhythm rate of 91. Normal EKG. AR interval 150 ms Rickers duration 90 ms. QT duration 3096 ms. Lyons is normal. EKG is unchanged from prior. ) Prior: Changed (September 14, 2021) Management Discussion w/another healthcare provider: Hospitalist (Dr. Stanley requested Icontact Dr. Robertson to make sure it is okay for me to admit this patient to [facility]) Additional Tests and Interventions Additional Tests or [...] to PCU.Have not heard back from the NH as of 1840 Critical Care Time Critical Care Time: Yes Critical care time (excluding procedures): 30-74 minutes (31), Including time spent: (History, physical, documentation, independent rotation of laboratory results and x-ray and initiation of treatment for obstructive pneumonia and abnormal EKG with elevated troponin), Discussing w/Patient &/or Family/Low Voltage Technician, Discussing w/Consultants and Arranging Admission or Transfer Discharge Plan Dx/Rx/DC Orders Clinical Impression: Obstructive pneumonia, Microcytic anemia, Acute on chronic anemia, Exertional dyspnea, Elevated troponin, Sinus tachycardia seen on manager monitoring, Hypercalcemia, Lung cancer Disposition Disposition: Acute Care Hospital [facility] What to do if you have Problems For any increased pain, shortness of breath, bleeding, nausea or vomiting, chestpain, or any unexpected problems, contact your Primary Care Provider. Call [employer] [facility] ([phone]) or report tothe closest Emergency Room. Call 911 if necessary. 05/11/251840 Cosigner Signature (if applicable): CC: SID Haji ~ Signed [facility]06-17-2025 Discharge summary [facility] Medical Records Department [address] [place] [address] Emergency Department Summary 05/11/25 MR#: [id number] Acct: [id number] Name: ITZEL ALONZO Rep #:[id number] : 1950 74 From: Monty Clarke MD [...] said something that was offensive to the mechanic driver . 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 He endorses fatigue, generalized weakness. He has poor appetite. He does admit to change in urination. States he was seenapproximately 3 weeks ago due to a fall. After reviewing records he was seen onthe 10thof this month for fall. He was seen by Dr. Qiuros. He had a workup that was unremarkable. [...] Prior similar symptoms: No Recent Illness/Hospitalization: Yes [facility] Medical History (Updated 05/11/25 @ 18:41 [...] budesonide-formoterol HFA 80 2 puff inhalation BID ART CONSULTANT D 05/09/21 Unknown History mcg-4.5 mcg/actuation aerosol [...] 74.3 H Lymph % (Auto) 18.4 L Swift % (Auto) 5.8 Eos % (Auto) 0.8 [...] end-stage honeycomb fibrosis. Reading Location: [facility] EKG Initial EKG: Attestation: I personally reviewed and interpreted this EKG as follows: Interpretation: Sinus Rhythm (Sinus rhythm rate of 91. Normal EKG. AR interval 150 ms Rickers duration 90 ms. QT duration 3096 ms. Lyons is normal. EKG is unchanged from prior. ) Prior: Changed (September 14, 2021) Management Discussion w/another healthcare provider: Hospitalist (Dr. Stanley requested Icontact Dr. Robertson to make sure it is okay for me to admit this patient to [facility]) Additional Tests and Interventions Additional Tests or [...] EKG with elevated troponin), Discussing w/Patient &/or Family/Low Voltage Technician, Discussing w/Consultants and Arranging Admission or Transfer Discharge Plan Dx/Rx/DC Orders Clinical Impression: Obstructive pneumonia, Microcytic anemia, Acute on chronic anemia, Exertional dyspnea, Elevated troponin, Sinus tachycardia seen on manager monitoring, Hypercalcemia, Lung cancer Disposition Disposition: Acute Care Hospital [facility] What to do if you have Problems For any increased pain, shortness of breath, bleeding, nausea or vomiting, chestpain, or any unexpected problems, contact your Primary Care Provider. Call [facility] ([phone]) or report tothe closest Emergency Room. Call 911 if necessary. 05/11/25 1841 Cosigner Signature (if applicable): CC: SID Haji ~ Signed [facility]06-17-2025 Radiology Diagnostic study note [facility] Imaging Services [address] [place] [address] Chest PA and Lateral MR#: [id number] Acct: [id number] Name: ITZEL ALONZO Rep #: [id number] : 1950 M 74 From: Pet er Peer DO PCP: SID Haro Status: REG ER Study:Chest PA and Lateral Date of Exam: 05/11/25 Exam# [id number] Ordering Dr: Karin Clarke MD PROCEDURE: CHEST [...] end-stage honeycomb fibrosis. Reading Location: [facility] CC: EMPLOYMENT SERVICES DIRECTORNissa Haji; Dr. Monty Clarke MD ~ Police Investigator: Signed [facility]06-17-2025 Discharge summary Author Monty Clarke [facility] Note Date/Time May 11, 2025 6:41 pm [facility] Medical Records Department [address] [place] [address] Emergency Department Summary 05/11/25 MR#: [id number] Acct: [id number] Name: ITZEL ALONZO Rep #:[id number] : 1950 74 From: Monty Clarke MD [...] said something that was offensive to the mechanic driver . 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 He [...] Prior similar symptoms: No Recent Illness/Hospitalization: Yes [facility] Medical History (Updated 05/11/25 @ 18:41 [...] budesonide-formoterol HFA 80 2 puff inhalation BID ART CONSULTANT D 05/09/21 Unknown History mcg-4.5 mcg/actuation aerosol [...] 74.3 H Lymph % (Auto) 18.4 L Swift % (Auto) 5.8 Eos % (Auto) 0.8 [...] end-stage honeycomb fibrosis. Reading Location: [facility] EKG Initial EKG: Attestation: I personally reviewed and interpreted this EKG as follows: Interpretation: Sinus Rhythm (Sinus rhythm rate of 91. Normal EKG. AR interval 150 ms Rickers duration 90 ms. QT duration 3096 ms. Lyons is normal. EKG is unchanged from prior. ) Prior: Changed (September 14, 2021) Management Discussion w/another healthcare provider: Hospitalist (Dr. Stanley requested Icontact Dr. Robertson to make sure it is okay for me to admit this patient to [facility]) Additional Tests and Interventions Additional Tests or [...] PCU. Have not heard back from the NH as of 1840 Critical Care Time Critical Care Time: Yes Critical care time (excluding procedures): 30-74 minutes (31), Including time spent: (History, physical, documentation, independent rotation of laboratory results and x-ray and initiation of treatment for obstructive pneumonia and abnormal EKG with elevated troponin), Discussing w/Patient &/or Family/Low Voltage Technician, Discussing w/Consultants and Arranging Admission or Transfer Discharge Plan Dx/Rx/DC Orders Clinical Impression: Obstructive pneumonia, Microcytic anemia, Acute on chronic anemia, Exertional dyspnea, Elevated troponin, Sinus tachycardia seen on manager monitoring, Hypercalcemia, Lung cancer Disposition Disposition: Acute Care Hospital [facility] What to do if you have Problems For any increased pain, shortness of breath, bleeding, nausea or vomiting, chestpain, or any unexpected problems, contact your Primary Care Provider. Call [employer] [facility] ([phone]) or report to the closest Emergency Room. Call 911 if necessary. 05/11/251840 <Electronically signed by Monty lCarke MD> Cosigner Signature (if applicable): CC: SID Haji ~ Signed [facility] Work Phone: 1(965) 845-180006-17-2025 Evaluation note* Diagnosis Onset Date Resolution Status Admit Date Elevated troponin acute May 112024 7:20pm Exertional dyspnea acute April 252024 7:20pm Hypercalcemia acute May 11, 2025 7:20pm Microcytic anemia acute May 112024 7:20pm Obstructive pneumonia acute Jamey e 2024 7:20pm Sinus tachycardia seen on manager monitoring acute May 11, 2025 7:20pm Acute on chronic anemia chronic J une 2024 7:20pm [facility] Work Phone: 1(941) 728-266406-10-2025 Radiology Diagnostic study note [facility] Imaging Services [address] [place], [place] [address] Brain/Head without Contrast MR#: [id number] Acct: [id number] Name: ITZEL ALONZO Rep #: [id number] : 1950 M 74 From: Bert Sloan MD PCP: LUIS MIGUEL HaroC Status: REG ER Study:Brain/Head without Contrast Date of Exa m: 05/04/25 Exam# [id number] Ordering Dr: Ike Dawson DO PROCEDURE: BRAIN/HEAD [...] or other acute process noted. Reading Location: [address] CC: EMPLOYMENT SERVICES DIRECTOR-C Carlene Haji; Dr. Ike Dawson DO ~ Police Investigator: Signed [facility]06-10-2025 Radiology Diagnostic study note [facility] Imaging Services [address] [place] [address] Spine Cervical without Contras MR#: [id number] Acct: [id number] Name: ITZEL ALONZO Rep #: [id number] : 1950 M 74 From: Juan Miguel Santos MD PCP: Carlene Haji EMPLOYMENT SERVICES DIRECTOR-C Status: REG ER Study:Spine Cervical without Contras Date of Exam: 05/04/25 Exam# [id number] Ordering Dr: Ike Dawson DO PROCEDURE: SPINE [...] Right upper lobe pulmonary mass. Reading Location: [facility] CC: EMPLOYMENT SERVICES DIRECTORNissa Haji; Dr. Ike Dawson DO ~ Police Investigator: Signed [facility]06-10-2025 Radiology Diagnostic study note [facility] Imaging Services [address] [place] [address] Chest without Contrast MR#: [id number] Acct: [id number] Name: ITZEL ALONZO Rep #: [id number] : 1950 M 74 From: Juan Miguel Santos MD PCP: SID Haro Status: REG ER Study:Chest without Contrast Date of Exam: 05/04/25 Exam# [id number] Ordering Dr: Ike Dawson DO PROCEDURE: CHEST [...] at the right lung base. Reading Location: [facility] CC: SID Haji; Dr. Ike Dawson DO ~ Police Investigator: Signed [facility]06-10-2025 Radiology Diagnostic study note [facility] Imaging Services [address] [place], [place] [address] Shoulder min 2 Views MR#: [id number] Acct: [id number] Name: ITZEL ALONZO Rep #: [id number] : 1950 M 74 From: Juan Miguel Santos MD PCP: SID Haro Status: REG ER Study:Shoulder min 2 Views Date of Exam: 05/04/25 Exam# [id number] Ordering Dr: Ike Dawson DO PROCEDURE: SHOULDER [...] Correlation witha CT scan recommended. Reading Location: [facility] CC: SID Haji; Dr. Ike Dawson DO ~ Police Investigator: Signed [facility]05-30-2025 Radiology Diagnostic study note [facility] Imaging Services [address] [place], [place] [id number] STROKE CTA Head AND Neck W/Con MR#: [id number] Acct: [id number] Name: ITZEL ALONZO Rep #: [id number] : 1950 M 74 From: Oswald Perez MD PCP: Carlene N Adithya, EMPLOYMENT SERVICES DIRECTOR-C Status: REG ER Study:STROKE CTA Head AND Neck W/Con Date of Exam: 04/23/25 Exam# [id number] Ordering Dr: Steven Tejeda DO PROCEDURE: STROKE [...] occluded similar to the prior CTA. Anatomy: Cheesh-[place] of [place] anatomy is normal. Aneurysm or [...] apical mass suspicious for malignancy. Reading Location: [id number] CC: SID Haji; Dr. Steven Tejeda DO ~ Police Investigator: Signed [facility]05-30-2025 Radiology Diagnostic study note [facility] Imaging Services [address] [place], [place] [address] Chest 1 View (Portable) MR#: [id number] Acct: [id number] Name: ITZEL ALONZO Rep #: [id number] : 1950 M 74 From: Oswald Perez MD PCP: Carlene Haji NP-C Status: REG ER Study:Chest 1 View (Portable) Date of Exam: 04/23/25 Exam# [id number] Ordering Dr: Steven Tejeda DO PROCEDURE: CHEST [...] regions which may represent adenopathy. Reading Location: [id number] CC: EMPLOYMENT SERVICES DIRECTOR-C Carlene Haji; Dr. Steven Tejeda DO ~ Police Investigator: Signed [facility]05-30-2025 Radiology Diagnostic study note [facility] Imaging Services [address] [place], [place] [address] STROKE Brain/Head without Cont MR#: [id number] Acct: [id number] Name: ITZEL ALONZO Rep #: [id number] : 1950 M 74 From: Oswald Perez MD PCP: Carlene Haji, IKE-C Status: REG ER Study:STROKE Brain/Head without Cont Date of Exam: 04/23/25 Exam# [id number] Ordering Dr: Steven Tejeda DO PROCEDURE: STROKE [...] atrophy and chronic microvascular ischemia. Reading Location: [id number] CC: SID Haji; Dr. Steven Tejeda, DO Police Investigator: Signed [facility] Author Anthony Salgado [facility] Note Date/Time May 13, 2025 2:00 pm [facility] Medical Records Department [address] [place] [address] Discharge Summary 05/13/25 1257 MR#: [id number] Acct: [id number] Name: ITZEL ALONZO Rep #:[id number] : 1950 74 From: Anthony Kiser PCP: SID Haro Status:ADM IN Location: [place] [address] Providers Date of Admission: 05/11/25 Primary Care [...] Patient is a 74-year-old male who presented [facility] ED on 05/11/2025 with worsening fatigue, weakness and confusion. 1. Large right-sided lung cancer with suspected postobstructive pneumonia ? Admit under inpatient status to PCU. Patient with known history of large right-sided lung cancer. Chest x-ray on admit with concern for acute postobstructive pneumonia in setting of lung cancer. Stable on room air at rest. Patient has established oncologist Dr. Lake, [facility]. I myself tried to contact through the transfer line 2 times but unsuccessful. Discussed with the director of casework services. NH oncologist wanted CT head before transfer. In [...] As plan is for transfer to the NH, will hold on GI consult for now. [...] code, verified Expected disposition: Likely transfer to NH Patient is being transferred to NH Hospital for further care and decision makingregarding [...] lung cancer, exact sampler/tissue type unclear. Follows NH oncologist, await path . Because of transportation [...] 75.7 H, Lymph % (Auto) 16.4 L, Swift % (Auto) 6.5, Eos % (Auto) 0.9, [...] mass. No acute intracranial process. Reading Location: [facility] D/C Instructions DC O2, CPAP, BIPAP Needs [...] Anthony Salgado Charges/Coding Visit Charges Inpatient E&M: 71782 Disch Hosp >30min 05/13/25 1400 <Electronically signed by Anthony Salgado MD> Cosigner Signature (if applicable): CC: LUIS MIGUELC Carlene Haji; Dr. Anthony Salgado MD~ Signed [facility] Work Phone: Evaluation noteNo assessment information available [facility] Work Phone: History and physical note Author Johanne Evans [facility] Note Date/Time July 03, 2025 11: 21pm [facility] Medical Records Department [address] [place] [address] H&P Exam - Hospitalist 07/03/252236 MR#: [id number] Acct: [id number] Name: ITZEL ALONZO Rep #:[id number] : 1950 75 From: Johanne Evans MD PCP: SID Haro Status:ADM IN Location: [facility] HL841-0 HPI - General General Date of Admission: [...] Formertobacco use, COPD, recent transfer to the NH from [facility] on 05/13/25 following largeright-sided lung cancer wit suspected postobstructive pneumonia with acute metabolic encephalopathy suspected secondary to hypercalcemia of malignancy in addition to acute on chronic anemia with suspected upper GI bleed for further evaluation who now presents to the [facility] ED on 07/03/2025 with onset of right [...] osseous lesion would plan to admit to [facility] and evaluate for repair of hip fracture. 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 Malignancy can not be excluded. Reading Location: [facility] Lower Extremity CT 07/03/25 21:54 IMPRESSION: Acute, moderately comminuted and impacted right intertrochanteric femoral fracture. No aggressive osseous lesions. Reading Location: [facility] Assessment & Plan Assessment/Plan (1) Closed intertrochanteric fracture of right hip: (2) Fall: PLAN: Plan The patient is a 75 y/o M w/ PMHx: CKD stage II per GFR trending, RLS, Cirrhosisassociated with hepatitis unclear specific type, Diabetes mellitus type II with chronic neuropathy, Anxiety and Depression, GERD, Hx CVA, Chronic anemia, Formertobacco use, COPD, recent transfer to the NH from [facility] on 05/13/25 following largeright-sided lung cancer wit suspected postobstructive pneumonia with acute metabolic encephalopathy suspected secondary to hypercalcemia of malignancy in addition to acute on chronic anemia with suspected upper GI bleed for further evaluation who now presents to the [facility] ED on 07/03/2025 with onset of right [...] [facility] from discussion [...] 16 minutes. Charges/Coding Visit Charges Inpatient E&M: 16001 Init Hosp L3 Procedures Hospitalists Procedures: 36295 Advncd Care Plan 30 Min 07/03/25 2321 <Electronically signed by Johanne Evans MD> Cosigner Signature (if applicable): CC: EMPLOYMENT SERVICES DIRECTORNissa Haji; Dr. Johanne Evans MD~ Signed [facility] Work Phone: Hospital Discharge instructions Additional Instructions Your workup today indicates your dizziness is most likely from peripheral vertigo. Take the Valium as directed to help control any recurrent dizzy symptoms. Return to the ER should you have any further concerns. You may continue all of your other home medications as directed by your doctorWOhioHealth [facility] Work Phone: Hospital Discharge instructions Additional [...] you. Use tramadol as needed for pain control.[facility] Work Phone: Hospital Discharge instructionsAdditional Instructions There [...] urinate then please come back to the ER.[facility] Work Phone: Reason for referral (narrative)No reason for referral information availableWOhioHealth [facility] Work Phone: Summary Purpose Family History No Family History Records Found Relationship Condition Age at Onset Recorded Date/T jennifer mother Cerebrovascular accident (CVA) Unknown Advance Directives No Advanced Directives Records Found Advance Directive Response Recorded Date/ Time Do you have a Healthcare Power of Demand Inspector? No April 23, 2025 9:07pm Advance Directive Response Recorded Date/ Time Do you have a Healthcare Power of Demand Inspector? No May 04, 2025 11:25am Do you have a Healthcare Power of Demand Inspector? No April 23, 2025 9:07pm Advance Directive Response Recorded Date/ Time Do you have a Healthcare Power of Demand Inspector? No May 04, 2025 11:25am Do you have a Healthcare Power of Demand Inspector? No May 11, 2025 2:29pm Do you have a Healthcare Power of Demand Inspector? No April 23, 2025 9:07pm Advance Directive Response Recorded Date/ Time Do you have a Healthcare Power of Demand Inspector? No May 04, 2025 11:25am Do you have a Healthcare Power of Demand Inspector? No May 11, 2025 8:16pm Do you have a Healthcare Power of Demand Inspector? No April 23, 2025 9:07pm Advance Directive Response Recorded Date/ Time Do you have a Healthcare Power of Demand Inspector? No May 04, 2025 11:25am Do you have a Healthcare Power of Demand Inspector? No May 11, 2025 8:16pm Do you have a Healthcare Power of Demand Inspector? No April 23, 2025 9:07pm Do you have a Healthcare Power of Demand Inspector? No July 03, 2025 7:10pm Advance Directive Response Recorded Date/ Time Do you have a Healthcare Power of Demand Inspector? No May 04, 2025 11:25am Do you have a Healthcare Power of Demand Inspector? No May 11, 2025 8:16pm Do you have a Healthcare Power of Demand Inspector? No April 23, 2025 9:07pm Do you have a Healthcare Power of Demand Inspector? Yes July 04, 2025 12:20am Advance Directive Response Recorded Date/ Time Do you have a Healthcare Power of Demand Inspector? No May 04, 2025 11:25am Do you have a Healthcare Power of Demand Inspector? No May 11, 2025 8:16pm Do you have a Healthcare Power of Demand Inspector? No April 23, 2025 9:07pm Do you have a Healthcare Power of Demand Inspector? Yes July 04, 2025 12:20am Do you have a Healthcare Power of Demand Inspector? Yes July 08, 2025 10:58am Chief Complaint and Reason for Visit Chief [...] 01pm gu July 08, 2025 10 :55am Additional Source Comments (unrecognized sect ion and content) No Status Records FoundNo Status Records Found INFORMATION SOURCE (unrecogn ized section and content) DATE CREATED AUTHOR 05/10/2021 [facility] DATE CREATED AUTHOR AUTHOR'S OUMOU ATION 07/23/2025 [facility] Care Teams (unrecognized sec tion and content) Team Status: Active Member Role Status Dates Carlene Haji NP-C Primary Care Provider Active Team Status: Inactive Member Role Status Dates Dr. Steven Tejeda DO Emergency Provider Active Start: April 23, 2025 End: April 24, 2025 Carlene Haji EMPLOYMENT SERVICES DIRECTOR-C Primary Care Provider Active Start: April 23, 2025 End: April 24, 2025 Team Status: Inactive Member Role Status Dates Dr. Steven Tejeda DO Attending Provider Active Start: April 23, 2025 End: April 24, 2025 Dr. Steven Tejeda DO Emergency Provider Active Start: April 23, 2025 End: April 24, 2025 Carlene Haji EMPLOYMENT SERVICES DIRECTOR-C Primary Care Provider Active Start: April 23, 2025 End: April 24, 2025 Team Status: Inactive Member Role Status Dates Carlene Haji EMPLOYMENT SERVICES DIRECTOR-C Primary Care Provider Active Start: May 04, 2025 End: May 04, 2025 Dr. Ike Dawson DO Emergency Provider Active Start : May 04, 2025 End: May 04, 2025 Team Status: Inactive Member Role Status Dates Carlene Haji EMPLOYMENT SERVICES DIRECTOR-C Primary Care Provider Active Start: May 04, 2025 End: May 04, 2025 Dr. Ike Dawson DO Attending Provider Active Start : May 04, 2025 End: May 04, 2025 Dr. Ike Dawson DO Emergency Provider Active Start : May 04, 2025 End: May 04, 2025 Team Status: Active Member Role Status Dates Carlene Haji NP-C Primary Care Provider Active Start: May 11, 2025 Dr. Monty Clarke MD Emergency Provider Active Sta rt: May 11, [address] Stanley DO Admit Provider Active Start: May 11, [address] Stanley DO Attending Provider Active Start: May 11, 2025 Team Status: Inactive Member Role Status Dates Carlene Haji EMPLOYMENT SERVICES DIRECTOR-C Primary Care Provider Active Start: May 11, [...] Active Member Role Status Dates Carlene Haji EMPLOYMENT SERVICES DIRECTOR-C Primary Care Provider Active Start: May 12, [...] Active Member Role Status Dates Carlene Haji EMPLOYMENT SERVICES DIRECTOR-C Primary Care Provider Active Start: May 13, [...] Active Member Role/Relationship Status Dates Carlene Haji EMPLOYMENT SERVICES DIRECTOR-C Primary Care Provider Active Team Status: Inactive Member Role/Relationship Status Dates Dr. Steven Tejeda DO Attending Provider Active Start: April 23, 2025 End: April 24, 2025 Dr. Steven Tejeda DO Emergency Provider Active Start: April 23, 2025 End: April 24, 2025 Carlene Haji EMPLOYMENT SERVICES DIRECTOR-C Primary Care Provider Active Start: April 23, 2025 End: April 24, 2025 Team Status: Inactive Member Role/Relationship Status Dates Carlene Haji , EMPLOYMENT SERVICES DIRECTOR-C Primary Care Provider Active Start: May 04, 2025 End: May 04, 2025 Dr. Ike Dawson DO Attending Provider Active Start : May 04, 2025 End: May 04, 2025 Dr. Ike Dawson DO Emergency Provider Active Start : May 04, 2025 End: May 04, 2025 Team Status: Inactive Member Role/Relationship Status Dates Carlene Haji , EMPLOYMENT SERVICES DIRECTOR-C Primary Care Provider Active Start: May 11, [...] Member Role/Relationship Status Dates Carlene Haji , EMPLOYMENT SERVICES DIRECTOR-C Primary Care Provider Active Start: May 12, [...] Active Member Role/Relationship Status Dates Carlene Haji EMPLOYMENT SERVICES DIRECTOR-C Primary Care Provider Active Start: May 13, [...] Member Role/Relationship Status Dates Carlene Haji , EMPLOYMENT SERVICES DIRECTOR-C Primary Care Provider Active Start: July 03, 2025 Dr. Steven Tejeda DO Emergency Provider Active Start: July 03, 2025 Dr. Johanne Evans MD Admit Provider Active St art: July 03, 2025 Dr. Johanne Evans MD Attending Provider Active Start: July 03, 2025 Dr. Johanne Evans MD Other Provider Active St art: July 03, 2025 Team Status: Inactive Member Role/Relationship Status Dates Carlene Haji EMPLOYMENT SERVICES DIRECTOR-C Primary Care Provider Active Start: July 03, 2025 End: July 07, 2025 Dr. Steven Tejeda DO [...] Member Role/Relationship Status Dates Carlene Haji , EMPLOYMENT SERVICES DIRECTOR-C Primary Care Provider Active Start: July 04, [...] Member Role/Relationship Status Dates Carlene Haji , EMPLOYMENT SERVICES DIRECTOR-C Primary Care Provider Active Start: July 05, [...] Active Member Role/Relationship Status Dates Carlene Haji EMPLOYMENT SERVICES DIRECTOR-C Primary Care Provider Active Start: July 06, [...] Inactive Member Role/Relationship Status Dates Carlene Haji EMPLOYMENT SERVICES DIRECTOR-C Primary Care Provider Active Start: July 08, 2025 End: July 08, 2025 Dr. Monty Clarke MD Emergency Provider Active Sta rt: July 08, 2025 End: July 08, 2025 Goals (unrecognized section and content) Goals may be documented in a n alternate sectionGoals may be documented in an alternate sectionGoals may be documented in an alternate section FOR RECORDS PERTAINING TO PATIENTS WHO ARE [...] BE BASED ON THE PRIMARY CLINICAL RECORDS. [facility] [employer] [facility]. provides no warranty or guarantee of the accuracy or completeness of information in this document.
--- NOTE | 2025-08-06 02:23 | EDS_ITS ---
HPI History of Present Illness Chief Complaint: Fall Informant: patient and SNF Narrative Narrative: Patient is a 75-year-old [facility] with past medical history of lung cancer chronic anemia hypertension chronic kidney disease and cirrhosis. He is on 2.5 mg of Eliquis twice a day secondary to previous TIA/CVA. [facility] staff reports that this evening he was found laying partially in his bed and out of it. They state that he was found with his waist/legs in the bed and his body hanging over the edge towards the floor. They state there appeared to be no sign of injury but he is on the blood thinner and there was concern for this so he was sent in for evaluation. Upon arrival the patient is sleepy but will awaken to voice and is oriented to person and year. However penitentiary reports they felt his mental status was more diminished than at his baseline. The patient reports pain in his hip and low back but otherwise has no complaints. [facility] Medical History Fall Closed intertrochanteric fracture of right hip CKD (chronic kidney disease), stage II Chronic anemia Cancer of right lung Anxiety and depression GERD (gastroesophageal reflux disease) Cirrhosis Former smoker TIA (transient ischemic attack) Kidney stones Neuropathy PTSD (post-traumatic stress disorder) Hepatitis COPD (chronic obstructive pulmonary disease) Hypertension Diabetes Home Medications ?Medication ?Instructions ?Recorded ?Last Taken ?Type gabapentin 300 mg capsule 300 mg PO TID neuropathy 01/0907/02/25 21:00 History amlodipine 5 mg tablet 10 mg PO QHS blood pressure 05/09/21 07/02/25 21:00 History 10 mg aspirin 81 mg tablet,delayed 81 mg PO DAILY heart heal th 05/09/21 07/02/25 History release Held on 07/07/25. Instructions: Hold while taking Eliquis. budesonide-formoterol HFA 80 2 puff inhalation BID JAVA TECH LEAD D 05/09/21 07/02/25 History mcg-4.5 mcg/actuation aerosol inhaler (Symbicort) cyclobenzaprine 10 mg tablet 10 mg PO TID PRN muscle s pasms 05/09/21 07/02/25 History sildenafil 100 mg tablet 100 mg PO DAILY PRN Erectile 05/09/21 07/02/25 History Dysfunction atorvastatin 80 mg tablet 80 mg PO QHS cholesterol #90 tabs 05/12/21 07/02/25 21:00 Rx insulin aspart U-100 100 unit/mL 10 unit subcut TIDCM DM 12/12/24 07/02/25 History (3 mL) subcutaneous pen (Novolog FlexPen U-100 Insulin aspart) insulin glargine 100 unit/mL (3 10 unit subcut QPM Dm 05/04/25 07/02/25 History mL) subcutaneous pen (Lantus Solostar U-100 Insulin) magnesium hydroxide 400 mg/5 mL 5 ml PO DAILY PRN cons tipation 05/04/25 07/02/25 History oral suspension (Gentle Laxative (magnesium hydroxide)) ropinirole 1 mg tablet 1 mg PO QHS rls 05/04/2507/19 History albuterol 90 mcg/actuation aerosol 90 mcg inhalation Q 4H PRN sob 07/04/25 Unknow n History inhaler calcium carbonate 1,500 mg PO DAILY supplement 07/04/25 07/02/25 History cyclopentolate 2 % eye drops 1 drp LEFT EYE QHS inflam ation 07/04/25 07/02/25 History ferrous sulfate 325 mg (65 mg 325 mg PO .every other d ay 07/04/25 Unknown History iron) tablet (Feosol) supplement lidocaine 5 % topical patch 2 patch topical DAILY PRN pain 07/04/25 Unknown Hist ory melatonin 3 mg tablet 3 mg PO QHS sleep 07/04/25 0 07/02/25 History nicotine 14 mg/24 hr daily 1 patch transdermal DAILY s moking 07/04/25 Unknown History transdermal patch (Nicoderm CQ) cessation pantoprazole 40 mg tablet,delayed 40 mg PO DAILY heart burn 07/04/25 07/02/25 History release (Protonix) polyethylene glycol 3350 17 gram 17 g PO DAILY constip ation 07/04/25 07/02/25 History oral powder packet polyvinyl alcohol-povidone 1.4 1 drp ophthalmic (eye) 4X/DAY dry 07/04/25 07/02/25 History %-0.6 % eye drops eye prednisolone acetate 1 % eye 1 drp LEFT EYE Q6H inflam ation 07/04/25 07/02/25 History drops,suspension sennosides 8.6 mg-docusate sodium 2 tab-cap PO DAILY s tool softener 07/04/25 06/25/25 History 50 mg tablet (Senna with Docusate Sodium) tiotropium 2.5 mcg-olodaterol 2.5 2 puff inhalation DA MANDO asthma 07/04/25 07/02/25 History mcg/actuation mist for inhalation oxycodone 5 mg tablet 2.5 mg (1/2 x 5 mg) PO Q6H P RN 07/07/25 Unknown Rx pain 3 days #7 tabs acetaminophen 500 mg tablet 1,000 mg PO Q8 PRN fever o r pain 08/06/25 Unknown History apixaban 5 mg tablet (Eliquis) 2.5 mg PO Q12H 08/06/25 Unknown History cephalexin 500 mg capsule 500 mg PO TID 7 days #21 cap s 08/06/25 Unknown Rx Allergy/AdvReac Type Severity Reaction Status Date / Time No Known Allergies Allergy Verified 08/06/25 03:22 Family History Mother CVA (cerebral vascular accident) Family History other Surgical History Hx of appendectomy Social History household members: none housing: apartment Smoking Status: Former smoker alcohol intake: never substance use type: does not use ROS ROS ED Constitutional Constitutional ED: Denies fever(s) Eyes Eyes: Denies blurry vision or change in vision ENT ENT ED: Denies sore throat Cardiovascular Cardiovascular: Reports other Details: Negative syncope ; Denies chest pain, palpitations or racing heartbeat Respiratory/Chest Respiratory/Chest: Denies cough or dyspnea Gastrointestinal Gastrointestinal: Denies abdominal pain, diarrhea, nausea or vomiting Genitourinary Genitourinary ED: Denies dysuria Musculoskeletal Musculoskeletal: Reports back pain and other Details: Positive right hip pain ; Denies neck pain Integumentary Denies Abrasions Neurologic Neurologic: Denies headache(s) Hematologic/Lymphatic Hematologic/Lymphatic: Reports easy bleeding and easy bruising EXAM Physical Exam Const Vital Signs: 08/06/25 00:47 08/06/25 00:47 08/06/25 02:46 Temperature 97.8 F Temperature Source Oral Pulse Rate 102 H 104 H Respiratory Rate 18 18 Respiratory Effort Normal Respiratory Depth Normal Respiratory Pattern Normal Blood Pressure 135/78 H 136/83 H Blood Pressure Mean 97 100 Pulse Ox 96 100 Oxygen Delivery Method Room Air Room Air Room Air 08/06/25 04:00 Temperature Temperature Source Pulse Rate 103 H Respiratory Rate 18 Respiratory Effort Respiratory Depth Respiratory Pattern Blood Pressure 152/83 H Blood Pressure Mean 106 Pulse Ox 95 Oxygen Delivery Method Room Air Positive well nourished and well developed General Appearance ED: well developed; Negative for pallor HEENT Reports dry mucous membranes HEENT Narrative: Normocephalic atraumatic No signs of depressed or basilar skull fracture No tongue or cheek biting noted to suggest seizure activity No tongue or lip swelling no oral lesions no airway edema or compromise; no signs of infection noted in the posterior pharynx Mouth ED: Yes dry mucous membranes Mouth: dry mucous membranes Eyes PERRL and EOMs intact bilaterally General Eye ED: Negative for scleral icterus Neck supple Neck Narrative: No bony deformity or step-off of the cervical spine; no midline tenderness to palpation Chest Wall palpation of chest normal Chest Narrative: No bony deformity or subcutaneous emphysema noted with palpation of the chest wall No reproducible pain with palpation Resp normal respiratory effort Resp Narrative: Breath sounds are diminished throughout with scattered/faint rhonchi and wheezes in the lower lobes consistent with history of COPD but no signs of respiratory distress Cardio regular rhythm Rate: tachycardic and other Other Details: Slightly tachycardic rate with regular rhythm Radial and carotid pulses are equal and symmetric GI normal to inspection, nondistended, normoactive bowel sounds, non-tender, non- distended and no masses GI Narrative: No voluntary guarding or rigidity or pulsatile mass No overlying abrasions or ecchymosis noted Auscultation: normoactive bowel sounds Palpation: soft Back/Spine Back/Spine Narrative: No bony deformity or step-off of the thoracic or lumbar spine However there is mild midline pain with palpation of the lower lumbar region Extremity Extremity Narrative: Pelvis is stable there is no shortening or external rotation of either lower extremity Patient does have pain on palpation along the greater trochanter of the right hip; however there is no overlying abrasions or ecchymosis; no bony deformity or joint effusion Patient can move upper extremities without pain or difficulty No signs of long bone injury such as bony deformity or joint effusion All compartments are soft and compressible going against compartment syndrome Neuro CN's II-XII intact bilaterally Neuro Narrative: Patient is slightly obtunded as he appears sleepy but will awaken to voice. This could be related to him taking his nighttime medications of gabapentin and melatonin and Requip. He is alert to person and time There is no obvious focal neurologic deficit noted Sensorium / Orientation: orientation impaired Psych Psych Narrative: Patient has a depressed/sleepy affect Mood & Affect: depressed Skin no rashes or lesions noted, no wounds and No skin turgor normal Skin Narrative: No abrasions or ecchymosis noted to suggest trauma Skin turgor is increased General Skin Exam: Negative for jaundice or pallor MDM MDM MDM Narrative Medical decision making narrative: Patient arrived to the ER just slightly tachycardic but overall stable vitals. He is slightly obtunded as he appears sleeping and this could be medication related or potentially secondary to traumatic subarachnoid or subdural hemorrhage. [facility] staff was contacted and states they have not cared for this patient before but believe that he is typically more alert and oriented according to previous notes. With the fact he is on Eliquis and had a unwi tnessed fall in order to rule out skull fracture or brain bleed cervical spine compression fracture lumbar compression fracture or long bone injury such as pubic rami or femoral neck fracture multiple CTs were obtained. The patient's significant other arrived and states that he is more altered than his baseline and with concern this could be related to potential infectious process or acute on chronic kidney disease or hyperammonemia I did elect to perform basic laboratory studies at this time. The patient's urine sample does show findings consistent with infection as the cath urine sample resulted +1 bacteria with greater than 100 white cells and 500 leukocyte esterase. Therefore it will be sent for culture and he was started on Rocephin. The patient is afebrile and normotensive and his white count is normal without left shift going against sepsis. The remainder of his labs showed no sign of acute on chronic kidney injury or hyperammonemia indicating that the depression in his mental status is delirium from the UTI. However as he does not have signs of acute kidney injury or urosepsis and vitals are stable and imaging studies revealed no signs of internal trauma I feel he can be discharged back [facility] the [facility] where he can be placed on antibiotics and watched. History & Record Review Discussion w/independent historian: Patient and Significant other Lab Data Attestation: I reviewed the patient's lab results. Labs: Laboratory Results - last 24 hr 08/06/25 08/06/25 02:32 03:05 WBC 9.8 RBC 3.85 L Hgb 8.3 L Hct 27.6 L MCV 71.7 L MCH 21.6 L MCHC 30.1 L RDW Std Deviation 52.9 H RDW Coeff of Tiffany 20.6 H Plt Count 350 MPV 9.2 Immature Gran % (Auto) 0.400 Neut % (Auto) 67.9 Lymph % (Auto) 22.6 Liberty % (Auto) 5.8 Eos % (Auto) 3.0 Baso % (Auto) 0.3 Absolute Neuts (auto) 6.6 Absolute Lymphs (auto) 2.21 Nucleated RBC % 0 Sodium 140 Potassium 3.7 Chloride 105 Carbon Dioxide 23.7 Anion Gap 11 BUN 20 H Creatinine 1.03 Estim Creat Clear Calc 51.74 Est GFR (MDRD) Non-Af 75 BUN/Creatinine Ratio 19.7 Glucose 116 H Calcium 9.1 Total Bilirubin 0.23 Direct Bilirubin 0.10 AST 23 ALT 13 Alkaline Phosphatase 174 H Ammonia < 10.0 L Total Protein 8.0 Albumin 3.2 L Globulin 4.9 H Urine Color Yellow Urine Clarity Cloudy Urine pH 6.0 Ur Specific Rowley 1.010 Urine Protein 100 H Urine Glucose (UA) Normal Urine Ketones Negative Urine Occult Blood 25 H Urine Nitrite Negative Urine Bilirubin Negative Urine Urobilinogen Normal Ur Leukocyte Esterase 500 H Urine RBC 0-5 SEEN Urine WBC >100 SEEN Ur Squamous Epith Cells 0-5 SEEN Urine Bacteria 1+ Urine Mucus 0 SEEN Radiography Diagnostic Testing: Clinical Impression(s) from Imaging Studies Brain CT 08/06/25 01:08 IMPRESSION: No acute intracranial CT abnormality. Stable chronic intracranial findings, as described above. Reading Location: [id number] Cervical Spine CT 08/06/25 01:08 IMPRESSION: No CT evidence for acute abnormality. [facility] Extrem[facility] 08/06/25 01:08 IMPRESSION: No CT evidence of an acute abnormality. [facility] Lumbar Spine CT 08/06/25 01:08 IMPRESSION: No CT evidence of an acute traumatic abnormality. Reading Location: [id number] Discharge Plan Triage Chief Complaint: Fall ED Provider: Tej Amado Dx/Rx/DC Orders Clinical Impression: Accidental fall, Urinary tract infection, Delirium, Current use of jail anticoagulation, Chronic anemia Instructions: Urinary Tract Infections in Men, What is Delirium? Prescriptions: New cephalexin 500 mg capsule 500 mg PO TID 7 Days Qty: 21 0RF No Action gabapentin 300 MG capsule 300 mg PO TID cyclobenzaprine 10 mg Tablet 10 mg PO TID PRN (Reason: muscle spasms) amlodipine 5 mg Tablet 10 mg PO QHS budesonide-formoterol [Symbicort] 80-4.5 mcg/actuation Hfa Aerosol Inhaler 2 puff INHALATION BID aspirin 81 mg Tablet,Delayed Release (Dr/Ec) 81 mg PO DAILY sildenafil 100 mg Tablet 100 mg PO DAILY PRN (Reason: Erectile Dysfunction) atorvastatin 80 mg tablet 80 mg PO QHS Qty: 90 0RF insulin aspart U-100 [Novolog FlexPen U-100 Insulin] 100 unit/mL (3 mL) insulin pen 10 unit subcut TIDCM ropinirole 1 mg tablet 1 mg PO QHS insulin glargine [Lantus Solostar U-100 Insulin] 100 unit/mL (3 mL) insulin pen 10 unit subcut QPM Rx Instructions: PT STATES USES 10-15U QHS magnesium hydroxide [Gentle Laxative (mag hydrox)] 400 mg/5 mL suspension 5 ml PO DAILY PRN (Reason: constipation) sennosides-docusate sodium [Senna with Docusate Sodium] 8.6-50 mg tablet 2 tab-cap PO DAILY melatonin 3 mg tablet 3 mg PO QHS polyethylene glycol 3350 17 gram powder in packet 17 g PO DAILY ferrous sulfate [Feosol] 325 mg (65 mg iron) tablet 325 mg PO .every other day lidocaine 5 % adhesive patch,medicated 2 patch topical DAILY PRN (Reason: pain) Rx Instructions: leave on most painful area for up to 12 hrs cyclopentolate 2 % drops 1 drp LEFT EYE QHS calcium carbonate 500 mg calcium (1,250 mg) tablet 1,500 mg PO DAILY polyvinyl alcohol-povidone 1.4-0.6 % drops 1 drp ophthalmic (eye) 4X/DAY Rx Instructions: 1 drop each eye; pantoprazole [Protonix] 40 mg tablet,delayed release (DR/EC) 40 mg PO DAILY prednisolone acetate 1 % drops,suspension 1 drp LEFT EYE Q6H tiotropium-olodaterol 2.5-2.5 mcg/actuation mist 2 puff inhalation DAILY nicotine [Nicoderm CQ] 14 mg/24 hr patch 24 hour 1 patch transdermal DAILY Rx Instructions: apply every morning and remove at HS albuterol 90 mcg/actuation aerosol 90 mcg inhalation Q4H PRN oxycodone 5 mg tablet 2.5 mg PO Q6H PRN (Reason: pain) 3 Days Qty: 7 0RF acetaminophen 500 mg Tablet 1,000 mg PO Q8 PRN (Reason: fever or pain) Rx Instructions: 1 g every 8 hourly for 1 week and then Q8 hourly as needed for severe pain Eliquis 5 mg Tablet 2.5 mg PO Q12H Rx Instructions: Start from 07/08/2025. Discontinue if platelet count drops less than 50,000 or hemoglobin less than 8 g% Primary Care Provider: Hubert Hagen Referrals: Hubert Hagen MD [Primary Care Provider] - Activity Restrictions/Additional Instructions: Your workup today reveals no sign of underlying trauma such as skull fracture or brain bleed or broken bones. You do have a urinary tract infection but there is no sign of sepsis from this. The patient's mental status will be altered secondary to the UTI as this is causing delirium. However as the infection clears over the next few days mental status will return to normal. If there are any further concerns or worsening of symptoms please return to the ER for repeat evaluation. Print Language: Romanian Disposition Disposition: Home, Self Care
[2025-08-06 02:40] LABS: Mucous, Urine 0 SEEN /hpf (<or=2+)
[2025-08-06 02:42] LABS: Color, Urine Yellow (Yellow); Glucose, Dipstick Normal (Normal); Ketone-Dipstick Negative (Negative); Leukocyte Esterase-Dipstick 500 /ul (Negative); Nitrite-Dipstick Negative (Negative); Occult Blood-Urine 25 /ul (Negative); Protein-Dipstick 100 mg/dl (Negative); Specific Gravity, Urine 1.010 (1.002-1.030); Urine Bilirubin Dipstick Negative (Negative)
[2025-08-06 02:46] VITALS: BP 136/83; PULSE 104; RESP 18; O2SAT 100
[2025-08-06] MEDS: 0.9% Normal Saline (500mL Bag) 500 ML 999 ML IV (03:06)
[2025-08-06 03:07] LABS: Squamous Epithelial Cells - UA 0-5 SEEN /hpf (0-5)
[2025-08-06 03:09] LABS: Red Blood Cells-Urine 0-5 SEEN /hpf (0-5)
[2025-08-06 03:21] LABS: Hematocrit 27.6 % (40-54); Hemoglobin 8.3 g/dL (13.0-16.5); Immature Granulocytes Count 0.040 X10^3/uL (0.0-0.0); Mean Corp Hgb Conc 30.1 g/dL (32-36); Mean Corpuscular Volume 71.7 fL (80-94); Mean Platelet Vol. 9.2 fl (6.2-12.0); NRBC Flagged by Analyzer 0 % (0-5); POSITIVE MORPHOLOGY YES; Platelet Count 350 K/mm3 (150-450); RBC Distribution Width CV 20.6 % (11.6-14.6); RBC Distribution Width SD 52.9 fl (35.1-43.9); Red Blood Count 3.85 M/mm3 (4.6-6.2); White Blood Count 9.8 K/mm3 (4.4-11.0)
[2025-08-06 03:23] LABS: Differential Indicated SCAN CRITERIA MET
[2025-08-06 04:00] VITALS: BP 152/83; PULSE 103; RESP 18; O2SAT 95
[2025-08-06 04:08] LABS: AST(SGOT) 23 U/L (<=37); Alanine Aminotransfer ALT/SGPT 13 U/L (<=46); Albumin, Serum 3.2 g/dL (3.4-4.8); Alkaline Phosphatase 174 U/L (40-129); Ammonia < 10.0 umol/L (16-60); Anion Gap 11 (5-15); BUN 20 mg/dL (4-19); BUN/Creat Ratio 19.7 RATIO (10-20); Bilirubin, Direct 0.10 mg/dL (0.00-0.30); Calcium,Total 9.1 mg/dL (7.6-11.0); Carbon Dioxide 23.7 mmol/L (21.0-32.0); Chloride 105 mmol/L (98-108); Estimated Creatinine Clearance 51.74 ml/min (50-250); Globulin 4.9 g/dL (2.2-4.2); Glucose 116 mg/dL (70-99); Potassium 3.7 mmol/L (3.3-5.1)
[2025-08-06 04:23] VITALS: BP 152/83; PULSE 100; RESP 18; TEMP 36.6; O2SAT 95
--- NOTE | 2025-08-06 04:27 | ED.RN ---
Report called to Nora.
[2025-08-06 04:29] LABS: Anisocytosis 2+
[2025-08-06 04:32] LABS: Schistocytes RARE; Target Cells RARE
[2025-08-06 04:34] LABS: Differential Comment SCANNED; Polychromasia RARE
[2025-08-06 06:00] VITALS: BP 145/79; PULSE 100; RESP 18; O2SAT 94
== END 2025-08-06 07:52 | disposition home or self-care (01) ==
PROVIDERS: Emergency Provider Emergency Medicine; PCP Family Medicine; Visit Provider Emergency Medicine
DX: R41.0 Disorientation, unspecified (principal); J44.9 Chronic obstructive pulmonary disease, unspecified; E11.22 Type 2 diabetes mellitus with diabetic chronic kidney disease; E11.40 Type 2 diabetes mellitus with diabetic neuropathy, unspecified; Z79.4 Long term (current) use of insulin; N39.0 Urinary tract infection, site not specified; Z87.891 Personal history of nicotine dependence; D64.9 Anemia, unspecified; Z79.01 Long term (current) use of anticoagulants; Z85.118 Personal history of other malignant neoplasm of bronchus and lung; I12.9 Hypertensive chronic kidney disease with stage 1 through stage 4 chronic kidney disease, or unspecified chronic kidney disease; N18.9 Chronic kidney disease, unspecified; Z86.73 Personal history of transient ischemic attack (TIA), and cerebral infarction without residual deficits; Z79.82 Long term (current) use of aspirin; Z79.899 Other long term (current) drug therapy; K21.9 Gastro-esophageal reflux disease without esophagitis; Z90.49 Acquired absence of other specified parts of digestive tract; W06.XXXA Fall from bed, initial encounter; Y92.129 Unspecified place in nursing home as the place of occurrence of the external cause
CPT/HCPCS: 70450; 72125; 72131; 73700; 80048; 80076; 81001; 82140; 85025; 87077; 87086; 87088; 87186; 96365; 99285

== ENCOUNTER 2025-08-15 20:17 | Inpatient (IN) | payer OTHER, SELFPAY ==
[2025-08-15] VITALS (8 sets, daily range): BP systolic 111–137; BP diastolic 67–82; PULSE 115–137; RESP 22–25; TEMP 37.7–39.1; O2SAT 94–97; BMI 18.7
--- OUTSIDE RECORDS SUMMARY | 2025-08-15 20:36 | XMS RPT_ITS | CCD ---
Author Organization [facility] Care Team Providers Care Steel Fixer Name Role Phone Dr. Steven Tejeda DO Emergency Provider Adithya WILDLIFE TECHNICIAN-C, Carlene Hamm Primary Care Provider Dr. Steven Tejeda DO Attending Provider Dr. Ike Dawson DO Emergency Provider Dr. Ike Dawson DO Attending Provider [phone] Monty Clarke MD Emergency Provider Dr. Lane Stanley DO Admit Provider [phone] Dr. Lane Stanley DO Attending Provider Dr. Lane Stanley DO Other Provider Dr. Anthony Salgado MD Attending Provider Dr. Anthony Salgado MD Other Provider Dr. Johanne Evans MD Admit Provider Cristina HERBERT, Dr. Johanne Jordan Attending Provider Dr. Johanne Evans MD Other Provider Dr. Nuno Campbell MD Other Provider Elvira HERBERT, Dr. Ivey Other Provider Unavailable Elvira HERBERT, Dr. Ivey Attending Provider Unavaila ble Dr. Steven Tejeda DO Attending Provider Dr. Steven Tejeda DO Emergency Provider Adithya WILDLIFE TECHNICIAN-C, Carlene N Primary Care Provider Eunice BYRNES, Dr. Ramires Attending Provider [phone] Eunice BYRNES, Dr. Ramires Emergency Provider Vince HERBERT, Dr. Millan Emergency Provider Lizeth BYRNES, Dr. Sherman Admit Provider [phone] Lizeth DO, Dr. Sherman Other Provider Damian HERBERT, Dr. Cruz Attending Provider Damian HERBERT, Dr. Cruz Other Provider [phone] Cristina HERBERT, Dr. Johanne Jordan Admit Provider Cristina HERBERT, Dr. Johanne Jordan Other Provider [phone] Adrian HERBERT, Dr. Reina Other Provider Elvira HERBERT, Dr. Ivey Other Provider Unavailable Elvira HERBERT, Dr. Ivey Attending Provider Unavaila ble Vince HERBERT, Dr. Millan Attending Provider Andtodd BYRNES, Dr. Burnham Emergency Provider Hieu HERBERT, Dr. Gaspar Primary Care Provider Mosteller, Lane Consulting Unavailable Mosteller, Lane Admitting Unavailable Adithya, Carlene N Primary Care Unavailable Damian, Anthony Attending Unavailable Monty Clarke Attending Unavailable Adithya, Carlene N Primary Care Unavailable Hubert Hagen Primary Care Unavailable Tej Amado Attending Unavailable Cristina, Johanne L Admitting Unavailable Cristina, Johanne L Consulting Unavailable Adithya, Carlene N Primary Care Unavailable Damian, Anthony Attending Unavailable Nuno Campbell Consulting Unavailable Uche Felix Consulting Unavailable Damian, Anthony Consulting Unavailable Mosteller, Lane Attending Unavailable Mosteller, Lane Consulting Unavailable Mosteller, Lane Admitting Unavailable Adithya, Carlene N Primary Care Unavailable Damian, Anthony Attending Unavailable Damian, Anthony Consulting Unavailable Johanne Evans L Attending Unavailable Uche Felix Attending Unavailable [facility] Primary Care Unavailable Juvencio Shen Attending Unavailable Steven Tejeda Attending Unavailable Adithya, Carlene N Primary Care Unavailable Adithya, Carlene N Primary Care Unavailable Ike Dawson Attending Unavailable White, Johanne L Admitting Unavailable White Johanne L Consulting Unavailable Adithya, Carlene N Primary Care Unavailable Anthony Salgado Attending Unavailable Nuno Campbell Consulting Unavailable Uche Felix Consulting Unavailable Medications Current Medications Medication Drug Class(es) Dates Sig (Normalized) Sig (Original) acetaminophen 500 mg oral tablet (7 sources) Start: 07-07-2025 End: 08-06-2025 Start: 07-04-2025 End: 07-07-2025 Albuterol 90 mcg/actuation aerosol (2 sources) Start: 07-04-2025 take 90 ug by inhalation every four hours as needed Albuterol 90 mcg/actuation aerosol Active 90 ug INHALATION EVERY 4 HOURS NEEDED July 04, 2025 12:00am sob apixaban 5 mg oral tablet (4 sources) Factor Xa Inhibitor Start: 07-07-2025 End: 08-06-2025 calcium carbonate 1250 mg oral tablet (3 sources) Start: 07-04-2025 cephalexin 500 mg oral capsule (1 source) Cephalosporin Antibacterial Start: 08-06-2025 cyclobenzaprine hydrochloride 10 mg oral tablet (8 sources) Muscle Relaxant Start: 05-09-2021 cyclopentolate hydrochloride 20 mg/ml ophthalmic solution (3 sources) Start: 07-04-2025 Start: 07-04-2025 take 2 drop(s) into the eye(s) at bedtime Cyclopentolate 2 % drops Active 1 NMA LEFT EYE AT BEDTIME July 04, 2025 12:00am inflamation docusate sodium 50 mg / zoe osides, detention 8.6 mg oral tablet (3 sources) Start: 07-04-2025 Start: 07-04-2025 Sennosides-Doc usate Sodium (Senna With Docusate Sodium) 8.6- 50 mg tablet Active 2 NMA PO DAILY July 04, 2025 12:00am stool softener ferrous sulfate 325 mg oral tablet (2 sources) Start: 07-04-2025 take 1 tablet by mouth every other day Ferrous Sulfate (Feosol) 325 mg (65 mg iron) tablet Active 325 mg PO .every other day July 04, 2025 12:00am supplement 3 ml insulin aspart, human 100 unt/ml pen injector (8 sources) Insulin Analog Start: 12-12-2024 Start: 12-12-2024 Insulin Aspart U-100 (Novolog Flexpen U-100 Insulin) 100 unit/mL (3 mL) insulin pen Active 10 U SC 3 TIMES DAILY WITH MEALS December 12, 2024 1:00am DM Start: 12-12-2024 Insulin Aspart U-100 (Novolog Flexpen U-100 Insulin) 100 unit/mL (3 mL) insulin pen Active SC December 12, 2024 1:00am 3 ml insulin glargine 100 un t/ml pen injector (7 sources) Insulin Analog Start: 05-04-2025 Start: 05-04-2025 Insulin Glargi ne (Lantus Solostar U-100 Insulin) 100 unit/mL (3 mL) insulin pen Active 10 U SC EVERY EVENING May 04, 2025 12:00am Dm PT STATES USES 10-15U QHS lidocaine 0.05 mg/mg medicated patch (3 sources) Antiarrhythmic, Amide Local Anesthetic Start: 07-04-2025 Magnesium Hydroxide (6 sources) Start: 05-04-2025 take 1 mL by mouth once daily as needed for constipation Magnesium Hydroxide (Gentle Laxative (Mag Hydrox)) 400 mg/5 mL suspension Active 5 mL PO DAILY as needed for constipation May 04, 2025 12:00am melatonin 3 mg oral tablet (3 sources) Start: 07-04-2025 Start: 07-04-2025 take 1 tablet by mouth at bedt jennifer Melatonin 3 mg tablet Active 3 mg PO AT BEDTIME July 04, 2025 12:00am sleep 24 hr nicotine 0.583 mg/hr transdermal system (3 sources) Cholinergic Nicotinic Agonist Start: 07-04-2025 Start: 07-04-2025 apply 1 dose transde rmal route every twenty-four hours at bedtime Nicotine (Nicoderm Cq) 14 mg/24 hr patch 24 hour Active 1 NMA TD DAILY July 04, 2025 12:00am smoking cessation apply every morning and remove at HS Tiotropium-Olodaterol (3 sources) Anticholinergic, beta2-Adrenergic Agonist Start: 07-04-2025 Start: 07-04-2025 Tiotropium-Olo daterol 2.5-2.5 mcg/actuation mist Active 2 NMA INHALATION DAILY July 04, 2025 12:00am asthma oxyCODONE hydrochloride 5 mg oral tablet (6 sources) Opioid Agonist Start: 07-04-2025 End: 07-07-2025 Start: 07-04-2025 End: 07-07-2025 take 1 tablet by mouth every six hours as needed for pain Oxycodone 5 mg tablet Discontinued 5 mg PO EVERY 6 HOURS as needed for pain 0 July 04, 2025 12:00am July 07, 2025 3:14pm pantoprazole 40 mg delayed release oral tablet (3 sources) Proton Pump Inhibitor Start: 07-04-2025 polyethylene glycol 3350 95178 mg powder for oral solution (3 sources) Osmotic Laxative Start: 07-04-2025 Polyvinyl Alcohol-Povidone 1.4-0.6 % drops (2 sources) Start: 07-04-2025 Polyvinyl Alcohol-Povidone 1.4-0.6 % drops Active 1 NMA OPHTHALMIC 4 TIMES DAILY July 04, 2025 12:00am dry eye 1 drop each eye; prednisoLONE acetate 10 mg/ml ophthalmic suspension (3 sources) Corticosteroid Start: 07-04-2025 rOPINIRole 1 mg oral tablet (7 sources) Nonergot Dopamine Agonist Start: 05-04-2025 sildenafil 100 mg oral tablet (8 sources) Phosphodiesterase 5 Inhibitor Start: 05-09-2021 (6 sources) Start: 07-04-2025 Start: 05-04-2025 Start: 05-09-2021 End: 05-04-2025 Start: 05-09-2021 End: 05-04-2025 Completed/Discontinued Medications Medication Drug Class(es) Dates Sig (Normalized) Sig (Original) albuterol 2 UNITS (7 sources) Start: 05-09-2021 End: 05-04-2025 albuterol 2 UNITS Discontinued 2 NMA NASAL Q4H as needed for SOB May 09, 2021 12:00am May 04, 2025 11:33am Start: 05-09-2021 albuterol 2 UN ITS Active 2 NMA NASAL Q4H as needed for SOB May 09, 2021 12:00am amLODIPine 5 mg oral tablet (16 sources) Dihydropyridine Calcium Channel Juvenal Start: 05-09-2021 End: 12-12-2024 Start: 05-09-2021 take 2 tablets by mo [facility] at bedtime Amlodipine 5 mg Tablet Active 10 mg PO AT BEDTIME May 09, 2021 12:00am blood pressure Aspirin (16 sources) Platelet Aggregation Inhibitor, Nonstero idal Anti-inflammatory Drug Start: 06-13-2024 End: 12-12-2024 Start: 06-13-2024 End: 12-12-2024 take 1 capsule by mouth once daily Aspirin 81 mg capsule Discontinued 81 mg PO DAILY 30 0 June 13, 2024 12:00am December 12, 2024 12:10pm Start: 05-09-2021 atorvastatin 80 mg oral tabl et (20 sources) HMG-CoA Reductase Inhibitor Start: 05-12-2021 End: 12-12-2024 Start: 05-09-2021 End: 05-12-2021 Start: 05-09-2021 End: 05-12-2021 take 1 tablet by mouth at bedtime Atorvastatin 20 mg Tablet Discontinued 20 mg PO AT BEDTIME May 09, 2021 12:00am May 12, 2021 10:09am cholesterol Budesonide-Formoterol (16 sources) Corticosteroid, beta2-Adrenergic Agonist Start: 2023 End: 12-12-2024 Start: 06-13-2024 End: 12-12-2024 Budesonide-Formoterol (Symbi kojo) 80-4.5 mcg/actuation HFA aerosol inhaler Discontinued 2 NMA INHALATION TWICE A DAY 10.2 0 June 13, 2024 12:00am December 12, 2024 12:10pm Start: 06-13-2024 End: 12-12-2024 Budesonide-Formoterol (Symbi kojo) 80-4.5 mcg/actuation HFA aerosol inhaler Discontinued 2 NMA INHALATION TWICE A DAY 10.2 June 13, 2024 12:00am December 12, 2024 12:10pm Start: 05-09-2021 Start: 05-09-2021 Budesonide-For moterol (Symbicort) 80-4.5 mcg/actuation Hfa Aerosol Inhaler Active 2 NMA INHALATION TWICE A DAY May 09, 2021 12:00am COPD Start: 05-09-2021 Budesonide-For moterol (Symbicort) 80-4.5 mcg/actuation Hfa Aerosol Inhaler Active 2 NMA INHALATION TWICE A DAY May 09, 2021 12:00am diazePAM 2 mg oral tablet (8 sources) Benzodiazepine Start: 04-24-2025 End: 05-11-2025 gabapentin 300 mg oral capsu le (16 sources) Anti-epileptic Agent Start: 02-24-2015 End: 12-12-2024 glipiZIDE 5 mg oral tablet (16 sources) Sulfonylurea Start: 02-24-2015 End: 12-12-2024 Start: 02-24-2015 End: 12-12-2024 take 8 mg by mouth once daily Glipizide 5 MG tablet Di scontinued 8 mg PO DAILY February 24, 2015 12:00am December 12, 2024 12:11pm diabetes ibuprofen 800 mg oral tablet (7 sources) Nonsteroidal Anti-inflammatory Drug Start: 05-04-2025 End: 05-11-2025 losartan potassium 50 mg ora l tablet (16 sources) Angiotensin 2 Receptor Juvenal Start: 05-09-2021 End: 05-11-2025 mecobalamin 1 mg chewable tablet (8 sources) Start: 05-09-2021 End: 05-04-2025 metFORMIN hydrochloride 1000 mg oral tablet (16 sources) Biguanide Start: 06-13-2024 End: 12-12-2024 Start: 05-09-2021 End: 12-12-2024 traMADol hydrochloride 50 mg oral tablet (7 sources) Opioid Agonist Start: 05-04-2025 End: 05-11-2025 traZODone hydrochloride 50 m g oral tablet (8 sources) Serotonin Reuptake Inhibitor Start: 05-09-2021 End: 05-04-2025 Start: 05-09-2021 End: 05-04-2025 Trazodone 50 mg Tablet Disco ntinued 25 mg PO AT BEDTIME May 09, [...] Problem Date Documented Date Episodic/Chronic Abdominal pain (16 sources) Abdominal pain; Translations: [Unspecified abdominal pain] 2024 Episodic Acute cerebrovascular disease (8 sources) Cerebrovascular accident; Translations: [Cerebral infarction, unspecified] 05-11-2021 Chronic Anxiety disorders (9 sources) Anxiety; Translations: [Anxiety disorder, unspecified] Onset: 5 12-20-2024 Chronic Cancer of bronchus; lung (20 sources) Malignant tumor of lung; Translations: [Malignant neoplasm of unspecified part of right bronchus or lung] Onset: 5 04-23-2025 Chronic Cardiac dysrhythmias (8 sources) Nonsustained ventricular tachycardia ; Translations: [Nonsustained ventricular tachycardia] 05-20-2021 Chronic Cardiac dysrhythmias (12 sources) ECG: sinus tachycardia; Translations: [Tachycardia, unspecified] 05-11-2025 Episodic Deficiency and other anemia (8 sources) Anemia; Translations: [Anemia, unspecified] 04-23-2025 Episodic Deficiency and other anemia (13 sources) Chronic anemia; Translations: [Anemia, unspecified] 05-11-2025 Episodic Deficiency and other anemia (12 sources) Microcytic anemia; Translations: [Iron deficiency anemia, unspecified] 05-11-2025 Episodic Deficiency and other anemia (1 source) Anemia, unspecified; Translations: [Anemia, unspecified] Onset: Episodic Diabetes mellitus with complications (8 sources) Hyperglycemia due to diabetes mellitus; Translations: [Type 2 diabetes mellitus with hyperglycemia] 12-20-2024 Chronic Diabetes mellitus without complication (8 sources) Diabetes mellitus; Translations: [Type 2 diabetes mellitus without complications] 2024 Chronic Diabetes mellitus without complication (8 sources) Hyperglycemia; Translations: [Hyperglycemia, unspecified] 06-21-2024 Episodic E Codes: Fall (17 sources) Fall; Translations: [Unspecified fall, initial encounter] Onset: 5 05-04-2025 Episodic Fracture of neck of femur (hip) (10 sources) Closed intertrochanteric fracture; Translations: [Displaced intertrochanteric fracture of right femur, initial encounter for closed fracture] Onset: 5 07-03-2025 Episodic Genitourinary symptoms and ill-defined conditions (3 sources) Blood in urine; Translations: [Hematuria, unspecified] Onset: 5 07-08-2025 Episodic Nonspecific chest pain (8 sources) Chest pain; Translations: [Chest pain, unspecified] 05-20-2021 Episodic Other aftercare (1 source) Long-term current use of anticoagulant; Translations: [shelter (current) use of anticoagulants] 08-06-2025 Episodic Other connective tissue disease (2 sources) History of repair of hip joint; Translations: [Presence of right artificial hip joint] 07-08-2025 Chronic Other injuries and conditions due to external causes (7 sources) Closed injury of head; Translations: [Unspecified injury of head, initial encounter] 05-04-2025 Episodic Other lower respiratory disease (12 sources) Dyspnea on exertion; Translations: [Other forms of dyspnea] 05-11-2025 Episodic Other nervous system disorders (8 sources) Neuropathy; Translations: [Polyneuropathy, unspecified] 06-21-2024 Chronic Other nervous system disorders (8 sources) H/O: Disorder; Translations: [Personal history of other diseases of the nervous system and sense organs] 12-20-2024 Episodic Other nervous system disorders (2 sources) Postoperative pain ; Translations: [Other acute postprocedural pain] 07-08-2025 Episodic Other nutritional; endocrine; and metabolic disorders (12 sources) Hypercalcemia; Translations: [Hypercalcemia] 05-11-2025 Chronic Other nutritional; endocrine; and metabolic disorders (1 source) Hypercalcemia; Translations: [Hypercalcemia] Onset: Chronic Other screening for suspected conditions (not mental disorders or infectious disease) (12 sources) Raised cardiac enzyme or marker; Translations: [Other specified abnormal findings of blood chemistry] 05-11-2025 Episodic Pneumonia (except that caused by tuberculosis or sexually transmitted disease) (13 sources) Postobstructive pneumonia; Translations: [Pneumonia, unspecified organism] Onset: 5 05-11-2025 Episodic Residual codes; unclassified (1 source) Delirium; Translations: [Disorientation, unspecified] 08-06-2025 Episodic Residual codes; unclassified (1 source) Disorientation, unspecified; Translations: [Disorientation, unspecified] Onset: Episodic Sprains and strains (7 sources) Strain of neck muscle; Translations: [Strain of muscle, fascia and tendon at neck level, initial encounter] 05-04-2025 Episodic Superficial injury; contusion (14 sources) Contusion of chest; Translations: [Contusion of unspecified front wall of thorax, initial encounter] 05-04-2025 Episodic Urinary tract infections (1 source) Urinary tract infectious disease; Translations: [Urinary tract infection, site not specified] 08-06-2025 Episodic Past or Other Problems Problem Classification Problem Date Documented Da te Episodic/Chronic Conditions associated with dizziness or vertigo (16 sources) Dizziness; Translations: [Dizziness and giddiness] Onset: 04-27-2025 04-23-2025 Episodic Other injuries and conditions due to external causes (1 source) Unspecified injury of head, initial encounter; Translations: [Unspecified injury of head, initial encounter] Onset: 05-06-2025 Episodic Results Test Name Value Interpretation Reference Range Facility Urine Cultureon 08-09-2025 [facility] Urine Culture Escherichia coli [place] Count <1000 Escherichia coli: REACTION Ampicillin Islt RODRIGUEZ >=32 Ampicillin+Sulbac Islt RODRIGUEZ 16 I Cefepime Islt RODRIGUEZ <=0.12 S cefTRIAXone Islt RODRIGUEZ <=0.25 S Ciprofloxacin Islt RODRIGUEZ >=4 R B-Lactamase Extended Susc Islt NEG Gentamicin Islt RODRIGUEZ >=16 R levoFLOXacin Islt RODRIGUEZ >=8 R Meropenem Islt RODRIGUEZ <=0.25 S Nitrofurantoin Islt RODRIGUEZ <=16 S Pip+Tazo Islt RODRIGUEZ <=4 S TMP SMX Islt RODRIGUEZ >=320 R Normal [facility] Comment on above: Performed By: #### L 400.0001 #### [facility] [address] [place], [address] Absolute lymphocyte countOrd ered By: Tej Amado on 08-06-2025 Lymphocytes Auto (Unsp spec) [#/Vol] 2.21 10*3/uL 0.83-4.51 [facility] Ammoniaon 09-12-2025 Ammonia (P) [Mass/Vol] ug/dL Low 16-60 [facility] Comment on above: Performed By: #### L 503.5510, L500.3400, L500.2500, L100.0100 #### [facility] [address] [place], [address] Anion gap in Serum or Plasma Ordered By: Tej Amado on 08-06-2025 Anion gap [Moles/Vol] 11 mmol/L - [facility] Automated lymphocyte count a s percentage of total leukocytesOrdered By: Tej Amado on 08-06-2025 Lymphocytes/100 WBC Auto (Unsp spec) 22.6 % [facility] BUN/creatinine ratioOrdered By: Tej Amado on 08-06-2025 Urea nitrogen/Creatinine [Mass ratio] 19.7 mg/mg - [facility] Basic Metabolic Profile (BMP )on 08-06-2025 BUN/CRE 19.7 RATIO Normal - [facility] Comment on above: Performed By: #### L 503.5510, L500.3400, L500.2500, L100.0100 #### [facility] [address] [place], [address] Calcium [Mass/Vol] 9.1 mg/dL Normal 7.6-11.0 [facility] Comment on above: Performed By: #### L [id number], L500.3400, L500.2500, L100.0100 #### [facility] [address] [place], [address] Chloride [Moles/Vol] 105 mmol/L Normal 98-108 [facility] Comment on above: Performed By: #### L 503.5510, L500.3400, L500.2500, L100.0100 #### [facility] [address] [place], [address] CO2 [Moles/Vol] 23.7 mmol/L Normal 21.0-32.0 [facility] Comment on above: Performed By: #### L 503.5510, L500.3400, L500.2500, L100.0100 #### [facility] [address] [place], [address] Creatinine [Mass/Vol] 1.03 mg/dL Normal 0.70-1.20 [facility] Comment on above: Performed By: #### L 503.5510, L500.3400, L500.2500, L100.0100 #### [facility] [address] [place], [address] ECRCL 51.74 ml/min Normal 50-250 [facility] Comment on above: Performed By: #### L [id number], L500.3400, L500.2500, L100.0100 #### [facility] [address] [place], [address] GAP 11 Normal 5-15 [facility] Comment on above: Performed By: #### L [id number], L500.3400, L500.2500, L100.0100 #### [facility] [address] [place], [address] GFR/1.73 sq M.predicted among non-blacks MDRD (S/P/Bld) [Vol rate/Area] 75 mL/min/{1.73_m2} Normal >60 [facility] Comment on above: Result Comment: mL/m in/1.73m2 CKD-EPI Creatinine Equation (2020) Performed By: #### L 503.5510, L500.3400, L500.2500, L100.0100 #### [facility] [address] [place], [address] Glucose [Mass/Vol] 116 mg/dL High 70-99 [facility] Comment on above: Performed By: #### L [id number], L500.3400, L500.2500, L100.0100 #### [facility] [address] [place], [address] Potassium [Moles/Vol] 3.7 mmol/L Normal 3.3-5.1 [facility] Comment on above: Performed By: #### L [id number], L500.3400, L500.2500, L100.0100 #### [facility] [address] [place], [address] Sodium [Moles/Vol] 140 mmol/L Normal 133-145 [facility] Comment on above: Performed By: #### L [id number], L500.3400, L500.2500, L100.0100 #### [facility] [address] [place], [address] Urea nitrogen [Mass/Vol] 20 mg/dL High 4-19 [facility] Comment on above: Performed By: #### L 503.5510, L500.3400, L500.2500, L100.0100 #### [facility] [address] [place], [address] Basophil percentageOrdered B y: Tej Amado on 08-06-2025 Basophils/100 WBC (Bld) 0.3 % 0-1 [facility] Bilirubin Test strip Ql (U)O rdered By: Tej Amado on 08-06-2025 Bilirubin Ql (U) Negative Negative [facility] Bilirubin directOrdered By: Tej Amado on 08-06-2025 Bilirubin.direct [Mass/Vol] 0.10 mg/dL 0.00-0.30 [facility] Bilirubin, totalOrdered By: Tej Amado on 08-06-2025 Bilirubin [Mass/Vol] 0.23 mg/dL 0.00-1.30 [facility] Blood manual differential co mment interpretation (narrative result)Ordered By: Tej Amado on 08-06-2025 Manual differential comment Refugio (Bld) [Interp] SCANNED [facility] Blood polychromasia detectio n by light microscopyOrdered By: Tej Amado on 08-06-2025 Polychromasia LM Ql (Bld) [facility] Blood schistocyte detection by light microscopyOrdered By: Tej Amado on 08-06-2025 Schistocytes LM Ql (Bld) [facility] Brain/Head without Contrasto n 08-06-2025 Brain/Head without Contrast [facility] Imaging Services [address] [place] [address] Brain/Head without Contrast MR#: [id number] Acct: [id number] Name: ITZEL ALONZO Rep #: [id number] : [id number] M 75 From: Rafy Plata MD PCP: Dr. Hubert Hagen MD Status: REG ER Study: Brain/Head without Contrast Date of Exam: 07/26 01/19 Exam# [id number] Ordering Dr: Tej Amado DO PROCEDURE: BRAIN/HEAD WITHOUT CONTRAST 08/06/2025 REASON FOR EXAM: FALL TECHNIQUE: Procedure Code: CTBR Modality: CT Procedure: BRAIN/HEAD WITHOUT CONTRAST Coronal and Sagittal reconstruction series were provided. One or more dose reduction techniques were used (e.g., Automated exposure control, adjustment of the mA and/or kV according to patient size, use of iterative reconstruction technique. COMPARISON: 05/12/2025. FINDINGS: No acute intracranial hemorrhage. 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 Mild generalized atrophy, unchanged. No fracture. The calvarium is intact. CT/Brain/Head without Contrast IMPRESSION: No acute intracranial CT abnormality. Stable chronic intracranial findings, as described above. Reading Location: [facility] CC: Dr. Hubert Hagen MD; Tej Amado DO Drier Operator Head: Signed Normal [facility] CBC W/Diff, Automatedon 07-26 POLYCHROMASIA [facility] Comment on above: Performed By: #### L [id number], L500.3400, L500.2500, L100.0100 #### [facility] [address] [place], [address] SMEAR COMMENT SCANNED Normal [facility] Comment on above: Result Comment: ANIS CYTOSIS 2+ Performed By: #### L 503.5510, L500.3400, L500.2500, L100.0100 #### [facility] [address] [place], [address] SCHISTOCYTES RARE Normal [facility] Comment on above: Performed By: #### L 503.5510, L500.3400, L500.2500, L100.0100 #### [facility] [address] [place], [address] TARGET CELLS RARE Normal [facility] Comment on above: Performed By: #### L [id number], L500.3400, L500.2500, L100.0100 #### [facility] [address] [place], [address] Anisocytosis Ql (Bld) 2+ [facility] [facility] Comment on above: Performed By: #### L 503.5510, L500.3400, L500.2500, L100.0100 #### [facility] [address] [place], [address] [employer] Normal [facility] Comment on above: Performed By: #### L 503.5510, L500.3400, L500.2500, L100.0100 #### [facility] [address] [place], [address] Carbon dioxide, total [Moles /volume] in Central venous bloodOrdered By: Tej Amado on 08-06-2025 CO2 [Moles/Vol] 23.7 mmol/L 21.0-32.0 [facility] Chloride assayOrdered By: Virgie Amado on 08-06-2025 Chloride [Moles/Vol] 105 mmol/L 98-108 [facility] Emergency Department Summary on 08-06-2025 Emergency Department Summary [facility] Medical Records Department [address] [place] [address] Emergency Department Summary 08/06/25 MR#: [id number] Acct: [id number] Name: ITZEL ALONZO Rep #: [id number] : 1950 75 From: Tej Amado DO PCP: Dr. Hubert Hagen MD Status:REG ER Location: ED HPI History of Present Illness Chief Complaint: Fall Informant: patient and SNF Narrative Narrative: Patient is a 75-year-old male from the care home with past medical history of lung cancer chronic anemia hypertension chronic kidney disease and cirrhosis. He is on 2.5 mg of Eliquis twice a day secondary to previous TIA/CVA. retirement staff reports that this evening he was found laying partially in his bed and out of it. They state that he was found with his waist/legs in the bed and his body hanging over the edge towards the floor. They state there appeared to be no sign of injury but he is on the blood thinner and there was concern for this so he was sent in for evaluation. Upon arrival the patient is sleepy but will awaken to voice and is oriented to person and year. However care home reports they felt his mental status was more diminished than at his baseline. The patient reports pain in his hip and low back but otherwise has no complaints. [facility] Medical History Fall Closed intertrochanteric fracture of right hip CKD (chronic kidney disease), stage II Chronic [...] asthma 07/02/25 History mcg/actuation mist for inhalation oxycodone 5 mg tablet 2.5 mg (1/2 x 5 mg) PO Q6H PRN Unknown Rx pain 3 days #7 tabs acetaminophen 500 mg tablet 1,000 mg PO Q8 PRN fever or pain 0 08/06/25 Unknown History apixaban 5 mg tablet (Eliquis) 2.5 mg PO Q12H (more content not included)... Normal [facility] Eosinophil percentageOrdered By: Tej Amado on 08-06-2025 Eosinophils/100 WBC (Bld) 3.0 % 0-5 [facility] Erythrocyte distribution wid th ratioOrdered By: Tej Amado on 08-06-2025 Erythrocyte distribution width (RBC) [Ratio] 20.6 % High 11.6-14.6 [facility] Erythrocyte distribution wid th standard deviationOrdered By: Tej Amado on 08-06-2025 Erythrocyte distribution width (RBC) [Ratio] 52.9 fl High 35.1-43.9 [facility] Extremity Lower without Cont raon 08-06-2025 Extremity Lower without Contra [facility] Imaging Services [address] [place] [address] Extremity Lower without Contra MR#: [id number] Acct: [id number] Name: ITZEL ALONZO Rep #: [id number] : 1950 M 75 From: Sarita hamm MD PCP: Dr. Hubert Hagen MD Status: REG ER Study: Extremity Lower without Contra Date of Exam: 0 08/06/25 Exam# [id number] Ordering Dr: Tej Amado DO PROCEDURE: EXTREMITY LOWER WITHOUT CONTRA 08/06/2025 REASON FOR EXAM: PAIN TECHNIQUE: Procedure Code: CTELWO Modality: CT Procedure: EXTREMITY LOWER WITHOUT CONTRA Coronal and Sagittal reconstruction series were provided. CONTRAST: None. One or more dose reduction techniques were used (e.g., Automated exposure control, adjustment of the mA and/or kV according to patient size, use of iterative reconstruction technique). RADIATION DOSE SUMMARY: CTDlvol: 16.85 mGy DLP: 575 mGycm COMPARISON: CT scan on 07/03/2025. FINDINGS: Mild osteopenia. Mild degenerative joint disease. Open reduction internal fixation of right intertrochanteric fracture in good alignment. No lytic or blastic aggressive bone lesion is noted. CT/Extremity Lower without Contra IMPRESSION: No CT evidence of an acute abnormality. Reading Location: [place] [address] CC: Dr. Hubert Hagen MD; Tej Amado DO Drier Operator Head: Signed Normal [facility] Glomerular filtration rate ( GFR) estimation/1.73 sq m using serum, plasma, or whole bOrdered By: Tej Amado on 08-06-2025 GFR/1.73 sq M.predicted among non-blacks MDRD (S/P/Bld) [Vol rate/Area] 75 mL/min/{1.73_m2} >60 [facility] Hematocrit Auto (Bld) [Volum e fraction]Ordered By: Tej Amado on 08-06-2025 Hematocrit (Bld) [Volume fraction] 27.6 % Low 40-54 [facility] Hemoglobin measurementOrdere d By: Tej Amado on 08-06-2025 Hemoglobin (Bld) [Mass/Vol] 8.3 g/dL Low 13.0-16.5 [facility] Immature granulocytes/100 WB C Auto (Bld)Ordered By: Tej Amado on 08-06-2025 Immature granulocytes/100 WBC (Bld) 0.400 % 0.0-0.9 [facility] Ketones Test strip Ql (U)Ord ered By: Tej Amado on 08-06-2025 Ketones Ql (U) Negative Negative [facility] Liver Profileon 08-06-2025 Albumin [Mass/Vol] 3.2 g/dL Low 3.4-4.8 [facility] Comment on above: Performed By: #### L 503.5510, L500.3400, L500.2500, L100.0100 #### [facility] [address] [place], [address] ALK PHOS 174 U/L High 40-129 [facility] Comment on above: Performed By: #### L 503.5510, L500.3400, L500.2500, L100.0100 #### [facility] [address] [place], [address] ALT [Catalytic activity/Vol] 13 U/L Normal <=46 [facility] Comment on above: Performed By: #### L 503.5510, L500.3400, L500.2500, L100.0100 #### [facility] [address] [place], [address] AST [Catalytic activity/Vol] 23 U/L Normal <=37 [facility] Comment on above: Performed By: #### L 503.5510, L500.3400, L500.2500, L100.0100 #### [facility] [address] [place], [address] Bilirubin [Mass/Vol] 0.23 mg/dL Normal 0.00-1.30 [facility] Comment on above: Performed By: #### L 503.5510, L500.3400, L500.2500, L100.0100 #### [facility] [address] [place], [address] Bilirubin.direct [Mass/Vol] 0.10 mg/dL Normal 0.00-0.30 [facility] Comment on above: Performed By: #### L 503.5510, L500.3400, L500.2500, L100.0100 #### [facility] [address] [place], [address] Globulin (S) [Mass/Vol] 4.9 g/dL High 2.2-4.2 [facility] Comment on above: Performed By: #### L 503.5510, L500.3400, L500.2500, L100.0100 #### [facility] [address] [place], [address] T PROT 8.0 g/dL Normal 5.9-8.4 [facility] Comment on above: Performed By: #### L 503.5510, L500.3400, L500.2500, L100.0100 #### [facility] [address] [place], [address] MCV (mean corpuscular volume ) determinationOrdered By: Tej Amado on 08-06-2025 MCV (RBC) [Entitic vol] 71.7 fL Low 80-94 [facility] Mean corpuscular hemoglobin (MCH) determinationOrdered By: Tej Amdao on 08-06-2025 MCH (RBC) [Entitic mass] 21.6 pg Low 27.0-32.0 [facility] Monocyte percentageOrdered B y: Tej Amado on 08-06-2025 Monocytes/100 WBC (Bld) 5.8 % 0-10 [facility] Mucus LM Ql (Urine sed)Order ed By: Tej Amado on 08-06-2025 Mucus Ql (Urine sed) 0 SEEN /hpf [facility] Neutrophil percentageOrdered By: Tej Amado on 08-06-2025 Neutrophils/100 WBC (Bld) 67.9 % 47-70 [facility] Nitrite Test strip Ql (U)Ord ered By: Tej Amado on 08-06-2025 Nitrite Ql (U) Negative Negative [facility] No Panel InformationOrdered By: Tej Amado on 08-06-2025 2+ [facility] 23 U/L <38 [facility] Ovalocyte detectionOrdered B y: Tej Amado on 08-06-2025 Ovalocytes LM Ql (Bld) RARE [facility] Platelet countOrdered By: Virgie Amado on 08-06-2025 Platelets (Bld) [#/Vol] 350 10*3/uL 150-450 [facility] Potassium measurement (mass/ volume)Ordered By: Tej Amado on 08-06-2025 Potassium (Unsp spec) [Mass/Vol] 3.7 mmol/L 3.3-5.1 [facility] Protein Test strip Ql (U)Ord ered By: Tej Amado on 08-06-2025 Protein Ql (U) 100 mg/dl High Negative [facility] RBC Auto (Bld) [#/Vol]Ordere d By: Tej Amado on 08-06-2025 RBC (Bld) [#/Vol] 3.85 10*6/uL Low 4.6-6.2 [facility] Serum creatinine measurement (mass/volume)Ordered By: Tej Amado on 08-06-2025 Creatinine [Mass/Vol] 1.03 mg/dL 0.70-1.20 [facility] Serum globulin measurementOr dered By: Tej Amado on 08-06-2025 Globulin (S) [Mass/Vol] 4.9 g/dL High 2.2-4.2 [facility] Serum glucose measurement (m ass/volume)Ordered By: Tej Amado on 08-06-2025 Glucose [Mass/Vol] 116 mg/dL High 70-99 [facility] Serum or plasma alanine stahl otransferase (ALT) measurementOrdered By: Tej Amado on 08-06-2025 ALT [Catalytic activity/Vol] 13 U/L <47 [facility] Serum or plasma albumin ivania urement (mass/volume)Ordered By: Tej Amado on 08-06-2025 Albumin [Mass/Vol] 3.2 g/dL Low 3.4-4.8 [facility] Serum or plasma alkaline brittany sphatase measurementOrdered By: Tej Amado on 08-06-2025 ALP [Catalytic activity/Vol] 174 U/L High 40-129 [facility] Serum or plasma calcium ivania urement (mass/volume)Ordered By: Tej Amado on 08-06-2025 Calcium [Mass/Vol] 9.1 mg/dL 7.6-11.0 [facility] Serum or plasma urea nitroge n measurement (mass/volume)Ordered By: Tej Amado on 08-06-2025 Urea nitrogen [Mass/Vol] 20 mg/dL High 4-19 [facility] Sodium levelOrdered By: Marco Antonio Amado on 08-06-2025 Sodium [Moles/Vol] 140 mmol/L 133-145 [facility] Spine Cervical without Contr ason 08-06-2025 Spine Cervical without Contras [facility] Imaging Services [address] [place] [address] Spine Cervical without Contras MR#: [id number] Acct: [id number] Name: ITZEL ALONZO Rep #: [id number] : 1950 75 From: Sarita hamm MD PCP: Dr. Hubert Hagen MD Status: REG ER Study: Spine Cervical without Contras Date of Exam: 0 08/06/25 Exam# [id number] Ordering Dr: Tej Amado DO PROCEDURE: SPINE CERVICAL WITHOUT CONTRAS 08/06/2025 REASON FOR EXAM: FALL TECHNIQUE: Procedure Code: CTSPC Modality: CT Procedure: SPINE CERVICAL WITHOUT CONTRAS Coronal and Sagittal reconstruction series were provided. One or more dose reduction techniques were used (e.g., Automated exposure control, adjustment of the mA and/or kV according to patient size, use of iterative reconstruction technique. RADIATION DOSE SUMMARY: CTDlvol: 13.68 mGy DLP: 546 mGycm COMPARISON: 05/04/2025. FINDINGS: There are diffuse spondylotic changes. Findings are demonstrated to by diffuse disc space narrowing, osteophyte formation and degenerative endplate sclerosis. There is diffuse facet joint arthropathy with secondary bilateral neural foramina narrowing. No fracture or dislocation is seen. No aggressive lytic or blastic bony lesion is noted. Unchanged right upper lobe pulmonary mass. CT/Spine Cervical without Contras IMPRESSION: No CT evidence for acute abnormality. Reading Location: [place] [address] CC: Dr. Hubert Hagen MD; Tej Amado DO Drier Operator Head: Signed Normal [facility] Spine Lumbar without Contras ton 08-06-2025 Spine Lumbar without Contrast [facility] Imaging Services [address] [place] [address] Spine Lumbar without Contrast MR#: [id number] Acct: [id number] Name: ITZEL ALONZO Rep #: [id number] : 1950 M 75 From: Sarita hamm MD PCP: Dr. Hubert Hagen MD Status: REG ER Study: Spine Lumbar without Contrast Date of Exam: Exam# [id number] Ordering Dr: Tej Amado DO PROCEDURE: SPINE LUMBAR WITHOUT CONTRAST 08/06/2025 REASON FOR EXAM: FALL TECHNIQUE: Procedure Code: CTSPL Modality: CT Procedure: SPINE LUMBAR WITHOUT CONTRAST Coronal and Sagittal reconstruction series were provided. One or more dose reduction techniques were used (e.g., Automated exposure control, adjustment of the mA and/or kV according to patient size, use of iterative reconstruction technique COMPARISON: None. RADIATION DOSE SUMMARY: CTDlvol: 12.24 mGy DLP: 308 mGycm FINDINGS: Mild osteopenia. There are diffuse spondylotic changes. Findings are demonstrated to by diffuse disc space narrowing, osteophyte formation and degenerative endplate sclerosis. There is diffuse facet joint arthropathy with secondary bilateral neural foramina narrowing. No fracture or dislocation is seen. No aggressive lytic or blastic bony lesion is noted. Moderate arthrosis. Calcified atheromatous plaques of the aorta and iliac arteries. CT/Spine Lumbar without Contrast IMPRESSION: No CT evidence of an acute traumatic abnormality. Reading Location: [place] [address] CC: Dr. Hubert Hagen MD; Tej Amado DO Drier Operator Head: Signed Normal [facility] Squamous epithelial cells de tection in urine sediment by light microscopyOrdered By: Tej Amado on 08-06-2025 Epithelial cells.squamous LM Ql (Urine sed) 0-5 SEEN /hpf 0-5 [facility] Target cell detectionOrdered By: Tej Amado on 08-06-2025 Target cells LM Ql (Bld) RARE [facility] Total proteinOrdered By: Andres Amado on 08-06-2025 Protein [Mass/Vol] 8.0 g/dL 5.9-8.4 [facility] Urinalysis, Completeon 08-06 RBC 0-5 SEEN Normal 0-5 [facility] Comment on above: Order Comment: ADRIÁN CTOR TO SPECIFY Performed By: #### L 400.0001 #### [facility] [address] [place], [address] BACTERIA 1+ /hpf Normal None Seen [facility] Comment on above: Order Comment: ADRIÁN CTOR TO SPECIFY Performed By: #### L 400.0001 #### [facility] [address] [place], [address] EPI,SQUAMOUS 0-5 SEEN Normal 0-5 [facility] Comment on above: Order Comment: ADRIÁN CTOR TO SPECIFY Performed By: #### L 400.0001 #### [facility] [address] [place], [address] WBC >100 SEEN Normal 0-5 [facility] Comment on above: Order Comment: ADRIÁN CTOR TO SPECIFY Performed By: #### L 400.0001 #### [facility] [address] [place], [address] Mucus Ql (Urine sed) 0 SEEN Normal [facility] Comment on above: Order Comment: ADRIÁN CTOR TO SPECIFY Performed By: #### L 400.0001 #### [facility] [address] [place], [address] Urine clarityOrdered By: Andres Amado on 08-06-2025 Clarity (U) Cloudy Clear [facility] Urine color determinationOrd ered By: Tej Amado on 08-06-2025 Color (U) Yellow Yellow [facility] Urine glucose detectionOrder ed By: Tej Amado on 08-06-2025 Glucose Ql (U) Normal mg/dl Normal [facility] Urine leukocyte esterase det ection by dipstickOrdered By: Tej Amado on 08-06-2025 Leukocyte esterase Test strip Ql (U) 500 /ul High Negative [facility] Urine pHOrdered By: Tej judd on 08-06-2025 pH (U) 6.0 [pH] 5.0 - 8.0 [facility] Urine sediment bacteria coun t by microscopy (number/high power field)Ordered By: Tej Amado on 08-06-2025 Bacteria LM.HPF (Urine sed) [#/Area] 1 /[HPF] None Seen [facility] Urine specific gravity measu rementOrdered By: Tej Amado on 08-06-2025 Specific gravity (U) [Rel density] 1.010 1.002-1.030 [facility] Urine urobilinogen measureme ntOrdered By: Tej Amado on 08-06-2025 Urobilinogen Ql (U) Normal mg/dl Normal [facility] White blood cell (WBC) count Ordered By: Tej Amado on 08-06-2025 WBC (Bld) [#/Vol] 9.8 10*3/uL 4.4-11.0 [facility] White blood cell countOrdere d By: Tej Amado on 08-06-2025 White blood cell count >100 SEEN /hpf 0-5 [facility] Absolute lymphocyte countOrd ered By: Marissa Rivera on 07-08-2025 Lymphocytes Auto (Unsp spec) [#/Vol] 1.42 10*3/uL 0.83-4.51 [facility] Absolute neutrophil countOrd ered By: Marissa Rivera on 07-08-2025 Neutrophils (Bld) [#/Vol] 6.6 10*3/uL 2.0-7.7 [facility] Anion gap in Serum or Plasma Ordered By: Marissa Rivera on 07-08-2025 Anion gap [Moles/Vol] 9 mmol/L 5-15 [facility] Automated lymphocyte count a s percentage of total leukocytesOrdered By: Marissa Rivera on 07-08-2025 Lymphocytes/100 WBC Auto (Unsp spec) 16.1 % Low 19-41 [facility] BUN/creatinine ratioOrdered By: Marissa Rivera on 07-08-2025 Urea nitrogen/Creatinine [Mass ratio] 20.9 mg/mg High 09-13 [facility] Basic Metabolic Profile (BMP )on 07-08-2025 BUN/CRE 20.9 RATIO High 09-13 [facility] Comment on above: Performed By: #### L 503.5510, L500.3400, L500.2500, L100.0100 #### [facility] [address] [place], [address] Calcium [Mass/Vol] 9.1 mg/dL Normal 7.6-11.0 [facility] Comment on above: Performed By: #### L 503.5510, L500.3400, L500.2500, L100.0100 #### [facility] [address] [place], [address] Chloride [Moles/Vol] 102 mmol/L Normal 98-108 [facility] Comment on above: Performed By: #### L 503.5510, L500.3400, L500.2500, L100.0100 #### [facility] [address] [place], [address] CO2 [Moles/Vol] 23.9 mmol/L Normal 21.0-32.0 [facility] Comment on above: Performed By: #### L 503.5510, L500.3400, L500.2500, L100.0100 #### [facility] [address] [place], [address] Creatinine [Mass/Vol] 0.93 mg/dL Normal 0.70-1.20 [facility] Comment on above: Performed By: #### L 503.5510, L500.3400, L500.2500, L100.0100 #### [facility] [address] [place], [address] ECRCL 70.28 ml/min Normal 50-250 [facility] Comment on above: Performed By: #### L 503.5510, L500.3400, L500.2500, L100.0100 #### [facility] [address] [place], [address] GAP 9 Normal 5-15 [facility] Comment on above: Performed By: #### L 503.5510, L500.3400, L500.2500, L100.0100 #### [facility] [address] [place], [address] GFR/1.73 sq M.predicted among non-blacks MDRD (S/P/Bld) [Vol rate/Area] 85 mL/min/{1.73_m2} Normal >60 [facility] Comment on above: Result Comment: mL/m in/1.73m2 CKD-EPI Creatinine Equation (2020) Performed By: #### L 503.5510, L500.3400, L500.2500, L100.0100 #### [facility] [address] [place], [address] Glucose [Mass/Vol] 210 mg/dL High 70-99 [facility] Comment on above: Performed By: #### L 503.5510, L500.3400, L500.2500, L100.0100 #### [facility] [address] [place], [address] Potassium [Moles/Vol] 4.3 mmol/L Normal 3.3-5.1 [facility] Comment on above: Performed By: #### L 503.5510, L500.3400, L500.2500, L100.0100 #### [facility] [address] [place], [address] Sodium [Moles/Vol] 135 mmol/L Normal 133-145 [facility] Comment on above: Performed By: #### L 503.5510, L500.3400, L500.2500, L100.0100 #### [facility] [address] [place], [address] Urea nitrogen [Mass/Vol] 19 mg/dL Normal 4-19 [facility] Comment on above: Performed By: #### L 503.5510, L500.3400, L500.2500, L100.0100 #### [facility] [address] [place], [address] Basophil percentageOrdered B y: Marissa Rivera on 07-08-2025 Basophils/100 WBC (Bld) 0.2 % 0-1 [facility] Bilirubin Test strip Ql (U)O rdered By: Marissa Rivera on 07-08-2025 Bilirubin Ql (U) Negative Negative [facility] Blood manual differential co mment interpretation (narrative result)Ordered By: Marissa Rivera on 07-08-2025 Manual differential comment Refugio (Bld) [Interp] SCANNED [facility] CBC W/Diff, Automatedon 06-25 Anisocytosis Ql (Bld) 2+ Normal [facility] Comment on above: Performed By: #### L 503.5510, L500.3400, L500.2500, L100.0100 #### [facility] [address] [place], [address] SMEAR COMMENT SCANNED Normal [facility] Comment on above: Performed By: #### L 503.5510, L500.3400, L500.2500, L100.0100 #### [facility] [address] [place], [address] Carbon dioxide, total [Moles /volume] in Central venous bloodOrdered By: Marissa Rivera on 07-08-2025 CO2 [Moles/Vol] 23.9 mmol/L 21.0-32.0 [facility] Chloride assayOrdered By: Sophy Rivera on 07-08-2025 Chloride [Moles/Vol] 102 mmol/L 98-108 [facility] Emergency Department Summary on 07-08-2025 Emergency Department Summary [facility] Medical Records Department [address] [place] [address] Emergency Department Summary 07/08/25 MR#: [id number] Acct: [id number] Name: ITZEL ALONZO Rep #: [id number] : 1950 75 From: Monty Clarke MD PCP: Carlene Haji WILDLIFE TECHNICIAN-C Status:REG ER Location: ED HPI History of Present Illness Chief Complaint: Complaint Narrative Narrative: 75-year-old male with PMH of HTN, HLD, DM2, cirrhosis, anemia had a traumatic hip fracture with surgical fixation on 07/04/[address] Nuno Campbell. He was discharged to [facility]. He states this morning he started to have blood in his urine prompting his visit. He also states they are giving him Tylenol and it is not managing his hip pain well. He denies fever or chills, nausea or vomiting, or abdominal or flank pain. He was discharged on Eliquis 2.5 mg twice daily. [facility] Medical History CKD (chronic kidney disease), [...] (Reviewed 07/04 (more content not included)... Normal [facility] Eosinophil percentageOrdered By: Marissa Rivera on 07-08-2025 Eosinophils/100 WBC (Bld) 0.9 % 0-5 [facility] Erythrocyte distribution wid th ratioOrdered By: Marissa Rivera on 07-08-2025 Erythrocyte distribution width (RBC) [Ratio] 22.5 % High 11.6-14.6 [facility] Erythrocyte distribution wid th standard deviationOrdered By: Marissa Rivera on 07-08-2025 Erythrocyte distribution width (RBC) [Ratio] 56.8 fl High 35.1-43.9 [facility] Glomerular filtration rate ( GFR) estimation/1.73 sq m using serum, plasma, or whole bOrdered By: Marissa Rivera on 07-08-2025 GFR/1.73 sq M.predicted among non-blacks MDRD (S/P/Bld) [Vol rate/Area] 85 mL/min/{1.73_m2} >60 [facility] Comment on above: mL/min/1.73m2 CKD-EP I Creatinine Equation (2020) Hematocrit Auto (Bld) [Volum e fraction]Ordered By: Marissa Rivera on 07-08-2025 Hematocrit (Bld) [Volume fraction] 26.8 % Low 40-54 [facility] Hemoglobin measurementOrdere d By: Marissa Rivera on 07-08-2025 Hemoglobin (Bld) [Mass/Vol] 8.6 g/dL Low 13.0-16.5 [facility] Immature granulocytes/100 WB C Auto (Bld)Ordered By: Marissa Rivera on 07-08-2025 Immature granulocytes/100 WBC (Bld) 0.300 % 0.0-0.9 [facility] Comment on above: IG% - Immature Granu locytes (promyelocytes, myelocytes and metamyelocytes) > 1% indicates that a LEFT SHIFT is Present. Ketones Test strip Ql (U)Ord ered By: Marissa Rivera on 07-08-2025 Ketones Ql (U) Negative Negative [facility] - Hematology and Cell countsOrdered By: Marissa Rivera on 07-08-2025 Anisocytosis Ql (Bld) 2+ [facility] MCV (mean corpuscular volume ) determinationOrdered By: Marissa Rivera on 07-08-2025 MCV (RBC) [Entitic vol] 71.5 fL Low 80-94 [facility] Mean corpuscular hemoglobin (MCH) determinationOrdered By: Marissa Rivera on 07-08-2025 MCH (RBC) [Entitic mass] 22.9 pg Low 27.0-32.0 [facility] Mean corpuscular hemoglobin concentration (MCHC) determinationOrdered By: Marissa Rivera on 07-08-2025 MCHC (RBC) [Mass/Vol] 32.1 g/dL 32-36 [facility] Mean platelet volume determi nationOrdered By: Marissa Rivera on 07-08-2025 Platelet mean volume (Bld) [Entitic vol] 9.6 fL 6.2-12.0 [facility] Microscopic analysis of urin e for red blood cells (RBC)Ordered By: Marissa Rivera on 07-08-2025 Microscopic analysis of urine for red blood cells (RBC) 10-25 SEEN /hpf 0-5 [facility] Monocyte percentageOrdered B y: Marissa Rivera on 07-08-2025 Monocytes/100 WBC (Bld) 7.2 % 0-10 [facility] Mucus LM Ql (Urine sed)Order ed By: Marissa Rivera on 07-08-2025 Mucus Ql (Urine sed) 0 SEEN /hpf [facility] Neutrophil percentageOrdered By: Marissa Rivera on 07-08-2025 Neutrophils/100 WBC (Bld) 75.3 % High 47-70 [facility] Nitrite Test strip Ql (U)Ord ered By: Marissa Rivera on 07-08-2025 Nitrite Ql (U) Negative Negative [facility] No Panel InformationOrdered By: Marissa Rivera on 07-08-2025 2+ [facility] Nucleated red blood cell per centageOrdered By: Marissa Rivera on 07-08-2025 Nucleated RBC/100 WBC (Bld) [Ratio] 0 % 0-5 [facility] Platelet countOrdered By: Sophy Rivera on 07-08-2025 Platelets (Bld) [#/Vol] 250 10*3/uL 150-450 [facility] Potassium measurement (mass/ volume)Ordered By: Marissa Rivera on 07-08-2025 Potassium (Unsp spec) [Mass/Vol] 4.3 mmol/L 3.3-5.1 [facility] Protein Test strip Ql (U)Ord ered By: Marissa Rivera on 07-08-2025 Protein Ql (U) 100 mg/dl High Negative [facility] RBC Auto (Bld) [#/Vol]Ordere d By: Marissa Rivera on 07-08-2025 RBC (Bld) [#/Vol] 3.75 10*6/uL Low 4.6-6.2 [facility] Serum creatinine measurement (mass/volume)Ordered By: Marissa Rivera on 07-08-2025 Creatinine [Mass/Vol] 0.93 mg/dL 0.70-1.20 [facility] Serum glucose measurement (m ass/volume)Ordered By: Marissa Rivera on 07-08-2025 Glucose [Mass/Vol] 210 mg/dL High 70-99 [facility] Serum or plasma calcium ivania urement (mass/volume)Ordered By: Marissacarlie Rivera on 07-08-2025 Calcium [Mass/Vol] 9.1 mg/dL 7.6-11.0 [facility] Serum or plasma urea nitroge n measurement (mass/volume)Ordered By: Marissa Rivera on 07-08-2025 Urea nitrogen [Mass/Vol] 19 mg/dL 4-19 [facility] Sodium levelOrdered By: Marissa Rivera on 07-08-2025 Sodium [Moles/Vol] 135 mmol/L 133-145 [facility] Squamous epithelial cells de tection in urine sediment by light microscopyOrdered By: Marissa Rivera on 07-08-2025 Epithelial cells.squamous LM Ql (Urine sed) 0 SEEN /hpf 0-5 [facility] Urinalysis, Completeon 07-08 RBC 10-25 SEEN Normal 0-5 [facility] Comment on above: Order Comment: CLEAN CATCH Performed By: #### L 400.0001 #### [facility] [address] [place], [address] BACTERIA 0 SEEN Normal None Seen [facility] Comment on above: Order Comment: CLEAN CATCH Performed By: #### L [id number] #### [facility] [address] [place], [address] EPI,SQUAMOUS 0 SEEN Normal 0-5 [facility] Comment on above: Order Comment: CLEAN CATCH Performed By: #### L [id number] #### [facility] [address] [place], [address] Mucus Ql (Urine sed) 0 SEEN Normal [facility] Comment on above: Order Comment: CLEAN CATCH Performed By: #### L [id number] #### [facility] [address] [place], [address] WBC 0 SEEN Normal 0-5 [facility] Comment on above: Order Comment: CLEAN CATCH Performed By: #### L [id number] #### [facility] [place] [address], [address] Urine clarityOrdered By: Ira Rivera on 07-08-2025 Clarity (U) Clear Clear [facility] Urine color determinationOrd ered By: Marissa Rivera on 07-08-2025 Color (U) Yellow Yellow [facility] Urine glucose detectionOrder ed By: Marissa Rivera on 07-08-2025 Glucose Ql (U) 100 mg/dl High Normal [facility] Urine leukocyte esterase det ection by dipstickOrdered By: Marissa Rivera on 07-08-2025 Leukocyte esterase Test strip Ql (U) Negative Negative [facility] Urine pHOrdered By: Marissa rowland on 07-08-2025 pH (U) 6.5 [pH] 5.0 - 8.0 [facility] Urine sediment bacteria coun t by microscopy (number/high power field)Ordered By: Marissa Rivera on 07-08-2025 Bacteria LM.HPF (Urine sed) [#/Area] 0 /[HPF] None Seen [facility] Urine specific gravity measu rementOrdered By: Marissa Rivera on 07-08-2025 Specific gravity (U) [Rel density] 1.010 1.002-1.030 [facility] Urine urobilinogen measureme ntOrdered By: Marissa Rivera on 07-08-2025 Urobilinogen Ql (U) Normal mg/dl Normal [facility] White blood cell (WBC) count Ordered By: Marissa Rivera on 07-08-2025 WBC (Bld) [#/Vol] 8.8 10*3/uL 4.4-11.0 [facility] White blood cell countOrdere d By: Marissa Rivera on 07-08-2025 White blood cell count 0 SEEN /hpf 0-5 [facility] Absolute lymphocyte countOrd ered By: Uche Felix on 07-07-2025 Lymphocytes Auto (Unsp spec) [#/Vol] 1.99 10*3/uL 0.83-4.51 [facility] Absolute neutrophil countOrd ered By: Uche Felix on 07-07-2025 Neutrophils (Bld) [#/Vol] 7.5 10*3/uL 2.0-7.7 [facility] Anion gap in Serum or Plasma Ordered By: Uche Felix on 07-07-2025 Anion gap [Moles/Vol] 9 mmol/L 5-15 [facility] Automated lymphocyte count a s percentage of total leukocytesOrdered By: Uche Felix on 07-07-2025 Lymphocytes/100 WBC Auto (Unsp spec) 19.0 % [facility] BUN/creatinine ratioOrdered By: Uche Felix on 07-07-2025 Urea nitrogen/Creatinine [Mass ratio] 23.6 mg/mg High 09-13 [facility] Basic Metabolic Profile (BMP )on 07-07-2025 BUN/CRE 23.6 RATIO High 09-13 [facility] Comment on above: Performed By: #### L 503.5510, L500.3400, L500.2500, L100.0100 #### [facility] [address] [place], [address] Calcium [Mass/Vol] 8.7 mg/dL Normal 7.6-11.0 [facility] Comment on above: Performed By: #### L 503.5510, L500.3400, L500.2500, L100.0100 #### [facility] [address] [place], [address] Chloride [Moles/Vol] 104 mmol/L Normal 98-108 [facility] Comment on above: Performed By: #### L 503.5510, L500.3400, L500.2500, L100.0100 #### [facility] [address] [place], [address] CO2 [Moles/Vol] 23.0 mmol/L Normal 21.0-32.0 [facility] Comment on above: Performed By: #### L 503.5510, L500.3400, L500.2500, L100.0100 #### [facility] [address] [place], [address] Creatinine [Mass/Vol] 0.90 mg/dL Normal 0.70-1.20 [facility] Comment on above: Performed By: #### L 503.5510, L500.3400, L500.2500, L100.0100 #### [facility] [address] [place], [address] ECRCL 58.14 ml/min Normal 50-250 [facility] Comment on above: Performed By: #### L 503.5510, L500.3400, L500.2500, L100.0100 #### [facility] [address] [place], [address] GAP 9 Normal 5-15 [facility] Comment on above: Performed By: #### L 503.5510, L500.3400, L500.2500, L100.0100 #### [facility] [address] [place], [address] GFR/1.73 sq M.predicted among non-blacks MDRD (S/P/Bld) [Vol rate/Area] 88 mL/min/{1.73_m2} Normal >60 [facility] Comment on above: Result Comment: mL/m in/1.73m2 CKD-EPI Creatinine Equation (2020) Performed By: #### L 503.5510, L500.3400, L500.2500, L100.0100 #### [facility] [address] [place], [address] Glucose [Mass/Vol] 186 mg/dL High 70-99 [facility] Comment on above: Performed By: #### L 503.5510, L500.3400, L500.2500, L100.0100 #### [facility] [address] [place], [address] Potassium [Moles/Vol] 4.4 mmol/L Normal 3.3-5.1 [facility] Comment on above: Performed By: #### L 503.5510, L500.3400, L500.2500, L100.0100 #### [facility] [address] [place], [address] Sodium [Moles/Vol] 136 mmol/L Normal 133-145 [facility] Comment on above: Performed By: #### L 503.5510, L500.3400, L500.2500, L100.0100 #### [facility] [address] [place], [address] Urea nitrogen [Mass/Vol] 21 mg/dL High 4-19 [facility] Comment on above: Performed By: #### L 503.5510, L500.3400, L500.2500, L100.0100 #### [facility] [address] [place], [address] Basophil percentageOrdered B y: Uche Felix on 07-07-2025 Basophils/100 WBC (Bld) 0.1 % 0-1 [facility] Bedside Glucoseon 07-07-2025 FINGERSTICK GLU 213 mg/dL High 74-106 [facility] Comment on above: Result Comment: BELLA GEMENT OF PATIENT CARE PER NURSING PROTOCOL Performed By: #### L 501.080 #### [facility] [address] [place], [address] FINGERSTICK GLU 208 mg/dL High 74-106 [facility] Comment on above: Result Comment: BELLA GEMENT OF PATIENT CARE PER NURSING PROTOCOL Performed By: #### L 501.080 #### [facility] [address] [place], [address] FINGERSTICK GLU 185 mg/dL High 74-106 [facility] Comment on above: Result Comment: BELLA GEMENT OF PATIENT CARE PER NURSING PROTOCOL Performed By: #### L 501.080 #### [facility] [address] [place], [address] Blood polychromasia detectio n by light microscopyOrdered By: Uche Felix on 07-07-2025 Polychromasia LM Ql (Bld) 1+ [facility] CBC W/Diff, Automatedon 06-25 Anisocytosis Ql (Bld) 1+ Normal [facility] Comment on above: Performed By: #### L 503.5510, L500.3400, L500.2500, L100.0100 #### [facility] [address] [place], [address] PLT EST ADEQUATE Normal ADEQ [facility] Comment on above: Performed By: #### L 503.5510, L500.3400, L500.2500, L100.0100 #### [facility] [address] [place], [address] POLYCHROMASIA 1+ Normal [facility] Comment on above: Performed By: #### L 503.5510, L500.3400, L500.2500, L100.0100 #### [facility] [address] [place], [address] Carbon dioxide, total [Moles /volume] in Central venous bloodOrdered By: Uche Felix on 07-07-2025 CO2 [Moles/Vol] 23.0 mmol/L 21.0-32.0 [facility] Chloride assayOrdered By: Jose De Jesus Felix on 07-07-2025 Chloride [Moles/Vol] 104 mmol/L 98-108 [facility] Eosinophil percentageOrdered By: Uche Felix on 07-07-2025 Eosinophils/100 WBC (Bld) 1.3 % 0-5 [facility] Erythrocyte distribution wid th ratioOrdered By: Uche Felix on 07-07-2025 Erythrocyte distribution width (RBC) [Ratio] 21.1 % High 11.6-14.6 [facility] Erythrocyte distribution wid th standard deviationOrdered By: Uche Felix on 07-07-2025 Erythrocyte distribution width (RBC) [Ratio] 54.1 fl High 35.1-43.9 [facility] Glomerular filtration rate ( GFR) estimation/1.73 sq m using serum, plasma, or whole bOrdered By: Uche Felix on 07-07-2025 GFR/1.73 sq M.predicted among non-blacks MDRD (S/P/Bld) [Vol rate/Area] 88 mL/min/{1.73_m2} >60 [facility] Comment on above: mL/min/1.73m2 CKD-EP I Creatinine Equation (2020) [facility] deOrdered By: Anthony Salgado on 07-07-2025 Glucose [Mass/Vol] 213 mg/dL High 74-106 [facility] Comment on above: MANAGEMENT OF PATIEN T CARE PER NURSING PROTOCOL Hematocrit Auto (Bld) [Volum e fraction]Ordered By: Uche Felix on 07-07-2025 Hematocrit (Bld) [Volume fraction] 25.6 % Low 40-54 [facility] Hemoglobin measurementOrdere d By: Uche Felix on 07-07-2025 Hemoglobin (Bld) [Mass/Vol] 8.0 g/dL Low 13.0-16.5 [facility] Immature granulocytes/100 WB C Auto (Bld)Ordered By: Uche Felix on 07-07-2025 Immature granulocytes/100 WBC (Bld) 0.400 % 0.0-0.9 [facility] Comment on above: IG% - Immature Granu locytes (promyelocytes, myelocytes and metamyelocytes) > 1% indicates that a LEFT SHIFT is Present. Laboratory - Hematology and Cell countsOrdered By: Uche Felix on 07-07-2025 Anisocytosis Ql (Bld) 1+ [facility] MCV (mean corpuscular volume ) determinationOrdered By: Uche Felix on 07-07-2025 MCV (RBC) [Entitic vol] 71.3 fL Low 80-94 [facility] Mean corpuscular hemoglobin (MCH) determinationOrdered By: Uche Felix on 07-07-2025 MCH (RBC) [Entitic mass] 22.3 pg Low 27.0-32.0 [facility] Mean corpuscular hemoglobin concentration (MCHC) determinationOrdered By: Uche Felix on 07-07-2025 MCHC (RBC) [Mass/Vol] 31.3 g/dL Low 32-36 [facility] Mean platelet volume determi nationOrdered By: Uche Felix on 07-07-2025 Platelet mean volume (Bld) [Entitic vol] 9.7 fL 6.2-12.0 [facility] Monocyte percentageOrdered B y: Uche Felix on 07-07-2025 Monocytes/100 WBC (Bld) 7.8 % 0-10 [facility] Neutrophil percentageOrdered By: Uche Felix on 07-07-2025 Neutrophils/100 WBC (Bld) 71.4 % High 47-70 [facility] No Panel InformationOrdered By: Uche Felix on 07-07-2025 1+ [facility] Nucleated red blood cell per centageOrdered By: Uche Felix on 07-07-2025 Nucleated RBC/100 WBC (Bld) [Ratio] 0 % 0-5 [facility] Platelet countOrdered By: Jose De Jesus Felix on 07-07-2025 Platelets (Bld) [#/Vol] 234 10*3/uL 150-450 [facility] Platelet estimateOrdered By: Uche Felix on 07-07-2025 Platelets LM Ql (Bld) ADEQUATE ADEQ [facility] Potassium measurement (mass/ volume)Ordered By: Uche Felix on 07-07-2025 Potassium (Unsp spec) [Mass/Vol] 4.4 mmol/L 3.3-5.1 [facility] RBC Auto (Bld) [#/Vol]Ordere d By: Uche Felix on 07-07-2025 RBC (Bld) [#/Vol] 3.59 10*6/uL Low 4.6-6.2 [facility] Serum creatinine measurement (mass/volume)Ordered By: Uche Felix on 07-07-2025 Creatinine [Mass/Vol] 0.90 mg/dL 0.70-1.20 [facility] Serum glucose measurement (m ass/volume)Ordered By: Uche Felix on 07-07-2025 Glucose [Mass/Vol] 186 mg/dL High 70-99 [facility] Serum or plasma calcium ivania urement (mass/volume)Ordered By: Uceh Felix on 07-07-2025 Calcium [Mass/Vol] 8.7 mg/dL 7.6-11.0 [facility] Serum or plasma urea nitroge n measurement (mass/volume)Ordered By: Uche Felix on 07-07-2025 Urea nitrogen [Mass/Vol] 21 mg/dL High 4-19 [facility] Sodium levelOrdered By: Tj Felix on 07-07-2025 Sodium [Moles/Vol] 136 mmol/L 133-145 [facility] White blood cell (WBC) count Ordered By: Uche Felix on 07-07-2025 WBC (Bld) [#/Vol] 10.5 10*3/uL 4.4-11.0 [facility] Basic Metabolic Profile (BMP )on 07-06-2025 BUN/CRE 21.0 RATIO High 10-20 [facility] Comment on above: Performed By: #### L 400.0001 #### [facility] [address] [place], [address] Calcium [Mass/Vol] 8.6 mg/dL Normal 7.6-11.0 [facility] Comment on above: Performed By: #### L 400.0001 #### [facility] [address] [place], [address] Chloride [Moles/Vol] 103 mmol/L Normal 98-108 [facility] Comment on above: Performed By: #### L 400.0001 #### [facility] [address] [place], [address] CO2 [Moles/Vol] 20.0 mmol/L Low 21.0-32.0 [facility] Comment on above: Performed By: #### L 400.0001 #### [facility] [address] [place], [address] Creatinine [Mass/Vol] 1.03 mg/dL Normal 0.70-1.20 [facility] Comment on above: Performed By: #### L 400.0001 #### [facility] [address] [place], [address] ECRCL 50.29 ml/min Normal 50-250 [facility] Comment on above: Performed By: #### L 400.0001 #### [facility] [address] [place], [address] GAP 11 Normal 5-15 [facility] Comment on above: Performed By: #### L 400.0001 #### [facility] [address] [place], [address] GFR/1.73 sq M.predicted among non-blacks MDRD (S/P/Bld) [Vol rate/Area] 75 mL/min/{1.73_m2} Normal >60 [facility] Comment on above: Result Comment: mL/m in/1.73m2 CKD-EPI Creatinine Equation (2020) Performed By: #### L 400.0001 #### [facility] [address] [place], [address] Glucose [Mass/Vol] 141 mg/dL High 70-99 [facility] Comment on above: Performed By: #### L 400.0001 #### [facility] [address] [facility], [address] Potassium [Moles/Vol] 3.7 mmol/L Normal 3.3-5.1 [facility] Comment on above: Performed By: #### L 400.0001 #### [facility] [address] [place], [address] Sodium [Moles/Vol] 134 mmol/L Normal 133-145 [facility] Comment on above: Performed By: #### L 400.0001 #### [facility] [address] [place], [address] Urea nitrogen [Mass/Vol] 22 mg/dL High 4-19 [facility] Comment on above: Performed By: #### L 400.0001 #### [facility] [address] [place], [address] Bedside Glucoseon 07-06-2025 FINGERSTICK GLU 183 mg/dL High [address] [place] [address] Comment on above: Result Comment: BELLA GEMENT OF PATIENT CARE PER NURSING PROTOCOL Performed By: #### L 503.5510, L500.3400, L500.2500, L100.0100 #### [facility] [address] [place], [address] FINGERSTICK GLU 213 mg/dL High [address] [place] [address] Comment on above: Result Comment: BELLA GEMENT OF PATIENT CARE PER NURSING PROTOCOL Performed By: #### L 400.0001 #### [facility] [address] [place], [address] FINGERSTICK GLU 189 mg/dL High [address] [place] [address] Comment on above: Result Comment: BELLA GEMENT OF PATIENT CARE PER NURSING PROTOCOL Performed By: #### L 503.5510, L500.3400, L500.2500, L100.0100 #### [facility] [address] [place], [address] FINGERSTICK GLU 142 mg/dL High [facility]106 [facility] Comment on above: Result Comment: BELLA GEMENT OF PATIENT CARE PER NURSING PROTOCOL Performed By: #### L 503.5510, L500.3400, L500.2500, L100.0100 #### [facility] [address] [place], [address] Blood manual differential co mment interpretation (narrative result)Ordered By: Uche Felix on 07-06-2025 Manual differential comment Refugio (Bld) [Interp] See comment [facility] Comment on above: ANISOCYTOSIS CBC W/Diff, Automatedon 06-25 SMEAR COMMENT Normal [facility] Comment on above: Result Comment: ANIS OCYTOSIS Performed By: #### L 400.0001 #### [facility] [address] [place], [address] Anisocytosis Ql (Bld) 1+ Normal [facility] Comment on above: Performed By: #### L 400.0001 #### [facility] [address] [place], [address] BASO STIPPLING RARE Normal [facility] Comment on above: Performed By: #### L 400.0001 #### [facility] [address] [place], [address] OVALOCYTE RARE Normal [facility] Comment on above: Performed By: #### L 400.0001 #### [facility] [address] [place], [address] POLYCHROMASIA 1+ Normal [facility] Comment on above: Performed By: #### L 400.0001 #### [facility] [address] [place], [address] Erythrocyte basophilic stipp ling detectionOrdered By: Uche Felix on 07-06-2025 Basophilic stippling LM Ql (Bld) [facility] Ovalocyte detectionOrdered B y: Uche Felix on 07-06-2025 Ovalocytes LM Ql (Bld) RARE [facility] Surgical pathology reportOrd ered By: Alfredito Dubon on 07-06-2025 Surgical pathology study [facility] Basic Metabolic Profile (BMP )on 07-05-2025 BUN/CRE 16.8 RATIO Normal 10-20 [facility] Comment on above: Performed By: #### L 400.0001 #### [facility] [address] [place], [address] Calcium [Mass/Vol] 9.1 mg/dL Normal 7.6-11.0 [facility] Comment on above: Performed By: #### L 400.0001 #### [facility] [address] [place], [address] Chloride [Moles/Vol] 102 mmol/L Normal 98-108 [facility] Comment on above: Performed By: #### L 400.0001 #### [facility] [address] [place], [address] CO2 [Moles/Vol] 21.6 mmol/L Normal 21.0-32.0 [facility] Comment on above: Performed By: #### L 400.0001 #### [facility] [address] [place], [address] Creatinine [Mass/Vol] 1.14 mg/dL Normal 0.70-1.20 [facility] Comment on above: Performed By: #### L 400.0001 #### [facility] [address] [place], [address] ECRCL 46.13 ml/min Low 50-250 [facility] Comment on above: Performed By: #### L 400.0001 #### [facility] [address] [place], [address] GAP 12 Normal 5-15 [facility] Comment on above: Performed By: #### L 400.0001 #### [facility] [address] [place], [address] GFR/1.73 sq M.predicted among non-blacks MDRD (S/P/Bld) [Vol rate/Area] 66 mL/min/{1.73_m2} Normal >60 [facility] Comment on above: Result Comment: mL/m in/1.73m2 CKD-EPI Creatinine Equation (2020) Performed By: #### L 400.0001 #### [facility] [address] [place], [address] Glucose [Mass/Vol] 178 mg/dL High 70-99 [facility] Comment on above: Performed By: #### L 400.0001 #### [facility] [address] [place], [address] Potassium [Moles/Vol] 3.8 mmol/L Normal 3.3-5.1 [facility] Comment on above: Performed By: #### L 400.0001 #### [facility] [address] [place], [address] Sodium [Moles/Vol] 135 mmol/L Normal 133-145 [facility] Comment on above: Performed By: #### L 400.0001 #### [facility] [address] [place], [address] Urea nitrogen [Mass/Vol] 19 mg/dL Normal 4-19 [facility] Comment on above: Performed By: #### L 400.0001 #### [facility] [address] [place], [address] Bedside Glucoseon 07-05-2025 FINGERSTICK GLU 214 mg/dL High 74-106 [facility] Comment on above: Result Comment: BELLA GEMENT OF PATIENT CARE PER NURSING PROTOCOL Performed By: #### L 501.080 #### [facility] [address] [place], [address] FINGERSTICK GLU 232 mg/dL High 74-106 [facility] Comment on above: Result Comment: BELLA GEMENT OF PATIENT CARE PER NURSING PROTOCOL Performed By: #### L 503.5510, L500.3400, L500.2500, L100.0100 #### [facility] [address] [place], [address] FINGERSTICK GLU 290 mg/dL High 74-106 [facility] Comment on above: Result Comment: BELLA GEMENT OF PATIENT CARE PER NURSING PROTOCOL Performed By: #### L 400.0001 #### [facility] [address] [place], [address] FINGERSTICK GLU 182 mg/dL High 74-106 [facility] Comment on above: Result Comment: BELLA GEMENT OF PATIENT CARE PER NURSING PROTOCOL Performed By: #### L 501.080 #### [facility] [address] [place], [address] CBC W/Diff, Automatedon 06-25 Anisocytosis Ql (Bld) 1+ Normal [facility] Comment on above: Performed By: #### L 500.2500, L501.5200, L100.0100, L501.2300 #### [facility] [address] [place], [address] Electrocardiogram reportOrde red By: Kevin Joshi on 07-05-2025 EKG study [facility] Cardiovascular Services [address] [place] [address] 12 Lead EKG 07/03/25 2142 MR#: [id number] Acct: [id number] Name: ITZEL ALONZO Rep #:[id number] : 1950 75 From: Kevin Joshi MD Attending Dr: Dr. Anthony Salgado MD Status: ADM IN Ordering Dr: Steven Tejeda DO Date: 0 07/03/25 Location: [facility] Sex: M AA Admitted: 07/03/25 Test Reason [...] Abnormal ECG Confirmed by KEVIN JOSHI MD ([id number]), pictures editor JOSE NYE ([id number]) on 07/05/2025 1:12:48 PM Referred By: Confirmed By: KEVIN JOSHI MD 07/05/25 1312 Date _ Kevin Joshi MD CC: SID Haji; Dr. Steven Tejeda DO; Dr. Anthony Salgado MD ~ Signed [facility] Other Phone: [id number] 07-05-2025 [facility] Medical Records Department [address] [place] [address] Anesthesia Postop Eval II 07/05/25610 MR#: [id number] Acct: [id number] Name: ITZEL ALONZO Rep #: [id number] : 1950 75 From: Kayden Merino MD PCP: SID Haro Status:ADM IN Y Race: AA Location: [place] [address] Anesthesia Postop Eval I Sum Postop Eval Completion status Anesthesia document: Postop Eval 1 completed: Yes Anesthesia Postop Eval I Summary Anesthesia Postop Eval I Summary: Anesthesia Postop Eval I: Assessment Summary Airway patent Yes 07/04/25 11:46 WELLHEAD PUMPER.JCLI Spontaneous unlabored Yes 07/04/25 11:46 WELLHEAD PUMPER.JCLI respirations Mental status Awake 07/04/25 11:46 WELLHEAD PUMPER.JCLI nausea No 07/04/25 11:46 WELLHEAD PUMPER.JCLI Vomiting No 07/04/25 11:46 WELLHEAD PUMPER.JCLI Anesthesia Postop Eval I: Fluid Summary Crystalloid volume administer 500 07/04/25 11:46 WELLHEAD PUMPER.JCLI (ml) Colloids volume administered ( ml) Blood Product volume administered (ml) Total IV fluid infused 500 07/04/25 11:46 WELLHEAD PUMPER.JCLI Anesthesia Postop Eval I: Summary Notes Anesthesia Complication No 07/04/25 11:46 WELLHEAD PUMPER.JCLI Anesthesia Complication Comment: Post-operative progress note Anesthesia: Postop Eval II Evaluation Mental status: Awake Pain Level: 0 nausea: No Vomiting: No 07/05/25610 Date Kayden Merino MD Cosigner Signature: Date CC: Signed Normal [facility] Magnesiumon 07-05-2025 Magnesium [Mass/Vol] 2.0 mg/dL Normal 1.5-2.2 [facility] Comment on above: Performed By: #### L 400.0001 #### [facility] [address] [place], [address] Magnesium measurement (mass/ volume)Ordered By: Uche Felix on 07-05-2025 Magnesium (Unsp spec) [Mass/Vol] 2.0 mg/dL 1.5-2.2 [facility] Phosphoruson 07-05-2025 Phosphate [Mass/Vol] 3.0 mg/dL Normal 2.7-4.5 [facility] Comment on above: Performed By: #### L 400.0001 #### [facility] [address] [place], [address] BRCon 07-04-2025 RC Normal [facility] Comment on above: Result Comment: [id number] OP RC TRANSFUSED 07/06/25 1234 Performed By: #### L 500.2500, L501.5200, L100.0100, L501.2300 #### [facility] [address] [place], [address] Bedside Glucoseon 07-04-2025 FINGERSTICK GLU 208 mg/dL High 74-106 [facility] Comment on above: Result Comment: BELLA GEMENT OF PATIENT CARE PER NURSING PROTOCOL Performed By: #### L 503.5510, L500.3400, L500.2500, L100.0100 #### [facility] [address] [place], [address] FINGERSTICK GLU 215 mg/dL High 74-106 [facility] Comment on above: Result Comment: BELLA GEMENT OF PATIENT CARE PER NURSING PROTOCOL Performed By: #### L 400.0001 #### [facility] [address] [place], [address] FINGERSTICK GLU 174 mg/dL High 74-106 [facility] Comment on above: Result Comment: BELLA GEMENT OF PATIENT CARE PER NURSING PROTOCOL Performed By: #### L 400.0001 #### [facility] [address] [place], [address] FINGERSTICK GLU 166 mg/dL High 74-106 [facility] Comment on above: Result Comment: BELLA GEMENT OF PATIENT CARE PER NURSING PROTOCOL Performed By: #### L 400.0001 #### [facility] [address] [place], [address] FINGERSTICK GLU 193 mg/dL High 74-106 [facility] Comment on above: Result Comment: BELLA GEMENT OF PATIENT CARE PER NURSING PROTOCOL Performed By: #### L 400.0001 #### [facility] [address] [place], [address] Bilirubin, totalOrdered By: Johanne Evans on 07-04-2025 Bilirubin [Mass/Vol] 0.45 mg/dL 0.00-1.30 [facility] CBC W/Diff, Automatedon 06-25 Anisocytosis Ql (Bld) 1+ Normal [facility] Comment on above: Performed By: #### L 501.080 #### [facility] [address] [place], [address] PLT EST ADEQUATE Normal ADEQ [facility] Comment on above: Performed By: #### L 501.080 #### [facility] [address] [place], [address] Comprehensive Metabolic Prof ilon 07-04-2025 Albumin [Mass/Vol] 3.1 g/dL Low 3.4-4.8 [facility] Comment on above: Performed By: #### L 501.080 #### [facility] [address] [place], [address] Albumin/Globulin [Mass ratio] 0.5 {ratio} Low 0.9-2.4 [facility] Comment on above: Performed By: #### L 501.080 #### [facility] [address] [place], [address] ALK PHOS 124 U/L Normal 40-129 [facility] Comment on above: Performed By: #### L 501.080 #### [facility] [address] [place], [address] ALT [Catalytic activity/Vol] 9 U/L Normal <=46 [facility] Comment on above: Performed By: #### L 501.080 #### [facility] [address] [place], [address] AST [Catalytic activity/Vol] 18 U/L Normal <=37 [facility] Comment on above: Performed By: #### L 501.080 #### [facility] [address] [place], [address] Bilirubin [Mass/Vol] 0.45 mg/dL Normal 0.00-1.30 [facility] Comment on above: Performed By: #### L 501.080 #### [facility] [address] [place], [address] BUN/CRE 16.4 RATIO Normal 10-20 [facility] Comment on above: Performed By: #### L 501.080 #### [facility] [address] [place], [address] Calcium [Mass/Vol] 9.2 mg/dL Normal 7.6-11.0 [facility] Comment on above: Performed By: #### L 501.080 #### [facility] [address] [place], [address] Chloride [Moles/Vol] 103 mmol/L Normal 98-108 [facility] Comment on above: Performed By: #### L 501.080 #### [facility] [address] [place], [address] CO2 [Moles/Vol] 19.6 mmol/L Low 21.0-32.0 [facility] Comment on above: Performed By: #### L 501.080 #### [facility] [address] [place], [address] Creatinine [Mass/Vol] 0.78 mg/dL Normal 0.70-1.20 [facility] Comment on above: Performed By: #### L 501.080 #### [facility] [address] [place], [address] ECRCL 63.55 ml/min Normal 50-250 [facility] Comment on above: Performed By: #### L 501.080 #### [facility] [address] [place], [address] GAP 12 Normal 5-15 [facility] Comment on above: Performed By: #### L 501.080 #### [facility] [address] [place], [address] GFR/1.73 sq M.predicted among non-blacks MDRD (S/P/Bld) [Vol rate/Area] 92 mL/min/{1.73_m2} Normal >60 [facility] Comment on above: Result Comment: mL/m in/1.73m2 CKD-EPI Creatinine Equation (2020) Performed By: #### L 501.080 #### [facility] [address] [place], [address] Globulin (S) [Mass/Vol] 5.8 g/dL High 2.2-4.2 [facility] Comment on above: Performed By: #### L 501.080 #### [facility] [address] [place], [address] Glucose [Mass/Vol] 174 mg/dL High 70-99 [facility] Comment on above: Performed By: #### L 501.080 #### [facility] [address] [place], [address] Potassium [Moles/Vol] 4.2 mmol/L Normal 3.3-5.1 [facility] Comment on above: Performed By: #### L 501.080 #### [facility] [address] [place], [address] Sodium [Moles/Vol] 134 mmol/L Normal 133-145 [facility] Comment on above: Performed By: #### L 501.080 #### [facility] [address] [place], [address] T PROT 8.9 g/dL High 5.9-8.4 [facility] Comment on above: Performed By: #### L 501.080 #### [facility] [address] [place], [address] Urea nitrogen [Mass/Vol] 13 mg/dL Normal 4-19 [facility] Comment on above: Performed By: #### L 501.080 #### [facility] [address] [place], [address] Consultation - Orthopedicson 07-04-2025 Consultation - Orthopedics [facility] Medical Records Department [address] [place] [address] Consultation - Orthopedics 07/04/25 0959 MR#: [id number] Acct: [id number] Name: ITZEL ALONZO Rep #: [id number] : 1950 75 From: Nuno Campbell MD PCP: Carlene 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 Patient admitted to the medical service. [facility] Medical History CKD (chronic kidney disease), [...] tablet 5 mg PO Q6H PRN pain 07/04/2507/19 History pantoprazole 40 mg tablet,delayed 40 mg [...] intake: ne (more content not included)... Normal [facility] Decalcification bone/plaqueo n 07-04-2025 Decalcification bone/plaque -------- Patient Age/Sex Location Account Attending Physician -------- ITZEL ALONZO 75/M MS3 [id number] Dr. Anthony Salgado MD -------- Specimen: [id number] Received: 07/05/25 Status: CASIE Perez Num: [id number] Spec Type: FEM HEAD Subm Dr: Dr. [...] in 3 cassettes, following decalcification. PR 07/05/2025 CPT:25980,43097 -------- Patient Age/Sex Location Account Attending Physician -------- ITZEL ALONZO 75/M MS3 [id number] Dr. Anthony Salgado MD -------- Signed (signature on file) Dr. Alfredito Sue MD 07/06/25 1606 -------- Normal [facility] Comment on above: Performed By: #### L 400.0001 #### [facility] [address] [place], [place], [address] Ferritinon 07-04-2025 Ferritin [Mass/Vol] 640 ng/mL High 37-417 [facility] Comment on above: Performed By: #### L 501.080 #### [facility] [address] [place], [place], [address] Hemoglobin A1con 07-04-2025 HbA1c (Bld) [Mass fraction] 8.2 % High <=5.6 [facility] Comment on above: Result Comment: Norm al < 5.7 % Prediabetic 5.7 - 6.4 % Diabetic >or= 6.5 % Please note range changes. Performed By: #### L 501.080 #### [facility] [address] [place], [place], [address] Hemoglobin A1c percentageOrd ered By: Kayden Merino on 07-04-2025 HbA1c (Bld) [Mass fraction] 8.2 % High <5.7 [facility] Comment on above: Normal < 5.7 % Predi abetic 5.7 - 6.4 % Diabetic >or= 6.5 % Please note range changes. Hip Min 2 Views (Portable)on 07-04-2025 Hip Min 2 Views (Portable) [facility] Imaging Services [address] [place] [address] Hip Min 2 Views (Portable) MR#: [id number] Acct: [id number] Name: ITZEL ALONZO Rep #: [id number] : 1950 M 75 From: Yesica Pedroza MD PCP: LUIS MIGUEL HaroC Status: ADM IN Study: Hip Min 2 Views (Portable) Date of Exam: 07/04 Exam# [id number] Ordering Dr: Nuno Campbell MD PROCEDURE: HIP [...] fracture with no acute complications. Reading Location: [facility] CC: WILDLIFE TECHNICIAN-C Carlene Haji; Dr. Nuno Campbell MD Drier Operator Head: Signed Normal [facility] International normalized rat io (INR) calculationOrdered By: Kayden Merino on 07-04-2025 INR Coag (Bld) [Relative time] 1.3 {INR} [facility] Iron measurement (mass/mass) Ordered By: Johanne Evans on 07-04-2025 Iron (Unsp spec) [Mass/Mass] 17 ug/dL Low 65-175 [facility] Iron+Iron Binding Capacityon 07-04-2025 TIBC 163 ug/dL Low 250-450 [facility] Comment on above: Performed By: #### L 501.080 #### [facility] [address] [facility] [place], [address] Laboratory - Chemistry and C hemistry - challengeOrdered By: Johanne Evans on 07-04-2025 AST [Catalytic activity/Vol] 18 U/L <38 [facility] MR/POSTOP.ANEon 07-04-2025 MR/POSTOP.[facility] Medical Records Department [address] [place] [address] Anesthesia Postop Eval I 07/04/25 1146 MR#: [id number] Acct: [id number] Name: ITZEL ALONZO Rep #: [id number] : 1950 75 From: Kye Luu CRNA PCP: SID Haro Status:ADM IN Y Race: AA Location: [place] [address]-1 Anesthesia: Postop Eval I Current Vital Signs [...] 1 completed: Yes 07/04/25 1146 Date Kye Luu CRNA Cosigner Signature: Date CC: Signed Normal [facility] No Panel InformationOrdered By: Johanne Evans on 07-04-2025 Unsaturated Iron Binding Capacity 146 ug/dL Low 228-428 [facility] 18 U/L <38 [facility] 146 ug/dL Low 228-428 [facility] Operative Reporton Operative Report [facility] Medical Records Department [address] [place] [address] Operative Report 07/04/25 1129 MR#: [id number] Acct: [id number] Name: ITZEL ALONZO Rep #: [id number] : 1950 75 From: Nuno Campbell MD PCP: SID Haro Status:ADM IN Location: [place] [id number] Problems Associated Problem List Diagnoses (1) Closed intertrochanteric fracture of right hip: Operative Report (Standard) Operative Information Date of Procedure: 07/04/25 Pre-Operative Diagnosis: Right hip intertrochanteric fracture Post-Operative Diagnosis: Same Surgery/Procedure Performed: Open reduction internal fixation right hip, long gamma nail stock hanger: Yes Devil Dog: Silvia Butler Tasks completed by nurse first assist: Closing and Implanting device Additional operating room assistant?: No Type of Anesthesia: Spinal RN [...] nail fixation, locked Surgeon: Dr. Nuno Campbell Director Of Radiology: Silvia Butler PA-C Anesthesia: spinal Medications: Ancef [...] underwent standard reduction, internal fixation using a [place] long gamma 3 nail. Nail size was 11 mm x 420. 125 degree neck angle. Proximal cross lock screw was 110. Distal cross lock screw was 42.5. X-rays taken throughout. pastrycook's assistant, physician operating room assistant, was utilized throughout the entire procedure. They were vital to the procedure from beginning to end. They help with patient transfer, patient padding and positioning, fracture reduction, maintenance of fracture reduction, internal fixation of implants, wound closure, bandage application, patient transfer. Without neurosurgical nurse practitioner, surgical time would have been significantly increased and surgical outcome could have been less optimal. Procedure: Patient was taken to the operating room. Placed under a general anesthetic and transferred to the operating table with the help of the operating room assistant. With the help of the operating room assistant patient was prepped and padded for surgery. Left foot was well-padded and placed in the traction boot. Right lower extremity was abducted and flexed out of harm's way. JACQUELINE kristane and SCDs utilized. Fluoroscopy was brought in. With the help of the operating room assistant and manipulation of the limb, reduction [...] of this with the help of the operating room assistant holding the soft tissue protector appropriately. Long reaming was done starting and reaming up to 12.5 mm distally. Was then with the help of the operating room assistant . once reaming was done we [...] was red (more content not included)... Normal [facility] Prothrombin Time w/INRon INR Coag (PPP) [Relative time] 1.3 {INR} Normal [facility] Comment on above: Performed By: #### L 503.5510, L500.3400, L500.2500, L100.0100 #### [facility] [address] [place], [address] PT Coag (PPP) [Time] 16.4 s High 11.7-14.9 [facility] Comment on above: Performed By: #### L 503.5510, L500.3400, L500.9878, L100.0100 #### [facility] [place], [address] Prothrombin timeOrdered By: Kayden Merino on 07-04-2025 PT Coag (PPP) [Time] 16.4 s High 11.7-14.9 [facility] Serum globulin measurementOr dered By: Johanne Evans on 07-04-2025 Globulin (S) [Mass/Vol] 5.8 g/dL High 2.2-4.2 [facility] Serum or plasma alanine stahl otransferase (ALT) measurementOrdered By: Johanne Evans on 07-04-2025 ALT [Catalytic activity/Vol] 9 U/L <47 [facility] Serum or plasma albumin ivania urement (mass/volume)Ordered By: Johanne Evans on 07-04-2025 Albumin [Mass/Vol] 3.1 g/dL Low 3.4-4.8 [facility] Serum or plasma albumin/glob ulin mass ratioOrdered By: Johanne Evans on 07-04-2025 Albumin/Globulin [Mass ratio] 0.5 {ratio} Low 0.9-2.4 [facility] Serum or plasma alkaline brittany sphatase measurementOrdered By: Johanne Evans on 07-04-2025 ALP [Catalytic activity/Vol] 124 U/L 40-129 [facility] Serum or plasma ferritin shari surement (mass/volume)Ordered By: Johanne Evans on 07-04-2025 Ferritin [Mass/Vol] 640 ng/mL High 37-417 [facility] Serum or plasma iron saturat ion measurement (mass fraction)Ordered By: Johanne Evans on 07-04-2025 Iron saturation [Mass fraction] 10.4 % 9-55 [facility] Comment on above: Previous reported re sult: 11.0 %Edited by: NOY on 07/04/25:0703 AMENDED REPORT 07/04/25 0703 IRON SATURATION previously reported as: 11.0 % Total proteinOrdered By: Alfonso Evans on 07-04-2025 Protein [Mass/Vol] 8.9 g/dL High 5.9-8.4 [facility] Type AND Screenon 07-04-2025 Ab SCREEN GEL Negative Normal [facility] Comment on above: Order Comment: CLEAN CATCH Performed By: #### L 400.0001 #### [facility] [address] [place], [address] ABO and Rh group Nom (Bld) Blood group O Rh(D) positive Normal [facility] Comment on above: Order Comment: CLEAN CATCH Performed By: #### L 400.0001 #### [facility] [address] [place], [address] A1 CELL Not performed Normal [facility] Comment on above: Order Comment: CLEAN CATCH Result Comment: This specimen has been REJECTED due to Laboratory criteria: Quanity Not Sufficient. Autumn Shen has been notified of need of recollection. 07/04/2547 Shant L White Performed By: #### L 400.0001 #### [facility] [address] [place], [address] Ab SCREEN GEL Not performed Normal [facility] Comment on above: Order Comment: CLEAN CATCH Result Comment: This specimen has been REJECTED due to Laboratory criteria: Quanity Not Sufficient. Autumn Shen has been notified of need of recollection. 07/04/2547 Shant L White Performed By: #### L 400.0001 #### [facility] [address] [place], [address] ABO and Rh group Nom (Bld) Test Not Performed Normal [facility] Comment on above: Order Comment: CLEAN CATCH Result Comment: This specimen has been REJECTED due to Laboratory criteria: Quanity Not Sufficient. Autumn Shen has been notified of need of recollection. 07/04/2547 Shant L White Performed By: #### L 400.0001 #### [facility] [address] [place], [address] ANTI A Not performed [facility] Comment on above: Order Comment: CLEAN CATCH Result Comment: This specimen has been REJECTED due to Laboratory criteria: Quanity Not Sufficient. Autumn Shen has been notified of need of recollection. 07/04/25 0647 Shant L White Performed By: #### L 400.0001 #### [facility] [address] [place], [address] ANTI B Not performed Normal [facility] Comment on above: Order Comment: CLEAN CATCH Result Comment: This specimen has been REJECTED due to Laboratory criteria: Quanity Not Sufficient. Autumn Shen has been notified of need of recollection. 07/04/25 0647 Shant L White Performed By: #### L 400.0001 #### [facility] [address] [place], [address] ANTI D Not performed Normal [facility] Comment on above: Order Comment: CLEAN CATCH Result Comment: This specimen has been REJECTED due to Laboratory criteria: Quanity Not Sufficient. Autumn Shen has been notified of need of recollection. 07/04/25 0647 Shant L White Performed By: #### L 400.0001 #### [facility] [address] [place], [address] B CELLS Not performed Normal [facility] Comment on above: Order Comment: CLEAN CATCH Result Comment: This specimen has been REJECTED due to Laboratory criteria: Quanity Not Sufficient. Autumn Shen has been notified of need of recollection. 07/04/25 0647 Shant L White Performed By: #### L 400.0001 #### [facility] [address] [place], [address] 12 Lead EKGon 07-03-2025 12 Lead EKG [facility] Cardiovascular Services [address] [place] [address] 12 Lead EKG 07/03/25 2142 MR#: [id number] Acct: [id number] Name: ITZEL ALONZO Rep #: [id number] : 1950 75 From: Kevin Joshi MD [...] Abnormal ECG Confirmed by KEVIN JOSHI MD ([id number]), pictures editor JOSE NYE ([id number]) on 07/05/2025 1:12:48 PM Referred By: Confirmed By: KEVIN JOSHI MD 07/05/25 1312 Date Kevin Joshi MD CC: SID Haji; Dr. Steven Tejeda DO; Dr. Anthony Salgado MD Signed Normal [facility] Absolute lymphocyte countOrd ered By: Steven Tejeda on 07-03-2025 Lymphocytes Auto (Unsp spec) [#/Vol] 0.80 10*3/uL Low 0.83-4.51 [facility] Absolute neutrophil countOrd ered By: Steven Tejeda on 07-03-2025 Neutrophils (Bld) [#/Vol] 11.4 10*3/uL High 2.0-7.7 [facility] Activated partial thrombopla stin time (aPTT) in platelet poor plasma by coagulation aOrdered By: Steven Tejeda on 07-03-2025 aPTT Coag (PPP) [Time] 22.7 s Low 24.1-36.2 [facility] Anion gap in Serum or Plasma Ordered By: Steven Tejeda on 07-03-2025 Anion gap [Moles/Vol] 13 mmol/L 5-15 [facility] Automated lymphocyte count a s percentage of total leukocytesOrdered By: Steven Tejeda on 07-03-2025 Lymphocytes/100 WBC Auto (Unsp spec) 6.3 % Low 19-41 [facility] BUN/creatinine ratioOrdered By: Steven Tejeda on 07-03-2025 Urea nitrogen/Creatinine [Mass ratio] 16.8 mg/mg 10-20 [facility] Basic Metabolic Profile (BMP )on 07-03-2025 BUN/CRE 16.8 RATIO Normal 10-20 [facility] Comment on above: Performed By: #### L 400.0001 #### [facility] [address] [place], [address] Calcium [Mass/Vol] 9.7 mg/dL Normal 7.6-11.0 [facility] Comment on above: Performed By: #### L 400.0001 #### [facility] [address] [place], [address] Chloride [Moles/Vol] 100 mmol/L Normal 98-108 [facility] Comment on above: Performed By: #### L 400.0001 #### [facility] [address] [place], [address] CO2 [Moles/Vol] 20.2 mmol/L Low 21.0-32.0 [facility] Comment on above: Performed By: #### L 400.0001 #### [facility] [address] [place], [address] Creatinine [Mass/Vol] 0.86 mg/dL Normal 0.70-1.20 [facility] Comment on above: Performed By: #### L 400.0001 #### [facility] [address] [place], [address] ECRCL 66.03 ml/min Normal 50-250 [facility] Comment on above: Performed By: #### L 400.0001 #### [facility] [address] [place], [address] GAP 13 Normal 5-15 [facility] Comment on above: Performed By: #### L 400.0001 #### [facility] [address] [place], [address] GFR/1.73 sq M.predicted among non-blacks MDRD (S/P/Bld) [Vol rate/Area] 89 mL/min/{1.73_m2} Normal >60 [facility] Comment on above: Result Comment: mL/m in/1.73m2 CKD-EPI Creatinine Equation (2020) Performed By: #### L 400.0001 #### [facility] [address] [place], [address] Glucose [Mass/Vol] 204 mg/dL High 70-99 [facility] Comment on above: Performed By: #### L 400.0001 #### [facility] [address] [place], [address] Potassium [Moles/Vol] 4.8 mmol/L Normal 3.3-5.1 [facility] Comment on above: Performed By: #### L 400.0001 #### [facility] [address] [place], [address] Sodium [Moles/Vol] 133 mmol/L Normal 133-145 [facility] Comment on above: Performed By: #### L 400.0001 #### [facility] [address] [place], [address] Urea nitrogen [Mass/Vol] 14 mg/dL Normal 4-19 [facility] Comment on above: Performed By: #### L 400.0001 #### [facility] [address] [place], [address] Basophil percentageOrdered B y: Steven Tejeda on 07-03-2025 Basophils/100 WBC (Bld) 0.2 % 0-1 [facility] Bilirubin Test strip Ql (U)O rdered By: Steven Tejeda on 07-03-2025 Bilirubin Ql (U) Negative Negative [facility] Blood manual differential co mment interpretation (narrative result)Ordered By: Steven Tejeda on 07-03-2025 Manual differential comment Refugio (Bld) [Interp] SCANNED [facility] CBC W/Diff, Automatedon - OTHER CELLS RARE Normal [facility] Comment on above: Result Comment: FRAG MENTED CELLS Performed By: #### L 400.0001 #### [facility] [address] [place], [address] Anisocytosis Ql (Bld) 1+ Normal [facility] Comment on above: Performed By: #### L 400.0001 #### [facility] [address] [place], [address] ALLYSON CELLS RARE Normal [facility] Comment on above: Performed By: #### L 400.0001 #### [facility] [address] [place], [address] HYPOCHROMASIA 1+ Normal [facility] Comment on above: Performed By: #### L 400.0001 #### [facility] [address] [place], [address] MICROCYTIC 1+ Normal [facility] Comment on above: Performed By: #### L 400.0001 #### [facility] [address] [place], [address] SMEAR COMMENT SCANNED Normal [facility] Comment on above: Performed By: #### L 400.0001 #### [facility] [address] [place], [address] Carbon dioxide, total [Moles /volume] in Central venous bloodOrdered By: Steven Tejeda on 07-03-2025 CO2 [Moles/Vol] 20.2 mmol/L Low 21.0-32.0 [facility] Chloride assayOrdered By: Emil Tejeda on 07-03-2025 Chloride [Moles/Vol] 100 mmol/L 98-108 [facility] Crenated erythrocyte detecti on by light microscopyOrdered By: Steven Tejeda on 07-03-2025 Allyson cells LM Ql (Bld) RARE [facility] Emergency Department Summary on 07-03-2025 Emergency Department Summary [facility] Medical Records Department [address] [place] [address] Emergency Department Summary 07/03/25 MR#: [id number] Acct: [id number] Name: ITZEL ALONZO Rep #: [id number] : 1950 75 From: Steven Tejeda DO PCP: Carlene Haji, WILDLIFE TECHNICIAN-C Status:ADM IN Location: MS3 [id number] HPI History of Present Illness HPI Narrative: [...] for Parasthesia, Weakness or Loss of Funtion [facility] Medical History (Updated 07/03/25 @ 23:18 [...] lower extrem (more content not included)... Normal [facility] Eosinophil percentageOrdered By: Steven Tejeda on 07-03-2025 Eosinophils/100 WBC (Bld) 0.1 % 0-5 [facility] Erythrocyte distribution wid th ratioOrdered By: Steven Tejeda on 07-03-2025 Erythrocyte distribution width (RBC) [Ratio] 22.6 % High 11.6-14.6 [facility] Erythrocyte distribution wid th standard deviationOrdered By: Steven Tejeda on 07-03-2025 Erythrocyte distribution width (RBC) [Ratio] 56.9 fl High 35.1-43.9 [facility] Erythrocyte morphology asses smentOrdered By: Steven Tejeda on 07-03-2025 RBC morphology finding Nom (Bld) RARE [facility] Comment on above: FRAGMENTED CELLS Extremity Lower without Cont raon 07-03-2025 Extremity Lower without Contra [facility] Imaging Services [address] [place] [address] Extremity Lower without Contra MR#: [id number] Acct: [id number] Name: ITZEL ALONZO Rep #: [id number] : 1950 M 75 From: Radha Garcia nd, MD PCP: Carlene Haji, WILDLIFE TECHNICIAN-C Status: REG ER Study: Extremity Lower without Contra Date of Exam: 0 07/03/25 Exam# [id number] Ordering Dr: Nuno Campbell MD PROCEDURE: EXTREMITY [...] fracture. No aggressive osseous lesions. Reading Location: [id number] CC: WILDLIFE TECHNICIAN-C Carlene Haji; Dr. Nuno Campbell MD Drier Operator Head: Signed Normal [facility] Glomerular filtration rate ( GFR) estimation/1.73 sq m using serum, plasma, or whole bOrdered By: Steven Tejeda on 07-03-2025 GFR/1.73 sq M.predicted among non-blacks MDRD (S/P/Bld) [Vol rate/Area] 89 mL/min/{1.73_m2} >60 [facility] Comment on above: mL/min/1.73m2 CKD-EP I Creatinine Equation (2020) H AND P Exam - [facility] 07-03-2025 H&P Exam - Hospitalist [facility] Medical Records Department [address] [place] [address] H P Exam - Hospitalist 07/03/257 MR#: [id number] Acct: [id number] Name: ITZEL ALONZO Rep #: [id number] : 1950 75 From: Johanne Evans MD PCP: SID Haro Status:ADM IN Location: MS3 [id number] HPI - General General Date of Admission: [...] tobacco use, COPD, recent transfer to [facility] [place] [facility] on 05/13/25 following large right-sided lung cancer wit suspected postobstructive pneumonia with acute metabolic encephalopathy suspected secondary to hypercalcemia of malignancy in addition to acute on chronic anemia with suspected upper GI bleed for further evaluation who now presents to the [facility] ED on 07/03/2025 with onset of right [...] osseous lesion would plan to admit to [facility] and evaluate for repair of hip fracture. [facility] Medical History (Updated 07/03/25 @ 23:18 [...] day smoke (more content not included)... Normal [facility] HIP, UNI W/ Pelvis 2-3 Views on 07-03-2025 HIP, UNI W/ Pelvis 2-3 Views [facility] Imaging Services [address] [place], [place] [id number] HIP, UNI W/ Pelvis 2-3 Views MR#: [id number] Acct: [id number] Name: ITZEL ALONZO #: [id number] : 1950 M 75 From: Radha Garcia nd, MD PCP: Carlene Haji, WILDLIFE TECHNICIAN-C Status: REG ER Study: HIP, UNI W/ Pelvis 2-3 Views Date of Exam: 08/19 Exam# [id number] Ordering Dr: Steven Tejeda DO PROCEDURE: HIP, [...] Malignancy can not be excluded. Reading Location: [id number] CC: WILDLIFE TECHNICIAN-C Carlene Haji; Dr. Steven Tejeda DO Drier Operator Head: Signed Normal [facility] Hematocrit Auto (Bld) [Volum e fraction]Ordered By: Steven Tejeda on 07-03-2025 Hematocrit (Bld) [Volume fraction] 27.9 % Low 40-54 [facility] Hemoglobin measurementOrdere d By: Steven Tejeda on 07-03-2025 Hemoglobin (Bld) [Mass/Vol] 8.4 g/dL Low 13.0-16.5 [facility] Hyaline casts LM.LPF (Urine sed) [#/Area]Ordered By: Steven Tejeda on 07-03-2025 Hyaline casts (Urine sed) [#/Area] 0 /[LPF] 0-5 [facility] Hypochromatic red blood cell detectionOrdered By: Steven Tejeda on 07-03-2025 Hypochromia Ql (Bld) 1+ [facility] Immature granulocytes/100 WB C Auto (Bld)Ordered By: Steven Tejeda on 07-03-2025 Immature granulocytes/100 WBC (Bld) 0.500 % 0.0-0.9 [facility] Comment on above: IG% - Immature Granu locytes (promyelocytes, myelocytes and metamyelocytes) > 1% indicates that a LEFT SHIFT is Present. International normalized rat io (INR) calculationOrdered By: Steven Tejeda on 07-03-2025 INR Coag (Bld) [Relative time] 1.2 {INR} [facility] Ketones Test strip Ql (U)Ord ered By: Steven Tejeda on 07-03-2025 Ketones Ql (U) Negative Negative [facility] - Hematology and Cell countsOrdered By: Steven Tejeda on 07-03-2025 Anisocytosis Ql (Bld) 1+ [facility] MCV (mean corpuscular volume ) determinationOrdered By: Steven Tejeda on 07-03-2025 MCV (RBC) [Entitic vol] 70.6 fL Low 80-94 [facility] Magnesiumon 07-03-2025 Magnesium [Mass/Vol] 1.9 mg/dL Normal 1.5-2.2 [facility] Comment on above: Order Comment: Comme nts: May add to ED labsComments: may add to ED labs Performed By: #### L 501.080 #### [facility] [address] [place], [address] Mean corpuscular hemoglobin (MCH) determinationOrdered By: Steven Tejeda on 07-03-2025 MCH (RBC) [Entitic mass] 21.3 pg Low 27.0-32.0 [facility] Mean corpuscular hemoglobin concentration (MCHC) determinationOrdered By: Steven Tejeda on 07-03-2025 MCHC (RBC) [Mass/Vol] 30.1 g/dL Low 32-36 [facility] Mean platelet volume determi nationOrdered By: Steven Tejeda on 07-03-2025 Platelet mean volume (Bld) [Entitic vol] 9.1 fL 6.2-12.0 [facility] Microscopic analysis of urin e for red blood cells (RBC)Ordered By: Steven Tejeda on 07-03-2025 Microscopic analysis of urine for red blood cells (RBC) 0-5 SEEN /hpf 0-5 [facility] Monocyte percentageOrdered B y: Steven Tejeda on 07-03-2025 Monocytes/100 WBC (Bld) 2.8 % 0-10 [facility] Mucus LM Ql (Urine sed)Order ed By: Steven Tejeda on 07-03-2025 Mucus Ql (Urine sed) 0 SEEN /hpf [facility] Natriuretic peptide.B prohor paul N-Terminal [Mass/volume] in Serum or PlasmaOrdered By: Johanne Evans on 07-03-2025 Natriuretic peptide.B prohormone N-Terminal [Mass/Vol] 372 pg/mL <1800 [facility] Comment on above: Heart Failure Unlike ly: < 300 pg/mLHeart Failure Likely< 50 Years: > 450 pg/mL50-75 Years: > 900 pg/mL>75 Years: > 1800 pg/mL Neutrophil percentageOrdered By: Steven Teejda on 07-03-2025 Neutrophils/100 WBC (Bld) 90.1 % High 47-70 [facility] Nitrite Test strip Ql (U)Ord ered By: Steven Tejeda on 07-03-2025 Nitrite Ql (U) Negative Negative [facility] Nucleated red blood cell per centageOrdered By: Steven Tejeda on 07-03-2025 Nucleated RBC/100 WBC (Bld) [Ratio] 0 % 0-5 [facility] Partial Thromboplast Timeon 07-03-2025 aPTT Coag (Bld) [Time] 22.7 s Low 24.1-36.2 [facility] Comment on above: Performed By: #### L 400.0001 #### [facility] [address] [place], [address] Phosphoruson 07-03-2025 Phosphate [Mass/Vol] 2.5 mg/dL Low 2.7-4.5 [facility] Comment on above: Order Comment: Comme nts: May add to ED labsComments: may add to ED labs Performed By: #### L 501.080 #### [facility] [address] [place], [address] Platelet countOrdered By: Emil Tejeda on 07-03-2025 Platelets (Bld) [#/Vol] 300 10*3/uL 150-450 [facility] Potassium measurement (mass/ volume)Ordered By: Steven Tejeda on 07-03-2025 Potassium (Unsp spec) [Mass/Vol] 4.8 mmol/L 3.3-5.1 [facility] Pro- Brain NATRIURETIC PEPTI Rodri 07-03-2025 Natriuretic peptide B (Bld) [Mass/Vol] 372 pg/mL Normal <=1800 [facility] Comment on above: Order Comment: Comme nts: May add to ED labsComments: may add to ED labs Result Comment: Hear t Failure Unlikely: < 300 pg/mL Heart Failure Likely < 50 Years: > 450 pg/mL 50-75 Years: > 900 pg/mL >75 Years: > 1800 pg/mL Performed By: #### L 501.080 #### [facility] [address] [place], [address] Protein Test strip Ql (U)Ord ered By: Steven Tejeda on 07-03-2025 Protein Ql (U) 100 mg/dl High Negative [facility] Prothrombin Time w/INRon INR Coag (PPP) [Relative time] 1.2 {INR} Normal [facility] Comment on above: Performed By: #### L 400.0001 #### [facility] [address] [place], [address] (882 PT Coag (PPP) [Time] 15.5 s High 11.7-14.9 [facility] Comment on above: Performed By: #### L 400.0001 #### [facility] [address] [place], [address] ([address] Prothrombin timeOrdered By: Steven Tejeda on 07-03-2025 PT Coag (PPP) [Time] 15.5 s High 11.7-14.9 [facility] RBC Auto (Bld) [#/Vol]Ordere d By: Steven Tejeda on 07-03-2025 RBC (Bld) [#/Vol] 3.95 10*6/uL Low 4.6-6.2 [facility] Serum creatinine measurement (mass/volume)Ordered By: Steven Tejeda on 07-03-2025 Creatinine [Mass/Vol] 0.86 mg/dL 0.70-1.20 [facility] Serum glucose measurement (m ass/volume)Ordered By: Steven Tejeda on 07-03-2025 Glucose [Mass/Vol] 204 mg/dL High 70-99 [facility] Serum or plasma calcium ivania urement (mass/volume)Ordered By: Steven Tejeda on 07-03-2025 Calcium [Mass/Vol] 9.7 mg/dL 7.6-11.0 [facility] Serum or plasma urea nitroge n measurement (mass/volume)Ordered By: Steven Tejeda on 07-03-2025 Urea nitrogen [Mass/Vol] 14 mg/dL 4-19 [facility] Sodium levelOrdered By: Steven Tejeda on 07-03-2025 Sodium [Moles/Vol] 133 mmol/L 133-145 [facility] Squamous epithelial cells de tection in urine sediment by light microscopyOrdered By: Steven Tejeda on 07-03-2025 Epithelial cells.squamous LM Ql (Urine sed) 0-5 SEEN /hpf 0-5 [facility] Urinalysis, Completeon 07-03 BACTERIA RARE Normal None Seen [facility] Comment on above: Order Comment: CLEAN CATCH Performed By: #### L 503.5510, L500.3400, L500.2500, L100.0100 #### [facility] [address] [place], [address] CAST,HYALINE 0-5 SEEN Normal 0-5 [facility] Comment on above: Order Comment: CLEAN CATCH Performed By: #### L 503.5510, L500.3400, L500.2500, L100.0100 #### [facility] [address] [place], [address] EPI,SQUAMOUS 0-5 SEEN Normal 0-5 [facility] Comment on above: Order Comment: CLEAN CATCH Performed By: #### L 503.5510, L500.3400, L500.2500, L100.0100 #### [facility] [address] [place], [address] RBC 0-5 SEEN Normal 0-5 [facility] Comment on above: Order Comment: CLEAN CATCH Performed By: #### L 503.5510, L500.3400, L500.2500, L100.0100 #### [facility] [address] [place], [address] WBC 0-5 SEEN Normal 0-5 [facility] Comment on above: Order Comment: CLEAN CATCH Performed By: #### L 503.5510, L500.3400, L500.2500, L100.0100 #### [facility] [address] [place], [address] Mucus Ql (Urine sed) 0 SEEN Normal [facility] Comment on above: Order Comment: CLEAN CATCH Performed By: #### L 503.5510, L500.3400, L500.2500, L100.0100 #### [facility] [address] [place], [address] Urine clarityOrdered By: Pat Tejeda on 07-03-2025 Clarity (U) Clear Clear [facility] Urine color determinationOrd ered By: Steven Tejeda on 07-03-2025 Color (U) Yellow Yellow [facility] Urine glucose detectionOrder ed By: Steven Tejeda on 07-03-2025 Glucose Ql (U) 100 mg/dl High Normal [facility] Urine leukocyte esterase det ection by dipstickOrdered By: Steven Tejeda on 07-03-2025 Leukocyte esterase Test strip Ql (U) Negative Negative [facility] Urine pHOrdered By: Steven proctor on 07-03-2025 pH (U) 6.0 [pH] 5.0 - 8.0 [facility] Urine sediment bacteria coun t by microscopy (number/high power field)Ordered By: Steven Tejeda on 07-03-2025 Bacteria LM.HPF (Urine sed) [#/Area] RARE /hpf None Seen [facility] Urine specific gravity measu rementOrdered By: Steven Tejeda on 07-03-2025 Specific gravity (U) [Rel density] 1.010 1.002-1.030 [facility] Urine urobilinogen measureme ntOrdered By: Steven Tejeda on 07-03-2025 Urobilinogen Ql (U) Normal mg/dl Normal [facility] White blood cell (WBC) count Ordered By: Steven Tejeda on 07-03-2025 WBC (Bld) [#/Vol] 12.7 10*3/uL High 4.4-11.0 [facility] White blood cell countOrdere d By: Steven Tejeda on 07-03-2025 White blood cell count 0-5 SEEN /hpf 0-5 [facility] Basic Metabolic Profile (BMP )on 05-14-2025 BUN Normal 4-19 [facility] Comment on above: Result Comment: Canc elled via OM: Order cancelled - Patient discharged Performed By: #### L 400.0001 #### [facility] [address] [facility] [address] BUN/CRE Normal 10-20 [facility] Comment on above: Result Comment: Canc elled via OM: Order cancelled - Patient discharged Performed By: #### L 400.0001 #### [facility] [address] [facility] [address] Calcium Normal 7.6-11.0 [facility] Comment on above: Result Comment: Canc elled via OM: Order cancelled - Patient discharged Performed By: #### L 400.0001 #### [facility] [address] [facility] [address] CL Normal 98-108 [facility] Comment on above: Result Comment: Canc elled via OM: Order cancelled - Patient discharged Performed By: #### L 400.0001 #### [facility] [address] [place], [address] CO2 Normal 21.0-32.0 [facility] Comment on above: Result Comment: Canc elled via OM: Order cancelled - Patient discharged Performed By: #### L 400.0001 #### [facility] [address] [place], [address] CREAT,SERUM Normal 0.70-1.20 [facility] Comment on above: Result Comment: Canc elled via OM: Order cancelled - Patient discharged Performed By: #### L 400.0001 #### [facility] [address] [place], [address] eGFR Normal >60 [facility] Comment on above: Result Comment: Canc elled via OM: Order cancelled - Patient discharged Performed By: #### L 400.0001 #### [facility] [address] [place], [address] GAP Normal 5-15 [facility] Comment on above: Result Comment: Canc elled via OM: Order cancelled - Patient discharged Performed By: #### L 400.0001 #### [facility] [address] [place], [address] GLU Normal 70-99 [facility] Comment on above: Result Comment: Canc elled via OM: Order cancelled - Patient discharged Performed By: #### L 400.0001 #### [facility] [address] [place], [address] Potassium Normal 3.3-5.1 [facility] Comment on above: Result Comment: Canc elled via OM: Order cancelled - Patient discharged Performed By: #### L 400.0001 #### [facility] [address] [place], [address] Basic Metabolic Profile (BMP) Normal 133-145 [facility] Comment on above: Result Comment: Canc elled via OM: Order cancelled - Patient discharged Performed By: #### L 400.0001 #### [facility] [address] [place], [address] CBC W/Diff, Automatedon 06-2 0-2024 Absolute Neut Normal 2.0-7.7 [facility] Comment on above: Result Comment: Canc elled via OM: Order cancelled - Patient discharged Performed By: #### L 400.0001 #### [facility] [address] [place], [address] HCT Normal 40-54 [facility] Comment on above: Result Comment: Canc elled via OM: Order cancelled - Patient discharged Performed By: #### L 400.0001 #### [facility] [address] [place], [address] HGB Normal 13.0-16.5 [facility] Comment on above: Result Comment: Canc elled via OM: Order cancelled - Patient discharged Performed By: #### L 400.0001 #### [facility] [address] [place], [address] MCH Normal 27.0-32.0 [facility] Comment on above: Result Comment: Canc elled via OM: Order cancelled - Patient discharged Performed By: #### L 400.0001 #### [facility] [address] [place], [address] MCHC Normal 32-36 [facility] Comment on above: Result Comment: Canc elled via OM: Order cancelled - Patient discharged Performed By: #### L 400.0001 #### [facility] [address] [place], [address] MCV Normal 80-94 [facility] Comment on above: Result Comment: Canc elled via OM: Order cancelled - Patient discharged Performed By: #### L 400.0001 #### [facility] [address] [place], [address] NEUT% Normal 47-70 [facility] Comment on above: Result Comment: Canc elled via OM: Order cancelled - Patient discharged Performed By: #### L 400.0001 #### [facility] [address] [place], [address] PLT Normal 150-450 [facility] Comment on above: Result Comment: Canc elled via OM: Order cancelled - Patient discharged Performed By: #### L 400.0001 #### [facility] [address] [place], [address] RBC Normal 4.6-6.2 [facility] Comment on above: Result Comment: Canc elled via OM: Order cancelled - Patient discharged Performed By: #### L 400.0001 #### [facility] [address] [place], [address] RDW CV Normal 11.6-14.6 [facility] Comment on above: Result Comment: Canc elled via OM: Order cancelled - Patient discharged Performed By: #### L 400.0001 #### [facility] [address] [place], [address] RDW SD Normal 35.1-43.9 [facility] Comment on above: Result Comment: Canc elled via OM: Order cancelled - Patient discharged Performed By: #### L 400.0001 #### [facility] [address] [place], [address] WBC Normal 4.4-11.0 [facility] Comment on above: Result Comment: Canc elled via OM: Order cancelled - Patient discharged Performed By: #### L 400.0001 #### [facility] [address] [place], [address] Absolute lymphocyte countOrd ered By: Anthony Salgado on 05-13-2025 Lymphocytes Auto (Unsp spec) [#/Vol] 1.93 10*3/uL 0.83-4.51 [facility] Absolute neutrophil countOrd ered By: Anthony Salgado on 06-19-2025 Neutrophils (Bld) [#/Vol] 8.9 10*3/uL High 2.0-7.7 [facility] Anion gap in Serum or Plasma Ordered By: Anthony Salgado on 05-13-2025 Anion gap [Moles/Vol] 11 mmol/L 5-15 [facility] Automated lymphocyte count a s percentage of total leukocytesOrdered By: Anthony Salgado on 05-13-2025 Lymphocytes/100 WBC Auto (Unsp spec) 16.4 % Low [facility] BUN/creatinine ratioOrdered By: Anthony Salgado on 05-13-2025 Urea nitrogen/Creatinine [Mass ratio] 9.2 mg/mg Low 09-13 [facility] Basic Metabolic Profile (BMP )on 05-13-2025 BUN/CRE 9.2 RATIO Low 09-13 [facility] Comment on above: Performed By: #### L 503.5510, L500.3400, L500.2500, L100.0100 #### [facility] [address] [place], [address] Calcium [Mass/Vol] 9.7 mg/dL Normal 7.6-11.0 [facility] Comment on above: Performed By: #### L 503.5510, L500.3400, L500.2500, L100.0100 #### [facility] [address] [place], [address] Chloride [Moles/Vol] 104 mmol/L Normal 98-108 [facility] Comment on above: Performed By: #### L 503.5510, L500.3400, L500.2500, L100.0100 #### [facility] [address] [place], [address] CO2 [Moles/Vol] 22.8 mmol/L Normal 21.0-32.0 [facility] Comment on above: Performed By: #### L 503.5510, L500.3400, L500.2500, L100.0100 #### [facility] [address] [place], [address] Creatinine [Mass/Vol] 1.07 mg/dL Normal 0.70-1.20 [facility] Comment on above: Performed By: #### L 503.5510, L500.3400, L500.2500, L100.0100 #### [facility] [address] [place], [address] ECRCL 53.58 ml/min Normal 50-250 [facility] Comment on above: Performed By: #### L 503.5510, L500.3400, L500.2500, L100.0100 #### [facility] [address] [place], [address] GAP 11 Normal 5-15 [facility] Comment on above: Performed By: #### L 503.5510, L500.3400, L500.2500, L100.0100 #### [facility] [address] [place], [address] GFR/1.73 sq M.predicted among non-blacks MDRD (S/P/Bld) [Vol rate/Area] 72 mL/min/{1.73_m2} Normal >60 [facility] Comment on above: Result Comment: mL/m in/1.73m2 CKD-EPI Creatinine Equation (2020) Performed By: #### L 503.5510, L500.3400, L500.2500, L100.0100 #### [facility] [address] [place], [address] Glucose [Mass/Vol] 207 mg/dL High 70-99 [facility] Comment on above: Performed By: #### L 503.5510, L500.3400, L500.2500, L100.0100 #### [facility] [address] [place], [address] Potassium [Moles/Vol] 3.2 mmol/L Low 3.3-5.1 [facility] Comment on above: Performed By: #### L 503.5510, L500.3400, L500.2500, L100.0100 #### [facility] [address] [place], [address] Sodium [Moles/Vol] 137 mmol/L Normal 133-145 [facility] Comment on above: Performed By: #### L 503.5510, L500.3400, L500.2500, L100.0100 #### [facility] [address] [place], [address] Urea nitrogen [Mass/Vol] 10 mg/dL Normal 4-19 [facility] Comment on above: Performed By: #### L 503.5510, L500.3400, L500.2500, L100.0100 #### [facility] [address] [place], [address] Basophil percentageOrdered B y: Anthony Salagdo on 05-13-2025 Basophils/100 WBC (Bld) 0.2 % 0-1 [facility] Bedside Glucoseon 05-13-2025 FINGERSTICK GLU 325 mg/dL High 74-106 [facility] Comment on above: Result Comment: BELLA GEMENT OF PATIENT CARE PER NURSING PROTOCOL Performed By: #### L 400.0001 #### [facility] [address] [place], [address] FINGERSTICK GLU 190 mg/dL High 74-106 [facility] Comment on above: Result Comment: BELLA GEMENT OF PATIENT CARE PER NURSING PROTOCOL Performed By: #### L 400.0001 #### [facility] [address] [place], [address] CBC W/Diff, Automatedon 04-25 Absolute Lymph 1.93 X10 3/uL Normal 0.83-4.51 [facility] Comment on above: Performed By: #### L 503.5510, L500.3400, L500.2500, L100.0100 #### [facility] [address] [place], [address] Absolute Neut 8.9 X10 3/uL High 2.0-7.7 [facility] Comment on above: Performed By: #### L 503.5510, L500.3400, L500.2500, L100.0100 #### [facility] [address] [place], [address] Basophils/100 WBC (Bld) 0.2 % Normal 0-1 [facility] Comment on above: Performed By: #### L 503.5510, L500.3400, L500.2500, L100.0100 #### [facility] [address] [place], [address] Eosinophils/100 WBC (Bld) 0.9 % Normal 0-5 [facility] Comment on above: Performed By: #### L 503.5510, L500.3400, L500.2500, L100.0100 #### [facility] [address] [place], [address] Erythrocyte distribution width (RBC) [Ratio] 18.4 % High 11.6-14.6 [facility] Comment on above: Performed By: #### L 503.5510, L500.3400, L500.2500, L100.0100 #### [facility] [address] [place], [address] Hematocrit (Bld) [Volume fraction] 25.4 % Low 40-54 [facility] Comment on above: Performed By: #### L 503.5510, L500.3400, L500.2500, L100.0100 #### [facility] [address] [place], [address] Hemoglobin (Bld) [Mass/Vol] 7.7 g/dL Low 13.0-16.5 [facility] Comment on above: Performed By: #### L 503.5510, L500.3400, L500.2500, L100.0100 #### [facility] [address] [place], [address] IG% 0.300 Normal 0.0-0.9 [facility] Comment on above: Result Comment: IG% - Immature Granulocytes (promyelocytes, myelocytes and metamyelocytes) > 1% indicates that a LEFT SHIFT is Present. Performed By: #### L 503.5510, L500.3400, L500.2500, L100.0100 #### [facility] [address] [place], [address] Lymphocytes/100 WBC (Bld) 16.4 % Low 19-41 [facility] Comment on above: Performed By: #### L 503.5510, L500.3400, L500.2500, L100.0100 #### [facility] [address] [place], [address] MCH (RBC) [Entitic mass] 19.7 pg Low 27.0-32.0 [facility] Comment on above: Performed By: #### L 503.5510, L500.3400, L500.2500, L100.0100 #### [facility] [address] [place], [address] MCHC (RBC) [Mass/Vol] 30.3 g/dL Low 32-36 [facility] Comment on above: Performed By: #### L 503.5510, L500.3400, L500.2500, L100.0100 #### [facility] [address] [place], [address] MCV (RBC) [Entitic vol] 65.0 fL Low 80-94 [facility] Comment on above: Performed By: #### L 503.5510, L500.3400, L500.2500, L100.0100 #### [facility] [address] [place], [address] Monocytes/100 WBC (Bld) 6.5 % Normal 0-10 [facility] Comment on above: Performed By: #### L 503.5510, L500.3400, L500.2500, L100.0100 #### [facility] [address] [place], [address] Neutrophils/100 WBC (Bld) 75.7 % High 47-70 [facility] Comment on above: Performed By: #### L 503.5510, L500.3400, L500.2500, L100.0100 #### [facility] [address] [place], [address] Nucleated RBC (Bld) [#/Vol] 0 10*3/uL Normal 0-5 [facility] Comment on above: Performed By: #### L 503.5510, L500.3400, L500.2500, L100.0100 #### [facility] [address] [place], [address] Platelet mean volume (Bld) [Entitic vol] 10.0 fL Normal 6.2-12.0 [facility] Comment on above: Performed By: #### L 503.5510, L500.3400, L500.2500, L100.0100 #### [facility] [address] [place], [address] Platelets (Bld) [#/Vol] 358 10*3/uL Normal 150-450 [facility] Comment on above: Performed By: #### L 503.5510, L500.3400, L500.2500, L100.0100 #### [facility] [address] [place], [address] RBC (Bld) [#/Vol] 3.91 10*6/uL Low 4.6-6.2 [facility] Comment on above: Performed By: #### L 503.5510, L500.3400, L500.2500, L100.0100 #### [facility] [address] [place], [address] RDW SD 43.1 fl Normal 35.1-43.9 [facility] Comment on above: Performed By: #### L 503.5510, L500.3400, L500.2500, L100.0100 #### [facility] [address] [place], [address] WBC (Bld) [#/Vol] 11.8 10*3/uL High 4.4-11.0 [facility] Comment on above: Performed By: #### L 503.5510, L500.3400, L500.2500, L100.0100 #### [facility] [address] [place], [address] Carbon dioxide, total [Moles /volume] in Central venous bloodOrdered By: Anthony Salgado on 05-13-2025 CO2 [Moles/Vol] 22.8 mmol/L 21.0-32.0 [facility] Chloride assayOrdered By: Venessa Salgado on 05-13-2025 Chloride [Moles/Vol] 104 mmol/L 98-108 [facility] Eosinophil percentageOrdered By: Anthony Salgado on 05-13-2025 Eosinophils/100 WBC (Bld) 0.9 % 0-5 [facility] Erythrocyte distribution wid th ratioOrdered By: Anthony Salgado on 05-13-2025 Erythrocyte distribution width (RBC) [Ratio] 18.4 % High 11.6-14.6 [facility] Erythrocyte distribution wid th standard deviationOrdered By: Anthony Salgado on 05-13-2025 Erythrocyte distribution width (RBC) [Ratio] 43.1 fl 35.1-43.9 [facility] Glomerular filtration rate ( GFR) estimation/1.73 sq m using serum, plasma, or whole bOrdered By: Anthony Salgado on 05-13-2025 GFR/1.73 sq M.predicted among non-blacks MDRD (S/P/Bld) [Vol rate/Area] 72 mL/min/{1.73_m2} >60 [facility] Comment on above: mL/min/1.73m2 CKD-EP I Creatinine Equation (2020) Glucose measurement at bedsi deOrdered By: Anthony Salgado on 05-13-2025 Glucose [Mass/Vol] 325 mg/dL High 74-106 [facility] Comment on above: MANAGEMENT OF PATIEN T CARE PER NURSING PROTOCOL Hematocrit Auto (Bld) [Volum e fraction]Ordered By: Anthony Salgado on 05-13-2025 Hematocrit (Bld) [Volume fraction] 25.4 % Low 40-54 [facility] Hemoglobin measurementOrdere d By: Anthony Salgado on 05-13-2025 Hemoglobin (Bld) [Mass/Vol] 7.7 g/dL Low 13.0-16.5 [facility] Immature granulocytes/100 WB C Auto (Bld)Ordered By: Anthony Salgado on 05-13-2025 Immature granulocytes/100 WBC (Bld) 0.300 % 0.0-0.9 [facility] Comment on above: IG% - Immature Granu locytes (promyelocytes, myelocytes and metamyelocytes) > 1% indicates that a LEFT SHIFT is Present. MCV (mean corpuscular volume ) determinationOrdered By: Anthony Salgado on 05-13-2025 MCV (RBC) [Entitic vol] 65.0 fL Low 80-94 [facility] Mean corpuscular hemoglobin (MCH) determinationOrdered By: Anthony Salgado on 05-13-2025 MCH (RBC) [Entitic mass] 19.7 pg Low 27.0-32.0 [facility] Mean corpuscular hemoglobin concentration (MCHC) determinationOrdered By: Anthony Salgado on 05-13-2025 MCHC (RBC) [Mass/Vol] 30.3 g/dL Low 32-36 [facility] Mean platelet volume determi nationOrdered By: nAthony Salgado on 05-13-2025 Platelet mean volume (Bld) [Entitic vol] 10.0 fL 6.2-12.0 [facility] Monocyte percentageOrdered B y: Anthony Salgado on 05-13-2025 Monocytes/100 WBC (Bld) 6.5 % 0-10 [facility] Neutrophil percentageOrdered By: Anthony Salgado on 05-13-2025 Neutrophils/100 WBC (Bld) 75.7 % High 47-70 [facility] Nucleated red blood cell per centageOrdered By: Anthony Salgado on 05-13-2025 Nucleated RBC/100 WBC (Bld) [Ratio] 0 % 0-5 [facility] Platelet countOrdered By: Venessa Salgado on 05-13-2025 Platelets (Bld) [#/Vol] 358 10*3/uL 150-450 [facility] Potassium measurement (mass/ volume)Ordered By: Anthony Salgado on 05-13-2025 Potassium (Unsp spec) [Mass/Vol] 3.2 mmol/L Low 3.3-5.1 [facility] RBC Auto (Bld) [#/Vol]Ordere d By: Anthony Salgado on 05-13-2025 RBC (Bld) [#/Vol] 3.91 10*6/uL Low 4.6-6.2 [facility] Serum creatinine measurement (mass/volume)Ordered By: Anthony Salgado on 05-13-2025 Creatinine [Mass/Vol] 1.07 mg/dL 0.70-1.20 [facility] Serum glucose measurement (m ass/volume)Ordered By: Anthony Salgado on 05-13-2025 Glucose [Mass/Vol] 207 mg/dL High 70-99 [facility] Serum or plasma calcium ivania urement (mass/volume)Ordered By: Anthony Salgado on 05-13-2025 Calcium [Mass/Vol] 9.7 mg/dL 7.6-11.0 [facility] Serum or plasma urea nitroge n measurement (mass/volume)Ordered By: Anthony Salgado on 05-13-2025 Urea nitrogen [Mass/Vol] 10 mg/dL 4-19 [facility] Sodium levelOrdered By: J Luis Salgado on 05-13-2025 Sodium [Moles/Vol] 137 mmol/L 133-145 [facility] Trough vancomycin levelOrder ed By: Lane Stanley on 05-13-2025 Vancomycin trough [Mass/Vol] 8.6 ug/mL 5.0-15.0 [facility] Comment on above: Recommended goal tro ugh [...] therapy recommended for serious lifethreatening infections include:- Qnijnfhalh-Wmqqofgrhqrk-Mveinjhvh (Ventilator/Healtcare Associated)-Sepsis PLEASE CONTACT PHARMACY SERVICES (#[id number]) FOR INTERPRETATIONOF RESULTS. Vancomycin, Trough Levelon 0 05-13-2025 VANCO, TROUGH 8.6 ug/mL Normal 5.0-15.0 [facility] Comment on above: Order Comment: Comme nts: Trough to be drawn 30 mins prior to scheduled [id number] Result Comment: Jose A mmended goal trough [...] (Ventilator/Healtcare Associated) -Sepsis PLEASE CONTACT PHARMACY SERVICES (#[id number]) FOR INTERPRETATION OF RESULTS. Performed By: #### L 503.5510, L500.3400, L500.2500, L100.0100 #### [facility] [address] [place] [address]. [place], [place], [id number] White blood cell (WBC) count Ordered By: Anthony Salgado on 05-13-2025 WBC (Bld) [#/Vol] 11.8 10*3/uL High 4.4-11.0 [facility] Basic Metabolic Profile (BMP )on 05-12-2025 BUN/CRE 10.8 RATIO Normal 10-20 [facility] Comment on above: Performed By: #### L 503.5510, L500.3400, L500.2500, L100.0100 #### [facility] [address] [place], [address] Calcium [Mass/Vol] 10.3 mg/dL Normal 7.6-11.0 [facility] Comment on above: Performed By: #### L 503.5510, L500.3400, L500.2500, L100.0100 #### [facility] [address] [place], [address] Chloride [Moles/Vol] 103 mmol/L Normal 98-108 [facility] Comment on above: Performed By: #### L 503.5510, L500.3400, L500.2500, L100.0100 #### [facility] [address] [place], [address] CO2 [Moles/Vol] 23.7 mmol/L Normal 21.0-32.0 [facility] Comment on above: Performed By: #### L 503.5510, L500.3400, L500.2500, L100.0100 #### [facility] [address] [place], [address] Creatinine [Mass/Vol] 0.92 mg/dL Normal 0.70-1.20 [facility] Comment on above: Performed By: #### L 503.5510, L500.3400, L500.2500, L100.0100 #### [facility] [address] [place], [address] ECRCL 62.32 ml/min Normal 50-250 [facility] Comment on above: Performed By: #### L 503.5510, L500.3400, L500.2500, L100.0100 #### [facility] [address] [place], [address] GAP 11 Normal 5-15 [facility] Comment on above: Performed By: #### L 503.5510, L500.3400, L500.2500, L100.0100 #### [facility] [address] [place], [address] GFR/1.73 sq M.predicted among non-blacks MDRD (S/P/Bld) [Vol rate/Area] 87 mL/min/{1.73_m2} Normal >60 [facility] Comment on above: Result Comment: mL/m in/1.73m2 CKD-EPI Creatinine Equation (2020) Performed By: #### L 503.5510, L500.3400, L500.2500, L100.0100 #### [facility] [address] [place], [address] Glucose [Mass/Vol] 159 mg/dL High 70-99 [facility] Comment on above: Performed By: #### L 503.5510, L500.3400, L500.2500, L100.0100 #### [facility] [address] [place], [address] Potassium [Moles/Vol] 3.2 mmol/L Low 3.3-5.1 [facility] Comment on above: Performed By: #### L 503.5510, L500.3400, L500.2500, L100.0100 #### [facility] [address] [place], [address] Sodium [Moles/Vol] 138 mmol/L Normal 133-145 [facility] Comment on above: Performed By: #### L 503.5510, L500.3400, L500.2500, L100.0100 #### [facility] [address] [place], [address] Urea nitrogen [Mass/Vol] 10 mg/dL Normal 4-19 [facility] Comment on above: Performed By: #### L 503.5510, L500.3400, L500.2500, L100.0100 #### [facility] [address] [place], [address] Bedside Glucoseon 05-12-2025 FINGERSTICK GLU 330 mg/dL [address] Comment on above: Result Comment: BELLA GEMENT OF PATIENT CARE PER NURSING PROTOCOL Performed By: #### L 400.0001 #### [facility] [address] [place], [address] FINGERSTICK GLU 278 mg/dL High [address] [place] [address] Comment on above: Result Comment: BELLA GEMENT OF PATIENT CARE PER NURSING PROTOCOL Performed By: #### L 503.5510, L500.3400, L500.2500, L100.0100 #### [facility] [address] [place], [address] FINGERSTICK GLU 310 mg/dL High [address] [place] [address] Comment on above: Result Comment: BELLA GEMENT OF PATIENT CARE PER NURSING PROTOCOL Performed By: #### L 503.5510, L500.3400, L500.2500, L100.0100 #### [facility] [address] [place], [address] FINGERSTICK GLU 160 mg/dL [address] Comment on above: Result Comment: BELLA GEMENT OF PATIENT CARE PER NURSING PROTOCOL Performed By: #### L 400.0001 #### [facility] [address] [place], [address] FINGERSTICK GLU 242 mg/dL High [address] [place] [address] Comment on above: Result Comment: BELLA GEMENT OF PATIENT CARE PER NURSING PROTOCOL Performed By: #### L 503.5510, L500.3400, L500.2500, L100.0100 #### [facility] [address] [place], [address] Bilirubin directOrdered By: Lane Stanley on 05-12-2025 Bilirubin.direct [Mass/Vol] 0.23 mg/dL 0.00-0.30 [facility] Bilirubin, totalOrdered By: Lane Stanley on 05-12-2025 Bilirubin [Mass/Vol] 0.44 mg/dL 0.00-1.30 [facility] Brain/Head W/WO Contraston 0 05-12-2025 Brain/Head W/WO Contrast [facility] Services [address] [place] [address] Brain/Head W/WO Contrast MR#: [id number] Acct: [id number] Name: ITZEL ALONZO Rep #: [id number] : 1950 M 74 From: Joaquin Kiser PCP: SID Haro Status: ADM IN Study: Brain/Head W/WO Contrast Date of Exam: 5 Exam# [id number] Ordering Dr: Anthony Salgado MD PROCEDURE: BRAIN/HEAD [...] mass. No acute intracranial process. Reading Location: [id number] CC: WILDLIFE TECHNICIAN-René Haji; Dr. Anthony Salgado MD Drier Operator Head: Signed Normal [facility] CBC-Complete Blood Cnt No Di ffon 05-12-2025 Erythrocyte distribution width (RBC) [Ratio] 18.6 % High 11.6-14.6 [facility] Comment on above: Performed By: #### L 503.5510, L500.3400, L500.2500, L100.0100 #### [facility] [address] [place], [address] Hematocrit (Bld) [Volume fraction] 27.8 % Low 40-54 [facility] Comment on above: Performed By: #### L 503.5510, L500.3400, L500.2500, L100.0100 #### [facility] [address] [place], [address] Hemoglobin (Bld) [Mass/Vol] 8.4 g/dL Low 13.0-16.5 [facility] Comment on above: Performed By: #### L 503.5510, L500.3400, L500.2500, L100.0100 #### [facility] [address] [place], [address] MCH (RBC) [Entitic mass] 19.6 pg Low 27.0-32.0 [facility] Comment on above: Performed By: #### L 503.5510, L500.3400, L500.2500, L100.0100 #### [facility] [address] [place], [address] MCHC (RBC) [Mass/Vol] 30.2 g/dL Low 32-36 [facility] Comment on above: Performed By: #### L 503.5510, L500.3400, L500.2500, L100.0100 #### [facility] [address] [place], [address] MCV (RBC) [Entitic vol] 65.0 fL Low 80-94 [facility] Comment on above: Performed By: #### L 503.5510, L500.3400, L500.2500, L100.0100 #### [facility] [address] [place], [address] Platelet mean volume (Bld) [Entitic vol] 9.8 fL Normal 6.2-12.0 [facility] Comment on above: Performed By: #### L 503.5510, L500.3400, L500.2500, L100.0100 #### [facility] [address] [place], [address] Platelets (Bld) [#/Vol] 411 10*3/uL Normal 150-450 [facility] Comment on above: Performed By: #### L 503.5510, L500.3400, L500.2500, L100.0100 #### [facility] [address] [place], [address] RBC (Bld) [#/Vol] 4.28 10*6/uL Low 4.6-6.2 [facility] Comment on above: Performed By: #### L 503.5510, L500.3400, L500.2500, L100.0100 #### [facility] [address] [place], [address] RDW SD 43.0 fl Normal 35.1-43.9 [facility] Comment on above: Performed By: #### L 503.5510, L500.3400, L500.2500, L100.0100 #### [facility] [address] [place], [address] WBC (Bld) [#/Vol] 13.2 10*3/uL High 4.4-11.0 [facility] Comment on above: Performed By: #### L 503.5510, L500.3400, L500.2500, L100.0100 #### [facility] [address] [place], [address] Electrocardiogram reportOrde red By: Kevin Joshi on 06-18-2025 EKG study [facility] Services [address] [place] [address] 12 Lead EKG 05/11/25 1709 MR#: [id number] Acct: [id number] Name: ITZEL ALONZO Rep #:[id number] : 1950 74 From: Kevin Joshi MD Attending Dr: Dr. Anthony Salgado MD Status: ADM IN Ordering Dr: Monty Clarke MD Date: 05/11 Location: [facility] Sex: M AA Admitted: 05/11/25 Test Reason : GENERAL Blood Pressure : */* mmHG Vent. Rate : 91 BPM Atrial Rate : 91 BPM P-R Int : 150 ms QRS Dur : 90 ms QT Int : 386 ms P-R-T Axes : 47 58 53 degrees QTcB Int : 474 ms Normal sinus rhythm Normal ECG Confirmed by KEVIN JOSHI MD ([id number]), pictures editor JOSE NYE ([id number]) on 05/12/2025 8:27:44 AM Referred By: Confirmed By: KEVIN JOSHI MD 05/12/25 0827 Date _ Kevin Joshi MD CC: WILDLIFE TECHNICIANNissa Haji; Dr. Anthony Salgado MD; Dr. Monty Clarke MD ~ Signed [facility] Other Phone: Laboratory - Chemistry and C hemistry - challengeOrdered By: Lane Stanley on 05-12-2025 AST [Catalytic activity/Vol] 23 U/L <38 [facility] Liver Profileon 05-12-2025 Albumin [Mass/Vol] 3.3 g/dL Low 3.4-4.8 [facility] Comment on above: Performed By: #### L 503.6431, L500.3400, L500.2500, L100.0100 #### [facility] [address] [place], [address] ALK PHOS 131 U/L High 40-129 [facility] Comment on above: Performed By: #### L 503.5510, L500.3400, L500.2500, L100.0100 #### [facility] [address] [place], [address] ALT [Catalytic activity/Vol] 11 U/L Normal <=46 [facility] Comment on above: Performed By: #### L 503.5510, L500.3400, L500.2500, L100.0100 #### [facility] [address] [place], [address] AST [Catalytic activity/Vol] 23 U/L Normal <=37 [facility] Comment on above: Performed By: #### L 503.5510, L500.3400, L500.2500, L100.0100 #### [facility] [address] [place], [address] Bilirubin [Mass/Vol] 0.44 mg/dL Normal 0.00-1.30 [facility] Comment on above: Performed By: #### L 503.5510, L500.3400, L500.2500, L100.0100 #### [facility] [address] [place], [address] Bilirubin.direct [Mass/Vol] 0.23 mg/dL Normal 0.00-0.30 [facility] Comment on above: Performed By: #### L 503.5510, L500.3400, L500.2500, L100.0100 #### [facility] [address] [place], [address] Globulin (S) [Mass/Vol] 3.8 g/dL Normal 2.2-4.2 [facility] Comment on above: Performed By: #### L 503.5510, L500.3400, L500.2500, L100.0100 #### [facility] [address] [place], [address] T PROT 7.1 g/dL Normal 5.9-8.4 [facility] Comment on above: Performed By: #### L 503.5537, L500.5830, L500.2500, L100.0100 #### [facility] [address] [place], [address] No Panel InformationOrdered By: Lane Stanley on 05-12-2025 23 U/L <38 [facility] Serum globulin measurementOr dered By: Lane Stanley on 05-12-2025 Globulin (S) [Mass/Vol] 3.8 g/dL 2.2-4.2 [facility] Serum or plasma alanine stahl otransferase (ALT) measurementOrdered By: Lane Stanley on 05-12-2025 ALT [Catalytic activity/Vol] 11 U/L <47 [facility] Serum or plasma albumin ivania urement (mass/volume)Ordered By: Lane Stanley on 05-12-2025 Albumin [Mass/Vol] 3.3 g/dL Low 3.4-4.8 [facility] Serum or plasma alkaline brittany sphatase measurementOrdered By: Lane Stanley on 05-12-2025 ALP [Catalytic activity/Vol] 131 U/L High 40-129 [facility] Total proteinOrdered By: Eileen Stanley on 05-12-2025 Protein [Mass/Vol] 7.1 g/dL 5.9-8.4 [facility] 12 Lead EKGon 05-11-2025 12 Lead EKG [facility] Cardiovascular Services [address] [place] [address] 12 Lead EKG 05/11/25 1709 MR#: [id number] Acct: [id number] Name: ITZEL ALONZO Rep #: [id number] : 1950 74 From: Kevin Joshi MD Attending Dr: Dr. Anthony Salgado MD Status: ADM IN Ordering Dr: Monty Clarke MD Date: 05/11/25 Location: [facility] Sex: M AA Admitted: 05/11/25 Test Reason : GENERAL Blood Pressure : */* mmHG Vent. Rate : 91 BPM Atrial Rate : 91 BPM P-R Int : 150 ms QRS Dur : 90 ms QT Int : 386 ms P-R-T Axes : 47 58 53 degrees QTcB Int : 474 ms Normal sinus rhythm Normal ECG Confirmed by KEVIN JOSHI MD ([id number]), pictures editor JOSE NYE ([id number]) on 05/12/2025 8:27:44 AM Referred By: Confirmed By: KEVIN JOSHI MD 05/12/25826 Date Kevin Joshi MD CC: SID Haji; Dr. Anthony Salgado MD; Dr. Monty Clarke MD Signed Normal [facility] Absolute lymphocyte countOrd ered By: Monty Clarke on 05-11-2025 Lymphocytes Auto (Unsp spec) [#/Vol] 2.13 10*3/uL 0.83-4.51 [facility] Absolute neutrophil countOrd ered By: Montymaria e Clarke on 05-11-2025 Neutrophils (Bld) [#/Vol] 8.6 10*3/uL High 2.0-7.7 [facility] Anion gap in Serum or Plasma Ordered By: Monty Clarke on 05-11-2025 Anion gap [Moles/Vol] 11 mmol/L 5-15 [facility] Automated lymphocyte count a s percentage of total leukocytesOrdered By: Montymaria e Clarke on 05-11-2025 Lymphocytes/100 WBC Auto (Unsp spec) 18.4 % Low 19-41 [facility] BUN/creatinine ratioOrdered By: Monty Clarke on 05-11-2025 Urea nitrogen/Creatinine [Mass ratio] 11.3 mg/mg 10-20 [facility] Basophil percentageOrdered B y: Monty Clarke on 05-11-2025 Basophils/100 WBC (Bld) 0.3 % 0-1 [facility] Bilirubin, totalOrdered By: Monty Clarke on 05-11-2025 Bilirubin [Mass/Vol] 0.41 mg/dL 0.00-1.30 [facility] CBC W/Diff, Automatedon 04-25 Absolute Lymph 2.13 X10 3/uL Normal 0.83-4.51 [facility] Comment on above: Performed By: #### L 503.5510, L500.3400, L500.2500, L100.0100 #### [facility] [address] [place], [address] Absolute Neut 8.6 X10 3/uL High 2.0-7.7 [facility] Comment on above: Performed By: #### L 503.5510, L500.3400, L500.2500, L100.0100 #### [facility] [address] [place], [address] Basophils/100 WBC (Bld) 0.3 % Normal 0-1 [facility] Comment on above: Performed By: #### L 503.5510, L500.3400, L500.2500, L100.0100 #### [facility] [address] [place], [address] Eosinophils/100 WBC (Bld) 0.8 % Normal 0-5 [facility] Comment on above: Performed By: #### L 503.5510, L500.3400, L500.2500, L100.0100 #### [facility] [address] [place], [address] Erythrocyte distribution width (RBC) [Ratio] 19.0 % High 11.6-14.6 [facility] Comment on above: Performed By: #### L 503.5510, L500.3400, L500.2500, L100.0100 #### [facility] [address] [place], [address] Hematocrit (Bld) [Volume fraction] 28.9 % Low 40-54 [facility] Comment on above: Performed By: #### L 503.5510, L500.3400, L500.2500, L100.0100 #### [facility] [address] [place], [address] Hemoglobin (Bld) [Mass/Vol] 8.7 g/dL Low 13.0-16.5 [facility] Comment on above: Performed By: #### L 503.5510, L500.3400, L500.2500, L100.0100 #### [facility] [address] [place], [address] IG% 0.400 Normal 0.0-0.9 [facility] Comment on above: Result Comment: IG% - Immature Granulocytes (promyelocytes, myelocytes and metamyelocytes) > 1% indicates that a LEFT SHIFT is Present. Performed By: #### L 503.5510, L500.3400, L500.2500, L100.0100 #### [facility] [address] [place], [address] Lymphocytes/100 WBC (Bld) 18.4 % Low 19-41 [facility] Comment on above: Performed By: #### L 503.5510, L500.3400, L500.2500, L100.0100 #### [facility] [address] [place], [address] MCH (RBC) [Entitic mass] 20.0 pg Low 27.0-32.0 [facility] Comment on above: Performed By: #### L 503.5510, L500.3400, L500.2500, L100.0100 #### [facility] [address] [place], [address] MCHC (RBC) [Mass/Vol] 30.1 g/dL Low 32-36 [facility] Comment on above: Performed By: #### L 503.5510, L500.3400, L500.2500, L100.0100 #### [facility] [address] [place], [address] MCV (RBC) [Entitic vol] 66.4 fL Low 80-94 [facility] Comment on above: Performed By: #### L 503.5510, L500.3400, L500.2500, L100.0100 #### [facility] [address] [place], [address] Monocytes/100 WBC (Bld) 5.8 % Normal 0-10 [facility] Comment on above: Performed By: #### L 503.5510, L500.3400, L500.2500, L100.0100 #### [facility] [address] [place], [address] Neutrophils/100 WBC (Bld) 74.3 % High 47-70 [facility] Comment on above: Performed By: #### L 503.5510, L500.3400, L500.2500, L100.0100 #### [facility] [address] [place], [address] Nucleated RBC (Bld) [#/Vol] 0 10*3/uL Normal 0-5 [facility] Comment on above: Performed By: #### L 503.5510, L500.3400, L500.2500, L100.0100 #### [facility] [address] [place], [address] Platelet mean volume (Bld) [Entitic vol] 9.5 fL Normal 6.2-12.0 [facility] Comment on above: Performed By: #### L 503.5510, L500.3400, L500.2500, L100.0100 #### [facility] [address] [place], [address] Platelets (Bld) [#/Vol] 404 10*3/uL Normal 150-450 [facility] Comment on above: Performed By: #### L 503.5510, L500.3400, L500.2500, L100.0100 #### [facility] [address] [place], [address] RBC (Bld) [#/Vol] 4.35 10*6/uL Low 4.6-6.2 [facility] Comment on above: Performed By: #### L 503.5510, L500.3400, L500.2500, L100.0100 #### [facility] [address] [place], [address] RDW SD 44.7 fl High 35.1-43.9 [facility] Comment on above: Performed By: #### L 503.5510, L500.3400, L500.2500, L100.0100 #### [facility] [address] [place], [address] WBC (Bld) [#/Vol] 11.6 10*3/uL High 4.4-11.0 [facility] Comment on above: Performed By: #### L 503.5510, L500.3400, L500.2500, L100.0100 #### [facility] [address] [place], [address] Carbon dioxide, total [Moles /volume] in Central venous bloodOrdered By: Monty Clarke on 05-11-2025 CO2 [Moles/Vol] 26.3 mmol/L 21.0-32.0 [facility] Chest PA and Lateralon 05-11 Chest PA and Lateral [facility] Imaging Services [address] [place] [address] Chest PA and Lateral MR#: [id number] Acct: [id number] Name: ITZEL ALONZO Rep #: [id number] : 1950 M 74 From: Jamie Suero DO PCP: SID Haro Status: REG ER Study: Chest PA and Lateral Date of Exam: 05/11/25 Exam# [id number] Ordering Dr: Monty Clarke MD PROCEDURE: CHEST [...] associated with end-stage honeycomb fibrosis. Reading [facility] CC: SID Haji; Dr. Monty Clarke MD Drier Operator Head: Signed Normal [facility] Chloride assayOrdered By: Karin Clarke on 05-11-2025 Chloride [Moles/Vol] 99 mmol/L 98-108 [facility] Comprehensive Metabolic Prof ilon 05-11-2025 Albumin [Mass/Vol] 3.3 g/dL Low 3.4-4.8 [facility] Comment on above: Performed By: #### L 503.5510, L500.3400, L500.2500, L100.0100 #### [facility] [address] [place], [address] Albumin/Globulin [Mass ratio] 0.8 {ratio} Low 0.9-2.4 [facility] Comment on above: Performed By: #### L 503.5510, L500.3400, L500.2500, L100.0100 #### [facility] [address] [place], [address] ALK PHOS 128 U/L Normal 40-129 [facility] Comment on above: Performed By: #### L 503.5510, L500.3400, L500.2500, L100.0100 #### [facility] [address] [place], [address] ALT [Catalytic activity/Vol] 12 U/L Normal <=46 [facility] Comment on above: Performed By: #### L 503.5510, L500.3400, L500.2500, L100.0100 #### [facility] [address] [place], [address] AST [Catalytic activity/Vol] 23 U/L Normal <=37 [facility] Comment on above: Performed By: #### L 503.5510, L500.3400, L500.2500, L100.0100 #### [facility] [address] [place], [address] Bilirubin [Mass/Vol] 0.41 mg/dL Normal 0.00-1.30 [facility] Comment on above: Performed By: #### L 503.5510, L500.3400, L500.2500, L100.0100 #### [facility] [address] [place], [address] BUN/CRE 11.3 RATIO Normal 10-20 [facility] Comment on above: Performed By: #### L 503.5510, L500.3400, L500.2500, L100.0100 #### [facility] [address] [place], [address] Calcium [Mass/Vol] 11.2 mg/dL High 7.6-11.0 [facility] Comment on above: Performed By: #### L 503.5510, L500.3400, L500.2500, L100.0100 #### [facility] [address] [place], [address] Chloride [Moles/Vol] 99 mmol/L Normal 98-108 [facility] Comment on above: Performed By: #### L 503.5510, L500.3400, L500.2500, L100.0100 #### [facility] [address] [place], [address] CO2 [Moles/Vol] 26.3 mmol/L Normal 21.0-32.0 [facility] Comment on above: Performed By: #### L 503.5510, L500.3400, L500.2500, L100.0100 #### [facility] [address] [place], [address] Creatinine [Mass/Vol] 1.20 mg/dL Normal 0.70-1.20 [facility] Comment on above: Performed By: #### L 503.5510, L500.3400, L500.2500, L100.0100 #### [facility] [address] [place], [address] ECRCL 49.04 ml/min Low 50-250 [facility] Comment on above: Performed By: #### L 503.5510, L500.3400, L500.2500, L100.0100 #### [facility] [address] [place], [address] GAP 11 Normal 5-15 [facility] Comment on above: Performed By: #### L 503.5510, L500.3400, L500.2500, L100.0100 #### [facility] [address] [place], [address] GFR/1.73 sq M.predicted among non-blacks MDRD (S/P/Bld) [Vol rate/Area] 63 mL/min/{1.73_m2} Normal >60 [facility] Comment on above: Result Comment: mL/m in/1.73m2 CKD-EPI Creatinine Equation (2020) Performed By: #### L 503.5510, L500.3400, L500.2500, L100.0100 #### [facility] [address] [place], [address] Globulin (S) [Mass/Vol] 4.2 g/dL Normal 2.2-4.2 [facility] Comment on above: Performed By: #### L 503.5510, L500.3400, L500.2500, L100.0100 #### [facility] [address] [place], [address] Glucose [Mass/Vol] 244 mg/dL High 70-99 [facility] Comment on above: Performed By: #### L 503.5510, L500.3400, L500.2500, L100.0100 #### [facility] [address] [place], [address] Potassium [Moles/Vol] 3.5 mmol/L Normal 3.3-5.1 [facility] Comment on above: Performed By: #### L 503.5510, L500.3400, L500.2500, L100.0100 #### [facility] [address] [place], [address] Sodium [Moles/Vol] 136 mmol/L Normal 133-145 [facility] Comment on above: Performed By: #### L 503.5510, L500.3400, L500.2500, L100.0100 #### [facility] [address] [place], [address] T PROT 7.4 g/dL Normal 5.9-8.4 [facility] Comment on above: Performed By: #### L 503.5510, L500.3400, L500.2500, L100.0100 #### [facility] [address] [place], [address] Urea nitrogen [Mass/Vol] 14 mg/dL Normal 4-19 [facility] Comment on above: Performed By: #### L 503.5510, L500.3400, L500.2500, L100.0100 #### [facility] [address] [place], [address] Emergency Department Summary on 05-11-2025 Emergency Department Summary [facility] Medical Records Department [address] [place] [address] Emergency Department Summary 05/11/25 MR#: [id number] Acct: [id number] Name: ITZEL ALONZO Rep #: [id number] : 1950 74 From: Monty Clarke MD PCP: Carlene Haji, SID Status:ADM IN Location: [place] [address] Monty Clarke MD on 05/11/25 at 2107 EKG was obtained 1709 interpreted by me at 1711. The EKG is normal. Rate is 91. AK interval, QRS duration, QT duration and axis are all normal. 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 [...] similar symptoms: No Recent Illness/Hospitalizati on: Yes [facility] Medical History (Updated 05/11/25 @ 18:41 by [...] smoker tobacco (more content not included)... Normal [facility] Eosinophil percentageOrdered By: Montymaria e Clarke on 05-11-2025 Eosinophils/100 WBC (Bld) 0.8 % 0-5 [facility] Erythrocyte distribution wid th ratioOrdered By: Montymaria e Clarke on 05-11-2025 Erythrocyte distribution width (RBC) [Ratio] 19.0 % High 11.6-14.6 [facility] Erythrocyte distribution wid th standard deviationOrdered By: Montymaria e Clarke on 05-11-2025 Erythrocyte distribution width (RBC) [Ratio] 44.7 fl High 35.1-43.9 [facility] Glomerular filtration rate ( GFR) estimation/1.73 sq m using serum, plasma, or whole bOrdered By: Montymaria e Clarke on 05-11-2025 GFR/1.73 sq M.predicted among non-blacks MDRD (S/P/Bld) [Vol rate/Area] 63 mL/min/{1.73_m2} >60 [facility] Comment on above: mL/min/1.73m2 CKD-EP I Creatinine Equation (2020) H AND P Exam - [facility] 05-11-2025 H&P Exam - Hospitalist [facility] Medical Records Department [address] [place] [address] H P Exam - Hospitalist 05/11/251918 MR#: [id number] Acct: [id number] Name: ITZEL ALONZO Rep #: [id number] : 1950 74 From: Lane Stanley DO PCP: Carlene N Adithya, WILDLIFE TECHNICIAN-C Status:ADM IN Location: [facility] [id number] HPI - General General Date of Admission: 05/11/25 Date of Service: 05/11/25 Chief Complaint: Worsening fatigue, weakness and confusion HPI Narrative ITZEL ALONZO, is a 74 M who presented to [facility] ED on 05/11/2025 with worsening fatigue, weakness and confusion. Patient has been seen in our ED recently but he receives [facility] care through [facility]. He was diagnosed with right-sided lung cancer about 1 year ago. It appears this diagnosis was confirmed on bronchial biopsy. Patient declined active treatment at that time and preferred close monitoring. However, patient has issues with transportation and has had difficulty getting to his appointments with oncology at the [facility]. He lives at home with his significant [...] phone with the transfer nurse with the [facility] liliana goodman. Nurse noted that transfer could be initiated there but as the admitting physician was gone for the day, transfer will not happen until tomorrow at the earliest. [facility] Medical History (Updated 05/12/25 @ 00:00 [...] household members (more content not included)... Normal [facility] Hematocrit Auto (Bld) [Volum e fraction]Ordered By: Monty Clarke on 05-11-2025 Hematocrit (Bld) [Volume fraction] 28.9 % Low 40-54 [facility] Hemoglobin measurementOrdere d By: Monty Clarke on 05-11-2025 Hemoglobin (Bld) [Mass/Vol] 8.7 g/dL Low 13.0-16.5 [facility] Immature granulocytes/100 WB C Auto (Bld)Ordered By: Monty Clarke on 05-11-2025 Immature granulocytes/100 WBC (Bld) 0.400 % 0.0-0.9 [facility] Comment on above: IG% - Immature Granu locytes (promyelocytes, myelocytes and metamyelocytes) > 1% indicates that a LEFT SHIFT is Present. L499.0042on 05-11-2025 Trop T High Sen 37 ng/L High <=22 [facility] Comment on above: Performed By: #### L 400.0001 #### [facility] [address] [place], [address] L499.0043on 05-11-2025 Trop T High Sen 39 ng/L High <=22 [facility] Comment on above: Performed By: #### L 503.5510, L500.3400, L500.2500, L100.0100 #### [facility] [address] [place], [address] L501.4021on 05-11-2025 Trop T High Sen 39 ng/L High <=22 [facility] Comment on above: Performed By: #### L 400.0001 #### [facility] [address] [place], [address] Laboratory - Chemistry and C hemistry - challengeOrdered By: Monty Clarke on 05-11-2025 AST [Catalytic activity/Vol] 23 U/L <38 [facility] Lactic Acidon 05-11-2025 Lactate [Moles/Vol] 1.8 mmol/L Normal 0.0-2.0 [facility] Comment on above: Order Comment: Y Performed By: #### L 503.3975, L500.3400, L500.2500, L100.0100 #### [facility] [address] [place], [address] Lactic acid measurementOrder ed By: Monty Clarke on 05-11-2025 Lactate [Moles/Vol] 1.8 mmol/L 0.0-2.0 [facility] MCV (mean corpuscular volume ) determinationOrdered By: Monty Clarke on 05-11-2025 MCV (RBC) [Entitic vol] 66.4 fL Low 80-94 [facility] Mean corpuscular hemoglobin (MCH) determinationOrdered By: Monty Clarke on 05-11-2025 MCH (RBC) [Entitic mass] 20.0 pg Low 27.0-32.0 [facility] Mean corpuscular hemoglobin concentration (MCHC) determinationOrdered By: Monty Clarke on 05-11-2025 MCHC (RBC) [Mass/Vol] 30.1 g/dL Low 32-36 [facility] Mean platelet volume determi nationOrdered By: Monty Clarke on 05-11-2025 Platelet mean volume (Bld) [Entitic vol] 9.5 fL 6.2-12.0 [facility] Monocyte percentageOrdered B y: Monty Clarke on 05-11-2025 Monocytes/100 WBC (Bld) 5.8 % 0-10 [facility] Neutrophil percentageOrdered By: Monty Clarke on 05-11-2025 Neutrophils/100 WBC (Bld) 74.3 % High 47-70 [facility] Nucleated red blood cell per centageOrdered By: Monty Clarke on 05-11-2025 Nucleated RBC/100 WBC (Bld) [Ratio] 0 % 0-5 [facility] Platelet countOrdered By: [facility] Clarke on 05-11-2025 Platelets (Bld) [#/Vol] 404 10*3/uL 150-450 [facility] Potassium measurement (mass/ volume)Ordered By: Monty Clarke on 05-11-2025 Potassium (Unsp spec) [Mass/Vol] 3.5 mmol/L 3.3-5.1 [facility] RBC Auto (Bld) [#/Vol]Ordere d By: Monty Clarke on 05-11-2025 RBC (Bld) [#/Vol] 4.35 10*6/uL Low 4.6-6.2 [facility] Serum creatinine measurement (mass/volume)Ordered By: Monty Clarke on 05-11-2025 Creatinine [Mass/Vol] 1.20 mg/dL 0.70-1.20 [facility] Serum globulin measurementOr dered By: Monty Clarke on 05-11-2025 Globulin (S) [Mass/Vol] 4.2 g/dL 2.2-4.2 [facility] Serum glucose measurement (m ass/volume)Ordered By: Monty Clarke on 05-11-2025 Glucose [Mass/Vol] 244 mg/dL High 70-99 [facility] Serum or plasma alanine stahl otransferase (ALT) measurementOrdered By: Monty Clarke on 05-11-2025 ALT [Catalytic activity/Vol] 12 U/L <47 [facility] Serum or plasma albumin ivania urement (mass/volume)Ordered By: Monty Clarke 05-11-2025 Albumin [Mass/Vol] 3.3 g/dL Low 3.4-4.8 [facility] Serum or plasma albumin/glob ulin mass ratioOrdered By: Monty Clarke 05-11-2025 Albumin/Globulin [Mass ratio] 0.8 {ratio} Low 0.9-2.4 [facility] Serum or plasma alkaline brittany sphatase measurementOrdered By: Montymaria e Clarke on 05-11-2025 ALP [Catalytic activity/Vol] 128 U/L 40-129 [facility] Serum or plasma calcium ivania urement (mass/volume)Ordered By: Monty Clarke on 05-11-2025 Calcium [Mass/Vol] 11.2 mg/dL High 7.6-11.0 [facility] Serum or plasma urea nitroge n measurement (mass/volume)Ordered By: Monty Clarke on 05-11-2025 Urea nitrogen [Mass/Vol] 14 mg/dL 4-19 [facility] Sodium levelOrdered By: Monty Clarke on 05-11-2025 Sodium [Moles/Vol] 136 mmol/L 133-145 [facility] Stool Occult Blood iFOBon STOB Negative Normal [facility] Comment on above: Performed By: #### L 500.2500, L501.5200, L100.0100, L501.2300 #### [facility] [address] [place], [address] Stool gastrointestinal hemog lobin detection by immunologic methodOrdered By: Monty Clarke on 05-11-2025 Lower GI hemoglobin IA Ql (Stl) [facility] Total proteinOrdered By: Monty Clarke on 05-11-2025 Protein [Mass/Vol] 7.4 g/dL 5.9-8.4 [facility] Troponin T.cardiac [Mass/vol ume] in Serum or Plasma by High sensitivity methodOrdered By: Monty Clarke on 05-11-2025 Troponin T.cardiac High sensitivity method [Mass/Vol] 39 ng/L High <22 [facility] Troponin T.cardiac High sensitivity method [Mass/Vol] 37 ng/L High <22 [facility] Troponin T.cardiac High sensitivity method [Mass/Vol] 39 ng/L High <22 [facility] Comment on above: Delta: 26 on 5-2107 White blood cell (WBC) count Ordered By: Monty Clarke on 05-11-2025 WBC (Bld) [#/Vol] 11.6 10*3/uL High 4.4-11.0 [facility] 12 Lead EKGon 05-04-2025 12 Lead EKG [facility] Cardiovascular Services [address] [place] [address] 12 Lead EKG 05/04/25 1129 MR#: [id number] Acct: [id number] Name: ITZEL ALONZO Rep #: [id number] : 1950 74 From: Adams Connell MD [...] rhythm Normal ECG Confirmed by Adams Connell ([id number]), pictures editor KATIE ABRAHAM ([id number]) on 05/06/2025 6:12:43 AM Referred By: Confirmed By: Adams Connell 05/06/25611 Date Adams Connell MD CC: SID Haji; Dr. Ike Dawson, DO Signed Normal [facility] Absolute lymphocyte countOrd ered By: Ike Dawson on 05-04-2025 Lymphocytes Auto (Unsp spec) [#/Vol] 3.37 10*3/uL 0.83-4.51 [facility] Absolute neutrophil countOrd ered By: Ike Dawson on 05-04-2025 Neutrophils (Bld) [#/Vol] 7.0 10*3/uL 2.0-7.7 [facility] Activated partial thrombopla stin time (aPTT) in platelet poor plasma by coagulation aOrdered By: Ike Dawson on 05-04-2025 aPTT Coag (PPP) [Time] 31.9 s 24.1-36.2 [facility] Anion gap in Serum or Plasma Ordered By: Ike Dawson on 05-04-2025 Anion gap [Moles/Vol] 11 mmol/L - [facility] Automated lymphocyte count a s percentage of total leukocytesOrdered By: Ike Dawson on 05-04-2025 Lymphocytes/100 WBC Auto (Unsp spec) 29.4 % - [facility] BUN/creatinine ratioOrdered By: Iek aDwson on 05-04-2025 Urea nitrogen/Creatinine [Mass ratio] 16.9 mg/mg - [facility] Basic Metabolic Profile (BMP )on 05-04-2025 BUN/CRE 16.9 RATIO Normal 09-13 [facility] Comment on above: Performed By: #### L 503.5510, L500.3400, L500.2500, L100.0100 #### [facility] [address] [place], [address] ECRCL 50.60 ml/min Normal 50-250 [facility] Comment on above: Performed By: #### L 503.5510, L500.3400, L500.2500, L100.0100 #### [facility] [address] [place], [address] GAP 11 Normal 5-15 [facility] Comment on above: Performed By: #### L 503.5510, L500.3400, L500.2500, L100.0100 #### [facility] [address] [place], [place], [address] Potassium [Moles/Vol] 4.2 mmol/L Normal 3.3-5.1 [facility] Comment on above: Performed By: #### L 503.5510, L500.3400, L500.2500, L100.0100 #### [facility] [address] [place], [address] Basophil percentageOrdered B y: Ike Le on 05-04-2025 Basophils/100 WBC (Bld) 0.3 % 0-1 [facility] Blood polychromasia detectio n by light microscopyOrdered By: Ike Dawson on 05-04-2025 Polychromasia LM Ql (Bld) 1+ [facility] Brain/Head without Contrasto n 05-04-2025 Brain/Head without Contrast [facility] Imaging Services [address] [place] [address] Brain/Head without Contrast MR#: [id number] Acct: [id number] Name: ITZEL ALONZO Rep #: [id number] : 1950 M 74 From: Uche Kiser PCP: SID Haro Status: REG ER Study: Brain/Head without Contrast Date of Exam: 04/25 Exam# [id number] Ordering Dr: Ike Dawson DO PROCEDURE: BRAIN/HEAD [...] or other acute process noted. Reading Location: [address] CC: SID Haji; Dr. Ike Dawson DO Drier Operator Head: Signed Normal [facility] CBC W/Diff, AutomatedOrdered By: Ike Dawson on 05-04-2025 Anisocytosis Ql (Bld) 1+ Normal [facility] Comment on above: Performed By: #### L 503.5510, L500.3400, L500.2500, L100.0100 #### [facility] [address] [place], [address] CBC W/Diff, Automatedon 04-25 PLT EST A Normal ADEQ [facility] Comment on above: Performed By: #### L 503.5510, L500.3400, L500.2500, L100.0100 #### [facility] [address] [place], [address] POLYCHROMASIA 1+ Normal [facility] Comment on above: Performed By: #### L 503.5510, L500.3400, L500.2500, L100.0100 #### [facility] [address] [place], [address] Carbon dioxide, total [Moles /volume] in Central venous bloodOrdered By: Ike Dawson on 05-04-2025 CO2 [Moles/Vol] 27.6 mmol/L Normal 21.0-32.0 [facility] Comment on above: Performed By: #### L 503.5510, L500.3400, L500.2500, L100.0100 #### [facility] [address] [place], [address] Chest without Contraston Chest without Contrast [facility] Imaging Services [address] [place] [address] Chest without Contrast MR#: [id number] Acct: [id number] Name: ITZEL ALONZO [place] Rep #: [id number] : 1950 M 74 From: Lion torres MD PCP: Carlene Haji, WILDLIFE TECHNICIAN-C Status: REG ER Study: Chest without Contrast Date of Exam: 05/04/25 Exam# [id number] Ordering Dr: Ike Dawson DO PROCEDURE: CHEST [...] at the right lung base. Reading Location: [facility] CC: LUIS MIGUELC Carlene Haji; Dr. Ike Dawson DO Drier Operator Head: Signed Normal [facility] Chloride assayOrdered By: Jacinto Dawson on 05-04-2025 Chloride [Moles/Vol] 97 mmol/L Low 98-108 [facility] Comment on above: Performed By: #### L 503.5510, L500.3400, L500.2500, L100.0100 #### [facility] [address] [facility] [place], [address] Emergency Department Summary on 05-04-2025 Emergency Department Summary [facility] Medical Records Department [address] [place] [address] Emergency Department Summary 05/04/25 MR#: [id number] Acct: [id number] Name: ITZEL ALONZO Rep #: [id number] : 1950 74 From: Ike Nuñez PCP: [...] Been using intermittently last use yesterday evening. [facility] Medical History Kidney stones Neuropathy PTSD (post-traumatic [...] well no (more content not included)... Normal [facility] Eosinophil percentageOrdered By: Ike Dawson on 05-04-2025 Eosinophils/100 WBC (Bld) 1.5 % 0-5 [facility] Erythrocyte distribution wid th ratioOrdered By: Ike Dawson on 05-04-2025 Erythrocyte distribution width (RBC) [Ratio] 20.1 % High 11.6-14.6 [facility] Erythrocyte distribution wid th standard deviationOrdered By: Ike Dawson on 05-04-2025 Erythrocyte distribution width (RBC) [Ratio] 45.7 fl High 35.1-43.9 [facility] Glomerular filtration rate ( GFR) estimation/1.73 sq m using serum, plasma, or whole bOrdered By: Ike Dawson on 05-04-2025 GFR/1.73 sq M.predicted among non-blacks MDRD (S/P/Bld) [Vol rate/Area] 67 mL/min/{1.73_m2} Normal >60 [facility] Comment on above: mL/min/1.73m2 CKD-EP I Creatinine Equation (2020) Result Comment: mL/m in/1.73m2 CKD-EPI Creatinine Equation (2020) Performed By: #### L 503.5510, L500.3400, L500.2500, L100.0100 #### [facility] [address] [place], [place] [address], [address] Hematocrit Auto (Bld) [Volum e fraction]Ordered By: Ike Dawson on 05-04-2025 Hematocrit (Bld) [Volume fraction] 32.4 % Low 40-54 [facility] Hemoglobin measurementOrdere d By: Ike Dawson on 05-04-2025 Hemoglobin (Bld) [Mass/Vol] 9.8 g/dL Low 13.0-16.5 [facility] Immature granulocytes/100 WB C Auto (Bld)Ordered By: Ike Dawson on 05-04-2025 Immature granulocytes/100 WBC (Bld) 0.500 % 0.0-0.9 [facility] Comment on above: IG% - Immature Granu locytes (promyelocytes, myelocytes and metamyelocytes) > 1% indicates that a LEFT SHIFT is Present. International normalized rat io (INR) calculationOrdered By: Ike Dawson on 05-04-2025 INR Coag (Bld) [Relative time] 1.1 {INR} [facility] MCV (mean corpuscular volume ) determinationOrdered By: Ike Dawson 05-04-2025 MCV (RBC) [Entitic vol] 65.9 fL Low 80-94 [facility] Mean corpuscular hemoglobin (MCH) determinationOrdered By: Ike Dawson on 05-04-2025 MCH (RBC) [Entitic mass] 19.9 pg Low 27.0-32.0 [facility] Mean corpuscular hemoglobin concentration (MCHC) determinationOrdered By: Ike Dawson on 05-04-2025 MCHC (RBC) [Mass/Vol] 30.2 g/dL Low 32-36 [facility] Mean platelet volume determi nationOrdered By: Ike Dawson on 05-04-2025 Platelet mean volume (Bld) [Entitic vol] 9.9 fL 6.2-12.0 [facility] Monocyte percentageOrdered B y: Ike Dawson on 05-04-2025 Monocytes/100 WBC (Bld) 6.9 % 0-10 [facility] Neutrophil percentageOrdered By: Ike Dawson on 05-04-2025 Neutrophils/100 WBC (Bld) 61.4 % 47-70 [facility] No Panel InformationOrdered By: Ike Dawson on 05-04-2025 1+ [facility] Nucleated red blood cell per centageOrdered By: Ike Dawson on 05-04-2025 Nucleated RBC/100 WBC (Bld) [Ratio] 0 % 0-5 [facility] Partial Thromboplast Timeon 05-04-2025 aPTT Coag (Bld) [Time] 31.9 s Normal 24.1-36.2 [facility] Comment on above: Performed By: #### L 503.5510, L500.3400, L500.2500, L100.0100 #### [facility] [address] [place], [address] Platelet countOrdered By: Jacinto Dawson on 05-04-2025 Platelets (Bld) [#/Vol] 412 10*3/uL 150-450 [facility] Platelet estimateOrdered By: Ike Dawson on 05-04-2025 Platelets LM Ql (Bld) A ADEQ [facility] Potassium measurement (mass/ volume)Ordered By: Ike Dawson on 05-04-2025 Potassium (Unsp spec) [Mass/Vol] 4.2 mmol/L 3.3-5.1 [facility] Prothrombin Time w/INRon INR Coag (PPP) [Relative time] 1.1 {INR} Normal [facility] Comment on above: Performed By: #### L 503.5510, L500.3400, L500.2500, L100.0100 #### [facility] [address] [place], [address] Prothrombin timeOrdered By: Ike Dawson on 05-04-2025 PT Coag (PPP) [Time] 14.8 s Normal 11.7-14.9 [facility] Comment on above: Performed By: #### L 503.5510, L500.3400, L500.2500, L100.0100 #### [facility] [address] [place], [address] RBC Auto (Bld) [#/Vol]Ordere d By: Ike Dawson on 05-04-2025 RBC (Bld) [#/Vol] 4.92 10*6/uL 4.6-6.2 [facility] Serum creatinine measurement (mass/volume)Ordered By: Ike Dawson on 05-04-2025 Creatinine [Mass/Vol] 1.14 mg/dL Normal 0.70-1.20 [facility] Comment on above: Performed By: #### L 503.5510, L500.3400, L500.2500, L100.0100 #### [facility] [address] [place], [address] Serum glucose measurement (m ass/volume)Ordered By: Ike Daswon on 05-04-2025 Glucose [Mass/Vol] 229 mg/dL High 70-99 [facility] Comment on above: Performed By: #### L 503.5510, L500.3400, L500.2500, L100.0100 #### [facility] [address] [place], [address] Serum or plasma calcium ivania urement (mass/volume)Ordered By: Ike Dawson on 05-04-2025 Calcium [Mass/Vol] 12.2 mg/dL High 7.6-11.0 [facility] Comment on above: Performed By: #### L 503.5510, L500.3400, L500.2500, L100.0100 #### [facility] [address] [place], [address] Serum or plasma urea nitroge n measurement (mass/volume)Ordered By: Ike Dawson on 05-04-2025 Urea nitrogen [Mass/Vol] 19 mg/dL Normal 4-19 [facility] Comment on above: Performed By: #### L 503.5510, L500.3400, L500.2500, L100.0100 #### [facility] [address] [place], [address] Shoulder min 2 Viewson 05-04 Shoulder min 2 Views [facility] Imaging Services [address] [place] [address] Shoulder min 2 Views MR#: [id number] Acct: [id number] Name: ITZEL ALONZO Rep #: [id number] : 1950 M 74 From: Lion torres MD PCP: Carlene Haji WILDLIFE TECHNICIAN-René Status: REG ER Study: Shoulder min 2 Views Date of Exam: 05/04/25 Exam# [id number] Ordering Dr: Ike Dawson DO PROCEDURE: SHOULDER [...] with a CT scan recommended. Reading Location: [place] [address] CC: WILDLIFE TECHNICIAN-C Carlene Haji; Dr. Ike Dawson DO Drier Operator Head: Signed Normal [facility] Sodium levelOrdered By: Ike Dawson on 05-04-2025 Sodium [Moles/Vol] 136 mmol/L Normal 133-145 [facility] Comment on above: Performed By: #### L 503.5510, L500.3400, L500.2500, L100.0100 #### [facility] [address] [place], [address] Spine Cervical without Contr ason 05-04-2025 Spine Cervical without Contras [facility] Imaging Services [address] [place], [place] [address] Spine Cervical without Contras MR#: [id number] Acct: [id number] Name: ITZEL ALONZO Rep #: [id number] : 1950 M 74 From: Lion torres MD PCP: Carlene Haji, WILDLIFE TECHNICIAN-C Status: REG ER Study: Spine Cervical without Contras Date of Exam: 0 05/04/25 Exam# [id number] Ordering Dr: Ike Dawson DO PROCEDURE: SPINE [...] Right upper lobe pulmonary mass. Reading Location: [facility] CC: SID Haji; Dr. Ike Dawson DO Drier Operator Head: Signed Normal [facility] White blood cell (WBC) count Ordered By: Ike Dawson on 05-04-2025 WBC (Bld) [#/Vol] 11.5 10*3/uL High 4.4-11.0 [facility] Bedside Glucoseon 04-24-2025 FINGERSTICK GLU 137 mg/dL High 74-106 [facility] Comment on above: Result Comment: BELLA GEMENT OF PATIENT CARE PER NURSING PROTOCOL Performed By: #### L 503.5510, L500.3400, L500.2500, L100.0100 #### [facility] [address] [facility] [place], [place], [address] [facility] By: Steven Tejeda on 04-24-2025 Glucose [Mass/Vol] 137 mg/dL High 74-106 [facility] Comment on above: MANAGEMENT OF PATIEN T CARE PER NURSING PROTOCOL L499.0043on 04-24-2025 Trop T High Sen Normal <=22 [facility] Comment on above: Result Comment: Asif espitia via OM: Ordered Performed By: #### L 400.0001 #### [facility] [address] [place], [address] 12 Lead EKGon 04-23-2025 12 Lead EKG [facility] Cardiovascular Services [address] [place] [address] 12 Lead EKG 04/23/252144 MR#: [id number] Acct: [id number] Name: ITZEL ALONZO Rep #: [id number] : 1950 74 From: Adams Connell MD [...] Normal ECG Confirmed by Adams Connell ([id number]), pictures editor KATIE ABRAHAM ([id number]) on 04/26/2025 10:51:11 AM Referred By: Confirmed By: Adams Connell 04/26/25 1051 Date Adams Connell MD CC: WILDLIFE TECHNICIANNissa Haji; Dr. Steven Tejeda DO Signed Normal [facility] Absolute lymphocyte countOrd ered By: Steven Tejeda on 04-23-2025 Lymphocytes Auto (Unsp spec) [#/Vol] 3.56 10*3/uL 0.83-4.51 [facility] Absolute neutrophil countOrd ered By: Steven Tejeda on 04-23-2025 Neutrophils (Bld) [#/Vol] 8.4 10*3/uL High 2.0-7.7 [facility] Activated partial thrombopla stin time (aPTT) in platelet poor plasma by coagulation aOrdered By: Steven Tejeda on 04-23-2025 aPTT Coag (PPP) [Time] 27.9 s 24.1-36.2 [facility] Anion gap in Serum or Plasma Ordered By: Steven Tejeda on 04-23-2025 Anion gap [Moles/Vol] 11 mmol/L 5-15 [facility] Automated lymphocyte count a s percentage of total leukocytesOrdered By: Steven Tejeda on 04-23-2025 Lymphocytes/100 WBC Auto (Unsp spec) 27.6 % 19-41 [facility] BUN/creatinine ratioOrdered By: Steven Tejeda on 04-23-2025 Urea nitrogen/Creatinine [Mass ratio] 20.6 mg/mg High 10- [facility] Basic Metabolic Profile (BMP )on 04-23-2025 BUN/CRE 20.6 RATIO High 09-13 [facility] Comment on above: Performed By: #### L 503.5510, L500.3400, L500.2500, L100.0100 #### [facility] [address] [place], [address] Calcium [Mass/Vol] 10.3 mg/dL Normal 7.6-11.0 [facility] Comment on above: Performed By: #### L 503.5510, L500.3400, L500.2500, L100.0100 #### [facility] [address] [place], [address] Chloride [Moles/Vol] 101 mmol/L Normal 98-108 [facility] Comment on above: Performed By: #### L 503.5510, L500.3400, L500.2500, L100.0100 #### [facility] [address] [place], [address] CO2 [Moles/Vol] 22.9 mmol/L Normal 21.0-32.0 [facility] Comment on above: Performed By: #### L 503.5510, L500.3400, L500.2500, L100.0100 #### [facility] [address] [place], [address] Creatinine [Mass/Vol] 0.96 mg/dL Normal 0.70-1.20 [facility] Comment on above: Performed By: #### L 503.5510, L500.3400, L500.2500, L100.0100 #### [facility] [address] [place], [address] ECRCL 66.44 ml/min Normal 50-250 [facility] Comment on above: Performed By: #### L 503.5510, L500.3400, L500.2500, L100.0100 #### [facility] [address] [place], [address] GAP 11 Normal 5-15 [facility] Comment on above: Performed By: #### L 503.5510, L500.3400, L500.2500, L100.0100 #### [facility] [address] [place], [address] GFR/1.73 sq M.predicted among non-blacks MDRD (S/P/Bld) [Vol rate/Area] 82 mL/min/{1.73_m2} Normal >60 [facility] Comment on above: Result Comment: mL/m in/1.73m2 CKD-EPI Creatinine Equation (2020) Performed By: #### L 503.5510, L500.3400, L500.2500, L100.0100 #### [facility] [address] [place], [address] Glucose [Mass/Vol] 292 mg/dL High 70-99 [facility] Comment on above: Performed By: #### L 503.5510, L500.3400, L500.2500, L100.0100 #### [facility] [address] [place], [address] Potassium [Moles/Vol] 3.9 mmol/L Normal 3.3-5.1 [facility] Comment on above: Performed By: #### L 503.5510, L500.3400, L500.2500, L100.0100 #### [facility] [address] [place], [address] Sodium [Moles/Vol] 134 mmol/L Normal 133-145 [facility] Comment on above: Performed By: #### L 503.5510, L500.3400, L500.2500, L100.0100 #### [facility] [address] [place], [address] Urea nitrogen [Mass/Vol] 20 mg/dL High 4-19 [facility] Comment on above: Performed By: #### L 503.5510, L500.3400, L500.2500, L100.0100 #### [facility] [address] [place], [address] Basophil percentageOrdered B y: Steven Tejeda on 04-23-2024 Basophils/100 WBC (Bld) 0.2 % 0-1 [facility] CBC W/Diff, Automatedon 03-27-2024 Absolute Lymph 3.56 X10 3/uL Normal 0.83-4.51 [facility] Comment on above: Performed By: #### L 503.5510, L500.3400, L500.2500, L100.0100 #### [facility] [address] [place], [address] Absolute Neut 8.4 X10 3/uL High 2.0-7.7 [facility] Comment on above: Performed By: #### L 503.5510, L500.3400, L500.2500, L100.0100 #### [facility] [address] [place], [address] Basophils/100 WBC (Bld) 0.2 % Normal 0-1 [facility] Comment on above: Performed By: #### L 503.5510, L500.3400, L500.2500, L100.0100 #### [facility] [address] [place], [address] Eosinophils/100 WBC (Bld) 1.9 % Normal 0-5 [facility] Comment on above: Performed By: #### L 503.5510, L500.3400, L500.2500, L100.0100 #### [facility] [address] [place], [address] Erythrocyte distribution width (RBC) [Ratio] 19.0 % High 11.6-14.6 [facility] Comment on above: Performed By: #### L 503.5510, L500.3400, L500.2500, L100.0100 #### [facility] [address] [place], [address] Hematocrit (Bld) [Volume fraction] 31.1 % Low 40-54 [facility] Comment on above: Performed By: #### L 503.5510, L500.3400, L500.2500, L100.0100 #### [facility] [address] [place], [address] Hemoglobin (Bld) [Mass/Vol] 9.3 g/dL Low 13.0-16.5 [facility] Comment on above: Performed By: #### L 503.5510, L500.3400, L500.2500, L100.0100 #### [facility] [address] [place], [address] IG% 0.500 Normal 0.0-0.9 [facility] Comment on above: Result Comment: IG% - Immature Granulocytes (promyelocytes, myelocytes and metamyelocytes) > 1% indicates that a LEFT SHIFT is Present. Performed By: #### L 503.5510, L500.3400, L500.2500, L100.0100 #### [facility] [address] [place], [address] Lymphocytes/100 WBC (Bld) 27.6 % Normal 19-41 [facility] Comment on above: Performed By: #### L 503.5510, L500.3400, L500.2500, L100.0100 #### [facility] [address] [place], [address] MCH (RBC) [Entitic mass] 19.7 pg Low 27.0-32.0 [facility] Comment on above: Performed By: #### L 503.5510, L500.3400, L500.2500, L100.0100 #### [facility] [address] [place], [address] MCHC (RBC) [Mass/Vol] 29.9 g/dL Low 32-36 [facility] Comment on above: Performed By: #### L 503.5510, L500.3400, L500.2500, L100.0100 #### [facility] [address] [place], [address] MCV (RBC) [Entitic vol] 66.0 fL Low 80-94 [facility] Comment on above: Performed By: #### L 503.5510, L500.3400, L500.2500, L100.0100 #### [facility] [address] [place], [address] Monocytes/100 WBC (Bld) 4.9 % Normal 0-10 [facility] Comment on above: Performed By: #### L 503.5510, L500.3400, L500.2500, L100.0100 #### [facility] [address] [place], [address] Neutrophils/100 WBC (Bld) 64.9 % Normal 47-70 [facility] Comment on above: Performed By: #### L 503.5510, L500.3400, L500.2500, L100.0100 #### [facility] [address] [place], [address] Nucleated RBC (Bld) [#/Vol] 0 10*3/uL Normal 0-5 [facility] Comment on above: Performed By: #### L 503.5510, L500.3400, L500.2500, L100.0100 #### [facility] [address] [place], [address] Platelet mean volume (Bld) [Entitic vol] 9.4 fL Normal 6.2-12.0 [facility] Comment on above: Performed By: #### L 503.5510, L500.3400, L500.2500, L100.0100 #### [facility] [address] [place], [address] Platelets (Bld) [#/Vol] 350 10*3/uL Normal 150-450 [facility] Comment on above: Performed By: #### L 503.5510, L500.3400, L500.2500, L100.0100 #### [facility] [address] [place], [address] RBC (Bld) [#/Vol] 4.71 10*6/uL Normal 4.6-6.2 [facility] Comment on above: Performed By: #### L 503.5510, L500.3400, L500.2500, L100.0100 #### [facility] [address] [place], [address] RDW SD 43.6 fl Normal 35.1-43.9 [facility] Comment on above: Performed By: #### L 503.5510, L500.3400, L500.2500, L100.0100 #### [facility] [address] [place], [address] WBC (Bld) [#/Vol] 12.9 10*3/uL High 4.4-11.0 [facility] Comment on above: Performed By: #### L 503.5510, L500.3400, L500.2500, L100.0100 #### [facility] [address] [place], [address] Carbon dioxide, total [Moles /volume] in Central venous bloodOrdered By: Steven Tejeda on 04-23-2025 CO2 [Moles/Vol] 22.9 mmol/L 21.0-32.0 [facility] Chest 1 View (Portable)on Chest 1 View (Portable) [facility] Imaging Services [address] [place] [address] Chest 1 View (Portable) MR#: [id number] Acct: [id number] Name: ITZEL ALONZO Rep #: [id number] : 1950 M 74 From: Deonte Perez MD PCP: SID Haro Status: REG ER Study: Chest 1 View (Portable) Date of Exam: 04/23/25 Exam# [id number] Ordering Dr: Steven Tejeda DO PROCEDURE: CHEST [...] regions which may represent adenopathy. Reading Location: [id number] CC: SID Haji; Dr. Steven Tejeda DO Drier Operator Head: Signed Normal [facility] Chloride assayOrdered By: Emil Tejeda on 04-23-2025 Chloride [Moles/Vol] 101 mmol/L 98-108 [facility] Emergency Department Summary on 04-23-2025 Emergency Department Summary [facility] Medical Records Department [address] [place] [address] Emergency Department Summary 04/23/25 MR#: [id number] Acct: [id number] Name: ITZEL ALONZO Rep #: [id number] : 1950 74 From: Steven Tejeda DO PCP: Carlene N Adithya, WILDLIFE TECHNICIAN-C Status:DEP ER Location: ED HPI History of [...] with lung cancer in his right lung. [facility] Medical History Kidney stones Neuropathy PTSD (post-traumatic [...] unit tablet 200 unit PO DAILY supplement 06/15 /21 Unknown History atorvastatin 80 mg tablet 80 [...] to obtaining)] (more content not included)... Normal [facility] Eosinophil percentageOrdered By: Steven Tejeda on 04-23-2025 Eosinophils/100 WBC (Bld) 1.9 % 0-5 [facility] Erythrocyte distribution wid th ratioOrdered By: Steven Tejeda on 04-23-2025 Erythrocyte distribution width (RBC) [Ratio] 19.0 % High 11.6-14.6 [facility] Erythrocyte distribution wid th standard deviationOrdered By: Steven Tejeda on 04-23-2025 Erythrocyte distribution width (RBC) [Ratio] 43.6 fl 35.1-43.9 [facility] Glomerular filtration rate ( GFR) estimation/1.73 sq m using serum, plasma, or whole bOrdered By: Stevenelisa Tejeda on 04-23-2025 GFR/1.73 sq M.predicted among non-blacks MDRD (S/P/Bld) [Vol rate/Area] 82 mL/min/{1.73_m2} >60 [facility] Comment on above: mL/min/1.73m2 CKD-EP I Creatinine Equation (2020) Hematocrit Auto (Bld) [Volum e fraction]Ordered By: Steven Tejeda on 04-23-2025 Hematocrit (Bld) [Volume fraction] 31.1 % Low 40-54 [facility] Hemoglobin measurementOrdere d By: Steven Tejeda on 04-23-2025 Hemoglobin (Bld) [Mass/Vol] 9.3 g/dL Low 13.0-16.5 [facility] Immature granulocytes/100 WB C Auto (Bld)Ordered By: Steven Tejeda on 04-23-2025 Immature granulocytes/100 WBC (Bld) 0.500 % 0.0-0.9 [facility] Comment on above: IG% - Immature Granu locytes (promyelocytes, myelocytes and metamyelocytes) > 1% indicates that a LEFT SHIFT is Present. International normalized rat io (INR) calculationOrdered By: Steven Tejeda on 04-23-2025 INR Coag (Bld) [Relative time] 1.1 {INR} [facility] L499.0042on 04-23-2025 Trop T High Sen 27 ng/L High <=22 [facility] Comment on above: Performed By: #### L 400.0001 #### [facility] [address] [place], [address] L501.4021on 04-23-2025 Trop T High Sen 26 ng/L High <=22 [facility] Comment on above: Performed By: #### L 503.5510, L500.3400, L500.2500, L100.0100 #### [facility] [address] [place], [address] MCV (mean corpuscular volume ) determinationOrdered By: Steven Tejeda on 04-23-2025 MCV (RBC) [Entitic vol] 66.0 fL Low 80-94 [facility] Mean corpuscular hemoglobin (MCH) determinationOrdered By: Steven Tejeda on 04-23-2025 MCH (RBC) [Entitic mass] 19.7 pg Low 27.0-32.0 [facility] Mean corpuscular hemoglobin concentration (MCHC) determinationOrdered By: Steven Tejeda on 04-23-2025 MCHC (RBC) [Mass/Vol] 29.9 g/dL Low 32-36 [facility] Mean platelet volume determi nationOrdered By: Steven Tejeda on 04-23-2025 Platelet mean volume (Bld) [Entitic vol] 9.4 fL 6.2-12.0 [facility] Monocyte percentageOrdered B y: Steven Tejeda on 04-23-2025 Monocytes/100 WBC (Bld) 4.9 % 0-10 [facility] Neutrophil percentageOrdered By: Steven Tejeda on 04-23-2025 Neutrophils/100 WBC (Bld) 64.9 % 47-70 [facility] Nucleated red blood cell per centageOrdered By: Steven Tejeda on 04-23-2025 Nucleated RBC/100 WBC (Bld) [Ratio] 0 % 0-5 [facility] Partial Thromboplast Timeon 04-23-2025 aPTT Coag (Bld) [Time] 27.9 s Normal 24.1-36.2 [facility] Comment on above: Performed By: #### L 503.5510, L500.3400, L500.2500, L100.0100 #### [facility] [address] [place], [address] Platelet countOrdered By: Emil Tejeda on 04-23-2025 Platelets (Bld) [#/Vol] 350 10*3/uL 150-450 [facility] Potassium measurement (mass/ volume)Ordered By: Steven Tejeda on 04-23-2025 Potassium (Unsp spec) [Mass/Vol] 3.9 mmol/L 3.3-5.1 [facility] Prothrombin Time w/INRon INR Coag (PPP) [Relative time] 1.1 {INR} Normal [facility] Comment on above: Performed By: #### L 503.5510, L500.3400, L500.2500, L100.0100 #### [facility] [address] [place], [address] PT Coag (PPP) [Time] 14.2 s Normal 11.7-14.9 [facility] Comment on above: Performed By: #### L 503.5510, L500.3400, L500.2500, L100.0100 #### [facility] [address] [place], [address] Prothrombin timeOrdered By: Steven Tejeda on 04-23-2025 PT Coag (PPP) [Time] 14.2 s 11.7-14.9 [facility] RBC Auto (Bld) [#/Vol]Ordere d By: Steven Tejeda on 04-23-2025 RBC (Bld) [#/Vol] 4.71 10*6/uL 4.6-6.2 [facility] STROKE Brain/Head without Co nton 04-23-2025 STROKE Brain/Head without Cont [facility] Imaging Services [address] [place] [address] STROKE Brain/Head without Cont MR#: [id number] Acct: [id number] Name: ITZEL ALONZO Rep #: [id number] : 1950 M 74 From: Deonte Perez MD PCP: [facility] Haro Status: REG ER Study: STROKE Brain/Head without Cont Date of Exam: 0 04/23/25 Exam# [id number] Ordering Dr: Steven Tejeda DO PROCEDURE: STROKE [...] atrophy and chronic microvascular ischemia. Reading Location: [place] [address] CC: WILDLIFE TECHNICIAN-C Carlene Haji; Dr. Steven Tejeda DO Drier Operator Head: Signed Normal [facility] STROKE CTA Head AND Neck W/C onon 04-23-2025 STROKE CTA Head AND Neck W/Con [facility] Imaging Services [address] [place] [id number] STROKE CTA Head AND Neck W/Con MR#: [id number] Acct: [id number] Name: ITZEL ALONZO Rep #: [id number] : 1950 M 74 From: Deonte Perez MD PCP: [facility] Har[facility] Status: REG ER Study: STROKE CTA Head AND Neck W/Con Date of Exam: 0 04/23/25 Exam# [id number] Ordering Dr: Steven Tejeda DO PROCEDURE: STROKE [...] occluded similar to the prior CTA. Anatomy: [place] anatomy is normal. Aneurysm or [...] apical mass suspicious for malignancy. Reading Location: [id number] CC: SID Haji; Dr. Steven Tejeda DO Drier Operator Head: Signed Normal [facility] Serum creatinine measurement (mass/volume)Ordered By: Steven Tejeda on 04-23-2025 Creatinine [Mass/Vol] 0.96 mg/dL 0.70-1.20 [facility] Serum glucose measurement (m ass/volume)Ordered By: Steven Tejeda on 04-23-2025 Glucose [Mass/Vol] 292 mg/dL High 70-99 [facility] Serum or plasma calcium ivania urement (mass/volume)Ordered By: Steven Tejeda on 04-23-2025 Calcium [Mass/Vol] 10.3 mg/dL 7.6-11.0 [facility] Serum or plasma urea nitroge n measurement (mass/volume)Ordered By: Steven Tejeda on 04-23-2025 Urea nitrogen [Mass/Vol] 20 mg/dL High 4-19 [facility] Sodium levelOrdered By: Stevenelisa Tejeda on 04-23-2025 Sodium [Moles/Vol] 134 mmol/L 133-145 [facility] Troponin T.cardiac [Mass/vol ume] in Serum or Plasma by High sensitivity methodOrdered By: Steven Tejeda on 04-23-2025 Troponin T.cardiac High sensitivity method [Mass/Vol] 27 ng/L High <22 [facility] Troponin T.cardiac High sensitivity method [Mass/Vol] 26 ng/L High <22 [facility] White blood cell (WBC) count Ordered By: Steven Tejeda on 04-23-2025 WBC (Bld) [#/Vol] 12.9 10*3/uL High 4.4-11.0 [facility] Bedside Glucoseon 12-12-2024 FINGERSTICK GLU 358 mg/dL High 74-106 [facility] Comment on above: Result Comment: BELLA PENALOZA OF PATIENT CARE PER NURSING PROTOCOL Performed By: #### L 503.5510, L500.3400, L500.2500, L100.0100 #### [facility] [address] [place], [address] Emergency Department Summary on 12-12-2024 Emergency Department Summary [facility] Medical Records Department [address] [place] [address] Emergency Department Summary 12/12/24 MR#: [id number] Acct: [id number] Name: ITZEL ALONZO Rep #: [id number] : 1950 74 From: Juvencio Shen MD [facility] Status:DEP ER Location: ED HPI History of Present Illness Chief Complaint: General Illness Narrative Narrative: Patient is a 74-year-old male with history of homelessness, anxiety, depression, PTSD, is part of the [place], and per the patient has history [...] [place] the [facility] secondary to his family being there. [...] he is mostly here because of frustration. [facility] Medical History (Updated 12/12/24 @ 13:26 by [...] to auscult (more content not included)... Normal [facility] Vital Signs Date Time Vital Sign Value Performing Clinician Facility 08-06-2025 06:00-0400 Diastolic blood pressure 79 mm[Hg] Dr. Steven Tejeda DO Work Phone: 8(607)595-216463 [address] 08-06-2025 06:00-0400 Heart rate 100 /min Dr. Steven Tejeda DO Work Phone: 7(889)479-427003 [place] [address] 08-06-2025 06:00-0400 Respiratory rate 18 /min Dr. Steven Tejeda DO Work Phone: 5(103)985-526603 [place] [address] 08-06-2025 06:00-0400 SaO2% (BldA) [Mass fraction] 94 % Dr. Steven Tejeda DO Work Phone: 8(593)536-843503 [place] [address] 08-06-2025 06:00-0400 Systolic blood pressure 145 mm[Hg] Dr. Steven Tejeda DO Work Phone: 2(734)286-668203 [place] [address] 08-06-2025 04:23-0400 Body temperature 97.8 [degF] Dr. Steven Tejeda DO Work Phone: 6(441)990-774403 [place] [address] 08-06-2025 00:47-0400 Body height 182.[address] Steven Tejeda DO Work Phone: 5(612)097-493603 [place] [address] 08-06-2025 00:47-0400 Body mass index (BMI) [Ratio] 18.1 kg/m2 Dr. Steven Tejeda DO Work Phone: 8(853)267-975203 [place] [address] 08-06-2025 00:47-0400 Body weight 60.[address] Steven Tejeda DO Work Phone: 5(364)940-061303 [place] [address] 07-08-2025 14:00-0400 Diastolic blood pressure 81 mm[Hg] Dr. Steven Tejeda DO Work Phone: 6(670)120-712403 [place] [address] 07-08-2025 14:00-0400 Heart rate 101 /min Dr. Steven Tejeda DO Work Phone: 2(488)762-559503 [place] [address] 07-08-2025 14:00-0400 Respiratory rate 19 /min Dr. Steven Tejeda DO Work Phone: 1(498)650-086736 [place] [address] 07-08-2025 14:00-0400 SaO2% (BldA) [Mass fraction] 100 % Dr. Steven Tejeda DO Work Phone: 9(122)197-161336 [place] [address] 07-08-2025 14:00-0400 Systolic blood pressure 130 mm[Hg] Dr. Steven Tejeda DO Work Phone: 8(868)211-858836 [place] [address] 07-08-2025 13:59-0400 Body temperature 98.7 [degF] Dr. Steven Tejeda DO Work Phone: 0(223)456-293236 [place] [address] 07-08-2025 10:55-0400 Body height 182.[address] Steven Tejeda DO Work Phone: 4(602)694-588936 [place] [address] 07-08-2025 10:55-0400 Body mass index (BMI) [Ratio] 22.3 kg/m2 Dr. Steven Tejeda DO Work Phone: 3(244)741-145736 [place] [address] 07-08-2025 10:55-0400 Body weight 74.[address] Steven Tejeda DO Work Phone: 5(493)244-999436 [place] [address] 07-07-2025 09:32-0400 Inhaled oxygen flow rate 2 L/min Dr. Steven Tejeda DO Work Phone: 0(529)993-373936 [place] [address] 07-07-2025 07:46-0400 SaO2% (BldA) [Mass fraction] 91 % Dr. Steven Tejeda DO Work Phone: 6(353)866-070236 [place] [address] 07-07-2025 07:10-0400 Heart rate 101 /min Dr. Steven Tejeda DO Work Phone: 3(313)081-022336 [place] [address] 07-07-2025 07:10-0400 Respiratory rate 18 /min Dr. Steven Tejeda DO Work Phone: 4(500)813-586836 [place] [address] 07-07-2025 05:36-0400 Body mass index (BMI) [Ratio] 17.4 kg/m2 Dr. Steven Tejeda DO Work Phone: [facility] 07-07-2025 05:36-0400 Body weight 59.[address] Steven Tejeda DO Work Phone: 4(039)966-304136 [place] [address] 07-06-2025 22:04-0400 Body temperature 98.9 [degF] Dr. Steven Tejeda DO Work Phone: 5(316)667-310436 [place] [address] 07-06-2025 22:04-0400 Diastolic blood pressure 94 mm[Hg] Dr. Steven Tejeda DO Work Phone: 2(885)957-862336 [place] [address] 07-06-2025 22:04-0400 Systolic blood pressure 146 mm[Hg] Dr. Steven Tejeda DO Work Phone: 9(050)822-299136 [place] [address] 07-05-2025 21:24-0400 Inhaled oxygen concentration 2 % Dr. Steven Tejeda DO Work Phone: 4(101)798-660136 [place] [address] 07-05-2025 10:29-0400 Body height 185.[address] Steven Tejeda DO Work Phone: 8(603)533-216936 [place] [address] 07-03-2025 23:03-0400 Body temperature 98.3 [degF] Dr. Steven Tejeda DO Work Phone: 7(896)859-623936 [place] [address] 07-03-2025 23:03-0400 Diastolic blood pressure 90 mm[Hg] Dr. Steven Tejeda DO Work Phone: 6(587)132-116936 [place] [address] 07-03-2025 23:03-0400 Heart rate 115 /min Dr. Steven Tejeda DO Work Phone: 4(733)948-389936 [place] [address] 07-03-2025 23:03-0400 Respiratory rate 22 /min Dr. Steven Tejeda DO Work Phone: 1(707)820-030336 [place] [address] 07-03-2025 23:03-0400 SaO2% (BldA) [Mass fraction] 96 % Dr. Steven Tejeda DO Work Phone: 0(675)384-810536 [place] [address] 07-03-2025 23:03-0400 Systolic blood pressure 160 mm[Hg] Dr. Steven Tejeda DO Work Phone: 4(223)898-263836 [place] [address] 07-03-2025 19:10-0400 Body height 185.[address] Steven Tejeda DO Work Phone: 2(464)042-887936 [place] [address] 07-03-2025 19:10-0400 Body mass index (BMI) [Ratio] 18.8 kg/m2 Dr. Steven Tejeda DO Work Phone: 9(271)972-362336 [place] [address] 07-03-2025 19:10-0400 Body weight 64.[address] Steven Tejeda DO Work Phone: 1(399)265-612903 [place] [address] 05-13-2025 13:11-0400 Body temperature 97.8 [degF] Dr. Steven Tejeda DO Work Phone: 7(309)692-092403 [place] [address] 05-13-2025 13:11-0400 Diastolic blood pressure 72 mm[Hg] Dr. Steven Tejeda DO Work Phone: 4(059)757-759403 [place] [address] 05-13-2025 13:11-0400 Heart rate 90 /min Dr. Steven Tejeda DO Work Phone: 4(041)478-698136 [place] [address] 05-13-2025 13:11-0400 Respiratory rate 12 /min Dr. Steven Tejeda DO Work Phone: 2(741)227-940936 [place] [address] 05-13-2025 13:11-0400 SaO2% (BldA) [Mass fraction] 95 % Dr. Steven Tejeda DO Work Phone: 7(975)360-947236 [place] [address] 05-13-2025 13:11-0400 Systolic blood pressure 140 mm[Hg] Dr. Steven Tejeda DO Work Phone: 1(746)707-952036 [place] [address] 05-13-2025 12:40-0400 Inhaled oxygen flow rate 2 L/min Dr. Steven Tejeda DO Work Phone: 0(399)420-557336 [place] [address] 05-12-2025 11:06-0400 Body height 185.[address] Steven Tejeda DO Work Phone: 7(061)101-402336 [place] [address] 05-12-2025 11:06-0400 Body weight 64.[address] Steven Tejeda DO Work Phone: 3(422)727-437936 [place] [address] 05-11-2025 20:16-0400 Body mass index (BMI) [Ratio] 18.7 kg/m2 Dr. Steven Tejeda DO Work Phone: 2(336)412-387636 [place] [address] 05-11-2025 19:29-0400 Body temperature 98.6 [degF] Dr. Steven Tejeda DO Work Phone: 3(606)855-207236 [place] [address] 05-11-2025 19:29-0400 Diastolic blood pressure 85 mm[Hg] Dr. Steven Tejeda DO Work Phone: 9(057)351-032436 [place] [address] 05-11-2025 19:29-0400 Heart rate 99 /min Dr. Steven Tejeda DO Work Phone: 6(556)027-762036 [place] [address] 05-11-2025 19:29-0400 Respiratory rate 24 /min Dr. Steven Tejeda DO Work Phone: 8(047)048-715703 [place] [address] 05-11-2025 19:29-0400 SaO2% (BldA) [Mass fraction] 95 % Dr. Steven Tejeda DO Work Phone: 6(826)186-436236 [place] [address] 05-11-2025 19:29-0400 Systolic blood pressure 154 mm[Hg] Dr. Steven Tejeda DO Work Phone: 6(085)380-115336 [place] [address] 05-11-2025 14:09-0400 Body mass index (BMI) [Ratio] 19.2 kg/m2 Dr. Steven Tejeda DO Work Phone: 7(807)316-969036 [place] [address] 05-11-2025 14:09-0400 Body weight 66.[address] Steven Tejeda DO Work Phone: 5(379)750-871336 [place] [address] 05-11-2025 14:05-0400 Body height 185.[address] Steven Tejeda DO Work Phone: 8(569)788-320036 [place] [address] 05-04-2025 14:54-0400 Body temperature 98.3 [degF] Dr. Steven Tejeda DO Work Phone: 2(435)856-552136 [place] [address] 05-04-2025 14:54-0400 Diastolic blood pressure 88 mm[Hg] Dr. Steven Tejeda DO Work Phone: 9(727)956-500736 [place] [address] 05-04-2025 14:54-0400 Heart rate 91 /min Dr. Steven Tejeda DO Work Phone: 7(068)630-710036 [place] [address] 05-04-2025 14:54-0400 Respiratory rate 16 /min Dr. Steven Tejeda DO Work Phone: 9(759)330-187636 [place] [address] 05-04-2025 14:54-0400 SaO2% (BldA) [Mass fraction] 98 % Dr. Steven Tejeda DO Work Phone: 6(378)116-365536 [place] [address] 05-04-2025 14:54-0400 Systolic blood pressure 146 mm[Hg] Dr. Steven Tejeda DO Work Phone: 5(012)322-584503 [place] [address] 05-04-2025 11:22-0400 Inhaled oxygen flow rate 97 L/min Dr. Steven Tejeda DO Work Phone: 2(058)236-759003 [place] [address] 05-04-2025 11:13-0400 Body height 185.[address] Steven Tejeda DO Work Phone: 5(464)853-008103 [place] [address] 05-04-2025 11:13-0400 Body mass index (BMI) [Ratio] 18.8 kg/m2 Dr. Steven Tejeda DO Work Phone: 3(505)771-645203 [place] [address] 05-04-2025 11:13-0400 Body weight 64.[address] Steven Tejeda DO Work Phone: 6(784)210-318236 [place] [address] 04-24-2025 00:37-0400 Body temperature 98.2 [degF] Dr. Steven Tejeda DO Work Phone: 6(568)946-621836 [place] [address] 04-24-2025 00:37-0400 Diastolic blood pressure 81 mm[Hg] Dr. Steven Tejeda DO Work Phone: 4(052)325-946636 [place] [address] 04-24-2025 00:37-0400 Heart rate 83 /min Dr. Steven Tejeda DO Work Phone: 1(257)801-406236 [place] [address] 04-24-2025 00:37-0400 Respiratory rate 25 /min Dr. Steven Tejeda DO Work Phone: 5(820)791-926436 [place] [address] 04-24-2025 00:37-0400 SaO2% (BldA) [Mass fraction] 99 % Dr. Steven Tejeda DO Work Phone: 6(054)275-552163 [address] 04-24-2025 00:37-0400 Systolic blood pressure 149 mm[Hg] Dr. Steven Tejeda DO Work Phone: 7(887)600-308503 [place] [address] 04-23-2025 21:27-0400 Body mass index (BMI) [Ratio] 20.8 kg/m2 Dr. Steven Tejeda DO Work Phone: 5(732)108-051903 [place] [address] 04-23-2025 21:07-0400 Body height 185.[address] Steven Tejeda DO Work Phone: 2(025)370-601803 [place] [address] 04-23-2025 21:07-0400 Body weight 71.[address] Steven Tejeda DO Work Phone: 7(143)461-647836 [place] [address] Encounters Encounter Date Encounter Type Care Provider Facility Start: 08-06-2025 End: 08-06-2025 Dr. Steven Tejeda DO Work Phone: -Emergency Department Work Phone: Start: 08-06-2025 End: 08-06-2025 Emergency department patient visit Dr. Steven Tejeda DO Work Phone: -Emergency Department Start: 07-08-2025 End: 07-08-2025 [facility] Work Phone: Start: 07-08-2025 End: 07-08-2025 Emergency department patient visit Dr. Steven Tejeda DO Work Phone: -Emergency Department Work Phone: Start: 07-07-2025 Non-patient / Non-visit Dr. Anthony Salgado MD -[facility] Work Phone: Start: 07-07-2025 Dr. Anthony Salgado MD -[facility] Work Phone: Start: 07-06-2025 Non-patient / Non-visit Dr. Anthony Salgado MD -[facility] Work Phone: Start: 07-06-2025 Dr. Anthony Salgado MD -[facility] Work Phone: Start: 07-05-2025 Non-patient / Non-visit Dr. Anthony Salgado MD -[facility] Work Phone: Start: 07-05-2025 Dr. Anthony Salgado MD -[facility] Work Phone: Start: 07-04-2025 Non-patient / Non-visit Dr. Uche lowery MD -[facility] Work Phone: Start: 07-04-2025 Dr. Uche Felix MD -[facility] Work Phone: Start: 07-03-2025 ambulatory Johanne Evans Facility :[facility] Start: 07-03-2025 End: 07-07-2025 Evaluation and management of inpatient Dr. Johanne Evans MD -[facility] Work Phone: Start: 07-03-2025 End: 07-07-2025 Dr. Anthony Salgado MD -[facility] Work Phone: Start: 05-13-2025 Non-patient / Non-visit Dr. Anthony Salgado MD -[facility] Work Phone: Start: 05-13-2025 Dr. Anthony Salgado MD -[facility] Work Phone: Start: 05-12-2025 Non-patient / Non-visit Dr. Anthony Salgado MD -[facility] Work Phone: Start: 05-12-2025 Dr. Anthony Salgado MD -[facility] Work Phone: Start: 05-11-[address] Stanley Fac ility:[facility] Start: 05-11-2025 End: 05-13-2025 Evaluation and management of inpatient Dr. Lane Stanley DO -[facility] Work Phone: Start: 05-11-2025 End: 05-13-2025 Dr. Anthony Salgado MD -[facility] Work Phone: Start: 05-04-2025 End: 05-04-2025 Dr. Ike Dawson DO -Emergency Departmen t Work Phone: Start: 05-04-2025 End: 05-04-2025 Emergency department patient visit Dr. Steven Tejeda DO Work Phone: -Emergency Department Work Phone: Start: 04-23-2025 End: 04-24-2025 Dr. Steven Tejeda DO -Emergency Departme nt Work Phone: Start: 04-23-2025 End: 04-24-2025 Emergency department patient visit Dr. Steven Tejeda DO Work Phone: -Emergency Department Work Phone: Start: 12-12-2024 End: 12-12-2024 Emergency department patient visit [facility] Facility:[facility] Start: 05-09-2021 ambulatory Facility:[facility] Procedures Date Procedure Procedure Detail Performing Clinician Start: 08-06-[address] Steven Tejeda DO Work Phone: Start: 08-06-2025 Blood count smear mc rscp w/mnl difrntl wbc count Dr. Steven Tejeda DO Work Phone: Start: 08-06-[address] Steven Tejeda DO Work Phone: Start: 08-06-2025 Mean corpuscular hem oglobin concentration determination Dr. Steven Tejeda DO Work Phone: Start: 08-06-2025 Nucleated red blood cell count procedure Dr. Steven Tejeda DO Work Phone: Start: 08-06-2025 Platelet mean volume determination Dr. Steven Tejeda DO Work Phone: Start: 08-06-2025 Urine microscopy: red cells Dr. Steven Tejeda DO Work Phone: Start: 08-06-2025 Urnls dip stick/tabl et reagent auto microscopy Dr. Steven Tejeda DO Work Phone: Start: 08-06-2025 CT cervical spine wi thout contrast Dr. Steven Tejeda DO Work Phone: Start: 08-06-2025 CT of head without contrast Dr. Steven Tejeda DO Work Phone: Start: 08-06-2025 CT of lumbar spine Dr. Steven Tejeda DO Work Phone: Start: 08-06-2025 MRI of lower extremity Dr. Steven Tejeda DO Work Phone: Start: 07-08-2025 Urine microscopy: red cells Dr. Steven Tejeda DO Work Phone: Start: 07-08-2025 Urnls dip stick/tabl et reagent auto microscopy Dr. Steven Tejeda DO Work Phone: Start: 07-08-2025 Blood count smear mc rscp w/mnl difrntl wbc count Dr. Steven Tejeda DO Work Phone: Start: 07-08-[address] Steven Tejeda DO Work Phone: Start: 07-08-2025 Mean corpuscular hem oglobin concentration determination Dr. Steven Tejeda DO Work Phone: Start: 07-08-2025 Nucleated red blood cell count procedure Dr. Steven Tejeda DO Work Phone: Start: 07-08-2025 Platelet mean volume determination Dr. Steven Tejeda DO Work Phone: Start: 07-07-2025 Blood count smear mc rscp w/mnl difrntl wbc count Dr. Steven Tejeda DO Work Phone: Start: 07-07-[address] Steven Tejeda DO Work Phone: Start: 07-07-2025 Mean corpuscular hem oglobin concentration determination Dr. Steven Tejeda DO Work Phone: Start: 07-07-2025 Nucleated red blood cell count procedure Dr. Steven Tejeda DO Work Phone: Start: 07-07-2025 Platelet mean volume determination Dr. Steven Tejeda DO Work Phone: Start: 07-05-2025 Serum inorganic phos phate measurement Dr. Steven Tejeda DO Work Phone: Start: 07-04-2025 Open reduction of fr acture of femur with internal fixation Dr. Steven Tejeda DO Work Phone: Start: 07-04-2025 Fluoroscopic guidance Rashel Tejeda DO Work Phone: Start: 07-04-2025 Plain X-ray of hip Dr. Steven Tejeda DO Work Phone: Start: 07-04-2025 Calculation of international normalized ratio Dr. Steven Tejeda DO Work Phone: Start: 07-04-2025 Total iron binding c apacity measurement Dr. Steven Tejeda DO Work Phone: Start: 07-03-2025 MRI of lower extremity Dr. Steven Tejeda DO Work Phone: Start: 07-03-2025 Blood disorder - ini tial assessment Dr. Steven Tejeda DO Work Phone: Start: 07-03-[address] Steven Tejeda DO Work Phone: Start: 07-03-2025 Urine microscopy: red cells Dr. Steven Tejeda DO Work Phone: Start: 07-03-2025 Urnls dip stick/tabl et reagent auto microscopy Dr. Steven Tejeda DO Work Phone: Start: 07-03-2025 Plain x-ray of pelvi s and lower extremity Dr. Steven Tejeda DO Work Phone: Start: 05-13-2025 Blood count smear mc rscp w/mnl difrntl wbc count Dr. Steven Tejeda DO Work Phone: Start: 05-13-[address] Steven Tejeda DO Work Phone: Start: 05-13-2025 Mean corpuscular hem oglobin concentration determination Dr. Steven Tejeda DO Work Phone: Start: 05-13-2025 Nucleated red blood cell count procedure Dr. Steven Tejeda DO Work Phone: Start: 05-13-2025 Platelet mean volume determination Dr. Steven Tejeda DO Work Phone: Start: 05-12-2025 CT of head without contrast Dr. Steven Tejeda DO Work Phone: Start: 05-11-2025 X-ray of chest, PA a nd lateral views Dr. Steven Tejeda DO Work Phone: Start: 05-11-[address] Emil Tejeda DO Work Phone: Start: 05-11-2025 Estimated [...] Steven Tejeda DO Work Phone: Start: 05-04-2025 Blood count smear mc rscp w/mnl difrntl wbc count Dr. Steven Tejeda DO Work Phone: Start: 05-04-2025 Calculation of international normalized ratio Dr. Steven Tejeda DO Work Phone: Start: 05-04-[address] Steven Tejeda DO Work Phone: Start: 05-04-2025 Mean corpuscular hem oglobin concentration determination Dr. Steven Tejeda DO Work Phone: Start: 05-04-2025 Nucleated red blood cell count procedure Dr. Steven Tejeda DO Work Phone: Start: 05-04-2025 Platelet mean volume determination Dr. Steven Tejeda DO Work Phone: Start: 04-23-2025 Plain chest X-ray Dr. Suzanna Tejeda DO Work Phone: Start: 04-23-2025 CT angiography of he ad and neck Dr. Steven Tejeda DO Work Phone: Start: 04-23-2025 CT of head without contrast Dr. Steven Tejeda DO Work Phone: Start: 04-23-2025 Blood count smear mc rscp w/mnl difrntl wbc count Dr. Steven Tejeda DO Work Phone: Start: 04-23-2025 Calculation of international normalized ratio Dr. Steven Tejeda DO Work Phone: Start: 04-23-[address] Steven Tejeda DO Work Phone: Start: 04-23-2025 Mean corpuscular hem oglobin concentration determination Dr. Steven Tejeda DO Work Phone: Start: 04-23-2025 Nucleated red blood cell count procedure Dr. Steven Tejeda DO Work Phone: Start: 04-23-2025 Platelet mean volume determination Dr. Steven Tejeda DO Work Phone: Plan of Treatment Date Care Activity Detail Author Start: 08-06-2025 End: 08-06-2025 [facility] Start: 07-08-[address] [facility] Start: 07-07-2025 Patient discharge [facility] Start: 07-06-2025 End: 07-06-2025 Administration of blood product [facility] Start: 07-04-2025 End: 07-05-2025 [facility] Start: 07-04-2025 Measuring intake and output [facility] Start: 07-04-2025 Measuring intake and output [facility] Start: 07-04-2025 Provision of overbed trapeze [facility] Start: 07-04-2025 Recommendation to co danay with treatment [facility] Start: 07-04-2025 Ambulation therapy management [facility] Start: 07-04-2025 Assessment of risk o f venous thromboembolism [facility] Start: 07-04-2025 Catheterization of vein [facility] Start: 07-04-[address] [facility] Start: 07-04-2025 Following clinical p athway protocol [facility] Start: 07-04-2025 Measuring intake and output [facility] Start: 07-04-2025 Neurovascular assessment [facility] Start: 07-04-2025 Procedure discontinued [facility] Start: 07-04-2025 Provision of activity privileges [facility] Start: 07-04-2025 Referral to occupati onal therapist [facility] Start: 07-04-2025 Referral to service [facility] Start: 07-04-2025 Vital signs measurements [facility] Start: 07-04-[address] [facility] Start: 07-04-2025 Measuring intake and output [facility] Start: 07-04-2025 Application of inter mittent pneumatic compression device [facility] Start: 07-04-2025 Following clinical p athway protocol [facility] Start: 07-03-2025 End: 07-04-2025 [facility] Start: 07-03-2025 Application of ice c ollar, cap or bag [facility] Start: 07-03-2025 Assessment of risk o f venous thromboembolism [facility] Start: 07-03-2025 Care regimes management [facility] Start: 07-03-2025 Fall prevention [facility] Start: 07-03-2025 Inhalation therapy procedure [facility] Start: 07-03-2025 Insertion of cathete r into peripheral vein [facility] Start: 07-03-2025 Introduction of urinary catheter [facility] Start: 07-03-2025 Neurovascular assessment [facility] Start: 07-03-2025 Notification of physician [facility] Start: 07-03-2025 Oxygen therapy [facility] Start: 07-03-2025 End: 07-04-2025 Patient referral to dietitian [facility] Start: 07-03-2025 Providing care accor ding to standard [facility] Start: 07-03-2025 Referral to occupati onal therapist [facility] Start: 07-03-2025 Referral to service [facility] Start: 07-03-[address] [facility] Start: 07-03-2025 Tobacco use cessation education [facility] Start: 07-03-2025 End: 07-03-2025 [facility] Start: 07-03-2025 Measuring intake and output [facility] Start: 07-03-2025 Recommendation to co danay with treatment [facility] Start: 07-03-2025 Verification routine [facility] Start: 07-03-2025 Hospital admission, emergency, from emergency room, medical nature [facility] Start: 07-03-2025 Admission procedure [facility] Start: 07-03-2025 Serum inorganic phos phate measurement [facility] Start: 07-03-[address] [facility] Start: 07-03-2025 Application of ice c ollar, cap or bag [facility] Start: 05-12-[address] [facility] Start: 05-12-2025 Patient discharge [facility] Start: 05-12-2025 Patient referral to dietitian [facility] Start: 05-11-2025 Following clinical p athway protocol [facility] Start: 05-11-2025 Ambulation without limitation [facility] Start: 05-11-2025 Assessment of risk o f venous thromboembolism [facility] Start: 05-11-2025 Care regimes management [facility] Start: 05-11-2025 Insertion of cathete r into peripheral vein [facility] Start: 05-11-2025 Notification of physician [facility] Start: 05-11-2025 Oxygen therapy [facility] Start: 05-11-2025 Providing care accor ding to standard [facility] Start: 05-11-2025 End: 05-11-2025 [facility] Start: 05-11-2025 Verification routine [facility] Start: 05-11-2025 Admission procedure [facility] Start: 05-11-2025 Hospital admission, emergency, from emergency room, medical nature [facility] Start: 05-11-2025 End: 05-11-2025 [facility] Start: 05-11-2025 Inhalation therapy procedure [facility] Start: 05-11-2025 Patient referral to dietitian [facility] Start: 05-04-[address] [facility] Start: 04-24-[address] [facility] Start: 04-23-2025 Oxygen therapy [facility] Start: 04-23-[address] [facility] Magnesium measurement [facility] Natriuretic peptide. B prohormone N-Terminal [Mass/volume] in Serum or Plasma [facility] Patient Education [facility] Work Phone: Patient referral [facility] Work Phone: Troponin T.cardiac [ Mass/volume] in Serum or Plasma by High sensitivity method [facility] Urine culture [facility] Payers Date Payer Category Payer Self-pay [id number] 2024 Self-pay [id number] 2024 Self-pay Unknown [id number] 2.16.8 [id number] Unknown [id number] 2.16.8 [id number] Unknown [id number] 2.16.8 [id number] Unknown [id number] 2.16.8 [id number] Unknown [id number] 2.16.8 [id number] Unknown [id number] 2.16.8 [id number] Unknown [id number] 2.16.8 [id number] Unknown [id number] 2.16.8 [id number] Unknown [id number] 2.16.8 [id number] Unknown [id number] 2.16.8 [id number] Unknown [id number] 2.16.8 [id number] Unknown [id number] 2.16.8 [id number] Unknown [id number] 2.16.8 [id number] Unknown [id number] 2.16.8 [id number] Unknown [id number] 2.16.8 [id number] Social History Date Type Detail Facility Start: 04-23-2025 End: 07-08-2025 Tobacco smoking status ARIS Current some day smoker [facility] Start: 04-23-2025 Tobacco Use Tobacco Use [facility] Start: 1950 Sex Assigned At Male [facility] Start: 08-06-2025 Tobacco smoking stat us ARIS Ex-smoker (finding) [facility] Medical Equipment Procedure Code Equipment Code [...] Start: 07-04-2025 ORIF, hip, using Gamma nail FDA Start: 07-04-2025 ORIF, hip, using Gamma nail FDA Start: 07-04-2025 ORIF, hip, using Gamma nail FDA Start: 07-04-2025 ORIF, hip, using Gamma nail FDA Start: 07-04-2025 Goals Date Patient Goal Desired Activity /State Functional Status Date Assessment Result Facility 07-07-2025 Functional status Back to bed [facility] Work Phone: 05-13-2025 Functional status Ambulates [facility] Work Phone: Mental Status Date Assessment Result Facility 07-07-2025 Cognitive function Voice/Name [facility] Work Phone: 05-13-2025 Cognitive function Voice/Name [facility] Work Phone: 05-11-2025 Cognitive function Voice/Name [facility] Work Phone: 04-23-2025 Cognitive function Voice/Name [facility] Work Phone: Clinical Notes 04-23-2025 to 08-06-2025 Note Date & Type Note Facility 08-06-2025 Discharge summary Note Date/Time August 06, 2025 4:23am [facility] Medical Records Department [address] [place] [address] Emergency Department Summary 08/06/25 MR#: [id number] Acct: [id number] Name: ITZEL ALONZO Rep #:[id number] : 1950 75 From: Tej Amado DO PCP: Dr. Hubert Hagen MD Status:REG E R Location: ED HPI History of Present Illness Chief Complaint: Fall Informant: patient and SNF Narrative Narrative: Patient is a 75-year-old male from the care home with past medical history oflung cancer chronic anemia hypertension chronic kidney disease and cirrhosis. He is on 2.5 mg of Eliquis twice a day secondary to previous TIA/CVA. retirement staff reports that this evening he was found laying partially in his bed and out of it. They state that he was found with his waist/legs in the bed and his body hanging over the edge towards the floor. They state there appeared to be no sign of injury but he is on the blood thinner and there was concern for this so he was sent in for evaluation. Upon arrival the patient is sleepy but will awaken to voice and is oriented to person and year. However care home reports they felt his mental status was more diminished than at his baseline. The patient reports pain in his hip and low back but otherwise has no complaints. [facility] Medical History Fall Closed intertrochanteric fracture of right hip CKD (chronic kidney disease), stage II Chronic [...] budesonide-formoterol HFA 80 2 puff inhalation BID UNPAID INTERN D 05/09/21 07/02/25 History mcg-4.5 mcg/actuation aerosol [...] 07/04/25 07/02/25 History mcg/actuation mist for inhalation oxycodone 5 mg tablet 2.5 mg (1/2 x 5 mg) PO Q6H P RN 07/07/25 Unknown Rx pain 3 days #7 tabs acetaminophen 500 mg tablet 1,000 mg PO Q8 PRN fever o r pain 08/06/25 Unknown History apixaban 5 mg tablet (Eliquis) 2.5 mg PO Q12H 08/06/25 Unknown History cephalexin 500 mg capsule 500 mg PO TID 7 days #21 cap s 08/06/25 Unknown Rx Allergy/AdvReac Type Severity Reaction Status Date / Time No Known Allergies Allergy Verified 08/06/25 03:22 Family History Mother CVA (cerebral vascular accident) Family History other Surgical History Hx of appendectomy Social History household members: none housing: apartment Smoking Status: Former smoker alcohol intake: never substance use type: does not use ROS ROS ED Constitutional Constitutional ED: Denies fever(s) Eyes Eyes: Denies blurry vision or change in vision ENT ENT ED: Denies sore throat Cardiovascular Cardiovascular: Reports other Details: Negative syncope ; Denies chest pain, palpitations or racing heartbeat Respiratory/Chest Respiratory/Chest: Denies cough or dyspnea Gastrointestinal Gastrointestinal: Denies abdominal pain, diarrhea, nausea or vomiting Genitourinary Genitourinary ED: Denies dysuria Musculoskeletal Musculoskeletal: Reports back pain and other Details: Positive right hip pain ; Denies neck pain Integumentary Denies Abrasions Neurologic Neurologic: Denies headache(s) Hematologic/Lymphatic Hematologic/Lymphatic: Reports easy bleeding and easy bruising EXAM Physical Exam Const Vital Signs: 08/06/25 00:47 08/06/25 00:47 08/06/25 02:46 Temperature 97.8 F Temperature Source Oral Pulse Rate 102 H 104 H Respiratory Rate 18 18 Respiratory Effort Normal Respiratory Depth Normal Respiratory Pattern Normal Blood Pressure 135/78 H 136/83 H Blood Pressure Mean 97 100 Pulse Ox 96 100 Oxygen Delivery Method Room Air Room Air Room Air 08/06/25 04:00 Temperature Temperature Source Pulse Rate 103 H Respiratory Rate 18 Respiratory Effort Respiratory Depth Respiratory Pattern Blood Pressure 152/83 H Blood Pressure Mean 106 Pulse Ox 95 Oxygen Delivery Method Room Air Positive well nourished and well developed General Appearance ED: well developed; Negative for pallor HEENT Reports dry mucous membranes HEENT Narrative: Normocephalic atraumatic No signs of depressed or basilar skull fracture No tongue or cheek biting noted to suggest seizure activity No tongue or lip swelling no oral lesions no airway edema or compromise; no signs of infection noted in the posterior pharynx Mouth ED: Yes dry mucous membranes Mouth: dry mucous membranes Eyes PERRL and EOMs intact bilaterally General Eye ED: Negative for scleral icterus Neck supple Neck Narrative: No bony deformity or step-off of the cervical spine; no midline tenderness to palpation Chest Wall palpation of chest normal Chest Narrative: No bony deformity or subcutaneous emphysema noted with palpation of the chest wall No reproducible pain with palpation Resp normal respiratory effort Resp Narrative: Breath sounds are diminished throughout with scattered/faint rhonchi and wheezesin the lower lobes consistent with history of COPD but no signs of respiratory distress Cardio regular rhythm Rate: tachycardic and other Other Details: Slightly tachycardic rate with regular rhythm Radial and carotid pulses are equal and symmetric GI normal to inspection, nondistended, normoactive bowel sounds, non-tender, non-distended and no masses GI Narrative: No voluntary guarding or rigidity or pulsatile mass No overlying abrasions or ecchymosis noted Auscultation: normoactive bowel sounds Palpation: soft Back/Spine Back/Spine Narrative: No bony deformity or step-off of the thoracic or lumbar spine However there is mild midline pain with palpation of the lower lumbar region Extremity Extremity Narrative: Pelvis is stable there is no shortening or external rotation of either lower extremity Patient does have pain on palpation along the greater trochanter of the right hip; however there is no overlying abrasions or ecchymosis; no bony deformity orjoint effusion Patient can move upper extremities without pain or difficulty No signs of long bone injury such as bony deformity or joint effusion All compartments are soft and compressible going against compartment syndrome Neuro CN's II-XII intact bilaterally Neuro Narrative: Patient is slightly obtunded as he appears sleepy but will awaken to voice. This could be related to him taking his nighttime medications of gabapentin and melatonin and Requip. He is alert to person and time There is no obvious focal neurologic deficit noted Sensorium / Orientation: orientation impaired Psych Psych Narrative: Patient has a depressed/sleepy affect Mood & Affect: depressed Skin no rashes or lesions noted, no wounds and No skin turgor normal Skin Narrative: No abrasions or ecchymosis noted to suggest trauma Skin turgor is increased General Skin Exam: Negative for jaundice or pallor MDM MDM MDM Narrative Medical decision making narrative: Patient arrived to the ER just slightly tachycardic but overall stable vitals. He is slightly obtunded as he appears sleeping and this could be medication related or potentially secondary to traumatic subarachnoid or subdural hemorrhage. retirement staff was contacted and states they have not cared forthis patient before but believe that he is typically more alert and oriented according to previous notes. With the fact he is on Eliquis and had a unwitnessed fall in order to rule out skull fracture or brain bleed cervical spine compression fracture lumbar compression fracture or long bone injury such as pubic rami or femoral neck fracture multiple CTs were obtained. The patient's significant other arrived and states that he is more altered than his baseline and with concern this could be related to potential infectious process or acute on chronic kidney disease or hyperammonemia I did elect to perform basic laboratory studies at this time. The patient's urine sample does show findings consistent with infection as the cath urine sample resulted +1 bacteriawith greater than 100 white cells and 500 leukocyte esterase. Therefore it willbe sent for culture and he was started on Rocephin. The patient is afebrile andnormotensive and his white count is normal without left shift going against sepsis. The remainder of his labs showed no sign of acute on chronic kidney injury or hyperammonemia indicating that the depression in his mental status is delirium from the UTI. However as he does not have signs of acute kidney injuryor urosepsis and vitals are stable and imaging studies revealed no signs of internal trauma I feel he can be discharged back to the care home where he can be placed on antibiotics and watched. History & Record Review Discussion w/independent historian: Patient and Significant other Lab Data Attestation: I reviewed the patient's lab results. Labs: Laboratory Results - last 24 hr 08/06/25 08/06/25 02:32 03:05 WBC 9.8 RBC 3.85 L Hgb 8.3 L Hct 27.6 L MCV 71.7 L MCH 21.6 L MCHC 30.1 L RDW Std Deviation 52.9 H RDW Coeff of Tiffany 20.6 H Plt Count 350 MPV 9.2 Immature Gran % (Auto) 0.400 Neut % (Auto) 67.9 Lymph % (Auto) 22.6 Furnas % (Auto) 5.8 Eos % (Auto) 3.0 Baso % (Auto) 0.3 Absolute Neuts (auto) 6.6 Absolute Lymphs (auto) 2.21 Nucleated RBC % 0 Sodium 140 Potassium 3.7 Chloride 105 Carbon Dioxide 23.7 Anion Gap 11 BUN 20 H Creatinine 1.03 Estim Creat Clear Calc 51.74 Est GFR (MDRD) Non-Af 75 BUN/Creatinine Ratio 19.7 Glucose 116 H Calcium 9.1 Total Bilirubin 0.23 Direct Bilirubin 0.10 AST 23 ALT 13 Alkaline Phosphatase 174 H Ammonia < 10.0 L Total Protein 8.0 Albumin 3.2 L Globulin 4.9 H Urine Color Yellow Urine Clarity Cloudy Urine pH 6.0 Ur Specific Howell 1.010 Urine Protein 100 H Urine Glucose (UA) Normal Urine Ketones Negative Urine Occult Blood 25 H Urine Nitrite Negative Urine Bilirubin Negative Urine Urobilinogen Normal Ur Leukocyte Esterase 500 H Urine RBC 0-5 SEEN Urine WBC >100 SEEN Ur Squamous Epith Cells 0-5 SEEN Urine Bacteria 1+ Urine Mucus 0 SEEN Radiography Diagnostic Testing: Clinical Impression(s) from Imaging Studies Brain CT 08/06/25 01:08 IMPRESSION: No acute intracranial CT abnormality. Stable chronic intracranial findings, as described above. Reading Location: [id number] Cervical Spine CT 08/06/25 01:08 IMPRESSION: No CT evidence for acute abnormality. [facility] Lower Extremity CT 08/06/25 01:08 IMPRESSION: No CT evidence of an acute abnormality. Reading [facility] Lumbar Spine CT 08/06/25 01:08 IMPRESSION: No CT evidence of an acute traumatic abnormality. Reading [facility] Discharge Plan Triage Chief Complaint: Fall ED Provider: Tej Amado Dx/Rx/DC Orders Clinical Impression: Accidental fall, Urinary tract infection, Delirium, Current use of mcc anticoagulation, Chronic anemia Instructions: Urinary Tract Infections in Men, What is Delirium? Prescriptions: New cephalexin 500 mg capsule 500 mg PO TID 7 Days Qty: 21 0RF No Action gabapentin 300 MG capsule 300 [...] mcg/actuation aerosol 90 mcg inhalation Q4H PRN oxycodone 5 mg tablet 2.5 mg PO Q6H PRN (Reason: pain) 3 Days Qty: 7 0RF acetaminophen 500 mg Tablet 1,000 mg PO Q8 PRN (Reason: fever or pain) Rx Instructions: 1 g every 8 hourly for 1 week and then Q8 hourly as needed for severe pain Eliquis 5 mg Tablet 2.5 mg PO Q12H Rx Instructions: Start from 07/08/2025. Discontinue if platelet count drops less than 50,000 or hemoglobin less than 8 g% Primary Care Provider: Hubert Hagen Referrals: Hubert Hagen MD [Primary Care Provider] - Activity Restrictions/Additional Instructions: Your workup today reveals no sign of underlying trauma such as skull fracture orbrain bleed or broken bones. You do have a urinary tract infection but there isno sign of sepsis from this. The patient's mental status will be altered secondary to the UTI as this is causing delirium. However as the infection clears over the next few days mental status will return to normal. If there areany further concerns or worsening of symptoms please return to the ER for repeatevaluation. Print Language: Argentine Disposition Disposition: Home, Self Care What to do if you have Problems For any increased pain, shortness of breath, bleeding, nausea or vomiting, chestpain, or any unexpected problems, contact your Primary Care Provider. Call [facility] ([phone]) or report to the closest Emergency Room. Call 911 if necessary. 08/06/25 2112 <Electronically signed by Tej Amado DO> Cosigner Signature (if applicable): CC: Dr. Hubert Hagen MD ~ Signed [facility] Work Phone: 1(350) 497-404509-12-2025 Radiology Diagnostic study [facility]09-12-2025 Radiology Diagnostic study [facility]09-12-2025 Radiology Diagnostic study [facility] 08-06-2025 Radiology Diagnostic study [facility]08-14-2025 Discharge summary [facility] Medical Records Department [address] [place] [address] Emergency Department Summary 07/08/25 MR#: [id number] Acct: [id number] Name: ITZEL ALONZO Rep #:[id number] : 1950 75 From: Monty Clarke MD PCP: SID Haro Status:REG ER Location: ED HPI History of Present Illness Chief Complaint: Complaint Narrative Narrative: 75-year-old male with PMH of HTN, HLD, DM2, cirrhosis, anemia had a traumatic hip fracture with surgical fixation on 07/04/[address] Nuno Campbell. [facility] He states this morning he started to have blood in his urine prompting his visit. He also states they aregiving him Tylenol and it is not managing his hip pain well. He denies fever or chills, nausea or vomiting, or abdominal or flank pain. He was discharged on Eliquis 2.5 mg twice daily. [facility] Medical History CKD (chronic kidney disease), [...] budesonide-formoterol HFA 80 2 puff inhalation BID UNPAID INTERN D 05/09/21 07/02/25 History mcg-4.5 mcg/actuation aerosol [...] type: does not use ROS ROS ED ROS Narrative Constitutional: Negative for fever, chills, malaise. CVS: Negative for chest pain. Respiratory: Negative for shortness of breath. GI: Negative for abdominal pain, nausea, vomiting. : Positive for hematuria. No dysuria or frequency. EXAM Physical Exam Narrative Exam Narrative: CONST: Patient sitting in no acute distress. EYES: Normal inspection. NECK: Normal inspection. RESP: No respiratory distress, CTAB. CVS: Regular rate and rhythm, no murmur, no gallop. ABD: Soft and nontender, no guarding or rebound, nondistended. SKIN: Nayla over right hip incisions are clean, dry, [...] 100 100 Oxygen Delivery Method Room Air Physical Exam Const Vital Signs: 07/08/25 10:55 [...] 100 Oxygen Delivery Method Room Air MDM MDM MDM Narrative Medical decision making narrative: History gathered [...] Right hip incision is healing well without signsof infection. He was having postop pain so was given a [place]. Blood work looks stable with aglobin of [...] internal fixation. According to person with him van missed 3 of his radiation doses. He apparently [facility]. He presentsnow because of hematuria. He did [...] 75.3 H Lymph % (Auto) 16.1 L Furnas % (Auto) 7.2 Eos % (Auto) 0.9 [...] Clarity Clear Urine pH 6.5 Ur Specific Howell 1.010 Urine Protein 100 H Urine Glucose (UA) 100 H Urine Ketones Negative Urine Occult Blood 150 H Urine Nitrite Negative Urine Bilirubin Negative Urine Urobilinogen Normal Ur Leukocyte Esterase Negative Urine RBC 10-25 SEEN Urine WBC 0 SEEN Ur Squamous Epith Cells 0 SEEN Urine Bacteria 0 SEEN Urine Mucus 0 SEEN MDM MDM Narrative Medical decision making narrative: [...] [facility] He presents now because of hematuria. He [...] 75.3 H Lymph % (Auto) 16.1 L Furnas % (Auto) 7.2 Eos % (Auto) 0.9 [...] Clarity Clear Urine pH 6.5 Ur Specific Howell 1.010 Urine Protein 100 H Urine Glucose [...] Care Provider: Carlene Haji Referrals: Carlene Haji, SID [Primary Care Provider] - Activity Restrictions/Additional Instructions: There is a microscopic amount of blood in your urine but your hemoglobin level is stable. This is your red blood cell count. At this time I recommend you still continue the Eliquis because this is toprevent blood clots after surgery. If you have worsening symptoms like if your urine becomes more bloody or you have clots or are unable to urinate then please come back to the ER. Print Language: Argentine Disposition Disposition: Home, Self Care What to do if you have Problems For any increased pain, shortness of breath, bleeding, nausea or vomiting, chestpain, or any unexpected problems, contact your Primary Care Provider. Call [facility] ([phone]) or report tothe closest Emergency Room. Call 911 if necessary. 07/08/25 5802 Cosigner Signature (if applicable): 07/08/25 5106 CC: SID Haji ~ Signed [facility]08-14-2025 Discharge summary Author Monty Clarke [facility] Note Date/Time July 08, 2025 2: 57pm [facility] Medical Records Department [address] [place] [address] Emergency Department Summary 07/08/25 MR#: [id number] Acct: [id number] Name: ITZEL ALONZO Rep #:[id number] : 1950 75 From: Monty Clarke MD PCP: Carlene Haji, WILDLIFE TECHNICIANOnurC Status:REG ER Location: ED HPI <AGUSTINA Sanches - Last Filed: 07/08/25 13:36> History of Present Illness Chief Complaint: Complaint Narrative Narrative: 75-year-old male with PMH of HTN, HLD, DM2, cirrhosis, anemia had a traumatic hip fracture with surgical fixation on 07/04/[address] Nuno Campbell. [facility] He states this morning he started to have blood in his urine prompting his visit. He also states they are giving him Tylenol and it is not managing his hip pain well. He denies fever or chills, nausea or vomiting, or abdominal or flank pain. He was discharged on Eliquis 2.5 mg twice daily. [facility] <AGUSTINA Sanches - Last Filed: 07/08/25 13:36> [facility] Medical History CKD (chronic kidney disease), [...] budesonide-formoterol HFA 80 2 puff inhalation BID UNPAID INTERN D 05/09/21 07/02/25 History mcg-4.5 mcg/actuation aerosol [...] nontender, no guarding or rebound, nondistended. SKIN: [place] over right hip incisions are clean, dry, [...] <AGUSTINA Sanches - Last Filed: 07/08/25 13:36> [facility] MDM Narrative Medical decision making narrative: History gathered [...] having postop pain so was given a [place]. Blood work looks stable with aglobin of [...] [facility] He presentsnow because of hematuria. He did [...] 75.3 H Lymph % (Auto) 16.1 L Furnas % (Auto) 7.2 Eos % (Auto) 0.9 [...] Clarity Clear Urine pH 6.5 Ur Specific Howell 1.010 Urine Protein 100 H Urine Glucose (UA) 100 H Urine Ketones Negative Urine Occult Blood 150 H Urine Nitrite Negative Urine Bilirubin Negative Urine Urobilinogen Normal Ur Leukocyte Esterase Negative Urine RBC 10-25 SEEN Urine WBC 0 SEEN Ur Squamous Epith Cells 0 SEEN Urine Bacteria 0 SEEN Urine Mucus 0 SEEN <Dr. Monty Clarke MD - Last Filed: 07/08/25 14:57> [facility] Narrative Medical decision making narrative: I have [...] He apparently receives [facility] at [facility]. He presents now because of hematuria. He [...] 75.3 H Lymph % (Auto) 16.1 L Furnas % (Auto) 7.2 Eos % (Auto) 0.9 [...] Clarity Clear Urine pH 6.5 Ur Specific Howell 1.010 Urine Protein 100 H Urine Glucose [...] Care Provider: Carlene Haji Referrals: Carlene Haji, WILDLIFE TECHNICIAN-C [Primary Care Provider] - Activity Restrictions/Additional Instructions: [...] come back to the ER. Print Language: Argentine Disposition Disposition: Home, Self Care What to do if you have Problems For any increased pain, shortness of breath, bleeding, nausea or vomiting, chestpain, or any unexpected problems, contact your Primary Care Provider. Call [facility] ([phone]) or report to the closest Emergency Room. Call 911 if necessary. 07/08/25 0180 <Electronically signed by Monty Clarke MD> Cosigner Signature (if applicable): 07/08/25 6271 <Electronically signed by Marissa BERRIOS> CC: SID Haji ~ Signed [facility] Work Phone: 1(895) 933-858808-13-2025 Consult note [facility] Medical Records Department [address] [place] [address] Counseling Note - Pharmacy 07/07/25 1547 MR#: [id number] Acct: [id number] Name: ITZEL ALONZO Rep #:[id number] : 1950 75 From: Karissa Polo PCP: SID Haro Status:ADM IN Y Location: [place] [address] [place] [facility] Service has [...] tabs 07/07/25 07/07/25 1547 Date _ Karissa Bernstein Signature (if applicable): Date CC: ~ Signed [facility]08-13-2025 Consult note Author Karissa Polo [facility] Note Date/Time July 07, 2025 6: 03pm [facility] Medical Records Department [address] [place] [address] Counseling Note - Pharmacy 07/07/25 1547 MR#: [id number] Acct: [id number] Name: ITZEL ALONZO Rep #:[id number] : 1950 75 From: Karissa Polo PCP: Carlene Haji, WILDLIFE TECHNICIAN-C Status:ADM IN Y [facility] [place] [facility] has [...] Signature (if applicable): Date CC: ~ Signed [facility] Work Phone: 1(586) 388-698108-13-2025 Discharge summary Author Anthony Salgado [facility] Note Date/Time July 07, 2025 3: 18pm [facility] Medical Records Department [address] [place] [address] Discharge Summary 07/07/25 1517 MR#: [id number] Acct: [id number] Name: ITZEL ALONZO Rep #:[id number] : 1950 75 From: Anthony Kiser PCP: SID Haro Status:ADM IN Location: [facility] [id number] Providers Date of Admission: 07/03/25 Date of [...] ? Requested for PT OT eval and social organization professor to assist with discharge planning 3. Right sided lung cancer (suprahilar, unclear exact specific type) with associated hypercalcemia of malignancy with recent transition to [facility]. Patient to resume care following discharge [...] is for patient to [facility] with [facility] following [facility] 12. Restless leg syndrome [...] (Auto) 71.4 H, Lymph % (Auto) 19.0, Furnas % (Auto) 7.8, Eos % (Auto) 1.3, [...] Malignancy can not be excluded. Reading Location: [facility] Lower Extremity CT 07/03/25 21:54 IMPRESSION: Acute, moderately comminuted and impacted right intertrochanteric femoral fracture. No aggressive osseous lesions. Reading Location: [facility] Hip X-Ray 07/04/25 10:00 IMPRESSION: Postsurgical changes for repair of right femoral fracture with no acute complications. Reading Location: [facility] Medications at Discharge Home Medications [...] 07/05/25 10:37 SB (Rec: 07/05/25 10:37 SB [id number]) Nutrition Malnutrition Evidence of Yes Malnutrition Exists [...] (Auto) 71.4 H, Lymph % (Auto) 19.0, Furnas % (Auto) 7.8, Eos % (Auto) 1.3, [...] [facility] Facility Charges/Coding Visit Charges Inpatient E&M: 06026 Disch Hosp >30min 07/07/25 1518 <Electronically signed by Anthony Salgado MD> Cosigner Signature (if applicable): CC: SID Haji; Dr. Anthony Salgado MD; Dr. Nuno Campbell MD~ Signed [facility] Work Phone: 1(180) 490-484208-13-2025 Discharge summary Author Anthony Salgado [facility] Note Date/Time July 07, 2025 3: 16pm [facility] Medical Records Department [address] [place] [address] Transfer to Extended Care MR#: [id number] Acct: [id number] Name: ITZEL ALONZO Rep #:[id number] : 1950 75 From: Anthony Kiser PCP: SID Haro Status:ADM IN Certification of patient admission REQUIRED AT TIME OF ADMISSION. I CERTIFY THAT POST-HOSPITAL ECF SERVICES ARE REQUIRED TO BE GIVEN ON AN IN-PATIENT BASIS BECAUSE OF THE ABOVE NAMED PATIENT'S NEED FOR PRISON CARE ON A CONTINUING BASIS FOR THE CONDITION(S) FOR WHICH HE/SHE WAS RECEIVING IN-PATIENT HOSPITAL SERVICES PRIOR TO HIS/HER TRANSFER TO THE ECF. 07/07/25 1516<Electronically signed by Anthony Salgado MD> [...] ? Requested for PT OT eval and social organization professor to assist with discharge planning 3. Right sided lung cancer (suprahilar, unclear exact specific type) with associated hypercalcemia of malignancy with recent transition to [facility]. Patient to resume care following discharge [...] is for patient to [facility] with the [facility] following [facility] 12. Restless leg syndrome [...] (Auto) 71.4 H, Lymph % (Auto) 19.0, Furnas % (Auto) 7.8, Eos % (Auto) 1.3, [...] Malignancy can not be excluded. Reading Location: [facility] Lower Extremity CT 07/03/25 21:54 IMPRESSION: Acute, moderately comminuted and impacted right intertrochanteric femoral fracture. No aggressive osseous lesions. Reading Location: [facility] Hip X-Ray 07/04/25 10:00 IMPRESSION: Postsurgical changes for repair of right femoral fracture with no acute complications. Reading Location: [facility] Allergies/Procedures Done in Hospital Allergies [...] Staff] - Within 2 Weeks Carlene Haji WILDLIFE TECHNICIAN-C [Primary Care Provider] - Within 2 Weeks Disposition Disposition (needs filled in before D/C Order can be placed): [facility] (1) Closed intertrochanteric fracture of right hip Qualifiers: Encounter type: initial encounter Fracture alignment: displaced Qualified Code(s): S72.141A - Displaced intertrochanteric fracture of right femur, initialencounter for closed fracture 07/07/25 0593 <Electronically signed by Anthony Salgado MD> Cosigner Signature (if applicable): CC: WILDLIFE TECHNICIAN-C Carlene Haji; Dr. Johanne Evans MD; Dr. Uche Felix MD; Dr. Nuno Campbell MD ~ [facility] Work Phone: 1(720) 105-352708-13-2025 Progress note Author Anthony Salgado [facility] Note Date/Time July 07, 2025 2: 03pm [facility] Medical Records Department [address] [place] [address] Progress Note - Hospitalist 07/07/25 1401 MR#: [id number] Acct: [id number] Name: ITZEL ALONZO Rep #:[id number] : 1950 75 From: Anthony Kiser PCP: SID Haro Status:ADM IN [facility] Reason for Visit Chief Complaint: Fall, R [...] 07/05/25 10:37 SB (Rec: 07/05/25 10:37 SB [id number]) Nutrition Malnutrition Evidence of Yes Malnutrition Exists [...] (Auto) 71.4 H, Lymph % (Auto) 19.0, Furnas % (Auto) 7.8, Eos % (Auto) 1.3, [...] ? Requested for PT OT eval and social organization professor to assist with discharge planning 3. Right sided lung cancer (suprahilar, unclear exact specific type) with associated hypercalcemia of malignancy with recent transition to [facility]. Patient to resume care following discharge [...] is for patient to [facility] with [facility] following [facility] 12. Restless leg syndrome [...] (Auto) 71.4 H, Lymph % (Auto) 19.0, Furnas % (Auto) 7.8, Eos % (Auto) 1.3, [...] Malignancy can not be excluded. Reading Location: [facility] Lower Extremity CT 07/03/25 21:54 IMPRESSION: Acute, moderately comminuted and impacted right intertrochanteric femoral fracture. No aggressive osseous lesions. Reading Location: [facility] Hip X-Ray 07/04/25 10:00 IMPRESSION: Postsurgical changes for repair of right femoral fracture with no acute complications. Reading Location: [facility] Charges/Coding Visit Charges Inpatient E&M: 19439 Subs Hosp L2 07/07/25 1403 <Electronically signed by Anthony Salgado MD> Cosigner Signature (if applicable): CC: ~ Signed [facility] Work Phone: 1(753) 919-372308-13-2025 Discharge summary [facility] Medical Records Department [address] [place] [address] Discharge Summary 07/07/25 1517 MR#: [id number] Acct: [id number] Name: ITZEL ALONZO Rep #:[id number] : 1950 75 From: Anthony Kiser PCP: SID Haro Status:ADM IN Location: [place] [address] Providers Date of Admission: 07/03/25 Date of [...] ? Requested for PT OT eval and social organization professor to assist with discharge planning 3. Right sided lung cancer (suprahilar, unclear exact specific type) with associated hypercalcemia of malignancy with recent transition to [facility]. Patient to resume care following discharge [...] is for patient to [facility] with [facility] following discharge 12. Restless leg syndrome [...] (Auto) 71.4 H, Lymph % (Auto) 19.0, Furn[place] % (Auto) 7.8, Eos % (Auto) 1.3, [...] line. Malignancy cannot be excluded. Reading Location: [facility] Lower Extremity CT 07/03/25 21:54 IMPRESSION: Acute, moderately comminuted and impacted right intertrochanteric femoral fracture. No aggressive osseous lesions. Reading Location: [facility] Hip X-Ray 07/04/25 10:00 IMPRESSION: Postsurgical changes for repair of right femoral fracture with no acute complications. Reading Location: [facility] Medications at Discharge Home Medications [...] 07/05/25 10:37 SB (Rec: 07/05/25 10:37 SB [id number]) Nutrition Malnutrition Evidence of Yes Malnutrition Exists [...] (Auto) 71.4 H, Lymph % (Auto) 19.0, Furnas % (Auto) 7.8, Eos % (Auto) 1.3, [...] [facility] Facility Charges/Coding Visit Charges Inpatient E&M: 50940 Disch Hosp >30min 07/07/25 1518 Cosigner Signature (if applicable): CC: SID Haji; Dr. Anthony Salgado MD; Dr. Nuno Campbell MD~ Signed [facility]08-13-2025 [facility] Medical Records Department [address] [place] [address] Discharge Summary 07/07/25 1517 MR#: [id number] Acct: [id number] Name: ITZEL ALONZO Rep #: [id number] : 1950 75 From: Anthony Salgado MD PCP: SID Haro Status:ADM IN Location: [facility] [id number] Providers Date of Admission: 07/03/25 Date of [...] ??? Requested for PT OT eval and social organization professor to assist with discharge planning 3. Right [...] is for [facility] with [facility] 12. Restless leg syndrome [...] 07/06/25 22:20: POC Glucose (more content not included)...[facility]08-13-2025 Discharge summary [facility] Medical Records Department [address] [place] [address] Transfer to [facility] MR#: [id number] Acct: [id number] Name: ITZEL ALONZO Rep #:[id number] : 1950 75 From: Anthony Kiser PCP: Carlene Haji, WILDLIFE TECHNICIAN-C Status:ADM IN Certification of patient admission REQUIRED AT TIME OF ADMISSION. I CERTIFY THAT POST-HOSPITAL ECF SERVICES ARE REQUIRED TO BE GIVEN ON AN IN-PATIENT BASIS BECAUSE OF THE ABOVE NAMED PATIENT'S NEED FOR PRISON CARE ON A CONTINUING BASIS FOR THE CONDITION(S) FOR WHICH HE/SHE WAS RECEIVING IN-PATIENT HOSPITAL SERVICES PRIOR TO HIS/HER TRANSFER TO THE [facility]. 07/07/25 1516 Diet Diet Order/Speech Therapy: INPATIENT [...] Mild tenderness present. Patient on pain medication. 8/12: Still complain of pain over right hip area. 07/24: Patient sitting on the recliner. Pain is better. Waiting for pre-CERT 2. Physical deconditioning/debility secondary to above ? Requested for PT OT eval and social organization professor to assist with discharge planning 3. Right sided lung cancer (suprahilar, unclear exact specific type) with associated hypercalcemia of malignancy with recent transition to [facility]. Patient to resume care following discharge [...] is for patient to [facility] with [facility] 12. Restless leg syndrome [...] (Auto) 71.4 H, Lymph % (Auto) 19.0, [place] % (Auto) 7.8, Eos % (Auto) 1.3, [...] line. Malignancy cannot be excluded. Reading Location: [facility] Lower Extremity CT 07/03/25 21:54 IMPRESSION: Acute, moderately comminuted and impacted right intertrochanteric femoral fracture. No aggressive osseous lesions. Reading Location: [facility] Hip X-Ray 07/04/25 10:00 IMPRESSION: Postsurgical changes for repair of right femoral fracture with no acute complications. Reading Location: [facility] Allergies/Procedures Done in Hospital Allergies [...] Staff] - Within 2 Weeks Carlene Haji, WILDLIFE TECHNICIAN-C [Primary Care Provider] - Within 2 Weeks Disposition Disposition (needs filled in before D/C Order can be placed): [facility] (1) Closed intertrochanteric fracture of right hip Qualifiers: Encounter type: initial encounter Fracture alignment: displaced Qualified Code(s): S72.141A - Displaced intertrochanteric fracture of right femur, initialencounter for closed fracture 07/07/25 1516 Cosigner Signature (if applicable): CC: WILDLIFE TECHNICIAN-René Haji; Dr. Johanne Evans MD; Dr. Uche Felix MD; Dr. Nuno Campbell MD ~ [facility]08-13-2025 Progress note [facility] Medical Records Department [address] [place] [address] Progress Note - Hospitalist 07/07/25 1401 MR#: [id number] Acct: [id number] Name: ITZEL ALONZO Rep #:[id number] : 1950 75 From: Anthony Kiser PCP: Carlene Haji WILDLIFE TECHNICIAN-C Status:ADM IN Location: [place] [id number] Reason for Visit Chief Complaint: Fall, R [...] 07/05/25 10:37 SB (Rec: 07/05/25 10:37 SB [id number]) Nutrition Malnutrition Evidence of Yes Malnutrition Exists [...] (Auto) 71.4 H, Lymph % (Auto) 19.0, [place] % (Auto) 7.8, Eos % (Auto) 1.3, [...] ? Requested for PT OT eval and social organization professor to assist with discharge planning 3. Right [...] is for patient to [facility] with [facility] 12. Restless leg syndrome [...] (Auto) 71.4 H, Lymph % (Auto) 19.0, [place] % (Auto) 7.8, Eos % (Auto) 1.3, [...] line. Malignancy cannot be excluded. Reading Location: [facility] Lower Extremity CT 07/03/25 21:54 IMPRESSION: Acute, moderately comminuted and impacted right intertrochanteric femoral fracture. No aggressive osseous lesions. Reading Location: [facility] Hip X-Ray 07/04/25 10:00 IMPRESSION: Postsurgical changes for repair of right femoral fracture with no acute complications. Reading Location: [facility] Charges/Coding Visit Charges Inpatient E&M: 15343 Subs Hosp L2 07/07/25 1403 Cosigner Signature (if applicable): CC: ~ Signed [facility]08-13-2025 Hospital Discharge instructionsAdditional Instructions [facility]: [facility] Phone: 1(187) 174-919608-12-2025 Progress note Author Anthony Salgado [facility] Note Date/Time July 06, 2025 4: 23pm [facility] Medical Records Department [address] [place] [address] Progress Note - Hospitalist 07/06/25 1007 MR#: [id number] Acct: [id number] Name: ITZEL ALONZO Rep #:[id number] : 1950 75 From: Anthony TREJO: Carlene Haji, WILDLIFE TECHNICIAN-C Status:ADM IN Location: [place] [id number] Reason for Visit Chief Complaint: Fall, R [...] 07/05/25 10:37 SB (Rec: 07/05/25 10:37 SB [id number]) Nutrition Malnutrition Evidence of Yes Malnutrition Exists [...] (Auto) 72.3 H, Lymph % (Auto)18.5 L, Furn[place] % (Auto) 6.9, Eos % (Auto) 1.6, [...] ? Requested for PT OT eval and social organization professor to assist with discharge planning 3. Right [...] is for patient to follow-up with the [facility] following discharge 12. Restless leg syndrome [...] (Auto) 72.3 H, Lymph % (Auto)18.5 L, Furn[place] % (Auto) 6.9, Eos % (Auto) 1.6, [...] Malignancy can not be excluded. Reading Location: [facility] Lower Extremity CT 07/03/25 21:54 IMPRESSION: Acute, moderately comminuted and impacted right intertrochanteric femoral fracture. No aggressive osseous lesions. Reading Location: [facility] Hip X-Ray 07/04/25 10:00 IMPRESSION: Postsurgical changes for repair of right femoral fracture with no acute complications. Reading Location: [facility] Charges/Coding Visit Charges Inpatient E&M: 54145 Subs Hosp L2 07/06/25 1623 <Electronically signed by Anthony Salgado MD> Cosigner Signature (if applicable): CC: ~ Signed [facility] Work Phone: 1(238) 827-793108-12-2025 Progress note [facility] Medical Records Department [address] [place] [address] Progress Note - Hospitalist 07/06/25 1007 MR#: [id number] Acct: [id number] Name: ITZEL ALONZO Rep #:[id number] : 1950 75 From: Anthony Kiser PCP: Carlene Haji WILDLIFE TECHNICIAN-C Status:ADM [facility] Reason for Visit Chief Complaint: Fall, R [...] 07/05/25 10:37 SB (Rec: 07/05/25 10:37 SB [id number]) Nutrition Malnutrition Evidence of Yes Malnutrition Exists [...] (Auto) 72.3 H, Lymph % (Auto)18.5 L, [place] % (Auto) 6.9, Eos % (Auto) 1.6, [...] ? Requested for PT OT eval and social organization professor to assist with discharge planning 3. Right sided lung cancer (suprahilar, unclear exact specific type) with associated hypercalcemia of malignancy with recent transition to [facility]. Patient to resume care following discharge [...] is for patient to [facility] with [facility] following discharge 12. Restless leg syndrome [...] (Auto) 72.3 H, Lymph % (Auto)18.5 L, Furn[place] % (Auto) 6.9, Eos % (Auto) 1.6, [...] line. Malignancy cannot be excluded. Reading Location: [facility] Lower Extremity CT 07/03/25 21:54 IMPRESSION: Acute, moderately comminuted and impacted right intertrochanteric femoral fracture. No aggressive osseous lesions. Reading Location: [facility] Hip X-Ray 07/04/25 10:00 IMPRESSION: Postsurgical changes for repair of right femoral fracture with no acute complications. Reading Location: [facility] Charges/Coding Visit Charges Inpatient E&M: 03516 Subs Hosp L2 07/06/25 1623 Cosigner Signature (if applicable): CC: ~ Signed [facility]08-11-2025 Progress note Author Anthony Salgado [facility] Note Date/Time July 05, 2025 4: 45pm [facility] Medical Records Department [address] [place] [address] Progress Note - Hospitalist 07/05/25 1634 MR#: [id number] Acct: [id number] Name: ITZEL ALONZO Rep #:[id number] : 1950 75 From: Anthony Kiser PCP: SID Haro Status:ADM IN Location: [place] [address] Reason for Visit Chief Complaint: Fall, R [...] 07/05/25 10:37 SB (Rec: 07/05/25 10:37 SB [id number]) Nutrition Malnutrition Evidence of Yes Malnutrition Exists [...] 79.1 H, Lymph % (Auto) 13.4 L, Furnas % (Auto) 5.5, Eos % (Auto) 1.1, [...] Complain of pain 07/04 around the operative region Physical exam General: [...] ? Requested for PT OT eval and social organization professor to assist with discharge planning 3. Right sided lung cancer (suprahilar, unclear exact specific type) with associated hypercalcemia of malignancy with recent transition to [facility]. Patient to resume care following discharge [...] is for patient to [facility] with [facility] following discharge 12. Restless leg syndrome [...] 79.1 H, Lymph % (Auto) 13.4 L, Furn[place] % (Auto) 5.5, Eos % (Auto) 1.1, [...] 232 H Charges/Coding Visit Charges Inpatient E&M: 07130 Subs Hosp L2 07/05/25 1645 <Electronically signed by Anthony Salgado MD> Cosigner Signature (if applicable): CC: ~ Signed [facility] Work Phone: 1(946) 861-621008-11-2025 Progress note [facility] Medical Records Department [address] [place] [address] Progress Note - Hospitalist 07/05/25 1634 MR#: [id number] Acct: [id number] Name: ITZEL ALONZO Rep #:[id number] : 1950 75 From: Anthony Kiser PCP: Carlene Haji NP-C Status:ADM IN Location: [place] [address]-1 Reason for Visit Chief Complaint: Fall, R [...] 07/05/25 10:37 SB (Rec: 07/05/25 10:37 SB [id number]) Nutrition Malnutrition Evidence of Yes Malnutrition Exists [...] 79.1 H, Lymph % (Auto) 13.4 L, Furnas % (Auto) 5.5, Eos % (Auto) 1.1, [...] ? Requested for PT OT eval and social organization professor to assist with discharge planning 3. Right sided lung cancer (suprahilar, unclear exact specific type) with associated hypercalcemia of malignancy with recent transition to [facility]. Patient to resume care following discharge [...] is for patient to follow-up with the [facility] following discharge 12. Restless leg syndrome [...] 79.1 H, Lymph % (Auto) 13.4 L, Furnas % (Auto) 5.5, Eos % (Auto) 1.1, [...] 232 H Charges/Coding Visit Charges Inpatient E&M: 59817 Subs Hosp L2 07/05/25 5005 Cosigner Signature (if applicable): CC: ~ Signed [facility]08-11-2025 Progress note Author Pily Rodriguez [facility] Note Date/Time July 05, 2025 1: 30pm [facility] Medical Records Department [address] [place] [address] Progress Note - Orthopedic 07/05/25 0938 MR#: [id number] Acct: [id number] Name: ITZEL ALONZO Rep #:[id number] : 1950 75 From: Pily BERRIOS PCP: Carlene Haji, WILDLIFE TECHNICIAN-C Status:ADM IN Location: [facility] EA374-3 Subjective Subjective Patient is 75-year-old male postop [...] 79.1 H, Lymph % (Auto) 13.4 L, Furnas % (Auto) 5.5, Eos % (Auto) 1.1, [...] fracture with no acute complications. Reading Location: [facility] Physical Exam Narrative Patient resting [...] monitor, and likely self resolve. 5. H/H 7.5.1: post operavtive anemia secondary to acute blood [...] Cosigner Signature (if applicable): cc: ~* Signed [facility] Work Phone: 1(793) 971-322408-11-2025 Progress note [facility] Medical Records Department [address] [place] [address] Progress Note - Orthopedic 07/05/2538 MR#: [id number] Acct: [id number] Name: ITZEL ALONZO Rep #:[id number] : 1950 75 From: Pily BERRIOS PCP: Carlene Haji WILDLIFE TECHNICIAN-C Status:ADM IN Location: MT3 CS829-0 Subjective Subjective Patient is 75-year-old male postop [...] 79.1 H, Lymph % (Auto) 13.4 L, Furnas % (Auto) 5.5, Eos % (Auto) 1.1, [...] fracture with no acute complications. Reading Location: [facility] Physical Exam Narrative Patient resting [...] by AGUSTINA Stephens on 07/05/25 at 1330 Addend orthopaedics to sign off at this time. 07/05/25 1330 Cosigner Signature (if applicable): cc: ~* Signed [facility]08-11-2025 Consult note Author Kayden Merino [facility] Note Date/Time July 05, 2025 6: 11am [facility] Medical Records Department [address] [place] [address] Anesthesia Postop Eval II 07/05/25 0611 MR#: [id number] Acct: [id number] Name: ITZEL ALONZO Rep #:[id number] : 1950 75 From: Kayden Merino MD PCP: SID Haro Status:ADM IN Y Race: AA Location: [address] Anesthesia Postop Eval I Sum Postop Eval Completion status Anesthesia document: Postop Eval 1 completed: Yes Anesthesia Postop Eval I Summary Anesthesia Postop Eval I Summary: Anesthesia Postop Eval I: Assessment Summary Airway patent Yes 07/04/25 11:46 WELLHEAD [email or web address].JCLI Spontaneous unlabored Yes 07/04/25 11:46 WELLHEAD PUMPER.JCLI respirations Mental status Awake 07/04/25 11:46 WELLHEAD PUMPER.JCLI nausea No 07/04/25 11:46 WELLHEAD PUMPER.JCLI Vomiting No 07/04/25 11:46 WELLHEAD PUMPER.JCLI Anesthesia Postop Eval I: Fluid Summary Crystalloid volume administer 500 07/04/25 11:46 WELLHEAD PUMPER.JCLI (ml) Colloids volume administered ( ml) Blood Product volume administered (ml) Total IV fluid infused 500 07/04/25 11:46 WELLHEAD PUMPER.JCLI Anesthesia Postop Eval I: Summary Notes Anesthesia Complication No 07/04/25 11:46 WELLHEAD PUMPER.JCSOPHY Anesthesia Complication Comment: Post-operative progress note Anesthesia: Postop Eval II Evaluation Mental status: Awake Pain Level: 0 nausea: No Vomiting: No 07/05/25 0611 <Electronically signed by Kayden Merino MD > Date _ Kayden Merino MD Cosigner Signature: Date CC: ~ Signed [facility] Work Phone: [phone] Consult note [facility] Medical Records Department [address] [place] [address] Anesthesia Postop Eval II 07/05/25 0611 MR#: [id number] Acct: [id number] Name: CHERIITZEL A Rep #:[id number] : 1950 75 From: Kayden Merino MD PCP: SID Haro Status:ADM IN Y Race: AA Location: [place] [address] Anesthesia Postop Eval I Sum Postop Eval Completion status Anesthesia document: Postop Eval 1 completed: Yes Anesthesia Postop Eval I Summary Anesthesia Postop Eval I Summary: Anesthesia Postop Eval I: Assessment Summary Airway patent Yes 07/04/25 11:46 WELLHEAD [email or web address].JCLI Spontaneous unlabored Yes 07/04/25 11:46 WELLHEAD PUMPER.JCLI respirations Mental status Awake 07/04/25 11:46 WELLHEAD PUMPER.JCLI nausea No 07/04/25 11:46 WELLHEAD PUMPER.JCLI Vomiting No 07/04/25 11:46 WELLHEAD PUMPER.JCLI Anesthesia Postop Eval I: Fluid Summary Crystalloid volume administer 500 07/04/25 11:46 WELLHEAD PUMPER.JCLI (ml) Colloids volume administered ( ml) Blood Product volume administered (ml) Total IV fluid infused 500 07/04/25 11:46 WELLHEAD PUMPER.JCLI Anesthesia Postop Eval I: Summary Notes Anesthesia Complication No 07/04/25 11:46 WELLHEAD PUMPER.JCLI Anesthesia Complication Comment: Post-operative progress note Anesthesia: Postop Eval II Evaluation Mental status: Awake Pain Level: 0 nausea: No Vomiting: No 07/05/25 0611 > Date _ Kayden Bernstein Signature: Date CC: ~ Signed [facility]08-10-2025 Consult note Author Kye Luu [facility] Note Date/Time July 04, 2025 11 :46am [facility] Medical Records Department [address] [place] [address] Anesthesia Postop Eval I 07/04/25 1146 MR#: [id number] Acct: [id number] Name: ITZEL ALONZO Rep #:[id number] : 1950 75 From: Kye Sexton PCP: SID Haro Status:ADM IN Y Race: AA Location: [place] [address] Anesthesia: Postop Eval I Current Vital Signs [...] Kye Click C RNA> Date _ Kye Click WELLHEAD PUMPER Cosigner Signature: Date CC: ~ Signed [facility] Work Phone: 1([phone]) 933-893508-10-2025 Consult note Author Nuno Campbell [facility] Note Date/Time July 04, 2025 10 :09[facility] Medical Records Department [address] [place] [address] Consultation - Orthopedics 07/04/25 0959 MR#: [id number] Acct: [id number] Name: ITZEL ALONZO Rep #:[id number] : 1950 75 From: Nuno Kiser PCP: Carlene Haji WILDLIFE TECHNICIAN-C Status:ADM IN Location: [place] [address] HPI Consult Data Date of Consult: 07/04/25 [...] consulted. Patient admitted to the medical service. [facility] Medical History CKD (chronic kidney disease), [...] budesonide-formoterol HFA 80 2 puff inhalation BID UNPAID INTERN D 05/09/21 07/02/25 History mcg-4.5 mcg/actuation aerosol [...] Clarity Clear, Urine pH 6.0, Ur Specific Howell 1.010, Urine Protein 100 H, Urine Glucose [...] 90.1 H, Lymph % (Auto) 6.3 L, Furnas % (Auto) 2.8, Eos % (Auto) 0.1, Baso % (Auto) 0.2, Absolute Neuts (auto) 11.4 H, Absolute Lymphs (auto) 0.80 L, Nucleated RBC % 0, Differential Comment SCANNED, RBC Morphology RARE, Hypochromasia 1+, Anisocytosis 1+, Microcytosis 1+, Anna Cells RARE, PT 15.5 H, INR 1.2, [...] 84.5 H, Lymph % (Auto) 10.7 L, Furnas % (Auto) 4.1, Eos % (Auto) 0.2, [...] Malignancy can not be excluded. Reading Location: [facility] Lower Extremity CT 07/03/25 21:54 IMPRESSION: Acute, moderately comminuted and impacted right intertrochanteric femoral fracture. No aggressive osseous lesions. Reading Location: [facility] Assessment & Plan Assessment/Plan [...] Signature (if applicable): CC: SID Haji~ Signed [facility] Work Phone: 1(745) 505-383508-10-2025 Radiology Diagnostic study note [facility] Imaging Services [address] [place] [address] Hip Min 2 Views (Portable) MR#: [id number] Acct: [id number] Name: ITZEL ALONZO Rep #: [id number] : 1950 M 75 From: Neymar Pedroza MD PCP: LUIS MIGUEL HaroC Status: ADM IN Study:Hip Min 2 Views (Portable) Date of Exam : 07/04/25 Exam# [id number] Ordering Dr: Taylor Campbell MD PROCEDURE: HIP [...] fracture with no acute complications. Reading Location: [facility] CC: WILDLIFE TECHNICIAN-C Carlene Haji; Dr. Nuno Campbell MD ~ Drier Operator Head: Signed [facility]08-10-2025 Consult note [facility] Medical Records Department [address] [place] [address] Anesthesia Postop Eval I 07/04/25 1146 MR#: [id number] Acct: [id number] Name: ITZEL ALONZO Rep #:[id number] : 1950 75 From: Kye Sexton PCP: SID Haro Status:ADM IN Y Race: AA Location: [place] [id number] 1 Anesthesia: Postop Eval I Current Vital Signs [...] Yes 07/04/25 1146 RNA> Date _ Kye Bernstein Signature: Date CC: ~ Signed [facility]08-10-2025 Procedure note [facility] Medical Records Department [address] [place] [address] Operative Report 07/04/25 1129 MR#: [id number] Acct: [id number] Name: ITZEL ALONZO Rep #:[id number] : 1950 75 From: Nuno Kiser PCP: SID Haro Status:ADM IN Location: [address] Problems Associated Problem List Diagnoses (1) Closed intertrochanteric fracture of right hip: Operative Report (Standard) Operative Information Date of Procedure: 07/04/25 Pre-Operative Diagnosis: Right hip intertrochanteric fracture Post-Operative Diagnosis: Same Surgery/Procedure Performed: Open reduction internal fixation right hip, long gamma nail stock hanger: Yes Devil Dog: Silvia Butler Tasks completed by nurse first assist: Closing and Implanting device Additional operating room assistant?: No Type of Anesthesia: Spinal RN [...] nail fixation, locked Surgeon: Dr. Nuno Campbell Director Of Radiology: Silvia Butler PA-C Anesthesia: spinal Medications: Ancef Indications for surgery: Patient is an 75-year-old male sustained a hip fracture yesterday at home.Patient and their family explained diagnosis and treatment options. Patient evaluated by the medical services. Patient did wishto have surgery. Appropriate informed consent obtained and signed. Findings: Patient had a displaced intertrochanteric hip fracture. They underwent standard reduction, internal fixation using a [place] long gamma 3 nail. Nail size was 11 mm x 420. 125 degree neck angle. Proximal cross lock screw was 110. Distal cross lock screw was 42.5. X-rays taken throughout. pastrycook's assistant, physician operating room assistant, was utilized throughout the entire procedure. They were vital to the procedure from beginning to end. Theyhelp with patient transfer, patient padding and positioning, fracture reduction,maintenance of fracture reduction, internal fixation of implants, w ound closure,bandage application, patient transfer. Without neurosurgical nurse practitioner, surgical timewould have been significantly increased and surgical outcome couldhave been less optimal. Procedure: Patient was taken to the operating room. Placed under a general anesthetic and transferred to the operating table with the help of the operating room assistant. With the help of the operating room assistant patient wasprepped and padded for surgery. Left foot was well-padded and placed in the traction boot. Right lower extremity was abducted and flexed out of harm's way. JACQUELINE hose and SCDs utilized. Fluoroscopy wasbrought in. With the help of the operating room assistant and manipulation of the limb, reduction [...] of this with the help of the operating room assistant holding the soft tissue protector appropriately. Long reaming was done starting and reaming up to 12.5 mm distally. Was then with the help of the operating room assistant . once reaming was done we [...] Incisions were thoroughly irrigated. Closing by the operating room assistant with deep0 Vicryl, mid layer 0 Vicryl, inverted 2-0 Vicryl, skin nayla. Puncture wounds closed with inverted 2-0 Vicryl and nayla. Xeroform 4 x 4's ABD tape applied. Patient was awoken from their anesthetic, transferred back to theirown bed with the help of the operating room assistant and into recovery room in satisfactory [...] SCD's VTE Pharm Prophylaxis ordered?: Yes 07/04/25 1135 Cosigner Signature (if applicable): CC: SID Haji; Dr. Johanne Evans MD; Dr. Nuno Campbell MD~ Signed [facility]08-10-2025 Consult note [facility] Medical Records Department [address] [place] [address] Consultation - Orthopedics 07/04/25 0959 MR#: [id number] Acct: [id number] Name: ITZEL ALONZO Rep #:[id number] : 1950 75 From: Nuno Kiser PCP: SID Haro Status:ADM IN Location: [facility] KV947-0 HPI Consult Data Date of Consult: 07/04/25 [...] consulted. Patient admitted to the medical service. [facility] Medical History CKD (chronic kidney disease), [...] budesonide-formoterol HFA 80 2 puff inhalation BID UNPAID INTERN D 05/09/21 07/02/25 History mcg-4.5 mcg/actuation aerosol [...] tablet 5 mg PO Q6H PRN pain 2 5 07/02/25 History pantoprazole 40 mg tablet,delayed [...] Clarity Clear, Urine pH 6.0, Ur Specific Howell 1.010, Urine Protein 100 H, Urine Glucose [...] 90.1 H, Lymph % (Auto) 6.3 L, Furnas % (Auto) 2.8, Eos % (Auto) 0.1, Baso % (Auto)0.2, Absolute Neuts (auto) 11.4 H, Absolute Lymphs (auto) 0.80 L, Nucleated RBC % 0, Differential Co mment SCANNED, RBC Morphology RARE, Hypochromasia 1+, Anisocytosis 1+, Microcytosis 1+, Anna Cells RARE, PT 15.5 H, INR 1.2, [...] 84.5 H, Lymph % (Auto) 10.7 L, Furnas % (Auto) 4.1, Eos % (Auto) 0.2, [...] line. Malignancy cannot be excluded. Reading Location: [facility] Lower Extremity CT 07/03/25 21:54 IMPRESSION: Acute, moderately comminuted and impacted right intertrochanteric femoral fracture. No aggressive osseous lesions. Reading Location: [facility] Assessment & Plan Assessment/Plan [...] Signature (if applicable): CC: SID Haji~ Signed [facility]08-10-2025 Consult note Author Kayden Merino [facility] Note Date/Time July 04, 2025 7: 42am [facility] Medical Records Department [address] [place] [address] Pre-Anesthesia Evaluation 07/04/25 0742 MR#: [id number] Acct: [id number] Name: ITZEL ALONZO Carlie Rep #:[id number] : 1950 75 From: Kayden Merino MD PCP: SID Haro Status:ADM IN Y Race: AA Location: [place] [id number] 1 ASA Classification* ASA Classification ASA Classification: 3 [...] hip fracure Anesthesia History Anesthesia History - soaping machine back tender: Anesthesia History - soaping machine back tender Hx Hospitalization Any Problems With Anesthesia Yes: [...] take am of surgery PONV PONV - soaping machine back tender: PONV - soaping machine back tender Female HX of Motion Sickness HX of N/V After Surgery Non-Smoker Duration of Surgery greater than 60 minutes Number of Risk Factors PONV Score Height & Weight Height & Weight: Anesthesia: Height & Weight Height 6 ft 1 in 07/04/25 00:20 Weight: 58.1 kg 07/04/25 05:45 Body Mass Index (BMI) 16.9 07/04/25 05:45 Respiratory Assessment Respiratory Assessment - soaping machine back tender: Respiratory Tract Infection Hx - soaping machine back tender Hx Respiratory Tract Infection No 07/04/25 00:46 STOP Sleep Apnea STOP Sleep Apnea - soaping machine back tender: STOP Sleep Apnea - soaping machine back tender Hx Hypertension Yes 07/04/25 07:08 Hx Sleep [...] Tobacco Use History Tobacco Use History - soaping machine back tender: Tobacco Use History - soaping machine back tender Tobacco Use Cigarettes 04/23/25 21:27 Smoking Status Current some day smoker 07/04/25 00:20 Hx Tobacco Use Yes 07/04/25 00:20 Years Smoking Packs Smoked per Day Smoking Cessation Date was within the last 15 years Hx Smoking Cessation Date Hx Smoking Cessation No 07/04/25 00:20 Counseling Hematologic Medial History Hematologic Hx - soaping machine back tender: 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 Hx of Blood Transfusion Yes 07/04/25 00:20 [...] confused, unrespo /Reproduction History /Reproductive History - soaping machine back tender: /Reproductive Hx- soaping machine back tender Hx Now No 07/04/25 00:46 Gestational Age (in weeks): EDC: Hx Hx Para Hx Section SAB No 07/04/25 00:46 Active Medications Active Medications: Current Medications Generic Name Dose Route Start Last Admin Trade Name Freq PRN Reason Stop Dose Admin Acetaminophen 650 mg 07/03/25 23:57 Acetaminophen 325 Mg Tablet PO Q4H PRN PRN Fever, pain -09/03 Al Hydroxide/Mg Hydroxide 30 ml 07/03/25 23:57 Mag Hydrox/Al Hydrox/Simeth 30 Ml Udc PO Q6H PRN PRN Gastric Burning Albuterol Sulfate 2.5 mg 07/03/25 23:57 Albuterol 2.5 Mg/3 Ml Vial.Neb. INHALATION Q2H PRN PRN Dyspnea, wheezing Amlodipine Besylate 10 mg 07/04/25 22:00 Amlodipine 10 Mg Tablet PO QHS [facility] Protocol Atorvastatin Calcium 80 mg 07/04/25 22:00 Atorvastatin Calcium 80 Mg Tablet PO QHS [facility] Budesonide 0.5 mg 07/03/25 23:57 07/04/25 07:34 Budesonide Respules 0.5 Mg/2 Ml Ampul.Neb. INHALATION 0.5 mg BID.RT [facility] Administration Calamine/Phenol 1 applic 07/04/25 10:00 Menthol/Lanolin/Calamine/Znox 113 Gm Tube TOPICAL 4X/DAY [facility] Protocol Calcium Carbonate 1,500 mg 07/04/25 10:00 Calcium (Elemental) 500 Mg Tablet PO DAILY [facility] Cyclobenzaprine HCl 10 mg 07/04/25 07:37 Cyclobenzaprine Hcl 10 Mg Tablet PO TID PRN muscle spasms Gabapentin 300 mg 07/04/25 14:00 Gabapentin 300 Mg Capsule PO TID [facility] Glucagon 1 mg 07/03/25 23:57 Glucagon 1 [...] 07/04/25 02:09 IV 07/04/25 13:16 75 mls/hr .[id number] [facility] Administration Dextrose 250 mls @ 0 mls/hr 07/03/25 23:57 Dextrose 10%-Water IV .Q0M PRN HYPOGLYCEMIA Protocol As Directed Sodium Chloride 250 mls @ 15 mls/hr 07/04/25 00:53 IV .[id number] PRN Saline Flush Sodium Chloride 250 mls @ 15 mls/hr 07/04/25 00:53 IV .[id number] PRN Additional IVPB Infusion Insulin Human Lispro 0 unit 07/04/25 07:00 07/04/25 06:56 Insulin Lispro 100 Unit/Ml Insuln.Pen SC Not Given ACHS [facility] Protocol Magnesium Hydroxide 5 ml 07/04/25 07:37 [...] 10:00 Nicotine 14 Mg Patch TD DAILY [facility] Non-Formulary Medication 90 mcg 07/04/25 07:45 Albuterol INHALATION Q4H PRN [facility] Non-Formulary Medication 325 mg 07/04/25 07:45 Ferrous Sulfate [Feosol] PO .every other day [facility] Non-Formulary Medication 1 mg 07/04/25 22:00 Ropinirole PO QHS [facility] Non-Formulary Medication 1 drp 07/04/25 22:00 Cyclopentolate LEFT EYE QHS [facility] Non-Formulary Medication 1 drp 07/04/25 10:00 Polyvinyl Alcohol-Povidone OPHTHALMIC 4X/DAY [facility] Non-Formulary Medication 1 drp 07/04/25 07:45 Prednisolone Acetate LEFT EYE Q6H [facility] Ondansetron HCl 4 mg 07/03/25 23:57 Ondansetron 4 Mg/2 Ml Vial IV Q8H PRN PRN NAUSEA/VOMITING Oxycodone HCl 5 - 10 mg 07/03/25 23:57 Oxycodone 5 Mg Tablet PO Q4H PRN PRN Pain Score 4-10 Pantoprazole Sodium 40 mg 07/04/25 10:00 Pantoprazole Sodium 40 Mg Tablet PO DAILY [facility] Polyethylene Glycol 17 gm 07/04/25 10:00 Polyethylene Glycol 3350 17 Gm Packet PO DAILY [facility] Senna/Docusate Sodium 2 tablet 07/04/25 10:00 Senna/Docusate Sodium 1 Tablet PO BID [facility] Sodium Chloride 10 - 40 ml 07/04/25 [...] budesonide-formoterol HFA 80 2 puff inhalation BID UNPAID INTERN D 05/09/21 07/02/25 History mcg-4.5 mcg/actuation aerosol [...] MD Cosigner Signature: Date CC: ~ Signed [facility] Work Phone: 1(827) 213-122608-10-2025 Progress note Author Uche Felix [facility] Note Date/Time July 04, 2025 7: 37am [facility] Medical Records Department [address] [place] [address] Progress Note - Hospitalist 07/04/2521 MR#: [id number] Acct: [id number] Name: ITZEL ALONZO Rep #:[id number] : 1950 75 From: Uche Felix MD PCP: Carlene Haji WILDLIFE TECHNICIAN-C Status:ADM IN Location: [place] [address] Reason for Visit Chief Complaint: Fall, R [...] Clarity Clear, Urine pH 6.0, Ur Specific Howell 1.010, Urine Protein 100 H, Urine Glucose [...] 90.1 H, Lymph % (Auto) 6.3 L, Furnas % (Auto) 2.8, Eos % (Auto) 0.1, Baso % (Auto) 0.2, Absolute Neuts (auto) 11.4 H, Absolute Lymphs (auto) 0.80 L, Nucleated RBC % 0, Differential Comment SCANNED, RBC Morphology RARE, Hypochromasia 1+, Anisocytosis 1+, Microcytosis 1+, Anna Cells RARE, PT 15.5 H, INR 1.2, [...] 84.5 H, Lymph % (Auto) 10.7 L, Furnas % (Auto) 4.1, Eos % (Auto) 0.2, [...] Malignancy can not be excluded. Reading Location: [facility] Lower Extremity CT 07/03/25 21:54 IMPRESSION: Acute, moderately comminuted and impacted right intertrochanteric femoral fracture. No aggressive osseous lesions. Reading Location: [facility] Physical Exam Narrative GENERAL: [...] ? Requested for PT OT eval and social organization professor to assist with discharge planning 3. Right sided lung cancer (suprahilar, unclear exact specific type) with associated hypercalcemia of malignancy with recent transition to [facility]. Patient to resume care following discharge [...] is for patient to follow[facility]up with the [facility] following discharge 12. Restless leg syndrome [...] 50 Minutes Charges/Coding Visit Charges Inpatient E&M: 72791 Subs Hosp L3 07/04/25 0737 <Electronically signed by Uche Felix MD> Cosigner Signature (if applicable): CC: ~ Signed [facility] Work Phone: 1(805) 546-412008-10-2025 Consult note [facility] Medical Records Department [address] [place] [address] Pre-Anesthesia Evaluation 07/04/25 0742 MR#: [id number] Acct: [id number] Name: ITZEL ALONZO Rep #:[id number] : 1950 75 From: Kayden Merino MD PCP: SID Haro Status:ADM IN Y Race: AA Location: [facility] -1 ASA Classification* ASA Classification ASA Classification: [...] 5 RBC 3.69 M/mm3 (4.6-6.2) L 07/04/25 05:07/04/25 Hgb 7.7 g/dL (13.0-16.5) L 07/04/25 05:07/04/25 Hct 25.5 % (40-54) L 07/04/25 05:27 07/04/25 Plt Count 301 K/mm3 (150-450) 07/04/25 05:25 CHEMISTRY Potassium 4.2 mmol/L (3.3-5.1) 07/04/25 05:27 [...] hip fracure Anesthesia History Anesthesia History - soaping machine back tender: Anesthesia History - soaping machine back tender Hx Hospitalization Any Problems With Anesthesia Yes: [...] take am of surgery PONV PONV - soaping machine back tender: PONV - soaping machine back tender Female HX of Motion Sickness HX of N/V After Surgery Non-Smoker Duration of Surgery greater than 60 minutes Number of Risk Factors PONV Score Height & Weight Height & Weight: Anesthesia: Height & Weight Height 6 ft 1 in 07/04/25 00:20 Weight: 58.1 kg 07/04/25 05:45 Body Mass Index (BMI) 16.9 07/04/25 05:45 Respiratory Assessment Respiratory Assessment - soaping machine back tender: Respiratory Tract Infection Hx - soaping machine back tender Hx Respiratory Tract Infection No 07/04/25 00:46 STOP Sleep Apnea STOP Sleep Apnea - soaping machine back tender: STOP Sleep Apnea - soaping machine back tender Hx Hypertension Yes 07/04/25 07:08 Hx Sleep [...] Tobacco Use History Tobacco Use History - soaping machine back tender: Tobacco Use History - soaping machine back tender Tobacco Use Cigarettes 04/23/25 21:27 Smoking Status Current some day smoker 07/04/25 00:20 Hx Tobacco Use Yes 07/04/25 00:20 Years Smoking Packs Smoked per Day Smoking Cessation Date was within the last 15 years Hx Smoking Cessation Date Hx Smoking Cessation No 07/04/25 00:20 Counseling Hematologic Medial History Hematologic Hx - soaping machine back tender: 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 INHALATION 0.5 mg BID.RT CAMMIE Administration Calamine/Phenol 1 applic 07/04/25 10:00 Menthol/Lanolin/Calamine/Znox 113 Gm Tube TOPICAL 4X/DAY [facility] Protocol Calcium Carbonate 1,500 mg 07/04/25 10:00 Calcium (Elemental) 500 Mg Tablet PO DAILY [facility] Cyclobenzaprine HCl 10 mg 07/04/25 07:37 Cyclobenzaprine Hcl 10 Mg Tablet PO TID PRN muscle spasms Gabapentin 300 mg 07/04/25 14:00 Gabapentin 300 Mg Capsule PO TID [facility] Glucagon 1 mg 07/03/25 23:57 Glucagon 1 [...] 07/04/25 02:09 IV 07/04/25 13:16 75 mls/hr .[id number] CAMMIE Administration Dextrose 250 mls @ 0 mls/hr 07/03/25 23:57 Dextrose 10%-Water IV .Q0M PRN HYPOGLYCEMIA Protocol As Directed Sodium Chloride 250 mls @ 15 mls/hr 07/04/25 00:53 IV .[id number] PRN Saline Flush Sodium Chloride 250 mls @ 15 mls/hr 07/04/25 00:53 IV .[id number] PRN Additional IVPB Infusion Insulin Human Lispro 0 unit 07/04/25 07:00 07/04/25 06:56 Insulin Lispro 100 Unit/Ml Insuln.Pen SC Not Given ACHS [facility] Protocol Magnesium Hydroxide 5 ml 07/04/25 07:37 [...] 10:00 Nicotine 14 Mg Patch TD DAILY [facility] Non-Formulary Medication 90 mcg 07/04/25 07:45 Albuterol INHALATION Q4H PRN [facility] Non-Formulary Medication 325 mg 07/04/25 07:45 Ferrous Sulfate [Feosol] PO .every other day [facility] Non-Formulary Medication 1 mg 07/04/25 22:00 Ropinirole PO QHS [facility] Non-Formulary Medication 1 drp 07/04/25 22:00 Cyclopentolate LEFT EYE QHS [facility] Non-Formulary Medication 1 drp 07/04/25 10:00 Polyvinyl [...] budesonide-formoterol HFA 80 2 puff inhalation BID UNPAID INTERN D 05/09/21 07/02/25 History mcg-4.5 mcg/actuation aerosol [...] MD Cosigner Signature: Date CC: ~ Signed [facility]08-10-2025 Progress note [facility] Medical Records Department [address] [place] [address] Progress Note - Hospitalist 07/04/25720 MR#: [id number] Acct: [id number] Name: ITZEL ALONZO Rep #:[id number] : 1950 75 From: Uche Felix MD PCP: Carlene N Adithya, WILDLIFE TECHNICIAN-C Status:ADM IN Location: MS3 ZI367-4 Reason for Visit Chief Complaint: Fall, R [...] Clarity Clear, Urine pH 6.0, Ur Specific Howell 1.010, Urine Protein 100 H, Urine Glucose [...] 90.1 H, Lymph % (Auto) 6.3 L, Furnas % (Auto) 2.8, Eos % (Auto) 0.1, [...] 84.5 H, Lymph % (Auto) 10.7 L, Furnas % (Auto) 4.1, Eos % (Auto) 0.2, [...] line. Malignancy cannot be excluded. Reading Location: [facility] Lower Extremity CT 07/03/25 21:54 IMPRESSION: Acute, moderately comminuted and impacted right intertrochanteric femoral fracture. No aggressive osseous lesions. Reading Location: [facility] Physical Exam Narrative GENERAL: [...] ? Requested for PT OT eval and social organization professor to assist with discharge planning 3. Right [...] is for patient to follow-up with the [facility] following discharge 12. Restless leg syndrome [...] 50 Minutes Charges/Coding Visit Charges Inpatient E&M: 33398 [facility] Hosp 07/04/25 0737 Cosigner Signature (if applicable): CC: ~ Signed [facility]08-10-2025 Discharge summary Author Steven Tejeda [facility] Note Date/Time July 04, 2025 1: 09am [facility] Medical Records Department [address] [place] [address] Emergency Department Summary 07/03/25 MR#: [id number] Acct: [id number] Name: ITZEL ALONZO Rep #:[id number] : 1950 75 From: Steven Higgins PCP: Carlene Haji NP-C Status:ADM IN Location: [facility] JL142-9 HPI History of Present Illness HPI Narrative: [...] for Parasthesia, Weakness or Loss of Funtion [facility] Medical History (Updated 07/03/25 @ 23:18 [...] budesonide-formoterol HFA 80 2 puff inhalation BID UNPAID INTERN D 05/09/21 Unknown History mcg-4.5 mcg/actuation aerosol [...] 90.1 H Lymph % (Auto) 6.3 L Furnas % (Auto) 2.8 Eos % (Auto) 0.1 Baso % (Auto) 0.2 Absolute Neuts (auto) 11.4 H Absolute Lymphs (auto) 0.80 L Nucleated RBC % 0 Differential Comment SCANNED RBC Morphology RARE Hypochromasia 1+ Anisocytosis 1+ Microcytosis 1+ Anna Cells RARE PT 15.5 H INR 1.2 [...] Clarity Clear Urine pH 6.0 Ur Specific Howell 1.010 Urine Protein 100 H Urine Glucose [...] Malignancy can not be excluded. Reading Location: [facility] Lower Extremity CT 07/03/25 21:54 IMPRESSION: Acute, moderately comminuted and impacted right intertrochanteric femoral fracture. No aggressive osseous lesions. Reading Location: [facility] X-rays of the right [...] shows sinustachycardia with a rate of 112. AK interval was normal at 158 ms. QRS intervalwas normal at 76 ms. QTc interval is normal at 455 ms. [place] was normal. Thereare nonspecific ST-T wave changes noted. There are no acute abnormalities noted. Prior EKG tracings: available for review Prior: Unchanged (05/11/2025) Management Discussion w/another healthcare provider: Hospitalist and Video And Sound Recorder Treatment and Re-Evaluation Narrative: Patient was given [...] lung, Fall Disposition Disposition: Acute Care Hospital [facility] Discharge Date/Time: 07/03/25 23:37 What to do if you have Problems For any increased pain, shortness of breath, bleeding, nausea or vomiting, chestpain, or any unexpected problems, contact your Primary Care Provider. Call [facility] ([phone]) or report to the closest Emergency Room. Call 911 if necessary. 07/04/25 0109 <Electronically signed by Steven Tejeda DO> Cosigner Signature (if applicable): CC: WILDLIFE TECHNICIAN-C Carlene Haji ~ Signed [facility] Work Phone: 1(970) 272-614608-10-2025 History and physical note Author Johanne Evans [facility] Note Date/Time July 03, 2025 11: 21pm [facility] Medical Records Department [address] [place] [address] H&P Exam - Hospitalist 07/03/252236 MR#: [id number] Acct: [id number] Name: ITZEL ALONZO Rep #:[id number] : 1950 75 From: Johanne Evans MD PCP: SID Haro Status:ADM IN Location: [facility] GR304-5 HPI - General General Date of Admission: [...] Formertobacco use, COPD, recent transfer [facility] [place] [facility] on 05/13/25 following largeright-sided lung cancer wit suspected postobstructive pneumonia with acute metabolic encephalopathy suspected secondary to hypercalcemia of malignancy in addition to acute on chronic anemia with suspected upper GI bleed for further evaluation who now presents to the [facility] ED on 07/03/2025 with onset of right [...] osseous lesion would plan to admit to [facility] and evaluate for repair of hip fracture. [facility] Medical History (Updated 07/03/25 @ 23:18 [...] budesonide-formoterol HFA 80 2 puff inhalation BID UNPAID INTERN D 05/09/21 Unknown History mcg-4.5 mcg/actuation aerosol [...] Clarity Clear, Urine pH 6.0, Ur Specific Howell 1.010, Urine Protein 100 H, Urine Glucose [...] 90.1 H, Lymph % (Auto) 6.3 L, Furnas % (Auto) 2.8, Eos % (Auto) 0.1, Baso % (Auto) 0.2, Absolute Neuts (auto) 11.4 H, Absolute Lymphs (auto) 0.80 L, Nucleated RBC % 0, PT 15.5 H, INR 1.2, APTT 22.7 L Imaging Radiology Impression Hip/Pelvis X-Ray 07/03/25 20:20 IMPRESSION: Fracture of the right greater trochanter, extending into the intertrochanteric line. Malignancy can not be excluded. Reading Location: [facility] Lower Extremity CT 07/03/25 21:54 IMPRESSION: Acute, moderately comminuted and impacted right intertrochanteric femoral fracture. No aggressive osseous lesions. Reading Location: [facility] Assessment & Plan Assessment/Plan (1) Closed intertrochanteric fracture of right hip: (2) Fall: PLAN: Plan The patient is a 75 y/o M w/ PMHx: CKD stage II per GFR trending, RLS, Cirrhosisassociated with hepatitis unclear specific type, Diabetes mellitus type II with chronic neuropathy, Anxiety and Depression, GERD, Hx CVA, Chronic anemia, Formertobacco use, COPD, recent transfer [facility] [place] [facility] on 05/13/25 following largeright-sided lung cancer wit suspected postobstructive pneumonia with acute metabolic encephalopathy suspected secondary to hypercalcemia of malignancy in addition to acute on chronic anemia with suspected upper GI bleed for further evaluation who now presents to the [facility] ED on 07/03/2025 with onset of right [...] [facility], from discussion [...] 16 minutes. Charges/Coding Visit Charges Inpatient E&M: 26086 Init Hosp L3 Procedures Hospitalists Procedures: 53293 Advncd Care Plan 30 Min 07/03/25 2321 <Electronically signed by Johanne Evans MD> Cosigner Signature (if applicable): CC: WILDLIFE TECHNICIANNissa Haji; Dr. Johanne Evans MD~ Signed [facility] Work Phone: 1(801) 930-940908-10-2025 Discharge summary [facility] Medical Records Department [address] [place] [address] Emergency Department Summary 07/03/25 MR#: [id number] Acct: [id number] Name: ITZEL ALONZO Rep #:[id number] : 1950 75 From: Steven Higgins PCP: SID Haro Status:ADM IN Location: [facility] [id number] HPI History of Present Illness HPI Narrative: [...] for Parasthesia, Weakness or Loss of Funtion [facility] Medical History (Updated 07/03/25 @ 23:18 [...] budesonide-formoterol HFA 80 2 puff inhalation BID UNPAID INTERN D 05/09/21 Unknown History mcg-4.5 mcg/actuation aerosol [...] 90.1 H Lymph % (Auto) 6.3 L Furnas % (Auto) 2.8 Eos % (Auto) 0.1 Baso % (Auto) 0.2 Absolute Neuts (auto) 11.4 H Absolute Lymphs (auto) 0.80 L Nucleated RBC % 0 Differential Comment SCANNED RBC Morphology RARE Hypochromasia 1+ Anisocytosis 1+ Microcytosis 1+ Anna Cells RARE PT 15.5 H INR 1.2 [...] Clarity Clear Urine pH 6.0 Ur Specific Howell 1.010 Urine Protein 100 H Urine Glucose [...] line. Malignancy cannot be excluded. Reading Location: [facility] Lower Extremity CT 07/03/25 21:54 IMPRESSION: Acute, moderately comminuted and impacted right intertrochanteric femoral fracture. No aggressive osseous lesions. Reading Location: [facility] X-rays of the right [...] interpretation, shows sinustachycardia with a rate of112. AK interval was normal at 158 ms. QRS intervalwas normal at 76 ms. QTc interval is normal at 455 ms. [place] was normal. Thereare nonspecific ST-T wave changes noted. There are no acute abnormalities noted. Prior EKG tracings: available for review Prior: Unchanged (05/11/2025) Management Discussion w/another healthcare provider: Hospitalist and Video And Sound Recorder Treatment and Re-Evaluation Narrative: Patient was given [...] lung, Fall Disposition Disposition: Acute Care Hospital [facility] Discharge Date/Time: 07/03/25 23:37 What to do if you have Problems For any increased pain, shortness of breath, bleeding, nausea or vomiting, chestpain, or any unexpected problems, contact your Primary Care Provider. Call [facility] ([phone]) or report tothe closest Emergency Room. Call 911 if necessary. 07/04/25 0109 Cosigner Signature (if applicable): CC: LUIS MIGUELC Carlene Haji ~ Signed [facility]08-09-2025 History and physical note [facility] Medical Records Department [address] [place] [address] H&P Exam - Hospitalist 07/03/252236 MR#: [id number] Acct: [id number] Name: ITZEL ALONZO Rep #:[id number] : 1950 75 From: Johanne Evans MD PCP: SID Haro Status:ADM IN Location: [facility] IK024-4 HPI - General General Date of Admission: [...] COPD, [facility] on 05/13/25 following largeright-sided lung cancer wit suspected postobstructive pneumonia with acute metabolic encephalopathy suspected secondary to hypercalcemia of malignancy in addition to acute on chronic anemia with suspected upper GI bleed for further evaluation who now presents to the [facility] ED on 07/03/2025 with onset of right [...] osseous lesion would plan to admit to [facility] and evaluate for repair of hip fracture. [facility] Medical History (Updated 07/03/25 @ 23:18 [...] budesonide-formoterol HFA 80 2 puff inhalation BID UNPAID INTERN D 05/09/21 Unknown History mcg-4.5 mcg/actuation aerosol [...] Clarity Clear, Urine pH 6.0, Ur Specific Howell 1.010, Urine Protein 100 H, Urine Glucose [...] 90.1 H, Lymph % (Auto) 6.3 L, Furnas % (Auto) 2.8, Eos % (Auto) 0.1, Baso % (Auto)0.2, Absolute Neuts (auto) 11.4 H, Absolute Lymphs (auto) 0.80 L, Nucleated RBC % 0, PT 15.5 H, INR1.2, APTT 22.7 L Imaging Radiology Impression Hip/Pelvis X-Ray 07/03/25 20:20 IMPRESSION: Fracture of the right greater trochanter, extending into the intertrochanteric line. Malignancy cannot be excluded. Reading Location: [facility] Lower Extremity CT 07/03/25 21:54 IMPRESSION: Acute, moderately comminuted and impacted right intertrochanteric femoral fracture. No aggressive osseous lesions. Reading Location: [facility] Assessment & Plan Assessment/Plan (1) Closed intertrochanteric fracture of right hip: (2) Fall: PLAN: Plan The patient is a 75 y/o M w/ PMHx: CKD stage II per GFR trending, RLS, Cirrhosisassociated with hepatitis unclear specific type, Diabetes mellitus type II with chronic neuropathy, Anxiety and Depression, GERD, Hx CVA, Chronic anemia, Formertobacco use, COPD, recent transfer [facility] [place] [facility] on 05/13/25 following largeright-sided lung cancer wit suspected postobstructive pneumonia with acute metabolic encephalopathy suspected secondary to hypercalcemia of malignancy in addition to acute on chronic anemia with suspected upper GI bleed for further evaluation who now presents to the [facility] ED on 07/03/2025 with onset of right [...] [facility]: [facility], from discussion [...] 16 minutes. Charges/Coding Visit Charges Inpatient E&M: 90246 Init Hosp L3 Procedures Hospitalists Procedures: 12702 Advncd Care Plan 30 Min 07/03/25 2321 Cosigner Signature (if applicable): CC: SID Haji; Dr. Johanne Evans MD~ Signed [facility]08-09-2025 Radiology Diagnostic study note [facility] Imaging Services [address] [facility] [place], [place] [address] Extremity Lower without Contra MR#: [id number] Acct: [id number] Name: ITZEL ALONZO Rep #: [id number] : 1950 M 75 From: Bridget Abraham MD PCP: SID Haro Status: REG ER Study:Extremity Lower without Contra Date of Exam: 07/03/25 Exam# [id number] Ordering Dr: Taylor Campbell MD PROCEDURE: EXTREMITY [...] fracture. No aggressive osseous lesions. Reading Location: [facility] CC: SID Haji; Dr. Nuno Campbell MD ~ Drier Operator Head: Signed [facility]08-09-2025 Radiology Diagnostic study note [facility] Imaging Services [address] [place] [address] HIP, UNI W/ Pelvis 2-3 Views MR#: [id number] Acct: [id number] Name: ITZEL ALONZO Rep #: [id number] : 1950 M 75 From: Bridget Abraham MD PCP: SID Haro Status: REG ER Study:HIP, UNI W/ Pelvis 2-3 Views Date of Ex am: 07/03/25 Exam# [id number] Ordering Dr: Steven Tejeda DO PROCEDURE: HIP, [...] line. Malignancy cannot be excluded. Reading Location: [facility] CC: IKE-René Haji; Dr. Steven Tejeda DO ~ Drier Operator Head: Signed [facility]06-19-2025 Discharge summary [facility] Medical Records Department [address] [place] [address] Discharge Summary 05/13/25 1257 MR#: [id number] Acct: [id number] Name: ITZEL ALONZO Rep #:[id number] : 1950 74 From: Anthony Kiser PCP: SID Haro Status:ADM IN Location: [facility] [id number]- [id number] Providers Date of Admission: 05/11/25 Primary [...] Patient is a 74-year-old male who presented [facility] ED on 05/11/2025 with worsening fatigue, weakness and confusion. 1. Large right-sided lung cancer with suspected postobstructive pneumonia ? Admit under inpatient status to PCU. Patient with known history of large right-sided lung cancer.Chest x-ray on admit with concern for acute postobstructive pneumonia in setting of lung cancer. Stable on room air at rest. Patient has established oncologist Dr. Lake, [facility]. I myself tried to contact through the transfer line 2 times but unsuccessful. Discussed with the case management associate. [place] oncologist wanted CT head before transfer. In [...] As plan is for transfer to the [place], will hold on GI consult for now. [...] code, verified Expected disposition: Likely transfer to [facility] Patient is being transferred to [facility] for further care and decision makingregarding [...] lung cancer, exact sampler/tissue type unclear. Follows [place] oncologist, await path . Because of transportation [...] 75.7 H, Lymph % (Auto) 16.4 L, Furnas % (Auto) 6.5, Eos % (Auto) 0.9, [...] mass. No acute intracranial process. Reading Location: [id number] D/C Instructions DC O2, CPAP, BIPAP Needs [...] Anthony Salgado Charges/Coding Visit Charges Inpatient E&M: 87017 Disch Hosp >30min 05/13/25 1400 Cosigner Signature (if applicable): CC: IKE-C Carlene Haji; Dr. Anthony Salgado MD~ Signed [facility]06-19-2025 Consult note [facility] Medical Records Department [address] [place] [address] Pharmacokinetic/Renal -Consult 05/13/25 1107 MR#: [id number] Acct: [id number] Name: ITZEL ALONZO Rep #:[id number] : 1950 74 From: Gaye Garcia PCP: SID Haro Status:ADM IN Y Location: [place] [address] Consult Antibiotic Management Pharmacy has been consulted [...] 05/13/25 1108 Date _ Gaye Garcia 05/13/25 Tito HERBERT> Day Signature (if applicable): Date Anthony Salgado MD CC: ~ Signed [facility]06-19-2025 Consult note Author Gaye Garcia [facility] Note Date/Time May 13, 2025 1:57 pm [facility] Medical Records Department [address] [place] [address] Pharmacokinetic/Renal -Consult 05/13/25 1107 MR#: [id number] Acct: [id number] Name: ITZEL ALONZO Rep #:[id number] : 1950 74 From: Gaye Garcia PCP: Carlene Haji, WILDLIFE TECHNICIAN-C Status:ADM IN Location: [place] [address] Consult Antibiotic Management Pharmacy has been consulted [...] Date Anthony Salgado MD CC: ~ Signed [facility] Work Phone: 1(373) 982-268506-19-2025 [facility] Medical Records Department [address] [place] [address] Discharge Summary 05/13/25 1257 MR#: [id number] Acct: [id number] Name: ITZEL ALONZO Rep #: [id number] : 1950 74 From: Anthony Salgado MD PCP: SID Haro Status:ADM IN Location: [place] [address] Providers Date of Admission: 05/11/25 Primary Care [...] Patient is a 74-year-old male who presented [facility] ED on 05/11/2025 with worsening fatigue, weakness and confusion. 1. Large right-sided lung cancer with suspected postobstructive pneumonia ??? Admit under inpatient status to U. Patient with known history of large right-sided lung cancer. Chest x-ray on admit with concern for acute postobstructive pneumonia in setting of lung cancer. Stable on room air at rest. Patient has established oncologist Dr. Lake, [facility]. I myself tried to contact through the transfer line 2 times but unsuccessful. Discussed with the case management associate. [facility] head before transfer. [...] As plan is for transfer to the [place], will hold on GI consult for now. [...] code, verified Expected disposition: Likely transfer to [facility] Patient is being transferred to [facility] for further care and decision making [...] PO DAILY PRN c (more content not included)...[facility]06-18-2025 Progress note Author Anthony Salgado [facility] Note Date/Time May 12, 2025 5:22 pm [facility] Medical Records Department [address] [facility] [place] [address] Progress Note - Hospitalist 05/12/25 0935 MR#: [id number] Acct: [id number] Name: ITZEL ALONZO Rep #:[id number] : 1950 74 From: Anthony Kiser PCP: SID Haro Status:ADM IN Location: [facility] [id number]- 1 Reason for Visit Reason for Visit: [...] 74.3 H, Lymph % (Auto) 18.4 L, Furnas % (Auto) 5.8, Eos % (Auto) 0.8, [...] associated with end-stage honeycomb fibrosis. [facility] Physical Exam Narrative Seen and examined Patient has mild lethargic but wake up. Shortness of breath mild chest congestion. Diagnosed with a right suprahilar lung cancer, exact sampler/tissuetype unclear. Follows [place] oncologist, await path . Because of transportation [...] Patient is a 74-year-old male who presented [facility] ED on 05/11/2025 with worsening fatigue, weakness and confusion. 1. Large right-sided lung cancer with suspected postobstructive pneumonia ? Admit under inpatient status to PCU. Patient with known history of large right-sided lung cancer. Chest x-ray on admit with concern for acute postobstructive pneumonia in setting of lung cancer. Stable on room air at rest. Patient has established oncologist Dr. Lake, [facility]. I myself tried to contact through the transfer line 2 times but unsuccessful. Discussed with the case management associate. [place] oncologist wanted CT head before transfer. In [...] As plan is for transfer to the [place], will hold on GI consult for now. [...] code, verified Expected disposition: Likely transfer to [place] Total time of the visit including total time spent in counseling or coordinationof care, (more than 50% of the total time, spent in obtaining medical information from nurses and other ancillary care providers ,explaining to the patient about labs, imaging, diagnosis and management of active complex medical conditions), effort to transfer [facility], discussion with case management associate, review of labs and imaging is 35 [...] 278 H Charges/Coding Visit Charges Inpatient E&M: 67185 Subs Hosp L3 05/12/25 1722 <Electronically signed by Anthony Salgado MD> Cosigner Signature (if applicable): CC: ~ Signed [facility] Work Phone: 1(733) 847-345706-18-2025 Radiology Diagnostic study note [facility] Imaging Services [address] [place], [place] [address] Brain/Head W/WO Contrast MR#: [id number] Acct: [id number] Name: ITZEL ALONZO Rep #: [id number] : 1950 M 74 From: Estella Coley MD PCP: Carlene Haji WILDLIFE TECHNICIANOnurC Status: ADM IN Study:Brain/Head W/WO Contrast Date of Exam: 05/12/25 Exam# [id number] Ordering Dr: Venessa Salgado MD PROCEDURE: BRAIN/HEAD [...] iterative reconstruction technique). RADIATION DOSE SUMMARY: DLP: 2868 mGycm COMPARISON: 05/04/2025 FINDINGS: No abnormal enhancing [...] mass. No acute intracranial process. Reading Location: [id number] CC: SID Haji; Dr. Anthony Salgado MD ~ Drier Operator Head: Signed [facility]06-18-2025 Progress note [facility] Medical Records Department [address] [place] [address] Progress Note - Hospitalist 05/12/25 0935 MR#: [id number] Acct: [id number] Name: ITZEL ALONZO Rep #:[id number] : 1950 74 From: Anhtony Kiser PCP: SID Haro Status:ADM IN [facility] Reason for Visit Reason for Visit: [...] 74.3 H, Lymph % (Auto) 18.4 L, Furnas % (Auto) 5.8, Eos % (Auto) 0.8, [...] associated with end-stage honeycomb fibrosis. [facility] Physical Exam Narrative Seen and examined Patient [...] Patient is a 74-year-old male who presented [facility] ED on 05/11/2025 with worsening fatigue, weakness and confusion. 1. Large right-sided lung cancer with suspected postobstructive pneumonia ? Admit under inpatient status to PCU. Patient with known history of large right-sided lung cancer.Chest x-ray on admit with concern for acute postobstructive pneumonia in setting of lung cancer. Stable on room air at rest. Patient has established oncologist Dr. Lake, [facility]. I myself tried to contact through the transfer line 2 times but unsuccessful. Discussed with the case management associate. [facility] oncologist wanted CT head before transfer. In [...] As plan is for transfer to the [facility], will hold on GI consult for now. [...] code, verified Expected disposition: Likely transfer to [facility] Total time of the visit including total time spent in counseling or coordinationof care, (more than50% of the total time, spent in obtaining medical information from nurses and other ancillary care providers ,explaining to the patient about labs, imaging, diagnosis and management of active complexmedical conditions), effort to transfer [facility], discussion with case management associate, review of labs and imaging is 35 [...] 278 H Charges/Coding Visit Charges Inpatient E&M: 64420 Subs Hosp L3 05/12/25 1722 Cosigner Signature (if applicable): CC: ~ Signed [facility]06-18-2025 History and physical note Author Lane chandler [facility] Note Date/Time May 12, 2025 12:4 6am [facility] Medical Records Department [address] [place] [address] H&P Exam - Hospitalist 05/11/259 MR#: [id number] Acct: [id number] Name: ITZEL ALONZO Rep #:[id number] : 1950 74 From: Lane dunn DO PCP: SID Haro Status:ADM IN Location: [facility] [id number] HPI - General General Date of Admission: 05/11/25 Date of Service: 05/11/25 Chief Complaint: Worsening fatigue, weakness and confusion HPI Narrative ITZEL ALONZO, is a 74 M who presented to [facility] ED on 05/11/2025 with worsening fatigue, weakness and confusion. Patient has been seenin our ED recently but he receives his care through the [facility]. He was diagnosed with right- sided lung cancer about 1 year ago. It appears this diagnosis was confirmed on bronchial biopsy. Patient declined active treatment at that time and preferred close monitoring. However, patient has issues with transportationand has had difficulty getting to his appointments with oncology at the [facility]. He lives at home with his significant [...] phone with the transfer nurse with the [facility] briefly rex. Nurse noted that transfer could be initiated there but as the admitting physician was gone for the day, transfer will not happen until tomorrow at the earliest. [facility] Medical History (Updated 05/12/25 @ 00:00 [...] budesonide-formoterol HFA 80 2 puff inhalation BID UNPAID INTERN D 05/09/21 Unknown History mcg-4.5 mcg/actuation aerosol [...] 74.3 H, Lymph % (Auto) 18.4 L, Furnas % (Auto) 5.8, Eos % (Auto) 0.8, [...] associated with end-stage honeycomb fibrosis. [facility] Assessment & Plan Assessment/Plan (1) Lung cancer: (2) Hypercalcemia: (3) Acute on chronic anemia: PLAN: Plan Patient is a 74-year-old male who presented [facility] ED on 05/11/2025 with worsening fatigue, weakness [...] Patient has established with oncology at the [facility]. Has deferred treatment for the lung cancer up to this point. Discussed with patient and family extensively in the ED and noted to them that unfortunately his condition will continue to worsen without active chemotherapy or radiation therapy for this lung cancer. Patient was scheduled to follow-up with oncology at the [facility] next week. Transfer has been initiated to the [facility]. 2. Acute metabolic encephalopathy suspected secondary to [...] As plan is for transfer to the [facility], will hold on GI consult for now. [...] code, verified Expected disposition: Likely transfer to [facility] Total clinical time spent by myself addressing the patient's medical issues, reviewing all the data, and collaborating with patient's care team: 75 minutes. Charges/Coding Visit Charges Inpatient E&M: 19855 Init Hosp L3 05/12/25 0046 <Electronically signed by Lane Stanley DO> Cosigner Signature (if applicable): CC: SID Haji; Dr. Lane Stanley DO~ Signed [facility] Work Phone: 1(989) 288-571306-18-2025 History and physical note [facility] Medical Records Department [address] [place] [address] H&P Exam - Hospitalist 05/11/25 191 MR#: [id number] Acct: [id number] Name: ITZEL ALONZO Rep #:[id number] : 1950 74 From: Lane dunn DO PCP: SID Haro Status:ADM IN Location: [place] [id number] HPI - General General Date of Admission: 05/11/25 Date of Service: 05/11/25 Chief Complaint: Worsening fatigue, weakness and confusion HPI Narrative ITZEL ALONZO, is a 74 M who presented to [facility] ED on 05/11/2025 with worsening fatigue, weakness [...] getting tohis appointments with oncology at the [facility]. He lives at home with his significant [...] phone with the transfer nurse with the [facility] briefly rex. Nurse noted that transfer could be initiated there but as the admitting physician was gone for the day, transfer will not happen until tomorrow at the earliest. [facility] Medical History (Updated 05/12/25 @ 00:00 [...] budesonide-formoterol HFA 80 2 puff inhalation BID UNPAID INTERN D 05/09/21 Unknown History mcg-4.5 mcg/actuation aerosol [...] 74.3 H, Lymph % (Auto) 18.4 L, Furnas % (Auto) 5.8, Eos % (Auto) 0.8, [...] associated with end-stage honeycomb fibrosis. Reading [facility] Assessment & Plan Assessment/Plan (1) Lung cancer: (2) Hypercalcemia: (3) Acute on chronic anemia: PLAN: Plan Patient is a 74-year-old male who presented [facility] ED on 05/11/2025 with worsening fatigue, weakness [...] Patient has established with oncology at the [facility]. Has deferred treatment for the lung cancerup to this point. Discussed with patient and family extensively in the ED and noted to them that unfortunately his condition will continue to worsen without active chemotherapy or radiation therapy for this lung cancer. Patient was scheduled to follow-up with oncology at the [facility] next week. Transfer h as been initiated to the [facility]. 2. Acute metabolic encephalopathy suspected secondary to [...] As plan is for transfer to the [facility], will hold on GI consult for now. [...] code, verified Expected disposition: Likely transfer to [facility] Total clinical time spent by myself addressing the patient's medical issues, reviewing all the data, and collaborating with patient's care team: 75 minutes. Charges/Coding Visit Charges Inpatient E&M: 81135 Init Hosp L3 05/12/25 0046 Cosigner Signature (if applicable): CC: WILDLIFE TECHNICIANNissa Haji; Dr. Lane Stanley, DO~ Signed [facility]06-18-2025 Consult note Author Clarke Montesinos [facility] Note Date/Time May 11, 2025 10:3 8pm [facility] Medical Records Department [address] [place] [address] Pharmacokinetic/Renal -Consult 05/11/252236 MR#: [id number] Acct: [id number] Name: CHERIITZEL A Rep #:[id number] : 1950 74 From: Clarke Bailon od PCP: SID Haro Status:ADM IN Y Location: [place] [address] Consult Antibiotic Management Pharmacy has been consulted [...] Signature (if applicable): Date CC: ~ Signed [facility] Work Phone: 1(567) 308-143006-17-2025 Discharge summary Author Monty Clarke [facility] Note Date/Time May 11, 2025 9:07 pm [facility] Medical Records Department [address] [place] [address] Emergency Department Summary 05/11/25 MR#: [id number] Acct: [id number] Name: ITZEL ALONZO Rep #:[id number] : 1950 74 From: oMnty Clarke MD PCP: Carlene Haji, WILDLIFE TECHNICIANOnurC Status:ADM IN Location: [place] [address]- [address] Monty Clarke MD on 05/11/25 at 2107 EKG was obtained 1709 interpreted by ma at 1711. The EKG is normal. Rate is 91. AK interval, QRS duration, QT duration and axis are all normal. 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 [...] Prior similar symptoms: No [facility] Medical History (Updated 05/11/25 @ 18:41 [...] budesonide-formoterol HFA 80 2 puff inhalation BID UNPAID INTERN D 05/09/21 Unknown History mcg-4.5 mcg/actuation aerosol [...] 74.3 H Lymph % (Auto) 18.4 L Furnas % (Auto) 5.8 Eos % (Auto) 0.8 [...] associated with end-stage honeycomb fibrosis. Reading Location: [facility] EKG Initial EKG: Attestation: I personally reviewed and interpreted this EKG as follows: Interpretation: Sinus Rhythm (Sinus rhythm rate of 91. Normal EKG. AK interval 150 ms Rickers duration 90 ms. QT duration 3096 ms. [place] is normal. EKG is unchanged from prior. ) Prior: Changed (September 14, 2021) Management Discussion w/another healthcare provider: Hospitalist (Dr. Stanley requested Icontact Dr. Robertson to make sure it is okay for me to admit this patient to [facility]) Additional Tests and Interventions Additional Tests [...] Dr. Robertson. Patient ethan full admit to [facility]. Have not heard back from the [facility] as of 1840 Critical Care Time Critical Care Time: Yes Critical care time (excluding procedures): 30-74 minutes (31), Including time spent: (History, physical, documentation, independent rotation of laboratory results and x-ray and initiation of treatment for obstructive pneumonia and abnormal EKG with elevated troponin), Discussing w/Patient &/or Family/Machinist Mate, Discussing w/Consultants and Arranging Admission or Transfer Discharge Plan Dx/Rx/DC Orders Clinical Impression: Obstructive pneumonia, Microcytic anemia, Acute on chronic anemia, Exertional dyspnea, Elevated troponin, Sinus tachycardia seen on information technology advisor, Hypercalcemia, Lung cancer Disposition Disposition: Acute Care Hospital [facility] What to do if you have Problems For any increased pain, shortness of breath, bleeding, nausea or vomiting, chestpain, or any unexpected problems, contact your Primary Care Provider. Call [facility] ([phone]) or report to the closest Emergency Room. Call 911 if necessary. 05/11/251840 <Electronically signed by Monty Clarke MD> Cosigner Signature (if applicable): CC: WILDLIFE TECHNICIANOnurC Carlene Haji ~ Signed [facility] Work Phone: 1(537) 504-213706-17-2025 Consult note [facility] Medical Records Department [address] [place] [address] Pharmacokinetic/Renal -Consult 05/11/252236 MR#: [id number] Acct: [id number] Name: CHERIITZEL A Rep #:[id number] : 1950 74 From: Clarke Bailon od PCP: SID Haro Status:ADM IN Y Location: [place] [address] Consult Antibiotic Management Pharmacy has been consulted [...] Signature (if applicable): Date CC: ~ Signed [facility]06-17-2025 Evaluation note* Diagnosis Onset Date Resolution Status Admit Date Elevated troponin acute May 112024 7:20pm Exertional dyspnea acute April 252024 7:20pm Hypercalcemia acute May 11, 2025 7:20pm Lung cancer acute May 11 7:20pm Microcytic anemia acute May 112024 7:20pm Obstructive pneumonia acute Jamey 2024 7:20pm Sinus tachycardia seen on information technology advisor acute May 11, 2025 7:20pm Acute on chronic anemia chronic J [facility] 2024 7:20pm [facility] Work Phone: 1(795) 289-613406-17-2025 Evaluation note* Diagnosis Onset Date Resolution Status Admit Date Elevated troponin acute May 112024 7:20pm Exertional dyspnea acute April 252024 7:20pm Hypercalcemia acute May 11, 2025 7:20pm Lung cancer acute May 11 7:20pm Microcytic anemia acute May 112024 7:20pm Obstructive pneumonia acute Apr 7:20pm Sinus tachycardia seen on ca rdiac monitor acute May 11, 2025 7:20pm Acute on chronic anemia chronic J [facility] 2024 7:20pm Closed intertrochanteric fra cture of right hip acute July 03, 2025 10:54pm Fall acute July 03 10:54pm [facility] Work Phone: 1(654) 272-467706-17-2025 Evaluation note* Diagnosis Onset Date Resolution Status Admit Date Elevated troponin acute May 112024 7:20pm Exertional dyspnea acute April 252024 7:20pm Hypercalcemia acute May 11, 2025 7:20pm Lung cancer acute May 11 7:20pm Microcytic anemia acute May 112024 7:20pm Obstructive pneumonia acute Apr 7:20pm Sinus tachycardia seen on ca rdiac monitor acute May 11, 2025 7:20pm Acute on chronic anemia chronic J [facility] 2024 7:20pm Closed intertrochanteric fra cture of right hip inactive July 03, 2025 10:54pm Fall inactive July 03 10:54pm [facility] Work Phone: 1(158) 905-610406-17-2025 Discharge summary [facility] Medical Records Department [address] [place] [address] Emergency Department Summary 05/11/25 MR#: [id number] Acct: [id number] Name: ITZEL ALONZO Rep #:[id number] : 1950 74 From: Monty Clarke MD PCP: Carlene Haji, WILDLIFE TECHNICIAN-C Status:ADM IN Location: [facility] [id number] Monty Clarke MD on 05/11/25 at 2107 EKG was obtained 1709 interpreted by me at 1711. The EKG is normal. Rate is 91. AK interval, QRS duration, QT duration and axis are all normal. 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 [...] Prior similar symptoms: No Recent Illness/Hospitalization: Yes [facility] Medical History (Updated 05/11/25 @ 18:41 by [...] budesonide-formoterol HFA 80 2 puff inhalation BID UNPAID INTERN D 05/09/21 Unknown History mcg-4.5 mcg/actuation aerosol [...] 74.3 H Lymph % (Auto) 18.4 L Furnas % (Auto) 5.8 Eos % (Auto) 0.8 [...] associated with end-stage honeycomb fibrosis. Reading [facility] EKG Initial EKG: Attestation: I personally reviewed and interpreted this EKG as follows: Interpretation: Sinus Rhythm (Sinus rhythm rate of 91. Normal EKG. AK interval 150 ms Rickers duration 90 ms. QT duration 3096 ms. [place] is normal. EKG is unchanged from prior. ) Prior: Changed (September 14, 2021) Management Discussion w/another healthcare provider: Hospitalist (Dr. Stanley requested Icontact Dr. Robertson to make sure it is okay for me to admit this patient to [facility]) Additional Tests and Interventions Additional Tests [...] he did speak with Dr. Robertson. Patient etahn full admit to PCU.Have not heard back from the [facility] as of 1840 Critical Care Time Critical Care Time: Yes Critical care time (excluding procedures): 30-74 minutes (31), Including time spent: (History, physical, documentation, independent rotation of laboratory results and x-ray and initiation of treatment for obstructive pneumonia and abnormal EKG with elevated troponin), Discussing w/Patient &/or Family/Machinist Mate, Discussing w/Consultants and Arranging Admission or Transfer Discharge Plan Dx/Rx/DC Orders Clinical Impression: Obstructive pneumonia, Microcytic anemia, Acute on chronic anemia, Exertional dyspnea, Elevated troponin, Sinus tachycardia seen on information technology advisor, Hypercalcemia, Lung cancer Disposition Disposition: Acute Care Hospital [facility] What to do if you have Problems For any increased pain, shortness of breath, bleeding, nausea or vomiting, chestpain, or any unexpected problems, contact your Primary Care Provider. Call [facility] ([phone]) or report tothe closest Emergency Room. Call 911 if necessary. 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 [...] Prior similar symptoms: No Recent Illness/Hospitalization: Yes [facility] Medical History (Updated 05/11/25 @ 18:41 by [...] budesonide-formoterol HFA 80 2 puff inhalation BID UNPAID INTERN D 05/09/21 Unknown History mcg-4.5 mcg/actuation aerosol [...] 74.3 H Lymph % (Auto) 18.4 L Furnas % (Auto) 5.8 Eos % (Auto) 0.8 [...] associated with end-stage honeycomb fibrosis. Reading [facility] EKG Initial EKG: Attestation: I personally reviewed and interpreted this EKG as follows: Interpretation: Sinus Rhythm (Sinus rhythm rate of 91. Normal EKG. AK interval 150 ms Rickers duration 90 ms. QT duration 3096 ms. [place] is normal. EKG is unchanged from prior. ) Prior: Changed (September 14, 2021) Management Discussion w/another healthcare provider: Hospitalist (Dr. Stanley requested Icontact Dr. Robertson to make sure it is okay for me to admit this patient to [facility]) Additional Tests and Interventions Additional Tests [...] EKG with elevated troponin), Discussing w/Patient &/or Family/Machinist Mate, Discussing w/Consultants and Arranging Admission or Transfer Discharge Plan Dx/Rx/DC Orders Clinical Impression: Obstructive pneumonia, Microcytic anemia, Acute on chronic anemia, Exertional dyspnea, Elevated troponin, Sinus tachycardia seen on information technology advisor, Hypercalcemia, Lung cancer Disposition Disposition: Acute Care Hospital [facility] What to do if you have Problems For any increased pain, shortness of breath, bleeding, nausea or vomiting, chestpain, or any unexpected problems, contact your Primary Care Provider. Call [facility] ([phone]) or report tothe closest Emergency Room. Call 911 if necessary. 05/11/251840 Cosigner Signature (if applicable): CC: WILDLIFE TECHNICIAN-C Carlene Haji ~ Signed [facility]06-17-2025 Radiology Diagnostic study note [facility] Imaging Services [address] [place] [address] Chest PA and Lateral MR#: [id number] Acct: [id number] Name: ITZEL ALONZO Rep #: [id number] : 1950 M 74 From: Pet er Peer DO PCP: SID Haro Status: REG ER Study:Chest PA and Lateral Date of Exam: 05/11/25 Exam# [id number] Ordering Dr: Karin Clarke MD PROCEDURE: CHEST [...] associated with end-stage honeycomb fibrosis. Reading [facility] CC: WILDLIFE TECHNICIAN-C Carlene Haji; Dr. 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 He endorses fatigue, generalized weakness. He has poor appetite. He does admit to change in urination. States he was seenapproximately 3 weeks ago due to a fall. After reviewing records he was seen onthe of this month for fall. He was [...] Prior similar symptoms: No Recent Illness/Hospitalization: Yes [facility] Medical History (Updated 05/11/25 @ 18:41 by [...] budesonide-formoterol HFA 80 2 puff inhalation BID UNPAID INTERN D 05/09/21 Unknown History mcg-4.5 mcg/actuation aerosol [...] 74.3 H Lymph % (Auto) 18.4 L Furnas % (Auto) 5.8 Eos % (Auto) 0.8 [...] associated with end-stage honeycomb fibrosis. Reading Location: [facility] EKG Initial EKG: Attestation: I personally reviewed and interpreted this EKG as follows: Interpretation: Sinus Rhythm (Sinus rhythm rate of 91. Normal EKG. AK interval 150 ms Rickers duration 90 ms. QT duration 3096 ms. [place] is normal. EKG is unchanged from prior. ) Prior: Changed (September 14, 2021) Management Discussion w/another healthcare provider: Hospitalist (Dr. Stanley requested Icontact Dr. Robertson to make sure it is okay for me to admit this patient to [facility]) Additional Tests and Interventions Additional Tests [...] EKG with elevated troponin), Discussing w/Patient &/or Family/Machinist Mate, Discussing w/Consultants and Arranging Admission or Transfer Discharge Plan Dx/Rx/DC Orders Clinical Impression: Obstructive pneumonia, Microcytic anemia, Acute on chronic anemia, Exertional dyspnea, Elevated troponin, Sinus tachycardia seen on information technology advisor, Hypercalcemia, Lung cancer Disposition Disposition: Acute Care Hospital [facility] What to do if you have Problems For any increased pain, shortness of breath, bleeding, nausea or vomiting, chestpain, or any unexpected problems, contact your Primary Care Provider. Call [facility] ([phone]) or report to the closest Emergency Room. Call 911 if necessary. 05/11/25 184 <Electronically signed by Monty Clarke MD> Cosigner Signature (if applicable): CC: WILDLIFE TECHNICIAN-C Carlene Haji ~ Signed [facility] Work Phone: 1(637) 670-882606-17-2025 Evaluation note* Diagnosis Onset Date Resolution Status Admit Date Elevated troponin acute May 112024 7:20pm Exertional dyspnea acute April 252024 7:20pm Hypercalcemia acute May 11, 2025 7:20pm Microcytic anemia acute May 112024 7:20pm Obstructive pneumonia acute Jamey e 2024 7:20pm Sinus tachycardia seen on information technology advisor acute May 11, 2025 7:20pm Acute on chronic anemia chronic J une 2024 7:20pm [facility] Work Phone: 1(144) 233-222506-10-2025 Radiology Diagnostic study note [facility] Imaging Services [address], [place] [address] Brain/Head without Contrast MR#: [id number] Acct: [id number] Name: ITZEL ALONZO Rep #: [id number] : 1950 M 74 From: Bert Sloan MD PCP: Carlene Haji, SID Status: REG ER Study:Brain/Head without Contrast Date of Exa m: 05/04/25 Exam# [id number] Ordering Dr: Ike Dawson DO PROCEDURE: BRAIN/HEAD [...] or other acute process noted. Reading Location: [address] CC: WILDLIFE TECHNICIAN-C Carlene Haji; Dr. Ike Dawson DO ~ Drier Operator Head: Signed [facility]06-10-2025 Radiology Diagnostic study note [facility] Imaging Services [address] [place], [place] [id number] Spine Cervical without Contras MR#: [id number] Acct: [id number] Name: ITZEL ALONZO Rep #: [id number] : 1950 M 74 From: Juan Miguel Santos MD PCP: Carlene Haji, WILDLIFE TECHNICIAN-C Status: REG ER Study:Spine Cervical without Contras Date of Exam: 05/04/25 Exam# [id number] Ordering Dr: Ike Dawson DO PROCEDURE: SPINE [...] Right upper lobe pulmonary mass. Reading Location: [facility] CC: WILDLIFE TECHNICIANOnurC Carlene Haji; Dr. Ike Dawson DO ~ Drier Operator Head: Signed [facility]06-10-2025 Radiology Diagnostic study note [facility] Imaging Services [address], [place] [id number] Chest without Contrast MR#: [id number] Acct: [id number] Name: ITZEL ALONZO Rep #: [id number] : 1950 M 74 From: Juan Miguel Santos MD PCP: SID Haro Status: REG ER Study:Chest without Contrast Date of Exam: 05/04/25 Exam# [id number] Ordering Dr: Ike Dawson DO PROCEDURE: CHEST [...] at the right lung base. Reading Location: [place] [address] CC: SID Haji; Dr. Ike Dawson DO ~ Drier Operator Head: Signed [facility]06-10-2025 Radiology Diagnostic study note [facility] Imaging Services [address] [place] [address] Shoulder min 2 Views MR#: [id number] Acct: [id number] Name: ITZEL ALONZO Rep #: [id number] : 1950 M 74 From: Juan Miguel Santos MD PCP: SID Haro Status: REG ER Study:Shoulder min 2 Views Date of Exam: 05/04/25 Exam# [id number] Ordering Dr: Ike Dawson DO PROCEDURE: SHOULDER [...] Correlation witha CT scan recommended. Reading Location: [facility] [facility] CC: SID Haji; Dr. Ike Dawson DO ~ Drier Operator Head: Signed [facility]05-30-2025 Radiology Diagnostic study note [facility] Imaging Services [address] [place], [place] [id number] STROKE CTA Head AND Neck W/Con MR#: [id number] Acct: [id number] Name: ITZEL ALONZO Rep #: [id number] : 1950 M 74 From: Oswald Perez MD PCP: Carlene Haji, WILDLIFE TECHNICIAN-C Status: REG ER Study:STROKE CTA Head AND Neck W/Con Date of Exam: 04/23/25 Exam# [id number] Ordering Dr: Steven Tejeda DO PROCEDURE: STROKE [...] occluded similar to the prior CTA. Anatomy: [place] anatomy is normal. Aneurysm or [...] apical mass suspicious for malignancy. Reading Location: [id number] CC: SID Haji; Dr. Steven Tejeda DO ~ Drier Operator Head: Signed [facility]05-30-2025 Radiology Diagnostic study note [facility] Imaging Services [address] [place] [id number] Chest 1 View (Portable) MR#: [id number] Acct: [id number] Name: ITZEL ALONZO Rep #: [id number] : 1950 M 74 From: Oswald Perez MD PCP: Carlene Haji, WILDLIFE TECHNICIAN-C Status: REG ER Study:Chest 1 View (Portable) Date of Exam: 04/23/25 Exam# [id number] Ordering Dr: Steven Tejeda DO PROCEDURE: CHEST [...] regions which may represent adenopathy. Reading Location: [id number] CC: SID Haji; Dr. Steven Tejeda DO ~ Drier Operator Head: Signed [facility]05-30-2025 Radiology Diagnostic study note [facility] Imaging Services [address] [facility] [facility] [place] [address] STROKE Brain/Head without Cont MR#: [id number] Acct: [id number] Name: ITZEL ALONZO Rep #: [id number] : 1950 M 74 From: Oswald Perez MD PCP: Carlene Haji, WILDLIFE TECHNICIAN-C Status: REG ER Study:STROKE Brain/Head without Cont Date of Exam: 04/23/25 Exam# [id number] Ordering Dr: Steven Tejeda DO PROCEDURE: STROKE [...] atrophy and chronic microvascular ischemia. Reading Location: [id number] CC: SID Haji; Dr. Steven Tejeda, ~ Drier Operator Head: [facility] Author Anthony Salgado [facility] Note Date/Time May 13, 2025 2:00 pm [facility] Medical Records Department [address] [place] [address] Discharge Summary 05/13/25 1257 MR#: [id number] Acct: [id number] Name: CHERIITZEL A Rep #:[id number] : 1950 74 From: Anthony Kiser PCP: SID Haro Status:ADM IN Location: [facility] [id number] Providers Date of Admission: 05/11/25 Primary [...] Patient is a 74-year-old male who presented [facility] ED on 05/11/2025 with worsening fatigue, weakness and confusion. 1. Large right-sided lung cancer with suspected postobstructive pneumonia ? Admit under inpatient status to PCU. Patient with known history of large right-sided lung cancer. Chest x-ray on admit with concern for acute postobstructive pneumonia in setting of lung cancer. Stable on room air at rest. Patient has established oncologist Dr. Lake, [facility]. I myself tried to contact through the transfer line 2 times but unsuccessful. Discussed with the case management associate. [place] oncologist wanted CT head before transfer. In [...] As plan is for transfer to the [facility], will hold on GI consult for now. [...] code, verified Expected disposition: Likely transfer to [facility] Patient is being transferred to [facility] for further care and decision makingregarding [...] lung cancer, exact sampler/tissue type unclear. Follows [place] oncologist, await path . Because of transportation [...] 75.7 H, Lymph % (Auto) 16.4 L, Furnas % (Auto) 6.5, Eos % (Auto) 0.9, [...] intracranial process. Reading Location: [facility] D/C Instructions DC O2, CPAP, BIPAP Needs [...] (Reason: constipation) Referrals / Follow Up: Carlene aHji NP-C [Primary Care Provider] - Disposition Discharge Orders: Discharge Patient (Routine); Ordered 05/12/25 Ordered By: Dr. Anthony Salgado Charges/Coding Visit Charges Inpatient E&M: 34321 Disch Hosp >30min 05/13/25 1400 <Electronically signed by Anthony Salgado MD> Cosigner Signature (if applicable): CC: LUIS MIGUELC Carlene Haji; Dr. Anthony Salgado MD~ Signed [facility] Work Phone: Evaluation noteNo assessment information available [facility] Work Phone: History and physical note Author Johanne Evans [facility] Note Date/Time July 03, 2025 11: 21pm [facility] Medical Records Department [address] [place] [address] H&P Exam - Hospitalist 07/03/252236 MR#: [id number] Acct: [id number] Name: ITZEL ALONZO Rep #:[id number] : 1950 75 From: Johanne Evans MD PCP: SID Haro Status:ADM IN Location: [facility] [id number] HPI - General General Date of Admission: [...] COPD, [facility]25 following largeright-sided lung cancer wit suspected postobstructive pneumonia with acute metabolic encephalopathy suspected secondary to hypercalcemia of malignancy in addition to acute on chronic anemia with suspected upper GI bleed for further evaluation who now presents to the [facility] ED on 07/03/2025 with onset of right [...] osseous lesion would plan to admit to [facility] and evaluate for repair of hip fracture. [facility] Medical History (Updated 07/03/25 @ 23:18 [...] budesonide-formoterol HFA 80 2 puff inhalation BID UNPAID INTERN D 05/09/21 Unknown History mcg-4.5 mcg/actuation aerosol [...] Clarity Clear, Urine pH 6.0, Ur Specific Howell 1.010, Urine Protein 100 H, Urine Glucose [...] 90.1 H, Lymph % (Auto) 6.3 L, Furnas % (Auto) 2.8, Eos % (Auto) 0.1, Baso % (Auto) 0.2, Absolute Neuts (auto) 11.4 H, Absolute Lymphs (auto) 0.80 L, Nucleated RBC % 0, PT 15.5 H, INR 1.2, APTT 22.7 L Imaging Radiology Impression Hip/Pelvis X-Ray 07/03/25 20:20 IMPRESSION: Fracture of the right greater trochanter, extending into the intertrochanteric line. Malignancy can not be excluded. Reading Location: [id number] Lower Extremity CT 07/03/25 21:54 IMPRESSION: Acute, moderately comminuted and impacted right intertrochanteric femoral fracture. No aggressive osseous lesions. Reading Location: [id number] Assessment & Plan Assessment/Plan (1) Closed intertrochanteric fracture of right hip: (2) Fall: PLAN: Plan The patient is a 75 y/o M w/ PMHx: CKD stage II per GFR trending, RLS, Cirrhosisassociated with hepatitis unclear specific type, Diabetes mellitus type II with chronic neuropathy, Anxiety and Depression, GERD, Hx CVA, Chronic anemia, Formertobacco use, COPD, recent transfer to the [facility] on 05/13/25 following largeright-sided lung cancer wit suspected postobstructive pneumonia with acute metabolic encephalopathy suspected secondary to hypercalcemia of malignancy in addition to acute on chronic anemia with suspected upper GI bleed for further evaluation who now presents to the [facility] ED on 07/03/2025 with onset of right [...] [facility]: [facility], from discussion [...] 16 minutes. Charges/Coding Visit Charges Inpatient E&M: 96079 Init Hosp L3 Procedures Hospitalists Procedures: 05878 Advncd Care Plan 30 Min 07/03/25 8291 <Electronically signed by Johanne Evans MD> Cosigner Signature (if applicable): CC: SID Haji; Dr. Johanne Evans MD~ Signed [facility] Work Phone: Hospital Discharge instructions Additional Instructions Your workup today indicates your dizziness is most likely from peripheral vertigo. Take the Valium as directed to help control any recurrent dizzy symptoms. Return to the ER should you have any further concerns. You may continue all of your other home medications as directed by your doctorWProtestant [facility] Work Phone: Hospital Discharge instructions Additional Instructions Your CT head neck chest along right shoulder x-ray negative for any fracture or bleed. You have a known right lung mass. Follow-up with your oncology team through the [facility] for discussion if you want future treatment. If you do not want treatment discussed with them palliative versus hospice care to help with overall plans of care with you. Use tramadol as needed for pain control.[facility] Work Phone: Hospital Discharge instructionsAdditional Instructions There [...] urinate then please come back to the ER.[facility] Work Phone: Hospital Discharge instructionsAdditional Instructions Your workup today reveals no sign of underlying trauma such as skull fracture or brain bleed or broken bones. You do have a urinary tract infection but there is no sign of sepsis from this. The patient's mental status will be altered secondary to the UTI as this is causing delirium. However as the infection clears over the next few days mental status will return to normal. If there are any further concerns or worsening of symptoms please return to the ER for repeat evaluation.[facility] Work Phone: Reason for referral (narrative)No reason for referral information availableWProtestant Deaconess Hospital Work Phone: Summary Purpose Family History No Family History Records Found Relationship Condition Age at Onset Recorded Date/T jennifer mother Cerebrovascular accident (CVA) Unknown Advance Directives No Advanced Directives Records Found Advance Directive Response Recorded Date/ Time Do you have a Healthcare Power of Social Services? No April 23, 2025 9:07pm Advance Directive Response Recorded Date/ Time Do you have a Healthcare Power of Social Services? No May 04, 2025 11:25am Do you have a Healthcare Power of Social Services? No April 23, 2025 9:07pm Advance Directive Response Recorded Date/ Time Do you have a Healthcare Power of Social Services? No May 04, 2025 11:25am Do you have a Healthcare Power of Social Services? No May 11, 2025 2:29pm Do you have a Healthcare Power of Social Services? No April 23, 2025 9:07pm Advance Directive Response Recorded Date/ Time Do you have a Healthcare Power of Social Services? No May 04, 2025 11:25am Do you have a Healthcare Power of Social Services? No May 11, 2025 8:16pm Do you have a Healthcare Power of Social Services? No April 23, 2025 9:07pm Advance Directive Response Recorded Date/ Time Do you have a Healthcare Power of Social Services? No May 04, 2025 11:25am Do you have a Healthcare Power of Social Services? No May 11, 2025 8:16pm Do you have a Healthcare Power of Social Services? No April 23, 2025 9:07pm Do you have a Healthcare Power of Social Services? No July 03, 2025 7:10pm Advance Directive Response Recorded Date/ Time Do you have a Healthcare Power of Social Services? No May 04, 2025 11:25am Do you have a Healthcare Power of Social Services? No May 11, 2025 8:16pm Do you have a Healthcare Power of Social Services? No April 23, 2025 9:07pm Do you have a Healthcare Power of Social Services? Yes July 04, 2025 12:20am Advance Directive Response Recorded Date/ Time Do you have a Healthcare Power of Social Services? No May 04, 2025 11:25am Do you have a Healthcare Power of Social Services? No May 11, 2025 8:16pm Do you have a Healthcare Power of Social Services? No April 23, 2025 9:07pm Do you have a Healthcare Power of Social Services? Yes July 04, 2025 12:20am Do you have a Healthcare Power of Social Services? Yes July 08, 2025 10:58am Advance Directive Response Recorded Date/ Time Do you have a Healthcare Power of Social Services? No May 04, 2025 11:25am Do you have a Healthcare Power of Social Services? No May 11, 2025 8:16pm Do you have a Healthcare Power of Social Services? No April 23, 2025 9:07pm Do you have a Healthcare Power of Social Services? Yes July 04, 2025 12:20am Do you have a Healthcare Power of Social Services? Yes July 08, 2025 10:58am Do you have a Healthcare Power of Social Services? No August 06, 2025 12:47am Chief Complaint and Reason for Visit Chief [...] 01pm gu July 08, 2025 10 :55am Chief Complaint Admit Date neuro symptoms April [...] 01pm gu July 08, 2025 10 :55am FALL August 06, 2025 12:45am Additional Source Comments (unrecognized sect ion and content) No Status Records FoundNo Status Records Found INFORMATION SOURCE (unrecogn ized section and content) DATE CREATED AUTHOR 05/10/[address] [facility] DATE CREATED AUTHOR AUTHOR'S OUMOU ATGERHARD 08/10/2025 [facility] Care Teams (unrecognized sec tion and content) Team Status: Active Member Role Status Dates Carlene Haji WILDLIFE TECHNICIAN-C Primary Care Provider Active Team Status: Inactive Member Role Status Dates Dr. Steven Tejeda DO Emergency Provider Active Start: April 23, 2025 End: April 24, 2025 Carlene Haji WILDLIFE TECHNICIAN-C Primary Care Provider Active Start: April 23, 2025 End: April 24, 2025 Team Status: Inactive Member Role Status Dates Dr. Steven Tejeda DO Attending Provider Active Start: April 23, 2025 End: April 24, 2025 Dr. Steven Tejeda DO Emergency Provider Active Start: April 23, 2025 End: April 24, 2025 Carlene Haji WILDLIFE TECHNICIAN-C Primary Care Provider Active Start: April 23, 2025 End: April 24, 2025 Team Status: Inactive Member Role Status Dates Carlene Haji WILDLIFE TECHNICIAN-C Primary Care Provider Active Start: May 04, 2025 End: May 04, 2025 Dr. Ike Dawson DO Emergency Provider Active Start : May 04, 2025 End: May 04, 2025 Team Status: Inactive Member Role Status Dates Carlene Haji WILDLIFE TECHNICIAN-C Primary Care Provider Active Start: May 04, 2025 End: May 04, 2025 Dr. Ike Dawson DO Attending Provider Active Start : May 04, 2025 End: May 04, 2025 Dr. Ike Dawson DO Emergency Provider Active Start : May 04, 2025 End: May 04, 2025 Team Status: Active Member Role Status Dates Carlene Haji WILDLIFE TECHNICIAN-C Primary Care Provider Active Start: May 11, 2025 Dr. Monty Clarke MD Emergency Provider Active Sta rt: May 11, 20[address]. [address] Stanley DO Admit Provider Active Start: May 11, 20[address]. [address] Stanley DO Attending Provider Active Start: May 11, 2025 Team Status: Inactive Member Role Status Dates Carlene N Adithya , WILDLIFE TECHNICIAN-C Primary Care Provider Active Start: May 11, [...] Member Role Status Dates Carlene Haji , WILDLIFE TECHNICIAN-C Primary Care Provider Active Start: May 12, [...] Member Role Status Dates Carlene Haji , WILDLIFE TECHNICIAN-C Primary Care Provider Active Start: May 13, [...] Member Role/Relationship Status Dates Carlene Haji , WILDLIFE TECHNICIAN-C Primary Care Provider Active Team Status: Inactive Member Role/Relationship Status Dates Dr. Steven Tejeda DO Attending Provider Active Start: April 23, 2025 End: April 24, 2025 Dr. Steven Tejeda DO Emergency Provider Active Start: April 23, 2025 End: April 24, 2025 Carlene Haji , WILDLIFE TECHNICIAN-C Primary Care Provider Active Start: April 23, 2025 End: April 24, 2025 Team Status: Inactive Member Role/Relationship Status Dates Carlene Haji , WILDLIFE TECHNICIAN-C Primary Care Provider Active Start: May 04, 2025 End: May 04, 2025 Dr. Ike Dawson DO Attending Provider Active Start : May 04, 2025 End: May 04, 2025 Dr. Ike Dawson DO Emergency Provider Active Start : May 04, 2025 End: May 04, 2025 Team Status: Inactive Member Role/Relationship Status Dates Carlene Haji , WILDLIFE TECHNICIAN-C Primary Care Provider Active Start: May 11, [...] Member Role/Relationship Status Dates Carlene Haji , WILDLIFE TECHNICIAN-C Primary Care Provider Active Start: May 12, [...] Member Role/Relationship Status Dates Carlene Haji , WILDLIFE TECHNICIAN-C Primary Care Provider Active Start: May 13, [...] Member Role/Relationship Status Dates Carlene Haji , WILDLIFE TECHNICIAN-C Primary Care Provider Active Start: July 03, 2025 Dr. Steven Tejeda DO Emergency Provider Active Start: July 03, 2025 Dr. Johanne Evans MD Admit Provider Active St art: July 03, 2025 Dr. Johanne Evans MD Attending Provider Active Start: July 03, 2025 Dr. Johanne Evans MD Other Provider Active St art: July 03, 2025 Team Status: Inactive Member Role/Relationship Status Dates Carlene Haji WILDLIFE TECHNICIAN-C Primary Care Provider Active Start: July 03, [...] Active Member Role/Relationship Status Dates Carlene Haji WILDLIFE TECHNICIAN-C Primary Care Provider Active Start: July 04, [...] Member Role/Relationship Status Dates Carlene Haji , WILDLIFE TECHNICIAN-C Primary Care Provider Active Start: July 05, [...] Active Member Role/Relationship Status Dates Carlene Haji WILDLIFE TECHNICIAN-C Primary Care Provider Active Start: July 06, [...] Active Member Role/Relationship Status Dates Carlene Haji WILDLIFE TECHNICIAN-C Primary Care Provider Active Start: July 07, [...] Inactive Member Role/Relationship Status Dates Carlene Haji WILDLIFE TECHNICIAN-C Primary Care Provider Active Start: July 08, 2025 End: July 08, 2025 Dr. Monty Clarke MD Emergency Provider Active Sta rt: July 08, 2025 End: July 08, 2025 Team Status: Active Member Role/Relationship Status Dates Dr. Hubert Hagen MD Primary Care Provider Active Team Status: Inactive Member Role/Relationship Status Dates SID Haro Primary Care Provider Active Start: July 08, 2025 End: July 08, 2025 Dr. Monty Clarke MD Attending Provider Active Sta rt: July 08, 2025 End: July 08, 2025 Dr. Monty Clarke MD Emergency Provider Active Sta rt: July 08, 2025 End: July 08, 2025 Team Status: Inactive Member Role/Relationship Status Dates Dr. Tej Amado DO Emergency Provider Active Start: August 06, 2025 End: August 06, 2025 Dr. Hubert Hagen MD Primary Care Provider Active Start: August 06, 2025 End: August 06, 2025 Goals (unrecognized section and content) Goals [...] BE BASED ON THE PRIMARY CLINICAL RECORDS. [facility]. provides no warranty or guarantee of the accuracy or completeness of information in this document.
--- NOTE | 2025-08-15 20:38 | RAD_ITS ---
PROCEDURE: CHEST 1 VIEW (PORTABLE) 08/15/2025 REASON FOR EXAM: COUGH, TACHYPNEA, RALES, FEVER TECHNIQUE: Frontal view of the chest. COMPARISON: Chest x-ray May 11, 2025. FINDINGS: Lungs: There is dense right paramediastinal and perihilar opacity measuring approximately 11 cm in diameter opacifying the right upper lung field. This appears slightly less prominent than on the prior exam. Differential however remains unchanged with malignancy/mass most likely, however clinical correlation and CT with contrast for confirmation if not already done is advised. Improvement may be due to improving postobstructive atelectasis or pneumonia. The right hemidiaphragm is elevated compared to the left, similar to the prior exam. Lung volumes are low, particularly the right. Diffusely elevated interstitial lung markings are noted with areas of mild confluence, similar to the prior exam which may be secondary to chronic pulmonary parenchymal fibrosis and/or interstitial pneumonitis. Clinical correlation and radiographic follow-up to confirm resolution. Pleura: No significant pleural effusion seen. There is no evidence of pneumothorax. Mediastinum: There is mediastinal widening unchanged. Heart: The cardiac silhouette is not enlarged. Vascular: Tortuous or dilated thoracic aorta, unchanged. Osseous: No acute fracture is seen. RAD/Chest 1 View (Portable) IMPRESSION: Right perihilar mass and opacification slightly improved from the prior study. - Findings and recommendations discussed above. Reading Location: [id number]
--- NOTE | 2025-08-15 20:38 | EKG12_ITS ---
Test Reason : DYSRHYTHMIA Blood Pressure : */* mmHG Vent. Rate : 135 BPM Atrial Rate : 135 BPM P-R Int : 218 ms QRS Dur : 70 ms QT Int : 276 ms P-R-T Axes : 72 74 68 degrees QTcB Int : 414 ms Sinus tachycardia with 1st degree A-V block with Premature ventricular complexes or Fusion complexes ST & T wave abnormality, consider lateral ischemia Abnormal ECG Confirmed by CHELSEA HERBERT, FARAZ ([id number]), field map editor JOSE NYE ([id number]) on 08/16/2025 8:00:13 AM Referred By: [facility]G Confirmed By: FARAZ TRAN MD
--- NOTE | 2025-08-15 20:39 | EX.ED.DYSGE1 ---
HPI History of Present Illness Chief Complaint: Fever Detail of Chief Complaint: Fever, cough, shortness of breath, discomfort with urination Informant: patient and spouse/S.O. Onset/Context/Timing Onset: Today (According to significant other half-way was aware today.) Context: Sudden Onset Timing: Continuous Quality: Fever, rapid heart rate, rapid breathing Location: Multiple Current Severity: Severe Maximum Severity: Severe Worsened by: Patient has SIRS need to determine source. Relieved by: Nothing Associated Symptoms Associated Symptoms: Nausea, decreased appetite Narrative Narrative: Patient is a 75-year-old male. He was seen earlier this month per significant other. Reviewing records indicates he was in the hospital mid June for a intertrochanteric fracture of the right hip. He has been at [place] for rehab. Apparently he is not doing well. Review of prior records also indicate he has history of obstructive pneumonia due to lung cancer. History is limited. Patient acknowledges that he is short of breath. He acknowledges he has a cough. The cough is nonproductive. He does complain of some mild urinary symptoms. And he complains of weakness. Apparently he is on apixaban. Uncertain why. There is also history of iron deficiency anemia, type 1 diabetes. Prior similar symptoms: No Recent Illness/Hospitalization: Yes [facility] Medical History Fall Closed intertrochanteric fracture of right hip CKD (chronic kidney disease), stage II Chronic anemia Cancer of right lung Anxiety and depression GERD (gastroesophageal reflux disease) Cirrhosis Former smoker TIA (transient ischemic attack) Kidney stones Neuropathy PTSD (post-traumatic stress disorder) Hepatitis COPD (chronic obstructive pulmonary disease) Hypertension Diabetes Home Medications ?Medication ?Instructions ?Recorded ?Last Taken ?Type gabapentin 300 mg capsule 300 mg PO TID neuropathy 02/24/15 07/02/25 21:00 History amlodipine 5 mg tablet 10 mg PO QHS blood pressure 05/09/21 07/02/25 21:00 History 10 mg aspirin 81 mg tablet,delayed 81 mg PO DAILY heart health 05/09/21 07/02/25 History release Held on 07/07/25. Instructions: Hold while taking Eliquis. budesonide-formoterol HFA 80 2 puff inhalation BID COPD 05/09/21 07/02/25 History mcg-4.5 mcg/actuation aerosol inhaler (Symbicort) cyclobenzaprine 10 mg tablet 10 mg PO TID PRN muscle spasms 05/09/21 07/02/25 History sildenafil 100 mg tablet 100 mg PO DAILY PRN Erectile 05/09/21 07/02/25 History Dysfunction atorvastatin 80 mg tablet 80 mg PO QHS cholesterol #90 tabs 05/12/21 07/02/25 21:00 Rx insulin aspart U-100 100 unit/mL 10 unit subcut TIDCM DM 12/12/24 07/02/25 History (3 mL) subcutaneous pen (Novolog FlexPen U-100 Insulin aspart) insulin glargine 100 unit/mL (3 10 unit subcut QPM Dm 05/04/25 07/02/25 History mL) subcutaneous pen (Lantus Solostar U-100 Insulin) magnesium hydroxide 400 mg/5 mL 5 ml PO DAILY PRN constipation 05/04/25 07/02/25 History oral suspension (Gentle Laxative (magnesium hydroxide)) ropinirole 1 mg tablet 1 mg PO QHS rls 05/04/25 07/02/25 History albuterol 90 mcg/actuation aerosol 90 mcg inhalation Q4H PRN sob 07/04/25 Unknown History inhaler calcium carbonate 1,500 mg PO DAILY supplement 07/04/25 07/02/25 History cyclopentolate 2 % eye drops 1 drp LEFT EYE QHS inflamation 07/04/25 07/02/25 History ferrous sulfate 325 mg (65 mg 325 mg PO .every other day 07/04/25 Unknown History iron) tablet (Feosol) supplement lidocaine 5 % topical patch 2 patch topical DAILY PRN pain 07/04/25 Unknown History melatonin 3 mg tablet 3 mg PO QHS sleep 07/04/25 07/02/25 History nicotine 14 mg/24 hr daily 1 patch transdermal DAILY smoking 07/04/25 Unknown History transdermal patch (Nicoderm CQ) cessation polyethylene glycol 3350 17 gram 17 g PO DAILY constipation 07/04/25 07/02/25 History oral powder packet polyvinyl alcohol-povidone 1.4 1 drp ophthalmic (eye) 4X/DAY dry 07/04/25 07/02/25 History %-0.6 % eye drops eye prednisolone acetate 1 % eye 1 drp LEFT EYE Q6H inflamation 07/04/25 07/02/25 History drops,suspension sennosides 8.6 mg-docusate sodium 2 tab-cap PO DAILY stool softener 07/04/25 06/25/25 History 50 mg tablet (Senna with Docusate Sodium) tiotropium 2.5 mcg-olodaterol 2.5 2 puff inhalation DAILY asthma 07/04/25 07/02/25 History mcg/actuation mist for inhalation acetaminophen 500 mg tablet 1,000 mg PO Q8 PRN fever or pain 08/06/25 Unknown History apixaban 5 mg tablet (Eliquis) 2.5 mg PO Q12H 08/06/25 Unknown History omeprazole 20 mg capsule,delayed 20 mg PO DAILY 08/15/25 Unknown History release Allergy/AdvReac Type Severity Reaction Status Date / Time No Known Allergies Allergy Verified 08/15/25 20:18 Family History Mother CVA (cerebral vascular accident) Surgical History Hx of appendectomy Social History household members: none housing: apartment Smoking Status: Former smoker alcohol intake: never substance use type: does not use ROS ROS ED Constitutional Constitutional ED: Reports fever(s) and sweats Eyes Eyes: Denies blurry vision or change in vision ENT ENT ED: Denies rhinorrhea or sore throat Cardiovascular Cardiovascular: Reports racing heartbeat; Denies chest pain or palpitations Respiratory/Chest Respiratory/Chest: Reports cough and dyspnea; Denies sputum Gastrointestinal Gastrointestinal: Reports nausea; Denies abdominal pain, diarrhea or vomiting Genitourinary Genitourinary ED: Reports dysuria; Denies hematuria Musculoskeletal Musculoskeletal: Denies arthralgias or myalgias Integumentary Denies rash Neurologic Neurologic: Reports weakness; Denies headache(s) or paresthesias Endocrine Endocrinology: Denies cold intolerance or heat intolerance Hematologic/Lymphatic Hematologic/Lymphatic: Reports systems reviewed and no addt'l complaints, except as documented EXAM Physical Exam Const Vital Signs: 08/15/25 20:18 08/15/25 20:18 08/15/25 20:21 Temperature 102.3 F H 102.3 F H Temperature Source Oral Oral Pulse Rate 137 H 137 H Respiratory Rate 25 H 25 H Respiratory Effort Normal Respiratory Pattern Blood Pressure 137/80 H 137/80 H Blood Pressure Mean 99 99 Pulse Ox 97 96 Oxygen Delivery Method Room Air Room Air 08/15/25 20:23 08/15/25 20:41 08/15/25 21:22 Temperature 102.3 F H Temperature Source Oral Pulse Rate 133 H Respiratory Rate 23 H Respiratory Effort Normal Respiratory Pattern Tachypnea Blood Pressure 133/82 H Blood Pressure Mean 99 Pulse Ox 95 94 Oxygen Delivery Method Room Air Room Air 08/15/25 22:00 08/15/25 22:30 08/15/25 23:04 Temperature 100 F H 100 F H 100.8 F H Temperature Source Oral Oral Core Pulse Rate 125 H 123 H 117 H Respiratory Rate 22 H 25 H 22 H Respiratory Effort Respiratory Pattern Blood Pressure 124/78 H 113/67 111/81 H Blood Pressure Mean 93 82 91 Pulse Ox 96 94 97 Oxygen Delivery Method Room Air Room Air Room Air Positive well nourished and well developed Constitutional Narrative: Patient is tachycardic, tachypneic febrile and appears ill. General Appearance ED: well developed; Negative for cyanotic, diaphoretic or pallor HEENT Reports dry mucous membranes HEENT Narrative: He has poor dentition. Ears normal. TMs normal. Nares patent. Posterior pharynx erythema or exudate. Mouth ED: Yes dry mucous membranes Mouth: dry mucous membranes Eyes PERRL and EOMs intact bilaterally General Eye ED: Negative for pale conjunctiva or scleral icterus Neck no lymphadenopathy, supple and no JVD Chest Wall inspection of chest normal and palpation of chest normal Resp No normal respiratory effort and No clear to auscultation bilaterally Resp Narrative: There is minimal use of accessory muscles. There is rales noted the right side. Cardio regular rhythm, S1 normal heart sound, S2 normal heart sound and no murmurs Palpation: palpable S4 GI normal to inspection, nondistended, normoactive bowel sounds, non-tender, non-distended and no masses; Negative for hepatosplenomegaly Back/Spine no CVA tenderness Extremity normal to inspection Extremity Narrative: Incision site is well-healed without evidence of infection. Neuro No oriented x3 and CN's II-XII intact bilaterally Neuro Narrative: He does move all of his extremities. Psych Psych Narrative: Patient's affect is flat. He is slightly depressed. Skin no rashes or lesions noted, no wounds and No skin turgor normal General Skin Exam: Negative for jaundice or pallor Sepsis Attestation Sepsis Alert: Yes Sepsis Attestation: Agree w/Sepsis Date exam was performed: 08/15/25 Time exam was performed: 20:40 Fluid Resuscitation Fluid resuscitation indicated?: Yes Fluid Resuscitation ordered: 30 ml/kg fluid bolus ordered MDM MDM MDM Narrative Medical decision making narrative: Patient either has a respiratory or urologic source of his infection. He was started on Rocephin which will cover both urologic and respiratory. Sepsis order set was initiated. Prior records were reviewed. History & Record Review Additional record(s) reviewed:: Prior inpatient record (Mid June for right intertrochanteric hip fracture.), Prior ED visit and Prior labs Lab Data Attestation: I reviewed the patient's lab results. Lab results narrative: White count is upper end of normal at 10.2 thousand. He has microcytic anemia. There is a slight shift. PT is slightly elevated 16.2. Glucose elevated 165. Lactate is elevated 2.3. Liver enzymes are unremarkable. Albumin and globulin are slightly on the lower and. Labs: Laboratory Results - last 24 hr 08/15/25 08/15/25 20:49 22:30 WBC 10.2 RBC 4.05 L Hgb 8.6 L Hct 28.6 L MCV 70.6 L MCH 21.2 L MCHC 30.1 L RDW Std Deviation 51.3 H RDW Coeff of Tiffany 20.2 H Plt Count 346 MPV 9.2 Immature Gran % (Auto) 0.400 Neut % (Auto) 81.3 H Lymph % (Auto) 12.8 L Dillon % (Auto) 4.8 Eos % (Auto) 0.6 Baso % (Auto) 0.1 Absolute Neuts (auto) 8.3 H Absolute Lymphs (auto) 1.31 Nucleated RBC % 0 Differential Comment SCANNED Anisocytosis 2+ Microcytosis 1+ PT 16.2 H INR 1.3 APTT 33.3 Sodium 136 Potassium 4.7 Chloride 101 Carbon Dioxide 24.6 Anion Gap 11 BUN 17 Creatinine 0.91 Estim Creat Clear Calc 60.29 Est GFR (MDRD) Non-Af 87 BUN/Creatinine Ratio 18.4 Glucose 165 H Lactic Acid 2.3 H* Calcium 9.8 Total Bilirubin 0.31 AST 21 ALT 12 Alkaline Phosphatase 161 H Total Protein 8.4 Albumin 3.3 L Globulin 5.1 H Albumin/Globulin Ratio 0.6 L Urine Color Yellow Urine Clarity Clear Urine pH 6.5 Ur Specific [place] 1.010 Urine Protein 30 H Urine Glucose (UA) Normal Urine Ketones Negative Urine Occult Blood 10 H Urine Nitrite Negative Urine Bilirubin Negative Urine Urobilinogen Normal Ur Leukocyte Esterase Negative Urine RBC 0-5 SEEN Urine WBC 0-5 SEEN Ur Squamous Epith Cells 0-5 SEEN Urine Bacteria RARE Urine Mucus 0 SEEN Urine is not suggestive of urinary tract infection. His chest x-ray shows improvement from prior. Source of infection is unknown. Will add vancomycin. Radiography Chest X-Ray - ED: 1 View and Read by ED Physician (Patient has a large mass right perihilar area and was noted on x-rays obtained May 05, 2025. There is volume loss due to this. There is no effusion. There is no obvious infiltrate noted.) Diagnostic Testing: Clinical Impression(s) from Imaging Studies Chest X-Ray 08/15/25 20:38 IMPRESSION: Right perihilar mass and opacification slightly improved from the prior study. - Findings and recommendations discussed above. Reading Location: [facility] EKG Initial EKG: Attestation: I personally reviewed and interpreted this EKG as follows: Interpretation: Sinus Tachycardia (Rate is 135. There is evidence of first-degree AV block. There is also premature ventricular beats noted. There is nonspecific ST-T wave changes noted. Parables 218 ms. QRS duration 70 ms. QT durations 176 ms.) Management Discussion w/another healthcare provider: Hospitalist (Hospitalist Dr. Evans was called for admission for SIRS, encephalopathy, plan is admit PCU) Discharge Plan Triage Chief Complaint: Fever Other Complaint: Palpitations ED Provider: Monty Clarke Dx/Rx/DC Orders Clinical Impression: Acute encephalopathy, Acidosis, lactic, SIRS (systemic inflammatory response syndrome), History of lung cancer, Microcytic anemia, Type 1 diabetes mellitus with hyperglycemia, Caloric malnutrition Prescriptions: No Action gabapentin 300 MG capsule 300 mg PO TID cyclobenzaprine 10 mg Tablet 10 mg PO TID PRN (Reason: muscle spasms) amlodipine 5 mg Tablet 10 mg PO QHS budesonide-formoterol [Symbicort] 80-4.5 mcg/actuation Hfa Aerosol Inhaler 2 puff INHALATION BID aspirin 81 mg Tablet,Delayed Release (Dr/Ec) 81 mg PO DAILY sildenafil 100 mg Tablet 100 mg PO DAILY PRN (Reason: Erectile Dysfunction) atorvastatin 80 mg tablet 80 mg PO QHS Qty: 90 0RF insulin aspart U-100 [Novolog FlexPen U-100 Insulin] 100 unit/mL (3 mL) insulin pen 10 unit subcut TIDCM ropinirole 1 mg tablet 1 mg PO QHS insulin glargine [Lantus Solostar U-100 Insulin] 100 unit/mL (3 mL) insulin pen 10 unit subcut QPM Rx Instructions: PT STATES USES 10-15U QHS magnesium hydroxide [Gentle Laxative (mag hydrox)] 400 mg/5 mL suspension 5 ml PO DAILY PRN (Reason: constipation) omeprazole 20 mg capsule,delayed release(DR/EC) 20 mg PO DAILY sennosides-docusate sodium [Senna with Docusate Sodium] 8.6-50 mg tablet 2 tab-cap PO DAILY melatonin 3 mg tablet 3 mg PO QHS polyethylene glycol 3350 17 gram powder in packet 17 g PO DAILY ferrous sulfate [Feosol] 325 mg (65 mg iron) tablet 325 mg PO .every other day lidocaine 5 % adhesive patch,medicated 2 patch topical DAILY PRN (Reason: pain) Rx Instructions: leave on most painful area for up to 12 hrs cyclopentolate 2 % drops 1 drp LEFT EYE QHS calcium carbonate 500 mg calcium (1,250 mg) tablet 1,500 mg PO DAILY polyvinyl alcohol-povidone 1.4-0.6 % drops 1 drp ophthalmic (eye) 4X/DAY Rx Instructions: 1 drop each eye; prednisolone acetate 1 % drops,suspension 1 drp LEFT EYE Q6H tiotropium-olodaterol 2.5-2.5 mcg/actuation mist 2 puff inhalation DAILY nicotine [Nicoderm CQ] 14 mg/24 hr patch 24 hour 1 patch transdermal DAILY Rx Instructions: apply every morning and remove at HS albuterol 90 mcg/actuation aerosol 90 mcg inhalation Q4H PRN acetaminophen 500 mg Tablet 1,000 mg PO Q8 PRN (Reason: fever or pain) Rx Instructions: 1 g every 8 hourly for 1 week and then Q8 hourly as needed for severe pain Eliquis 5 mg Tablet 2.5 mg PO Q12H Rx Instructions: Start from 07/08/2025. Discontinue if platelet count drops less than 50,000 or hemoglobin less than 8 g% Primary Care Provider: Hubert Hagen Referrals: Hubert Hagen MD [Primary Care Provider, Family Practice] Print Language: Emirati Disposition Disposition: Home, Self Care
[2025-08-15 21:10] LABS: Hematocrit 28.6 % (40-54); Hemoglobin 8.6 g/dL (13.0-16.5); Immature Granulocytes Count 0.040 X10^3/uL (0.0-0.0); Mean Corp Hgb Conc 30.1 g/dL (32-36); Mean Corpuscular Volume 70.6 fL (80-94); Mean Platelet Vol. 9.2 fl (6.2-12.0); NRBC Flagged by Analyzer 0 % (0-5); POSITIVE MORPHOLOGY YES; Platelet Count 346 K/mm3 (150-450); RBC Distribution Width CV 20.2 % (11.6-14.6); RBC Distribution Width SD 51.3 fl (35.1-43.9); Red Blood Count 4.05 M/mm3 (4.6-6.2); White Blood Count 10.2 K/mm3 (4.4-11.0)
[2025-08-15 21:23] LABS: Differential Indicated SCAN CRITERIA MET
[2025-08-15 21:34] LABS: AST(SGOT) 21 U/L (<=37); Alanine Aminotransfer ALT/SGPT 12 U/L (<=46); Albumin, Serum 3.3 g/dL (3.4-4.8); Alkaline Phosphatase 161 U/L (40-129); Anion Gap 11 (5-15); BUN 17 mg/dL (4-19); BUN/Creat Ratio 18.4 RATIO (10-20); Calcium,Total 9.8 mg/dL (7.6-11.0); Carbon Dioxide 24.6 mmol/L (21.0-32.0); Chloride 101 mmol/L (98-108); Estimated Creatinine Clearance 60.29 ml/min (50-250); Globulin 5.1 g/dL (2.2-4.2); Glucose 165 mg/dL (70-99); Potassium 4.7 mmol/L (3.3-5.1)
[2025-08-15] MEDS: Ceftriaxone 2 GM in 0.9% Normal Saline (50mL MB+) 50 ML IV (21:37)
[2025-08-15 21:52] LABS: Prothrombin Time (Protime)PT. 16.2 SECONDS (11.7-14.9)
[2025-08-15 21:53] LABS: Partial Thromboplast Time 33.3 Seconds (24.1-36.2)
[2025-08-15 22:19] LABS: Anisocytosis 2+; Differential Comment SCANNED; Microcytosis 1+
--- NOTE | 2025-08-15 22:32 | ED.RN ---
Attempted to get 2nd IV on pt, unsuccessful attempts by Luis Black and this RN at this time. Pt placed on armboard due to frequent moving and stopping of antibiotics on IV pump. Pt continues to move arm even with armboard in place.
[2025-08-15 22:41] LABS: Mucous, Urine 0 SEEN /hpf (<or=2+)
[2025-08-15 22:54] LABS: Color, Urine Yellow (Yellow); Glucose, Dipstick Normal (Normal); Ketone-Dipstick Negative (Negative); Leukocyte Esterase-Dipstick Negative /ul (Negative); Nitrite-Dipstick Negative (Negative); Occult Blood-Urine 10 /ul (Negative); Protein-Dipstick 30 mg/dl (Negative); Specific Gravity, Urine 1.010 (1.002-1.030); Urine Bilirubin Dipstick Negative (Negative)
[2025-08-15 23:03] LABS: Red Blood Cells-Urine 0-5 SEEN /hpf (0-5); Squamous Epithelial Cells - UA 0-5 SEEN /hpf (0-5)
[2025-08-15] MEDS: 0.9% Normal Saline (250mL Bag) 250 ML 15 ML IV (23:03)
--- NOTE | 2025-08-15 23:22 | HP.PCM.HOS_ITS ---
HPI - General General Date of Admission: 08/15/25 Date of Service: 08/15/25 Chief Complaint: Confusion, fever, cough, dyspnea, elevated HR/RR. 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, Diabetes mellitus type II with chronic neuropathy, Anxiety and Depression, GERD, Hx CVA, Chronic anemia/iron deficiency anemia, Tobacco tobacco use, COPD/asthma, [facility]/25 following large right-sided lung cancer wit suspected postobstructive pneumonia with acute metabolic encephalopathy suspected secondary to hypercalcemia of malignancy in addition to acute on chronic anemia with suspected upper GI bleed with then readmission 07/03/25 secondary to mechanical fall with right greater trochanter fracture extending into the intertrochanteric line undergoing 07/04/2025 ORIF of the right hip with a long gamma nail placement discharged 07/07/2025 now re-presenting to the [facility] ED on 08/15/2025 with onset of fever, cough, dyspnea as well as dysuria in addition to palpitations/racing heart and increased respiratory rate worsening over the last 12 hours prompting family to bring patient in for evaluation. Workup in the ED included T1-2 0.3, heart rate 137, BP 137/80, respiratory rate 25, 97% on room air with most recent repeat vitals T1 100.8 Kohr, heart rate 117, BP 111/81, respiratory rate 22, 97% on room air, CBC with WC 10.2, hemoglobin 8.6, MCV 70.6, platelets 346 with left shift, coags unremarkable aside PT 16.2, CMP with BUN/creatinine 17/0.91, GFR 87, glucose 165, hepatic profile with alk phos 161 otherwise not marked appearing, lactic acid 2.3, urinalysis not marked appearing, chest x-ray with a right perihilar mass and opacification slightly improved from previous study. In the ED patient ministered Tylenol 650 mg p.o. x 1, vancomycin, Rocephin 2 g IV x 1 as well as judicious maintenance IV fluids. [facility] Medical History Fall Closed intertrochanteric fracture of right hip CKD (chronic kidney disease), stage II Chronic anemia Cancer of right lung Anxiety and depression GERD (gastroesophageal reflux disease) Cirrhosis Former smoker TIA (transient ischemic attack) Kidney stones Neuropathy PTSD (post-traumatic stress disorder) Hepatitis COPD (chronic obstructive pulmonary disease) Hypertension Diabetes Home Medications ?Medication ?Instructions ?Recorded ?Last Taken ?Type gabapentin 300 mg capsule 300 mg PO TID neuropathy 01/0907/02/25 21:00 History amlodipine 5 mg tablet 10 mg PO QHS blood pressure 05/09/21 07/02/25 21:00 History 10 mg aspirin 81 mg tablet,delayed 81 mg PO DAILY heart heal th 05/09/21 07/02/25 History release Held on 07/07/25. Instructions: Hold while taking Eliquis. 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 05/09/21 07/02/25 History mcg-4.5 mcg/actuation aerosol inhaler (Symbicort) cyclobenzaprine 10 mg tablet 10 mg PO TID PRN muscle s pasms 05/09/21 07/02/25 History sildenafil 100 mg tablet 100 mg PO DAILY PRN Erectile 05/09/21 07/02/25 History Dysfunction atorvastatin 80 mg tablet 80 mg PO QHS cholesterol #90 tabs 05/12/21 07/02/25 21:00 Rx insulin aspart U-100 100 unit/mL 10 unit subcut TIDCM DM 12/12/24 07/02/25 History (3 mL) subcutaneous pen (Novolog FlexPen U-100 Insulin aspart) insulin glargine 100 unit/mL (3 10 unit subcut QPM Dm 05/04/25 07/02/25 History mL) subcutaneous pen (Lantus Solostar U-100 Insulin) magnesium hydroxide 400 mg/5 mL 5 ml PO DAILY PRN cons tipation 05/04/25 07/02/25 History oral suspension (Gentle Laxative (magnesium hydroxide)) ropinirole 1 mg tablet 1 mg PO QHS rls 05/04/2507/19 History albuterol 90 mcg/actuation aerosol 90 mcg inhalation Q 4H PRN sob 07/04/25 Unknown History inhaler calcium carbonate 1,500 mg PO DAILY supplement 07/04/25 07/02/25 History cyclopentolate 2 % eye drops 1 drp LEFT EYE QHS inflam ation 07/04/25 07/02/25 History ferrous sulfate 325 mg (65 mg 325 mg PO .every other d ay 07/04/25 Unknown History iron) tablet (Feosol) supplement lidocaine 5 % topical patch 2 patch topical DAILY PRN pain 07/04/25 Unknown History melatonin 3 mg tablet 3 mg PO QHS sleep 07/04/25 0 07/02/25 History nicotine 14 mg/24 hr daily 1 patch transdermal DAILY s moking 07/04/25 Unknown History transdermal patch (Nicoderm CQ) cessation polyethylene glycol 3350 17 gram 17 g PO DAILY constip ation 07/04/25 07/02/25 History oral powder packet polyvinyl alcohol-povidone 1.4 1 drp ophthalmic (eye) 4X/DAY dry 07/04/25 07/02/25 History %-0.6 % eye drops eye prednisolone acetate 1 % eye 1 drp LEFT EYE Q6H inflam ation 07/04/25 07/02/25 History drops,suspension sennosides 8.6 mg-docusate sodium 2 tab-cap PO DAILY s tool softener 07/04/25 06/25/25 History 50 mg tablet (Senna with Docusate Sodium) tiotropium 2.5 mcg-olodaterol 2.5 2 puff inhalation DA MANDO asthma 07/04/25 07/02/25 History mcg/actuation mist for inhalation acetaminophen 500 mg tablet 1,000 mg PO Q8 PRN fever o r pain 08/06/25 Unknown History apixaban 5 mg tablet (Eliquis) 2.5 mg PO Q12H 08/06/25 Unknown History omeprazole 20 mg capsule,delayed 20 mg PO DAILY Unknown History release Allergy/AdvReac Type Severity Reaction Status Date / Time No Known Allergies Allergy Verified 08/15/25 20:18 Family History Mother CVA (cerebral vascular accident) Family History other other (Patient reports not knowing his paternal or paternal family history.) Surgical History Hx of appendectomy Social History household members: none housing: apartment Smoking Status: Former smoker alcohol intake: never substance use type: does not use ROS ROS Narrative Admission Review of Systems: CONSTITUTIONAL: No weight loss, + fever, chills, weakness or fatigue. HEENT: Eyes: No visual loss, blurred vision, double vision or yellow sclerae. Ears, Nose, Throat: No hearing loss, sneezing, congestion, runny nose or sore throat. SKIN: No rash or itching, lesions, wounds except + occasional abrasion. CARDIOVASCULAR: + Palpitations/racing heart. No chest pain, chest pressure or chest discomfort, edema, orthopnea, syncopal events. RESPIRATORY: + Increased cough without marked sputum, mild dyspnea. No wheezing, hemoptysis. GASTROINTESTINAL: + Decreased appetite. No nausea, vomiting or diarrhea, abdominal pain, melena, BRBPR. GENITOURINARY: + Dysuria. No frequency, urgency or retention. NEUROLOGICAL: + Mild confusion. No headache, dizziness, syncope, paralysis, ataxia, numbness or tingling in the extremities, focal weakness, change in bowel or bladder control, seizure. MUSCULOSKELETAL: + muscle, back pain, joint pain or stiffness. HEMATOLOGIC: + Chronic anemia, easy bleeding/bruising. LYMPHATICS: No enlarged nodes. No history of splenectomy. PSYCHIATRIC: + History of anxiety and depression. ENDOCRINOLOGIC: No reports of sweating, cold or heat intolerance. No polyuria or polydipsia. ALLERGIES: + History of asthma. Vital Signs Vital Signs Vital Signs: 08/15/25 20:18 08/15/25 20:18 08/15/25 20:21 Temperature 102.3 F H 102.3 F H Temperature Source Oral Oral Pulse Rate 137 H 137 H Respiratory Rate 25 H 25 H Respiratory Effort Normal Respiratory Pattern Blood Pressure 137/80 H 137/80 H Blood Pressure Mean 99 99 Pulse Ox 97 96 Oxygen Delivery Method Room Air Room Air 08/15/25 20:23 08/15/25 20:41 08/15/25 21:22 Temperature 102.3 F H Temperature Source Oral Pulse Rate 133 H Respiratory Rate 23 H Respiratory Effort Normal Respiratory Pattern Tachypnea Blood Pressure 133/82 H Blood Pressure Mean 99 Pulse Ox 95 94 Oxygen Delivery Method Room Air Room Air 08/15/25 22:00 08/15/25 22:30 08/15/25 23:04 Temperature 100 F H 100 F H 100.8 F H Temperature Source Oral Oral Core Pulse Rate 125 H 123 H 117 H Respiratory Rate 22 H 25 H 22 H Respiratory Effort Respiratory Pattern Blood Pressure 124/78 H 113/67 111/81 H Blood Pressure Mean 93 82 91 Pulse Ox 96 94 97 Oxygen Delivery Method Room Air Room Air Room Air Weight Weight: 138 lb 3.677 oz Body Mass Index (BMI) 18.7 Physical Exam Narrative Physical Examination: General: Awake, alert, oriented to self, place and initially says wrong month but quickly corrects himself and gives the correct month, remains cooperative and following commands, laying in the ED bed, fatigued, ill-appearing. Skin: Normal color, normal turgor, no icterus, no cyanosis except occasional abrasion. HEENT: AT/NC, EOMI, PERRLA, moderately dry MM, poor dentition, no carotid bruits or JVD noted. Lungs: Diminished, greater bases, right greater than left, mildly increased respiratory rate but no distress, no appreciated rales, ronchi or wheezing. Heart: Mildly tachycardic with regular rhythm; no gallop, rub audible. Abdomen: Soft, thin habitus, NTTP, ND, mildly hyperactive BS, + HM. Extremities: No cyanosis, no clubbing, no significant distal edema. Neurological: Patient awake, alert, oriented as noted, cognitive function improving, suspect near baseline intact; pupils equally reactive to light and accommodation, cranial nerves grossly normal, moving all 4 extremities, strength severely globally decreased. Psychiatric: Affect appears fatigued, mildly lethargic, no acute evidence of depressive or anxiety feelings but does have underlying psychiatric history. Results Lab / Micro Data 08/15/25 20:49 08/15/25 20:49 Labs: Laboratory Results - last 24 hr 08/15/25 20:49: WBC 10.2, RBC 4.05 L, Hgb 8.6 L, Hct 28.6 L, MCV 70.6 L, MCH 21.2 L, MCHC 30.1 L, RDW Std Deviation 51.3 H, RDW Coeff of Tiffany 20.2 H, Plt Count 346, MPV 9.2, Immature Gran % (Auto) 0.400, Neut % (Auto) 81.3 H, Lymph % (Auto) 12.8 L, Maury % (Auto) 4.8, Eos % (Auto) 0.6, Baso % (Auto) 0.1, Absolute Neuts (auto) 8.3 H, Absolute Lymphs (auto) 1.31, Nucleated RBC % 0, Differential Comment SCANNED, Anisocytosis 2+, Microcytosis 1+, PT 16.2 H, INR 1.3, APTT 33.3, Sodium 136, Potassium 4.7, Chloride 101, Carbon Dioxide 24.6, Anion Gap 11, BUN 17, Creatinine 0.91, Estim Creat Clear Calc 60.29, Est GFR (MDRD) Non-Af 87, BUN/Creatinine Ratio 18.4, Glucose 165 H, Lactic Acid 2.3 H*, Calcium 9.8, Total Bilirubin 0.31, AST 21, ALT 12, Alkaline Phosphatase 161 H, Total Protein 8.4, Albumin 3.3 L, Globulin 5.1 H, Albumin/Globulin Ratio 0.6 L 08/15/25 22:30: Urine Color Yellow, Urine Clarity Clear, Urine pH 6.5, Ur Specific [place] 1.010, Urine Protein 30 H, Urine Glucose (UA) Normal, Urine Ketones Negative, Urine Occult Blood 10 H, Urine Nitrite Negative, Urine Bilirubin Negative, Urine Urobilinogen Normal, Ur Leukocyte Esterase Negative, Urine RBC 0-5 SEEN, Urine WBC 0-5 SEEN, Ur Squamous Epith Cells 0-5 SEEN, Urine Bacteria RARE, Urine Mucus 0 SEEN Imaging Radiology Impression Chest X-Ray 08/15/25 20:38 IMPRESSION: Right perihilar mass and opacification slightly improved from the prior study. - Findings and recommendations discussed above. 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, Diabetes mellitus type II with chronic neuropathy, Anxiety and Depression, GERD, Hx CVA, Chronic anemia/iron deficiency anemia, Tobacco tobacco use, COPD/asthma, recent transfer to the [place] from [facility] on 05/13/25 following large right-sided lung cancer wit suspected postobstructive pneumonia with acute metabolic encephalopathy suspected secondary to hypercalcemia of malignancy in addition to acute on chronic anemia with suspected upper GI bleed with then readmission 07/03/25 secondary to mechanical fall with right greater trochanter fracture extending into the intertrochanteric line undergoing 07/04/2025 ORIF of the right hip with a long gamma nail placement discharged 07/07/2025 now re-presenting to the [facility] ED on 08/15/2025 with onset of fever, cough, dyspnea as well as dysuria in addition to palpitations/racing heart and increased respiratory rate worsening over the last 12 hours prompting family to bring patient in for evaluation. #1. Acute encephalopathy with SIRS with lactic acidosis suspected secondary to possible postobstructive pneumonia, possible gram-negative/gram-positive organism: Will admit to PCU given SIRS presentation and although not certain pulmonary source urinalysis is not marked, currently not requiring oxygen but if necessary will initiate and wean as tolerated, continue ATC budesonide therapies, PRN albuterol, maintained on IV Zosyn and Vancomycin pending further evaluation and results, MRSA screen requested, encourage HOB, IS parameters w/ pending sputum cultures, full respiratory viral panel and urine antigens. Bld cx x 2 obtained in the ED. PT/OT/case management consulted for discharge planning. #2. Right sided lung cancer (suprahilar, unclear exact specific type) with previously associated hypercalcemia of malignancy: [facility], from [facility] records had been receiving chemotherapy however with discussions currently he denies any active ongoing therapy but uncertain, current presentation with calcium normal range, magnesium and phosphorus requested, strongly encouraged ongoing evaluation and [facility]. #3. Chronic microcytic anemia/iron deficiency anemia, recent GI bleed presentation: Admission hemoglobin 8.6, MCV 70.6, baseline hemoglobin more recently 7-8, continue to trend, continue iron supplementation. #4. Hx CVA: Patient with previous acute right posterior parietal lobe infarct with associated 50 to 69% narrowing of the left internal carotid artery at that time, will continue eliquis, statin, hypertensive regimen, diabetic regimen with adjustments as able. #5. Chronic Kidney Disease Stage II per GFR trend: Admission BUN/Cr 17/0.91, GFR 87, baseline renal function 0.9-1.2 primarily, repeat BMP in AM. #6. Diabetes mellitus type II with chronic neuropathy: Hold oral home regimen, continue home insulin regimen, ADA diet, accu checks w/ ISS, continue home gabapentin regimen. #7. 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 #8. Anxiety and depression: Not on any regimen, encourage continued follow-up outpatient for further evaluation especially given ongoing evaluation and treatment as noted #2. #9. Hypertension: Continue home regimen including amlodipine with hold parameters as needed, PRN hydralazine. #10. Hyperlipidemia: Will continue home statin therapy. #11. Chronic COPD/asthma: Will temporally hold home inhaler and in the interim maintain on ATC budesonide therapy, PRN albuterol, HOB, IS parameters. #12. GERD: Continue home PPI. #13. Tobacco Abuse: Encouraged cessation, inpatient consultation per RT, NR if desired. #14. Restless leg syndrome: Will continue patient on Requip regimen. #15. Severe protein calorie malnutrition: BMI reduced, obvious muscle and fat loss, significant underlying morbidities including active cancer on chemotherapy, mag and Phos requested, nutrition consulted for recommendations. #16. DVT prophylaxis: Eliquis. Of note Eliquis was supposed to be continued for at least 4 weeks following operative intervention, could consider de-escalation off at discharge however he is high risk given his underlying cancer. #17. CODE status: Patient HCPOA and living will are not in place but he notes his daughter will be his medical decision-maker if necessary. Had previously discussed this during prior admission and he had been full code at that time, we discussed and confirms he wishes to remain a Full Code. Charges/Coding Visit Charges Inpatient E&M: 99662 Init Hosp L3
[2025-08-15] MEDS: Vancomycin HCl 1,500 MG in 0.9% Normal Saline (500mL Bag) 500 ML 250 MG IV (23:32)
[2025-08-15 23:56] LABS: Magnesium 1.7 mg/dL (1.5-2.2)
[2025-08-16] VITALS (11 sets, daily range): BP systolic 113–148; BP diastolic 71–82; PULSE 89–116; RESP 18–22; TEMP 36.3–37.6; O2SAT 94–100
--- OUTSIDE RECORDS SUMMARY | 2025-08-16 00:06 | XMS RPT_ITS | CCD ---
Author Organization [facility] Care Team Providers Care Airflight Attendants Supervisor Name Role Phone Dr. Steven Tejeda DO Emergency Provider Adithya TRAUMA COUNSELLOR-C, Carlene Hamm Primary Care Provider [phone] Dr. Steven Tejeda DO Attending Provider Dr. Ike Dawson DO Emergency Provider [phone] Ike Dawson DO Attending Provider Dr. Monty Clarke MD Emergency Provider [phone] Stanley DO Admit Provider [phone] Dr. Lane Stanley DO Attending Provider Dr. [...] Dr. Steven Tejeda DO Emergency Provider Adithya TRAUMA COUNSELLOR-C, Carlene N Primary Care Provider Eunice BYRNES, Dr. Ramires Attending Provider Eunice BYRNES, Dr. Ramires Emergency Provider [phone] Vince HERBERT, Dr. Millan Emergency Provider Lizeth BYRNES, Dr. Sherman Admit Provider [phone] Lizeth DO, Dr. Sherman Other Provider Damian HERBERT, Dr. Cruz Attending Provider Damian HERBERT, Dr. Cruz Other Provider [phone] Cristina HERBERT, Dr. Johanne Jordan Admit Provider Cristina HERBERT, Dr. Johanne Jordan Other Provider Adrian HERBERT, Dr. Reina Other Provider Elvira HERBERT, Dr. Ivey Other Provider Unavailable Elvira HERBERT, Dr. Ivey Attending Provider Unavaila ble Vince HERBERT, Dr. Millan Attending Provider Andtodd BYRNES, Dr. Burnham Emergency Provider [phone] Hieu HERBERT, Dr. Gaspar Primary Care Provider [...] L Attending Unavailable Uche Felix Attending Unavailable [facility] [place] Primary Care Unavailable Juvencio Shen Attending Unavailable [...] docusate sodium 50 mg / zoe osides, halfway 8.6 mg oral tablet (3 sources) Start: [...] Pump Inhibitor Start: 07-04-2025 polyethylene glycol 3350 13669 mg powder for oral solution (3 sources) [...] Start: 05-09-2021 take 2 tablets by mo [facility] at bedtime Amlodipine 5 mg Tablet [...] source) Long-term current use of anticoagulant; Translations: [USP (current) use of anticoagulants] 08-06-2025 Episodic Other [...] Cultureon 08-09-2025 [facility] Urine Culture Escherichia coli [place] Count <1000 Escherichia coli: REACTION Ampicillin Islt [...] TMP SMX Islt RODRIGUEZ >=320 R Normal [facility] Comment on above: Performed By: #### L 400.0001 #### [facility] [address] [place], [address] Absolute lymphocyte countOrd ered By: Tej Amado on 08-06-2025 Lymphocytes Auto (Unsp spec) [#/Vol] 2.21 10*3/uL 0.83-4.51 [facility] Ammoniaon 09-12-2025 Ammonia (P) [Mass/Vol] ug/dL Low 16-60 [facility] Comment on above: Performed By: #### L 503.5510, L500.3400, L500.2500, L100.0100 #### [facility] [address] [place], [address] Anion gap in Serum or Plasma Ordered By: Tej Amado on 08-06-2025 Anion gap [Moles/Vol] 11 mmol/L - [facility] Automated lymphocyte count a s percentage of total leukocytesOrdered By: Tej Amado on 08-06-2025 Lymphocytes/100 WBC Auto (Unsp spec) 22.6 % [facility] BUN/creatinine ratioOrdered By: Tej Amado on 08-06-2025 Urea nitrogen/Creatinine [Mass ratio] 19.7 mg/mg - [facility] Basic Metabolic Profile (BMP )on 08-06-2025 BUN/CRE 19.7 RATIO Normal - [facility] Comment on above: Performed By: #### L 503.5510, L500.3400, L500.2500, L100.0100 #### [facility] [address] [place], [address] Calcium [Mass/Vol] 9.1 mg/dL Normal 7.6-11.0 [facility] Comment on above: Performed By: #### L 503.5510, L500.3400, L500.2500, L100.0100 #### [facility] [address] [place], [address] Chloride [Moles/Vol] 105 mmol/L Normal 98-108 [facility] Comment on above: Performed By: #### L 503.5510, L500.3400, L500.2500, L100.0100 #### [facility] [address] [place], [address] CO2 [Moles/Vol] 23.7 mmol/L Normal 21.0-32.0 [facility] Comment on above: Performed By: #### L 503.5510, L500.3400, L500.2500, L100.0100 #### [facility] [address] [place], [address] Creatinine [Mass/Vol] 1.03 mg/dL Normal 0.70-1.20 [facility] Comment on above: Performed By: #### L 503.5510, L500.3400, L500.2500, L100.0100 #### [facility] [address] [place], [address] ECRCL 51.74 ml/min Normal 50-250 [facility] Comment on above: Performed By: #### L 503.5510, L500.3400, L500.2500, L100.0100 #### [facility] [address] [place], [address] GAP 11 Normal 5-15 [facility] Comment on above: Performed By: #### L 503.5510, L500.3400, L500.2500, L100.0100 #### [facility] [address] [place], [address] GFR/1.73 sq M.predicted among non-blacks MDRD (S/P/Bld) [Vol rate/Area] 75 mL/min/{1.73_m2} Normal >60 [facility] Comment on above: Result Comment: mL/m in/1.73m2 CKD-EPI Creatinine Equation (2020) Performed By: #### L 503.5510, L500.3400, L500.2500, L100.0100 #### [facility] [address] [place], [address] Glucose [Mass/Vol] 116 mg/dL High 70-99 [facility] Comment on above: Performed By: #### L 503.5510, L500.3400, L500.2500, L100.0100 #### [facility] [address] [place], [address] Potassium [Moles/Vol] 3.7 mmol/L Normal 3.3-5.1 [facility] Comment on above: Performed By: #### L 503.5510, L500.3400, L500.2500, L100.0100 #### [facility] [address] [place], [address] Sodium [Moles/Vol] 140 mmol/L Normal 133-145 [facility] Comment on above: Performed By: #### L 503.5510, L500.3400, L500.2500, L100.0100 #### [facility] [address] [place], [address] Urea nitrogen [Mass/Vol] 20 mg/dL High 4-19 [facility] Comment on above: Performed By: #### L 503.5510, L500.3400, L500.2500, L100.0100 #### [facility] [address] [place], [address] Basophil percentageOrdered B y: Tej Amado on 08-06-2025 Basophils/100 WBC (Bld) 0.3 % 0-1 [facility] Bilirubin Test strip Ql (U)O rdered By: Tej Amado on 08-06-2025 Bilirubin Ql (U) Negative Negative [facility] Bilirubin directOrdered By: Tej Amado on 08-06-2025 Bilirubin.direct [Mass/Vol] 0.10 mg/dL 0.00-0.30 [facility] Bilirubin, totalOrdered By: Tej Amado on 08-06-2025 Bilirubin [Mass/Vol] 0.23 mg/dL 0.00-1.30 [facility] Blood manual differential co mment interpretation (narrative result)Ordered By: Tej Amado on 08-06-2025 Manual differential comment Refugio (Bld) [Interp] SCANNED [facility] Blood polychromasia detectio n by light microscopyOrdered By: Tej Amado on 08-06-2025 Polychromasia LM Ql (Bld) [facility] Blood schistocyte detection by light microscopyOrdered By: Tej Amado on 08-06-2025 Schistocytes LM Ql (Bld) [facility] Brain/Head without Contrasto n 08-06-2025 Brain/Head without Contrast [facility] Imaging Services [address] [place] [address] Brain/Head without Contrast MR#: [id number] Acct: [id number] Name: ITZEL ALONZO Rep #: [id number] : 1950 M 75 From: Rafy Plata MD PCP: Dr. Hubert Hagen MD Status: REG ER Study: Brain/Head without Contrast Date of Exam: 07/26 01/19 Exam# [id number] Ordering Dr: Tej Amado DO PROCEDURE: BRAIN/HEAD [...] intracranial findings, as described above. Reading Location: [facility] CC: Dr. Hubert Hagen MD; Tej Amado DO Route Returner: Signed Normal [facility] CBC W/Diff, Automatedon 07-26 POLYCHROMASIA [facility] Comment on above: Performed By: #### L 503.5510, L500.3400, L500.2500, L100.0100 #### [facility] [address] [place], [address] SMEAR COMMENT SCANNED Normal [facility] Comment on above: Result Comment: ANIS CYTOSIS 2+ Performed By: #### L 503.5510, L500.3400, L500.2500, L100.0100 #### [facility] [address] [place], [address] SCHISTOCYTES RARE Normal [facility] Comment on above: Performed By: #### L 503.5510, L500.3400, L500.2500, L100.0100 #### [facility] [address] [place], [address] TARGET CELLS RARE Normal [facility] Comment on above: Performed By: #### L 503.5510, L500.3400, L500.2500, L100.0100 #### [facility] [address] [place], [address] Anisocytosis Ql (Bld) 2+ Normal [facility] Comment on above: Performed By: #### L 503.5510, L500.3400, L500.2500, L100.0100 #### [facility] [address] [place], [address] OVALOCYTE RARE Normal [facility] Comment on above: Performed By: #### L 503.5510, L500.3400, L500.2500, L100.0100 #### [facility] [address] [place], [address] Carbon dioxide, total [Moles /volume] in Central venous bloodOrdered By: Tej Amado on 08-06-2025 CO2 [Moles/Vol] 23.7 mmol/L 21.0-32.0 [facility] Chloride assayOrdered By: Virgie Amado on 08-06-2025 Chloride [Moles/Vol] 105 mmol/L 98-108 [facility] Emergency Department Summary on 08-06-2025 Emergency Department Summary [facility] Medical Records Department [address] [place] [address] Emergency Department Summary 08/06/25 MR#: [id number] Acct: [id number] Name: ITZEL ALONZO Rep #: [id number] : 1950 75 From: Tej Amado DO PCP: Dr. Hubert Hagen MD Status:REG ER Location: ED HPI History of Present Illness Chief Complaint: Fall Informant: patient and SNF Narrative Narrative: Patient is a 75-year-old male from the [facility] with past medical history of lung cancer chronic anemia hypertension chronic kidney disease and cirrhosis. He is on 2.5 mg of Eliquis twice a day secondary to previous TIA/CVA. detention staff reports that this evening he was [...] is oriented to person and year. However [facility] reports they felt his mental status was more diminished than at his baseline. The patient reports pain in his hip and low back but otherwise has no complaints. [facility] Medical History Fall Closed intertrochanteric fracture [...] PO Q12H (more content not included)... Normal [facility] Eosinophil percentageOrdered By: Tej Amado on 08-06-2025 Eosinophils/100 WBC (Bld) 3.0 % 0-5 [facility] Erythrocyte distribution wid th ratioOrdered By: Tej Amado on 08-06-2025 Erythrocyte distribution width (RBC) [Ratio] 20.6 % High 11.6-14.6 [facility] Erythrocyte distribution wid th standard deviationOrdered By: Tej Amado on 08-06-2025 Erythrocyte distribution width (RBC) [Ratio] 52.9 fl High 35.1-43.9 [facility] Extremity Lower without Cont raon 08-06-2025 Extremity Lower without Contra [facility] Imaging Services [address] [place] [address] Extremity Lower without Contra MR#: [id number] Acct: [id number] Name: ITZEL ALONZO Rep #: [id number] : 1950 M 75 From: Sarita hamm MD PCP: Dr. Hubert Hagen MD Status: REG ER Study: Extremity Lower without Contra Date of Exam: 0 08/06/25 Exam# [id number] Ordering Dr: Tej Amado DO PROCEDURE: EXTREMITY [...] evidence of an acute abnormality. Reading Location: [place] [address] CC: Dr. Hubert Hagen MD; Tej Amado DO Route Returner: Signed Normal [facility] Glomerular filtration rate ( GFR) estimation/1.73 sq m using serum, plasma, or whole bOrdered By: Tej Amado on 08-06-2025 GFR/1.73 sq M.predicted among non-blacks MDRD (S/P/Bld) [Vol rate/Area] 75 mL/min/{1.73_m2} >60 [facility] Hematocrit Auto (Bld) [Volum e fraction]Ordered By: Tej Amado on 08-06-2025 Hematocrit (Bld) [Volume fraction] 27.6 % Low 40-54 [facility] Hemoglobin measurementOrdere d By: Tej Amado on 08-06-2025 Hemoglobin (Bld) [Mass/Vol] 8.3 g/dL Low 13.0-16.5 [facility] Immature granulocytes/100 WB C Auto (Bld)Ordered By: Tej Amado on 08-06-2025 Immature granulocytes/100 WBC (Bld) 0.400 % 0.0-0.9 [facility] Ketones Test strip Ql (U)Ord ered By: Tej Amado on 08-06-2025 Ketones Ql (U) Negative Negative [facility] Liver Profileon 08-06-2025 Albumin [Mass/Vol] 3.2 g/dL Low 3.4-4.8 [facility] Comment on above: Performed By: #### L 503.5510, L500.3400, L500.2500, L100.0100 #### [facility] [address] [place], [address] ALK PHOS 174 U/L High 40-129 [facility] Comment on above: Performed By: #### L 503.5510, L500.3400, L500.2500, L100.0100 #### [facility] [address] [place], [address] ALT [Catalytic activity/Vol] 13 U/L Normal <=46 [facility] Comment on above: Performed By: #### L 503.5510, L500.3400, L500.2500, L100.0100 #### [facility] [address] [place], [address] AST [Catalytic activity/Vol] 23 U/L Normal <=37 [facility] Comment on above: Performed By: #### L 503.5510, L500.3400, L500.2500, L100.0100 #### [facility] [address] [place], [address] Bilirubin [Mass/Vol] 0.23 mg/dL Normal 0.00-1.30 [facility] Comment on above: Performed By: #### L 503.5510, L500.3400, L500.2500, L100.0100 #### [facility] [address] [place], [address] Bilirubin.direct [Mass/Vol] 0.10 mg/dL Normal 0.00-0.30 [facility] Comment on above: Performed By: #### L 503.5510, L500.3400, L500.2500, L100.0100 #### [facility] [address] [place], [address] Globulin (S) [Mass/Vol] 4.9 g/dL High 2.2-4.2 [facility] Comment on above: Performed By: #### L 503.5510, L500.3400, L500.2500, L100.0100 #### [facility] [address] [place], [address] T PROT 8.0 g/dL Normal 5.9-8.4 [facility] Comment on above: Performed By: #### L 503.5510, L500.3400, L500.2500, L100.0100 #### [facility] [address] [place], [address] MCV (mean corpuscular volume ) determinationOrdered By: Tej Amado on 08-06-2025 MCV (RBC) [Entitic vol] 71.7 fL Low 80-94 [facility] Mean corpuscular hemoglobin (MCH) determinationOrdered By: Tej Amado on 08-06-2025 MCH (RBC) [Entitic mass] 21.6 pg Low 27.0-32.0 [facility] Monocyte percentageOrdered B y: Tej Amado on 08-06-2025 Monocytes/100 WBC (Bld) 5.8 % 0-10 [facility] Mucus LM Ql (Urine sed)Order ed By: Tej Amado on 08-06-2025 Mucus Ql (Urine sed) 0 SEEN /hpf [facility] Neutrophil percentageOrdered By: Tej Amado on 08-06-2025 Neutrophils/100 WBC (Bld) 67.9 % 47-70 [facility] Nitrite Test strip Ql (U)Ord ered By: Tej Amado on 08-06-2025 Nitrite Ql (U) Negative Negative [facility] No Panel InformationOrdered By: Tej Amado on 08-06-2025 2+ [facility] 23 U/L <38 [facility] Ovalocyte detectionOrdered B y: Tej Amado on 08-06-2025 Ovalocytes LM Ql (Bld) RARE Wo [facility] Platelet countOrdered By: Virgie Amado on 08-06-2025 Platelets (Bld) [#/Vol] 350 10*3/uL 150-450 [facility] Potassium measurement (mass/ volume)Ordered By: Tej Amado on 08-06-2025 Potassium (Unsp spec) [Mass/Vol] 3.7 mmol/L 3.3-5.1 [facility] Protein Test strip Ql (U)Ord ered By: Tej Amado on 08-06-2025 Protein Ql (U) 100 mg/dl High Negative [facility] RBC Auto (Bld) [#/Vol]Ordere d By: Tej Amado on 08-06-2025 RBC (Bld) [#/Vol] 3.85 10*6/uL Low 4.6-6.2 [facility] Serum creatinine measurement (mass/volume)Ordered By: Tej Amado on 08-06-2025 Creatinine [Mass/Vol] 1.03 mg/dL 0.70-1.20 [facility] Serum globulin measurementOr dered By: Tej Amado on 08-06-2025 Globulin (S) [Mass/Vol] 4.9 g/dL High 2.2-4.2 [facility] Serum glucose measurement (m ass/volume)Ordered By: Tej Amado on 08-06-2025 Glucose [Mass/Vol] 116 mg/dL High 70-99 [facility] Serum or plasma alanine stahl otransferase (ALT) measurementOrdered By: Tej Amado on 08-06-2025 ALT [Catalytic activity/Vol] 13 U/L <47 [facility] Serum or plasma albumin ivania urement (mass/volume)Ordered By: Tej Amado on 08-06-2025 Albumin [Mass/Vol] 3.2 g/dL Low 3.4-4.8 [facility] Serum or plasma alkaline brittany sphatase measurementOrdered By: Tej Amado on 08-06-2025 ALP [Catalytic activity/Vol] 174 U/L High 40-129 [facility] Serum or plasma calcium ivania urement (mass/volume)Ordered By: Tej Amado on 08-06-2025 Calcium [Mass/Vol] 9.1 mg/dL 7.6-11.0 [facility] Serum or plasma urea nitroge n measurement (mass/volume)Ordered By: Tej Amado on 08-06-2025 Urea nitrogen [Mass/Vol] 20 mg/dL High 4-19 [facility] Sodium levelOrdered By: Marco Antonio Amado on 08-06-2025 Sodium [Moles/Vol] 140 mmol/L 133-145 [facility] Spine Cervical without Contr ason 08-06-2025 Spine Cervical without Contras [facility] Imaging Services [address] [place] [address] Spine Cervical without Contras MR#: [id number] Acct: [id number] Name: ITZEL ALONZO Rep #: [id number] : 1950 75 From: Sarita hamm MD PCP: Dr. Hubert Hagen MD Status: REG ER Study: Spine Cervical without Contras Date of Exam: 0 08/06/25 Exam# [id number] Ordering Dr: Tej Amado DO PROCEDURE: SPINE [...] CT evidence for acute abnormality. Reading Location: [place] [address] CC: Dr. Hubert Hagen MD; Tej Amado DO Route Returner: Signed Normal [facility] Spine Lumbar without Contras ton 08-06-2025 Spine Lumbar without Contrast [facility] Imaging Services [address] [place] [address] Spine Lumbar without Contrast MR#: [id number] Acct: [id number] Name: ITZEL ALONZO Rep #: [id number] : 1950 M 75 From: Sarita hamm MD PCP: Dr. Hubert Hagen MD Status: REG ER Study: Spine Lumbar without Contrast Date of Exam: Exam# [id number] Ordering Dr: Tej Amado DO PROCEDURE: SPINE [...] of an acute traumatic abnormality. Reading Location: [place] [address] CC: Dr. Hubert Hagen MD; Tej Amado DO Route Returner: Signed Normal [facility] Squamous epithelial cells de tection in urine sediment by light microscopyOrdered By: Tej Amado on 08-06-2025 Epithelial cells.squamous LM Ql (Urine sed) 0-5 SEEN /hpf 0-5 [facility] Target cell detectionOrdered By: Tej Amado on 08-06-2025 Target cells LM Ql (Bld) RARE [facility] Total proteinOrdered By: Andres Amado on 08-06-2025 Protein [Mass/Vol] 8.0 g/dL 5.9-8.4 [facility] Urinalysis, Completeon 08-06 RBC 0-5 SEEN Normal 0-5 [facility] Comment on above: Order Comment: ADRIÁN CTOR TO SPECIFY Performed By: #### L 400.0001 #### [facility] [address] [place], [address] BACTERIA 1+ /hpf Normal None Seen [facility] Comment on above: Order Comment: ADRIÁN CTOR TO SPECIFY Performed By: #### L 400.0001 #### [facility] [address] [place], [address] EPI,SQUAMOUS 0-5 SEEN Normal 0-5 [facility] Comment on above: Order Comment: ADRIÁN CTOR TO SPECIFY Performed By: #### L 400.0001 #### [facility] [address] [place], [address] WBC >100 SEEN Normal 0-5 [facility] Comment on above: Order Comment: ADRIÁN CTOR TO SPECIFY Performed By: #### L 400.0001 #### [facility] [address] [place], [address] Mucus Ql (Urine sed) 0 SEEN Normal [facility] Comment on above: Order Comment: ADRIÁN CTOR TO SPECIFY Performed By: #### L 400.0001 #### [facility] [address] [place], [address] Urine clarityOrdered By: Andres Amado on 08-06-2025 Clarity (U) Cloudy Clear [facility] Urine color determinationOrd ered By: Tej Amado on 08-06-2025 Color (U) Yellow Yellow [facility] Urine glucose detectionOrder ed By: Tej Amado on 08-06-2025 Glucose Ql (U) Normal mg/dl Normal [facility] Urine leukocyte esterase det ection by dipstickOrdered By: Tej Amado on 08-06-2025 Leukocyte esterase Test strip Ql (U) 500 /ul High Negative [facility] Urine pHOrdered By: eTj judd on 08-06-2025 pH (U) 6.0 [pH] 5.0 - 8.0 [facility] Urine sediment bacteria coun t by microscopy (number/high power field)Ordered By: Tej Amado on 08-06-2025 Bacteria LM.HPF (Urine sed) [#/Area] 1 /[HPF] None Seen [facility] Urine specific gravity measu rementOrdered By: Tej Amado on 08-06-2025 Specific gravity (U) [Rel density] 1.010 1.002-1.030 [facility] Urine urobilinogen measureme ntOrdered By: Tej Amado on 08-06-2025 Urobilinogen Ql (U) Normal mg/dl Normal [facility] White blood cell (WBC) count Ordered By: Tej Amado on 08-06-2025 WBC (Bld) [#/Vol] 9.8 10*3/uL 4.4-11.0 [facility] White blood cell countOrdere d By: Tej Amado on 08-06-2025 White blood cell count >100 SEEN /hpf 0-5 [facility] Absolute lymphocyte countOrd ered By: Marissa Rivera on 07-08-2025 Lymphocytes Auto (Unsp spec) [#/Vol] 1.42 10*3/uL 0.83-4.51 [facility] Absolute neutrophil countOrd ered By: Marissa Rivera on 07-08-2025 Neutrophils (Bld) [#/Vol] 6.6 10*3/uL 2.0-7.7 [facility] Anion gap in Serum or Plasma Ordered By: Marissa Rivera on 07-08-2025 Anion gap [Moles/Vol] 9 mmol/L 5-15 [facility] Automated lymphocyte count a s percentage of total leukocytesOrdered By: Marissa Rivera on 07-08-2025 Lymphocytes/100 WBC Auto (Unsp spec) 16.1 % Low 19-41 [facility] BUN/creatinine ratioOrdered By: Marissa Rivera on 07-08-2025 Urea nitrogen/Creatinine [Mass ratio] 20.9 mg/mg High 09-13 [facility] Basic Metabolic Profile (BMP )on 07-08-2025 BUN/CRE 20.9 RATIO High 09-13 [facility] Comment on above: Performed By: #### L 503.5510, L500.3400, L500.2500, L100.0100 #### [facility] [address] [place], [address] Calcium [Mass/Vol] 9.1 mg/dL Normal 7.6-11.0 [facility] Comment on above: Performed By: #### L 503.5510, L500.3400, L500.2500, L100.0100 #### [facility] [address] [place], [address] Chloride [Moles/Vol] 102 mmol/L Normal 98-108 [facility] Comment on above: Performed By: #### L 503.5510, L500.3400, L500.2500, L100.0100 #### [facility] [address] [place], [address] CO2 [Moles/Vol] 23.9 mmol/L Normal 21.0-32.0 [facility] Comment on above: Performed By: #### L 503.5510, L500.3400, L500.2500, L100.0100 #### [facility] [address] [place], [address] Creatinine [Mass/Vol] 0.93 mg/dL Normal 0.70-1.20 [facility] Comment on above: Performed By: #### L 503.5510, L500.3400, L500.2500, L100.0100 #### [facility] [address] [place], [address] ECRCL 70.28 ml/min Normal 50-250 [facility] Comment on above: Performed By: #### L 503.5510, L500.3400, L500.2500, L100.0100 #### [facility] [address] [place], [address] GAP 9 Normal 5-15 [facility] Comment on above: Performed By: #### L 503.5510, L500.3400, L500.2500, L100.0100 #### [facility] [address] [place], [address] GFR/1.73 sq M.predicted among non-blacks MDRD (S/P/Bld) [Vol rate/Area] 85 mL/min/{1.73_m2} Normal >60 [facility] Comment on above: Result Comment: mL/m in/1.73m2 CKD-EPI Creatinine Equation (2020) Performed By: #### L 503.5510, L500.3400, L500.2500, L100.0100 #### [facility] [address] [place], [address] Glucose [Mass/Vol] 210 mg/dL High 70-99 [facility] Comment on above: Performed By: #### L 503.5510, L500.3400, L500.2500, L100.0100 #### [facility] [address] [place], [address] Potassium [Moles/Vol] 4.3 mmol/L Normal 3.3-5.1 [facility] Comment on above: Performed By: #### L 503.5510, L500.3400, L500.2500, L100.0100 #### [facility] [address] [place], [address] Sodium [Moles/Vol] 135 mmol/L Normal 133-145 [facility] Comment on above: Performed By: #### L 503.5510, L500.3400, L500.2500, L100.0100 #### [facility] [address] [place], [address] Urea nitrogen [Mass/Vol] 19 mg/dL Normal 4-19 [facility] Comment on above: Performed By: #### L 503.5510, L500.3400, L500.2500, L100.0100 #### [facility] [address] [place], [address] Basophil percentageOrdered B y: Marissa Rivera on 07-08-2025 Basophils/100 WBC (Bld) 0.2 % 0-1 [facility] Bilirubin Test strip Ql (U)O rdered By: Marissa Rivera on 07-08-2025 Bilirubin Ql (U) Negative Negative [facility] Blood manual differential co mment interpretation (narrative result)Ordered By: Marissa Rivera on 07-08-2025 Manual differential comment Refugio (Bld) [Interp] SCANNED [facility] CBC W/Diff, Automatedon 06-25 Anisocytosis Ql (Bld) 2+ Normal [facility] Comment on above: Performed By: #### L 503.5510, L500.3400, L500.2500, L100.0100 #### [facility] [address] [place], [address] SMEAR COMMENT SCANNED Normal [facility] Comment on above: Performed By: #### L 503.5510, L500.3400, L500.2500, L100.0100 #### [facility] [address] [place], [address] Carbon dioxide, total [Moles /volume] in Central venous bloodOrdered By: Marissa Rivera on 07-08-2025 CO2 [Moles/Vol] 23.9 mmol/L 21.0-32.0 [facility] Chloride assayOrdered By: Sophy Rivera on 07-08-2025 Chloride [Moles/Vol] 102 mmol/L 98-108 [facility] Emergency Department Summary on 07-08-2025 Emergency Department Summary [facility] Medical Records Department [address] [place] [address] Emergency Department Summary 07/08/25 MR#: [id number] Acct: [id number] Name: ITZEL ALONZO Rep #: [id number] : [id number] 75 From: Monty Clarke MD PCP: Carlene Haji TRAUMA COUNSELLOR-C Status:REG ER Location: ED HPI History of Present Illness Chief Complaint: Complaint Narrative Narrative: 75-year-old male with PMH of HTN, HLD, DM2, cirrhosis, anemia had a traumatic hip fracture with surgical fixation on 07/04/[address] Nuno Campbell. He was discharged to [facility]. He states this morning he started to have blood in his urine prompting his visit. He also states they are giving him Tylenol and it is not managing his hip pain well. He denies fever or chills, nausea or vomiting, or abdominal or flank pain. He was discharged on Eliquis 2.5 mg twice daily. [facility] Medical History CKD (chronic kidney [...] (Reviewed 07/04 (more content not included)... Normal [facility] Eosinophil percentageOrdered By: Marissa Rivera on 07-08-2025 Eosinophils/100 WBC (Bld) 0.9 % 0-5 [facility] Erythrocyte distribution wid th ratioOrdered By: Marissa Rivera on 07-08-2025 Erythrocyte distribution width (RBC) [Ratio] 22.5 % High 11.6-14.6 [facility] Erythrocyte distribution wid th standard deviationOrdered By: Marissa Rivera on 07-08-2025 Erythrocyte distribution width (RBC) [Ratio] 56.8 fl High 35.1-43.9 [facility] Glomerular filtration rate ( GFR) estimation/1.73 sq m using serum, plasma, or whole bOrdered By: Marissa Rivera on 07-08-2025 GFR/1.73 sq M.predicted among non-blacks MDRD (S/P/Bld) [Vol rate/Area] 85 mL/min/{1.73_m2} >60 [facility] Comment on above: mL/min/1.73m2 CKD-EP I Creatinine Equation (2020) Hematocrit Auto (Bld) [Volum e fraction]Ordered By: Marissa Rivera on 07-08-2025 Hematocrit (Bld) [Volume fraction] 26.8 % Low 40-54 [facility] Hemoglobin measurementOrdere d By: Marissa Rivera on 07-08-2025 Hemoglobin (Bld) [Mass/Vol] 8.6 g/dL Low 13.0-16.5 [facility] Immature granulocytes/100 WB C Auto (Bld)Ordered By: Marissa Rivera on 07-08-2025 Immature granulocytes/100 WBC (Bld) 0.300 % 0.0-0.9 [facility] Comment on above: IG% - Immature Granu locytes (promyelocytes, myelocytes and metamyelocytes) > 1% indicates that a LEFT SHIFT is Present. Ketones Test strip Ql (U)Ord ered By: Marissa Rivera on 07-08-2025 Ketones Ql (U) Negative Negative [facility] - Hematology and Cell countsOrdered By: Marissa Rivera on 07-08-2025 Anisocytosis Ql (Bld) 2+ [facility] MCV (mean corpuscular volume ) determinationOrdered By: Marissa Rivera on 07-08-2025 MCV (RBC) [Entitic vol] 71.5 fL Low 80-94 [facility] Mean corpuscular hemoglobin (MCH) determinationOrdered By: Marissa Rivera on 07-08-2025 MCH (RBC) [Entitic mass] 22.9 pg Low 27.0-32.0 [facility] Mean corpuscular hemoglobin concentration (MCHC) determinationOrdered By: Marissa Rivera on 07-08-2025 MCHC (RBC) [Mass/Vol] 32.1 g/dL 32-36 [facility] Mean platelet volume determi nationOrdered By: Marissa Rivera on 07-08-2025 Platelet mean volume (Bld) [Entitic vol] 9.6 fL 6.2-12.0 [facility] Microscopic analysis of urin e for red blood cells (RBC)Ordered By: Marissa Rivera on 07-08-2025 Microscopic analysis of urine for red blood cells (RBC) 10-25 SEEN /hpf 0-5 [facility] Monocyte percentageOrdered B y: Marissa Rivera on 07-08-2025 Monocytes/100 WBC (Bld) 7.2 % 0-10 [facility] Mucus LM Ql (Urine sed)Order ed By: Marissa iRvera on 07-08-2025 Mucus Ql (Urine sed) 0 SEEN /hpf [facility] Neutrophil percentageOrdered By: Marissa Rivera on 07-08-2025 Neutrophils/100 WBC (Bld) 75.3 % High 47-70 [facility] Nitrite Test strip Ql (U)Ord ered By: Marissa Rivera on 07-08-2025 Nitrite Ql (U) Negative Negative [facility] No Panel InformationOrdered By: Marissa Rivera on 07-08-2025 2+ [facility] Nucleated red blood cell per centageOrdered By: Marissa Rivera on 07-08-2025 Nucleated RBC/100 WBC (Bld) [Ratio] 0 % 0-5 [facility] Platelet countOrdered By: Sophy Rivera on 07-08-2025 Platelets (Bld) [#/Vol] 250 10*3/uL 150-450 [facility] Potassium measurement (mass/ volume)Ordered By: Marissa Rivera on 07-08-2025 Potassium (Unsp spec) [Mass/Vol] 4.3 mmol/L 3.3-5.1 [facility] Protein Test strip Ql (U)Ord ered By: Marissa Rivera on 07-08-2025 Protein Ql (U) 100 mg/dl High Negative [facility] RBC Auto (Bld) [#/Vol]Ordere d By: Marissa Rivera on 07-08-2025 RBC (Bld) [#/Vol] 3.75 10*6/uL Low 4.6-6.2 [facility] Serum creatinine measurement (mass/volume)Ordered By: Marissa Rivera on 07-08-2025 Creatinine [Mass/Vol] 0.93 mg/dL 0.70-1.20 [facility] Serum glucose measurement (m ass/volume)Ordered By: Marissa Rivera on 07-08-2025 Glucose [Mass/Vol] 210 mg/dL High 70-99 [facility] Serum or plasma calcium ivania urement (mass/volume)Ordered By: Marissacarlie Rivera on 07-08-2025 Calcium [Mass/Vol] 9.1 mg/dL 7.6-11.0 [facility] Serum or plasma urea nitroge n measurement (mass/volume)Ordered By: Marissa Rivera on 07-08-2025 Urea nitrogen [Mass/Vol] 19 mg/dL 4-19 [facility] Sodium levelOrdered By: Marissa Rivera on 07-08-2025 Sodium [Moles/Vol] 135 mmol/L 133-145 [facility] Squamous epithelial cells de tection in urine sediment by light microscopyOrdered By: Marissa Rivera on 07-08-2025 Epithelial cells.squamous LM Ql (Urine sed) 0 SEEN /hpf 0-5 [facility] Urinalysis, Completeon 07-08 RBC 10-25 SEEN Normal 0-5 [facility] Comment on above: Order Comment: CLEAN CATCH Performed By: #### L 400.0001 #### [facility] [address] [place], [address] BACTERIA 0 SEEN Normal None Seen [facility] Comment on above: Order Comment: CLEAN CATCH Performed By: #### L 400.0001 #### [facility] [address] [place], [address] EPI,SQUAMOUS 0 SEEN Normal 0-5 [facility] Comment on above: Order Comment: CLEAN CATCH Performed By: #### L 400.0001 #### [facility] [address] [place], [address] Mucus Ql (Urine sed) 0 SEEN Normal [facility] Comment on above: Order Comment: CLEAN CATCH Performed By: #### L 400.0001 #### [facility] [address] [place], [address] WBC 0 SEEN Normal 0-5 [facility] Comment on above: Order Comment: CLEAN CATCH Performed By: #### L 400.0001 #### [facility] [place], [address] Urine clarityOrdered By: Ira Rivera on 07-08-2025 Clarity (U) Clear Clear [facility] Urine color determinationOrd ered By: Marissa Rivera on 07-08-2025 Color (U) Yellow Yellow [facility] Urine glucose detectionOrder ed By: Marissa Rivera on 07-08-2025 Glucose Ql (U) 100 mg/dl High Normal [facility] Urine leukocyte esterase det ection by dipstickOrdered By: Marissa Rivera on 07-08-2025 Leukocyte esterase Test strip Ql (U) Negative Negative [facility] Urine pHOrdered By: Marissa rowland on 07-08-2025 pH (U) 6.5 [pH] 5.0 - 8.0 [facility] Urine sediment bacteria coun t by microscopy (number/high power field)Ordered By: Marissa Rivera on 07-08-2025 Bacteria LM.HPF (Urine sed) [#/Area] 0 /[HPF] None Seen [facility] Urine specific gravity measu rementOrdered By: Marissa Rivera on 07-08-2025 Specific gravity (U) [Rel density] 1.010 1.002-1.030 [facility] Urine urobilinogen measureme ntOrdered By: Marissa Rivera on 07-08-2025 Urobilinogen Ql (U) Normal mg/dl Normal [facility] White blood cell (WBC) count Ordered By: Marissa Rivera on 07-08-2025 WBC (Bld) [#/Vol] 8.8 10*3/uL 4.4-11.0 [facility] White blood cell countOrdere d By: Marissa Rivera on 07-08-2025 White blood cell count 0 SEEN /hpf 0-5 [facility] Absolute lymphocyte countOrd ered By: Uche Felix on 07-07-2025 Lymphocytes Auto (Unsp spec) [#/Vol] 1.99 10*3/uL 0.83-4.51 [facility] Absolute neutrophil countOrd ered By: Uche Felix on 07-07-2025 Neutrophils (Bld) [#/Vol] 7.5 10*3/uL 2.0-7.7 [facility] Anion gap in Serum or Plasma Ordered By: Uche Felix on 07-07-2025 Anion gap [Moles/Vol] 9 mmol/L 5-15 [facility] Automated lymphocyte count a s percentage of total leukocytesOrdered By: Uche Felix on 07-07-2025 Lymphocytes/100 WBC Auto (Unsp spec) 19.0 % [facility] BUN/creatinine ratioOrdered By: Uche Felix on 07-07-2025 Urea nitrogen/Creatinine [Mass ratio] 23.6 mg/mg High 09-13 [facility] Basic Metabolic Profile (BMP )on 07-07-2025 BUN/CRE 23.6 RATIO High 09-13 [facility] Comment on above: Performed By: #### L 503.5510, L500.3400, L500.2500, L100.0100 #### [facility] [address] [place], [address] Calcium [Mass/Vol] 8.7 mg/dL Normal 7.6-11.0 [facility] Comment on above: Performed By: #### L 503.5510, L500.3400, L500.2500, L100.0100 #### [facility] [address] [place], [address] Chloride [Moles/Vol] 104 mmol/L Normal 98-108 [facility] Comment on above: Performed By: #### L 503.5510, L500.3400, L500.2500, L100.0100 #### [facility] [address] [place], [address] CO2 [Moles/Vol] 23.0 mmol/L Normal 21.0-32.0 [facility] Comment on above: Performed By: #### L 503.5510, L500.3400, L500.2500, L100.0100 #### [facility] [address] [place], [address] Creatinine [Mass/Vol] 0.90 mg/dL Normal 0.70-1.20 [facility] Comment on above: Performed By: #### L 503.5510, L500.3400, L500.2500, L100.0100 #### [facility] [address] [place], [address] ECRCL 58.14 ml/min Normal 50-250 [facility] Comment on above: Performed By: #### L 503.5510, L500.3400, L500.2500, L100.0100 #### [facility] [address] [place], [address] GAP 9 Normal 5-15 [facility] Comment on above: Performed By: #### L 503.5510, L500.3400, L500.2500, L100.0100 #### [facility] [address] [place], [address] GFR/1.73 sq M.predicted among non-blacks MDRD (S/P/Bld) [Vol rate/Area] 88 mL/min/{1.73_m2} Normal >60 [facility] Comment on above: Result Comment: mL/m in/1.73m2 CKD-EPI Creatinine Equation (2020) Performed By: #### L 503.5510, L500.3400, L500.2500, L100.0100 #### [facility] [address] [place], [address] Glucose [Mass/Vol] 186 mg/dL High 70-99 [facility] Comment on above: Performed By: #### L 503.5510, L500.3400, L500.2500, L100.0100 #### [facility] [address] [place], [address] Potassium [Moles/Vol] 4.4 mmol/L Normal 3.3-5.1 [facility] Comment on above: Performed By: #### L 503.5510, L500.3400, L500.2500, L100.0100 #### [facility] [address] [place], [address] Sodium [Moles/Vol] 136 mmol/L Normal 133-145 [facility] Comment on above: Performed By: #### L 503.5510, L500.3400, L500.2500, L100.0100 #### [facility] [address] [place], [address] Urea nitrogen [Mass/Vol] 21 mg/dL High 4-19 [facility] Comment on above: Performed By: #### L 503.5510, L500.3400, L500.2500, L100.0100 #### [facility] [address] [place], [address] Basophil percentageOrdered B y: Uche Felix on 07-07-2025 Basophils/100 WBC (Bld) 0.1 % 0-1 [facility] Bedside Glucoseon 07-07-2025 FINGERSTICK GLU 213 mg/dL High 74-106 [facility] Comment on above: Result Comment: BELLA GEMENT OF PATIENT CARE PER NURSING PROTOCOL Performed By: #### L 501.080 #### [facility] [address] [place], [address] FINGERSTICK GLU 208 mg/dL High 74-106 [facility] Comment on above: Result Comment: BELLA GEMENT OF PATIENT CARE PER NURSING PROTOCOL Performed By: #### L 501.080 #### [facility] [address] [place], [address] FINGERSTICK GLU 185 mg/dL High 74-106 [facility] Comment on above: Result Comment: BELLA GEMENT OF PATIENT CARE PER NURSING PROTOCOL Performed By: #### L 501.080 #### [facility] [address] [place], [address] Blood polychromasia detectio n by light microscopyOrdered By: Uche Felix on 07-07-2025 Polychromasia LM Ql (Bld) 1+ [facility] CBC W/Diff, Automatedon 06-25 Anisocytosis Ql (Bld) 1+ Normal [facility] Comment on above: Performed By: #### L 503.5510, L500.3400, L500.2500, L100.0100 #### [facility] [address] [place], [address] PLT EST ADEQUATE Normal ADEQ [facility] Comment on above: Performed By: #### L 503.5510, L500.3400, L500.2500, L100.0100 #### [facility] [address] [place], [address] POLYCHROMASIA 1+ Normal [facility] Comment on above: Performed By: #### L 503.5510, L500.3400, L500.2500, L100.0100 #### [facility] [address] [place], [address] Carbon dioxide, total [Moles /volume] in Central venous bloodOrdered By: Uche Felix on 07-07-2025 CO2 [Moles/Vol] 23.0 mmol/L 21.0-32.0 [facility] Chloride assayOrdered By: Jose De Jesus Felix on 07-07-2025 Chloride [Moles/Vol] 104 mmol/L 98-108 [facility] Eosinophil percentageOrdered By: Uche Felix on 07-07-2025 Eosinophils/100 WBC (Bld) 1.3 % 0-5 [facility] Erythrocyte distribution wid th ratioOrdered By: Uche Felix on 07-07-2025 Erythrocyte distribution width (RBC) [Ratio] 21.1 % High 11.6-14.6 [facility] Erythrocyte distribution wid th standard deviationOrdered By: Uche Felix on 07-07-2025 Erythrocyte distribution width (RBC) [Ratio] 54.1 fl High 35.1-43.9 [facility] Glomerular filtration rate ( GFR) estimation/1.73 sq m using serum, plasma, or whole bOrdered By: Uche Felix on 07-07-2025 GFR/1.73 sq M.predicted among non-blacks MDRD (S/P/Bld) [Vol rate/Area] 88 mL/min/{1.73_m2} >60 [facility] Comment on above: mL/min/1.73m2 CKD-EP I Creatinine Equation (2020) [facility] deOrdered By: Anthony Salgado on 07-07-2025 Glucose [Mass/Vol] 213 mg/dL High 74-106 [facility] Comment on above: MANAGEMENT OF PATIEN T CARE PER NURSING PROTOCOL Hematocrit Auto (Bld) [Volum e fraction]Ordered By: Uche Felix on 07-07-2025 Hematocrit (Bld) [Volume fraction] 25.6 % Low 40-54 [facility] Hemoglobin measurementOrdere d By: Uche Felix on 07-07-2025 Hemoglobin (Bld) [Mass/Vol] 8.0 g/dL Low 13.0-16.5 [facility] Immature granulocytes/100 WB C Auto (Bld)Ordered By: Uche Felix on 07-07-2025 Immature granulocytes/100 WBC (Bld) 0.400 % 0.0-0.9 [facility] Comment on above: IG% - Immature Granu locytes (promyelocytes, myelocytes and metamyelocytes) > 1% indicates that a LEFT SHIFT is Present. Laboratory - Hematology and Cell countsOrdered By: Uche Felix on 07-07-2025 Anisocytosis Ql (Bld) 1+ [facility] MCV (mean corpuscular volume ) determinationOrdered By: Uche Felix on 07-07-2025 MCV (RBC) [Entitic vol] 71.3 fL Low 80-94 [facility] Mean corpuscular hemoglobin (MCH) determinationOrdered By: Uche Felix on 07-07-2025 MCH (RBC) [Entitic mass] 22.3 pg Low 27.0-32.0 [facility] Mean corpuscular hemoglobin concentration (MCHC) determinationOrdered By: Uche Felix on 07-07-2025 MCHC (RBC) [Mass/Vol] 31.3 g/dL Low 32-36 [facility] Mean platelet volume determi nationOrdered By: Uche Felix on 07-07-2025 Platelet mean volume (Bld) [Entitic vol] 9.7 fL 6.2-12.0 [facility] Monocyte percentageOrdered B y: Uche Felix on 07-07-2025 Monocytes/100 WBC (Bld) 7.8 % 0-10 [facility] Neutrophil percentageOrdered By: Uche Felix on 07-07-2025 Neutrophils/100 WBC (Bld) 71.4 % High 47-70 [facility] No Panel InformationOrdered By: Uche Felix on 07-07-2025 1+ [facility] Nucleated red blood cell per centageOrdered By: Uche Felix on 07-07-2025 Nucleated RBC/100 WBC (Bld) [Ratio] 0 % 0-5 [facility] Platelet countOrdered By: Jose De Jesus Felix on 07-07-2025 Platelets (Bld) [#/Vol] 234 10*3/uL 150-450 [facility] Platelet estimateOrdered By: Uche Felix on 07-07-2025 Platelets LM Ql (Bld) ADEQUATE ADEQ [facility] Potassium measurement (mass/ volume)Ordered By: Uche Felix on 07-07-2025 Potassium (Unsp spec) [Mass/Vol] 4.4 mmol/L 3.3-5.1 [facility] RBC Auto (Bld) [#/Vol]Ordere d By: Uche Felix on 07-07-2025 RBC (Bld) [#/Vol] 3.59 10*6/uL Low 4.6-6.2 [facility] Serum creatinine measurement (mass/volume)Ordered By: Uche Felix on 07-07-2025 Creatinine [Mass/Vol] 0.90 mg/dL 0.70-1.20 [facility] Serum glucose measurement (m ass/volume)Ordered By: Uche Felix on 07-07-2025 Glucose [Mass/Vol] 186 mg/dL High 70-99 [facility] Serum or plasma calcium ivania urement (mass/volume)Ordered By: Uche Felix on 07-07-2025 Calcium [Mass/Vol] 8.7 mg/dL 7.6-11.0 [facility] Serum or plasma urea nitroge n measurement (mass/volume)Ordered By: Uche Felix on 07-07-2025 Urea nitrogen [Mass/Vol] 21 mg/dL High 4-19 [facility] Sodium levelOrdered By: Tj Felix on 07-07-2025 Sodium [Moles/Vol] 136 mmol/L 133-145 [facility] White blood cell (WBC) count Ordered By: Uche Felix on 07-07-2025 WBC (Bld) [#/Vol] 10.5 10*3/uL 4.4-11.0 [facility] Basic Metabolic Profile (BMP )on 07-06-2025 BUN/CRE 21.0 RATIO High 10-20 [facility] Comment on above: Performed By: #### L 400.0001 #### [facility] [address] [place], [address] Calcium [Mass/Vol] 8.6 mg/dL Normal 7.6-11.0 [facility] Comment on above: Performed By: #### L 400.0001 #### [facility] [address] [place], [address] Chloride [Moles/Vol] 103 mmol/L Normal 98-108 [facility] Comment on above: Performed By: #### L 400.0001 #### [facility] [address] [place], [address] CO2 [Moles/Vol] 20.0 mmol/L Low 21.0-32.0 [facility] Comment on above: Performed By: #### L 400.0001 #### [facility] [address] [place], [address] Creatinine [Mass/Vol] 1.03 mg/dL Normal 0.70-1.20 [facility] Comment on above: Performed By: #### L 400.0001 #### [facility] [address] [place], [address] ECRCL 50.29 ml/min Normal 50-250 [facility] Comment on above: Performed By: #### L 400.0001 #### [facility] [address] [place], [address] GAP 11 Normal 5-15 [facility] Comment on above: Performed By: #### L 400.0001 #### [facility] [address] [place], [address] GFR/1.73 sq M.predicted among non-blacks MDRD (S/P/Bld) [Vol rate/Area] 75 mL/min/{1.73_m2} Normal >60 [facility] Comment on above: Result Comment: mL/m in/1.73m2 CKD-EPI Creatinine Equation (2020) Performed By: #### L 400.0001 #### [facility] [address] [place], [address] Glucose [Mass/Vol] 141 mg/dL High 70-99 [facility] Comment on above: Performed By: #### L 400.0001 #### [facility] [address] [facility] [place], [address] Potassium [Moles/Vol] 3.7 mmol/L Normal 3.3-5.1 [facility] Comment on above: Performed By: #### L 400.0001 #### [facility] [address] [place], [address] Sodium [Moles/Vol] 134 mmol/L Normal 133-145 [facility] Comment on above: Performed By: #### L 400.0001 #### [facility] [address] [place], [address] Urea nitrogen [Mass/Vol] 22 mg/dL High 4-19 [facility] Comment on above: Performed By: #### L 400.0001 #### [facility] [address] [place], [address] Bedside Glucoseon 07-06-2025 FINGERSTICK GLU 183 mg/dL High [address] [place] [address] Comment on above: Result Comment: BELLA GEMENT OF PATIENT CARE PER NURSING PROTOCOL Performed By: #### L 503.5510, L500.3400, L500.2500, L100.0100 #### [facility] [address] [place], [address] FINGERSTICK GLU 213 mg/dL High [address] [place] [address] Comment on above: Result Comment: BELLA GEMENT OF PATIENT CARE PER NURSING PROTOCOL Performed By: #### L 400.0001 #### [facility] [address] [place], [address] FINGERSTICK GLU 189 mg/dL High [address] [place] [address] Comment on above: Result Comment: BELLA GEMENT OF PATIENT CARE PER NURSING PROTOCOL Performed By: #### L 503.5510, L500.3400, L500.2500, L100.0100 #### [facility] [address] [place], [address] FINGERSTICK GLU 142 mg/dL High [facility] Comment on above: Result Comment: BELLA GEMENT OF PATIENT CARE PER NURSING PROTOCOL Performed By: #### L 503.5510, L500.3400, L500.2500, L100.0100 #### [facility] [address] [place], [address] Blood manual differential co mment interpretation (narrative result)Ordered By: Uche Felix on 07-06-2025 Manual differential comment Refugio (Bld) [Interp] See comment [facility] Comment on above: ANISOCYTOSIS CBC W/Diff, Automatedon 06-25 SMEAR COMMENT Normal [facility] Comment on above: Result Comment: ANIS OCYTOSIS Performed By: #### L 400.0001 #### [facility] [address] [place], [address] Anisocytosis Ql (Bld) 1+ Normal [facility] Comment on above: Performed By: #### L 400.0001 #### [facility] [address] [place], [address] BASO STIPPLING RARE Normal [facility] Comment on above: Performed By: #### L 400.0001 #### [facility] [address] [place], [address] OVALOCYTE RARE Normal [facility] Comment on above: Performed By: #### L 400.0001 #### [facility] [address] [place], [address] POLYCHROMASIA 1+ Normal [facility] Comment on above: Performed By: #### L 400.0001 #### [facility] [address] [place], [address] Erythrocyte basophilic stipp ling detectionOrdered By: Uche Felix on 07-06-2025 Basophilic stippling LM Ql (Bld) [facility] Ovalocyte detectionOrdered B y: Uche Felix on 07-06-2025 Ovalocytes LM Ql (Bld) RARE [facility] Surgical pathology reportOrd ered By: Alfredito Dubon on 07-06-2025 Surgical pathology study [facility] Basic Metabolic Profile (BMP )on 07-05-2025 BUN/CRE 16.8 RATIO Normal 10-20 [facility] Comment on above: Performed By: #### L 400.0001 #### [facility] [address] [place], [address] Calcium [Mass/Vol] 9.1 mg/dL Normal 7.6-11.0 [facility] Comment on above: Performed By: #### L 400.0001 #### [facility] [address] [place], [address] Chloride [Moles/Vol] 102 mmol/L Normal 98-108 [facility] Comment on above: Performed By: #### L 400.0001 #### [facility] [address] [place], [address] CO2 [Moles/Vol] 21.6 mmol/L Normal 21.0-32.0 [facility] Comment on above: Performed By: #### L 400.0001 #### [facility] [address] [place], [address] Creatinine [Mass/Vol] 1.14 mg/dL Normal 0.70-1.20 [facility] Comment on above: Performed By: #### L 400.0001 #### [facility] [address] [place], [address] ECRCL 46.13 ml/min Low 50-250 [facility] Comment on above: Performed By: #### L 400.0001 #### [facility] [address] [place], [address] GAP 12 Normal 5-15 [facility] Comment on above: Performed By: #### L 400.0001 #### [facility] [address] [place], [address] GFR/1.73 sq M.predicted among non-blacks MDRD (S/P/Bld) [Vol rate/Area] 66 mL/min/{1.73_m2} Normal >60 [facility] Comment on above: Result Comment: mL/m in/1.73m2 CKD-EPI Creatinine Equation (2020) Performed By: #### L 400.0001 #### [facility] [address] [place], [address] Glucose [Mass/Vol] 178 mg/dL High 70-99 [facility] Comment on above: Performed By: #### L 400.0001 #### [facility] [address] [place], [address] Potassium [Moles/Vol] 3.8 mmol/L Normal 3.3-5.1 [facility] Comment on above: Performed By: #### L 400.0001 #### [facility] [address] [place], [address] Sodium [Moles/Vol] 135 mmol/L Normal 133-145 [facility] Comment on above: Performed By: #### L 400.0001 #### [facility] [address] [place], [address] Urea nitrogen [Mass/Vol] 19 mg/dL Normal 4-19 [facility] Comment on above: Performed By: #### L 400.0001 #### [facility] [address] [place], [address] Bedside Glucoseon 07-05-2025 FINGERSTICK GLU 214 mg/dL High 74-106 [facility] Comment on above: Result Comment: BELLA GEMENT OF PATIENT CARE PER NURSING PROTOCOL Performed By: #### L 501.080 #### [facility] [address] [place], [address] FINGERSTICK GLU 232 mg/dL High 74-106 [facility] Comment on above: Result Comment: BELLA GEMENT OF PATIENT CARE PER NURSING PROTOCOL Performed By: #### L 503.5510, L500.3400, L500.2500, L100.0100 #### [facility] [address] [place], [address] FINGERSTICK GLU 290 mg/dL High 74-106 [facility] Comment on above: Result Comment: BELLA GEMENT OF PATIENT CARE PER NURSING PROTOCOL Performed By: #### L 400.0001 #### [facility] [address] [place], [address] FINGERSTICK GLU 182 mg/dL High 74-106 [facility] Comment on above: Result Comment: BELLA GEMENT OF PATIENT CARE PER NURSING PROTOCOL Performed By: #### L 501.080 #### [facility] [address] [place], [address] CBC W/Diff, Automatedon 06-25 Anisocytosis Ql (Bld) 1+ Normal [facility] Comment on above: Performed By: #### L 500.2500, L501.5200, L100.0100, L501.2300 #### [facility] [address] [place], [address] Electrocardiogram reportOrde red By: Kevin Joshi on 07-05-2025 EKG study [facility] Cardiovascular Services [address] [place] [address] 12 Lead EKG 07/03/25 2142 MR#: [id number] Acct: [id number] Name: ITZEL ALONZO Rep #:[id number] : 1950 75 From: Kevin Joshi MD Attending Dr: Dr. Anthony Salgado MD Status: ADM IN Ordering Dr: Steven Tejeda DO Date: 0 07/03/25 [place] [facility] [place] M AA Admitted: 07/03/25 Test Reason [...] Abnormal ECG Confirmed by KEVIN JOSHI MD ([id number]), photograph editor JOSE NYE ([id number]) on 07/05/2025 1:12:48 PM Referred By: Confirmed By: KEVIN JOSHI MD 07/05/25 1312 Date _ Kevin Joshi MD CC: SID Haji; Dr. Steven Tejeda DO; Dr. Anthony Salgado MD ~ Signed [facility] Other Phone: [id number] 07-05-2025 [facility] Medical Records Department [address] [place] [address] Anesthesia Postop Eval II 07/05/25610 MR#: [id number] Acct: [id number] Name: ITZEL ALONZO Rep #: [id number] : 1950 75 From: Kayden Merino MD PCP: SID Haro Status:ADM IN Y Race: AA Location: [place] [address] Anesthesia Postop Eval I Sum Postop Eval Completion status Anesthesia document: Postop Eval 1 completed: Yes Anesthesia Postop Eval I Summary Anesthesia Postop Eval I Summary: Anesthesia Postop Eval I: Assessment Summary Airway patent Yes 07/04/25 11:46 [employer]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 Spontaneous unlabored Yes 07/04/25 11:46 [employer]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 respirations Mental status Awake 07/04/25 11:46 [employer]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 nausea No 07/04/25 11:46 [employer]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 Vomiting No 07/04/25 11:46 [employer]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 Anesthesia Postop Eval I: Fluid Summary Crystalloid volume administer 500 07/04/25 11:46 [employer]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 (ml) Colloids volume administered ( ml) Blood Product volume administered (ml) Total IV fluid infused 500 07/04/25 11:46 [employer]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 Anesthesia Postop Eval I: Summary Notes Anesthesia Complication No 07/04/25 11:46 [employer]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, [address] Magnesium measurement (mass/ volume)Ordered By: Uche Felix on 07-05-2025 Magnesium (Unsp spec) [Mass/Vol] 2.0 mg/dL 1.5-2.2 [facility] Phosphoruson 07-05-2025 Phosphate [Mass/Vol] 3.0 mg/dL Normal 2.7-4.5 [facility] Comment on above: Performed By: #### L 400.0001 #### [facility] [address] [place], [address] BRCon 07-04-2025 RC Normal [facility] Comment on above: Result Comment: [id number] OP RC TRANSFUSED 07/06/25 1234 Performed By: #### L 500.2500, L501.5200, L100.0100, L501.2300 #### [facility] [address] [place], [address] Bedside Glucoseon 07-04-2025 FINGERSTICK GLU 208 mg/dL High 74-106 [facility] Comment on above: Result Comment: BELLA GEMENT OF PATIENT CARE PER NURSING PROTOCOL Performed By: #### L 503.5510, L500.3400, L500.2500, L100.0100 #### [facility] [address] [place], [address] FINGERSTICK GLU 215 mg/dL High 74-106 [facility] Comment on above: Result Comment: BELLA GEMENT OF PATIENT CARE PER NURSING PROTOCOL Performed By: #### L 400.0001 #### [facility] [address] [place], [address] FINGERSTICK GLU 174 mg/dL High 74-106 [facility] Comment on above: Result Comment: BELLA GEMENT OF PATIENT CARE PER NURSING PROTOCOL Performed By: #### L 400.0001 #### [facility] [address] [place], [address] FINGERSTICK GLU 166 mg/dL High 74-106 [facility] Comment on above: Result Comment: BELLA GEMENT OF PATIENT CARE PER NURSING PROTOCOL Performed By: #### L 400.0001 #### [facility] [address] [place], [address] FINGERSTICK GLU 193 mg/dL High 74-106 [facility] Comment on above: Result Comment: BELLA GEMENT OF PATIENT CARE PER NURSING PROTOCOL Performed By: #### L 400.0001 #### [facility] [address] [place], [address] Bilirubin, totalOrdered By: Johanne Evans on 07-04-2025 Bilirubin [Mass/Vol] 0.45 mg/dL 0.00-1.30 [facility] CBC W/Diff, Automatedon 06-25 Anisocytosis Ql (Bld) 1+ Normal [facility] Comment on above: Performed By: #### L 501.080 #### [facility] [address] [place], [address] PLT EST ADEQUATE Normal ADEQ [facility] Comment on above: Performed By: #### L 501.080 #### [facility] [address] [place], [address] Comprehensive Metabolic Prof ilon 07-04-2025 Albumin [Mass/Vol] 3.1 g/dL Low 3.4-4.8 [facility] Comment on above: Performed By: #### L 501.080 #### [facility] [address] [place], [address] Albumin/Globulin [Mass ratio] 0.5 {ratio} Low 0.9-2.4 [facility] Comment on above: Performed By: #### L 501.080 #### [facility] [address] [place], [address] ALK PHOS 124 U/L Normal 40-129 [facility] Comment on above: Performed By: #### L 501.080 #### [facility] [address] [place], [address] ALT [Catalytic activity/Vol] 9 U/L Normal <=46 [facility] Comment on above: Performed By: #### L 501.080 #### [facility] [address] [place], [address] AST [Catalytic activity/Vol] 18 U/L Normal <=37 [facility] Comment on above: Performed By: #### L 501.080 #### [facility] [address] [place], [address] Bilirubin [Mass/Vol] 0.45 mg/dL Normal 0.00-1.30 [facility] Comment on above: Performed By: #### L 501.080 #### [facility] [address] [place], [address] BUN/CRE 16.4 RATIO Normal 10-20 [facility] Comment on above: Performed By: #### L 501.080 #### [facility] [address] [place], [address] Calcium [Mass/Vol] 9.2 mg/dL Normal 7.6-11.0 [facility] Comment on above: Performed By: #### L 501.080 #### [facility] [address] [place], [address] Chloride [Moles/Vol] 103 mmol/L Normal 98-108 [facility] Comment on above: Performed By: #### L 501.080 #### [facility] [address] [place], [address] CO2 [Moles/Vol] 19.6 mmol/L Low 21.0-32.0 [facility] Comment on above: Performed By: #### L 501.080 #### [facility] [address] [place], [address] Creatinine [Mass/Vol] 0.78 mg/dL Normal 0.70-1.20 [facility] Comment on above: Performed By: #### L 501.080 #### [facility] [address] [place], [address] ECRCL 63.55 ml/min Normal 50-250 [facility] Comment on above: Performed By: #### L 501.080 #### [facility] [address] [place], [address] GAP 12 Normal 5-15 [facility] Comment on above: Performed By: #### L 501.080 #### [facility] [address] [place], [address] GFR/1.73 sq M.predicted among non-blacks MDRD (S/P/Bld) [Vol rate/Area] 92 mL/min/{1.73_m2} Normal >60 [facility] Comment on above: Result Comment: mL/m in/1.73m2 CKD-EPI Creatinine Equation (2020) Performed By: #### L 501.080 #### [facility] [address] [place], [address] Globulin (S) [Mass/Vol] 5.8 g/dL High 2.2-4.2 [facility] Comment on above: Performed By: #### L 501.080 #### [facility] [address] [place], [address] Glucose [Mass/Vol] 174 mg/dL High 70-99 [facility] Comment on above: Performed By: #### L 501.080 #### [facility] [address] [place], [address] Potassium [Moles/Vol] 4.2 mmol/L Normal 3.3-5.1 [facility] Comment on above: Performed By: #### L 501.080 #### [facility] [address] [place], [address] Sodium [Moles/Vol] 134 mmol/L Normal 133-145 [facility] Comment on above: Performed By: #### L 501.080 #### [facility] [address] [place], [address] T PROT 8.9 g/dL High 5.9-8.4 [facility] Comment on above: Performed By: #### L 501.080 #### [facility] [address] [place], [address] Urea nitrogen [Mass/Vol] 13 mg/dL Normal 4-19 [facility] Comment on above: Performed By: #### L 501.080 #### [facility] [address] [place], [address] Consultation - Orthopedicson 07-04-2025 Consultation - Orthopedics [facility] Medical Records Department [address] [place] [address] Consultation - Orthopedics 07/04/25 0959 MR#: [id number] Acct: [id number] Name: ITZEL ALONZO Rep #: [id number] : 1950 75 From: Nuno Campbell MD PCP: Carlene Haij TRAUMA COUNSELLOR-C Status:ADM IN [place] [id number] HPI Consult Data Date of Consult: 07/04/25 [...] consulted. Patient admitted to the medical service. [facility] Medical History CKD (chronic kidney disease), [...] intake: ne (more content not included)... Normal [facility] Decalcification bone/plaqueo n 07-04-2025 Decalcification bone/plaque -------- Patient Age/Sex Location Account Attending Physician -------- ITZEL ALONZO 75/M MS3 [id number] Dr. Anthony Salgado MD -------- Specimen: [id number] Received: 07/05/25 Status: CASIE Perez Num: [id number] Spec Type: FEM HEAD Subm Dr: Dr. [...] Entirely submitted in 3 cassettes, following decalcification. NC 07/05/2025 CPT:30724,75695 -------- Patient Age/Sex Location Account Attending Physician -------- ITZEL ALONZO 75/M MS3 [id number] Dr. Anthony Salgado MD -------- Signed (signature on file) Dr. Alfredito Sue MD 07/06/25 1606 -------- Normal [facility] Comment on above: Performed By: #### L 400.0001 #### [facility] [address] [place], [place], [address] Ferritinon 07-04-2025 Ferritin [Mass/Vol] 640 ng/mL High 37-417 [facility] Comment on above: Performed By: #### L 501.080 #### [facility] [address] [place], [place], [address] Hemoglobin A1con 07-04-2025 HbA1c (Bld) [Mass fraction] 8.2 % High <=5.6 [facility] Comment on above: Result Comment: Norm al < 5.7 % Prediabetic 5.7 - 6.4 % Diabetic >or= 6.5 % Please note range changes. Performed By: #### L 501.080 #### [facility] [address] [place], [place], [address] Hemoglobin A1c percentageOrd ered By: Kayden Merino on 07-04-2025 HbA1c (Bld) [Mass fraction] 8.2 % High <5.7 [facility] Comment on above: Normal < 5.7 % Predi abetic 5.7 - 6.4 % Diabetic >or= 6.5 % Please note range changes. Hip Min 2 Views (Portable)on 07-04-2025 Hip Min 2 Views (Portable) [facility] Imaging Services [address] [place] [address] Hip Min 2 Views (Portable) MR#: [id number] Acct: [id number] Name: ITZEL ALONZO Rep #: [id number] : 1950 M 75 From: Yesica Pedroza MD PCP: LUIS MIGUEL HaroC Status: ADM IN Study: Hip Min 2 Views (Portable) Date of Exam: 07/04 Exam# [id number] Ordering Dr: Nuno Campbell MD PROCEDURE: HIP [...] fracture with no acute complications. Reading Location: [facility] CC: TRAUMA COUNSELLOR-C Carlene Haji; Dr. Nuno Campbell MD Route Returner: Signed Normal [facility] International normalized rat io (INR) calculationOrdered By: Kayden Merino on 07-04-2025 INR Coag (Bld) [Relative time] 1.3 {INR} [facility] Iron measurement (mass/mass) Ordered By: Johanne Evans on 07-04-2025 Iron (Unsp spec) [Mass/Mass] 17 ug/dL Low 65-175 [facility] Iron+Iron Binding Capacityon 07-04-2025 TIBC 163 ug/dL Low 250-450 [facility] Comment on above: Performed By: #### L 501.080 #### [facility] [address] [place], [address] Laboratory - Chemistry and C hemistry - challengeOrdered By: Johanne Evans on 07-04-2025 AST [Catalytic activity/Vol] 18 U/L <38 [facility] MR/POSTOP.ANEon 07-04-2025 [facility] Department [address] [place] [address] Anesthesia Postop Eval I 07/04/25 1146 MR#: [id number] Acct: [id number] Name: ITZEL ALONZO Rep #: [id number] : 1950 75 From: Kye Luu CRNA PCP: SID Haro Status:ADM IN Y Race: AA Location: [place] [id number] Anesthesia: Postop Eval I Current Vital Signs [...] CRNA Cosigner Signature: Date CC: Signed Normal [facility] No Panel InformationOrdered By: Johanne Evans on 07-04-2025 Unsaturated Iron Binding Capacity 146 ug/dL Low 228-428 [facility] 18 U/L <38 [facility] 146 ug/dL Low 228-428 [facility] Operative Reporton Operative Report [facility] Medical Records Department [address] [place] [address] Operative Report 07/04/25 1129 MR#: [id number] Acct: [id number] Name: ITZEL ALONZO Rep #: [id number] : 1950 75 From: Nuno Campbell MD PCP: SID Haro Status:ADM IN Location: [place] [id number] Problems Associated Problem List Diagnoses (1) Closed intertrochanteric fracture of right hip: Operative Report (Standard) Operative Information Date of Procedure: 07/04/25 Pre-Operative Diagnosis: Right hip intertrochanteric fracture Post-Operative Diagnosis: Same Surgery/Procedure Performed: Open reduction internal fixation right hip, long gamma nail hydroelectric 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 Nuno Campbell [employer] Principal: Silvia Butler PA-C Anesthesia: spinal Medications: Ancef [...] underwent standard reduction, internal fixation using a [place] long gamma 3 nail. Nail size was 11 mm x 420. 125 degree neck angle. Proximal cross lock screw was 110. Distal cross lock screw was 42.5. X-rays taken throughout. graduate teaching assistant, physician junior sales assistant, was utilized throughout the entire procedure. [...] operating table with the help of the junior sales assistant. With the help of the junior sales assistant patient was prepped and padded for surgery. Left foot was well-padded and placed in the traction boot. Right lower extremity was abducted and flexed out of harm's way. JACQUELINE kristane and SCDs utilized. Fluoroscopy was brought in. With the help of the junior sales assistant and manipulation of the limb, reduction [...] of this with the help of the junior sales assistant holding the soft tissue protector appropriately. Long reaming was done starting and reaming up to 12.5 mm distally. Was then with the help of the junior sales assistant . once reaming was done we [...] was red (more content not included)... Normal [facility] Prothrombin Time w/INRon INR Coag (PPP) [Relative time] 1.3 {INR} Normal [facility] Comment on above: Performed By: #### L 503.5510, L500.3400, L500.2500, L100.0100 #### [facility] [address] [place], [address] PT Coag (PPP) [Time] 16.4 s High 11.7-14.9 [facility] Comment on above: Performed By: #### L 503.5510, L500.3400, L500.1534, L100.0100 #### [facility] [place], [address] Prothrombin timeOrdered By: Kayden Merino on 07-04-2025 PT Coag (PPP) [Time] 16.4 s High 11.7-14.9 [facility] Serum globulin measurementOr dered By: Johanne Evans on 07-04-2025 Globulin (S) [Mass/Vol] 5.8 g/dL High 2.2-4.2 [facility] Serum or plasma alanine stahl otransferase (ALT) measurementOrdered By: Johanne Evans on 07-04-2025 ALT [Catalytic activity/Vol] 9 U/L <47 [facility] Serum or plasma albumin ivania urement (mass/volume)Ordered By: Johanne Evans on 07-04-2025 Albumin [Mass/Vol] 3.1 g/dL Low 3.4-4.8 [facility] Serum or plasma albumin/glob ulin mass ratioOrdered By: Johanne Evans on 07-04-2025 Albumin/Globulin [Mass ratio] 0.5 {ratio} Low 0.9-2.4 [facility] Serum or plasma alkaline brittany sphatase measurementOrdered By: Johanne Evans on 07-04-2025 ALP [Catalytic activity/Vol] 124 U/L 40-129 [facility] Serum or plasma ferritin shari surement (mass/volume)Ordered By: Johanne Evans on 07-04-2025 Ferritin [Mass/Vol] 640 ng/mL High 37-417 [facility] Serum or plasma iron saturat ion measurement (mass fraction)Ordered By: Johanne Evans on 07-04-2025 Iron saturation [Mass fraction] 10.4 % 9-55 [facility] Comment on above: Previous reported re sult: 11.0 %Edited by: NOY on 07/04/25:0703 AMENDED REPORT 07/04/25 0703 IRON SATURATION previously reported as: 11.0 % Total proteinOrdered By: Alfonso Evans on 07-04-2025 Protein [Mass/Vol] 8.9 g/dL High 5.9-8.4 [facility] Type AND Screenon 07-04-2025 Ab SCREEN GEL Negative Normal [facility] Comment on above: Order Comment: CLEAN CATCH Performed By: #### L 400.0001 #### [facility] [address] [place], [address] ABO and Rh group Nom (Bld) Blood group O Rh(D) positive Normal [facility] Comment on above: Order Comment: CLEAN CATCH Performed By: #### L 400.0001 #### [facility] [address] [place], [address] A1 CELL Not performed Normal [facility] Comment on above: Order Comment: CLEAN CATCH Result Comment: This specimen has been REJECTED due to Laboratory criteria: Quanity Not Sufficient. Autumn Shen has been notified of need of recollection. 07/04/2547 Shant L White Performed By: #### L 400.0001 #### [facility] [address] [place], [address] Ab SCREEN GEL Not performed Normal [facility] Comment on above: Order Comment: CLEAN CATCH Result Comment: This specimen has been REJECTED due to Laboratory criteria: Quanity Not Sufficient. Autumn Shen has been notified of need of recollection. 07/04/2547 Shant L White Performed By: #### L 400.0001 #### [facility] [address] [place], [address] ABO and Rh group Nom (Bld) Test Not Performed Normal [facility] Comment on above: Order Comment: CLEAN CATCH Result Comment: This specimen has been REJECTED due to Laboratory criteria: Quanity Not Sufficient. Autumn Shen has been notified of need of recollection. 07/04/2547 Shant L White Performed By: #### L 400.0001 #### [facility] [address] [place], [address] ANTI A Not performed [facility] Comment on above: Order Comment: CLEAN CATCH Result Comment: This specimen has been REJECTED due to Laboratory criteria: Quanity Not Sufficient. Autumn Shen has been notified of need of recollection. 07/04/25 0647 Shant L White Performed By: #### L 400.0001 #### [facility] [address] [place], [address] ANTI B Not performed Normal [facility] Comment on above: Order Comment: CLEAN CATCH Result Comment: This specimen has been REJECTED due to Laboratory criteria: Quanity Not Sufficient. Autumn Shen has been notified of need of recollection. 07/04/25 0647 Shant L White Performed By: #### L 400.0001 #### [facility] [address] [place], [address] ANTI D Not performed Normal [facility] Comment on above: Order Comment: CLEAN CATCH Result Comment: This specimen has been REJECTED due to Laboratory criteria: Quanity Not Sufficient. Autumn Shen has been notified of need of recollection. 07/04/25 0647 Shant L White Performed By: #### L 400.0001 #### [facility] [address] [place], [address] B CELLS Not performed Normal [facility] Comment on above: Order Comment: CLEAN CATCH Result Comment: This specimen has been REJECTED due to Laboratory criteria: Quanity Not Sufficient. Autumn Shen has been notified of need of recollection. 07/04/25 0647 Shant L White Performed By: #### L 400.0001 #### [facility] [address] [place], [address] 12 Lead EKGon 07-03-2025 12 Lead EKG [facility] Cardiovascular Services [address] [place] [address] 12 Lead EKG 07/03/25 2142 MR#: [id number] Acct: [id number] Name: ITZEL ALONZO Rep #: [id number] : 1950 75 From: Kevin Joshi MD [...] Abnormal ECG Confirmed by KEVIN JOSHI MD ([id number]), photograph editor JOSE NYE ([id number]) on 07/05/2025 1:12:48 PM Referred By: Confirmed By: KEVIN JOSHI MD 07/05/25 1312 Date Kevin Joshi MD CC: SID Haji; Dr. Steven Tejeda DO; Dr. Anthony Salgado MD Signed Normal [facility] Absolute lymphocyte countOrd ered By: Steven Tejeda on 07-03-2025 Lymphocytes Auto (Unsp spec) [#/Vol] 0.80 10*3/uL Low 0.83-4.51 [facility] Absolute neutrophil countOrd ered By: Steven Tejeda on 07-03-2025 Neutrophils (Bld) [#/Vol] 11.4 10*3/uL High 2.0-7.7 [facility] Activated partial thrombopla stin time (aPTT) in platelet poor plasma by coagulation aOrdered By: Steven Tejeda on 07-03-2025 aPTT Coag (PPP) [Time] 22.7 s Low 24.1-36.2 [facility] Anion gap in Serum or Plasma Ordered By: Steven Tejeda on 07-03-2025 Anion gap [Moles/Vol] 13 mmol/L 5-15 [facility] Automated lymphocyte count a s percentage of total leukocytesOrdered By: Steven Tejeda on 07-03-2025 Lymphocytes/100 WBC Auto (Unsp spec) 6.3 % Low 19-41 [facility] BUN/creatinine ratioOrdered By: Steven Tejeda on 07-03-2025 Urea nitrogen/Creatinine [Mass ratio] 16.8 mg/mg 10-20 [facility] Basic Metabolic Profile (BMP )on 07-03-2025 BUN/CRE 16.8 RATIO Normal 10-20 [facility] Comment on above: Performed By: #### L 400.0001 #### [facility] [address] [place], [address] Calcium [Mass/Vol] 9.7 mg/dL Normal 7.6-11.0 [facility] Comment on above: Performed By: #### L 400.0001 #### [facility] [address] [place], [address] Chloride [Moles/Vol] 100 mmol/L Normal 98-108 [facility] Comment on above: Performed By: #### L 400.0001 #### [facility] [address] [place], [address] CO2 [Moles/Vol] 20.2 mmol/L Low 21.0-32.0 [facility] Comment on above: Performed By: #### L 400.0001 #### [facility] [address] [place], [address] Creatinine [Mass/Vol] 0.86 mg/dL Normal 0.70-1.20 [facility] Comment on above: Performed By: #### L 400.0001 #### [facility] [address] [place], [address] ECRCL 66.03 ml/min Normal 50-250 [facility] Comment on above: Performed By: #### L 400.0001 #### [facility] [address] [place], [address] GAP 13 Normal 5-15 [facility] Comment on above: Performed By: #### L 400.0001 #### [facility] [address] [place], [address] GFR/1.73 sq M.predicted among non-blacks MDRD (S/P/Bld) [Vol rate/Area] 89 mL/min/{1.73_m2} Normal >60 [facility] Comment on above: Result Comment: mL/m in/1.73m2 CKD-EPI Creatinine Equation (2020) Performed By: #### L 400.0001 #### [facility] [address] [place], [address] Glucose [Mass/Vol] 204 mg/dL High 70-99 [facility] Comment on above: Performed By: #### L 400.0001 #### [facility] [address] [place], [address] Potassium [Moles/Vol] 4.8 mmol/L Normal 3.3-5.1 [facility] Comment on above: Performed By: #### L 400.0001 #### [facility] [address] [place], [address] Sodium [Moles/Vol] 133 mmol/L Normal 133-145 [facility] Comment on above: Performed By: #### L 400.0001 #### [facility] [address] [place], [address] Urea nitrogen [Mass/Vol] 14 mg/dL Normal 4-19 [facility] Comment on above: Performed By: #### L 400.0001 #### [facility] [address] [place], [address] Basophil percentageOrdered B y: Steven Tejeda on 07-03-2025 Basophils/100 WBC (Bld) 0.2 % 0-1 [facility] Bilirubin Test strip Ql (U)O rdered By: Steven Tejeda on 07-03-2025 Bilirubin Ql (U) Negative Negative [facility] Blood manual differential co mment interpretation (narrative result)Ordered By: Steven Tejeda on 07-03-2025 Manual differential comment Refugio (Bld) [Interp] SCANNED [facility] CBC W/Diff, Automatedon - OTHER CELLS RARE Normal [facility] Comment on above: Result Comment: FRAG MENTED CELLS Performed By: #### L 400.0001 #### [facility] [address] [place], [address] Anisocytosis Ql (Bld) 1+ Normal [facility] Comment on above: Performed By: #### L 400.0001 #### [facility] [address] [place], [address] ALLYSON CELLS RARE Normal [facility] Comment on above: Performed By: #### L 400.0001 #### [facility] [address] [place], [address] HYPOCHROMASIA 1+ Normal [facility] Comment on above: Performed By: #### L 400.0001 #### [facility] [address] [place], [address] MICROCYTIC 1+ Normal [facility] Comment on above: Performed By: #### L 400.0001 #### [facility] [address] [place], [address] SMEAR COMMENT SCANNED Normal [facility] Comment on above: Performed By: #### L 400.0001 #### [facility] [address] [place], [address] Carbon dioxide, total [Moles /volume] in Central venous bloodOrdered By: Steven Tejeda on 07-03-2025 CO2 [Moles/Vol] 20.2 mmol/L Low 21.0-32.0 [facility] Chloride assayOrdered By: Emil Tejeda on 07-03-2025 Chloride [Moles/Vol] 100 mmol/L 98-108 [facility] Crenated erythrocyte detecti on by light microscopyOrdered By: Steven Tejeda on 07-03-2025 Allyson cells LM Ql (Bld) RARE [facility] Emergency Department Summary on 07-03-2025 Emergency Department Summary [facility] Medical Records Department [address] [place] [address] Emergency Department Summary 07/03/25 MR#: [id number] Acct: [id number] Name: ITZEL ALONZO Rep #: [id number] : 1950 75 From: Steven Tejeda DO PCP: Carlene Haji, TRAUMA COUNSELLOR-C Status:ADM IN Location: MS3 EC400-1 HPI History of Present Illness HPI Narrative: [...] Weakness or Loss of Funtion [facility] Medical History (Updated 07/03/25 @ [...] lower extrem (more content not included)... Normal [facility] Eosinophil percentageOrdered By: Steven Tejeda on 07-03-2025 Eosinophils/100 WBC (Bld) 0.1 % 0-5 [facility] Erythrocyte distribution wid th ratioOrdered By: Steven Tejeda on 07-03-2025 Erythrocyte distribution width (RBC) [Ratio] 22.6 % High 11.6-14.6 [facility] Erythrocyte distribution wid th standard deviationOrdered By: Steven Tejeda on 07-03-2025 Erythrocyte distribution width (RBC) [Ratio] 56.9 fl High 35.1-43.9 [facility] Erythrocyte morphology asses smentOrdered By: Steven Tejeda on 07-03-2025 RBC morphology finding Nom (Bld) RARE [facility] Comment on above: FRAGMENTED CELLS Extremity Lower without Cont raon 07-03-2025 Extremity Lower without Contra [facility] Imaging Services [address] [place] [address] Extremity Lower without Contra MR#: [id number] Acct: [id number] Name: ITZEL ALONZO Rep #: [id number] : 1950 M 75 From: Radha Garcia nd, MD PCP: Carlene Haji, TRAUMA COUNSELLOR-C Status: REG ER Study: Extremity Lower without Contra Date of Exam: 0 07/03/25 Exam# [id number] Ordering Dr: Nuno Campbell MD PROCEDURE: EXTREMITY [...] fracture. No aggressive osseous lesions. Reading Location: [id number] CC: TRAUMA COUNSELLOR-C Carlene Haji; Dr. Nuno Campbell MD Route Returner: Signed Normal [facility] Glomerular filtration rate ( GFR) estimation/1.73 sq m using serum, plasma, or whole bOrdered By: Steven Tejeda on 07-03-2025 GFR/1.73 sq M.predicted among non-blacks MDRD (S/P/Bld) [Vol rate/Area] 89 mL/min/{1.73_m2} >60 [facility] Comment on above: mL/min/1.73m2 CKD-EP I Creatinine Equation (2020) H AND P Exam - [facility] 07-03-2025 H&P Exam - Hospitalist [facility] Medical Records Department [address] [place] [address] H P Exam - Hospitalist 07/03/257 MR#: [id number] Acct: [id number] Name: ITZEL ALONZO Rep #: [id number] : 1950 75 From: Johanne Evans MD PCP: SID Haro Status:ADM IN Location: MS3 BF120-2 HPI - General General Date of Admission: [...] tobacco use, COPD, recent transfer to the [place] from [facility] on 05/13/25 following large right-sided lung cancer wit suspected postobstructive pneumonia with acute metabolic encephalopathy suspected secondary to hypercalcemia of malignancy in addition to acute on chronic anemia with suspected upper GI bleed for further evaluation who now presents to the [facility] ED on 07/03/2025 with onset of [...] osseous lesion would plan to admit to [facility] and evaluate for repair of hip fracture. [facility] Medical History (Updated 07/03/25 @ 23:18 [...] day smoke (more content not included)... Normal [facility] HIP, UNI W/ Pelvis 2-3 Views on 07-03-2025 HIP, UNI W/ Pelvis 2-3 Views [facility] Imaging Services [address] [place], [place] [id number] HIP, UNI W/ Pelvis 2-3 Views MR#: [id number] Acct: [id number] Name: ITZEL ALONZO #: [id number] : 1950 M 75 From: Radha Garcia nd, MD PCP: Carlene Haji, TRAUMA COUNSELLOR-C Status: REG ER Study: HIP, UNI W/ Pelvis 2-3 Views Date of Exam: 08/19 Exam# [id number] Ordering Dr: Steven Tejeda DO PROCEDURE: HIP, [...] Malignancy can not be excluded. Reading Location: [id number] CC: TRAUMA COUNSELLOR-C Carlene Haji; Dr. Steven Tejeda DO Route Returner: Signed Normal [facility] Hematocrit Auto (Bld) [Volum e fraction]Ordered By: Steven Tejeda on 07-03-2025 Hematocrit (Bld) [Volume fraction] 27.9 % Low 40-54 [facility] Hemoglobin measurementOrdere d By: Steven Tejeda on 07-03-2025 Hemoglobin (Bld) [Mass/Vol] 8.4 g/dL Low 13.0-16.5 [facility] Hyaline casts LM.LPF (Urine sed) [#/Area]Ordered By: Steven Tejeda on 07-03-2025 Hyaline casts (Urine sed) [#/Area] 0 /[LPF] 0-5 [facility] Hypochromatic red blood cell detectionOrdered By: Steven Tejeda on 07-03-2025 Hypochromia Ql (Bld) 1+ [facility] Immature granulocytes/100 WB C Auto (Bld)Ordered By: Steven Tejeda on 07-03-2025 Immature granulocytes/100 WBC (Bld) 0.500 % 0.0-0.9 [facility] Comment on above: IG% - Immature Granu locytes (promyelocytes, myelocytes and metamyelocytes) > 1% indicates that a LEFT SHIFT is Present. International normalized rat io (INR) calculationOrdered By: Steven Tejeda on 07-03-2025 INR Coag (Bld) [Relative time] 1.2 {INR} [facility] Ketones Test strip Ql (U)Ord ered By: Steven Tejeda on 07-03-2025 Ketones Ql (U) Negative Negative [facility] - Hematology and Cell countsOrdered By: Steven Tejeda on 07-03-2025 Anisocytosis Ql (Bld) 1+ [facility] MCV (mean corpuscular volume ) determinationOrdered By: Steven Tejeda on 07-03-2025 MCV (RBC) [Entitic vol] 70.6 fL Low 80-94 [facility] Magnesiumon 07-03-2025 Magnesium [Mass/Vol] 1.9 mg/dL Normal 1.5-2.2 [facility] Comment on above: Order Comment: Comme nts: May add to ED labsComments: may add to ED labs Performed By: #### L 501.080 #### [facility] [address] [place], [address] Mean corpuscular hemoglobin (MCH) determinationOrdered By: Steven Tejeda on 07-03-2025 MCH (RBC) [Entitic mass] 21.3 pg Low 27.0-32.0 [facility] Mean corpuscular hemoglobin concentration (MCHC) determinationOrdered By: Steven Tejeda on 07-03-2025 MCHC (RBC) [Mass/Vol] 30.1 g/dL Low 32-36 [facility] Mean platelet volume determi nationOrdered By: Steven Tejeda on 07-03-2025 Platelet mean volume (Bld) [Entitic vol] 9.1 fL 6.2-12.0 [facility] Microscopic analysis of urin e for red blood cells (RBC)Ordered By: Steven Tejeda on 07-03-2025 Microscopic analysis of urine for red blood cells (RBC) 0-5 SEEN /hpf 0-5 [facility] Monocyte percentageOrdered B y: Steven Tejeda on 07-03-2025 Monocytes/100 WBC (Bld) 2.8 % 0-10 [facility] Mucus LM Ql (Urine sed)Order ed By: Steven Tejeda on 07-03-2025 Mucus Ql (Urine sed) 0 SEEN /hpf [facility] Natriuretic peptide.B prohor paul N-Terminal [Mass/volume] in Serum or PlasmaOrdered By: Johanne Evans on 07-03-2025 Natriuretic peptide.B prohormone N-Terminal [Mass/Vol] 372 pg/mL <1800 [facility] Comment on above: Heart Failure Unlike ly: < 300 pg/mLHeart Failure Likely< 50 Years: > 450 pg/mL50-75 Years: > 900 pg/mL>75 Years: > 1800 pg/mL Neutrophil percentageOrdered By: Steven Tejeda on 07-03-2025 Neutrophils/100 WBC (Bld) 90.1 % High 47-70 [facility] Nitrite Test strip Ql (U)Ord ered By: Steven Tejeda on 07-03-2025 Nitrite Ql (U) Negative Negative [facility] Nucleated red blood cell per centageOrdered By: Steven Tejeda on 07-03-2025 Nucleated RBC/100 WBC (Bld) [Ratio] 0 % 0-5 [facility] Partial Thromboplast Timeon 07-03-2025 aPTT Coag (Bld) [Time] 22.7 s Low 24.1-36.2 [facility] Comment on above: Performed By: #### L 400.0001 #### [facility] [address] [place], [address] Phosphoruson 07-03-2025 Phosphate [Mass/Vol] 2.5 mg/dL Low 2.7-4.5 [facility] Comment on above: Order Comment: Comme nts: May add to ED labsComments: may add to ED labs Performed By: #### L 501.080 #### [facility] [address] [place], [address] Platelet countOrdered By: Emil Tejeda on 07-03-2025 Platelets (Bld) [#/Vol] 300 10*3/uL 150-450 [facility] Potassium measurement (mass/ volume)Ordered By: Steven Tejeda on 07-03-2025 Potassium (Unsp spec) [Mass/Vol] 4.8 mmol/L 3.3-5.1 [facility] Pro- Brain NATRIURETIC PEPTI Rodri 07-03-2025 Natriuretic peptide B (Bld) [Mass/Vol] 372 pg/mL Normal <=1800 [facility] Comment on above: Order Comment: Comme nts: May add to ED labsComments: may add to ED labs Result Comment: Hear t Failure Unlikely: < 300 pg/mL Heart Failure Likely < 50 Years: > 450 pg/mL 50-75 Years: > 900 pg/mL >75 Years: > 1800 pg/mL Performed By: #### L 501.080 #### [facility] [address] [place], [address] Protein Test strip Ql (U)Ord ered By: Steven Tejeda on 07-03-2025 Protein Ql (U) 100 mg/dl High Negative [facility] Prothrombin Time w/INRon INR Coag (PPP) [Relative time] 1.2 {INR} Normal [facility] Comment on above: Performed By: #### L 400.0001 #### [facility] [address] [place], [address] (817 PT Coag (PPP) [Time] 15.5 s High 11.7-14.9 [facility] Comment on above: Performed By: #### L 400.0001 #### [facility] [address] [place], [address] (115 Prothrombin timeOrdered By: Steven Tejeda on 07-03-2025 PT Coag (PPP) [Time] 15.5 s High 11.7-14.9 [facility] RBC Auto (Bld) [#/Vol]Ordere d By: Steven Tejeda on 07-03-2025 RBC (Bld) [#/Vol] 3.95 10*6/uL Low 4.6-6.2 [facility] Serum creatinine measurement (mass/volume)Ordered By: Steven Tejeda on 07-03-2025 Creatinine [Mass/Vol] 0.86 mg/dL 0.70-1.20 [facility] Serum glucose measurement (m ass/volume)Ordered By: Steven Tejeda on 07-03-2025 Glucose [Mass/Vol] 204 mg/dL High 70-99 [facility] Serum or plasma calcium ivania urement (mass/volume)Ordered By: Steven Tejeda on 07-03-2025 Calcium [Mass/Vol] 9.7 mg/dL 7.6-11.0 [facility] Serum or plasma urea nitroge n measurement (mass/volume)Ordered By: Steven Tejeda on 07-03-2025 Urea nitrogen [Mass/Vol] 14 mg/dL 4-19 [facility] Sodium levelOrdered By: Steven Tejeda on 07-03-2025 Sodium [Moles/Vol] 133 mmol/L 133-145 [facility] Squamous epithelial cells de tection in urine sediment by light microscopyOrdered By: Steven Tejeda on 07-03-2025 Epithelial cells.squamous LM Ql (Urine sed) 0-5 SEEN /hpf 0-5 [facility] Urinalysis, Completeon 07-03 BACTERIA RARE Normal None Seen [facility] Comment on above: Order Comment: CLEAN CATCH Performed By: #### L 503.5510, L500.3400, L500.2500, L100.0100 #### [facility] [address] [place], [address] CAST,HYALINE 0-5 SEEN Normal 0-5 [facility] Comment on above: Order Comment: CLEAN CATCH Performed By: #### L 503.5510, L500.3400, L500.2500, L100.0100 #### [facility] [address] [place], [address] EPI,SQUAMOUS 0-5 SEEN Normal 0-5 [facility] Comment on above: Order Comment: CLEAN CATCH Performed By: #### L 503.5510, L500.3400, L500.2500, L100.0100 #### [facility] [address] [place], [address] RBC 0-5 SEEN Normal 0-5 [facility] Comment on above: Order Comment: CLEAN CATCH Performed By: #### L 503.5510, L500.3400, L500.2500, L100.0100 #### [facility] [address] [place], [address] WBC 0-5 SEEN Normal 0-5 [facility] Comment on above: Order Comment: CLEAN CATCH Performed By: #### L 503.5510, L500.3400, L500.2500, L100.0100 #### [facility] [address] [place], [address] Mucus Ql (Urine sed) 0 SEEN Normal [facility] Comment on above: Order Comment: CLEAN CATCH Performed By: #### L 503.5510, L500.3400, L500.2500, L100.0100 #### [facility] [address] [place], [address] Urine clarityOrdered By: Pat Tejeda on 07-03-2025 Clarity (U) Clear Clear [facility] Urine color determinationOrd ered By: Steven Tejeda on 07-03-2025 Color (U) Yellow Yellow [facility] Urine glucose detectionOrder ed By: Steven Tejeda on 07-03-2025 Glucose Ql (U) 100 mg/dl High Normal [facility] Urine leukocyte esterase det ection by dipstickOrdered By: Steven Tejeda on 07-03-2025 Leukocyte esterase Test strip Ql (U) Negative Negative [facility] Urine pHOrdered By: Steven proctor on 07-03-2025 pH (U) 6.0 [pH] 5.0 - 8.0 [facility] Urine sediment bacteria coun t by microscopy (number/high power field)Ordered By: Steven Tejeda on 07-03-2025 Bacteria LM.HPF (Urine sed) [#/Area] RARE /hpf None Seen [facility] Urine specific gravity measu rementOrdered By: Steven Tejeda on 07-03-2025 Specific gravity (U) [Rel density] 1.010 1.002-1.030 [facility] Urine urobilinogen measureme ntOrdered By: Steven Tejeda on 07-03-2025 Urobilinogen Ql (U) Normal mg/dl Normal [facility] White blood cell (WBC) count Ordered By: Steven Tejeda on 07-03-2025 WBC (Bld) [#/Vol] 12.7 10*3/uL High 4.4-11.0 [facility] White blood cell countOrdere d By: Steven Tejeda on 07-03-2025 White blood cell count 0-5 SEEN /hpf 0-5 [facility] Basic Metabolic Profile (BMP )on 05-14-2025 BUN Normal 4-19 [facility] Comment on above: Result Comment: Canc elled via OM: Order cancelled - Patient discharged Performed By: #### L 400.0001 #### [facility] [address] [facility] [address] BUN/CRE Normal 10-20 [facility] Comment on above: Result Comment: Canc elled via OM: Order cancelled - Patient discharged Performed By: #### L 400.0001 #### [facility] [address] [facility] [address] Calcium Normal 7.6-11.0 [facility] Comment on above: Result Comment: Canc elled via OM: Order cancelled - Patient discharged Performed By: #### L 400.0001 #### [facility] [address] [facility] [address] CL Normal 98-108 [facility] Comment on above: Result Comment: Canc elled via OM: Order cancelled - Patient discharged Performed By: #### L 400.0001 #### [facility] [address] [place], [address] CO2 Normal 21.0-32.0 [facility] Comment on above: Result Comment: Canc elled via OM: Order cancelled - Patient discharged Performed By: #### L 400.0001 #### [facility] [address] [place], [address] CREAT,SERUM Normal 0.70-1.20 [facility] Comment on above: Result Comment: Canc elled via OM: Order cancelled - Patient discharged Performed By: #### L 400.0001 #### [facility] [address] [place], [address] eGFR Normal >60 [facility] Comment on above: Result Comment: Canc elled via OM: Order cancelled - Patient discharged Performed By: #### L 400.0001 #### [facility] [address] [place], [address] GAP Normal 5-15 [facility] Comment on above: Result Comment: Canc elled via OM: Order cancelled - Patient discharged Performed By: #### L 400.0001 #### [facility] [address] [place], [address] GLU Normal 70-99 [facility] Comment on above: Result Comment: Canc elled via OM: Order cancelled - Patient discharged Performed By: #### L 400.0001 #### [facility] [address] [place], [address] Potassium Normal 3.3-5.1 [facility] Comment on above: Result Comment: Canc elled via OM: Order cancelled - Patient discharged Performed By: #### L 400.0001 #### [facility] [address] [place], [address] Basic Metabolic Profile (BMP) Normal 133-145 [facility] Comment on above: Result Comment: Canc elled via OM: Order cancelled - Patient discharged Performed By: #### L 400.0001 #### [facility] [address] [place], [address] CBC W/Diff, Automatedon 06-2 0-2024 Absolute Neut Normal 2.0-7.7 [facility] Comment on above: Result Comment: Canc elled via OM: Order cancelled - Patient discharged Performed By: #### L 400.0001 #### [facility] [address] [place], [address] HCT Normal 40-54 [facility] Comment on above: Result Comment: Canc elled via OM: Order cancelled - Patient discharged Performed By: #### L 400.0001 #### [facility] [address] [place], [address] HGB Normal 13.0-16.5 [facility] Comment on above: Result Comment: Canc elled via OM: Order cancelled - Patient discharged Performed By: #### L 400.0001 #### [facility] [address] [place], [address] MCH Normal 27.0-32.0 [facility] Comment on above: Result Comment: Canc elled via OM: Order cancelled - Patient discharged Performed By: #### L 400.0001 #### [facility] [address] [place], [address] MCHC Normal 32-36 [facility] Comment on above: Result Comment: Canc elled via OM: Order cancelled - Patient discharged Performed By: #### L 400.0001 #### [facility] [address] [place], [address] MCV Normal 80-94 [facility] Comment on above: Result Comment: Canc elled via OM: Order cancelled - Patient discharged Performed By: #### L 400.0001 #### [facility] [address] [place], [address] NEUT% Normal 47-70 [facility] Comment on above: Result Comment: Canc elled via OM: Order cancelled - Patient discharged Performed By: #### L 400.0001 #### [facility] [address] [place], [address] PLT Normal 150-450 [facility] Comment on above: Result Comment: Canc elled via OM: Order cancelled - Patient discharged Performed By: #### L 400.0001 #### [facility] [address] [place], [address] RBC Normal 4.6-6.2 [facility] Comment on above: Result Comment: Canc elled via OM: Order cancelled - Patient discharged Performed By: #### L 400.0001 #### [facility] [address] [place], [address] RDW CV Normal 11.6-14.6 [facility] Comment on above: Result Comment: Canc elled via OM: Order cancelled - Patient discharged Performed By: #### L 400.0001 #### [facility] [address] [place], [address] RDW SD Normal 35.1-43.9 [facility] Comment on above: Result Comment: Canc elled via OM: Order cancelled - Patient discharged Performed By: #### L 400.0001 #### [facility] [address] [place], [address] WBC Normal 4.4-11.0 [facility] Comment on above: Result Comment: Canc elled via OM: Order cancelled - Patient discharged Performed By: #### L 400.0001 #### [facility] [address] [place], [address] Absolute lymphocyte countOrd ered By: Anthony Salgado on 05-13-2025 Lymphocytes Auto (Unsp spec) [#/Vol] 1.93 10*3/uL 0.83-4.51 [facility] Absolute neutrophil countOrd ered By: Anthony Salgado on 06-19-2025 Neutrophils (Bld) [#/Vol] 8.9 10*3/uL High 2.0-7.7 [facility] Anion gap in Serum or Plasma Ordered By: Anthony Salgado on 05-13-2025 Anion gap [Moles/Vol] 11 mmol/L 5-15 [facility] Automated lymphocyte count a s percentage of total leukocytesOrdered By: Anthony Salgado on 05-13-2025 Lymphocytes/100 WBC Auto (Unsp spec) 16.4 % Low [facility] BUN/creatinine ratioOrdered By: Anthony Salgado on 05-13-2025 Urea nitrogen/Creatinine [Mass ratio] 9.2 mg/mg Low 09-13 [facility] Basic Metabolic Profile (BMP )on 05-13-2025 BUN/CRE 9.2 RATIO Low 09-13 [facility] Comment on above: Performed By: #### L 503.5510, L500.3400, L500.2500, L100.0100 #### [facility] [address] [place], [address] Calcium [Mass/Vol] 9.7 mg/dL Normal 7.6-11.0 [facility] Comment on above: Performed By: #### L 503.5510, L500.3400, L500.2500, L100.0100 #### [facility] [address] [place], [address] Chloride [Moles/Vol] 104 mmol/L Normal 98-108 [facility] Comment on above: Performed By: #### L 503.5510, L500.3400, L500.2500, L100.0100 #### [facility] [address] [place], [address] CO2 [Moles/Vol] 22.8 mmol/L Normal 21.0-32.0 [facility] Comment on above: Performed By: #### L 503.5510, L500.3400, L500.2500, L100.0100 #### [facility] [address] [place], [address] Creatinine [Mass/Vol] 1.07 mg/dL Normal 0.70-1.20 [facility] Comment on above: Performed By: #### L 503.5510, L500.3400, L500.2500, L100.0100 #### [facility] [address] [place], [address] ECRCL 53.58 ml/min Normal 50-250 [facility] Comment on above: Performed By: #### L 503.5510, L500.3400, L500.2500, L100.0100 #### [facility] [address] [place], [address] GAP 11 Normal 5-15 [facility] Comment on above: Performed By: #### L 503.5510, L500.3400, L500.2500, L100.0100 #### [facility] [address] [place], [address] GFR/1.73 sq M.predicted among non-blacks MDRD (S/P/Bld) [Vol rate/Area] 72 mL/min/{1.73_m2} Normal >60 [facility] Comment on above: Result Comment: mL/m in/1.73m2 CKD-EPI Creatinine Equation (2020) Performed By: #### L 503.5510, L500.3400, L500.2500, L100.0100 #### [facility] [address] [place], [address] Glucose [Mass/Vol] 207 mg/dL High 70-99 [facility] Comment on above: Performed By: #### L 503.5510, L500.3400, L500.2500, L100.0100 #### [facility] [address] [place], [address] Potassium [Moles/Vol] 3.2 mmol/L Low 3.3-5.1 [facility] Comment on above: Performed By: #### L 503.5510, L500.3400, L500.2500, L100.0100 #### [facility] [address] [place], [address] Sodium [Moles/Vol] 137 mmol/L Normal 133-145 [facility] Comment on above: Performed By: #### L 503.5510, L500.3400, L500.2500, L100.0100 #### [facility] [address] [place], [address] Urea nitrogen [Mass/Vol] 10 mg/dL Normal 4-19 [facility] Comment on above: Performed By: #### L 503.5510, L500.3400, L500.2500, L100.0100 #### [facility] [address] [place], [address] Basophil percentageOrdered B y: Anthony Salgado on 05-13-2025 Basophils/100 WBC (Bld) 0.2 % 0-1 [facility] Bedside Glucoseon 05-13-2025 FINGERSTICK GLU 325 mg/dL High 74-106 [facility] Comment on above: Result Comment: BELLA GEMENT OF PATIENT CARE PER NURSING PROTOCOL Performed By: #### L 400.0001 #### [facility] [address] [place], [address] FINGERSTICK GLU 190 mg/dL High 74-106 [facility] Comment on above: Result Comment: BELLA GEMENT OF PATIENT CARE PER NURSING PROTOCOL Performed By: #### L 400.0001 #### [facility] [address] [place], [address] CBC W/Diff, Automatedon 04-25 Absolute Lymph 1.93 X10 3/uL Normal 0.83-4.51 [facility] Comment on above: Performed By: #### L 503.5510, L500.3400, L500.2500, L100.0100 #### [facility] [address] [place], [address] Absolute Neut 8.9 X10 3/uL High 2.0-7.7 [facility] Comment on above: Performed By: #### L 503.5510, L500.3400, L500.2500, L100.0100 #### [facility] [address] [place], [address] Basophils/100 WBC (Bld) 0.2 % Normal 0-1 [facility] Comment on above: Performed By: #### L 503.5510, L500.3400, L500.2500, L100.0100 #### [facility] [address] [place], [address] Eosinophils/100 WBC (Bld) 0.9 % Normal 0-5 [facility] Comment on above: Performed By: #### L 503.5510, L500.3400, L500.2500, L100.0100 #### [facility] [address] [place], [address] Erythrocyte distribution width (RBC) [Ratio] 18.4 % High 11.6-14.6 [facility] Comment on above: Performed By: #### L 503.5510, L500.3400, L500.2500, L100.0100 #### [facility] [address] [place], [address] Hematocrit (Bld) [Volume fraction] 25.4 % Low 40-54 [facility] Comment on above: Performed By: #### L 503.5510, L500.3400, L500.2500, L100.0100 #### [facility] [address] [place], [address] Hemoglobin (Bld) [Mass/Vol] 7.7 g/dL Low 13.0-16.5 [facility] Comment on above: Performed By: #### L 503.5510, L500.3400, L500.2500, L100.0100 #### [facility] [address] [place], [address] IG% 0.300 Normal 0.0-0.9 [facility] Comment on above: Result Comment: IG% - Immature Granulocytes (promyelocytes, myelocytes and metamyelocytes) > 1% indicates that a LEFT SHIFT is Present. Performed By: #### L 503.5510, L500.3400, L500.2500, L100.0100 #### [facility] [address] [place], [address] Lymphocytes/100 WBC (Bld) 16.4 % Low 19-41 [facility] Comment on above: Performed By: #### L 503.5510, L500.3400, L500.2500, L100.0100 #### [facility] [address] [place], [address] MCH (RBC) [Entitic mass] 19.7 pg Low 27.0-32.0 [facility] Comment on above: Performed By: #### L 503.5510, L500.3400, L500.2500, L100.0100 #### [facility] [address] [place], [address] MCHC (RBC) [Mass/Vol] 30.3 g/dL Low 32-36 [facility] Comment on above: Performed By: #### L 503.5510, L500.3400, L500.2500, L100.0100 #### [facility] [address] [place], [address] MCV (RBC) [Entitic vol] 65.0 fL Low 80-94 [facility] Comment on above: Performed By: #### L 503.5510, L500.3400, L500.2500, L100.0100 #### [facility] [address] [place], [address] Monocytes/100 WBC (Bld) 6.5 % Normal 0-10 [facility] Comment on above: Performed By: #### L 503.5510, L500.3400, L500.2500, L100.0100 #### [facility] [address] [place], [address] Neutrophils/100 WBC (Bld) 75.7 % High 47-70 [facility] Comment on above: Performed By: #### L 503.5510, L500.3400, L500.2500, L100.0100 #### [facility] [address] [place], [address] Nucleated RBC (Bld) [#/Vol] 0 10*3/uL Normal 0-5 [facility] Comment on above: Performed By: #### L 503.5510, L500.3400, L500.2500, L100.0100 #### [facility] [address] [place], [address] Platelet mean volume (Bld) [Entitic vol] 10.0 fL Normal 6.2-12.0 [facility] Comment on above: Performed By: #### L 503.5510, L500.3400, L500.2500, L100.0100 #### [facility] [address] [place], [address] Platelets (Bld) [#/Vol] 358 10*3/uL Normal 150-450 [facility] Comment on above: Performed By: #### L 503.5510, L500.3400, L500.2500, L100.0100 #### [facility] [address] [place], [address] RBC (Bld) [#/Vol] 3.91 10*6/uL Low 4.6-6.2 [facility] Comment on above: Performed By: #### L 503.5510, L500.3400, L500.2500, L100.0100 #### [facility] [address] [place], [address] RDW SD 43.1 fl Normal 35.1-43.9 [facility] Comment on above: Performed By: #### L 503.5510, L500.3400, L500.2500, L100.0100 #### [facility] [address] [place], [address] WBC (Bld) [#/Vol] 11.8 10*3/uL High 4.4-11.0 [facility] Comment on above: Performed By: #### L 503.5510, L500.3400, L500.2500, L100.0100 #### [facility] [address] [place], [address] Carbon dioxide, total [Moles /volume] in Central venous bloodOrdered By: Anthony Salgado on 05-13-2025 CO2 [Moles/Vol] 22.8 mmol/L 21.0-32.0 [facility] Chloride assayOrdered By: Venessa Salgado on 05-13-2025 Chloride [Moles/Vol] 104 mmol/L 98-108 [facility] Eosinophil percentageOrdered By: Anthony Salgado on 05-13-2025 Eosinophils/100 WBC (Bld) 0.9 % 0-5 [facility] Erythrocyte distribution wid th ratioOrdered By: Anthony Salgado on 05-13-2025 Erythrocyte distribution width (RBC) [Ratio] 18.4 % High 11.6-14.6 [facility] Erythrocyte distribution wid th standard deviationOrdered By: Anthony Salgado on 05-13-2025 Erythrocyte distribution width (RBC) [Ratio] 43.1 fl 35.1-43.9 [facility] Glomerular filtration rate ( GFR) estimation/1.73 sq m using serum, plasma, or whole bOrdered By: Anthony Salgado on 05-13-2025 GFR/1.73 sq M.predicted among non-blacks MDRD (S/P/Bld) [Vol rate/Area] 72 mL/min/{1.73_m2} >60 [facility] Comment on above: mL/min/1.73m2 CKD-EP I Creatinine Equation (2020) Glucose measurement at bedsi deOrdered By: Anthony Salgado on 05-13-2025 Glucose [Mass/Vol] 325 mg/dL High 74-106 [facility] Comment on above: MANAGEMENT OF PATIEN T CARE PER NURSING PROTOCOL Hematocrit Auto (Bld) [Volum e fraction]Ordered By: Anthony Salgado on 05-13-2025 Hematocrit (Bld) [Volume fraction] 25.4 % Low 40-54 [facility] Hemoglobin measurementOrdere d By: Anthony Salgado on 05-13-2025 Hemoglobin (Bld) [Mass/Vol] 7.7 g/dL Low 13.0-16.5 [facility] Immature granulocytes/100 WB C Auto (Bld)Ordered By: Anthony Salgado on 05-13-2025 Immature granulocytes/100 WBC (Bld) 0.300 % 0.0-0.9 [facility] Comment on above: IG% - Immature Granu locytes (promyelocytes, myelocytes and metamyelocytes) > 1% indicates that a LEFT SHIFT is Present. MCV (mean corpuscular volume ) determinationOrdered By: Anthony Salgado on 05-13-2025 MCV (RBC) [Entitic vol] 65.0 fL Low 80-94 [facility] Mean corpuscular hemoglobin (MCH) determinationOrdered By: Anthony Salgado on 05-13-2025 MCH (RBC) [Entitic mass] 19.7 pg Low 27.0-32.0 [facility] Mean corpuscular hemoglobin concentration (MCHC) determinationOrdered By: Anthony Salgado on 05-13-2025 MCHC (RBC) [Mass/Vol] 30.3 g/dL Low 32-36 [facility] Mean platelet volume determi nationOrdered By: Anthony Salgado on 05-13-2025 Platelet mean volume (Bld) [Entitic vol] 10.0 fL 6.2-12.0 [facility] Monocyte percentageOrdered B y: Anthony Salgado on 05-13-2025 Monocytes/100 WBC (Bld) 6.5 % 0-10 [facility] Neutrophil percentageOrdered By: Anthony Salgado on 05-13-2025 Neutrophils/100 WBC (Bld) 75.7 % High 47-70 [facility] Nucleated red blood cell per centageOrdered By: Anthony Salgado on 05-13-2025 Nucleated RBC/100 WBC (Bld) [Ratio] 0 % 0-5 [facility] Platelet countOrdered By: Venessa Salgado on 05-13-2025 Platelets (Bld) [#/Vol] 358 10*3/uL 150-450 [facility] Potassium measurement (mass/ volume)Ordered By: Anthony Salgado on 05-13-2025 Potassium (Unsp spec) [Mass/Vol] 3.2 mmol/L Low 3.3-5.1 [facility] RBC Auto (Bld) [#/Vol]Ordere d By: Anthony Salgado on 05-13-2025 RBC (Bld) [#/Vol] 3.91 10*6/uL Low 4.6-6.2 [facility] Serum creatinine measurement (mass/volume)Ordered By: Anthony Salgado on 05-13-2025 Creatinine [Mass/Vol] 1.07 mg/dL 0.70-1.20 [facility] Serum glucose measurement (m ass/volume)Ordered By: Anthony Salgado on 05-13-2025 Glucose [Mass/Vol] 207 mg/dL High 70-99 [facility] Serum or plasma calcium ivania urement (mass/volume)Ordered By: Anthony Salgado on 05-13-2025 Calcium [Mass/Vol] 9.7 mg/dL 7.6-11.0 [facility] Serum or plasma urea nitroge n measurement (mass/volume)Ordered By: Anthony Salgado on 05-13-2025 Urea nitrogen [Mass/Vol] 10 mg/dL 4-19 [facility] Sodium levelOrdered By: J Luis Salgado on 05-13-2025 Sodium [Moles/Vol] 137 mmol/L 133-145 [facility] Trough vancomycin levelOrder ed By: Lane Stanley on 05-13-2025 Vancomycin trough [Mass/Vol] 8.6 ug/mL 5.0-15.0 [facility] Comment on above: Recommended goal tro [...] therapy recommended for serious lifethreatening infections include:- Gvhereqhzb-Oapsdmzbuhjz-Xpqunosoq (Ventilator/Healtcare Associated)-Sepsis PLEASE CONTACT PHARMACY SERVICES (#2607) FOR INTERPRETATIONOF RESULTS. Vancomycin, Trough Levelon 0 05-13-2025 VANCO, TROUGH 8.6 ug/mL Normal 5.0-15.0 [facility] Comment on above: Order Comment: Comme nts: Trough to be drawn 30 mins prior to scheduled [id number] Result Comment: Jose A mmended goal trough [...] (Ventilator/Healtcare Associated) -Sepsis PLEASE CONTACT PHARMACY SERVICES (#[id number]) FOR INTERPRETATION OF RESULTS. Performed By: #### L 503.5510, L500.3400, L500.2500, L100.0100 #### [facility] [address] [place] [address]. [place], [place], [id number] White blood cell (WBC) count Ordered By: Anthony Salgado on 05-13-2025 WBC (Bld) [#/Vol] 11.8 10*3/uL High 4.4-11.0 [facility] Basic Metabolic Profile (BMP )on 05-12-2025 BUN/CRE 10.8 RATIO Normal 10-20 [facility] Comment on above: Performed By: #### L 503.5510, L500.3400, L500.2500, L100.0100 #### [facility] [address] [place], [address] Calcium [Mass/Vol] 10.3 mg/dL Normal 7.6-11.0 [facility] Comment on above: Performed By: #### L 503.5510, L500.3400, L500.2500, L100.0100 #### [facility] [address] [place], [address] Chloride [Moles/Vol] 103 mmol/L Normal 98-108 [facility] Comment on above: Performed By: #### L 503.5510, L500.3400, L500.2500, L100.0100 #### [facility] [address] [place], [address] CO2 [Moles/Vol] 23.7 mmol/L Normal 21.0-32.0 [facility] Comment on above: Performed By: #### L 503.5510, L500.3400, L500.2500, L100.0100 #### [facility] [address] [place], [address] Creatinine [Mass/Vol] 0.92 mg/dL Normal 0.70-1.20 [facility] Comment on above: Performed By: #### L 503.5510, L500.3400, L500.2500, L100.0100 #### [facility] [address] [place], [address] ECRCL 62.32 ml/min Normal 50-250 [facility] Comment on above: Performed By: #### L 503.5510, L500.3400, L500.2500, L100.0100 #### [facility] [address] [place], [address] GAP 11 Normal 5-15 [facility] Comment on above: Performed By: #### L 503.5510, L500.3400, L500.2500, L100.0100 #### [facility] [address] [place], [address] GFR/1.73 sq M.predicted among non-blacks MDRD (S/P/Bld) [Vol rate/Area] 87 mL/min/{1.73_m2} Normal >60 [facility] Comment on above: Result Comment: mL/m in/1.73m2 CKD-EPI Creatinine Equation (2020) Performed By: #### L 503.5510, L500.3400, L500.2500, L100.0100 #### [facility] [address] [place], [address] Glucose [Mass/Vol] 159 mg/dL High 70-99 [facility] Comment on above: Performed By: #### L 503.5510, L500.3400, L500.2500, L100.0100 #### [facility] [address] [place], [address] Potassium [Moles/Vol] 3.2 mmol/L Low 3.3-5.1 [facility] Comment on above: Performed By: #### L 503.5510, L500.3400, L500.2500, L100.0100 #### [facility] [address] [place], [address] Sodium [Moles/Vol] 138 mmol/L Normal 133-145 [facility] Comment on above: Performed By: #### L 503.5510, L500.3400, L500.2500, L100.0100 #### [facility] [address] [place], [address] Urea nitrogen [Mass/Vol] 10 mg/dL Normal 4-19 [facility] Comment on above: Performed By: #### L 503.5510, L500.3400, L500.2500, L100.0100 #### [facility] [address] [place], [address] Bedside Glucoseon 05-12-2025 FINGERSTICK GLU 330 mg/dL [address] Comment on above: Result Comment: BELLA GEMENT OF PATIENT CARE PER NURSING PROTOCOL Performed By: #### L 400.0001 #### [facility] [address] [place], [address] FINGERSTICK GLU 278 mg/dL High [address] [place] [address] Comment on above: Result Comment: BELLA GEMENT OF PATIENT CARE PER NURSING PROTOCOL Performed By: #### L 503.5510, L500.3400, L500.2500, L100.0100 #### [facility] [address] [place], [address] FINGERSTICK GLU 310 mg/dL High [address] [place] [address] Comment on above: Result Comment: BELLA GEMENT OF PATIENT CARE PER NURSING PROTOCOL Performed By: #### L 503.5510, L500.3400, L500.2500, L100.0100 #### [facility] [address] [place], [address] FINGERSTICK GLU 160 mg/dL [address] Comment on above: Result Comment: BELLA GEMENT OF PATIENT CARE PER NURSING PROTOCOL Performed By: #### L 400.0001 #### [facility] [address] [place], [address] FINGERSTICK GLU 242 mg/dL High [address] [place] [address] Comment on above: Result Comment: BELLA GEMENT OF PATIENT CARE PER NURSING PROTOCOL Performed By: #### L 503.5510, L500.3400, L500.2500, L100.0100 #### [facility] [address] [place], [address] Bilirubin directOrdered By: Lane Stanley on 05-12-2025 Bilirubin.direct [Mass/Vol] 0.23 mg/dL 0.00-0.30 [facility] Bilirubin, totalOrdered By: Lane Stanley on 05-12-2025 Bilirubin [Mass/Vol] 0.44 mg/dL 0.00-1.30 [facility] Brain/Head W/WO Contraston 0 05-12-2025 Brain/Head W/WO Contrast [facility] Imaging Services [address] [place] [address] Brain/Head W/WO Contrast MR#: [id number] Acct: [id number] Name: ITZEL ALONZO Rep #: [id number] : 1950 M 74 From: Joaquin Kiser PCP: SID Haro Status: ADM IN Study: Brain/Head W/WO Contrast Date of Exam: 5 Exam# [id number] Ordering Dr: Anthony Salgado MD PROCEDURE: BRAIN/HEAD [...] mass. No acute intracranial process. Reading Location: [id number] CC: TRAUMA COUNSELLOR-René Haji; Dr. Anthony Salgado MD Route Returner: Signed Normal [facility] CBC-Complete Blood Cnt No Di ffon 05-12-2025 Erythrocyte distribution width (RBC) [Ratio] 18.6 % High 11.6-14.6 [facility] Comment on above: Performed By: #### L 503.5510, L500.3400, L500.2500, L100.0100 #### [facility] [address] [place], [address] Hematocrit (Bld) [Volume fraction] 27.8 % Low 40-54 [facility] Comment on above: Performed By: #### L 503.5510, L500.3400, L500.2500, L100.0100 #### [facility] [address] [place], [address] Hemoglobin (Bld) [Mass/Vol] 8.4 g/dL Low 13.0-16.5 [facility] Comment on above: Performed By: #### L 503.5510, L500.3400, L500.2500, L100.0100 #### [facility] [address] [place], [address] MCH (RBC) [Entitic mass] 19.6 pg Low 27.0-32.0 [facility] Comment on above: Performed By: #### L 503.5510, L500.3400, L500.2500, L100.0100 #### [facility] [address] [place], [address] MCHC (RBC) [Mass/Vol] 30.2 g/dL Low 32-36 [facility] Comment on above: Performed By: #### L 503.5510, L500.3400, L500.2500, L100.0100 #### [facility] [address] [place], [address] MCV (RBC) [Entitic vol] 65.0 fL Low 80-94 [facility] Comment on above: Performed By: #### L 503.5510, L500.3400, L500.2500, L100.0100 #### [facility] [address] [place], [address] Platelet mean volume (Bld) [Entitic vol] 9.8 fL Normal 6.2-12.0 [facility] Comment on above: Performed By: #### L 503.5510, L500.3400, L500.2500, L100.0100 #### [facility] [address] [place], [address] Platelets (Bld) [#/Vol] 411 10*3/uL Normal 150-450 [facility] Comment on above: Performed By: #### L 503.5510, L500.3400, L500.2500, L100.0100 #### [facility] [address] [place], [address] RBC (Bld) [#/Vol] 4.28 10*6/uL Low 4.6-6.2 [facility] Comment on above: Performed By: #### L 503.5510, L500.3400, L500.2500, L100.0100 #### [facility] [address] [place], [address] RDW SD 43.0 fl Normal 35.1-43.9 [facility] Comment on above: Performed By: #### L 503.5510, L500.3400, L500.2500, L100.0100 #### [facility] [address] [place], [address] WBC (Bld) [#/Vol] 13.2 10*3/uL High 4.4-11.0 [facility] Comment on above: Performed By: #### L 503.5510, L500.3400, L500.2500, L100.0100 #### [facility] [address] [place], [address] Electrocardiogram reportOrde red By: Kevin Joshi on 06-18-2025 EKG study [facility] Cardiovascular Services [address] [place] [address] 12 Lead EKG 05/11/25 1709 MR#: [id number] Acct: [id number] Name: ITZEL ALONZO Rep #:[id number] : 1950 74 From: Kevin Joshi MD Attending Dr: Dr. Anthony Salgado MD Status: ADM IN Ordering Dr: Monty Clarke MD Date: 05/11 Location: [facility] Sex: M AA Admitted: 05/11/25 Test Reason : GENERAL Blood Pressure : */* mmHG Vent. Rate : 91 BPM Atrial Rate : 91 BPM P-R Int : 150 ms QRS Dur : 90 ms QT Int : 386 ms P-R-T Axes : 47 58 53 degrees QTcB Int : 474 ms Normal sinus rhythm Normal ECG Confirmed by KEVIN JOSHI MD ([id number]), photograph editor JOSE NYE ([id number]) on 05/12/2025 8:27:44 AM Referred By: Confirmed By: KEVIN JOSHI MD 05/12/25 0827 Date _ Kevin Joshi MD CC: TRAUMA COUNSELLORNissa Haji; Dr. Anthony Salgado MD; Dr. Monty Clarke MD ~ Signed [facility] Other Phone: Laboratory - Chemistry and C hemistry - challengeOrdered By: Lane Stanley on 05-12-2025 AST [Catalytic activity/Vol] 23 U/L <38 [facility] Liver Profileon 05-12-2025 Albumin [Mass/Vol] 3.3 g/dL Low 3.4-4.8 [facility] Comment on above: Performed By: #### L 503.9597, L500.3400, L500.2500, L100.0100 #### [facility] [address] [place], [address] ALK PHOS 131 U/L High 40-129 [facility] Comment on above: Performed By: #### L 503.5510, L500.3400, L500.2500, L100.0100 #### [facility] [address] [place], [address] ALT [Catalytic activity/Vol] 11 U/L Normal <=46 [facility] Comment on above: Performed By: #### L 503.5510, L500.3400, L500.2500, L100.0100 #### [facility] [address] [place], [address] AST [Catalytic activity/Vol] 23 U/L Normal <=37 [facility] Comment on above: Performed By: #### L 503.5510, L500.3400, L500.2500, L100.0100 #### [facility] [address] [place], [address] Bilirubin [Mass/Vol] 0.44 mg/dL Normal 0.00-1.30 [facility] Comment on above: Performed By: #### L 503.5510, L500.3400, L500.2500, L100.0100 #### [facility] [address] [place], [address] Bilirubin.direct [Mass/Vol] 0.23 mg/dL Normal 0.00-0.30 [facility] Comment on above: Performed By: #### L 503.5510, L500.3400, L500.2500, L100.0100 #### [facility] [address] [place], [address] Globulin (S) [Mass/Vol] 3.8 g/dL Normal 2.2-4.2 [facility] Comment on above: Performed By: #### L 503.5510, L500.3400, L500.2500, L100.0100 #### [facility] [address] [place], [address] T PROT 7.1 g/dL Normal 5.9-8.4 [facility] Comment on above: Performed By: #### L 503.5534, L500.0250, L500.2500, L100.0100 #### [facility] [address] [place], [address] No Panel InformationOrdered By: Lane Stanley on 05-12-2025 23 U/L <38 [facility] Serum globulin measurementOr dered By: Lane Stanley on 05-12-2025 Globulin (S) [Mass/Vol] 3.8 g/dL 2.2-4.2 [facility] Serum or plasma alanine stahl otransferase (ALT) measurementOrdered By: Lane Stanley on 05-12-2025 ALT [Catalytic activity/Vol] 11 U/L <47 [facility] Serum or plasma albumin ivania urement (mass/volume)Ordered By: Lane Stanley on 05-12-2025 Albumin [Mass/Vol] 3.3 g/dL Low 3.4-4.8 [facility] Serum or plasma alkaline brittany sphatase measurementOrdered By: Lane Stanley on 05-12-2025 ALP [Catalytic activity/Vol] 131 U/L High 40-129 [facility] Total proteinOrdered By: Eileen Stanley on 05-12-2025 Protein [Mass/Vol] 7.1 g/dL 5.9-8.4 [facility] 12 Lead EKGon 05-11-2025 12 Lead EKG [facility] Cardiovascular Services [address] [place] [address] 12 Lead EKG 05/11/25 1709 MR#: [id number] Acct: [id number] Name: ITZEL ALONZO Rep #: [id number] : 1950 74 From: Kevin Joshi MD Attending Dr: Dr. Anthony Salgado MD Status: ADM IN Ordering Dr: Monty Clarke MD Date: 05/11/25 Location: [facility] Sex: M AA Admitted: 05/11/25 Test Reason : GENERAL Blood Pressure : */* mmHG Vent. Rate : 91 BPM Atrial Rate : 91 BPM P-R Int : 150 ms QRS Dur : 90 ms QT Int : 386 ms P-R-T Axes : 47 58 53 degrees QTcB Int : 474 ms Normal sinus rhythm Normal ECG Confirmed by KEVIN JOSHI MD ([id number]), photograph editor JOSE NYE ([id number]) on 05/12/2025 8:27:44 AM Referred By: Confirmed By: KEVIN JOSHI MD 05/12/25826 Date Kevin Joshi MD CC: SID Haji; Dr. Anthony Salgado MD; Dr. Monty Clarke MD Signed Normal [facility] Absolute lymphocyte countOrd ered By: Monty Clarke on 05-11-2025 Lymphocytes Auto (Unsp spec) [#/Vol] 2.13 10*3/uL 0.83-4.51 [facility] Absolute neutrophil countOrd ered By: Montymaria e Clarke on 05-11-2025 Neutrophils (Bld) [#/Vol] 8.6 10*3/uL High 2.0-7.7 [facility] Anion gap in Serum or Plasma Ordered By: Monty Clarke on 05-11-2025 Anion gap [Moles/Vol] 11 mmol/L 5-15 [facility] Automated lymphocyte count a s percentage of total leukocytesOrdered By: Montymaria e Clarke on 05-11-2025 Lymphocytes/100 WBC Auto (Unsp spec) 18.4 % Low 19-41 [facility] BUN/creatinine ratioOrdered By: Monty Clarke on 05-11-2025 Urea nitrogen/Creatinine [Mass ratio] 11.3 mg/mg 10-20 [facility] Basophil percentageOrdered B y: Monty Clarke on 05-11-2025 Basophils/100 WBC (Bld) 0.3 % 0-1 [facility] Bilirubin, totalOrdered By: Monty Clarke on 05-11-2025 Bilirubin [Mass/Vol] 0.41 mg/dL 0.00-1.30 [facility] CBC W/Diff, Automatedon 04-25 Absolute Lymph 2.13 X10 3/uL Normal 0.83-4.51 [facility] Comment on above: Performed By: #### L 503.5510, L500.3400, L500.2500, L100.0100 #### [facility] [address] [place], [address] Absolute Neut 8.6 X10 3/uL High 2.0-7.7 [facility] Comment on above: Performed By: #### L 503.5510, L500.3400, L500.2500, L100.0100 #### [facility] [address] [place], [address] Basophils/100 WBC (Bld) 0.3 % Normal 0-1 [facility] Comment on above: Performed By: #### L 503.5510, L500.3400, L500.2500, L100.0100 #### [facility] [address] [place], [address] Eosinophils/100 WBC (Bld) 0.8 % Normal 0-5 [facility] Comment on above: Performed By: #### L 503.5510, L500.3400, L500.2500, L100.0100 #### [facility] [address] [place], [address] Erythrocyte distribution width (RBC) [Ratio] 19.0 % High 11.6-14.6 [facility] Comment on above: Performed By: #### L 503.5510, L500.3400, L500.2500, L100.0100 #### [facility] [address] [place], [address] Hematocrit (Bld) [Volume fraction] 28.9 % Low 40-54 [facility] Comment on above: Performed By: #### L 503.5510, L500.3400, L500.2500, L100.0100 #### [facility] [address] [place], [address] Hemoglobin (Bld) [Mass/Vol] 8.7 g/dL Low 13.0-16.5 [facility] Comment on above: Performed By: #### L 503.5510, L500.3400, L500.2500, L100.0100 #### [facility] [address] [place], [address] IG% 0.400 Normal 0.0-0.9 [facility] Comment on above: Result Comment: IG% - Immature Granulocytes (promyelocytes, myelocytes and metamyelocytes) > 1% indicates that a LEFT SHIFT is Present. Performed By: #### L 503.5510, L500.3400, L500.2500, L100.0100 #### [facility] [address] [place], [address] Lymphocytes/100 WBC (Bld) 18.4 % Low 19-41 [facility] Comment on above: Performed By: #### L 503.5510, L500.3400, L500.2500, L100.0100 #### [facility] [address] [place], [address] MCH (RBC) [Entitic mass] 20.0 pg Low 27.0-32.0 [facility] Comment on above: Performed By: #### L 503.5510, L500.3400, L500.2500, L100.0100 #### [facility] [address] [place], [address] MCHC (RBC) [Mass/Vol] 30.1 g/dL Low 32-36 [facility] Comment on above: Performed By: #### L 503.5510, L500.3400, L500.2500, L100.0100 #### [facility] [address] [place], [address] MCV (RBC) [Entitic vol] 66.4 fL Low 80-94 [facility] Comment on above: Performed By: #### L 503.5510, L500.3400, L500.2500, L100.0100 #### [facility] [address] [place], [address] Monocytes/100 WBC (Bld) 5.8 % Normal 0-10 [facility] Comment on above: Performed By: #### L 503.5510, L500.3400, L500.2500, L100.0100 #### [facility] [address] [place], [address] Neutrophils/100 WBC (Bld) 74.3 % High 47-70 [facility] Comment on above: Performed By: #### L 503.5510, L500.3400, L500.2500, L100.0100 #### [facility] [address] [place], [address] Nucleated RBC (Bld) [#/Vol] 0 10*3/uL Normal 0-5 [facility] Comment on above: Performed By: #### L 503.5510, L500.3400, L500.2500, L100.0100 #### [facility] [address] [place], [address] Platelet mean volume (Bld) [Entitic vol] 9.5 fL Normal 6.2-12.0 [facility] Comment on above: Performed By: #### L 503.5510, L500.3400, L500.2500, L100.0100 #### [facility] [address] [place], [address] Platelets (Bld) [#/Vol] 404 10*3/uL Normal 150-450 [facility] Comment on above: Performed By: #### L 503.5510, L500.3400, L500.2500, L100.0100 #### [facility] [address] [place], [address] RBC (Bld) [#/Vol] 4.35 10*6/uL Low 4.6-6.2 [facility] Comment on above: Performed By: #### L 503.5510, L500.3400, L500.2500, L100.0100 #### [facility] [address] [place], [address] RDW SD 44.7 fl High 35.1-43.9 [facility] Comment on above: Performed By: #### L 503.5510, L500.3400, L500.2500, L100.0100 #### [facility] [address] [place], [address] WBC (Bld) [#/Vol] 11.6 10*3/uL High 4.4-11.0 [facility] Comment on above: Performed By: #### L 503.5510, L500.3400, L500.2500, L100.0100 #### [facility] [address] [place], [address] Carbon dioxide, total [Moles /volume] in Central venous bloodOrdered By: Monty Clarke on 05-11-2025 CO2 [Moles/Vol] 26.3 mmol/L 21.0-32.0 [facility] Chest PA and Lateralon 05-11 Chest PA and Lateral [facility] Imaging Services [address] [place] [address] Chest PA and Lateral MR#: [id number] Acct: [id number] Name: ITZEL ALONZO Rep #: [id number] : 1950 M 74 From: Jamie Suero DO PCP: SID Haro Status: REG ER Study: Chest PA and Lateral Date of Exam: 05/11/25 Exam# [id number] Ordering Dr: Monty Clarke MD PROCEDURE: CHEST [...] associated with end-stage honeycomb fibrosis. Reading Location[facility] CC: SID Haji; Dr. Monty Clarke MD Route Returner: Signed Normal [facility] Chloride assayOrdered By: Karin Clarke on 05-11-2025 Chloride [Moles/Vol] 99 mmol/L 98-108 [facility] Comprehensive Metabolic Prof ilon 05-11-2025 Albumin [Mass/Vol] 3.3 g/dL Low 3.4-4.8 [facility] Comment on above: Performed By: #### L 503.5510, L500.3400, L500.2500, L100.0100 #### [facility] [address] [place], [address] Albumin/Globulin [Mass ratio] 0.8 {ratio} Low 0.9-2.4 [facility] Comment on above: Performed By: #### L 503.5510, L500.3400, L500.2500, L100.0100 #### [facility] [address] [place], [address] ALK PHOS 128 U/L Normal 40-129 [facility] Comment on above: Performed By: #### L 503.5510, L500.3400, L500.2500, L100.0100 #### [facility] [address] [place], [address] ALT [Catalytic activity/Vol] 12 U/L Normal <=46 [facility] Comment on above: Performed By: #### L 503.5510, L500.3400, L500.2500, L100.0100 #### [facility] [address] [place], [address] AST [Catalytic activity/Vol] 23 U/L Normal <=37 [facility] Comment on above: Performed By: #### L 503.5510, L500.3400, L500.2500, L100.0100 #### [facility] [address] [place], [address] Bilirubin [Mass/Vol] 0.41 mg/dL Normal 0.00-1.30 [facility] Comment on above: Performed By: #### L 503.5510, L500.3400, L500.2500, L100.0100 #### [facility] [address] [place], [address] BUN/CRE 11.3 RATIO Normal 10-20 [facility] Comment on above: Performed By: #### L 503.5510, L500.3400, L500.2500, L100.0100 #### [facility] [address] [place], [address] Calcium [Mass/Vol] 11.2 mg/dL High 7.6-11.0 [facility] Comment on above: Performed By: #### L 503.5510, L500.3400, L500.2500, L100.0100 #### [facility] [address] [place], [address] Chloride [Moles/Vol] 99 mmol/L Normal 98-108 [facility] Comment on above: Performed By: #### L 503.5510, L500.3400, L500.2500, L100.0100 #### [facility] [address] [place], [address] CO2 [Moles/Vol] 26.3 mmol/L Normal 21.0-32.0 [facility] Comment on above: Performed By: #### L 503.5510, L500.3400, L500.2500, L100.0100 #### [facility] [address] [place], [address] Creatinine [Mass/Vol] 1.20 mg/dL Normal 0.70-1.20 [facility] Comment on above: Performed By: #### L 503.5510, L500.3400, L500.2500, L100.0100 #### [facility] [address] [place], [address] ECRCL 49.04 ml/min Low 50-250 [facility] Comment on above: Performed By: #### L 503.5510, L500.3400, L500.2500, L100.0100 #### [facility] [address] [place], [address] GAP 11 Normal 5-15 [facility] Comment on above: Performed By: #### L 503.5510, L500.3400, L500.2500, L100.0100 #### [facility] [address] [place], [address] GFR/1.73 sq M.predicted among non-blacks MDRD (S/P/Bld) [Vol rate/Area] 63 mL/min/{1.73_m2} Normal >60 [facility] Comment on above: Result Comment: mL/m in/1.73m2 CKD-EPI Creatinine Equation (2020) Performed By: #### L 503.5510, L500.3400, L500.2500, L100.0100 #### [facility] [address] [place], [address] Globulin (S) [Mass/Vol] 4.2 g/dL Normal 2.2-4.2 [facility] Comment on above: Performed By: #### L 503.5510, L500.3400, L500.2500, L100.0100 #### [facility] [address] [place], [address] Glucose [Mass/Vol] 244 mg/dL High 70-99 [facility] Comment on above: Performed By: #### L 503.5510, L500.3400, L500.2500, L100.0100 #### [facility] [address] [place], [address] Potassium [Moles/Vol] 3.5 mmol/L Normal 3.3-5.1 [facility] Comment on above: Performed By: #### L 503.5510, L500.3400, L500.2500, L100.0100 #### [facility] [address] [place], [address] Sodium [Moles/Vol] 136 mmol/L Normal 133-145 [facility] Comment on above: Performed By: #### L 503.5510, L500.3400, L500.2500, L100.0100 #### [facility] [address] [place], [address] T PROT 7.4 g/dL Normal 5.9-8.4 [facility] Comment on above: Performed By: #### L 503.5510, L500.3400, L500.2500, L100.0100 #### [facility] [address] [place], [address] Urea nitrogen [Mass/Vol] 14 mg/dL Normal 4-19 [facility] Comment on above: Performed By: #### L 503.5510, L500.3400, L500.2500, L100.0100 #### [facility] [address] [place], [address] Emergency Department Summary on 05-11-2025 Emergency Department Summary [facility] Medical Records Department [address] [place] [address] Emergency Department Summary 05/11/25 MR#: [id number] Acct: [id number] Name: ITZEL ALONZO Rep #: [id number] : 1950 74 From: Monty Clarke MD PCP: Carlene Haji, SID Status:ADM IN Location: [place] [address] Monty Clarke MD on 05/11/25 at 2107 EKG was obtained 1709 interpreted by me at 1711. The EKG is normal. Rate is 91. VT interval, QRS duration, QT duration and axis are all normal. 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 [...] No Recent Illness/Hospitalizati on: Yes [facility] Medical History (Updated 05/11/25 @ 18:41 [...] smoker tobacco (more content not included)... Normal [facility] Eosinophil percentageOrdered By: Montymaria e Clarke on 05-11-2025 Eosinophils/100 WBC (Bld) 0.8 % 0-5 [facility] Erythrocyte distribution wid th ratioOrdered By: Montymaria e Clarke on 05-11-2025 Erythrocyte distribution width (RBC) [Ratio] 19.0 % High 11.6-14.6 [facility] Erythrocyte distribution wid th standard deviationOrdered By: Montymaria e Clarke on 05-11-2025 Erythrocyte distribution width (RBC) [Ratio] 44.7 fl High 35.1-43.9 [facility] Glomerular filtration rate ( GFR) estimation/1.73 sq m using serum, plasma, or whole bOrdered By: Montymaria e Clarke on 05-11-2025 GFR/1.73 sq M.predicted among non-blacks MDRD (S/P/Bld) [Vol rate/Area] 63 mL/min/{1.73_m2} >60 [facility] Comment on above: mL/min/1.73m2 CKD-EP I Creatinine Equation (2020) H AND P Exam - Hospitaliston 05-11-2025 H&P Exam - Hospitalist [facility] Medical Records Department [address] [place] [address] H P Exam - Hospitalist 05/11/251918 MR#: [id number] Acct: [id number] Name: ITZEL ALONZO Rep #: [id number] : 1950 74 From: Lane Stanley DO PCP: Carlene N Adithya, TRAUMA COUNSELLOR-C Status:ADM IN Location: [facility] [id number] HPI - General General Date of Admission: 05/11/25 Date of Service: 05/11/25 Chief Complaint: Worsening fatigue, weakness and confusion HPI Narrative ITZEL ALONZO, is a 74 M who presented to [facility] ED on 05/11/2025 with worsening fatigue, weakness and confusion. Patient has been seen in our ED recently but he receives his care through [facility]. He was diagnosed with right-sided lung cancer about 1 year ago. It appears this diagnosis was confirmed on bronchial biopsy. Patient declined active treatment at that time and preferred close monitoring. However, patient has issues with transportation and has had difficulty getting to his appointments with oncology at the [facility]. He lives at home with his significant [...] phone with the transfer nurse with the [facility] liliana goodman. Nurse noted that transfer could be initiated there but as the admitting physician was gone for the day, transfer will not happen until tomorrow at the earliest. [facility] Medical History (Updated 05/12/25 @ 00:00 [...] household members (more content not included)... Normal [facility] Hematocrit Auto (Bld) [Volum e fraction]Ordered By: Monty Clarke on 05-11-2025 Hematocrit (Bld) [Volume fraction] 28.9 % Low 40-54 [facility] Hemoglobin measurementOrdere d By: Monty Clarke on 05-11-2025 Hemoglobin (Bld) [Mass/Vol] 8.7 g/dL Low 13.0-16.5 [facility] Immature granulocytes/100 WB C Auto (Bld)Ordered By: Monty Clarke on 05-11-2025 Immature granulocytes/100 WBC (Bld) 0.400 % 0.0-0.9 [facility] Comment on above: IG% - Immature Granu locytes (promyelocytes, myelocytes and metamyelocytes) > 1% indicates that a LEFT SHIFT is Present. L499.0042on 05-11-2025 Trop T High Sen 37 ng/L High <=22 [facility] Comment on above: Performed By: #### L 400.0001 #### [facility] [address] [place], [address] L499.0043on 05-11-2025 Trop T High Sen 39 ng/L High <=22 [facility] Comment on above: Performed By: #### L 503.5510, L500.3400, L500.2500, L100.0100 #### [facility] [address] [place], [address] L501.4021on 05-11-2025 Trop T High Sen 39 ng/L High <=22 [facility] Comment on above: Performed By: #### L 400.0001 #### [facility] [address] [place], [address] Laboratory - Chemistry and C hemistry - challengeOrdered By: Monty Clarke on 05-11-2025 AST [Catalytic activity/Vol] 23 U/L <38 [facility] Lactic Acidon 05-11-2025 Lactate [Moles/Vol] 1.8 mmol/L Normal 0.0-2.0 [facility] Comment on above: Order Comment: Y Performed By: #### L 503.3574, L500.3400, L500.2500, L100.0100 #### [facility] [address] [place], [address] Lactic acid measurementOrder ed By: Monty Clarke on 05-11-2025 Lactate [Moles/Vol] 1.8 mmol/L 0.0-2.0 [facility] MCV (mean corpuscular volume ) determinationOrdered By: Monty Clarke on 05-11-2025 MCV (RBC) [Entitic vol] 66.4 fL Low 80-94 [facility] Mean corpuscular hemoglobin (MCH) determinationOrdered By: Monty Clarke on 05-11-2025 MCH (RBC) [Entitic mass] 20.0 pg Low 27.0-32.0 [facility] Mean corpuscular hemoglobin concentration (MCHC) determinationOrdered By: Monty Clarke on 05-11-2025 MCHC (RBC) [Mass/Vol] 30.1 g/dL Low 32-36 [facility] Mean platelet volume determi nationOrdered By: Monty Clarke on 05-11-2025 Platelet mean volume (Bld) [Entitic vol] 9.5 fL 6.2-12.0 [facility] Monocyte percentageOrdered B y: Monty Clarke on 05-11-2025 Monocytes/100 WBC (Bld) 5.8 % 0-10 [facility] Neutrophil percentageOrdered By: Monty Clarke on 05-11-2025 Neutrophils/100 WBC (Bld) 74.3 % High 47-70 [facility] Nucleated red blood cell per centageOrdered By: Monty Clarke on 05-11-2025 Nucleated RBC/100 WBC (Bld) [Ratio] 0 % 0-5 [facility] Platelet countOrdered By: [facility] Clarke on 05-11-2025 Platelets (Bld) [#/Vol] 404 10*3/uL 150-450 [facility] Potassium measurement (mass/ volume)Ordered By: Monty Clarke on 05-11-2025 Potassium (Unsp spec) [Mass/Vol] 3.5 mmol/L 3.3-5.1 [facility] RBC Auto (Bld) [#/Vol]Ordere d By: Monty Clarke on 05-11-2025 RBC (Bld) [#/Vol] 4.35 10*6/uL Low 4.6-6.2 [facility] Serum creatinine measurement (mass/volume)Ordered By: Monty Clarke on 05-11-2025 Creatinine [Mass/Vol] 1.20 mg/dL 0.70-1.20 [facility] Serum globulin measurementOr dered By: Monty Clarke on 05-11-2025 Globulin (S) [Mass/Vol] 4.2 g/dL 2.2-4.2 [facility] Serum glucose measurement (m ass/volume)Ordered By: Monty Clarke on 05-11-2025 Glucose [Mass/Vol] 244 mg/dL High 70-99 [facility] Serum or plasma alanine stahl otransferase (ALT) measurementOrdered By: Monty Clarke on 05-11-2025 ALT [Catalytic activity/Vol] 12 U/L <47 [facility] Serum or plasma albumin ivania urement (mass/volume)Ordered By: Monty Clarke 05-11-2025 Albumin [Mass/Vol] 3.3 g/dL Low 3.4-4.8 [facility] Serum or plasma albumin/glob ulin mass ratioOrdered By: Monty Clarke 05-11-2025 Albumin/Globulin [Mass ratio] 0.8 {ratio} Low 0.9-2.4 [facility] Serum or plasma alkaline brittany sphatase measurementOrdered By: Montymaria e Clarke on 05-11-2025 ALP [Catalytic activity/Vol] 128 U/L 40-129 [facility] Serum or plasma calcium ivania urement (mass/volume)Ordered By: Monty Clarke on 05-11-2025 Calcium [Mass/Vol] 11.2 mg/dL High 7.6-11.0 [facility] Serum or plasma urea nitroge n measurement (mass/volume)Ordered By: Monty Clarke on 05-11-2025 Urea nitrogen [Mass/Vol] 14 mg/dL 4-19 [facility] Sodium levelOrdered By: Monty Clarke on 05-11-2025 Sodium [Moles/Vol] 136 mmol/L 133-145 [facility] Stool Occult Blood iFOBon STOB Negative Normal [facility] Comment on above: Performed By: #### L 500.2500, L501.5200, L100.0100, L501.2300 #### [facility] [address] [place], [address] Stool gastrointestinal hemog lobin detection by immunologic methodOrdered By: Monty Clarke on 05-11-2025 Lower GI hemoglobin IA Ql (Stl) [facility] Total proteinOrdered By: Monty Clarke on 05-11-2025 Protein [Mass/Vol] 7.4 g/dL 5.9-8.4 [facility] Troponin T.cardiac [Mass/vol ume] in Serum or Plasma by High sensitivity methodOrdered By: Monty Clarke on 05-11-2025 Troponin T.cardiac High sensitivity method [Mass/Vol] 39 ng/L High <22 [facility] Troponin T.cardiac High sensitivity method [Mass/Vol] 37 ng/L High <22 [facility] Troponin T.cardiac High sensitivity method [Mass/Vol] 39 ng/L High <22 [facility] Comment on above: Delta: 26 on 5-2107 White blood cell (WBC) count Ordered By: Monty Clarke on 05-11-2025 WBC (Bld) [#/Vol] 11.6 10*3/uL High 4.4-11.0 [facility] 12 Lead EKGon 05-04-2025 12 Lead EKG [facility] Cardiovascular Services [address] [place] [address] 12 Lead EKG 05/04/25 1129 MR#: [id number] Acct: [id number] Name: ITZEL ALONZO Rep #: [id number] : 1950 74 From: Adams Connell MD [...] rhythm Normal ECG Confirmed by Adams Connell ([id number]), photograph editor KATIE ABRAHAM ([id number]) on 05/06/2025 6:12:43 AM Referred By: Confirmed By: Adams Connell 05/06/25611 Date Adams Connell MD CC: SID Haji; Dr. Ike Dawson, DO Signed Normal [facility] Absolute lymphocyte countOrd ered By: Ike Dawson on 05-04-2025 Lymphocytes Auto (Unsp spec) [#/Vol] 3.37 10*3/uL 0.83-4.51 [facility] Absolute neutrophil countOrd ered By: Ike Dawson on 05-04-2025 Neutrophils (Bld) [#/Vol] 7.0 10*3/uL 2.0-7.7 [facility] Activated partial thrombopla stin time (aPTT) in platelet poor plasma by coagulation aOrdered By: Ike Dawson on 05-04-2025 aPTT Coag (PPP) [Time] 31.9 s 24.1-36.2 [facility] Anion gap in Serum or Plasma Ordered By: Ike Dawson on 05-04-2025 Anion gap [Moles/Vol] 11 mmol/L - [facility] Automated lymphocyte count a s percentage of total leukocytesOrdered By: Ike Dawson on 05-04-2025 Lymphocytes/100 WBC Auto (Unsp spec) 29.4 % - [facility] BUN/creatinine ratioOrdered By: Ike Dawson on 05-04-2025 Urea nitrogen/Creatinine [Mass ratio] 16.9 mg/mg - [facility] Basic Metabolic Profile (BMP )on 05-04-2025 BUN/CRE 16.9 RATIO Normal 09-13 [facility] Comment on above: Performed By: #### L 503.5510, L500.3400, L500.2500, L100.0100 #### [facility] [address] [place], [address] ECRCL 50.60 ml/min Normal 50-250 [facility] Comment on above: Performed By: #### L 503.5510, L500.3400, L500.2500, L100.0100 #### [facility] [address] [place], [address] GAP 11 Normal 5-15 [facility] Comment on above: Performed By: #### L 503.5510, L500.3400, L500.2500, L100.0100 #### [facility] [address] [place], [address] Potassium [Moles/Vol] 4.2 mmol/L Normal 3.3-5.1 [facility] Comment on above: Performed By: #### L 503.5510, L500.3400, L500.2500, L100.0100 #### [facility] [address] [place], [address] Basophil percentageOrdered B y: Ike Le on 05-04-2025 Basophils/100 WBC (Bld) 0.3 % 0-1 [facility] Blood polychromasia detectio n by light microscopyOrdered By: Ike Dawson on 05-04-2025 Polychromasia LM Ql (Bld) 1+ [facility] Brain/Head without Contrasto n 05-04-2025 Brain/Head without Contrast [facility] Imaging Services [address] [place] [address] Brain/Head without Contrast MR#: [id number] Acct: [id number] Name: ITZEL ALONZO Rep #: [id number] : 1950 M 74 From: Uche Kiser PCP: SID Haro Status: REG ER Study: Brain/Head without Contrast Date of Exam: 04/25 Exam# [id number] Ordering Dr: Ike Dawson DO PROCEDURE: BRAIN/HEAD [...] or other acute process noted. Reading Location: [address] CC: SID Haji; Dr. Ike Dawson DO Route Returner: Signed Normal [facility] CBC W/Diff, AutomatedOrdered By: Ike Dawson on 05-04-2025 Anisocytosis Ql (Bld) 1+ Normal [facility] Comment on above: Performed By: #### L 503.5510, L500.3400, L500.2500, L100.0100 #### [facility] [address] [place], [address] CBC W/Diff, Automatedon 04-25 PLT EST A Normal ADEQ [facility] Comment on above: Performed By: #### L 503.5510, L500.3400, L500.2500, L100.0100 #### [facility] [address] [place], [address] POLYCHROMASIA 1+ Normal [facility] Comment on above: Performed By: #### L 503.5510, L500.3400, L500.2500, L100.0100 #### [facility] [address] [place], [address] Carbon dioxide, total [Moles /volume] in Central venous bloodOrdered By: Ike Dawson on 05-04-2025 CO2 [Moles/Vol] 27.6 mmol/L Normal 21.0-32.0 [facility] Comment on above: Performed By: #### L 503.5510, L500.3400, L500.2500, L100.0100 #### [facility] [address] [place], [address] Chest without Contraston Chest without Contrast [facility] Imaging Services [address] [place] [place] [address] Chest without Contrast MR#: [id number] Acct: [id number] Name: ITZEL ALONZO Carlie Rep #: [id number] : 1950 M 74 From: Lion torres MD PCP: Carlene Haji, TRAUMA COUNSELLOR-C Status: REG ER Study: Chest without Contrast Date of Exam: 05/04/25 Exam# [id number] Ordering Dr: Ike Dawson DO PROCEDURE: CHEST [...] at the right lung base. Reading Location: [facility] CC: LUIS MIGUELC Carlene Haji; Dr. Ike Dawson DO Route Returner: Signed Normal [facility] Chloride assayOrdered By: Jacinto Dawson on 05-04-2025 Chloride [Moles/Vol] 97 mmol/L Low 98-108 [facility] Comment on above: Performed By: #### L 503.5510, L500.3400, L500.2500, L100.0100 #### [facility] [address] [place], [address] Emergency Department Summary on 05-04-2025 Emergency Department Summary [facility] Medical Records Department [address] [place] [address] Emergency Department Summary 05/04/25 MR#: [id number] Acct: [id number] Name: ITZEL ALONZO Rep #: [id number] : 1950 74 From: Ike Nuñez PCP: [...] Been using intermittently last use yesterday evening. [facility] Medical History Kidney stones Neuropathy PTSD [...] well no (more content not included)... Normal [facility] Eosinophil percentageOrdered By: Ike Daswon on 05-04-2025 Eosinophils/100 WBC (Bld) 1.5 % 0-5 [facility] Erythrocyte distribution wid th ratioOrdered By: Ike Dawson on 05-04-2025 Erythrocyte distribution width (RBC) [Ratio] 20.1 % High 11.6-14.6 [facility] Erythrocyte distribution wid th standard deviationOrdered By: Ike Dawson on 05-04-2025 Erythrocyte distribution width (RBC) [Ratio] 45.7 fl High 35.1-43.9 [facility] Glomerular filtration rate ( GFR) estimation/1.73 sq m using serum, plasma, or whole bOrdered By: Ike Dawson on 05-04-2025 GFR/1.73 sq M.predicted among non-blacks MDRD (S/P/Bld) [Vol rate/Area] 67 mL/min/{1.73_m2} Normal >60 [facility] Comment on above: mL/min/1.73m2 CKD-EP I Creatinine Equation (2020) Result Comment: mL/m in/1.73m2 CKD-EPI Creatinine Equation (2020) Performed By: #### L 503.5510, L500.3400, L500.2500, L100.0100 #### [facility] [address] [place], [place] [address], [address] Hematocrit Auto (Bld) [Volum e fraction]Ordered By: Ike Dawson on 05-04-2025 Hematocrit (Bld) [Volume fraction] 32.4 % Low 40-54 [facility] Hemoglobin measurementOrdere d By: Ike Dawson on 05-04-2025 Hemoglobin (Bld) [Mass/Vol] 9.8 g/dL Low 13.0-16.5 [facility] Immature granulocytes/100 WB C Auto (Bld)Ordered By: Ike Dawson on 05-04-2025 Immature granulocytes/100 WBC (Bld) 0.500 % 0.0-0.9 [facility] Comment on above: IG% - Immature Granu locytes (promyelocytes, myelocytes and metamyelocytes) > 1% indicates that a LEFT SHIFT is Present. International normalized rat io (INR) calculationOrdered By: Ike Dawson on 05-04-2025 INR Coag (Bld) [Relative time] 1.1 {INR} [facility] MCV (mean corpuscular volume ) determinationOrdered By: Ike Dawson 05-04-2025 MCV (RBC) [Entitic vol] 65.9 fL Low 80-94 [facility] Mean corpuscular hemoglobin (MCH) determinationOrdered By: Ike Dawson on 05-04-2025 MCH (RBC) [Entitic mass] 19.9 pg Low 27.0-32.0 [facility] Mean corpuscular hemoglobin concentration (MCHC) determinationOrdered By: Ike Dawson on 05-04-2025 MCHC (RBC) [Mass/Vol] 30.2 g/dL Low 32-36 [facility] Mean platelet volume determi nationOrdered By: Ike Dawson on 05-04-2025 Platelet mean volume (Bld) [Entitic vol] 9.9 fL 6.2-12.0 [facility] Monocyte percentageOrdered B y: Ike Dawson on 05-04-2025 Monocytes/100 WBC (Bld) 6.9 % 0-10 [facility] Neutrophil percentageOrdered By: Ike Dawson on 05-04-2025 Neutrophils/100 WBC (Bld) 61.4 % 47-70 [facility] No Panel InformationOrdered By: Ike Dawson on 05-04-2025 1+ [facility] Nucleated red blood cell per centageOrdered By: Ike Dawson on 05-04-2025 Nucleated RBC/100 WBC (Bld) [Ratio] 0 % 0-5 [facility] Partial Thromboplast Timeon 05-04-2025 aPTT Coag (Bld) [Time] 31.9 s Normal 24.1-36.2 [facility] Comment on above: Performed By: #### L 503.5510, L500.3400, L500.2500, L100.0100 #### [facility] [address] [place], [address] Platelet countOrdered By: Jacinto Dawson on 05-04-2025 Platelets (Bld) [#/Vol] 412 10*3/uL 150-450 [facility] Platelet estimateOrdered By: Ike Dawson on 05-04-2025 Platelets LM Ql (Bld) A ADEQ [facility] Potassium measurement (mass/ volume)Ordered By: Ike Dawson on 05-04-2025 Potassium (Unsp spec) [Mass/Vol] 4.2 mmol/L 3.3-5.1 [facility] Prothrombin Time w/INRon INR Coag (PPP) [Relative time] 1.1 {INR} Normal [facility] Comment on above: Performed By: #### L 503.5510, L500.3400, L500.2500, L100.0100 #### [facility] [address] [place], [address] Prothrombin timeOrdered By: Ike Dawson on 05-04-2025 PT Coag (PPP) [Time] 14.8 s Normal 11.7-14.9 [facility] Comment on above: Performed By: #### L 503.5510, L500.3400, L500.2500, L100.0100 #### [facility] [address] [place], [address] RBC Auto (Bld) [#/Vol]Ordere d By: Ike Dawson on 05-04-2025 RBC (Bld) [#/Vol] 4.92 10*6/uL 4.6-6.2 [facility] Serum creatinine measurement (mass/volume)Ordered By: Ike Dawson on 05-04-2025 Creatinine [Mass/Vol] 1.14 mg/dL Normal 0.70-1.20 [facility] Comment on above: Performed By: #### L 503.5510, L500.3400, L500.2500, L100.0100 #### [facility] [address] [place], [address] Serum glucose measurement (m ass/volume)Ordered By: Ike Dawson on 05-04-2025 Glucose [Mass/Vol] 229 mg/dL High 70-99 [facility] Comment on above: Performed By: #### L 503.5510, L500.3400, L500.2500, L100.0100 #### [facility] [address] [place], [address] Serum or plasma calcium ivania urement (mass/volume)Ordered By: Ike Dawson on 05-04-2025 Calcium [Mass/Vol] 12.2 mg/dL High 7.6-11.0 [facility] Comment on above: Performed By: #### L 503.5510, L500.3400, L500.2500, L100.0100 #### [facility] [address] [place], [address] Serum or plasma urea nitroge n measurement (mass/volume)Ordered By: Ike Dawson on 05-04-2025 Urea nitrogen [Mass/Vol] 19 mg/dL Normal 4-19 [facility] Comment on above: Performed By: #### L 503.5510, L500.3400, L500.2500, L100.0100 #### [facility] [address] [place], [address] Shoulder min 2 Viewson 05-04 Shoulder min 2 Views [facility] Imaging Services [address] [place] [address] Shoulder min 2 Views MR#: [id number] Acct: [id number] Name: ITZEL ALONZO Rep #: [id number] : 1950 M 74 From: Lion torres MD PCP: Carlene Haji TRAUMA COUNSELLOR-René Status: REG ER Study: Shoulder min 2 Views Date of Exam: 05/04/25 Exam# [id number] Ordering Dr: Ike Dawson DO PROCEDURE: SHOULDER [...] with a CT scan recommended. Reading Location: [place] [address] CC: TRAUMA COUNSELLOR-C Carlene Haji; Dr. Ike Dawson DO Route Returner: Signed Normal [facility] Sodium levelOrdered By: Ike Dawson on 05-04-2025 Sodium [Moles/Vol] 136 mmol/L Normal 133-145 [facility] Comment on above: Performed By: #### L 503.5510, L500.3400, L500.2500, L100.0100 #### [facility] [address] [place], [address] Spine Cervical without Contr ason 05-04-2025 Spine Cervical without Contras [facility] Imaging Services [address] [place], [place] [address] Spine Cervical without Contras MR#: [id number] Acct: [id number] Name: ITZEL ALONZO Rep #: [id number] : 1950 M 74 From: Lion torres MD PCP: Carlene Haji, TRAUMA COUNSELLOR-C Status: REG ER Study: Spine Cervical without Contras Date of Exam: 0 05/04/25 Exam# [id number] Ordering Dr: Ike Dawson DO PROCEDURE: SPINE [...] Right upper lobe pulmonary mass. Reading Location: [facility] CC: SID Haji; Dr. Ike Dawson DO Route Returner: Signed Normal [facility] White blood cell (WBC) count Ordered By: Ike Dawson on 05-04-2025 WBC (Bld) [#/Vol] 11.5 10*3/uL High 4.4-11.0 [facility] Bedside Glucoseon 04-24-2025 FINGERSTICK GLU 137 mg/dL High 74-106 [facility] Comment on above: Result Comment: BELLA GEMENT OF PATIENT CARE PER NURSING PROTOCOL Performed By: #### L 503.5510, L500.3400, L500.2500, L100.0100 #### [facility] [address] [place], [place], [address] [facility] deOrdered By: Steven Tejeda on 04-24-2025 Glucose [Mass/Vol] 137 mg/dL High 74-106 [facility] Comment on above: MANAGEMENT OF PATIEN T CARE PER NURSING PROTOCOL L499.0043on 04-24-2025 Trop T High Sen Normal <=22 [facility] Comment on above: Result Comment: Asif espitia via OM: Ordered Performed By: #### L 400.0001 #### [facility] [address] [place], [address] 12 Lead EKGon 04-23-2025 12 Lead EKG [facility] Cardiovascular Services [address] [place] [address] 12 Lead EKG 04/23/252144 MR#: [id number] Acct: [id number] Name: ITZEL ALONZO Rep #: [id number] : 1950 74 From: Adams Connell MD [...] Normal ECG Confirmed by Adams Connell ([id number]), photograph editor KATIE ABRAHAM ([id number]) on 04/26/2025 10:51:11 AM Referred By: Confirmed By: Adams Connell 04/26/25 1051 Date Adams Connell MD CC: TRAUMA COUNSELLORNissa Haji; Dr. Steven Tejeda DO Signed Normal [facility] Absolute lymphocyte countOrd ered By: Steven Tejeda on 04-23-2025 Lymphocytes Auto (Unsp spec) [#/Vol] 3.56 10*3/uL 0.83-4.51 [facility] Absolute neutrophil countOrd ered By: Steven Tejeda on 04-23-2025 Neutrophils (Bld) [#/Vol] 8.4 10*3/uL High 2.0-7.7 [facility] Activated partial thrombopla stin time (aPTT) in platelet poor plasma by coagulation aOrdered By: Steven Tejeda on 04-23-2025 aPTT Coag (PPP) [Time] 27.9 s 24.1-36.2 [facility] Anion gap in Serum or Plasma Ordered By: Steven Tejeda on 04-23-2025 Anion gap [Moles/Vol] 11 mmol/L 5-15 [facility] Automated lymphocyte count a s percentage of total leukocytesOrdered By: Steven Tejeda on 04-23-2025 Lymphocytes/100 WBC Auto (Unsp spec) 27.6 % 19-41 [facility] BUN/creatinine ratioOrdered By: Steven Tejeda on 04-23-2025 Urea nitrogen/Creatinine [Mass ratio] 20.6 mg/mg High 10- [facility] Basic Metabolic Profile (BMP )on 04-23-2025 BUN/CRE 20.6 RATIO High 09-13 [facility] Comment on above: Performed By: #### L 503.5510, L500.3400, L500.2500, L100.0100 #### [facility] [address] [place], [address] Calcium [Mass/Vol] 10.3 mg/dL Normal 7.6-11.0 [facility] Comment on above: Performed By: #### L 503.5510, L500.3400, L500.2500, L100.0100 #### [facility] [address] [place], [address] Chloride [Moles/Vol] 101 mmol/L Normal 98-108 [facility] Comment on above: Performed By: #### L 503.5510, L500.3400, L500.2500, L100.0100 #### [facility] [address] [place], [address] CO2 [Moles/Vol] 22.9 mmol/L Normal 21.0-32.0 [facility] Comment on above: Performed By: #### L 503.5510, L500.3400, L500.2500, L100.0100 #### [facility] [address] [place], [address] Creatinine [Mass/Vol] 0.96 mg/dL Normal 0.70-1.20 [facility] Comment on above: Performed By: #### L 503.5510, L500.3400, L500.2500, L100.0100 #### [facility] [address] [place], [address] ECRCL 66.44 ml/min Normal 50-250 [facility] Comment on above: Performed By: #### L 503.5510, L500.3400, L500.2500, L100.0100 #### [facility] [address] [place], [address] GAP 11 Normal 5-15 [facility] Comment on above: Performed By: #### L 503.5510, L500.3400, L500.2500, L100.0100 #### [facility] [address] [place], [address] GFR/1.73 sq M.predicted among non-blacks MDRD (S/P/Bld) [Vol rate/Area] 82 mL/min/{1.73_m2} Normal >60 [facility] Comment on above: Result Comment: mL/m in/1.73m2 CKD-EPI Creatinine Equation (2020) Performed By: #### L 503.5510, L500.3400, L500.2500, L100.0100 #### [facility] [address] [place], [address] Glucose [Mass/Vol] 292 mg/dL High 70-99 [facility] Comment on above: Performed By: #### L 503.5510, L500.3400, L500.2500, L100.0100 #### [facility] [address] [place], [address] Potassium [Moles/Vol] 3.9 mmol/L Normal 3.3-5.1 [facility] Comment on above: Performed By: #### L 503.5510, L500.3400, L500.2500, L100.0100 #### [facility] [address] [place], [address] Sodium [Moles/Vol] 134 mmol/L Normal 133-145 [facility] Comment on above: Performed By: #### L 503.5510, L500.3400, L500.2500, L100.0100 #### [facility] [address] [place], [address] Urea nitrogen [Mass/Vol] 20 mg/dL High 4-19 [facility] Comment on above: Performed By: #### L 503.5510, L500.3400, L500.2500, L100.0100 #### [facility] [address] [place], [address] Basophil percentageOrdered B y: Steven Tejeda on 04-23-2024 Basophils/100 WBC (Bld) 0.2 % 0-1 [facility] CBC W/Diff, Automatedon 03-27-2024 Absolute Lymph 3.56 X10 3/uL Normal 0.83-4.51 [facility] Comment on above: Performed By: #### L 503.5510, L500.3400, L500.2500, L100.0100 #### [facility] [address] [place], [address] Absolute Neut 8.4 X10 3/uL High 2.0-7.7 [facility] Comment on above: Performed By: #### L 503.5510, L500.3400, L500.2500, L100.0100 #### [facility] [address] [place], [address] Basophils/100 WBC (Bld) 0.2 % Normal 0-1 [facility] Comment on above: Performed By: #### L 503.5510, L500.3400, L500.2500, L100.0100 #### [facility] [address] [place], [address] Eosinophils/100 WBC (Bld) 1.9 % Normal 0-5 [facility] Comment on above: Performed By: #### L 503.5510, L500.3400, L500.2500, L100.0100 #### [facility] [address] [place], [address] Erythrocyte distribution width (RBC) [Ratio] 19.0 % High 11.6-14.6 [facility] Comment on above: Performed By: #### L 503.5510, L500.3400, L500.2500, L100.0100 #### [facility] [address] [place], [address] Hematocrit (Bld) [Volume fraction] 31.1 % Low 40-54 [facility] Comment on above: Performed By: #### L 503.5510, L500.3400, L500.2500, L100.0100 #### [facility] [address] [place], [address] Hemoglobin (Bld) [Mass/Vol] 9.3 g/dL Low 13.0-16.5 [facility] Comment on above: Performed By: #### L 503.5510, L500.3400, L500.2500, L100.0100 #### [facility] [address] [place], [address] IG% 0.500 Normal 0.0-0.9 [facility] Comment on above: Result Comment: IG% - Immature Granulocytes (promyelocytes, myelocytes and metamyelocytes) > 1% indicates that a LEFT SHIFT is Present. Performed By: #### L 503.5510, L500.3400, L500.2500, L100.0100 #### [facility] [address] [place], [address] Lymphocytes/100 WBC (Bld) 27.6 % Normal 19-41 [facility] Comment on above: Performed By: #### L 503.5510, L500.3400, L500.2500, L100.0100 #### [facility] [address] [place], [address] MCH (RBC) [Entitic mass] 19.7 pg Low 27.0-32.0 [facility] Comment on above: Performed By: #### L 503.5510, L500.3400, L500.2500, L100.0100 #### [facility] [address] [place], [address] MCHC (RBC) [Mass/Vol] 29.9 g/dL Low 32-36 [facility] Comment on above: Performed By: #### L 503.5510, L500.3400, L500.2500, L100.0100 #### [facility] [address] [place], [address] MCV (RBC) [Entitic vol] 66.0 fL Low 80-94 [facility] Comment on above: Performed By: #### L 503.5510, L500.3400, L500.2500, L100.0100 #### [facility] [address] [place], [address] Monocytes/100 WBC (Bld) 4.9 % Normal 0-10 [facility] Comment on above: Performed By: #### L 503.5510, L500.3400, L500.2500, L100.0100 #### [facility] [address] [place], [address] Neutrophils/100 WBC (Bld) 64.9 % Normal 47-70 [facility] Comment on above: Performed By: #### L 503.5510, L500.3400, L500.2500, L100.0100 #### [facility] [address] [place], [address] Nucleated RBC (Bld) [#/Vol] 0 10*3/uL Normal 0-5 [facility] Comment on above: Performed By: #### L 503.5510, L500.3400, L500.2500, L100.0100 #### [facility] [address] [place], [address] Platelet mean volume (Bld) [Entitic vol] 9.4 fL Normal 6.2-12.0 [facility] Comment on above: Performed By: #### L 503.5510, L500.3400, L500.2500, L100.0100 #### [facility] [address] [place], [address] Platelets (Bld) [#/Vol] 350 10*3/uL Normal 150-450 [facility] Comment on above: Performed By: #### L 503.5510, L500.3400, L500.2500, L100.0100 #### [facility] [address] [place], [address] RBC (Bld) [#/Vol] 4.71 10*6/uL Normal 4.6-6.2 [facility] Comment on above: Performed By: #### L 503.5510, L500.3400, L500.2500, L100.0100 #### [facility] [address] [place], [address] RDW SD 43.6 fl Normal 35.1-43.9 [facility] Comment on above: Performed By: #### L 503.5510, L500.3400, L500.2500, L100.0100 #### [facility] [address] [place], [address] WBC (Bld) [#/Vol] 12.9 10*3/uL High 4.4-11.0 [facility] Comment on above: Performed By: #### L 503.5510, L500.3400, L500.2500, L100.0100 #### [facility] [address] [place], [address] Carbon dioxide, total [Moles /volume] in Central venous bloodOrdered By: Steven Tejeda on 04-23-2025 CO2 [Moles/Vol] 22.9 mmol/L 21.0-32.0 [facility] Chest 1 View (Portable)on Chest 1 View (Portable) [facility] Imaging Services [address] [place] [address] Chest 1 View (Portable) MR#: [id number] Acct: [id number] Name: ITZEL ALONZO Rep #: [id number] : 1950 M 74 From: Deonte Perez MD PCP: SID Haro Status: REG ER Study: Chest 1 View (Portable) Date of Exam: 04/23/25 Exam# [id number] Ordering Dr: Steven Tejeda DO PROCEDURE: CHEST [...] regions which may represent adenopathy. Reading Location: [id number] CC: SID Haji; Dr. Steven Tejeda DO Route Returner: Signed Normal [facility] Chloride assayOrdered By: Emil Tejeda on 04-23-2025 Chloride [Moles/Vol] 101 mmol/L 98-108 [facility] Emergency Department Summary on 04-23-2025 Emergency Department Summary [facility] Medical Records Department [address] [place] [address] Emergency Department Summary 04/23/25 MR#: [id number] Acct: [id number] Name: ITZEL ALONZO Rep #: [id number] : 1950 74 From: Steven Tejeda DO PCP: Carlene N Adithya, TRAUMA COUNSELLOR-C Status:DEP ER Location: ED HPI History of [...] cancer in his right lung. [facility] Medical History Kidney stones Neuropathy PTSD [...] to obtaining)] (more content not included)... Normal [facility] Eosinophil percentageOrdered By: Steven Tejeda on 04-23-2025 Eosinophils/100 WBC (Bld) 1.9 % 0-5 [facility] Erythrocyte distribution wid th ratioOrdered By: Steven Tejeda on 04-23-2025 Erythrocyte distribution width (RBC) [Ratio] 19.0 % High 11.6-14.6 [facility] Erythrocyte distribution wid th standard deviationOrdered By: Steven Tejeda on 04-23-2025 Erythrocyte distribution width (RBC) [Ratio] 43.6 fl 35.1-43.9 [facility] Glomerular filtration rate ( GFR) estimation/1.73 sq m using serum, plasma, or whole bOrdered By: Stevenleisa Tejeda on 04-23-2025 GFR/1.73 sq M.predicted among non-blacks MDRD (S/P/Bld) [Vol rate/Area] 82 mL/min/{1.73_m2} >60 [facility] Comment on above: mL/min/1.73m2 CKD-EP I Creatinine Equation (2020) Hematocrit Auto (Bld) [Volum e fraction]Ordered By: Steven Tejeda on 04-23-2025 Hematocrit (Bld) [Volume fraction] 31.1 % Low 40-54 [facility] Hemoglobin measurementOrdere d By: Steven Tejeda on 04-23-2025 Hemoglobin (Bld) [Mass/Vol] 9.3 g/dL Low 13.0-16.5 [facility] Immature granulocytes/100 WB C Auto (Bld)Ordered By: Steven Tejeda on 04-23-2025 Immature granulocytes/100 WBC (Bld) 0.500 % 0.0-0.9 [facility] Comment on above: IG% - Immature Granu locytes (promyelocytes, myelocytes and metamyelocytes) > 1% indicates that a LEFT SHIFT is Present. International normalized rat io (INR) calculationOrdered By: Steven Tejeda on 04-23-2025 INR Coag (Bld) [Relative time] 1.1 {INR} [facility] L499.0042on 04-23-2025 Trop T High Sen 27 ng/L High <=22 [facility] Comment on above: Performed By: #### L 400.0001 #### [facility] [address] [place], [address] L501.4021on 04-23-2025 Trop T High Sen 26 ng/L High <=22 [facility] Comment on above: Performed By: #### L 503.5510, L500.3400, L500.2500, L100.0100 #### [facility] [address] [place], [address] MCV (mean corpuscular volume ) determinationOrdered By: Steven Tejeda on 04-23-2025 MCV (RBC) [Entitic vol] 66.0 fL Low 80-94 [facility] Mean corpuscular hemoglobin (MCH) determinationOrdered By: Steven Tejeda on 04-23-2025 MCH (RBC) [Entitic mass] 19.7 pg Low 27.0-32.0 [facility] Mean corpuscular hemoglobin concentration (MCHC) determinationOrdered By: Steven Tejeda on 04-23-2025 MCHC (RBC) [Mass/Vol] 29.9 g/dL Low 32-36 [facility] Mean platelet volume determi nationOrdered By: Steven Tejeda on 04-23-2025 Platelet mean volume (Bld) [Entitic vol] 9.4 fL 6.2-12.0 [facility] Monocyte percentageOrdered B y: Steven Tejeda on 04-23-2025 Monocytes/100 WBC (Bld) 4.9 % 0-10 [facility] Neutrophil percentageOrdered By: Steven Tejeda on 04-23-2025 Neutrophils/100 WBC (Bld) 64.9 % 47-70 [facility] Nucleated red blood cell per centageOrdered By: Steven Tejeda on 04-23-2025 Nucleated RBC/100 WBC (Bld) [Ratio] 0 % 0-5 [facility] Partial Thromboplast Timeon 04-23-2025 aPTT Coag (Bld) [Time] 27.9 s Normal 24.1-36.2 [facility] Comment on above: Performed By: #### L 503.5510, L500.3400, L500.2500, L100.0100 #### [facility] [address] [place], [address] Platelet countOrdered By: Emil Tejeda on 04-23-2025 Platelets (Bld) [#/Vol] 350 10*3/uL 150-450 [facility] Potassium measurement (mass/ volume)Ordered By: Steven Tejeda on 04-23-2025 Potassium (Unsp spec) [Mass/Vol] 3.9 mmol/L 3.3-5.1 [facility] Prothrombin Time w/INRon INR Coag (PPP) [Relative time] 1.1 {INR} Normal [facility] Comment on above: Performed By: #### L 503.5510, L500.3400, L500.2500, L100.0100 #### [facility] [address] [place], [address] PT Coag (PPP) [Time] 14.2 s Normal 11.7-14.9 [facility] Comment on above: Performed By: #### L 503.5510, L500.3400, L500.2500, L100.0100 #### [facility] [address] [place], [address] Prothrombin timeOrdered By: Steven Tejeda on 04-23-2025 PT Coag (PPP) [Time] 14.2 s 11.7-14.9 [facility] RBC Auto (Bld) [#/Vol]Ordere d By: Steven Tejeda on 04-23-2025 RBC (Bld) [#/Vol] 4.71 10*6/uL 4.6-6.2 [facility] STROKE Brain/Head without Co nton 04-23-2025 STROKE Brain/Head without Cont [facility] Imaging Services [address] [place] [address] STROKE Brain/Head without Cont MR#: [id number] Acct: [id number] Name: ITZEL ALONZO Rep #: [id number] : 1950 M 74 From: Deonte Perez MD PCP: SID Haro Status: REG ER Study: STROKE Brain/Head without Cont Date of Exam: 0 04/23/25 Exam# [id number] Ordering Dr: Steven Tejeda DO PROCEDURE: STROKE [...] atrophy and chronic microvascular ischemia. Reading Location: [place] [address] CC: TRAUMA COUNSELLOR-C Carlene Haji; Dr. Steven Tejeda DO Route Returner: Signed Normal [facility] STROKE CTA Head AND Neck W/C onon 04-23-2025 STROKE CTA Head AND Neck W/Con [facility] Imaging Services [address] [place] [address] STROKE CTA Head AND Neck W/Con MR#: [id number] Acct: [id number] Name: ITZEL ALONZO Rep #: [id number] : 1950 M 74 From: Deonte Perez MD PCP: SID Haro Status: REG ER Study: STROKE CTA Head AND Neck W/Con Date of Exam: 0 04/23/25 Exam# [id number] Ordering Dr: Steven Tejeda DO PROCEDURE: STROKE [...] occluded similar to the prior CTA. Anatomy: [place] anatomy is normal. Aneurysm or [...] apical mass suspicious for malignancy. Reading Location: [id number] CC: SID Haji; Dr. Steven Tejeda DO Route Returner: Signed Normal [facility] Serum creatinine measurement (mass/volume)Ordered By: Steven Tejeda on 04-23-2025 Creatinine [Mass/Vol] 0.96 mg/dL 0.70-1.20 [facility] Serum glucose measurement (m ass/volume)Ordered By: Steven Tejeda on 04-23-2025 Glucose [Mass/Vol] 292 mg/dL High 70-99 [facility] Serum or plasma calcium ivania urement (mass/volume)Ordered By: Steven Tejeda on 04-23-2025 Calcium [Mass/Vol] 10.3 mg/dL 7.6-11.0 [facility] Serum or plasma urea nitroge n measurement (mass/volume)Ordered By: Steven Tejeda on 04-23-2025 Urea nitrogen [Mass/Vol] 20 mg/dL High 4-19 [facility] Sodium levelOrdered By: Stevenelisa eTjeda on 04-23-2025 Sodium [Moles/Vol] 134 mmol/L 133-145 [facility] Troponin T.cardiac [Mass/vol ume] in Serum or Plasma by High sensitivity methodOrdered By: Steven Tejeda on 04-23-2025 Troponin T.cardiac High sensitivity method [Mass/Vol] 27 ng/L High <22 [facility] Troponin T.cardiac High sensitivity method [Mass/Vol] 26 ng/L High <22 [facility] White blood cell (WBC) count Ordered By: Steven Tejeda on 04-23-2025 WBC (Bld) [#/Vol] 12.9 10*3/uL High 4.4-11.0 [facility] Bedside Glucoseon 12-12-2024 FINGERSTICK GLU 358 mg/dL High 74-106 [facility] Comment on above: Result Comment: BELLA PENALOZA OF PATIENT CARE PER NURSING PROTOCOL Performed By: #### L 503.5510, L500.3400, L500.2500, L100.0100 #### [facility] [address] [place], [address] Emergency Department Summary on 12-12-2024 Emergency Department Summary [facility] Medical Records Department [address] [place] [address] Emergency Department Summary 12/12/24 MR#: [id number] Acct: [id number] Name: ITZEL ALONZO Rep #: [id number] : 1950 74 From: Juvencio Shen [facility] ER Location: ED HPI History of Present Illness Chief Complaint: General Illness Narrative Narrative: Patient is a 74-year-old male with history of homelessness, anxiety, depression, PTSD, is part of the [place], and per the patient has history [...] [place] the [facility] secondary to his family being there. He [...] mostly here because of frustration. [facility] Medical History (Updated 12/12/24 @ 13:26 [...] to auscult (more content not included)... Normal [facility] Vital Signs Date Time Vital Sign Value Performing Clinician Facility 08-06-2025 06:00-0400 Diastolic blood pressure 79 mm[Hg] Dr. Steven Tejeda DO Work Phone: 7(642)436-091762 [address] 08-06-2025 06:00-0400 Heart rate 100 /min Dr. Steven Tejeda DO Work Phone: 9(882)538-235488 [place] [address] 08-06-2025 06:00-0400 Respiratory rate 18 /min Dr. Steven Tejeda DO Work Phone: 3(711)978-466688 [place] [address] 08-06-2025 06:00-0400 SaO2% (BldA) [Mass fraction] 94 % Dr. Steven Tejeda DO Work Phone: 3(265)966-311488 [place] [address] 08-06-2025 06:00-0400 Systolic blood pressure 145 mm[Hg] Dr. Steven Tejeda DO Work Phone: 4(913)133-471288 [place] [address] 08-06-2025 04:23-0400 Body temperature 97.8 [degF] Dr. Steven Tejeda DO Work Phone: 5(156)505-574888 [place] [address] 08-06-2025 00:47-0400 Body height 182.[address] Steven Tejeda DO Work Phone: 0(540)070-574788 [place] [address] 08-06-2025 00:47-0400 Body mass index (BMI) [Ratio] 18.1 kg/m2 Dr. Steven Tejeda DO Work Phone: 6(180)784-311888 [place] [address] 08-06-2025 00:47-0400 Body weight 60.[address] Steven Tejeda DO Work Phone: 6(330)383-241188 [place] [address] 07-08-2025 14:00-0400 Diastolic blood pressure 81 mm[Hg] Dr. Steven Tejeda DO Work Phone: 5(625)145-018388 [place] [address] 07-08-2025 14:00-0400 Heart rate 101 /min Dr. Steven Tejeda DO Work Phone: 0(540)773-333788 [place] [address] 07-08-2025 14:00-0400 Respiratory rate 19 /min Dr. Steven Tejeda DO Work Phone: 6(699)834-114475 [place] [address] 07-08-2025 14:00-0400 SaO2% (BldA) [Mass fraction] 100 % Dr. Steven Tejeda DO Work Phone: 8(522)998-200975 [place] [address] 07-08-2025 14:00-0400 Systolic blood pressure 130 mm[Hg] Dr. Steven Tejeda DO Work Phone: 3(996)304-566375 [place] [address] 07-08-2025 13:59-0400 Body temperature 98.7 [degF] Dr. Steevn Tejeda DO Work Phone: 7(310)915-507675 [place] [address] 07-08-2025 10:55-0400 Body height 182.[address] Steven Tejeda DO Work Phone: 5(745)289-643775 [place] [address] 07-08-2025 10:55-0400 Body mass index (BMI) [Ratio] 22.3 kg/m2 Dr. Steven Tejeda DO Work Phone: 1(310)548-171675 [place] [address] 07-08-2025 10:55-0400 Body weight 74.[address] Steven Tejeda DO Work Phone: 8(981)947-832875 [place] [address] 07-07-2025 09:32-0400 Inhaled oxygen flow rate 2 L/min Dr. Steven Tejeda DO Work Phone: 4(432)130-829475 [place] [address] 07-07-2025 07:46-0400 SaO2% (BldA) [Mass fraction] 91 % Dr. Steven Tejeda DO Work Phone: 2(065)184-214075 [place] [address] 07-07-2025 07:10-0400 Heart rate 101 /min Dr. Steven Tejeda DO Work Phone: 5(711)575-309275 [place] [address] 07-07-2025 07:10-0400 Respiratory rate 18 /min Dr. Steven Tejeda DO Work Phone: 7(378)559-810275 [place] [address] 07-07-2025 05:36-0400 Body mass index (BMI) [Ratio] 17.4 kg/m2 Dr. Steven Tejeda DO Work Phone: [facility] 07-07-2025 05:36-0400 Body weight 59.[address] Steven Tejeda DO Work Phone: 4(038)715-133875 [place] [address] 07-06-2025 22:04-0400 Body temperature 98.9 [degF] Dr. Steven Tejeda DO Work Phone: 2(479)092-001875 [place] [address] 07-06-2025 22:04-0400 Diastolic blood pressure 94 mm[Hg] Dr. Steven Tejeda DO Work Phone: 4(585)853-909175 [place] [address] 07-06-2025 22:04-0400 Systolic blood pressure 146 mm[Hg] Dr. Steven Tejeda DO Work Phone: 5(697)305-135275 [place] [address] 07-05-2025 21:24-0400 Inhaled oxygen concentration 2 % Dr. Steven Tejeda DO Work Phone: 9(039)455-120075 [place] [address] 07-05-2025 10:29-0400 Body height 185.[address] Steven Tejeda DO Work Phone: 9(448)574-615675 [place] [address] 07-03-2025 23:03-0400 Body temperature 98.3 [degF] Dr. Steven Tejeda DO Work Phone: 1(300)330-695375 [place] [address] 07-03-2025 23:03-0400 Diastolic blood pressure 90 mm[Hg] Dr. Steven Tejeda DO Work Phone: 0(059)413-845875 [place] [address] 07-03-2025 23:03-0400 Heart rate 115 /min Dr. Steven Tejeda DO Work Phone: 5(001)930-053375 [place] [address] 07-03-2025 23:03-0400 Respiratory rate 22 /min Dr. Steven Tejeda DO Work Phone: 5(828)564-165075 [place] [address] 07-03-2025 23:03-0400 SaO2% (BldA) [Mass fraction] 96 % Dr. Steven Tejeda DO Work Phone: 7(563)414-618575 [place] [address] 07-03-2025 23:03-0400 Systolic blood pressure 160 mm[Hg] Dr. Steven Tejeda DO Work Phone: 5(687)600-688475 [place] [address] 07-03-2025 19:10-0400 Body height 185.[address] Steven Tejeda DO Work Phone: 2(972)304-695175 [place] [address] 07-03-2025 19:10-0400 Body mass index (BMI) [Ratio] 18.8 kg/m2 Dr. Steven Tejeda DO Work Phone: 1(661)698-989175 [place] [address] 07-03-2025 19:10-0400 Body weight 64.[address] Steven Tejeda DO Work Phone: 2(645)529-561388 [place] [address] 05-13-2025 13:11-0400 Body temperature 97.8 [degF] Dr. Steven Tejeda DO Work Phone: 8(898)682-596388 [place] [address] 05-13-2025 13:11-0400 Diastolic blood pressure 72 mm[Hg] Dr. Steven Tejeda DO Work Phone: 5(732)852-751588 [place] [address] 05-13-2025 13:11-0400 Heart rate 90 /min Dr. Steven Tejeda DO Work Phone: 9(504)478-827575 [place] [address] 05-13-2025 13:11-0400 Respiratory rate 12 /min Dr. Steven Tejeda DO Work Phone: 6(493)894-156675 [place] [address] 05-13-2025 13:11-0400 SaO2% (BldA) [Mass fraction] 95 % Dr. Steven Tejeda DO Work Phone: 8(374)674-984175 [place] [address] 05-13-2025 13:11-0400 Systolic blood pressure 140 mm[Hg] Dr. Steven Tejeda DO Work Phone: 5(217)830-042175 [place] [address] 05-13-2025 12:40-0400 Inhaled oxygen flow rate 2 L/min Dr. Steven Tejeda DO Work Phone: 6(296)312-415175 [place] [address] 05-12-2025 11:06-0400 Body height 185.[address] Steven Tejeda DO Work Phone: 9(231)379-491575 [place] [address] 05-12-2025 11:06-0400 Body weight 64.[address] Steven Tejeda DO Work Phone: 1(843)222-229575 [place] [address] 05-11-2025 20:16-0400 Body mass index (BMI) [Ratio] 18.7 kg/m2 Dr. Steven Tejeda DO Work Phone: 5(759)772-583575 [place] [address] 05-11-2025 19:29-0400 Body temperature 98.6 [degF] Dr. Steven Tejeda DO Work Phone: 0(185)398-030775 [place] [address] 05-11-2025 19:29-0400 Diastolic blood pressure 85 mm[Hg] Dr. Steven Tejeda DO Work Phone: 3(974)237-849275 [place] [address] 05-11-2025 19:29-0400 Heart rate 99 /min Dr. Steven Tejeda DO Work Phone: 0(657)997-559275 [place] [address] 05-11-2025 19:29-0400 Respiratory rate 24 /min Dr. Steven Tejeda DO Work Phone: 4(082)223-960788 [place] [address] 05-11-2025 19:29-0400 SaO2% (BldA) [Mass fraction] 95 % Dr. Steven Tejeda DO Work Phone: 6(856)564-643475 [place] [address] 05-11-2025 19:29-0400 Systolic blood pressure 154 mm[Hg] Dr. Steven Tejeda DO Work Phone: 3(850)148-304375 [place] [address] 05-11-2025 14:09-0400 Body mass index (BMI) [Ratio] 19.2 kg/m2 Dr. Steven Tejeda DO Work Phone: 3(789)610-599075 [place] [address] 05-11-2025 14:09-0400 Body weight 66.[address] Steven Tejeda DO Work Phone: 1(006)668-764175 [place] [address] 05-11-2025 14:05-0400 Body height 185.[address] Steven Tejeda DO Work Phone: 5(245)839-575975 [place] [address] 05-04-2025 14:54-0400 Body temperature 98.3 [degF] Dr. Steven Tejeda DO Work Phone: 6(109)122-801775 [place] [address] 05-04-2025 14:54-0400 Diastolic blood pressure 88 mm[Hg] Dr. Steven Tejeda DO Work Phone: 1(142)036-649275 [place] [address] 05-04-2025 14:54-0400 Heart rate 91 /min Dr. Steven Tejeda DO Work Phone: 7(575)377-882475 [place] [address] 05-04-2025 14:54-0400 Respiratory rate 16 /min Dr. Steven Tejeda DO Work Phone: 5(729)609-188875 [place] [address] 05-04-2025 14:54-0400 SaO2% (BldA) [Mass fraction] 98 % Dr. Steven Tejeda DO Work Phone: 5(385)138-587675 [place] [address] 05-04-2025 14:54-0400 Systolic blood pressure 146 mm[Hg] Dr. Steven Tejeda DO Work Phone: 7(753)212-347588 [place] [address] 05-04-2025 11:22-0400 Inhaled oxygen flow rate 97 L/min Dr. Steven Tejeda DO Work Phone: 5(121)111-623988 [place] [address] 05-04-2025 11:13-0400 Body height 185.[address] Steven Tejeda DO Work Phone: 3(015)704-723088 [place] [address] 05-04-2025 11:13-0400 Body mass index (BMI) [Ratio] 18.8 kg/m2 Dr. Steven Tejeda DO Work Phone: 3(552)893-590088 [place] [address] 05-04-2025 11:13-0400 Body weight 64.[address] Steven Tejeda DO Work Phone: 3(058)854-154375 [place] [address] 04-24-2025 00:37-0400 Body temperature 98.2 [degF] Dr. Steven Tejeda DO Work Phone: 2(799)646-571675 [place] [address] 04-24-2025 00:37-0400 Diastolic blood pressure 81 mm[Hg] Dr. Steven Tejeda DO Work Phone: 8(269)412-488575 [place] [address] 04-24-2025 00:37-0400 Heart rate 83 /min Dr. Steven Tejeda DO Work Phone: 4(739)444-279075 [place] [address] 04-24-2025 00:37-0400 Respiratory rate 25 /min Dr. Steven Tejeda DO Work Phone: 7(160)496-407775 [place] [address] 04-24-2025 00:37-0400 SaO2% (BldA) [Mass fraction] 99 % Dr. Steven Tejeda DO Work Phone: 8(356)711-725462 [address] 04-24-2025 00:37-0400 Systolic blood pressure 149 mm[Hg] Dr. Steven Tejeda DO Work Phone: 3(109)462-249388 [place] [address] 04-23-2025 21:27-0400 Body mass index (BMI) [Ratio] 20.8 kg/m2 Dr. Steven Tejeda DO Work Phone: 2(336)351-422388 [place] [address] 04-23-2025 21:07-0400 Body height 185.[address] Steven Tejeda DO Work Phone: 8(579)047-097588 [place] [address] 04-23-2025 21:07-0400 Body weight 71.[address] Steven Tejeda DO Work Phone: 8(322)315-063275 [place] [address] Encounters Encounter Date Encounter Type Care Provider Facility Start: 08-06-2025 End: 08-06-2025 Dr. Steven Tejeda DO Work Phone: -Emergency Department Work Phone: Start: 08-06-2025 End: 08-06-2025 Emergency department patient visit Dr. Steven Tejeda DO Work Phone: -Emergency Department Start: 07-08-2025 End: 07-08-2025 [facility]: Start: 07-08-2025 End: 07-08-2025 Emergency department patient visit Dr. Steven Tejeda DO Work Phone: -Emergency Department Work Phone: Start: 07-07-2025 Non-patient / Non-visit Dr. Anthony Salgado MD -[facility] Work Phone: Start: 07-07-2025 Dr. Anthony Salgado MD -[facility] Work Phone: Start: 07-06-2025 Non-patient / Non-visit Dr. Anthony Salgado MD -[facility] Work Phone: Start: 07-06-2025 Dr. Anthony Salgado MD -[facility] Work Phone: Start: 07-05-2025 Non-patient / Non-visit Dr. Anthony Salgado MD -[facility] Work Phone: Start: 07-05-2025 Dr. Anthony Salgado MD -[facility] Work Phone: Start: 07-04-2025 Non-patient / Non-visit Dr. Uche lowery MD -[facility] Work Phone: Start: 07-04-2025 Dr. Uche Felix MD -[facility] Work Phone: Start: 07-03-2025 ambulatory Johanne Evans Facility :[facility] Start: 07-03-2025 End: 07-07-2025 Evaluation and management of inpatient Dr. Johanne Evans MD -[facility] Work Phone: Start: 07-03-2025 End: 07-07-2025 Dr. Anthony Salgado MD -[facility] Work Phone: Start: 05-13-2025 Non-patient / Non-visit Dr. Anthony Salgado MD -[facility] Work Phone: Start: 05-13-2025 Dr. Anthony Salgado MD -[facility] Work Phone: Start: 05-12-2025 Non-patient / Non-visit Dr. Anthony Salgado MD -[facility] Work Phone: Start: 05-12-2025 Dr. Anthony Salgado MD -[facility] Work Phone: Start: 05-11-2025 ambulatory [...] 12-12-2024 Emergency department patient visit [facility] Facility:[facility] Start: 05-09-2021 ambulatory Facility:[facility] Procedures Date Procedure Procedure Detail Performing Clinician [...] 05-04-2025 Calculation of international normalized ratio Dr. Setven Tejeda DO Work Phone: Start: 05-04-2025 Estimated [...] Activity Detail Author Start: 08-06-2025 End: 08-06-2025 [facility] Start: 07-08-2025 [facility] Start: 07-07-2025 Patient discharge [facility] Start: 07-06-2025 End: 07-06-2025 Administration of blood product [facility] Start: 07-04-2025 End: 07-05-2025 [facility] Start: 07-04-2025 Measuring intake and output [facility] Start: 07-04-2025 Measuring intake and output [facility] Start: 07-04-2025 Provision of overbed trapeze [facility] Start: 07-04-2025 Recommendation to co danay with treatment [facility] Start: 07-04-2025 Ambulation therapy management [facility] Start: 07-04-2025 Assessment of risk o f venous thromboembolism [facility] Start: 07-04-2025 Catheterization of vein [facility] Start: 07-04-2025 Exercises [facility] Start: 07-04-2025 Following clinical p athway protocol [facility] Start: 07-04-2025 Measuring intake and output [facility] Start: 07-04-2025 Neurovascular assessment [facility] Start: 07-04-2025 Procedure discontinued [facility] Start: 07-04-2025 Provision of activity privileges [facility] Start: 07-04-2025 Referral to occupati onal therapist [facility] Start: 07-04-2025 Referral to service [facility] Start: 07-04-2025 Vital signs measurements [facility] Start: 07-04-2025 Wound care [facility] Start: 07-04-2025 Measuring intake and output [facility] Start: 07-04-2025 Application of inter mittent pneumatic compression device [facility] Start: 07-04-2025 Following clinical p athway protocol [facility] Start: 07-03-2025 End: 07-04-2025 [facility] Start: 07-03-2025 Application of ice c ollar, cap or bag [facility] Start: 07-03-2025 Assessment of risk o f venous thromboembolism [facility] Start: 07-03-2025 Care regimes management [facility] Start: 07-03-2025 Fall prevention [facility] Start: 07-03-2025 Inhalation therapy procedure [facility] Start: 07-03-2025 Insertion of cathete r into peripheral vein [facility] Start: 07-03-2025 Introduction of urinary catheter [facility] Start: 07-03-2025 Neurovascular assessment [facility] Start: 07-03-2025 Notification of physician [facility] Start: 07-03-2025 Oxygen therapy [facility] Start: 07-03-2025 End: 07-04-2025 Patient referral to dietitian [facility] Start: 07-03-2025 Providing care accor ding to standard [facility] Start: 07-03-2025 Referral to occupati onal therapist [facility] Start: 07-03-2025 Referral to service [facility] Start: 07-03-2025 Skin care [facility] Start: 07-03-2025 Tobacco use cessation education [facility] Start: 07-03-2025 End: 07-03-2025 [facility] Start: 07-03-2025 Measuring intake and output [facility] Start: 07-03-2025 Recommendation to co danay with treatment [facility] Start: 07-03-2025 Verification routine [facility] Start: 07-03-2025 Hospital admission, emergency, from emergency room, medical nature [facility] Start: 07-03-2025 Admission procedure [facility] Start: 07-03-2025 Serum inorganic phos phate measurement [facility] Start: 07-03-2025 [facility] Start: 07-03-2025 Application of ice c ollar, cap or bag [facility] Start: 05-12-2025 [facility] Start: 05-12-2025 Patient discharge [facility] Start: 05-12-2025 Patient referral to dietitian [facility] Start: 05-11-2025 Following clinical p athway protocol [facility] Start: 05-11-2025 Ambulation without limitation [facility] Start: 05-11-2025 Assessment of risk o f venous thromboembolism [facility] Start: 05-11-2025 Care regimes management [facility] Start: 05-11-2025 Insertion of cathete r into peripheral vein [facility] Start: 05-11-2025 Notification of physician [facility] Start: 05-11-2025 Oxygen therapy [facility] Start: 05-11-2025 Providing care accor ding to standard [facility] Start: 05-11-2025 End: 05-11-2025 [facility] Start: 05-11-2025 Verification routine [facility] Start: 05-11-2025 Admission procedure [facility] Start: 05-11-2025 Hospital admission, emergency, from emergency room, medical nature [facility] Start: 05-11-2025 End: 05-11-2025 [facility] Start: 05-11-2025 Inhalation therapy procedure [facility] Start: 05-11-2025 Patient referral to dietitian [facility] Start: 05-04-2025 [facility] Start: 04-24-2025 [facility] Start: 04-23-2025 Oxygen therapy [facility] Start: 04-23-2025 [facility] Magnesium measurement [facility] Natriuretic peptide. B prohormone N-Terminal [Mass/volume] in Serum or Plasma [facility] Patient Education [facility] Work Phone: Patient referral [facility] Work Phone: Troponin T.cardiac [ Mass/volume] in Serum or Plasma by High sensitivity method [facility] Urine culture [facility] Payers Date Payer Category Payer Self-pay [id number] 2024 Self-pay [id number] 2024 Self-pay Unknown [id number] 2.16.8 [id number] Unknown [id number] 2.16.8 [id number] Unknown [id number] 2.16.8 [id number] Unknown [id number] 2.16.8 [id number] Unknown [id number] 2.16.8 [id number] Unknown [id number] 2.16.8 [id number] Unknown [id number] 2.16.8 [id number] Unknown [id number] 2.16.8 [id number] Unknown [id number] 2.16.8 [id number] Unknown [id number] 2.16.8 [id number] Unknown [id number] 2.16.8 [id number] Unknown [id number] 2.16.8 [id number] Unknown [id number] 2.16.8 [id number] Unknown [id number] 2.16.8 [id number] Unknown [id number] 2.16.8 [id number] Social History Date Type Detail Facility Start: 04-23-2025 End: 07-08-2025 Tobacco smoking status HIIS Current some day smoker [facility] Start: 04-23-2025 Tobacco Use Tobacco Use [facility] Start: 1950 Sex Assigned At Male [facility] Start: 08-06-2025 Tobacco smoking stat us HIIS Ex-smoker (finding) [facility] Medical Equipment Procedure Code Equipment Code [...] Facility 07-07-2025 Functional status Back to bed [facility] Work Phone: 05-13-2025 Functional status Ambulates [facility] Work Phone: Mental Status Date Assessment Result Facility 07-07-2025 Cognitive function Voice/Name [facility] Work Phone: 05-13-2025 Cognitive function Voice/Name [facility] Work Phone: 05-11-2025 Cognitive function Voice/Name [facility] Work Phone: 04-23-2025 Cognitive function Voice/Name [facility] Work Phone: Clinical Notes 04-23-2025 to 08-06-2025 Note Date & Type Note Facility 08-06-2025 Discharge summary Note Date/Time August 06, 2025 4:23am [facility] Medical Records Department [address] [place] [address] Emergency Department Summary 08/06/25 MR#: [id number] Acct: [id number] Name: ITZEL ALONZO Rep #:[id number] : [id number] 75 From: Tej Amado DO PCP: Dr. Hubert Hagen MD Status:REG E R Location: ED HPI History of Present Illness Chief Complaint: Fall Informant: patient and SNF Narrative Narrative: Patient is a 75-year-old male from the [facility] with past medical history oflung cancer chronic anemia hypertension chronic kidney disease and cirrhosis. He is on 2.5 mg of Eliquis twice a day secondary to previous TIA/CVA. detention staff reports that this evening he was [...] is oriented to person and year. However [facility] reports they felt his mental status was more diminished than at his baseline. The patient reports pain in his hip and low back but otherwise has no complaints. [facility] Medical History Fall Closed intertrochanteric fracture [...] budesonide-formoterol HFA 80 2 puff inhalation BID LOOM TUNER D 05/09/21 07/02/25 History mcg-4.5 mcg/actuation aerosol [...] secondary to traumatic subarachnoid or subdural hemorrhage. detention staff was contacted and states they have [...] he can be discharged back to the [facility] where he can be placed on antibiotics [...] % (Auto) 67.9 Lymph % (Auto) 22.6 Fleming % (Auto) 5.8 Eos % (Auto) 3.0 [...] Clarity Cloudy Urine pH 6.0 Ur Specific Wilcox 1.010 Urine Protein 100 H Urine Glucose [...] intracranial findings, as described above. Reading Location: [id number] Cervical Spine CT 08/06/25 01:08 IMPRESSION: No CT evidence for acute abnormality. Reading [facility] Lower Extremity CT 08/06/25 01:08 IMPRESSION: No CT evidence of an acute abnormality. [facility] Lum[facility] CT 08/06/25 01:08 IMPRESSION: No CT evidence of an acute traumatic abnormality. Reading [facility] Discharge Plan Triage Chief Complaint: Fall ED Provider: Tej Amado Dx/Rx/DC Orders Clinical Impression: Accidental fall, Urinary tract infection, Delirium, Current use of long-term anticoagulation, Chronic anemia Instructions: Urinary Tract Infections [...] to the ER for repeatevaluation. Print Language: Maldivian Disposition Disposition: Home, Self Care What to do if you have Problems For any increased pain, shortness of breath, bleeding, nausea or vomiting, chestpain, or any unexpected problems, contact your Primary Care Provider. Call [facility] ([phone]) or report to the closest Emergency Room. Call 911 if necessary. 08/06/25 3337 <Electronically signed by Tej Amado DO> Cosigner Signature (if applicable): CC: Dr. Hubert Hagen MD ~ Signed [facility] Work Phone: 1(205) 992-714409-12-2025 Radiology Diagnostic study [facility]09-12-2025 Radiology Diagnostic study [facility]09-12-2025 Radiology Diagnostic study [facility] 08-06-2025 Radiology Diagnostic study [facility]08-14-2025 Discharge summary [facility] Medical Records Department [address] [place] [address] Emergency Department Summary 07/08/25 MR#: [id number] Acct: [id number] Name: ITZEL ALONZO Rep #:[id number] : 1950 75 From: Monty Clarke MD PCP: SID Haro Status:REG ER Location: ED HPI History of Present Illness Chief Complaint: Complaint Narrative Narrative: 75-year-old male with PMH of HTN, HLD, DM2, cirrhosis, anemia had a traumatic hip fracture with surgical fixation on 07/04/[address] Nuno Campbell. [facility] He states this morning he started to have blood in his urine prompting his visit. He also states they aregiving him Tylenol and it is not managing his hip pain well. He denies fever or chills, nausea or vomiting, or abdominal or flank pain. He was discharged on Eliquis 2.5 mg twice daily. [facility] Medical History CKD (chronic kidney [...] budesonide-formoterol HFA 80 2 puff inhalation BID LOOM TUNER D 05/09/21 07/02/25 History mcg-4.5 mcg/actuation aerosol [...] having postop pain so was given a [place]. Blood work looks stable with aglobin of [...] [place] He presents[place] because of hematuria. He did [...] 75.3 H Lymph % (Auto) 16.1 L Fleming % (Auto) 7.2 Eos % (Auto) 0.9 [...] Clarity Clear Urine pH 6.5 Ur Specific Wilcox 1.010 Urine Protein 100 H Urine Glucose [...] He [place] He presents now because of hematuria. He [...] 75.3 H Lymph % (Auto) 16.1 L Fleming % (Auto) 7.2 Eos % (Auto) 0.9 [...] Clarity Clear Urine pH 6.5 Ur Specific Wilcox 1.010 Urine Protein 100 H Urine Glucose [...] come back to the ER. Print Language: Maldivian Disposition Disposition: Home, Self Care What to do if you have Problems For any increased pain, shortness of breath, bleeding, nausea or vomiting, chestpain, or any unexpected problems, contact your Primary Care Provider. Call [facility] ([phone]) or report tothe closest Emergency Room. Call 911 if necessary. 07/08/25 6811 Cosigner Signature (if applicable): 07/08/25 8916 CC: SID Haji ~ Signed [facility]08-14-2025 Discharge summary Author Monty Clarke [facility] Note Date/Time July 08, 2025 2: 57pm [facility] Medical Records Department [address] [place] [address] Emergency Department Summary 07/08/25 MR#: [id number] Acct: [id number] Name: ITZEL ALONZO Rep #:[id number] : 1950 75 From: Monty Clarke MD PCP: Carlene Haji, TRAUMA COUNSELLOROnurC Status:REG ER Location: ED HPI <AGUSTINA Sanches - Last Filed: 07/08/25 13:36> History of Present Illness Chief Complaint: Complaint Narrative Narrative: 75-year-old male with PMH of HTN, HLD, DM2, cirrhosis, anemia had a traumatic hip fracture with surgical fixation on 07/04/[address] Nuno Campbell. He wasdischarged to [facility]. He states this morning he started to have blood in his urine prompting his visit. He also states they are giving him Tylenol and it is not managing his hip pain well. He denies fever or chills, nausea or vomiting, or abdominal or flank pain. He was discharged on Eliquis 2.5 mg twice daily. [facility] <AGUSTINA Sanches - Last Filed: 07/08/25 13:36> [facility] Medical History CKD (chronic kidney disease), [...] budesonide-formoterol HFA 80 2 puff inhalation BID LOOM TUNER D 05/09/21 07/02/25 History mcg-4.5 mcg/actuation aerosol [...] nontender, no guarding or rebound, nondistended. SKIN: [place] over right hip incisions are clean, dry, [...] <AGUSTINA Sanches - Last Filed: 07/08/25 13:36> [facility]DM Narrative Medical decision making narrative: History [...] having postop pain so was given a [place]. Blood work looks stable with aglobin of [...] [place] He presents[place] because of hematuria. He did [...] 75.3 H Lymph % (Auto) 16.1 L Fleming % (Auto) 7.2 Eos % (Auto) 0.9 [...] Clarity Clear Urine pH 6.5 Ur Specific Wilcox 1.010 Urine Protein 100 H Urine Glucose (UA) 100 H Urine Ketones Negative Urine Occult Blood 150 H Urine Nitrite Negative Urine Bilirubin Negative Urine Urobilinogen Normal Ur Leukocyte Esterase Negative Urine RBC 10-25 SEEN Urine WBC 0 SEEN Ur Squamous Epith Cells 0 SEEN Urine Bacteria 0 SEEN Urine Mucus 0 SEEN <Dr. Monty Clarke MD - Last Filed: 07/08/25 14:57> [facility] Narrative Medical decision making narrative: I [...] [place] He presents now because of hematuria. He [...] 75.3 H Lymph % (Auto) 16.1 L Fleming % (Auto) 7.2 Eos % (Auto) 0.9 [...] Clarity Clear Urine pH 6.5 Ur Specific Wilcox 1.010 Urine Protein 100 H Urine Glucose [...] Care Provider: Carlene Haji Referrals: Carlene Haji, TRAUMA COUNSELLOR-C [Primary Care Provider] - Activity Restrictions/Additional Instructions: [...] come back to the ER. Print Language: Maldivian Disposition Disposition: Home, Self Care What to do if you have Problems For any increased pain, shortness of breath, bleeding, nausea or vomiting, chestpain, or any unexpected problems, contact your Primary Care Provider. Call [facility] ([phone]) or report to the closest Emergency Room. Call 911 if necessary. 07/08/25 2793 <Electronically signed by Monty Clarke MD> Cosigner Signature (if applicable): 07/08/25 2448 <Electronically signed by Marissa BERRIOS> CC: SID Haji ~ Signed [facility] Work Phone: 1(877) 597-194408-13-2025 Consult note [facility] Medical Records Department [address] [place] [address] Counseling Note - Pharmacy 07/07/25 1547 MR#: [id number] Acct: [id number] Name: ITZEL ALONZO Rep #:[id number] : 1950 75 From: Karissa Polo PCP: SID Haro Status:ADM IN Y Location: [place] [address] [place]acy [place] Med Reconciliation Pharmacy Service has performed discharge [...] Signature (if applicable): Date CC: ~ Signed [facility]08-13-2025 Consult note Author Karissa Polo [facility] Note Date/Time July 07, 2025 6: 03pm [facility] Medical Records Department [address] [place] [address] Counseling Note - Pharmacy 07/07/25 1547 MR#: [id number] Acct: [id number] Name: ITZEL ALONZO Rep #:[id number] : 1950 75 From: Karissa Polo PCP: Carlene Haji, TRAUMA COUNSELLOR-C Status:ADM IN Y [facility] [place] [facility] Pharm[facility] Service has performed discharge [...] Signature (if applicable): Date CC: ~ Signed [facility] Work Phone: 1(113) 615-770308-13-2025 Discharge summary Author Anthony Salgado [facility] Note Date/Time July 07, 2025 3: 18pm [facility] Medical Records Department [address] [place] [address] Discharge Summary 07/07/25 1517 MR#: [id number] Acct: [id number] Name: ITZEL ALONZO Rep #:[id number] : 1950 75 From: Anthony Kiser PCP: SID Haro Status:ADM IN [facility] [facility] [place]515-1 Providers Date of Admission: 07/03/25 Date of [...] ? Requested for PT OT eval and forensic social worker to assist with discharge planning 3. Right sided lung cancer (suprahilar, unclear exact specific type) with associated hypercalcemia of malignancy with recent transition to [facility]. Patient to resume care following discharge [...] is for patient to follow[facility]up with [facility] following discharge 12. Restless leg syndrome [...] (Auto) 71.4 H, Lymph % (Auto) 19.0, Fleming % (Auto) 7.8, Eos % (Auto) 1.3, [...] Malignancy can not be excluded. Reading Location: [facility] Lower Extremity CT 07/03/25 21:54 IMPRESSION: Acute, moderately comminuted and impacted right intertrochanteric femoral fracture. No aggressive osseous lesions. Reading Location: [facility] Hip X-Ray 07/04/25 10:00 IMPRESSION: Postsurgical changes for repair of right femoral fracture with no acute complications. Reading Location: [facility] Medications at Discharge Home Medications gabapentin 300 [...] 07/05/25 10:37 SB (Rec: 07/05/25 10:37 SB [id number]) Nutrition Malnutrition Evidence of Yes Malnutrition Exists [...] (Auto) 71.4 H, Lymph % (Auto) 19.0, Fleming % (Auto) 7.8, Eos % (Auto) 1.3, [...] in before D/C Order can be placed): [facility] Charges/Coding Visit Charges Inpatient E&M: 29810 Disch Hosp >30min 07/07/25 1518 <Electronically signed by Anthony Salgado MD> Cosigner Signature (if applicable): CC: SID Haji; Dr. Anthony Salgado MD; Dr. Nuno Campbell MD~ Signed [facility] Work Phone: 1(319) 277-979208-13-2025 Discharge summary Author Anthony Salgado [facility] Note Date/Time July 07, 2025 3: 16pm [facility] Medical Records Department [address] [place] [address] Transfer to Extended Care MR#: [id number] Acct: [id number] Name: ITZEL ALONZO Rep #:[id number] : 1950 75 From: Anthony Kiser PCP: SID Haro Status:ADM IN Certification of patient admission REQUIRED AT TIME OF ADMISSION. I CERTIFY THAT POST-HOSPITAL ECF SERVICES ARE REQUIRED TO BE GIVEN ON AN IN-PATIENT BASIS BECAUSE OF THE ABOVE NAMED PATIENT'S NEED FOR [facility] CARE ON A CONTINUING BASIS FOR THE [...] ? Requested for PT OT eval and forensic social worker to assist with discharge planning 3. Right sided lung cancer (suprahilar, unclear exact specific type) with associated hypercalcemia of malignancy with recent transition to [facility]. Patient to resume care following discharge [...] is for patient to [facility] with [facility] following discharge 12. Restless leg syndrome [...] (Auto) 71.4 H, Lymph % (Auto) 19.0, Fleming % (Auto) 7.8, Eos % (Auto) 1.3, [...] Malignancy can not be excluded. Reading Location: [facility] Lower Extremity CT 07/03/25 21:54 IMPRESSION: Acute, moderately comminuted and impacted right intertrochanteric femoral fracture. No aggressive osseous lesions. Reading Location: [facility] Hip X-Ray 07/04/25 10:00 IMPRESSION: Postsurgical changes for repair of right femoral fracture with no acute complications. Reading Location: [facility] Allergies/Procedures Done in Hospital Allergies No Known [...] Staff] - Within 2 Weeks Carlene Haji TRAUMA COUNSELLOR-C [Primary Care Provider] - Within 2 Weeks Disposition Disposition (needs filled in before D/C Order can be placed): [facility] (1) Closed intertrochanteric fracture of right hip Qualifiers: Encounter type: initial encounter Fracture alignment: displaced Qualified Code(s): S72.141A - Displaced intertrochanteric fracture of right femur, initialencounter for closed fracture 07/07/25 0145 <Electronically signed by Anthony Salgado MD> Cosigner Signature (if applicable): CC: TRAUMA COUNSELLOR-C Carlene Haji; Dr. Johanne Evans MD; Dr. Uche Felix MD; Dr. Nuno Campbell MD ~ [facility] Work Phone: 1(387) 370-667608-13-2025 Progress note Author Anthony Salgado [facility] Note Date/Time July 07, 2025 2: 03pm [facility] Medical Records Department [address] [place] [address] Progress Note - Hospitalist 07/07/25 1401 MR#: [id number] Acct: [id number] Name: ITZEL ALONZO Rep #:[id number] : 1950 75 From: Anthony Kiser PCP: SID Haro Status:ADM IN [facility] Reason for Visit Chief Complaint: Fall, R [...] 07/05/25 10:37 SB (Rec: 07/05/25 10:37 SB [id number]) Nutrition Malnutrition Evidence of Yes Malnutrition Exists [...] (Auto) 71.4 H, Lymph % (Auto) 19.0, Fleming % (Auto) 7.8, Eos % (Auto) 1.3, [...] ? Requested for PT OT eval and forensic social worker to assist with discharge planning 3. Right sided lung cancer (suprahilar, unclear exact specific type) with associated hypercalcemia of malignancy with recent transition to [facility]. Patient to resume care following discharge [...] is for patient to [facility] with [facility] following discharge 12. Restless leg syndrome [...] (Auto) 71.4 H, Lymph % (Auto) 19.0, Fleming % (Auto) 7.8, Eos % (Auto) 1.3, [...] Malignancy can not be excluded. Reading Location: [facility] Lower Extremity CT 07/03/25 21:54 IMPRESSION: Acute, moderately comminuted and impacted right intertrochanteric femoral fracture. No aggressive osseous lesions. Reading Location: [facility] Hip X-Ray 07/04/25 10:00 IMPRESSION: Postsurgical changes for repair of right femoral fracture with no acute complications. Reading Location: [facility] Charges/Coding Visit Charges Inpatient E&M: 71512 Subs Hosp L2 07/07/25 1403 <Electronically signed by Anthony Salgado MD> Cosigner Signature (if applicable): CC: ~ Signed [facility] Work Phone: 1(607) 493-751808-13-2025 Discharge summary [facility] Medical Records Department [address] [place] [address] Discharge Summary 07/07/25 1517 MR#: [id number] Acct: [id number] Name: ITZEL ALONZO Rep #:[id number] : 1950 75 From: Anthony Kiser PCP: SID Haro Status:ADM IN Location: [place] [address] Providers Date of Admission: 07/03/25 Date of [...] ? Requested for PT OT eval and forensic social worker to assist with discharge planning 3. Right sided lung cancer (suprahilar, unclear exact specific type) with associated hypercalcemia of malignancy with recent transition to [facility]. Patient to resume care following discharge [...] is for patient to [facility] following [facility] 12. Restless leg syndrome [...] (Auto) 71.4 H, Lymph % (Auto) 19.0, Fleming % (Auto) 7.8, Eos % (Auto) 1.3, [...] line. Malignancy cannot be excluded. Reading Location: [facility] Lower Extremity CT 07/03/25 21:54 IMPRESSION: Acute, moderately comminuted and impacted right intertrochanteric femoral fracture. No aggressive osseous lesions. Reading Location: [facility] Hip X-Ray 07/04/25 10:00 IMPRESSION: Postsurgical changes for repair of right femoral fracture with no acute complications. Reading Location: [facility] Medications at Discharge Home Medications gabapentin 300 [...] 07/05/25 10:37 SB (Rec: 07/05/25 10:37 SB [id number]) Nutrition Malnutrition Evidence of Yes Malnutrition Exists [...] (Auto) 71.4 H, Lymph % (Auto) 19.0, Fleming % (Auto) 7.8, Eos % (Auto) 1.3, [...] in before D/C Order can be placed): [facility] Charges/Coding Visit Charges Inpatient E&M: 19981 Disch Hosp >30min 07/07/25 1518 Cosigner Signature (if applicable): CC: SID Haji; Dr. Anthony Salgado MD; Dr. Nuno Campbell MD~ Signed [facility]08-13-2025 [facility] Medical Records Department [address] [place] [address] Discharge Summary 07/07/25 1517 MR#: [id number] Acct: [id number] Name: ITZEL ALONZO Rep #: [id number] : 1950 75 From: Anthony Salgado MD PCP: SID Haro Status:ADM IN [place] [facility] [id number] Providers Date of Admission: 07/03/25 Date of [...] ??? Requested for PT OT eval and forensic social worker to assist with discharge planning 3. Right [...] is for [facility] 12. Restless leg syndrome [...] 07/06/25 22:20: POC Glucose (more content not included)...[facility]08-13-2025 Discharge summary [facility] Medical Records Department [address] [place] [address] Transfer to [facility] MR#: [id number] Acct: [id number] Name: ITZEL ALONZO Rep #:[id number] : 1950 75 From: Anthony Kiser PCP: Carlene Haji, TRAUMA COUNSELLOR-C Status:ADM IN Certification of patient admission REQUIRED AT TIME OF ADMISSION. I CERTIFY THAT POST-HOSPITAL ECF SERVICES ARE REQUIRED TO BE GIVEN ON AN IN-PATIENT BASIS BECAUSE OF THE ABOVE NAMED PATIENT'S NEED FOR [facility] CARE ON A CONTINUING BASIS FOR THE [...] ? Requested for PT OT eval and forensic social worker to assist with discharge planning 3. Right sided lung cancer (suprahilar, unclear exact specific type) with associated hypercalcemia of malignancy with recent transition to [facility]. Patient to resume care following discharge [...] is for patient to [facility] 12. Restless leg syndrome [...] (Auto) 71.4 H, Lymph % (Auto) 19.0, Fleming % (Auto) 7.8, Eos % (Auto) 1.3, [...] line. Malignancy cannot be excluded. Reading Location: [facility] Lower Extremity CT 07/03/25 21:54 IMPRESSION: Acute, moderately comminuted and impacted right intertrochanteric femoral fracture. No aggressive osseous lesions. Reading Location: [facility] Hip X-Ray 07/04/25 10:00 IMPRESSION: Postsurgical changes for repair of right femoral fracture with no acute complications. Reading Location: [facility] Allergies/Procedures Done in Hospital Allergies No Known [...] Staff] - Within 2 Weeks Carlene Haji, TRAUMA COUNSELLOR-C [Primary Care Provider] - Within 2 Weeks Disposition Disposition (needs filled in before D/C Order can be placed): [facility] (1) Closed intertrochanteric fracture of right hip Qualifiers: Encounter type: initial encounter Fracture alignment: displaced Qualified Code(s): S72.141A - Displaced intertrochanteric fracture of right femur, initialencounter for closed fracture 07/07/25 1516 Cosigner Signature (if applicable): CC: TRAUMA COUNSELLOR-René Haji; Dr. Johanne Evans MD; Dr. Uche Felix MD; Dr. Nuno Campbell MD ~ [facility]08-13-2025 Progress note [facility] Medical Records Department [address] [place] [address] Progress Note - Hospitalist 07/07/25 1401 MR#: [id number] Acct: [id number] Name: ITZEL ALONZO Rep #:[id number] : 1950 75 From: Anthony Kiser PCP: Carlene Haji TRAUMA COUNSELLOR-C Status:ADM IN Location: [place] [id number] Reason for Visit Chief Complaint: Fall, R [...] 07/05/25 10:37 SB (Rec: 07/05/25 10:37 SB [id number]) Nutrition Malnutrition Evidence of Yes Malnutrition Exists [...] (Auto) 71.4 H, Lymph % (Auto) 19.0, Fleming % (Auto) 7.8, Eos % (Auto) 1.3, [...] ? Requested for PT OT eval and forensic social worker to assist with discharge planning 3. Right [...] is for [facility] 12. Restless leg syndrome [...] (Auto) 71.4 H, Lymph % (Auto) 19.0, Fleming % (Auto) 7.8, Eos % (Auto) 1.3, [...] line. Malignancy cannot be excluded. Reading Location: [facility] Lower Extremity CT 07/03/25 21:54 IMPRESSION: Acute, moderately comminuted and impacted right intertrochanteric femoral fracture. No aggressive osseous lesions. Reading Location: [facility] Hip X-Ray 07/04/25 10:00 IMPRESSION: Postsurgical changes for repair of right femoral fracture with no acute complications. Reading Location: [facility] Charges/Coding Visit Charges Inpatient E&M: 36468 Subs Hosp L2 07/07/25 1403 Cosigner Signature (if applicable): CC: ~ Signed [facility]08-13-2025 Hospital Discharge instructionsAdditional Instructions [facility]: [facility] Work Phone: 1(952) 604-538608-12-2025 Progress note Author Anthony Salgado [facility] Note Date/Time July 06, 2025 4: 23pm [facility] Medical Records Department [address] [place] [address] Progress Note - Hospitalist 07/06/25 1007 MR#: [id number] Acct: [id number] Name: ITZEL ALONZO Rep #:[id number] : 1950 75 From: Anthony TREJO: Carlene Haji, TRAUMA COUNSELLOR-C Status:ADM IN Location: [facility] NS692-7 Reason for Visit Chief Complaint: Fall, R [...] 07/05/25 10:37 SB (Rec: 07/05/25 10:37 SB [id number]) Nutrition Malnutrition Evidence of Yes Malnutrition Exists [...] (Auto) 72.3 H, Lymph % (Auto)18.5 L, Fleming % (Auto) 6.9, Eos % (Auto) 1.6, [...] ? Requested for PT OT eval and forensic social worker to assist with discharge planning 3. Right [...] is for patient to follow-up with the [facility] following discharge 12. Restless leg syndrome ? [...] (Auto) 72.3 H, Lymph % (Auto)18.5 L, Fleming % (Auto) 6.9, Eos % (Auto) 1.6, [...] Malignancy can not be excluded. Reading Location: [facility] Lower Extremity CT 07/03/25 21:54 IMPRESSION: Acute, moderately comminuted and impacted right intertrochanteric femoral fracture. No aggressive osseous lesions. Reading Location: [facility] Hip X-Ray 07/04/25 10:00 IMPRESSION: Postsurgical changes for repair of right femoral fracture with no acute complications. Reading Location: [facility] Charges/Coding Visit Charges Inpatient E&M: 94168 Subs Hosp L2 07/06/25 1623 <Electronically signed by Anthony Salgado MD> Cosigner Signature (if applicable): CC: ~ Signed [facility] Work Phone: 1(581) 484-582908-12-2025 Progress note [facility] Medical Records Department [address] [place] [address] Progress Note - Hospitalist 07/06/25 1007 MR#: [id number] Acct: [id number] Name: ITZEL ALONZO Rep #:[id number] : 1950 75 From: Anthony Kiser PCP: Carlene Haji TRAUMA COUNSELLOR-C Status:ADM IN [facility] Reason for Visit Chief Complaint: Fall, R [...] 07/05/25 10:37 SB (Rec: 07/05/25 10:37 SB [id number]) Nutrition Malnutrition Evidence of Yes Malnutrition Exists [...] (Auto) 72.3 H, Lymph % (Auto)18.5 L, Fleming % (Auto) 6.9, Eos % (Auto) 1.6, [...] ? Requested for PT OT eval and forensic social worker to assist with discharge planning 3. Right sided lung cancer (suprahilar, unclear exact specific type) with associated hypercalcemia of malignancy with recent transition [place] [facility]. Patient to resume care following discharge [...] is for patient to [facility] 12. Restless leg syndrome [...] (Auto) 72.3 H, Lymph % (Auto)18.5 L, Fleming % (Auto) 6.9, Eos % (Auto) 1.6, [...] line. Malignancy cannot be excluded. Reading Location: [facility] Lower Extremity CT 07/03/25 21:54 IMPRESSION: Acute, moderately comminuted and impacted right intertrochanteric femoral fracture. No aggressive osseous lesions. Reading Location: [facility] Hip X-Ray 07/04/25 10:00 IMPRESSION: Postsurgical changes for repair of right femoral fracture with no acute complications. Reading Location: [facility] Charges/Coding Visit Charges Inpatient E&M: 10518 Subs Hosp L2 07/06/25 1623 Cosigner Signature (if applicable): CC: ~ Signed [facility]08-11-2025 Progress note Author Anthony Salgado [facility] Note Date/Time July 05, 2025 4: 45pm [facility] Medical Records Department [address] [place] [address] Progress Note - Hospitalist 07/05/25 1634 MR#: [id number] Acct: [id number] Name: ITZEL ALONZO Rep #:[id number] : 1950 75 From: Anthony Kiser PCP: SID Haro Status:ADM IN Location: [place] [address] Reason for Visit Chief Complaint: Fall, R [...] 07/05/25 10:37 SB (Rec: 07/05/25 10:37 SB [id number]) Nutrition Malnutrition Evidence of Yes Malnutrition Exists [...] 79.1 H, Lymph % (Auto) 13.4 L, Fleming % (Auto) 5.5, Eos % (Auto) 1.1, [...] ? Requested for PT OT eval and forensic social worker to assist with discharge planning 3. Right sided lung cancer (suprahilar, unclear exact specific type) with associated hypercalcemia of malignancy with recent [place]. Patient to resume care following discharge [...] is for patient to [facility]up with the [facility] following discharge 12. Restless leg syndrome [...] 79.1 H, Lymph % (Auto) 13.4 L, Fleming % (Auto) 5.5, Eos % (Auto) 1.1, [...] 232 H Charges/Coding Visit Charges Inpatient E&M: 85274 Subs Hosp L2 07/05/25 1645 <Electronically signed by Anthony Salgado MD> Cosigner Signature (if applicable): CC: ~ Signed [facility] Work Phone: 1(900) 751-464608-11-2025 Progress note [facility] Medical Records Department [address] [place] [address] Progress Note - Hospitalist 07/05/25 1634 MR#: [id number] Acct: [id number] Name: ITZEL ALONZO Rep #:[id number] : 1950 75 From: Anthony Kiser PCP: Carlene Haji NP-C Status:ADM IN Location: [place] [address]-1 Reason for Visit Chief Complaint: Fall, R [...] 07/05/25 10:37 SB (Rec: 07/05/25 10:37 SB [id number]) Nutrition Malnutrition Evidence of Yes Malnutrition Exists [...] 79.1 H, Lymph % (Auto) 13.4 L, Fleming % (Auto) 5.5, Eos % (Auto) 1.1, [...] ? Requested for PT OT eval and forensic social worker to assist with discharge planning 3. Right sided lung cancer (suprahilar, unclear exact specific type) with associated hypercalcemia of malignancy with recent [place]. Patient to resume care following discharge [...] is for patient to follow[facility] with the [facility] following discharge 12. Restless leg syndrome [...] 79.1 H, Lymph % (Auto) 13.4 L, Fleming % (Auto) 5.5, Eos % (Auto) 1.1, [...] 232 H Charges/Coding Visit Charges Inpatient E&M: 63371 Subs Hosp L2 07/05/25 6598 Cosigner Signature (if applicable): CC: ~ Signed [facility]08-11-2025 Progress note Author Pily Rodriguez [facility] Note Date/Time July 05, 2025 1: 30pm [facility] Medical Records Department [address] [place] [address] Progress Note - Orthopedic 07/05/25 0938 MR#: [id number] Acct: [id number] Name: ITZEL ALONZO Rep #:[id number] : 1950 75 From: Pily BERRIOS PCP: Carlene Haji, TRAUMA COUNSELLOR-C Status:ADM IN [place] [facility] [place] Subjective Subjective Patient is 75-year-old male postop [...] 79.1 H, Lymph % (Auto) 13.4 L, Fleming % (Auto) 5.5, Eos % (Auto) 1.1, [...] fracture with no acute complications. Reading Location: [facility] Physical Exam Narrative Patient resting comfortably in [...] Cosigner Signature (if applicable): cc: ~* Signed [facility] Work Phone: 1(764) 615-384408-11-2025 Progress note [facility] Medical Records Department [address] [place] [address] Progress Note - Orthopedic 07/05/2538 MR#: [id number] Acct: [id number] Name: ITZEL ALONZO Rep #:[id number] : 1950 75 From: Pily BERRIOS PCP: Carlene Haji TRAUMA COUNSELLOR-C Status:ADM IN Location: MD3 [id number] Subjective Subjective Patient is 75-year-old male postop [...] 79.1 H, Lymph % (Auto) 13.4 L, Fleming % (Auto) 5.5, Eos % (Auto) 1.1, [...] fracture with no acute complications. Reading Location: [facility] Physical Exam Narrative Patient resting comfortably in [...] Cosigner Signature (if applicable): cc: ~* Signed [facility]08-11-2025 Consult note Author Kayden Merino [facility] Note Date/Time July 05, 2025 6: 11am [facility] Medical Records Department [address] [place] [address] Anesthesia Postop Eval II 07/05/25 0611 MR#: [id number] Acct: [id number] Name: ITZEL ALONZO Rep #:[id number] : 1950 75 From: Kayden Merino MD PCP: SID Haro Status:ADM IN Y Race: AA Location: [address] Anesthesia Postop Eval I Sum Postop Eval Completion status Anesthesia document: Postop Eval 1 completed: Yes Anesthesia Postop Eval I Summary Anesthesia Postop Eval I Summary: Anesthesia Postop Eval I: Assessment Summary Airway patent Yes 07/04/25 11:46 CON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 Spontaneous unlabored Yes 07/04/25 11:46 CON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 respirations Mental status Awake 07/04/25 11:46 CON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 nausea No 07/04/25 11:46 CON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 Vomiting No 07/04/25 11:46 CON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 Anesthesia Postop Eval I: Fluid Summary Crystalloid volume administer 500 07/04/25 11:46 CON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 (ml) Colloids volume administered ( ml) Blood Product volume administered (ml) Total IV fluid infused 500 07/04/25 11:46 CON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 Anesthesia Postop Eval I: Summary Notes Anesthesia Complication No 07/04/25 11:46 CON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ORCEMENT OFFICER.JCSOPHY Anesthesia Complication Comment: Post-operative progress note Anesthesia: Postop Eval II Evaluation Mental status: Awake Pain Level: 0 nausea: No Vomiting: No 07/05/25 0611 <Electronically signed by Kayden Merino MD > Date _ Kayden Merino MD Cosigner Signature: Date CC: ~ Signed [facility] Work Phone: 1([phone]) 216-434708-11-2025 Consult note [facility] Medical Records Department [address] [place] [address] Anesthesia Postop Eval II 07/05/25 0611 MR#: [id number] Acct: [id number] Name: CHERIITZEL A Rep #:[id number] : 1950 75 From: Kayden Merino MD PCP: SID Haro Status:ADM IN Y Race: AA Location: [place] [address] Anesthesia Postop Eval I Sum Postop Eval Completion status Anesthesia document: Postop Eval 1 completed: Yes Anesthesia Postop Eval I Summary Anesthesia Postop Eval I Summary: Anesthesia Postop Eval I: Assessment Summary Airway patent Yes 07/04/25 11:46 CON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 Spontaneous unlabored Yes 07/04/25 11:46 CON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 respirations Mental status Awake 07/04/25 11:46 CON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 nausea No 07/04/25 11:46 CON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 Vomiting No 07/04/25 11:46 CON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 Anesthesia Postop Eval I: Fluid Summary Crystalloid volume administer 500 07/04/25 11:46 CON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 (ml) Colloids volume administered ( ml) Blood Product volume administered (ml) Total IV fluid infused 500 07/04/25 11:46 CON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 Anesthesia Postop Eval I: Summary Notes Anesthesia Complication No 07/04/25 11:46 CON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 Anesthesia Complication Comment: Post-operative progress note Anesthesia: Postop Eval II Evaluation Mental status: Awake Pain Level: 0 nausea: No Vomiting: No 07/05/25 0611 > Date _ Kayden Bernstein Signature: Date CC: ~ Signed [facility]08-10-2025 Consult note Author Kye Luu [facility] Note Date/Time July 04, 2025 11 :46am [facility] Medical Records Department [address] [place] [address] Anesthesia Postop Eval I 07/04/25 1146 MR#: [id number] Acct: [id number] Name: ITZEL ALONZO Rep #:[id number] : 1950 75 From: Kye Sexton PCP: SID Haro Status:ADM IN Y Race: AA Location: [place] [address] Anesthesia: Postop Eval I Current Vital Signs [...] Click C RNA> Date _ Kye Click CON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ORCEMENT OFFICER Cosigner Signature: Date CC: ~ Signed [facility] Work Phone: [phone]) 248-484208-10-2025 Consult note Author Nuno Campbell [facility] Note Date/Time July 04, 2025 10 :09[facility] Medical Records Department [address] [place] [address] Consultation - Orthopedics 07/04/25 0959 MR#: [id number] Acct: [id number] Name: ITZEL ALONZO Rep #:[id number] : 1950 75 From: Nuno Kiser PCP: Carlene Haji TRAUMA COUNSELLOR-C Status:ADM IN Location: [place] [address] HPI Consult Data Date of Consult: 07/04/25 [...] consulted. Patient admitted to the medical service. [facility] Medical History CKD (chronic kidney disease), [...] budesonide-formoterol HFA 80 2 puff inhalation BID LOOM TUNER D 05/09/21 07/02/25 History mcg-4.5 mcg/actuation aerosol [...] Clarity Clear, Urine pH 6.0, Ur Specific Wilcox 1.010, Urine Protein 100 H, Urine Glucose [...] 90.1 H, Lymph % (Auto) 6.3 L, Fleming % (Auto) 2.8, Eos % (Auto) 0.1, Baso % (Auto) 0.2, Absolute Neuts (auto) 11.4 H, Absolute Lymphs (auto) 0.80 L, Nucleated RBC % 0, Differential Comment SCANNED, RBC Morphology RARE, Hypochromasia 1+, Anisocytosis 1+, Microcytosis 1+, Covington Cells RARE, PT 15.5 H, INR 1.2, [...] 84.5 H, Lymph % (Auto) 10.7 L, Fleming % (Auto) 4.1, Eos % (Auto) 0.2, [...] Malignancy can not be excluded. Reading Location: [facility] Lower Extremity CT 07/03/25 21:54 IMPRESSION: Acute, moderately comminuted and impacted right intertrochanteric femoral fracture. No aggressive osseous lesions. Reading Location: [facility] Assessment & Plan Assessment/Plan (1) Closed [...] Signature (if applicable): CC: SID Haji~ Signed [facility] Work Phone: 1(338) 287-422008-10-2025 Radiology Diagnostic study note [facility] Imaging Services [address] [place] [address] Hip Min 2 Views (Portable) MR#: [id number] Acct: [id number] Name: ITZEL ALONZO Rep #: [id number] : 1950 M 75 From: Neymar Pedroza MD PCP: LUIS MIGUEL HaroC Status: ADM IN Study:Hip Min 2 Views (Portable) Date of Exam : 07/04/25 Exam# [id number] Ordering Dr: Taylor Campbell MD PROCEDURE: HIP [...] fracture with no acute complications. Reading Location: [facility] CC: TRAUMA COUNSELLOR-C Carlene Haji; Dr. Nuno Campbell MD ~ Route Returner: Signed [facility]08-10-2025 Consult note [facility] Medical Records Department [address] [place] [address] Anesthesia Postop Eval I 07/04/25 1146 MR#: [id number] Acct: [id number] Name: ITZEL ALONZO Rep #:[id number] : 1950 75 From: Kye Sexton PCP: SID Haro Status:ADM IN Y Race: AA Location: [place] [address] 1 Anesthesia: Postop Eval I Current Vital [...] Kye Bernstein Signature: Date CC: ~ Signed [facility]08-10-2025 Procedure note [facility] Medical Records Department [address] [place] [address] Operative Report 07/04/25 1129 MR#: [id number] Acct: [id number] Name: ITZEL ALONZO Rep #:[id number] : 1950 75 From: Nuno Kiser PCP: SID Haro Status:ADM IN Location: [address] Problems Associated Problem List Diagnoses (1) Closed intertrochanteric fracture of right hip: Operative Report (Standard) Operative Information Date of Procedure: 07/04/25 Pre-Operative Diagnosis: Right hip intertrochanteric fracture Post-Operative Diagnosis: Same Surgery/Procedure Performed: Open reduction internal fixation right hip, long gamma nail hydroelectric 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 Nuno Campbell [employer] Principal: Silvia Butler PA-C Anesthesia: spinal Medications: Ancef Indications for surgery: Patient is an 75-year-old male sustained a hip fracture yesterday at home.Patient and their family explained diagnosis and treatment options. Patient evaluated by the medical services. Patient did wishto have surgery. Appropriate informed consent obtained and signed. Findings: Patient had a displaced intertrochanteric hip fracture. They underwent standard reduction, internal fixation using a [place] long gamma 3 nail. Nail size was 11 mm x 420. 125 degree neck angle. Proximal cross lock screw was 110. Distal cross lock screw was 42.5. X-rays taken throughout. graduate teaching assistant, physician junior sales assistant, was utilized throughout the entire procedure. [...] operating table with the help of the junior sales assistant. With the help of the junior sales assistant patient wasprepped and padded for surgery. Left foot was well-padded and placed in the traction boot. Right lower extremity was abducted and flexed out of harm's way. JACQUELINE hose and SCDs utilized. Fluoroscopy wasbrought in. With the help of the junior sales assistant and manipulation of the limb, reduction [...] of this with the help of the junior sales assistant holding the soft tissue protector appropriately. Long reaming was done starting and reaming up to 12.5 mm distally. Was then with the help of the junior sales assistant . once reaming was done we [...] Incisions were thoroughly irrigated. Closing by the junior sales assistant with deep0 Vicryl, mid layer 0 Vicryl, inverted 2-0 Vicryl, skin nayla. Puncture wounds closed with inverted 2-0 Vicryl and nayla. Xeroform 4 x 4's ABD tape applied. Patient was awoken from their anesthetic, transferred back to theirown bed with the help of the junior sales assistant and into recovery room in satisfactory [...] Evans MD; Dr. Nuno Campbell MD~ Signed [facility]08-10-2025 Consult note [facility] Medical Records Department [address] [place] [address] Consultation - Orthopedics 07/04/25 0959 MR#: [id number] Acct: [id number] Name: ITZEL ALONZO Rep #:[id number] : 1950 75 From: Nuno Kiser PCP: SID Haro Status:ADM IN [place] [facility] [id number] HPI Consult Data Date of Consult: 07/04/25 [...] consulted. Patient admitted to the medical service. [facility] Medical History CKD (chronic kidney disease), [...] budesonide-formoterol HFA 80 2 puff inhalation BID LOOM TUNER D 05/09/21 07/02/25 History mcg-4.5 mcg/actuation aerosol [...] Clarity Clear, Urine pH 6.0, Ur Specific Wilcox 1.010, Urine Protein 100 H, Urine Glucose [...] 90.1 H, Lymph % (Auto) 6.3 L, Fleming % (Auto) 2.8, Eos % (Auto) 0.1, Baso % (Auto)0.2, Absolute Neuts (auto) 11.4 H, Absolute Lymphs (auto) 0.80 L, Nucleated RBC % 0, Differential Co mment SCANNED, RBC Morphology RARE, Hypochromasia 1+, Anisocytosis 1+, Microcytosis 1+, Covington Cells RARE, PT 15.5 H, INR 1.2, [...] 84.5 H, Lymph % (Auto) 10.7 L, Fleming % (Auto) 4.1, Eos % (Auto) 0.2, [...] line. Malignancy cannot be excluded. Reading Location: [facility] Lower Extremity CT 07/03/25 21:54 IMPRESSION: Acute, moderately comminuted and impacted right intertrochanteric femoral fracture. No aggressive osseous lesions. Reading Location: [facility] Assessment & Plan Assessment/Plan (1) Closed [...] Signature (if applicable): CC: SID Haji~ Signed [facility]08-10-2025 Consult note Author Kayden Merino [facility] Note Date/Time July 04, 2025 7: 42am [facility] Medical Records Department [address] [place] [address] Pre-Anesthesia Evaluation 07/04/25 0742 MR#: [id number] Acct: [id number] Name: ITZEL ALONZO Carlie Rep #:[id number] : 1950 75 From: Kayden Merino MD PCP: SID Haro Status:ADM IN Y Race: AA Location: [place] [address] 1 ASA Classification* ASA Classification ASA Classification: [...] hip fracure Anesthesia History Anesthesia History - liquefaction supervisor: Anesthesia History - liquefaction supervisor Hx Hospitalization Any Problems With Anesthesia Yes: [...] take am of surgery PONV PONV - liquefaction supervisor: PONV - liquefaction supervisor Female HX of Motion Sickness HX of N/V After Surgery Non-Smoker Duration of Surgery greater than 60 minutes Number of Risk Factors PONV Score Height & Weight Height & Weight: Anesthesia: Height & Weight Height 6 ft 1 in 07/04/25 00:20 Weight: 58.1 kg 07/04/25 05:45 Body Mass Index (BMI) 16.9 07/04/25 05:45 Respiratory Assessment Respiratory Assessment - liquefaction supervisor: Respiratory Tract Infection Hx - liquefaction supervisor Hx Respiratory Tract Infection No 07/04/25 00:46 STOP Sleep Apnea STOP Sleep Apnea - liquefaction supervisor: STOP Sleep Apnea - liquefaction supervisor Hx Hypertension Yes 07/04/25 07:08 Hx Sleep [...] Tobacco Use History Tobacco Use History - liquefaction supervisor: Tobacco Use History - liquefaction supervisor Tobacco Use Cigarettes 04/23/25 21:27 Smoking Status Current some day smoker 07/04/25 00:20 Hx Tobacco Use Yes 07/04/25 00:20 Years Smoking Packs Smoked per Day Smoking Cessation Date was within the last 15 years Hx Smoking Cessation Date Hx Smoking Cessation No 07/04/25 00:20 Counseling Hematologic Medial History Hematologic Hx - liquefaction supervisor: Hematologic Medical Hx - ekg technician Hx of Blood Transfusion Yes 07/04/25 00:20 [...] confused, unrespo /Reproduction History /Reproductive History - liquefaction supervisor: /Reproductive Hx- liquefaction supervisor Hx Now No 07/04/25 00:46 Gestational Age [...] 22:00 Amlodipine 10 Mg Tablet PO QHS [facility] Protocol Atorvastatin Calcium 80 mg 07/04/25 22:00 Atorvastatin Calcium 80 Mg Tablet PO QHS [facility] Budesonide 0.5 mg 07/03/25 23:57 07/04/25 07:34 Budesonide Respules 0.5 Mg/2 Ml Ampul.Neb. INHALATION 0.5 mg BID.RT [facility] Administration Calamine/Phenol 1 applic 07/04/25 10:00 Menthol/Lanolin/Calamine/Znox 113 Gm Tube TOPICAL 4X/DAY [facility] Protocol Calcium Carbonate 1,500 mg 07/04/25 10:00 Calcium (Elemental) 500 Mg Tablet PO DAILY [facility] Cyclobenzaprine HCl 10 mg 07/04/25 07:37 Cyclobenzaprine Hcl 10 Mg Tablet PO TID PRN muscle spasms Gabapentin 300 mg 07/04/25 14:00 Gabapentin 300 Mg Capsule PO TID [facility] Glucagon 1 mg 07/03/25 23:57 Glucagon 1 [...] 07/04/25 02:09 IV 07/04/25 13:16 75 mls/hr .[id number] CAMMIE Administration Dextrose 250 mls @ 0 mls/hr 07/03/25 23:57 Dextrose 10%-Water IV .Q0M PRN HYPOGLYCEMIA Protocol As Directed Sodium Chloride 250 mls @ 15 mls/hr 07/04/25 00:53 IV .[id number] PRN Saline Flush Sodium Chloride 250 mls @ 15 mls/hr 07/04/25 00:53 IV .[id number] PRN Additional IVPB Infusion Insulin Human Lispro 0 unit 07/04/25 07:00 07/04/25 06:56 Insulin Lispro 100 Unit/Ml Insuln.Pen SC Not Given ACHS [facility] Protocol Magnesium Hydroxide 5 ml 07/04/25 07:37 [...] 10:00 Nicotine 14 Mg Patch TD DAILY [facility] Non-Formulary Medication 90 mcg 07/04/25 07:45 Albuterol INHALATION Q4H PRN CAM[facility] Non-Formulary Medication 325 mg 07/04/25 07:45 Ferrous Sulfate [Feosol] PO .every other day [facility] Non-Formulary Medication 1 mg 07/04/25 22:00 Ropinirole PO QHS [facility] Non-Formulary Medication 1 drp 07/04/25 22:00 Cyclopentolate LEFT EYE QHS [facility] Non-Formulary Medication 1 drp 07/04/25 10:00 Polyvinyl Alcohol-Povidone OPHTHALMIC 4X/DAY [facility] Non-Formulary Medication 1 drp 07/04/25 07:45 Prednisolone Acetate LEFT EYE Q6H [facility] Ondansetron HCl 4 mg 07/03/25 23:57 Ondansetron 4 Mg/2 Ml Vial IV Q8H PRN PRN NAUSEA/VOMITING Oxycodone HCl 5 - 10 mg 07/03/25 23:57 Oxycodone 5 Mg Tablet PO Q4H PRN PRN Pain Score 4-10 Pantoprazole Sodium 40 mg 07/04/25 10:00 Pantoprazole Sodium 40 Mg Tablet PO DAILY [facility] Polyethylene Glycol 17 gm 07/04/25 10:00 Polyethylene Glycol 3350 17 Gm Packet PO DAILY [facility] Senna/Docusate Sodium 2 tablet 07/04/25 10:00 Senna/Docusate Sodium 1 Tablet PO BID [facility] Sodium Chloride 10 - 40 ml 07/04/25 [...] budesonide-formoterol HFA 80 2 puff inhalation BID LOOM TUNER D 05/09/21 07/02/25 History mcg-4.5 mcg/actuation aerosol [...] MD Cosigner Signature: Date CC: ~ Signed [facility] Work Phone: 1(596) 551-657808-10-2025 Progress note Author Uche Felix [facility] Note Date/Time July 04, 2025 7: 37am [facility] Medical Records Department [address] [place] [address] Progress Note - Hospitalist 07/04/2521 MR#: [id number] Acct: [id number] Name: ITZEL ALONZO Rep #:[id number] : 1950 75 From: Uche Felix MD PCP: Carlene Haji TRAUMA COUNSELLOR-C Status:ADM IN Location: [place] [address] Reason for Visit Chief Complaint: Fall, R [...] Clarity Clear, Urine pH 6.0, Ur Specific Wilcox 1.010, Urine Protein 100 H, Urine Glucose [...] 90.1 H, Lymph % (Auto) 6.3 L, Fleming % (Auto) 2.8, Eos % (Auto) 0.1, Baso % (Auto) 0.2, Absolute Neuts (auto) 11.4 H, Absolute Lymphs (auto) 0.80 L, Nucleated RBC % 0, Differential Comment SCANNED, RBC Morphology RARE, Hypochromasia 1+, Anisocytosis 1+, Microcytosis 1+, Coving[place] Cells RARE, PT 15.5 H, INR 1.2, [...] 84.5 H, Lymph % (Auto) 10.7 L, Fleming % (Auto) 4.1, Eos % (Auto) 0.2, [...] Malignancy can not be excluded. Reading Location: [facility] Lower Extremity CT 07/03/25 21:54 IMPRESSION: Acute, moderately comminuted and impacted right intertrochanteric femoral fracture. No aggressive osseous lesions. Reading Location: [facility] Physical Exam Narrative GENERAL: cooperative but [...] ? Requested for PT OT eval and forensic social worker to assist with discharge planning 3. Right sided lung cancer (suprahilar, unclear exact specific type) with associated hypercalcemia of malignancy with recent transition [place]. Patient to resume care following discharge [...] is for patient to [facility] with the [facility] following discharge 12. Restless leg syndrome [...] 50 Minutes Charges/Coding Visit Charges Inpatient E&M: 61712 Subs Hosp L3 07/04/25 0737 <Electronically signed by Uche Felix MD> Cosigner Signature (if applicable): CC: ~ Signed [facility] Work Phone: 1(819) 227-255908-10-2025 Consult note [facility] Medical Records Department [address] [place] [address] Pre-Anesthesia Evaluation 07/04/25 0742 MR#: [id number] Acct: [id number] Name: ITZEL ALONZO Rep #:[id number] : 1950 75 From: Kayden Merino MD PCP: SID Haro Status:ADM IN Y Race: AA Location: [facility] -1 ASA Classification* ASA Classification ASA Classification: [...] hip fracure Anesthesia History Anesthesia History - liquefaction supervisor: Anesthesia History - liquefaction supervisor Hx Hospitalization Any Problems With Anesthesia Yes: [...] take am of surgery PONV PONV - liquefaction supervisor: PONV - liquefaction supervisor Female HX of Motion Sickness HX of N/V After Surgery Non-Smoker Duration of Surgery greater than 60 minutes Number of Risk Factors PONV Score Height & Weight Height & Weight: Anesthesia: Height & Weight Height 6 ft 1 in 07/04/25 00:20 Weight: 58.1 kg 07/04/25 05:45 Body Mass Index (BMI) 16.9 07/04/25 05:45 Respiratory Assessment Respiratory Assessment - liquefaction supervisor: Respiratory Tract Infection Hx - liquefaction supervisor Hx Respiratory Tract Infection No 07/04/25 00:46 STOP Sleep Apnea STOP Sleep Apnea - liquefaction supervisor: STOP Sleep Apnea - liquefaction supervisor Hx Hypertension Yes 07/04/25 07:08 Hx Sleep [...] Tobacco Use History Tobacco Use History - liquefaction supervisor: Tobacco Use History - liquefaction supervisor Tobacco Use Cigarettes 04/23/25 21:27 Smoking Status Current some day smoker 07/04/25 00:20 Hx Tobacco Use Yes 07/04/25 00:20 Years Smoking Packs Smoked per Day Smoking Cessation Date was within the last 15 years Hx Smoking Cessation Date Hx Smoking Cessation No 07/04/25 00:20 Counseling Hematologic Medial History Hematologic Hx - liquefaction supervisor: Hematologic Medical Hx - ekg technician Hx of Blood Transfusion Yes 07/04/25 00:20 [...] confused, unrespo /Reproduction History /Reproductive History - liquefaction supervisor: /Reproductive Hx- liquefaction supervisor Hx Now No 07/04/25 00:46 Gestational Age [...] 22:00 Amlodipine 10 Mg Tablet PO QHS [facility] Protocol Atorvastatin Calcium 80 mg 07/04/25 22:00 Atorvastatin Calcium 80 Mg Tablet PO QHS [facility] Budesonide 0.5 mg 07/03/25 23:57 07/04/25 07:34 Budesonide Respules 0.5 Mg/2 Ml Ampul.Neb. INHALATION 0.5 mg BID.RT CAMMIE Administration Calamine/Phenol 1 applic 07/04/25 10:00 Menthol/Lanolin/Calamine/Znox 113 Gm Tube TOPICAL 4X/DAY [facility] Protocol Calcium Carbonate 1,500 mg 07/04/25 10:00 Calcium (Elemental) 500 Mg Tablet PO DAILY [facility] Cyclobenzaprine HCl 10 mg 07/04/25 07:37 Cyclobenzaprine Hcl 10 Mg Tablet PO TID PRN muscle spasms Gabapentin 300 mg 07/04/25 14:00 Gabapentin 300 Mg Capsule PO TID [facility] Glucagon 1 mg 07/03/25 23:57 Glucagon 1 [...] 07/04/25 02:09 IV 07/04/25 13:16 75 mls/hr .[id number] CAMMIE Administration Dextrose 250 mls @ 0 mls/hr 07/03/25 23:57 Dextrose 10%-Water IV .Q0M PRN HYPOGLYCEMIA Protocol As Directed Sodium Chloride 250 mls @ 15 mls/hr 07/04/25 00:53 IV .[id number] PRN Saline Flush Sodium Chloride 250 mls @ 15 mls/hr 07/04/25 00:53 IV .[id number] PRN Additional IVPB Infusion Insulin Human Lispro 0 unit 07/04/25 07:00 07/04/25 06:56 Insulin Lispro 100 Unit/Ml Insuln.Pen SC Not Given ACHS [facility] Protocol Magnesium Hydroxide 5 ml 07/04/25 07:37 [...] 10:00 Nicotine 14 Mg Patch TD DAILY [facility] Non-Formulary Medication 90 mcg 07/04/25 07:45 Albuterol INHALATION Q4H PRN [facility] Non-Formulary Medication 325 mg 07/04/25 07:45 Ferrous Sulfate [Feosol] PO .every other day CAMMIE Non-Formulary Medication 1 mg 07/04/25 22:00 Ropinirole PO QHS [facility] Non-Formulary Medication 1 drp 07/04/25 22:00 Cyclopentolate [...] budesonide-formoterol HFA 80 2 puff inhalation BID LOOM TUNER D 05/09/21 07/02/25 History mcg-4.5 mcg/actuation aerosol [...] MD Cosigner Signature: Date CC: ~ Signed [facility]08-10-2025 Progress note [facility] Medical Records Department [address] [place] [address] Progress Note - Hospitalist 07/04/25720 MR#: [id number] Acct: [id number] Name: ITZEL ALONZO Rep #:[id number] : 1950 75 From: Uche Felix MD PCP: Carlene N Adithya, TRAUMA COUNSELLOR-C Status:ADM IN Location: MS3 SF911-1 Reason for Visit Chief Complaint: Fall, R [...] Clarity Clear, Urine pH 6.0, Ur Specific Wilcox 1.010, Urine Protein 100 H, Urine Glucose [...] 90.1 H, Lymph % (Auto) 6.3 L, Fleming % (Auto) 2.8, Eos % (Auto) 0.1, [...] 84.5 H, Lymph % (Auto) 10.7 L, Fleming % (Auto) 4.1, Eos % (Auto) 0.2, [...] line. Malignancy cannot be excluded. Reading Location: [facility] Lower Extremity CT 07/03/25 21:54 IMPRESSION: Acute, moderately comminuted and impacted right intertrochanteric femoral fracture. No aggressive osseous lesions. Reading Location: [facility] Physical Exam Narrative GENERAL: cooperative but [...] ? Requested for PT OT eval and forensic social worker to assist with discharge planning 3. Right [...] is for patient to follow-up with the [facility] following discharge 12. Restless leg syndrome ? [...] 50 Minutes Charges/Coding Visit Charges Inpatient E&M: 66286 [facility] Hosp 07/04/25 0737 Cosigner Signature (if applicable): CC: ~ Signed [facility]08-10-2025 Discharge summary Author Steven Tejeda [facility] Note Date/Time July 04, 2025 1: 09am [facility] Medical Records Department [address] [place] [address] Emergency Department Summary 07/03/25 MR#: [id number] Acct: [id number] Name: ITZEL ALONZO Rep #:[id number] : 1950 75 From: Steven Higgins PCP: Carlene Haji NP-C Status:ADM IN [place] [facility] [place]224-6 HPI History of Present Illness HPI Narrative: [...] Weakness or Loss of Funtion [facility] Medical History (Updated 07/03/25 @ [...] budesonide-formoterol HFA 80 2 puff inhalation BID LOOM TUNER D 05/09/21 Unknown History mcg-4.5 mcg/actuation aerosol [...] History (Updated 07/03/25 @ 23:[address] Joahnne Evans MD) household members: none housing: apartment [...] 90.1 H Lymph % (Auto) 6.3 L Fleming % (Auto) 2.8 Eos % (Auto) 0.1 Baso % (Auto) 0.2 Absolute Neuts (auto) 11.4 H Absolute Lymphs (auto) 0.80 L Nucleated RBC % 0 Differential Comment SCANNED RBC Morphology RARE Hypochromasia 1+ Anisocytosis 1+ Microcytosis 1+ [place] Cells RARE PT 15.5 H INR 1.2 [...] Clarity Clear Urine pH 6.0 Ur Specific Wilcox 1.010 Urine Protein 100 H Urine Glucose [...] Malignancy can not be excluded. Reading Location: [facility] Lower Extremity CT 07/03/25 21:54 IMPRESSION: Acute, moderately comminuted and impacted right intertrochanteric femoral fracture. No aggressive osseous lesions. Reading Location: [facility] X-rays of the right hip were [...] shows sinustachycardia with a rate of 112. VT interval was normal at 158 ms. QRS intervalwas normal at 76 ms. QTc interval is normal at 455 ms. Drifting was normal. Thereare nonspecific ST-T wave changes noted. There are no acute abnormalities noted. Prior EKG tracings: available for review Prior: Unchanged (05/11/2025) Management Discussion w/another healthcare provider: Hospitalist and Plant Inspector Treatment and Re-Evaluation Narrative: Patient was given [...] lung, Fall Disposition Disposition: Acute Care Hospital [facility] Discharge Date/Time: 07/03/25 23:37 What to do if you have Problems For any increased pain, shortness of breath, bleeding, nausea or vomiting, chestpain, or any unexpected problems, contact your Primary Care Provider. Call [facility] ([phone]) or report to the closest Emergency Room. Call 911 if necessary. 07/04/25 0109 <Electronically signed by Steven Tejeda DO> Cosigner Signature (if applicable): CC: TRAUMA COUNSELLOR-C Carlene Haji ~ Signed [facility] Work Phone: 1(572) 636-826708-10-2025 History and physical note Author Johanne Evans [facility] Note Date/Time July 03, 2025 11: 21pm [facility] Medical Records Department [address] [place] [address] H&P Exam - Hospitalist 07/03/252236 MR#: [id number] Acct: [id number] Name: ITZEL ALONZO Rep #:[id number] : 1950 75 From: Johanne Evans MD PCP: SID Haro Status:ADM IN [place] [facility] PK789-2 HPI - General General Date of Admission: [...] Formertobacco use, COPD, [place] [facility] on 05/13/25 following largeright-sided lung cancer wit suspected postobstructive pneumonia with acute metabolic encephalopathy suspected secondary to hypercalcemia of malignancy in addition to acute on chronic anemia with suspected upper GI bleed for further evaluation who now presents to the [facility] ED on 07/03/2025 with onset of [...] osseous lesion would plan to admit to [facility] and evaluate for repair of hip fracture. [facility] Medical History (Updated 07/03/25 @ 23:18 [...] budesonide-formoterol HFA 80 2 puff inhalation BID LOOM TUNER D 05/09/21 Unknown History mcg-4.5 mcg/actuation aerosol [...] Clarity Clear, Urine pH 6.0, Ur Specific Wilcox 1.010, Urine Protein 100 H, Urine Glucose [...] 90.1 H, Lymph % (Auto) 6.3 L, Fleming % (Auto) 2.8, Eos % (Auto) 0.1, Baso % (Auto) 0.2, Absolute Neuts (auto) 11.4 H, Absolute Lymphs (auto) 0.80 L, Nucleated RBC % 0, PT 15.5 H, INR 1.2, APTT 22.7 L Imaging Radiology Impression Hip/Pelvis X-Ray 07/03/25 20:20 IMPRESSION: Fracture of the right greater trochanter, extending into the intertrochanteric line. Malignancy can not be excluded. Reading Location: [facility] Lower Extremity CT 07/03/25 21:54 IMPRESSION: Acute, moderately comminuted and impacted right intertrochanteric femoral fracture. No aggressive osseous lesions. Reading Location: [facility] Assessment & Plan Assessment/Plan (1) Closed intertrochanteric fracture of right hip: (2) Fall: PLAN: Plan The patient is a 75 y/o M w/ PMHx: CKD stage II per GFR trending, RLS, Cirrhosisassociated with hepatitis unclear specific type, Diabetes mellitus type II with chronic neuropathy, Anxiety and Depression, GERD, Hx CVA, Chronic anemia, Formertobacco use, COPD, [place] [facility] on 05/13/25 following largeright-sided lung cancer wit suspected postobstructive pneumonia with acute metabolic encephalopathy suspected secondary to hypercalcemia of malignancy in addition to acute on chronic anemia with suspected upper GI bleed for further evaluation who now presents to the [facility] ED on 07/03/2025 with onset of [...] [facility] [...] 16 minutes. Charges/Coding Visit Charges Inpatient E&M: 51951 Init Hosp L3 Procedures Hospitalists Procedures: 86778 Advncd Care Plan 30 Min 07/03/25 2321 <Electronically signed by Johanne Evans MD> Cosigner Signature (if applicable): CC: TRAUMA COUNSELLORNissa Haji; Dr. Johanne Evans MD~ Signed [facility] Work Phone: 1(147) 464-817808-10-2025 Discharge summary [facility] Medical Records Department [address] [place] [address] Emergency Department Summary 07/03/25 MR#: [id number] Acct: [id number] Name: ITZEL ALONZO Rep #:[id number] : 1950 75 From: Steven Higgins PCP: SID Haro Status:ADM IN [place] [facility] UZ695-0 HPI History of Present Illness HPI Narrative: [...] Weakness or Loss of Funtion [facility] Medical History (Updated 07/03/25 @ [...] budesonide-formoterol HFA 80 2 puff inhalation BID LOOM TUNER D 05/09/21 Unknown History mcg-4.5 mcg/actuation aerosol [...] 90.1 H Lymph % (Auto) 6.3 L Fleming % (Auto) 2.8 Eos % (Auto) 0.1 Baso % (Auto) 0.2 Absolute Neuts (auto) 11.4 H Absolute Lymphs (auto) 0.80 L Nucleated RBC % 0 Differential Comment SCANNED RBC Morphology RARE Hypochromasia 1+ Anisocytosis 1+ Microcytosis 1+ Covington Cells RARE PT 15.5 H INR 1.2 [...] Clarity Clear Urine pH 6.0 Ur Specific Wilcox 1.010 Urine Protein 100 H Urine Glucose [...] line. Malignancy cannot be excluded. Reading Location: [facility] Lower Extremity CT 07/03/25 21:54 IMPRESSION: Acute, moderately comminuted and impacted right intertrochanteric femoral fracture. No aggressive osseous lesions. Reading Location: [facility] X-rays of the right hip were [...] interpretation, shows sinustachycardia with a rate of112. VT interval was normal at 158 ms. QRS intervalwas normal at 76 ms. QTc interval is normal at 455 ms. Drifting was normal. Thereare nonspecific ST-T wave changes noted. There are no acute abnormalities noted. Prior EKG tracings: available for review Prior: Unchanged (05/11/2025) Management Discussion w/another healthcare provider: Hospitalist and Plant Inspector Treatment and Re-Evaluation Narrative: Patient was given [...] lung, Fall Disposition Disposition: Acute Care Hospital [facility] Discharge Date/Time: 07/03/25 23:37 What to do if you have Problems For any increased pain, shortness of breath, bleeding, nausea or vomiting, chestpain, or any unexpected problems, contact your Primary Care Provider. Call [facility] ([phone]) or report tothe closest Emergency Room. Call 911 if necessary. 07/04/25 0109 Cosigner Signature (if applicable): CC: LUIS MIGUELC Carlene Haji ~ Signed [facility]08-09-2025 History and physical note [facility] Medical Records Department [address] [place] [address] H&P Exam - Hospitalist 07/03/252236 MR#: [id number] Acct: [id number] Name: ITZEL ALONZO Rep #:[id number] : 1950 75 From: Johanne Evans MD PCP: SID Haro Status:ADM IN [place] [facility] ML613-1 HPI - General General Date of Admission: [...] COPD, [facility] [place] [facility] on 05/13/25 following largeright-sided lung cancer wit suspected postobstructive pneumonia with acute metabolic encephalopathy suspected secondary to hypercalcemia of malignancy in addition to acute on chronic anemia with suspected upper GI bleed for further evaluation who now presents to the [facility] ED on 07/03/2025 with onset of [...] osseous lesion would plan to admit to [facility] and evaluate for repair of hip fracture. [facility] Medical History (Updated 07/03/25 @ 23:18 [...] budesonide-formoterol HFA 80 2 puff inhalation BID LOOM TUNER D 05/09/21 Unknown History mcg-4.5 mcg/actuation aerosol [...] Clarity Clear, Urine pH 6.0, Ur Specific Wilcox 1.010, Urine Protein 100 H, Urine Glucose [...] 90.1 H, Lymph % (Auto) 6.3 L, Fleming % (Auto) 2.8, Eos % (Auto) 0.1, Baso % (Auto)0.2, Absolute Neuts (auto) 11.4 H, Absolute Lymphs (auto) 0.80 L, Nucleated RBC % 0, PT 15.5 H, INR1.2, APTT 22.7 L Imaging Radiology Impression Hip/Pelvis X-Ray 07/03/25 20:20 IMPRESSION: Fracture of the right greater trochanter, extending into the intertrochanteric line. Malignancy cannot be excluded. Reading Location: [facility] Lower Extremity CT 07/03/25 21:54 IMPRESSION: Acute, moderately comminuted and impacted right intertrochanteric femoral fracture. No aggressive osseous lesions. Reading Location: [facility] Assessment & Plan Assessment/Plan (1) Closed intertrochanteric fracture of right hip: (2) Fall: PLAN: Plan The patient is a 75 y/o M w/ PMHx: CKD stage II per GFR trending, RLS, Cirrhosisassociated with hepatitis unclear specific type, Diabetes mellitus type II with chronic neuropathy, Anxiety and Depression, GERD, Hx CVA, Chronic anemia, Formertobacco use, COPD, [place] [facility] on 05/13/25 following largeright-sided lung cancer wit suspected postobstructive pneumonia with acute metabolic encephalopathy suspected secondary to hypercalcemia of malignancy in addition to acute on chronic anemia with suspected upper GI bleed for further evaluation who now presents to the [facility] ED on 07/03/2025 with onset of [...] [facility]: [facility], from [...] 16 minutes. Charges/Coding Visit Charges Inpatient E&M: 60412 Init Hosp L3 Procedures Hospitalists Procedures: 88788 Advncd Care Plan 30 Min 07/03/25 2321 Cosigner Signature (if applicable): CC: SID Haji; Dr. Johanne Evans MD~ Signed [facility]08-09-2025 Radiology Diagnostic study note [facility] Imaging Services [address] [place], [place] [address] Extremity Lower without Contra MR#: [id number] Acct: [id number] Name: ITZEL ALONZO Rep #: [id number] : 1950 M 75 From: Bridget Abraham MD PCP: SID Haro Status: REG ER Study:Extremity Lower without Contra Date of Exam: 07/03/25 Exam# [id number] Ordering Dr: Taylor Campbell MD PROCEDURE: EXTREMITY [...] fracture. No aggressive osseous lesions. Reading Location: [facility] CC: SID Haji; Dr. Nuno Campbell MD ~ Route Returner: Signed [facility]08-09-2025 Radiology Diagnostic study note [facility] Imaging Services [address] [place] [address] HIP, UNI W/ Pelvis 2-3 Views MR#: [id number] Acct: [id number] Name: ITZEL ALONZO Rep #: [id number] : 1950 M 75 From: Bridget Abraham MD PCP: SID Haro Status: REG ER Study:HIP, UNI W/ Pelvis 2-3 Views Date of Ex am: 07/03/25 Exam# [id number] Ordering Dr: Steven Tejeda DO PROCEDURE: HIP, [...] line. Malignancy cannot be excluded. Reading Location: [facility] CC: IKE-René Haji; Dr. Steven Tejeda DO ~ Route Returner: Signed [facility]06-19-2025 Discharge summary [facility] Medical Records Department [address] [place] [address] Discharge Summary 05/13/25 1257 MR#: [id number] Acct: [id number] Name: ITZEL ALONZO Rep #:[id number] : 1950 74 From: Anthony Kiser PCP: SID Haro Status:ADM IN Location: [facility] MAQ802- 1 Providers Date of Admission: 05/11/25 Primary [...] Patient is a 74-year-old male who presented [facility] ED on 05/11/2025 with worsening fatigue, weakness and confusion. 1. Large right-sided lung cancer with suspected postobstructive pneumonia ? Admit under inpatient status to PCU. Patient with known history of large right-sided lung cancer.Chest x-ray on admit with concern for acute postobstructive pneumonia in setting of lung cancer. Stable on room air at rest. Patient has established oncologist Dr. Lake, [facility]. I myself tried to contact through the transfer line 2 times but unsuccessful. Discussed with the case finisher. [place] oncologist wanted CT head before transfer. In [...] As plan is for transfer to the [place], will hold on GI consult for now. [...] code, verified Expected disposition: Likely transfer to [place] Patient [place] being [place] [facility] for further care and decision makingregarding [...] lung cancer, exact sampler/tissue type unclear. Follows [place] oncologist, await path . Because of transportation [...] 75.7 H, Lymph % (Auto) 16.4 L, Fleming % (Auto) 6.5, Eos % (Auto) 0.9, [...] mass. No acute intracranial process. Reading Location: [id number] D/C Instructions DC O2, CPAP, BIPAP Needs [...] Anthony Salgado Charges/Coding Visit Charges Inpatient E&M: 82856 Disch Hosp >30min 05/13/25 1400 Cosigner Signature (if applicable): CC: IKE-C Carlene Haji; Dr. Anthony Salgado MD~ Signed [facility]06-19-2025 Consult note [facility] Medical Records Department [address] [place] [address] Pharmacokinetic/Renal -Consult 05/13/25 1107 MR#: [id number] Acct: [id number] Name: ITZEL ALONZO Rep #:[id number] : 1950 74 From: Gaye Garcia PCP: SID Haro Status:ADM IN Y Location: [place] [address] Consult [facility] Pharmacy has been consulted [...] Date Anthony Salgado MD CC: ~ Signed [facility]06-19-2025 Consult note Author Gaye Garcia [facility] Note Date/Time May 13, 2025 1:57 pm [facility] Medical Records Department [address] [place] [address] Pharmacokinetic/Renal -Consult 05/13/25 1107 MR#: [id number] Acct: [id number] Name: ITZEL ALONZO Rep #:[id number] : 1950 74 From: Gaye Garcia PCP: Carlene Haji, TRAUMA COUNSELLOR-C Status:ADM IN Location: [place] [address] Consult Antibiotic Management Pharmacy has been consulted [...] Date Anthony Salgado MD CC: ~ Signed [facility] Work Phone: [phone]) 610-542506-19-2025 [facility] Medical Records Department [address] [place] [address] Discharge Summary 05/13/25 1257 MR#: [id number] Acct: [id number] Name: ITZEL ALONZO Rep #: [id number] : 1950 74 From: Anthony Salgado MD PCP: SID Haro Status:ADM IN Location: [place] [address] Providers Date of Admission: 05/11/25 Primary Care [...] Patient is a 74-year-old male who presented [facility] ED on 05/11/2025 with worsening fatigue, weakness and confusion. 1. Large right-sided lung cancer with suspected postobstructive pneumonia ??? Admit under inpatient status to U. Patient with known history of large right-sided lung cancer. Chest x-ray on admit with concern for acute postobstructive pneumonia in setting of lung cancer. Stable on room air at rest. Patient has established oncologist Dr. Lake, [facility]. I myself tried to contact through the transfer line 2 times but unsuccessful. Discussed with the case finisher. [facility] before transfer. [...] As plan is for [place], will hold on GI consult for now. [...] code, verified Expected disposition: Likely transfer to [place] [facility] for further care and decision making [...] PO DAILY PRN c (more content not included)...[facility]06-18-2025 Progress note Author Anthony Salgado [facility] Note Date/Time May 12, 2025 5:22 pm [facility] Medical Records Department [address] [facility] [place] [address] Progress Note - Hospitalist 05/12/25 0935 MR#: [id number] Acct: [id number] Name: ITZEL ALONZO Rep #:[id number] : 1950 74 From: Anthony Kiser PCP: SID Haro Status:ADM IN Location: [facility] GSH227- 1 Reason for Visit Reason for Visit: [...] 74.3 H, Lymph % (Auto) 18.4 L, Fleming % (Auto) 5.8, Eos % (Auto) 0.8, [...] associated with end-stage honeycomb fibrosis. [facility] Physical Exam Narrative Seen and examined Patient has mild lethargic but wake up. Shortness of breath mild chest congestion. Diagnosed with a right suprahilar lung cancer, exact sampler/tissuetype unclear. Follows [place] oncologist, await path . Because of transportation [...] Patient is a 74-year-old male who presented [facility] ED on 05/11/2025 with worsening fatigue, weakness and confusion. 1. Large right-sided lung cancer with suspected postobstructive pneumonia ? Admit under inpatient status to PCU. Patient with known history of large right-sided lung cancer. Chest x-ray on admit with concern for acute postobstructive pneumonia in setting of lung cancer. Stable on room air at rest. Patient has established oncologist Dr. Lake, [facility]. I myself tried to contact through the transfer line 2 times but unsuccessful. Discussed with the case finisher. [place] oncologist wanted CT head before transfer. In [...] As plan is for transfer to the [place], will hold on GI consult for now. [...] code, verified Expected disposition: Likely transfer to [place] Total time of the visit including total time spent in counseling or coordinationof care, (more than 50% of the total time, spent in obtaining medical information from nurses and other ancillary care providers ,explaining to the patient about labs, imaging, diagnosis and management of active complex medical conditions), effort to transfer [place] [facility], discussion with case finisher, review of labs and imaging is 35 [...] 278 H Charges/Coding Visit Charges Inpatient E&M: 82251 Subs Hosp L3 05/12/25 1722 <Electronically signed by Anthony Salgado MD> Cosigner Signature (if applicable): CC: ~ Signed [facility] Work Phone: 1(989) 650-734106-18-2025 Radiology Diagnostic study note [facility] Imaging Services [address] [place], [place] [address] Brain/Head W/WO Contrast MR#: [id number] Acct: [id number] Name: ITZEL ALONZO Rep #: [id number] : 1950 M 74 From: Estella Coley MD PCP: Carlene Haji TRAUMA COUNSELLOROnurC Status: ADM IN Study:Brain/Head W/WO Contrast Date of Exam: 05/12/25 Exam# [id number] Ordering Dr: Venessa Salgado MD PROCEDURE: BRAIN/HEAD [...] iterative reconstruction technique). RADIATION DOSE SUMMARY: DLP: 9668 mGycm COMPARISON: 05/04/2025 FINDINGS: No abnormal enhancing [...] mass. No acute intracranial process. Reading Location: [id number] CC: SID Haji; Dr. Anthony Salgado MD ~ Route Returner: Signed [facility]06-18-2025 Progress note [facility] Medical Records Department [address] [place] [address] Progress Note - Hospitalist 05/12/25 0935 MR#: [id number] Acct: [id number] Name: ITZEL ALONZO Rep #:[id number] : 1950 74 From: Anthony Kiser PCP: SID Haro Status:ADM IN [facility] [id number]- 1 Reason for Visit Reason for Visit: [...] 74.3 H, Lymph % (Auto) 18.4 L, Fleming % (Auto) 5.8, Eos % (Auto) 0.8, [...] associated with end-stage honeycomb fibrosis. [facility] Physical Exam Narrative Seen and examined [...] Patient is a 74-year-old male who presented [facility] ED on 05/11/2025 with worsening fatigue, weakness and confusion. 1. Large right-sided lung cancer with suspected postobstructive pneumonia ? Admit under inpatient status to PCU. Patient with known history of large right-sided lung cancer.Chest x-ray on admit with concern for acute postobstructive pneumonia in setting of lung cancer. Stable on room air at rest. Patient has established oncologist Dr. Lake, [facility]. I myself tried to contact through the transfer line 2 times but unsuccessful. Discussed with the case finisher. [place] oncologist wanted CT head before transfer. In [...] As plan is for transfer to the [place], will hold on GI consult for now. [...] code, verified Expected disposition: Likely transfer to [place] Total time of the visit including total time spent in counseling or coordinationof care, (more than50% of the total time, spent in obtaining medical information from nurses and other ancillary care providers ,explaining to the patient about labs, imaging, diagnosis and management of active complexmedical conditions), effort to transfer [facility], discussion with case finisher, review of labs and imaging is 35 [...] 278 H Charges/Coding Visit Charges Inpatient E&M: 34808 Subs Hosp L3 05/12/25 1722 Cosigner Signature (if applicable): CC: ~ Signed [facility]06-18-2025 History and physical note Author Lane chandler [facility] Note Date/Time May 12, 2025 12:4 6am [facility] Medical Records Department [address] [place] [address] H&P Exam - Hospitalist 05/11/259 MR#: [id number] Acct: [id number] Name: ITZEL ALONZO Rep #:[id number] : 1950 74 From: Lane dunn DO PCP: SID Haro Status:ADM IN Location: [facility] [id number]- 1 HPI - General General Date of Admission: 05/11/25 Date of Service: 05/11/25 Chief Complaint: Worsening fatigue, weakness and confusion HPI Narrative ITZEL ALONZO, is a 74 M who presented to [facility] ED on 05/11/2025 with worsening fatigue, weakness and confusion. Patient has been seenin our ED recently but he receives his care through the [place]. He was diagnosed with right- sided lung cancer about 1 year ago. It appears this diagnosis was confirmed on bronchial biopsy. Patient declined active treatment at that time and preferred close monitoring. However, patient has issues with transportationand has had difficulty getting to his appointments with oncology at the [place]. He lives at home with his significant [...] phone with the transfer nurse with the [place] briefly rex. Nurse noted that transfer could be initiated there but as the admitting physician was gone for the day, transfer will not happen until tomorrow at the earliest. [facility] Medical History (Updated 05/12/25 @ 00:00 [...] budesonide-formoterol HFA 80 2 puff inhalation BID LOOM TUNER D 05/09/21 Unknown History mcg-4.5 mcg/actuation aerosol [...] 74.3 H, Lymph % (Auto) 18.4 L, Fleming % (Auto) 5.8, Eos % (Auto) 0.8, [...] associated with end-stage honeycomb fibrosis. Reading [facility] Assessment & Plan Assessment/Plan (1) Lung cancer: (2) Hypercalcemia: (3) Acute on chronic anemia: PLAN: Plan Patient is a 74-year-old male who presented [facility] ED on 05/11/2025 with worsening fatigue, [...] Patient has established with oncology at the [facility]. Has deferred treatment for the lung cancer up to this point. Discussed with patient and family extensively in the ED and noted to them that unfortunately his condition will continue to worsen without active chemotherapy or radiation therapy for this lung cancer. Patient was scheduled to follow-up with oncology at the [place] next week. Transfer has been initiated to the [place]. 2. Acute metabolic encephalopathy suspected secondary to [...] As plan is for transfer to the [place], will hold on GI consult for now. [...] code, verified Expected disposition: Likely transfer to [place] Total clinical time spent by myself addressing the patient's medical issues, reviewing all the data, and collaborating with patient's care team: 75 minutes. Charges/Coding Visit Charges Inpatient E&M: 22972 Init Hosp L3 05/12/25 0046 <Electronically signed by Lane Stanley DO> Cosigner Signature (if applicable): CC: SID Haji; Dr. Lane Stanley DO~ Signed [facility] Work Phone: 1(858) 944-892706-18-2025 History and physical note [facility] Medical Records Department [address] [place] [address] H&P Exam - Hospitalist 05/11/25 191 MR#: [id number] Acct: [id number] Name: ITZEL ALONZO Rep #:[id number] : 1950 74 From: Lane dunn DO PCP: SID Haro Status:ADM IN Location: [place] [id number]- [id number] HPI - General General Date of Admission: 05/11/25 Date of Service: 05/11/25 Chief Complaint: Worsening fatigue, weakness and confusion HPI Narrative ITZEL ALONZO, is a 74 M who presented to [facility] ED on 05/11/2025 with worsening fatigue, [...] getting tohis appointments with oncology at the [place]. He lives at home with his significant [...] phone with the transfer nurse with the [place] briefly rex. Nurse noted that transfer could be initiated there but as the admitting physician was gone for the day, transfer will not happen until tomorrow at the earliest. [facility] Medical History (Updated 05/12/25 @ 00:00 [...] budesonide-formoterol HFA 80 2 puff inhalation BID LOOM TUNER D 05/09/21 Unknown History mcg-4.5 mcg/actuation aerosol [...] 74.3 H, Lymph % (Auto) 18.4 L, Fleming % (Auto) 5.8, Eos % (Auto) 0.8, [...] associated with end-stage honeycomb fibrosis. Reading [facility] Assessment & Plan Assessment/Plan (1) Lung cancer: (2) Hypercalcemia: (3) Acute on chronic anemia: PLAN: Plan Patient is a 74-year-old male who presented [facility] ED on 05/11/2025 with worsening fatigue, [...] Patient has established with oncology at the [facility]. Has deferred treatment for the lung cancerup to this point. Discussed with patient and family extensively in the ED and noted to them that unfortunately his condition will continue to worsen without active chemotherapy or radiation therapy for this lung cancer. Patient was scheduled to follow-up with oncology at the [place] next week. Transfer h as been initiated to the [place]. 2. Acute metabolic encephalopathy suspected secondary to [...] As plan is for transfer to the [place], will hold on GI consult for now. [...] code, verified Expected disposition: Likely transfer to [place] Total clinical time spent by myself addressing the patient's medical issues, reviewing all the data, and collaborating with patient's care team: 75 minutes. Charges/Coding Visit Charges Inpatient E&M: 01381 Init Hosp L3 05/12/25 0046 Cosigner Signature (if applicable): CC: TRAUMA COUNSELLORNissa Haji; Dr. Lane Stanley, DO~ Signed [facility]06-18-2025 Consult note Author Clarke Montesinos [facility] Note Date/Time May 11, 2025 10:3 8pm [facility] Medical Records Department [address] [place] [address] Pharmacokinetic/Renal -Consult 05/11/252236 MR#: [id number] Acct: [id number] Name: CHERIITZEL A Rep #:[id number] : 1950 74 From: Clarke Bailon od PCP: SID Haro Status:ADM IN Y Location: [place] [address] Consult Antibiotic Management Pharmacy has been consulted [...] Signature (if applicable): Date CC: ~ Signed [facility] Work Phone: 1(462) 855-383506-17-2025 Discharge summary Author Monty Clarke [facility] Note Date/Time May 11, 2025 9:07 pm [facility] Medical Records Department [address] [place] [address] Emergency Department Summary 05/11/25 MR#: [id number] Acct: [id number] Name: ITZEL ALONZO Rep #:[id number] : 1950 74 From: Monty Clarke MD PCP: Carlene Haji, TRAUMA COUNSELLOROnurC Status:ADM IN Location: [place] [address]- [address] Monty Clarke MD on 05/11/25 at 2107 EKG was obtained 1709 interpreted by vt at 1711. The EKG is normal. Rate is 91. VT interval, QRS duration, QT duration and axis are all normal. 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 [...] Prior similar symptoms: No Recent [facility] Medical History (Updated 05/11/25 @ 18:41 [...] budesonide-formoterol HFA 80 2 puff inhalation BID LOOM TUNER D 05/09/21 Unknown History mcg-4.5 mcg/actuation aerosol [...] 74.3 H Lymph % (Auto) 18.4 L Fleming % (Auto) 5.8 Eos % (Auto) 0.8 [...] associated with end-stage honeycomb fibrosis. Reading Location: [facility] EKG Initial EKG: Attestation: I personally reviewed and interpreted this EKG as follows: Interpretation: Sinus Rhythm (Sinus rhythm rate of 91. Normal EKG. VT interval 150 ms Rickers duration 90 ms. QT duration 3096 ms. Drifting is normal. EKG is unchanged from prior. ) Prior: Changed (September 14, 2021) Management Discussion w/another healthcare provider: Hospitalist (Dr. Stanley requested Icontact Dr. Robertson to make sure it is okay for me to admit this patient to [facility]) Additional Tests and Interventions Additional Tests [...] U. Have not heard back from the [place] as of 1840 Critical Care Time Critical Care Time: Yes Critical care time (excluding procedures): 30-74 minutes (31), Including time spent: (History, physical, documentation, independent rotation of laboratory results and x-ray and initiation of treatment for obstructive pneumonia and abnormal EKG with elevated troponin), Discussing w/Patient &/or Family/Fire Extinguisher Repairer Inspector, Discussing w/Consultants and Arranging Admission or Transfer Discharge Plan Dx/Rx/DC Orders Clinical Impression: Obstructive pneumonia, Microcytic anemia, Acute on chronic anemia, Exertional dyspnea, Elevated troponin, Sinus tachycardia seen on shelter monitor, Hypercalcemia, Lung cancer Disposition Disposition: Acute Care Hospital [facility] What to do if you have Problems For any increased pain, shortness of breath, bleeding, nausea or vomiting, chestpain, or any unexpected problems, contact your Primary Care Provider. Call [facility] ([phone]) or report to the closest Emergency Room. Call 911 if necessary. 05/11/251840 <Electronically signed by Monty Clarke MD> Cosigner Signature (if applicable): CC: TRAUMA COUNSELLOROnurC Carlene Haji ~ Signed [facility] Work Phone: 1(699) 746-710906-17-2025 Consult note [facility] Medical Records Department [address] [place] [address] Pharmacokinetic/Renal -Consult 05/11/252236 MR#: [id number] Acct: [id number] Name: CHERIITZEL A Rep #:[id number] : 1950 74 From: Clarke Bailon od PCP: SID Haro Status:ADM IN Y Location: [place] [address] Consult Antibiotic Management Pharmacy has been consulted [...] Signature (if applicable): Date CC: ~ Signed [facility]06-17-2025 Evaluation note* Diagnosis Onset Date Resolution Status Admit Date Elevated troponin acute May 112024 7:20pm Exertional dyspnea acute April 252024 7:20pm Hypercalcemia acute May 11, 2025 7:20pm Lung cancer acute May 11 7:20pm Microcytic anemia acute May 112024 7:20pm Obstructive pneumonia acute Jamey 2024 7:20pm Sinus tachycardia seen on shelter monitor acute May 11, 2025 7:20pm Acute on chronic anemia chronic J [facility] 2024 7:20pm [facility] Work Phone: 1(595) 224-474906-17-2025 Evaluation note* Diagnosis Onset Date Resolution Status Admit Date Elevated troponin acute May 112024 7:20pm Exertional dyspnea acute April 252024 7:20pm Hypercalcemia acute May 11, 2025 7:20pm Lung cancer acute May 11 7:20pm Microcytic anemia acute May 112024 7:20pm Obstructive pneumonia acute Apr 7:20pm Sinus tachycardia seen on ca rdiac monitor acute May 11, 2025 7:20pm Acute on chronic anemia chronic J [facility] 2024 7:20pm Closed intertrochanteric fra cture of right hip acute July 03, 2025 10:54pm Fall acute July 03 10:54pm [facility] Work Phone: 1(196) 602-703506-17-2025 Evaluation note* Diagnosis Onset Date Resolution Status Admit Date Elevated troponin acute May 112024 7:20pm Exertional dyspnea acute April 252024 7:20pm Hypercalcemia acute May 11, 2025 7:20pm Lung cancer acute May 11 7:20pm Microcytic anemia acute May 112024 7:20pm Obstructive pneumonia acute Apr 7:20pm Sinus tachycardia seen on ca rdiac monitor acute May 11, 2025 7:20pm Acute on chronic anemia chronic J [facility] 2024 7:20pm Closed intertrochanteric fra cture of right hip inactive July 03, 2025 10:54pm Fall inactive July 03 10:54pm [facility] Work Phone: 1(642) 845-557706-17-2025 Discharge summary [facility] Medical Records Department [address] [place] [address] Emergency Department Summary 05/11/25 MR#: [id number] Acct: [id number] Name: ITZEL ALONZO Rep #:[id number] : 1950 74 From: Monty Clarke MD PCP: Carlene Haji, TRAUMA COUNSELLOR-C Status:ADM IN Location: [facility] [id number]- [address] Monty Clarke MD on 05/11/25 at 2107 EKG was obtained 1709 interpreted by me at 1711. The EKG is normal. Rate is 91. VT interval, QRS duration, QT duration and axis are all normal. 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 [...] symptoms: No Recent Illness/Hospitalization: Yes [facility] Medical History (Updated 05/11/25 @ 18:41 [...] budesonide-formoterol HFA 80 2 puff inhalation BID LOOM TUNER D 05/09/21 Unknown History mcg-4.5 mcg/actuation aerosol [...] 74.3 H Lymph % (Auto) 18.4 L Fleming % (Auto) 5.8 Eos % (Auto) 0.8 [...] associated with end-stage honeycomb fibrosis. Reading [facility] EKG Initial EKG: Attestation: I personally reviewed and interpreted this EKG as follows: Interpretation: Sinus Rhythm (Sinus rhythm rate of 91. Normal EKG. VT interval 150 ms Rickers duration 90 ms. QT duration 3096 ms. Drifting is normal. EKG is unchanged from prior. ) Prior: Changed (September 14, 2021) Management Discussion w/another healthcare provider: Hospitalist (Dr. Stanley requested Icontact Dr. Robertson to make sure it is okay for me to admit this patient to [facility]) Additional Tests and Interventions Additional Tests [...] to PCU.Have not heard back from the [place] as of 1840 Critical Care Time Critical Care Time: Yes Critical care time (excluding procedures): 30-74 minutes (31), Including time spent: (History, physical, documentation, independent rotation of laboratory results and x-ray and initiation of treatment for obstructive pneumonia and abnormal EKG with elevated troponin), Discussing w/Patient &/or Family/Fire Extinguisher Repairer Inspector, Discussing w/Consultants and Arranging Admission or Transfer Discharge Plan Dx/Rx/DC Orders Clinical Impression: Obstructive pneumonia, Microcytic anemia, Acute on chronic anemia, Exertional dyspnea, Elevated troponin, Sinus tachycardia seen on shelter monitor, Hypercalcemia, Lung cancer Disposition Disposition: Acute Care Hospital [facility] What to do if you have Problems For any increased pain, shortness of breath, bleeding, nausea or vomiting, chestpain, or any unexpected problems, contact your Primary Care Provider. Call [facility] ([phone]) or report tothe closest Emergency Room. Call 911 if necessary. 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 [...] symptoms: No Recent Illness/Hospitalization: Yes [facility] Medical History (Updated 05/11/25 @ 18:41 [...] budesonide-formoterol HFA 80 2 puff inhalation BID LOOM TUNER D 05/09/21 Unknown History mcg-4.5 mcg/actuation aerosol [...] 74.3 H Lymph % (Auto) 18.4 L Fleming % (Auto) 5.8 Eos % (Auto) 0.8 [...] associated with end-stage honeycomb fibrosis. Reading [facility] EKG Initial EKG: Attestation: I personally reviewed and interpreted this EKG as follows: Interpretation: Sinus Rhythm (Sinus rhythm rate of 91. Normal EKG. VT interval 150 ms Rickers duration 90 ms. QT duration 3096 ms. Drifting is normal. EKG is unchanged from prior. ) Prior: Changed (September 14, 2021) Management Discussion w/another healthcare provider: Hospitalist (Dr. Stanley requested Icontact Dr. Robertson to make sure it is okay for me to admit this patient to [facility]) Additional Tests and Interventions Additional Tests [...] EKG with elevated troponin), Discussing w/Patient &/or Family/Fire Extinguisher Repairer Inspector, Discussing w/Consultants and Arranging Admission or Transfer Discharge Plan Dx/Rx/DC Orders Clinical Impression: Obstructive pneumonia, Microcytic anemia, Acute on chronic anemia, Exertional dyspnea, Elevated troponin, Sinus tachycardia seen on shelter monitor, Hypercalcemia, Lung cancer Disposition Disposition: Acute Care Hospital [facility] What to do if you have Problems For any increased pain, shortness of breath, bleeding, nausea or vomiting, chestpain, or any unexpected problems, contact your Primary Care Provider. Call [facility] ([phone]) or report tothe closest Emergency Room. Call 911 if necessary. 05/11/251840 Cosigner Signature (if applicable): CC: TRAUMA COUNSELLOR-C Carlene Haji ~ Signed [facility]06-17-2025 Radiology Diagnostic study note [facility] Imaging Services [address] [place] [address] Chest PA and Lateral MR#: [id number] Acct: [id number] Name: ITZEL ALONZO Rep #: [id number] : 1950 M 74 From: Pet er Peer DO PCP: SID Haro Status: REG ER Study:Chest PA and Lateral Date of Exam: 05/11/25 Exam# [id number] Ordering Dr: Karin Clarke MD PROCEDURE: CHEST [...] associated with end-stage honeycomb fibrosis. Reading [facility] CC: TRAUMA COUNSELLOR-C Carlene Haji; Dr. 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 [...] symptoms: No Recent Illness/Hospitalization: Yes [facility] Medical History (Updated 05/11/25 @ 18:41 [...] budesonide-formoterol HFA 80 2 puff inhalation BID LOOM TUNER D 05/09/21 Unknown History mcg-4.5 mcg/actuation aerosol [...] 74.3 H Lymph % (Auto) 18.4 L Fleming % (Auto) 5.8 Eos % (Auto) 0.8 [...] associated with end-stage honeycomb fibrosis. Reading Location: [facility] EKG Initial EKG: Attestation: I personally reviewed and interpreted this EKG as follows: Interpretation: Sinus Rhythm (Sinus rhythm rate of 91. Normal EKG. VT interval 150 ms Rickers duration 90 ms. QT duration 3096 ms. Drifting is normal. EKG is unchanged from prior. ) Prior: Changed (September 14, 2021) Management Discussion w/another healthcare provider: Hospitalist (Dr. Stanley requested Icontact Dr. Robertson to make sure it is okay for me to admit this patient to [facility]) Additional Tests and Interventions Additional Tests [...] EKG with elevated troponin), Discussing w/Patient &/or Family/Fire Extinguisher Repairer Inspector, Discussing w/Consultants and Arranging Admission or Transfer Discharge Plan Dx/Rx/DC Orders Clinical Impression: Obstructive pneumonia, Microcytic anemia, Acute on chronic anemia, Exertional dyspnea, Elevated troponin, Sinus tachycardia seen on shelter monitor, Hypercalcemia, Lung cancer Disposition Disposition: Acute Care Hospital [facility] What to do if you have Problems For any increased pain, shortness of breath, bleeding, nausea or vomiting, chestpain, or any unexpected problems, contact your Primary Care Provider. Call [facility] ([phone]) or report to the closest Emergency Room. Call 911 if necessary. 05/11/25 184 <Electronically signed by Monty Clarke MD> Cosigner Signature (if applicable): CC: TRAUMA COUNSELLOR-C Carlene Haji ~ Signed [facility] Work Phone: 1(134) 222-914006-17-2025 Evaluation note* Diagnosis Onset Date Resolution Status Admit Date Elevated troponin acute May 112024 7:20pm Exertional dyspnea acute April 252024 7:20pm Hypercalcemia acute May 11, 2025 7:20pm Microcytic anemia acute May 112024 7:20pm Obstructive pneumonia acute Jamey e 2024 7:20pm Sinus tachycardia seen on shelter monitor acute May 11, 2025 7:20pm Acute on chronic anemia chronic J une 2024 7:20pm [facility] Work Phone: 1(531) 494-591706-10-2025 Radiology Diagnostic study note [facility] Imaging Services [address] [place], [place] [address] Brain/Head without Contrast MR#: [id number] Acct: [id number] Name: ITZEL ALONZO Rep #: [id number] : 1950 M 74 From: Bert Sloan MD PCP: Carlene Haji, SID Status: REG ER Study:Brain/Head without Contrast Date of Exa m: 05/04/25 Exam# [id number] Ordering Dr: Ike Dawson DO PROCEDURE: BRAIN/HEAD [...] or other acute process noted. Reading Location: [address] CC: TRAUMA COUNSELLOR-C Carlene Haji; Dr. Ike Dawson DO ~ Route Returner: Signed [facility]06-10-2025 Radiology Diagnostic study note [facility] Imaging Services [address] [place], [place] [id number] Spine Cervical without Contras MR#: [id number] Acct: [id number] Name: ITZEL ALONZO Rep #: [id number] : 1950 M 74 From: Juan Miguel Santos MD PCP: Carlene Haji, TRAUMA COUNSELLOR-C Status: REG ER Study:Spine Cervical without Contras Date of Exam: 05/04/25 Exam# [id number] Ordering Dr: Ike Dawson DO PROCEDURE: SPINE [...] Right upper lobe pulmonary mass. Reading Location: [facility] CC: TRAUMA COUNSELLOROnurC Carlene Haji; Dr. Ike Dawson DO ~ Route Returner: Signed [facility]06-10-2025 Radiology Diagnostic study note [facility] Imaging Services [address], [place] [id number] Chest without Contrast MR#: [id number] Acct: [id number] Name: ITZEL ALONZO Rep #: [id number] : 1950 M 74 From: Juan Miguel Santos MD PCP: SID Haro Status: REG ER Study:Chest without Contrast Date of Exam: 05/04/25 Exam# [id number] Ordering Dr: Ike Dawson DO PROCEDURE: CHEST [...] at the right lung base. Reading Location: [place] [address] CC: SID Haji; Dr. Ike Dawson DO ~ Route Returner: Signed [facility]06-10-2025 Radiology Diagnostic study note [facility] Imaging Services [address] [place] [address] Shoulder min 2 Views MR#: [id number] Acct: [id number] Name: ITZEL ALONZO Rep #: [id number] : 1950 M 74 From: Juan Miguel Santos MD PCP: SID Haro Status: REG ER Study:Shoulder min 2 Views Date of Exam: 05/04/25 Exam# [id number] Ordering Dr: Ike Dawson DO PROCEDURE: SHOULDER [...] Correlation witha CT scan recommended. Reading Location: [facility] CC: SID Haji; Dr. Ike Dawson DO ~ Route Returner: Signed [facility]05-30-2025 Radiology Diagnostic study note [facility] Imaging Services [address] [place], [place] [address] STROKE CTA Head AND Neck W/Con MR#: [id number] Acct: [id number] Name: ITZEL ALONZO Rep #: [id number] : 1950 M 74 From: Oswald Perez MD PCP: Carlene Haji, TRAUMA COUNSELLOR-C Status: REG ER Study:STROKE CTA Head AND Neck W/Con Date of Exam: 04/23/25 Exam# [id number] Ordering Dr: Steven Tejeda DO PROCEDURE: STROKE [...] occluded similar to the prior CTA. Anatomy: [place] anatomy is normal. Aneurysm or [...] apical mass suspicious for malignancy. Reading Location: [id number] CC: SID Haji; Dr. Steven Tejeda DO ~ Route Returner: Signed [facility]05-30-2025 Radiology Diagnostic study note [facility] Imaging Services [address] [place] [id number] Chest 1 View (Portable) MR#: [id number] Acct: [id number] Name: ITZEL ALONZO Rep #: [id number] : 1950 M 74 From: Oswald Perez MD PCP: Carlene Haji, TRAUMA COUNSELLOR-C Status: REG ER Study:Chest 1 View (Portable) Date of Exam: 04/23/25 Exam# [id number] Ordering Dr: Steven Tejeda DO PROCEDURE: CHEST [...] regions which may represent adenopathy. Reading Location: [id number] CC: SID Haji; Dr. Steven Tejeda DO ~ Route Returner: Signed [facility]05-30-2025 Radiology Diagnostic study note [facility] Imaging Services [address] [place] [address] STROKE Brain/Head without Cont MR#: [id number] Acct: [id number] Name: ITZEL ALONZO Rep #: [id number] : 1950 M 74 From: Oswald Perez MD PCP: Carlene Haji, TRAUMA COUNSELLOR-C Status: REG ER Study:STROKE Brain/Head without Cont Date of Exam: 04/23/25 Exam# [id number] Ordering Dr: Steven Tejeda DO PROCEDURE: STROKE [...] atrophy and chronic microvascular ischemia. Reading Location: [id number] CC: SID Haji; Dr. Steven Tejeda, ~ Route Returner: [facility]igned [facility] Author Anthony Salgado [facility] Note Date/Time May 13, 2025 2:00 pm [facility] Medical Records Department [address] [place] [address] Discharge Summary 05/13/25 1257 MR#: [id number] Acct: [id number] Name: CHERIITZEL A Rep #:[id number] : 1950 74 From: Anthony Kiser PCP: SID Haro Status:ADM IN Location: [facility] [id number] Providers Date of Admission: 05/11/25 Primary [...] Patient is a 74-year-old male who presented [facility] ED on 05/11/2025 with worsening fatigue, weakness and confusion. 1. Large right-sided lung cancer with suspected postobstructive pneumonia ? Admit under inpatient status to PCU. Patient with known history of large right-sided lung cancer. Chest x-ray on admit with concern for acute postobstructive pneumonia in setting of lung cancer. Stable on room air at rest. Patient has established oncologist Dr. Lake, [facility]. I myself tried to contact through the transfer line 2 times but unsuccessful. Discussed with the case finisher. [place] oncologist wanted CT head before transfer. In [...] As plan is for transfer to the [place], will hold on GI consult for now. [...] code, verified Expected disposition: Likely transfer to [place] [facility] for further care and decision makingregarding [...] lung cancer, exact sampler/tissue type unclear. Follows [place] oncologist, await path . Because of transportation [...] 75.7 H, Lymph % (Auto) 16.4 L, Fleming % (Auto) 6.5, Eos % (Auto) 0.9, [...] mass. No acute intracranial process. Reading Location: [facility] D/C Instructions DC O2, CPAP, [...] Anthony Salgado Charges/Coding Visit Charges Inpatient E&M: 19288 Disch Hosp >30min 05/13/25 1400 <Electronically signed by Anthony Salgado MD> Cosigner Signature (if applicable): CC: LUIS MIGUELC Carlene aHji; Dr. Anthony Salgado MD~ Signed [facility] Work Phone: Evaluation noteNo assessment information available [facility] Work Phone: History and physical note Author Johanne Evans [facility] Note Date/Time July 03, 2025 11: 21pm [facility] Medical Records Department [address] [place] [address] H&P Exam - Hospitalist 07/03/252236 MR#: [id number] Acct: [id number] Name: ITZEL ALONZO Rep #:[id number] : 1950 75 From: Johanne Evans MD PCP: SID Haro Status:ADM IN [place] [facility] [id number] HPI - General General Date of Admission: [...] COPD, [facility] on [facility]/13/25 following largeright-sided lung cancer wit suspected postobstructive pneumonia with acute metabolic encephalopathy suspected secondary to hypercalcemia of malignancy in addition to acute on chronic anemia with suspected upper GI bleed for further evaluation who now presents to the [facility] ED on 07/03/2025 with onset of [...] osseous lesion would plan to admit to [facility] and evaluate for repair of hip fracture. [facility] Medical History (Updated 07/03/25 @ 23:18 [...] budesonide-formoterol HFA 80 2 puff inhalation BID LOOM TUNER D 05/09/21 Unknown History mcg-4.5 mcg/actuation aerosol [...] Clarity Clear, Urine pH 6.0, Ur Specific [place] 1.010, Urine Protein 100 H, Urine Glucose [...] 90.1 H, Lymph % (Auto) 6.3 L, Fleming % (Auto) 2.8, Eos % (Auto) 0.1, Baso % (Auto) 0.2, Absolute Neuts (auto) 11.4 H, Absolute Lymphs (auto) 0.80 L, Nucleated RBC % 0, PT 15.5 H, INR 1.2, APTT 22.7 L Imaging Radiology Impression Hip/Pelvis X-Ray 07/03/25 20:20 IMPRESSION: Fracture of the right greater trochanter, extending into the intertrochanteric line. Malignancy can not be excluded. Reading Location: [id number] Lower Extremity CT 07/03/25 21:54 IMPRESSION: Acute, moderately comminuted and impacted right intertrochanteric femoral fracture. No aggressive osseous lesions. Reading Location: [id number] Assessment & Plan Assessment/Plan (1) Closed intertrochanteric fracture of right hip: (2) Fall: PLAN: Plan The patient is a 75 y/o M w/ PMHx: CKD stage II per GFR trending, RLS, Cirrhosisassociated with hepatitis unclear specific type, Diabetes mellitus type II with chronic neuropathy, Anxiety and Depression, GERD, Hx CVA, Chronic anemia, Formertobacco use, COPD, [place] [facility] on 05/13/25 following largeright-sided lung cancer wit suspected postobstructive pneumonia with acute metabolic encephalopathy suspected secondary to hypercalcemia of malignancy in addition to acute on chronic anemia with suspected upper GI bleed for further evaluation who now presents to the [facility] ED on 07/03/2025 with onset of [...] [facility]: [facility], from [...] 16 minutes. Charges/Coding Visit Charges Inpatient E&M: 45904 Init Hosp L3 Procedures Hospitalists Procedures: 34490 Advncd Care Plan 30 Min 07/03/25 1281 <Electronically signed by Johanne Evans MD> Cosigner Signature (if applicable): CC: SID Haji; Dr. Johanne Evans MD~ Signed [facility] Work Phone: Hospital Discharge instructions Additional Instructions Your workup today indicates your dizziness is most likely from peripheral vertigo. Take the Valium as directed to help control any recurrent dizzy symptoms. Return to the ER should you have any further concerns. You may continue all of your other home medications as directed by your doctorWAdena [facility] Work Phone: Hospital Discharge instructions Additional Instructions Your CT head neck chest along right shoulder x-ray negative for any fracture or bleed. You have a known right lung mass. Follow-up with [place] oncology team through [place] for discussion if you want future treatment. If you do not want treatment discussed with them palliative versus hospice care to help with overall plans of care with you. Use tramadol as needed for pain control.[facility] Work Phone: Hospital Discharge instructionsAdditional Instructions [...] urinate then please come back to the ER.[facility] Work Phone: Hospital Discharge instructionsAdditional Instructions [...] please return to the ER for repeat evaluation.[facility] Work Phone: Reason for referral (narrative)No reason for referral information availableWAdena Pike [facility] Work Phone: Summary Purpose Family History No Family History Records Found Relationship Condition Age at Onset Recorded Date/T jennifer mother Cerebrovascular accident (CVA) Unknown Advance Directives No Advanced Directives Records Found Advance Directive Response Recorded Date/ Time Do you have a Healthcare Power of Source Water Protection Specialist? No April 23, 2025 9:07pm Advance Directive Response Recorded Date/ Time Do you have a Healthcare Power of Source Water Protection Specialist? No May 04, 2025 11:25am Do you have a Healthcare Power of Source Water Protection Specialist? No April 23, 2025 9:07pm Advance Directive Response Recorded Date/ Time Do you have a Healthcare Power of Source Water Protection Specialist? No May 04, 2025 11:25am Do you have a Healthcare Power of Source Water Protection Specialist? No May 11, 2025 2:29pm Do you have a Healthcare Power of Source Water Protection Specialist? No April 23, 2025 9:07pm Advance Directive Response Recorded Date/ Time Do you have a Healthcare Power of Source Water Protection Specialist? No May 04, 2025 11:25am Do you have a Healthcare Power of Source Water Protection Specialist? No May 11, 2025 8:16pm Do you have a Healthcare Power of Source Water Protection Specialist? No April 23, 2025 9:07pm Advance Directive Response Recorded Date/ Time Do you have a Healthcare Power of Source Water Protection Specialist? No May 04, 2025 11:25am Do you have a Healthcare Power of Source Water Protection Specialist? No May 11, 2025 8:16pm Do you have a Healthcare Power of Source Water Protection Specialist? No April 23, 2025 9:07pm Do you have a Healthcare Power of Source Water Protection Specialist? No July 03, 2025 7:10pm Advance Directive Response Recorded Date/ Time Do you have a Healthcare Power of Source Water Protection Specialist? No May 04, 2025 11:25am Do you have a Healthcare Power of Source Water Protection Specialist? No May 11, 2025 8:16pm Do you have a Healthcare Power of Source Water Protection Specialist? No April 23, 2025 9:07pm Do you have a Healthcare Power of Source Water Protection Specialist? Yes July 04, 2025 12:20am Advance Directive Response Recorded Date/ Time Do you have a Healthcare Power of Source Water Protection Specialist? No May 04, 2025 11:25am Do you have a Healthcare Power of Source Water Protection Specialist? No May 11, 2025 8:16pm Do you have a Healthcare Power of Source Water Protection Specialist? No April 23, 2025 9:07pm Do you have a Healthcare Power of Source Water Protection Specialist? Yes July 04, 2025 12:20am Do you have a Healthcare Power of Source Water Protection Specialist? Yes July 08, 2025 10:58am Advance Directive Response Recorded Date/ Time Do you have a Healthcare Power of Source Water Protection Specialist? No May 04, 2025 11:25am Do you have a Healthcare Power of Source Water Protection Specialist? No May 11, 2025 8:16pm Do you have a Healthcare Power of Source Water Protection Specialist? No April 23, 2025 9:07pm Do you have a Healthcare Power of Source Water Protection Specialist? Yes July 04, 2025 12:20am Do you have a Healthcare Power of Source Water Protection Specialist? Yes July 08, 2025 10:58am Do you have a Healthcare Power of Source Water Protection Specialist? No August 06, 2025 12:47am Chief Complaint [...] section and content) DATE CREATED AUTHOR 05/10/2021 [facility] DATE CREATED AUTHOR AUTHOR'S OUMOU ATGERHARD 08/10/2025 [facility] Care Teams (unrecognized sec tion and content) Team Status: Active Member Role Status Dates Carlene Haji TRAUMA COUNSELLOR-C Primary Care Provider Active Team Status: Inactive Member Role Status Dates Dr. Steven Tejeda DO Emergency Provider Active Start: April 23, 2025 End: April 24, 2025 Carlene Haji TRAUMA COUNSELLOR-C Primary Care Provider Active Start: April 23, 2025 End: April 24, 2025 Team Status: Inactive Member Role Status Dates Dr. Steven Tejeda DO Attending Provider Active Start: April 23, 2025 End: April 24, 2025 Dr. Steven Tejeda DO Emergency Provider Active Start: April 23, 2025 End: April 24, 2025 Carlene Haji TRAUMA COUNSELLOR-C Primary Care Provider Active Start: April 23, 2025 End: April 24, 2025 Team Status: Inactive Member Role Status Dates Carlene Haji TRAUMA COUNSELLOR-C Primary Care Provider Active Start: May 04, 2025 End: May 04, 2025 Dr. Ike Dawson DO Emergency Provider Active Start : May 04, 2025 End: May 04, 2025 Team Status: Inactive Member Role Status Dates Carlene Haji TRAUMA COUNSELLOR-C Primary Care Provider Active Start: May 04, 2025 End: May 04, 2025 Dr. Ike Dawson DO Attending Provider Active Start : May 04, 2025 End: May 04, 2025 Dr. Ike Dawson DO Emergency Provider Active Start : May 04, 2025 End: May 04, 2025 Team Status: Active Member Role Status Dates Carlene Haji TRAUMA COUNSELLOR-C Primary Care Provider Active Start: May 11, 2025 Dr. Monty Clarke MD Emergency Provider Active Sta rt: May 11, 20[address] Stanley DO Admit Provider Active Start: May 11, [address] Stanley DO Attending Provider Active Start: May 11, 2025 Team Status: Inactive Member Role Status Dates Carlene N Adithya , TRAUMA COUNSELLOR-C Primary Care Provider Active Start: May 11, [...] Member Role Status Dates Carlene Haji , TRAUMA COUNSELLOR-C Primary Care Provider Active Start: May 12, [...] Member Role Status Dates Carlene Haji , TRAUMA COUNSELLOR-C Primary Care Provider Active Start: May 13, [...] Member Role/Relationship Status Dates Carlene Haji , TRAUMA COUNSELLOR-C Primary Care Provider Active Team Status: Inactive Member Role/Relationship Status Dates Dr. Steven Tejeda DO Attending Provider Active Start: April 23, 2025 End: April 24, 2025 Dr. Steven Tejeda DO Emergency Provider Active Start: April 23, 2025 End: April 24, 2025 Carlene Haji , TRAUMA COUNSELLOR-C Primary Care Provider Active Start: April 23, 2025 End: April 24, 2025 Team Status: Inactive Member Role/Relationship Status Dates Carlene Haji , TRAUMA COUNSELLOR-C Primary Care Provider Active Start: May 04, 2025 End: May 04, 2025 Dr. Ike Dawson DO Attending Provider Active Start : May 04, 2025 End: May 04, 2025 Dr. Ike Dawson DO Emergency Provider Active Start : May 04, 2025 End: May 04, 2025 Team Status: Inactive Member Role/Relationship Status Dates Carlene Haji , TRAUMA COUNSELLOR-C Primary Care Provider Active Start: May 11, [...] Member Role/Relationship Status Dates Carlene Haji , TRAUMA COUNSELLOR-C Primary Care Provider Active Start: May 12, [...] Member Role/Relationship Status Dates Carlene Haji , TRAUMA COUNSELLOR-C Primary Care Provider Active Start: May 13, [...] Member Role/Relationship Status Dates Carlene Haji , TRAUMA COUNSELLOR-C Primary Care Provider Active Start: July 03, 2025 Dr. Steven Tejeda DO Emergency Provider Active Start: July 03, 2025 Dr. Johanne Evans MD Admit Provider Active St art: July 03, 2025 Dr. Johanne Evans MD Attending Provider Active Start: July 03, 2025 Dr. Johanne Evans MD Other Provider Active St art: July 03, 2025 Team Status: Inactive Member Role/Relationship Status Dates Carlene Haji TRAUMA COUNSELLOR-C Primary Care Provider Active Start: July 03, [...] Active Member Role/Relationship Status Dates Carlene Haji TRAUMA COUNSELLOR-C Primary Care Provider Active Start: July 04, [...] Member Role/Relationship Status Dates Carlene Haji , TRAUMA COUNSELLOR-C Primary Care Provider Active Start: July 05, 2025 Dr. Steven Tejeda DO Emergency Provider Active Start: July 05, 2025 Dr. Johanne Evasn MD Admit Provider Active St art: July [...] Active Member Role/Relationship Status Dates Carlene Haji TRAUMA COUNSELLOR-C Primary Care Provider Active Start: July 06, 2025 Dr. Steven Tejead DO Emergency Provider Active Start: July 06, [...] Active Member Role/Relationship Status Dates Carlene Haji TRAUMA COUNSELLOR-C Primary Care Provider Active Start: July 07, [...] Status: Inactive Member Role/Relationship Status Dates Carlene Haij TRAUMA COUNSELLOR-C Primary Care Provider Active Start: July 08, [...] BE BASED ON THE PRIMARY CLINICAL RECORDS. [employer] [facility]. provides no warranty or guarantee of the accuracy or completeness of information in this document.
[2025-08-16 01:05] LABS: Reflex Lactate? Y
[2025-08-16] MEDS: 0.9% Normal Saline (1000mL) 1,000 ML 100 ML IV (02:04)
--- NOTE | 2025-08-16 02:36 | PCM.RX.CS ---
Consult Antibiotic Management Pharmacy has been consulted to manage selected antibiotic: Vancomycin Type of Intervention Type of Consult: New start Labs Labs: Sodium 136 mmol/L (133-145) 08/15/25 20:49 Potassium 4.7 mmol/L (3.3-5.1) 08/15/25 20:49 Chloride 101 mmol/L (98-108) 08/15/25 20:49 Carbon Dioxide 24.6 mmol/L (21.0-32.0) 08/15/25 20:49 Anion Gap 11 (5-15) 08/15/25 20:49 BUN 17 mg/dL (4-19) 08/15/25 20:49 Creatinine 0.91 mg/dL (0.70-1.20) 08/15/25 20:49 Est GFR (MDRD) Non-Af 87 (>60) 08/15/25 20:49 BUN/Creatinine Ratio 18.4 RATIO (10-20) 08/15/25 20:49 Glucose 165 mg/dL (70-99) H 08/15/25 20:49 Dosing Weight Weight used for dosin.1 kg Estimated Creatinine Clearance Estimated Creatinine Clearance: 60.29 Goal Trough Goal Trough: 15-20 mcg/mL Pharmacy Plan for Drug Dosing Pharmacy Plan for Drug Dosing: Pharmacy Service will continue to monitor and adjust dosing as required. 1500MG GIVEN IN ER 08/16 @ 0674. START 1GM Q12H AND DRAW TROUGH PRIOR TO 4TH DOSE Follow-Up Labs Follow-Up Labs: Trough: Vancomycin Date/Time Labs Ordered Labs to be done on [date and time ordered]: 08/17 @ 6304
[2025-08-16] MEDS: Na Biphos/Potassium Phosphate PACKET 1 PACKET PO ×4 (03:17→23:23)
[2025-08-16 04:52] LABS: Hematocrit 27.5 % (40-54); Hemoglobin 8.2 g/dL (13.0-16.5); Immature Granulocytes Count 0.040 X10^3/uL (0.0-0.0); Mean Corp Hgb Conc 29.8 g/dL (32-36); Mean Corpuscular Volume 70.9 fL (80-94); Mean Platelet Vol. 9.5 fl (6.2-12.0); NRBC Flagged by Analyzer 0 % (0-5); POSITIVE MORPHOLOGY YES; Platelet Count 342 K/mm3 (150-450); RBC Distribution Width CV 20.3 % (11.6-14.6); RBC Distribution Width SD 51.9 fl (35.1-43.9); Red Blood Count 3.88 M/mm3 (4.6-6.2); White Blood Count 9.1 K/mm3 (4.4-11.0)
[2025-08-16 04:55] LABS: Differential Indicated SCAN CRITERIA MET
[2025-08-16 05:21] LABS: AST(SGOT) 19 U/L (<=37); Alanine Aminotransfer ALT/SGPT 11 U/L (<=46); Albumin, Serum 3.0 g/dL (3.4-4.8); Alkaline Phosphatase 140 U/L (40-129); Anion Gap 11 (5-15); BUN 15 mg/dL (4-19); BUN/Creat Ratio 18.7 RATIO (10-20); Calcium,Total 9.0 mg/dL (7.6-11.0); Carbon Dioxide 22.6 mmol/L (21.0-32.0); Chloride 103 mmol/L (98-108); Estimated Creatinine Clearance 72.85 ml/min (50-250); Globulin 4.4 g/dL (2.2-4.2); Glucose 157 mg/dL (70-99); Potassium 3.8 mmol/L (3.3-5.1)
[2025-08-16 05:24] LABS: Anisocytosis 2+; Differential Comment SCANNED
[2025-08-16 05:25] LABS: Acanthocytes RARE; Hypochromasia 1+; Microcytosis 1+
[2025-08-16] MEDS: Piperacil/Tazobactam 3.375 GM in 0.9% Normal Saline (50mL MB+) 50 ML IV ×3 (06:26→23:18)
[2025-08-16] MEDS: prednisoLONE eye drops (5 mL) 1 DROP OPTH.BTL 1 DRP LEFT EYE ×3 (06:27→17:20)
[2025-08-16] MEDS: Budesonide Respules 0.5 MG/2 ML AMPUL.NEB. INHALATION (07:10)
[2025-08-16] MEDS: Senna/Docusate Sodium 1 Tablet 2 TABLET PO (08:53)
[2025-08-16] MEDS: Glycerin/Hypromellose/PEG400 15 ml Bottle 1 DRP EACH EYE ×4 (08:57→23:26)
[2025-08-16] MEDS: Polyethylene Glycol 3350 17 GM PACKET PO (08:58)
[2025-08-16] MEDS: APIXABAN 2.5 MG TABLET (WCH) PO ×2 (08:59→23:28)
[2025-08-16] MEDS: Nicotine (PBKC) 14 MG Patch TD (08:59)
[2025-08-16] MEDS: Glucerna Shake 120 ML LIQUID PO ×3 (09:08→17:20)
[2025-08-16] MEDS: Lidocaine 5% Patch 2 PATCH TOPICAL (09:08)
--- NOTE | 2025-08-16 10:02 | CASEMGMT ---
Social Work SW spoke with the patient. Patient reported he does not want to go back to [facility]. TYLER Guzman
--- NOTE | 2025-08-16 10:16 | CASEMGMT ---
Social Work SW called the ID and left a message for VICKI Jimenez at [phone]. TYLER Guzman
--- NOTE | 2025-08-16 10:20 | CASEMGMT ---
Discharge Planning A list of?SNF providers including quality and resource use data and consistent with the patient's preferred geographic region, medical needs, and insurance network was created in [employer].? This list was provided to the SW. Annie Fuentes Discharge Planning Asst.
[2025-08-16] MEDS: Vancomycin HCl 1,000 MG in 0.9% Normal Saline (250mL Bag) 250 ML 250 MG IV (12:09)
--- NOTE | 2025-08-16 13:14 | CASEMGMT ---
Social Work Pt's RN informed SW that pt's daughter is here and asking to speak w/SW. SW met w w/pt and stepdaughter Marilynn. SW explained we will actually follow up w/pt's daughter in [place] regarding discharge plan. SW spoke w/pt about other SNF options, pt now saying he wants to return to his apartment to see what is going on there. SW explained let's see how he is doing w/therapy before making any decisions. VICKI Burgos will follow up w/daughter in [place]. NANDINI Darnell
--- NOTE | 2025-08-16 14:03 | CASEMGMT ---
Social Work SW called the daughter Daphne. VICKI spoke with the daughter about her father wanting to be moved to a different facility. The daughter reported she does not know why her father wants to be moved. SW discussed the facility options with the daughter and emailed her a copy. The daughter asked that referrals be sent to [facility]. TYLER Guzman
--- NOTE | 2025-08-16 14:52 | CASEMGMT ---
Addendum entered by Annie Fuentes 08/16/25 16:19: [facility] has accepted. SW's updated. Annie Fuentes DC Planning Asst. Addendum entered by Annie Fuentes 08/16/25 15:56: [facility] has accepted. Original Note: Discharge Planning Referral sent to [facility]. Annie Fuentes DC Planning Asst.
--- NOTE | 2025-08-16 15:35 | CASEMGMT ---
Social Work SW spoke with the patient and the patient wants to go [facility] for rehab. TYLER Guzman
--- NOTE | 2025-08-16 15:56 | CASEMGMT ---
Addendum entered by Annie Fuentes 08/16/25 16:17: [facility] has accepted. 's updated. Annie Fuentes DC Planning Asst. Original Note: Discharge Planning Referral sent to [facility]. Annie Fuentes DC Planning Asst.
--- NOTE | 2025-08-16 18:27 | PCM.PN.HOSP ---
Subjective Subjective No issues overnight, sleepy Objective Data Objective Data Vital Signs: Vital Signs Temp Pulse Resp BP Pulse Ox O2 Del Method 97.9 F 103 H 18 118/72 98 Room Air 08/16/25 15:12 08/16/25 15:12 08/16/25 15:12 08/16/25 15:12 08/16/25 15:12 08/16/25 15:12 Oxygen Delivery Method Room Air Weight: 152 lb 5.431 oz Body Mass Index (BMI) 20.0 Intake & Output: Intake and Output for Last 24 Hours 08/15/25 08/16/25 08/17/25 03:59 03:59 03:59 Intake Total 580 / 580 2048.25 / 2048.25 Output Total 1100 / 1100 Balance 580 / 580 948.25 / 948.25 Lab / Micro Data 08/17/25 05:17 08/17/25 05:17 Labs: Laboratory Results - last 24 hr 08/15/25 20:49: WBC 10.2, RBC 4.05 L, Hgb 8.6 L, Hct 28.6 L, MCV 70.6 L, MCH 21.2 L, MCHC 30.1 L, RDW Std Deviation 51.3 H, RDW Coeff of Tiffany 20.2 H, Plt Count 346, MPV 9.2, Immature Gran % (Auto) 0.400, Neut % (Auto) 81.3 H, Lymph % (Auto) 12.8 L, [place] % (Auto) 4.8, Eos % (Auto) 0.6, Baso % (Auto) 0.1, Absolute Neuts (auto) 8.3 H, Absolute Lymphs (auto) 1.31, Nucleated RBC % 0, Differential Comment SCANNED, Anisocytosis 2+, Microcytosis 1+, PT 16.2 H, INR 1.3, APTT 33.3, Sodium 136, Potassium 4.7, Chloride 101, Carbon Dioxide 24.6, Anion Gap 11, BUN 17, Creatinine 0.91, Estim Creat Clear Calc 60.29, Est GFR (MDRD) Non-Af 87, BUN/Creatinine Ratio 18.4, Glucose 165 H, Lactic Acid 2.3 H*, Calcium 9.8, Phosphorus 2.5 L, Magnesium 1.7, Total Bilirubin 0.31, AST 21, ALT 12, Alkaline Phosphatase 161 H, Total Protein 8.4, Albumin 3.3 L, Globulin 5.1 H, Albumin/Globulin Ratio 0.6 L 08/15/25 22:30: Urine Color Yellow, Urine Clarity Clear, Urine pH 6.5, Ur Specific [place] 1.010, Urine Protein 30 H, Urine Glucose (UA) Normal, Urine Ketones Negative, Urine Occult Blood 10 H, Urine Nitrite Negative, Urine Bilirubin Negative, Urine Urobilinogen Normal, Ur Leukocyte Esterase Negative, Urine RBC 0-5 SEEN, Urine WBC 0-5 SEEN, Ur Squamous Epith Cells 0-5 SEEN, Urine Bacteria RARE, Urine Mucus 0 SEEN 08/16/25 04:44: WBC 9.1, RBC 3.88 L, Hgb 8.2 L, Hct 27.5 L, MCV 70.9 L, MCH 21.1 L, MCHC 29.8 L, RDW Std Deviation 51.9 H, RDW Coeff of Tiffany 20.3 H, Plt Count 342, MPV 9.5, Immature Gran % (Auto) 0.400, Neut % (Auto) 66.7, Lymph % (Auto) 22.4, Moore % (Auto) 8.8, Eos % (Auto) 1.5, Baso % (Auto) 0.2, Absolute Neuts (auto) 6.0, Absolute Lymphs (auto) 2.03, Nucleated RBC % 0, Differential Comment SCANNED, Platelet Estimate ADEQUATE, Hypochromasia 1+, Anisocytosis 2+, Microcytosis 1+, Ovalocytes 1+, Acanthocytes (Spur) RARE, Sodium 137, Potassium 3.8, Chloride 103, Carbon Dioxide 22.6, Anion Gap 11, BUN 15, Creatinine 0.83, Estim Creat Clear Calc 72.85, Est GFR (MDRD) Non-Af 90, BUN/Creatinine Ratio 18.7, Glucose 157 H, Lactic Acid 1.8, Calcium 9.0, Total Bilirubin 0.23, AST 19, ALT 11, Alkaline Phosphatase 140 H, Total Protein 7.4, Albumin 3.0 L, Globulin 4.4 H, Albumin/Globulin Ratio 0.7 L 08/16/25 06:33: POC Glucose 153 H 08/16/25 10:58: POC Glucose 161 H 08/16/25 17:18: POC Glucose 97 Micro: Microbiology 08/16/25 06:00 Mucosa - Nose Respiratory Panel (PCR) - Final 08/15/25 22:30 Urine Catheter - Epperson Legionella Antigen - Final 08/15/25 22:30 Urine Catheter - Epperson Streptococcus pneumoniae Antigen (M - Final Radiography Diagnostic Testing: Radiology Impression Chest X-Ray 08/15/25 20:38 IMPRESSION: Right perihilar mass and opacification slightly improved from the prior study. - Findings and recommendations discussed above. Reading Location: [facility] Physical Exam Narrative General: Alert, Oriented x3, Cooperative, No apparent distress HEENT: Atraumatic, PERRLA, EOMI, Normocephalic Oral: Moist Mucosa Neck: Supple, No JVD Lungs: Diminished, Normal air movement, No rhonchi, No wheeze, No rales Cardiovascular: Regular rate, Regular Rhythm, Normal S1, Normal S2, No murmurs Abdomen: Soft, Non Tender, Non-Distended, No Hepato-splenomegaly Extremities: No edema, Capillary Refill Less than 3 Seconds Skin: No rashes, No breakdown Musculoskeletal: No Tenderness to Palpation of Joints or Extremities Neurological: No focal neurological deficits, moves all extremities Psych/Mental Status: Normal Affect, Appropriate Assessment & Plan Assessment/Plan (1) SIRS (systemic inflammatory response syndrome): PLAN: Plan 1. Acute metabolic encephalopathy secondary to possible postobstructive pneumonia in the setting of right-sided lung cancer ? Cultures are pending ? Continue with antibiotics ? It does appear that his altered mental status has improved since admission as he is A and O x 3 today ? He has had previous hypercalcemia of malignancy and [facility] 2. History of CVA/essential HTN/HLD ? Continue with his home medications ? Will monitor make adjustments as necessary ? Continue with statin ? 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 DM2 with neuropathy ? Sliding scale insulin ? Accu-Cheks ? Monitor make adjustments as necessary 4. Cirrhosis ? This is associated with hepatitis ? [facility] 5. GERD with recent GI bleed and chronic anemia ? Anemia appears to be at baseline ? Continue with PPI ? Stable 6. Severe protein calorie malnutrition: BMI reduced, obvious muscle and fat loss, significant underlying morbidities including active cancer on chemotherapy, mag and Phos requested, nutrition consulted for recommendations. DVT: Eliquis Charges/Coding Visit Charges Inpatient E&M: 03840 Subs Hosp L2
[2025-08-16] MEDS: Insulin Glargine-YFGN 100 UNIT/ML Pen 10 UNIT SC (23:22)
[2025-08-16] MEDS: MELATONIN 3 MG TABLET PO (23:24)
[2025-08-16] MEDS: Cyclopentolate 1% 2 ML Bottle 1 DRP LEFT EYE (23:26)
[2025-08-17] VITALS (10 sets, daily range): BP systolic 126–148; BP diastolic 74–84; PULSE 97–118; RESP 14–17; TEMP 36.8–37; O2SAT 91–100; BMI 18.3
[2025-08-17] MEDS: prednisoLONE eye drops (5 mL) 1 DROP OPTH.BTL 1 DRP LEFT EYE ×4 (00:51→18:45)
[2025-08-17] MEDS: Vancomycin HCl 1,000 MG in 0.9% Normal Saline (250mL Bag) 250 ML 250 MG IV (00:52)
[2025-08-17] MEDS: Piperacil/Tazobactam 3.375 GM in 0.9% Normal Saline (50mL MB+) 50 ML IV ×3 (05:21→22:10)
[2025-08-17] MEDS: Na Biphos/Potassium Phosphate PACKET 1 PACKET PO ×3 (05:24→22:28)
[2025-08-17 05:50] LABS: Hematocrit 25.7 % (40-54); Hemoglobin 7.7 g/dL (13.0-16.5); Immature Granulocytes Count 0.040 X10^3/uL (0.0-0.0); Mean Corp Hgb Conc 30.0 g/dL (32-36); Mean Corpuscular Volume 70.2 fL (80-94); Mean Platelet Vol. 9.3 fl (6.2-12.0); NRBC Flagged by Analyzer 0 % (0-5); Platelet Count 315 K/mm3 (150-450); RBC Distribution Width CV 20.0 % (11.6-14.6); RBC Distribution Width SD 50.7 fl (35.1-43.9); Red Blood Count 3.66 M/mm3 (4.6-6.2); White Blood Count 9.9 K/mm3 (4.4-11.0)
[2025-08-17 06:26] LABS: Anion Gap 11 (5-15); BUN 12 mg/dL (4-19); BUN/Creat Ratio 15.4 RATIO (10-20); Calcium,Total 8.7 mg/dL (7.6-11.0); Carbon Dioxide 20.9 mmol/L (21.0-32.0); Chloride 107 mmol/L (98-108); Estimated Creatinine Clearance 75.58 ml/min (50-250); Glucose 130 mg/dL (70-99); Potassium 3.7 mmol/L (3.3-5.1)
[2025-08-17] MEDS: Budesonide Respules 0.5 MG/2 ML AMPUL.NEB. INHALATION ×2 (06:51→19:50)
[2025-08-17] MEDS: APIXABAN 2.5 MG TABLET (WCH) PO ×2 (08:58→22:27)
[2025-08-17] MEDS: Polyethylene Glycol 3350 17 GM PACKET PO (08:58)
[2025-08-17] MEDS: Nicotine (PBKC) 14 MG Patch TD (08:58)
[2025-08-17] MEDS: Senna/Docusate Sodium 1 Tablet 2 TABLET PO (08:59)
[2025-08-17] MEDS: Glucerna Shake 120 ML LIQUID PO ×2 (09:02→16:55)
--- NOTE | 2025-08-17 09:51 | CASEMGMT ---
Social Work SW spoke with the patient. Patient was alert and oriented. Patient reported he wants to go to [facility] at discharge. Patient reported he told his daughter he wants to go to [facility] and not the places she chose. He told SW that SW does not need to call the daughter. SW informed the patient SW will work on setting up his discharge. SW asked about POA and the patient reported he does not have the addresses. SW provided the patient a blank POA/LW paperwork and advanced care planning booklet. TYLER Guzman
--- NOTE | 2025-08-17 09:56 | CASEMGMT ---
Addendum entered by Annie Fuentes 08/17/25 10:19: Passr w/results rec'd from [employer] but not 7000. This sql report writer was able to pull 7000 from [employer]. Complete Passr records sent to [facility]. Annie Fuentes DC Planning Asst. Original Note: Discharge Planning Note sent to [facility] via [employer] requesting copy of 7000 and/or passr (with results pg). Annie Fuentes DC Planning Asst.
--- NOTE | 2025-08-17 10:12 | CASEMGMT ---
Discharge Planning Per , [facility] is foc and was updated. Dayana and Lee asked to cancel referral. Annie Fuentes DC Planning Asst.
--- NOTE | 2025-08-17 10:35 | CASEMGMT ---
Social [facility] TYLER Guzman
[2025-08-17] MEDS: Vancomycin Trough/Random Due 1 LAB MC (11:36)
[2025-08-17] MEDS: Glycerin/Hypromellose/PEG400 15 ml Bottle 1 DRP EACH EYE ×3 (11:36→22:24)
[2025-08-17 12:24] LABS: Vancomycin, Trough Level 15.2 ug/mL (5.0-15.0)
--- NOTE | 2025-08-17 12:47 | CASEMGMT ---
Social Work Patient is experiencing confusion this afternoon. SW called daughter. The daughter reported her father did call her and told her he wants to go to [facility]. The daughter is concerned they are not a LTC placement. SW informed her [facility] can transfer him to a LTC facility. She reported he can go to [facility] and then a LTC facility if needed. The daughter reported she has noticed a lot of confusion. TYLER Guzman
--- NOTE | 2025-08-17 13:07 | PCM.RX.CS ---
Consult Antibiotic Management Pharmacy has been consulted to manage selected antibiotic: Vancomycin Type of Intervention Type of Consult: Follow-up Prior Doses of Antibiotics Prior Doses of Antibiotics Received/Current Regimen: current dose is 1000mg IV q12h Labs Labs: Sodium 139 mmol/L (133-145) 08/17/25 05:17 Potassium 3.7 mmol/L (3.3-5.1) 08/17/25 05:17 Chloride 107 mmol/L (98-108) 08/17/25 05:17 Carbon Dioxide 20.9 mmol/L (21.0-32.0) L 08/17/25 05:17 Anion Gap 11 (5-15) 08/17/25 05:17 BUN 12 mg/dL (4-19) 08/17/25 05:17 Creatinine 0.79 mg/dL (0.70-1.20) 08/17/25 05:17 Est GFR (MDRD) Non-Af 91 (>60) 08/17/25 05:17 BUN/Creatinine Ratio 15.4 RATIO (10-20) 08/17/25 05:17 Glucose 130 mg/dL (70-99) H 08/17/25 05:17 Vancomycin Trough 15.2 ug/mL (5.0-15.0) H 08/17/25 11:32 Microbiology Microbiology: Microbiology 08/16/25 06:00 Mucosa - Nose Respiratory Panel (PCR) - Final 08/15/25 22:30 Urine Catheter - Epperson Legionella Antigen - Final 08/15/25 22:30 Urine Catheter - Eppesron Streptococcus pneumoniae Antigen (M - Final Dosing Weight Weight used for dosin kg Estimated Creatinine Clearance Estimated Creatinine Clearance: 76 ml/min Goal Trough Goal Trough: 15-20 mcg/mL Pharmacy Plan for Drug Dosing Pharmacy Plan for Drug Dosing: VANCOMYCIN LEVEL RECEIVED Current Vancomycin Dose: 1000MG Q12H Number of Doses Received: 1500MG X1, 1000MG X2 Vancomycin Level: 15.2 MCG/ML Hours Since Last Dose: 10.5 HOURS Renal Function: SCR 0.79, CRCL 76 Renal Function Trend: SCR WAS 0.83 AND 0.91 THE PREVIOUS TWO DAYS Vancomycin Plan/Comments: TROUGH BARELY IN RANGE AT ONLY 10.5 HOURS. PROBABLY WOULD BE BELOW GOAL RANGE IF PREVIOUS DOSE NOT GIVEN LATE. WILL INCREASE DOSE SLIGHTLY TO 1250MG Q12H AND REPEAT TROUGH BEFORE 4TH DOSE. Pending Level: 08/19/25 00:30 Pharmacy Service will continue to monitor and adjust dosing as required. Follow-Up Labs Follow-Up Labs: Trough: Vancomycin Date/Time Labs Ordered Labs to be done on [date and time ordered]: 08/19/25 00:30
[2025-08-17] MEDS: Vancomycin HCl 1,250 MG in 0.9% Normal Saline (250mL Bag) 250 ML 167 MG IV (13:09)
--- NOTE | 2025-08-17 14:25 | PCM.PN.HOSP ---
Subjective Subjective Feels much better today. Objective Data Objective Data Vital Signs: Vital Signs Temp Pulse Resp BP Pulse Ox O2 Del Method 98.3 F 111 H 14 136/81 H 91 Room Air 08/17/25 08:53 08/17/25 08:53 08/17/25 08:53 08/17/25 08:53 08/17/25 08:53 08/17/25 09:39 Oxygen Delivery Method Room Air Weight: 138 lb 14.259 oz Body Mass Index (BMI) 18.3 Intake & Output: Intake and Output for Last 24 Hours 08/16/25 08/17/25 08/18/25 03:59 03:59 03:59 Intake Total 580 / 580 2368.25 / 2368.25 50 / 50 Output Total 2350 / 2350 900 / 900 Balance 580 / 580 18. / 18. -850 / -850 Lab / Micro Data 08/17/25 05:17 08/17/25 05:17 Labs: Laboratory Results - last 24 hr 08/16/25 17:18: POC Glucose 97 08/16/25 23:21: POC Glucose 255 H 08/17/25 05:17: WBC 9.9, RBC 3.66 L, Hgb 7.7 L, Hct 25.7 L, MCV 70.2 L, MCH 21.0 L, MCHC 30.0 L, RDW Std Deviation 50.7 H, RDW Coeff of Tiffany 20.0 H, Plt Count 315, MPV 9.3, Immature Gran % (Auto) 0.400, Neut % (Auto) 73.6 H, Lymph % (Auto) 17.4 L, [place] % (Auto) 7.0, Eos % (Auto) 1.4, Baso % (Auto) 0.2, Absolute Neuts (auto) 7.3, Absolute Lymphs (auto) 1.71, Nucleated RBC % 0, Sodium 139, Potassium 3.7, Chloride 107, Carbon Dioxide 20.9 L, Anion Gap 11, BUN 12, Creatinine 0.79, Estim Creat Clear Calc 75.58, Est GFR (MDRD) Non-Af 91, BUN/Creatinine Ratio 15.4, Glucose 130 H, Calcium 8.7 08/17/25 06:16: POC Glucose 123 H 08/17/25 11:32: Vancomycin Trough 15.2 H 08/17/25 11:33: POC Glucose 223 H Micro: Microbiology 08/16/25 06:00 Mucosa - Nose Respiratory Panel (PCR) - Final 08/15/25 22:30 Urine Catheter - Epperson Legionella Antigen - Final 08/15/25 22:30 Urine Catheter - Epperson Streptococcus pneumoniae Antigen (M - Final Physical Exam Narrative General: Alert, Oriented x3, Cooperative, No apparent distress HEENT: Atraumatic, PERRLA, EOMI, Normocephalic Oral: Moist Mucosa Neck: Supple, No JVD Lungs: Diminished, Normal air movement, No rhonchi, No wheeze, No rales Cardiovascular: Regular rate, Regular Rhythm, Normal S1, Normal S2, No murmurs Abdomen: Soft, Non Tender, Non-Distended, No Hepato-splenomegaly Extremities: No edema, Capillary Refill Less than 3 Seconds Skin: No rashes, No breakdown Musculoskeletal: No Tenderness to Palpation of Joints or Extremities Neurological: No focal neurological deficits, moves all extremities Psych/Mental Status: Normal Affect, Appropriate Assessment & Plan Assessment/Plan (1) SIRS (systemic inflammatory response syndrome): PLAN: Plan 1. Acute metabolic encephalopathy secondary to possible postobstructive pneumonia in the setting of right-sided lung cancer ? Cultures are still pending ? Continue with antibiotics ? Respiratory panel and Legionella and strep antigens are negative ? It does appear that his altered mental status has improved since admission as he is A and O x 3 today ? He has had previous hypercalcemia of malignancy and [facility] 2. History of CVA/essential HTN/HLD ? Continue with his home medications ? Will monitor make adjustments as necessary ? Continue with statin ? 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 DM2 with neuropathy ? Sliding scale insulin ? Accu-Cheks ? Monitor make adjustments as necessary 4. Cirrhosis ? This is associated with hepatitis ? [facility] 5. GERD with recent GI bleed and chronic anemia ? Anemia appears to be at baseline ? Continue with PPI ? Stable 6. Severe protein calorie malnutrition: BMI reduced, obvious muscle and fat loss, significant underlying morbidities including active cancer on chemotherapy, mag and Phos requested, nutrition consulted for recommendations. DVT: Eliquis Charges/Coding Visit Charges Inpatient E&M: 41084 Subs Hosp L2
[2025-08-17] MEDS: Insulin Glargine-YFGN 100 UNIT/ML Pen 10 UNIT SC (22:12)
[2025-08-17] MEDS: 0.9% Saline Lock 10 ML Syringe IV (22:24)
[2025-08-17] MEDS: Cyclopentolate 1% 2 ML Bottle 1 DRP LEFT EYE (22:25)
[2025-08-17] MEDS: MELATONIN 3 MG TABLET PO (22:27)
[2025-08-18] VITALS (8 sets, daily range): BP systolic 133–145; BP diastolic 75–95; PULSE 100–117; RESP 15–18; TEMP 36.2–36.9; O2SAT 93–99; BMI 18.5
[2025-08-18] MEDS: Lidocaine 5% Patch 2 PATCH TOPICAL (00:06)
[2025-08-18] MEDS: Vancomycin HCl 1,250 MG in 0.9% Normal Saline (250mL Bag) 250 ML 167 MG IV ×2 (00:07→13:09)
[2025-08-18] MEDS: prednisoLONE eye drops (5 mL) 1 DROP OPTH.BTL 1 DRP LEFT EYE ×4 (00:07→17:01)
[2025-08-18] MEDS: 0.9% Saline Lock 10 ML Syringe IV (05:25)
[2025-08-18] MEDS: Piperacil/Tazobactam 3.375 GM in 0.9% Normal Saline (50mL MB+) 50 ML IV ×3 (05:25→21:33)
[2025-08-18 05:51] LABS: Hematocrit 27.0 % (40-54); Hemoglobin 8.2 g/dL (13.0-16.5); Immature Granulocytes Count 0.030 X10^3/uL (0.0-0.0); Mean Corp Hgb Conc 30.4 g/dL (32-36); Mean Corpuscular Volume 70.5 fL (80-94); Mean Platelet Vol. 9.3 fl (6.2-12.0); NRBC Flagged by Analyzer 0 % (0-5); POSITIVE MORPHOLOGY YES; Platelet Count 324 K/mm3 (150-450); RBC Distribution Width CV 20.1 % (11.6-14.6); RBC Distribution Width SD 51.4 fl (35.1-43.9); Red Blood Count 3.83 M/mm3 (4.6-6.2); White Blood Count 9.9 K/mm3 (4.4-11.0)
[2025-08-18 06:15] LABS: Anion Gap 11 (5-15); BUN 16 mg/dL (4-19); BUN/Creat Ratio 15.7 RATIO (10-20); Calcium,Total 8.9 mg/dL (7.6-11.0); Carbon Dioxide 21.9 mmol/L (21.0-32.0); Chloride 106 mmol/L (98-108); Estimated Creatinine Clearance 54.20 ml/min (50-250); Glucose 156 mg/dL (70-99); Potassium 4.1 mmol/L (3.3-5.1)
[2025-08-18 06:41] LABS: Differential Indicated SCAN CRITERIA MET
[2025-08-18 06:45] LABS: Anisocytosis 1+
[2025-08-18] MEDS: Budesonide Respules 0.5 MG/2 ML AMPUL.NEB. INHALATION ×2 (07:20→20:08)
[2025-08-18] MEDS: Glycerin/Hypromellose/PEG400 15 ml Bottle 1 DRP EACH EYE ×4 (08:44→21:38)
[2025-08-18] MEDS: Senna/Docusate Sodium 1 Tablet 2 TABLET PO (08:44)
[2025-08-18] MEDS: Nicotine (PBKC) 14 MG Patch TD (08:44)
[2025-08-18] MEDS: Polyethylene Glycol 3350 17 GM PACKET PO (08:45)
[2025-08-18] MEDS: APIXABAN 2.5 MG TABLET (WCH) PO ×2 (08:45→21:40)
[2025-08-18] MEDS: Glucerna Shake 120 ML LIQUID PO ×3 (08:45→17:01)
--- NOTE | 2025-08-18 08:45 | CASEMGMT ---
Social Work SW called the [facility] SW and left a message this morning to get an update on the pre-cert. Documentation for the pre-cert was emailed in yesterday morning. SW also emailed the [facility] SW yesterday afternoon. TYLER Guzman
--- NOTE | 2025-08-18 10:07 | PN.HOSP_ITS ---
Subjective Subjective Doing well today, no issues overnight. All cultures so far negative Objective Data Objective Data Vital Signs: Vital Signs Temp Pulse Resp BP Pulse Ox O2 Del Method 97.1 F L 105 H 18 139/95 H 95 Room Air 08/18/25 08:41 08/18/25 08:41 08/18/25 08:41 08/18/25 08:41 08/18/25 08:41 08/18/25 09:42 Oxygen Delivery Method Room Air Weight: 140 lb 10.479 oz Body Mass Index (BMI) 18.5 Intake & Output: Intake and Output for Last 24 Hours 08/17/25 08/18/25 08/19/25 03:59 03:59 03:59 Intake Total 2368.25 / 2368.25 1700 / 1700 50 / 50 Output Total 2350 / 2350 1850 / 1850 300 / 300 Balance 18.25 / 18.25 -150 / -150 -250 / -250 Lab / Micro Data 08/18/25 05:42 08/18/25 05:42 Labs: Laboratory Results - last 24 hr 08/17/25 11:32: Vancomycin Trough 15.2 H 08/17/25 11:33: POC Glucose 223 H 08/17/25 16:53: POC Glucose 264 H 08/17/25 22:17: POC Glucose 218 H 08/18/25 05:42: WBC 9.9, RBC 3.83 L, Hgb 8.2 L, Hct 27.0 L, MCV 70.5 L, MCH 21.4 L, MCHC 30.4 L, RDW Std Deviation 51.4 H, RDW Coeff of Tiffany 20.1 H, Plt Count 324, MPV 9.3, Immature Gran % (Auto) 0.300, Neut % (Auto) 70.5 H, Lymph % (Auto) 20.1, [place] % (Auto) 7.1, Eos % (Auto) 1.8, Baso % (Auto) 0.2, Absolute Neuts (auto) 7.0, Absolute Lymphs (auto) 1.99, Nucleated RBC % 0, Anisocytosis 1+, Sodium 139, Potassium 4.1, Chloride 106, Carbon Dioxide 21.9, Anion Gap 11, BUN 16, Creatinine 1.03, Estim Creat Clear Calc 54.20, Est GFR (MDRD) Non-Af 75, BUN/Creatinine Ratio 15.7, Glucose 156 H, Calcium 8.9 08/18/25 06:12: POC Glucose 138 H Micro: Microbiology 08/15/25 22:30 Urine, Catheterized Urine Culture - Final Culture exhibits no growth. 08/15/25 21:36 Blood Culture (Wb) - Anticubital Left Blood Culture - Preliminary No growth in 48 hours. 08/15/25 20:49 Blood Culture (Wb) - Anticubital Left Blood Culture - Preliminary No growth in 48 hours. 08/16/25 06:00 Mucosa - Nose Respiratory Panel (PCR) - Final 08/15/25 22:30 Urine Catheter - Epperson Legionella Antigen - Final 08/15/25 22:30 Urine Catheter - Epperson Streptococcus pneumoniae Antigen (M - Final Physical Exam Narrative General: Alert, Oriented x3, Cooperative, No apparent distress HEENT: Atraumatic, PERRLA, EOMI, Normocephalic Oral: Moist Mucosa Neck: Supple, No JVD Lungs: Diminished, Normal air movement, No rhonchi, No wheeze, No rales Cardiovascular: Regular rate, Regular Rhythm, Normal S1, Normal S2, No murmurs Abdomen: Soft, Non Tender, Non-Distended, No Hepato-splenomegaly Extremities: No edema, Capillary Refill Less than 3 Seconds Skin: No rashes, No breakdown Musculoskeletal: No Tenderness to Palpation of Joints or Extremities Neurological: No focal neurological deficits, moves all extremities Psych/Mental Status: Normal Affect, Appropriate Assessment & Plan Assessment/Plan (1) SIRS (systemic inflammatory response syndrome): PLAN: Plan 1. Acute metabolic encephalopathy secondary to possible postobstructive pneumonia in the setting of right-sided lung cancer ? Cultures are negative for 48 hours ? Can likely be transition to oral antibiotics prior to discharge to cover for possible pneumonia ? Respiratory panel and Legionella and strep antigens are negative ? It does appear that his altered mental status has improved since admission as he is A and O x 3 today ? He has had previous hypercalcemia of malignancy and [facility] 2. History of CVA/essential HTN/HLD ? Continue with his home medications ? Will monitor make adjustments as necessary ? Continue with statin ? 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 DM2 with neuropathy ? Sliding scale insulin ? Accu-Cheks ? Monitor make adjustments as necessary 4. Cirrhosis ? This is associated with hepatitis ? [facility] 5. GERD with recent GI bleed and chronic anemia ? Anemia appears to be at baseline ? Continue with PPI ? Stable 6. Severe protein calorie malnutrition: BMI reduced, obvious muscle and fat loss, significant underlying morbidities including active cancer on chemotherapy, mag and Phos requested, nutrition consulted for recommendations. DVT: Eliquis Charges/Coding Visit Charges Inpatient E&M: 94432 Subs Hosp L2
--- NOTE | 2025-08-18 11:41 | CASEMGMT ---
Chip Mixer VICKI called [facility] again and left a message. VICKI also called ROBINSON Hicks and left a message. TYLER Guzman
--- NOTE | 2025-08-18 15:53 | CASEMGMT ---
Social Work [place] VICKI Hicks [phone] called VICKI back. VICKI Hicks reported she will need to put in a consult and she will message the pre-cert team. TYLER Guzman
--- NOTE | 2025-08-18 16:10 | CASEMGMT ---
Social Work [place] VICKI Hicks [phone] called VICKI back. VICKI informed her that [facility] accepted the patient. VICKI Hicks reported she will need to put in a consult for placement at [facility] and she will message the pre-cert team. VICKI Hicks reported she will contact [facility]. She reported she will let know once patient is approved. VICKI Hicks reported it usually takes 24 to 48 hours for approval. TYLER Guzman
[2025-08-18] MEDS: Insulin Glargine-YFGN 100 UNIT/ML Pen 10 UNIT SC (21:34)
[2025-08-18] MEDS: Cyclopentolate 1% 2 ML Bottle 1 DRP LEFT EYE (21:40)
[2025-08-18] MEDS: MELATONIN 3 MG TABLET PO (21:40)
[2025-08-19] VITALS (7 sets, daily range): BP systolic 124–143; BP diastolic 75–82; PULSE 100–112; RESP 16–18; TEMP 36.4–36.5; O2SAT 94–98; BMI 18.2
[2025-08-19 05:10] LABS: Vancomycin, Trough Level 25.0 ug/mL (5.0-15.0)
--- NOTE | 2025-08-19 05:20 | PCM.RX.CS ---
Consult Antibiotic Management Pharmacy has been consulted to manage selected antibiotic: Vancomycin Type of Intervention Type of Consult: Follow-up Labs Labs: Sodium 139 mmol/L (133-145) 08/18/25 05:42 Potassium 4.1 mmol/L (3.3-5.1) 08/18/25 05:42 Chloride 106 mmol/L (98-108) 08/18/25 05:42 Carbon Dioxide 21.9 mmol/L (21.0-32.0) 08/18/25 05:42 Anion Gap 11 (5-15) 08/18/25 05:42 BUN 16 mg/dL (4-19) 08/18/25 05:42 Creatinine 1.03 mg/dL (0.70-1.20) 08/18/25 05:42 Est GFR (MDRD) Non-Af 75 (>60) 08/18/25 05:42 BUN/Creatinine Ratio 15.7 RATIO (10-20) 08/18/25 05:42 Glucose 156 mg/dL (70-99) H 08/18/25 05:42 Vancomycin Trough 25.0 ug/mL (5.0-15.0) H 08/19/25 00:33 Microbiology Microbiology: Microbiology 08/15/25 22:30 Urine, Catheterized Urine Culture - Final Culture exhibits no growth. 08/15/25 21:36 Blood Culture (Wb) - Anticubital Left Blood Culture - Preliminary No growth in 48 hours. 08/15/25 20:49 Blood Culture (Wb) - Anticubital Left Blood Culture - Preliminary No growth in 48 hours. 08/16/25 06:00 Mucosa - Nose Respiratory Panel (PCR) - Final 08/15/25 22:30 Urine Catheter - Epperson Legionella Antigen - Final 08/15/25 22:30 Urine Catheter - Epperson Streptococcus pneumoniae Antigen (M - Final Dosing Weight Weight used for dosin.7 kg Estimated Creatinine Clearance Estimated Creatinine Clearance: 54 Goal Trough Goal Trough: 15-20 mcg/mL Pharmacy Plan for Drug Dosing Pharmacy Plan for Drug Dosing: Vancomycin trough level of 25, drawn 11.3hrs post-dose, was above the target range of 15-20. Will suspend current dosing, and will draw a random vanco level in 12 hours to determine further orders. Pharmacy Service will continue to monitor and adjust dosing as required. Follow-Up Labs Follow-Up Labs: Trough: Vancomycin (random) Date/Time Labs Ordered Labs to be done on [date and time ordered]: 08/19/25 @1230 (random)
[2025-08-19] MEDS: Piperacil/Tazobactam 3.375 GM in 0.9% Normal Saline (50mL MB+) 50 ML IV ×2 (06:17→13:29)
[2025-08-19] MEDS: prednisoLONE eye drops (5 mL) 1 DROP OPTH.BTL 1 DRP LEFT EYE ×2 (06:18→11:12)
[2025-08-19] MEDS: Budesonide Respules 0.5 MG/2 ML AMPUL.NEB. INHALATION (07:38)
[2025-08-19] MEDS: Glucerna Shake 120 ML LIQUID PO ×2 (08:54→11:14)
[2025-08-19] MEDS: Glycerin/Hypromellose/PEG400 15 ml Bottle 1 DRP EACH EYE ×2 (08:54→13:30)
[2025-08-19] MEDS: Senna/Docusate Sodium 1 Tablet 2 TABLET PO (08:55)
[2025-08-19] MEDS: Polyethylene Glycol 3350 17 GM PACKET PO (08:55)
[2025-08-19] MEDS: Nicotine (PBKC) 14 MG Patch TD (08:57)
[2025-08-19] MEDS: APIXABAN 2.5 MG TABLET (WCH) PO (08:57)
--- NOTE | 2025-08-19 12:48 | CASEMGMT ---
VICKI Hicks left VICKI a message stating the patient is approved to go to [facility] effective today. TYLER Guzman
[2025-08-19 13:12] LABS: Vancomycin, Random Level 16.3 ug/mL (0.0-15.0)
--- NOTE | 2025-08-19 13:13 | CASEMGMT ---
Social Work SW called the daughter and informed that the MD approved her father to go to [facility]. VICKI informed her that her father will DC to [facility] today. TYLER Guzman
[2025-08-19] MEDS: 0.9% Saline Lock 10 ML Syringe IV (13:29)
--- NOTE | 2025-08-19 13:34 | TREXTCAR_ITS ---
Diet Diet Order/Speech Therapy: INPATIENT Hospital Diet / Speech Therapy Order(s) 08/19/25 10:08 Diet: Regular - General Food consistency:: Regular Liquid Consistency:: Regular/Thin Type of Dietary Supplement:: Pako Diet Comments: pako BID with breakfast and dinner Routine Orders/Code Status Routine Lab Work: CBC and BMP Code Status: Full Code DC O2, CPAP, BIPAP needs Home O2 Discharge instructions: No Wound(s) coccyx: Wound Type: Pressure Injury Therapies Physical Therapy: Eval and Treat Occupational Therapy: Eval and Treat Problem/Diagnosis (1) SIRS (systemic inflammatory response syndrome): Status: Acute Code(s): R65.10 - Systemic inflammatory response syndrome (SIRS) of non-infectious origin without acute organ dysfunction Plan 1. Acute metabolic encephalopathy secondary to possible postobstructive pneumonia in the setting of right-sided lung cancer ? Cultures are negative for 48 hours ? Can likely be transition to oral antibiotics prior to discharge to cover for possible pneumonia ? Respiratory panel and Legionella and strep antigens are negative ? It does appear that his altered mental status has improved since admission as he is A and O x 3 today ? He has had previous hypercalcemia of malignancy and [facility] 2. History of CVA/essential HTN/HLD ? Continue with his home medications ? Will monitor make adjustments as necessary ? Continue with statin ? 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 DM2 with neuropathy ? Sliding scale insulin ? Accu-Cheks ? Monitor make adjustments as necessary 4. Cirrhosis ? This is associated with hepatitis ? [facility] 5. GERD with recent GI bleed and chronic anemia ? Anemia appears to be at baseline ? Continue with PPI ? Stable 6. Severe protein calorie malnutrition: BMI reduced, obvious muscle and fat loss, significant underlying morbidities including active cancer on chemotherapy, mag and Phos requested, nutrition consulted for recommendations. DVT: Eliquis Allergies/Procedures Done in Hospital Allergies No Known Allergies Allergy (Verified 08/15/25 20:18) Procedures: None Type of Care/Length of Stay Estimated LOS: Convalescent Care Less Than 30 days Type of Care Needed: Skilled Rehab Potential: Fair Prognosis: Fair Additional Orders/Day of Discharge Day of Discharge: 08/19/25 Dietary and Speech Recommendations Dietitian Recommendations/Changes: Adjust to liberal regular diet due to signs and symptoms of malnutrition. Continue pako BID with breakfast and dinner to promote wound healing. Will continue 120ml glucerna shake TID with medpass. When discharged: recommend pt follow a liberal regular diet. Discharge Plan Admission Admit Date/Time: 08/15/25 23:30 Attending Provider: Valdez Mishra Primary Care Provider: Hubert Hagen Consulting Providers: Johanne Evans Discharge Orders/Prescriptions Prescriptions: New levofloxacin 750 mg tablet 750 mg PO DAILY Qty: 3 0RF Continued gabapentin 300 MG capsule 300 mg PO TID cyclobenzaprine 10 mg Tablet 10 mg PO TID PRN (Reason: muscle spasms) amlodipine 5 mg Tablet 10 mg PO QHS budesonide-formoterol [Symbicort] 80-4.5 mcg/actuation Hfa Aerosol Inhaler 2 puff INHALATION BID aspirin 81 mg Tablet,Delayed Release (Dr/Ec) 81 mg PO DAILY sildenafil 100 mg Tablet 100 mg PO DAILY PRN (Reason: Erectile Dysfunction) atorvastatin 80 mg tablet 80 mg PO QHS Qty: 90 0RF insulin aspart U-100 [Novolog FlexPen U-100 Insulin] 100 unit/mL (3 mL) insulin pen 10 unit subcut TIDCM ropinirole 1 mg tablet 1 mg PO QHS insulin glargine [Lantus Solostar U-100 Insulin] 100 unit/mL (3 mL) insulin pen 10 unit subcut QPM Rx Instructions: PT STATES USES 10-15U QHS magnesium hydroxide [Gentle Laxative (mag hydrox)] 400 mg/5 mL suspension 5 ml PO DAILY PRN (Reason: constipation) omeprazole 20 mg capsule,delayed release(DR/EC) 20 mg PO DAILY sennosides-docusate sodium [Senna with Docusate Sodium] 8.6-50 mg tablet 2 tab-cap PO DAILY melatonin 3 mg tablet 3 mg PO QHS polyethylene glycol 3350 17 gram powder in packet 17 g PO DAILY ferrous sulfate [Feosol] 325 mg (65 mg iron) tablet 325 mg PO .every other day lidocaine 5 % adhesive patch,medicated 2 patch topical DAILY PRN (Reason: pain) Rx Instructions: leave on most painful area for up to 12 hrs cyclopentolate 2 % drops 1 drp LEFT EYE QHS calcium carbonate 500 mg calcium (1,250 mg) tablet 1,500 mg PO DAILY polyvinyl alcohol-povidone 1.4-0.6 % drops 1 drp ophthalmic (eye) 4X/DAY Rx Instructions: 1 drop each eye; prednisolone acetate 1 % drops,suspension 1 drp LEFT EYE Q6H tiotropium-olodaterol 2.5-2.5 mcg/actuation mist 2 puff inhalation DAILY nicotine [Nicoderm CQ] 14 mg/24 hr patch 24 hour 1 patch transdermal DAILY Rx Instructions: apply every morning and remove at HS albuterol 90 mcg/actuation aerosol 90 mcg inhalation Q4H PRN acetaminophen 500 mg Tablet 1,000 mg PO Q8 PRN (Reason: fever or pain) Rx Instructions: 1 g every 8 hourly for 1 week and then Q8 hourly as needed for severe pain Eliquis 5 mg Tablet 2.5 mg PO Q12H Rx Instructions: Start from 07/08/2025. Discontinue if platelet count drops less than 50,000 or hemoglobin less than 8 g% Referrals / Follow Up: Hubert Hagen MD [Primary Care Provider, Family Practice] Disposition Disposition (needs filled in before D/C Order can be placed): [facility]irement Facility
--- NOTE | 2025-08-19 13:37 | CASEMGMT ---
Social Work SW informed the patient that he was discharging to [facility] today at 300pm. VICKI also informed the [facility], nurse and physician. TYLER Guzman
--- NOTE | 2025-08-19 13:40 | CASEMGMT ---
Social Work SW called [facility] and spoke with charge nurse Karolyn and informed her the patient was returning to their facility. TYLER Guzman
--- NOTE | 2025-08-19 14:32 | CASEMGMT ---
Social Work Precert has been obtained from the [facility] for skilled rehab. Transportation arranged with [facility] for 300pm pickup via wheelchair van. TYLER Guzman
--- NOTE | 2025-08-19 14:44 | DS.PCM_ITS ---
Providers Date of Admission: 08/15/25 Primary Care Physician: Dr. Hubert Hagen MD Reason For Visit: SIRS, ? PNA Diagnosis Discharge Diagnosis (1) SIRS (systemic inflammatory response syndrome): Status: Acute Code(s): R65.10 - Systemic inflammatory response syndrome (SIRS) of non-infectious origin without acute organ dysfunction Medications at Discharge Home Medications gabapentin 300 mg capsule 300 mg PO TID neuropathy 02/24/15 amlodipine 5 mg tablet 10 mg PO QHS blood pressure 05/09/21 aspirin 81 mg tablet,delayed release 81 mg PO DAILY heart health 05/09/21 budesonide-formoterol HFA 80 mcg-4.5 mcg/actuation aerosol inhaler (Symbicort) 2 puff inhalation BID COPD 05/09/21 cyclobenzaprine 10 mg tablet 10 mg PO TID PRN muscle spasms 05/09/21 sildenafil 100 mg tablet 100 mg PO DAILY PRN Erectile Dysfunction 05/09/21 atorvastatin 80 mg tablet 80 mg PO QHS cholesterol #90 tabs 05/12/21 insulin aspart U-100 100 unit/mL (3 mL) subcutaneous pen (Novolog FlexPen U-100 Insulin aspart) 10 unit subcut TIDCM DM 12/12/24 insulin glargine 100 unit/mL (3 mL) subcutaneous pen (Lantus Solostar U-100 Insulin) 10 unit subcut QPM Dm 05/04/25 magnesium hydroxide 400 mg/5 mL oral suspension (Gentle Laxative (magnesium hydroxide)) 5 ml PO DAILY PRN constipation 05/04/25 ropinirole 1 mg tablet 1 mg PO QHS rls 05/04/25 albuterol 90 mcg/actuation aerosol inhaler 90 mcg inhalation Q4H PRN sob 07/04/25 calcium carbonate 1,500 mg PO DAILY supplement 07/04/25 cyclopentolate 2 % eye drops 1 drp LEFT EYE QHS inflamation 07/04/25 ferrous sulfate 325 mg (65 mg iron) tablet (Feosol) 325 mg PO .every other day supplement 07/04/25 lidocaine 5 % topical patch 2 patch topical DAILY PRN pain 07/04/25 melatonin 3 mg tablet 3 mg PO QHS sleep 07/04/25 nicotine 14 mg/24 hr daily transdermal patch (Nicoderm CQ) 1 patch transdermal DAILY smoking cessation 07/04/25 polyethylene glycol 3350 17 gram oral powder packet 17 g PO DAILY constipation 07/04/25 polyvinyl alcohol-povidone 1.4 %-0.6 % eye drops 1 drp ophthalmic (eye) 4X/DAY dry eye 07/04/25 prednisolone acetate 1 % eye drops,suspension 1 drp LEFT EYE Q6H inflamation 07/04/25 sennosides 8.6 mg-docusate sodium 50 mg tablet (Senna with Docusate Sodium) 2 tab-cap PO DAILY stool softener 07/04/25 tiotropium 2.5 mcg-olodaterol 2.5 mcg/actuation mist for inhalation 2 puff inhalation DAILY asthma 07/04/25 acetaminophen 500 mg tablet 1,000 mg PO Q8 PRN fever or pain 08/06/25 apixaban 5 mg tablet (Eliquis) 2.5 mg PO Q12H 08/06/25 omeprazole 20 mg capsule,delayed release 20 mg PO DAILY 08/15/25 levofloxacin 750 mg tablet 750 mg PO DAILY #3 tabs 08/19/25 Hospital Course Operations None Procedures None Summary of Care Provided Minutes Spent on Discharge: 32 Hospital Course: Per HPI: The patient is a 75 y/o M w/ PMHx: CKD stage II per GFR trending, RLS, 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, Diabetes mellitus type II with chronic neuropathy, Anxiety and Depression, GERD, Hx CVA, Chronic anemia/iron deficiency anemia, Tobacco tobacco use, COPD/asthma, recent transfer [facility] on 05/13/25 following large right-sided lung cancer wit suspected postobstructive pneumonia with acute metabolic encephalopathy suspected secondary to hypercalcemia of malignancy in addition to acute on chronic anemia with suspected upper GI bleed with then readmission 07/03/25 secondary to mechanical fall with right greater trochanter fracture extending into the intertrochanteric line undergoing 07/04/2025 ORIF of the right hip with a long gamma nail placement discharged 07/07/2025 now re-presenting to the [facility] ED on 08/15/2025 with onset of fever, cough, dyspnea as well as dysuria in addition to palpitations/racing heart and increased respiratory rate worsening over the last 12 hours prompting family to bring patient in for evaluation. Workup in the ED included T1-2 0.3, heart rate 137, BP 137/80, respiratory rate 25, 97% on room air with most recent repeat vitals T1 100.8 Kohr, heart rate 117, BP 111/81, respiratory rate 22, 97% on room air, CBC with WC 10.2, hemoglobin 8.6, MCV 70.6, platelets 346 with left shift, coags unremarkable aside PT 16.2, CMP with BUN/creatinine 17/0.91, GFR 87, glucose 165, hepatic profile with alk phos 161 otherwise not marked appearing, lactic acid 2.3, urinalysis not marked appearing, chest x-ray with a right perihilar mass and opacification slightly improved from previous study. In the ED patient ministered Tylenol 650 mg p.o. x 1, vancomycin, Rocephin 2 g IV x 1 as well as judicious maintenance IV fluids. Hospital Course: 1. Acute metabolic encephalopathy secondary to postobstructive pneumonia in setting of a right sided lung cancer?75-year-old male presented to the hospital from SNF with an acute metabolic encephalopathy. He was started on broad- spectrum antibiotics however urine culture and blood cultures were negative therefore he was transition to Levaquin on discharge p.o. 750 mg daily for 3 more days to cover for his postobstructive pneumonia. His encephalopathy resolved prior to discharge and I discussed with him the plan for discharge today he expressed understanding of the risks and benefits of going to the care home and would like to go today. [facility] 2. Type 2 diabetes with neuropathy, history of CVA, essential hypertension, hyperlipidemia, cirrhosis, GERD with history of GI bleeding chronic iron deficiency anemia are all chronic medical conditions which complicate his care. His home medications were continued where appropriate. He may benefit from iron infusions as an outpatient going forward since he is only taking his iron supplementation every other day Physical Exam Narrative General: Alert, Oriented x3, Cooperative, No apparent distress HEENT: Atraumatic, PERRLA, EOMI, Normocephalic Oral: Moist Mucosa Neck: Supple, No JVD Lungs: Diminished, Normal air movement, No rhonchi, No wheeze, No rales Cardiovascular: Regular rate, Regular Rhythm, Normal S1, Normal S2, No murmurs Abdomen: Soft, Non Tender, Non-Distended, No Hepato-splenomegaly Extremities: No edema, Capillary Refill Less than 3 Seconds Skin: No rashes, No breakdown Musculoskeletal: No Tenderness to Palpation of Joints or Extremities Neurological: No focal neurological deficits, moves all extremities Psych/Mental Status: Normal Affect, Appropriate Medical Records Data Medical Nutrition Assessment Dietitian: Malnutrition Criteria Met Start: 08/19/25 10:08 Freq: Status: Active Protocol: Document 08/19/25 10:08 SB (Rec: 08/19/25 10:08 SB [id number]) Nutrition Malnutrition Evidence of Yes Malnutrition Exists Malnutrition (severe Chronic ): Evidenced By Suboptimal Energy Intake (Severe),Weight Loss (Severe), Physical Changes (Severe) Intake Problem Increased Nutrient Needs (specify) Etiology (protein) related to wound healing Signs/Symptoms as evidenced by pressure injury on coccyx. Status Active Problem Clinical Problem Chronic Disease or Condition Related Malnutrition Etiology severe protein calorie malnutrition related to inadequate energy intake and increased energy expenditure due to lung cancer Signs/Symptoms as evidenced by PO meeting <75% of estimated nutrition needs x 3-4 days, 20% unintentional weight loss x 8 months, and severe muscle/fat wasting in clavicle, temples, and orbital regions. Status Active Problem Recommendation Dietitian Adjust to liberal regular diet due to signs and Recommendations/ symptoms of malnutrition. Changes Continue cesar BID with breakfast and dinner to promote wound healing. Will continue 120ml glucerna shake TID with medpass. When discharged: recommend pt follow a liberal regular diet. Weight / BMI Weight Weight: 138 lb 3.677 oz Body Mass Index (BMI) 18.2 ABG / Lab / Microbiology Data 08/18/25 05:42 08/18/25 05:42 Laboratory: Laboratory Results - last 24 hr 08/18/25 17:00: POC Glucose 183 H 08/18/25 21:36: POC Glucose 174 H 08/19/25 00:33: Vancomycin Trough 25.0 H 08/19/25 06:19: POC Glucose 166 H 08/19/25 11:09: POC Glucose 214 H 08/19/25 12:29: Random Vancomycin 16.3 H Microbiology: Microbiology 08/15/25 22:30 Urine, Catheterized Urine Culture - Final Culture exhibits no growth. 08/15/25 21:36 Blood Culture (Wb) - Anticubital Left Blood Culture - Preliminary No growth in 48 hours. 08/15/25 20:49 Blood Culture (Wb) - Anticubital Left Blood Culture - Preliminary No growth in 48 hours. 08/16/25 06:00 Mucosa - Nose Respiratory Panel (PCR) - Final 08/15/25 22:30 Urine Catheter - [place] Legionella Antigen - Final 08/15/25 22:30 Urine Catheter - [place] Streptococcus pneumoniae Antigen (M - Final D/C Instructions DC O2, CPAP, BIPAP Needs Home O2 Discharge instructions: No Meaningful Use Info Meaningful Use Meaningful Use Diagnoses (Choose all that apply): None applicable Discharge Plan Admission Admit Date/Time: 08/15/25 23:30 Attending Provider: Valdez Mishra Primary Care Provider: Hubert Hagen Consulting Providers: Johanne Evans Discharge Orders/Prescriptions Prescriptions: New levofloxacin 750 mg tablet 750 mg PO DAILY Qty: 3 0RF Continued gabapentin 300 MG capsule 300 mg PO TID cyclobenzaprine 10 mg Tablet 10 mg PO TID PRN (Reason: muscle spasms) amlodipine 5 mg Tablet 10 mg PO QHS budesonide-formoterol [Symbicort] 80-4.5 mcg/actuation Hfa Aerosol Inhaler 2 puff INHALATION BID aspirin 81 mg Tablet,Delayed Release (Dr/Ec) 81 mg PO DAILY sildenafil 100 mg Tablet 100 mg PO DAILY PRN (Reason: Erectile Dysfunction) atorvastatin 80 mg tablet 80 mg PO QHS Qty: 90 0RF insulin aspart U-100 [Novolog FlexPen U-100 Insulin] 100 unit/mL (3 mL) insulin pen 10 unit subcut TIDCM ropinirole 1 mg tablet 1 mg PO QHS insulin glargine [Lantus Solostar U-100 Insulin] 100 unit/mL (3 mL) insulin pen 10 unit subcut QPM Rx Instructions: PT STATES USES 10-15U QHS magnesium hydroxide [Gentle Laxative (mag hydrox)] 400 mg/5 mL suspension 5 ml PO DAILY PRN (Reason: constipation) omeprazole 20 mg capsule,delayed release(DR/EC) 20 mg PO DAILY sennosides-docusate sodium [Senna with Docusate Sodium] 8.6-50 mg tablet 2 tab-cap PO DAILY melatonin 3 mg tablet 3 mg PO QHS polyethylene glycol 3350 17 gram powder in packet 17 g PO DAILY ferrous sulfate [Feosol] 325 mg (65 mg iron) tablet 325 mg PO .every other day lidocaine 5 % adhesive patch,medicated 2 patch topical DAILY PRN (Reason: pain) Rx Instructions: leave on most painful area for up to 12 hrs cyclopentolate 2 % drops 1 drp LEFT EYE QHS calcium carbonate 500 mg calcium (1,250 mg) tablet 1,500 mg PO DAILY polyvinyl alcohol-povidone 1.4-0.6 % drops 1 drp ophthalmic (eye) 4X/DAY Rx Instructions: 1 drop each eye; prednisolone acetate 1 % drops,suspension 1 drp LEFT EYE Q6H tiotropium-olodaterol 2.5-2.5 mcg/actuation mist 2 puff inhalation DAILY nicotine [Nicoderm CQ] 14 mg/24 hr patch 24 hour 1 patch transdermal DAILY Rx Instructions: apply every morning and remove at HS albuterol 90 mcg/actuation aerosol 90 mcg inhalation Q4H PRN acetaminophen 500 mg Tablet 1,000 mg PO Q8 PRN (Reason: fever or pain) Rx Instructions: 1 g every 8 hourly for 1 week and then Q8 hourly as needed for severe pain Eliquis 5 mg Tablet 2.5 mg PO Q12H Rx Instructions: Start from 07/08/2025. Discontinue if platelet count drops less than 50,000 or hemoglobin less than 8 g% Referrals / Follow Up: Hubert Hagen MD [Primary Care Provider, Family Practice] Disposition Disposition (needs filled in before D/C Order can be placed): Residential Facility Charges/Coding Visit Charges Inpatient E&M: 57103 Disch Hosp >30min
--- NOTE | 2025-08-19 14:50 | PHA.DC.MR.R ---
Pharmacy [place] Med Reconciliation Pharmacy Service has performed discharge medication reconciliation for this patient. The patient's discharge medication list was reviewed for discrepancies and discrepancies were resolved. Medications at Discharge Home Medications gabapentin 300 mg capsule 300 mg PO TID neuropathy 02/24/15 amlodipine 5 mg tablet 10 mg PO QHS blood pressure 05/09/21 aspirin 81 mg tablet,delayed release 81 mg PO DAILY heart health 05/09/21 budesonide-formoterol HFA 80 mcg-4.5 mcg/actuation aerosol inhaler (Symbicort) 2 puff inhalation BID COPD 05/09/21 cyclobenzaprine 10 mg tablet 10 mg PO TID PRN muscle spasms 05/09/21 sildenafil 100 mg tablet 100 mg PO DAILY PRN Erectile Dysfunction 05/09/21 atorvastatin 80 mg tablet 80 mg PO QHS cholesterol #90 tabs 05/12/21 insulin aspart U-100 100 unit/mL (3 mL) subcutaneous pen (Novolog FlexPen U-100 Insulin aspart) 10 unit subcut TIDCM DM 12/12/24 insulin glargine 100 unit/mL (3 mL) subcutaneous pen (Lantus Solostar U-100 Insulin) 10 unit subcut QPM Dm 05/04/25 magnesium hydroxide 400 mg/5 mL oral suspension (Gentle Laxative (magnesium hydroxide)) 5 ml PO DAILY PRN constipation 05/04/25 ropinirole 1 mg tablet 1 mg PO QHS rls 05/04/25 albuterol 90 mcg/actuation aerosol inhaler 90 mcg inhalation Q4H PRN sob 07/04/25 calcium carbonate 1,500 mg PO DAILY supplement 07/04/25 cyclopentolate 2 % eye drops 1 drp LEFT EYE QHS inflamation 07/04/25 ferrous sulfate 325 mg (65 mg iron) tablet (Feosol) 325 mg PO .every other day supplement 07/04/25 lidocaine 5 % topical patch 2 patch topical DAILY PRN pain 07/04/25 melatonin 3 mg tablet 3 mg PO QHS sleep 07/04/25 nicotine 14 mg/24 hr daily transdermal patch (Nicoderm CQ) 1 patch transdermal DAILY smoking cessation 07/04/25 polyethylene glycol 3350 17 gram oral powder packet 17 g PO DAILY constipation 07/04/25 polyvinyl alcohol-povidone 1.4 %-0.6 % eye drops 1 drp ophthalmic (eye) 4X/DAY dry eye 07/04/25 prednisolone acetate 1 % eye drops,suspension 1 drp LEFT EYE Q6H inflamation 07/04/25 sennosides 8.6 mg-docusate sodium 50 mg tablet (Senna with Docusate Sodium) 2 tab-cap PO DAILY stool softener 07/04/25 tiotropium 2.5 mcg-olodaterol 2.5 mcg/actuation mist for inhalation 2 puff inhalation DAILY asthma 07/04/25 acetaminophen 500 mg tablet 1,000 mg PO Q8 PRN fever or pain 08/06/25 apixaban 5 mg tablet (Eliquis) 2.5 mg PO Q12H 08/06/25 omeprazole 20 mg capsule,delayed release 20 mg PO DAILY 08/15/25 levofloxacin 750 mg tablet 750 mg PO DAILY #3 tabs 08/19/25
--- NOTE | 2025-08-19 15:58 | CASEMGMT ---
Social Work SW emailed the patient's daughter the information on his new [facility]. TYLER Guzman
== END 2025-08-19 17:28 | disposition skilled nursing facility (03) | DRG 193 ==
LOC: ED 23:14 → PCU 08-16 00:02
PROVIDERS: Internal Medicine; Admitting Provider Family Medicine; Emergency Provider Emergency Medicine; PCP Family Medicine; Visit Provider Family Medicine
DX: J18.8 Other pneumonia, unspecified organism (principal); G93.41 Metabolic encephalopathy; E43 Unspecified severe protein-calorie malnutrition; E87.20 Acidosis, unspecified; C34.91 Malignant neoplasm of unspecified part of right bronchus or lung; J44.0 Chronic obstructive pulmonary disease with (acute) lower respiratory infection; R65.10 Systemic inflammatory response syndrome (SIRS) of non-infectious origin without acute organ dysfunction; Z68.1 Body mass index [BMI] 19.9 or less, adult; D63.0 Anemia in neoplastic disease; E11.40 Type 2 diabetes mellitus with diabetic neuropathy, unspecified; I12.9 Hypertensive chronic kidney disease with stage 1 through stage 4 chronic kidney disease, or unspecified chronic kidney disease; E11.22 Type 2 diabetes mellitus with diabetic chronic kidney disease; D50.9 Iron deficiency anemia, unspecified; K21.9 Gastro-esophageal reflux disease without esophagitis; N18.2 Chronic kidney disease, stage 2 (mild); E78.5 Hyperlipidemia, unspecified; Z79.01 Long term (current) use of anticoagulants; Z87.891 Personal history of nicotine dependence; Z86.73 Personal history of transient ischemic attack (TIA), and cerebral infarction without residual deficits; Z79.899 Other long term (current) drug therapy; Z79.82 Long term (current) use of aspirin; Z79.51 Long term (current) use of inhaled steroids; Z92.21 Personal history of antineoplastic chemotherapy
CPT/HCPCS: 36415; 51702; 71045; 80048; 80053; 80202; 81001; 82962; 83605; 83735; 84100; 85025; 85610; 85730; 87040; 87086; 87449; 87633; 93005; 94640; 94668; 97162; 97166; 97530; 97803; 99285; A4216; J0696; J3470

== ENCOUNTER → 2025-08-24 | Outpatient (REF) | payer OTHER, SELFPAY ==
[2025-08-24 07:55] LABS: Hematocrit 24.0 % (40-54); Hemoglobin 7.3 g/dL (13.0-16.5); Mean Corp Hgb Conc 30.4 g/dL (32-36); Mean Corpuscular Volume 70.4 fL (80-94); Mean Platelet Vol. 9.3 fl (6.2-12.0); POSITIVE MORPHOLOGY YES; Platelet Count 340 K/mm3 (150-450); RBC Distribution Width CV 20.6 % (11.6-14.6); RBC Distribution Width SD 52.4 fl (35.1-43.9); Red Blood Count 3.41 M/mm3 (4.6-6.2); White Blood Count 11.3 K/mm3 (4.4-11.0)
[2025-08-24 07:59] LABS: Scan Indicated on CBC? Y/N YES- FLAGS NOTED
[2025-08-24 08:22] LABS: Differential Comment SCANNED
[2025-08-24 08:30] LABS: Cholesterol 68 mg/dL (<=200); Low Density Lipoprotein Calc. 21 mg/dL; T4 Total, Thyroxin 6.1 ug/dL (4.5-12.1); Triglycerides 76 mg/dL; Very Low Density Lipoprotein 15 mg/dL (5-40); Vitamin B12 603 pg/mL (180-914); cholesterol:hdl ratio screen 2.12
[2025-08-24 08:32] LABS: AST(SGOT) 23 U/L (<=37); Alanine Aminotransfer ALT/SGPT 10 U/L (<=46); Albumin, Serum 3.2 g/dL (3.4-4.8); Alkaline Phosphatase 127 U/L (40-129); Anion Gap 10 (5-15); BUN 27 mg/dL (4-19); BUN/Creat Ratio 21.6 RATIO (10-20); Calcium,Total 9.2 mg/dL (7.6-11.0); Carbon Dioxide 23.1 mmol/L (21.0-32.0); Chloride 105 mmol/L (98-108); Globulin 4.3 g/dL (2.2-4.2); Glucose 137 mg/dL (70-99); Potassium 4.3 mmol/L (3.3-5.1)
== END ==
LOC: OLS.SW 05:00
PROVIDERS: PCP Family Medicine; Visit Provider Family Medicine
DX: Z13.0 Encounter for screening for diseases of the blood and blood-forming organs and certain disorders involving the immune mechanism (principal); E11.9 Type 2 diabetes mellitus without complications; E43 Unspecified severe protein-calorie malnutrition; J18.9 Pneumonia, unspecified organism; J44.0 Chronic obstructive pulmonary disease with (acute) lower respiratory infection; K74.60 Unspecified cirrhosis of liver
CPT/HCPCS: 36415; 80053; 80061; 82607; 83036; 84436; 84443; 85027

== ENCOUNTER → 2025-08-26 05:00 | Outpatient (REF) | payer OTHER, SELFPAY ==
[2025-08-26 09:13] LABS: Creatinine, Urine (random) 61.90 mg/dL (39.00-259.00); Microalbumin,Random Urine 131.0 mg/L (<20 mg/L)
== END ==
LOC: OLS.SW 05:00
PROVIDERS: PCP Family Medicine; Visit Provider Family Medicine
DX: Z13.0 Encounter for screening for diseases of the blood and blood-forming organs and certain disorders involving the immune mechanism (principal)
CPT/HCPCS: 36415; 82043; 82570

== ENCOUNTER → 2025-08-27 06:20 | Outpatient (REF) | payer OTHER, SELFPAY ==
[2025-08-27 07:56] LABS: Hematocrit 25.4 % (40-54); Hemoglobin 7.7 g/dL (13.0-16.5); Mean Corp Hgb Conc 30.3 g/dL (32-36); Mean Corpuscular Volume 71.1 fL (80-94); Mean Platelet Vol. 9.4 fl (6.2-12.0); POSITIVE MORPHOLOGY YES; Platelet Count 361 K/mm3 (150-450); RBC Distribution Width CV 20.5 % (11.6-14.6); RBC Distribution Width SD 52.5 fl (35.1-43.9); Red Blood Count 3.57 M/mm3 (4.6-6.2); White Blood Count 11.5 K/mm3 (4.4-11.0)
[2025-08-27 07:57] LABS: Scan Indicated on CBC? Y/N YES- FLAGS NOTED
== END ==
LOC: OLS.SW 06:20
PROVIDERS: PCP Family Medicine; Visit Provider Family Medicine
DX: D50.9 Iron deficiency anemia, unspecified (principal); E43 Unspecified severe protein-calorie malnutrition
CPT/HCPCS: 85027

== ENCOUNTER → 2025-09-07 05:45 | Outpatient (REF) | payer OTHER, SELFPAY ==
[2025-09-07 09:29] LABS: Hematocrit 23.1 % (40-54); Hemoglobin 6.9 g/dL (13.0-16.5); Immature Granulocytes Count 0.050 X10^3/uL (0.0-0.0); Mean Corp Hgb Conc 29.9 g/dL (32-36); Mean Corpuscular Volume 71.1 fL (80-94); Mean Platelet Vol. 9.6 fl (6.2-12.0); NRBC Flagged by Analyzer 0 % (0-5); Platelet Count 405 K/mm3 (150-450); RBC Distribution Width CV 19.8 % (11.6-14.6); RBC Distribution Width SD 50.4 fl (35.1-43.9); Red Blood Count 3.25 M/mm3 (4.6-6.2); White Blood Count 11.3 K/mm3 (4.4-11.0)
== END ==
LOC: OLS.SW 05:45
PROVIDERS: PCP Family Medicine; Visit Provider Family Medicine
DX: J18.9 Pneumonia, unspecified organism (principal); D64.9 Anemia, unspecified; J44.9 Chronic obstructive pulmonary disease, unspecified; E46 Unspecified protein-calorie malnutrition; E03.9 Hypothyroidism, unspecified; E11.9 Type 2 diabetes mellitus without complications
CPT/HCPCS: 36415; 85025

== ENCOUNTER 2025-09-07 13:53 | Emergency (ER) | payer OTHER, SELFPAY ==
[2025-09-07] VITALS (14 sets, daily range): BP systolic 111–157; BP diastolic 66–100; PULSE 98–108; RESP 16–30; TEMP 36.7–37.1; O2SAT 96–100; BMI 17.9
--- NOTE | 2025-09-07 14:39 | EDS_ITS ---
HPI History of Present Illness Chief Complaint: Abn Labs Informant: patient, family and EMS Narrative Narrative: Patient is a 75-year-old male with a history of lung cancer and a in a SNF due to recovery from ORIF recent hip fracture, presenting with abnormal labs - low Hgb. - Patient reports melena for the past couple of weeks. - Denies hematochezia. - Denies abdominal pain. - Has not discussed melena with any healthcare providers. - Reports feeling a little bit more fatigued than usual. - Denies dyspnea. - Currently on Eliquis; unsure of the reason for initiation. - Denies history of CVA or DVT/PE. - Family thinks history of AFib a few weeks ago. - History of lung cancer. - Resides in [place] [facility] due to a hip fracture; reports hip pain but is able to ambulate. [facility] Medical History Fall Closed intertrochanteric fracture of right hip CKD (chronic kidney disease), stage II Chronic anemia Cancer of right lung Anxiety and depression GERD (gastroesophageal reflux disease) Cirrhosis Former smoker TIA (transient ischemic attack) Kidney stones Neuropathy PTSD (post-traumatic stress disorder) Hepatitis COPD (chronic obstructive pulmonary disease) Hypertension Diabetes Home Medications ?Medication ?Instructions ?Recorded ?Last Taken ?Type gabapentin 300 mg capsule 300 mg PO TID neuropathy 01/0907/02/25 21:00 History amlodipine 5 mg tablet 10 mg PO QHS blood pressure 05/09/21 07/02/25 21:00 History 10 mg aspirin 81 mg tablet,delayed 81 mg PO DAILY heart heal th 05/09/21 07/02/25 History release budesonide-formoterol HFA 80 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 05/09/21 07/02/25 History mcg-4.5 mcg/actuation aerosol inhaler (Symbicort) cyclobenzaprine 10 mg tablet 10 mg PO TID PRN muscle s pasms 05/09/21 07/02/25 History sildenafil 100 mg tablet 100 mg PO DAILY PRN Erectile 05/09/21 07/02/25 History Dysfunction atorvastatin 80 mg tablet 80 mg PO QHS cholesterol #90 tabs 05/12/21 07/02/25 21:00 Rx insulin aspart U-100 100 unit/mL 10 unit subcut TIDCM DM 12/12/24 07/02/25 History (3 mL) subcutaneous pen (Novolog FlexPen U-100 Insulin aspart) insulin glargine 100 unit/mL (3 10 unit subcut QPM Dm 05/04/25 07/02/25 History mL) subcutaneous pen (Lantus Solostar U-100 Insulin) magnesium hydroxide 400 mg/5 mL 5 ml PO DAILY PRN cons tipation 05/04/25 07/02/25 History oral suspension (Gentle Laxative (magnesium hydroxide)) ropinirole 1 mg tablet 1 mg PO QHS rls 05/04/2507/19 History albuterol 90 mcg/actuation aerosol 90 mcg inhalation Q 4H PRN sob 07/04/25 Unknown History inhaler calcium carbonate 1,500 mg PO DAILY supplement 07/04/25 07/02/25 History cyclopentolate 2 % eye drops 1 drp LEFT EYE QHS inflam ation 07/04/25 07/02/25 History ferrous sulfate 325 mg (65 mg 325 mg PO .every other d ay 07/04/25 Unknown Histo ry iron) tablet (Feosol) supplement lidocaine 5 % topical patch 2 patch topical DAILY PRN pain 07/04/25 Unknown History melatonin 3 mg tablet 3 mg PO QHS sleep 07/04/25 0 07/02/25 History nicotine 14 mg/24 hr daily 1 patch transdermal DAILY s moking 07/04/25 Unknown History transdermal patch (Nicoderm CQ) cessation polyethylene glycol 3350 17 gram 17 g PO DAILY constip ation 07/04/25 07/02/25 History oral powder packet polyvinyl alcohol-povidone 1.4 1 drp ophthalmic (eye) 4X/DAY dry 07/04/25 07/02/25 History %-0.6 % eye drops eye prednisolone acetate 1 % eye 1 drp LEFT EYE Q6H inflam ation 07/04/25 07/02/25 History drops,suspension sennosides 8.6 mg-docusate sodium 2 tab-cap PO DAILY s tool softener 07/04/25 06/25/25 History 50 mg tablet (Senna with Docusate Sodium) tiotropium 2.5 mcg-olodaterol 2.5 2 puff inhalation DA MANDO asthma 07/04/25 07/02/25 History mcg/actuation mist for inhalation acetaminophen 500 mg tablet 1,000 mg PO Q8 PRN fever o r pain 08/06/25 Unknown History apixaban 5 mg tablet (Eliquis) 2.5 mg PO Q12H 08/06/25 Unknown History omeprazole 20 mg capsule,delayed 20 mg PO DAILY Unknown History release levofloxacin 750 mg tablet 750 mg PO DAILY #3 tabs Unknown Rx Allergy/AdvReac Type Severity Reaction Status Date / Time No Known Allergies Allergy Verified 09/07/25 13:54 Family History Mother CVA (cerebral vascular accident) Family History other Surgical History Hx of appendectomy Social History household members: none housing: apartment Smoking Status: Former smoker alcohol intake: never substance use type: does not use ROS ROS ED Constitutional Constitutional ED: Reports fatigue; Denies chills or fever(s) Eyes Eyes: Denies change in vision or diplopia ENT ENT ED: Denies rhinorrhea or sore throat Cardiovascular Cardiovascular: Denies chest pain or palpitations Respiratory/Chest Respiratory/Chest: Denies cough or dyspnea Gastrointestinal Gastrointestinal: Reports melena; Denies abdominal pain, diarrhea, hematemesis, hematochezia, nausea, rectal bleeding or vomiting Genitourinary Genitourinary ED: Denies dysuria or hematuria Musculoskeletal Musculoskeletal: Reports other Details: right hip pain, since surgery, improving ; Denies back pain or neck pain Integumentary Denies abscess or rash Neurologic Neurologic: Denies headache(s), paresthesias or weakness Psychiatric Psychiatric: Denies anxiety or suicidal thoughts EXAM Physical Exam Const Vital Signs: 09/07/25 13:54 09/07/25 13:57 Temperature 98.6 F Temperature Source Oral Pulse Rate 108 H Respiratory Rate 18 Respiratory Effort Normal Respiratory Pattern Normal Blood Pressure 111/66 Blood Pressure Mean 81 Pulse Ox 98 Oxygen Delivery Method Room Air Positive well nourished and well developed Constitutional Narrative: well-appearing General Appearance ED: well developed and NAD HEENT Reports moist mucous membranes normocephalic and atraumatic Eyes PERRL and EOMs intact bilaterally Neck full ROM and supple Resp normal respiratory effort and clear to auscultation bilaterally Cardio regular rate, regular rhythm and no murmurs GI non-tender and non-distended GI Narrative: Dark brown soft stool no blood no rectal tenderness Auscultation: hyperactive bowel sounds Palpation: soft Back/Spine no CVA tenderness General Back: other FROM Extremity normal to inspection General Extremety ED: Negative for edema, pulses abnormal or tenderness General Extremity: Negative for edema or pulses abnormal Neuro oriented x3, CN's II-XII intact bilaterally and no sensory deficits noted Sensorium / Orientation: awake and alert Motor Exam: strength 5/5 throughout Skin no rashes or lesions noted and no wounds Discharge Plan Triage Chief Complaint: Abn Labs ED Provider: Nathan Catherine Dx/Rx/DC Orders Prescriptions: No Action gabapentin 300 MG capsule 300 mg PO TID cyclobenzaprine 10 mg Tablet 10 mg PO TID PRN (Reason: muscle spasms) amlodipine 5 mg Tablet 10 mg PO QHS budesonide-formoterol [Symbicort] 80-4.5 mcg/actuation Hfa Aerosol Inhaler 2 puff INHALATION BID aspirin 81 mg Tablet,Delayed Release (Dr/Ec) 81 mg PO DAILY sildenafil 100 mg Tablet 100 mg PO DAILY PRN (Reason: Erectile Dysfunction) atorvastatin 80 mg tablet 80 mg PO QHS Qty: 90 0RF insulin aspart U-100 [Novolog FlexPen U-100 Insulin] 100 unit/mL (3 mL) insulin pen 10 unit subcut TIDCM ropinirole 1 mg tablet 1 mg PO QHS insulin glargine [Lantus Solostar U-100 Insulin] 100 unit/mL (3 mL) insulin pen 10 unit subcut QPM Rx Instructions: PT STATES USES 10-15U QHS magnesium hydroxide [Gentle Laxative (mag hydrox)] 400 mg/5 mL suspension 5 ml PO DAILY PRN (Reason: constipation) omeprazole 20 mg capsule,delayed release(DR/EC) 20 mg PO DAILY levofloxacin 750 mg tablet 750 mg PO DAILY Qty: 3 0RF sennosides-docusate sodium [Senna with Docusate Sodium] 8.6-50 mg tablet 2 tab-cap PO DAILY melatonin 3 mg tablet 3 mg PO QHS polyethylene glycol 3350 17 gram powder in packet 17 g PO DAILY ferrous sulfate [Feosol] 325 mg (65 mg iron) tablet 325 mg PO .every other day lidocaine 5 % adhesive patch,medicated 2 patch topical DAILY PRN (Reason: pain) Rx Instructions: leave on most painful area for up to 12 hrs cyclopentolate 2 % drops 1 drp LEFT EYE QHS calcium carbonate 500 mg calcium (1,250 mg) tablet 1,500 mg PO DAILY polyvinyl alcohol-povidone 1.4-0.6 % drops 1 drp ophthalmic (eye) 4X/DAY Rx Instructions: 1 drop each eye; prednisolone acetate 1 % drops,suspension 1 drp LEFT EYE Q6H tiotropium-olodaterol 2.5-2.5 mcg/actuation mist 2 puff inhalation DAILY nicotine [Nicoderm CQ] 14 mg/24 hr patch 24 hour 1 patch transdermal DAILY Rx Instructions: apply every morning and remove at HS albuterol 90 mcg/actuation aerosol 90 mcg inhalation Q4H PRN acetaminophen 500 mg Tablet 1,000 mg PO Q8 PRN (Reason: fever or pain) Rx Instructions: 1 g every 8 hourly for 1 week and then Q8 hourly as needed for severe pain Eliquis 5 mg Tablet 2.5 mg PO Q12H Rx Instructions: Start from 07/08/2025. Discontinue if platelet count drops less than 50,000 or hemoglobin less than 8 g% Primary Care Provider: Hubert Hagen Referrals: Hubert Hagen MD [Primary Care Provider, Family Practice] Print Language: Palauan
--- NOTE | 2025-09-07 14:39 | EX.ED.DYSGE1 ---
HPI History of Present Illness Chief Complaint: Abn Labs Informant: patient, family and EMS Narrative Narrative: Patient is a 75-year-old male with a history of lung cancer and a in a SNF due to recovery from ORIF recent hip fracture, presenting with abnormal labs - low Hgb. - Patient reports melena for the past couple of weeks. - Denies hematochezia. - Denies abdominal pain. - Has not discussed melena with any healthcare providers. - Reports feeling a little bit more fatigued than usual. - Denies dyspnea. - Currently on Eliquis; unsure of the reason for initiation. - Denies history of CVA or DVT/PE. - Family thinks history of AFib a few weeks ago. - History of lung cancer. - Resides in a fpc due to a hip fracture; reports hip pain but is able to ambulate. [facility] Medical History Fall Closed intertrochanteric fracture of right hip CKD (chronic kidney disease), stage II Chronic anemia Cancer of right lung Anxiety and depression GERD (gastroesophageal reflux disease) Cirrhosis Former smoker TIA (transient ischemic attack) Kidney stones Neuropathy PTSD (post-traumatic stress disorder) Hepatitis COPD (chronic obstructive pulmonary disease) Hypertension Diabetes Home Medications ?Medication ?Instructions ?Recorded ?Last Taken ?Type gabapentin 300 mg capsule 300 mg PO TID neuropathy 02/24/15 07/02/25 21:00 History amlodipine 5 mg tablet 10 mg PO QHS blood pressure 05/09/21 07/02/25 21:00 History 10 mg aspirin 81 mg tablet,delayed 81 mg PO DAILY heart health 05/09/21 07/02/25 History release budesonide-formoterol HFA 80 2 puff inhalation BID COPD 05/09/21 07/02/25 History mcg-4.5 mcg/actuation aerosol inhaler (Symbicort) cyclobenzaprine 10 mg tablet 10 mg PO TID PRN muscle spasms 05/09/21 07/02/25 History sildenafil 100 mg tablet 100 mg PO DAILY PRN Erectile 05/09/21 07/02/25 History Dysfunction atorvastatin 80 mg tablet 80 mg PO QHS cholesterol #90 tabs 05/12/21 07/02/25 21:00 Rx insulin aspart U-100 100 unit/mL 10 unit subcut TIDCM DM 12/12/24 07/02/25 History (3 mL) subcutaneous pen (Novolog FlexPen U-100 Insulin aspart) insulin glargine 100 unit/mL (3 12 unit subcut QPM Dm 05/04/25 07/02/25 History mL) subcutaneous pen (Lantus Solostar U-100 Insulin) magnesium hydroxide 400 mg/5 mL 5 ml PO DAILY PRN constipation 05/04/25 07/02/25 History oral suspension (Gentle Laxative (magnesium hydroxide)) ropinirole 1 mg tablet 1 mg PO QHS rls 05/04/25 07/02/25 History albuterol 90 mcg/actuation aerosol 90 mcg inhalation Q4H PRN sob 07/04/25 Unknown History inhaler calcium carbonate 1,500 mg PO DAILY supplement 07/04/25 07/02/25 History cyclopentolate 2 % eye drops 1 drp LEFT EYE QHS inflamation 07/04/25 07/02/25 History ferrous sulfate 325 mg (65 mg 325 mg PO .every other day 07/04/25 Unknown History iron) tablet (Feosol) supplement lidocaine 5 % topical patch 2 patch topical DAILY PRN pain 07/04/25 Unknown History melatonin 3 mg tablet 3 mg PO QHS sleep 07/04/25 07/02/25 History nicotine 14 mg/24 hr daily 1 patch transdermal DAILY smoking 07/04/25 Unknown History transdermal patch (Nicoderm CQ) cessation polyethylene glycol 3350 17 gram 17 g PO DAILY constipation 07/04/25 07/02/25 History oral powder packet polyvinyl alcohol-povidone 1.4 1 drp ophthalmic (eye) 4X/DAY dry 07/04/25 07/02/25 History %-0.6 % eye drops eye prednisolone acetate 1 % eye 1 drp LEFT EYE Q6H inflamation 07/04/25 07/02/25 History drops,suspension sennosides 8.6 mg-docusate sodium 2 tab-cap PO DAILY stool softener 07/04/25 06/25/25 History 50 mg tablet (Senna with Docusate Sodium) acetaminophen 500 mg tablet 1,000 mg PO Q8 PRN fever or pain 08/06/25 Unknown History metoprolol succinate 25 mg 12.5 mg PO DAILY 09/07/25 Unknown History tablet,extended release 24 hr omeprazole 40 mg capsule,delayed 40 mg PO BID 09/07/25 Unknown History release oxycodone 5 mg capsule 5 mg PO Q12H PRN pain 09/07/25 Unknown History oxycodone 5 mg tablet 5 mg PO Q12H pain 09/07/25 Unknown History umeclidinium 62.5 mcg-vilanterol 1 inh inhalation DAILY 09/07/25 Unknown History 25 mcg/actuation powdr for inhalation (Anoro Ellipta) Allergy/AdvReac Type Severity Reaction Status Date / Time No Known Allergies Allergy Verified 09/07/25 13:54 Family History Mother CVA (cerebral vascular accident) Family History other Surgical History Hx of appendectomy Social History household members: none housing: apartment Smoking Status: Former smoker alcohol intake: never substance use type: does not use ROS ROS ED Constitutional Constitutional ED: Reports fatigue; Denies chills or fever(s) Eyes Eyes: Denies change in vision or diplopia ENT ENT ED: Denies rhinorrhea or sore throat Cardiovascular Cardiovascular: Denies chest pain or palpitations Respiratory/Chest Respiratory/Chest: Denies cough or dyspnea Gastrointestinal Gastrointestinal: Reports melena; Denies abdominal pain, diarrhea, hematemesis, hematochezia, nausea, rectal bleeding or vomiting Genitourinary Genitourinary ED: Denies dysuria or hematuria Musculoskeletal Musculoskeletal: Reports other Details: right hip pain, since surgery, improving ; Denies back pain or neck pain Integumentary Denies abscess or rash Neurologic Neurologic: Denies headache(s), paresthesias or weakness Psychiatric Psychiatric: Denies anxiety or suicidal thoughts EXAM Physical Exam Const Vital Signs: 09/07/25 13:54 09/07/25 13:57 09/07/25 14:53 Temperature 98.6 F Temperature Source Oral Pulse Rate 108 H 100 Respiratory Rate 18 22 H Respiratory Effort Normal Respiratory Pattern Normal Blood Pressure 111/66 132/70 H Blood Pressure Mean 81 90 Blood Pressure Source Blood Pressure Position Blood Pressure Location Pulse Ox 98 100 Oxygen Delivery Method Room Air 09/07/25 16:00 09/07/25 16:15 09/07/25 16:30 Temperature 98.2 F 98.3 F Temperature Source Oral Oral Pulse Rate 101 H 98 101 H Respiratory Rate 21 H 19 H 22 H Respiratory Effort Respiratory Pattern Blood Pressure 137/71 H 137/71 H 140/76 H Blood Pressure Mean 93 93 97 Blood Pressure Source Monitor Monitor Blood Pressure Position Semi-Fowlers Semi-Fowlers Blood Pressure Location Left Arm Left Arm Pulse Ox 100 99 96 Oxygen Delivery Method Room Air Room Air Room Air Positive well nourished and well developed Constitutional Narrative: well-appearing General Appearance ED: well developed and NAD HEENT Reports moist mucous membranes normocephalic and atraumatic Eyes PERRL and EOMs intact bilaterally Neck full ROM and supple Resp normal respiratory effort and clear to auscultation bilaterally Cardio regular rate, regular rhythm and no murmurs GI non-tender and non-distended GI Narrative: Dark brown soft stool no blood no rectal tenderness Auscultation: hyperactive bowel sounds Palpation: soft Back/Spine no CVA tenderness General Back: other FROM Extremity normal to inspection General Extremety ED: Negative for edema, pulses abnormal or tenderness General Extremity: Negative for edema or pulses abnormal Neuro oriented x3, CN's II-XII intact bilaterally and no sensory deficits noted Sensorium / Orientation: awake and alert Motor Exam: strength 5/5 throughout Skin no rashes or lesions noted and no wounds MDM MDM MDM Narrative Medical decision making narrative: Assessment: The patient is a 75-year-old male with PMH of chronic iron-deficiency anemia and chronic kidney disease presenting for symptomatic anemia after outpatient labs showed ?low blood counts.? He reports two weeks of black, tarry stools and is currently taking apixaban (low dose, but cirrhosis may also be increasing serum levels/clinical effect). Physical exam shows no abdominal tenderness. Bedside fecal occult blood test is positive, supporting upper gastrointestinal bleeding as the source of chronic blood loss. Given gradual decline in counts, stable vitals, good renal function, and positive stool test while on anticoagulation, upper GI bleed with acute on chronic blood loss anemia is the most likely etiology. Plan: - Held Eliquis permanently due to active GI bleeding risk - Transfused 2 units PRBC with informed consent to treat symptomatic anemia - Continued twice-daily PPI already prescribed for prior upper GI bleed - Discussed hospice considerations with patient and family; patient comfortable with plan - Coordinated discharge back to [facility] once transfusion complete and vitals remain stable Diagnostics: - Fecal occult blood test ? positive - Basic metabolic panel ? kidney function within normal limits - CBC ? low hemoglobin/hematocrit, gradual decline over past 1?2 months Consultations: - Spoke with Dr. Wilbur Orozco (SNF attending) ? agrees with transfusion, discontinuation of Eliquis, and discharge back to facility Reevaluations: - Returned after stool test resulted: patient asymptomatic, vitals stable; discussed positive result and treatment plan, patient agreeable History & Record Review Additional record(s) reviewed:: Prior inpatient record and Prior ED visit Lab Data Attestation: I reviewed the patient's lab results. Labs: Laboratory Results - last 24 hr 09/07/25 09/07/25 14:23 14:24 Sodium 135 Potassium 4.1 Chloride 102 Carbon Dioxide 23.8 Anion Gap 9 BUN 23 H Creatinine 1.08 Estim Creat Clear Calc 49.91 L Est GFR (MDRD) Non-Af 71 BUN/Creatinine Ratio 21.5 H Glucose 195 H Calcium 9.2 Blood Type O POSITIVE Antibody Screen NEGATIVE Crossmatch See Detail Rhythm Strip Rhythm Strip: Sinus Rhythm Rate: 100 Ectopy: None Management Discussion w/another healthcare provider: PCP (Dr. Orozco) Critical Care Time Critical Care Time: Yes Critical care time (excluding procedures): 30-74 minutes (33 min), Including time spent:, Discussing w/Patient &/or Family/Defensive Driving Instructor, Discussing w/Consultants and Performing Direct Patient Care at Bedside Discharge Plan Triage Chief Complaint: Abn Labs ED Provider: Nathan Catherine Dx/Rx/DC Orders Clinical Impression: ABLA (acute blood loss anemia), Acute upper GI bleeding, Anticoagulated on apixaban, CKD (chronic kidney disease), Chronic iron deficiency anemia Instructions: ED Upper GI Bleeding (Stable) Prescriptions: Continued aspirin 81 mg Tablet,Delayed Release (Dr/Ec) 81 mg PO DAILY omeprazole 40 mg capsule,delayed release(DR/EC) 40 mg PO BID Discontinued omeprazole 20 mg capsule,delayed release(DR/EC) 20 mg PO BID Eliquis 5 mg Tablet 2.5 mg PO Q12H Rx Instructions: Start from 07/08/2025. Discontinue if platelet count drops less than 50,000 or hemoglobin less than 8 g% aspirin 81 mg tablet 81 mg PO DAILY No Action gabapentin 300 MG capsule 300 mg PO TID cyclobenzaprine 10 mg Tablet 10 mg PO TID PRN (Reason: muscle spasms) amlodipine 5 mg Tablet 10 mg PO QHS budesonide-formoterol [Symbicort] 80-4.5 mcg/actuation Hfa Aerosol Inhaler 2 puff INHALATION BID sildenafil 100 mg Tablet 100 mg PO DAILY PRN (Reason: Erectile Dysfunction) atorvastatin 80 mg tablet 80 mg PO QHS Qty: 90 0RF insulin aspart U-100 [Novolog FlexPen U-100 Insulin] 100 unit/mL (3 mL) insulin pen 10 unit subcut TIDCM ropinirole 1 mg tablet 1 mg PO QHS insulin glargine [Lantus Solostar U-100 Insulin] 100 unit/mL (3 mL) insulin pen 12 unit subcut QPM Rx Instructions: PT STATES USES 10-15U QHS magnesium hydroxide [Gentle Laxative (mag hydrox)] 400 mg/5 mL suspension 5 ml PO DAILY PRN (Reason: constipation) sennosides-docusate sodium [Senna with Docusate Sodium] 8.6-50 mg tablet 2 tab-cap PO DAILY melatonin 3 mg tablet 3 mg PO QHS polyethylene glycol 3350 17 gram powder in packet 17 g PO DAILY ferrous sulfate [Feosol] 325 mg (65 mg iron) tablet 325 mg PO .every other day lidocaine 5 % adhesive patch,medicated 2 patch topical DAILY PRN (Reason: pain) Rx Instructions: leave on most painful area for up to 12 hrs cyclopentolate 2 % drops 1 drp LEFT EYE QHS calcium carbonate 500 mg calcium (1,250 mg) tablet 1,500 mg PO DAILY polyvinyl alcohol-povidone 1.4-0.6 % drops 1 drp ophthalmic (eye) 4X/DAY Rx Instructions: 1 drop each eye; prednisolone acetate 1 % drops,suspension 1 drp LEFT EYE Q6H nicotine [Nicoderm CQ] 14 mg/24 hr patch 24 hour 1 patch transdermal DAILY Rx Instructions: apply every morning and remove at HS albuterol 90 mcg/actuation aerosol 90 mcg inhalation Q4H PRN acetaminophen 500 mg Tablet 1,000 mg PO Q8 PRN (Reason: fever or pain) Rx Instructions: 1 g every 8 hourly for 1 week and then Q8 hourly as needed for severe pain metoprolol succinate 25 mg tablet extended release 24 hr 12.5 mg PO DAILY oxycodone 5 mg tablet 5 mg PO Q12H umeclidinium-vilanterol [Anoro Ellipta] 62.5-25 mcg/actuation blister with device 1 inh inhalation DAILY oxycodone 5 mg capsule 5 mg PO Q12H PRN (Reason: pain) Primary Care Provider: Wilbur Orozco Referrals: Hubert Hagen MD [Med Staff - Active Staff, Family Practice] Activity Restrictions/Additional Instructions: - Discontinued Eliquis (blood thinner) to reduce further bleeding risk - Received two units of blood to raise your blood counts - Continue taking your proton pump inhibitor (PPI) twice daily for stomach protection - Stool test was positive for blood, indicating gastrointestinal bleeding; no endoscopy is planned at this time - Discharged today back to the intermediate facility; care plan coordinated with Dr. Wilbur Orozco at [facility] Print Language: Belizean Disposition Disposition: Home, Self Care
[2025-09-07 15:43] LABS: Anion Gap 9 (5-15); BUN 23 mg/dL (4-19); BUN/Creat Ratio 21.5 RATIO (10-20); Calcium,Total 9.2 mg/dL (7.6-11.0); Carbon Dioxide 23.8 mmol/L (21.0-32.0); Chloride 102 mmol/L (98-108); Estimated Creatinine Clearance 49.91 ml/min (50-250); Glucose 195 mg/dL (70-99); Potassium 4.1 mmol/L (3.3-5.1)
--- NOTE | 2025-09-07 20:21 | CM.ED ---
Social Work VICKI received a VM from VICKI Hicks with [facility] [place], phone number [phone]. Richar message stated that family was wanting to transfer patient to a [place] SNF on hospice, that Fabiola was getting phone calls from SNFs in [place] that were not [facility] contracted and that she was unable getting ahold of patients family. VICKI spoke with patient who stated he was unhappy with his stay at his current SNF and that he was considering moving to [place] to be closer to his sister, niece and daughter. SW listened to patients concerns and explained that patient was able to make a decision about placement and would be able to work with current SNF staff on transfer. Patients family including sister, niece and daughter to ED. VICKI met with family and also relayed that they would be able to work with [facility] and SNF staff on transfer to a [facility] approved facility. Family and patient expressed understanding. VICKI called Fabiola at [place] and relayed that patient would be returning to SNF this evening and transfer could be facilitated from there. No further needs at this time. Nahomy Conley, HALL MONITOR, STORAGE ARCHITECT
== END 2025-09-07 21:05 | disposition home or self-care (01) ==
PROVIDERS: Emergency Provider Emergency Medicine; Visit Provider Emergency Medicine
DX: D62 Acute posthemorrhagic anemia (principal); J44.9 Chronic obstructive pulmonary disease, unspecified; E11.22 Type 2 diabetes mellitus with diabetic chronic kidney disease; E11.40 Type 2 diabetes mellitus with diabetic neuropathy, unspecified; Z79.4 Long term (current) use of insulin; K92.2 Gastrointestinal hemorrhage, unspecified; N18.2 Chronic kidney disease, stage 2 (mild); Z79.01 Long term (current) use of anticoagulants; Z87.891 Personal history of nicotine dependence; I12.9 Hypertensive chronic kidney disease with stage 1 through stage 4 chronic kidney disease, or unspecified chronic kidney disease; D50.9 Iron deficiency anemia, unspecified; Z85.118 Personal history of other malignant neoplasm of bronchus and lung; Z86.73 Personal history of transient ischemic attack (TIA), and cerebral infarction without residual deficits; Z79.82 Long term (current) use of aspirin; Z79.51 Long term (current) use of inhaled steroids; K21.9 Gastro-esophageal reflux disease without esophagitis; Z90.49 Acquired absence of other specified parts of digestive tract
CPT/HCPCS: 80048; 82274; 86644; 86850; 86900; 86901; 99285; P9016; A4216